=== PATIENT | female | born 1945 | race Caucasian/White ===

== ENCOUNTER → 2018-08-06 14:48 | Outpatient (CLI) | payer MEDICARE, SELFPAY | PROVIDERS: Family Provider Nurse Practitioner; PCP Nurse Practitioner; Visit Provider Nurse Practitioner | DX: Z78.0 Asymptomatic menopausal state (principal) | CPT/HCPCS: 77080 ==

== ENCOUNTER 2020-06-13 07:41 | Emergency (ER) | payer MEDICARE, SELFPAY ==
[2020-04-20 13:17] VITALS: BMI 32.0
[2020-06-13 07:42] VITALS: BP 161/88; PULSE 67; RESP 16; TEMP 36.5; O2SAT 100; BMI 29.9
--- NOTE | 2020-06-13 07:49 | RAD_ITS ---
STUDY: X-RAY CHEST REASON FOR EXAM: Female, 74 years old. Dizziness TECHNIQUE: Single AP portable view of the chest. COMPARISON: Comparison is made with prior study dated April 23, 2016. FINDINGS: EKG electrodes are seen. Mild elevation of the right hemidiaphragm. Mild increased markings at the left lung base suggestive of possible atelectasis. Normal size heart. Normal mediastinum and es. Normal visualized pulmonary arteries. There is atherosclerotic tortuosity of the aortic arch and descending thoracic aorta. There are diffuse degenerative changes of the visualized thoracic spine. Normal visualized ribs, clavicles, and shoulders. There is no demonstrated abnormality of the visualized soft tissue structures of the upper abdomen. RAD/Chest 1 View (Portable) IMPRESSION: Elevation of the right hemidiaphragm. Mild increased markings at the left lung base suggestive of left basilar atelectasis. Electronically Signed: Stew Hill, at 9:33 EDT , Service support ,
--- NOTE | 2020-06-13 07:50 | EKG12_ITS ---
Test Reason : DIZZINESS Blood Pressure : / mmHG Vent. Rate : 061 BPM Atrial Rate : 061 BPM P-R Int : 162 ms QRS Dur : 090 ms QT Int : 454 ms P-R-T Axes : 039 -09 046 degrees QTc Int : 457 ms Normal sinus rhythm Normal ECG Confirmed by SUZAN GARZA, JUAN A ([id number]), science editor DESHAWN MICHAELS ([id number]) on 06/15/2020 9:38:17 AM Referred By: CL Confirmed By:JUAN A MARES MD
--- NOTE | 2020-06-13 07:52 | CT_ITS ---
STUDY: CTA HEAD AND NECK WITH CONTRAST REASON FOR EXAM: Female, 74 years old. DIZZINESS THIS AM, NON CONTRAST BRAIN ALSO PREFORMED RADIATION DOSAGE (If Supplied By Facility): CTDIvol = ( 26.6 ) mGy, DLP = ( 1492.61 ) mGycm TECHNIQUE: CT angiography was performed with a multi-detector CT scanner. Data acquisition was obtained from the skull base through the vertex following intravenous administration of [id number] 100ML. MIP images were reconstructed from the axial data set. Post-processing of the angiographic images was performed, with multiplanar reformation and 3D reconstruction. Individualized dose optimization techniques were used for this CT. COMPARISON: No relevant priors. FINDINGS: Normal bilateral petrous carotid arteries. Normal right cavernous carotid artery with a normal supraclinoid bifurcation. Normal left cavernous carotid artery with a normal supraclinoid bifurcation. Normal right A1 segments of the anterior cerebral artery. Normal left A1 segments of the anterior cerebral artery. Normal intact anterior communicating artery (ACOM). Normal bilateral A2 segments of the anterior cerebral arteries. Normal right M1 and M2 segments of the middle cerebral arteries, with a normal M1 bifurcation. Normal left M1 and M2 segments of the middle cerebral arteries, with a normal M1 bifurcation. Normal right posterior communicating artery (PCOM). Normal left posterior communicating artery (PCOM). Normal bilateral vertebral arteries. Normal basilar artery with a normal basilar bifurcation. The visualized bilateral superior cerebellar (SCA) arteries are normal. Normal bilateral P1, P2 and visualized P3 segments of the posterior cerebral arteries. There is no demonstrated aneurysm of the [place]. There is a 1.1 cm x 1 cm hypodensity in the inferior aspect of the right frontal lobe. No surrounding mass effect is seen. AORTIC ARCH: Normal visualized aortic arch. Normal origins of the brachiocephalic, left common carotid, and left subclavian arteries. RIGHT CAROTID ARTERIES: Normal right common carotid artery (CCA). Normal right common carotid bulb. Normal origin of the right internal carotid (ICA) artery without a hemodynamically significant stenosis. Normal visualized cervical portion of the right internal carotid artery. Normal origin of the right external carotid artery (ECA). LEFT CAROTID ARTERIES: Normal left common carotid artery (CCA). Normal left common carotid bulb. Normal origin of the left internal carotid (ICA) artery without a hemodynamically significant stenosis. Normal visualized cervical portion of the left internal carotid artery. Normal origin of the left external carotid artery (ECA). VERTEBRAL ARTERIES: Normal bilateral vertebral arteries. CT/CTA Head AND Neck W/ Contrast IMPRESSION: Normal CTA Head and neck with contrast. 1.1 cm x 1 some hypodensity in the inferior aspect of the right frontal lobe. This may represent an area of old ischemic change. Electronically Signed: Stew Hill, at 9:29 EDT , Service support ,
--- NOTE | 2020-06-13 07:53 | ED.VIS.GEN ---
History of Present Illness Informant: Patient Narrative: 74-year-old female with past medical history of hyperlipidemia presents with concern for dizziness. States that upon awakening this morning and getting out of bed she became dizzy. Describes it as the room was spinning. States that when she lays down it does improve. Does admit to nausea. Patient states that she broke out in a cold sweat. Denies any chest pain, shortness of breath, vomiting, abdominal pain, headache, vision change, neck pain, fever, chills, cough. States that she does not have a history of this before in the past. Denies any drugs or alcohol. <Abdoulaye Nova - Last Filed: 06/13/20 11:13> <Ruslan Cabello - Last Filed: 06/13/20 17:14> Chief Complaint: Dizziness Past Medical History Prior records reviewed: Yes Past Medical History: - - HLD Surgical History: - - tubal ligation Lives: Spouse/ Significant Other Smoking Status: Never smoker Alcohol: None Drugs: None - Family History Maternal Family History: Family History (Last Reviewed 04/20/20 @ 13:17 by Lin Hopkins) Father Heart disease CVA (cerebral vascular accident) Family History: Reports: No pertinent history Paternal Family History: Family History (Last Reviewed 04/20/20 @ 13:17 by Lin Hopkins) Father Heart disease CVA (cerebral vascular accident) Family History: Reports: No pertinent history <Abdoulaye Nova - Last Filed: 06/13/20 11:13> - Family History Maternal Family History: Family History (Last Reviewed 04/20/20 @ 13:17 by Lin Hopkins) Father Heart disease CVA (cerebral vascular accident) Paternal Family History: Family History (Last Reviewed 04/20/20 @ 13:17 by Lin Hopkins) Father Heart disease CVA (cerebral vascular accident) <Ruslan Cabello - Last Filed: 06/13/20 17:14> - Allergies and Home Meds Allergies/Adverse Reactions: Allergies sulfamethoxazole [From Bactrim] Allergy (Mild, Verified 06/13/20 07:45) Other trimethoprim [From Bactrim] Allergy (Mild, Verified 06/13/20 07:45) Other potassium clavulanate [From Augmentin] Allergy (Verified 06/13/20 07:45) Rash amoxicillin trihydrate [From Augmentin] Adverse Reaction (Verified 06/13/20 07:45) Rash PT STATES IT WAS A MILD ITCHINESS IN THE 1970S NO BREATHING PROBLEMS Primary Care Physician: Belem Hagen NP-C [Primary Care Provider] - 2 Days Review of Systems General: Denies: Chills, Fever, Sweats Eyes: Denies: Visual changes - bilaterally, Diplopia ENT: Denies: Rhinorrhea, Sore throat Cardiovascular: Denies: Chest pain, Palpitations Respiratory: Denies: Dyspnea, Cough, Dyspnea on exertion Gastrointestinal: Denies: Abdominal pain, Nausea, Vomiting, Diarrhea, Melena, Hematochezia Genitourinary: Denies: Dysuria, Hematuria, Frequency Musculoskeletal: Denies: Back pain, Extremity Pain Skin: Denies: Rash, Wounds Neurological: Reports: - - dizziness. Denies: Headache, Weakness, Numbness <Abdoulaye Nova - Last Filed: 06/13/20 11:13> Physical Exam Vital Signs/Narrative: Vital Signs Temp Pulse Resp BP Pulse Ox 06/13/20 07:42 97.7 F L 67 16 161/88 H 100 Inital Vital Signs reviewed: Yes General: Well nourished, Well developed, No Acute Distress Head: Normocephalic, Atraumatic Eyes: Perrl, EOMI ENT: Moist mucous membranes, No rhinorrhea Neck: Supple, Nontender Cardiovascular: Regular rate, Regular rhythm, No murmurs Respiratory: No distress, CTA bilaterally, Chest nontender Abdomen: Soft, Nontender, Nondistended, Normal bowel sounds Back: Nontender, Normal Inspection Extremities: Nontender, No edema Skin: Normal color, No rash Neurological: Alert, Oriented x3, Cranial nerves II-XII grossly intact, Normal Strength, Normal Sensation Psychological: Normal affect, Normal Mood <Abdoulaye Nova - Last Filed: 06/13/20 11:13> Vital Signs/Narrative: Vital Signs Pulse Resp BP Pulse Ox 06/13/20 13:19 62 18 147/71 H 100 06/13/20 10:32 64 18 159/71 H 96 06/13/20 10:18 64 18 159/71 H 100 <Ruslan Cabello - Last Filed: 06/13/20 17:14> Diagnostic/Tx/Re-eval - Rhythm Strip Rhythm Strip: Sinus Rhythm Rate: 61 Ectopy: None - EKG Initial EKG Interpretation: Sinus Rhythm - Normal sinus rhythm at 61 bpm. IL interval of 162 ms. QTC of 457 ms. No evidence of ST elevation or depression at this time. - Medical Decision Making Patient appears well and nontoxic. Vital signs within normal limits. CT brain and CTA both negative. Patient does have almost resolution of her symptoms. Lab work within normal limits including a nonischemic EKG and negative troponin. Patient was given fluid bolus as well as Zofran. After discussion with the patient she will receive an MRI in the emergency department to rule out posterior circulation stroke. Following this she will be discharged home and follow-up with primary care physician. Impression: 1. Vertigo 2. Nausea <Abdoulaye Nova - Last Filed: 06/13/20 11:13> - Medical Decision Making Patient signed out to me to follow-up on MRI results. This did not show any evidence of acute CVA. Patient feeling much better throughout ED stay. She was able to ambulate without any issues here in the emergency department. She does feel comfortable going home at this time. Will discharge home in stable condition. She needs follow-up with her PCP. If she develops any repeat symptoms she is to return to the emerge department immediately. She understands and is agreeable with this plan. <Ruslan Cabello - Last Filed: 06/13/20 17:14> ED Disposition <Abdoulaye Nova - Last Filed: 06/13/20 11:13> <Ruslan Cabello - Last Filed: 06/13/20 17:14> - Plan for ED Patient: Disposition: Home or Assisted Living Instructions: ED Dizziness [facility] Referrals: Belem Hagen, ALCIDES-C [Primary Care Provider] - 2 Days
[2020-06-13 08:21] VITALS: BP 182/81; BP 186/76; BP 188/79; PULSE 60; PULSE 66; PULSE 74
[2020-06-13 08:26] LABS: Absolute Neutrophil Count 2.7 X10^3/uL (2.0-7.7); Basophil# 0.05 X10^3/uL; Basophil% 1.1 % (0-1); Eosinophils% 2.1 % (0-5); Hematocrit 39.1 % (37-47); Hemoglobin 12.5 g/dL (12.0-15.0); Mean Corpuscular Volume 90.7 fL (81-99); Mean Platelet Vol. 9.3 fl (6.2-12.0); Monocyte# 0.36 X10^3/uL; Monocyte% 7.7 % (0-10); NRBC Flagged by Analyzer 0 % (0-5); Neutrophil # 2.74 X10^3/uL (2.7-7.7); Neutrophil % 58.9 % (47-70); Platelet Count 337 K/mm3 (150-450); RBC Distribution Width CV 13.7 % (11.6-14.6); RBC Distribution Width SD 44.9 fl (35.1-43.9); Red Blood Count 4.31 M/mm3 (4.2-5.4); White Blood Count 4.7 K/mm3 (4.4-11.0)
[2020-06-13] MEDS: 0.9% Normal Saline 1,000 ML 1000 ML IV (08:31)
[2020-06-13] MEDS: Ondansetron 4 MG/2 ML Vial IV (08:31)
[2020-06-13 08:42] LABS: AST(SGOT) 23 U/L (15-37); Alanine Aminotransfer ALT/SGPT 28 U/L (13-56); Albumin, Serum 3.6 g/dL (3.2-5.0); Alkaline Phosphatase 31 U/L (45-117); Anion Gap 4 (5-15); BUN 18 mg/dL (7-18); BUN/Creat Ratio 13.6 RATIO (10-20); Calcium,Total 8.6 mg/dL (8.5-10.1); Chloride 109 mmol/L (98-107); Creatinine, Serum 1.32 mg/dL (0.55-1.02); EST Glomerular Filtration Rate 42 mL/min (>60); Est Glom Filt Rate - Afr Amer 51 mL/min (>60); Estimated Creatinine Clearance 34.16 ml/min; Globulin 3.7 g/dL (2.2-4.2); Glucose 105 mg/dL (74-106); Protein, Total 7.3 g/dL (6.4-8.2); Sodium Level 140 mmol/L (136-145)
[2020-06-13 09:31] LABS: Bacteria 0 SEEN /hpf (None Seen); Mucous, Urine 0 SEEN /hpf (<or=2+); Red Blood Cells-Urine 0 SEEN /hpf (0-5); Squamous Epithelial Cells - UA 0 SEEN /hpf (5-10); White Blood Cells 0 SEEN /hpf (0-5)
[2020-06-13 09:32] LABS: Color, Urine Yellow (Yellow); Glucose, Dipstick Normal (Normal); Ketone-Dipstick Negative (Negative); Leukocyte Esterase-Dipstick Negative /ul (Negative); Nitrite-Dipstick Negative (Negative); Occult Blood-Urine Negative /ul (Negative); Protein-Dipstick Negative (Negative); Specific Gravity, Urine 1.005 (1.002-1.030); Urine Bilirubin Dipstick Negative (Negative); Urine Clarity Clear (Clear); Urine Urobilinogen Normal (Normal)
[2020-06-13 10:18] VITALS: BP 159/71; PULSE 64; RESP 18; O2SAT 100
--- NOTE | 2020-06-13 10:19 | MRI_ITS ---
STUDY: MRI BRAIN WITHOUT CONTRAST REASON FOR EXAM: Female, 74 years old. dizziness SINCE THIS MORNING (RESOLVED NOW) TECHNIQUE: Standardized multiplanar fat and water weighted pulse sequences were obtained. COMPARISON: None. FINDINGS: Normal size of the ventricles and extra-axial spaces for the patient''s age. Normal white matter tracts of the supratentorial brain. There is no evidence for recent intracranial ischemia or other cause of cytotoxic edema on diffusion weighted imaging (DWI). Normal T2* images of the brain without demonstrated susceptibility artifact. There is no demonstrated hemosiderin stain. Normal bilateral basal ganglia. Normal thalami. There is no extra-axial fluid accumulation. Normal flow voids within the major intracranial circulation suggesting patency by spin echo criteria. Normal sella turcica, pituitary gland, infundibular stalk, optic chiasm and hypothalamus. Normal tectal plate and pineal gland. Normal midbrain, derek and medulla. Normal cerebellum. Normal basal cisterns. Normal bilateral temporal bones. Normal bilateral internal auditory canals. No demonstrated orbital abnormality, within the constraints of a routine brain study. Opacification of the left frontal sinus consistent with sinusitis or polyp. Normal calvarium and skull base. Normal visualized soft tissue structures. Normal visualized upper cervical spine. MRI/Brain without Contrast IMPRESSION: Normal unenhanced MRI of the brain. Electronically Signed: Faizan Hodges MD at 12:57 EDT Tel , Service support ,
[2020-06-13 10:32] VITALS: BP 159/71; PULSE 64; RESP 18; O2SAT 96
[2020-06-13 13:19] VITALS: BP 147/71; PULSE 62; RESP 18; O2SAT 100
[2020-06-13 14:08] VITALS: BP 141/76; PULSE 72; RESP 18; O2SAT 99
== END 2020-06-13 14:18 | disposition home or self-care (01) ==
PROVIDERS: Emergency Provider Emergency Medicine; PCP Nurse Practitioner
DX: R42 Dizziness and giddiness (principal); R11.0 Nausea
CPT/HCPCS: 70496; 70498; 70551; 71045; 80053; 81001; 84484; 85025; 93005; 96361; 96374; 96375; 99285; J7030; Q9967; A4216; J2405

== ENCOUNTER → 2020-08-08 | Outpatient (CLI) | payer MEDICARE, SELFPAY ==
[2020-08-08 14:14] VITALS: BMI 31.8
== END | disposition home or self-care (01) ==
LOC: LABSPEC 17:27
PROVIDERS: PCP Nurse Practitioner; Referring Provider Nurse Practitioner Women's Health; Visit Provider Nurse Practitioner Women's Health
DX: N39.0 Urinary tract infection, site not specified (principal); N89.8 Other specified noninflammatory disorders of vagina
CPT/HCPCS: 87070; 87086; 87088; 87205

== ENCOUNTER → 2020-10-16 07:17 | Outpatient (CLI) | payer MEDICARE, SELFPAY ==
[2020-08-08 14:14] VITALS: BMI 31.8
[2020-10-16 08:57] LABS: Cholesterol 129 mg/dL (200); High Density Lipoprotein 62 mg/dL; Triglycerides 101 mg/dL; Very Low Density Lipoprotein 20 mg/dL (5-40)
== END ==
PROVIDERS: PCP Nurse Practitioner; Referring Provider Nurse Practitioner; Visit Provider Nurse Practitioner
DX: E78.5 Hyperlipidemia, unspecified (principal); R42 Dizziness and giddiness
CPT/HCPCS: 36415; 80061

== ENCOUNTER → 2021-02-12 07:22 | Outpatient (CLI) | payer MEDICARE, SELFPAY ==
[2020-11-16 10:49] VITALS: BMI 32.1
[2021-02-12 08:01] LABS: Absolute Neutrophil Count 2.8 X10^3/uL (2.0-7.7); Basophil# 0.05 X10^3/uL; Eosinophil# 0.13 X10^3/uL; Eosinophils% 2.5 % (0-5); Hematocrit 39.3 % (37-47); Hemoglobin 12.3 g/dL (12.0-15.0); Lymphocyte % 35.2 % (19-41); Mean Corp Hgb Conc 31.3 g/dL (32-36); Mean Corpuscular Hgb 28.4 pg (27.0-32.0); Mean Corpuscular Volume 90.8 fL (81-99); Mean Platelet Vol. 9.5 fl (6.2-12.0); Monocyte# 0.38 X10^3/uL; Monocyte% 7.4 % (0-10); NRBC Flagged by Analyzer 0 % (0-5); Neutrophil # 2.75 X10^3/uL (2.7-7.7); Neutrophil % 53.7 % (47-70); Platelet Count 377 K/mm3 (150-450); RBC Distribution Width CV 13.8 % (11.6-14.6); RBC Distribution Width SD 45.9 fl (35.1-43.9); Red Blood Count 4.33 M/mm3 (4.2-5.4); White Blood Count 5.1 K/mm3 (4.4-11.0)
[2021-02-12 08:37] LABS: AST(SGOT) 20 U/L (15-37); Alanine Aminotransfer ALT/SGPT 26 U/L (13-56); Albumin, Serum 3.5 g/dL (3.2-5.0); Alkaline Phosphatase 31 U/L (45-117); Anion Gap 4 (5-15); BUN 20 mg/dL (7-18); BUN/Creat Ratio 17.4 RATIO (10-20); Calcium,Total 8.2 mg/dL (8.5-10.1); Chloride 111 mmol/L (98-107); Creatinine, Serum 1.15 mg/dL (0.55-1.02); EST Glomerular Filtration Rate 49 mL/min (>60); Est Glom Filt Rate - Afr Amer 59 mL/min (>60); Globulin 3.4 g/dL (2.2-4.2); Glucose 93 mg/dL (74-106); Potassium 4.1 mmol/L (3.5-5.1); Protein, Total 6.9 g/dL (6.4-8.2); Sodium Level 142 mmol/L (136-145); Thyroid Stim Hormone (TSH) 5.32 uIU/mL (0.358-3.74)
[2021-02-12 09:03] LABS: Hemoglobin A1c 5.4 % (3.8-5.6)
== END ==
PROVIDERS: PCP Nurse Practitioner; Referring Provider Nurse Practitioner; Visit Provider Nurse Practitioner
DX: R94.6 Abnormal results of thyroid function studies (principal); R73.01 Impaired fasting glucose
CPT/HCPCS: 36415; 80053; 83036; 84443; 85025

== ENCOUNTER → 2021-02-28 10:46 | Outpatient (CLI) | payer MEDICARE, SELFPAY ==
[2021-02-15 09:41] VITALS: BMI 32.3
--- NOTE | 2021-02-28 10:55 | BD_ITS ---
STUDY: DUAL ENERGY X-RAY ABSORPTIOMETRY / DXA REASON FOR EXAM: Female, 75 years old. [id number]. The patient is postmenopausal. No loss of height. TECHNIQUE: Bone Mineral Density (BMD) measurements of lumbar spine and bilateral hips were obtained. COMPARISON: Comparison is made with prior study dated 08/06/2018. FINDINGS: Lumbar Spine (L1-L4): g/cm2 (0.989) / T-score (-1.5) / Z-score (0.2) Findings are suggestive of osteopenia with a low fracture risk. Left Femur Total: g/cm2 (1.012) / T-score (0.0) / Z-score (1.7) Left Femoral Neck: g/cm2 (0.835) / T-score (-1.5) / Z-score (0.4) Right Femur Total: g/cm2 (0.977) / T-score (-0.2) / Z-score (1.4) Right Femoral Neck: g/cm2 (0.804) / T-score (-1.7) / Z-score (0.2) The T-Scores on the most recent prior examination were: Lumbar Spine (L1-L4): There has been improvement of bone density since the previous examination. Left Femur Total: which represents an improvement of 3.2%. Right Femur Total: which represents a worsening of 0.2%. BD/Dexa Bone Density Study IMPRESSION: The patient is considered osteopenic as outlined below according to World Jorje Organization (WHO) criteria with a moderate fracture risk. There has been improvement of bone density since the previous examination. Reference Information: The T-score is the number of standard deviations above or below the standard which is normal for young adults at their peak bone mineral density. The World Health Organization (WHO) interprets the T-scores as follows: Above -1 Normal bone density Between -1 and -2.5 Osteopenia Equal to / or below -2.5 Osteoporosis As a practical clinical guideline, osteopenia may be graded as follows: Mild -1 through -1.5 Moderate -1.6 through -2.0 Severe -2.1 through -2.4 The Z-score is the number of standard deviations above or below age-matched controls. A Z-score of less than -1.5 would be considered abnormal. References: 1. NIH Osteoporosis and Related Bone Diseases www osteo.org 2. International Society for Clinical Densitometry www iscd.org 3. National Osteoporosis Foundation www nof.org Electronically Signed: Stew Hill MD at 15:49 EDT , Service support ,
== END ==
PROVIDERS: PCP Nurse Practitioner; Referring Provider Nurse Practitioner; Visit Provider Nurse Practitioner
DX: Z78.0 Asymptomatic menopausal state (principal)
CPT/HCPCS: 77080

== ENCOUNTER 2021-04-14 19:03 | Emergency (ER) | payer MEDICARE, SELFPAY ==
[2021-02-15 09:41] VITALS: BMI 32.3
[2021-04-14 19:03] VITALS: BP 205/141; PULSE 77; RESP 18; TEMP 36.4; O2SAT 99; BMI 33.7
[2021-04-14] MEDS: HYDROcodone Bitartrate/Apap 5/325 Tablet PO (20:11)
[2021-04-14 20:13] VITALS: BP 183/92
--- NOTE | 2021-04-14 20:15 | RAD_ITS ---
STUDY: X-RAY - UNILATERAL RIBS ( RIGHT ) WITH CHEST REASON FOR EXAM: Female, 75 years old. fall trauma possible rib fracture chest pain TECHNIQUE - RIBS: 4 view(s) of the ribs. TECHNIQUE - CHEST: Frontal view of the chest COMPARISON: 13 June 2020 FINDINGS - RIBS: There are no displaced rib fractures. FINDINGS - CHEST: The lungs are clear and expanded. There is no demonstrated pleural abnormality. Normal size heart. Normal mediastinum and es. Normal visualized pulmonary arteries. Normal visualized aortic arch and descending thoracic aorta. Normal visualized thoracic spine. Normal visualized ribs, clavicles, and shoulders. There is no demonstrated abnormality of the visualized soft tissue structures of the upper abdomen. RAD/Ribs Uni Min 3V w/PA Chest IMPRESSION: No pneumothorax. No displaced rib fractures. Normal chest. Electronically Signed: Juni Macias MD at 20:59 EDT Tel , Service support ,
--- NOTE | 2021-04-14 21:25 | EDS_ITS ---
HPI HPI - Fall History of Present Illness Chief Complaint: Fall Informant: patient Occured/Mechanism Occurred: Days Narrative: Patient presents after falling at the local [employer] store 2 days ago and striking her right lateral ribs. Pain/Injury Pain Location: chest Quality of Pain: Sharp and Aching Current Severity: Mild Maximum Severity: Moderate Worsened by: Movement Narrative Narrative: Patient was shopping at a local store 2 days ago when she rolled her ankle and fell striking her right ribs. She continues to have significant pain especially with movement. She denies any other injury. She denies shortness of breath. PFSH PFS Medical History GERD (gastroesophageal reflux disease) Hyperlipidemia Osteoporosis Vertigo Vision loss of left eye Vision loss of right eye Home Medications estradiol 1 g VAGINAL 2XW 12/17/17 [History Last Taken Unknown] glucosamine HCl 500 mg tablet 500 mg PO DAILY tab 01/05/19 [History Last Taken Unknown] cranberry 500 mg capsule 500 mg PO BID cap 07/20/20 [History Last Taken Unknown] oxyquinoline 0.025 %-sodium lauryl sulfate 0.01 % vaginal gel ea VAGINAL 07/20/20 [History Last Taken Unknown] triamcinolone acetonide 0.5 % topical cream 1 applic TOPICAL BID 7 Days #15 g 07/20/20 [Rx Last Taken Unknown] hydrocodone-acetaminophen 1 tab PO Q6H PRN 3 Days #10 tab 04/14/21 [Rx Last Taken Unknown] Allergy/AdvReac Type Severity Reaction Status Date / Time sulfamethoxazole Allergy Mild Other Verified 04/14/21 19:05 [From Bactrim] trimethoprim [From Bactrim] Allergy Mild Other Verified 04/14/21 19:05 potassium clavulanate Allergy Rash Verified 04/14/21 19:05 [From Augmentin] amoxicillin trihydrate AdvReac Rash Verified 04/14/21 19:05 [From Augmentin] Family History Father Heart disease CVA (cerebral vascular accident) Surgical History H/O tubal ligation Social History Smoking Status: Never smoker alcohol intake: current details: social substance use type: does not use caffeine: Yes frequency: 1-2 times per week seatbelt use: always do you feel safe at home: Yes 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 ROS ROS ED Constitutional Constitutional ED: Denies chills or fever(s) Eyes Eyes: Denies change in vision ENT ENT ED: Denies sore throat Cardiovascular Cardiovascular: Reports chest pain Respiratory/Chest Respiratory/Chest: Denies cough or dyspnea Gastrointestinal Gastrointestinal: Denies abdominal pain, diarrhea, nausea or vomiting Genitourinary Genitourinary ED: Denies dysuria Musculoskeletal Musculoskeletal: Reports arthralgias; Denies back pain Integumentary Denies rash Neurologic Neurologic: Denies headache(s) or weakness Psychiatric Psychiatric: Denies anxiety or depression Endocrine Endocrinology: Denies polydipsia or polyuria Allergic/Immunologic Allergic/Immunologic ED: Denies urticaria EXAM Physical Exam Const Vital Signs: 04/14/21 19:03 04/14/21 19:48 04/14/21 20:13 Temperature 97.6 F L Temperature Source Temporal Pulse Rate 77 Respiratory Rate 18 Blood Pressure 205/141 H 183/92 H Blood Pressure Mean 162 122 Pulse Ox 99 Oxygen Delivery Method Room Air Room Air Positive well nourished and well developed General Appearance ED: well developed HEENT Reports normocephalic and head/scalp atraumatic Eyes PERRL and EOMs intact bilaterally Neck supple Neck Narrative: No C-spine tenderness. Chest Wall inspection of chest normal Chest Narrative: Tenderness along the right anterior lateral lower chest wall. No crepitus. No abrasions or ecchymoses. Resp normal respiratory effort and clear to auscultation bilaterally Cardio regular rate and regular rhythm GI normal to inspection, nondistended, normoactive bowel sounds Palpation: soft Back/Spine no CVA tenderness Extremity Extremity Narrative: Superficial healing abrasion to the right palm. Mild muscular tenderness throughout the right upper extremity. Full range of motion. Strong distal pulses. Neuro oriented x3 and no sensory deficits noted Sensorium / Orientation: alert Psych mental status grossly normal Skin no rashes or lesions noted MDM MDM MDM Narrative Medical decision making narrative: Patient was given a dose of Benton for pain. Rib series with chest x-ray is obtained. Lab Data Attestation: I reviewed the patient's lab results. Radiography Diagnostic Testing: Radiology Impression Ribs w/Chest X-Ray 04/14/21 20:15 IMPRESSION: No pneumothorax. No displaced rib fractures. Normal chest. Electronically Signed: Juni Macias MD at 20:59 EDT Tel , Service support , Treatment and Re-Evaluation Comments:: Rib series with chest x-ray is reviewed. Per my interpretation no obvious displaced rib fracture or pneumothorax. Radiologist interpretation is reviewed. Test results discussed with the patient. She will be given a prescription for Benton. Patient had significantly elevated blood pressure on arrival. On repeat evaluation this is dropped approximately 25 systolic points. Patient states she does get her blood pressure checked regularly and is not normally elevated. On review of prior ER visits blood pressures ranged anywhere from 120-180s systolic. She is advised to monitor this at home and follow-up with her PCP. Discharge Plan Triage Chief Complaint: Fall ED Provider: Monet Monaco Dx/Rx/DC Orders Clinical Impression: Contusion of rib on right side, Hypertension Instructions: ED Contusion, Rib Prescriptions: New hydrocodone-acetaminophen 5-325 mg tablet 1 tab PO Q6H PRN (Reason: pain) 3 Days Qty: 10 RF: 0 No Action estradiol [Estrace] 0.01 % (0.1 mg/gram) cream 1 g VAGINAL 2XW RF: 0 glucosamine HCl 500 mg tablet 500 mg PO DAILY RF: 0 Trimo-Colon Jelly 0.025-0.01 % gel VAGINAL RF: 0 triamcinolone acetonide 0.5 % cream 1 applic topical BID 7 Days Qty: 15 RF: 2 cranberry 500 mg capsule 500 mg PO BID RF: 0 Primary Care Provider: Belem Hagen NP Referrals: Belem Hagen INSURANCE INVESTIGATOR, INSURANCE INVESTIGATOR-C [Primary Care Provider] - 1-2 Weeks Disposition Disposition: Home, self care
[2021-04-14 21:45] VITALS: BP 174/82; PULSE 74; RESP 16; O2SAT 97
== END 2021-04-14 21:53 | disposition home or self-care (01) ==
PROVIDERS: Emergency Provider Emergency Medicine; PCP Nurse Practitioner
DX: S20.211A Contusion of right front wall of thorax, initial encounter (principal); I10 Essential (primary) hypertension; K21.9 Gastro-esophageal reflux disease without esophagitis; E78.5 Hyperlipidemia, unspecified; W18.30XA Fall on same level, unspecified, initial encounter; Y93.89 Activity, other specified; Y92.512 Supermarket, store or market as the place of occurrence of the external cause; Y99.8 Other external cause status
CPT/HCPCS: 71101; 99282

== ENCOUNTER → 2021-06-05 07:19 | Outpatient (CLI) | payer MEDICARE, SELFPAY ==
[2021-05-21 09:22] VITALS: BMI 33.7
[2021-06-05 08:21] LABS: AST(SGOT) 23 U/L (15-37); Alanine Aminotransfer ALT/SGPT 27 U/L (13-56); Albumin, Serum 3.4 g/dL (3.2-5.0); Alkaline Phosphatase 35 U/L (45-117); Anion Gap 5 (5-15); BUN 19 mg/dL (7-18); BUN/Creat Ratio 15.1 RATIO (10-20); Calcium,Total 8.2 mg/dL (8.5-10.1); Chloride 109 mmol/L (98-107); Creatinine, Serum 1.26 mg/dL (0.55-1.02); EST Glomerular Filtration Rate 44 mL/min (>60); Est Glom Filt Rate - Afr Amer 53 mL/min (>60); Free T3 2.4 pg/mL (2.18-3.98); Globulin 3.4 g/dL (2.2-4.2); Glucose 91 mg/dL (74-106); Protein, Total 6.8 g/dL (6.4-8.2); Sodium Level 141 mmol/L (136-145); T4 Free Direct 0.85 ng/dL (0.76-1.46); Thyroid Stim Hormone (TSH) 5.77 uIU/mL (0.358-3.74)
== END ==
PROVIDERS: PCP Nurse Practitioner; Referring Provider Nurse Practitioner; Visit Provider Nurse Practitioner
DX: N18.31 Chronic kidney disease, stage 3a (principal); R94.6 Abnormal results of thyroid function studies
CPT/HCPCS: 36415; 80053; 84439; 84443; 84481

== ENCOUNTER → 2021-06-12 09:14 | Outpatient (CLI) | payer MEDICARE, SELFPAY ==
[2021-05-21 09:22] VITALS: BMI 33.7
--- NOTE | 2021-06-12 09:17 | US_ITS ---
STUDY: RENAL ULTRASOUND - COMPLETE REASON FOR EXAM: Female, 75 years old. Stage III chronic kidney disease. TECHNIQUE: Ultrasound evaluation of the kidneys was performed with real-time and static brush-scale imaging. COMPARISON: Renal ultrasound, 11/14/2017. FINDINGS: RIGHT KIDNEY: Normal location of the right kidney, which is normal in size. The right kidney measures 10 cm. There is a normal cortex of the right kidney. The renal cortex measures 1.1 cm. There is a 4 mm hyperechoic focus There are no right renal calculi. There is no right hydronephrosis. DISTAL RIGHT URETER: There is non-visualization of the distal right ureter. There is no demonstrated right ureterovesical junction calculus. There is no demonstrated right ureteral jet. LEFT KIDNEY: Normal location of the left kidney, which is normal in size. The left kidney measures 10.9 cm. There is a normal cortex of the left kidney. The renal cortex measures 1.6 cm. There is a 5.3 x 5.9 x 5.3 cm simple cyst in the lower pole. There are no left renal calculi. There is no left hydronephrosis. DISTAL LEFT URETER: There is non-visualization of the distal left ureter. There is no demonstrated left ureterovesical junction calculus. There is no demonstrated left ureteral jet. BLADDER: The distended urinary bladder has a volume of 144 ml. There is a normal wall thickness of the distended urinary bladder. There is no demonstrated mass within the urinary bladder. There are no demonstrated bladder calculi. US/Kidney and Bladder IMPRESSION: 1. Large left renal cyst unchanged from prior exam. This appears simple and requires no further follow-up. 2. Small echogenic focus in the right kidney. Question angiomyolipoma. This is unchanged from the prior study. 3. Normal urinary bladder. Electronically Signed: Jem Brice DO at 23:02 EDT Tel [phone], Service support ,
== END ==
PROVIDERS: PCP Nurse Practitioner; Referring Provider Nurse Practitioner; Visit Provider Nurse Practitioner
DX: N18.31 Chronic kidney disease, stage 3a (principal)
CPT/HCPCS: 76770

== ENCOUNTER → 2021-08-31 07:20 | Outpatient (CLI) | payer MEDICARE, SELFPAY ==
[2021-08-31 08:22] LABS: ALB/GLOB Ratio 0.9 RATIO (0.9-2.4); AST(SGOT) 20 U/L (15-37); Alanine Aminotransfer ALT/SGPT 26 U/L (13-56); Albumin, Serum 3.4 g/dL (3.2-5.0); Alkaline Phosphatase 30 U/L (45-117); Anion Gap 4 (5-15); BUN 22 mg/dL (7-18); BUN/Creat Ratio 16.3 RATIO (10-20); Calcium,Total 8.6 mg/dL (8.5-10.1); Chloride 108 mmol/L (98-107); Creatinine, Serum 1.35 mg/dL (0.55-1.02); EST Glomerular Filtration Rate 41 mL/min (>60); Est Glom Filt Rate - Afr Amer 49 mL/min (>60); Globulin 3.7 g/dL (2.2-4.2); Glucose 101 mg/dL (74-106); Protein, Total 7.1 g/dL (6.4-8.2); Sodium Level 141 mmol/L (136-145)
== END ==
PROVIDERS: PCP Nurse Practitioner; Referring Provider Nurse Practitioner; Visit Provider Nurse Practitioner
DX: N18.31 Chronic kidney disease, stage 3a (principal)
CPT/HCPCS: 36415; 80053

== ENCOUNTER 2021-12-03 07:23 | Outpatient (CLI) | payer MEDICARE, SELFPAY ==
[2021-12-03 07:50] LABS: Absolute Lymphocyte Count 1.88 X10^3/uL (0.83-4.51); Absolute Neutrophil Count 3.5 X10^3/uL (2.0-7.7); Basophil# 0.07 X10^3/uL; Basophil% 1.2 % (0-1); Eosinophil# 0.16 X10^3/uL; Eosinophils% 2.6 % (0-5); Hematocrit 40.9 % (37-47); Hemoglobin 12.9 g/dL (12.0-15.0); Lymphocyte # 1.88 X10^3/ul (0.83-4.51); Mean Corp Hgb Conc 31.5 g/dL (32-36); Mean Corpuscular Hgb 26.8 pg (27.0-32.0); Mean Corpuscular Volume 84.9 fL (81-99); Mean Platelet Vol. 9.1 fl (6.2-12.0); Monocyte# 0.46 X10^3/uL; Monocyte% 7.6 % (0-10); NRBC Flagged by Analyzer 0 % (0-5); Neutrophil # 3.49 X10^3/uL (2.7-7.7); Neutrophil % 57.4 % (47-70); Platelet Count 344 K/mm3 (150-450); RBC Distribution Width CV 14.9 % (11.6-14.6); RBC Distribution Width SD 46.5 fl (35.1-43.9); Red Blood Count 4.82 M/mm3 (4.2-5.4); White Blood Count 6.1 K/mm3 (4.4-11.0)
[2021-12-03 08:34] LABS: ALB/GLOB Ratio 0.8 RATIO (0.9-2.4); AST(SGOT) 20 U/L (15-37); Alanine Aminotransfer ALT/SGPT 27 U/L (13-56); Albumin, Serum 3.3 g/dL (3.2-5.0); Alkaline Phosphatase 26 U/L (45-117); Anion Gap 5 (5-15); BUN 22 mg/dL (7-18); Calcium,Total 8.8 mg/dL (8.5-10.1); Chloride 110 mmol/L (98-107); Cholesterol 130 mg/dL (200); Creatinine, Serum 1.22 mg/dL (0.55-1.02); EST Glomerular Filtration Rate 46 mL/min (>60); Est Glom Filt Rate - Afr Amer 55 mL/min (>60); Glucose 95 mg/dL (74-106); High Density Lipoprotein 78 mg/dL; Potassium 4.2 mmol/L (3.5-5.1); Protein, Total 7.3 g/dL (6.4-8.2); Sodium Level 140 mmol/L (136-145); Thyroid Stim Hormone (TSH) 6.34 uIU/mL (0.358-3.74); Triglycerides 72 mg/dL; Very Low Density Lipoprotein 14 mg/dL (5-40)
== END 2021-12-03 23:59 | disposition short-term general hospital (02) ==
LOC: LAB 07:26
PROVIDERS: PCP Nurse Practitioner; Referring Provider Nurse Practitioner; Visit Provider Nurse Practitioner
DX: I12.9 Hypertensive chronic kidney disease with stage 1 through stage 4 chronic kidney disease, or unspecified chronic kidney disease (principal); N18.31 Chronic kidney disease, stage 3a; R79.89 Other specified abnormal findings of blood chemistry; E78.5 Hyperlipidemia, unspecified
CPT/HCPCS: 36415; 80053; 80061; 84443; 85025

== ENCOUNTER 2021-12-12 10:33 | Outpatient (CLI) | payer MEDICARE, SELFPAY ==
[2021-12-12 12:50] LABS: Vitamin D,25 Hydroxy 29.8 ng/mL
[2021-12-12 13:00] LABS: PTHIN 15.7 pg/mL (18.4-80.1)
== END 2021-12-12 23:59 | disposition short-term general hospital (02) ==
LOC: POLAB3 10:34
PROVIDERS: PCP Nurse Practitioner; Visit Provider Internal Medicine Nephrology
DX: E83.51 Hypocalcemia (principal)
CPT/HCPCS: 36415; 82306; 83970

== ENCOUNTER 2022-01-26 07:17 | Outpatient (CLI) | payer MEDICARE, SELFPAY ==
[2022-01-26 07:57] LABS: Absolute Lymphocyte Count 1.63 X10^3/uL (0.83-4.51); Absolute Neutrophil Count 2.7 X10^3/uL (2.0-7.7); Basophil# 0.05 X10^3/uL; Eosinophil# 0.15 X10^3/uL; Hematocrit 39.2 % (37-47); Hemoglobin 12.5 g/dL (12.0-15.0); Lymphocyte # 1.63 X10^3/ul (0.83-4.51); Lymphocyte % 32.9 % (19-41); Mean Corp Hgb Conc 31.9 g/dL (32-36); Mean Corpuscular Hgb 26.5 pg (27.0-32.0); Mean Corpuscular Volume 83.2 fL (81-99); Mean Platelet Vol. 9.3 fl (6.2-12.0); Monocyte# 0.44 X10^3/uL; Monocyte% 8.9 % (0-10); NRBC Flagged by Analyzer 0 % (0-5); Neutrophil # 2.67 X10^3/uL (2.7-7.7); Platelet Count 314 K/mm3 (150-450); RBC Distribution Width CV 14.5 % (11.6-14.6); RBC Distribution Width SD 43.5 fl (35.1-43.9); Red Blood Count 4.71 M/mm3 (4.2-5.4)
[2022-01-26 08:31] LABS: Cholesterol 125 mg/dL (200); High Density Lipoprotein 64 mg/dL; Thyroid Stim Hormone (TSH) 3.79 uIU/mL (0.358-3.74); Triglycerides 89 mg/dL; Very Low Density Lipoprotein 18 mg/dL (5-40)
== END 2022-01-26 23:59 | disposition home or self-care (01) ==
LOC: LAB 07:22
PROVIDERS: PCP Nurse Practitioner; Referring Provider Nurse Practitioner; Visit Provider Nurse Practitioner
DX: E78.1 Pure hyperglyceridemia (principal); R79.89 Other specified abnormal findings of blood chemistry; D72.824 Basophilia
CPT/HCPCS: 36415; 80061; 84443; 85025

== ENCOUNTER 2022-02-26 09:31 | Outpatient (CLI) | payer MEDICARE, SELFPAY | END 2022-02-26 23:59 | disposition home or self-care (01) | LOC: LABSPEC 09:32 | PROVIDERS: PCP Nurse Practitioner; Referring Provider Nurse Practitioner Women's Health; Visit Provider Nurse Practitioner Women's Health | DX: R30.9 Painful micturition, unspecified (principal) | CPT/HCPCS: 87077; 87086; 87088; 87186 ==

== ENCOUNTER 2022-02-28 13:18 | Emergency (ER) | payer MEDICARE, SELFPAY ==
[2022-02-28 13:20] VITALS: BP 150/84; PULSE 87; RESP 14; TEMP 36.3; O2SAT 100; BMI 32.1
--- NOTE | 2022-02-28 13:50 | EKG12_ITS ---
Test Reason : Blood Pressure : / mmHG Vent. Rate : 072 BPM Atrial Rate : 072 BPM P-R Int : 150 ms QRS Dur : 096 ms QT Int : 408 ms P-R-T Axes : 048 -18 083 degrees QTc Int : 446 ms Normal sinus rhythm Normal ECG Confirmed by SUZAN GARZA, JUAN A ([id number]), editor farm journal DESHAWN MICHAELS ([id number]) on 03/01/2022 2:45:17 PM Referred By: NICHOLAS Confirmed By:JUAN A MARES MD
--- NOTE | 2022-02-28 14:02 | EDS_ITS ---
HPI <Dr. Monet Monaco MD - Last Filed: 02/28/22 16:02> History of Present Illness Chief Complaint: Dizziness <CRISTINE SIMS - Last Filed: 02/28/22 15:54> History of Present Illness Informant: patient Onset/Context/Timing Onset: Today (06) Context: Sudden Onset Narrative Narrative: Patient presents secondary to dizziness and nausea that began this morning at 06 30. Patient reports history of similar episodes with vertigo. Patient states she was diagnosed with vertigo 1/2 to 2 years ago, and has prescription of meclizine at home. Patient took a dose of meclizine at 1230, and at this time, reports significant improvement in both dizziness and nausea. Patient states with her vertigo she feels as if she is spinning. Patient denies headache, shortness of breath, abdominal pain, or vomiting. Patient states that she felt flushed earlier today and also has felt chest tightness yesterday and today. Prior similar symptoms: Yes Recent Illness/Hospitalization: Yes (Current treatment for UTI.) [facility] <Dr. Monet Monaco MD - Last Filed: 02/28/22 16:02> [facility] Medical History GERD (gastroesophageal reflux disease) Hyperlipidemia Osteoporosis Vertigo Vision loss of left eye Vision loss of right eye Home Medications estradiol 1 g VAGINAL MOFR 12/17/17 [History Last Taken 02/25/22] glucosamine HCl 500 mg tablet 500 mg PO DAILY tab 01/05/19 [History Last Taken 02/27/22] cranberry 500 mg capsule 1,000 mg PO BID cap 07/20/20 [History Last Taken 02/27/22] triamcinolone acetonide 0.5 % topical cream 1 applic TOPICAL BID 7 Days #15 g 07/20/20 [Rx Last Taken 02/26/22] levothyroxine 25 mcg tablet 25 mcg PO DAILY 02/25/22 [History Last Taken 02/28/22] ciprofloxacin HCl 500 mg tablet 500 mg PO BID 7 Days #14 tab 02/27/22 [Rx Last Taken 02/28/22] fenofibric acid (choline) 135 mg PO DAILY 02/28/22 [History Last Taken 02/27/22] oxyquinoline-sod.lauryl sulfat [Trimo-Colon Jelly] VAGINAL WE 02/28/22 [History Last Taken 02/27/22] Allergy/AdvReac Type Severity Reaction Status Date / Time sulfamethoxazole Allergy Mild Other Verified 02/28/22 13:22 [From Bactrim] trimethoprim [From Bactrim] Allergy Mild Other Verified 02/28/22 13:22 potassium clavulanate Allergy Rash Verified 02/28/22 13:22 [From Augmentin] amoxicillin trihydrate AdvReac Rash Verified 02/28/22 13:22 [From Augmentin] Family History Father Heart disease CVA (cerebral vascular accident) Surgical History H/O tubal ligation Social History Smoking Status: Never smoker alcohol intake: current details: social substance use type: does not use caffeine: Yes frequency: 1-2 times per week seatbelt use: always do you feel safe at home: Yes 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 <CRISTINE SIMS - Last Filed: 02/28/22 15:54> ROS ED Constitutional Constitutional ED: Denies chills, fever(s), sweats or weight loss Eyes Eyes: Denies blurry vision, change in vision or diplopia ENT ENT ED: Denies ear pain or sore throat Cardiovascular Cardiovascular: Reports other Details: Chest tightness across upper chest. Respiratory/Chest Respiratory/Chest: Denies cough or dyspnea Gastrointestinal Gastrointestinal: Reports nausea; Denies abdominal pain, constipation, diarrhea or vomiting Genitourinary Genitourinary ED: Denies dysuria, hematuria or urinary frequency Musculoskeletal Musculoskeletal: Denies myalgias Integumentary Denies rash Neurologic Neurologic: Denies headache(s), paresthesias or weakness Psychiatric Psychiatric: Denies anxiety or depression Endocrine Endocrinology: Denies polydipsia, polyphagia or polyuria Allergic/Immunologic Allergic/Immunologic ED: Denies mouth swelling, tongue swelling or urticaria EXAM <Dr. Monet Monaco MD - Last Filed: 02/28/22 16:02> Physical Exam Const Vital Signs: 02/28/22 13:20 02/28/22 14:24 02/28/22 15:23 Temperature 97.3 F L Temperature Source Temporal Pulse Rate 87 60 Respiratory Rate 14 15 Respiratory Effort Normal Respiratory Pattern Normal Blood Pressure 150/84 H 154/91 H Blood Pressure Mean 106 112 Pulse Ox 100 96 Oxygen Delivery Method Room Air Room Air 02/28/22 15:57 Temperature Temperature Source Pulse Rate Respiratory Rate 18 Respiratory Effort Respiratory Pattern Blood Pressure 154/91 H Blood Pressure Mean Pulse Ox Oxygen Delivery Method <CRISTINE SIMS - Last Filed: 02/28/22 15:54> Physical Exam Const Vital Signs: 02/28/22 13:20 02/28/22 14:24 02/28/22 15:23 Temperature 97.3 F L Temperature Source Temporal Pulse Rate 87 60 Respiratory Rate 14 15 Respiratory Effort Normal Respiratory Pattern Normal Blood Pressure 150/84 H 154/91 H Blood Pressure Mean 106 112 Pulse Ox 100 96 Oxygen Delivery Method Room Air Room Air 02/28/22 15:57 Temperature Temperature Source Pulse Rate Respiratory Rate 18 Respiratory Effort Respiratory Pattern Blood Pressure 154/91 H Blood Pressure Mean Pulse Ox Oxygen Delivery Method Positive well nourished and well developed General Appearance ED: well developed HEENT Reports moist mucous membranes Negative for trauma or tenderness Eyes PERRL and EOMs intact bilaterally Neck no lymphadenopathy and supple Chest Wall inspection of chest normal and palpation of chest normal Chest: other Chest tightness nonreproducible with bilateral arm movement. Resp normal respiratory effort and clear to auscultation bilaterally Cardio regular rate and regular rhythm GI normal to inspection, nondistended, normoactive bowel sounds Palpation: soft Back/Spine no CVA tenderness Extremity normal to inspection General Extremety ED: Negative for edema or tenderness General Extremity: Negative for edema Neuro oriented x3 and CN's II-XII intact bilaterally Sensorium / Orientation: alert Motor Exam: strength 5/5 throughout Psych mental status grossly normal Skin no rashes or lesions noted [facility] <Dr. Monet Monaco MD - Last Filed: 02/28/22 16:02> [facility] Lab Data Labs: Laboratory Results - last 24 hr 02/28/22 02/28/22 02/28/22 14:10 14:10 14:20 WBC 5.9 RBC 4.76 Hgb 12.5 Hct 40.1 MCV 84.2 MCH 26.3 L MCHC 31.2 L RDW Std Deviation 45.5 H RDW Coeff of Kimi 14.8 H Plt Count 333 MPV 9.3 Immature Gran % (Auto) 0.300 Neut % (Auto) 64.9 Lymph % (Auto) 24.3 [place] % (Auto) 8.0 Eos % (Auto) 2.0 Baso % (Auto) 0.5 Absolute Neuts (auto) 3.8 Absolute Lymphs (auto) 1.43 Nucleated RBC % 0 Sodium 141 Potassium 3.8 Chloride 109 H Carbon Dioxide 28.0 Anion Gap 4 L BUN 26 H Creatinine 1.44 H Estim Creat Clear Calc 25.47 Est GFR (MDRD) Af Amer 46 L Est GFR (MDRD) Non-Af 38 L BUN/Creatinine Ratio 18.1 Glucose 127 H Calcium 8.7 Troponin I High Sens < 3 L Urine Color Yellow Urine Clarity Clear Urine pH 6.5 Ur Specific [place] 1.010 Urine Protein Negative Urine Glucose (UA) Normal Urine Ketones Negative Urine Occult Blood Negative Urine Nitrite Negative Urine Bilirubin Negative Urine Urobilinogen Normal Ur Leukocyte Esterase Negative Urine RBC 0 SEEN Urine WBC 0 SEEN Ur Squamous Epith Cells 0 SEEN Urine Bacteria 0 SEEN Urine Mucus 0 SEEN Treatment and Re-Evaluation Narrative: Patient seen and evaluated with AIR CONDITIONING SERVICE TECHNICIAN student. I personally interviewed and examined the patient. I was involved in all aspects of patient's orders, interpretation of results, and treatment. Patient presents after having episode of vertigo this morning. She states she has a history of similar and believes she turned and got out of bed too quickly. She did take Antivert prior to arrival and states that she is feeling improved at this time. She does complain of some mild upper chest tightness for the last day or 2. Denies near syncope. Patient sitting upright in bed no acute distress. Head neck examination normal. Heart is regular rate and rhythm. Lung sounds are clear. Abdomen is soft and nontender. Neuro exam is normal. EKG and lab work obtained. No significant abnormalities noted. Patient is currently on an antibiotic for UTI. Urine here is clean. Patient will continue full course of her antibiotics. Return instructions provided. <CRISTINEJAYY JOSHUAANTHONY - Last Filed: 02/28/22 15:54> [facility] MDM Narrative Medical decision making narrative: CBC, BMP ordered. Will also obtain troponin and EKG and patient will be placed on quality assurance monitor final. Urinalysis will also be collected. Lab Data Attestation: I reviewed the patient's lab results. Labs: Laboratory Results - last 24 hr 02/28/22 02/28/22 02/28/22 14:10 14:10 14:20 WBC 5.9 RBC 4.76 Hgb 12.5 Hct 40.1 MCV 84.2 MCH 26.3 L MCHC 31.2 L RDW Std Deviation 45.5 H RDW Coeff of Kimi 14.8 H Plt Count 333 MPV 9.3 Immature Gran % (Auto) 0.300 Neut % (Auto) 64.9 Lymph % (Auto) 24.3 [place] % (Auto) 8.0 Eos % (Auto) 2.0 Baso % (Auto) 0.5 Absolute Neuts (auto) 3.8 Absolute Lymphs (auto) 1.43 Nucleated RBC % 0 Sodium 141 Potassium 3.8 Chloride 109 H Carbon Dioxide 28.0 Anion Gap 4 L BUN 26 H Creatinine 1.44 H Estim Creat Clear Calc 25.47 Est GFR (MDRD) Af Amer 46 L Est GFR (MDRD) Non-Af 38 L BUN/Creatinine Ratio 18.1 Glucose 127 H Calcium 8.7 Troponin I High Sens < 3 L Urine Color Yellow Urine Clarity Clear Urine pH 6.5 Ur Specific [place] 1.010 Urine Protein Negative Urine Glucose (UA) Normal Urine Ketones Negative Urine Occult Blood Negative Urine Nitrite Negative Urine Bilirubin Negative Urine Urobilinogen Normal Ur Leukocyte Esterase Negative Urine RBC 0 SEEN Urine WBC 0 SEEN Ur Squamous Epith Cells 0 SEEN Urine Bacteria 0 SEEN Urine Mucus 0 SEEN EKG Initial EKG: Attestation: I personally reviewed and interpreted this EKG as follows: Interpretation: Sinus Rhythm and No Acute Injury Pattern Treatment and Re-Evaluation Narrative: Results reviewed. EKG is normal sinus without any signs of ischemia. CBC nonremarkable. BMP is significant for decreased renal function with eGFR at 38 and creatinine is 1.44. This is consistent with patient's most recent lab work, and per patient, this is being followed by her PCP. Urine is negative. On re-evaluation, patient is comfortably resting and alert. Results reviewed with the patient and at bedside. Patient states she has follow-up already planned with PCP next week. Return instructions given. Pt verbalized understanding. Discharge Plan Triage Chief Complaint: Dizziness ED Provider: Monet Monaco Dx/Rx/DC Orders Clinical Impression: Vertigo Instructions: Vertigo Staying Safe, ED Vertigo, Unspecified Prescriptions: No Action estradiol [Estrace] 0.01 % (0.1 mg/gram) cream 1 g VAGINAL MOFR RF: 0 glucosamine HCl 500 mg tablet 500 mg PO DAILY RF: 0 triamcinolone acetonide 0.5 % cream 1 applic topical BID 7 Days Qty: 15 RF: 2 levothyroxine [Synthroid] 25 mcg tablet 25 mcg PO DAILY RF: 0 cranberry 500 mg capsule 1,000 mg PO BID RF: 0 fenofibric acid (choline) 135 mg capsule,delayed release(DR/EC) 135 mg PO DAILY RF: 0 Trimo-Colon Jelly 0.025-0.01 % gel VAGINAL WE RF: 0 ciprofloxacin HCl 500 mg tablet 500 mg PO BID 7 Days Qty: 14 RF: 0 Primary Care Provider: Belem Hagen NP Referrals: Belem Hagen NP, AIR CONDITIONING SERVICE TECHNICIAN-C [Primary Care Provider] - 1-2 Weeks Disposition Disposition: Home, Self Care Discharge Date/Time: 02/28/22 16:01
[2022-02-28] MEDS: 0.9% Normal Saline 1,000 ML 150 ML IV (14:21)
[2022-02-28 14:25] LABS: Absolute Lymphocyte Count 1.43 X10^3/uL (0.83-4.51); Absolute Neutrophil Count 3.8 X10^3/uL (2.0-7.7); Basophil# 0.03 X10^3/uL; Basophil% 0.5 % (0-1); Eosinophil# 0.12 X10^3/uL; Hematocrit 40.1 % (37-47); Hemoglobin 12.5 g/dL (12.0-15.0); Lymphocyte # 1.43 X10^3/ul (0.83-4.51); Lymphocyte % 24.3 % (19-41); Mean Corp Hgb Conc 31.2 g/dL (32-36); Mean Corpuscular Hgb 26.3 pg (27.0-32.0); Mean Corpuscular Volume 84.2 fL (81-99); Mean Platelet Vol. 9.3 fl (6.2-12.0); Monocyte# 0.47 X10^3/uL; NRBC Flagged by Analyzer 0 % (0-5); Neutrophil # 3.81 X10^3/uL (2.7-7.7); Neutrophil % 64.9 % (47-70); Platelet Count 333 K/mm3 (150-450); RBC Distribution Width CV 14.8 % (11.6-14.6); RBC Distribution Width SD 45.5 fl (35.1-43.9); Red Blood Count 4.76 M/mm3 (4.2-5.4); White Blood Count 5.9 K/mm3 (4.4-11.0)
[2022-02-28 14:27] LABS: Bacteria 0 SEEN /hpf (None Seen); Mucous, Urine 0 SEEN /hpf (<or=2+); Red Blood Cells-Urine 0 SEEN /hpf (0-5); Squamous Epithelial Cells - UA 0 SEEN /hpf (5-10); White Blood Cells 0 SEEN /hpf (0-5)
[2022-02-28 14:33] LABS: Color, Urine Yellow (Yellow); Glucose, Dipstick Normal (Normal); Ketone-Dipstick Negative (Negative); Leukocyte Esterase-Dipstick Negative /ul (Negative); Nitrite-Dipstick Negative (Negative); Occult Blood-Urine Negative /ul (Negative); Protein-Dipstick Negative (Negative); Urine Bilirubin Dipstick Negative (Negative); Urine Clarity Clear (Clear); Urine Urobilinogen Normal (Normal); Urine pH 6.5 (5.0 - 8.0)
[2022-02-28 14:34] LABS: Anion Gap 4 (5-15); BUN 26 mg/dL (7-18); BUN/Creat Ratio 18.1 RATIO (10-20); Calcium,Total 8.7 mg/dL (8.5-10.1); Chloride 109 mmol/L (98-107); Creatinine, Serum 1.44 mg/dL (0.55-1.02); EST Glomerular Filtration Rate 38 mL/min (>60); Est Glom Filt Rate - Afr Amer 46 mL/min (>60); Estimated Creatinine Clearance 25.47 ml/min; Glucose 127 mg/dL (74-106); Potassium 3.8 mmol/L (3.5-5.1); Sodium Level 141 mmol/L (136-145); Troponin-I HS < 3 pg/mL (3.0-54.0)
[2022-02-28 15:23] VITALS: BP 154/91; PULSE 60; RESP 15; O2SAT 96
[2022-02-28 15:57] VITALS: BP 154/91; RESP 18
== END 2022-02-28 16:01 | disposition home or self-care (01) ==
PROVIDERS: Emergency Provider Emergency Medicine; PCP Nurse Practitioner; Visit Provider Emergency Medicine
DX: R42 Dizziness and giddiness (principal); E78.5 Hyperlipidemia, unspecified; K21.9 Gastro-esophageal reflux disease without esophagitis; M81.0 Age-related osteoporosis without current pathological fracture; Z79.899 Other long term (current) drug therapy; N39.0 Urinary tract infection, site not specified; Z79.2 Long term (current) use of antibiotics
CPT/HCPCS: 80048; 81001; 84484; 85025; 93005; 96360; 96361; 99284; J7030; A4216

== ENCOUNTER 2022-03-04 07:20 | Outpatient (CLI) | payer MEDICARE, SELFPAY ==
[2022-03-04 08:09] LABS: Thyroid Stim Hormone (TSH) 2.92 uIU/mL (0.358-3.74)
== END 2022-03-04 23:59 | disposition home or self-care (01) ==
LOC: LAB 07:21
PROVIDERS: PCP Nurse Practitioner; Referring Provider Nurse Practitioner; Visit Provider Nurse Practitioner
DX: R79.89 Other specified abnormal findings of blood chemistry (principal)
CPT/HCPCS: 36415; 84443

== ENCOUNTER 2022-05-16 01:02 | Emergency (ER) | payer MEDICARE, SELFPAY ==
[2022-05-16 01:03] VITALS: BP 176/81; PULSE 74; RESP 16; TEMP 36.3; O2SAT 98; BMI 32.5
--- NOTE | 2022-05-16 01:27 | EKG12_ITS ---
Test Reason : DYSRHYTHMIA Blood Pressure : / mmHG Vent. Rate : 064 BPM Atrial Rate : 064 BPM P-R Int : 154 ms QRS Dur : 088 ms QT Int : 426 ms P-R-T Axes : 053 019 072 degrees QTc Int : 439 ms Normal sinus rhythm Normal ECG Confirmed by LUZ MARIA GARZA, JUAN M ([id number]), index editor DESHAWN MICHAELS ([id number]) on 05/17/2022 9:14:48 AM Referred By: RNADOLPH Confirmed By:JUAN M LOERA MD
--- NOTE | 2022-05-16 01:27 | RAD_ITS ---
EXAM: XR CHEST, 1 VIEW CLINICAL INDICATION: chest pain TECHNIQUE: Frontal view of the chest. This report was created using [employer] report generation technology. COMPARISON: 04/14/2021 FINDINGS: LUNGS AND PLEURAL SPACES: Unremarkable. No consolidation or edema. No pneumothorax. No effusion. HEART: Unremarkable. Cardiac silhouette not enlarged. MEDIASTINUM: Central airways and mediastinal contour are unremarkable. BONES/JOINTS: Degenerative changes of the spine. Degenerative changes of acromioclavicular joints. SOFT TISSUES: Unremarkable. RAD/Chest 1 View (Portable) IMPRESSION: No acute disease. Electronically Signed: Dimitrios Jauregui MD at 2:45 EDT ,
--- NOTE | 2022-05-16 01:27 | CT_ITS ---
EXAM: CT HEAD WITHOUT INTRAVENOUS CONTRAST CLINICAL INDICATION: headache TECHNIQUE: Multiple axial images were obtained of the head without intravenous contrast. CTDIvol = ( 44.99 ) mGy, DLP = ( 812.98 ) mGycm This CT exam was performed using one or more of the following dose reduction techniques: automated exposure control, adjustment of the mA and/or kV according to patient size, and/or use of iterative reconstruction technique. This report was created using [employer] report generation technology. COMPARISON: 06/13/2020 exam FINDINGS: BRAIN AND EXTRA-AXIAL SPACES: Unremarkable. No intra- or extra-axial hemorrhage. No evidence of acute infarct. No intracranial mass or mass effect. There is preservation of the forde/white matter interface. Posterior fossa structures are unremarkable. Ventricles are appropriate for age. No hydrocephalus. Basal cisterns are patent. BONES/JOINTS: Unremarkable. No discrete lytic or blastic abnormalities. SINUSES: Opacified left frontal sinus. Small air-fluid level involving the left maxillary sinus. MASTOID AIR CELLS: Mastoid air cells are clear. ORBITS: Visualized globes, extraocular muscles, optic nerves and retrobulbar fat appear unremarkable. CT/Brain/Head without Contrast IMPRESSION: 1. Acute on chronic sinusitis. 2. No acute intracranial pathology. Electronically Signed: Dimitrios Jauregui MD at 2:48 EDT ,
[2022-05-16] MEDS: diazePAM 5 MG Tablet 2.5 MG PO (01:49)
[2022-05-16 01:55] LABS: Absolute Lymphocyte Count 1.93 X10^3/uL (0.83-4.51); Absolute Neutrophil Count 3.1 X10^3/uL (2.0-7.7); Basophil# 0.04 X10^3/uL; Basophil% 0.7 % (0-1); Eosinophil# 0.21 X10^3/uL; Eosinophils% 3.5 % (0-5); Hematocrit 39.8 % (37-47); Hemoglobin 12.7 g/dL (12.0-15.0); Lymphocyte # 1.93 X10^3/ul (0.83-4.51); Lymphocyte % 32.4 % (19-41); Mean Corp Hgb Conc 31.9 g/dL (32-36); Mean Corpuscular Hgb 27.9 pg (27.0-32.0); Mean Corpuscular Volume 87.3 fL (81-99); Mean Platelet Vol. 9.8 fl (6.2-12.0); Monocyte# 0.62 X10^3/uL; Monocyte% 10.4 % (0-10); NRBC Flagged by Analyzer 0 % (0-5); Neutrophil # 3.14 X10^3/uL (2.7-7.7); Neutrophil % 52.8 % (47-70); Platelet Count 346 K/mm3 (150-450); RBC Distribution Width CV 14.7 % (11.6-14.6); RBC Distribution Width SD 47.1 fl (35.1-43.9); Red Blood Count 4.56 M/mm3 (4.2-5.4)
[2022-05-16 02:11] LABS: Mucous, Urine 0 SEEN /hpf (<or=2+); Red Blood Cells-Urine 0 SEEN /hpf (0-5); White Blood Cells 0 SEEN /hpf (0-5)
[2022-05-16 02:14] LABS: Color, Urine Yellow (Yellow); Glucose, Dipstick Normal (Normal); Ketone-Dipstick Negative (Negative); Leukocyte Esterase-Dipstick Negative /ul (Negative); Nitrite-Dipstick Negative (Negative); Occult Blood-Urine Negative /ul (Negative); Protein-Dipstick Negative (Negative); Urine Bilirubin Dipstick Negative (Negative); Urine Clarity Clear (Clear); Urine Urobilinogen Normal (Normal)
[2022-05-16 02:29] LABS: Anion Gap 5 (5-15); BUN 23 mg/dL (7-18); BUN/Creat Ratio 14.2 RATIO (10-20); Calcium,Total 8.7 mg/dL (8.5-10.1); Chloride 108 mmol/L (98-107); Creatinine, Serum 1.62 mg/dL (0.55-1.02); EST Glomerular Filtration Rate 33 mL/min (>60); Est Glom Filt Rate - Afr Amer 40 mL/min (>60); Estimated Creatinine Clearance 22.64 ml/min; Glucose 106 mg/dL (74-106); Magnesium 2.2 mg/dL (1.6-2.6); Potassium 4.1 mmol/L (3.5-5.1); Sodium Level 142 mmol/L (136-145); Troponin-I HS 7 pg/mL (3.0-54.0)
[2022-05-16 02:36] LABS: Bacteria RARE /hpf (None Seen); Squamous Epithelial Cells - UA 0-5 SEEN /hpf (5-10)
[2022-05-16 04:00] VITALS: BP 167/67; PULSE 60; RESP 16; O2SAT 99
[2022-05-16 04:20] LABS: Troponin-I HS 8 pg/mL (3.0-54.0)
--- NOTE | 2022-05-16 04:32 | EDS_ITS ---
HPI History of Present Illness Chief Complaint: Dizziness Narrative Narrative: Patient is a 76-year-old female with past medical history of peripheral vertigo who takes Antivert for this. She states that today she has been having intermittent bouts of dizziness which she describes as more of a sense of motion. She states that it does seem to improve with rest and that she is taking her Antivert with minimal symptom improvement. She also states she has had vague twinges of left-sided chest discomfort and has a past medical history of recurrent UTIs and is concerned based on these persistent symptoms and therefore comes in for evaluation. [facility] Medical History GERD (gastroesophageal reflux disease) Hyperlipidemia Osteoporosis Vertigo Vision loss of left eye Vision loss of right eye Home Medications estradiol (Estrace) 1 g vaginal MOFR 12/17/17 [History Last Taken 02/25/22] glucosamine HCl 500 mg tablet 500 mg PO DAILY 01/05/19 [History Last Taken 02/27/22] cranberry 500 mg capsule 1,000 mg PO BID 07/20/20 [History Last Taken 02/27/22] triamcinolone acetonide 0.5 % topical cream 1 applic topical BID 7 days #15 grams 07/20/20 [Rx Last Taken 02/26/22] levothyroxine 25 mcg tablet (Synthroid) 25 mcg PO DAILY 02/25/22 [History Last Taken 02/28/22] fenofibric acid (choline) 135 mg capsule,delayed release 135 mg PO DAILY 02/28/22 [History Last Taken 02/27/22] oxyquinoline 0.025 %-sodium lauryl sulfate 0.01 % vaginal gel (Trimo-Colon Jelly) 1 ea vaginal WE 02/28/22 [History Last Taken 02/27/22] diazepam 2 mg tablet (Valium) 2 mg PO TID PRN dizziness or vertigo 5 days #15 tabs 05/16/22 [Rx Last Taken Unknown] Allergy/AdvReac Type Severity Reaction Status Date / Time sulfamethoxazole Allergy Mild Other Verified 05/16/22 01:07 [From Bactrim] trimethoprim [From Bactrim] Allergy Mild Other Verified 05/16/22 01:07 potassium clavulanate Allergy Rash Verified 05/16/22 01:07 [From Augmentin] amoxicillin trihydrate AdvReac Rash Verified 05/16/22 01:07 [From Augmentin] Family History Father Heart disease CVA (cerebral vascular accident) Surgical History H/O tubal ligation Social History Smoking Status: Never smoker alcohol intake: current details: social substance use type: does not use caffeine: Yes frequency: 1-2 times per week seatbelt use: always do you feel safe at home: Yes 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 ROS ROS ED Constitutional Constitutional ED: Denies chills or fever(s) ENT ENT ED: Denies ear pain or sore throat Cardiovascular Cardiovascular: Reports chest pain Respiratory/Chest Respiratory/Chest: Denies cough, dyspnea or dyspnea on exertion Gastrointestinal Gastrointestinal: Denies abdominal pain, diarrhea, nausea or vomiting Genitourinary Genitourinary ED: Denies dysuria Musculoskeletal Musculoskeletal: Denies myalgias Integumentary Denies rash Neurologic Neurologic: Reports other Details: Positive dizziness ; Denies headache(s) Hematologic/Lymphatic Hematologic/Lymphatic: Denies easy bleeding or easy bruising EXAM Physical Exam Const Vital Signs: 05/16/22 01:03 05/16/22 01:09 05/16/22 04:00 Temperature 97.3 F L Temperature Source Temporal Pulse Rate 74 60 Respiratory Rate 16 16 Respiratory Effort Normal Non-Labored Respiratory Pattern Normal Blood Pressure 176/81 H 167/67 H Blood Pressure Mean 112 100 Pulse Ox 98 99 Oxygen Delivery Method Room Air 05/16/22 05:06 Temperature Temperature Source Pulse Rate 80 Respiratory Rate 16 Respiratory Effort Respiratory Pattern Blood Pressure 121/66 H Blood Pressure Mean Pulse Ox Oxygen Delivery Method Positive well nourished and well developed General Appearance ED: well developed HEENT Reports dry mucous membranes Mouth ED: Yes dry mucous membranes Mouth: dry mucous membranes Eyes PERRL and EOMs intact bilaterally Neck supple Resp normal respiratory effort and clear to auscultation bilaterally Cardio regular rate and regular rhythm Rate: other Other Details: Radial pulses are plus 2 out of 4 bilaterally are equal and symmetric GI normal to inspection, nondistended, normoactive bowel sounds, non-tender and non-distended GI Narrative: No voluntary guarding or rigidity no pulsatile mass Auscultation: normoactive bowel sounds Palpation: soft Extremity normal to inspection Neuro oriented x3 and CN's II-XII intact bilaterally Neuro Narrative: Cranial nerves II through XII are grossly intact there are no focal neurologic deficits. No pronator drift no dysmetria or truncal ataxia. There is mild horizontal nystagmus noted and bilateral positive Hallpike Duenweg exam. Sensorium / Orientation: alert Psych mental status grossly normal Skin no rashes or lesions noted MDM MDM MDM Narrative Medical decision making narrative: Patient presented to the ER mildly hypertensive but otherwise with stable vitals. Her neuro exam is normal and with her symptoms of nystagmus as well as worsening dizziness with motion relieving at rest this does appear to be more of a peripheral vertigo component. However as she states that she is taking her normal medication for this without symptom resolution I did elect to perform a head CT with basic cardiac work-up. Head CT revealed no acute pathology. EKG was sinus rhythm and her initial and delta troponin were essentially equal at 7 and 8. There is changes consistent mild dehydration with bump to her kidney fu nction. Secondary to this she was given a 500 mL bolus fluid and 2.5 mg of Valium secondary to the vertigo. On reevaluation she reports resolution of her symptoms and is able to walk with a steady gait. Therefore as her troponins have remained flat her neuro exam normal and she has had improvement of symptoms with treatment she will be discharged home and can follow-up on an outpatient basis Lab Data Attestation: I reviewed the patient's lab results. Labs: Laboratory Results - last 24 hr 05/16/22 05/16/22 05/16/22 01:22 01:22 02:05 WBC 6.0 RBC 4.56 Hgb 12.7 Hct 39.8 MCV 87.3 MCH 27.9 MCHC 31.9 L RDW Std Deviation 47.1 H RDW Coeff of Kimi 14.7 H Plt Count 346 MPV 9.8 Immature Gran % (Auto) 0.200 Neut % (Auto) 52.8 Lymph % (Auto) 32.4 [place] % (Auto) 10.4 H Eos % (Auto) 3.5 Baso % (Auto) 0.7 Absolute Neuts (auto) 3.1 Absolute Lymphs (auto) 1.93 Nucleated RBC % 0 Sodium 142 Potassium 4.1 Chloride 108 H Carbon Dioxide 29.0 Anion Gap 5 BUN 23 H Creatinine 1.62 H Estim Creat Clear Calc 22.64 Est GFR (MDRD) Af Amer 40 L Est GFR (MDRD) Non-Af 33 L BUN/Creatinine Ratio 14.2 Glucose 106 Calcium 8.7 Magnesium 2.2 Troponin I High Sens 7 Urine Color Yellow Urine Clarity Clear Urine pH 7.0 Ur Specific [place] 1.010 Urine Protein Negative Urine Glucose (UA) Normal Urine Ketones Negative Urine Occult Blood Negative Urine Nitrite Negative Urine Bilirubin Negative Urine Urobilinogen Normal Ur Leukocyte Esterase Negative Urine RBC 0 SEEN Urine WBC 0 SEEN Ur Squamous Epith Cells 0-5 SEEN Urine Bacteria RARE Urine Mucus 0 SEEN 05/16/22 03:34 WBC RBC Hgb Hct MCV MCH MCHC RDW Std Deviation RDW Coeff of Kimi Plt Count MPV Immature Gran % (Auto) Neut % (Auto) Lymph % (Auto) [place] % (Auto) Eos % (Auto) Baso % (Auto) Absolute Neuts (auto) Absolute Lymphs (auto) Nucleated RBC % Sodium Potassium Chloride Carbon Dioxide Anion Gap BUN Creatinine Estim Creat Clear Calc Est GFR (MDRD) Af Amer Est GFR (MDRD) Non-Af BUN/Creatinine Ratio Glucose Calcium Magnesium Troponin I High Sens 8 Urine Color Urine Clarity Urine pH Ur Specific [place] Urine Protein Urine Glucose (UA) Urine Ketones Urine Occult Blood Urine Nitrite Urine Bilirubin Urine Urobilinogen Ur Leukocyte Esterase Urine RBC Urine WBC Ur Squamous Epith Cells Urine Bacteria Urine Mucus Radiography Diagnostic Testing: Clinical Impression(s) from Imaging Studies Brain CT 05/16/22 01:27 IMPRESSION: 1. Acute on chronic sinusitis. 2. No acute intracranial pathology. Electronically Signed: Dimitrios Jauregui MD at 2:48 EDT , Chest X-Ray 05/16/22 01:27 IMPRESSION: No acute disease. Electronically Signed: Dimitrios Jauregui MD at 2:45 EDT , Chest x-ray as interpreted by the emergency medicine physician reveals no acute infiltrate pneumothorax or pleural effusion Discharge Plan Triage Chief Complaint: Dizziness ED Provider: Dimitrios Islas Dx/Rx/DC Orders Clinical Impression: Peripheral vertigo, Dehydration, mild Instructions: Dehydration, ED Vertigo, Unspecified Prescriptions: New diazepam [Valium] 2 mg tablet 2 mg PO TID PRN (Reason: dizziness or vertigo) 5 Days Qty: 15 0RF No Action estradiol [Estrace] 0.01 % (0.1 mg/gram) cream 1 g VAGINAL MOFR glucosamine HCl 500 mg tablet 500 mg PO DAILY triamcinolone acetonide 0.5 % cream 1 applic topical BID 7 Days Qty: 15 2RF Rx Instructions: peasized amount as instructed levothyroxine [Synthroid] 25 mcg tablet 25 mcg PO DAILY cranberry 500 mg capsule 1,000 mg PO BID Label Comments: supplement fenofibric acid (choline) 135 mg capsule,delayed release(DR/EC) 135 mg PO DAILY Label Comments: Take 1 Capsule by mouth daily Trimo-Colon Jelly 0.025-0.01 % gel 1 ea VAGINAL WE Primary Care Provider: Belem Hagen NP Referrals: Belem Hagen NP, PUBLIC HEALTH SANITARIAN-C [Primary Care Provider] - Activity Restrictions/Additional Instructions: Please keep yourself well-hydrated and continue your meclizine for recurrent vertigo symptoms. However if this does not help then you may take the Valium as directed. Please return to the ER should you have any further concerns Disposition Disposition: Home, Self Care Discharge Date/Time: 05/16/22 05:07
[2022-05-16 05:06] VITALS: BP 121/66; PULSE 80; RESP 16
== END 2022-05-16 05:07 | disposition home or self-care (01) ==
PROVIDERS: Emergency Provider Emergency Medicine; PCP Nurse Practitioner; Visit Provider Emergency Medicine
DX: R42 Dizziness and giddiness (principal); N18.31 Chronic kidney disease, stage 3a; E86.0 Dehydration; E78.5 Hyperlipidemia, unspecified; K21.9 Gastro-esophageal reflux disease without esophagitis; Z79.899 Other long term (current) drug therapy; H54.7 Unspecified visual loss
CPT/HCPCS: 36415; 70450; 71045; 80048; 80069; 81001; 83735; 84484; 85025; 93005; 96360; 96361; 99283; J7040; A4216

== ENCOUNTER → 2022-05-16 | Outpatient (CLI) | payer MEDICARE, SELFPAY ==
[2022-05-16 10:36] LABS: Albumin, Serum 3.5 g/dL (3.2-5.0); BUN 22 mg/dL (7-18); BUN/Creat Ratio 14.9 RATIO (10-20); Calcium,Total 8.7 mg/dL (8.5-10.1); Chloride 112 mmol/L (98-107); Creatinine, Serum 1.48 mg/dL (0.55-1.02); EST Glomerular Filtration Rate 37 mL/min (>60); Est Glom Filt Rate - Afr Amer 45 mL/min (>60); Glucose 99 mg/dL (74-106); Phosphorus 3.2 mg/dL (2.5-4.9); Potassium 4.6 mmol/L (3.5-5.1); Sodium Level 144 mmol/L (136-145)
== END | disposition home or self-care (01) ==
PROVIDERS: PCP Nurse Practitioner; Visit Provider Internal Medicine Nephrology
DX: N18.31 Chronic kidney disease, stage 3a (principal)
CPT/HCPCS: 36415; 80069

== ENCOUNTER → 2022-05-21 | Outpatient (CLI) | payer MEDICARE, SELFPAY ==
--- NOTE | 2022-05-21 12:37 | US_ITS ---
STUDY: RENAL ULTRASOUND - COMPLETE REASON FOR EXAM: Female, 76 years old. UTI TECHNIQUE: Ultrasound evaluation of the kidneys was performed with real-time and static brush-scale imaging. COMPARISON: 06/12/2021 FINDINGS: RIGHT KIDNEY: Normal location of the right kidney, which is normal in size. The right kidney measures 9.6 cm. There is a normal cortex of the right kidney. The renal cortex measures 2.0 cm. There is no right renal mass or cyst. There are no right renal calculi. There is no right hydronephrosis. DISTAL RIGHT URETER: There is non-visualization of the distal right ureter. There is no demonstrated right ureterovesical junction calculus. There is a visualized right ureteral jet. LEFT KIDNEY: Normal location of the left kidney, which is normal in size. The left kidney measures 10.8 cm. There is a normal cortex of the left kidney. The renal cortex measures 2.2 cm. 5 cm cyst in lower pole of the left kidney. There are no left renal calculi. There is no left hydronephrosis. DISTAL LEFT URETER: There is non-visualization of the distal left ureter. There is no demonstrated left ureterovesical junction calculus. There is a visualized left ureteral jet. BLADDER: The distended urinary bladder has a volume of 106 ml. The empty urinary bladder has a volume of ml. There is a normal wall thickness of the distended urinary bladder. There is no demonstrated mass within the urinary bladder. There are no demonstrated bladder calculi. US/Kidney and Bladder IMPRESSION: Normal ultrasound of the kidneys and urinary bladder. No change in left renal cyst. Electronically Signed: Faizan Hodges MD at 18:14 EDT ,
== END | disposition home or self-care (01) ==
LOC: US 12:35
PROVIDERS: PCP Nurse Practitioner; Referring Provider Urology; Visit Provider Urology
DX: N39.0 Urinary tract infection, site not specified (principal)
CPT/HCPCS: 76770

== ENCOUNTER → 2022-10-08 | Outpatient (CLI) | payer MEDICARE, SELFPAY ==
[2022-10-08 11:07] LABS: Albumin, Serum 3.4 g/dL (3.2-5.0); BUN 16 mg/dL (7-18); BUN/Creat Ratio 13.6 RATIO (10-20); Calcium,Total 8.7 mg/dL (8.5-10.1); Chloride 105 mmol/L (98-107); Creatinine, Serum 1.18 mg/dL (0.55-1.02); EST Glomerular Filtration Rate 47 mL/min (>60); Est Glom Filt Rate - Afr Amer 57 mL/min (>60); Glucose 106 mg/dL (74-106); Phosphorus 2.7 mg/dL (2.5-4.9); Potassium 4.2 mmol/L (3.5-5.1); Sodium Level 138 mmol/L (136-145)
== END | disposition home or self-care (01) ==
LOC: LAB 10:22
PROVIDERS: PCP Nurse Practitioner; Visit Provider Internal Medicine Nephrology
DX: N18.31 Chronic kidney disease, stage 3a (principal)
CPT/HCPCS: 36415; 80069

== ENCOUNTER → 2022-10-31 | Outpatient (CLI) | payer MEDICARE, SELFPAY ==
[2022-10-31 09:37] LABS: Albumin, Serum 3.5 g/dL (3.2-5.0); BUN 17 mg/dL (7-18); BUN/Creat Ratio 13.8 RATIO (10-20); Chloride 105 mmol/L (98-107); Creatinine, Serum 1.23 mg/dL (0.55-1.02); EST Glomerular Filtration Rate 45 mL/min (>60); Est Glom Filt Rate - Afr Amer 55 mL/min (>60); Glucose 100 mg/dL (74-106); Potassium 4.2 mmol/L (3.5-5.1); Sodium Level 139 mmol/L (136-145)
== END | disposition home or self-care (01) ==
LOC: LAB 08:49
PROVIDERS: PCP Nurse Practitioner Family; Referring Provider Internal Medicine Nephrology; Visit Provider Internal Medicine Nephrology
DX: N18.31 Chronic kidney disease, stage 3a (principal)
CPT/HCPCS: 36415; 80069

== ENCOUNTER 2023-03-08 23:55 | Emergency (ER) | payer MEDICARE, SELFPAY ==
[2023-03-08 23:55] VITALS: BP 149/129; PULSE 77; RESP 16; TEMP 36.8; O2SAT 99; BMI 33.4
[2023-03-09 00:02] VITALS: BP 167/86
--- NOTE | 2023-03-09 00:10 | US_ITS ---
STUDY: ABDOMINAL ULTRASOUND - RIGHT UPPER QUADRANT REASON FOR VISIT: Female, 77 years old ABD PAIN TECHNIQUE: Ultrasound evaluation of the right upper quadrant was performed with real-time and static forde-scale imaging. TECHNICAL QUALITY: Adequate. COMPARISON: Renal ultrasound May 21, 2022 FINDINGS: Liver: The liver measures 14.92 cm. There is increased echogenicity consistent with fatty infiltration. The bile ducts are within normal limits. There is hepatic color flow. The direction of portal flow is hepatopetal. There is no demonstrated mass lesion. Gallbladder: Normal distended gallbladder. The gallbladder wall measures 2 mm. There is a negative sonographic Goodman''s sign. There is no pericholecystic fluid. There are no gallstones. Common Bile Duct (C.B.D.): The common bile duct measures 6 mm. Pancreas: Normal size of the head, body and tail of the pancreas. There is increased echogenicity of the pancreas. There is no demonstrated pancreatic mass or cyst. There is mild distention of the pancreatic duct measuring 4 mm. Right Kidney: Normal size of the right kidney. The right kidney measures 10.2 x 3.7 x 4.1 cm. Normal renal cortex. The right cortex measures 1.4 cm. There is a small echogenic structure within the right kidney measuring 5.6 x 5.0 mm. Also seen on prior study which may represent a small focus of fat possible angiomyolipoma. There is an additional subtle structure that is likely probable artifact or fat within the lower pole measuring 4 mm as well. There is no right hydronephrosis. US/Gallbladder IMPRESSION: Hepatic steatosis. Borderline distended common duct for patient''s age. Nonspecific fatty infiltrated appearance of the pancreas. No gallstones. No ultrasound evidence of cholecystitis. No hydronephrosis. Possible small echogenic foci of artifact versus small angiomyolipomas. Electronically Signed: Nerissa Hay MD at 2:09 EDT ,
--- NOTE | 2023-03-09 00:11 | EDS_ITS ---
HPI HPI - GI History of Present Illness Chief Complaint: Chest Pain Informant: patient Narrative Narrative: Patient had some upper abdominal pain earlier today after lunch, she ate lunch meats and cheeses, it never went away, but tonight after eating cheeseburger soup for supper, it became much worse and has been persistent like this for the last 6 or 7 hours. She points to the epigastrium but states the pain goes to both sides, denies any dyspnea, she has had nausea but no vomiting. She does not have any specific other areas were pain is radiating including the back or the chest. She had a remote history of a tubal ligation but no other abdominal surgeries. She did have cereal, grapefruit, black coffee for breakfast and did not remember having any of the symptoms. Does not feel like it is in her chest, no upper extremity symptoms or radiation to her jaw. Has some chronic issues with her left hip that she is in care for. [facility] Medical History GERD (gastroesophageal reflux disease) Hyperlipidemia Osteoporosis Vertigo Vision loss of left eye Vision loss of right eye Home Medications estradiol 0.01% (0.1 mg/gram) vaginal cream (Estrace) 1 g vaginal MOFR 12/17/17 [History Last Taken 02/25/22] glucosamine HCl 500 mg tablet 500 mg PO DAILY 01/05/19 [History Last Taken 02/27/22] triamcinolone acetonide 0.5 % topical cream 1 applic topical BID 7 days #15 grams 07/20/20 [Rx Last Taken 02/26/22] levothyroxine 25 mcg tablet (Synthroid) 25 mcg PO DAILY 02/25/22 [History Last Taken 02/28/22] fenofibric acid (choline) 135 mg capsule,delayed release 135 mg PO DAILY 02/28/22 [History Last Taken 02/27/22] oxyquinoline 0.025 %-sodium lauryl sulfate 0.01 % vaginal gel (Trimo-Colon Jelly) 1 ea vaginal WE 02/28/22 [History Last Taken 02/27/22] calcium carbonate 600 mg-vitamin D3 10 mcg (400 unit) chewable tablet (Calcium 600 with Vitamin D3) tab PO 06/05/22 [History Last Taken Unknown] d-mannose 500 mg capsule mg PO 06/05/22 [History Last Taken Unknown] meclizine 25 mg tablet 25 mg PO DAILY PRN 06/05/22 [History Last Taken Unknown] hydrocodone-acetaminophen 5-325mg 5mg-325mg 1 tab PO Q6H PRN PRN Pain 3 days #10 TABLETS 03/09/23 [Rx Last Taken Unknown] ondansetron 4 mg disintegrating tablet 8 mg PO Q8H PRN PRN Nausea #20 tabs [Rx Last Taken Unknown] pantoprazole 40 mg tablet,delayed release 40 mg PO DAILY #14 tabs 03/09/23 [Rx Last Taken Unknown] Allergy/AdvReac Type Severity Reaction Status Date / Time sulfamethoxazole Allergy Mild Other Verified 03/08/23 23:58 [From Bactrim] trimethoprim [From Bactrim] Allergy Mild Other Verified 03/08/23 23:58 potassium clavulanate Allergy Rash Verified 03/08/23 23:58 [From Augmentin] amoxicillin trihydrate AdvReac Rash Verified 03/08/23 23:58 [From Augmentin] Family History Father Heart disease CVA (cerebral vascular accident) Surgical History H/O tubal ligation Social History Smoking Status: Never smoker alcohol intake: current details: social substance use type: does not use caffeine: Yes frequency: 1-2 times per week seatbelt use: always do you feel safe at home: Yes 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 ROS ROS ED Constitutional Constitutional ED: Denies chills or fever(s) Eyes Eyes: Denies change in vision or diplopia ENT ENT ED: Denies rhinorrhea or sore throat Cardiovascular Cardiovascular: Denies chest pain or palpitations Respiratory/Chest Respiratory/Chest: Denies cough or dyspnea Gastrointestinal Gastrointestinal: Reports abdominal pain and nausea; Denies diarrhea, melena or vomiting Genitourinary Genitourinary ED: Denies dysuria or hematuria Musculoskeletal Musculoskeletal: Reports as per HPI and extremity pain; Denies back pain or neck pain Integumentary Denies abscess or rash Neurologic Neurologic: Denies headache(s), paresthesias or weakness Psychiatric Psychiatric: Denies anxiety or suicidal thoughts EXAM Physical Exam Const Vital Signs: 03/08/23 23:55 03/09/23 00:01 03/09/23 00:02 Temperature 98.2 F Temperature Source Temporal Pulse Rate 77 Respiratory Rate 16 Respiratory Effort Normal Non-Labored Blood Pressure 149/129 H 167/86 H Blood Pressure Mean 135 113 Pulse Ox 99 Oxygen Delivery Method Room Air Positive well nourished, well developed and obese General Appearance ED: well developed and NAD Nutritional Appearance: obese HEENT Reports moist mucous membranes normocephalic and atraumatic Eyes PERRL and EOMs intact bilaterally Neck full ROM and supple Resp normal respiratory effort and clear to auscultation bilaterally Cardio regular rate, regular rhythm and no murmurs GI non-distended GI Narrative: Tender in the epigastrium and right upper quadrant with a positive Goodman's. Otherwise abdomen benign, soft, no palpable pulsatile mass. No guarding or rebound tenderness otherwise, nonsurgical abdomen Auscultation: normoactive bowel sounds Palpation: soft Back/Spine no CVA tenderness General Back: other FROM Extremity normal to inspection General Extremety ED: Negative for edema, pulses abnormal or tenderness General Extremity: Negative for edema or pulses abnormal Neuro oriented x3, CN's II-XII intact bilaterally and no sensory deficits noted Sensorium / Orientation: awake and alert Motor Exam: strength 5/5 throughout Psych mental status grossly normal and thought process normal Skin no rashes or lesions noted and no wounds MDM MDM MDM Narrative Medical decision making narrative: Differential here includes upper GI etiologies, pancreas, gallbladder, cardiac etiologies although this is thought to be less likely due to reproducible symptoms after meals and with palpation in her upper abdomen. Work-up shows an elevated lipase but her liver enzymes are normal and she has no leukocytosis. She is feeling better after some morphine and Zofran. I was able to get ultrasound to do an emergent ultrasound of the gallbladder, and it is essentially normal showing no signs of acute cholecystitis or cholelithiasis. It is possible that the gallbladder is related to her pain but she would need a HIDA scan if her pain continues, she is not a heavy alcohol drinker, and I do not think her pancreas is acutely inflamed based on the slightly high level and nonspecific findings on the ultrasound. She is able to tolerate food and drink. I recommend a full liquid diet at this time, discharge home with close outpatient follow-up after the weekend, and I will prescribe her antinausea and analgesics to use as needed in addition to a PPI. She is comfortable with that overall plan. Lab Data Attestation: I reviewed the patient's lab results. Labs: Laboratory Results - last 24 hr 03/09/23 03/09/23 00:05 00:05 WBC 7.4 RBC 4.34 Hgb 12.4 Hct 38.7 MCV 89.2 MCH 28.6 MCHC 32.0 RDW Std Deviation 48.1 H RDW Coeff of Kimi 14.7 H Plt Count 384 MPV 9.5 Immature Gran % (Auto) 0.400 Neut % (Auto) 51.7 Lymph % (Auto) 36.4 Overton % (Auto) 8.1 Eos % (Auto) 2.6 Baso % (Auto) 0.8 Absolute Neuts (auto) 3.9 Absolute Lymphs (auto) 2.71 Nucleated RBC % 0 Sodium 142 Potassium 3.8 Chloride 109 H Carbon Dioxide 27.0 Anion Gap 6 BUN 22 H Creatinine 1.41 H Estim Creat Clear Calc 25.61 Est GFR (MDRD) Af Amer 47 L Est GFR (MDRD) Non-Af 39 L BUN/Creatinine Ratio 15.6 Glucose 106 Calcium 9.4 Total Bilirubin 0.30 AST 24 ALT 30 Alkaline Phosphatase 37 L Troponin I High Sens 9 Total Protein 7.2 Albumin 3.5 Globulin 3.7 Albumin/Globulin Ratio 0.9 Lipase 442 H Radiography Diagnostic Testing: Clinical Impression(s) from Imaging Studies Gallbladder Ultrasound 03/09/23 00:10 IMPRESSION: Hepatic steatosis. Borderline distended common duct for patient''s age. Nonspecific fatty infiltrated appearance of the pancreas. No gallstones. No ultrasound evidence of cholecystitis. No hydronephrosis. Possible small echogenic foci of artifact versus small angiomyolipomas. Electronically Signed: Nerissa Hay MD at 2:09 EDT , I reviewed the images and the radiologist's interpretation and I agree with rafael tolliver. Rhythm Strip Rhythm Strip: Sinus Rhythm Rate: 75 Ectopy: None EKG Initial EKG: Attestation: I personally reviewed and interpreted this EKG as follows: Interpretation: Sinus Rhythm, No Acute Injury Pattern and Non-Specific ST Changes (Laterally) Prior EKG tracings: available for review Prior: Unchanged Discharge Plan Triage Chief Complaint: Chest Pain ED Provider: Tristan Landis Dx/Rx/DC Orders Clinical Impression: Acute upper abdominal pain, Elevated lipase Instructions: ED Epigastric Pain Uncertain Cause, ED Full Liquid Diet Prescriptions: New hydrocodone-acetaminophen [hydrocodone-acetaminophen] 5-325 mg tablet 1 tab PO Q6H PRN PRN (Reason: Pain) 3 Days Qty: 10 0RF pantoprazole 40 mg tablet,delayed release (DR/EC) 40 mg PO DAILY Qty: 14 0RF ondansetron [ondansetron] 4 mg tablet,disintegrating 8 mg PO Q8H PRN PRN (Reason: Nausea) Qty: 20 0RF No Action estradiol [Estrace] 0.01 % (0.1 mg/gram) cream 1 g VAGINAL MOFR glucosamine HCl 500 mg tablet 500 mg PO DAILY triamcinolone acetonide 0.5 % cream 1 applic topical BID 7 Days Qty: 15 2RF Rx Instructions: peasized amount as instructed levothyroxine [Synthroid] 25 mcg tablet 25 mcg PO DAILY meclizine 25 mg tablet 25 mg PO DAILY PRN Calcium 600 with Vitamin D3 600 mg-10 mcg (400 unit) tablet,chewable PO d-mannose 500 mg capsule PO fenofibric acid (choline) 135 mg capsule,delayed release(DR/EC) 135 mg PO DAILY Label Comments: Take 1 Capsule by mouth daily Trimo-Colon Jelly 0.025-0.01 % gel 1 ea VAGINAL WE Primary Care Provider: Kiana Chaudhary Referrals: Kiana Chaudhary, [facility] [Primary Care Provider] - 3-5 Days if not improving Activity Restrictions/Additional Instructions: Try the full liquid diet for 2 to 3 days, then advance diet as tolerated Disposition Disposition: Home, Self Care
[2023-03-09 00:17] LABS: Absolute Lymphocyte Count 2.71 X10^3/uL (0.83-4.51); Absolute Neutrophil Count 3.9 X10^3/uL (2.0-7.7); Basophil# 0.06 X10^3/uL; Basophil% 0.8 % (0-1); Eosinophil# 0.19 X10^3/uL; Eosinophils% 2.6 % (0-5); Hematocrit 38.7 % (37-47); Hemoglobin 12.4 g/dL (12.0-15.0); Lymphocyte # 2.71 X10^3/ul (0.83-4.51); Lymphocyte % 36.4 % (19-41); Mean Corpuscular Hgb 28.6 pg (27.0-32.0); Mean Corpuscular Volume 89.2 fL (81-99); Mean Platelet Vol. 9.5 fl (6.2-12.0); Monocyte% 8.1 % (0-10); NRBC Flagged by Analyzer 0 % (0-5); Neutrophil # 3.85 X10^3/uL (2.7-7.7); Neutrophil % 51.7 % (47-70); Platelet Count 384 K/mm3 (150-450); RBC Distribution Width CV 14.7 % (11.6-14.6); RBC Distribution Width SD 48.1 fl (35.1-43.9); Red Blood Count 4.34 M/mm3 (4.2-5.4); White Blood Count 7.4 K/mm3 (4.4-11.0)
[2023-03-09] MEDS: Ondansetron 4 MG/2 ML Vial IV (00:25)
[2023-03-09] MEDS: 0.9% Normal Saline 1,000 ML 125 ML IV (00:28)
[2023-03-09] MEDS: Morphine 4 MG/ML Syringe IV (00:28)
[2023-03-09 00:38] LABS: ALB/GLOB Ratio 0.9 RATIO (0.9-2.4); AST(SGOT) 24 U/L (15-37); Alanine Aminotransfer ALT/SGPT 30 U/L (13-56); Albumin, Serum 3.5 g/dL (3.2-5.0); Alkaline Phosphatase 37 U/L (45-117); Anion Gap 6 (5-15); BUN 22 mg/dL (7-18); BUN/Creat Ratio 15.6 RATIO (10-20); Calcium,Total 9.4 mg/dL (8.5-10.1); Chloride 109 mmol/L (98-107); Creatinine, Serum 1.41 mg/dL (0.55-1.02); EST Glomerular Filtration Rate 39 mL/min (>60); Est Glom Filt Rate - Afr Amer 47 mL/min (>60); Estimated Creatinine Clearance 25.61 ml/min; Globulin 3.7 g/dL (2.2-4.2); Glucose 106 mg/dL (74-106); Lipase 442 U/L (73-393); Potassium 3.8 mmol/L (3.5-5.1); Protein, Total 7.2 g/dL (6.4-8.2); Sodium Level 142 mmol/L (136-145); Troponin-I HS 9 pg/mL (3.0-54.0)
[2023-03-09 02:19] LABS: Mucous, Urine 0 SEEN /hpf (<or=2+); White Blood Cells 0 SEEN /hpf (0-5)
[2023-03-09 03:08] VITALS: BP 144/68; PULSE 70; RESP 16; O2SAT 98
[2023-03-09 03:15] LABS: Color, Urine Yellow (Yellow); Glucose, Dipstick Normal (Normal); Ketone-Dipstick Negative (Negative); Leukocyte Esterase-Dipstick 25 /ul (Negative); Nitrite-Dipstick Negative (Negative); Occult Blood-Urine Negative /ul (Negative); Protein-Dipstick Negative (Negative); Urine Bilirubin Dipstick Negative (Negative); Urine Clarity Clear (Clear); Urine Urobilinogen Normal (Normal)
[2023-03-09 04:47] LABS: Bacteria 1+ /hpf (None Seen); Red Blood Cells-Urine 0-5 SEEN /hpf (0-5); Squamous Epithelial Cells - UA 0-5 SEEN /hpf (5-10)
== END 2023-03-09 04:24 | disposition home or self-care (01) ==
PROVIDERS: Emergency Provider Emergency Medicine; PCP Nurse Practitioner Family; Visit Provider Emergency Medicine
DX: R10.10 Upper abdominal pain, unspecified (principal); R74.8 Abnormal levels of other serum enzymes; E78.5 Hyperlipidemia, unspecified; R07.9 Chest pain, unspecified; E66.9 Obesity, unspecified
CPT/HCPCS: 76705; 80053; 81001; 83690; 84484; 85025; 93005; 96361; 96374; 96375; 99284; J7030; A4216; J2405

== ENCOUNTER 2023-03-10 17:14 | Emergency (ER) | payer MEDICARE, SELFPAY ==
[2023-03-10 17:15] VITALS: BP 154/72; PULSE 64; RESP 18; TEMP 36.2; O2SAT 100
[2023-03-10 18:59] VITALS: BMI 34.2
[2023-03-10 20:33] VITALS: BP 187/77; PULSE 64; RESP 18; O2SAT 99
[2023-03-10 21:09] VITALS: RESP 18
--- NOTE | 2023-03-10 21:10 | EX.ED.DYSGE1 ---
HPI History of Present Illness Chief Complaint: Dizziness Narrative Narrative: 77-year-old female presenting for lightheadedness. She states it started about an hour and a half after taking the Hurley. She states the Hurley was initially intended for abdominal pain which is resolved. She states she tweaked her back and decided to take this again. She then started to feel little bit lightheaded/dizzy. She was not quite sure if it was vertigo but has had this in the past. She states she felt nauseous. She states that while sitting in the waiting room all of her symptoms resolved. PFSH [facility] Medical History GERD (gastroesophageal reflux disease) Hyperlipidemia Osteoporosis Vertigo Vision loss of left eye Vision loss of right eye Home Medications estradiol 0.01% (0.1 mg/gram) vaginal cream (Estrace) 1 g vaginal MOFR 12/17/17 [History Last Taken 02/25/22] glucosamine HCl 500 mg tablet 500 mg PO DAILY 01/05/19 [History Last Taken 02/27/22] triamcinolone acetonide 0.5 % topical cream 1 applic topical BID 7 days #15 grams 07/20/20 [Rx Last Taken 02/26/22] levothyroxine 25 mcg tablet (Synthroid) 25 mcg PO DAILY 02/25/22 [History Last Taken 02/28/22] fenofibric acid (choline) 135 mg capsule,delayed release 135 mg PO DAILY 02/28/22 [History Last Taken 02/27/22] oxyquinoline 0.025 %-sodium lauryl sulfate 0.01 % vaginal gel (Trimo-Colon Jelly) 1 ea vaginal WE 02/28/22 [History Last Taken 02/27/22] calcium carbonate 600 mg-vitamin D3 10 mcg (400 unit) chewable tablet (Calcium 600 with Vitamin D3) tab PO 06/05/22 [History Last Taken Unknown] d-mannose 500 mg capsule mg PO 06/05/22 [History Last Taken Unknown] meclizine 25 mg tablet 25 mg PO DAILY PRN 06/05/22 [History Last Taken Unknown] hydrocodone-acetaminophen 5-325mg 5mg-325mg 1 tab PO Q6H PRN PRN Pain 3 days #10 TABLETS 03/09/23 [Rx Last Taken Unknown] ondansetron 4 mg disintegrating tablet 8 mg PO Q8H PRN PRN Nausea #20 tabs 03/09/23 [Rx Last Taken Unknown] pantoprazole 40 mg tablet,delayed release 40 mg PO DAILY #14 tabs 03/09/23 [Rx Last Taken Unknown] Allergy/AdvReac Type Severity Reaction Status Date / Time sulfamethoxazole Allergy Mild Other Verified 03/10/23 18:59 [From Bactrim] trimethoprim [From Bactrim] Allergy Mild Other Verified 03/10/23 18:59 potassium clavulanate Allergy Rash Verified 03/10/23 18:59 [From Augmentin] amoxicillin trihydrate AdvReac Rash Verified 03/10/23 18:59 [From Augmentin] Family History Father Heart disease CVA (cerebral vascular accident) Surgical History H/O tubal ligation Social History Smoking Status: Never smoker alcohol intake: current details: social substance use type: does not use caffeine: Yes frequency: 1-2 times per week seatbelt use: always do you feel safe at home: Yes 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 ROS ROS ED Review of Systems ROS Unobtainable: Denies due to encephalopathy Constitutional Constitutional ED: Denies chills or fever(s) Eyes Eyes: Denies change in vision or diplopia ENT ENT ED: Denies rhinorrhea or sore throat Cardiovascular Cardiovascular: Denies chest pain or palpitations Respiratory/Chest Respiratory/Chest: Denies cough or dyspnea Gastrointestinal Gastrointestinal: Reports nausea Genitourinary Genitourinary ED: Denies dysuria or hematuria Musculoskeletal Musculoskeletal: Denies arthralgias or back pain Integumentary Denies abscess Neurologic Neurologic: Reports headache(s); Denies paresthesias Psychiatric Psychiatric: Denies anxiety or depression EXAM Physical Exam Const Vital Signs: 03/10/23 17:15 03/10/23 19:00 03/10/23 20:33 Temperature 97.1 F L Temperature Source Temporal Pulse Rate 64 64 Respiratory Rate 18 18 Respiratory Effort Normal Non-Labored Respiratory Pattern Normal Blood Pressure 154/72 H 187/77 H Blood Pressure Mean 99 113 Pulse Ox 100 99 Oxygen Delivery Method Room Air Room Air 03/10/23 21:09 Temperature Temperature Source Pulse Rate Respiratory Rate 18 Respiratory Effort Respiratory Pattern Blood Pressure Blood Pressure Mean Pulse Ox Oxygen Delivery Method Positive well nourished General Appearance ED: Negative for pallor HEENT Reports moist mucous membranes Chest Wall inspection of chest normal and palpation of chest normal Resp normal respiratory effort and clear to auscultation bilaterally Auscultation: Negative for rales, rhonchi or wheezes Cardio regular rate and regular rhythm GI normal to inspection, nondistended, normoactive bowel sounds Neuro oriented x3 and CN's II-XII intact bilaterally Sensorium / Orientation: alert Motor Exam: strength 5/5 throughout Psych mental status grossly normal Skin no rashes or lesions noted General Skin Exam: Negative for jaundice or pallor MDM MDM MDM Narrative Medical decision making narrative: Patient presenting with resolved lightheaded, nausea, headache. She states this all started after she took a Hurley earlier today for her back. She suspects this is what it is from. She has normal vital signs. She had blood work done just the other day as well as an ultrasound right upper quadrant and this was all negative. I do not believe she needs repeat imaging. I suspect this is likely due to the Hurley. I counseled the patient on this. She is discharged in stable condition. Impression: 1. Medication side effect 2. Nausea 3. Headache 4. Light Discharge Plan Triage Chief Complaint: Dizziness ED Provider: Tod Warner Dx/Rx/DC Orders Instructions: ED Drug Reaction, Other Prescriptions: No Action estradiol [Estrace] 0.01 % (0.1 mg/gram) cream 1 g VAGINAL MOFR glucosamine HCl 500 mg tablet 500 mg PO DAILY triamcinolone acetonide 0.5 % cream 1 applic topical BID 7 Days Qty: 15 2RF Rx Instructions: peasized amount as instructed levothyroxine [Synthroid] 25 mcg tablet 25 mcg PO DAILY meclizine 25 mg tablet 25 mg PO DAILY PRN Calcium 600 with Vitamin D3 600 mg-10 mcg (400 unit) tablet,chewable PO d-mannose 500 mg capsule PO fenofibric acid (choline) 135 mg capsule,delayed release(DR/EC) 135 mg PO DAILY Label Comments: Take 1 Capsule by mouth daily Trimo-Colon Jelly 0.025-0.01 % gel 1 ea VAGINAL WE hydrocodone-acetaminophen [hydrocodone-acetaminophen] 5-325 mg tablet 1 tab PO Q6H PRN PRN (Reason: Pain) 3 Days Qty: 10 0RF pantoprazole 40 mg tablet,delayed release (DR/EC) 40 mg PO DAILY Qty: 14 0RF ondansetron [ondansetron] 4 mg tablet,disintegrating 8 mg PO Q8H PRN PRN (Reason: Nausea) Qty: 20 0RF Primary Care Provider: Kiana Chaudhary Referrals: Kiana Chaudhary, [facility] [Primary Care Provider] - Disposition Disposition: Home, Self Care Discharge Date/Time: 03/10/23 21:15
== END 2023-03-10 21:15 | disposition home or self-care (01) ==
LOC: ED 21:14
PROVIDERS: Emergency Provider Student in an Organized Health Care Education/Training Program; PCP Nurse Practitioner Family; Visit Provider Student in an Organized Health Care Education/Training Program
DX: R42 Dizziness and giddiness (principal); E78.5 Hyperlipidemia, unspecified; R51.9 Headache, unspecified; R11.0 Nausea; T40.2X5A Adverse effect of other opioids, initial encounter; T39.1X5A Adverse effect of 4-Aminophenol derivatives, initial encounter
CPT/HCPCS: 99285

== ENCOUNTER → 2023-03-17 | Outpatient (CLI) | payer MEDICARE, SELFPAY ==
[2023-03-17 16:07] LABS: Absolute Neutrophil Count 4.6 X10^3/uL (2.0-7.7); Basophil# 0.05 X10^3/uL; Basophil% 0.7 % (0-1); Eosinophil# 0.13 X10^3/uL; Eosinophils% 1.9 % (0-5); Hematocrit 39.1 % (37-47); Hemoglobin 12.4 g/dL (12.0-15.0); Lymphocyte % 25.8 % (19-41); Mean Corp Hgb Conc 31.7 g/dL (32-36); Mean Corpuscular Hgb 27.9 pg (27.0-32.0); Mean Corpuscular Volume 88.1 fL (81-99); Mean Platelet Vol. 10.8 fl (6.2-12.0); Monocyte# 0.44 X10^3/uL; Monocyte% 6.3 % (0-10); NRBC Flagged by Analyzer 0 % (0-5); Neutrophil # 4.56 X10^3/uL (2.7-7.7); Neutrophil % 65.2 % (47-70); Platelet Count 354 K/mm3 (150-450); RBC Distribution Width CV 14.6 % (11.6-14.6); RBC Distribution Width SD 46.6 fl (35.1-43.9); Red Blood Count 4.44 M/mm3 (4.2-5.4)
[2023-03-17 16:34] LABS: ALB/GLOB Ratio 1.1 RATIO (0.9-2.4); AST(SGOT) 20 U/L (15-37); Alanine Aminotransfer ALT/SGPT 28 U/L (13-56); Albumin, Serum 3.6 g/dL (3.2-5.0); Alkaline Phosphatase 38 U/L (45-117); Amylase 52 U/L (25-115); Anion Gap 3 (5-15); BUN 22 mg/dL (7-18); BUN/Creat Ratio 15.1 RATIO (10-20); Bilirubin, Direct 0.15 mg/dL (0.00-0.30); Calcium,Total 9.6 mg/dL (8.5-10.1); Chloride 108 mmol/L (98-107); Creatinine, Serum 1.46 mg/dL (0.55-1.02); EST Glomerular Filtration Rate 37 mL/min (>60); Est Glom Filt Rate - Afr Amer 45 mL/min (>60); Globulin 3.4 g/dL (2.2-4.2); Glucose 95 mg/dL (74-106); Lipase 97 U/L (13-75); Potassium 3.9 mmol/L (3.5-5.1); Sodium Level 142 mmol/L (136-145)
== END | disposition home or self-care (01) ==
LOC: LABSPEC 15:48
PROVIDERS: PCP Nurse Practitioner Family; Referring Provider Nurse Practitioner Family; Visit Provider Nurse Practitioner Family
DX: R10.9 Unspecified abdominal pain (principal); R74.8 Abnormal levels of other serum enzymes
CPT/HCPCS: 80053; 82150; 82248; 83690; 85025

== ENCOUNTER → 2023-05-15 | Outpatient (CLI) | payer MEDICARE, SELFPAY ==
[2023-05-15 13:23] LABS: Erythrocyte Sedimentation Rate 6 mm/hr (0-30)
[2023-05-15 13:26] LABS: Absolute Lymphocyte Count 1.82 X10^3/uL (0.83-4.51); Absolute Neutrophil Count 3.7 X10^3/uL (2.0-7.7); Basophil# 0.05 X10^3/uL; Basophil% 0.8 % (0-1); Eosinophil# 0.09 X10^3/uL; Eosinophils% 1.5 % (0-5); Hemoglobin 12.2 g/dL (12.0-15.0); Lymphocyte # 1.82 X10^3/ul (0.83-4.51); Lymphocyte % 30.5 % (19-41); Mean Corp Hgb Conc 32.1 g/dL (32-36); Mean Corpuscular Hgb 28.8 pg (27.0-32.0); Mean Corpuscular Volume 89.6 fL (81-99); Mean Platelet Vol. 9.3 fl (6.2-12.0); Monocyte# 0.29 X10^3/uL; Monocyte% 4.9 % (0-10); NRBC Flagged by Analyzer 0 % (0-5); Neutrophil % 62.1 % (47-70); Platelet Count 361 K/mm3 (150-450); RBC Distribution Width CV 14.7 % (11.6-14.6); Red Blood Count 4.24 M/mm3 (4.2-5.4)
[2023-05-15 13:40] LABS: ALB/GLOB Ratio 0.9 RATIO (0.9-2.4); AST(SGOT) 38 U/L (15-37); Alanine Aminotransfer ALT/SGPT 29 U/L (13-56); Albumin, Serum 3.5 g/dL (3.2-5.0); Alkaline Phosphatase 33 U/L (45-117); Anion Gap 4 (5-15); BUN 14 mg/dL (7-18); BUN/Creat Ratio 10.4 RATIO (10-20); CRP 4.14 mg/L (0.0-3.0); Calcium,Total 9.1 mg/dL (8.5-10.1); Chloride 107 mmol/L (98-107); Creatinine, Serum 1.35 mg/dL (0.55-1.02); EST Glomerular Filtration Rate 41 mL/min (>60); Est Glom Filt Rate - Afr Amer 49 mL/min (>60); Globulin 3.9 g/dL (2.2-4.2); Glucose 132 mg/dL (74-106); Potassium 4.2 mmol/L (3.5-5.1); Protein, Total 7.4 g/dL (6.4-8.2); Sodium Level 138 mmol/L (136-145)
--- NOTE | 2023-05-15 15:52 | CT_ITS ---
STUDY: CT ABDOMEN AND PELVIS WITH CONTRAST REASON FOR EXAM: Female, 77 years old. abdominal pain RADIATION DOSAGE (If Supplied By Facility): CTDIvol = ( 15.37 ) mGy, DLP = ( 917.98 ) mGycm TECHNIQUE: Transaxial images were obtained from the dome of the diaphragm to the symphysis pubis with oral contrast. IV 100mL Isovue-300 was administered. Sagittal and coronal images were reconstructed. Individualized dose optimization techniques were used for this CT. COMPARISON: 06/27/2013. FINDINGS: The visualized lung bases are unremarkable. The visualized portions of the heart are within normal limits. Normal liver. Normal gallbladder and extrahepatic biliary system. Normal spleen. Normal pancreas. Normal bilateral adrenal glands. Normal right kidney. Left kidney has a stable 6 cm mid renal simple cyst, otherwise normal left kidney. Normal visualized stomach. Normal small intestine. There are multiple colonic diverticula consistent with diverticulosis. The appendix is visualized and appears normal. Normal abdominal aorta. Normal inferior vena cava. Normal retroperitoneum. Nondistended urinary bladder. There is atrophy of the uterus. A pessary is seen in place. Normal abdominal wall. There are diffuse degenerative changes of the visualized lumbar spine. CT/Abdomen/Pelvis WITH Contrast IMPRESSION: No definite acute or significant abnormality seen. Electronically Signed: John Ward MD at 16:17 EDT ,
== END | disposition home or self-care (01) ==
LOC: CT 13:06
PROVIDERS: PCP Nurse Practitioner Family; Referring Provider Internal Medicine; Visit Provider Internal Medicine
DX: R10.9 Unspecified abdominal pain (principal)
CPT/HCPCS: 36415; 74177; 80053; 85025; 85652; 86140; Q9967

== ENCOUNTER 2023-05-21 10:48 | Emergency (ER) | payer MEDICARE, SELFPAY ==
[2023-05-21 10:49] VITALS: BP 183/103; PULSE 85; RESP 16; TEMP 36.3; O2SAT 99; BMI 32.5
--- NOTE | 2023-05-21 11:01 | EDS_ITS ---
HPI History of Present Illness Chief Complaint: Abd Pain PFSH
--- NOTE | 2023-05-21 11:01 | EX.ED.DYSGE1 ---
HPI History of Present Illness Chief Complaint: Abd Pain [facility] Medical History GERD (gastroesophageal reflux disease) Hyperlipidemia Osteoporosis Vertigo Vision loss of left eye Vision loss of right eye Home Medications estradiol 0.01% (0.1 mg/gram) vaginal cream (Estrace) 1 g vaginal MOFR 12/17/17 [History Last Taken 02/25/22] glucosamine HCl 500 mg tablet 500 mg PO DAILY 01/05/19 [History Last Taken 02/27/22] triamcinolone acetonide 0.5 % topical cream 1 applic topical BID 7 days #15 grams 07/20/20 [Rx Last Taken 02/26/22] levothyroxine 25 mcg tablet (Synthroid) 25 mcg PO DAILY 02/25/22 [History Last Taken 02/28/22] fenofibric acid (choline) 135 mg capsule,delayed release 135 mg PO DAILY 02/28/22 [History Last Taken 02/27/22] calcium carbonate 600 mg-vitamin D3 10 mcg (400 unit) chewable tablet (Calcium 600 with Vitamin D3) tab PO 06/05/22 [History Last Taken Unknown] d-mannose 500 mg capsule mg PO 06/05/22 [History Last Taken Unknown] meclizine 25 mg tablet 25 mg PO DAILY PRN 06/05/22 [History Last Taken Unknown] hydrocodone-acetaminophen 5-325mg 5mg-325mg 1 tab PO Q6H PRN PRN Pain 3 days #10 TABLETS 03/09/23 [Rx Last Taken Unknown] ondansetron 4 mg disintegrating tablet 8 mg PO Q8H PRN PRN Nausea #20 tabs 03/09/23 [Rx Last Taken Unknown] pantoprazole 40 mg tablet,delayed release 40 mg PO DAILY #14 tabs 03/09/23 [Rx Last Taken Unknown] boric acid 10 % topical ointment ea topical 04/24/23 [History Last Taken Unknown] oxyquinoline 0.025 %-sodium lauryl sulfate 0.01 % vaginal gel (Trimo-Colon Jelly) 1 ea vaginal WE #113.4 grams 05/20/23 [Rx Last Taken Unknown] Allergy/AdvReac Type Severity Reaction Status Date / Time sulfamethoxazole Allergy Mild Other Verified 05/21/23 10:51 [From Bactrim] trimethoprim [From Bactrim] Allergy Mild Other Verified 05/21/23 10:51 chlorhexidine Allergy Rash Verified 05/21/23 10:52 [From ChloraPrep Clear] isopropyl alcohol Allergy Rash Verified 05/21/23 10:52 [From ChloraPrep Clear] potassium clavulanate Allergy Rash Verified 05/21/23 10:51 [From Augmentin] amoxicillin trihydrate AdvReac Rash Verified 05/21/23 10:51 [From Augmentin] Family History Father Heart disease CVA (cerebral vascular accident) Surgical History H/O tubal ligation Social History Smoking Status: Never smoker alcohol intake: current details: social substance use type: does not use caffeine: Yes frequency: 1-2 times per week seatbelt use: always do you feel safe at home: Yes 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 EXAM Physical Exam Const Vital Signs: 05/21/23 10:49 05/21/23 12:50 Temperature 97.3 F L Temperature Source Temporal Pulse Rate 85 68 Respiratory Rate 16 16 Blood Pressure 183/103 H 139/67 H Blood Pressure Mean 129 91 Pulse Ox 99 100 Oxygen Delivery Method Room Air Room Air MDM MDM MDM Narrative Medical decision making narrative: HISTORY OF PRESENT ILLNESS: 77-year-old female here with diffuse abdominal pain. She notes pain is epigastric rating to her back. Not associated syncope or chest pain. Denies any cough or shortness of breath. States is worse with lying flat. Is not worse after food. Denies history abdominal surgeries. States he does have history of GERD. Denies any melena or hematochezia. Denies any constipation diarrhea. Denies any urinary complaints vaginal bleeding or discharge. Patient denies sudden onset of pain, no tearing sensation, no migratory symptoms, no new numbness, weakness or loss of sensation. Patient denies family history or personal history of Marfan syndrome or Keagan-Danlos. REVIEW OF SYSTEMS: Pertinent positives: Abdominal pain Pertinent negatives: Chest pain, shortness of breath or syncope PHYSICAL EXAM: Nursing triage notes reviewed, Vital signs reviewed Constitutional: please see mdm HENT: MMM Eyes: Pupils equal round and reactive to light, Extraocular muscles intact Neck: No stridor, no JVD, full neck ROM Lungs: Clear to auscultation, No wheezing or rales. No increased work of breathing, no conversational dyspnea, no accessory muscle use, no nasal flaring. No respiratory distress noted Heart: Regular rate and rhythm, No murmurs, No rubs and No gallops, 2+ distal pulses (radial, femoral, posterior tibial) in all extremities Abdomen: Soft, there is no tenderness, rigidity, rebound or guarding, no obvious peritoneal signs, no palpable pulsatile abdominal masses, no auscultated abdominal bruit : No CVAT Extremities: No edema Neuro: No focal neurological deficits, cranial nerves II through XII intact, 5/5 strength in all extremities. Intact sensation to light touch in all extremities, 2+ reflexes bilateral patella tendons. Normal gait. No ataxia. Skin: No rash or lesions noted MEDICAL DECISION MAKING: Chief Complaint: Abdominal pain External records reviewed: CT scan abdomen pelvis from 05/15/2023 is remarkable for no definitive abnormality seen Factors affecting care: GERD, hypothyroidism Social determinants of health: Elderly History obtained from others: The patient's Consults: none ALL IMAGES (IF OBTAINED) HAVE BEEN PERSONALLY REVIEWED AND INTERPRETED BY MYSELF. [facility] Narrative: The patient was hemodynamically stable, afebrile, nontoxic-appearing. There is no stigmata of aortic pathology. She has symmetric pulses. There is no pulsatile abdominal masses or auscultated bruits. I considered the following differential diagnosis: ACS, arrhythmia, anemia, pancreatitis, hepatobiliary obstruction, gastritis, esophagitis I was less concerned about acute surgical abdominal processes o such as obstruction or perforation given recent negative CT scan. The patient abdominal exam was also reassuring. She was treated with medicines to empirically treat gastric irritation including Carafate and Pepcid. I suspect patient suffering from reflux. However she is elderly and postmenopausal so obtained a broad lab work-up to further elucidate the etiology patient complaints including ruling out ACS, arrhythmia and other mentioned differentials. Labs were remarkable for mild inflammation in the pancreas however there is no evidence of hepatobiliary obstruction. No evidence of significant systemic inflammation UTI myocardial ischemia. EKG had no evidence of arrhythmia. Chest x-ray was unremarkable. Patient's presentation clinically is most consistent with likely gastritis there also may be component of very mild pancreatic inflammation causing additional pain. Bowel rest was instructed and GI follow-up was recommended. The patient and/or family, caregivers express understanding. The patient and/or family, caregivers agrees with the plan. Total critical care time today provided was at least 0 minutes. This excludes separately billable procedures. Critical care time (if documented) is secondary to the patient having high probability of clinically significant/life threatening deterioration in the patient's condition which required my urgent intervention. Shared decision making: I will have a discussion with the patient and or visitors regarding risk/benefits of further testing or admission. They will be made aware of of the risk/benefits inherent in this decision they will be given the opportunity to voice understanding. Lab Data Attestation: I reviewed the patient's lab results. Lab results narrative: EKG with normal sinus rhythm, normal axis, normal intervals, no ST or T wave changes to suggest ischemia. No evidence of WPW, Brugada, ARVD. CBC without leukocytosis, severe anemia, no thrombocytopenia. BMP without significant Hailey abnormalities, no anion gap to suggest endorgan hypoperfusion, baseline renal insufficiency, LFTs show no evidence of hepatobiliary pathology. Lipase only mildly elevated is not consistent with acute pancreatitis may be a cause for the patient's pain Urinalysis shows no evidence of urinary inflammation suggestive of UTI Troponin is negative, no evidence of myocardial ischemia Labs: Laboratory Results - last 24 hr 05/21/23 05/21/23 05/21/23 11:13 11:33 11:33 WBC 6.2 RBC 4.73 Hgb 13.2 Hct 42.4 MCV 89.6 MCH 27.9 MCHC 31.1 L RDW Std Deviation 48.1 H RDW Coeff of Kimi 14.6 Plt Count 338 MPV 9.0 Immature Gran % (Auto) 0.200 Neut % (Auto) 57.4 Lymph % (Auto) 31.6 Glynn % (Auto) 7.9 Eos % (Auto) 1.8 Baso % (Auto) 1.1 H Absolute Neuts (auto) 3.6 Absolute Lymphs (auto) 1.96 Nucleated RBC % 0 Sodium 141 Potassium 4.0 Chloride 109 H Carbon Dioxide 26.0 Anion Gap 6 BUN 18 Creatinine 1.30 H Estim Creat Clear Calc 27.78 Est GFR (MDRD) Af Amer 51 L Est GFR (MDRD) Non-Af 42 L BUN/Creatinine Ratio 13.8 Glucose 97 Calcium 9.4 Total Bilirubin 0.40 Direct Bilirubin 0.16 AST 20 ALT 27 Alkaline Phosphatase 32 L Troponin I High Sens 7 Total Protein 7.7 Albumin 3.8 Globulin 3.9 Lipase 83 H Urine Color Yellow Urine Clarity Sl. Cloudy Urine pH 6.0 Ur Specific Wardell 1.015 Urine Protein Negative Urine Glucose (UA) Normal Urine Ketones Negative Urine Occult Blood Negative Urine Nitrite Negative Urine Bilirubin Negative Urine Urobilinogen Normal Ur Leukocyte Esterase 25 H Urine RBC 0 SEEN Urine WBC 0-5 SEEN Ur Squamous Epith Cells 0-5 SEEN Urine Bacteria 0 SEEN Urine Mucus 0 SEEN Radiography Diagnostic Testing: Clinical Impression(s) from Imaging Studies Chest X-Ray 05/21/23 11:27 IMPRESSION: No acute pulmonary process Electronically Signed: Elmer Kilgore MD at 12:10 EDT Reading Location ID and State: [address] [place] [address] , Service support , I have personally reviewed the patient's chest x-ray. Chest x-ray is unremarkable for pulmonary edema, pneumothorax, pneumonia or focal cardiopulmonary abnormality. Discharge Plan Triage Chief Complaint: Abd Pain ED Provider: Domenic Merrill Dx/Rx/DC Orders Clinical Impression: Abdominal pain, acute, epigastric, Acute inflammation of the pancreas Instructions: ED Pancreatitis Prescriptions: No Action estradiol [Estrace] 0.01 % (0.1 mg/gram) cream 1 g VAGINAL MOFR glucosamine HCl 500 mg tablet 500 mg PO DAILY triamcinolone acetonide 0.5 % cream 1 applic topical BID 7 Days Qty: 15 2RF Rx Instructions: peasized amount as instructed levothyroxine [Synthroid] 25 mcg tablet 25 mcg PO DAILY meclizine 25 mg tablet 25 mg PO DAILY PRN Calcium 600 with Vitamin D3 600 mg-10 mcg (400 unit) tablet,chewable PO d-mannose 500 mg capsule PO boric acid 10 % ointment topical fenofibric acid (choline) 135 mg capsule,delayed release(DR/EC) 135 mg PO DAILY Label Comments: Take 1 Capsule by mouth daily hydrocodone-acetaminophen [hydrocodone-acetaminophen] 5-325 mg tablet 1 tab PO Q6H PRN PRN (Reason: Pain) 3 Days Qty: 10 0RF pantoprazole 40 mg tablet,delayed release (DR/EC) 40 mg PO DAILY Qty: 14 0RF ondansetron [ondansetron] 4 mg tablet,disintegrating 8 mg PO Q8H PRN PRN (Reason: Nausea) Qty: 20 0RF Trimo-Colon Jelly 0.025-0.01 % gel 1 ea VAGINAL WE Qty: 113.4 2RF Primary Care Provider: Kiana Chaudhary Referrals: FriendRon DO [Med Staff - Active Staff] - Kiana Chaudhary, IT SECURITY CONSULTANT-C [Primary Care Provider] - Activity Restrictions/Additional Instructions: Thank you for trusting us with your care today! Please take Tylenol (2 pills, 650 mg), ibuprofen (2 pills, 400 mg) every 6 hours as needed for pain and fever control. While not definitive your pancreas enzyme was elevated this could lead to pain in the top of your abdomen. The treatment for this is bowel rest. This is accomplished by decreasing oral intake to either fasting or clear liquids and then advancing slowly as your pain will tolerate. Please return to the emergency department if your symptoms change or worsen. Please follow with your primary care physician for further outpatient evaluation and management. Disposition Disposition: Home, Self Care
--- NOTE | 2023-05-21 11:27 | RAD_ITS ---
STUDY: X-RAY CHEST REASON FOR EXAM: Female, 77 years old. Chest pain/pressure TECHNIQUE: Single AP portable view of the chest. COMPARISON: 05/16/2022 FINDINGS: EKG leads overlie the chest The lungs are clear and expanded. There is no demonstrated pleural abnormality. Normal size heart. Normal mediastinum and es. Normal visualized pulmonary arteries. Normal visualized aortic arch and descending thoracic aorta. There are diffuse degenerative changes of the visualized thoracic spine. Normal visualized ribs, clavicles, and shoulders. There is no demonstrated abnormality of the visualized soft tissue structures of the upper abdomen. RAD/Chest 1 View (Portable) IMPRESSION: No acute pulmonary process Electronically Signed: Elmer Kilgore MD at 12:10 EDT ,
[2023-05-21 11:41] LABS: Bacteria 0 SEEN /hpf (None Seen); Mucous, Urine 0 SEEN /hpf (<or=2+); Red Blood Cells-Urine 0 SEEN /hpf (0-5)
[2023-05-21 11:42] LABS: Absolute Lymphocyte Count 1.96 X10^3/uL (0.83-4.51); Absolute Neutrophil Count 3.6 X10^3/uL (2.0-7.7); Basophil# 0.07 X10^3/uL; Basophil% 1.1 % (0-1); Eosinophil# 0.11 X10^3/uL; Eosinophils% 1.8 % (0-5); Hematocrit 42.4 % (37-47); Hemoglobin 13.2 g/dL (12.0-15.0); Lymphocyte # 1.96 X10^3/ul (0.83-4.51); Lymphocyte % 31.6 % (19-41); Mean Corp Hgb Conc 31.1 g/dL (32-36); Mean Corpuscular Hgb 27.9 pg (27.0-32.0); Mean Corpuscular Volume 89.6 fL (81-99); Monocyte# 0.49 X10^3/uL; Monocyte% 7.9 % (0-10); NRBC Flagged by Analyzer 0 % (0-5); Neutrophil # 3.56 X10^3/uL (2.7-7.7); Neutrophil % 57.4 % (47-70); Platelet Count 338 K/mm3 (150-450); RBC Distribution Width CV 14.6 % (11.6-14.6); RBC Distribution Width SD 48.1 fl (35.1-43.9); Red Blood Count 4.73 M/mm3 (4.2-5.4); White Blood Count 6.2 K/mm3 (4.4-11.0)
[2023-05-21 11:44] LABS: Color, Urine Yellow (Yellow); Glucose, Dipstick Normal (Normal); Ketone-Dipstick Negative (Negative); Leukocyte Esterase-Dipstick 25 /ul (Negative); Nitrite-Dipstick Negative (Negative); Occult Blood-Urine Negative /ul (Negative); Protein-Dipstick Negative (Negative); Specific Gravity, Urine 1.015 (1.002-1.030); Urine Bilirubin Dipstick Negative (Negative); Urine Clarity Sl. Cloudy (Clear); Urine Urobilinogen Normal (Normal)
[2023-05-21] MEDS: 0.9% Normal Saline 1,000 ML 1000 ML IV (11:46)
[2023-05-21] MEDS: Sucralfate 1 GM Tablet PO (11:47)
[2023-05-21] MEDS: Ondansetron 4 MG/2 ML Vial IV (11:47)
[2023-05-21] MEDS: Famotidine 200 MG/20 ML MDV 20 MG in 0.9% Normal Saline (Pres. free 8 ML 300 MG IV (11:47)
[2023-05-21 11:53] LABS: Squamous Epithelial Cells - UA 0-5 SEEN /hpf (5-10); White Blood Cells 0-5 SEEN /hpf (0-5)
[2023-05-21 12:02] LABS: AST(SGOT) 20 U/L (15-37); Alanine Aminotransfer ALT/SGPT 27 U/L (13-56); Albumin, Serum 3.8 g/dL (3.2-5.0); Alkaline Phosphatase 32 U/L (45-117); Anion Gap 6 (5-15); BUN 18 mg/dL (7-18); BUN/Creat Ratio 13.8 RATIO (10-20); Bilirubin, Direct 0.16 mg/dL (0.00-0.30); Calcium,Total 9.4 mg/dL (8.5-10.1); Chloride 109 mmol/L (98-107); EST Glomerular Filtration Rate 42 mL/min (>60); Est Glom Filt Rate - Afr Amer 51 mL/min (>60); Estimated Creatinine Clearance 27.78 ml/min; Globulin 3.9 g/dL (2.2-4.2); Glucose 97 mg/dL (74-106); Lipase 83 U/L (13-75); Protein, Total 7.7 g/dL (6.4-8.2); Sodium Level 141 mmol/L (136-145); Troponin-I HS 7 pg/mL (3.0-54.0)
[2023-05-21 12:50] VITALS: BP 139/67; PULSE 68; RESP 16; O2SAT 100
== END 2023-05-21 13:14 | disposition home or self-care (01) ==
PROVIDERS: Emergency Provider Emergency Medicine; PCP Nurse Practitioner Family; Visit Provider Emergency Medicine
DX: K85.90 Acute pancreatitis without necrosis or infection, unspecified (principal); K21.9 Gastro-esophageal reflux disease without esophagitis; E03.9 Hypothyroidism, unspecified; E78.5 Hyperlipidemia, unspecified
CPT/HCPCS: 71045; 80048; 80076; 81001; 83690; 84484; 85025; 93005; 96361; 96365; 96375; 99284; J7030; A4216; J2405; J3490

== ENCOUNTER → 2023-07-16 | Outpatient (CLI) | payer MEDICARE, SELFPAY ==
[2023-07-16 10:52] LABS: Albumin, Serum 3.5 g/dL (3.2-5.0); BUN 18 mg/dL (7-18); BUN/Creat Ratio 14.9 RATIO (10-20); Calcium,Total 8.8 mg/dL (8.5-10.1); Chloride 108 mmol/L (98-107); Creatinine, Serum 1.21 mg/dL (0.55-1.02); EST Glomerular Filtration Rate 46 mL/min (>60); Est Glom Filt Rate - Afr Amer 56 mL/min (>60); Glucose 100 mg/dL (74-106); Phosphorus 3.2 mg/dL (2.5-4.9); Potassium 4.2 mmol/L (3.5-5.1); Sodium Level 141 mmol/L (136-145)
== END | disposition home or self-care (01) ==
LOC: LAB 09:22
PROVIDERS: PCP Nurse Practitioner Family; Referring Provider Internal Medicine Nephrology; Visit Provider Internal Medicine Nephrology
DX: N18.31 Chronic kidney disease, stage 3a (principal)
CPT/HCPCS: 36415; 80069

== ENCOUNTER → 2023-10-10 | Outpatient (CLI) | payer MEDICARE, SELFPAY ==
[2023-10-10 07:43] LABS: Absolute Lymphocyte Count 1.59 X10^3/uL (0.83-4.51); Absolute Neutrophil Count 2.3 X10^3/uL (2.0-7.7); Basophil# 0.08 X10^3/uL; Basophil% 1.8 % (0-1); Eosinophil# 0.14 X10^3/uL; Eosinophils% 3.1 % (0-5); Hemoglobin 12.6 g/dL (12.0-15.0); Lymphocyte # 1.59 X10^3/ul (0.83-4.51); Mean Corp Hgb Conc 31.5 g/dL (32-36); Mean Corpuscular Hgb 27.5 pg (27.0-32.0); Mean Corpuscular Volume 87.3 fL (81-99); Mean Platelet Vol. 9.2 fl (6.2-12.0); Monocyte% 8.8 % (0-10); NRBC Flagged by Analyzer 0 % (0-5); Neutrophil # 2.32 X10^3/uL (2.7-7.7); Neutrophil % 51.1 % (47-70); Platelet Count 376 K/mm3 (150-450); RBC Distribution Width CV 13.5 % (11.6-14.6); RBC Distribution Width SD 43.2 fl (35.1-43.9); Red Blood Count 4.58 M/mm3 (4.2-5.4); White Blood Count 4.5 K/mm3 (4.4-11.0)
--- NOTE | 2023-10-10 07:52 | US_ITS ---
STUDY: ABDOMINAL ULTRASOUND REASON FOR EXAM: Female, 77 years old. abdominal pain TECHNIQUE: Transabdominal ultrasound was performed with real-time and static forde scale imaging. TECHNICAL QUALITY: Adequate. COMPARISON: None. FINDINGS: Liver: The liver measures 15.1 cm. There is increased echogenicity consistent with fatty infiltration. The bile ducts are within normal limits. There is hepatic color flow. The direction of portal flow is hepatopetal. There is no demonstrated mass lesion. Portal vein measurement: Gallbladder: Normal distended gallbladder. The gallbladder wall measures 2 mm. There is a negative sonographic Goodman''s sign. There is no pericholecystic fluid. There are no gallstones. Common Bile Duct (C.B.D.): The common bile duct measures 4 mm. Pancreas: Normal size of the head, body and tail of the pancreas. There is normal echogenicity of the pancreas. There is no demonstrated pancreatic mass or cyst. Spleen: Normal size of the spleen. The spleen measures 8.9 cm. Right Kidney: Normal size of the right kidney. The right kidney measures 10.6 cm. Normal renal cortex. The right cortex measures 1.2 cm. There is no demonstrated renal mass or cyst. There is no right hydronephrosis. Left Kidney: Normal size of the left kidney. The left kidney measures 10.5 cm. Normal renal cortex. The left cortex measures 1.7 cm. 6 cm cyst lower pole left kidney. There is no left hydronephrosis. Aorta: No abdominal aortic aneurysm. I.V.C.: The IVC is patent. There is no ascites. US/Abdomen Complete IMPRESSION: 1. Fatty infiltration liver. 2. 6 cm left renal cyst. Electronically Signed: Faizan Hodges MD at 22:47 EST ,
[2023-10-10 08:17] LABS: Amylase 40 U/L (25-115); Cholesterol 147 mg/dL (200); High Density Lipoprotein 57 mg/dL; Lipase 61 U/L (13-75); Thyroid Stim Hormone (TSH) 4.52 uIU/mL (0.358-3.74); Triglycerides 139 mg/dL; Very Low Density Lipoprotein 28 mg/dL (5-40)
[2023-10-10 08:18] LABS: Color, Urine Yellow (Yellow); Glucose, Dipstick Normal (Normal); Ketone-Dipstick Negative (Negative); Leukocyte Esterase-Dipstick 25 /ul (Negative); Nitrite-Dipstick Negative (Negative); Occult Blood-Urine Negative /ul (Negative); Protein-Dipstick Negative (Negative); Specific Gravity, Urine 1.015 (1.002-1.030); Urine Bilirubin Dipstick Negative (Negative); Urine Clarity Sl. Cloudy (Clear); Urine Urobilinogen Normal (Normal)
[2023-10-11 22:25] LABS: AST(SGOT) 26 U/L (15-37); Alanine Aminotransfer ALT/SGPT 24 U/L (13-56); Albumin, Serum 3.7 g/dL (3.2-5.0); Alkaline Phosphatase 33 U/L (45-117); Anion Gap 2 (5-15); BUN 23 mg/dL (7-18); Calcium,Total 8.8 mg/dL (8.5-10.1); Chloride 111 mmol/L (98-107); Creatinine, Serum 1.28 mg/dL (0.55-1.02); EST Glomerular Filtration Rate 43 mL/min (>60); Est Glom Filt Rate - Afr Amer 52 mL/min (>60); Globulin 3.6 g/dL (2.2-4.2); Glucose 97 mg/dL (74-106); Potassium 4.5 mmol/L (3.5-5.1); Protein, Total 7.3 g/dL (6.4-8.2); Sodium Level 139 mmol/L (136-145)
== END | disposition home or self-care (01) ==
PROVIDERS: PCP Nurse Practitioner Family; Referring Provider Nurse Practitioner Family; Visit Provider Nurse Practitioner Family
DX: E03.9 Hypothyroidism, unspecified (principal); N18.31 Chronic kidney disease, stage 3a; E78.5 Hyperlipidemia, unspecified; R74.8 Abnormal levels of other serum enzymes; R10.9 Unspecified abdominal pain
CPT/HCPCS: 36415; 76700; 80053; 80061; 81002; 82150; 83690; 84443; 85025

== ENCOUNTER → 2024-01-29 | Outpatient (CLI) | payer MEDICARE, SELFPAY ==
--- NOTE | 2024-01-29 09:07 | BD_ITS ---
STUDY: DUAL ENERGY X-RAY ABSORPTIOMETRY / DXA REASON FOR EXAM: Female, 78 years old. [id number] TECHNIQUE: Bone Mineral Density (BMD) measurements of lumbar spine and bilateral hips were obtained. COMPARISON: Comparison is made with prior study of February 28, 2021. FINDINGS: Lumbar Spine (L1-L4): g/cm2 (0.820) / T-score (-1.9) / Z-score (0.6) Findings are suggestive of osteopenia with a moderate fracture risk. Left Femur Total: g/cm2 (0.945) / T-score (0.0) / Z-score (1.9) Left Femoral Neck: g/cm2 (0.695) / T-score (-1.4) / Z-score (0.8) Right Femur Total: g/cm2 (0.963) / T-score (0.2) / Z-score (2.1) Right Femoral Neck: g/cm2 (0.681) / T-score (-1.5) / Z-score (0.7) The T-Scores on the most recent prior examination were: Lumbar Spine (L1-L4): There has been worsening of bone density since the previous examination. Left Femur Total: which represents a worsening of 0.1%. Right Femur Total: which represents an improvement of 5.6%. BD/Dexa Bone Density Study IMPRESSION: The patient is considered osteopenic as outlined below according to World Jorje Organization (WHO) criteria with a moderate fracture risk. There has been worsening of bone density since the previous examination. Reference Information: The T-score is the number of standard deviations above or below the standard which is normal for young adults at their peak bone mineral density. The World Health Organization (WHO) interprets the T-scores as follows: Above -1 Normal bone density Between -1 and -2.5 Osteopenia Equal to / or below -2.5 Osteoporosis As a practical clinical guideline, osteopenia may be graded as follows: Mild -1 through -1.5 Moderate -1.6 through -2.0 Severe -2.1 through -2.4 The Z-score is the number of standard deviations above or below age-matched controls. A Z-score of less than -1.5 would be considered abnormal. References: 1. NIH Osteoporosis and Related Bone Diseases www osteo.org 2. International Society for Clinical Densitometry www iscd.org 3. National Osteoporosis Foundation www nof.org Electronically Signed: Stew Hill MD at 9:03 EST ,
== END | disposition home or self-care (01) ==
LOC: OPBD 09:01
PROVIDERS: PCP Nurse Practitioner Family; Referring Provider Nurse Practitioner Family; Visit Provider Nurse Practitioner Family
DX: Z78.0 Asymptomatic menopausal state (principal)
CPT/HCPCS: 77080

== ENCOUNTER → 2024-06-29 | Outpatient (CLI) | payer MEDICARE, SELFPAY ==
[2024-06-29 09:38] LABS: ALB/GLOB Ratio 0.9 RATIO (0.9-2.4); AST(SGOT) 19 U/L (15-37); Alanine Aminotransfer ALT/SGPT 20 U/L (13-56); Albumin, Serum 3.7 g/dL (3.2-5.0); Alkaline Phosphatase 30 U/L (45-117); Anion Gap 7 (5-15); BUN 18 mg/dL (7-18); BUN/Creat Ratio 13.3 RATIO (10-20); Calcium,Total 9.1 mg/dL (8.5-10.1); Chloride 108 mmol/L (98-107); Cholesterol 162 mg/dL (200); Creatinine, Serum 1.35 mg/dL (0.55-1.02); EST Glomerular Filtration Rate 40 mL/min (>60); Est Glom Filt Rate - Afr Amer 49 mL/min (>60); Globulin 3.9 g/dL (2.2-4.2); Glucose 89 mg/dL (74-106); High Density Lipoprotein 58 mg/dL; Potassium 4.3 mmol/L (3.5-5.1); Protein, Total 7.6 g/dL (6.4-8.2); Sodium Level 141 mmol/L (136-145); T4 Free Direct 0.83 ng/dL (0.76-1.46); Thyroid Stim Hormone (TSH) 3.87 uIU/mL (0.358-3.74); Triglycerides 196 mg/dL; Very Low Density Lipoprotein 39 mg/dL (5-40)
[2024-07-01 12:11] LABS: Vitamin D 1,25-Dihydroxy 43.7 pg/mL (24.8-81.5)
== END | disposition home or self-care (01) ==
LOC: LAB 07:30
PROVIDERS: PCP Nurse Practitioner Family; Referring Provider Nurse Practitioner Family; Visit Provider Nurse Practitioner Family
DX: N18.31 Chronic kidney disease, stage 3a (principal); E03.9 Hypothyroidism, unspecified; E55.9 Vitamin D deficiency, unspecified
CPT/HCPCS: 36415; 80053; 80061; 82652; 84439; 84443

== ENCOUNTER → 2025-01-10 | Outpatient (CLI) | payer MEDICARE, SELFPAY ==
--- NOTE | 2025-01-10 10:53 | BI_ITS ---
PROCEDURE: SCRN MAMM (CAD)W/MARIO BILAT REASON FOR EXAM: F, Age 79 y/o, inversion of the left nipple. Palpable lump at that site. TECHNIQUE: Bilateral screening digital breast tomosynthesis with 2D and 3D images. Computer aided detection. COMPARISON: None. This is a baseline mammogram. FINDINGS: There are scattered areas of fibroglandular density. There is inversion of the left nipple with thickening of the periareolar region. There is a 11.5 mm by 5.8 mm nodule in the retroareolar region of the left breast. Correlation with ultrasound recommended. BI/SCRN MAMM (CAD)W/MARIO BILAT IMPRESSION: BI-RADS 0: INCOMPLETE - NEED ADDITIONAL IMAGING EVALUATION. Follow-up code: Ultrasound Recommended inversion of the left nipple with nodula r density at that site. Correlation with ultrasound recommended. The patient will be notified of the results by letter. Reading Location: [place] [address]
== END | disposition home or self-care (01) ==
LOC: OPBI 10:52
PROVIDERS: PCP Nurse Practitioner Family; Referring Provider Nurse Practitioner Women's Health; Visit Provider Nurse Practitioner Women's Health
DX: Z12.31 Encounter for screening mammogram for malignant neoplasm of breast (principal)
CPT/HCPCS: 77063; 77067

== ENCOUNTER → 2025-01-12 | Outpatient (CLI) | payer MEDICARE, SELFPAY ==
--- NOTE | 2025-01-12 12:51 | US_ITS ---
PROCEDURE: BREAST LIMITED UNILATERAL REASON FOR EXAM: Abnormal screening mammogram. COMPARISON: Comparison is made with prior mammogram dated January 10, 2024. TECHNIQUE: Targeted breast ultrasound. FINDINGS: LEFT: Ultrasound targeted to the retroareolar region of the left breast. The mammographic abnormality corresponds to a 9 mm x 9 mm x 10 mm hypoechoic irregular nodule with increased vascularity. This is a suspicious lesion. Biopsy recommended. US/Breast Limited Unilateral IMPRESSION: Biopsy recommended. BI-RADS 4: SUSPICIOUS ABNORMALITY. Reading Location: [place] [address]
== END | disposition home or self-care (01) ==
PROVIDERS: PCP Nurse Practitioner Family; Referring Provider Nurse Practitioner Women's Health; Visit Provider Nurse Practitioner Women's Health
DX: N63.20 Unspecified lump in the left breast, unspecified quadrant (principal); R92.8 Other abnormal and inconclusive findings on diagnostic imaging of breast
CPT/HCPCS: 76642

== ENCOUNTER 2025-01-28 06:28 | Day surgery (SDC) | payer MEDICARE, SELFPAY ==
--- NOTE | 2025-01-20 16:04 | PAT.ANESEVAL ---
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 When Was Last Pacemaker Check QUESTION #4 FULL TEXT: You/Your Family Experience fever (hyperthermia) with Anesthesia Last Oral Intake Last Oral intake: Last Oral Intake NPO since Meds taken in AM with sips of water? Meds patient instructed to take am of surgery PONV PONV - industrial sales manager: PONV - industrial sales manager Female Yes 01/20/25 14:36 HX of Motion Sickness Yes 01/20/25 14:36 HX of N/V After Surgery No 01/20/25 14:36 Non-Smoker Yes 01/20/25 14:36 Duration of Surgery greater No 01/20/25 14:36 than 60 minutes Number of Risk Factors 3 01/20/25 14:36 PONV Score Moderate Risk 01/20/25 14:36 Height & Weight Height & Weight: Anesthesia: Height & Weight Height 5 ft 1 in 01/18/25 08:43 Respiratory Assessment Respiratory Assessment - industrial sales manager: Respiratory Tract Infection Hx - industrial sales manager Hx Respiratory Tract Infection No 01/20/25 14:36 STOP Sleep Apnea STOP Sleep Apnea - industrial sales manager: STOP Sleep Apnea - industrial sales manager Hx Hypertension No 01/20/25 14:36 Hx Sleep Apnea No 01/20/25 14:36 CPAP BIPAP Do you snore loudly (louder Yes 01/20/25 14:36 than talking or can be heard Do you often feel tired/ No 01/20/25 14:36 fatigued/ sleepy during daytime? Has anyone observed you stop No 01/20/25 14:36 breathing during sleep? STOP Results Negative 01/20/25 14:36 QUESTION #5 FULL TEXT : Do you snore loudly (louder than talking or can be heard through closed doors)? Tobacco Use History Tobacco Use History - industrial sales manager: Tobacco Use History - industrial sales manager Tobacco Use Non-smoker 04/14/21 19:48 Smoking Status Never smoker 01/20/25 14:36 Hx Tobacco Use No 01/20/25 14:36 Years Smoking Packs Smoked per Day Smoking Cessation Date was within the last 15 years Hx Smoking Cessation Date Hx Smoking Cessation Counseling Hematologic Medial History Hematologic Hx - industrial sales manager: Hematologic Medical Hx - appeals coordinator Hx of Blood Transfusion No 01/20/25 14:36 Hx of Transfusion in last 3 No 01/20/25 14:36 Months Date of Last Transfusion (if within last 3 months) Ever experience any problems No 01/20/25 14:36 with transfusion(s)? Specify any problems Hx of Preganancy in last 3 No 01/20/25 14:36 Months Nurse Filling Out Transfusion DSCHRIBER 01/20/25 14:36 & Questions: Date: 01/20/25 01/20/25 14:36 Time: 14:38 01/20/25 14:36 Patient unable to answer at this time (ie. confused, unrespo /Reproduction History /Reproductive History - industrial sales manager: /Reproductive Hx- industrial sales manager Hx Now No 01/20/25 14:36 Gestational Age (in weeks): EDC: Hx Hx Para Hx Section SAB No 01/20/25 14:36 PFSH Medical History (Updated 01/20/25 @ 14:49 by Jeaneth Peace) Wears glasses Post-menopausal Arthritis Low iron Fatty liver History of hiatal hernia Non-smoker History of pain when walking History of echocardiogram History of stress test Osteoporosis GERD (gastroesophageal reflux disease) Vertigo Hyperlipidemia Home Medications ?Medication ?Instructions ?Recorded ?Last Taken ?Type estradiol 0.01% (0.1 mg/gram) 1 g vaginal MOFR 12/17/17 02/25/22 History vaginal cream (Estrace) fenofibric acid (choline) 135 mg 135 mg PO DAILY 02/28/22 02/27/22 History capsule,delayed release calcium 600 mg (as carbonate)-vit 1 tab PO DAILY 06/05/22 Unknown History D3 10 mcg (400 unit) chewable tablet (Calcium 600 with Vitamin D3) meclizine 25 mg tablet 25 mg PO DAILY PRN vertigo 06/05/22 Unknown History pantoprazole 40 mg tablet,delayed 40 mg PO DAILY #14 tabs 03/09/23 Unknown Rx release nystatin 100,000 unit/gram topical 1 applic topical DAILY PRN SKIN 04/20/24 Unknown History ointment Mccoy Revive 2 cap PO DAILY 10/18/24 Unknown History cartilage revive 2 cap PO DAILY 10/18/24 Unknown History ascorbic acid (vitamin C) 500 mg 500 mg PO DAILY 01/20/25 Unknown History tablet (C-500) boric acid 600 mg vaginal 600 mg vaginal WE 01/20/25 Unknown History suppository d-mannose 500 mg capsule 500 mg PO BID 01/20/25 Unknown History vitamin E 268 mg (400 unit) capsule 268 mg PO DAILY 01/20/25 Unknown History Allergy/AdvReac Type Severity Reaction Status Date / Time sulfamethoxazole (From Allergy Mild Other Verified 01/20/25 14:29 Bactrim) trimethoprim (From Bactrim) Allergy Mild Other Verified 01/20/25 14:29 chlorhexidine (From Allergy Rash Verified 01/20/25 14:29 ChloraPrep Clear) isopropyl alcohol (From Allergy Rash Verified 01/20/25 14:29 ChloraPrep Clear) potassium clavulanate (From Allergy Rash Verified 01/20/25 14:29 Augmentin) amoxicillin trihydrate (From AdvReac Rash Verified 01/20/25 14:29 Augmentin) Family History Father Heart disease CVA (cerebral vascular accident) Surgical History (Updated 01/20/25 @ 14:49 by Jeaneth Peace) History of surgery on wrist History of surgery on wrist History of esophagogastroduodenoscopy (EGD) Hx of colonoscopy H/O tubal ligation Social History Smoking Status: Never smoker alcohol intake: current details: social substance use type: does not use caffeine: Yes frequency: 1-2 times per week seatbelt use: always do you feel safe at home: Yes additional social history: (Matias) Audit: Pertinent Findings Pertinent Findings EKG Perinent findings: NSR with nonspecific ST abnormality/Occasional PVC'S Pulmonary function results/spirometer pertinent findings: n/a Recommendation Anesthesia Recommendation Anesthesia recommendation: OPTIMIZED for anesthesia
[2025-01-28] VITALS (10 sets, daily range): BP systolic 125–164; BP diastolic 72–103; PULSE 74–84; RESP 16–18; TEMP 36–36.6; O2SAT 95–100; BMI 33.8
[2025-01-28] MEDS: 0.9% Normal Saline (1000mL) 1,000 ML 15 ML IV (06:59)
--- NOTE | 2025-01-28 07:39 | PCM.PRE.AN2 ---
ASA Classification* ASA Classification ASA Classification: 2 Assessment & Plan Anesthesia* Anesthesia Assessment Anesthesia Assessment: Discussed sedation and/or anesthesia options, risks, benefits, and alternatives with patient/parents/legal guardian/POA. Questions invited. The patient/parents/legal guardian/POA seems to understand and agrees to proceed with anesthesia plan. Reviewed the physical assessment, medical history, allergy history and patient home medications list prior to surgery/procedure/anesthetic and documented any changes. Performed airway and anesthesia risk assessments. Anesthesia Type Anesthesia Type: General History Source History Obtained from:: Patient and Chart Anesthesia Focused Assessment* Temperature: 97.7 F Pulse Rate: 74 Blood Pressure: 152/85 Respiratory Rate: 16 Pulse Ox: 99 Oxygen Delivery Method: Room Air Airway Assessment Mouth opens: 2 cm Mallampati Score: I Teeth Condition: Partial (Permanent upper bridge.) Neck Range of motion (ROM): Full ROM Focused Labs Anesthesia Preop lab: CBC WBC 4.5 K/mm3 (4.4-11.0) 10/10/23 07:29 10/10/23 RBC 4.58 M/mm3 (4.2-5.4) 10/10/23 07:29 10/10/23 Hgb 12.6 g/dL (12.0-15.0) 10/10/23 07:29 10/10/23 Hct 40.0 % (37-47) 10/10/23 07:29 10/10/23 Plt Count 376 K/mm3 (150-450) 10/10/23 07:29 10/10/23 CHEMISTRY Potassium 4.3 mmol/L (3.5-5.1) 06/29/24 07:33 06/29/24 Sodium 141 mmol/L (136-145) 06/29/24 07:06/29/24 Magnesium 2.2 mg/dL (1.6-2.6) 05/16/22 01:22 05/16/22 Phosphorus 3.2 mg/dL (2.5-4.9) 07/16/23 09:24 07/16/23 BUN 18 mg/dL (7-18) 06/29/24 07:33 06/29/24 Creatinine 1.35 mg/dL (0.55-1.02) H 06/29/24 07:33 06/29/24 Glucose 89 mg/dL (74-106) 06/29/24 07:33 06/29/24 TSH 3.87 uIU/mL (0.358-3.74) H 06/29/24 07:33 06/29/24 COAG PT 13.5 SECONDS (11.7-14.9) 04/23/16 21:05 04/23/16 Pre-Assessment Diagnosis/Proposed Procedure Planned Operative Procedure(s): U/S GUIDED LEFT EXCISIONAL BREAST BIOPSY Anesthesia History Anesthesia History - federal java developer: Anesthesia History - federal java developer Hx Hospitalization No 01/20/25 14:36 Any Problems With Anesthesia No 01/20/25 14:36 Cholinesterase deficiency No 01/20/25 14:36 You/Your Family Experience No 01/20/25 14:36 fever (hyperthermia) with Relationship Recent Exposure to Contagious No 01/28/25 07:00 Disease Does patient have nerve No 01/20/25 14:36 stimulator Patient instructed to have device shut off --Does patient have Pacemaker No 01/28/25 07:00 or ICD? When Was Last Pacemaker Check QUESTION #4 FULL TEXT: You/Your Family Experience fever (hyperthermia) with Anesthesia Last Oral Intake Last Oral intake: Last Oral Intake NPO since 04:30 01/28/25 07:00 Meds taken in AM with sips of Yes 01/28/25 07:00 water? Meds patient instructed to take am of surgery Any additional information?: Yes NPO since: 04:30 (Patient had apple juice at 4:30 AM) Meds taken in AM with sips of water?: Yes PONV PONV - federal java developer: PONV - federal java developer Female Yes 01/20/25 14:36 HX of Motion Sickness Yes 01/20/25 14:36 HX of N/V After Surgery No 01/20/25 14:36 Non-Smoker Yes 01/20/25 14:36 Duration of Surgery greater No 01/20/25 14:36 than 60 minutes Number of Risk Factors 3 01/20/25 14:36 PONV Score Moderate Risk 01/20/25 14:36 Height & Weight Height & Weight: Anesthesia: Height & Weight Height 5 ft 1 in 01/28/25 07:00 Weight: 81.2 kg 01/28/25 07:00 Body Mass Index (BMI) 33.8 01/28/25 07:00 Respiratory Assessment Respiratory Assessment - federal java developer: Respiratory Tract Infection Hx - federal java developer Hx Respiratory Tract Infection No 01/20/25 14:36 STOP Sleep Apnea STOP Sleep Apnea - federal java developer: STOP Sleep Apnea - federal java developer Hx Hypertension No 01/20/25 14:36 Hx Sleep Apnea No 01/20/25 14:36 CPAP BIPAP Do you snore loudly (louder Yes 01/20/25 14:36 than talking or can be heard Do you often feel tired/ No 01/20/25 14:36 fatigued/ sleepy during daytime? Has anyone observed you stop No 01/20/25 14:36 breathing during sleep? STOP Results Negative 01/20/25 14:36 QUESTION #5 FULL TEXT : Do you snore loudly (louder than talking or can be heard through closed doors)? Tobacco Use History Tobacco Use History - federal java developer: Tobacco Use History - federal java developer Tobacco Use Non-smoker 04/14/21 19:48 Smoking Status Never smoker 01/20/25 14:36 Hx Tobacco Use No 01/20/25 14:36 Years Smoking Packs Smoked per Day Smoking Cessation Date was within the last 15 years Hx Smoking Cessation Date Hx Smoking Cessation Counseling Hematologic Medial History Hematologic Hx - federal java developer: Hematologic Medical Hx - medical management trainer Hx of Blood Transfusion No 01/20/25 14:36 Hx of Transfusion in last 3 No 01/20/25 14:36 Months Date of Last Transfusion (if within last 3 months) Ever experience any problems No 01/20/25 14:36 with transfusion(s)? Specify any problems Hx of Preganancy in last 3 No 01/20/25 14:36 Months Nurse Filling Out Transfusion DSCHRIBER 01/20/25 14:36 & Questions: Date: 01/20/25 01/20/25 14:36 Time: 14:38 01/20/25 14:36 Patient unable to answer at this time (ie. confused, unrespo /Reproduction History /Reproductive History - federal java developer: /Reproductive Hx- federal java developer Hx Now No 01/20/25 14:36 Gestational Age (in weeks): EDC: Hx Hx Para Hx Section SAB No 01/20/25 14:36 Active Medications Active Medications: Current Medications Generic Name Dose Route Start Last Admin Trade Name Rosalba PRN Reason Stop Dose Admin Clindamycin Phosphate 900 mg in 50 mls @ 75 mls/hr 01/28/25 08:35 Cleocin IV 01/28/25 09:14 PREOP ONE Sodium Chloride 1,000 mls @ 15 mls/hr 01/28/25 06:40 01/28/25 06:59 IV 02/02/25 19:59 15 mls/hr .Q48H ASHISH Administration Protocol [facility] Medical History Wears glasses Post-menopausal Arthritis Low iron Fatty liver History of hiatal hernia Non-smoker History of pain when walking History of echocardiogram History of stress test Osteoporosis GERD (gastroesophageal reflux disease) Vertigo Hyperlipidemia Home Medications ?Medication ?Instructions ?Recorded ?Last Taken ?Type estradiol 0.01% (0.1 mg/gram) 1 g vaginal MOFR 12/17/17 01/24/25 History vaginal cream (Estrace) fenofibric acid (choline) 135 mg 135 mg PO DAILY 02/28/22 01/27/25 History capsule,delayed release calcium 600 mg (as carbonate)-vit 1 tab PO DAILY 06/05/22 01/27/25 History D3 10 mcg (400 unit) chewable tablet (Calcium 600 with Vitamin D3) meclizine 25 mg tablet 25 mg PO DAILY PRN vertigo 06/05/22 Unknown History pantoprazole 40 mg tablet,delayed 40 mg PO DAILY #14 tabs 03/09/23 01/28/25 Rx release nystatin 100,000 unit/gram topical 1 applic topical DAILY PRN SKIN 04/20/24 01/27/25 History ointment Mccoy Revive 2 cap PO DAILY 10/18/24 01/27/25 History cartilage revive 2 cap PO DAILY 10/18/24 01/27/25 History ascorbic acid (vitamin C) 500 mg 500 mg PO DAILY 01/20/25 01/27/25 History tablet (C-500) boric acid 600 mg vaginal 600 mg vaginal WE 01/20/25 01/27/25 History suppository d-mannose 500 mg capsule 500 mg PO BID 01/20/25 01/27/25 History vitamin E 268 mg (400 unit) capsule 268 mg PO DAILY 01/20/25 01/27/25 History Allergy/AdvReac Type Severity Reaction Status Date / Time sulfamethoxazole (From Allergy Mild Other Verified 01/28/25 06:38 Bactrim) trimethoprim (From Bactrim) Allergy Mild Other Verified 01/28/25 06:38 chlorhexidine (From Allergy Rash Verified 01/28/25 06:38 ChloraPrep Clear) isopropyl alcohol (From Allergy Rash Verified 01/28/25 06:38 ChloraPrep Clear) potassium clavulanate (From Allergy Rash Verified 01/28/25 06:38 Augmentin) amoxicillin trihydrate (From AdvReac Rash Verified 01/28/25 06:38 Augmentin) Family History Father Heart disease CVA (cerebral vascular accident) Surgical History History of surgery on wrist History of surgery on wrist History of esophagogastroduodenoscopy (EGD) Hx of colonoscopy H/O tubal ligation Social History Smoking Status: Never smoker alcohol intake: current details: social substance use type: does not use caffeine: Yes frequency: 1-2 times per week seatbelt use: always do you feel safe at home: Yes additional social history: (Matias) Review of Systems (Anesthesia) ROS Narrative System reviewed and no additional complaints, except as documented.
--- NOTE | 2025-01-28 08:00 | PCM.HP.BLA ---
History and Physical Date of Admission: 01/28/25 Intake Vital Signs 01/03/2510:22 01/18/2508:43 Height 5 ft 1 in 5 ft 1 in Weight: 180 lb BMI 34.0 BP 172/87 H Blood Pressure Location Rt brachial Position Sitting Respiration 17 Pulse 73 Pulse Source Monitor Pulse Oximetry (%) 98 Oxygen Delivery Method room air Intake Visit Reasons: BIRADS 4 Chief Complaint: birads 4 Is patient in pain?: No Allergies sulfamethoxazole (From Bactrim) Allergy (Mild, Verified 01/18/25 08:44) Othertrimethoprim (From Bactrim) Allergy (Mild, Verified 01/18/25 08:44) Otherchlorhexidine (From ChloraPrep Clear) Allergy (Verified 01/18/25 08:44) Rashisopropyl alcohol (From ChloraPrep Clear) Allergy (Verified 01/18/25 08:44) Rashpotassium clavulanate (From Augmentin) Allergy (Verified 01/18/25 08:44) Rashamoxicillin trihydrate (From Augmentin) Adverse Reaction (Verified 01/18/25 08:44) Rash Medications ?Medication ?Instructions ?Recorded ?Confirmed ?Type estradiol 0.01% (0.1 mg/gram) 1 g vaginal MOFR 12/17/17 01/18/25 History vaginal cream (Estrace) glucosamine HCl 500 mg tablet 500 mg PO DAILY 01/05/19 01/18/25 History fenofibric acid (choline) 135 mg 135 mg PO DAILY 02/28/22 01/18/25 History capsule,delayed release calcium 600 mg (as carbonate)-vit tab PO 06/05/22 01/18/25 History D3 10 mcg (400 unit) chewable tablet (Calcium 600 with Vitamin D3) meclizine 25 mg tablet 25 mg PO DAILY PRN 06/05/22 01/18/25 History hydrocodone-acetaminophen 5-325mg 1 tab PO Q6H PRN PRN Pain 3 days 03/09/23 01/18/25 Rx 5mg-325mg #10 TABLETS ondansetron 4 mg disintegrating 8 mg (2 x 4 mg) PO Q8H PRN PRN 03/09/23 01/18/25 Rx tablet Nausea #20 tabs pantoprazole 40 mg tablet,delayed 40 mg PO DAILY #14 tabs 03/09/23 01/18/25 Rx release boric acid 10 % topical ointment ea topical 04/24/23 01/18/25 History nystatin 100,000 unit/gram topical 1 applic topical DAILY 04/20/24 01/18/25 History ointment Mccoy Revive PO 10/18/24 01/18/25 History cartilage revive PO 10/18/24 01/18/25 History Have you fallen in the past year?: No PFSH Medical History Vision loss of left eye Vision loss of right eye Osteoporosis GERD (gastroesophageal reflux disease) Vertigo Hyperlipidemia Surgical History H/O tubal ligation Family History Father Heart disease CVA (cerebral vascular accident) Social History Smoking Status: Never smoker alcohol intake: current details: social substance use type: does not use caffeine: Yes frequency: 1-2 times per week seatbelt use: always do you feel safe at home: Yes additional social history: (Matias) HPI HPI HPI: The patient is a 79-year-old female who comes in with a palpable lump in the left breast under the nipple and an inverted nipple. She says she has never had a mammogram before this 1. She has no family history of breast cancer. It is not painful. She does not note any nipple discharge. ROS General General: No weight change, appetite, fatigue, colon cancer, breast cancer or weakness HEENT HEENT: No difficulty swallowing, eye injury, eye surgery, swollen glands or hoarseness Endo Endocrine: No thyroid disease, diabetes mellitus, thyroid cancer, Hair loss, heat intolerance or cold intolerance Skin Skin: No rash or changing moles Breast Breast: Yes left breast lump, abnormal mammogram and abnormal US; No right breast lump, nipple discharge, breast pain or breast enlargement Musc Musculoskeletal: Yes back problems and arthritis; No rheumatoid arthritis, gout or joint pain Cardio Cardiovascular: No murmur, pacemaker, heart disease, atrial fibrillation, high blood pressure, heart attack, heart stent, palpitations, shortness of breat with exertion or chest pain Psych Psychiatric: No depression, anxiety or hearing voices Resp Respiratory: No shortness of breath, No sleep apnea, No cough, No COPD, No asthma, No emphysema and No wheezing Gastro Gastrointestinal: No abdominal pain, Yes nausea or vomiting, No diarrhea, No constipation, No blood in stool, Yes acid reflux, No hemorrhoids, No ulcers, No gallbladder problem and No black,tarry stools Titi Hematologic: No blood thinners, No blood disorders, No bleeding, No anemia and No blood clots Neuro Neurologic: No system reviewed and no additional complaints, except as documented, No as per HPI, No abnormal gait, No abnormal hearing, No abnormal movements, No abnormal speech, No behavioral changes, No burning sensations, No confusion, No convulsions, No disequilibrium, No dizziness, No localized weakness, No frequent falls, No headache(s), No lack of coordination, No loss of vision, No memory loss, Yes numbness, No other visual disturbances, No radicular pain, No restless legs, No sensory deficit, No syncope, Yes tingling, No tremor(s), No weakness and No other Exam Const General: cooperative Orientation: alert and oriented x3 HENMT Head: normal to inspection Neck Neck: normal visual inspection and full ROM Chest Chest palpation & inspection: normal inspection of the chest Breast Palpation: Yes breast mass lrb: Left Resp Effort & Inspection: normal respiratory effort Auscultation: clear to auscultation bilaterally Cardio Rate: regular rate Rhythm: regular rhythm GI Inspection: non-distended Palpation: soft and nontender Skin General: no rashes or lesions noted Neuro General: patient alert and patient oriented x3 Extrem General: full ROM Psych Appearance: grossly normal Mental Status: mental status grossly normal Assessment and Plan Assessment and Plan (1) Breast lesion on mammography: Status: Acute Comment: left Plan: The patient has a breast lesion behind her left nipple. Her nipple is inverted. I believe it is too close to the skin for percutaneous biopsy and I recommended excisional biopsy. I discussed this with her in detail and I also discussed that if this came back as a cancer she would need further surgery for sentinel lymph node biopsy and clean margins. I also discussed the risks of bleeding and infection. Patient understands all the risks and is willing to proceed. Branden Lance MD Pager: [facility] [address] [place] [address], [address] [place] [phone] Office: I have examined the patient and the H&P has been reviewed. There are no clinical changes since date of exam.
[2025-01-28] MEDS: Clindamycin 900 MG/50 ML BAG 75 MG IV (08:33)
--- NOTE | 2025-01-28 08:35 | BRBX_PTH ---
PATIENT: MAGALY ARECHIGA LOC: [facility] U#:[id number] AGE/SX: 79/F ROOM: RE01/28/[address]: Dr. Branden Lance MD : 1945 BED: DIS: 01/28/2025 SPEC #: [id number] RECD: 01/28/25 12:32 STATUS: ANNA PLEITEZ #: [id number] RADHA: 01/28/25 08:[address]: Branden Lance DEPT: SURGICAL PATHOLOGY RECD BY: Bravo Kenyon ENTERED: 01/31/25 08:47 SP TYPE: BREAST BX ELVIRA DR: Kiana Chaudhary, ALCIDES-C Tissues: Left breast, NOS Procedures: Surgery Specimen Level IV HEADER OPERATION: Excision, ultrasound left breast mass PRE-OP DIAGNOSIS: Breast lesion on mammography TISSUE SUBMITTED: Left breast mass MICROSCOPIC DIAGNOSIS Left breast, mass, excisional biopsy: * Invasive breast carcinoma, NST (invasive ductal carcinoma), grade 2, at least 0.9 cm * Present at the edges of the tissue fragments * Grade 2 (score 6: T2, N2, M1) * ER: positive (100%, strong intensity) * WI: positive (95%, intermediate intensity) * Her2/IHC: 2+ (equivocal) * Her2/FISH: PENDING to be reported in an addendum * Ki67: approximately 20% MICROSCOPIC DESCRIPTION Slides are reviewed. Additional IHCs utilized in the assessment (all matched controls reacted appropriately): E-cadherin: membranous staining (positive ductal cells) These tests were developed and their performance characteristics determined by [facility]. They may not have been cleared or approved by the U.S. Food and Drug Administration. The FDA has determined that such clearance or approval is not necessary. The above immunohistochemical/dualISH markers are ordered and reviewed by the Pathologist. GROSS DESCRIPTION Received in formalin labeled with the patient's name Magaly Arechiga and designated left breast mass are three unoriented fragments of yellow-ngo lobular fibroadipose tissue that measure 3.2 x 2.0 x 1.5 cm, 1.5 x 1.1 x 1.0 cm, and 1.5 x 1.0 x 0.5 cm. The margin of all 3 fragments is inked black. Sectioning through the smallest fragment shows focally firm ngo fibrous tissue with no definitive masses or nodules seen. Sectioning through the intermediate-sized fragment shows submit amount of ngo fibrous tissue and unremarkable adipose tissue with no definitive mass is seen. Sectioning through the largest fragment shows a 0.9 x 0.8 x 0.6 cm ill-defined ngo firm fibrous possible breast mass that extends to within 0.1 cm or less of the black inked margin. At 1 end of this largest fragment there is also a pink-ngo 0.6 cm diameter well-defined nodule/possible lymph node. Remainder of the cut surface of this largest fragment is unremarkable. Specimen is entirely submitted as follows: Cassette summary:1-smaller fragment serially sectioned2-intermediate sized fragment serially sectioned3-perpendicular sections of one end of the largest [id number] sections of largest fragment submitted in the order sections (5-7 includes area of possible mass)9-perpendicular sections of the opposing end of the largest fragment including possible lymph node 01/31/2025 [id number] ADDENDUM ADDENDUM ADDENDUM ADDENDUM ADDENDUM ADDENDUM ADDENDUM ADDENDUM ADDENDUM ADDENDUM ADDENDUM ADDENDUM ADDENDUM ADDENDUM ADDENDUM ADDENDUM ADDENDUM ADDENDUM ADDENDUM 02/11/2025 09:01 ADDENDUM 02/11/2025 09:01 ADDENDUM 02/11/2025 09:01 ADDENDUM 02/11/2025 09:01 ADDENDUM 02/11/2025 09:01 This addendum is added to incorporate an outside pathology consultation report. The case was examined at [facility] by Dr. Laura (#[id number]) and the following diagnosis was rendered. Left breast, mass, excisional biopsy: HER2 SCORE - NEGATIVE INTERPRETATION: Tumor shows a Haer2 / CEP 17 ratio less than 2.0 and HER2 copy number less than 4.0 by FISH. Given the negative or 2+ HER2 IHC result, the HER2 status is negative (Group 5N). Internal and external controls show expected signal pattern. HER2 / CEP17 RATIO- 1.4 HER2 COPY NUMBER / CELL - 3.8 Please see complete above mentioned consultation report in EMR
[2025-01-28] MEDS: Bupivacaine 0.25% 30 ML Vial (08:54)
--- NOTE | 2025-01-28 08:58 | OP.PCM_ITS ---
Operative Report (Standard) Operative Information Date of Procedure: 01/28/25 Pre-Operative Diagnosis: Left breast mass Post-Operative Diagnosis: Left breast mass Surgery/Procedure Performed: Left breast excisional biopsy sculpture conservator: Yes Career Development Manager: Adriano David Tasks completed by executive marketing assistant: Opening and Closing Type of Anesthesia: General/Regional RN Documented Start/Stop Times: Operation Date: 01/28/25 08:35 Case Time Into Pre-Op 01/28/25 06:38 Anesthesia Start 01/28/25 08:27 Into Room 01/28/25 08:27 Procedure Start 01/28/25 08:44 Procedure Start Time: 08:44 Procedure Stop Time: 09:05 Select all DRAINS/GRAFTS/IMPLANTS that apply: None Estimated Blood Loss: 2 Specimen collected: Yes Description of specimen(s) removed: left breast mass Description of surgery: Patient was brought back to the operating room and general anesthesia was induced. The left breast was prepped and draped in usual sterile fashion. Ultrasound was used to localize the mass in the medial portion of the retroareolar area. This was palpable. Next an incision was made around the areola and the medial and inferior aspect. Electrocautery was used to maintain hemostasis. The mass was removed with electrocautery dissection and sent for pathology. The cavity was irrigated and suctioned dry. Hemostasis was obtained using electrocautery. Local anesthetic was injected. The incision was closed with interrupted 3-0 Vicryl sutures and a running 4-0 Monocryl suture. Dermabond glue was applied at the end the case. Patient tolerated the procedure well was brought to PACU in stable condition. Surgical Findings: left breast mass Complications Complications: No Admit VTE Documentation VTE Mechan Device Prophylaxis: SCD's
--- NOTE | 2025-01-28 09:01 | DCINST_ITS ---
Discharge Instructions Diet Discharge Diet: Light diet - advance as tolerated Activity Discharge Activity: May Not Drive (for 2-3 days or while taking narcotic pain medications.) and May Shower May shower in (days): 1 Lifting Restrictions: none Dressing / Incision Call your doctor if your incision/area has: Continuous Slow Oozing, Sudden Increased Bleeding, Increased Pain/ Swelling, Increased Redness, Foul Smelling Discharge and Swelling at the incision site Call your doctor if you observe: Fever of 101 or Higher Suture Line Care: Avoid Pulling/Pushing and Avoid Pinching/Bending Cleanse incision/area with: Soap & Water Additional Dressing/Incision Instructions:: Tylenol and Ibuprofen for pain, oxycodone for breakthrough pain Follow Up Care Please Follow Up With: Branden Lance MD When: Please call to schedule 2 week follow up appointment. [phone] Test Results: Test results from this visit will be discussed in further detail at your follow- up appointment, if applicable. Discharge Plan Admission Attending Provider: Branden Lance Primary Care Provider: Kiana Chaudhary Instructions Print Language: Ukrainian Discharge Orders/Prescriptions Prescriptions: New oxycodone 5 mg Tablet 5 - 10 mg PO Q4H PRN PRN (Reason: Pain Score 4-10) 5 Days Qty: 10 0RF No Action estradiol [Estrace] 0.01 % (0.1 mg/gram) cream 1 g VAGINAL MOFR meclizine 25 mg tablet 25 mg PO DAILY PRN (Reason: vertigo) Calcium 600 with Vitamin D3 600 mg-10 mcg (400 unit) tablet,chewable 1 tab PO DAILY nystatin 100,000 unit/gram ointment 1 applic topical DAILY PRN (Reason: SKIN) Mccoy Revive 2 cap PO DAILY cartilage revive 2 cap PO DAILY fenofibric acid (choline) 135 mg capsule,delayed release(DR/EC) 135 mg PO DAILY Patient Comments: Take 1 Capsule by mouth daily pantoprazole 40 mg tablet,delayed release (DR/EC) 40 mg PO DAILY Qty: 14 0RF d-mannose 500 mg capsule 500 mg PO BID boric acid 600 mg suppository 600 mg vaginal WE vitamin E 268 mg (400 unit) capsule 268 mg PO DAILY ascorbic acid (vitamin C) [C-500] 500 mg tablet 500 mg PO DAILY Referrals / Follow Up: Jet,Kiana, [employer] [Primary Care Provider] - Disposition Disposition (needs filled in before D/C Order can be placed): Home, Self Care
--- NOTE | 2025-01-28 09:52 | PCM.POST.ANE ---
Anesthesia: Postop Eval I Current Vital Signs Temperature: 97.5 F Pulse Rate: 84 Blood Pressure: 147/85 Respiratory Rate: 16 Pulse Ox: 100 Oxygen Delivery Method: Simple Mask Oxygen Flow Rate (L/min): 6 Assessment Airway patent: Yes Spontaneous unlabored respirations: Yes Mental status: Awake and Calm nausea: No Vomiting: No Anesthesia Complication: No Fluid Hydration Crystalloid volume administer (ml): 400 Total IV fluid infused: 400 Progress Note Anesthesia document: Postop Eval 1 completed: Yes
--- NOTE | 2025-01-28 16:19 | POSTOPAN2_ITS ---
Anesthesia Postop Eval I Sum Postop Eval Completion status Anesthesia document: Postop Eval 1 completed: Yes Anesthesia Postop Eval I Summary Anesthesia Postop Eval I Summary: Anesthesia Postop Eval I: Assessment Summary Airway patent Yes 01/28/25 09:57 ASSISTANT FAMILY TEACHER.PAMOBSilvestre Spontaneous unlabored Yes 01/28/25 09:57 ASSISTANT FAMILY TEACHER.GIO respirations Mental status Awake,Calm 01/28/25 09:57 ASSISTANT FAMILY TEACHER.GIO nausea No 01/28/25 09:57 ASSISTANT FAMILY TEACHER.GIO Vomiting No 01/28/25 09:57 ASSISTANT FAMILY TEACHER.GIO Anesthesia Postop Eval I: Fluid Summary Crystalloid volume administer 400 01/28/25 09:57 ASSISTANT FAMILY TEACHER.RAPHAELY (ml) Colloids volume administered ( ml) Blood Product volume administered (ml) Total IV fluid infused 400 01/28/25 09:57 ASSISTANT FAMILY TEACHER.GIO Anesthesia Postop Eval I: Summary Notes Anesthesia Complication No 01/28/25 09:57 ASSISTANT FAMILY TEACHER.GIO Anesthesia Complication Comment: Post-operative progress note Anesthesia: Postop Eval II Evaluation Mental status: Awake and Calm Pain Level: 1 nausea: No Vomiting: No Complications Anesthesia Complication: No
--- NOTE | 2025-01-28 16:19 | PCM.POSTANE2 ---
Anesthesia Postop Eval I Sum Postop Eval Completion status Anesthesia document: Postop Eval 1 completed: Yes Anesthesia Postop Eval I Summary Anesthesia Postop Eval I Summary: Anesthesia Postop Eval I: Assessment Summary Airway patent Yes 01/28/25 09:57 IMMIGRATION PATROL INSPECTOR.PAMOBSilvestre Spontaneous unlabored Yes 01/28/25 09:57 IMMIGRATION PATROL INSPECTOR.GIO respirations Mental status Awake,Calm 01/28/25 09:57 IMMIGRATION PATROL INSPECTOR.GIO nausea No 01/28/25 09:57 IMMIGRATION PATROL INSPECTOR.GIO Vomiting No 01/28/25 09:57 IMMIGRATION PATROL INSPECTOR.GIO Anesthesia Postop Eval I: Fluid Summary Crystalloid volume administer 400 01/28/25 09:57 IMMIGRATION PATROL INSPECTOR.RAPHAELY (ml) Colloids volume administered ( ml) Blood Product volume administered (ml) Total IV fluid infused 400 01/28/25 09:57 IMMIGRATION PATROL INSPECTOR.GIO Anesthesia Postop Eval I: Summary Notes Anesthesia Complication No 01/28/25 09:57 IMMIGRATION PATROL INSPECTOR.GIO Anesthesia Complication Comment: Post-operative progress note Anesthesia: Postop Eval II Evaluation Mental status: Awake and Calm Pain Level: 1 nausea: No Vomiting: No Complications Anesthesia Complication: No
== END 2025-01-28 11:01 | disposition home or self-care (01) ==
LOC: SDC 06:29 → AC 06:30
PROVIDERS: PCP Nurse Practitioner Family; Referring Provider Surgery; Visit Provider Surgery
PROC: (CPT 19120; principal; 2025-01-28 08:20)
DX: C50.012 Malignant neoplasm of nipple and areola, left female breast (principal); K21.9 Gastro-esophageal reflux disease without esophagitis; E78.5 Hyperlipidemia, unspecified; Z17.0 Estrogen receptor positive status [ER+]; Z17.21 Progesterone receptor positive status; Z79.899 Other long term (current) drug therapy
CPT/HCPCS: 19120; 88305; J2405

== ENCOUNTER 2025-02-22 05:43 | Day surgery (SDC) | payer MEDICARE, SELFPAY ==
--- NOTE | 2025-02-18 11:47 | EKG12_ITS ---
Test Reason : PRE OP Blood Pressure : */* mmHG Vent. Rate : 67 BPM Atrial Rate : 67 BPM P-R Int : 154 ms QRS Dur : 84 ms QT Int : 398 ms P-R-T Axes : 45 7 79 degrees QTcB Int : 420 ms Normal sinus rhythm Nonspecific T wave abnormality Abnormal ECG Confirmed by SUZAN GARZA, JUAN A ([id number]), editor dictionary BRENDA CAMACHO ([id number]) on 02/19/2025 7:11:17 AM Referred By: Branden Lance Confirmed By: JUAN A MARES MD
--- NOTE | 2025-02-21 10:28 | PAT.ANE_ITS ---
Pre-Assessment Diagnosis/Proposed Procedure Planned Operative Procedure(s): LEFT PARTIAL MASTECTOMY SLN BX BLUE DYE Anesthesia History Anesthesia History - credit assessment analyst: Anesthesia History - credit assessment analyst Hx Hospitalization No 02/15/25 11:03 Any Problems With Anesthesia No 02/15/25 11:03 Cholinesterase deficiency No 02/15/25 11:03 You/Your Family Experience No 02/15/25 11:03 fever (hyperthermia) with Relationship Recent Exposure to Contagious No 01/28/25 07:00 Disease Does patient have nerve No 02/15/25 11:03 stimulator Patient instructed to have device shut off --Does patient have Pacemaker or ICD? When Was Last Pacemaker Check QUESTION #4 FULL TEXT: You/Your Family Experience fever (hyperthermia) with Anesthesia Last Oral Intake Last Oral intake: Last Oral Intake NPO since Meds taken in AM with sips of water? Meds patient instructed to take am of surgery PONV PONV - credit assessment analyst: PONV - credit assessment analyst Female Yes 02/15/25 11:03 HX of Motion Sickness Yes 02/15/25 11:03 HX of N/V After Surgery No 02/15/25 11:03 Non-Smoker Yes 02/15/25 11:03 Duration of Surgery greater Yes 02/15/25 11:03 than 60 minutes Number of Risk Factors 4 02/15/25 11:03 PONV Score Severe Risk 02/15/25 11:03 Height & Weight Height & Weight: Anesthesia: Height & Weight Height 5 ft 1 in 01/28/25 07:00 Respiratory Assessment Respiratory Assessment - credit assessment analyst: Respiratory Tract Infection Hx - credit assessment analyst Hx Respiratory Tract Infection No 02/15/25 11:03 STOP Sleep Apnea STOP Sleep Apnea - credit assessment analyst: STOP Sleep Apnea - credit assessment analyst Hx Hypertension No 02/15/25 11:03 Hx Sleep Apnea No 02/15/25 11:03 CPAP BIPAP Do you snore loudly (louder No 02/15/25 11:03 than talking or can be heard Do you often feel tired/ No 02/15/25 11:03 fatigued/ sleepy during daytime? Has anyone observed you stop No 02/15/25 11:03 breathing during sleep? STOP Results Negative 02/15/25 11:03 QUESTION #5 FULL TEXT : Do you snore loudly (louder than talking or can be heard through closed doors)? Tobacco Use History Tobacco Use History - credit assessment analyst: Tobacco Use History - credit assessment analyst Tobacco Use Non-smoker 04/14/21 19:48 Smoking Status Never smoker 02/15/25 11:03 Hx Tobacco Use No 02/15/25 11:03 Years Smoking Packs Smoked per Day Smoking Cessation Date was within the last 15 years Hx Smoking Cessation Date Hx Smoking Cessation Counseling Hematologic Medial History Hematologic Hx - credit assessment analyst: Hematologic Medical Hx - documentation consultant Hx of Blood Transfusion No 02/15/25 11:03 Hx of Transfusion in last 3 No 02/15/25 11:03 Months Date of Last Transfusion (if within last 3 months) Ever experience any problems No 02/15/25 11:03 with transfusion(s)? Specify any problems Hx of Preganancy in last 3 No 02/15/25 11:03 Months Nurse Filling Out Transfusion DSCHRIBER 02/15/25 11:03 & Questions: Date: 02/15/25 02/15/25 11:03 Time: 11:04 02/15/25 11:03 Patient unable to answer at this time (ie. confused, unrespo /Reproduction History /Reproductive History - credit assessment analyst: /Reproductive Hx- credit assessment analyst Hx Now Gestational Age (in weeks): EDC: Hx Hx Para Hx Section SAB No 02/15/25 11:03 Active Medications Active Medications: Current Medications Generic Name Dose Route Start Last Admin Trade Name Freq PRN Reason Stop Dose Admin Clindamycin Phosphate 900 mg in 50 mls @ 75 mls/hr 02/22/25 07:45 Cleocin IV 02/22/25 08:24 PREOP [facility] Medical History (Updated 02/15/25 @ 11:08 by Jeaneth Peace) Cancer Wears glasses Post-menopausal Arthritis Low iron Fatty liver History of hiatal hernia Non-smoker History of pain when walking History of echocardiogram History of stress test Osteoporosis GERD (gastroesophageal reflux disease) Vertigo Hyperlipidemia Home Medications ?Medication ?Instructions ?Recorded ?Last Taken ?Type estradiol 0.01% (0.1 mg/gram) 1 g vaginal MOFR 8 01/24/25 History vaginal cream (Estrace) fenofibric acid (choline) 135 mg 135 mg PO DAILY 02/2801/27/25 History capsule,delayed release calcium 600 mg (as carbonate)-vit 1 tab PO DAILY 06/0501/27/25 History D3 10 mcg (400 unit) chewable tablet (Calcium 600 with Vitamin D3) meclizine 25 mg tablet 25 mg PO DAILY PRN vertigo 0 06/05/22 Unknown History pantoprazole 40 mg tablet,delayed 40 mg PO DAILY #14 t abs 03/09/23 01/28/25 Rx release nystatin 100,000 unit/gram topical 1 applic topical DA EFFIE PRN SKIN 04/20/24 01/27/25 History ointment Mccoy Revive 2 cap PO DAILY 10/18/2401/02 History cartilage revive 2 cap PO DAILY 10/18/2401/02 History ascorbic acid (vitamin C) 500 mg 500 mg PO DAILY 01/2001/27/25 History tablet (C-500) boric acid 600 mg vaginal 600 mg vaginal WE 01/20/25 0 01/27/25 History suppository d-mannose 500 mg capsule 500 mg PO BID 01/20/2501/27 History vitamin E 268 mg (400 unit) capsule 268 mg PO DAILY 01/27/25 History Allergy/AdvReac Type Severity Reaction Status Date / Time sulfamethoxazole (From Allergy Mild Other Verified 02/15/25 11:01 Bactrim) trimethoprim (From Bactrim) Allergy Mild Other Verified 02/15/25 11:01 chlorhexidine (From Allergy Rash Verified 02/15/25 11:01 ChloraPrep Clear) isopropyl alcohol (From Allergy Rash Verified 02/15/25 11:01 ChloraPrep Clear) potassium clavulanate (From Allergy Rash Verified 02/15/25 11:01 Augmentin) amoxicillin trihydrate (From AdvReac Rash Verified 02/15/25 11:01 Augmentin) Family History Father Heart disease CVA (cerebral vascular accident) Surgical History (Updated 02/15/25 @ 11:08 by Jeaneth Peace) History of breast lump/mass excision History of surgery on wrist History of surgery on wrist History of esophagogastroduodenoscopy (EGD) Hx of colonoscopy H/O tubal ligation Social History Smoking Status: Never smoker alcohol intake: current details: social substance use type: does not use caffeine: Yes frequency: 1-2 times per week seatbelt use: always do you feel safe at home: Yes additional social history: (Matias) Audit: Pertinent Findings Pertinent Findings EKG Perinent findings: February 18, 2025. Normal sinus rhythm. Nonspecific T wave abnormality. Stress test pertinent findings: April 24, 2016. Ejection fraction 39%. No evidence of ischemia. Recommendation Anesthesia Recommendation Anesthesia recommendation: OPTIMIZED for anesthesia
[2025-02-22] VITALS (13 sets, daily range): BP systolic 150–185; BP diastolic 76–94; PULSE 71–81; RESP 12–16; TEMP 36.1–36.6; O2SAT 94–100; BMI 33.3
[2025-02-22] MEDS: 0.9% Normal Saline (1000mL) 1,000 ML 15 ML IV ×2 (06:33→10:16)
--- NOTE | 2025-02-22 06:44 | PCM.HP.BLA ---
History and Physical Date of Admission: 02/22/25 Intake Vital Signs 01/28/2507:00 02/12/2512:56 Height 5 ft 1 in BP 160/96 H Blood Pressure Location Rt brachial Position Sitting Respiration 17 Pulse 76 Pulse Source Monitor Pulse Oximetry (%) 97 Oxygen Delivery Method room air Intake Visit Reasons: BREAST BIOPSY DOS 01/28 Chief Complaint: breast biopsy dos 01/28 Allergies sulfamethoxazole (From Bactrim) Allergy (Mild, Verified 02/11/25 12:57) Othertrimethoprim (From Bactrim) Allergy (Mild, Verified 02/11/25 12:57) Otherchlorhexidine (From ChloraPrep Clear) Allergy (Verified 02/11/25 12:57) Rashisopropyl alcohol (From ChloraPrep Clear) Allergy (Verified 02/11/25 12:57) Rashpotassium clavulanate (From Augmentin) Allergy (Verified 02/11/25 12:57) Rashamoxicillin trihydrate (From Augmentin) Adverse Reaction (Verified 02/11/25 12:57) Rash Medications ?Medication ?Instructions ?Recorded ?Confirmed ?Type estradiol 0.01% (0.1 mg/gram) 1 g vaginal MOFR 12/17/17 02/11/25 History vaginal cream (Estrace) fenofibric acid (choline) 135 mg 135 mg PO DAILY 02/28/22 02/11/25 History capsule,delayed release calcium 600 mg (as carbonate)-vit 1 tab PO DAILY 06/05/22 02/11/25 History D3 10 mcg (400 unit) chewable tablet (Calcium 600 with Vitamin D3) meclizine 25 mg tablet 25 mg PO DAILY PRN vertigo 06/05/22 02/11/25 History pantoprazole 40 mg tablet,delayed 40 mg PO DAILY #14 tabs 03/09/23 02/11/25 Rx release nystatin 100,000 unit/gram topical 1 applic topical DAILY PRN SKIN 04/20/24 02/11/25 History ointment Mccoy Revive 2 cap PO DAILY 10/18/24 02/11/25 History cartilage revive 2 cap PO DAILY 10/18/24 02/11/25 History ascorbic acid (vitamin C) 500 mg 500 mg PO DAILY 01/20/25 02/11/25 History tablet (C-500) boric acid 600 mg vaginal 600 mg vaginal WE 01/20/25 02/11/25 History suppository d-mannose 500 mg capsule 500 mg PO BID 01/20/25 02/11/25 History vitamin E 268 mg (400 unit) capsule 268 mg PO DAILY 01/20/25 02/11/25 History Have you fallen in the past year?: No PFSH Medical History (Updated 02/11/25 @ 13:[address] Branden Lance MD) Wears glasses Post-menopausal Arthritis Low iron Fatty liver History of hiatal hernia Non-smoker History of pain when walking History of echocardiogram History of stress test Osteoporosis GERD (gastroesophageal reflux disease) Vertigo Hyperlipidemia Surgical History (Updated 02/11/25 @ 12:56 by Belem Thorpe) History of breast lump/mass excision History of surgery on wrist History of surgery on wrist History of esophagogastroduodenoscopy (EGD) Hx of colonoscopy H/O tubal ligation Family History Father Heart disease CVA (cerebral vascular accident) Social History Smoking Status: Never smoker alcohol intake: current details: social substance use type: does not use caffeine: Yes frequency: 1-2 times per week seatbelt use: always do you feel safe at home: Yes additional social history: (Matias) HPI HPI HPI: Patient is a 79-year-old female with left breast cancer the patient had a mass behind her left nipple that was excised for excisional biopsy and 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 The pathology revealed that it was invasive ductal carcinoma which was ER/NV positive and extending to the margins. She is here to discuss completion surgery ROS General General: Yes breast cancer; No weight change, appetite, fatigue, colon cancer or weakness HEENT HEENT: No difficulty swallowing, eye injury, eye surgery, swollen glands or hoarseness Endo Endocrine: No thyroid disease, diabetes mellitus, thyroid cancer, Hair loss, heat intolerance or cold intolerance Skin Skin: No rash or changing moles Breast Breast: No left breast lump, right breast lump, nipple discharge, breast pain, abnormal mammogram, abnormal US or breast enlargement Musc Musculoskeletal: Yes back problems and arthritis; No rheumatoid arthritis, gout or joint pain Cardio Cardiovascular: No murmur, pacemaker, heart disease, atrial fibrillation, high blood pressure, heart attack, heart stent, palpitations, shortness of breath with exertion or chest pain Psych Psychiatric: No depression, anxiety or hearing voices Resp Respiratory: No shortness of breath, No sleep apnea, No cough, No COPD, No asthma, No emphysema and No wheezing Gastro Gastrointestinal: No abdominal pain, Yes nausea or vomiting, No diarrhea, No constipation, No blood in stool, Yes acid reflux, No hemorrhoids, No ulcers, No gallbladder problem and No black,tarry stools [place] Hematologic: No blood thinners, No blood disorders, No bleeding, No anemia and No blood clots Neuro Neurologic: No system reviewed and no additional complaints, except as documented, No as per HPI, No abnormal gait, No abnormal hearing, No abnormal movements, No abnormal speech, No behavioral changes, No burning sensations, No confusion, No convulsions, No disequilibrium, No dizziness, No localized weakness, No frequent falls, No headache(s), No lack of coordination, No loss of vision, No memory loss, Yes numbness, No other visual disturbances, No radicular pain, No restless legs, No sensory deficit, No syncope, Yes tingling, No tremor(s), No weakness and No other Exam Const General: cooperative Orientation: alert and oriented x3 [facility] Head: normal to inspection Neck Neck: normal visual inspection and full ROM Chest Chest palpation & inspection: normal inspection of the chest Resp Effort & Inspection: normal respiratory effort Auscultation: clear to auscultation bilaterally Cardio Rate: regular rate Rhythm: regular rhythm GI Inspection: non-distended Palpation: soft and nontender Skin General: no rashes or lesions noted Neuro General: patient alert and patient oriented x3 Extrem General: full ROM Psych Appearance: grossly normal Mental Status: mental status grossly normal Assessment and Plan Assessment and Plan (1) Breast cancer, left breast: Status: Acute Qualifiers: Breast location: central portion of breast Estrogen receptor status: positive Patient sex: female Qualified Code(s): C50.112 - 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; Z17.0 - Estrogen receptor positive status [ER+] Plan: Patient has left breast cancer behind the left nipple. The mass was excised during excisional biopsy but was found to be cancer. I discussed completion surgery with her. I would like to perform a partial mastectomy of the left breast where I will remove the nipple areolar complex and margins behind the nipple. The patient would like partial mastectomy instead of full mastectomy. I discussed radiation treatment. I also discussed performing sentinel lymph node biopsy on the left. I discussed the risks and benefits of this as well. Patient understands all the risks and is willing to proceed. Branden Lance MD Pager: [facility] [address] [place] [address], [address] [place] [phone] Office: I have examined the patient and the H&P has been reviewed. There are no clinical changes since date of exam.
--- NOTE | 2025-02-22 07:02 | NM_ITS ---
EXAM: Left breast lymphoscintigraphy. CLINICAL HISTORY: Left-sided breast cancer. COMPARISON: None available. TECHNIQUE: Patient was injected subdermally in a periareolar location at 12 o'clock with 595 uCi of Lymphoseek. The area was massaged. No imaging was performed. The patient was sent directly to the operating room for portable Neoprobe gamma counter detection of a sentinel lymph node. FINDINGS: As above. NM/Lymph Node Injection Only IMPRESSION: As above. Reading Location: [place] [address]
--- NOTE | 2025-02-22 07:03 | PRE.ANES_ITS ---
ASA Classification* ASA Classification ASA Classification: 2 Assessment & Plan Anesthesia* Anesthesia Assessment Anesthesia Assessment: Discussed sedation and/or anesthesia options, risks, benefits, and alternatives with patient/parents/legal guardian/POA. Questions invited. The patient/parents/legal guardian/POA seems to understand and agrees to proceed with anesthesia plan. Reviewed the physical assessment, medical history, allergy history and patient home medications list prior to surgery/procedure/anesthetic and documented any changes. Performed airway and anesthesia risk assessments. Anesthesia Type Anesthesia Type: General History Source History Obtained from:: Patient and Chart Anesthesia Focused Assessment* Temperature: 97.9 F Pulse Rate: 74 Blood Pressure: 150/94 Respiratory Rate: 16 Pulse Ox: 100 Oxygen Delivery Method: Room Air Airway Assessment Mouth opens: >3 cm Mallampati Score: IV Teeth Condition: Caps/Crowns (Patient has a crown left lower molar. It is tight.) Neck Range of motion (ROM): Limited ROM Comment: Decreased thyromental distance Focused Labs Anesthesia Preop lab: CBC WBC 4.5 K/mm3 (4.4-11.0) 10/10/23 07:29 10/10/23 RBC 4.58 M/mm3 (4.2-5.4) 10/10/23 07:29 10/10/23 Hgb 12.6 g/dL (12.0-15.0) 10/10/23 07:29 10/10/23 Hct 40.0 % (37-47) 10/10/23 07:29 10/10/23 Plt Count 376 K/mm3 (150-450) 10/10/23 07:29 10/10/23 CHEMISTRY Potassium 4.3 mmol/L (3.5-5.1) 06/29/24 07:33 06/29/24 Sodium 141 mmol/L (136-145) 06/29/24 07:33 06/29/24 Magnesium 2.2 mg/dL (1.6-2.6) 05/16/22 01:22 05/16/22 Phosphorus 3.2 mg/dL (2.5-4.9) 07/16/23 09:24 07/16/23 BUN 18 mg/dL (7-18) 06/29/24 07:33 06/29/24 Creatinine 1.35 mg/dL (0.55-1.02) H 06/29/24 07:33 Glucose 89 mg/dL (74-106) 06/29/24 07:06/29/24 TSH 3.87 uIU/mL (0.358-3.74) H 06/29/24 07: 07/ COAG PT 13.5 SECONDS (11.7-14.9) 04/23/16 21:05 Pre-Assessment Diagnosis/Proposed Procedure Planned Operative Procedure(s): LEFT PARTIAL MASTECTOMY SLN BX BLUE DYE Anesthesia History Anesthesia History - mottler machine feeder: Anesthesia History - mottler machine feeder Hx Hospitalization No 02/15/25 11:03 Any Problems With Anesthesia No 02/15/25 11:03 Cholinesterase deficiency No 02/15/25 11:03 You/Your Family Experience No 02/15/25 11:03 fever (hyperthermia) with Relationship Recent Exposure to Contagious No 02/22/25 06:27 Disease Does patient have nerve No 02/15/25 11:03 stimulator Patient instructed to have device shut off --Does patient have Pacemaker No 02/22/25 06:27 or ICD? When Was Last Pacemaker Check QUESTION #4 FULL TEXT: You/Your Family Experience fever (hyperthermia) with Anesthesia Last Oral Intake Last Oral intake: Last Oral Intake NPO since 03:00 02/22/25 06:27 Meds taken in AM with sips of Yes 02/22/25 06:27 water? Meds patient instructed to MECLIZINE 0130 02/22/25 06:27 take am of surgery Any additional information?: Yes NPO since: 03:30 (Patient had apple juice at 3:30 AM) PONV PONV - mottler machine feeder: PONV - mottler machine feeder Female Yes 02/15/25 11:03 HX of Motion Sickness Yes 02/15/25 11:03 HX of N/V After Surgery No 02/15/25 11:03 Non-Smoker Yes 02/15/25 11:03 Duration of Surgery greater Yes 02/15/25 11:03 than 60 minutes Number of Risk Factors 4 02/15/25 11:03 PONV Score Severe Risk 02/15/25 11:03 Height & Weight Height & Weight: Anesthesia: Height & Weight Height 5 ft 1 in 02/22/25 06:27 Weight: 80 kg 02/22/25 06:27 Body Mass Index (BMI) 33.3 02/22/25 06:27 Respiratory Assessment Respiratory Assessment - mottler machine feeder: Respiratory Tract Infection Hx - mottler machine feeder Hx Respiratory Tract Infection No 02/15/25 11:03 STOP Sleep Apnea STOP Sleep Apnea - mottler machine feeder: STOP Sleep Apnea - mottler machine feeder Hx Hypertension No 02/15/25 11:03 Hx Sleep Apnea No 02/15/25 11:03 CPAP BIPAP Do you snore loudly (louder No 02/15/25 11:03 than talking or can be heard Do you often feel tired/ No 02/15/25 11:03 fatigued/ sleepy during daytime? Has anyone observed you stop No 02/15/25 11:03 breathing during sleep? STOP Results Negative 02/15/25 11:03 QUESTION #5 FULL TEXT : Do you snore loudly (louder than talking or can be heard through closed doors)? Tobacco Use History Tobacco Use History - mottler machine feeder: Tobacco Use History - mottler machine feeder Tobacco Use Non-smoker 04/14/21 19:48 Smoking Status Never smoker 02/15/25 11:03 Hx Tobacco Use No 02/15/25 11:03 Years Smoking Packs Smoked per Day Smoking Cessation Date was within the last 15 years Hx Smoking Cessation Date Hx Smoking Cessation Counseling Hematologic Medial History Hematologic Hx - mottler machine feeder: Hematologic Medical Hx - documentation consultant Hx of Blood Transfusion No 02/15/25 11:03 Hx of Transfusion in last 3 No 02/15/25 11:03 Months Date of Last Transfusion (if within last 3 months) Ever experience any problems No 02/15/25 11:03 with transfusion(s)? Specify any problems Hx of Preganancy in last 3 No 02/15/25 11:03 Months Nurse Filling Out Transfusion DSCHRIBER 02/15/25 11:03 & Questions: Date: 02/15/25 02/15/25 11:03 Time: 11:04 02/15/25 11:03 Patient unable to answer at this time (ie. confused, unrespo /Reproduction History /Reproductive History - mottler machine feeder: /Reproductive Hx- mottler machine feeder Hx Now Gestational Age (in weeks): EDC: Hx Hx Para Hx Section SAB No 02/15/25 11:03 Active Medications Active Medications: Current Medications Generic Name Dose Route Start Last Admin Trade Name Rosalba PRN Reason Stop Dose Admin Clindamycin Phosphate 900 mg in 50 mls @ 75 mls/hr 02/22/25 07:45 Cleocin IV 02/22/25 08:24 PREOP ONE Sodium Chloride 1,000 mls @ 15 mls/hr 02/22/25 06:00 02/22/25 06:33 IV 02/27/25 19:19 15 mls/hr .Q48H ASHISH Administration PFSH Medical History Cancer Wears glasses Post-menopausal Arthritis Low iron Fatty liver History of hiatal hernia Non-smoker History of pain when walking History of echocardiogram History of stress test Osteoporosis GERD (gastroesophageal reflux disease) Vertigo Hyperlipidemia Home Medications ?Medication ?Instructions ?Recorded ?Last Taken ?Type estradiol 0.01% (0.1 mg/gram) 1 g vaginal MOFR 8 02/21/25 History vaginal cream (Estrace) fenofibric acid (choline) 135 mg 135 mg PO DAILY 02/2802/21/25 History capsule,delayed release calcium 600 mg (as carbonate)-vit 1 tab PO DAILY 06/0502/21/25 History D3 10 mcg (400 unit) chewable tablet (Calcium 600 with Vitamin D3) meclizine 25 mg tablet 25 mg PO DAILY PRN vertigo 0 06/05/22 02/22/25 01:30 History pantoprazole 40 mg tablet,delayed 40 mg PO DAILY #14 t abs 03/09/23 02/21/25 Rx release nystatin 100,000 unit/gram topical 1 applic topical DA EFFIE PRN SKIN 04/20/24 01/27/25 History ointment Mccoy Revive 2 cap PO DAILY 10/18/2401/30 History cartilage revive 2 cap PO DAILY 10/18/2401/30 History ascorbic acid (vitamin C) 500 mg 500 mg PO DAILY 01/2002/21/25 History tablet (C-500) boric acid 600 mg vaginal 600 mg vaginal WE 01/20/25 0 02/16/25 History suppository d-mannose 500 mg capsule 500 mg PO BID 01/20/2502/21 History vitamin E 268 mg (400 unit) capsule 268 mg PO DAILY 02/21/25 History Allergy/AdvReac Type Severity Reaction Status Date / Time sulfamethoxazole (From Allergy Mild Other Verified 02/22/25 06:24 Bactrim) trimethoprim (From Bactrim) Allergy Mild Other Verified 02/22/25 06:24 chlorhexidine (From Allergy Rash Verified 02/22/25 06:24 ChloraPrep Clear) potassium clavulanate (From Allergy Rash Verified 02/15/25 11:01 Augmentin) amoxicillin trihydrate (From AdvReac Rash Verified 02/15/25 11:01 Augmentin) Family History Father Heart disease CVA (cerebral vascular accident) Surgical History History of breast lump/mass excision History of surgery on wrist History of surgery on wrist History of esophagogastroduodenoscopy (EGD) Hx of colonoscopy H/O tubal ligation Social History Smoking Status: Never smoker alcohol intake: current details: social substance use type: does not use caffeine: Yes frequency: 1-2 times per week seatbelt use: always do you feel safe at home: Yes additional social history: (Matias) Review of Systems (Anesthesia) ROS Narrative System reviewed and no additional complaints, except as documented.
--- NOTE | 2025-02-22 07:45 | LYMN_PTH ---
PATIENT: MAGALY ARECHIGA LOC: [facility] [place] U#:[id number] AGE/SX: 79/F ROOM: RE02/22/[address]: Dr. Branden Lance MD : 1945 BED: DIS: 02/22/2025 SPEC #: [id number] RECD: 02/22/25 10:11 STATUS: ANNA RELeighann #: [id number] RADHA: 02/22/25 07:[address]: Branden Lance DEPT: SURGICAL PATHOLOGY RECD BY: Afshin Larios ENTERED: 02/22/25 10:12 SP TYPE: LYMPH NODE OTHR DR: Kiana Chaudhary, GUITAR REPAIR TECHNICIAN-C Tissues: A - LYMPH NODE BIOPSY B - Axillary lymph node, NOS C - Left breast, NOS Procedures: Immunohistochemical Stains Surgery Specimen Level IV Surgery Specimen Level IHC Stain ADDITIONAL HEADER OPERATION: Breast, left partial mastectomy, left sentinel lymph node biopsy, blue dye PRE-OP DIAGNOSIS: Breast cancer left breast TISSUE SUBMITTED: A- Left sentinel lymph node, B-Left axilla lymph node FROZEN SECTION DIAGNOSIS A. Left sentinel node axilla, biopsy: Negative for metastasis. B. Left axilla lymph node, biopsy: Positive for metastasis. 02/22/2025 MICROSCOPIC DIAGNOSIS A. LEFT AXILLA, SENTINEL LYMPH NODE, BIOPSY: - NEGATIVE FOR METASTASIS - see note. Note: IHC for pancytokeratin supports the diagnosis. B. LEFT AXILLA, LYMPH NODE, BIOPSY: - NEGATIVE FOR MACRO-METASTASIS (0/2) - see note. Note: A small focus of atypical cells was observed on the frozen section and interpreted as positive for metastasis at the time of frozen section. This finding is NOT confirmed on the permanent section. IHC for pancytokeratin was utilized in the assessment of the permanent section. The atypical cells seen at frozen section could represent a tiny focus of metastatic tumor that does not persist deeper into the block; alternatively, those cells might actually represent reactive endothelial cells which are identified on the permanent section. I favor the latter, but the findings are not conclusive, and a micro-metastasis cannot be completely excluded. C. LEFT BREAST, LEFT PARTIAL MASTECTOMY: * INVASIVE DUCTAL ADENOCARCINOMA, NST, GRADE 1, MARGINS FREE * TUBULE 1, NUCLEAR 2, MITOSIS 1. COMMENT SYNOPTIC REPORT FOR INVASIVE BREAST CARCINOMA Specimen (P=partial, M=mastectomy): P Laterality (R=right, L=left): L Focality (U=unifocal, M=multifocal): U Tumor size (cm): biopsy cavity is 3.3 x 1.3 x 1.2 cm. Residual tumor focally extends 0.4 cm beyond the edge of the biopsy cavity (C11). Histologic type: invasive ductal carcinoma Histologic grade: 1 ??? Tubule score (1-3): 1 ??? Nuclear score (1-3): 2 ??? Mitotic score (1-3): 1 Skin, nipple epidermis (I=involved, N=negative, NA=not applicable): I (deep dermis) Lymphovascular invasion (E=extensive, F=focal, N=not identified): N Margins of main specimen (P=positive, N=negative): N Distance to closest margin of main specimen (mm): The biopsy cavity is focally 0.2 cm from the medial margin, the posterior margin, and the inferior margin, with no residual tumor seen in those sections (C1 through C5). The remaining margins are 1.0 cm or greater from the biopsy cavity. Designation of closest margin of main specimen: medial, posterior, inferior Designation of other margins of main specimen </=1 mm: NA Re-resection margin status (P=positive, N=negative, NA=not applicable): NA DCIS (P=present, N=not identified): N ?? Nuclear grade: NA ?? Comedo necrosis (P=present, N=not identified): NA ?? Extensive intraductal component (P=present, N=not identified): NA ?? Margins of main specimen (P=positive, N=negative): NA ?? Distance to closest margin of main specimen (mm): NA ?? Designation of closest margin of main specimen: NA ?? Designation of other margins of main specimen </=2 mm: NA ?? Longest span </= 2 mm to margin of main specimen (mm): NA ?? Re-resection margin status (P=positive, N=negative, NA=not applicable): NA Regional lymph nodes: ?? Total number of lymph nodes: 3 ?? Number of sentinel lymph nodes: 3 ?? Number with macrometastases: 0 ?? Number with micrometastases: uncertain see diagnosis for part B ?? Number with isolated tumor cells: 0 ?? Size of largest azael metastasis (mm): NA ?? Size of extranodal extension (mm) (N=not identified): NA Estrogen receptor: positive (90%, strong intensity) Progesterone receptor: positive (50%, intermediate intensity) HER2 IHC: equivocal (2+) HER2 FISH: PENDING (to be reported in an addendum) Specimen in which ER/WI/HER2 performed: [id number] C pTNM: pT2 pN0 (see note in diagnosis for part B) Additional findings: Extensive fat necrosis with multifocal foreign body giant cell reaction. 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 Comment: The above synoptic report complies, in slightly modified form, with the guidelines of the [employer] and the Association of Directors of Anatomic and Surgical Pathology for the reporting of cancer specimens MICROSCOPIC DESCRIPTION Slides are reviewed. These tests were developed and their performance characteristics determined by [facility]. They may not have been cleared or approved by the U.S. Food and Drug Administration. The FDA has determined that such clearance or approval is not necessary. The above immunohistochemical/dualISH markers are ordered and reviewed by the Pathologist. GROSS DESCRIPTION Specimen A-received fresh labeled, Magaly Arechiga, and designated left sentinel node axilla, are two irregularly-shaped portions of yellow-ngo, lobular, fibroadipose, tissue that measure 1.5 x 1.4 x 0.8 cm and 0.7 x 0.3 x 0.2 cm. Sectioning shows a single possible lymph node that measures 0.4 x 0.3 x 0.2 cm. The lymph node is submitted intact for frozen section and in one cassette.Specimen B-received fresh labeled, Magaly Arechiga, and designated left axilla lymph node, are two irregularly-shaped portions of yellow-ngo, lobular, fibroadipose, tissue that measure 1.0 x 0.7 x 0.7 cm and 1.0 x 0.5 x 0.3 cm. Sectioning shows two possible lymph nodes that measure 1.1 and 0.5 cm in greatest dimension. The two lymph nodes are submitted intact for frozen section and in one cassette. Specimen C-received in formalin labeled, Magaly Arechiga, and designated left breast tissue short tag superior long lateral, is an oriented ovoid portion of yellow-ngo, lobular, fibroadipose tissue that weighs 43 g and measures 6.1 cm from medial to lateral by 5.2 cm from superior to inferior by 3.3 cm from anterior to posterior. Specimen is surfaced by skin that measures 4.6 cm from medial to lateral by 4.2 cm from superior to inferior. Skin is oriented by two surgical sutures designated as one short and superior edge of skin and one long on the lateral tip of skin. Central on the skin is a 1.2 cm diameter nipple. The margins of the breast are inked as follows: anterior- green, posterior- black, superior - red, inferior- blue, lateral- orange, and medial- yellow. The breast to serially sectioned from medial to lateral into 13 levels to show an area of a previous biopsy cavity involving levels 1 through level 7. The cavity measures 3.3 x 1.3 x 1.2 cm and has a yellow to red-brown fibrous lining. The tissue surrounding the cavity shows extensive yellow chalky apparent fat necrosis however no suspicious masses are seen. The edge of the cavity is within 0.2 cm of the medial margin of level 1, the posterior margin of level 2, and the inferior margin of level 3. The anterior margin is 1.0 cm from the edge of the cavity and the remaining margins are greater than 1.0 cm. The remainder of the breast tissue consists of a minimal amount of ngo breast tissue and otherwise unremarkable adipose tissue. Feather Duster Winder sections are submitted as follows:Cassette Summary: (Sectioning map included)C1-two perpendicular medial margin sections of level 8W4-M1-avy of level 2 ogvucznhU5-Z9-ijk of level 3 uncerrheZ8-I2-alsrgcuo half of level 4 including qfdwxrM7-H2-xfnhauqd half of level 5 including lcydqdT83-B82-klp of level 6 milgzhnttQ13-cjvqgmyby section of cavity of level 7 including section of objobgN10-ggncsut of level 8 including xwaotyB94-pnjhya tissue and skin of level 8G27-kib of level 13, shave lateral end of the specimen CHRISTIANO 02/22/2025PT:[id number] ADDENDUM ADDENDUM ADDENDUM ADDENDUM ADDENDUM ADDENDUM ADDENDUM ADDENDUM ADDENDUM ADDENDUM ADDENDUM ADDENDUM ADDENDUM ADDENDUM ADDENDUM ADDENDUM ADDENDUM ADDENDUM 03/16/2025 09:12 ADDENDUM 03/16/2025 09:12 ADDENDUM 03/16/2025 09:12 ADDENDUM 03/16/2025 09:12 ADDENDUM 03/16/2025 09:12 This addendum is added to incorporate an outside pathology consultation report. The case was examined at [facility] by Dr. Franco (#[id number]) and the following diagnosis was rendered. C. Left breast, left partial mastectomy: HER2 FISH: NEGATIVE HER2 SCORE REPORT (BLOCK C11) HER2 SCORE: NEGATIVE HER2/CEP17 RATIO: 1.2 HER2 COPY NUMBER/CELL: 2.7 Please see complete above mentioned consultation report in EMR
[2025-02-22] MEDS: Clindamycin 900 MG/50 ML BAG 75 MG IV (08:06)
[2025-02-22] MEDS: 0.9% Normal Saline (Pres. free 10 ML Vial (08:11)
[2025-02-22] MEDS: Isosulfan Blue 1% 5 ML Vial (08:11)
[2025-02-22] MEDS: Bupivacaine 0.25% 30 ML Vial (08:24)
--- NOTE | 2025-02-22 09:31 | OP.PCM_ITS ---
Operative Report (Standard) Operative Information Date of Procedure: 02/22/25 Pre-Operative Diagnosis: Left breast cancer of the central region Post-Operative Diagnosis: Same Surgery/Procedure Performed: 1. Left partial mastectomy 2. Left sentinel lymph node biopsy 3. Injection of blue dye city council member: Yes Railroad Dining Car Stewardess: Sera Simental Tasks completed by preschool assistant principal: Opening, Closing and Retracting Type of Anesthesia: General/Regional RN Documented Start/Stop Times: Operation Date: 02/22/25 07:45 Case Time Into Pre-Op 02/22/25 05:58 Out of Pre-Op 02/22/25 07:57 Anesthesia Start 02/22/25 08:00 Into Room 02/22/25 08:00 Procedure Start 02/22/25 08:24 Procedure Start Time: 08:24 Procedure Stop Time: 09:40 Select all DRAINS/GRAFTS/IMPLANTS that apply: None Estimated Blood Loss: 20 Specimen collected: Yes Description of specimen(s) removed: 1. Left partial maxillectomy 2. Left sentinel lymph nodes Description of surgery: Patient was brought back to the operating room and general anesthesia was induced. The breast was prepped and isosulfan blue was injected in the retroareolar space on the left. Next 5 cc of saline were injected as a chaser and the breast was massaged. Next the breast and axilla were prepped and draped in usual sterile fashion. Maxillary incision was marked and injected with local anesthetic. Incision was made with a scalpel and deepened to the subcutaneous fascia. The fascia was incised. Using probe for radioactivity and checking for blue dye I was able to identify a few sentinel lymph nodes. They were all removed using blunt dissection and clip and ligated. The area was irrigated and suctioned dry. Pathology did reveal one of the lymph nodes was positive. Next attention was paid to the breast. An elliptical incision was made around the nipple and flaps were raised. The retroareolar region was removed along with the nipple using electrocautery dissection. It was marked and sent for pathology. The cavity was irrigated and suctioned dry and hemostasis was obtained using electrocautery. The incisions were then closed with interrupted 3-0 Vicryl sutures and running 4-0 Monocryl sutures. Dermabond was applied to both incisions. Padding and a Surgi-Bra were applied. Patient was taken to PACU in stable condition. Synoptic Portion: Element Response Options Operation performed with curative intent. Yes Tracer(s) used to identify sentinel nodes in the upfront surgery (non- neoadjuvant) setting (select all that apply). Dye and radioactive tracer Tracer(s) used to identify sentinel nodes in the neoadjuvant setting (select all that apply). N/A All nodes (colored or non-colored) present at the end of a dye-filled lymphatic channel were removed. Yes All significantly radioactive nodes were removed. Yes All palpably suspicious nodes were removed. Yes Biopsy-proven positive nodes marked with clips prior to chemotherapy were identified and removed. N/A Surgical Findings: none Complications Complications: No Admit VTE Documentation VTE Mechan Device Prophylaxis: SCD's
--- NOTE | 2025-02-22 09:37 | DCINST_ITS ---
Discharge Instructions Diet Discharge Diet: Light diet - advance as tolerated Activity Discharge Activity: May Not Drive (for 2-3 days or while taking narcotic pain medications.) and May Shower Lifting Restrictions: 10 lbs for 1 week Additional Activity Instructions:: Alternate ibuprofen and Tylenol for pain control, oxycodone for breakthrough pain Dressing / Incision Call your doctor if your incision/area has: Continuous Slow Oozing, Sudden Increased Bleeding, Increased Pain/ Swelling, Increased Redness, Foul Smelling Discharge and Swelling at the incision site Call your doctor if you observe: Fever of 101 or Higher Suture Line Care: Avoid Pulling/Pushing and Avoid Pinching/Bending Cleanse incision/area with: Soap & Water Additional Dressing/Incision Instructions:: Remove bulky dressing tomorrow Follow Up Care Please Follow Up With: Branden Lance MD When: Please call to schedule 2 week follow up appointment. [phone] Test Results: Test results from this visit will be discussed in further detail at your follow- up appointment, if applicable. Discharge Plan Admission Attending Provider: Branden Lance Primary Care Provider: Kiana Chaudhary Instructions Print Language: Armenian Discharge Orders/Prescriptions Prescriptions: New oxycodone 5 mg Tablet 5 - 10 mg PO Q4H PRN PRN (Reason: Pain Score 4-10) 5 Days Qty: 20 0RF No Action estradiol [Estrace] 0.01 % (0.1 mg/gram) cream 1 g VAGINAL MOFR meclizine 25 mg tablet 25 mg PO DAILY PRN (Reason: vertigo) Calcium 600 with Vitamin D3 600 mg-10 mcg (400 unit) tablet,chewable 1 tab PO DAILY nystatin 100,000 unit/gram ointment 1 applic topical DAILY PRN (Reason: SKIN) Mccoy Revive 2 cap PO DAILY cartilage revive 2 cap PO DAILY fenofibric acid (choline) 135 mg capsule,delayed release(DR/EC) 135 mg PO DAILY Patient Comments: Take 1 Capsule by mouth daily pantoprazole 40 mg tablet,delayed release (DR/EC) 40 mg PO DAILY Qty: 14 0RF d-mannose 500 mg capsule 500 mg PO BID boric acid 600 mg suppository 600 mg vaginal WE vitamin E 268 mg (400 unit) capsule 268 mg PO DAILY ascorbic acid (vitamin C) [C-500] 500 mg tablet 500 mg PO DAILY Referrals / Follow Up: Jet,Kiana, UTILIZATION MANAGER-C [Primary Care Provider] - Disposition Disposition (needs filled in before D/C Order can be placed): Home, Self Care
--- NOTE | 2025-02-22 09:44 | PCM.POST.ANE ---
Anesthesia: Postop Eval I Current Vital Signs Temperature: 97.2 F Pulse Rate: 74 Blood Pressure: 185/76 Respiratory Rate: 12 Pulse Ox: 100 Oxygen Delivery Method: Simple Mask Assessment Airway patent: Yes Spontaneous unlabored respirations: Yes Mental status: Awake nausea: No Vomiting: No Anesthesia Complication: No Fluid Hydration Crystalloid volume administer (ml): 1,000 Total IV fluid infused: 1,000 Progress Note Anesthesia document: Postop Eval 1 completed: Yes
[2025-02-22] MEDS: Flumazenil 0.5 MG/5 ML Vial 0.2 MG IV (13:34)
[2025-02-22] MEDS: Meclizine HCl 25 MG Tablet PO (14:03)
--- NOTE | 2025-02-22 16:10 | CHAPLAIN ---
Type of Pastoral Visit ___ Initial Visit ___ Follow-up Visit ___ On-call Visit ___ General Patient Visit ___ Spiritual Assessment ___ Family Conference ___ Bereavement ___ Rapid Response ___ Code Blue ___ Other (describe below) Pastoral Care Referral From _x__ Patient ___ Family ___ Nurse ___ Physician ___ Milk Runner ___ Crane Crew Supervisor ___ Other (describe below) Sacrament/Intervention ___ Active listening ___ Anointing ___ Restoration ___ Bereavement ___ Communion ___ Supriya exploration ___ ___ Life review ___ Prayer ___ Reconciliation ___ Sacrament of Sick ___ Supportive presence ___ Wedding _x__ Other (describe below) Pastoral Comments went to AC room where patient was assigned but she had already been taken to surgery; after surgery found the patient but she was needing patient care; told the daughter that the thermodynamics engineer was offering support as requested and that he was sorry to have missed her; pt was soon discharged
--- NOTE | 2025-02-22 19:07 | POSTOPAN2_ITS ---
Anesthesia Postop Eval I Sum Postop Eval Completion status Anesthesia document: Postop Eval 1 completed: Yes Anesthesia Postop Eval I Summary Anesthesia Postop Eval I Summary: Anesthesia Postop Eval I: Assessment Summary Airway patent Yes 02/22/25 09:50 CLINICAL TRIAL [email or web address] Spontaneous unlabored Yes 02/22/25 09:50 CLINICAL TRIAL HEAD.[email or web address] respirations Mental status Awake 02/22/25 09:50 CLINICAL TRIAL HEAD.[email or web address] nausea No 02/22/25 09:50 CLINICAL TRIAL HEAD.HBARR Vomiting No 02/22/25 09:50 CLINICAL TRIAL HEAD.[email or web address] Anesthesia Postop Eval I: Fluid Summary Crystalloid volume administer 1,000 02/22/25 09:50 CLINICAL TRIAL HEAD.[email or web address] (ml) Colloids volume administered ( ml) Blood Product volume administered (ml) Total IV fluid infused 1,000 02/22/25 09:50 CLINICAL TRIAL HEAD.[email or web address] Anesthesia Postop Eval I: Summary Notes Anesthesia Complication No 02/22/25 09:50 CLINICAL TRIAL HEAD.[email or web address] Anesthesia Complication Comment: Post-operative progress note Anesthesia: Postop Eval II Evaluation Mental status: Awake and Calm Pain Level: 0 nausea: Yes Vomiting: No Progress Note Post-operative progress note: Once the patient was back in wound care specialist for stage II PACU, the daughter noted that the patient was still very groggy, sleepy and dizzy. She felt this may be secondary to the lorazepam and requested that we reverse with flumazenil. So 0.2 mg of flumazenil was given to the patient with positive results. The patient was more awake and alert. She was also given some meclizine at her usual dose to help with the dizziness and the nausea. This also improved the patient's symptoms. (Patient symptoms would most likely have resolved on their own but the patient and her daughter were much happier with our care as outlined above.) Complications Anesthesia Complication: No
== END 2025-02-22 15:20 | disposition home or self-care (01) ==
LOC: SDC 05:44 → AC 05:44
PROVIDERS: PCP Nurse Practitioner Family; Referring Provider Surgery; Visit Provider Surgery
PROC: 0HBV0ZZ Excision of Bilateral Breast, Open Approach (ICD-10-PCS; CPT 19302; principal; 2025-02-22 07:30)
DX: C50.112 Malignant neoplasm of central portion of left female breast (principal); C77.3 Secondary and unspecified malignant neoplasm of axilla and upper limb lymph nodes; E78.5 Hyperlipidemia, unspecified; K21.9 Gastro-esophageal reflux disease without esophagitis; Z17.0 Estrogen receptor positive status [ER+]; Z79.899 Other long term (current) drug therapy
CPT/HCPCS: 19301; 38525; 00400; 38792; 88305; 88309; 88341; 88342; 93005; A4648; A9520; J2405; Q9968

== ENCOUNTER 2025-04-04 12:28 | Emergency (ER) | payer MEDICARE, SELFPAY ==
[2025-04-04] VITALS (7 sets, daily range): BP systolic 146–180; BP diastolic 78–92; PULSE 74–95; RESP 14–21; TEMP 36.2–37.1; O2SAT 97–99; BMI 33.6
--- NOTE | 2025-04-04 13:19 | ED.VIS.CHEST ---
HPI History of Present Illness Chief Complaint: Chest Pain Informant: patient Narrative Narrative: Patient 79-year-old female with history of vertigo, GERD, hyperlipidemia, hypertension and recent diagnosis of left-sided breast cancer (has not started treatment yet). She is presenting today for chest tightness and elevated blood pressure. Patient know she has a history of vertigo and around 930 this morning took meclizine. States that usually helps within 15 minutes. Did not really help as much today but she had gynecology appointment at 1020. She did drive herself there despite having the vertigo. While she was there she was noted to have elevated blood pressure. She was updated today she has been uneasy feeling, and had a tightness in her chest that started this morning (she thinks when she woke up with it), had a frontal headache and not feeling well. She denies any signs of nausea or vomiting. Does not report any photophobia. Does not describe this as the worst headache of her life. States the chest discomfort is more diffuse. Is worse with certain movements or from her bra but feeling a little tight. Denies any associated shortness of breath or leg swelling. Denies a history of DVT or PE. When she called her primary care doctor after her gynecology appointment for her symptoms and elevated blood pressure she could not get through it was told they would return or call within 48 hours that she decided to come to the ER for further evaluation. She denies any known cardiac history. Denies any significant family history. Came in for further evaluation. States she still has a mild tightness in her chest. 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 [facility] Medical History Osteopenia Cancer Wears glasses Post-menopausal Arthritis Low iron Fatty liver History of hiatal hernia Non-smoker History of pain when walking History of echocardiogram History of stress test GERD (gastroesophageal reflux disease) Vertigo Hyperlipidemia Home Medications ?Medication ?Instructions ?Recorded ?Last Taken ?Type fenofibric acid (choline) 135 mg 135 mg PO DAILY 02/28/22 04/03/25 History capsule,delayed release calcium 600 mg (as carbonate)-vit 1 tab PO DAILY 06/05/22 04/04/25 History D3 10 mcg (400 unit) chewable tablet (Calcium 600 with Vitamin D3) meclizine 25 mg tablet 25 mg PO DAILY PRN vertigo 06/05/22 04/04/25 History pantoprazole 40 mg tablet,delayed 40 mg PO DAILY #14 tabs 03/09/23 04/04/25 Rx release Mccoy Revive 2 cap PO DAILY 10/18/24 04/03/25 History ascorbic acid (vitamin C) 500 mg 500 mg PO DAILY 01/20/25 04/04/25 History tablet (C-500) boric acid 600 mg vaginal 600 mg vaginal WE 01/20/25 03/30/25 History suppository d-mannose 500 mg capsule 500 mg PO BID 01/20/25 04/04/25 History vitamin E 268 mg (400 unit) capsule 268 mg PO DAILY 01/20/25 04/04/25 History Allergy/AdvReac Type Severity Reaction Status Date / Time sulfamethoxazole (From Allergy Mild Other Verified 04/04/25 12:29 Bactrim) trimethoprim (From Bactrim) Allergy Mild Other Verified 04/04/25 12:29 chlorhexidine (From Allergy Rash Verified 04/04/25 12:29 ChloraPrep Clear) potassium clavulanate (From Allergy Rash Verified 04/04/25 12:29 Augmentin) amoxicillin trihydrate (From AdvReac Rash Verified 04/04/25 12:29 Augmentin) Family History Father Heart disease CVA (cerebral vascular accident) Surgical History Status post partial mastectomy of left breast History of breast lump/mass excision History of surgery on wrist History of surgery on wrist History of esophagogastroduodenoscopy (EGD) Hx of colonoscopy H/O tubal ligation Social History Smoking Status: Never smoker alcohol intake: current details: social substance use type: does not use caffeine: Yes frequency: 1-2 times per week seatbelt use: always do you feel safe at home: Yes additional social history: (Matias) ROS ROS ED Constitutional Constitutional ED: Denies chills or fever(s) Eyes Eyes: Denies blurry vision or change in vision Cardiovascular Cardiovascular: Reports as per HPI and chest pain; Denies palpitations Respiratory/Chest Respiratory/Chest: Denies cough Musculoskeletal Musculoskeletal: Denies arthralgias or myalgias Integumentary Denies rash Neurologic Neurologic: Reports headache(s); Denies weakness Psychiatric Psychiatric: Reports other Details: Reports increased stress ; Denies anxiety Hematologic/Lymphatic Hematologic/Lymphatic: Denies easy bleeding or easy bruising EXAM Physical Exam Const Vital Signs: 04/04/25 12:29 04/04/25 12:54 04/04/25 12:54 Temperature 97.2 F L Temperature Source Temporal Pulse Rate 95 90 Respiratory Rate 20 H 18 Respiratory Effort Normal Non-Labored Respiratory Pattern Blood Pressure 180/84 H Blood Pressure Mean 116 Pulse Ox 97 97 Oxygen Delivery Method Room Air 04/04/25 12:54 04/04/25 13:22 04/04/25 13:30 Temperature Temperature Source Pulse Rate 82 Respiratory Rate 21 H Respiratory Effort Normal Non-Labored Respiratory Pattern Normal Blood Pressure 165/82 H Blood Pressure Mean 106 Pulse Ox 99 Oxygen Delivery Method Room Air 04/04/25 14:00 04/04/25 15:00 04/04/25 16:00 Temperature Temperature Source Pulse Rate 79 77 74 Respiratory Rate 19 H 17 14 Respiratory Effort Respiratory Pattern Blood Pressure 169/92 H 161/86 H 163/83 H Blood Pressure Mean 109 108 107 Pulse Ox 99 Oxygen Delivery Method Positive well nourished and well developed General Appearance ED: well developed and NAD HEENT Reports moist mucous membranes Eyes PERRL Neck supple and no JVD Chest Wall inspection of chest normal and palpation of chest normal Resp normal respiratory effort and clear to auscultation bilaterally Cardio regular rate, regular rhythm and no murmurs GI normal to inspection, nondistended, normoactive bowel sounds and soft to palpation Extremity normal to inspection General Extremety ED: Negative for edema General Extremity: Negative for edema Neuro oriented x3 Sensorium / Orientation: awake Motor Exam: Negative for general weakness Psych mental status grossly normal Mood & Affect: Negative for depressed or tearful Skin no rashes or lesions noted Heart Score History: Slightly/Non-Suspicious ECG: Normal Age: >/= 65 years Risk Factors: 1 or 2 Risk Factors Troponin: </= Normal Limit Score: 3 MDM MDM MDM Narrative Medical decision making narrative: Patient is evaluated for chest tightness. She also been feeling foggy and had a little bit more vertigo than normal today. Blood pressure has been elevated. Upon arrival patient is hypertensive but otherwise well-appearing. She denies any sudden onset of pain of severe chest pain right and no radiation to her back or abdomen. She has equal pulses in her extremities and low suspicion for acute aortic dissection. She does have a recent diagnosis of breast cancer and with ages increased risk of PE. She is otherwise breathing comfortably with no hypoxia or tachypnea. D-dimer is normal for age adjustment I do not think she needs a CTA. CBC does show chronic anemia with hemoglobin 10.8 but this appears stable. Her BMP is largely normal with a mild elevation of creatinine of 1.22 which appears stable and chronic. Magnesium is normal. High sensitive troponin normal x 2 at 10 and 11. TSH is normal at 3.49. Chest x-ray is added on. Anticipate discharge home with outpatient follow-up with PCP and home blood pressure monitoring. I do not think this is a hypertensive emergency. Feel that patient stable for outpatient follow-up. Chest x-ray reviewed by myself does not show any acute process. Lab Data Attestation: I reviewed the patient's lab results. Labs: Laboratory Results - last 24 hr 04/04/25 04/04/25 13:15 15:25 WBC 6.3 RBC 4.30 Hgb 10.8 L Hct 34.8 L MCV 80.9 L MCH 25.1 L MCHC 31.0 L RDW Std Deviation 48.1 H RDW Coeff of Kimi 16.4 H Plt Count 371 MPV 9.5 Immature Gran % (Auto) 0.200 Neut % (Auto) 69.0 Lymph % (Auto) 23.2 [place] % (Auto) 6.0 Eos % (Auto) 0.8 Baso % (Auto) 0.8 Absolute Neuts (auto) 4.4 Absolute Lymphs (auto) 1.47 Nucleated RBC % 0 D-Dimer Quant (PE/DVT) 0.53 H* Sodium 140 Potassium 3.7 Chloride 105 Carbon Dioxide 23.2 Anion Gap 12 BUN 17 Creatinine 1.22 H Estim Creat Clear Calc 36.60 L Est GFR (MDRD) Non-Af 45 L BUN/Creatinine Ratio 13.7 Glucose 130 H Calcium 9.1 Magnesium 2.1 Troponin T High Sens 10 Troponin T Hi Sens 2 Hr 11 TSH 3.490 Rhythm Strip Rhythm Strip: Sinus Rhythm Rate: 88 Ectopy: PVC(s) EKG Initial EKG: Attestation: I personally reviewed and interpreted this EKG as follows: Interpretation: Sinus Rhythm Comments: Normal sinus rhythm at a rate of 88 bpm with PVCs LVH Left axis Normal ST segments Compared to prior EKG on 02/18/2025 patient now has PVCs Follow-up EKG: Attestation: I personally reviewed and interpreted this EKG as follows: Interpretation: Sinus Rhythm Comments: Normal sinus rhythm with PVCs present Normal ST segments no dynamic changes Discharge Plan Triage Chief Complaint: Chest Pain Other Complaint: Hypertension ED Provider: Margoth Villalpando Dx/Rx/DC Orders Clinical Impression: Chest pain of uncertain etiology, Hypertension Instructions: ED Chest Pain, Uncertain Cause, ED Hypertension, Established Prescriptions: No Action meclizine 25 mg tablet 25 mg PO DAILY PRN (Reason: vertigo) Calcium 600 with Vitamin D3 600 mg-10 mcg (400 unit) tablet,chewable 1 tab PO DAILY Mccoy Revive 2 cap PO DAILY fenofibric acid (choline) 135 mg capsule,delayed release(DR/EC) 135 mg PO DAILY Patient Comments: Take 1 Capsule by mouth daily pantoprazole 40 mg tablet,delayed release (DR/EC) 40 mg PO DAILY Qty: 14 0RF d-mannose 500 mg capsule 500 mg PO BID boric acid 600 mg suppository 600 mg vaginal WE vitamin E 268 mg (400 unit) capsule 268 mg PO DAILY ascorbic acid (vitamin C) [C-500] 500 mg tablet 500 mg PO DAILY Primary Care Provider: Kiana Chaudhary Referrals: Kiana Chaudhary, [facility] [Primary Care Provider] - Activity Restrictions/Additional Instructions: Please keep a log of your blood pressure and follow-up with your primary care doctor. You might need adjustment of blood pressure medication. Your workup today was largely reassuring with no acute or severe process. Please return if you have worsening symptoms or further concerns. Print Language: Egyptian Disposition Disposition: Home, Self Care
--- NOTE | 2025-04-04 13:26 | EKG12_ITS ---
Test Reason : CP REPEAT Blood Pressure : */* mmHG Vent. Rate : 82 BPM Atrial Rate : 82 BPM P-R Int : 152 ms QRS Dur : 88 ms QT Int : 368 ms P-R-T Axes : 45 -15 126 degrees QTcB Int : 429 ms Sinus rhythm with occasional Premature ventricular complexes Left ventricular hypertrophy with repolarization abnormality ( R in aVL ) Abnormal ECG Confirmed by Papa Covington ([id number]), editor in chief newspaper DESHAWN MICHAELS ([id number]) on 04/08/2025 1:22:08 PM Referred By: NATALIE Confirmed By: Papa Covington
--- NOTE | 2025-04-04 13:30 | EKG12_ITS ---
Test Reason : CP Blood Pressure : */* mmHG Vent. Rate : 88 BPM Atrial Rate : 88 BPM P-R Int : 114 ms QRS Dur : 86 ms QT Int : 354 ms P-R-T Axes : 43 -8 116 degrees QTcB Int : 428 ms Sinus rhythm with occasional and consecutive Premature ventricular complexes Left ventricular hypertrophy with repolarization abnormality ( R in aVL ) Abnormal ECG Confirmed by Papa Covington ([id number]), news videotape editor DESHAWN MICHAELS ([id number]) on 04/08/2025 1:20:32 PM Referred By: UG/CG Confirmed By: Papa Covington
[2025-04-04 13:35] LABS: Absolute Lymphocyte Count 1.47 X10^3/uL (0.83-4.51); Absolute Neutrophil Count 4.4 X10^3/uL (2.0-7.7); Basophil# 0.05 X10^3/uL; Basophil% 0.8 % (0-1); Eosinophil# 0.05 X10^3/uL; Eosinophils% 0.8 % (0-5); Hematocrit 34.8 % (37-47); Hemoglobin 10.8 g/dL (12.0-15.0); Lymphocyte # 1.47 X10^3/ul (0.83-4.51); Lymphocyte % 23.2 % (19-41); Mean Corpuscular Hgb 25.1 pg (27.0-32.0); Mean Corpuscular Volume 80.9 fL (81-99); Mean Platelet Vol. 9.5 fl (6.2-12.0); Monocyte# 0.38 X10^3/uL; NRBC Flagged by Analyzer 0 % (0-5); Neutrophil # 4.38 X10^3/uL (2.7-7.7); Platelet Count 371 K/mm3 (150-450); RBC Distribution Width CV 16.4 % (11.6-14.6); RBC Distribution Width SD 48.1 fl (35.1-43.9); White Blood Count 6.3 K/mm3 (4.4-11.0)
[2025-04-04] MEDS: Aspirin 81 MG TAB.CHEW 324 MG PO (13:55)
[2025-04-04 14:03] LABS: D-Dimer Quantitative (DVT/PE) 0.53 FEU/ug/m (0.27-0.49)
[2025-04-04 14:50] LABS: Anion Gap 12 (5-15); BUN 17 mg/dL (4-19); BUN/Creat Ratio 13.7 RATIO (10-20); Calcium,Total 9.1 mg/dL (7.6-11.0); Carbon Dioxide 23.2 mmol/L (21.0-32.0); Chloride 105 mmol/L (98-108); Creatinine, Serum 1.22 mg/dL (0.70-1.20); EST Glomerular Filtration Rate 45 (>60); Glucose 130 mg/dL (70-99); Magnesium 2.1 mg/dL (1.5-2.2); Potassium 3.7 mmol/L (3.3-5.1); Sodium Level 140 mmol/L (133-145); Troponin T High Sensitivity 10 ng/L (<=14)
[2025-04-04 16:03] LABS: Troponin T High Sens 2 HR 11 ng/L (<=14)
--- NOTE | 2025-04-04 16:40 | RAD_ITS ---
PROCEDURE: CHEST PA AND LATERAL 04/04/2025 REASON FOR EXAM: CHEST PAIN TECHNIQUE: Frontal and lateral views of the chest. COMPARISON: Portable chest dated 05/21/2023. FINDINGS: Lungs: Lungs clear of pneumonia and congestion. Pleura: No pleural effusions, thickening, or pneumothorax. Heart: Normal in size and configuration. Mediastinum/Ibeth: Unremarkable. Great vessels: Unremarkable. Bones/soft tissues: Multilevel spondylosis. Levoscoliosis. Cardiac monitoring leads overlie the chest wall.. RAD/Chest PA and Lateral IMPRESSION: No active cardiopulmonary disease. Reading Location: [facility]
== END 2025-04-04 17:02 | disposition home or self-care (01) ==
PROVIDERS: Emergency Provider Emergency Medicine; PCP Nurse Practitioner Family; Visit Provider Emergency Medicine
DX: R07.9 Chest pain, unspecified (principal); E78.5 Hyperlipidemia, unspecified; I10 Essential (primary) hypertension; Z85.3 Personal history of malignant neoplasm of breast; R42 Dizziness and giddiness; Z79.899 Other long term (current) drug therapy; K21.9 Gastro-esophageal reflux disease without esophagitis; Z90.12 Acquired absence of left breast and nipple; Z98.51 Tubal ligation status
CPT/HCPCS: 71046; 80048; 83735; 84443; 84484; 85025; 85379; 93005; 99285; A4216

== ENCOUNTER 2025-04-07 09:45 | Emergency (ER) | payer MEDICARE, SELFPAY ==
[2025-04-07 09:46] VITALS: BP 166/80; PULSE 84; RESP 14; TEMP 36.1; O2SAT 100; BMI 33.8
--- NOTE | 2025-04-07 10:58 | EX.ED.DYSGE1 ---
"HPI History of Present Illness Chief Complaint: Hypertension Informant: patient and friend Narrative Narrative: Presents with concerning elevated blood pressure. Patient seen 3 days ago for chest pain with elevated blood pressure. No patient lost her spouse in December. In January she was diagnosed with left-sided breast cancer. She is followed with planned radiation treatment on Friday. She states blood pressure recently 160s. She was worked up 3 days ago for chest pains blood pressure 160s over 80s. Workup negative. She follow-up with her PCP the next day was told to keep a monitor on her blood pressure with nursing visit in 2 weeks. Has been 160s, this morning after breakfast it was 190. She came here for evaluation. No headaches. No chest pains. No vomiting or diarrhea. Prior similar symptoms: Yes PFSH [facility] Medical History Osteopenia Cancer Wears glasses Post-menopausal Arthritis Low iron Fatty liver History of hiatal hernia Non-smoker History of pain when walking History of echocardiogram History of stress test GERD (gastroesophageal reflux disease) Vertigo Hyperlipidemia Home Medications ?Medication ?Instructions ?Recorded ?Last Taken ?Type fenofibric acid (choline) 135 mg 135 mg PO DAILY 02/28/22 04/03/25 History capsule,delayed release calcium 600 mg (as carbonate)-vit 1 tab PO DAILY 06/05/22 04/04/25 History D3 10 mcg (400 unit) chewable tablet (Calcium 600 with Vitamin D3) meclizine 25 mg tablet 25 mg PO DAILY PRN vertigo 06/05/22 04/04/25 History pantoprazole 40 mg tablet,delayed 40 mg PO DAILY #14 tabs 03/09/23 04/04/25 Rx release Mccoy Revive 2 cap PO DAILY 10/18/24 04/03/25 History ascorbic acid (vitamin C) 500 mg 500 mg PO DAILY 01/20/25 04/04/25 History tablet (C-500) boric acid 600 mg vaginal 600 mg vaginal WE 01/20/25 03/30/25 History suppository d-mannose 500 mg capsule 500 mg PO BID 01/20/25 04/04/25 History vitamin E 268 mg (400 unit) capsule 268 mg PO DAILY 01/20/25 04/04/25 History alprazolam 0.5 mg tablet (Xanax) 0.5 mg PO DAILY anxiety #20 tabs 04/07/25 Unknown Rx sertraline 50 mg tablet (Zoloft) 50 mg PO DAILY #30 tabs 04/07/25 Unknown Rx Allergy/AdvReac Type Severity Reaction Status Date / Time sulfamethoxazole (From Allergy Mild Other Verified 04/07/25 09:48 Bactrim) trimethoprim (From Bactrim) Allergy Mild Other Verified 04/07/25 09:48 chlorhexidine (From Allergy Rash Verified 04/07/25 09:48 ChloraPrep Clear) potassium clavulanate (From Allergy Rash Verified 04/07/25 09:48 Augmentin) amoxicillin trihydrate (From AdvReac Rash Verified 04/07/25 09:48 Augmentin) Family History Father Heart disease CVA (cerebral vascular accident) Surgical History Status post partial mastectomy of left breast History of breast lump/mass excision History of surgery on wrist History of surgery on wrist History of esophagogastroduodenoscopy (EGD) Hx of colonoscopy H/O tubal ligation Social History Smoking Status: Never smoker alcohol intake: current details: social substance use type: does not use caffeine: Yes frequency: 1-2 times per week seatbelt use: always do you feel safe at home: Yes additional social history: (Matias) ROS ROS ED Constitutional Constitutional ED: Denies chills, fever(s) or sweats ENT ENT ED: Denies sore throat Cardiovascular Cardiovascular: Denies chest pain, leg edema, palpitations or racing heartbeat Respiratory/Chest Respiratory/Chest: Denies cough, dyspnea or dyspnea on exertion Gastrointestinal Gastrointestinal: Denies abdominal pain, diarrhea, nausea or vomiting Genitourinary Genitourinary ED: Denies dysuria, hematuria or urinary frequency Musculoskeletal Musculoskeletal: Denies back pain, extremity pain or neck pain Integumentary Denies rash or wounds Neurologic Neurologic: Denies headache(s), paresthesias or weakness EXAM Physical Exam Const Vital Signs: 04/07/25 09:46 04/07/25 10:34 04/07/25 11:46 Temperature 97 F L Temperature Source Temporal Pulse Rate 84 Respiratory Rate 14 Respiratory Effort Normal Non-Labored Respiratory Pattern Normal Blood Pressure 166/80 H 163/87 H Blood Pressure Mean 108 112 Pulse Ox 100 Oxygen Delivery Method Room Air Positive well nourished and well developed General Appearance ED: well developed and NAD HEENT Reports moist mucous membranes normocephalic and atraumatic Eyes General Eye ED: Yes normal appearance of both eyes Neck full ROM Chest Wall Chest: Negative for tenderness Resp normal respiratory effort and normal air movement Effort and Inspection: symmetric chest movement; Negative for respiratory distress Cardio regular rate, regular rhythm and no murmurs Peripheral Pulses: pulses 2+ throughout GI normal to inspection, nondistended, normoactive bowel sounds and non-tender Palpation: Negative for guarding or rebound tenderness present Extremity normal to inspection General Extremety ED: Negative for edema or tenderness General Extremity: Negative for edema Neuro oriented x3 and no sensory deficits noted Sensorium / Orientation: awake and alert Skin no rashes or lesions noted and no wounds MDM MDM MDM Narrative Medical decision making narrative: Interventions / MDM: Differential diagnosis: Acute stress reaction, elevated blood pressure, recent breast cancer Diagnosis considered but do not suspect: N/A My EKG interpretation: N/A Imaging independently reviewed and interpreted by myself: N/A External documents reviewed: ED evaluation from 3 days ago negative cardiac workup including D-dimer. Blood pressure systolic 160s. Test considered but not ordered:N/A ED course: Patient triage blood pressure 166/80. After discussing with patient with her history concerned this is anxiety induced with loss of her spouse and current diagnosis of breast cancer pending treatment with radiation. Her daughter she reports is a nurse and this assists flying in from [place] for her treatment. She has not discussed with her PCP the stress with everything going through. I feel that treatment of her stress will help with her blood pressure. 1050: Spoke with her daughter Citlali on the phone with the patient in the room. Discussed treating anxiety will likely help symptoms she agrees with the plan. I will dose her with 0.5 mg of Xanax. Blood pressure during treatment 189/86. I will discuss with her PCP for initiation of treatment. Will reevaluate. 1230: Blood pressure recheck 163/87. I discussed with PCP office with Dr. Parham, agrees with plan of care. She would like to start the patient on Zoloft half of the 50 mg for the first week then go up to full tab. She requests 20 tabs of Xanax to be written for the patient to use as needed to start once a day if needed. Patient will follow-up in the office for reevaluation. Re-evaluation: stable Disposition discussed with patient/family/significant other: Patient, daughter and friend Case discussed with consulting clinician: PCP office This note was generated with [employer] | [employer] dictation software. It may contain incorrect words, spelling, and punctuation that were not noted in checking the note before signing. Discharge Plan Triage Chief Complaint: Hypertension ED Provider: Wesly Leiva Dx/Rx/DC Orders Clinical Impression: Acute stress disorder, Breast cancer, left breast, Elevated blood pressure, situational Instructions: [place] to Managing Stress, Blood Pressure Check Steps Prescriptions: New sertraline [Zoloft] 50 mg tablet 50 mg PO DAILY Qty: 30 0RF alprazolam [Xanax] 0.5 mg tablet 0.5 mg PO DAILY Qty: 20 0RF No Action meclizine 25 mg tablet 25 mg PO DAILY PRN (Reason: vertigo) Calcium 600 with Vitamin D3 600 mg-10 mcg (400 unit) tablet,chewable 1 tab PO DAILY Mccoy Revive 2 cap PO DAILY fenofibric acid (choline) 135 mg capsule,delayed release(DR/EC) 135 mg PO DAILY Patient Comments: Take 1 Capsule by mouth daily pantoprazole 40 mg tablet,delayed release (DR/EC) 40 mg PO DAILY Qty: 14 0RF d-mannose 500 mg capsule 500 mg PO BID boric acid 600 mg suppository 600 mg vaginal WE vitamin E 268 mg (400 unit) capsule 268 mg PO DAILY ascorbic acid (vitamin C) [C-500] 500 mg tablet 500 mg PO DAILY Primary Care Provider: Kiana Chaudhary Referrals: Kiana Chaudhary, [facility] [Primary Care Provider] - 1-2 Weeks Activity Restrictions/Additional Instructions: Your blood pressure likely from your current stressors. I did discuss with Dr. Parham. We all agreed to start you on medicines to help with your anxiety and stress with your situation. Take Zoloft half a tab once a day for the next 7 days can go up to a full tab for total of 50 mg. Use Xanax for breakthrough stress as needed once a day for right now. If severe enough may use twice a day. Keep your follow-up with the office . Print Language: [place] Disposition Disposition: Home, Self Care"
[2025-04-07 11:46] VITALS: BP 163/87
[2025-04-07] MEDS: ALPRAZolam 0.5 MG Tablet PO (11:54)
[2025-04-07 13:00] VITALS: BP 171/88; PULSE 78; PULSE 86; RESP 14; RESP 16; TEMP 37.1; O2SAT 98; O2SAT 99
== END 2025-04-07 13:14 | disposition home or self-care (01) ==
PROVIDERS: Emergency Provider Emergency Medicine; PCP Nurse Practitioner Family; Visit Provider Emergency Medicine
DX: F43.0 Acute stress reaction (principal); C50.912 Malignant neoplasm of unspecified site of left female breast; R03.0 Elevated blood-pressure reading, without diagnosis of hypertension; Z63.4 Disappearance and death of family member; K21.9 Gastro-esophageal reflux disease without esophagitis; E78.5 Hyperlipidemia, unspecified; M85.80 Other specified disorders of bone density and structure, unspecified site; Z90.12 Acquired absence of left breast and nipple; Z79.899 Other long term (current) drug therapy
CPT/HCPCS: 99282

== ENCOUNTER 2025-04-11 04:01 | Emergency (ER) | payer MEDICARE, SELFPAY ==
[2025-04-11 04:04] VITALS: BP 176/78; PULSE 69; RESP 13; TEMP 36.8; O2SAT 100; BMI 34.2
--- NOTE | 2025-04-11 04:30 | EX.ED.DYSGE1 ---
HPI History of Present Illness Chief Complaint: Hypertension Informant: patient Onset/Context/Timing Onset: Days Context: Gradual Onset Timing: Intermittent Current Severity: Mild Maximum Severity: Mild Narrative Narrative: 79-year-old female history of hypertension recently started on amlodipine. Also history of anxiety. passed earlier this year. She has been recently diagnosed with breast cancer had a lumpectomy and is scheduled to begin radiation therapy today. She was seen emergency department twice last week. Labs are pretty unremarkable other than a mild anemia. Tonight she noted her blood pressure was a little higher and came in the emergency department. Denies recent illness. Currently feels well. Prior similar symptoms: Yes Recent Illness/Hospitalization: No [facility] Medical History Osteopenia Cancer Wears glasses Post-menopausal Arthritis Low iron Fatty liver History of hiatal hernia Non-smoker History of pain when walking History of echocardiogram History of stress test GERD (gastroesophageal reflux disease) Vertigo Hyperlipidemia Home Medications ?Medication ?Instructions ?Recorded ?Last Taken ?Type fenofibric acid (choline) 135 mg 135 mg PO DAILY 02/28/22 04/03/25 History capsule,delayed release calcium 600 mg (as carbonate)-vit 1 tab PO DAILY 06/05/22 04/04/25 History D3 10 mcg (400 unit) chewable tablet (Calcium 600 with Vitamin D3) meclizine 25 mg tablet 25 mg PO DAILY PRN vertigo 06/05/22 04/04/25 History pantoprazole 40 mg tablet,delayed 40 mg PO DAILY #14 tabs 03/09/23 04/04/25 Rx release Mccoy Revive 2 cap PO DAILY 10/18/24 04/03/25 History ascorbic acid (vitamin C) 500 mg 500 mg PO DAILY 01/20/25 04/04/25 History tablet (C-500) boric acid 600 mg vaginal 600 mg vaginal WE 01/20/25 03/30/25 History suppository d-mannose 500 mg capsule 500 mg PO BID 01/20/25 04/04/25 History vitamin E 268 mg (400 unit) capsule 268 mg PO DAILY 01/20/25 04/04/25 History alprazolam 0.5 mg tablet (Xanax) 0.5 mg PO DAILY anxiety #20 tabs 04/07/25 Unknown Rx sertraline 50 mg tablet (Zoloft) 50 mg PO DAILY #30 tabs 04/07/25 Unknown Rx Allergy/AdvReac Type Severity Reaction Status Date / Time sulfamethoxazole (From Allergy Mild Other Verified 04/07/25 09:48 Bactrim) trimethoprim (From Bactrim) Allergy Mild Other Verified 04/07/25 09:48 chlorhexidine (From Allergy Rash Verified 04/07/25 09:48 ChloraPrep Clear) potassium clavulanate (From Allergy Rash Verified 04/07/25 09:48 Augmentin) amoxicillin trihydrate (From AdvReac Rash Verified 04/07/25 09:48 Augmentin) Family History Father Heart disease CVA (cerebral vascular accident) Surgical History Status post partial mastectomy of left breast History of breast lump/mass excision History of surgery on wrist History of surgery on wrist History of esophagogastroduodenoscopy (EGD) Hx of colonoscopy H/O tubal ligation Social History Smoking Status: Never smoker alcohol intake: current details: social substance use type: does not use caffeine: Yes frequency: 1-2 times per week seatbelt use: always do you feel safe at home: Yes additional social history: (Matias) ROS ROS ED ROS Narrative Denies recent illness. Constitutional Constitutional ED: Denies chills or fever(s) Eyes Eyes: Denies blurry vision ENT ENT ED: Denies ear pain Cardiovascular Cardiovascular: Denies chest pain Respiratory/Chest Respiratory/Chest: Denies cough Gastrointestinal Gastrointestinal: Denies abdominal pain Genitourinary Genitourinary ED: Denies dysuria Musculoskeletal Musculoskeletal: Denies arthralgias Integumentary Denies abscess Neurologic Neurologic: Denies headache(s) Psychiatric Psychiatric: Reports anxiety Endocrine Endocrinology: Denies cold intolerance Hematologic/Lymphatic Hematologic/Lymphatic: Reports none Allergic/Immunologic Allergic/Immunologic ED: Denies mouth swelling, tongue swelling or urticaria EXAM Physical Exam Narrative Exam Narrative: Well-appearing 79-year-old female. Vital signs stable afebrile. Initial blood pressure 176/78. Repeated while in the room 165/72. Patient is in no distress. H EENT exam pupils round react to light. Extra motions are intact. No facial droop. Normal speech. Neck nontender no JVD. Lungs clear to auscultation bilaterally. Heart regular rhythm rate about 70 no murmur. Chest wall ribs nontender. Abdomen soft nontender. Moving all 4 extremities. Nontender no edema. Normal strength. Normal range of motion. Back nontender. Neurologically she is awake alert. Answer questions following commands. Mildly anxious but is calming down as we talk and discuss and go through things. Very benign exam. Const Vital Signs: 04/11/25 04:04 04/11/25 04:10 Temperature 98.2 F Temperature Source Oral Pulse Rate 69 Respiratory Rate 13 Respiratory Effort Normal Respiratory Pattern Normal Blood Pressure 176/78 H Blood Pressure Mean 110 Pulse Ox 100 Oxygen Delivery Method Room Air Positive well nourished and well developed; Negative for cachectic, contractures or unkempt General Appearance ED: well developed and NAD; Negative for unkempt, cachectic, contractures, cyanotic, diaphoretic or pallor Nutritional Appearance: Negative for cachectic HEENT Reports moist mucous membranes Eyes PERRL and EOMs intact bilaterally Neck no lymphadenopathy, supple and no JVD Chest Wall inspection of chest normal and palpation of chest normal Resp normal respiratory effort and clear to auscultation bilaterally Cardio regular rate, regular rhythm, S1 normal heart sound, S2 normal heart sound and no murmurs GI normal to inspection, nondistended, normoactive bowel sounds, non-tender, non-distended and no masses Inspection: Negative for abdominal distention Palpation: soft; Negative for tender, guarding or rebound tenderness present Back/Spine no CVA tenderness Extremity normal to inspection General Extremety ED: Negative for edema or tenderness General Extremity: Negative for edema Neuro oriented x3 and CN's II-XII intact bilaterally Sensorium / Orientation: alert; Negative for orientation impaired, lethargic or stuporous Motor Exam: strength 5/5 throughout; Negative for general weakness or strength abnormal Psych mental status grossly normal Appearance: Negative for unkempt Attitude: No agitated Mood & Affect: anxious; Negative for depressed or tearful Skin no rashes or lesions noted, no wounds and skin turgor normal General Skin Exam: elasticity normal; Negative for jaundice or pallor Lesions: No lesion noted Rashes: No rashes noted Trauma: Negative for abrasion Wounds: Negative for wounds noted MDM MDM MDM Narrative Medical decision making narrative: 79-year-old female acute on chronic hypertension currently on amlodipine 5 mg a day. Also some mild anxiety which is normal for everything that she is currently dealing with. Patient's exam is benign. She has had recent labs that were basically unremarkable other than mild anemia. I would not make any changes in her medications. Outpatient follow-up patient is comfortable with the plan.. Logging her blood pressure to see if they need to make any adjustments in her antihypertensive. Use her antianxiety meds as needed. History & Record Review Discussion w/independent historian: Patient Additional record(s) reviewed:: Prior inpatient record, Prior outpatient record, Prior ED visit and Prior labs Discharge Plan Triage Chief Complaint: Hypertension ED Provider: Manoj Mehta Dx/Rx/DC Orders Clinical Impression: Hypertension, Anxiety Instructions: ED Anxiety Reaction, ED High Blood Pressure Hypertension Prescriptions: No Action meclizine 25 mg tablet 25 mg PO DAILY PRN (Reason: vertigo) Calcium 600 with Vitamin D3 600 mg-10 mcg (400 unit) tablet,chewable 1 tab PO DAILY Mccoy Revive 2 cap PO DAILY fenofibric acid (choline) 135 mg capsule,delayed release(DR/EC) 135 mg PO DAILY Patient Comments: Take 1 Capsule by mouth daily pantoprazole 40 mg tablet,delayed release (DR/EC) 40 mg PO DAILY Qty: 14 0RF sertraline [Zoloft] 50 mg tablet 50 mg PO DAILY Qty: 30 0RF alprazolam [Xanax] 0.5 mg tablet 0.5 mg PO DAILY Qty: 20 0RF d-mannose 500 mg capsule 500 mg PO BID boric acid 600 mg suppository 600 mg vaginal WE vitamin E 268 mg (400 unit) capsule 268 mg PO DAILY ascorbic acid (vitamin C) [C-500] 500 mg tablet 500 mg PO DAILY Primary Care Provider: Kiana Chaudhary Referrals: Kiana Chaudhary NP-C [Primary Care Provider] - As Needed Activity Restrictions/Additional Instructions: Follow-up your primary care physician. Log your blood pressures in the morning in the evening twice a day. Follow-up with your primary care provider to ensure that your blood pressure is being controlled appropriately with the current medication. A lot of this may be anxiety secondary to all that you have going on. That may improve with time and as you get through the radiation therapy. Use your anxiety medications as needed and prescribed. Print Language: Greenlandic Disposition Disposition: Home, Self Care
[2025-04-11 04:42] VITALS: BP 160/64; PULSE 65; RESP 16; TEMP 36.7; O2SAT 100
[2025-04-11 06:03] VITALS: PULSE 78; RESP 16; O2SAT 97
== END 2025-04-11 07:10 | disposition home or self-care (01) ==
PROVIDERS: Emergency Provider Emergency Medicine; PCP Nurse Practitioner Family; Visit Provider Emergency Medicine
DX: I10 Essential (primary) hypertension (principal); C50.912 Malignant neoplasm of unspecified site of left female breast; F41.9 Anxiety disorder, unspecified; D64.9 Anemia, unspecified; K21.9 Gastro-esophageal reflux disease without esophagitis; E78.5 Hyperlipidemia, unspecified; M85.80 Other specified disorders of bone density and structure, unspecified site; Z90.12 Acquired absence of left breast and nipple; Z79.899 Other long term (current) drug therapy
CPT/HCPCS: 99283

== ENCOUNTER 2025-04-23 04:20 | Emergency (ER) | payer MEDICARE, SELFPAY ==
[2025-04-23 04:21] VITALS: BP 185/88; PULSE 75; RESP 18; TEMP 36.8; O2SAT 100; BMI 34.2
--- NOTE | 2025-04-23 04:52 | EKG12_ITS ---
Test Reason : DYSRHYTHMIA Blood Pressure : */* mmHG Vent. Rate : 62 BPM Atrial Rate : 62 BPM P-R Int : 160 ms QRS Dur : 84 ms QT Int : 424 ms P-R-T Axes : 55 -2 83 degrees QTcB Int : 430 ms Normal sinus rhythm Nonspecific ST and T wave abnormality Abnormal ECG Confirmed by Papa Covington ([id number]), social media editor BRENDA CAMACHO ([id number]) on 05/02/2025 1:01:38 PM Referred By: Confirmed By: Papa Covington
--- NOTE | 2025-04-23 04:52 | CT_ITS ---
PROCEDURE: BRAIN/HEAD WITHOUT CONTRAST 04/23/2025 REASON FOR EXAM: HEADACHE, HISTORY OF CANCER TECHNIQUE: Head CT without intravenous contrast. Coronal and Sagittal reconstruction series were provided. One or more dose reduction techniques were used (e.g., Automated exposure control, adjustment of the mA and/or kV according to patient size, use of iterative reconstruction technique. RADIATION DOSE SUMMARY: CTDlvol: 44.99 mGy DLP: 796.11 mGycm COMPARISON: None available FINDINGS: No intracranial hemorrhage, mass effect or CT evidence of large vascular territory acute infarct. The ventricles are within limits and midline. The forde-white differentiation appears preserved. Very small air-fluid level asymmetrically smaller/hypoplastic left maxillary sinus. The other visualized paranasal sinuses, mastoids and orbits appear within limits. The left frontal sinus is non pneumatized. Suggestion of possible periapical lucencies left maxillary partially imaged molar axial 1. CT/Brain/Head without Contrast IMPRESSION: No intracranial hemorrhage, mass effect or CT evidence of large vascular territ ory acute infarct. Very small air-fluid level asymmetrically smaller/hypoplastic left maxillary si nus, possible sinusitis. Suggestion of possible periapical lucencies left maxillary partially imaged mol ar axial 1. Reading Location: [id number]
--- NOTE | 2025-04-23 05:07 | EDS_ITS ---
HPI History of Present Illness Chief Complaint: Allergic Reaction Narrative Narrative: Chief complaint and HPI: Headache, HTN, medication concern. 79-year-old female with past medical history of left breast cancer status post lumpectomy and 5 rounds of radiation, HTN, anxiety presents for evaluation of headache, HTN, medication concern. Patient states that she was recently started on anastrozole for her breast cancer. She started April 21. She takes it at bedtime. She states this evening she developed a headache and she is concerned that the cause maybe this medication as headache was listed as a side effect. She states this caused her to worry. Associated symptom is elevated blood pressure. She states that she was not able to sleep all night secondary to her anxiety. She denies any fever, chills, syncope, lightheadedness, vision changes, chest pain, shortness of breath, abdominal pain, nausea, vomiting. Review of systems: See HPI Medications: As listed on the chart Allergies: As listed on the chart PFSH: Per chart Vital signs: As listed on the chart. Reviewed. Physical exam: Gen: A&O x3, NAD but anxious Head: Normocephalic, atraumatic Eyes: No sclera icterus, conjunctiva clear, PERRL, EOMI ENT: Moist mucous membranes Neck: Trachea midline, No JVD, full range of motion CV: RRR, no murmurs, no peripheral edema Resp: Lungs CTA BL, no w/r/c GI: Abd soft, non-distended, non-tender, no r/r/g Musc: Full ROM, no deformity Skin: Warm, dry Neuro: Alert, oriented, grossly intact, sensation intact Psych: Cooperative, anxious [facility] Medical History (Updated 04/23/25 @ 06:[address] Shaun Pulido-Francisco, ) Encounter for education Osteopenia Cancer Wears glasses Post-menopausal Arthritis Low iron Fatty liver History of hiatal hernia Non-smoker History of pain when walking History of echocardiogram History of stress test GERD (gastroesophageal reflux disease) Vertigo Hyperlipidemia Home Medications ?Medication ?Instructions ?Recorded ?Last Taken ?Type fenofibric acid (choline) 135 mg 135 mg PO DAILY 02/2804/03/25 History capsule,delayed release calcium 600 mg (as carbonate)-vit 1 tab PO DAILY 06/0504/04/25 History D3 10 mcg (400 unit) chewable tablet (Calcium 600 with Vitamin D3) meclizine 25 mg tablet 25 mg PO DAILY PRN vertigo 0 06/05/22 04/04/25 History pantoprazole 40 mg tablet,delayed 40 mg PO DAILY #14 t abs 03/09/23 04/04/25 Rx release Mccoy Revive 2 cap PO DAILY 10/18/24 05/03/25 History ascorbic acid (vitamin C) 500 mg 500 mg PO DAILY 01/2004/04/25 History tablet (C-500) boric acid 600 mg vaginal 600 mg vaginal WE 01/20/25 0 03/30/25 History suppository d-mannose 500 mg capsule 500 mg PO BID 01/20/2504/04 History vitamin E 268 mg (400 unit) capsule 268 mg PO DAILY 04/04/25 History alprazolam 0.5 mg tablet (Xanax) 0.5 mg PO DAILY anxie ty #20 tabs 04/07/25 Unknown Rx sertraline 50 mg tablet (Zoloft) 50 mg PO DAILY #30 ta bs 04/07/25 Unknown Rx anastrozole 1 mg tablet 1 mg PO DAILY #90 tabs 04/21 Unknown Rx hydralazine 25 mg tablet 25 mg PO TID PRN blood press ure 04/21/25 Unknown History amlodipine 5 mg tablet 5 mg PO DAILY 04/23/25 Unkno wn History nystatin 100,000 unit/gram topical 1 applic topical SC N 04/23/25 Unknown History ointment Allergy/AdvReac Type Severity Reaction Status Date / Time sulfamethoxazole (From Allergy Mild Other Verified 04/23/25 04:21 Bactrim) trimethoprim (From Bactrim) Allergy Mild Other Verified 04/23/25 04:21 chlorhexidine (From Allergy Rash Verified 04/23/25 04:21 ChloraPrep Clear) potassium clavulanate (From Allergy Rash Verified 04/23/25 04:21 Augmentin) amoxicillin trihydrate (From AdvReac Rash Verified 04/23/25 04:21 Augmentin) Family History Father Heart disease CVA (cerebral vascular accident) Surgical History Status post partial mastectomy of left breast History of breast lump/mass excision History of surgery on wrist History of surgery on wrist History of esophagogastroduodenoscopy (EGD) Hx of colonoscopy H/O tubal ligation Social History Smoking Status: Never smoker alcohol intake: current details: social substance use type: does not use caffeine: Yes frequency: 1-2 times per week seatbelt use: always do you feel safe at home: Yes additional social history: (Matias) EXAM Physical Exam Const Vital Signs: 04/23/25 04:21 04/23/25 05:17 04/23/25 06:11 Temperature 98.3 F Temperature Source Oral Pulse Rate 75 74 Respiratory Rate 18 12 Blood Pressure 185/88 H 190/81 H 168/86 H Blood Pressure Mean 120 117 113 Pulse Ox 100 94 Oxygen Delivery Method Room Air Room Air 04/23/25 06:16 Temperature 98 F Temperature Source Pulse Rate 71 Respiratory Rate 12 Blood Pressure 175/80 H Blood Pressure Mean 111 Pulse Ox 95 Oxygen Delivery Method MDM MDM MDM Narrative Medical decision making narrative: 79-year-old female with past medical history of left breast cancer status post lumpectomy and 5 rounds of radiation, HTN, anxiety presents for evaluation of headache, HTN, medication concern. Patient developed a headache this evening and is unsure of the cause. Concerned it may be secondary to her new medication However she also endorses increased anxiety and stress as she recently lost her . She states she has been more hypertensive this evening and has not slept all night. She denies any chest pain or shortness of breath. Denies acute onset of headache reaching maximal intensity in under one hour. This is neither the worst headache that they have ever experienced, nor was the onset timed with exertional activity or trauma. Patient has not experienced any fever, unusual neck pain or stiffness, syncope, or near syncope. She denies any numbness, tingling, or weakness of the extremities. They also deny personal history of intracranial hemorrhage, aneurysm, or AV malformation. Differential diagnosis includes but is not limited to hypertension urgency, hypertensive emergency, te nsion headache, anxiety reaction. Suspect less likely intracranial abnormality however given her history of cancer will get CT of the brain to assess. Exam is not consistent with SAH. NS bolus, Tylenol, Ativan ordered for symptoms. Patient is hypertensive here with SBP in the 180s. Will see if this resolves with treatment of the headache as well as anxiety. HTN workup ordered. EKG and chest x-ray reviewed see below. CBC without leukocytosis. Patient has baseline anemia. BMP shows baseline renal insufficiency. Troponin unremarkable. Patient not having chest pain therefore I do not think delta is needed. CT of the brain shows no acute intracranial abnormality. Patient has possible sinusitis however this does not correlate clinically, will not treat. On reevaluation, patient's headache has resolved. Her blood pressures proved to 160/86. Her anxiety has improved. At this point in time patient's headache is multifactorial. May be secondary to anxiety/stress, medication side effect, hypertension. Patient confirmed understand the plan. She was told to monitor her blood pressure. Assess to see if she develops another headache with the medication. Follow-up with PCP. She confirmed understanding of plan. Patient stable to discharge home. EKG: Interpreted by me/EM physician: EKG shows normal sinus rhythm without any ST elevation. Heart rate 62. Diagnostic: Interpreted by me/EM physician: Chest x-ray without pneumonia, effusion, cardiomegaly, pneumothorax. Radiology in agreement Impression: 1. Headache 2. HTN with history of HTN 3. Concern for medication side effect 4. Anxiety Lab Data Labs: Laboratory Results - last 24 hr 04/23/25 05:09 WBC 5.9 RBC 4.50 Hgb 11.4 L Hct 36.7 L MCV 81.6 MCH 25.3 L MCHC 31.1 L RDW Std Deviation 45.6 H RDW Coeff of Kimi 15.4 H Plt Count 375 MPV 9.1 Immature Gran % (Auto) 0.300 Neut % (Auto) 63.8 Lymph % (Auto) 24.3 [place] % (Auto) 9.1 Eos % (Auto) 1.5 Baso % (Auto) 1.0 Absolute Neuts (auto) 3.8 Absolute Lymphs (auto) 1.44 Nucleated RBC % 0 Sodium 140 Potassium 3.7 Chloride 103 Carbon Dioxide 24.3 Anion Gap 12 BUN 21 H Creatinine 1.21 H Estim Creat Clear Calc 37.26 L Est GFR (MDRD) Non-Af 46 L BUN/Creatinine Ratio 17.4 Glucose 107 H Calcium 9.6 Troponin T High Sens 11 D Radiography Diagnostic Testing: Clinical Impression(s) from Imaging Studies Brain CT 04/23/25 04:52 IMPRESSION: No intracranial hemorrhage, mass effect or CT evidence of large vascular territory acute infarct. Very small air-fluid level asymmetrically smaller/hypoplastic left maxillary sinus, possible sinusitis. Suggestion of possible periapical lucencies left maxillary partially imaged molar axial 1. Reading Location: [facility] Chest X-Ray 04/23/25 05:37 IMPRESSION: No evidence of acute disease. Reading Location: [facility] Discharge Plan Triage Chief Complaint: Allergic Reaction ED Provider: Shaun Noriega Dx/Rx/DC Orders Clinical Impression: Hypertension, Headache, Anxiety Instructions: Anxiety Disorders Tx, Understanding Headache Pain, ED Hypertension, Established Prescriptions: No Action meclizine 25 mg tablet 25 mg PO DAILY PRN (Reason: vertigo) Calcium 600 with Vitamin D3 600 mg-10 mcg (400 unit) tablet,chewable 1 tab PO DAILY Mccoy Revive 2 cap PO DAILY hydralazine 25 mg tablet 25 mg PO TID PRN (Reason: blood pressure) anastrozole 1 mg tablet 1 mg PO DAILY Qty: 90 3RF fenofibric acid (choline) 135 mg capsule,delayed release(DR/EC) 135 mg PO DAILY Patient Comments: Take 1 Capsule by mouth daily pantoprazole 40 mg tablet,delayed release (DR/EC) 40 mg PO DAILY Qty: 14 0RF sertraline [Zoloft] 50 mg tablet 50 mg PO DAILY Qty: 30 0RF alprazolam [Xanax] 0.5 mg tablet 0.5 mg PO DAILY Qty: 20 0RF nystatin 100,000 unit/gram ointment 1 applic topical PRN amlodipine 5 mg tablet 5 mg PO DAILY d-mannose 500 mg capsule 500 mg PO BID boric acid 600 mg suppository 600 mg vaginal WE vitamin E 268 mg (400 unit) capsule 268 mg PO DAILY ascorbic acid (vitamin C) [C-500] 500 mg tablet 500 mg PO DAILY Primary Care Provider: Kiana Chaudhary Referrals: Kiana Chaudhary NP-C [Primary Care Provider] - 3-5 Days Activity Restrictions/Additional Instructions: Follow-up with primary care physician. Return back to the ED if symptoms change or worsen. Monitor your blood pressure at home. You received Tylenol here in t emergency department. No Tylenol for 6 hours. Print Language: Thai Disposition Disposition: Home, Self Care
[2025-04-23] MEDS: 0.9% Normal Saline (1000mL) 1,000 ML 1000 ML IV (05:13)
[2025-04-23] MEDS: Acetaminophen 500 MG Tablet 1000 MG PO (05:13)
[2025-04-23] MEDS: Lorazepam 2 MG/ML WCH Syringe 0.5 MG IV (05:14)
[2025-04-23 05:17] VITALS: BP 190/81; PULSE 74; RESP 12; O2SAT 94
[2025-04-23 05:24] LABS: Absolute Lymphocyte Count 1.44 X10^3/uL (0.83-4.51); Absolute Neutrophil Count 3.8 X10^3/uL (2.0-7.7); Basophil# 0.06 X10^3/uL; Eosinophil# 0.09 X10^3/uL; Eosinophils% 1.5 % (0-5); Hematocrit 36.7 % (37-47); Hemoglobin 11.4 g/dL (12.0-15.0); Lymphocyte # 1.44 X10^3/ul (0.83-4.51); Lymphocyte % 24.3 % (19-41); Mean Corp Hgb Conc 31.1 g/dL (32-36); Mean Corpuscular Hgb 25.3 pg (27.0-32.0); Mean Corpuscular Volume 81.6 fL (81-99); Mean Platelet Vol. 9.1 fl (6.2-12.0); Monocyte# 0.54 X10^3/uL; Monocyte% 9.1 % (0-10); NRBC Flagged by Analyzer 0 % (0-5); Neutrophil # 3.77 X10^3/uL (2.7-7.7); Neutrophil % 63.8 % (47-70); Platelet Count 375 K/mm3 (150-450); RBC Distribution Width CV 15.4 % (11.6-14.6); RBC Distribution Width SD 45.6 fl (35.1-43.9); White Blood Count 5.9 K/mm3 (4.4-11.0)
--- NOTE | 2025-04-23 05:37 | RAD_ITS ---
PROCEDURE: CHEST PA AND LATERAL 04/23/2025 REASON FOR EXAM: HTN TECHNIQUE: Frontal and lateral views of the chest. COMPARISON: 04/04/2025 FINDINGS: The lungs appear clear. Pulmonary vascularity appears within limits. No pleural effusion. The cardiac and mediastinal contours appear within limits. Left-sided surgical clips again seen. Mild leftward thoracolumbar curvature again seen. Thoracic flowing osteophyte formation, DISH, again noted. RAD/Chest PA and Lateral IMPRESSION: No evidence of acute disease. Reading Location: [id number]
[2025-04-23 05:43] LABS: Anion Gap 12 (5-15); BUN 21 mg/dL (4-19); BUN/Creat Ratio 17.4 RATIO (10-20); Calcium,Total 9.6 mg/dL (7.6-11.0); Carbon Dioxide 24.3 mmol/L (21.0-32.0); Chloride 103 mmol/L (98-108); Creatinine, Serum 1.21 mg/dL (0.70-1.20); EST Glomerular Filtration Rate 46 (>60); Estimated Creatinine Clearance 37.26 ml/min (50-250); Glucose 107 mg/dL (70-99); Potassium 3.7 mmol/L (3.3-5.1); Sodium Level 140 mmol/L (133-145); Troponin T High Sensitivity 11 ng/L (<=14)
[2025-04-23 06:11] VITALS: BP 168/86
[2025-04-23 06:16] VITALS: BP 175/80; PULSE 71; RESP 12; TEMP 36.6; O2SAT 95
== END 2025-04-23 06:21 | disposition home or self-care (01) ==
PROVIDERS: Emergency Provider Surgery; PCP Nurse Practitioner Family; Visit Provider Surgery
DX: R51.9 Headache, unspecified (principal); C50.912 Malignant neoplasm of unspecified site of left female breast; Z63.4 Disappearance and death of family member; D64.9 Anemia, unspecified; N28.9 Disorder of kidney and ureter, unspecified; I10 Essential (primary) hypertension; F41.9 Anxiety disorder, unspecified; K21.9 Gastro-esophageal reflux disease without esophagitis; E78.5 Hyperlipidemia, unspecified; M85.80 Other specified disorders of bone density and structure, unspecified site; Z79.899 Other long term (current) drug therapy
CPT/HCPCS: 70450; 71046; 80048; 84484; 85025; 93005; 96361; 96374; 99285; A4216

== ENCOUNTER → 2025-04-26 | Outpatient (CLI) | payer MEDICARE, SELFPAY ==
[2025-04-26 12:02] LABS: Ferritin 15 ng/mL (22-378); Vitamin B12 323 pg/mL (180-914)
[2025-04-26 13:53] LABS: Iron 66 ug/dL (50-170); Iron Binding Capacity,Unsat 418 ug/dL (228-428)
[2025-04-26 14:10] LABS: Iron Binding Capacity,Total 484 ug/dL (250-450); PERCENT IRON SATURATION 13.6 % (13-59)
== END | disposition home or self-care (01) ==
LOC: LAB 09:36
PROVIDERS: PCP Nurse Practitioner Family; Referring Provider Nurse Practitioner Family; Visit Provider Nurse Practitioner Family
DX: D50.9 Iron deficiency anemia, unspecified (principal)
CPT/HCPCS: 36415; 82607; 82728; 83540; 83550

== ENCOUNTER → 2025-04-29 | Outpatient (CLI) | payer MEDICARE, SELFPAY ==
[2025-04-29 18:28] LABS: Folates, Serum 8.95 ng/mL (4.60-34.80)
== END | disposition home or self-care (01) ==
LOC: LAB 16:22
PROVIDERS: PCP Nurse Practitioner Family; Referring Provider Nurse Practitioner Family; Visit Provider Nurse Practitioner Family
DX: D50.9 Iron deficiency anemia, unspecified (principal)
CPT/HCPCS: 82746

== ENCOUNTER → 2025-05-23 | Outpatient (CLI) | payer MEDICARE, SELFPAY ==
--- NOTE | 2025-05-23 12:37 | STEWCON_ITS ---
Reason For Study Reason For Study: Chest Pain Stress Results Protocol: Venkat Protocol WITH DEFINITY Maximum Predicted HR: 142 bpm Target HR: 121 bpm % Maximum Predicted HR: 85 % DurationHeart Rate Stage (mm:ss) (bpm) BP Comment Baseline 73 138/86Patient denies chest pain Stage 1 3:00 105 130/72Mild dyspnea. Denies chest pain. Stage 2 2:59 121 138/82Mild to moderate dyspnea. Denies chest pain. Recovery 83 112/80Patient denies chest pain, 2ml total Definity used per protocol. Stress Duration: 5:59 mm:ss Maximum Stress HR: 121 bpm Baseline Echocardiogram Findings Stress Echo Wall motion Data Resting WM Intermediate WM Stress WM ECHO/Stress Test Echo W/Contrast Interpretation Summary Exercise stress echo. 79-year-old lady with a history of hypertension. Resting EKG demonstrates sinus rhythm with a rate of 73 bpm premature ventricul ar complexes noted resting blood pressure is 138/86 mmHg. Patient exercised according to regular Venkat protocol for total duration of 6 minutes the maximum heart rate attained was 122 bpm which was 85% of max impacted heart rate the maximum workload was 7 metabolic equivalents. At rest there were no ST or T wave changes noted suggest ischemia and at peak exer cise nonspecific ST changes were noted. Did not meet the criteria for ischemia. Occasional premature ventricular comple x was noted. The peak blood pressure was 158/82 mmHg which was a normal blood pressure response to exercise. Stress echocardiogram. The resting echocardiogram demonstrated an ejection fraction of approximately 6 0%. With exercise there was thickening of all powell reduction of the ventricular cavity size peaking at 70% no wall motio n abnormalities were present. The images were performed with and without Definity enhancement. Conclusion: Stress echocardiogram with no EKG or echocardiographic evidence of ischemia pre sent at a moderate workload. Ordering Physician: Kinaa Chaudhary Referring Physician: Kiana Chaudhary Performed By: Karey Beaulieu RCS
== END | disposition home or self-care (01) ==
LOC: CVS 12:35
PROVIDERS: PCP Nurse Practitioner Family; Referring Provider Nurse Practitioner Family; Visit Provider Nurse Practitioner Family
DX: R07.9 Chest pain, unspecified (principal)
CPT/HCPCS: 93017; 93350; Q9957; A4216; C8928

== ENCOUNTER → 2025-08-11 | Outpatient (CLI) | payer MEDICARE, SELFPAY ==
[2025-08-11 08:29] LABS: Albumin, Serum 4.2 g/dL (3.4-4.8); BUN 19 mg/dL (4-19); BUN/Creat Ratio 15.3 RATIO (10-20); Glucose 106 mg/dL (70-99)
[2025-08-11 08:30] LABS: AST(SGOT) 21 U/L (<=31); Alanine Aminotransfer ALT/SGPT 13 U/L (<=34); Alkaline Phosphatase 44 U/L (35-104); Anion Gap 11 (5-15); Calcium,Total 9.5 mg/dL (7.6-11.0); Carbon Dioxide 26.5 mmol/L (21.0-32.0); Chloride 103 mmol/L (98-108); Cholesterol 168 mg/dL (<=200); Globulin 3.1 g/dL (2.2-4.2); Low Density Lipoprotein Calc. 81 mg/dL; Potassium 4.2 mmol/L (3.3-5.1); Triglycerides 149 mg/dL; Very Low Density Lipoprotein 30 mg/dL (5-40); cholesterol:hdl ratio screen 2.95
[2025-08-11 10:59] LABS: Color, Urine Yellow (Yellow); Glucose, Dipstick Normal (Normal); Ketone-Dipstick Negative (Negative); Leukocyte Esterase-Dipstick 500 /ul (Negative); Nitrite-Dipstick Negative (Negative); Occult Blood-Urine Negative /ul (Negative); Protein-Dipstick 15 mg/dl (Negative); Specific Gravity, Urine 1.010 (1.002-1.030); Urine Bilirubin Dipstick Negative (Negative)
[2025-08-11 11:24] LABS: Creatinine, Urine (random) 100.00 mg/dL (28.00-217.00); Microalbumin,Random Urine < 12.0 mg/L (<20 mg/L)
== END | disposition home or self-care (01) ==
PROVIDERS: PCP Nurse Practitioner Family; Referring Provider Nurse Practitioner Family; Visit Provider Nurse Practitioner Family
DX: I12.9 Hypertensive chronic kidney disease with stage 1 through stage 4 chronic kidney disease, or unspecified chronic kidney disease (principal); N18.31 Chronic kidney disease, stage 3a; R73.01 Impaired fasting glucose; E78.5 Hyperlipidemia, unspecified
CPT/HCPCS: 36415; 80053; 80061; 81002; 82043; 82570; 83036; 84443

== ENCOUNTER 2025-10-07 16:55 | Emergency (ER) | payer MEDICARE, SELFPAY ==
[2025-10-07 16:55] VITALS: BP 151/72; PULSE 84; RESP 17; TEMP 36.7; O2SAT 92; BMI 32.4
[2025-10-07 18:47] VITALS: BP 148/80; PULSE 84; RESP 18; O2SAT 98
--- NOTE | 2025-10-07 19:37 | CT_ITS ---
PROCEDURE: ABDOMEN/PELVIS W IV CONT ONLY 10/07/2025 REASON FOR EXAM: CONSTIPATION TECHNIQUE: Procedure Code: [id number] Modality: CT Procedure: ABDOMEN/PELVIS W IV CONT ONLY Coronal and Sagittal reconstruction series were provided. CONTRAST: 100 cc of Isovue 370. One or more dose reduction techniques were used (e.g., Automated exposure control, adjustment of the mA and/or kV according to patient size, use of iterative reconstruction technique. COMPARISON: CT abdomen and pelvis 05/15/2023 FINDINGS: Lung bases: Unremarkable. Liver: Normal size. No mass. Gallbladder: Unremarkable. No biliary ductal dilatation. Spleen: Normal size. Pancreas: Normal size without evidence of mass surrounding inflammation or ductal dilation. Adrenals: Unremarkable. Kidneys: Left renal cyst measures 6.4 x 6.3 x 6.0 cm. No renal calculi or hydronephrosis. Bladder: Unremarkable. Reproductive Organs: Normal uterine size and contour. Ovaries are unremarkable. A vaginal ring is present. Bowel: Colonic diverticulosis without diverticulitis. No bowel obstruction. Appendix: The appendix is not identified. There is no inflammatory process identified in the right lower quadrant to suggest appendicitis. Lymph nodes: Unremarkable. Vasculature: The abdominal aorta and IVC are normal. Peritoneum / Retroperitoneum: No free fluid or air. Bones: Mild degenerate changes of the spine. No acute fractures. CT/Abdomen/Pelvis W IV Cont ONLY IMPRESSION: 1. No acute findings in the abdomen or pelvis. 2. Left renal cyst measures 6.4 cm. Reading Location: [facility]
--- OUTSIDE RECORDS SUMMARY | 2025-10-07 19:50 | XMS RPT_ITS | CCD ---
Author Organization [facility] CliniSymd Care Team Providers Care Backside Grinder Name Role Phone JyothimaliBelem cagle E Unavailable Katherine Abdi Unavailable Fast, Idalia A Unavailable Kamla Valentino Unavailable Unavailable Agnieszka Rae Unavailable Unavailable Slarb, Citlali Unavailable Unavailable Daniel, Dorie Unavailable Unavailable Unavailable Unavailable Belem Hagen Unavailable Katherine Abdi Unavailable Fast, Idalia A Unavailable Kamla Valentino Unavailable Unavailable Slarb, Citlali Unavailable Unavailable Fito Raen L Unavailable Unavailable Daniel, Dorie Unavailable Unavailable Unavailable Unavailable Afshin Guerrero Unavailable Unavailable Agnieszka Rae Unavailable Unavailable Marry Marroquin Unavailable Unavailable Unavailable Unavailable Lila Rodriguezin Unavailable Unavailable Afshin Sanchez Unavailable Unavailable Omayra Parham Unavailable Cibessy GIBBSBelem E Unavailable Katherine Abdi MD Unavailable Fast DO, Idalia A Unavailable Afshin Sanchez LPN Unavailable Unavailable Cara PARIKH Marry Unavailable Unavailable Agnieszka Rae RN Unavailable Unavailable Slarb DEPUTY BAILIFF, Citlali Unavailable Unavailable Unavailable Unavailable Dionna Carcamo Unavailable Samantha Goodman MA Unavailable Unavailable Ciesa HARNESS INSTALLER, HARNESS INSTALLER-C [facility] Primary Care Provider Kema HARNESS INSTALLER, HARNESS INSTALLER-C [facility] Referring Provider [phone] Jluis HARNESS INSTALLER, HARNESS INSTALLER-C Rayna Attending Provider Kema Belem Unavailable Fast DO, Idalia A Unavailable Cimalia Belem Unavailable Ciesa HARNESS INSTALLER, HARNESS INSTALLER-C [facility] Primary Care Provider Ciesa HARNESS INSTALLER, HARNESS INSTALLER-C [facility] Referring Provider [phone] Jluis HARNESS INSTALLER, HARNESS INSTALLER-C Rayna Attending Provider [phone] Rayshawn Chaudhary CNP Unavailable Rayshawn Chaudhary CNP Unavailable [phone] Belem Hagen Unavailable Ciesa HARNESS INSTALLER, HARNESS INSTALLER-C [facility] Primary Care Provider Ciesa HARNESS INSTALLER, HARNESS INSTALLER-C [facility] Referring Provider [phone] Ashkum HARNESS INSTALLER, HARNESS INSTALLER-C Rayna Attending Provider [phone] Brinda BOX, Kayela Unavailable Unavailable Dione DO, Omayra Unavailable [phone] ALCIDES Chaudhary-C Rayshawn Primary Care Provider [phone] ALCIDES Chaudhary-C Rayshawn Referring Provider Jluis HARNESS INSTALLER, HARNESS INSTALLER-C Rayna Attending Provider [phone] Rayshawn Chaudhary E Unavailable Bilderback Jamarcus Unavailable Unavailabl Jamarcus Fan Attending Unavailgalindo Chaudhary, Ms. Bruno E Primary Care Unavailabl e Rayshawn Chaudhary CNP Attending Unavailable Belem Hagen Referring Unavailable Rayshawn Chaudhary CNP Consulting Unavailable Dr. Luis Carlos Zuluaga Attending Provider Maurice GIBBS Rayshawn Unavailable Maurice GIBBS, Rayshawn Unavailable [place] ROCHA MD, Katherine Carey Unavailable Dionna Carcamo Unavailable Fast DO, Idalia A Unavailable Slarb DEPUTY BAILIFF, Citlali Unavailable Unavailable Daniel DUMONTN, Afshin Unavailable Unavailable Brinda BOX, Kayela Unavailable Unavailable Cara DUMONTN, Marry Unavailable Unavailable Butch RN, Agnieszka Soria Unavailable Unavailable Unavailable Unavailable Dr. Dylan Zhou Unavailable Dione DO, Omayra Unavailable [place]ston DEPUTY BAILIFF, Dao Unavailable Unavailable Tip LIGHT BULB REPLACER, Fiorella Unavailable Unavailable Maurice, HARNESS INSTALLER-C Rayshawn Primary Care Provider Maurice, HARNESS INSTALLER-C Rayshawn Referring Provider Jluis HARNESS INSTALLER, HARNESS INSTALLER-C Rayna Attending Provider Ray DEPUTY BAILIFF, MAXIMILIAN Unavailable Unavailable Maurice, HARNESS INSTALLER-C Rayshawn Primary Care Provider Maurice, HARNESS INSTALLER-C Rayshawn Referring Provider Jluis HARNESS INSTALLER, HARNESS INSTALLER-C Rayna Attending Provider Maurice HARNESS INSTALLER-C, Rayshawn Primary Care Provider Maurice HARNESS INSTALLER-C, Rayshawn Referring Provider Jluis HARNESS INSTALLER-C, Rayna Attending Provider Jluis HARNESS INSTALLER-C, Rayna Referring Provider Casi GARZA, Dr. Otero Attending Provider [phone] Casi GARZA, Dr. Otero Referring Provider [phone] Casi GARZA, Dr. Otero Other Provider Zan GARZA, Dr. Aldridge Attending Provider Demetra Lorenzo Attending Provider Unavailable Dr. Ximena Stanley MD Attending Provider Dr. Mehul Borja DO Attending Provider Dr. Ximena Stanley MD Referring Provider Dr. Margoth Villalpando DO Emergency Provider [phone] Wesly Leiva DO Emergency Provider [phone] Dr. Margoth Villalpando DO Attending Provider Dr. Ximena Stanley MD Referring Provider Dr. Manoj Mehta MD Emergency Provider Dr. Wesly Leiva DO Attending Provider Tyson GARZA, Dr. Aranda Attending Provider Lizeth GARZA, Dr. Bueno Referring Provider Roel HARNESS INSTALLER-C, Frances Attending Provider [facility] Dr. Dunn Attending Provider [facility] , Dr. Dunn Emergency Provider Maurice HARNESS INSTALLER-C, Rayshawn Attending Provider Dr. Mehul Borja DO Referring Provider Maurice HARNESS INSTALLER-C, Rayshawn Primary Care Provider Casi GARZA, Dr. Otero Attending Provider [phone] Maurice HARNESS INSTALLER-C, Rayshawn Referring Provider Ashkum HARNESS INSTALLER-C, Rayna Attending Provider Maurice HARNESS INSTALLER-C, Rayshawn Primary Care Provider Maurice HARNESS INSTALLER-C, Rayshawn Referring Provider Dr. Branden Lance MD Attending Provider Dr. Branden Lance MD Referring Provider Zan GARZA, Dr. Aldridge Attending Provider Sparkle GARZA, Dr. Alvares Attending Provider Maurice HARNESS INSTALLER-C, Rayshawn Primary Care Provider Maurice HARNESS INSTALLER-C, Rayshawn Referring Provider Sparkle GARZA, Dr. Alvares Attending Provider Dr. Ximena Stanley MD Attending Provider Dr. Ximena Stanley MD Referring Provider Maurice HARNESS INSTALLER-C, Rayshawn Primary Care Provider Dr. Mehul Borja DO Attending Provider Maurice HARNESS INSTALLER-C, Rayshawn Referring Provider MAURICE APPLICATIONS PROGRAMMER ANALYST-CRIMINAL JUSTICE LAWYER, RAYSHAWN Primary Care Physician Maurice HARNESS INSTALLER-C, Rayshawn Primary Care Physician Maurice HARNESS INSTALLER-C, Rayshawn Attending Physician Maurice HARNESS INSTALLER-C, Rayshawn Referring Provider Zan GARZA, Dr. Aldridge Attending Physician Dr. Mehul Borja DO Attending Physician Sparkle GARZA, Dr. Alvares Attending Physician Jluis HARNESS INSTALLER-C, Rayna Attending Physician Roel HARNESS INSTALLER-C, Frances Attending Physician Lizeth GARZA, Dr. Bueno Attending Physician Luis Carlos Zuluaga Attending Unavailable Maurice, Rayshawn Primary Care Unavailable Maurice, Rayshawn Attending Unavailable Maurice, Rayshawn Referring Unavailable Maurice, Rayshawn Primary Care Unavailable Mehul Borja Attending Unavailable Maurice, Rayshawn Referring Unavailable Maurice, Rayshawn Primary Care Unavailable Mehul Borja Attending Unavailable Maurice, Rayshawn Primary Care Unavailable Huong, Mehul Referring Unavailable Maurice, Rayshawn Primary Care Unavailable Wesly Leiva Attending Unavailable Ximena Stanley Attending Unavailable Ximena Stanley Referring Unavailable Maurice, Rayshawn Primary Care Unavailable Maurice, Rayshawn Primary Care Unavailable Akiko Henry Attending Unavailable Akiko Henry Referring Unavailable Branden Lance Attending Unavailable Maurice, Rayshawn Primary Care Unavailable Branden Lance Referring Unavailable Mehul Borja Attending Unavailable Amurice, Rayshawn Primary Care Unavailable Mehul Borja Referring Unavailable Mehul Borja Attending Unavailable Maurice, Rayshawn Primary Care Unavailable Huong Mehul Referring Unavailable Luis Carlos Zuluaga Attending Unavailable Branden Lance Referring Unavailable Maurice, Rayshawn Primary Care Unavailable Demetra Lorenzo Attending Unavailable Maurice, Rayshawn Primary Care Unavailable Maurice, Rayshawn Primary Care Unavailable Huong Mehul Referring Unavailable Mehul Borja Attending Unavailable Maurice, Rayshawn Primary Care Unavailable Margoth Villalpando Attending Unavailable Maurice, Rayshawn Attending Unavailable Maurice, Rayshawn Referring Unavailable Maurice, Rayshawn Primary Care Unavailable Jluis HARNESS INSTALLER, Rayna Attending Unavailable Ashkum HARNESS INSTALLER, Rayna Referring Unavailable Maurice, Rayshawn Primary Care Unavailable Ashkum HARNESS INSTALLER, Rayna Attending Unavailable Ashkum HARNESS INSTALLER, Rayna Referring Unavailable Maurice, Rayshawn Primary Care Unavailable Ashkum HARNESS INSTALLER, Rayna Attending Unavailable Maurice, Rayshawn Referring Unavailable Maurice, Rayshawn Primary Care Unavailable Ashkum HARNESS INSTALLER, Rayna Attending Unavailable Maurice, Rayshawn Referring Unavailable Maurice, Rayshawn Primary Care Unavailable Branden Lance Attending Unavailable Maurice, Rayshawn Referring Unavailable Maurice, Rayshawn Primary Care Unavailable Ximena Stanley Attending Unavailable BaljitabrettaBranden Referring Unavailable Maurice, Rayshawn Primary Care Unavailable Maurice, Rayshawn Attending Unavailable Maurice, Rayshawn Referring Unavailable Maurice, Rayshawn Primary Care Unavailable Branden Lance Attending Unavailable Maurice, Rayshawn Primary Care Unavailable Branden Lance Referring Unavailable Maurice, Rayshawn Primary Care Unavailable Shaun Noriega Attending Unavailabl bhargav Sevilla HARNESS INSTALLER, Frances Attending Unavailable Maurice, Rayshawn Referring Unavailable Maurice, Rayshawn Primary Care Unavailable Branden Lance Attending Unavailable Maurice, Rayshawn Referring Unavailable Maurice, Rayshawn Primary Care Unavailable Ashkum HARNESS INSTALLER, Rayna Attending Unavailable Maurice, Rayshawn Referring Unavailable Maurice, Rayshawn Primary Care Unavailable Mehul Borja Attending Unavailable Maurice, Rayshawn Referring Unavailable Maurice, Rayshawn Primary Care Unavailable Ashkum HARNESS INSTALLER, Rayna Attending Unavailable Maurice, Rayshawn Referring Unavailable Maurice, Rayshawn Primary Care Unavailable Roel HARNESS INSTALLER, Frances Attending Unavailable Maurice, Rayshawn Primary Care Unavailable Maurice, Rayshawn Referring Unavailable Dia Villagran Attending Unavailable Maurice, Rayshawn Referring Unavailable Maurice, Rayshawn Primary Care Unavailable Mehul Borja Attending Unavailable Maurice, Rayshawn Referring Unavailable Maurice, Rayshawn Primary Care Unavailable Branden Lance Attending Unavailable Maurice, Rayshawn Referring Unavailable Maurice, Rayshawn Primary Care Unavailable Mehul Borja Attending Unavailable Maurice, Rayshawn Primary Care Unavailable Mehul Borja Referring Unavailable Branden Lance Attending Unavailable Branden Lance Referring Unavailable Maurice, Rayshawn Primary Care Unavailable Branden Lance Consulting Unavailable Branden Lance Attending Unavailable Branden Lance Referring Unavailable Maurice, Rayshawn Primary Care Unavailable Branden Lance Consulting Unavailable Mehul Borja Attending Unavailable Maurice, Rayshawn Primary Care Unavailable Mehul Borja Referring Unavailable Mehul Borja Attending Unavailable Maurice, Rayshawn Primary Care Unavailable Maurice, Rayshawn Primary Care Unavailable Manoj Mehta Attending Unavailable Maurice, Rayshawn Attending Unavailable Maurice, Rayshawn Primary Care Unavailable Maurice, Rayshawn Referring Unavailable ORESTES GARZA, DR VERONICA Cagle Attending Unavailab le MAURICE APPLICATIONS PROGRAMMER ANALYST-CRIMINAL JUSTICE LAWYER, RAYSHAWN Primary Care Unavail able ORESTES GARZA, DR VERONICA Cagle Attending Unavailab le MAURICE APPLICATIONS PROGRAMMER ANALYST-CRIMINAL JUSTICE LAWYER, RAYSHAWN Primary Care Unavail tyesha CARLISLE MD, DR VERONICA Cagle Admitting Unavailab sp CARLISLE MD, DR VERONICA Cagle Attending Unavailab le MAURICE APPLICATIONS PROGRAMMER ANALYST-CRIMINAL JUSTICE LAWYER, RAYSHAWN Primary Care Unavail able ELBA APPLICATIONS PROGRAMMER ANALYST-CRIMINAL JUSTICE LAWYER, BRITTANY Soria Consulting Unavai lable Allergies Allergy Classification Reported Allergen(s) Allergy Type Date of Onset Reaction(s) Facility Amoxicillin / Clavulanate (2 sources) Amoxicillin / Clavulanate; Translations: [Augmentin *PENICILLINS*] Drug Allergy Rash [facility]; [facility] Work Phone: Comment on above: Has been on pcn sinc e then and no troubles since this time. States was on a lot of pcn. Sulfamethoxazole / Trimethoprim (2 sources) Sulfamethoxazole / Trimethoprim; Translations: [Bactrim *ANTI-INFECTIVE AGENTS - MISC.*] Drug Allergy [facility]; [facility] Work Phone: Comment on above: rash and cp (20 sources) Amoxicillin / Clavulanate; Translations: [Augmentin *PENICILLINS*] Drug Allergy Rash [facility] Work Phone: Comment on above: Has been on pcn sinc e then and no troubles since this time. States was on a lot of pcn. (20 sources) Sulfamethoxazole / Trimethoprim; Translations: [Bactrim *ANTI-INFECTIVE AGENTS - MISC.*] Drug Allergy Rash [facility] Work Phone: Comment on above: rash and cp (20 sources) Amoxicillin; Translations: [amoxicillin trihydrate] Drug Allergy 02-29-20 [facility] Comment on above: PT STATES IT WAS A M ILD ITCHINESS IN THE S NO BREATHING PROBLEMS (20 sources) Sulfamethoxazole Drug Allergy 02-29-20 Other [facility] (20 sources) Trimethoprim Drug Allergy 02-29-20 Other [facility] (20 sources) potassium clavulanate; Translations: [potassium clavulanate] Allergy to substance 02-29-20 [facility] (1 source) Amoxicillin / Clavulanate Drug Allergy Unknown [facility] (1 source) Sulfamethoxazole / Trimethoprim Drug Allergy Unknown [facility] (16 sources) Chlorhexidine Drug Allergy 05-21-20 [facility] (4 sources) Isopropyl Alcohol Drug Allergy 05-21-20 [facility] (3 sources) Sulfonamide; Translations: [sulfa drugs] Drug allergy [facility] (1 source) Chlorhexidine Drug Allergy 09-26-20 [facility] (1 source) Isopropyl Alcohol Drug Allergy 02-16-20 [facility] (1 source) Sulfamethoxazole Drug Allergy 09-26-20 [facility] (1 source) Trimethoprim Drug Allergy 09-26-20 [facility] Medications Current Medications Medication Drug Class(es) Dates Sig (Normalized) Sig (Original) acetaminophen 1000 mg oral tablet (1 source) Start: 09-28-2025 take 1 tablet by mouth once daily Tylenol Dose : 1,000 mg = 2 tab(s), Oral, TID, not to exceed 3000 mg/day, 0 Refill(s) Start Date: 09/28/25 Status: Ordered Medication Dispense Status: Completed Total Allowed Fills: 1 Fills Dispensed: 0 ALPRAZolam 0.5 mg oral tablet (14 sources) Benzodiazepine Start: 08-29-2025 ALPRAZolam 0.5 mg oral tablet Dose : 0.5 mg = 1 tab(s), Oral, qDay, PRN for anxiety, 0 Refill(s) Start Date: 08/29/25 Status: Ordered Medication Dispense Status: Completed Total Allowed Fills: 1 Fills Dispensed: 0 Start: 04-07-2025 take 1 tablet by mouth once da ema amLODIPine 5 mg oral tablet (11 sources) Dihydropyridine Calcium Channel Norman Start: 08-29-2025 amLODIPine 5 mg oral tablet Dose : 5 mg = 1 tab(s), Oral, qDay, # 30 tab(s), 0 Refill(s) Start Date: 08/29/25 Status: Ordered Medication Dispense Status: Completed Quantity: 30.0 Unit: tab(s) Total Allowed Fills: 1 Fills Dispensed: 0 Start: 04-23-2025 take 1 tablet by mouth once da ema anastrozole 1 mg oral tablet (11 sources) Aromatase Inhibitor Start: 08-29-2025 anastrozol e 1 mg oral tablet Dose : 1 mg = 1 tab(s), Oral, Daily, # 30 tab(s), 0 Refill(s) Start Date: 08/29/25 Status: Ordered Medication Dispense Status: Completed Quantity: 30.0 Unit: tab(s) Total Allowed Fills: 1 Fills Dispensed: 0 Start: 04-21-2025 take 1 tablet by mouth once da ema ascorbic acid 500 mg oral tablet (20 sources) Vitamin C Start: 01-20-2025 take 1 tablet by yosi once daily Start: 12-17-2017 End: 07-13-2018 Ascorbic Acid (Vitamin C) 50 0 mg capsule Discontinued mg PO 0 December 17, 2017 1:00am July 13, 2018 9:06am Start: 12-17-2017 End: 07-13-2018 Ascorbic Acid (Vitamin C) Di scontinued MG PO December 17, 2017 12:00am July 13, 2018 8:06am Boric Acid 600 mg suppositor y (12 sources) Start: 01-20-2025 Start: 01-20-2025 Boric Acid 600 mg suppository Active 600 mg VAGINAL WE January 20, 2025 1:00am calcium carbonate 1500 mg / cholecalciferol 800 unt chewable tablet (20 sources) Vitamin D Start: 06-05-2022 Start: 06-05-2022 Calcium Carbon ate-Vitamin D3 (Calcium 600 With Vitamin D3) 600 mg-10 mcg (400 unit) tablet,chewable Active TABLET PO June 04, 2022 11:00pm Start: 02-19-2021 End: 03-21-2021 Start: 02-19-2021 End: 03-21-2021 take 1 tablet by mouth once daily Calcium 600/Vitamin D 600-400 MG-UNIT Oral Tablet 1 (one) Tablet daily for 30 days Quantity: 30 {Tablet} Refills: 0 Ordered: 15-Apr-2021 Belem Hagen Start : 19-Feb-2021 End : 21-Mar-2021 Inactive Start: 02-19-2021 End: 03-21-2021 take 1 tablet by mouth once daily Calcium 600/Vitamin D 600-400 MG-UNIT Oral Tablet 1 (one) Tablet daily for 30 days Quantity: 30 {Tablet} Refills: 0 Ordered: 15-Apr-2021 Belem Hagen Start : 19-Feb-2021 End : 21-Mar-2021 Inactive calcium citrate 1190 mg / cholecalciferol 0.005 mg oral tablet (3 sources) Vitamin D Start: 08-29-2025 take 1 tablet by mouth once daily calcium (as carbonate and lactate)-vitamin D 200 mg-6.25 mcg oral tablet Dose = 1 tab(s), Oral, qDay, # 100 tab(s), 0 Refill(s) Start Date: 08/29/25 Status: Ordered Medication Dispense Status: Completed Quantity: 100.0 Unit: tab(s) Total Allowed Fills: 1 Fills Dispensed: 0 D-Mannose (20 sources) Start: 01-20-2025 take 1 capsule by mouth twice daily Start: 01-20-2025 take 1 capsule by [facility] twice daily D-Mannose 500 mg capsule Active 500 mg PO TWICE A DAY January 20, 2025 1:00am Start: 06-05-2022 End: 04-20-2024 take 1 capsule by mouth once D-Mannose 500 mg capsule Discontinued mg PO June 05, 2022 12:00am April 20, 2024 10:28am Start: 06-05-2022 take 1 mg by mouth once D-Kimbrough ose Active MG PO June 05, 2022 12:00am Start: 06-05-2022 take 1 mg by mouth once D-Kimbrough ose Active MG PO June 04, 2022 11:00pm SENOKOT-S (1 source) Start: 09-28-2025 Senokot S Dose = 2 tab(s), Oral, BID, Take until first bowel movement, then as needed, 0 Refill(s) Start Date: 09/28/25 Status: Ordered Medication Dispense Status: Completed Total Allowed Fills: 1 Fills Dispensed: 0 fenofibric acid 135 mg delayed release oral capsule (20 sources) Peroxisome Proliferator Receptor alpha Agonist Start: 08-29-2025 fenofibric acid 1 35 mg oral delayed release capsule Dose : 135 mg = 1 cap(s), Oral, Daily, 0 Refill(s) Start Date: 08/29/25 Status: Ordered Medication Dispense Status: Completed Total Allowed Fills: 1 Fills Dispensed: 0 Start: 07-01-2018 take 1 capsule by mouth once d aily glucosamine sulfate 500 mg o ral capsule (20 sources) Start: 08-29-2025 glucosamine 50 0 mg oral capsule Dose : 500 mg = 1 cap(s), Oral, qDay, # 30 cap(s), 0 Refill(s) Start Date: 08/29/25 Status: Ordered Medication Dispense Status: Completed Quantity: 30.0 Unit: cap(s) Total Allowed Fills: 1 Fills Dispensed: 0 Start: 01-05-2019 End: 01-20-2025 take 1 tablet by mouth once daily Glucosamine Hcl 500 mg tablet Discontinued 500 mg PO DAILY January 05, 2019 1:00am January 20, 2025 3:34pm Mccoy Revive (12 sources) Start: 10-18-2024 Start: 10-18-2024 Mccoy Revive Active 2 NMA PO DAILY October 18, 2024 1:00am hydrALAZINE hydrochloride 25 mg oral tablet (11 sources) Arteriolar Vasodilator Start: 08-29-2025 hydrALAZINE 25 mg oral tablet Dose : 25 mg = 1 tab(s), Oral, qDay, PRN Other (see order comments), Take with food, # 90 tab(s), 0 Refill(s) Start Date: 08/29/25 Status: Ordered Medication Dispense Status: Completed Quantity: 90.0 Unit: tab(s) Total Allowed Fills: 1 Fills Dispensed: 0 Start: 04-21-2025 take 1 tablet by mouth three t imes daily as needed meclizine hydrochloride 25 m g oral tablet (20 sources) Antiemetic Start: 08-29-2025 meclizine 25 m g oral tablet Dose : 25 mg = 1 tab(s), Oral, TID, PRN as needed for dizziness, # 30 tab(s), 0 Refill(s) Start Date: 08/29/25 Status: Ordered Medication Dispense Status: Completed Quantity: 30.0 Unit: tab(s) Total Allowed Fills: 1 Fills Dispensed: 0 Start: 05-30-2023 Start: 01-31-2023 Start: 06-05-2022 take 1 tablet by yosi th once daily as needed Start: 05-27-2022 take 1 tablet by yosi th every eight hours as needed Meclizine HCl 25 MG Oral Tablet 1 (one) Tablet q 8 hr prn vertigo for 0 days Quantity: 30 {Tablet} Refills: 1 Ordered: 27-May-2022 Maurice BERNIERayshawn Start : 27-May-2022 Active Start: 03-11-2022 take 1 tablet by yosi th every eight hours as needed Meclizine HCl 25 MG Oral Tablet 1 (one) Tablet q 8 hr prn vertigo for 0 days Quantity: 30 {Tablet} Refills: 1 Ordered: 11-Mar-2022 Hieu Belem JyothiBelem doherty Start : 11-Mar-2022 Active Start: 09-18-2020 take 1 tablet by yosi th every eight hours as needed Meclizine HCl 25 MG Oral Tablet 1 (one) Tablet q 8 hr prn vertigo for 0 days Quantity: 30 {Tablet} Refills: 1 Ordered: 18-Sep-2020 Afshin Sanchez LPN Start : 18-Sep-2020 Active take 1 tablet by yosi th three times daily as needed meclizine 25 mg oral tablet ; 1 tab(s) orally 3 times a day, As Needed Quantity: 0 Refills: 0 Ordered: 13-Mar-2023 Deshawn Medrano Generic Substitution Allowed nitrofurantoin, macrocrystals 25 mg / nitrofurantoin, monohydrate 75 mg oral capsule (20 sources) Nitrofuran Antibacterial Start: 07-26-2025 take 1 capsule by mouth twice daily at mealtime Start: 12-24-2022 End: 12-29-2022 Start: 01-03-2021 End: 01-13-2021 take 1 capsule by mouth twice daily Macrobid 100 MG Oral Capsule 1 (one) Capsule bid for 10 days Quantity: 20 {Capsule} Refills: 0 Ordered: 03-Jan-2021 Omayra Parham DO Start : 03-Jan-2021 End : 13-Jan-2021 Inactive Start: 02-28-2020 End: 03-04-2020 Start: 02-28-2020 End: 03-04-2020 take 1 capsule by mouth every twelve hours at mealtime Nitrofurantoin Monohyd Macro 100 MG Oral Capsule 1 (one) Capsule q12 hr for 5 days Quantity: 10 {Capsule} Refills: 0 Ordered: 28-Feb-2020 Afshin Sanchez LPN Start : 28-Feb-2020 End : 04-Mar-2020 Inactive Comments: with food Start: 12-06-2018 End: 12-11-2018 take 1 capsule by mouth every twelve hours at mealtime Nitrofurantoin Monohyd Macro 100 MG Oral Capsule 1 (one) Capsule q12 hr for 5 days Quantity: 10 {Capsule} Refills: 0 Ordered: 06-Dec-2018 Belem Hagen CNP, CNP, Mary E Start : 06-Dec-2018 End : 11-Dec-2018 Inactive Comments: with food Start: 07-18-2017 End: 07-25-2017 take 1 capsule by mouth twice daily Macrobid 100 MG Oral Capsule 1 (one) Capsule bid for 7 days Quantity: 14 {Capsule} Refills: 0 Ordered: 18-Jul-2017 Belem Hagen CNP, CNP, Mary E Start : 18-Jul-2017 End : 25-Jul-2017 Inactive Comment on above: with food nystatin 100 unt/mg topical ointment (20 sources) Polyene Antifungal Start: 08-29-2025 apply 1 dose topically twice daily as needed nystatin 100,000 units/g topical ointment Apply 1 derrick, Topical, BID, PRN Excoriation, # 15 gram(s), 0 Refill(s), Ointment Start Date: 08/29/25 Status: Ordered Medication Dispense Status: Completed Quantity: 15.0 Unit: g Total Allowed Fills: 1 Fills Dispensed: 0 Start: 07-29-2025 Start: 04-23-2025 End: 07-29-2025 Nystatin 100,000 unit/gram o intment Discontinued 1 NMA TOPICAL NEEDED April 23, 2025 12:00am July 29, 2025 1:06pm Start: 04-20-2024 End: 04-04-2025 Nystatin 100,000 unit/gram o intment Discontinued 1 NMA TOPICAL DAILY as needed for SKIN April 20, 2024 12:00am April 04, 2025 1:07pm ondansetron 4 mg disintegrating oral tablet (20 sources) Serotonin-3 Receptor Antagonist Start: 03-09-2023 take 1 tablet by mouth every eight hours as needed ondansetron 4 mg oral tablet, disintegrating ; 1 tab(s) orally every 8 hours, As Needed Quantity: 0 Refills: 0 Ordered: 13-Mar-2023 Deshawn Mderano Start: 09-Mar-2023 Generic Substitution Allowed Start: 03-09-2023 End: 01-20-2025 take 2 tablets by mouth every eight hours as needed for nausea Ondansetron 4 mg tablet,disintegrating Discontinued 8 mg PO EVERY 8 HOURS NEEDED as needed for Nausea March 09, 2023 12:00am January 20, 2025 3:34pm Start: 03-09-2023 take 8 mg by mouth e very eight hours as needed Ondansetron Active 8 MG PO EVERY 8 HOURS NEEDED March 08, 2023 11:00pm oxyCODONE hydrochloride 5 mg oral tablet (20 sources) Opioid Agonist Start: 09-28-2025 End: 10-05-2025 take 1-2 tablets by mouth every four hours as needed for pain oxyCODONE 5 mg oral tablet ( IMMEDIATE release ) See Instructions, PRN as needed for pain, 1-2 tab(s) Oral q4h, # 42 tab(s), 0 Refill(s), 10/05/25 10:18:00 AM EST, Pharmacy: [id number], Status post total left knee replacement, 155, cm, 09/27/25 12:41:00 EDT, Height, 77.3, kg, 09/27/25 12:41:00 EDT, Dosing Weight Start Date: 09/28/25 Stop Date: 10/05/25 Status: Ordered Medication Dispense Status: Completed Quantity: 42.0 Unit: tab(s) Total Allowed Fills: 1 Fills Dispensed: 0 Indications: Presence of left artificial knee joint; Start: 02-22-2025 End: 03-09-2025 take 5-10 mg by mouth every four hours as needed for pain Oxycodone 5 mg Tablet Discontinued 5 - 10 mg PO EVERY 4 HOURS NEEDED as needed for Pain Score 4-10 20 5 0 February 22, 2025 March 09, 2025 2:06pm Malignant neoplasm of left breast 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 Estrogen receptor positive status [ER+] Start: 01-28-2025 End: 02-11-2025 take 5-10 mg by mouth every four hours as needed for pain Oxycodone 5 mg Tablet Discontinued 5 - 10 mg PO EVERY 4 HOURS NEEDED as needed for Pain Score 4-10 10 5 0 January 28, 2025 February 11, 2025 12:57pm Breast lesion on mammography Other abnormal and inconclusive findings on diagnostic imaging of breast pantoprazole 40 mg delayed release oral tablet (20 sources) Proton Pump Inhibitor Start: 08-29-2025 pantoprazole 40 mg oral enteric coated tablet Dose : 40 mg = 1 tab(s), Oral, qDayAC, 0 Refill(s) Start Date: 08/29/25 Status: Ordered Medication Dispense Status: Completed Total Allowed Fills: 1 Fills Dispensed: 0 Start: 03-09-2023 End: 03-23-2023 take 1 tablet by mouth once daily rivaroxaban 10 mg oral tablet (1 source) Factor Xa Inhibitor Start: 09-28-2025 End: 10-10-2025 Xarelto 10 mg oral tablet Dose : 10 mg = 1 tab(s), Oral, qDay, Take for 2 weeks postoperatively for DVT prophylaxis due to hormone therapy., # 12 tab(s), 0 Refill(s), Pharmacy: [id number], 155, cm, 09/27/25 12:41:00 EDT, Height, 77.3, kg, 09/27/25 12:41:00 EDT, Dosing Weight Start Date: 09/28/25 Stop Date: 10/10/25 Status: Ordered Medication Dispense Status: Completed Quantity: 12.0 Unit: tab(s) Total Allowed Fills: 1 Fills Dispensed: 0 Indications: Malignant neoplasm of unspecified site of unspecified female breast; Presence of left artificial knee joint; sertraline 50 mg oral tablet (14 sources) Serotonin Reuptake Inhibitor Start: 08-29-2025 Zoloft 50 mg oral ta blet Dose : 50 mg = 1 tab(s), Oral, Daily, 0 Refill(s) Start Date: 08/29/25 Status: Ordered Medication Dispense Status: Completed Total Allowed Fills: 1 Fills Dispensed: 0 Start: 04-07-2025 take 1 tablet by mouth once da ema Vitamin C 500 mg oral tablet, chewable (3 sources) Start: 08-29-2025 Vitamin C 500 mg oral tablet, chewable Dose : 500 mg = 1 tab(s), Chewed, Daily, # 30 tab(s), 0 Refill(s) Start Date: 08/29/25 Status: Ordered Medication Dispense Status: Completed Quantity: 30.0 Unit: tab(s) Total Allowed Fills: 1 Fills Dispensed: 0 Vitamin D3 (3 sources) Start: 08-29-2025 take 1 tablet by mouth once daily Vitamin D3 C100 mcg, Oral, Daily, # 90 tab(s), 0 Refill(s) Start Date: 08/29/25 Status: Ordered Medication Dispense Status: Completed Quantity: 90.0 Unit: tab(s) Total Allowed Fills: 1 Fills Dispensed: 0 vitamin e 100 unt oral capsule (15 sources) Start: 08-29-2025 vitamin E 45 m g oral capsule Dose : 45 mg = 1 cap(s), Oral, qDay, # 100 cap(s), 0 Refill(s) Start Date: 08/29/25 Status: Ordered Medication Dispense Status: Completed Quantity: 100.0 Unit: cap(s) Total Allowed Fills: 1 Fills Dispensed: 0 Start: 01-20-2025 take 1 capsule by mouth once d aily Completed/Discontinued Medications Medication Drug Class(es) Dates Sig (Normalized) Sig (Original) acetaminophen 325 mg / HYDROcodone bitartrate 5 mg oral tablet (20 sources) Opioid Agonist Start: 03-09-2023 End: 01-20-2025 Hydrocodone-Acetami nophen 5-325 mg tablet Discontinued 1 {tbl} PO EVERY 6 HOURS NEEDED as needed for Pain 10 3 March 09, 2023 January 20, 2025 3:34pm Acute upper abdominal pain Upper abdominal pain, unspecified Start: 03-09-2023 take 1 tablet by yosi th every six hours as needed Hydrocodone-Acetaminophen Active 1 TABLE T PO EVERY 6 HOURS NEEDED 10 3 March 09, 2023 Start: 04-14-2021 End: 11-19-2021 Hydrocodone-Acetaminophen 5- 325 mg tablet Discontinued 1 {tbl} PO EVERY 6 HOURS as needed for pain 10 3 0 April 14, 2021 November 19, 2021 11:33am Contusion of rib on right side Contusion of right front wall of thorax, initial encounter Start: 04-14-2021 End: 11-19-2021 take 1 tablet by mouth every six hours Hydrocodone-Acetaminophen Discontinued 1 TABLET PO EVERY 6 HOURS 10 3 April 14, 2021 November 19, 2021 10:33am boric acid (20 sources) Start: 04-24-2023 End: 04-24-2023 Boric Acid 2.5 % solution Di scontinued mL TOPICAL April 24, 2023 12:00am April 24, 2023 11:27am Start: 04-24-2023 End: 01-20-2025 Boric Acid 10 % ointment Dis continued NMA TOPICAL April 24, 2023 12:00am January 20, 2025 3:29pm Start: 04-24-2023 Boric Acid Act saira EACH TOPICAL April 23, 2023 11:00pm Start: 04-24-2023 End: 04-24-2023 Boric Acid Discontinued ML T OPICAL April 23, 2023 11:00pm April 24, 2023 10:27am Start: 04-24-2023 Boric Acid Act saira EACH TOPICAL April 24, 2023 12:00am Start: 04-24-2023 End: 04-24-2023 Boric Acid Discontinued ML T OPICAL April 24, 2023 12:00am April 24, 2023 11:27am boric acid 600 mg vaginal ki t (3 sources) Start: 08-29-2025 End: 09-07-2025 boric acid 600 mg vaginal ki t Dose = 1 supp, Vaginal, Friday, # 1 EA, 0 Refill(s) Start Date: 08/29/25 Stop Date: 09/07/25 Status: Ordered Medication Dispense Status: Completed Quantity: 1.0 Unit: EA Total Allowed Fills: 1 Fills Dispensed: 0 Start: 08-29-2025 End: 09-07-2025 boric acid 600 mg vaginal ki t Dose = 1 supp, Vaginal, qHS, # 1 EA, 0 Refill(s) Start Date: 08/29/25 Stop Date: 09/07/25 Status: Ordered Medication Dispense Status: Completed Quantity: 1.0 Unit: EA Total Allowed Fills: 1 Fills Dispensed: 0 cartilage revive (12 sources) Start: 10-18-2024 End: 04-04-2025 cartilage revive Discontinue d 2 NMA PO DAILY October 18, 2024 1:00am April 04, 2025 1:07pm Start: 10-18-2024 cartilage revi ve Active 2 NMA PO DAILY October 18, 2024 1:00am ciprofloxacin 500 mg oral ta blet (20 sources) Quinolone Antimicrobial Start: 11-11-2022 End: 12-03-2022 Start: 09-24-2022 End: 09-29-2022 Start: 02-27-2022 End: 03-06-2022 take 1 tablet by mouth twice daily Ciprofloxacin Hcl 500 mg tablet Discontinued 500 mg PO TWICE A DAY 14 7 0 February 27, 2022 12:00am March 05, 2022 12:00am March 06, 2022 12:03am Start: 11-04-2017 End: 2017 Comment on above: called to drug suzette bryant,[facility] 11/13/22. clarithromycin 500 mg oral tablet (20 sources) Macrolide Antimicrobial Start: 11-09-20 13 End: 12-08-19 14 CRANBERRY CONCENTRATE, 500MG (Oral Capsule) (20 sources) take 1 capsule by mouth at mealtime CRANBERRY CONCENTRATE, 500MG (Oral Capsule) 2 caps each meal (500 MG) Inactive take 1 capsule by mouth at mealt anibal CRANBERRY CONCENTRATE, 500MG (Oral Capsule) 2 caps each meal (500 MG) Active Cranberry (20 sources) Non-Standardized Food Allergenic Extract, Non-Standardized Plant Allergenic Extract Start: 07-20-2020 End: 06-05-2022 take 1 capsule by mouth twice daily Cranberry 500 mg capsule Discontinued 1000 mg PO TWICE A DAY July 20, 2020 9:33am June 05, 2022 10:10am Start: 07-20-2020 End: 06-05-2022 take 1000 mg by mouth twice daily Cranberry Discontinued 1000 MG PO TWICE A DAY July 20, 2020 9:33am June 05, 2022 10:10am Start: 07-20-2020 End: 06-05-2022 take 1000 mg by mouth twice daily Cranberry Discontinued 1000 MG PO TWICE A DAY July 20, 2020 8:33am June 05, 2022 9:10am Start: 07-20-2020 take 1000 mg by mout h twice daily Cranberry Active 1000 MG PO TWICE A DAY July 20, 2020 9:33am Start: 04-23-2016 End: 07-20-2020 take 1 tablet by mouth once daily Cranberry Discontinued 1 TABLET PO DAILY April 23, 2016 12:19pm July 20, 2020 9:34am Start: 04-23-2016 End: 07-20-2020 take 1 capsule by mouth once daily Cranberry 500 MG capsule Discontinued 1 {tbl} PO DAILY April 23, 2016 12:00am July 20, 2020 9:34am Start: 04-23-2016 End: 07-20-2020 take 1 tablet by mouth once daily Cranberry Discontinued 1 TABLET PO DAILY April 22, 2016 11:00pm July 20, 2020 8:34am Start: 04-23-2016 End: 07-20-2020 take 1 tablet by mouth once daily Cranberry Discontinued 1 TABLET PO DAILY April 23, 2016 12:00am July 20, 2020 9:34am take 1 capsule by mo uth at mealtime CRANBERRY CONCENTRATE, 500MG (Oral Capsule) 2 caps each meal (500 MG) Inactive diazePAM 2 mg oral tablet (20 sources) Benzodiazepine Start: 05-16-2022 End: 06-05-2022 take 1 tablet by mouth three times daily as needed for dizziness Diazepam (Valium) 2 mg tablet Discontinued 2 mg PO THREE TIMES A DAY as needed for dizziness or vertigo 15 5 0 May 16, 2022 12:00am June 05, 2022 10:12am Peripheral vertigo Other peripheral vertigo, unspecified ear oxyquinoline sulfate 0.49670 mg/mg / sodium dodecyl sulfate 0.0001 mg/mg vaginal gel (20 sources) Start: 07-20-2020 End: 10-20-2023 Oxyquinoline-Sod.L auryl Sulfat (Trimo-Colon Jelly) 0.025-0.01 % gel Discontinued 1 NMA VAGINAL WE 113.4 2 May 20, 2023 1:41pm October 20, 2023 10:17am Start: 04-06-2019 End: 01-10-2020 Oxyquinoline-Sod.Lauryl Sulf at (Trimo-Colon Jelly) 0.025-0.01 % gel Discontinued 0 VAGINAL .COMPLEX 113.4 3 April 06, 2019 12:00am January 10, 2020 10:30am 1 application VAGINAL weekly; econazole nitrate 10 mg/ml t opical cream (20 sources) Azole Antifungal Start: 11-09-2013 End: 11-09-2013 Start: 11-09-2013 End: 11-09-2013 ECONAZOLE NITRATE, 1% (Exter nal Cream) 1 Cream apply daily for 0 days Quantity: 60 {Cream} Refills: 1 Ordered: 09-Nov-2013 Idalia Ellis DO Start : 09-Nov-2013 End : 09-Nov-2013 Discontinued estradiol 0.1 mg/ml vaginal cream (20 sources) Estrogen Start: 04-04-2025 End: 04-04-2025 Estradiol 0.01 % (0.1 mg/gram) cream Discontinued 1 VAGINAL April 04, 2025 12:00am April 04, 2025 1:06pm Start: 11-07-2022 Start: 11-07-2022 Estrace 0.01% (0.1 mg/gram) vaginal cream 1 (one) Gram 1 gm PV twice a week for 30 days Quantity: 1 {Gram} Refills: 6 Ordered: 07-Nov-2022 Dione DO Omayra Start : 07-Nov-2022 Active Start: 10-09-2021 Estrace 0.1 MG /GM Vaginal Cream 1 (one) Gram 1 gm PV twice a week for 30 days Quantity: 1 {Gram} Refills: 6 Ordered: 09-Oct-2021 Belem Hagen Start : 09-Oct-2021 Active Start: 01-30-2021 Estrace 0.1 MG /GM Vaginal Cream 1 (one) Gram 1 gm PV twice a week for 30 days Quantity: 1 {Tube} Refills: 6 Ordered: 30-Jan-2021 Belem Hagen CNP, CNP, Mary E Start : 30-Jan-2021 Active Start: 08-11-2020 Estrace 0.1 MG /GM Vaginal Cream 1 (one) Gram 1 gm PV twice a week for 30 days Quantity: 1 {Tube} Refills: 6 Ordered: 11-Aug-2020 Belem Hagen CNP, CNP, Mary E Start : 11-Aug-2020 Active Start: 05-11-2019 Estrace 0.1 MG /GM Vaginal Cream 1 (one) Gram Gram 1 gm PV twice a week for 30 days Refills: 6 Ordered: 11-May-2019 Belem Hagen CNP, CNP, Mary E Start : 11-May-2019 Active Start: 01-28-2019 Estrace 0.1 MG /GM Vaginal Cream 1 (one) Gram Gram 1 gm PV twice a week for 30 days Refills: 6 Ordered: 28-Jan-2019 Belem Hagen CNP, CNP, Mary E Start : 28-Jan-2019 Active Start: 11-04-2017 End: 03-25-2025 Estradiol (Estrace) 0.01 % ( 0.1 mg/gram) cream Discontinued 1 g VAGINAL MOFR December 17, 2017 1:00am March 25, 2025 10:35am fluconazole 150 mg oral tablet (20 sources) Azole Antifungal Start: 07-20-2020 End: 11-16-2020 Fluconazole 150 mg tablet Discontinued 150 mg PO .COMPLEX 1 0 July 20, 2020 12:00am November 16, 2020 11:52am 150 mg PO take one po now Start: 11-09-2013 End: 11-09-2013 Start: 11-09-2013 End: 11-09-2013 DIFLUCAN, 150MG (Oral Tablet ) 1 Tablet once then repeat in 2 days for 0 days Quantity: 2 {Tablet} Refills: 0 Ordered: 09-Nov-2013 Idalia Ellis DO Start : 09-Nov-2013 End : 09-Nov-2013 Discontinued fluocinonide 1 mg/ml topical cream (20 sources) Corticosteroid Start: 05-31-2015 End: 04-30-2016 Trortrut-Ewpv-Emn2-C -Didier-Bosw (14 sources) Start: 04-23-2016 End: 12-11-2017 take 1 tablet by mouth once daily Zujpheun-Sakv-Ibl4- C-Didier-Bosw Discontinued 1 TABLET PO DAILY April 23, 2016 12:19pm December 11, 2017 10:31am Start: 04-23-2016 End: 12-11-2017 take 1 tablet by mouth once daily Jsacrron-Rtzl-Sxm0-C-Didier-Bosw Discontin ued 1 TABLET PO DAILY April 22, 2016 11:00pm December 11, 2017 9:31am Start: 04-23-2016 End: 12-11-2017 take 1 tablet by mouth once daily Dokghkpl-Uvtj-Eff9-C-Didier-Bosw Discontin ued 1 TABLET PO DAILY April 23, 2016 12:00am December 11, 2017 10:31am Hbteshhl-Xatr-Xoz7-C-Didier-Navjot sw 1 EACH tablet (12 sources) Start: 04-23-2016 End: 12-11-2017 take 1 tablet by mouth once daily Aspkurqu-Oefi-Wqu8-C-Didier-Bosw 1 EACH tablet Discontinued 1 {tbl} PO DAILY April 23, 2016 12:00am December 11, 2017 10:31am Glucosamine Chondr 500 Compl ex (2 sources) take 1 capsule by mouth once daily GLUCOSAMINE CHONDR 500 COMPLEX (Oral Capsule) 1 daily Active GLUCOSAMINE CHONDR 500 COMPL EX (Oral Capsule) (20 sources) GLUCOSAMINE ASTRID DR 500 COMPLEX (Oral Capsule) 1 daily Active Glucosamine-Chondroitin Comp lx (7 sources) levothyroxine sodium 0.025 m g oral tablet (20 sources) l- yr ox in e Start: 02-25-2022 End: 01-18-2025 take 1 tablet by mouth once daily Levothyroxine (Synthroid) 25 mcg tablet Discontinued 25 ug PO DAILY February 25, 2022 12:00am January 18, 2025 9:45am Start: 02-04-2022 take 1 tablet by yosi th once daily Synthroid 25 MCG Oral Tablet 1 (one) Tablet daily as directed for 60 days Quantity: 60 {Tablet} Refills: 0 Ordered: 04-Feb-2022 Belem Hagen CNP, CNP, Mary E Start : 04-Feb-2022 Active Start: 12-11-2021 take 1 tablet by yosi th once daily Synthroid 25 MCG Oral Tablet 1 (one) Tablet daily as directed for 60 days Quantity: 60 {Tablet} Refills: 0 Ordered: 11-Dec-2021 Belem Hagen CNP, CNP, Mary E Start : 11-Dec-2021 Active take 1 tablet by yosi th once daily levothyroxine 25 mcg (0.025 mg) oral tablet ; 1 tab(s) orally once a day Quantity: 0 Refills: 0 Ordered: 13-Mar-2023 Marcela Deshawn Generic Substitution Allowed methenamine hippurate 1000 m g oral tablet (20 sources) Start: 08-29-2025 End: 09-03-2025 methenamine hippurate 1 g or al tablet Dose : 1 gram(s) = 1 tab(s), Oral, BID, # 10 tab(s), 0 Refill(s) Start Date: 08/29/25 Stop Date: 09/03/25 Status: Ordered Medication Dispense Status: Completed Quantity: 10.0 Unit: tab(s) Total Allowed Fills: 1 Fills Dispensed: 0 Start: 05-26-2025 Start: 12-17-2017 End: 07-13-2018 Methenamine Hippurate 1 gram tablet Discontinued 1 g PO TWICE A DAY December 17, 2017 1:00am July 13, 2018 9:07am miconazole nitrate 20 mg/ml vaginal cream (20 sources) Azole Antifungal Start: 07-26-2020 End: 08-02-2020 Miconazole Nitrate (Miconazole-7) 2 % cream Discontinued 1 NMA VAGINAL AT BEDTIME 45 7 0 July 26, 2020 12:00am August 01, 2020 12:00am August 02, 2020 12:02am Start: 07-26-2020 End: 08-02-2020 Miconazole Nitrate (Miconazo le-7) 2 % cream Discontinued 1 APPFUL VAGINAL AT BEDTIME 45 7 July 25, 2020 11:00pm August 01, 2020 11:02pm Start: 05-02-2016 End: 05-09-2016 MONISTAT 7 COMPLETE THERAPY, 100-2MG-% (Vaginal Kit) 1 (one) Kit daily for 7 days Quantity: 1 Kit Refills: 0 Ordered: 02-May-2016 Robby Mckenzie MD Start : 02-May-2016 End : 09-May-2016 Inactive Start: 05-02-2016 End: 05-09-2016 MONISTAT 7 COMPLETE THERAPY, 100-2MG-% (Vaginal Kit) 1 (one) Kit daily for 7 days Quantity: 1 Kit Refills: 0 Ordered: 02-May-2016 Robby Mckenzie MD Start : 02-May-2016 End : 09-May-2016 Inactive mometasone furoate 0.05 mg/a ctuat metered dose nasal spray (20 sources) Corticosteroid Start: 11-09-2013 End: 03-11-2016 Start: 11-09-2013 End: 03-11-2016 NASONEX, 50MCG/ACT (Nasal Roche spension) 2 (two) Suspension sprays qd for 0 days Quantity: 1 {Suspension} Refills: 0 Ordered: 11-Mar-2016 Fiorella Whelan CMA Start : 09-Nov-2013 End : 11-Mar-2016 Inactive MONISTAT 7 COMPLETE THERAPY, 100-2MG-% (Vaginal Kit) (9 sources) Start: 05-02-2016 End: 05-09-2016 MONISTAT 7 COMPLETE THERAPY, 100-2MG-% (Vaginal Kit) 1 (one) Kit daily for 7 days Quantity: 1 Kit Refills: 0 Ordered: 02-May-2016 Robby Mckenzie MD Start : 02-May-2016 End : 09-May-2016 Inactive Monistat 7 cream, appl, wipe s (7 sources) Start: 05-02-2016 End: 05-09-2016 Multivitamin preparation (20 sources) take 1 tablet by mouth once nia y MULTIVITAMIN (PO Tab) 1 daily Inactive nitrofurantoin, macrocrystals 100 mg oral capsule (20 sources) Nitrofuran Antibacterial Start: 02-25-2022 End: 02-27-2022 take 1 capsule by mouth twice daily at mealtime Nitrofurantoin Macrocrystal 100 mg capsule Discontinued 100 mg PO TWICE A DAY 14 7 0 February 25, 2022 12:00am March 03, 2022 12:00am February 27, 2022 8:32am administer with food (meal or snack) phenazopyridine hydrochloride 100 mg oral tablet (20 sources) Start: 12-08-2013 End: 12-10-2013 predniSONE 20 mg oral tablet (20 sources) Start: 05-31-2015 End: 06-10-2015 sulfamethoxazole 800 mg / trimethoprim 160 mg oral tablet (20 sources) Dihydrofolate Reductase Inhibitor Antibacterial, Sulfonamide Antimicrobial Start: 04-23-2016 End: 04-25-2016 Sulfamethoxazole-T rimethoprim Discontinued 1 EACH PO TWICE A DAY April 22, 2016 11:00pm April 25, 2016 1:59pm Start: 04-19-2016 End: 04-26-2016 Sulfamethoxazole-Trimethopri m 1 EACH tablet Discontinued 1 NMA PO TWICE A DAY April 23, 2016 12:00am April 25, 2016 2:59pm Start: 04-19-2016 End: 04-26-2016 triamcinolone acetonide 5 mg /ml topical cream (20 sources) Corticosteroid Start: 02-26-2023 Start: 06-24-2022 Triamcinolone Acetonide 0.5 % External Cream 1 (one) Application apply pea sized amount as directed for 0 days Quantity: 30 {Gram} Refills: 3 Ordered: 24-Jun-2022 Rayshawn Chaudhary CNP Start : 24-Jun-2022 Active Start: 12-11-2021 Triamcinolone Acetonide 0.5 % External Cream 1 (one) Application apply pea sized amount as directed for 0 days Quantity: 30 {Gram} Refills: 3 Ordered: 11-Dec-2021 Belem Hagen Mary Start : 11-Dec-2021 Active Start: 01-30-2021 Triamcinolone Acetonide 0.5 % External Cream 1 (one) Application apply pea sized amount as directed for 0 days Quantity: 30 {Gram} Refills: 3 Ordered: 30-Jan-2021 Daniel PARIKH Afshin Start : 30-Jan-2021 Active Start: 07-20-2020 End: 01-27-2024 Triamcinolone Acetonide 0.5 % cream Discontinued 1 NMA TOPICAL TWICE A DAY 15 7 2 July 20, 2020 12:00am January 27, 2024 11:36am peasized amount as instructed Problems Active Problems Problem Classification Problem Date Documented Date Episodic/Chronic Abdominal pain (20 sources) Upper abdominal pain; Translations: [Upper abdominal pain, unspecified] Onset: 03-09-2023 Episodic Allergic reactions (20 sources) Contact dermatitis due to poison debi; Translations: [Allergy to sulfonamides] Onset: Resolve d: 06-21-2015 Episodic Comment on above: Serum reaction to Ba ctrim 04/19/16skin rash, fever and chills, chest pain, difficulty passing urine, weak and tired Anxiety disorders (20 sources) Acute stress disorder; Translations: [Acute stress reaction] 04-07-2025 Chronic Cancer of breast (20 sources) Malignant tumor of breast ; Translations: [Malignant neoplasm of unspecified site of left female breast] Onset: 02-11-2025 Chronic Comment on above: Invasive ductal carc inoma, Gr 2, E/Pr +. Nodes neg. Radiation. Cancer of breast (1 source) Personal history of malignant neoplasm of breast; Translations: [Personal history of malignant neoplasm of breast] Onset: Episodic Chronic kidney disease (20 sources) Chronic kidney disease stage 3; Translations: [CKD stage G3a/A1, GFR 45-59 and albumin creatinine ratio <30 mg/g] 02-19-2021 Chronic Comment on above: GFR declinin now at 41, creat 1.[address] Carcamo GFR declining now at 46, creat 1.[address] Carcamo will see Dec 12, 2021 GFR declining now at 46, creat 1.[address] Carcamo will see Dec 12, 2021, In ER GFR 38 Chronic kidney disease (20 sources) Chronic kidney disease Conditions associated with dizziness or vertigo (20 sources) Vertigo; Translations: [Benign paroxysmal positional vertigo] Onset: 06-21-2020 Episodic Comment on above: ER visit on 06-13-20 with vertigo, got Iv fluid, stable thereafter ER visit on 06-13-20 with vertigo, got Iv fluid, stable thereafter, again vertigo Deficiency and other anemia (2 sources) Iron deficiency anemia, unspecified; Translations: [Iron deficiency anemia, unspecified] Onset: Episodic Diabetes mellitus without complication (20 sources) Impaired fasting glucose; Translations: [Impaired fasting glycaemia] Resolve d: 023 12-02-2018 Episodic Comment on above: discussed level, sug gesting watch sugars and carbs improved Diseases of white blood cells (20 sources) Basophilia; 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 Disorders of lipid metabolism (20 sources) Hyperlipidemia; Translations: [Hypertriglyceridemia] Onset: 12-02-2018 Chronic Comment on above: needs refill, sent t [facility] Diverticulosis and diverticulitis (20 sources) Diverticulitis of gastrointestinal tract; Translations: [Diverticulitis] Resolve d: 015 06-21-2015 Chronic Esophageal disorders (20 sources) Gastroesophageal reflux disease; Translations: [Gastro-esophageal reflux disease without esophagitis] Onset: 06-13-2020 Chronic Comment on above: more pain under righ t scapula and will call PCP Essential hypertension (20 sources) Hypertensive disorder; Translations: [Essential (primary) hypertension] Onset: 023 04-14-2021 Chronic Fluid and electrolyte disorders (20 sources) Mild dehydration; Translations: [Dehydration] 05-24-2022 Episodic Genitourinary symptoms and ill-defined conditions (20 sources) Vaginal pessary in situ; Translations: [Vaginal pessary present] 02-19-2021 Chronic Comment on above: #3 donut:no syringe needed Genitourinary symptoms and ill-defined conditions (20 sources) Increased frequency of urination; Translations: [Dysuria] Resolve d: 023 11-04-2017 Episodic Comment on above: estrogen cream Fri nights , trimo-colon gel intravag q fri and pessary, now UTI symptoms goneSees Rayna Bazzi and Dr. Uriarte UA:Leucocyte esteras se positiveCulturesStarting monistat 75/20 treated for UTI with bactrim (severe allergic reactions with fever, chest pain, rash), severe burning in urination, frequency, Now slight burning in perineal area, no blood in urine.No vaginal discharge, mild itching in vaginal area cannot take bactrim or penicillin recheck good no bloo d inurine today. allgy to pcn and sul fa has prescribed estra ce Triamcinolone ua is normal will in crease frequency of triamcinolone and estrace (per Rayna Bazzi) send off ua for C&S Headache; including migraine (8 sources) Headache; Translations: [Headache] 04-23-2025 Episodic Headache; including migraine (1 source) Headache; including migraine; Translations: [Headache, unspecified] Onset: Hypertension with complications and secondary hypertension (1 source) Hypertensive chronic kidney disease with stage 1 through stage 4 chronic kidney disease, or unspecified chronic kidney disease; Translations: [Hypertensive chronic kidney disease with stage 1 through stage 4 chronic kidney disease, or unspecified chronic kidney disease] Onset: Chronic Menopausal disorders (20 sources) Postmenopausal atrophic vaginitis; Translations: [Vaginitis, atrophic] Resolve d: 12-02-2018 Chronic Mood disorders (1 source) Mood disorders; Translations: [Depression, unspecified] Onset: Mycoses (20 sources) Candidiasis of vagina; Translations: [Candidiasis] Resolve d: 018 07-27-2018 Episodic Comment on above: Redness in vaginal a reaMonistat cream and suppository Nausea and vomiting (20 sources) Nausea; Translations: [Nausea] Onset: Resolve d: 09-18-2020 Episodic Osteoarthritis (14 sources) Arthritis; Translations: [Unspecified osteoarthritis, unspecified site] Onset: 03-16-2025 Chronic Other aftercare (2 sources) Other prison (current) drug therapy; Translations: [Other prison (current) drug therapy] Onset: Episodic Other aftercare (1 source) 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 inhibitors; Translations: [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 inhibitors] Onset: Episodic Other aftercare (1 source) termite treater helper (current) use of antibiotics; Translations: [termite treater helper (current) use of antibiotics] Onset: Episodic Other aftercare (1 source) group home (current) use of anticoagulants; Translations: [termite treater helper (current) use of anticoagulants] Onset: Episodic Other aftercare (1 source) Encounter for therapeutic drug level monitoring; Translations: [Encounter for therapeutic drug level monitoring] Onset: Episodic Other and unspecified benign neoplasm (20 sources) Angiomyolipoma of kidney; 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 Comment on above: followup US in 6 11/15US 05/10/16: angiomyolipoma rt kidney Other bone disease and musculoskeletal deformities (15 sources) Osteopenia; Translations: [Other specified disorders of bone density and structure, unspecified site] 03-16-2025 Episodic Other bone disease and musculoskeletal deformities (1 source) Other specified disorders of bone density and structure, multiple sites; Translations: [Other specified disorders of bone density and structure, multiple sites] Onset: Episodic Other circulatory disease (20 sources) Elevated blood-pressure reading without diagnosis of hypertension; Translations: [Elevated blood-pressure reading without diagnosis of hypertension] 12-02-2018 Episodic Comment on above: chronic stable-castro nue present regimen Other circulatory disease (11 sources) Transient hypertension; Translations: [Elevated blood-pressure reading, without diagnosis of hypertension] 04-07-2025 Episodic Other connective tissue disease (1 source) Artificial knee joint present; Translations: [Presence of left artificial knee joint] Onset: Chronic Other connective tissue disease (1 source) Presence of left artificial knee joint; Translations: [Presence of left artificial knee joint] Onset: Chronic Other connective tissue disease (19 sources) Imaging of thorax abnormal; Translations: [Abnormal chest x-ray] 12-02-2018 Episodic Other connective tissue disease (1 source) Other specified soft tissue disorders; Translations: [Other specified soft tissue disorders] Onset: Episodic Other diseases of kidney and ureters (20 sources) Renal impairment; Translations: [Renal Insufficiency (Renamed from Impaired renal function)] 12-02-2018 Episodic Other diseases of kidney and ureters (1 source) Disorder of kidney and/or ureter; Translations: [Disorder of kidney and ureter, unspecified] Onset: Episodic Other diseases of kidney and ureters (2 sources) Disorder of kidney and ureter, unspecified; Translations: [Disorder of kidney and ureter, unspecified] Onset: Episodic Other gastrointestinal disorders (12 sources) Abdominal bloating; Translations: [Bloated abdomen] 05-15-2023 Episodic Other inflammatory condition of skin (20 sources) Perioral dermatitis; Translations: [Perioral dermatitis] 12-02-2018 Chronic Comment on above: wash with green tea cleanserGreen tea lotion once a dayNeosynalar ointmnet BIDDr Nabil:may 01 2016Follow up 1 week Other inflammatory condition of skin (20 sources) Pruritus of vagina; Translations: [PRURITUS, GENITALIA] 12-02-2018 Episodic Comment on above: treated with monista t for vaginal yeast infection on 05/02/16.Now some mild itching, no dischrage, no urine complaints.UA today: WNL Other liver diseases (20 sources) Fatty liver; Translations: [Steatosis of liver] Chronic Other liver diseases (20 sources) Steatosis of liver; Translations: [Fatty liver] 12-02-2018 Chronic Comment on above: -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, weight reduction >15 %Repeat Lipid panel, LFT, HBA1C in 6 monthsUS 04/15 revealed fatty liverexercise:no Other liver diseases (19 sources) High lipase level in serum; Translations: [Abnormal levels of other serum enzymes] 03-09-2023 Episodic Other liver diseases (14 sources) Elevated liver enzymes level; Translations: [Elevated liver enzymes] 03-17-2023 Episodic Other nervous system disorders (20 sources) Burning sensation of vagina; Translations: [Vaginal burning] Resolve d: 023 06-21-2020 Episodic Comment on above: not Uti, had 3000 MU G suspect vaginal atrophy issue, told to stop antibiotic and use estrogen cream 6 days a week, resume 2x weekly thereafter Other nervous system disorders (1 source) Other acute postprocedural pain; Translations: [Other acute postprocedural pain] Onset: Episodic Other non-traumatic joint disorders (1 source) Osteophyte, left knee; Translations: [Osteophyte, left knee] Onset: Episodic Other nutritional; endocrine; and metabolic disorders (20 sources) Body mass index 30+ - obesity; Translations: [BMI 31.0-31.9,adult] Resolve d: 023 12-02-2018 Chronic Other nutritional; endocrine; and metabolic disorders (20 sources) Hypocalcemia; Translations: [Hypocalcemia] 02-19-2021 Chronic Other screening for suspected conditions (not mental disorders or infectious disease) (20 sources) Imaging of thorax abnormal; Translations: [Abnormal chest x-ray] 02-19-2021 Chronic Other skin disorders (20 sources) Eruption; Translations: [Rash] Resolve d: 015 06-21-2015 Episodic Other upper respiratory disease (20 sources) Pain in throat Episodic Other upper respiratory infections (20 sources) Viral upper respiratory tract infection; Translations: [Upper respiratory infection] Resolve d: 014 12-02-2018 Episodic Pancreatic disorders (not diabetes) (16 sources) Acute pancreatitis; Translations: [Acute pancreatitis without necrosis or infection, unspecified] 05-21-2023 Episodic Poisoning by other medications and drugs (20 sources) Sulfonamide adverse reaction; Translations: [Adverse reaction to sulfa antibiotic] Resolve d: 023 12-02-2018 Episodic Comment on above: fever and rash 04/23 Prolapse of female genital organs (20 sources) Cystocele; Translations: [Uterine prolapse] Onset: 12-02-2018 Chronic Comment on above: discussed options sees Dr. Uriarte , Rayna Bazzi has pessary, Takes 1/2 grm estrogen cream intravaginally and tremasol stable Rehabilitation care; fitting of prostheses; and adjustment of devices (20 sources) Patient encounter status; Translations: [Encounter for fitting and adjustment of other specified devices] Onset: Chronic Residual codes; unclassified (20 sources) Family history of ischemic heart disease; Translations: [Family history of ischemic heart disease] 12-02-2018 Episodic Residual codes; unclassified (20 sources) Postmenopausal state; Translations: [Postmenopausal (Renamed from Postmenopausal status)] 12-02-2018 Episodic Residual codes; unclassified (20 sources) Unspecified donor, other blood; Translations: [Blood donor] 06-21-2020 Episodic Comment on above: A positive Residual codes; unclassified (20 sources) Non-smoker; Translations: [Nonsmoker] 02-19-2021 Episodic Residual codes; unclassified (12 sources) Other specified postprocedural states; Translations: [History of lumpectomy] 02-15-2025 Episodic Comment on above: LEFT BREAST LUMPECTO MY 01/2025 Residual codes; unclassified (2 sources) Estrogen receptor positive status [ER+]; Translations: [Estrogen receptor positive status [ER+]] Onset: Episodic Residual codes; unclassified (1 source) Acquired absence of left breast and nipple; Translations: [Acquired absence of left breast and nipple] Onset: Episodic Skin and subcutaneous tissue infections (20 sources) Impetigo; Translations: [Impetigo] 12-02-2018 Episodic Superficial injury; contusion (5 sources) Contusion of rib; Translations: [Contusion of right front wall of thorax, initial encounter] Episodic Thyroid disorders (20 sources) Hypothyroidism; Translations: [Hypothyroid] 03-11-2022 Chronic Comment on above: at goal will renew f or 90 days Thyroid disorders (1 source) Disorder of thyroid, unspecified; Translations: [Disorder of thyroid, unspecified] Onset: 023 Episodic Unclassified (20 sources) PRURITUS, GENITALIA (698.1) Unclassified (20 sources) UTI symptoms Unclassified (20 sources) Unclassified (20 sources) Elevated Blood Pressure without diagnosis of Hypertension (796.2) Unclassified (20 sources) screening Resolve d: 014 12-02-2018 Unclassified (20 sources) postmenopausal without estrogen 12-02-2018 Unclassified (20 sources) Non-smoker; Translations: [Nonsmoker] 12-02-2018 Unclassified (20 sources) Hypertriglycerides (272.1) Unclassified (20 sources) Renal insufficiency Unclassified (20 sources) BMI 31.0-31.9,adult Unclassified (20 sources) Prolapsed uterus Unclassified (20 sources) Blood donor Unclassified (20 sources) Elevated TSH Unclassified (20 sources) Postmenopausal (Renamed from Postmenopausal status) Unclassified (20 sources) BMI 32.0-32.9,adult Unclassified (20 sources) Encounter for screening mammogram for breast cancer (Renamed from Encounter for screening mammogram for malignant neoplasm of breast) Unclassified (20 sources) Angiomyolipoma of right kidney Unclassified (20 sources) Hyperglyceridemia Unclassified (7 sources) Elevated basophils Unclassified (2 sources) NAUSEA/ABD PAIN 03-13-2023 Comment on above: NAUSEA/ABD PAIN Unclassified (1 source) Epigastric abdominal pain of unknown etiology 03-13-2023 Unclassified (16 sources) C50.112 - 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,Z17.0 - Estrogen receptor positive status [ER+] Unclassified (8 sources) M85.80 - Other specified disorders of bone density and structure, unspecified site,C50.112 - 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,Z17.0 - Estrogen receptor positive status [ER+] Unclassified (2 sources) Malignant neoplasm of left breast Urinary tract infections (20 sources) Urinary tract infectious disease; Translations: [UTI (urinary tract infection)] Onset: 025 12-02-2018 Episodic Comment on above: frequnt had 3 in las t few months. will treat with estrogen cream has bladder prolapse will see uro increase po fliuds, talk about work up and how to proceed. wipe front to back. not sexually active. treat estrogen deficiency see about bladder tack frequnt had 3 in las t few months. will treat with estrogen cream has bladder prolapse will see uro increase po fliuds, talk about work up and how to proceed. wipe front to back. not sexually active. treat estrogen deficiency has pessary now E Coli frequnt had 3 in las t few months. will treat with estrogen cream has bladder prolapse will see uro increase po fliuds, talk about work up and how to proceed. wipe front to back. not sexually active. treat estrogen deficiency has pessary, will be seeing Sparkle tracey. Past or Other Problems Problem Classification Problem Date Documented Date Episodic/Chronic Administrative/soci al admission (16 sources) Patient encounter status; Translations: [Counseling, unspecified] Onset: 5 04-21-2025 Episodic Conditions associated with dizziness or vertigo (20 sources) Conditions associated with dizziness or vertigo Diabetes mellitus without complication (4 sources) Prediabetes; Translations: [Prediabetes] 12-02-2018 Comment on above: discussed level, sug gesting watch sugars and carbs Nonmalignant breast conditions (1 source) Unspecified lump in the left breast, unspecified quadrant; Translations: [Unspecified lump in the left breast, unspecified quadrant] Onset: 5 Episodic Nonspecific chest pain (20 sources) Chest pain; Translations: [Chest pain] Onset: 5 Resolved: 8 07-27-2018 Episodic Comment on above: Stess test and enzym es negativeStableFriday started bactrim for UTIMonday :below rib area started pain, couldnt sleepTuesday: sweating , pale, squadAdmitted 04/23 to 04/25:stess test, enzymes negative.No chest pain now Other circulatory disease (1 source) Elevated blood-pressure reading, without diagnosis of hypertension; Translations: [Elevated blood-pressure reading, without diagnosis of hypertension] Onset: 5 Episodic Other screening for suspected conditions (not mental disorders or infectious disease) (20 sources) Raised TSH level; Translations: [Imaging of thorax abnormal] Onset: 5 Resolved: 3 12-02-2018 Episodic Comment on above: postmenopausal witho ut estrogen left Residual codes; unclassified (13 sources) Finding related to blood, organ, or tissue donation; Translations: [Blood donor] 12-02-2018 Episodic Comment on above: A positive Residual codes; unclassified (1 source) Personal history of other medical treatment; Translations: [Personal history of other medical treatment] Onset: 5 Episodic Unclassified (20 sources) Patient encounter status; Translations: [Encounter for Medicare annual wellness exam] 12-02-2018 Comment on above: postmenopausal witho ut estrogen Unclassified (20 sources) Abnormal Chest X-Ray (793.99) Unclassified (20 sources) Annual Medicare Physical (V70.0) Unclassified (20 sources) Unspecified Diagnosis 12-02-2018 Unclassified (20 sources) Rash Unclassified (20 sources) Poison debi Unclassified (20 sources) Urine frequency Unclassified (20 sources) Prediabetes Unclassified (20 sources) Vaginitis, atrophic (627.3) Unclassified (20 sources) Sulfa sensitivity Unclassified (20 sources) Adverse reaction to sulfa antibiotic Unclassified (20 sources) Allergy to sulfa drugs Unclassified (20 sources) Vaginal yeast infection (112.1) Unclassified (20 sources) Viral upper respiratory tract infection with cough Unclassified (6 sources) Screening status; Translations: [Screening for osteoporosis (Renamed from Encounter for screening for osteoporosis)] 06-21-2020 Comment on above: postmenopausal witho ut estrogen Unclassified (20 sources) Vaginal pessary present Unclassified (20 sources) Vaginal burning Unclassified (10 sources) BPV (benign positional vertigo) Urinary tract infections (20 sources) Urinary tract infections Results Test Name Value Interpretation Reference Range Facility Inital Evaluation (1) - PTon 09-30-2025 Inital Evaluation (1) - PT [facility] .Auto Diffon 09-28-2025 Basophil, Absolute 0.0 10 3/mcL Normal 0.0-0.3 [facility] Comment on above: Performed By: #### MORENA CHOPRA #### [address] [address] Basophils/100 WBC (Bld) 0.2 % Normal 0.0-2.5 [facility] Comment on above: Performed By: #### A MORENA WATERS #### [address] [address] Eosinophil, Absolute 0.0 10 3/mcL Normal 0.0-0.7 [facility] Comment on above: Performed By: #### A MORENA WATERS #### [address] [address] Eosinophils/100 WBC (Bld) 0.0 % Normal 0.0-6.0 [facility] Comment on above: Performed By: #### A MORENA WATERS #### [address] [address] Lymphocyte, Absolute 1.2 10 3/mcL Normal 0.9-4.3 [facility] Comment on above: Performed By: #### A MORENA WATERS #### [address] [address] Lymphocytes/100 WBC (Bld) 11.4 % Low 20.0-40.0 [facility] Comment on above: Performed By: #### A MORENA WATERS #### [address] [address] Monocyte, Absolute 0.9 10 3/mcL Normal 0.1-1.4 [facility] Comment on above: Performed By: #### A MORENA WATERS #### [address] [address] Monocytes/100 WBC (Bld) 8.3 % Normal 2.0-13.0 [facility] Comment on above: Performed By: #### A MORENA WATERS #### [address] [address] Neutrophils/100 WBC (Bld) 80.1 % High 50.0-75.0 [facility] Comment on above: Performed By: #### A MORENA WATERS #### [address] [address] .GFRon 09-28-2025 Estimated Glomerular Filtration Rate 56 ml/min/1.73sqm Normal [facility] Comment on above: Result Comment: Stages of Chronic Kidney Disease (CKD) Stage Description eGFR(ml/min/1.73 sq.m.) CKD 1 Normal kidney function or >=90 normal kindney function with possible kidney damage (ex. Proteinuria) CKD 2 Kidney damage with mild loss 60-89 of kidney function CKD 3a Mild to moderate loss of kidney 45-59 function CKD 3b Moderate to severe loss of 30-44 of kindey function CKD 4 Severe loss of kidney function 15-29 CKD 5 Kidney failure <15 Note: (go live 2025) the eGFR calculation was updated to the 2020 CKD-EPI creatinine equation without a race factor to calculate the eGFR results. Performed By: #### A MORENA WATERS #### [address] [address] .NEUABSon 09-28-2025 Neutrophil, Absolute 8.4 10 3/mcL High 2.3-8.1 [facility] Comment on above: Performed By: #### MORENA CHOPRA #### [address] [address] BMPon 09-28-2025 BUN/Creatinine Ratio 16 ratio Normal 7-27 [facility] Comment on above: Performed By: #### MORENA CHOPRA #### [address] [address] Calcium [Mass/Vol] 8.4 mg/dL Normal 8.4-10.2 [facility] Comment on above: Performed By: #### A MORENA WATERS #### [address] [address] Chloride [Moles/Vol] 105 mmol/L Normal 98-107 [facility] Comment on above: Performed By: #### MORENA CHOPRA #### [address] [address] CO2 [Moles/Vol] 29 mmol/L Normal 23-31 [facility] Comment on above: Performed By: #### A EVELIN ABSGEL #### [address] [address] Creatinine [Mass/Vol] 1.03 mg/dL High 0.51-0.95 [facility] Comment on above: Performed By: #### A EVELIN ABSGEL #### [address] [address] Electrolyte Balance 6.0 mEq/L Normal 4.0-15.0 [facility] Comment on above: Performed By: #### A APRIL WATERSGEL #### [address] [address] Glucose [Mass/Vol] 131 mg/dL High 83-110 [facility] Comment on above: Performed By: #### APRIL CHOPRAGEL #### [address] [address] Potassium [Moles/Vol] 3.8 mmol/L Normal 3.5-5.1 [facility] Comment on above: Performed By: #### A EVELIN ABSGEL #### [address] [address] Sodium [Moles/Vol] 140 mmol/L Normal 136-145 [facility] Comment on above: Performed By: #### Gurjit WATERS ABSGEL #### [address] [address] Urea nitrogen [Mass/Vol] 16 mg/dL Normal 7-18 [facility] Comment on above: Performed By: #### Gurjit WATERS ABSGEL #### [address] [address] CBCon 09-28-2025 Erythrocyte distribution width (RBC) [Ratio] 18.6 % High 11.5-15.5 [facility] Comment on above: Performed By: #### Gurjit WATERS ABSGEL #### [address] [address] Hematocrit (Bld) [Volume fraction] 33.9 % Low 34.0-46.0 [facility] Comment on above: Performed By: #### A MORENA WATERS #### [address] [address] Hgb 11.2 G/dL Low 12.0-16.0 [facility] Comment on above: Performed By: #### A MORENA WATERS #### [address] [address] MCH (RBC) [Entitic mass] 27.9 pg Normal 27.0-33.0 [facility] Comment on above: Performed By: #### A MORENA WATERS #### [address] [address] MCHC 33.0 G/dL Normal 32.0-36.0 [facility] Comment on above: Performed By: #### A MORENA WATERS #### [address] [address] MCV (RBC) [Entitic vol] 84.6 fL Normal 80.0-99.0 [facility] Comment on above: Performed By: #### A MORENA WATERS #### [address] [address] Platelet 309 10 3/mcL Normal 150-450 [facility] Comment on above: Performed By: #### A MORENA WATERS #### [address] [address] Platelet mean volume (Bld) [Entitic vol] 7.8 fL Normal 6.6-10.5 [facility] Comment on above: Performed By: #### A MORENA WATERS #### [address] [address] RBC 4.01 10 6/mcL Low 4.10-5.30 [facility] Comment on above: Performed By: #### A MORENA WATERS #### [address] [address] WBC 10.5 10 3/mcL Normal 4.5-10.8 [facility] Comment on above: Performed By: #### A MORENA WATERS #### Geeta [address] [address] LABORATORYOrdered By: SYSTEM SYSTEM on 09-28-2025 Basophils (Bld) [#/Vol] 0.0 103/mcL Normal 0.0 - 0.3 10^3/mcL AO Workflow SS Basophils/100 WBC (Bld) 0.2 % Normal 0.0 - 2.5 % AO Workflow SS Calcium [Mass/Vol] 8.4 mg/dL Normal 8.4 - 10. 2 mg/dL AO ADM SS Chloride [Moles/Vol] 105 mmol/L Normal 98 - 10 7 mmol/L AO ADM SS CO2 [Moles/Vol] 29 mmol/L Normal 23 - 31 mmol/L AO ADM SS Creatinine [Mass/Vol] 1.03 mg/dL High 0.51 - 0.95 mg/dL AO ADM SS Electrolyte Balance 6.0 mEq/L Normal 4.0 - 15 .0 mEq/L AO ADM SS Eosinophil, Absolute 0.0 103/mcL Normal 0.0 - 0 .7 10^3/mcL AO Workflow SS Eosinophils/100 WBC (Bld) 0.0 % Normal 0.0 - 6.0 % AO Workflow SS Erythrocyte distribution width (RBC) [Ratio] 18.6 % High 11.5 - 15.5 % AO Workflow SS GLOMERULAR FILTRATION RATE/1.73 SQ M.PREDICTED:ARVRAT:PT: SER/PLAS/BLD:QN:CREATI NINE-BASED FORMULA (CKD-EPI 2020) 56 ml/min/1.73sqm Invalid Interpretation Code AO Chemistry S Comment on above: Interpretive Data: Stages of Chronic Kidney Disease (CKD) Stage Description eGFR(ml/min/1.73 sq.m.) CKD 1 Normal kidney function or >=90 normal kindney function with possible kidney damage (ex. Proteinuria) CKD 2 Kidney damage with mild loss 60-89 of kidney function CKD 3a Mild to moderate loss of kidney 45-59 function CKD 3b Moderate to severe loss of 30-44 of kindey function CKD 4 Severe loss of kidney function 15-29 CKD 5 Kidney failure <15 Note: (go live 2025) the eGFR calculation was updated to the 2020 CKD-EPI creatinine equation without a race factor to calculate the eGFR results. Glucose [Mass/Vol] 131 mg/dL High 83 - 110 mg/dL AO ADM SS Hematocrit (Bld) [Volume fraction] 33.9 % Low 34.0 - 46.0 % AO Workflow SS Hemoglobin (Bld) [Mass/Vol] 11.2 G/dL Low 12.0 - 16.0 G/dL AO Workflow SS Lymphocytes (Bld) [#/Vol] 1.2 103/mcL Normal 0.9 - 4.3 10^3/mcL AO Workflow SS Lymphocytes/100 WBC (Bld) 11.4 % Low 20.0 - 40.0 % AO Workflow SS MCH (RBC) [Entitic mass] 27.9 pg Normal 27.0 - 33.0 pg AO Workflow SS MCHC 33.0 G/dL Normal 32.0 - 36.0 G/dL AO Workflow SS MCV (RBC) [Entitic vol] 84.6 fL Normal 80.0 - 99.0 fL AO Workflow SS Monocytes (Bld) [#/Vol] 0.9 103/mcL Normal 0.1 - 1.4 10^3/mcL AO Workflow SS Monocytes/100 WBC (Bld) 8.3 % Normal 2.0 - 13.0 % AO Workflow SS Neutrophils (Bld) [#/Vol] 8.4 103/mcL High 2.3 - 8.1 10^3/mcL AO Workflow SS Neutrophils/100 WBC (Bld) 80.1 % High 50.0 - 75.0 % AO Workflow SS Platelet mean volume (Bld) [Entitic vol] 7.8 fL Normal 6.6 - 10.5 fL AO Workflow SS Platelets (Bld) [#/Vol] 309 103/mcL Normal 150 - 450 10^3/mcL AO Workflow SS Potassium [Moles/Vol] 3.8 mmol/L Normal 3.5 - 5.1 mmol/L AO ADM SS RBC (Bld) [#/Vol] 4.01 106/mcL Low 4.10 - 5.3 0 10^6/mcL AO Workflow SS Sodium [Moles/Vol] 140 mmol/L Normal 136 - 145 mmol/L AO ADM SS Urea nitrogen [Mass/Vol] 16 mg/dL Normal 7 - 18 mg/dL AO ADM SS Urea nitrogen/Creatinine [Mass ratio] 16 ratio Normal 7 - 27 ratio AO ADM SS WBC (Bld) [#/Vol] 10.5 103/mcL Normal 4.5 - 10.8 10^3/mcL AO Workflow SS ABO/Rh (Gel)on 09-27-2025 ABO/Rh Interp Positive Invalid Interpretation Code [facility] Comment on above: Performed By: #### A MORENA WATERS #### [facility] [address] [place], [place] [address] ABS (Gel)on 09-27-2025 ABSC Interp (Gel) Negative Normal [facility] Comment on above: Performed By: #### A MORENA WATERS #### [facility] [address] [place], [place] [address] LABORATORYOrdered By: Sakina Saldaña on 09-27-2025 ABO and Rh group Nom (Bld) Blood group A Rh(D) positive Invalid Interpretation Code AO BB Auto SS Blood group antibody screen Ql Negative ABSC (09/27/25 7:57 AM) Normal AO BB Auto SS XR KNEE 1 OR 2 VIEWS LEFTon 09-27-2025 XR KNEE 1 OR 2 VIEWS LEFT ORIGINAL EXAMINATION: TWO XRAY VIEWS OF THE LEFT KNEE 09/27/2025 11:54 am COMPARISON: None. HISTORY: ORDERING SYSTEM PROVIDED HISTORY: Reason for Exam: Status Post Arthroplasty FINDINGS: Surgical skin bc. Status post left knee arthroplasty, hardware is aligned and intact. Immediate expected postop changes are present including soft tissue swelling subcutaneous and intra-articular gas and joint fluid. No acute fracture. IMPRESSION: Immediate expected postop changes status post left knee arthroplasty. Interpreted by: Kiya Liu Preliminary Report By: Kiya Liu Electronically signed By Kiya Liu Dictated Date: 09/27/2025 12:09:13 PM Prelim Date: 09/27/2025 12:09:50 PM Sign Date: 09/27/2025 12:09:50 PM Ordering Provider: VERONICA CARLISLE Normal [facility] Radiation Oncology Visiton 1 Radiation Oncology Visit Normal [facility] CT KNEE W/O CONTRAST LEFTon 08-30-2025 CT KNEE W/O CONTRAST LEFT ORIGINAL EXAMINATION: CT OF THE LEFT KNEE WITHOUT CONTRAST 08/29/2025 3:02 pm TECHNIQUE: CT of the left knee was performed without the administration of intravenous contrast. Multiplanar reformatted images are provided for review. Automated exposure control, iterative reconstruction, and/or weight based adjustment of the mA/kV was utilized to reduce the radiation dose to as low as reasonably achievable. COMPARISON: None. HISTORY ORDERING SYSTEM PROVIDED HISTORY: Reason for Exam: PRE OP Chronic lt knee pain. No recent injury. CLIVE protocol. FINDINGS: And in severe medial and moderate lateral compartment joint space narrowing. Subchondral sclerosis in the medial compartment. Small tricompartmental marginal osteophytes. Trace effusion. Small amount of fluid in popliteal fossa. Pessary in place. Diverticulosis. No aggressive bone lesion. No soft tissue mass. IMPRESSION: Overall moderate osteoarthritis. Interpreted by: Malvin Zavala Preliminary Report By: Malvin Zavala Electronically signed By Malvin Zavala Dictated Date: 08/30/2025 10:20:08 AM Prelim Date: 08/30/2025 10:25:00 AM Sign Date: 08/30/2025 10:25:00 AM Ordering Provider: VERONICA CARLISLE Normal [facility] .Auto Diffon 08-29-2025 Basophil, Absolute 0.1 10 3/mcL Normal 0.0-0.3 [facility] Comment on above: Performed By: #### A BSGEL, ABOGEL, CBC, ADIFF, ANEU, BMP, ALB, GFR #### [address] [address] Basophils/100 WBC (Bld) 1.0 % Normal 0.0-2.5 [facility] Comment on above: Performed By: #### A BSGEL, ABOGEL, CBC, ADIFF, ANEU, BMP, ALB, GFR #### [address] [address] Eosinophil, Absolute 0.1 10 3/mcL Normal 0.0-0.7 [facility] Comment on above: Performed By: #### A BSGEL, ABOGEL, CBC, ADIFF, ANEU, BMP, ALB, GFR #### [address] [address] Eosinophils/100 WBC (Bld) 1.8 % Normal 0.0-6.0 [facility] Comment on above: Performed By: #### A BSGEL, ABOGEL, CBC, ADIFF, ANEU, BMP, ALB, GFR #### [address] [address] Lymphocyte, Absolute 1.8 10 3/mcL Normal 0.9-4.3 [facility] Comment on above: Performed By: #### A BSGEL, ABOGEL, CBC, ADIFF, ANEU, BMP, ALB, GFR #### [address] [address] Lymphocytes/100 WBC (Bld) 31.6 % Normal 20.0-40.0 [facility] Comment on above: Performed By: #### A BSGEL, ABOGEL, CBC, ADIFF, ANEU, BMP, ALB, GFR #### [address] [address] Monocyte, Absolute 0.4 10 3/mcL Normal 0.1-1.4 [facility] Comment on above: Performed By: #### A BSGEL, ABOGEL, CBC, ADIFF, ANEU, BMP, ALB, GFR #### [address] [address] Monocytes/100 WBC (Bld) 7.7 % Normal 2.0-13.0 [facility] Comment on above: Performed By: #### A BSGEL, ABOGEL, CBC, ADIFF, ANEU, BMP, ALB, GFR #### [address] [address] Neutrophils/100 WBC (Bld) 57.9 % Normal 50.0-75.0 [facility] Comment on above: Performed By: #### A BSGEL, ABOGEL, CBC, ADIFF, ANEU, BMP, ALB, GFR #### [address] [address] .GFRon 08-29-2025 Estimated Glomerular Filtration Rate 45 ml/min/1.73sqm Normal [facility] Comment on above: Result Comment: Stages of Chronic Kidney Disease (CKD) Stage Description eGFR(ml/min/1.73 sq.m.) CKD 1 Normal kidney function or >=90 normal kindney function with possible kidney damage (ex. Proteinuria) CKD 2 Kidney damage with mild loss 60-89 of kidney function CKD 3a Mild to moderate loss of kidney 45-59 function CKD 3b Moderate to severe loss of 30-44 of kindey function CKD 4 Severe loss of kidney function 15-29 CKD 5 Kidney failure <15 Note: (go live 2025) the eGFR calculation was updated to the 2020 CKD-EPI creatinine equation without a race factor to calculate the eGFR results. Performed By: #### A BSGEL, ABOGEL, CBC, ADIFF, ANEU, BMP, ALB, GFR #### [address] [address] .NEUABSon 08-29-2025 Neutrophil, Absolute 3.3 10 3/mcL Normal 2.3-8.1 [facility] Comment on above: Performed By: #### A BSGEL, ABOGEL, CBC, ADIFF, ANEU, BMP, ALB, GFR #### [address] [address] ABO/Rh (Gel)on 08-29-2025 ABO/Rh Interp Positive Invalid Interpretation Code [facility] Comment on above: Order Comment: SURG ASHISH 09/27 -AC Performed By: #### A BSGEL, ABOGEL, CBC, ADIFF, ANEU, BMP, ALB, GFR #### [address] [address] ABS (Gel)on 08-29-2025 ABSC Interp (Gel) Negative Normal [facility] Comment on above: Order Comment: SURG ASHISH 09/27 -AC Performed By: #### A BSGEL, ABOGEL, CBC, ADIFF, ANEU, BMP, ALB, GFR #### [address] [address] ALBon 08-29-2025 Albumin Level 3.5 G/dL Normal 3.4-4.8 [facility] Comment on above: Performed By: #### A BSGEL, ABOGEL, CBC, ADIFF, ANEU, BMP, ALB, GFR #### [address] [place], [place] [address] BMPon 08-29-2025 BUN/Creatinine Ratio 19 ratio Normal 7-27 [facility] Comment on above: Performed By: #### A BSGEL, ABOGEL, CBC, ADIFF, ANEU, BMP, ALB, GFR #### [place] [address] Calcium [Mass/Vol] 8.3 mg/dL Low 8.4-10.2 [facility] Comment on above: Performed By: #### A BSGEL, ABOGEL, CBC, ADIFF, ANEU, BMP, ALB, GFR #### [place] [address] Chloride [Moles/Vol] 105 mmol/L Normal 98-107 [facility] Comment on above: Performed By: #### A BSGEL, ABOGEL, CBC, ADIFF, ANEU, BMP, ALB, GFR #### [place] [address] CO2 [Moles/Vol] 27 mmol/L Normal 23-31 [facility] Comment on above: Performed By: #### A BSGEL, ABOGEL, CBC, ADIFF, ANEU, BMP, ALB, GFR #### [place] [address] Creatinine [Mass/Vol] 1.23 mg/dL High 0.51-0.95 [facility] Comment on above: Performed By: #### A BSGEL, ABOGEL, CBC, ADIFF, ANEU, BMP, ALB, GFR #### [place] [address] Electrolyte Balance 10.0 mEq/L Normal 4.0-15.0 [facility] Comment on above: Performed By: #### A BSGEL, ABOGEL, CBC, ADIFF, ANEU, BMP, ALB, GFR #### [place] [address] Glucose [Mass/Vol] 125 mg/dL High 83-110 [facility] Comment on above: Performed By: #### A BSGEL, ABOGEL, CBC, ADIFF, ANEU, BMP, ALB, GFR #### [place] [id number] Potassium [Moles/Vol] 3.6 mmol/L Normal 3.5-5.1 [facility] Comment on above: Performed By: #### A BSGEL, ABOGEL, CBC, ADIFF, ANEU, BMP, ALB, GFR #### [address] [address] Sodium [Moles/Vol] 142 mmol/L Normal 136-145 [facility] Comment on above: Performed By: #### A BSGEL, ABOGEL, CBC, ADIFF, ANEU, BMP, ALB, GFR #### [address] [address] Urea nitrogen [Mass/Vol] 23 mg/dL High 7-18 [facility] Comment on above: Performed By: #### A BSGEL, ABOGEL, CBC, ADIFF, ANEU, BMP, ALB, GFR #### [address] [address] CBCon 08-29-2025 Erythrocyte distribution width (RBC) [Ratio] 16.9 % High 11.5-15.5 [facility] Comment on above: Order Comment: Pre-A dmission Testing Performed By: #### A BSGEL, ABOGEL, CBC, ADIFF, ANEU, BMP, ALB, GFR #### [address] [address] Hematocrit (Bld) [Volume fraction] 36.6 % Normal 34.0-46.0 [facility] Comment on above: Order Comment: Pre-A dmission Testing Performed By: #### A BSGEL, ABOGEL, CBC, ADIFF, ANEU, BMP, ALB, GFR #### [address] [address] Hgb 12.0 G/dL Normal 12.0-16.0 [facility] Comment on above: Order Comment: Pre-A dmission Testing Performed By: #### A BSGEL, ABOGEL, CBC, ADIFF, ANEU, BMP, ALB, GFR #### [address] [address] MCH (RBC) [Entitic mass] 27.2 pg Normal 27.0-33.0 [facility] Comment on above: Order Comment: Pre-A dmission Testing Performed By: #### A BSGEL, ABOGEL, CBC, ADIFF, ANEU, BMP, ALB, GFR #### [address] [address] MCHC 32.7 G/dL Normal 32.0-36.0 [facility] Comment on above: Order Comment: Pre-A dmission Testing Performed By: #### A BSGEL, ABOGEL, CBC, ADIFF, ANEU, BMP, ALB, GFR #### [address] [address] MCV (RBC) [Entitic vol] 83.2 fL Normal 80.0-99.0 [facility] Comment on above: Order Comment: Pre-A dmission Testing Performed By: #### A BSGEL, ABOGEL, CBC, ADIFF, ANEU, BMP, ALB, GFR #### [address] [address] Platelet 383 10 3/mcL Normal 150-450 [facility] Comment on above: Order Comment: Pre-A dmission Testing Performed By: #### A BSGEL, ABOGEL, CBC, ADIFF, ANEU, BMP, ALB, GFR #### [address] [address] Platelet mean volume (Bld) [Entitic vol] 7.7 fL Normal 6.6-10.5 [facility] Comment on above: Order Comment: Pre-A dmission Testing Performed By: #### A BSGEL, ABOGEL, CBC, ADIFF, ANEU, BMP, ALB, GFR #### [address] [address] RBC 4.40 10 6/mcL Normal 4.10-5.30 [facility] Comment on above: Order Comment: Pre-A dmission Testing Performed By: #### A BSGEL, ABOGEL, CBC, ADIFF, ANEU, BMP, ALB, GFR #### [address] [address] WBC 5.7 10 3/mcL Normal 4.5-10.8 [facility] Comment on above: Order Comment: Pre-A dmission Testing Performed By: #### A BSGEL, ABOGEL, CBC, ADIFF, ANEU, BMP, ALB, GFR #### [facility] [address] [place], [place] [address] LABORATORYOrdered By: Hilaria Goff on 08-29-2025 ABO and Rh group Nom (Bld) Blood group A Rh(D) positive Invalid Interpretation Code AO BB Auto SS Blood group antibody screen Ql Negative ABSC (08/29/25 1:47 PM) Normal AO BB Auto SS LABORATORYOrdered By: SYSTEM SYSTEM on 08-29-2025 Albumin BCP dye [Mass/Vol] 3.5 G/dL Normal 3.4 - 4.8 G/dL AO ADM SS Basophils (Bld) [#/Vol] 0.1 103/mcL Normal 0.0 - 0.3 10^3/mcL AO Workflow SS Basophils/100 WBC (Bld) 1.0 % Normal 0.0 - 2.5 % AO Workflow SS Calcium [Mass/Vol] 8.3 mg/dL Low 8.4 - 10. 2 mg/dL AO ADM SS Chloride [Moles/Vol] 105 mmol/L Normal 98 - 10 7 mmol/L AO ADM SS CO2 [Moles/Vol] 27 mmol/L Normal 23 - 31 mmol/L AO ADM SS Creatinine [Mass/Vol] 1.23 mg/dL High 0.51 - 0.95 mg/dL AO ADM SS Electrolyte Balance 10.0 mEq/L Normal 4.0 - 15 .0 mEq/L AO ADM SS Eosinophil, Absolute 0.1 103/mcL Normal 0.0 - 0 .7 10^3/mcL AO Workflow SS Eosinophils/100 WBC (Bld) 1.8 % Normal 0.0 - 6.0 % AO Workflow SS Erythrocyte distribution width (RBC) [Ratio] 16.9 % High 11.5 - 15.5 % AO Workflow SS Estimated Glomerular Filtration Rate 45 ml/min/1.73sqm Invalid Interpretation Code AO Chemistry S Comment on above: Interpretive Data: Stages of Chronic Kidney Disease (CKD) Stage Description eGFR(ml/min/1.73 sq.m.) CKD 1 Normal kidney function or >=90 normal kindney function with possible kidney damage (ex. Proteinuria) CKD 2 Kidney damage with mild loss 60-89 of kidney function CKD 3a Mild to moderate loss of kidney 45-59 function CKD 3b Moderate to severe loss of 30-44 of kindey function CKD 4 Severe loss of kidney function 15-29 CKD 5 Kidney failure <15 Note: (go live 2025) the eGFR calculation was updated to the 2020 CKD-EPI creatinine equation without a race factor to calculate the eGFR results. Glucose [Mass/Vol] 125 mg/dL High 83 - 110 mg/dL AO ADM SS Hematocrit (Bld) [Volume fraction] 36.6 % Normal 34.0 - 46.0 % AO Workflow SS Hemoglobin (Bld) [Mass/Vol] 12.0 G/dL Normal 12.0 - 16.0 G/dL AO Workflow SS Lymphocytes (Bld) [#/Vol] 1.8 103/mcL Normal 0.9 - 4.3 10^3/mcL AO Workflow SS Lymphocytes/100 WBC (Bld) 31.6 % Normal 20.0 - 40.0 % AO Workflow SS MCH (RBC) [Entitic mass] 27.2 pg Normal 27.0 - 33.0 pg AO Workflow SS MCHC 32.7 G/dL Normal 32.0 - 36.0 G/dL AO Workflow SS MCV (RBC) [Entitic vol] 83.2 fL Normal 80.0 - 99.0 fL AO Workflow SS Monocytes (Bld) [#/Vol] 0.4 103/mcL Normal 0.1 - 1.4 10^3/mcL AO Workflow SS Monocytes/100 WBC (Bld) 7.7 % Normal 2.0 - 13.0 % AO Workflow SS Neutrophils (Bld) [#/Vol] 3.3 103/mcL Normal 2.3 - 8.1 10^3/mcL AO Workflow SS Neutrophils/100 WBC (Bld) 57.9 % Normal 50.0 - 75.0 % AO Workflow SS Platelet mean volume (Bld) [Entitic vol] 7.7 fL Normal 6.6 - 10.5 fL AO Workflow SS Platelets (Bld) [#/Vol] 383 103/mcL Normal 150 - 450 10^3/mcL AO Workflow SS Potassium [Moles/Vol] 3.6 mmol/L Normal 3.5 - 5.1 mmol/L AO ADM SS RBC (Bld) [#/Vol] 4.40 106/mcL Normal 4.10 - 5.3 0 10^6/mcL AO Workflow SS Sodium [Moles/Vol] 142 mmol/L Normal 136 - 145 mmol/L AO ADM SS Urea nitrogen [Mass/Vol] 23 mg/dL High 7 - 18 mg/dL AO ADM SS Urea nitrogen/Creatinine [Mass ratio] 19 ratio Normal 7 - 27 ratio AO ADM SS WBC (Bld) [#/Vol] 5.7 103/mcL Normal 4.5 - 10.8 10^3/mcL AO Workflow SS LABORATORYOrdered By: Shayy Nelson on 08-29-2025 MRSA (PCR) Not Detected 1 (08/29/25 1:47 PM) Normal Not Detected Auto Viro/Sero SS Comment on above: Result Comment: [place] [id number] MRSA PCR Int See Below 2 *NA* (08/29/25 1:47 PM) Invalid Interpretation Code Auto Viro/Sero SS Comment on above: Result Comment: Clinical Interpretation: MRSA DNA not detected by Real-Time Polymerase Chain Reaction (PCR). A negative result may be due to intermittent colonization. Colonization may vary depending on patient treatment, patient status, or exposure to high-risk environments. As with all PCR based in vitro diagnostic tests, extremely low levels of target below the limit of detection of the assay may be detected, but results may not be reproducible. MRSAPCRon 08-29-2025 MRSA (PCR) Not detected Normal Not Detected [facility] Comment on above: Result Comment: [place] [id number] Performed By: #### A MORENA WATERS #### [address] [address] MRSA PCR Int See Below Normal [facility] Comment on above: Result Comment: Clinical Interpretation: MRSA DNA not detected by Real-Time Polymerase Chain Reaction (PCR). A negative result may be due to intermittent colonization. Colonization may vary depending on patient treatment, patient status, or exposure to high-risk environments. As with all PCR based in vitro diagnostic tests, extremely low levels of target below the limit of detection of the assay may be detected, but results may not be reproducible. Performed By: #### A MORENA WATERS #### [id number] [place], [place] [address] Anion gap in Serum or Plasma Ordered By: Rayshawn Chaudhary on 08-11-2025 Anion gap [Moles/Vol] 11 mmol/L 5-15 [facility] BUN/creatinine ratioOrdered By: Rayshawn Chaudhary on 08-11-2025 Urea nitrogen/Creatinine [Mass ratio] 15.3 mg/mg 10-20 [facility] Bilirubin Test strip Ql (U)O rdered By: Rayshawn Chaudhary on 08-11-2025 Bilirubin Ql (U) Negative Negative [facility] Bilirubin, totalOrdered By: Rayshawn Chaudhary on 08-11-2025 Bilirubin [Mass/Vol] 0.44 mg/dL 0.00-1.30 [facility] Calculated very low density lipoprotein (VLDL) cholesterol measurementOrdered By: Rayshawn Chaudhary on 08-11-2025 Calculated very low density lipoprotein (VLDL) cholesterol measurement 30 mg/dL -40 [facility] Carbon dioxide, total [Moles /volume] in Central venous bloodOrdered By: Rayshawn Chaudhary on 08-11-2025 CO2 [Moles/Vol] 26.5 mmol/L 21.0-32.0 [facility] Chloride assayOrdered By: Kaylynn Chaudhary on 08-11-2025 Chloride [Moles/Vol] 103 mmol/L 98-108 [facility] Comprehensive Metabolic Prof ilon 08-11-2025 Albumin/Globulin [Mass ratio] 1.4 {ratio} Normal 0.9-2.4 [facility] Comment on above: Performed By: #### L 501.9520, L500.4100, L4, L500.4050, L502.0250, L501.9985 ####[facility] [address] [place], [address] ALK PHOS 44 U/L Normal 35-104 [facility] Comment on above: Performed By: #### L 501.9520, L500.4100, L400.2010, L500.4050, L502.0250, L501.9985 ####[facility] [address] [place], [address] ALT [Catalytic activity/Vol] 13 U/L Normal <=34 [facility] Comment on above: Performed By: #### L 501.9520, L500.4100, L400, L500.4050, L502.0250, L501.9985 ####[facility] [address] [place], [address] AST [Catalytic activity/Vol] 21 U/L Normal <=31 [facility] Comment on above: Performed By: #### L 501.9520, L500.4100, L400, L500.4050, L502.0250, L501.9985 ####[facility] [address] [place], [address] Bilirubin [Mass/Vol] 0.44 mg/dL Normal 0.00-1.30 [facility] Comment on above: Performed By: #### L 501.9520, L500.4100, L4, L500.4050, L502.0250, L501.9985 ####[facility] [address] [place], [address] Calcium [Mass/Vol] 9.5 mg/dL Normal 7.6-11.0 [facility] Comment on above: Performed By: #### L 501.9520, L500.4100, L4, L500.4050, L502.0250, L501.9985 ####[facility] [address] [place], [address] Chloride [Moles/Vol] 103 mmol/L Normal 98-108 [facility] Comment on above: Performed By: #### L 501.9520, L500.4100, L4, L500.4050, L502.0250, L501.9985 ####[facility] [address] [place], [address] CO2 [Moles/Vol] 26.5 mmol/L Normal 21.0-32.0 [facility] Comment on above: Performed By: #### L 501.9520, L500.4100, L400.2010, L500.4050, L502.0250, L501.9985 ####[facility] [address] [place], [address] GAP 11 Normal 5-15 [facility] Comment on above: Performed By: #### L 501.9520, L500.4100, L400.2010, L500.4050, L502.0250, L501.9985 ####[facility] [address] [place], [address] Globulin (S) [Mass/Vol] 3.1 g/dL Normal 2.2-4.2 [facility] Comment on above: Performed By: #### L 501.9520, L500.4100, L4, L500.4050, L502.0250, L501.9985 ####[facility] [address] [place], [address] Potassium [Moles/Vol] 4.2 mmol/L Normal 3.3-5.1 [facility] Comment on above: Performed By: #### L 501.9520, L500.4100, L400.2010, L500.4050, L502.0250, L501.9985 ####[facility] [address] [place], [address] Sodium [Moles/Vol] 141 mmol/L Normal 133-145 [facility] Comment on above: Performed By: #### L 501.9520, L500.4100, L400.2010, L500.4050, L502.0250, L501.9985 ####[facility] [address] [place], [address] Albumin [Mass/Vol] 4.2 g/dL Normal 3.4-4.8 [facility] Comment on above: Performed By: #### L 501.9520, L500.4100, L400.2010, L500.4050, L502.0250, L501.9985 ####[facility] [address] [place], [address] BUN/CRE 15.3 RATIO Normal 10-20 [facility] Comment on above: Performed By: #### L 501.9520, L500.4100, L4.2010, L500.4050, L502.0250, L501.9985 ####[facility] [address] [place], [address] Creatinine [Mass/Vol] 1.27 mg/dL High 0.70-1.20 [facility] Comment on above: Performed By: #### L 501.9520, L500.4100, L4, L500.4050, L502.0250, L501.9985 ####[facility] [address] [place], [address] GFR/1.73 sq M.predicted among non-blacks MDRD (S/P/Bld) [Vol rate/Area] 43 mL/min/{1.73_m2} Low >60 [facility] Comment on above: Result Comment: mL/m in/1.73m2 CKD-EPI Creatinine Equation (2020) Performed By: #### L 501.9520, L500.4100, L400.2010, L500.4050, L502.0250, L501.9985 ####[facility] [address] [place], [address] Glucose [Mass/Vol] 106 mg/dL High 70-99 [facility] Comment on above: Performed By: #### L 501.9520, L500.4100, L400.2010, L500.4050, L502.0250, L501.9985 ####[facility] [address] [place], [address] T PROT 7.4 g/dL Normal 5.9-8.4 [facility] Comment on above: Performed By: #### L 501.9520, L500.4100, L400.2010, L500.4050, L502.0250, L501.9985 ####[facility] [address] [place], [address] Urea nitrogen [Mass/Vol] 19 mg/dL Normal 4-19 [facility] Comment on above: Performed By: #### L 501.9520, L500.4100, L400.2010, L500.4050, L502.0250, L501.9985 ####[facility] [address] [place], [address] Glomerular filtration rate ( GFR) estimation/1.73 sq m using serum, plasma, or whole bOrdered By: Rayshawn Chaudhary on 08-11-2025 GFR/1.73 sq M.predicted among non-blacks MDRD (S/P/Bld) [Vol rate/Area] 43 mL/min/{1.73_m2} Low >60 [facility] Comment on above: mL/min/1.73m2 CKD-EP I Creatinine Equation (2020) Hemoglobin A1con 08-11-2025 HbA1c (Bld) [Mass fraction] 5.9 % High <=5.6 [facility] Comment on above: Result Comment: Norm al < 5.7 % Prediabetic 5.7 - 6.4 % Diabetic >or= 6.5 % Please note range changes. Performed By: #### L 501.9520, L500.4100, L400.2010, L500.4050, L502.0250, L501.9985 ####[facility] [address] [place], [address] Hemoglobin A1c percentageOrd ered By: Rayshawn Chaudhary on 08-11-2025 HbA1c (Bld) [Mass fraction] 5.9 % High <5.7 [facility] Comment on above: Normal < 5.7 % Predi abetic 5.7 - 6.4 % Diabetic >or= 6.5 % Please note range changes. Ketones Test strip Ql (U)Ord ered By: Rayshawn Chaudhary on 08-11-2025 Ketones Ql (U) Negative Negative [facility] LDL calc ser/plasOrdered By: Rayshawn Chaudhary on 08-11-2025 Cholesterol in LDL [Mass/Vol] 81 mg/dL [facility] Comment on above: Wyqvwigvsg=892-365 m g/dL & Higher Xzrf=898 mg/dL or greaterFriedwald Equation for LDL-C Laboratory - Chemistry and C hemistry - challengeOrdered By: Rayshawn Guzmanam on 08-11-2025 AST [Catalytic activity/Vol] 21 U/L <32 [facility] Lipid Profileon 08-11-2025 CHOL:HDL 2.95 Normal [facility] Comment on above: Performed By: #### L 501.9520, L500.4100, L400.2010, L500.4050, L502.0250, L501.9985 ####[facility] [address] [place], [address] Cholesterol [Mass/Vol] 168 mg/dL Normal <=200 [facility] Comment on above: Result Comment: Chol esterol level, Desirable <200 mg/dLBorderline high cholesterol 200-239 mg/dLHigh cholesterol >=240 mg/dLRecommendations of the NCEP Adult Treatment Panel for thefollowing risk-cutoff thresholds for the [place] Americanpopulation. Performed By: #### L 501.9520, L500.4100, L4, L500.4050, L502.0250, L501.9985 ####[facility] [address] [place], [address] Cholesterol in HDL [Mass/Vol] 57 mg/dL Normal [facility] Comment on above: Result Comment: Tiffanie onal Cholesterol Education Program (NCEP) guidelines:<40 mg/dL: Low HDL-cholesterol (major risk factor for CHD)>= 60 mg/dL: High HDL-cholesterol (negative risk factor forCHD)HDL-cholesterol is affected by a number of factors, e.g.smoking, exercise, hormones, sex and age. Performed By: #### L 501.9520, L500.4100, L400, L500.4050, L502.0250, L501.9985 ####[facility] [address] [place], [address] Cholesterol in LDL [Mass/Vol] 81 mg/dL Normal [facility] Comment on above: Result Comment: Bord ehrmvx=300-494 mg/dL Higher Eibn=039 mg/dL or greaterFriedwald Equation for LDL-C Performed By: #### L 501.9520, L500.4100, L400, L500.4050, L502.0250, L501.9985 ####[facility] [address] [place], [address] Cholesterol in VLDL [Mass/Vol] 30 mg/dL Normal 5-40 [facility] Comment on above: Performed By: #### L 501.9520, L500.4100, L4, L500.4050, L502.0250, L501.9985 ####[facility] [address] [place], [address] Triglyceride [Mass/Vol] 149 mg/dL Normal [facility] Comment on above: Result Comment: The drugs N-Acetylcysteine and Metamizole may falselydepress this assay.Normal range: <150 mg/dLBorderline High: 150-199 mg/dLHigh: 200-499 mg/dLVery High: >500 mg/dL Performed By: #### L 501.9520, L500.4100, L400, L500.4050, L502.0250, L501.9985 ####[facility] [address] [place], [address] Microalb:Creat Ratio,Random URon 08-11-2025 Creatinine [Mass/Vol] 100.00 mg/dL Normal 28.00- 217.0 0 [facility] Comment on above: Performed By: #### L 501.9520, L500.4100, L400.2011, L500.4050, L502.0250, L501.9985 ####[facility] [id number] [place], [address] MALB:CREAT UNABLE TO CALCULATE Normal <30 mg/g CRE [facility] Comment on above: Performed By: #### L 501.9520, L500.4100, L400.2010, L500.4050, L502.0250, L501.9985 ####[facility] [id number] [place], [place], [address] MICROALBUMIN,UR < 12.0 Normal <20 mg/L [facility] Comment on above: Performed By: #### L 501.9520, L500.4100, L400.2010, L500.4050, L502.0250, L501.9985 ####[facility] [address] [facility] [address] [place], [place], [address] Microalbumin/creat ratio urO rdered By: Rayshawn Chaudhary on 08-11-2025 Urine microalbumin/creatinin e ratio measurement UNABLE TO CALCULATE mg/g CRE <30 [facility] Nitrite Test strip Ql (U)Ord ered By: Rayshawn Chaudhary on 08-11-2025 Nitrite Ql (U) Negative Negative [facility] Potassium measurement (mass/ volume)Ordered By: Rayshawn Chaudhary on 08-11-2025 Potassium (Unsp spec) [Mass/Vol] 4.2 mmol/L 3.3-5.1 [facility] Protein Test strip Ql (U)Ord ered By: Rayshawn Chaudhary on 08-11-2025 Protein Ql (U) 15 mg/dl High Negative [facility] Random urine creatinine be urement (mass/volume)Ordered By: Rayshawn Chaudhary on 08-11-2025 Creatinine Unsp time (U) [Mass/Vol] 100.00 mg/dL 28.00-217.0 0 [facility] Screening total cholesterol/ high density lipoprotein (HDL) cholesterol ratioOrdered By: Rayshawn Chaudhary on 08-11-2025 Cholesterol.total/Chol esterol in HDL [Mass ratio] 2.95 {ratio} [facility] Serum creatinine measurement (mass/volume)Ordered By: Rayshawn Chaudhary on 08-11-2025 Creatinine [Mass/Vol] 1.27 mg/dL High 0.70-1.20 [facility] Serum globulin measurementOr dered By: Rayshawn Chaudhary on 08-11-2025 Globulin (S) [Mass/Vol] 3.1 g/dL 2.2-4.2 [facility] Serum glucose measurement (m ass/volume)Ordered By: Rayshawn Chaudhary on 08-11-2025 Glucose [Mass/Vol] 106 mg/dL High 70-99 [facility] Serum or plasma alanine amezcua otransferase (ALT) measurementOrdered By: Rayshawn Chaudhary on 08-11-2025 ALT [Catalytic activity/Vol] 13 U/L <35 [facility] Serum or plasma albumin be urement (mass/volume)Ordered By: Rayshawn Chaudhary on 08-11-2025 Albumin [Mass/Vol] 4.2 g/dL 3.4-4.8 [facility] Serum or plasma albumin/glob ulin mass ratioOrdered By: Rayshawn Chaudhary on 08-11-2025 Albumin/Globulin [Mass ratio] 1.4 {ratio} 0.9-2.4 [facility] Serum or plasma alkaline leonardo sphatase measurementOrdered By: Rayshawn Chaudhary on 08-11-2025 ALP [Catalytic activity/Vol] 44 U/L 35-104 [facility] Serum or plasma calcium be urement (mass/volume)Ordered By: Rayshawn Chaudhary on 08-11-2025 Calcium [Mass/Vol] 9.5 mg/dL 7.6-11.0 [facility] Serum or plasma cholesterol in HDL measurement (mass/volume)Ordered By: Rayshawn Chaudhary on 08-11-2025 Cholesterol in HDL [Mass/Vol] 57 mg/dL >40 [facility] Comment on above: National Cholesterol Education Program (NCEP) guidelines:<40 mg/dL: Low HDL-cholesterol (major risk factor for CHD)>= 60 mg/dL: High HDL-cholesterol (negative risk factor for CHD)HDL-cholesterol is affected by a number of factors, e.g. smoking, exercise, hormones, sex and age. Serum or plasma cholesterol measurement (mass/volume)Ordered By: Rayshawn Chaudhary on 08-11-2025 Cholesterol [Mass/Vol] 168 mg/dL <201 [facility] Comment on above: Cholesterol level, D esirable <200 mg/dLBorderline high cholesterol 200-239 mg/dLHigh cholesterol >=240 mg/dLRecommendations of the NCEP Adult Treatment Panel for the following risk-cutoff thresholds for the [place] population. Serum or plasma urea nitroge n measurement (mass/volume)Ordered By: Rayshawn Chaudhary on 08-11-2025 Urea nitrogen [Mass/Vol] 19 mg/dL 4-19 [facility] Sodium levelOrdered By: Alba Chaudhary on 08-11-2025 Sodium [Moles/Vol] 141 mmol/L 133-145 [facility] TSH DL <= 0.005 mIU/L QnOrde red By: Rayshawn Chaudhary on 08-11-2025 TSH Qn 4.090 uIU/mL 0.300-4.200 [facility] Thyroid Stim Hormone (TSH)on 08-11-2025 TSH 4.090 uIU/mL Normal 0.300-4.200 [facility] Comment on above: Performed By: #### L 501.9520, L500.4100, L400.2011, L500.4050, L502.0250, L501.9985 ####[facility] [address] [place], [address] Total proteinOrdered By: Jacinto Chaudhary on 08-11-2025 Protein [Mass/Vol] 7.4 g/dL 5.9-8.4 [facility] Triglycerides measurementOrd ered By: Rayshawn Chaudhary on 08-11-2025 Triglyceride [Mass/Vol] 149 mg/dL <199 [facility] Comment on above: The drugs N-Acetylcy steine and Metamizole may falsely depress this assay. Normal range: <150 mg/dLBorderline High: 150-199 mg/dLHigh: 200-499 mg/dLVery High: >500 mg/dL Urinalysis, Routine (Dipstic k)on 08-11-2025 BILIRUBIN URINE Negative Normal Negative [facility] Comment on above: Order Comment: CLEAN CATCH Performed By: #### L 501.9520, L500.4100, L400.2011, L500.4050, L502.0250, L501.9985 ####[facility] [address] [place], [address] Clarity (U) Clear Normal Clear [facility] Comment on above: Order Comment: CLEAN CATCH Performed By: #### L 501.9520, L500.4100, L400.2010, L500.4050, L502.0250, L501.9985 ####[facility] [address] [place], [address] Color (U) Yellow Normal Yellow [facility] Comment on above: Order Comment: CLEAN CATCH Performed By: #### L 501.9520, L500.4100, L400.2010, L500.4050, L502.0250, L501.9985 ####[facility] [address] [place], [address] GLUCOSE, UR Normal Normal Normal [facility] Comment on above: Order Comment: CLEAN CATCH Performed By: #### L 501.9520, L500.4100, L400.2010, L500.4050, L502.0250, L501.9985 ####[facility] [address] [place], [address] KETONE UR Negative Normal Negative [facility] Comment on above: Order Comment: CLEAN CATCH Performed By: #### L 501.9520, L500.4100, L400.2010, L500.4050, L502.0250, L501.9985 ####[facility] [address] [place], [address] LEUK ESTERASE 500 /ul Abnormal Negative [facility] Comment on above: Order Comment: CLEAN CATCH Performed By: #### L 501.9520, L500.4100, L400.2010, L500.4050, L502.0250, L501.9985 ####[facility] [address] [place], [address] Nitrite Ql (U) Negative Normal Negative [facility] Comment on above: Order Comment: CLEAN CATCH Performed By: #### L 501.9520, L500.4100, L400.2010, L500.4050, L502.0250, L501.9985 ####[facility] [address] [place], [address] OCCULT BLOOD-UR Negative Normal Negative [facility] Comment on above: Order Comment: CLEAN CATCH Performed By: #### L 501.9520, L500.4100, L400.2010, L500.4050, L502.0250, L501.9985 ####[facility] [address] [place], [address] pH UR 6.0 Normal 5.0 - 8.0 [facility] Comment on above: Order Comment: CLEAN CATCH Performed By: #### L 501.9520, L500.4100, L400.2010, L500.4050, L502.0250, L501.9985 ####[facility] [address] [place], [address] PROT DIPSTX 15 mg/dl Abnormal Negative [facility] Comment on above: Order Comment: CLEAN CATCH Performed By: #### L 501.9520, L500.4100, L400.2010, L500.4050, L502.0250, L501.9985 ####[facility] [address] [place], [address] SP.GR. DIPSTX 1.010 Normal 1.002-1.030 [facility] Comment on above: Order Comment: CLEAN CATCH Performed By: #### L 501.9520, L500.4100, L400.2010, L500.4050, L502.0250, L501.9985 ####[facility] [address] [place], [address] UROBILI Normal Normal Normal [facility] Comment on above: Order Comment: CLEAN CATCH Performed By: #### L 501.9520, L500.4100, L400.2011, L500.4050, L502.0250, L501.9985 ####[facility] [address] [place], [address] Urine albumin measurement wi detection limit of 20 mg/L or less (mass/volume)Ordered By: Rayshawn Chaudhary on 08-11-2025 Albumin DL <= 20 mg/L (U) [Mass/Vol] < 12.0 mg/L <20 mg/L [facility] Urine clarityOrdered By: Jacinto Chaudhary on 08-11-2025 Clarity (U) Clear Clear [facility] Urine color determinationOrd ered By: Rayshawn Chaudhary on 08-11-2025 Color (U) Yellow Yellow [facility] Urine glucose detectionOrder ed By: Rayshawn Chaudhary on 08-11-2025 Glucose Ql (U) Normal mg/dl Normal [facility] Urine leukocyte esterase det ection by dipstickOrdered By: Rayshawn Chaudhary on 08-11-2025 Leukocyte esterase Test strip Ql (U) 500 /ul High Negative [facility] Urine pHOrdered By: Rayshawn Chaudhary on 08-11-2025 pH (U) 6.0 [pH] 5.0 - 8.0 [facility] Urine specific gravity measu rementOrdered By: Rayshawn Chaudhary on 08-11-2025 Specific gravity (U) [Rel density] 1.010 1.002-1.030 [facility] Urine urobilinogen measureme ntOrdered By: Rayshawn Chaudhary on 08-11-2025 Urobilinogen Ql (U) Normal mg/dl Normal [facility] - Chemistry and C hemistry - challengeOrdered By: Dia Villagran on 07-26-2025 Bilirubin Ql (U) Negative [facility] Glucose Ql (U) Negative [facility] Ketones Ql (U) Negative [facility] pH (U) 6 [pH] [facility] Specific gravity (U) [Rel density] 1.025 [facility] Urobilinogen (U) [Mass/Vol] Negative [facility] Laboratory - Hematology and Cell countsOrdered By: Dia Villagran on 07-26-2025 Hemoglobin Ql (U) Negative [facility] Laboratory - UrinalysisOrder ed By: Dia Villagran on 07-26-2025 Nitrite Ql (U) Negative [facility] Protein Ql (U) Trace [facility] MR/BMS.BUSon 07-26-2025 MR/BMS.BUS Normal [facility] No Panel InformationOrdered By: Dia Villagran on 07-26-2025 Urine Leukocytes Positive [facility] Urine Non-Hemolyzed Blood Negative [facility] Anion gap in Serum or Plasma Ordered By: Ximena Stanley on 07-21-2025 Anion gap [Moles/Vol] 12 mmol/L - [facility] BUN/creatinine ratioOrdered By: Ximena Stanley on 07-21-2025 Urea nitrogen/Creatinine [Mass ratio] 15.2 mg/mg - [facility] Basic Metabolic Profile (BMP )on 07-21-2025 BUN/CRE 15.2 RATIO Normal 09-19 [facility] Comment on above: Performed By: #### L 500.2500 ####[facility] [address] [place], [address] Calcium [Mass/Vol] 9.4 mg/dL Normal 7.6-11.0 [facility] Comment on above: Performed By: #### L 500.2500 ####[facility] [address] [place], [address] Chloride [Moles/Vol] 103 mmol/L Normal 98-108 [facility] Comment on above: Performed By: #### L 500.2500 ####[facility] [address] [place], [address] CO2 [Moles/Vol] 23.6 mmol/L Normal 21.0-32.0 [facility] Comment on above: Performed By: #### L 500.2500 ####[facility] [address] [place], [address] Creatinine [Mass/Vol] 1.15 mg/dL Normal 0.70-1.20 [facility] Comment on above: Performed By: #### L 500.2500 ####[facility] [address] [place], [address] ECRCL 38.46 ml/min Low 50-250 [facility] Comment on above: Performed By: #### L 500.2500 ####[facility] [address] [place], [address] GAP 12 Normal 5-15 [facility] Comment on above: Performed By: #### L 500.2500 ####[facility] [address] [place], [address] GFR/1.73 sq M.predicted among non-blacks MDRD (S/P/Bld) [Vol rate/Area] 49 mL/min/{1.73_m2} Low >60 [facility] Comment on above: Result Comment: mL/m in/1.73m2 CKD-EPI Creatinine Equation (2020) Performed By: #### L 500.2500 ####[facility] [address] [place], [address] Glucose [Mass/Vol] 102 mg/dL High 70-99 [facility] Comment on above: Performed By: #### L 500.2500 ####[facility] [address] [place], [address] Potassium [Moles/Vol] 4.3 mmol/L Normal 3.3-5.1 [facility] Comment on above: Performed By: #### L 500.2500 ####[facility] [address] [place], [address] Sodium [Moles/Vol] 138 mmol/L Normal 133-145 [facility] Comment on above: Performed By: #### L 500.2500 ####[facility] [address] [place], [place], [address] Urea nitrogen [Mass/Vol] 18 mg/dL Normal 4-19 [facility] Comment on above: Performed By: #### L 500.2500 ####[facility] [address] [place], [place], [id number] Carbon dioxide, total [Moles /volume] in Central venous bloodOrdered By: iXmena Stanley on 07-21-2025 CO2 [Moles/Vol] 23.6 mmol/L 21.0-32.0 [facility] Chloride assayOrdered By: Pina Stanley on 07-21-2025 Chloride [Moles/Vol] 103 mmol/L 98-108 [facility] Glomerular filtration rate ( GFR) estimation/1.73 sq m using serum, plasma, or whole bOrdered By: Ximena Stanley on 07-21-2025 GFR/1.73 sq M.predicted among non-blacks MDRD (S/P/Bld) [Vol rate/Area] 49 mL/min/{1.73_m2} Low >60 [facility] Comment on above: mL/min/1.73m2 CKD-EP I Creatinine Equation (2020) Oncology Visit Reporton 07-02 Oncology Visit Report Normal [facility] Potassium measurement (mass/ volume)Ordered By: Ximena Stanley on 07-21-2025 Potassium (Unsp spec) [Mass/Vol] 4.3 mmol/L 3.3-5.1 [facility] Serum creatinine measurement (mass/volume)Ordered By: Ximena Stanley on 07-21-2025 Creatinine [Mass/Vol] 1.15 mg/dL 0.70-1.20 [facility] Serum glucose measurement (m ass/volume)Ordered By: Ximena Stanley on 07-21-2025 Glucose [Mass/Vol] 102 mg/dL High 70-99 [facility] Serum or plasma calcium be urement (mass/volume)Ordered By: Ximena Stanley on 07-21-2025 Calcium [Mass/Vol] 9.4 mg/dL 7.6-11.0 [facility] Serum or plasma urea nitroge n measurement (mass/volume)Ordered By: Ximena Lizeth on 07-21-2025 Urea nitrogen [Mass/Vol] 18 mg/dL 4-19 [facility] Sodium levelOrdered By: Marc valadez Lizeth on 07-21-2025 Sodium [Moles/Vol] 138 mmol/L 133-145 [facility] [employer] Office Visit Reporton 07-05-2025 [employer] Office Visit Report Normal [facility] Radiation Oncology Visiton 0 05-26-2025 Radiation Oncology Visit Normal [facility] Stress Test Echo W/Contrasto n 05-23-2025 Stress Test Echo W/Contrast Normal [facility] Stress echocardiogram study reportOrdered By: Luis Calros Zuluaga on 05-23-2025 Stress cardiac echo study report [facility] [address] [place] [address] Stress Test Echo W/Contrast MR#: [id number] Acct: [id number] Name: ALISTAIR ARECHIGA Rep #: [id number] : 1945 79 From: Luis Carlos Zuluaga MD Primary Care: Rayshawn Chaudhary, [facility] Status : REG I Ordering Dr: Rayshawn Chaudhary [employer]ER-C Sex: F C Reason For Study Reason For Study: Chest Pain Stress Results Protocol: Venkat Protocol WITH DEFINITY Maximum Predicted HR: 142 bpm Target HR: 121 bpm % Maximum Predicted HR: 85 % DurationHeart Rate Stage (mm:ss) (bpm) BP Comment Baseline 73 138/86Patient denies chest pain Stage 1 3:00 105 130/72Mild dyspnea. Denies chest pain. Stage 2 2:59 121 138/82Mild to moderate dyspnea. Denies chest pain. Recovery 83 112/80Patient denies chest pain, 2ml totalDefinity used per protocol. Stress Duration: 5:59 mm:ss Maximum Stress HR: 121 bpm Baseline Echocardiogram Findings Stress Echo Wall motion Data Resting WM Intermediate WM Stress WM ECHO/Stress Test Echo W/Contrast Interpretation Summary Exercise stress echo. 79-year-old lady with a history of hypertension. Resting EKG demonstrates sinus rhythm with a rate of 73 bpm premature ventricular complexes noted resting blood pressure is 138/86 mmHg. Patient exercised according to regular Venkat protocol for total duration of 6 minutes the maximum heart rate attained was 122 bpm which was 85% of max impacted heart rate the maximum workload was 7 metabolic equivalents. At rest there were no ST or T wave changes noted suggest ischemia and at peak exercise nonspecific ST changes were noted. Did not meet the criteria for ischemia. Occasional premature ventricular complexwas noted. The peak blood pressure was 158/82 mmHg which was a normal blood pressure response to exercise. Stress echocardiogram. The resting echocardiogram demonstrated an ejection fraction of approximately 60%. With exercise there was thickening of all powell reduction of the ventricular cavity size peaking at 70% no wall motionabnormalities were present. The images were performed with and without Definity enhancement. Conclusion: Stress echocardiogram with no EKG or echocardiographic evidence of ischemia present at a moderate workload. Ordering Physician: Rayshawn Chaudhary Referring Physician: Rayshawn Chaudhary Performed By: Karey Beaulieu RCS 05/23/25 1516 Date _ Luis Carlos Zuluaga MD CC: HARNESS INSTALLERCandida Chaudhary ~ Date Dictated: 05/23/25 1250 Date Transcribed: 05/23/25 1516 Insole Lip Turner: Signed [facility] Work Phone: Folates, (Folic Acid)on 04-02 FOLATES 8.95 ng/mL Normal 4.60-34.80 [facility] Comment on above: Order Comment: N Performed By: #### L 506.0250 ####[facility] [address] [place], [place], [address] Ferritinon 04-26-2025 Ferritin [Mass/Vol] 15 ng/mL Low 22-378 [facility] Comment on above: Performed By: #### L 503.0106, L503.6550, L503.6030 ####[facility] [address] [place], [place], [id number] Iron measurement (mass/mass) Ordered By: Rayshawn Chaudhary on 04-26-2025 Iron (Unsp spec) [Mass/Mass] 66 ug/dL 50-170 [facility] Iron+Iron Binding Capacityon 04-26-2025 TIBC 484 ug/dL High 250-450 [facility] Comment on above: Performed By: #### L 503.0106, L503.6550, L5036030 ####[facility] [address] [place], [place], [id number] No Panel InformationOrdered By: Rayshawn Chaudhary on 04-26-2025 Unsaturated Iron Binding Capacity 418 ug/dL 228-428 [facility] Serum or plasma ferritin mariana surement (mass/volume)Ordered By: Rayshawn Chaudhary on 04-26-2025 Ferritin [Mass/Vol] 15 ng/mL Low 22-378 [facility] Serum or plasma iron saturat ion measurement (mass fraction)Ordered By: Rayshawn Chaudhary on 04-26-2025 Iron saturation [Mass fraction] 13.6 % 13-59 [facility] Comment on above: Previous reported re sult: 14.0 %Edited by: TEMO on 04/26/25:1410 AMENDED REPORT 04/26/25 1410 IRON SATURATION previously reported as: 14.0 % Vitamin B12on 04-26-2025 Cobalamin (Vitamin B12) [Mass/Vol] 323 pg/mL Normal 180-914 [facility] Comment on above: Performed By: #### L 503.0106, L503.6550, L503.6030 ####[facility] [address] [place], [place], [id number] Vitamin B12 ser/plasOrdered By: Rayshawn Chaudhary on 04-26-2025 Cobalamin (Vitamin B12) [Mass/Vol] 323 pg/mL 180-914 [facility] 12 Lead EKGon 04-23-2025 12 Lead EKG Normal [facility] Absolute lymphocyte countOrd ered By: Shaun Noriega on 04-23-2025 Lymphocytes Auto (Unsp spec) [#/Vol] 1.44 10*3/uL 0.83-4.51 [facility] Absolute neutrophil countOrd ered By: [facility] on 04-23-2025 Neutrophils (Bld) [#/Vol] 3.8 10*3/uL 2.0-7.7 [facility] Anion gap in Serum or Plasma Ordered By: Shauntorres Noriega on 04-23-2025 Anion gap [Moles/Vol] 12 mmol/L 5-15 [facility] Automated lymphocyte count a s percentage of total leukocytesOrdered By: Shaun Noriega on 04-23-2025 Lymphocytes/100 WBC Auto (Unsp spec) 24.3 % 19-41 [facility] BUN/creatinine ratioOrdered By: [facility]Ja[facility] on 04-23-2025 Urea nitrogen/Creatinine [Mass ratio] 17.4 mg/mg 10- [facility] Basic Metabolic Profile (BMP )on 04-23-2025 BUN/CRE 17.4 RATIO Normal - [facility] Comment on above: Performed By: #### L 500.2500, L501.4021 ####[facility] [address] [place], [address] Calcium [Mass/Vol] 9.6 mg/dL Normal 7.6-11.0 [facility] Comment on above: Performed By: #### L 500.2500, L501.4021 ####[facility] [address] [place], [address] Chloride [Moles/Vol] 103 mmol/L Normal 98-108 [facility] Comment on above: Performed By: #### L 500.2500, L501.4021 ####[facility] [address] [place], [address] CO2 [Moles/Vol] 24.3 mmol/L Normal 21.0-32.0 [facility] Comment on above: Performed By: #### L 500.2500, L501.4021 ####[facility] [address] [place], [address] Creatinine [Mass/Vol] 1.21 mg/dL High 0.70-1.20 [facility] Comment on above: Performed By: #### L 500.2500, L501.4021 ####[facility] [address] [place], [address] ECRCL 37.26 ml/min Low 50-250 [facility] Comment on above: Performed By: #### L 500.2500, L501.4021 ####[facility] [address] [place], [address] GAP 12 Normal 5-15 [facility] Comment on above: Performed By: #### L 500.2500, L501.4021 ####[facility] [address] [place], [address] GFR/1.73 sq M.predicted among non-blacks MDRD (S/P/Bld) [Vol rate/Area] 46 mL/min/{1.73_m2} Low >60 [facility] Comment on above: Result Comment: mL/m in/1.73m2 CKD-EPI Creatinine Equation (2020) Performed By: #### L 500.2500, L501.4021 ####[facility] [address] [place], [address] Glucose [Mass/Vol] 107 mg/dL High 70-99 [facility] Comment on above: Performed By: #### L 500.2500, L501.4021 ####[facility] [address] [place], [address] Potassium [Moles/Vol] 3.7 mmol/L Normal 3.3-5.1 [facility] Comment on above: Performed By: #### L 500.2500, L501.4021 ####[facility] [address] [place], [address] Sodium [Moles/Vol] 140 mmol/L Normal 133-145 [facility] Comment on above: Performed By: #### L 500.2500, L501.4021 ####[facility] [address] [place], [address] Urea nitrogen [Mass/Vol] 21 mg/dL High 4-19 [facility] Comment on above: Performed By: #### L 500.2500, L501.4021 ####[facility] [address] [place], [address] BUN Normal 4-19 [facility] Comment on above: Result Comment: MOVE D TO DIFFERENT ORDER Performed By: #### L 100.0100, L500.2500 ####[facility] [address] [place], [address] BUN/CRE Normal 10-20 [facility] Comment on above: Result Comment: MOVE D TO DIFFERENT ORDER Performed By: #### L 100.0100, L500.2500 ####[facility] [address] [place], [address] Calcium Normal 7.6-11.0 [facility] Comment on above: Result Comment: MOVE D TO DIFFERENT ORDER Performed By: #### L 100.0100, L500.2500 ####[facility] [address] [place], [address] CL Normal 98-108 [facility] Comment on above: Result Comment: MOVE D TO DIFFERENT ORDER Performed By: #### L 100.0100, L500.2500 ####[facility] [address] [place], [address] CO2 Normal 21.0-32.0 [facility] Comment on above: Result Comment: MOVE D TO DIFFERENT ORDER Performed By: #### L 100.0100, L500.2500 ####[facility] [address] [place], [address] CREAT,SERUM Normal 0.70-1.20 [facility] Comment on above: Result Comment: MOVE D TO DIFFERENT ORDER Performed By: #### L 100.0100, L500.2500 ####[facility] [address] [place], [address] eGFR Normal >60 [facility] Comment on above: Result Comment: MOVE D TO DIFFERENT ORDER Performed By: #### L 100.0100, L500.2500 ####[facility] [address] [place], [address] GAP Normal 5-15 [facility] Comment on above: Result Comment: MOVE D TO DIFFERENT ORDER Performed By: #### L 100.0100, L500.2500 ####[facility] [address] [place], [address] GLU Normal 70-99 [facility] Comment on above: Result Comment: MOVE D TO DIFFERENT ORDER Performed By: #### L 100.0100, L500.2500 ####[facility] [address] [place], [address] Potassium Normal 3.3-5.1 [facility] Comment on above: Result Comment: MOVE D TO DIFFERENT ORDER Performed By: #### L 100.0100, L500.2500 ####[facility] [address] [place], [address] Basic Metabolic Profile (BMP) Normal 133-145 [facility] Comment on above: Result Comment: MOVE D TO DIFFERENT ORDER Performed By: #### L 100.0100, L500.2500 ####[facility] [address] [place], [address] Basophil percentageOrdered B y: Shaun Noriega on 04-23-2025 Basophils/100 WBC (Bld) 1.0 % 0-1 [facility] Brain/Head without Contrasto n 04-23-2025 Brain/Head without Contrast Normal [facility] CBC W/Diff, Automatedon 04-01 Absolute Lymph 1.44 X10 3/uL Normal 0.83-4.51 [facility] Comment on above: Performed By: #### L 100.0100, L500.2500 ####[facility] [address] [place], [address] Absolute Neut 3.8 X10 3/uL Normal 2.0-7.7 [facility] Comment on above: Performed By: #### L 100.0100, L500.2500 ####[facility] [address] [place], [address] Basophils/100 WBC (Bld) 1.0 % Normal 0-1 [facility] Comment on above: Performed By: #### L 100.0100, L500.2500 ####[facility] [address] [place], [address] Eosinophils/100 WBC (Bld) 1.5 % Normal 0-5 [facility] Comment on above: Performed By: #### L 100.0100, L500.2500 ####[facility] [address] [place], [address] Erythrocyte distribution width (RBC) [Ratio] 15.4 % High 11.6-14.6 [facility] Comment on above: Performed By: #### L 100.0100, L500.2500 ####[facility] [address] [place], [address] Hematocrit (Bld) [Volume fraction] 36.7 % Low 37-47 [facility] Comment on above: Performed By: #### L 100.0100, L500.2500 ####[facility] [address] [place], [address] Hemoglobin (Bld) [Mass/Vol] 11.4 g/dL Low 12.0-15.0 [facility] Comment on above: Performed By: #### L 100.0100, L500.2500 ####[facility] [address] [place], [address] IG% 0.300 Normal 0.0-0.9 [facility] Comment on above: Result Comment: IG% - Immature Granulocytes (promyelocytes, myelocytes andmetamyelocytes) > 1% indicates that a LEFT SHIFT is Present. Performed By: #### L 100.0100, L500.2500 ####[facility] [address] [place], [address] Lymphocytes/100 WBC (Bld) 24.3 % Normal 19-41 [facility] Comment on above: Performed By: #### L 100.0100, L500.2500 ####[facility] [address] [place], [address] MCH (RBC) [Entitic mass] 25.3 pg Low 27.0-32.0 [facility] Comment on above: Performed By: #### L 100.0100, L500.2500 ####[facility] [address] [place], [address] MCHC (RBC) [Mass/Vol] 31.1 g/dL Low 32-36 [facility] Comment on above: Performed By: #### L 100.0100, L500.2500 ####[facility] [address] [place], [address] MCV (RBC) [Entitic vol] 81.6 fL Normal 81-99 [facility] Comment on above: Performed By: #### L 100.0100, L500.2500 ####[facility] [address] [place], [address] Monocytes/100 WBC (Bld) 9.1 % Normal 0-10 [facility] Comment on above: Performed By: #### L 100.0100, L500.2500 ####[facility] [address] [place], [address] Neutrophils/100 WBC (Bld) 63.8 % Normal 47-70 [facility] Comment on above: Performed By: #### L 100.0100, L500.2500 ####[facility] [address] [place], [address] Nucleated RBC (Bld) [#/Vol] 0 10*3/uL Normal 0-5 [facility] Comment on above: Performed By: #### L 100.0100, L500.2500 ####[facility] [address] [place], [address] Platelet mean volume (Bld) [Entitic vol] 9.1 fL Normal 6.2-12.0 [facility] Comment on above: Performed By: #### L 100.0100, L500.2500 ####[facility] [address] [place], [address] Platelets (Bld) [#/Vol] 375 10*3/uL Normal 150-450 [facility] Comment on above: Performed By: #### L 100.0100, L500.2500 ####[facility] [address] [place], [address] RBC (Bld) [#/Vol] 4.50 10*6/uL Normal 4.2-5.4 [facility] Comment on above: Performed By: #### L 100.0100, L500.2500 ####[facility] [address] [place], [address] RDW SD 45.6 fl High 35.1-43.9 [facility] Comment on above: Performed By: #### L 100.0100, L500.2500 ####[facility] [address] [place], [address] WBC (Bld) [#/Vol] 5.9 10*3/uL Normal 4.4-11.0 [facility] Comment on above: Performed By: #### L 100.0100, L500.2500 ####[facility] [address] [place], [address] Carbon dioxide, total [Moles /volume] in Central venous bloodOrdered By: Shaun Noriega on 04-23-2025 CO2 [Moles/Vol] 24.3 mmol/L 21.0-32.0 [facility] Chest PA and Lateralon 04-23 Chest PA and Lateral Normal [facility] Chloride assayOrdered By: Clint Noriega on 04-23-2025 Chloride [Moles/Vol] 103 mmol/L 98-108 [facility] Emergency Department Summary on 04-23-2025 Emergency Department Summary Normal [facility] Eosinophil percentageOrdered By: Shaun Noriega on 04-23-2025 Eosinophils/100 WBC (Bld) 1.5 % 0-5 [facility] Erythrocyte distribution wid th ratioOrdered By: Shaun Noriega on 04-23-2025 Erythrocyte distribution width (RBC) [Ratio] 15.4 % High 11.6-14.6 [facility] Erythrocyte distribution wid th standard deviationOrdered By: Shaun Singh on 04-23-2025 Erythrocyte distribution width (RBC) [Ratio] 45.6 fl High 35.1-43.9 [facility] Glomerular filtration rate ( GFR) estimation/1.73 sq m using serum, plasma, or whole bOrdered By: Shaun Noriega on 04-23-2025 GFR/1.73 sq M.predicted among non-blacks MDRD (S/P/Bld) [Vol rate/Area] 46 mL/min/{1.73_m2} Low >60 [facility] Comment on above: mL/min/1.73m2 CKD-EP I Creatinine Equation (2020) Hematocrit Auto (Bld) [Volum e fraction]Ordered By: Shaun Noriega on 04-23-2025 Hematocrit (Bld) [Volume fraction] 36.7 % Low 37-47 [facility] Hemoglobin measurementOrdere d By: Shaun Noriega on 04-23-2025 Hemoglobin (Bld) [Mass/Vol] 11.4 g/dL Low 12.0-15.0 [facility] Immature granulocytes/100 WB C Auto (Bld)Ordered By: [facility] on 04-23-2025 Immature granulocytes/100 WBC (Bld) 0.300 % 0.0-0.9 [facility] Comment on above: IG% - Immature Granu locytes (promyelocytes, myelocytes and metamyelocytes) > 1% indicates that a LEFT SHIFT is Present. L501.4021on 04-23-2025 Trop T High Sen 11 ng/L Normal <=14 [facility] Comment on above: Performed By: #### L 500.2500, L501.4021 ####[facility] [address] [place], [address] MCV (mean corpuscular volume ) determinationOrdered By: Shaun Noriega on 04-23-2025 MCV (RBC) [Entitic vol] 81.6 fL 81-99 [facility] Mean corpuscular hemoglobin (MCH) determinationOrdered By: Shaun Noriega on 04-23-2025 MCH (RBC) [Entitic mass] 25.3 pg Low 27.0-32.0 [facility] Mean corpuscular hemoglobin concentration (MCHC) determinationOrdered By: Shaun Noriega on 04-23-2025 MCHC (RBC) [Mass/Vol] 31.1 g/dL Low 32-36 [facility] Mean platelet volume determi nationOrdered By: Shaun Noriega on 04-23-2025 Platelet mean volume (Bld) [Entitic vol] 9.1 fL 6.2-12.0 [facility] Monocyte percentageOrdered B y: Shaun Noriega on 04-23-2025 Monocytes/100 WBC (Bld) 9.1 % 0-10 [facility] Neutrophil percentageOrdered By: Shaun Noriega on 04-23-2025 Neutrophils/100 WBC (Bld) 63.8 % 47-70 [facility] Nucleated red blood cell per centageOrdered By: Shaun Noriega on 04-23-2025 Nucleated RBC/100 WBC (Bld) [Ratio] 0 % 0-5 [facility] Platelet countOrdered By: Clint Noriega on 04-23-2025 Platelets (Bld) [#/Vol] 375 10*3/uL 150-450 [facility] Potassium measurement (mass/ volume)Ordered By: Shaun Noriega on 04-23-2025 Potassium (Unsp spec) [Mass/Vol] 3.7 mmol/L 3.3-5.1 [facility] RBC Auto (Bld) [#/Vol]Ordere d By: Shaun Noriega on 04-23-2025 RBC (Bld) [#/Vol] 4.50 10*6/uL 4.2-5.4 [facility] Serum creatinine measurement (mass/volume)Ordered By: Shaun Noriega on 04-23-2025 Creatinine [Mass/Vol] 1.21 mg/dL High 0.70-1.20 [facility] Serum glucose measurement (m ass/volume)Ordered By: Shaun Noriega on 04-23-2025 Glucose [Mass/Vol] 107 mg/dL High 70-99 [facility] Serum or plasma calcium be urement (mass/volume)Ordered By: Shaun Singh on 04-23-2025 Calcium [Mass/Vol] 9.6 mg/dL 7.6-11.0 [facility] Serum or plasma urea nitroge n measurement (mass/volume)Ordered By: Shaun Noriega on 04-23-2025 Urea nitrogen [Mass/Vol] 21 mg/dL High 4-19 [facility] Sodium levelOrdered By: Guero Noriega on 04-23-2025 Sodium [Moles/Vol] 140 mmol/L 133-145 [facility] Troponin T.cardiac [Mass/vol ume] in Serum or Plasma by High sensitivity methodOrdered By: Shaun Noriega on 04-23-2025 Troponin T.cardiac High sensitivity method [Mass/Vol] 11 ng/L <14 [facility] Comment on above: Delta: 10 on 5-131 White blood cell (WBC) count Ordered By: Shaun Noriega on 04-23-2025 WBC (Bld) [#/Vol] 5.9 10*3/uL 4.4-11.0 [facility] Oncology Visit Reporton 04-01 Oncology Visit Report Normal [facility] Radiation Oncology Visiton 0 04-20-2025 Radiation Oncology Visit Normal [facility] Radiation Oncology Visit Normal [facility] Emergency Department Summary on 04-11-2025 Emergency Department Summary Normal [facility] Emergency Department Summary on 04-07-2025 Emergency Department Summary Normal [facility] 12 Lead EKGon 04-04-2025 12 Lead EKG Normal [facility] 12 Lead EKG Normal [facility] Absolute lymphocyte countOrd ered By: Margoth Villalpando on 04-04-2025 Lymphocytes Auto (Unsp spec) [#/Vol] 1.47 10*3/uL 0.83-4.51 [facility] Absolute neutrophil countOrd ered By: Margoth Villalpando on 04-04-2025 Neutrophils (Bld) [#/Vol] 4.4 10*3/uL 2.0-7.7 [facility] Anion gap in Serum or Plasma Ordered By: Margoth Villalpando on 04-04-2025 Anion gap [Moles/Vol] 12 mmol/L - [facility] Automated lymphocyte count a s percentage of total leukocytesOrdered By: Margoth Villalpando on 04-04-2025 Lymphocytes/100 WBC Auto (Unsp spec) 23.2 % -41 [facility] BUN/creatinine ratioOrdered By: Margoth Villalpando on 04-04-2025 Urea nitrogen/Creatinine [Mass ratio] 13.7 mg/mg - [facility] Basic Metabolic Profile (BMP )on 04-04-2025 BUN/CRE 13.7 RATIO Normal 09-19 [facility] Comment on above: Performed By: #### L 500.2500, L501.4021, L501.9520, L501.5200, L300.8000, L100.0100 ####[facility] [address] [place], [address] Calcium [Mass/Vol] 9.1 mg/dL Normal 7.6-11.0 [facility] Comment on above: Performed By: #### L 500.2500, L501.4021, L501.9520, L501.5200, L300.8000, L100.0100 ####[facility] [address] [place], [address] Chloride [Moles/Vol] 105 mmol/L Normal 98-108 [facility] Comment on above: Performed By: #### L 500.2500, L501.4021, L501.9520, L501.5200, L300.8000, L100.0100 ####[facility] [address] [place], [address] CO2 [Moles/Vol] 23.2 mmol/L Normal 21.0-32.0 [facility] Comment on above: Performed By: #### L 500.2500, L501.4021, L501.9520, L501.5200, L300.8000, L100.0100 ####[facility] [address] [place], [address] Creatinine [Mass/Vol] 1.22 mg/dL High 0.70-1.20 [facility] Comment on above: Performed By: #### L 500.2500, L501.4021, L501.9520, L501.5200, L300.8000, L100.0100 ####[facility] [address] [place], [address] ECRCL 36.60 ml/min Low 50-250 [facility] Comment on above: Performed By: #### L 500.2500, L501.4021, L501.9520, L501.5200, L300.8000, L100.0100 ####[facility] [address] [place], [address] GAP 12 Normal 5-15 [facility] Comment on above: Performed By: #### L 500.2500, L501.4021, L501.9520, L501.5200, L300.8000, L100.0100 ####[facility] [address] [place], [address] GFR/1.73 sq M.predicted among non-blacks MDRD (S/P/Bld) [Vol rate/Area] 45 mL/min/{1.73_m2} Low >60 [facility] Comment on above: Result Comment: mL/m in/1.73m2 CKD-EPI Creatinine Equation (2020) Performed By: #### L 500.2500, L501.4021, L501.9520, L501.5200, L300.8000, L100.0100 ####[facility] [address] [place], [address] Glucose [Mass/Vol] 130 mg/dL High 70-99 [facility] Comment on above: Performed By: #### L 500.2500, L501.4021, L501.9520, L501.5200, L300.8000, L100.0100 ####[facility] [address] [place], [address] Potassium [Moles/Vol] 3.7 mmol/L Normal 3.3-5.1 [facility] Comment on above: Performed By: #### L 500.2500, L501.4021, L501.9520, L501.5200, L300.8000, L100.0100 ####[facility] [address] [place], [address] Sodium [Moles/Vol] 140 mmol/L Normal 133-145 [facility] Comment on above: Performed By: #### L 500.2500, L501.4021, L501.9520, L501.5200, L300.8000, L100.0100 ####[facility] [address] [place], [address] Urea nitrogen [Mass/Vol] 17 mg/dL Normal 4-19 [facility] Comment on above: Performed By: #### L 500.2500, L501.4021, L501.9520, L501.5200, L300.8000, L100.0100 ####[facility] [address] [place], [address] Basophil percentageOrdered B y: Margoth Villalpando on 04-04-2025 Basophils/100 WBC (Bld) 0.8 % 0-1 [facility] CBC W/Diff, Automatedon Absolute Lymph 1.47 X10 3/uL Normal 0.83-4.51 [facility] Comment on above: Performed By: #### L 500.2500, L501.4021, L501.9520, L501.5200, L300.8000, L100.0100 ####[facility] [address] [place], [address] Absolute Neut 4.4 X10 3/uL Normal 2.0-7.7 [facility] Comment on above: Performed By: #### L 500.2500, L501.4021, L501.9520, L501.5200, L300.8000, L100.0100 ####[facility] [address] [place], [address] Basophils/100 WBC (Bld) 0.8 % Normal 0-1 [facility] Comment on above: Performed By: #### L 500.2500, L501.4021, L501.9520, L501.5200, L300.8000, L100.0100 ####[facility] [address] [place], [address] Eosinophils/100 WBC (Bld) 0.8 % Normal 0-5 [facility] Comment on above: Performed By: #### L 500.2500, L501.4021, L501.9520, L501.5200, L300.8000, L100.0100 ####[facility] [address] [place], [address] Erythrocyte distribution width (RBC) [Ratio] 16.4 % High 11.6-14.6 [facility] Comment on above: Performed By: #### L 500.2500, L501.4021, L501.9520, L501.5200, L300.8000, L100.0100 ####[facility] [address] [place], [address] Hematocrit (Bld) [Volume fraction] 34.8 % Low 37-47 [facility] Comment on above: Performed By: #### L 500.2500, L501.4021, L501.9520, L501.5200, L300.8000, L100.0100 ####[facility] [address] [place], [address] Hemoglobin (Bld) [Mass/Vol] 10.8 g/dL Low 12.0-15.0 [facility] Comment on above: Performed By: #### L 500.2500, L501.4021, L501.9520, L501.5200, L300.8000, L100.0100 ####[facility] [address] [place], [address] IG% 0.200 Normal 0.0-0.9 [facility] Comment on above: Result Comment: IG% - Immature Granulocytes (promyelocytes, myelocytes andmetamyelocytes) > 1% indicates that a LEFT SHIFT is Present. Performed By: #### L 500.2500, L501.4021, L501.9520, L501.5200, L300.8000, L100.0100 ####[facility] [address] [place], [address] Lymphocytes/100 WBC (Bld) 23.2 % Normal 19-41 [facility] Comment on above: Performed By: #### L 500.2500, L501.4021, L501.9520, L501.5200, L300.8000, L100.0100 ####[facility] [address] [place], [address] MCH (RBC) [Entitic mass] 25.1 pg Low 27.0-32.0 [facility] Comment on above: Performed By: #### L 500.2500, L501.4021, L501.9520, L501.5200, L300.8000, L100.0100 ####[facility] [address] [place], [address] MCHC (RBC) [Mass/Vol] 31.0 g/dL Low 32-36 [facility] Comment on above: Performed By: #### L 500.2500, L501.4021, L501.9520, L501.5200, L300.8000, L100.0100 ####[facility] [address] [place], [address] MCV (RBC) [Entitic vol] 80.9 fL Low 81-99 [facility] Comment on above: Performed By: #### L 500.2500, L501.4021, L501.9520, L501.5200, L300.8000, L100.0100 ####[facility] [address] [place], [address] Monocytes/100 WBC (Bld) 6.0 % Normal 0-10 [facility] Comment on above: Performed By: #### L 500.2500, L501.4021, L501.9520, L501.5200, L300.8000, L100.0100 ####[facility] [address] [place], [address] Neutrophils/100 WBC (Bld) 69.0 % Normal 47-70 [facility] Comment on above: Performed By: #### L 500.2500, L501.4021, L501.9520, L501.5200, L300.8000, L100.0100 ####[facility] [address] [place], [address] Nucleated RBC (Bld) [#/Vol] 0 10*3/uL Normal 0-5 [facility] Comment on above: Performed By: #### L 500.2500, L501.4021, L501.9520, L501.5200, L300.8000, L100.0100 ####[facility] [address] [place], [address] Platelet mean volume (Bld) [Entitic vol] 9.5 fL Normal 6.2-12.0 [facility] Comment on above: Performed By: #### L 500.2500, L501.4021, L501.9520, L501.5200, L300.8000, L100.0100 ####[facility] [address] [place], [address] Platelets (Bld) [#/Vol] 371 10*3/uL Normal 150-450 [facility] Comment on above: Performed By: #### L 500.2500, L501.4021, L501.9520, L501.5200, L300.8000, L100.0100 ####[facility] [address] [place], [address] RBC (Bld) [#/Vol] 4.30 10*6/uL Normal 4.2-5.4 [facility] Comment on above: Performed By: #### L 500.2500, L501.4021, L501.9520, L501.5200, L300.8000, L100.0100 ####[facility] [address] [place], [address] RDW SD 48.1 fl High 35.1-43.9 [facility] Comment on above: Performed By: #### L 500.2500, L501.4021, L501.9520, L501.5200, L300.8000, L100.0100 ####[facility] [address] [place], [address] WBC (Bld) [#/Vol] 6.3 10*3/uL Normal 4.4-11.0 [facility] Comment on above: Performed By: #### L 500.2500, L501.4021, L501.9520, L501.5200, L300.8000, L100.0100 ####[facility] [address] [place], [address] Carbon dioxide, total [Moles /volume] in Central venous bloodOrdered By: Margoth Villalpando on 04-04-2025 CO2 [Moles/Vol] 23.2 mmol/L 21.0-32.0 [facility] Chest PA and Lateralon 04-04 Chest PA and Lateral Normal [facility] Chloride assayOrdered By: Fransisco Villalpando on 04-04-2025 Chloride [Moles/Vol] 105 mmol/L 98-108 [facility] D-Dimer Quantitative (DVT/PE )on 04-04-2025 D-DIMER QUANT 0.53 FEU/ug/m Invalid Interpretation Code 0.27-0.49 [facility] Comment on above: Result Comment: D-Di kiran ELEVATED (>0.49): Additional studies and clinicalassessments are indicated to conclude diagnosis of:Deep Vein Thrombosis (DVT) or Pulmonary Embolism (PE)CRITICAL VALUE CALLED TO [id number]/05/25 1402 Abby Clapper.RESULTS READ BACK BY SAME. Performed By: #### L 500.2500, L501.4021, L501.9520, L501.5200, L300.8000, L100.0100 ####[facility] [address] [place], [address] Emergency Department Summary on 04-04-2025 Emergency Department Summary Normal [facility] Eosinophil percentageOrdered By: Margoth Villalpando on 04-04-2025 Eosinophils/100 WBC (Bld) 0.8 % 0-5 [facility] Erythrocyte distribution wid th ratioOrdered By: Margothbeka Villalpando on 04-04-2025 Erythrocyte distribution width (RBC) [Ratio] 16.4 % High 11.6-14.6 [facility] Erythrocyte distribution wid th standard deviationOrdered By: Margoth Villalpando on 04-04-2025 Erythrocyte distribution width (RBC) [Ratio] 48.1 fl High 35.1-43.9 [facility] Glomerular filtration rate ( GFR) estimation/1.73 sq m using serum, plasma, or whole bOrdered By: Margoth Villalpando on 04-04-2025 GFR/1.73 sq M.predicted among non-blacks MDRD (S/P/Bld) [Vol rate/Area] 45 mL/min/{1.73_m2} Low >60 [facility] Comment on above: mL/min/1.73m2 CKD-EP I Creatinine Equation (2020) Hematocrit Auto (Bld) [Volum e fraction]Ordered By: Margoth Villalpando on 04-04-2025 Hematocrit (Bld) [Volume fraction] 34.8 % Low 37-47 [facility] Hemoglobin measurementOrdere d By: Margoth Villalpando on 04-04-2025 Hemoglobin (Bld) [Mass/Vol] 10.8 g/dL Low 12.0-15.0 [facility] Immature granulocytes/100 WB C Auto (Bld)Ordered By: Margoth Villalpando on 04-04-2025 Immature granulocytes/100 WBC (Bld) 0.200 % 0.0-0.9 [facility] Comment on above: IG% - Immature Granu locytes (promyelocytes, myelocytes and metamyelocytes) > 1% indicates that a LEFT SHIFT is Present. L499.0042on 04-04-2025 Trop T High Sen 11 ng/L Normal <=14 [facility] Comment on above: Performed By: #### L 499.0042 ####[facility] [address] [place], [address] L499.0043on 04-04-2025 Trop T High Sen Normal <=14 [facility] Comment on above: Result Comment: Canc elled via OM: Order cancelled - Patient discharged Performed By: #### L 499.0043 ####[facility] [address] [place], [address] L501.4021on 04-04-2025 Trop T High Sen 10 ng/L Normal <=14 [facility] Comment on above: Performed By: #### L 500.2500, L501.4021, L501.9520, L501.5200, L300.8000, L100.0100 ####[facility] [address] [place], [address] MCV (mean corpuscular volume ) determinationOrdered By: Margoth Villalpando on 04-04-2025 MCV (RBC) [Entitic vol] 80.9 fL Low 81-99 [facility] Magnesiumon 04-04-2025 Magnesium [Mass/Vol] 2.1 mg/dL Normal 1.5-2.2 [facility] Comment on above: Performed By: #### L 500.2500, L501.4021, L501.9520, L501.5200, L300.8000, L100.0100 ####[facility] [address] [place], [address] Magnesium measurement (mass/ volume)Ordered By: Margoth Villalpando on 04-04-2025 Magnesium (Unsp spec) [Mass/Vol] 2.1 mg/dL 1.5-2.2 [facility] Mean corpuscular hemoglobin (MCH) determinationOrdered By: Margoth Villalpando on 04-04-2025 MCH (RBC) [Entitic mass] 25.1 pg Low 27.0-32.0 [facility] Mean corpuscular hemoglobin concentration (MCHC) determinationOrdered By: Margoth Villalpando on 04-04-2025 MCHC (RBC) [Mass/Vol] 31.0 g/dL Low 32-36 [facility] Mean platelet volume determi nationOrdered By: Margoth Villalpando on 04-04-2025 Platelet mean volume (Bld) [Entitic vol] 9.5 fL 6.2-12.0 [facility] Monocyte percentageOrdered B y: Margoth Villalpando on 04-04-2025 Monocytes/100 WBC (Bld) 6.0 % 0-10 [facility] Neutrophil percentageOrdered By: Margoth Villalpando on 04-04-2025 Neutrophils/100 WBC (Bld) 69.0 % 47-70 [facility] Nucleated red blood cell per centageOrdered By: Margoth Villalpando on 04-04-2025 Nucleated RBC/100 WBC (Bld) [Ratio] 0 % 0-5 [facility] [employer] Office Visit Reporton 04-04-2025 [employer] Office Visit Report Normal [facility] Platelet countOrdered By: Fransisco Villalpando on 04-04-2025 Platelets (Bld) [#/Vol] 371 10*3/uL 150-450 [facility] Potassium measurement (mass/ volume)Ordered By: Margoth Villalpando on 04-04-2025 Potassium (Unsp spec) [Mass/Vol] 3.7 mmol/L 3.3-5.1 [facility] RBC Auto (Bld) [#/Vol]Ordere d By: Margoth Villalpando on 04-04-2025 RBC (Bld) [#/Vol] 4.30 10*6/uL 4.2-5.4 [facility] Serum creatinine measurement (mass/volume)Ordered By: Margoth Villalpando on 04-04-2025 Creatinine [Mass/Vol] 1.22 mg/dL High 0.70-1.20 [facility] Serum glucose measurement (m ass/volume)Ordered By: Margoth Villalpando on 04-04-2025 Glucose [Mass/Vol] 130 mg/dL High 70-99 [facility] Serum or plasma calcium be urement (mass/volume)Ordered By: Margoth Villalpando on 04-04-2025 Calcium [Mass/Vol] 9.1 mg/dL 7.6-11.0 [facility] Serum or plasma urea nitroge n measurement (mass/volume)Ordered By: Margoth Villalpando on 04-04-2025 Urea nitrogen [Mass/Vol] 17 mg/dL 4- [facility] Sodium levelOrdered By: Juan Alberto Villalpando on 04-04-2025 Sodium [Moles/Vol] 140 mmol/L 133-145 [facility] TSH DL <= 0.005 mIU/L QnOrde red By: Margoth Villalpando on 04-04-2025 TSH Qn 3.490 uIU/mL 0.300-4.200 [facility] Thyroid Stim Hormone (TSH)on 04-04-2025 TSH 3.490 uIU/mL Normal 0.300-4.200 [facility] Comment on above: Performed By: #### L 500.2500, L501.4021, L501.9520, L501.5200, L300.8000, L100.0100 ####[facility] [address] [place], [address] Troponin T.cardiac [Mass/vol ume] in Serum or Plasma by High sensitivity methodOrdered By: Margoth Villalpando on 04-04-2025 Troponin T.cardiac High sensitivity method [Mass/Vol] 11 ng/L <14 [facility] Troponin T.cardiac High sensitivity method [Mass/Vol] 10 ng/L <14 [facility] White blood cell (WBC) count Ordered By: Margoth Villalpando on 04-04-2025 WBC (Bld) [#/Vol] 6.3 10*3/uL 4.4-11.0 [facility] Radiation Oncology Visiton 0 03-25-2025 Radiation Oncology Visit Normal [facility] Absolute lymphocyte countOrd ered By: Ximena Stanley on 03-16-2025 Lymphocytes Auto (Unsp spec) [#/Vol] 1.92 10*3/uL 0.83-4.51 [facility] Absolute neutrophil countOrd ered By: [facility] on 03-16-2025 Neutrophils (Bld) [#/Vol] 3.5 10*3/uL 2.0-7.7 [facility] Anion gap in Serum or Plasma Ordered By: Ximena Stanley on 03-16-2025 Anion gap [Moles/Vol] 9 mmol/L 5- [facility] Automated lymphocyte count a s percentage of total leukocytesOrdered By: [facility] Stanley on 03-16-2025 Lymphocytes/100 WBC Auto (Unsp spec) 31.4 % - [facility] BUN/creatinine ratioOrdered By: [facility] Lizeth on 03-16-2025 Urea nitrogen/Creatinine [Mass ratio] 11.8 mg/mg 10- [facility] Basophil percentageOrdered B y: Ximena Stanley on 03-16-2025 Basophils/100 WBC (Bld) 0.8 % 0-1 [facility] Bilirubin, totalOrdered By: Ximena Stanley on 03-16-2025 Bilirubin [Mass/Vol] 0.36 mg/dL 0.00-1.30 [facility] CBC W/Diff, Automatedon 03-01 Absolute Lymph 1.92 X10 3/uL Normal 0.83-4.51 [facility] Comment on above: Performed By: #### L 100.0100, L500.4050 ####[facility] [address] [place], [address] Absolute Neut 3.5 X10 3/uL Normal 2.0-7.7 [facility] Comment on above: Performed By: #### L 100.0100, L500.4050 ####[facility] [address] [place], [address] Basophils/100 WBC (Bld) 0.8 % Normal 0-1 [facility] Comment on above: Performed By: #### L 100.0100, L500.4050 ####[facility] [address] [place], [address] Eosinophils/100 WBC (Bld) 1.3 % Normal 0-5 [facility] Comment on above: Performed By: #### L 100.0100, L500.4050 ####[facility] [address] [place], [address] Erythrocyte distribution width (RBC) [Ratio] 18.1 % High 11.6-14.6 [facility] Comment on above: Performed By: #### L 100.0100, L500.4050 ####[facility] [address] [place], [address] Hematocrit (Bld) [Volume fraction] 35.0 % Low 37-47 [facility] Comment on above: Performed By: #### L 100.0100, L500.4050 ####[facility] [address] [place], [address] Hemoglobin (Bld) [Mass/Vol] 11.0 g/dL Low 12.0-15.0 [facility] Comment on above: Performed By: #### L 100.0100, L500.4050 ####[facility] [address] [place], [address] IG% 0.200 Normal 0.0-0.9 [facility] Comment on above: Result Comment: IG% - Immature Granulocytes (promyelocytes, myelocytes andmetamyelocytes) > 1% indicates that a LEFT SHIFT is Present. Performed By: #### L 100.0100, L500.4050 ####[facility] [address] [place], [address] Lymphocytes/100 WBC (Bld) 31.4 % Normal 19-41 [facility] Comment on above: Performed By: #### L 100.0100, L500.4050 ####[facility] [address] [place], [address] MCH (RBC) [Entitic mass] 25.5 pg Low 27.0-32.0 [facility] Comment on above: Performed By: #### L 100.0100, L500.4050 ####[facility] [address] [place], [address] MCHC (RBC) [Mass/Vol] 31.4 g/dL Low 32-36 [facility] Comment on above: Performed By: #### L 100.0100, L500.4050 ####[facility] [address] [place], [address] MCV (RBC) [Entitic vol] 81.0 fL Normal 81-99 [facility] Comment on above: Performed By: #### L 100.0100, L500.4050 ####[facility] [address] [place], [address] Monocytes/100 WBC (Bld) 9.5 % Normal 0-10 [facility] Comment on above: Performed By: #### L 100.0100, L500.4050 ####[facility] [address] [place], [address] Neutrophils/100 WBC (Bld) 56.8 % Normal 47-70 [facility] Comment on above: Performed By: #### L 100.0100, L500.4050 ####[facility] [address] [place], [address] Nucleated RBC (Bld) [#/Vol] 0 10*3/uL Normal 0-5 [facility] Comment on above: Performed By: #### L 100.0100, L500.4050 ####[facility] [address] [place], [address] Platelet mean volume (Bld) [Entitic vol] 8.5 fL Normal 6.2-12.0 [facility] Comment on above: Performed By: #### L 100.0100, L500.4050 ####[facility] [address] [place], [address] Platelets (Bld) [#/Vol] 428 10*3/uL Normal 150-450 [facility] Comment on above: Performed By: #### L 100.0100, L500.4050 ####[facility] [address] [place], [address] RBC (Bld) [#/Vol] 4.32 10*6/uL Normal 4.2-5.4 [facility] Comment on above: Performed By: #### L 100.0100, L500.4050 ####[facility] [address] [place], [address] RDW SD 54.1 fl High 35.1-43.9 [facility] Comment on above: Performed By: #### L 100.0100, L500.4050 ####[facility] [address] [place], [address] WBC (Bld) [#/Vol] 6.1 10*3/uL Normal 4.4-11.0 [facility] Comment on above: Performed By: #### L 100.0100, L500.4050 ####[facility] [address] [place], [address] Carbon dioxide, total [Moles /volume] in Central venous bloodOrdered By: Ximena Stanley on 03-16-2025 CO2 [Moles/Vol] 25.4 mmol/L 21.0-32.0 [facility] Chloride assayOrdered By: Pina Stanley on 03-16-2025 Chloride [Moles/Vol] 105 mmol/L 98-108 [facility] Comprehensive Metabolic Prof ilon 03-16-2025 Albumin [Mass/Vol] 4.1 g/dL Normal 3.4-4.8 [facility] Comment on above: Performed By: #### L 100.0100, L500.4050 ####[facility] [address] [place], [address] Albumin/Globulin [Mass ratio] 1.4 {ratio} Normal 0.9-2.4 [facility] Comment on above: Performed By: #### L 100.0100, L500.4050 ####[facility] [address] [place], [address] ALK PHOS 31 U/L Low 35-104 [facility] Comment on above: Performed By: #### L 100.0100, L500.4050 ####[facility] [address] [place], [address] ALT [Catalytic activity/Vol] 15 U/L Normal <=34 [facility] Comment on above: Performed By: #### L 100.0100, L500.4050 ####[facility] [address] [place], [address] AST [Catalytic activity/Vol] 20 U/L Normal <=31 [facility] Comment on above: Performed By: #### L 100.0100, L500.4050 ####[facility] [address] [place], [address] Bilirubin [Mass/Vol] 0.36 mg/dL Normal 0.00-1.30 [facility] Comment on above: Performed By: #### L 100.0100, L500.4050 ####[facility] [address] [place], [address] BUN/CRE 11.8 RATIO Normal 10-20 [facility] Comment on above: Performed By: #### L 100.0100, L500.4050 ####[facility] [address] [place], [address] Calcium [Mass/Vol] 9.3 mg/dL Normal 7.6-11.0 [facility] Comment on above: Performed By: #### L 100.0100, L500.4050 ####[facility] [address] [place], [address] Chloride [Moles/Vol] 105 mmol/L Normal 98-108 [facility] Comment on above: Performed By: #### L 100.0100, L500.4050 ####[facility] [address] [place], [address] CO2 [Moles/Vol] 25.4 mmol/L Normal 21.0-32.0 [facility] Comment on above: Performed By: #### L 100.0100, L500.4050 ####[facility] [address] [place], [address] Creatinine [Mass/Vol] 1.30 mg/dL High 0.70-1.20 [facility] Comment on above: Performed By: #### L 100.0100, L500.4050 ####[facility] [address] [place], [address] GAP 9 Normal 5-15 [facility] Comment on above: Performed By: #### L 100.0100, L500.4050 ####[facility] [address] [place], [address] GFR/1.73 sq M.predicted among non-blacks MDRD (S/P/Bld) [Vol rate/Area] 42 mL/min/{1.73_m2} Low >60 [facility] Comment on above: Result Comment: mL/m in/1.73m2 CKD-EPI Creatinine Equation (2020) Performed By: #### L 100.0100, L500.4050 ####[facility] [address] [place], [address] Globulin (S) [Mass/Vol] 2.9 g/dL Normal 2.2-4.2 [facility] Comment on above: Performed By: #### L 100.0100, L500.4050 ####[facility] [address] [place], [address] Glucose [Mass/Vol] 117 mg/dL High 70-99 [facility] Comment on above: Performed By: #### L 100.0100, L500.4050 ####[facility] [address] [place], [address] Potassium [Moles/Vol] 4.4 mmol/L Normal 3.3-5.1 [facility] Comment on above: Performed By: #### L 100.0100, L500.4050 ####[facility] [address] [place], [address] Sodium [Moles/Vol] 140 mmol/L Normal 133-145 [facility] Comment on above: Performed By: #### L 100.0100, L500.4050 ####[facility] [address] [place], [address] T PROT 7.0 g/dL Normal 5.9-8.4 [facility] Comment on above: Performed By: #### L 100.0100, L500.4050 ####[facility] [address] [place], [address] Urea nitrogen [Mass/Vol] 15 mg/dL Normal 4-19 [facility] Comment on above: Performed By: #### L 100.0100, L500.4050 ####[facility] [address] [place], [address] Eosinophil percentageOrdered By: Ximena Stanley on 03-16-2025 Eosinophils/100 WBC (Bld) 1.3 % 0-5 [facility] Erythrocyte distribution wid th ratioOrdered By: Ximena Stanley on 03-16-2025 Erythrocyte distribution width (RBC) [Ratio] 18.1 % High 11.6-14.6 [facility] Erythrocyte distribution wid th standard deviationOrdered By: Ximena Stanley on 03-16-2025 Erythrocyte distribution width (RBC) [Ratio] 54.1 fl High 35.1-43.9 [facility] Glomerular filtration rate ( GFR) estimation/1.73 sq m using serum, plasma, or whole bOrdered By: Ximena Stanley on 03-16-2025 GFR/1.73 sq M.predicted among non-blacks MDRD (S/P/Bld) [Vol rate/Area] 42 mL/min/{1.73_m2} Low >60 [facility] Comment on above: mL/min/1.73m2 CKD-EP I Creatinine Equation (2020) Hematocrit Auto (Bld) [Volum e fraction]Ordered By: Ximena Stanley on 03-16-2025 Hematocrit (Bld) [Volume fraction] 35.0 % Low 37-47 [facility] Hemoglobin measurementOrdere d By: Ximena Stanley on 03-16-2025 Hemoglobin (Bld) [Mass/Vol] 11.0 g/dL Low 12.0-15.0 [facility] Immature granulocytes/100 WB C Auto (Bld)Ordered By: Ximena Stanley on 03-16-2025 Immature granulocytes/100 WBC (Bld) 0.200 % 0.0-0.9 [facility] Comment on above: IG% - Immature Granu locytes (promyelocytes, myelocytes and metamyelocytes) > 1% indicates that a LEFT SHIFT is Present. Laboratory - Chemistry and C hemistry - challengeOrdered By: Ximena Stanley on 03-16-2025 AST [Catalytic activity/Vol] 20 U/L <32 [facility] MCV (mean corpuscular volume ) determinationOrdered By: Ximena Stanley on 03-16-2025 MCV (RBC) [Entitic vol] 81.0 fL 81-99 [facility] Mean corpuscular hemoglobin (MCH) determinationOrdered By: Ximena Stanley on 03-16-2025 MCH (RBC) [Entitic mass] 25.5 pg Low 27.0-32.0 [facility] Mean corpuscular hemoglobin concentration (MCHC) determinationOrdered By: Ximena Stanley on 03-16-2025 MCHC (RBC) [Mass/Vol] 31.4 g/dL Low 32-36 [facility] Mean platelet volume determi nationOrdered By: Ximena Stanley on 03-16-2025 Platelet mean volume (Bld) [Entitic vol] 8.5 fL 6.2-12.0 [facility] Monocyte percentageOrdered B y: Ximena Stanley on 03-16-2025 Monocytes/100 WBC (Bld) 9.5 % 0-10 [facility] Neutrophil percentageOrdered By: Ximena Stanley on 03-16-2025 Neutrophils/100 WBC (Bld) 56.8 % 47-70 [facility] Nucleated red blood cell per centageOrdered By: Ximena Stanley on 03-16-2025 Nucleated RBC/100 WBC (Bld) [Ratio] 0 % 0-5 [facility] Oncology Visit Reporton 03-01 Oncology Visit Report Normal [facility] Platelet countOrdered By: Pina Stanley on 03-16-2025 Platelets (Bld) [#/Vol] 428 10*3/uL 150-450 [facility] Potassium measurement (mass/ volume)Ordered By: Ximena Stanley on 03-16-2025 Potassium (Unsp spec) [Mass/Vol] 4.4 mmol/L 3.3-5.1 [facility] RBC Auto (Bld) [#/Vol]Ordere d By: Ximena Stanley on 03-16-2025 RBC (Bld) [#/Vol] 4.32 10*6/uL 4.2-5.4 [facility] Serum creatinine measurement (mass/volume)Ordered By: Ximena Stanley on 03-16-2025 Creatinine [Mass/Vol] 1.30 mg/dL High 0.70-1.20 [facility] Serum globulin measurementOr dered By: Ximena Stanley on 03-16-2025 Globulin (S) [Mass/Vol] 2.9 g/dL 2.2-4.2 [facility] Serum glucose measurement (m ass/volume)Ordered By: Ximena Stanley on 03-16-2025 Glucose [Mass/Vol] 117 mg/dL High 70-99 [facility] Serum or plasma alanine amezcua otransferase (ALT) measurementOrdered By: Ximena Stanley on 03-16-2025 ALT [Catalytic activity/Vol] 15 U/L <35 [facility] Serum or plasma albumin be urement (mass/volume)Ordered By: Ximena Johnsonkristina on 03-16-2025 Albumin [Mass/Vol] 4.1 g/dL 3.4-4.8 [facility] Serum or plasma albumin/glob ulin mass ratioOrdered By: Ximena Lizeth on 03-16-2025 Albumin/Globulin [Mass ratio] 1.4 {ratio} 0.9-2.4 [facility] Serum or plasma alkaline leonardo sphatase measurementOrdered By: Ximena Lizeth on 03-16-2025 ALP [Catalytic activity/Vol] 31 U/L Low 35-104 [facility] Serum or plasma calcium be urement (mass/volume)Ordered By: Ximena Lizeth on 03-16-2025 Calcium [Mass/Vol] 9.3 mg/dL 7.6-11.0 [facility] Serum or plasma urea nitroge n measurement (mass/volume)Ordered By: Ximena Lizeth on 03-16-2025 Urea nitrogen [Mass/Vol] 15 mg/dL 4-19 [facility] Sodium levelOrdered By: Marc valadez Lizeth on 03-16-2025 Sodium [Moles/Vol] 140 mmol/L 133-145 [facility] Total proteinOrdered By: Saúl mcmahon Lizeth on 03-16-2025 Protein [Mass/Vol] 7.0 g/dL 5.9-8.4 [facility] White blood cell (WBC) count Ordered By: Ximena Lizeth on 03-16-2025 WBC (Bld) [#/Vol] 6.1 10*3/uL 4.4-11.0 [facility] SURG PATH REQUESTon 03-09-20 Case Report Normal [facility] Comment on above: Result Comment: Surg ical Pathology Report Case: [id number] Authorizing Provider: Breanna Thomson MD Collected: 03/09/2025 08:34 AM Ordering Location[facility] Received: 03/09/2025 08:18 AM [place] Pathologist: Kartik Franco MD, PhD Specimen: SURG PATH, Outside USS on C11, HER2 FISH; Left Breast Performed By: #### S URGP #### [facility] (DEFAULT) [address] [address] Clinical History Normal [facility] Comment on above: Result Comment: Rece ived is a request from Breanna Thomson MD at [facility] for molecular testing received from [facility], [address] [place] [address]. Pre-Op Diagnosis: Breast cancer left breast. Performed By: #### S URGP #### [facility] (DEFAULT) [address] [address] Gross Description Normal [facility] Comment on above: Result Comment: The following material(s) are received from [facility], [address] [place] [address], [place] [address] with an identifying Surgical Pathology Report: 1 H&E slide(s), 1 non-H&E slide(s) which is the HER2 IHC slide, and 2 unstained slides(s) (C11, C11), labeled [id number] which is submitted to the [facility] for FISH testing: HER2, FISH. Materials will be returned upon completion. Grosser for this case was: Rita Farias Performed By: #### S URGP #### [facility] (DEFAULT) [address] [address] Intraoperative Diagnosis Normal [facility] Comment on above: Result Comment: For Immediate Release [facility] Performed By: #### S URGP #### [facility] (DEFAULT) [address] [address] Microscopic Description Tissue was assessed by a molecular pathologist to select areas for analysis and to correlate immunostaining with histology. No morphologic assessment was requested. Normal [facility] Comment on above: Performed By: #### S URGP #### [facility] (DEFAULT) [address] [address] Pathologic Diagnosis Normal [facility] Comment on above: Result Comment: Outs rhonda Slides: [id number] (02/22/25) C. Left breast, left partial mastectomy: HER2 FISH: Negative (see FISH report) at 1313 EDT Performed By: #### S URGP #### [facility] (DEFAULT) [address] [place] [address] Professional Interpretation Performed at: [facility] Comment on above: Result Comment: [facility] [address] [facility] [place] [address] [place], [place] [address] Performed By: #### S URGP #### [facility] (DEFAULT) [address] [place] [address] Surgery Visit Reporton 03-09 Surgery Visit Report Normal [facility] Discharge Instructionon 01-30 Discharge Instruction Normal [facility] Immunohistochemical Stainson 02-22-2025 Immunohistochemical Stains [facility] Comment on above: Performed By: #### P IMHI ####[facility] [address] [place], [address] Lymph Node Injection Onlyon 02-22-2025 Lymph Node Injection Only Normal [facility] MR/POSTOP.ANEon 02-22-2025 MR/POSTOP.ANE Normal [facility] MR/[id number] 02-22-2025 MR/POSTOPAN2 [facility] Operative Reporton Operative Report Normal [facility] MR/PAT.ANEon 02-21-2025 MR/PAT.ANE Normal [facility] Electrocardiogram reportOrde red By: Luis Carlos Zuluaga on 02-19-2025 EKG study [facility] [address] [place] [address] 12 Lead EKG 02/18/25 1156 MR#: [id number] Acct: [id number] Name: ALISTAIR ARECHIGA Rep #:[id number] : 1945 79 From: Luis Carlos Zuluaga MD Attending Dr: Dr. Branden Lance MD Status: PRE [facility] Ordering Dr: Cal Cassidy MD Date: Location: [facility] Sex: F C Admitted: Test Reason : PRE OP Blood Pressure : */* mmHG Vent. Rate : 67 BPM Atrial Rate : 67 BPM P-R Int : 154 ms QRS Dur : 84 ms QT Int : 398 ms P-R-T Axes : 45 7 79 degrees QTcB Int : 420 ms Normal sinus rhythm Nonspecific T wave abnormality Abnormal ECG Confirmed by ZAN GARZA, LUIS CARLOS ([id number]), movie editor BRENDA CAMACHO ([id number]) on 02/19/2025 7:11:17 AM Referred By: Branden Lance Confirmed By: LUIS CARLOS ZULUAGA MD 02/19/25 0711 Date _ Luis Carlos Zuluaga MD CC: [employer] INST[employer]ER-C Rayshawn Chaudhary; Dr. Branden Lance MD; Dr. Cal Cassidy MD ~ Signed [facility] Work Phone: 12 Lead EKGon 02-18-2025 12 Lead EKG Normal [facility] Surgery Visit Reporton 02-11 Surgery Visit Report Normal [facility] SURG PATH REQUESTon 02-08-20 Case Report Normal [facility] Comment on above: Result Comment: Surg ical Pathology Report Case: [id number] Authorizing Provider: Breanna Thomson MD Collected: 02/07/2025 10:05 AM Ordering Location: [facility] Received: 02/07/2025 09:54 AM [place] Pathologist: Kartik Franco MD, PhD Specimen: SURG PATH, Outside block [id number] (5); Left breast; HER2 FISH Performed By: #### S URGP #### [facility] (DEFAULT) [address] [place] [address] Clinical History Normal [facility] Comment on above: Result Comment: Rece ived is a request from Breanna Thomson MD at [facility],[address] [place] [address] for molecular testing on a paraffin block received from the same facility. Performed By: #### S URGP #### [facility] (DEFAULT) [address] [address] Gross Description [facility] Comment on above: Result Comment: The following material(s) are received from [facility], [address], [place] [address] with an identifying Surgical Pathology Report:1 paraffin block marked [id number] (5), which is submitted to the [facility] histology/IHC laboratory for recutting and additional staining for molecular testing: HER2, FISH. Materials will be returned upon completion. Grosser for this case was: Rita Farias Performed By: #### S URGP #### [facility] (DEFAULT) [address] [address] Intraoperative Diagnosis [facility] Comment on above: Result Comment: For Immediate Release to Patient's [facility]? Yes Performed By: #### S URGP #### [facility] (DEFAULT) [address] [address] Microscopic Description [facility] Comment on above: Result Comment: Tiss ue was assessed by a molecular pathologist to select areas for analysis and to correlate immunostaining with histology. No morphologic assessment was requested. Performed By: #### S URGP #### [facility] (DEFAULT) [address] [address] Pathologic Diagnosis [facility] Comment on above: Result Comment: Outs rhonda Block: [id number] (01/28/25) A. Left breast, mass, excisional biopsy: HER2 FISH: Negative for amplification (see FISH report) at 0943 EDT Performed By: #### S URGP #### [facility] (DEFAULT) [address] [address] Professional Interpretation Performed at: [facility] Comment on above: Result Comment: Prof essional interpretation performed remotely at a secondary location, address on file. Performed By: #### S URGP #### [facility] (DEFAULT) [address] [address] Discharge Instructionon 01-02 Discharge Instruction Normal [facility] MR/POSTOP.ANEon 01-28-2025 MR/POSTOP.ANE Normal [facility] MR/GUDVUTAU2em 01-28-2025 MR/POSTOPAN2 [facility] Operative Reporton Operative Report Normal [facility] Surgery Specimen Level Ivone 01-28-2025 Surgery Specimen Level IV [facility] Comment on above: Performed By: #### P SUIV ####[facility] [id number] [place], [address] MR/PAT.ANEon 01-20-2025 MR/PAT.ANE Normal [facility] Surgery Visit Reporton 01-18 Surgery Visit Report Normal [facility] Breast Limited Unilateralon 01-12-2025 Breast Limited Unilateral Normal [facility] SCRN MAMM (CAD)W/MARIO BILATo n 01-10-2025 SCRN MAMM (CAD)W/MARIO BILAT Normal [facility] [employer] Visit Reporton 01-03-2025 [facility] Visit Report Normal [facility] Visit Reporton 10-18-2024 [facility] Office Visit Report Normal [facility] Absolute lymphocyte countOrd ered By: Rayshawn Chaudhary on 10-10-2023 Lymphocytes Auto (Unsp spec) [#/Vol] 1.59 10*3/uL 0.83-4.51 [facility] Basophil percentageOrdered B y: Rayshawn Maurice on 10-10-2023 Amylase [Catalytic activity/Vol] 40 U/L 25-115 [facility] Basophils/100 WBC (Bld) 1.8 % 0-1 [facility] Bilirubin [Mass/Vol] 0.40 mg/dL 0.20-1.00 [facility] Comment on above: For patients on eltr ombopag therapy, use of Dimension Shirley TBIL is not recommended. Chloride [Moles/Vol] 111 mmol/L 98-107 [facility] Cholesterol [Mass/Vol] 147 mg/dL <200 [facility] Comment on above: <200 mg/dL Desirable 200-240 mg/dL Borderline >240 mg/dL High Risk Eosinophils/100 WBC (Bld) 3.1 % 0-5 [facility] Glucose [Mass/Vol] 97 mg/dL 74-106 [facility] Neutrophils (Bld) [#/Vol] 2.3 10*3/uL 2.0-7.7 [facility] Neutrophils/100 WBC (Bld) 51.1 % 47-70 [facility] Potassium [Moles/Vol] 4.5 mmol/L 3.5-5.1 [facility] Protein [Mass/Vol] 7.3 g/dL 6.4-8.2 [facility] Sodium [Moles/Vol] 139 mmol/L 136-145 [facility] Triglyceride [Mass/Vol] 139 mg/dL <199 [facility] Comment on above: The drugs N-Acetylcy steine and Metamizole may falsely depress this assay.Serum Triglycerides Reference Interval Normal <150 mg/dL Borderline high 150 - 199 mg/dL High 200 - 499 mg/dL Very High > or = 500 mg/dL WBC (Bld) [#/Vol] 4.5 10*3/uL 4.4-11.0 [facility] Bilirubin Test strip Ql (U)O rdered By: Rayshawn Chaudhary on 10-10-2023 Bilirubin Ql (U) Negative Negative [facility] Blood erythrocytes count (nu mber/volume)Ordered By: Rayshawn Chaudhary on 10-10-2023 RBC (Bld) [#/Vol] 4.58 10*6/uL 4.2-5.4 [facility] Blood hemoglobin measurement (mass/volume)Ordered By: Rayshawn Chaudhary on 10-10-2023 Hemoglobin (Bld) [Mass/Vol] 12.6 g/dL 12.0-15.0 [facility] Blood lymphocytes/100 leukoc ytesOrdered By: Rayshawn Chaudhary on 10-10-2023 Lymphocytes/100 WBC (Bld) 35.0 % 19-41 [facility] Blood monocytes/100 leukocyt esOrdered By: Rayshawn Chaudhary on 10-10-2023 Monocytes/100 WBC (Bld) 8.8 % 0-10 [facility] Blood platelet mean volumeOr dered By: Rayshawn Chaudhary on 10-10-2023 Platelet mean volume (Bld) [Entitic vol] 9.2 fL 6.2-12.0 [facility] Determination of erythrocyte mean corpuscular volume (MCV)Ordered By: Rayshawn Chaudhary on 10-10-2023 MCV (RBC) [Entitic vol] 87.3 fL 81-99 [facility] Hematocrit Auto (Bld) [Volum e fraction]Ordered By: Rayshawn Chaudhary on 10-10-2023 Hematocrit (Bld) [Volume fraction] 40.0 % 37-47 [facility] Ketones Test strip Ql (U)Ord ered By: Rayshawn Chaudhary on 10-10-2023 Ketones Ql (U) Negative Negative [facility] Laboratory - Chemistry and C hemistry - challengeOrdered By: Rayshawn Chaudhary on 10-10-2023 ALP [Catalytic activity/Vol] 33 U/L 45-117 [facility] ALT [Catalytic activity/Vol] 24 U/L 13-56 [facility] CO2 [Moles/Vol] 26.0 mmol/L 21.0-32.0 [facility] Globulin (S) [Mass/Vol] 3.6 g/dL 2.2-4.2 [facility] Lipase [Catalytic activity/Vol] 61 U/L 13-75 [facility] Comment on above: Please note:LIPASE r evised reference range effective 23. New Lipase methodology. Expected to produce lower values than the previous assay method. NEW Reference Range: 13 - 75 U/L Urea nitrogen/Creatinine [Mass ratio] 18.0 mg/mg 10-20 [facility] Laboratory - Hematology and Cell countsOrdered By: Rayshawn Chaudhary on 10-10-2023 Erythrocyte distribution width (RBC) [Entitic vol] 43.2 fL 35.1-43.9 [facility] Erythrocyte distribution width (RBC) [Ratio] 13.5 % 11.6-14.6 [facility] Immature granulocytes/100 WBC (Bld) 0.200 % 0.0-0.9 [facility] Comment on above: IG% - Immature Granu locytes (promyelocytes, myelocytes and metamyelocytes) > 1% indicates that a LEFT SHIFT is Present. MCH (RBC) [Entitic mass] 27.5 pg 27.0-32.0 [facility] Nucleated RBC/100 WBC (Bld) [Ratio] 0 % 0-5 [facility] MCHC Auto (RBC) [Mass/Vol]Or dered By: Rayshawn Chaudhary on 10-10-2023 MCHC (RBC) [Mass/Vol] 31.5 g/dL 32-36 [facility] Nitrite Test strip Ql (U)Ord ered By: Rayshawn Chaudhary on 10-10-2023 Nitrite Ql (U) Negative Negative [facility] No Panel InformationOrdered By: Rayshawn Chaudhary on 10-10-2023 Estimated GFR (MDRD) Amer 52 mL/min >60 [facility] Comment on above: GFR Calc Estimated GFR (MDRD) Non-Af Amer 43 mL/min >60 [facility] Comment on above: Non- GFR Calc Thyroid Stimulating Hormone (TSH) 4.52 uIU/mL 0.358-3.74 [facility] Platelets bldOrdered By: Jacinto Chaudhary on 10-10-2023 Platelets (Bld) [#/Vol] 376 10*3/uL 150-450 [facility] Protein Test strip Ql (U)Ord ered By: Rayshawn Chaudhary on 10-10-2023 Protein Ql (U) Negative Negative [facility] Serum or plasma albumin be urement (mass/volume)Ordered By: Rayshawn Chaudhary on 10-10-2023 Albumin [Mass/Vol] 3.7 g/dL 3.2-5.0 [facility] Serum or plasma albumin/glob ulin mass ratioOrdered By: Rayshawn Chaudhary on 10-10-2023 Albumin/Globulin [Mass ratio] 1.0 {ratio} 0.9-2.4 [facility] Serum or plasma calcium be urement (mass/volume)Ordered By: Rayshawn Chaudhary on 10-10-2023 Calcium [Mass/Vol] 8.8 mg/dL 8.5-10.1 [facility] Serum or plasma cholesterol in HDL measurement (mass/volume)Ordered By: Rayshawn Chaudhary on 10-10-2023 Cholesterol in HDL [Mass/Vol] 57 mg/dL >40 [facility] Comment on above: The drugs N-Acetylcy steine and Metamizole may falsely depress this assay. Reference Range HDL <40 mg/dL Low HDL Cholesterol HDL >or= 60 mg/dL High HDL Cholesterol Serum or plasma cholesterol in VLDL measurement (mass/volume)Ordered By: Rayshawn Chaudhary on 10-10-2023 Cholesterol in VLDL [Mass/Vol] 28 mg/dL 5-40 [facility] Serum or plasma creatinine m easurement (mass/volume)Ordered By: Rayshawn Chaudhary on 10-10-2023 Creatinine [Mass/Vol] 1.28 mg/dL 0.55-1.02 [facility] Comment on above: The validity of the calculated GFR & GFRAA in patients over 70 years has not been determined. Clinical correlation is essential. Serum or plasma low density lipoprotein (LDL) cholesterol measurement (mass/volume)Ordered By: Rayshawn Chaudhary on 10-10-2023 Cholesterol in LDL [Mass/Vol] 62 mg/dL 0-130 [facility] Serum or plasma urea nitroge n measurement (mass/volume)Ordered By: Rayshawn Chaudhary on 10-10-2023 Urea nitrogen [Mass/Vol] 23 mg/dL 7-18 [facility] Thin prep Papanicolaou smear with manual screeningOrdered By: Rayshawn Chaudhary on 10-10-2023 Thin prep Papanicolaou smear with manual screening 26 U/L 15-37 [facility] Thin prep Papanicolaou smear with manual screening 2 5-15 [facility] Urine blood detectionOrdered By: Rayshawn Chaudhary on 10-10-2023 RBC Ql (U) Negative Negative [facility] Urine clarityOrdered By: Jacinto Chaudhary on 10-10-2023 Clarity (U) Sl. Cloudy Clear [facility] Urine color determinationOrd ered By: Rayshawn Chaudhary on 10-10-2023 Color (U) Yellow Yellow [facility] Urine glucose detectionOrder ed By: Rayshawn Chaudhary on 10-10-2023 Glucose Ql (U) Normal mg/dl Normal [facility] Urine leukocyte esterase det ection by dipstickOrdered By: Rayshawn Chaudhary on 10-10-2023 Leukocyte esterase Test strip Ql (U) 25 /ul Negative [facility] Urine pHOrdered By: Rayshawn Chaudhary on 10-10-2023 pH (U) 6.0 [pH] 5.0 - 8.0 [facility] Urine specific gravity measu rementOrdered By: Rayshawn Chaudhary on 10-10-2023 Specific gravity (U) [Rel density] 1.015 1.002-1.030 [facility] Urobilinogen Auto test strip Ql (U)Ordered By: Rayshawn Chaudhary on 10-10-2023 Urobilinogen Ql (U) Normal mg/dl Normal [facility] Basophil percentageOrdered B y: Dionna Carcamo on 07-16-2023 Basophil percentage 3.2 mg/dL 2.5-4.9 [facility] Chloride [Moles/Vol] 108 mmol/L 98-107 [facility] Glucose [Mass/Vol] 100 mg/dL 74-106 [facility] Comment on above: Fasting Glucose resu lt from 100 to 125 mg/dL suggests IMPAIRED HOMEOSTASIS per A.D.A. criteria. Potassium [Moles/Vol] 4.2 mmol/L 3.5-5.1 [facility] Sodium [Moles/Vol] 141 mmol/L 136-145 [facility] Laboratory - Chemistry and C hemistry - challengeOrdered By: Dionna Carcamo on 07-16-2023 CO2 [Moles/Vol] 29.0 mmol/L 21.0-32.0 [facility] Urea nitrogen/Creatinine [Mass ratio] 14.9 mg/mg 10-20 [facility] No Panel InformationOrdered By: Dionna Carcamo on 07-16-2023 Estimated GFR (MDRD) Amer 56 mL/min >60 [facility] Comment on above: GFR Calc Estimated GFR (MDRD) Non-Af Amer 46 mL/min >60 [facility] Comment on above: Non- GFR Calc Serum or plasma albumin be urement (mass/volume)Ordered By: Dionna Carcamo on 07-16-2023 Albumin [Mass/Vol] 3.5 g/dL 3.2-5.0 [facility] Serum or plasma calcium be urement (mass/volume)Ordered By: Dionna Carcamo on 07-16-2023 Calcium [Mass/Vol] 8.8 mg/dL 8.5-10.1 [facility] Serum or plasma creatinine m easurement (mass/volume)Ordered By: Dionna Carcamo on 07-16-2023 Creatinine [Mass/Vol] 1.21 mg/dL 0.55-1.02 [facility] Comment on above: The validity of the calculated GFR & GFRAA in patients over 70 years has not been determined. Clinical correlation is essential. Serum or plasma urea nitroge n measurement (mass/volume)Ordered By: Dionna Carcamo on 07-16-2023 Urea nitrogen [Mass/Vol] 18 mg/dL 7-18 [facility] Absolute lymphocyte countOrd ered By: Dr. Merrill on 05-21-2023 Lymphocytes Auto (Unsp spec) [#/Vol] 1.96 10*3/uL 0.83-4.51 [facility] Basophil percentageOrdered B y: Dr. Merrill on 05-21-2023 Basophils/100 WBC (Bld) 1.1 % 0-1 [facility] Bilirubin [Mass/Vol] 0.40 mg/dL 0.20-1.00 [facility] Comment on above: For patients on eltr ombopag therapy, use of Dimension Shirley TBIL is not recommended. Chloride [Moles/Vol] 109 mmol/L 98-107 [facility] Eosinophils/100 WBC (Bld) 1.8 % 0-5 [facility] Glucose [Mass/Vol] 97 mg/dL 74-106 [facility] Neutrophils (Bld) [#/Vol] 3.6 10*3/uL 2.0-7.7 [facility] Neutrophils/100 WBC (Bld) 57.4 % 47-70 [facility] Potassium [Moles/Vol] 4.0 mmol/L 3.5-5.1 [facility] Protein [Mass/Vol] 7.7 g/dL 6.4-8.2 [facility] Sodium [Moles/Vol] 141 mmol/L 136-145 [facility] WBC (Bld) [#/Vol] 6.2 10*3/uL 4.4-11.0 [facility] Basophil percentage 0-5 SEEN /hpf 0-5 [facility] Bilirubin Test strip Ql (U)O rdered By: Dr. Merrill on 05-21-2023 Bilirubin Ql (U) Negative Negative [facility] Blood erythrocytes count (nu mber/volume)Ordered By: Dr. Merrill on 05-21-2023 RBC (Bld) [#/Vol] 4.73 10*6/uL 4.2-5.4 [facility] Blood hemoglobin measurement (mass/volume)Ordered By: Dr. Merrill on 05-21-2023 Hemoglobin (Bld) [Mass/Vol] 13.2 g/dL 12.0-15.0 [facility] Blood lymphocytes/100 leukoc ytesOrdered By: Dr. Merrill on 05-21-2023 Lymphocytes/100 WBC (Bld) 31.6 % 19-41 [facility] Blood monocytes/100 leukocyt esOrdered By: Dr. Merrill on 05-21-2023 Monocytes/100 WBC (Bld) 7.9 % 0-10 [facility] Blood platelet mean volumeOr dered By: Dr. Merrill on 05-21-2023 Platelet mean volume (Bld) [Entitic vol] 9.0 fL 6.2-12.0 [facility] Determination of erythrocyte mean corpuscular volume (MCV)Ordered By: Dr. Merrill on 05-21-2023 MCV (RBC) [Entitic vol] 89.6 fL 81-99 [facility] Direct bilirubinOrdered By: Dr. Merrill on 05-21-2023 Bilirubin.direct [Mass/Vol] 0.16 mg/dL 0.00-0.30 [facility] Hematocrit Auto (Bld) [Volum e fraction]Ordered By: Dr. Merrill on 05-21-2023 Hematocrit (Bld) [Volume fraction] 42.4 % 37-47 [facility] Ketones Test strip Ql (U)Ord ered By: Dr. Merrill on 05-21-2023 Ketones Ql (U) Negative Negative [facility] Laboratory - Chemistry and C hemistry - challengeOrdered By: Dr. Merrill on 05-21-2023 ALP [Catalytic activity/Vol] 32 U/L 45-117 [facility] ALT [Catalytic activity/Vol] 27 U/L 13-56 [facility] CO2 [Moles/Vol] 26.0 mmol/L 21.0-32.0 [facility] Globulin (S) [Mass/Vol] 3.9 g/dL 2.2-4.2 [facility] Lipase [Catalytic activity/Vol] 83 U/L 13-75 [facility] Comment on above: Please note:LIPASE r evised reference range effective 23. New Lipase methodology. Expected to produce lower values than the previous assay method. NEW Reference Range: 13 - 75 U/L Urea nitrogen/Creatinine [Mass ratio] 13.8 mg/mg 10-20 [facility] Laboratory - Hematology and Cell countsOrdered By: Dr. Merrill on 05-21-2023 Erythrocyte distribution width (RBC) [Entitic vol] 48.1 fL 35.1-43.9 [facility] Erythrocyte distribution width (RBC) [Ratio] 14.6 % 11.6-14.6 [facility] Immature granulocytes/100 WBC (Bld) 0.200 % 0.0-0.9 [facility] Comment on above: IG% - Immature Granu locytes (promyelocytes, myelocytes and metamyelocytes) > 1% indicates that a LEFT SHIFT is Present. MCH (RBC) [Entitic mass] 27.9 pg 27.0-32.0 [facility] Nucleated RBC/100 WBC (Bld) [Ratio] 0 % 0-5 [facility] MCHC Auto (RBC) [Mass/Vol]Or dered By: Dr. Merrill on 05-21-2023 MCHC (RBC) [Mass/Vol] 31.1 g/dL 32-36 [facility] Mucus LM Ql (Urine sed)Order ed By: Dr. Merrill on 05-21-2023 Mucus Ql (Urine sed) 0 SEEN /hpf [facility] Nitrite Test strip Ql (U)Ord ered By: Dr. Merrill on 05-21-2023 Nitrite Ql (U) Negative Negative [facility] No Panel InformationOrdered By: Dr. Merrill on 05-21-2023 Estimated Creatinine Clearance Calc 27.78 ml/min [facility] Estimated GFR (MDRD) Amer 51 mL/min >60 [facility] Comment on above: GFR Calc Estimated GFR (MDRD) Non-Af Amer 42 mL/min >60 [facility] Comment on above: Non- GFR Calc Troponin I High Sensitivity 7 pg/mL 3.0-54.0 [facility] Comment on above: Please Note: New Lilian t Units and Gender Specific Reference Ranges. For more information see Policy Stat Procedure Shirley High Sensitivity Troponin (TNIH) and attachments. Platelets bldOrdered By: Dr. Merrill on 05-21-2023 Platelets (Bld) [#/Vol] 338 10*3/uL 150-450 [facility] Protein Test strip Ql (U)Ord ered By: Dr. Merrill on 05-21-2023 Protein Ql (U) Negative Negative [facility] Serum or plasma albumin be urement (mass/volume)Ordered By: Dr. Merrill on 05-21-2023 Albumin [Mass/Vol] 3.8 g/dL 3.2-5.0 [facility] Serum or plasma calcium be urement (mass/volume)Ordered By: Dr. Merrill on 05-21-2023 Calcium [Mass/Vol] 9.4 mg/dL 8.5-10.1 [facility] Serum or plasma creatinine m easurement (mass/volume)Ordered By: Dr. Merrill on 05-21-2023 Creatinine [Mass/Vol] 1.30 mg/dL 0.55-1.02 [facility] Comment on above: The validity of the calculated GFR & GFRAA in patients over 70 years has not been determined. Clinical correlation is essential. Serum or plasma urea nitroge n measurement (mass/volume)Ordered By: Dr. Merrill on 05-21-2023 Urea nitrogen [Mass/Vol] 18 mg/dL 7-18 [facility] Squamous epithelial cells de tection in urine sediment by light microscopyOrdered By: Dr. Merrill on 05-21-2023 Epithelial cells.squamous LM Ql (Urine sed) 0-5 SEEN /hpf 5-10 [facility] Thin prep Papanicolaou smear with manual screeningOrdered By: Dr. Merrill on 05-21-2023 Thin prep Papanicolaou smear with manual screening 20 U/L 15-37 [facility] Thin prep Papanicolaou smear with manual screening 6 5-15 [facility] Urine blood detectionOrdered By: Dr. Merrill on 05-21-2023 RBC Ql (U) Negative Negative [facility] RBC Ql (U) 0 SEEN /hpf 0-5 [facility] Urine clarityOrdered By: Dr. Merrill on 05-21-2023 Clarity (U) Sl. Cloudy Clear [facility] Urine color determinationOrd ered By: Dr. Merrill on 05-21-2023 Color (U) Yellow Yellow [facility] Urine glucose detectionOrder ed By: Dr. Merrill on 05-21-2023 Glucose Ql (U) Normal mg/dl Normal [facility] Urine leukocyte esterase det ection by dipstickOrdered By: Dr. Merrill on 05-21-2023 Leukocyte esterase Test strip Ql (U) 25 /ul Negative [facility] Urine pHOrdered By: Dr. Jose Alberto sanchez on 05-21-2023 pH (U) 6.0 [pH] 5.0 - 8.0 [facility] Urine sediment bacteria coun t by microscopy (number/high power field)Ordered By: Dr. Merrill on 05-21-2023 Bacteria LM.HPF (Urine sed) [#/Area] 0 /[HPF] None Seen [facility] Urine specific gravity measu rementOrdered By: Dr. Merrill on 05-21-2023 Specific gravity (U) [Rel density] 1.015 1.002-1.030 [facility] Urobilinogen Auto test strip Ql (U)Ordered By: Dr. Merrill on 05-21-2023 Urobilinogen Ql (U) Normal mg/dl Normal [facility] Absolute lymphocyte countOrd ered By: Dr. Parham on 05-15-2023 Lymphocytes Auto (Unsp spec) [#/Vol] 1.82 10*3/uL 0.83-4.51 [facility] Basophil percentageOrdered B y: Dr. Parham on 05-15-2023 Basophils/100 WBC (Bld) 0.8 % 0-1 [facility] Bilirubin [Mass/Vol] 0.40 mg/dL 0.20-1.00 [facility] Comment on above: For patients on eltr ombopag therapy, use of Dimension [place] TBIL is not recommended. Chloride [Moles/Vol] 107 mmol/L 98-107 [facility] Eosinophils/100 WBC (Bld) 1.5 % 0-5 [facility] Glucose [Mass/Vol] 132 mg/dL 74-106 [facility] Comment on above: Fasting Glucose resu lt greater than or equal to 126 mg/dL suggests DIABETES MELLITUS per A.D.A. criteria. Neutrophils (Bld) [#/Vol] 3.7 10*3/uL 2.0-7.7 [facility] Neutrophils/100 WBC (Bld) 62.1 % 47-70 [facility] Potassium [Moles/Vol] 4.2 mmol/L 3.5-5.1 [facility] Comment on above: Moderate Hemolysis, Result may be falsely increased. Protein [Mass/Vol] 7.4 g/dL 6.4-8.2 [facility] Sodium [Moles/Vol] 138 mmol/L 136-145 [facility] WBC (Bld) [#/Vol] 6.0 10*3/uL 4.4-11.0 [facility] Blood erythrocytes count (nu mber/volume)Ordered By: Dr. Parham on 05-15-2023 RBC (Bld) [#/Vol] 4.24 10*6/uL 4.2-5.4 [facility] Blood hemoglobin measurement (mass/volume)Ordered By: Dr. Parham on 05-15-2023 Hemoglobin (Bld) [Mass/Vol] 12.2 g/dL 12.0-15.0 [facility] Blood lymphocytes/100 leukoc ytesOrdered By: Dr. Parham on 05-15-2023 Lymphocytes/100 WBC (Bld) 30.5 % 19-41 [facility] Blood monocytes/100 leukocyt esOrdered By: Dr. Parham on 05-15-2023 Monocytes/100 WBC (Bld) 4.9 % 0-10 [facility] Blood platelet mean volumeOr dered By: Dr. Parham on 05-15-2023 Platelet mean volume (Bld) [Entitic vol] 9.3 fL 6.2-12.0 [facility] Determination of erythrocyte mean corpuscular volume (MCV)Ordered By: Dr. Parham on 05-15-2023 MCV (RBC) [Entitic vol] 89.6 fL 81-99 [facility] Erythrocyte sedimentation ra teOrdered By: Dr. Parham on 05-15-2023 ESR (Bld) [Velocity] 6 mm/h 0-30 [facility] Hematocrit Auto (Bld) [Volum e fraction]Ordered By: Dr. Parham on 05-15-2023 Hematocrit (Bld) [Volume fraction] 38.0 % 37-47 [facility] Laboratory - Chemistry and C hemistry - challengeOrdered By: Dr. Parham on 05-15-2023 ALP [Catalytic activity/Vol] 33 U/L 45-117 [facility] [facility] ALT [Catalytic activity/Vol] 29 U/L 13-56 [facility] CO2 [Moles/Vol] 27.0 mmol/L 21.0-32.0 [facility] Globulin (S) [Mass/Vol] 3.9 g/dL 2.2-4.2 [facility] Urea nitrogen/Creatinine [Mass ratio] 10.4 mg/mg 10-20 [facility] Laboratory - Hematology and Cell countsOrdered By: Dr. Parham on 05-15-2023 Erythrocyte distribution width (RBC) [Entitic vol] 48.0 fL 35.1-43.9 [facility] Erythrocyte distribution width (RBC) [Ratio] 14.7 % 11.6-14.6 [facility] Immature granulocytes/100 WBC (Bld) 0.200 % 0.0-0.9 [facility] Comment on above: IG% - Immature Granu locytes (promyelocytes, myelocytes and metamyelocytes) > 1% indicates that a LEFT SHIFT is Present. MCH (RBC) [Entitic mass] 28.8 pg 27.0-32.0 [facility] Nucleated RBC/100 WBC (Bld) [Ratio] 0 % 0-5 [facility] MCHC Auto (RBC) [Mass/Vol]Or dered By: Dr. Parham on 05-15-2023 MCHC (RBC) [Mass/Vol] 32.1 g/dL 32-36 [facility] No Panel InformationOrdered By: Dr. Parham on 05-15-2023 Estimated GFR (MDRD) Amer 49 mL/min >60 [facility] Comment on above: GFR Calc Estimated GFR (MDRD) Non-Af Amer 41 mL/min >60 [facility] Comment on above: Non- GFR Calc Platelets bldOrdered By: Dr. Parham on 05-15-2023 Platelets (Bld) [#/Vol] 361 10*3/uL 150-450 [facility] Serum or plasma C reactive p rotein measurement (mass/volume)Ordered By: Dr. Parham on 05-15-2023 CRP [Mass/Vol] 4.14 mg/L 0.0-3.0 [facility] Comment on above: C-Reactive Protein ( CRP) provides useful information for thediagnosis, therapy and monitoring of inflammatory processesand associated diseases. For the evaluation of Relative Riskfor Cardiovascular Disease, a High Sensitivity CRP (HSCRP)should be ordered. Serum or plasma albumin be urement (mass/volume)Ordered By: Dr. Parham on 05-15-2023 Albumin [Mass/Vol] 3.5 g/dL 3.2-5.0 [facility] Serum or plasma albumin/glob ulin mass ratioOrdered By: Dr. Parham on 05-15-2023 Albumin/Globulin [Mass ratio] 0.9 {ratio} 0.9-2.4 [facility] Serum or plasma calcium be urement (mass/volume)Ordered By: Dr. Parham on 05-15-2023 Calcium [Mass/Vol] 9.1 mg/dL 8.5-10.1 [facility] Serum or plasma creatinine m easurement (mass/volume)Ordered By: Dr. Parham on 05-15-2023 Creatinine [Mass/Vol] 1.35 mg/dL 0.55-1.02 [facility] Comment on above: The validity of the calculated GFR & GFRAA in patients over 70 years has not been determined. Clinical correlation is essential. Serum or plasma urea nitroge n measurement (mass/volume)Ordered By: Dr. Parham on 05-15-2023 Urea nitrogen [Mass/Vol] 14 mg/dL 7-18 [facility] Thin prep Papanicolaou smear with manual screeningOrdered By: Dr. Parham on 05-15-2023 Thin prep Papanicolaou smear with manual screening 38 U/L 15-37 [facility] Comment on above: Moderate Hemolysis, Result may be falsely increased. Thin prep Papanicolaou smear with manual screening 4 5-15 [facility] Absolute lymphocyte countOrd ered By: Rayshawn Maurice on 03-17-2023 Lymphocytes Auto (Unsp spec) [#/Vol] 1.80 10*3/uL 0.83-4.51 [facility] Basophil percentageOrdered B y: Rayshawn Maurice on 03-17-2023 Amylase [Catalytic activity/Vol] 52 U/L 25-115 [facility] Basophils/100 WBC (Bld) 0.7 % 0-1 [facility] Bilirubin [Mass/Vol] 0.30 mg/dL 0.20-1.00 [facility] Comment on above: For patients on eltr ombopag therapy, use of Dimension [place] TBIL is not recommended. Chloride [Moles/Vol] 108 mmol/L 98-107 [facility] Eosinophils/100 WBC (Bld) 1.9 % 0-5 [facility] Glucose [Mass/Vol] 95 mg/dL 74-106 [facility] Neutrophils (Bld) [#/Vol] 4.6 10*3/uL 2.0-7.7 [facility] Neutrophils/100 WBC (Bld) 65.2 % 47-70 [facility] Potassium [Moles/Vol] 3.9 mmol/L 3.5-5.1 [facility] Protein [Mass/Vol] 7.0 g/dL 6.4-8.2 [facility] Sodium [Moles/Vol] 142 mmol/L 136-145 [facility] WBC (Bld) [#/Vol] 7.0 10*3/uL 4.4-11.0 [facility] Blood erythrocytes count (nu mber/volume)Ordered By: Rayshawn Chaudhary on 03-17-2023 RBC (Bld) [#/Vol] 4.44 10*6/uL 4.2-5.4 [facility] Blood hemoglobin measurement (mass/volume)Ordered By: Rayshawn Chaudhary on 03-17-2023 Hemoglobin (Bld) [Mass/Vol] 12.4 g/dL 12.0-15.0 [facility] Blood lymphocytes/100 leukoc ytesOrdered By: Rayshawn Chaudhary on 03-17-2023 Lymphocytes/100 WBC (Bld) 25.8 % 19-41 [facility] Blood monocytes/100 leukocyt esOrdered By: Rayshawn Chaudhary on 03-17-2023 Monocytes/100 WBC (Bld) 6.3 % 0-10 [facility] Blood platelet mean volumeOr dered By: Rayshawn Chaudhary on 03-17-2023 Platelet mean volume (Bld) [Entitic vol] 10.8 fL 6.2-12.0 [facility] Determination of erythrocyte mean corpuscular volume (MCV)Ordered By: Rayshawn Chaudhary on 03-17-2023 MCV (RBC) [Entitic vol] 88.1 fL 81-99 [facility] Direct bilirubinOrdered By: Rayshawn Chaudhary on 03-17-2023 Bilirubin.direct [Mass/Vol] 0.15 mg/dL 0.00-0.30 [facility] Hematocrit Auto (Bld) [Volum e fraction]Ordered By: Rayshawn Chaudhary on 03-17-2023 Hematocrit (Bld) [Volume fraction] 39.1 % 37-47 [facility] Laboratory - Chemistry and C hemistry - challengeOrdered By: Rayshawn Chaudhary on 03-17-2023 ALP [Catalytic activity/Vol] 38 U/L 45-117 [facility] ALT [Catalytic activity/Vol] 28 U/L 13-56 [facility] CO2 [Moles/Vol] 31.0 mmol/L 21.0-32.0 [facility] Globulin (S) [Mass/Vol] 3.4 g/dL 2.2-4.2 [facility] Lipase [Catalytic activity/Vol] 97 U/L 13-75 [facility] Comment on above: Please note:LIPASE r evised reference range effective 23. New Lipase methodology. Expected to produce lower values than the previous assay method. NEW Reference Range: 13 - 75 U/L Urea nitrogen/Creatinine [Mass ratio] 15.1 mg/mg 10-20 [facility] Laboratory - Hematology and Cell countsOrdered By: Rayshawn Chaudhary on 03-17-2023 Erythrocyte distribution width (RBC) [Entitic vol] 46.6 fL 35.1-43.9 [facility] Erythrocyte distribution width (RBC) [Ratio] 14.6 % 11.6-14.6 [facility] Immature granulocytes/100 WBC (Bld) 0.100 % 0.0-0.9 [facility] Comment on above: IG% - Immature Granu locytes (promyelocytes, myelocytes and metamyelocytes) > 1% indicates that a LEFT SHIFT is Present. MCH (RBC) [Entitic mass] 27.9 pg 27.0-32.0 [facility] Nucleated RBC/100 WBC (Bld) [Ratio] 0 % 0-5 [facility] MCHC Auto (RBC) [Mass/Vol]Or dered By: Rayshawn Chaudhary on 03-17-2023 MCHC (RBC) [Mass/Vol] 31.7 g/dL 32-36 [facility] No Panel InformationOrdered By: Rayshawn Chaudhary on 03-17-2023 Estimated GFR (MDRD) Amer 45 mL/min >60 [facility] Comment on above: GFR Calc Estimated GFR (MDRD) Non-Af Amer 37 mL/min >60 [facility] Comment on above: Non- GFR Calc Platelets bldOrdered By: Jacinto Chaudhary on 03-17-2023 Platelets (Bld) [#/Vol] 354 10*3/uL 150-450 [facility] Serum or plasma albumin be urement (mass/volume)Ordered By: Rayshawn Chaudhary on 03-17-2023 Albumin [Mass/Vol] 3.6 g/dL 3.2-5.0 [facility] Serum or plasma albumin/glob ulin mass ratioOrdered By: Rayshawn Chaudhary on 03-17-2023 Albumin/Globulin [Mass ratio] 1.1 {ratio} 0.9-2.4 [facility] Serum or plasma calcium be urement (mass/volume)Ordered By: Rayshawn Chaudhary on 03-17-2023 Calcium [Mass/Vol] 9.6 mg/dL 8.5-10.1 [facility] Serum or plasma creatinine m easurement (mass/volume)Ordered By: Rayshawn Chaudhary on 03-17-2023 Creatinine [Mass/Vol] 1.46 mg/dL 0.55-1.02 [facility] Comment on above: The validity of the calculated GFR & GFRAA in patients over 70 years has not been determined. Clinical correlation is essential. Serum or plasma urea nitroge n measurement (mass/volume)Ordered By: Rayshawn Maurice on 03-17-2023 Urea nitrogen [Mass/Vol] 22 mg/dL 7-18 [facility] Thin prep Papanicolaou smear with manual screeningOrdered By: Rayshawn Guzmanam on 03-17-2023 Thin prep Papanicolaou smear with manual screening 20 U/L 15-37 [facility] Thin prep Papanicolaou smear with manual screening 3 5-15 [facility] BASIC METABOLIC PANELon 03-01 Anion gap [Moles/Vol] 10 mmol/L Normal 10 - 20 [facility] Comment on above: Performed By: #### B MP #### [address] [address] Calcium [Mass/Vol] 9.5 mg/dL Normal 8.6 - 10.3 [facility] Comment on above: Performed By: #### B MP #### [address] [address] Chloride [Moles/Vol] 105 mmol/L Normal 98 - 107 [facility] Comment on above: Performed By: #### B MP #### [address] [address] Creatinine [Mass/Vol] 1.20 mg/dL High 0.50 - 1.05 [facility] Comment on above: Performed By: #### B MP #### [address] [address] GFR/1.73 sq M.predicted among non-blacks MDRD (S/P/Bld) [Vol rate/Area] 47 mL/min/{1.73_m2} Abnormal >90 [facility] Comment on above: Result Comment: CALC ULATIONS OF ESTIMATED GFR ARE PERFORMED USING THE 2020 CKD-EPI STUDY REFIT EQUATION WITHOUT THE RACE VARIABLE FOR THE IDMS-TRACEABLE CREATININE METHODS. https://jasn.asnjournals.org/content/early/ASN.90752 10871 Performed By: #### B MP #### [address] [address] Glucose [Mass/Vol] 120 mg/dL High 74 - 99 [facility] Comment on above: Performed By: #### B MP #### [place] [id number] HCO3 (Bld) [Moles/Vol] 29 mmol/L Normal 21 - 32 [facility] Comment on above: Performed By: #### B MP #### [place] [id number] Potassium [Moles/Vol] 3.7 mmol/L Normal 3.5 - 5.3 [facility] Comment on above: Performed By: #### B MP #### [place] [address] Sodium [Moles/Vol] 140 mmol/L Normal 136 - 145 [facility] Comment on above: Performed By: #### B MP #### [place] [address] Urea nitrogen [Mass/Vol] 18 mg/dL Normal 6 - 23 [facility] Comment on above: Performed By: #### B MP #### [place] [id number] CBC AND DIFFERENTIALon 03-13 % AUTOMATED IMMATURE GRAN 0.3 % Normal 0.0 - 0.9 [facility] Comment on above: Result Comment: Meron ture Granulocyte Count (IG) includes promyelocytes, myelocytes and metamyelocytes but does not include bands. Percent differential counts (%) should be interpreted in the context of the absolute cell counts (cells/L). Performed By: #### C BCDF #### [place] [id number] Basophils (Bld) [#/Vol] 0.05 10*3/uL Normal 0.00 - 0.10 [facility] Comment on above: Performed By: #### C BCDF #### [place] [id number] Basophils/100 WBC (Bld) 0.7 % Normal 0.0 - 2.0 [facility] Comment on above: Performed By: #### C BCDF #### [place] [address] Eosinophils (Bld) [#/Vol] 0.08 10*3/uL Normal 0.00 - 0.40 [facility] Comment on above: Performed By: #### C BCDF #### [address] [address] Eosinophils/100 WBC (Bld) 1.2 % Normal 0.0 - 6.0 [facility] Comment on above: Performed By: #### C BCDF #### [address] [address] Erythrocyte distribution width (RBC) [Ratio] 14.4 % Normal 11.5 - 14.5 [facility] Comment on above: Performed By: #### C BCDF #### [address] [address] Hematocrit (Bld) [Volume fraction] 36.8 % Normal 36.0 - 46.0 [facility] Comment on above: Performed By: #### C BCDF #### [address] [address] Hemoglobin (Bld) [Mass/Vol] 11.6 g/dL Low 12.0 - 16.0 [facility] Comment on above: Performed By: #### C BCDF #### [address] [address] Lymphocytes (Bld) [#/Vol] 1.44 10*3/uL Normal 0.80 - 3.00 [facility] Comment on above: Performed By: #### C BCDF #### [address] [address] Lymphocytes/100 WBC (Bld) 21.1 % Normal 13.0 - 44.0 [facility] Comment on above: Performed By: #### C BCDF #### [address] [address] MCHC (RBC) [Mass/Vol] 31.5 g/dL Low 32.0 - 36.0 [facility] Comment on above: Performed By: #### C BCDF #### [address] [address] MCV (RBC) [Entitic vol] 88 fL Normal 80 - 100 [facility] Comment on above: Performed By: #### C BCDF #### [address] [address] Monocytes (Bld) [#/Vol] 0.44 10*3/uL Normal 0.05 - 0.80 [facility] Comment on above: Performed By: #### C BCDF #### [address] [address] Monocytes/100 WBC (Bld) 6.5 % Normal 2.0 - 10.0 [facility] Comment on above: Performed By: #### C BCDF #### [address] [address] Neutrophils (Bld) [#/Vol] 4.79 10*3/uL Normal 1.60 - 5.50 [facility] Comment on above: Result Comment: Perc ent differential counts (%) should be interpreted in the context of the absolute cell counts (cells/L). Performed By: #### C BCDF #### [address] [address] Neutrophils/100 WBC (Bld) 70.2 % Normal 40.0 - 80.0 [facility] Comment on above: Performed By: #### C BCDF #### [address] [address] Platelets (Bld) [#/Vol] 374 10*3/uL Normal 150 - 450 [facility] Comment on above: Performed By: #### C BCDF #### [address] [address] RBC 4.20 x10E12/L Normal 4.00 - 5.20 [facility] Comment on above: Performed By: #### C BCDF #### [address] [address] WBC (Bld) [#/Vol] 6.8 10*3/uL Normal 4.4 - 11.3 [facility] Comment on above: Performed By: #### C BCDF #### [place] [id number] CHEST 2 VIEW PA AND LATon CHEST 2 VIEW PA AND LAT Patient Name: ALISTAIR ARECHIGA STUDY: CHEST 2 VIEW PA AND LAT; 03/13/2023 3:00 pm INDICATION: dizzy, nausea . COMPARISON: None. ACCESSION NUMBER(S): [id number] ORDERING CLINICIAN: JAMARCUS BENOIT FINDINGS: Faint linear density in the left lung base. No airspace consolidation or pleural effusion. Mild biapical pleural thickening likely related to remote inflammatory disease. The cardiac silhouette is within normal limits for size. Multilevel thoracic vertebral degenerative endplate spurring. Rounded soft tissue shadow in the anterior upper abdomen on lateral view, possible bowel content. IMPRESSION: Minimal linear possible plate atelectasis or scarring in the left lung base. Electronically signed by: RAYNA SOLITARIO MD [facility] CT HEAD WO CONTRASTon 2022 CT HEAD WO CONTRAST Patient Name: ALISTAIR ARECHIGA STUDY: CT HEAD WO CONTRAST; 03/13/2023 2:35 pm INDICATION: dizzy, nausea . COMPARISON: None. ACCESSION NUMBER(S): [id number] ORDERING CLINICIAN: JAMARCUS BENOIT TECHNIQUE: Unenhanced CT images of the head were obtained. FINDINGS: The ventricles, cisterns and sulci are slightly prominent, consistent with diffuse volume loss. There are areas of nonspecific white matter hypodensity, which are probably age related or microvascular in nature. There is no acute intracranial hemorrhage, mass effect or midline shift. No extraaxial fluid collection. No focal calvarial lesion. 1.3 cm partially calcified scalp nodule in the vertex posteriorly. Mild bilateral ethmoid sinus mucosal thickening. Fluid/thickening in the posterior left maxillary sinus containing dots of air. Possible dental caries/periapical lucencies in the left maxilla. IMPRESSION: No acute intracranial hemorrhage or mass-effect. Mild bilateral ethmoid sinus mucosal thickening. Left maxillary sinus fluid level/thickening and possible dental/carious disease in the left maxilla. Electronically signed by: RAYNA SOLITARIO MD [facility] Provider Note - ED v3on 03-01 Provider Note - ED v3 Provider Note: Chart Review: HISTORY OF PRESENTING ILLNESS ALISTAIR is a 77 year old Female and was seen by me at 13-Mar-2023 13:05 for a chief complaint of dizziness (states she started with epigastric pain 4 days ago and was seen at [facility]. then went back the next day with nausea and dizziness. states she felt better until today. this morning c/o increased dizziness not relieved with meclizine)(1). Triage Information: Most recent Vital Sign Value Date Temp (F): 97.6 03-13-2023 13:20 Temp (C): 36.4 03-13-2023 13:20 Heart Rate (beats/min): 76 03-13-2023 13:20 Respirations (breaths/min): 16 03-13-2023 13:20 SpO2 (%): 96 03-13-2023 13:20 BP Systolic (mm Hg): 155 03-13-2023 13:20 BP Diastolic (mm Hg): 76 03-13-2023 13:20 PAST MEDICAL HISTORY ALLERGIES/INTOLERANCES : Allergy Allergen: Bactrim Type: Drug Reaction: Unknown Allergen: Augmentin Type: Drug Reaction: Unknown HEALTH HISTORY: No documented data. OUTPATIENT MEDICATIONS: Home Medications Review Status for Reconciliation: Complete Med Status: Patient Currently Takes Medications Drug Name: meclizine 25 mg oral tablet Instructions: 1 tab(s) orally 3 times a day, As Needed Drug Name: pantoprazole 40 mg oral delayed release tablet Instructions: 1 tab(s) orally once a day Drug Name: [place] 5 mg-325 mg oral tablet Instructions: 1 tab(s) orally every 6 hours, As Needed Drug Name: ondansetron 4 mg oral tablet, disintegrating Instructions: 1 tab(s) orally every 8 hours, As Needed Drug Name: fenofibric acid 135 mg oral delayed release capsule Instructions: 1 cap(s) orally once a day Drug Name: levothyroxine 25 mcg (0.025 mg) oral tablet Instructions: 1 tab(s) orally once a day SIGNIFICANT EVENTS: Past Medical History Description:Gastroesop hageal Reflux Disorder (GERD) Description:Hypertensi on (HTN) CRITICAL CARE RESULTS: Recent Lab Results: I have reviewed these laboratory results: Troponin I, High Sensitivity Trending View [id number] 15:11:00 13-Mar-2023 14:03:00 Troponin I, High Sensitivity7 6 Urinalysis with Culture if Indicated 13-Mar-2023 14:14:00 ResultValue Color, Urine Yellow Reference Range: STRAW,YELLOW Appearance, Urine HAZY Specific [place], Urine 1.010 pH, Urine 8.0 Protein, Urine NEGATIVE Glucose, Urine NEGATIVE Blood, Urine NEGATIVE Ketones, Urine NEGATIVE Bilirubin, Urine NEGATIVE Urobilinogen, Urine <2.0 Nitrite, Urine Negative Leukocyte Esterase, Urine NEGATIVE Complete Blood Count + Differential 13-Mar-2023 14:03:00 ResultValue White Blood Cell Count 6.8 Red Blood Cell Count 4.20 HGB 11.6 L HCT 36.8 MCV 88 MCHC 31.5 L PLT 374 RDW-CV 14.4 Neutrophil % 70.2 Immature Granulocytes % 0.3 Lymphocyte % 21.1 Monocyte % 6.5 Eosinophil % 1.2 Basophil % 0.7 Neutrophil Count 4.79 Lymphocyte Count 1.44 Monocyte Count 0.44 Eosinophil Count 0.08 Basophil Count 0.05 Basic Metabolic Panel 13-Mar-2023 14:03:00 ResultValue Glucose, Serum 120 H NA 140 K 3.7 CL 105 Bicarbonate, Serum 29 Anion Gap, Serum 10 BUN 18 CREAT 1.20 H GFR Female 47 A Calcium, Serum 9.5 Radiology Results: Impression: Minimal linear possible plate atelectasis or scarring in the left lung base. Xray Chest 2 View PA + Lateral [Mar 13 2023 3:15PM] Impression: No acute intracranial hemorrhage or mass-effect. Mild bilateral ethmoid sinus mucosal thickening. Left maxillary sinus fluid level/thickening and possible dental/carious disease in the left maxilla. CT Head without Contrast [Mar 13 2023 3:13PM] VITAL SIGNS: T PRBP SpO2O2(LPM) %FiO2 Method 13-Mar-2023 16:30:[id number] 98 room air, no respiratory support 13-Mar-2023 15:30:[id number] 97 room air, no respiratory support 13-Mar-2023 14:10:00-72665/78 13-Mar-2023 13:20:[id number]/7 6 96 room air, no respiratory support 13-Mar-2023 13:05:[id number]/7 6 96 room air, no respiratory support [facility] MDM/ED COURSE: PMH: Reviewed PSH: Reviewed Social History: Reviewed. Allergies reviewed. HPI: This is a 77 year old female with history of vertigo, GERD, hypertension, thyroid disorder who presents to the ED today accompanied by her with complaints of dizziness, nausea. Patient states her symptoms started early in the morning on Friday. States she has been at [facility] twice for the symptoms. She initially had epigastric pain with the above symptoms, had imaging of her abdomen which was negative for gallbladder disease. States that she had taken meclizine with improvement of her dizziness initially but today has not been helping. No vomiting, no fevers, no diarrhea. REVIEW OF SYSTEMS: All other systems reviewed and negative except as listed in HPI. PHYSICAL EXAM: GENERAL: Vitals noted, no distress. Alert and oriented x 3. Non-toxic. EENT: TMs clear. (more content not included)... Normal [facility] Risk Screen - Adult Emergenc yon 03-13-2023 Risk Screen - Adult Emergency Preferred Language: Preferred Language: Preferred Language for Discussing Health Care (patient/designee)[facility] Patient Preferred Pharmacy: Patient Preferred Pharmacy Statement: I have reviewed and updated the patient's preferred pharmacy selection for today's visit. Advanced Directives: Advance Directive/DNRyes Advance Directive typeLiving Will Family Violence Adult: Abuse Screen: Are you or have you been threatened or abused physically, emotionally, or sexually by anyoneno Learning Assessment (Patient): Learning Assessment (Patient): Patient is Able to be Assessed for Learningyes Factors Influencing Readiness to Learnn/a Factors that Impact Ability to Learnnone Devices/Methods Used to Communicatenone Learning Preferencesverbal instruction Cultural Considerationsnone Developmental Considerationsnone Anglican Considerationsnone Other Learnersspouse Learning Assessment (Other Learner): Learning Assessment (Other Learner): Other learner availableyes... Learnerspouse Factors Influencing Readiness to Learnn/a Factors that Impact Ability to Learnnone Devices/Methods Used to Communicatenone Learning Preferencesverbal instruction Cultural Considerationsnone Developmental Considerationsnone Anglican Considerationsnone Pressure Injury/TB/Substance: Pressure Injury: Do you have a coughno Smoking Statusnever smoker Alcohol Useoccasionally Drug Usedenies Admission Risk Screen: Significant IndicatorsComplete CAGE: CAGE: Is this an injured patient at a Trauma Center ([facility]/[place]): no Electronic Signatures: Willow Cleary (RN) (Signed 13-Mar-2023 13:25) Authored: Preferred Language, Patient Preferred Pharmacy, Advanced Directives, Family Violence Adult, Learning Assessment (Patient), Learning Assessment (Other Learner), Pressure Injury/TB/Substance, Pressure Injury, CAGE Last Updated: 13-Mar-2023 13:25 by Willow Cleary (RN) Normal [facility] TROPONIN I, HIGH SENSITIVITY on 03-13-2023 TROPONIN I, HIGH SENSITIVITY 7 ng/L Normal 0 - [facility] Comment on above: Result Comment: . Less than 99th percentile of normal range cutoff- Female and children under 18 years old <14 ng/L; Male <21 ng/L: Negative Repeat testing should be performed if clinically indicated. . Female and children under 18 years old 14-50 ng/L; Male 21-50 ng/L: Consistent with possible cardiac damage and possible increased clinical risk. Serial measurements may help to assess extent of myocardial damage. . >50 ng/L: Consistent with cardiac damage, increased clinical risk and myocardial infarction. Serial measurements may help assess extent of myocardial damage. . NOTE: Children less than 1 year old may have higher baseline troponin levels and results should be interpreted in conjunction with the overall clinical context. . NOTE: Troponin I testing is performed using a different testing methodology at [facility] than at other [facility]. Direct result comparisons should only be made within the same method. Performed By: #### T [facility] #### [place] [id number] [place] [address] TROPONIN I, HIGH SENSITIVITY 6 ng/L Normal 0 - [facility] Comment on above: Result Comment: . Less than 99th percentile of normal range cutoff- Female and children under 18 years old <14 ng/L; Male <21 ng/L: Negative Repeat testing should be performed if clinically indicated. . Female and children under 18 years old 14-50 ng/L; Male 21-50 ng/L: Consistent with possible cardiac damage and possible increased clinical risk. Serial measurements may help to assess extent of myocardial damage. . >50 ng/L: Consistent with cardiac damage, increased clinical risk and myocardial infarction. Serial measurements may help assess extent of myocardial damage. . NOTE: Children less than 1 year old may have higher baseline troponin levels and results should be interpreted in conjunction with the overall clinical context. . NOTE: Troponin I testing is performed using a different testing methodology at [facility] than at other [facility]. Direct result comparisons should only be made within the same method. Performed By: #### [facility] #### [facility] [address] [place] [address] Triage - EDon 03-13-2023 Triage - ED Chart Review: PRIMARY ASSESSMENT ABCD Normal Findings: airway open and patent, circulation normal and alert and oriented ARRIVAL INFORMATION Means of Arrival: wheelchair Mode of Arrival: private vehicle Arrival From: home Accompanied By: spouse/significant other Language: Spoken Language Preferred: Macedonian Reading Language Preferred: Macedonian Present on Arrival: Device Present on Arrival to ED: no CHIEF COMPLAINT ALISTAIR ARECHIGA is a Female patient with a chief complaint of dizziness (states she started with epigastric pain 4 days ago and was seen at [place]. then went back the next day with nausea and dizziness. states she felt better until today. this morning c/o increased dizziness not relieved with meclizine). Triage Date/Time: 13-Mar-2023 13:05 CASIE: 3 Pain Rating (0-10): 4 = Moderate Pain location: epigatric Vital Signs: Temperature: 97.6F ( 36.4C) taken temporal Blood Pressure: 155/76 Mean: Heart Rate: 76 Respiratory Rate: 16 Pulse Oximetry: 96% on room air, no respiratory support. Height: 5 feet 1.00 inches. 154.9 CM Weight: 172.4 pounds. Calculated 78.2 kg. (stated) Calculated BMI (kg/m2): 32.591 Calculated BSA (m2) 1.83 Abisai Coma Scale: Best Eye Response: (E4) spontaneous Best Motor Response: (M6) obeys commands Best Verbal Response: (V5) oriented Abisai Score: 15 Allergies: yes Patient has homicidal thoughts: no Symptoms Are POSITIVE For: nausea. Symptoms Are Negative For: vomiting. Last Known Well: unknown Risk Screens Suicide Risk Screen In the Past Month: Have you wished you were or wished you could go to sleep and not wake up no In the Past Month: Have you had any actual thoughts of killing yourself no In Your Lifetime: Have you ever done anything, started to do anything, or prepared to do anything to end your life no Carl Fall Scale Screening Has the patient fallen before (or is the patient in the ED as a result of a fall) has not had a fall Does the patient have an impaired gait does not have impaired gait Is the patient cognitively impaired not cognitively impaired Interventions: Carl Fall Interventions: LOW INTERVENTIONS: *patient oriented to surroundings and call system, * patient/family falls education completed and documented, *patients fall status communicated during bedside handoff, *whiteboard updated, *mode of toileting discussed with patient, *bed in low position with brakes locked, *call light in reach, * non-skid footwear TRAVEL HISTORY Travel History Coronavirus Screening: no exposure or symptoms Travel Exposure History: NO travel to International locations in the past 30 days PAIN Pain Scale Used: ANU Pain Rating (0-10): 4 = Moderate Past Medical History: Past Medical History Reviewedyes Hypertension (HTN): Past Medical History, Active Gastroesophageal Reflux Disorder (GERD): Past Medical History, Active Electronic Signatures: Willow Cleary (CARLYN) (Signed 13-Mar-2023 13:24) Entered: Risk Screens, Pain, Arrival, ABCD, Travel History, Chart Review, Scores, Past Medical History Authored: Quick Triage, Risk Screens, Pain, Arrival, ABCD, Travel History, Chart Review, Scores, Past Medical History Last Updated: 13-Mar-2023 13:24 by Willow Cleary (RN) Normal [facility] URINALYSIS WITH CULTURE IF I NDICATEDon 03-13-2023 Appearance (U) HAZY Normal CLEAR [facility] Comment on above: Performed By: #### U ARFX #### [address] [address] Bilirubin Ql (U) Negative Normal NEGATIVE [facility] Comment on above: Performed By: #### U ARFX #### [address] [address] Color (U) Yellow Normal STRAW,YELLO W [facility] Comment on above: Performed By: #### U ARFX #### [address] [address] Glucose Ql (U) Negative Normal NEGATIVE [facility] Comment on above: Performed By: #### U ARFX #### [address] [address] Hemoglobin Ql (U) Negative Normal NEGATIVE [facility] Comment on above: Performed By: #### U ARFX #### [place] [address] Ketones Ql (U) Negative Normal NEGATIVE [facility] Comment on above: Performed By: #### U ARFX #### [place] [id number] Leukocyte esterase Test strip Ql (U) Negative Normal NEGATIVE [facility] Comment on above: Performed By: #### U ARFX #### [place] [address] Nitrite Ql (U) Negative Normal NEGATIVE [facility] Comment on above: Performed By: #### U ARFX #### [place] [address] pH (U) 8.0 [pH] Normal 5.0 - 8.0 [facility] Comment on above: Performed By: #### U ARFX #### [place] [address] Protein Ql (U) Negative Normal NEGATIVE [facility] Comment on above: Performed By: #### U ARFX #### [place] [address] Specific gravity (U) [Rel density] 1.010 Normal 1.005 - 1.035 [facility] Comment on above: Performed By: #### U ARFX #### [place] [address] Urobilinogen (U) [Mass/Vol] mg/dL Normal 0.0 - 1.9 [facility] Comment on above: Performed By: #### U ARFX #### [place] [address] Absolute lymphocyte countOrd ered By: Dr. Landis on 03-09-2023 Lymphocytes Auto (Unsp spec) [#/Vol] 2.71 10*3/uL 0.83-4.51 [facility] Basophil percentageOrdered B y: Dr. Landis on 03-09-2023 Basophil percentage 0 SEEN /hpf 0-5 [facility] Basophils/100 WBC (Bld) 0.8 % 0-1 [facility] Bilirubin [Mass/Vol] 0.30 mg/dL 0.20-1.00 [facility] Comment on above: For patients on eltr ombopag therapy, use of Dimension Shirley TBIL is not recommended. Chloride [Moles/Vol] 109 mmol/L 98-107 [facility] Eosinophils/100 WBC (Bld) 2.6 % 0-5 [facility] Glucose [Mass/Vol] 106 mg/dL 74-106 [facility] Comment on above: Fasting Glucose resu lt from 100 to 125 mg/dL suggests IMPAIRED HOMEOSTASIS per A.D.A. criteria. Neutrophils (Bld) [#/Vol] 3.9 10*3/uL 2.0-7.7 [facility] Neutrophils/100 WBC (Bld) 51.7 % 47-70 [facility] Potassium [Moles/Vol] 3.8 mmol/L 3.5-5.1 [facility] Protein [Mass/Vol] 7.2 g/dL 6.4-8.2 [facility] Sodium [Moles/Vol] 142 mmol/L 136-145 [facility] WBC (Bld) [#/Vol] 7.4 10*3/uL 4.4-11.0 [facility] Bilirubin Test strip Ql (U)O rdered By: Dr. Landis on 03-09-2023 Bilirubin Ql (U) Negative Negative [facility] Blood erythrocytes count (nu mber/volume)Ordered By: Dr. Landis on 03-09-2023 RBC (Bld) [#/Vol] 4.34 10*6/uL 4.2-5.4 [facility] Blood hemoglobin measurement (mass/volume)Ordered By: Dr. Landis on 03-09-2023 Hemoglobin (Bld) [Mass/Vol] 12.4 g/dL 12.0-15.0 [facility] Blood lymphocytes/100 leukoc ytesOrdered By: Dr. Landis on 03-09-2023 Lymphocytes/100 WBC (Bld) 36.4 % 19-41 [facility] Blood monocytes/100 leukocyt esOrdered By: Dr. Landis on 03-09-2023 Monocytes/100 WBC (Bld) 8.1 % 0-10 [facility] Blood platelet mean volumeOr dered By: Dr. Landis on 03-09-2023 Platelet mean volume (Bld) [Entitic vol] 9.5 fL 6.2-12.0 [facility] Determination of erythrocyte mean corpuscular volume (MCV)Ordered By: Dr. Landis on 03-09-2023 MCV (RBC) [Entitic vol] 89.2 fL 81-99 [facility] Hematocrit Auto (Bld) [Volum e fraction]Ordered By: Dr. Landis on 03-09-2023 Hematocrit (Bld) [Volume fraction] 38.7 % 37-47 [facility] Ketones Test strip Ql (U)Ord ered By: Dr. Landis on 03-09-2023 Ketones Ql (U) Negative Negative [facility] Laboratory - Chemistry and C hemistry - challengeOrdered By: Dr. Landis on 03-09-2023 ALP [Catalytic activity/Vol] 37 U/L 45-117 [facility] ALT [Catalytic activity/Vol] 30 U/L 13-56 [facility] CO2 [Moles/Vol] 27.0 mmol/L 21.0-32.0 [facility] Globulin (S) [Mass/Vol] 3.7 g/dL 2.2-4.2 [facility] Lipase [Catalytic activity/Vol] 442 U/L 73-393 [facility] Urea nitrogen/Creatinine [Mass ratio] 15.6 mg/mg 10-20 [facility] Laboratory - Hematology and Cell countsOrdered By: Dr. Landis on 03-09-2023 Erythrocyte distribution width (RBC) [Entitic vol] 48.1 fL 35.1-43.9 [facility] Erythrocyte distribution width (RBC) [Ratio] 14.7 % 11.6-14.6 [facility] Immature granulocytes/100 WBC (Bld) 0.400 % 0.0-0.9 [facility] Comment on above: IG% - Immature Granu locytes (promyelocytes, myelocytes and metamyelocytes) > 1% indicates that a LEFT SHIFT is Present. MCH (RBC) [Entitic mass] 28.6 pg 27.0-32.0 [facility] Nucleated RBC/100 WBC (Bld) [Ratio] 0 % 0-5 [facility] MCHC Auto (RBC) [Mass/Vol]Or dered By: Dr. Landis on 03-09-2023 MCHC (RBC) [Mass/Vol] 32.0 g/dL 32-36 [facility] Mucus LM Ql (Urine sed)Order ed By: Dr. Landis on 03-09-2023 Mucus Ql (Urine sed) 0 SEEN /hpf [facility] Nitrite Test strip Ql (U)Ord ered By: Dr. Landis on 03-09-2023 Nitrite Ql (U) Negative Negative [facility] No Panel InformationOrdered By: Dr. Landis on 03-09-2023 Estimated Creatinine Clearance Calc 25.61 ml/min [facility] Estimated GFR (MDRD) Amer 47 mL/min >60 [facility] Comment on above: GFR Calc Estimated GFR (MDRD) Non-Af Amer 39 mL/min >60 [facility] Comment on above: Non- GFR Calc Troponin I High Sensitivity 9 pg/mL 3.0-54.0 [facility] Comment on above: Please Note: New Lilian t Units and Gender Specific Reference Ranges. For more information see Policy Stat Procedure Shirley High Sensitivity Troponin (TNIH) and attachments. Platelets bldOrdered By: Dr. Landis on 03-09-2023 Platelets (Bld) [#/Vol] 384 10*3/uL 150-450 [facility] Protein Test strip Ql (U)Ord ered By: Dr. Landis on 03-09-2023 Protein Ql (U) Negative Negative [facility] Serum or plasma albumin be urement (mass/volume)Ordered By: Dr. Landis on 03-09-2023 Albumin [Mass/Vol] 3.5 g/dL 3.2-5.0 [facility] Serum or plasma albumin/glob ulin mass ratioOrdered By: Dr. Landis on 03-09-2023 Albumin/Globulin [Mass ratio] 0.9 {ratio} 0.9-2.4 [facility] Serum or plasma calcium be urement (mass/volume)Ordered By: Dr. Landis on 03-09-2023 Calcium [Mass/Vol] 9.4 mg/dL 8.5-10.1 [facility] Serum or plasma creatinine m easurement (mass/volume)Ordered By: Dr. Landis on 03-09-2023 Creatinine [Mass/Vol] 1.41 mg/dL 0.55-1.02 [facility] Comment on above: The validity of the calculated GFR & GFRAA in patients over 70 years has not been determined. Clinical correlation is essential. Serum or plasma urea nitroge n measurement (mass/volume)Ordered By: Dr. Landis on 03-09-2023 Urea nitrogen [Mass/Vol] 22 mg/dL 7-18 [facility] Squamous epithelial cells de tection in urine sediment by light microscopyOrdered By: Dr. Landis on 03-09-2023 Epithelial cells.squamous LM Ql (Urine sed) 0-5 SEEN /hpf 5-10 [facility] Thin prep Papanicolaou smear with manual screeningOrdered By: Dr. Landis on 03-09-2023 Thin prep Papanicolaou smear with manual screening 24 U/L 15-37 [facility] Thin prep Papanicolaou smear with manual screening 6 5-15 [facility] Urine blood detectionOrdered By: Dr. Landis on 03-09-2023 RBC Ql (U) Negative Negative [facility] RBC Ql (U) 0-5 SEEN /hpf 0-5 [facility] Urine clarityOrdered By: Dr. Landis on 03-09-2023 Clarity (U) Clear Clear [facility] Urine color determinationOrd ered By: Dr. Landis on 03-09-2023 Color (U) Yellow Yellow [facility] Urine glucose detectionOrder ed By: Dr. Landis on 03-09-2023 Glucose Ql (U) Normal mg/dl Normal [facility] Urine leukocyte esterase det ection by dipstickOrdered By: Dr. Landis on 03-09-2023 Leukocyte esterase Test strip Ql (U) 25 /ul Negative [facility] Urine pHOrdered By: Dr. Katie rubalcava on 03-09-2023 pH (U) 6.0 [pH] 5.0 - 8.0 [facility] Urine sediment bacteria coun t by microscopy (number/high power field)Ordered By: Dr. Landis on 03-09-2023 Bacteria LM.HPF (Urine sed) [#/Area] 1 /[HPF] None Seen [facility] Urine specific gravity measu rementOrdered By: Dr. Landis on 03-09-2023 Specific gravity (U) [Rel density] 1.020 1.002-1.030 [facility] Urobilinogen Auto test strip Ql (U)Ordered By: Dr. Landis on 03-09-2023 Urobilinogen Ql (U) Normal mg/dl Normal [facility] URINE JESÚS CULTURE-IDENTIFICA [place] ([id number])Ordered By: Police Pilot on 12-24-2022 Bacteria identified Cx Nom (U) Final report Abnormal [facility]; [facility] Work Phone: Comment on above: PERFORMED BY: [employer] [place] [id number] Information: SRC:UC Bacteria identified Cx Nom (U) Escherichia coli Abnormal [facility]; [facility] Work Phone: Comment on above: Cefazolin <=4 ug/mLC efazolin with an HILARY <=16 predicts susceptibility to the oral agentscefaclor, cefdinir, cefpodoxime, cefprozil, cefuroxime, cephalexin,and loracarbef when used for therapy of uncomplicated urinary tractinfections due to E. coli, Klebsiella pneumoniae, and Proteusmirabilis.4,000 Colonies/mL PERFORMED BY: [employer] [place] [id number] Information: SRC:UC Bacteria identified Cx Nom (U) BETAGB Abnormal [facility]; [facility] Work Phone: Comment on above: Beta hemolytic Strep tococcus, group BGreater than 100,000 colony forming units per mLPenicillin and ampicillin are drugs of choice for treatment ofbeta-hemolytic streptococcal infections. Susceptibility testing ofpenicillins and other beta-lactam agents approved by the FDA fortreatment of beta-hemolytic streptococcal infections need not beperformed routinely because nonsusceptible isolates are extremelyrare in any beta-hemolytic streptococcus and have not been reportedfor Streptococcus pyogenes (group A). (CLSI) S = Susceptible; I = Intermediate; R = Resistant P = Positive; N = Negative MICS are expressed in micrograms per mL Antibiotic RSLT#1 RSLT#2 RSLT#3 RSLT#4Amoxicillin/Clavulanic Acid SAmpicillin SCefepime SCeftriaxone SCefuroxime SCiprofloxacin RErtapenem SGentamicin SImipenem SLevofloxacin RMeropenem SNitrofurantoin SPiperacillin/Tazobactam STetracycline RTobramycin STrimethoprim/Sulfa S PERFORMED BY: [employer] [id number] [facility] [id number] Information: SRC: Urinalysis, Office ([id number])Or dered By: Citlali Gonzalez on 12-24-2022 Bilirubin Ql (U) Negative Normal Com[facility]; [facility] Work Phone: Glucose Test strip (U) [Mass/Vol] Negative Normal [facility]; [facility] Work Phone: Hemoglobin Ql (U) Negative Normal Compre[facility]; [facility] Work Phone: Ketones Ql (U) Negative Normal [facility]prehens [facility]; [facility] Work Phone: Leukocyte esterase Test strip Ql (U) Small Normal [facility]; [facility] Work Phone: Nitrite Ql (U) Negative Normal Comprehens [facility]; [facility] Work Phone: pH (U) 6.0 [pH] Normal [facility]; [facility] Work Phone: Protein Ql (U) Negative Normal Comprehens [facility]; [facility] Work Phone: Specific gravity (U) [Rel density] 1.015 1 Normal [facility]; [facility] Work Phone: Urobilinogen (24H U) [Mass/Time] Normal Normal [facility]; [facility] Work Phone: URINE JES[place] ([id number])Ordered By: Police Pilot on 11-07-2022 Bacteria identified Cx Nom (U) Final report Abnormal [facility]; [facility] Work Phone: Comment on above: PATIENT NOT FASTINGP ERFORMED BY: WINDY [employer] [facility] [id number] Information: SRC: Bacteria identified Cx Nom (U) Klebsiella pneumoniae Abnormal Com[facility]; [facility] Work Phone: Comment on above: Cefazolin <=4 ug/mLC efazolin with an HILARY <=16 predicts susceptibility to the oral agentscefaclor, cefdinir, cefpodoxime, cefprozil, cefuroxime, cephalexin,and loracarbef when used for therapy of uncomplicated urinary tractinfections due to E. coli, Klebsiella pneumoniae, and Proteusmirabilis.50,000-100,000 colony forming units per mL PATIENT NOT FASTINGP ERFORMED BY: WINDY [employer] [place] [id number] Information: SRC:CALE Bacteria identified Cx Nom (U) MUG Normal [facility]; [facility] Work Phone: Comment on above: Mixed urogenital jese ra1,000 Colonies/mL S = Susceptible; I = Intermediate; R = Resistant P = Positive; N = Negative MICS are expressed in micrograms per mL Antibiotic RSLT#1 RSLT#2 RSLT#3 RSLT#4Amoxicillin/Clavulanic Acid SAmpicillin RCefepime SCeftriaxone SCefuroxime SCiprofloxacin SErtapenem SGentamicin SImipenem SLevofloxacin SMeropenem SNitrofurantoin IPiperacillin/Tazobactam STetracycline STobramycin STrimethoprim/Sulfa S PATIENT NOT FASTINGP ERFORMED BY: WINDY [employer] [facility] SystemsD[facility] [id number] Information: SRC:CALE Urinalysis, Office ([id number])Or dered By: Sea Parry on 11-07-2022 Bilirubin Ql (U) Negative Normal Comprehe [facility]; [facility] Work Phone: Glucose Test strip (U) [Mass/Vol] Negative Normal [facility]; [facility] Work Phone: Hemoglobin Ql (U) Negative Normal Compreh [facility]; [facility] Work Phone: Ketones Ql (U) Negative Normal Comprehens [facility]; [facility] Work Phone: Leukocyte esterase Test strip Ql (U) Negative Normal [facility]; [facility] Work Phone: Nitrite Ql (U) Negative Normal Comprehens [facility]; [facility] Work Phone: pH (U) 6.0 [pH] Normal [facility]; [facility] Work Phone: Protein Ql (U) Negative Normal Comprehens [facility]; [facility] Work Phone: Specific gravity (U) [Rel density] 1.030 1 Abnormal [facility]; [facility] Work Phone: Urobilinogen (24H U) [Mass/Time] 2 mg/dL Normal [facility]; [facility] Work Phone: Basophil percentageon 2021 Basophil percentage 3.0 mg/dL 2.5-4.9 [facility] Work Phone: Chloride [Moles/Vol] 105 mmol/L 98-107 [facility] Work Phone: Glucose [Mass/Vol] 100 mg/dL 74-106 [facility] Work Phone: Comment on above: Fasting Glucose resu lt from 100 to 125 mg/dL suggests IMPAIRED HOMEOSTASIS per A.D.A. criteria. Potassium [Moles/Vol] 4.2 mmol/L 3.5-5.1 [facility] Work Phone: Sodium [Moles/Vol] 139 mmol/L 136-145 [facility] Work Phone: Laboratory - Chemistry and C hemistry - challengeon 10-31-2022 CO2 [Moles/Vol] 29.0 mmol/L 21.0-32.0 [facility] Work Phone: Urea nitrogen/Creatinine [Mass ratio] 13.8 mg/mg 10-20 [facility] Work Phone: No Panel Informationon 10-31 Estimated GFR (MDRD) Amer 55 mL/min >60 [facility] Work Phone: Comment on above: GFR Calc Estimated GFR (MDRD) Non-Af Amer 45 mL/min >60 [facility] Work Phone: Comment on above: Non- GFR Calc Serum or plasma albumin be urement (mass/volume)on 10-31-2022 Albumin [Mass/Vol] 3.5 g/dL 3.2-5.0 [facility] Work Phone: Serum or plasma calcium be urement (mass/volume)on 10-31-2022 Calcium [Mass/Vol] 9.0 mg/dL 8.5-10.1 [facility] Work Phone: Serum or plasma creatinine m easurement (mass/volume)on 10-31-2022 Creatinine [Mass/Vol] 1.23 mg/dL 0.55-1.02 [facility] Work Phone: Comment on above: The validity of the calculated GFR & GFRAA in patients over 70 years has not been determined. Clinical correlation is essential. Serum or plasma urea nitroge n measurement (mass/volume)on 10-31-2022 Urea nitrogen [Mass/Vol] 17 mg/dL 7-18 [facility] Work Phone: Basophil percentageon 2021 Basophil percentage 2.7 mg/dL 2.5-4.9 [facility] Work Phone: Chloride [Moles/Vol] 105 mmol/L 98-107 [facility] Work Phone: Glucose [Mass/Vol] 106 mg/dL 74-106 [facility] Work Phone: Comment on above: Fasting Glucose resu lt from 100 to 125 mg/dL suggests IMPAIRED HOMEOSTASIS per A.D.A. criteria. Potassium [Moles/Vol] 4.2 mmol/L 3.5-5.1 [facility] Work Phone: Sodium [Moles/Vol] 138 mmol/L 136-145 [facility] Work Phone: Laboratory - Chemistry and C hemistry - challengeon 10-08-2022 CO2 [Moles/Vol] 28.0 mmol/L 21.0-32.0 [facility] Work Phone: Urea nitrogen/Creatinine [Mass ratio] 13.6 mg/mg 10-20 [facility] Work Phone: No Panel Informationon 10-08 Estimated GFR (MDRD) Amer 57 mL/min >60 [facility] Work Phone: Comment on above: GFR Calc Estimated GFR (MDRD) Non-Af Amer 47 mL/min >60 [facility] Work Phone: Comment on above: Non- GFR Calc Serum or plasma albumin be urement (mass/volume)on 10-08-2022 Albumin [Mass/Vol] 3.4 g/dL 3.2-5.0 [facility] Work Phone: Serum or plasma calcium be urement (mass/volume)on 10-08-2022 Calcium [Mass/Vol] 8.7 mg/dL 8.5-10.1 [facility] Work Phone: Serum or plasma creatinine m easurement (mass/volume)on 10-08-2022 Creatinine [Mass/Vol] 1.18 mg/dL 0.55-1.02 [facility] Work Phone: Comment on above: The validity of the calculated GFR & GFRAA in patients over 70 years has not been determined. Clinical correlation is essential. Serum or plasma urea nitroge n measurement (mass/volume)on 10-08-2022 Urea nitrogen [Mass/Vol] 16 mg/dL 7-18 [facility] Work Phone: URINE JES[place]S CULTURE[place]IDENTIF[place] ([id number])Ordered By: Police Pilot on 09-24-2022 Bacteria identified Cx Nom (U) Final report Abnormal [facility]; [facility] Work Phone: Comment on above: PATIENT NOT FASTINGP ERFORMED BY: [employer] [id number] [facility] [id number] Information: SRC: Bacteria identified Cx Nom (U) BETAGB Abnormal [facility]; [facility] Work Phone: Comment on above: Beta hemolytic Strep tococcus, group BGreater than 100,000 colony forming units per mLPenicillin and ampicillin are drugs of choice for treatment ofbeta-hemolytic streptococcal infections. Susceptibility testing ofpenicillins and other beta-lactam agents approved by the FDA fortreatment of beta-hemolytic streptococcal infections need not beperformed routinely because nonsusceptible isolates are extremelyrare in any beta-hemolytic streptococcus and have not been reportedfor Streptococcus pyogenes (group A). (CLSI) PATIENT NOT FASTINGP ERFORMED BY: [employer] [id number] [facility] [id number] Information: SRC: Urinalysis, Office ([id number])Or dered By: Citlali Gonzalez on 09-24-2022 Bilirubin Ql (U) Negative Normal Comprehe nsive [facility]; [facility] Work Phone: Glucose Test strip (U) [Mass/Vol] Negative Normal [facility]; [facility] Work Phone: Hemoglobin Ql (U) + Abnormal Compreh ensive Internal Medicine; [facility] Work Phone: Ketones Ql (U) Negative Normal Comprehens [facility]; [facility] Work Phone: Leukocyte esterase Test strip Ql (U) Moderate Abnormal [facility]; [facility] Work Phone: Nitrite Ql (U) Negative Normal Comprehens [facility]; [facility] Work Phone: pH (U) 6.0 [pH] Normal [facility]; [facility] Work Phone: Protein Ql (U) Negative Normal Comprehens [facility]; [facility] Work Phone: Specific gravity (U) [Rel density] 1.020 1 Normal [facility]; [facility] Work Phone: Urobilinogen (24H U) [Mass/Time] Normal Normal [facility]; [facility] Work Phone: Absolute lymphocyte counton 05-16-2022 Lymphocytes Auto (Unsp spec) [#/Vol] 1.93 10*3/uL 0.83-4.51 [facility] Work Phone: Basophil percentageon 2021 Basophil percentage 3.2 mg/dL 2.5-4.9 [facility] Work Phone: Chloride [Moles/Vol] 112 mmol/L 98-107 [facility] Work Phone: Glucose [Mass/Vol] 99 mg/dL 74-106 [facility] Work Phone: Potassium [Moles/Vol] 4.6 mmol/L 3.5-5.1 [facility] Work Phone: Sodium [Moles/Vol] 144 mmol/L 136-145 [facility] Work Phone: Basophil percentage 0 SEEN /hpf 0-5 [facility] Work Phone: Basophils/100 WBC (Bld) 0.7 % 0-1 [facility] Work Phone: Chloride [Moles/Vol] 108 mmol/L 98-107 [facility] Work Phone: Eosinophils/100 WBC (Bld) 3.5 % 0-5 [facility] Work Phone: Glucose [Mass/Vol] 106 mg/dL 74-106 [facility] Work Phone: Comment on above: Fasting Glucose resu lt from 100 to 125 mg/dL suggests IMPAIRED HOMEOSTASIS per A.D.A. criteria. Neutrophils (Bld) [#/Vol] 3.1 10*3/uL 2.0-7.7 [facility] Work Phone: Neutrophils/100 WBC (Bld) 52.8 % 47-70 [facility] Work Phone: Potassium [Moles/Vol] 4.1 mmol/L 3.5-5.1 [facility] Work Phone: Comment on above: Moderate Hemolysis, Result may be falsely increased. Sodium [Moles/Vol] 142 mmol/L 136-145 [facility] Work Phone: WBC (Bld) [#/Vol] 6.0 10*3/uL 4.4-11.0 [facility] Work Phone: Bilirubin Test strip Ql (U)o n 05-16-2022 Bilirubin Ql (U) Negative Negative [facility] Work Phone: Blood erythrocytes count (nu mber/volume)on 05-16-2022 RBC (Bld) [#/Vol] 4.56 10*6/uL 4.2-5.4 [facility]: Blood hemoglobin measurement (mass/volume)on 05-16-2022 Hemoglobin (Bld) [Mass/Vol] 12.7 g/dL 12.0-15.0 [facility] Work Phone: Blood lymphocytes/100 leukoc yteson 05-16-2022 Lymphocytes/100 WBC (Bld) 32.4 % 19-41 [facility] Work Phone: Blood monocytes/100 leukocyt eson 05-16-2022 Monocytes/100 WBC (Bld) 10.4 % 0-10 [facility] Work Phone: Blood platelet mean volumeon 05-16-2022 Platelet mean volume (Bld) [Entitic vol] 9.8 fL 6.2-12.0 [facility] Work Phone: Determination of erythrocyte mean corpuscular volume (MCV)on 05-16-2022 MCV (RBC) [Entitic vol] 87.3 fL 81-99 [facility] Work Phone: Hematocrit Auto (Bld) [Volum e fraction]on 05-16-2022 Hematocrit (Bld) [Volume fraction] 39.8 % 37-47 [facility] Work Phone: Ketones Test strip Ql (U)on 05-16-2022 Ketones Ql (U) Negative Negative [facility] Work Phone: Laboratory - Chemistry and C hemistry - challengeon 05-16-2022 CO2 [Moles/Vol] 30.0 mmol/L 21.0-32.0 [facility] Work Phone: Urea nitrogen/Creatinine [Mass ratio] 14.9 mg/mg 10-20 [facility] Work Phone: CO2 [Moles/Vol] 29.0 mmol/L 21.0-32.0 [facility] Work Phone: Magnesium [Mass/Vol] 2.2 mg/dL 1.6-2.6 [facility] Work Phone: Comment on above: Moderate Hemolysis, Result may be falsely increased. Urea nitrogen/Creatinine [Mass ratio] 14.2 mg/mg 10-20 [facility] Work Phone: Laboratory - Hematology and Cell countson 05-16-2022 Erythrocyte distribution width (RBC) [Entitic vol] 47.1 fL 35.1-43.9 [facility] Work Phone: Erythrocyte distribution width (RBC) [Ratio] 14.7 % 11.6-14.6 [facility] Work Phone: Immature granulocytes/100 WBC (Bld) 0.200 % 0.0-0.9 [facility] Work Phone: Comment on above: IG% - Immature Granu locytes (promyelocytes, myelocytes and metamyelocytes) > 1% indicates that a LEFT SHIFT is Present. MCH (RBC) [Entitic mass] 27.9 pg 27.0-32.0 [facility] Work Phone: Nucleated RBC/100 WBC (Bld) [Ratio] 0 % 0-5 [facility] Work Phone: MCHC Auto (RBC) [Mass/Vol]on 05-16-2022 MCHC (RBC) [Mass/Vol] 31.9 g/dL 32-36 [facility] Work Phone: Mucus LM Ql (Urine sed)on Mucus Ql (Urine sed) 0 SEEN /hpf [facility] Work Phone: Nitrite Test strip Ql (U)on 05-16-2022 Nitrite Ql (U) Negative Negative [facility] Work Phone: No Panel Informationon 05-16 Estimated GFR (MDRD) Amer 45 mL/min >60 [facility] Work Phone: Estimated GFR (MDRD) Non-Af Amer 37 mL/min >60 [facility] Work Phone: Estimated Creatinine Clearance Calc 24.78 ml/min [facility] Work Phone: Troponin I High Sensitivity 8 pg/mL 3.0-54.0 [facility] Work Phone: Comment on above: Please Note: New Lilian t Units and Gender Specific Reference Ranges. For more information see Policy Stat Procedure Shirley High Sensitivity Troponin (TNIH) and attachments. Estimated GFR (MDRD) Amer 40 mL/min >60 [facility] Work Phone: Comment on above: GFR Calc Estimated GFR (MDRD) Non-Af Amer 33 mL/min >60 [facility] Work Phone: Comment on above: Non- GFR Calc Platelets bldon 05-16-2022 Platelets (Bld) [#/Vol] 346 10*3/uL 150-450 [facility] Work Phone: Protein Test strip Ql (U)on 05-16-2022 Protein Ql (U) Negative Negative [facility] Work Phone: Serum or plasma albumin be urement (mass/volume)on 05-16-2022 Albumin [Mass/Vol] 3.5 g/dL 3.2-5.0 [facility] Work Phone: Serum or plasma calcium be urement (mass/volume)on 05-16-2022 Calcium [Mass/Vol] 8.7 mg/dL 8.5-10.1 [facility] Work Phone: Calcium [Mass/Vol] 8.7 mg/dL 8.5-10.1 [facility] Work Phone: Serum or plasma creatinine m easurement (mass/volume)on 05-16-2022 Creatinine [Mass/Vol] 1.48 mg/dL 0.55-1.02 [facility] Work Phone: Comment on above: The validity of the calculated GFR & GFRAA in patients over 70 years has not been determined. Clinical correlation is essential. Creatinine [Mass/Vol] 1.62 mg/dL 0.55-1.02 [facility] Work Phone: Comment on above: The validity of the calculated GFR & GFRAA in patients over 70 years has not been determined. Clinical correlation is essential. Serum or plasma urea nitroge n measurement (mass/volume)on 05-16-2022 Urea nitrogen [Mass/Vol] 22 mg/dL - [facility] Work Phone: Urea nitrogen [Mass/Vol] 23 mg/dL 06-17 [facility] Work Phone: Squamous epithelial cells de tection in urine sediment by light microscopyon 05-16-2022 Epithelial cells.squamous LM Ql (Urine sed) 0-5 SEEN /hpf 5-10 [facility] Work Phone: Thin prep Papanicolaou smear with manual screeningon 05-16-2022 Thin prep Papanicolaou smear with manual screening 5 5-15 [facility] Work Phone: Urine blood detectionon 05-01 RBC Ql (U) Negative Negative [facility] Work Phone: RBC Ql (U) 0 SEEN /hpf 0-5 [facility] Work Phone: Urine clarityon 05-16-2022 Clarity (U) Clear Clear [facility] Work Phone: Urine color determinationon 05-16-2022 Color (U) Yellow Yellow [facility] Work Phone: Urine glucose detectionon Glucose Ql (U) Normal mg/dl Normal [facility] Work Phone: Urine leukocyte esterase det ection by dipstickon 05-16-2022 Leukocyte esterase Test strip Ql (U) Negative Negative [facility] Work Phone: Urine pHon 05-16-2022 pH (U) 7.0 [pH] 5.0 - 8.0 [facility] Work Phone: Urine sediment bacteria coun t by microscopy (number/high power field)on 05-16-2022 Bacteria LM.HPF (Urine sed) [#/Area] RARE /hpf None Seen [facility] Work Phone: Urine specific gravity measu rementon 05-16-2022 Specific gravity (U) [Rel density] 1.010 1.002-1.030 [facility] Work Phone: Urobilinogen Auto test strip Ql (U)on 05-16-2022 Urobilinogen Ql (U) Normal mg/dl Normal [facility] Work Phone: Blood Glucose , Office [phone])Ordered By: Marry Marroquin on 03-11-2022 Glucose Glucometer (BldC) [Moles/Vol] 109 1 Normal [facility]; [facility] Work Phone: HgA1C , Office ([phone])Ordere d By: Marry Marroquin on 03-11-2022 HbA1c (Bld) [Mass fraction] 5.7 % Normal 4.6 - 7.1 [facility]; [facility] Work Phone: Metabolic Panel, Comprehensi ve ([phone])Ordered By: Police Pilot on 03-11-2022 Albumin [Mass/Vol] 3.9 g/dL Normal 3.7-4.7 [facility]; [facility] Work Phone: Comment on above: PATIENT NOT FASTINGP ERFORMED BY: [facility] [id number] [facility] [id number] Albumin/Globulin [Mass ratio] 1.4 {ratio} Normal 1.2-2.2 [facility]; [facility] Work Phone: Comment on above: PATIENT NOT FASTINGP ERFORMED BY: WINDY [facility] [id number]Dublin [place] [id number] ALP [Catalytic activity/Vol] 29 U/L Abnormal 44-121 [facility]; [facility] Work Phone: Comment on above: PATIENT NOT FASTINGP ERFORMED BY: CB [facility] [id number]Dublin [place] [id number] ALT [Catalytic activity/Vol] 20 U/L Normal 0-32 [facility]; [facility] Work Phone: Comment on above: PATIENT NOT FASTINGP ERFORMED BY: CB [facility] [id number]Dublin [place] [id number] AST [Catalytic activity/Vol] 23 U/L Normal 0-40 [facility]; [facility] Work Phone: Comment on above: PATIENT NOT FASTINGP ERFORMED BY: CB [facility] [id number]Dublin [place] [id number] Bilirubin [Mass/Vol] 0.4 mg/dL Normal 0.0-1.2 [facility] Work Phone: Comment on above: PATIENT NOT FASTINGP ERFORMED BY: CB [facility] [id number]Dublin [place] [id number] Calcium [Mass/Vol] 9.7 mg/dL Normal 8.7-10.3 [facility]; [facility] Work Phone: Comment on above: PATIENT NOT FASTINGP ERFORMED BY: CB [facility] [id number]Dublin [place] [id number] Chloride [Moles/Vol] 106 mmol/L Normal 96-106 [facility] Work Phone: Comment on above: PATIENT NOT FASTINGP ERFORMED BY: CB [facility] [id number]Dublin [place] [id number] CO2 [Moles/Vol] 25 mmol/L Normal 20-29 [facility]; [facility] Work Phone: Comment on above: PATIENT NOT FASTINGP ERFORMED BY: WINDY [id number] [facility] [id number] Creatinine [Mass/Vol] 1.20 mg/dL Abnormal 0.57-1.00 Com prehensive Internal Medicine; [facility] Work Phone: Comment on above: PATIENT NOT FASTINGP ERFORMED BY: WINDY Dias [id number] [facility] [id number] GFR/1.73 sq M.predicted among non-blacks MDRD (S/P/Bld) [Vol rate/Area] 47 mL/min/{1.73_m2} Abnormal Comprehensiv e Internal Medicine; [facility] Work Phone: Comment on above: PATIENT NOT FASTINGP ERFORMED BY: WINDY [id number] [facility] [id number] Globulin (S) [Mass/Vol] 2.7 g/dL Normal 1.5-4.5 [facility]; [facility] Work Phone: Comment on above: PATIENT NOT FASTINGP ERFORMED BY: WINDY [id number] [facility] [id number] Glucose [Mass/Vol] 88 mg/dL Normal 65-99 [facility]; [facility] Work Phone: Comment on above: PATIENT NOT FASTINGP ERFORMED BY: WINDY Labángel [id number] [facility] [id number] Potassium [Moles/Vol] 4.5 mmol/L Normal 3.5-5.2 [facility] prehensive Internal Medicine; [facility] Work Phone: Comment on above: PATIENT NOT FASTINGP ERFORMED BY: WINDY Labángel [id number] [facility] [id number] Protein [Mass/Vol] 6.6 g/dL Normal 6.0-8.5 [facility]; [facility] Work Phone: Comment on above: PATIENT NOT FASTINGP ERFORMED BY: CB [facility] [id number]Dublin [place] [id number] Sodium [Moles/Vol] 144 mmol/L Normal 134-144 Compre hensive Internal Medicine; [facility] Work Phone: Comment on above: PATIENT NOT FASTINGP ERFORMED BY: CB [facility] [id number] [facility] [id number] Urea nitrogen [Mass/Vol] 18 mg/dL Normal 8-27 [facility]; [facility] Work Phone: Comment on above: PATIENT NOT FASTINGP ERFORMED BY: CB [facility] [id number] [address] RoadDuDosher Memorial Hospital [id number] Urea nitrogen/Creatinine [Mass ratio] 15 mg/mg Normal 12-28 [facility]; [facility] Work Phone: Comment on above: PATIENT NOT FASTINGP ERFORMED BY: CB [facility] [id number] [facility] [id number] Metabolic Panel, Comprehensive ([id number]) 47 mL/min/1.73 Abnormal Comprehens saira Internal [facility]; [facility] Work Phone: No Panel Informationon 03-04 Thyroid Stimulating Hormone (TSH) 2.92 uIU/mL 0.358-3.74 [facility] Work Phone: Absolute lymphocyte counton 02-28-2022 Lymphocytes Auto (Unsp spec) [#/Vol] 1.43 10*3/uL 0.83-4.51 [facility] Work Phone: Basophil percentageon 2021 Basophil percentage 0 SEEN /hpf 0-5 [facility] Work Phone: Basophils/100 WBC (Bld) 0.5 % 0-1 [facility] Work Phone: Chloride [Moles/Vol] 109 mmol/L 98-107 [facility] Work Phone: Eosinophils/100 WBC (Bld) 2.0 % 0-5 [facility] Work Phone: Glucose [Mass/Vol] 127 mg/dL 74-106 [facility] Work Phone: Comment on above: Fasting Glucose resu lt greater than or equal to 126 mg/dL suggests DIABETES MELLITUS per A.D.A. criteria. Neutrophils (Bld) [#/Vol] 3.8 10*3/uL 2.0-7.7 [facility] Work Phone: Neutrophils/100 WBC (Bld) 64.9 % 47-70 [facility] Work Phone: Potassium [Moles/Vol] 3.8 mmol/L 3.5-5.1 [facility] Work [facility]: Sodium [Moles/Vol] 141 mmol/L 136-145 [facility] Work Phone: WBC (Bld) [#/Vol] 5.9 10*3/uL 4.4-11.0 [facility] Work Phone: Bilirubin Test strip Ql (U)o n 02-28-2022 Bilirubin Ql (U) Negative Negative [facility] Work Phone: Blood erythrocytes count (nu mber/volume)on 02-28-2022 RBC (Bld) [#/Vol] 4.76 10*6/uL 4.2-5.4 [facility] Work Phone: Blood hemoglobin measurement (mass/volume)on 02-28-2022 Hemoglobin (Bld) [Mass/Vol] 12.5 g/dL 12.0-15.0 [facility] Work Phone: Blood lymphocytes/100 leukoc yteson 02-28-2022 Lymphocytes/100 WBC (Bld) 24.3 % 19-41 [facility] Work Phone: Blood monocytes/100 leukocyt eson 02-28-2022 Monocytes/100 WBC (Bld) 8.0 % 0-10 [facility] Work Phone: Blood platelet mean volumeon 02-28-2022 Platelet mean volume (Bld) [Entitic vol] 9.3 fL 6.2-12.0 [facility] Work Phone: Determination of erythrocyte mean corpuscular volume (MCV)on 02-28-2022 MCV (RBC) [Entitic vol] 84.2 fL 81-99 [facility] Work Phone: Hematocrit Auto (Bld) [Volum e fraction]on 02-28-2022 Hematocrit (Bld) [Volume fraction] 40.1 % 37-47 [facility] Work Phone: Ketones Test strip Ql (U)on 02-28-2022 Ketones Ql (U) Negative Negative [facility] Work Phone: Laboratory - Chemistry and C hemistry - challengeon 02-28-2022 CO2 [Moles/Vol] 28.0 mmol/L 21.0-32.0 [facility] Work Phone: Urea nitrogen/Creatinine [Mass ratio] 18.1 mg/mg 10-20 [facility] Work Phone: Laboratory - Hematology and Cell countson 02-28-2022 Erythrocyte distribution width (RBC) [Entitic vol] 45.5 fL 35.1-43.9 [facility] Work Phone: Erythrocyte distribution width (RBC) [Ratio] 14.8 % 11.6-14.6 [facility] Work Phone: Immature granulocytes/100 WBC (Bld) 0.300 % 0.0-0.9 [facility] Work Phone: Comment on above: IG% - Immature Granu locytes (promyelocytes, myelocytes and metamyelocytes) > 1% indicates that a LEFT SHIFT is Present. MCH (RBC) [Entitic mass] 26.3 pg 27.0-32.0 [facility] Work Phone: Nucleated RBC/100 WBC (Bld) [Ratio] 0 % 0-5 [facility] Work Phone: MCHC Auto (RBC) [Mass/Vol]on 02-28-2022 MCHC (RBC) [Mass/Vol] 31.2 g/dL 32-36 [facility] Work Phone: Mucus LM Ql (Urine sed)on Mucus Ql (Urine sed) 0 SEEN /hpf [facility] Work Phone: Nitrite Test strip Ql (U)on 02-28-2022 Nitrite Ql (U) Negative Negative [facility] Work Phone: No Panel Informationon 02-28 Estimated Creatinine Clearance Calc 25.47 ml/min [facility] Work Phone: Estimated GFR (MDRD) Amer 46 mL/min >60 [facility] Work Phone: Comment on above: GFR Calc Estimated GFR (MDRD) Non-Af Amer 38 mL/min >60 [facility] Work Phone: Comment on above: Non- GFR Calc Troponin I High Sensitivity < 3 pg/mL 3.0-54.0 [facility] Work Phone: Comment on above: Please Note: New Lilian t Units and Gender Specific Reference Ranges. For more information see Policy Stat Procedure Shirley High Sensitivity Troponin (TNIH) and attachments. Platelets bldon 02-28-2022 Platelets (Bld) [#/Vol] 333 10*3/uL 150-450 [facility] Work Phone: Protein Test strip Ql (U)on 02-28-2022 Protein Ql (U) Negative Negative [facility] Work Phone: Serum or plasma calcium be urement (mass/volume)on 02-28-2022 Calcium [Mass/Vol] 8.7 mg/dL 8.5-10.1 [facility] Work Phone: Serum or plasma creatinine m easurement (mass/volume)on 02-28-2022 Creatinine [Mass/Vol] 1.44 mg/dL 0.55-1.02 [facility] Work Phone: Comment on above: The validity of the calculated GFR & GFRAA in patients over 70 years has not been determined. Clinical correlation is essential. Serum or plasma urea nitroge n measurement (mass/volume)on 02-28-2022 Urea nitrogen [Mass/Vol] 26 mg/dL 7-18 [facility] Work Phone: Squamous epithelial cells de tection in urine sediment by light microscopyon 02-28-2022 Epithelial cells.squamous LM Ql (Urine sed) 0 SEEN /hpf 5-10 [facility] Work Phone: Thin prep Papanicolaou smear with manual screeningon 02-28-2022 Thin prep Papanicolaou smear with manual screening 4 5-15 [facility] Work Phone: Urine blood detectionon - RBC Ql (U) Negative Negative [facility] Work Phone: RBC Ql (U) 0 SEEN /hpf 0-5 [facility] Work Phone: Urine clarityon 02-28-2022 Clarity (U) Clear Clear [facility] Work Phone: Urine color determinationon 02-28-2022 Color (U) Yellow Yellow [facility] Work Phone: Urine glucose detectionon Glucose Ql (U) Normal mg/dl Normal [facility] Work Phone: Urine leukocyte esterase det ection by dipstickon 02-28-2022 Leukocyte esterase Test strip Ql (U) Negative Negative [facility] Work Phone: Urine pHon 02-28-2022 pH (U) 6.5 [pH] 5.0 - 8.0 [facility] Work Phone: Urine sediment bacteria coun t by microscopy (number/high power field)on 02-28-2022 Bacteria LM.HPF (Urine sed) [#/Area] 0 /[HPF] None Seen [facility] Work Phone: Urine specific gravity measu rementon 02-28-2022 Specific gravity (U) [Rel density] 1.010 1.002-1.030 [facility] Work Phone: Urobilinogen Auto test strip Ql (U)on 02-28-2022 Urobilinogen Ql (U) Normal mg/dl Normal [facility] Work Phone: Culture, urineon 02-25-2022 Bacteria identified Cx Nom (U) Klebsiella pneumoniae sp pneum [facility] Work Phone: Laboratory - Chemistry and C hemistry - challengeon 02-25-2022 Bilirubin Ql (U) Negative [facility] Work Phone: Glucose Ql (U) Negative [facility] Work Phone: Ketones Ql (U) Trace (5) [facility] Work Phone: pH (U) 5.0 [pH] [facility] Work Phone: Specific gravity (U) [Rel density] 1.005 [facility] Work Phone: Urobilinogen (U) [Mass/Vol] Negative [facility] Work Phone: Laboratory - Hematology and Cell countson 02-25-2022 Hemoglobin Ql (U) Trace [facility] Work Phone: Laboratory - Specimen inform ationon 02-25-2022 Clarity (U) Clear [facility] Work Phone: Color (U) YELLOW [facility] Work Phone: Laboratory - Urinalysison Nitrite Ql (U) Negative [facility] Work Phone: Protein Ql (U) Negative [facility] Work Phone: No Panel Informationon 02-25 Urine Leukocytes Positive [facility] Work Phone: Urine Non-Hemolyzed Blood Trace [facility] Work Phone: Absolute lymphocyte counton 01-26-2022 Lymphocytes Auto (Unsp spec) [#/Vol] 1.63 10*3/uL 0.83-4.51 [facility] Work Phone: Basophil percentageon 2021 Basophils/100 WBC (Bld) 1.0 % 0-1 [facility] Work Phone: Cholesterol [Mass/Vol] 125 mg/dL <200 [facility] Work Phone: Comment on above: <200 mg/dL Desirable 200-240 mg/dL Borderline >240 mg/dL High Risk Eosinophils/100 WBC (Bld) 3.0 % 0-5 [facility] Work Phone: Neutrophils (Bld) [#/Vol] 2.7 10*3/uL 2.0-7.7 [facility] Work Phone: Neutrophils/100 WBC (Bld) 54.0 % 47-70 [facility] Work Phone: Triglyceride [Mass/Vol] 89 mg/dL <199 [facility] Work Phone: Comment on above: The drugs N-Acetylcy steine and Metamizole may falsely depress this assay.Serum Triglycerides Reference Interval Normal <150 mg/dL Borderline high 150 - 199 mg/dL High 200 - 499 mg/dL Very High > or = 500 mg/dL WBC (Bld) [#/Vol] 5.0 10*3/uL 4.4-11.0 [facility] Work Phone: Blood erythrocytes count (nu mber/volume)on 01-26-2022 RBC (Bld) [#/Vol] 4.71 10*6/uL 4.2-5.4 [facility] Work Phone: Blood hemoglobin measurement (mass/volume)on 01-26-2022 Hemoglobin (Bld) [Mass/Vol] 12.5 g/dL 12.0-15.0 [facility] Work Phone: Blood lymphocytes/100 leukoc yteson 01-26-2022 Lymphocytes/100 WBC (Bld) 32.9 % 19-41 [facility] Work Phone: Blood monocytes/100 leukocyt eson 01-26-2022 Monocytes/100 WBC (Bld) 8.9 % 0-10 [facility] Work Phone: Blood platelet mean volumeon 01-26-2022 Platelet mean volume (Bld) [Entitic vol] 9.3 fL 6.2-12.0 [facility] Work Phone: Determination of erythrocyte mean corpuscular volume (MCV)on 01-26-2022 MCV (RBC) [Entitic vol] 83.2 fL 81-99 [facility] Work Phone: Hematocrit Auto (Bld) [Volum e fraction]on 01-26-2022 Hematocrit (Bld) [Volume fraction] 39.2 % 37-47 [facility] Work Phone: Laboratory - Hematology and Cell countson 01-26-2022 Erythrocyte distribution width (RBC) [Entitic vol] 43.5 fL 35.1-43.9 [facility] Work Phone: Erythrocyte distribution width (RBC) [Ratio] 14.5 % 11.6-14.6 [facility] Work Phone: Immature granulocytes/100 WBC (Bld) 0.200 % 0.0-0.9 [facility] Work Phone: Comment on above: IG% - Immature Granu locytes (promyelocytes, myelocytes and metamyelocytes) > 1% indicates that a LEFT SHIFT is Present. MCH (RBC) [Entitic mass] 26.5 pg 27.0-32.0 [facility] Work Phone: Nucleated RBC/100 WBC (Bld) [Ratio] 0 % 0-5 [facility] Work Phone: MCHC Auto (RBC) [Mass/Vol]on 01-26-2022 MCHC (RBC) [Mass/Vol] 31.9 g/dL 32-36 [facility] Work Phone: No Panel Informationon 01-26 Thyroid Stimulating Hormone (TSH) 3.79 uIU/mL 0.358-3.74 [facility] Work Phone: Platelets bldon 01-26-2022 Platelets (Bld) [#/Vol] 314 10*3/uL 150-450 [facility] Work Phone: Serum or plasma cholesterol in HDL measurement (mass/volume)on 01-26-2022 Cholesterol in HDL [Mass/Vol] 64 mg/dL >40 [facility] Work Phone: Comment on above: The drugs N-Acetylcy steine and Metamizole may falsely depress this assay. Reference Range HDL <40 mg/dL Low HDL Cholesterol HDL >or= 60 mg/dL High HDL Cholesterol Serum or plasma cholesterol in VLDL measurement (mass/volume)on 01-26-2022 Cholesterol in VLDL [Mass/Vol] 18 mg/dL 5-40 [facility] Work Phone: Serum or plasma low density lipoprotein (LDL) cholesterol measurement (mass/volume)on 01-26-2022 Cholesterol in LDL [Mass/Vol] 43 mg/dL 0-130 [facility] Work Phone: No Panel Informationon 12-12 Parathyroid Hormone (Intact) 15.7 pg/mL 18.4-80.1 [facility] Work Phone: Vitamin D 25-Hydroxy 29.8 ng/mL [facility] Work Phone: Comment on above: Vitamin D 25(OH) Sta tus Range Deficiency <20 ng/mL (50nmol/L) Insufficiency 20 - 30 ng/mL (50 - 75 nmol/L) Sufficiency 30 - 100 ng/mL (75 - 250 nmol/L) Toxicity >100 ng/mL (>250 nmol/L) Absolute lymphocyte counton 12-03-2021 Lymphocytes Auto (Unsp spec) [#/Vol] 1.88 10*3/uL 0.83-4.51 [facility] Work Phone: Basophil percentageon 2021 Basophils/100 WBC (Bld) 1.2 % 0-1 [facility] Work Phone: Bilirubin [Mass/Vol] 0.40 mg/dL 0.20-1.00 [facility] Work Phone: Comment on above: For patients on eltr ombopag therapy, use of Dimension Shirley TBIL is not recommended. Chloride [Moles/Vol] 110 mmol/L 98-107 [facility] Work Phone: Cholesterol [Mass/Vol] 130 mg/dL <200 Wo will [facility] Work Phone: Comment on above: <200 mg/dL Desirable 200-240 mg/dL Borderline >240 mg/dL High Risk Eosinophils/100 WBC (Bld) 2.6 % 0-5 [facility] Work Phone: Glucose [Mass/Vol] 95 mg/dL 74-106 [facility] Work Phone: Comment on above: Please note revised GLUCOSE reference range effective 2018. Neutrophils (Bld) [#/Vol] 3.5 10*3/uL 2.0-7.7 [facility] Work Phone: Neutrophils/100 WBC (Bld) 57.4 % 47-70 [facility] Work Phone: Potassium [Moles/Vol] 4.2 mmol/L 3.5-5.1 [facility] Work [facility]: Protein [Mass/Vol] 7.3 g/dL 6.4-8.2 [facility] Work Phone: Sodium [Moles/Vol] 140 mmol/L 136-145 [facility] Work Phone: Triglyceride [Mass/Vol] 72 mg/dL [facility] Work Phone: Comment on above: The drugs N-Acetylcy steine and Metamizole may falsely depress this assay.Serum Triglycerides Reference Interval Normal <150 mg/dL Borderline high 150 - 199 mg/dL High 200 - 499 mg/dL Very High > or = 500 mg/dL WBC (Bld) [#/Vol] 6.1 10*3/uL 4.4-11.0 [facility] Work Phone: Blood erythrocytes count (nu mber/volume)on 12-03-2021 RBC (Bld) [#/Vol] 4.82 10*6/uL 4.2-5.4 [facility] Work Phone: Blood hemoglobin measurement (mass/volume)on 12-03-2021 Hemoglobin (Bld) [Mass/Vol] 12.9 g/dL 12.0-15.0 [facility] Work Phone: Blood lymphocytes/100 leukoc yteson 12-03-2021 Lymphocytes/100 WBC (Bld) 31.0 % 19-41 [facility] Work Phone: Blood monocytes/100 leukocyt eson 12-03-2021 Monocytes/100 WBC (Bld) 7.6 % 0-10 [facility] Work Phone: Blood platelet mean volumeon 12-03-2021 Platelet mean volume (Bld) [Entitic vol] 9.1 fL 6.2-12.0 [facility] Work Phone: Determination of erythrocyte mean corpuscular volume (MCV)on 12-03-2021 MCV (RBC) [Entitic vol] 84.9 fL 81-99 [facility] Work Phone: Hematocrit Auto (Bld) [Volum e fraction]on 12-03-2021 Hematocrit (Bld) [Volume fraction] 40.9 % 37-47 [facility] Work Phone: Laboratory - Chemistry and C hemistry - challengeon 12-03-2021 ALP [Catalytic activity/Vol] 26 U/L 45-117 [facility] Work Phone: ALT [Catalytic activity/Vol] 27 U/L 13-56 [facility] Work Phone: CO2 [Moles/Vol] 25.0 mmol/L 21.0-32.0 [facility] Work Phone: Globulin (S) [Mass/Vol] 4.0 g/dL 2.2-4.2 [facility] Work Phone: Urea nitrogen/Creatinine [Mass ratio] 18.0 mg/mg 10-20 [facility] Work Phone: Laboratory - Hematology and Cell countson 12-03-2021 Erythrocyte distribution width (RBC) [Entitic vol] 46.5 fL 35.1-43.9 [facility] Work Phone: Erythrocyte distribution width (RBC) [Ratio] 14.9 % 11.6-14.6 [facility] Work Phone: Immature granulocytes/100 WBC (Bld) 0.200 % 0.0-0.9 [facility] Work Phone: Comment on above: IG% - Immature Granu locytes (promyelocytes, myelocytes and metamyelocytes) > 1% indicates that a LEFT SHIFT is Present. MCH (RBC) [Entitic mass] 26.8 pg 27.0-32.0 [facility] Work Phone: Nucleated RBC/100 WBC (Bld) [Ratio] 0 % 0-5 [facility] Work Phone: MCHC Auto (RBC) [Mass/Vol]on 12-03-2021 MCHC (RBC) [Mass/Vol] 31.5 g/dL 32-36 [facility] Work Phone: No Panel Informationon 12-03 Estimated GFR (MDRD) Amer 55 mL/min >60 [facility] Work Phone: Comment on above: GFR Calc Estimated GFR (MDRD) Non-Af Amer 46 mL/min >60 [facility] Work Phone: Comment on above: Non- GFR Calc Thyroid Stimulating Hormone (TSH) 6.34 uIU/mL 0.358-3.74 [facility] Work Phone: Platelets bldon 12-03-2021 Platelets (Bld) [#/Vol] 344 10*3/uL 150-450 [facility] Work Phone: Serum or plasma albumin be urement (mass/volume)on 12-03-2021 Albumin [Mass/Vol] 3.3 g/dL 3.2-5.0 [facility] Work Phone: Serum or plasma albumin/glob ulin mass ratioon 12-03-2021 Albumin/Globulin [Mass ratio] 0.8 {ratio} 0.9-2.4 [facility] Work Phone: Serum or plasma calcium be urement (mass/volume)on 12-03-2021 Calcium [Mass/Vol] 8.8 mg/dL 8.5-10.1 [facility] Work Phone: Serum or plasma cholesterol in HDL measurement (mass/volume)on 12-03-2021 Cholesterol in HDL [Mass/Vol] 78 mg/dL [facility] Work Phone: Comment on above: The drugs N-Acetylcy steine and Metamizole may falsely depress this assay. Reference Range HDL <40 mg/dL Low HDL Cholesterol HDL >or= 60 mg/dL High HDL Cholesterol Serum or plasma cholesterol in VLDL measurement (mass/volume)on 12-03-2021 Cholesterol in VLDL [Mass/Vol] 14 mg/dL 5-40 [facility] Work Phone: Serum or plasma creatinine m easurement (mass/volume)on 12-03-2021 Creatinine [Mass/Vol] 1.22 mg/dL 0.55-1.02 [facility] Work Phone: Comment on above: The validity of the calculated GFR & GFRAA in patients over 70 years has not been determined. Clinical correlation is essential. Serum or plasma low density lipoprotein (LDL) cholesterol measurement (mass/volume)on 12-03-2021 Cholesterol in LDL [Mass/Vol] 38 mg/dL 0-130 [facility] Work Phone: Serum or plasma urea nitroge n measurement (mass/volume)on 12-03-2021 Urea nitrogen [Mass/Vol] 22 mg/dL 7-18 [facility] Work Phone: Thin prep Papanicolaou smear with manual screeningon 12-03-2021 Thin prep Papanicolaou smear with manual screening 20 U/L 15-37 [facility] Work Phone: Thin prep Papanicolaou smear with manual screening 5 5-15 [facility] Work Phone: Blood Glucose , Office ([phone])Ordered By: Samantha Goodman on 09-26-2021 Glucose Glucometer (BldC) [Moles/Vol] 84 1 Normal [facility]; [facility] Work Phone: Blood Glucose , Office [phone])Ordered By: Afshin Sanchez on 06-08-2021 Glucose Glucometer (BldC) [Moles/Vol] 115 1 Normal [facility]; [facility] Work Phone: HgA1C , Office ([phone])Ordere d By: Afshin Sanchez on 06-08-2021 HbA1c (Bld) [Mass fraction] 5.6 % Normal 4.6 - 7.1 [facility]; [facility] Work Phone: MICROALBUMINOrdered By: Syst em Bookkeeping Service Sales Agent on 06-08-2021 Albumin DL <= 20 mg/L (U) [Mass/Vol] 3.1 ug/mL Normal [facility]; [facility] Work Phone: Comment on above: PATIENT NOT FASTINGP ERFORMED BY: [id number] [place] [id number] Albumin/Creatinine (U) [Mass ratio] 3 {mg/g_creat} Normal 0-29 [facility]; [facility] Work Phone: Comment on above: Normal: 0 - 29 Moder ately increased: 30 - 300 Severely increased: >300 PATIENT NOT FASTINGP ERFORMED BY: WINDY [employer] [id number] [place] [id number] Creatinine (U) [Mass/Vol] 121.1 mg/dL Normal [facility]; [facility] Work Phone: Comment on above: PATIENT NOT FASTINGP ERFORMED BY: [email or web address] LabWokuprp [id number] [place] [id number] TSH (THYROID STIMULATING HOR HAYLIE) ([id number])Ordered By: Police Pilot on 06-08-2021 TSH Qn 4.040 {uIU/mL} Normal 0.450-4.500 [facility]; [facility] Work Phone: Comment on above: PATIENT NOT FASTINGP ERFORMED BY: [employer] [id number] [address] [facility]Good [facility] [id number] URINE [place] ([id number])Ordered By: Police Pilot on 01-30-2021 Bacteria identified Cx Nom (U) Final report Abnormal [facility]; [facility] Work Phone: Comment on above: PATIENT NOT FASTINGP ERFORMED BY: [id number] [facility]SoftD[facility] [id number] Information: SRC: Bacteria identified Cx Nom (U) BETAGB Abnormal [facility]; [facility] Work Phone: Comment on above: Beta hemolytic Strep tococcus, group B4,000 Colonies/mLPenicillin and ampicillin are drugs of choice for treatment ofbeta-hemolytic streptococcal infections. Susceptibility testing ofpenicillins and other beta-lactam agents approved by the FDA fortreatment of beta-hemolytic streptococcal infections need not beperformed routinely because nonsusceptible isolates are extremelyrare in any beta-hemolytic streptococcus and have not been reportedfor Streptococcus pyogenes (group A). (CLSI) PATIENT NOT FASTINGP ERFORMED BY: [employer] Rug[address] [facility]ivalSoftD[facility] [id number] Information: SRC: Urinalysis, Office ([phone])Or dered By: Afshin Sanchez on 01-30-2021 Bilirubin Ql (U) Negative Normal [facility]; [facility] Work Phone: Bilirubin Ql (U) Negative Normal [facility]; [facility] Work Phone: Glucose Test strip (U) [Mass/Vol] Negative Normal [facility]; [facility] Work Phone: Glucose Test strip (U) [Mass/Vol] Negative Normal [facility]; [facility] Work Phone: Hemoglobin Ql (U) Negative Normal Compre[facility]; [facility] Work Phone: Hemoglobin Ql (U) Negative Normal [facility]; [facility] Work Phone: Ketones Ql (U) Negative Normal [facility]prehens [facility]; [facility] Work Phone: Ketones Ql (U) Negative Normal [facility]; [facility] Work Phone: Leukocyte esterase Test strip Ql (U) Negative Normal [facility]; [facility] Work Phone: Leukocyte esterase Test strip Ql (U) Negative Normal [facility]; [facility] Work Phone: Nitrite Ql (U) Negative Normal [facility]; [facility] Work Phone: Nitrite Ql (U) Negative Normal [facility]; [facility] Work Phone: pH (U) 6 [pH] Abnormal [facility]; [facility] Work Phone: Protein Ql (U) Negative Normal [facility]; [facility] Work Phone: Protein Ql (U) Negative Normal [facility]; [facility] Work Phone: Specific gravity (U) [Rel density] 1.015 1 Normal [facility]; [facility] Work Phone: Urobilinogen (24H U) [Mass/Time] Normal Normal [facility]; [facility] Work Phone: URINE [place] ([id number])Ordered By: Police Pilot on 01-03-2021 Bacteria identified Cx Nom (U) Final report Abnormal [facility]; [facility] Work Phone: Comment on above: PERFORMED BY: [employer] [address] [id number] Information: SRC:UR Bacteria identified Cx Nom (U) Enterococcus faecalis Abnormal [facility]; [facility] Work Phone: Comment on above: 25,000-50,000 colony forming units per mLNote: this isolate is vancomycin-susceptible.This information is provided for epidemiologic purposes only:vancomycin is not among the antibiotics recommended for therapyof urinary tract infections caused by Enterococcus.For Enterococcus species, aminoglycosides (except for high-levelresistance screening), cephalosporins, clindamycin, andtrimethoprim-sulfamethoxazole are not effective clinically.(CLSI, [id number], 2016) PERFORMED BY: [employer]6370 [facility] [id number] Information: SRC:UR Other Antibiotic [Susc] MIHEAD Normal [facility]; [facility] Work Phone: Comment on above: S = Susceptible; I = Intermediate; R = Resistant P = Positive; N = Negative MICS are expressed in micrograms per mL Antibiotic RSLT#1 RSLT#2 RSLT#3 RSLT#4Ciprofloxacin RLevofloxacin RNitrofurantoin SPenicillin RTetracycline RVancomycin S PERFORMED BY: [employer] RivalSoftDosher [facility] [id number] Information: SRC:UR Urinalysis, Office ([id number])Or dered By: Marry Marroquin on 01-03-2021 Bilirubin Ql (U) Negative Normal [facility]; [facility] Work Phone: Bilirubin Ql (U) Negative Normal [facility]; [facility] Work Phone: Glucose Test strip (U) [Mass/Vol] Negative Normal [facility]; [facility] Work Phone: Glucose Test strip (U) [Mass/Vol] Negative Normal [facility]; [facility] Work Phone: Hemoglobin Ql (U) Negative Normal [facility]; [facility] Work Phone: Hemoglobin Ql (U) Negative Normal [facility]; [facility] Work Phone: Ketones Ql (U) Negative Normal [facility]; [facility] Work Phone: Ketones Ql (U) Negative Normal [facility]; [facility] Work Phone: Leukocyte esterase Test strip Ql (U) Small Normal [facility]; [facility] Work Phone: Nitrite Ql (U) Negative Normal Comprehens [facility]; [facility] Work Phone: Nitrite Ql (U) Negative Normal [facility]; [facility] Work Phone: pH (U) 7.0 [pH] Normal [facility]; [facility] Work Phone: Protein Ql (U) Negative Normal [facility]prehens [facility]; [facility] Work Phone: Protein Ql (U) Negative Normal [facility]; [facility] Work Phone: Specific gravity (U) [Rel density] 1.015 1 Normal [facility]; [facility] Work Phone: Urobilinogen (24H U) [Mass/Time] Normal Normal [facility]; [facility] Work Phone: URINE [place] ([id number])Ordered By: Police Pilot on 02-28-2020 Bacteria identified Cx Nom (U) Final report Normal [facility] Work Phone: Comment on above: PATIENT NOT FASTINGP ERFORMED BY: WINDY [facility]ok[facility]rp [id number] FlixwagonDosher [facility] Hospital [id number] Information: SRC:UC Bacteria identified Cx Nom (U) MUG Normal [facility] Work Phone: Comment on above: Mixed urogenital jese ra3,000 Colonies/mL PATIENT NOT FASTINGP ERFORMED BY: WINDY [facility] [id number] FlixwagonDosher [facility] Hospital [id number] Information: SRC:UC Urinalysis, Office ([phone])Or dered By: Marry Marroquin on 02-28-2020 Bilirubin Ql (U) Negative Normal [facility] Work Phone: Bilirubin Ql (U) Negative Normal [facility]; [facility] Work Phone: Glucose Test strip (U) [Mass/Vol] Negative Normal [facility] Work Phone: Glucose Test strip (U) [Mass/Vol] Negative Normal [facility]; [facility] Work Phone: Hemoglobin Ql (U) Negative Normal [facility] Work Phone: Hemoglobin Ql (U) Negative Normal [facility]; [facility] Work Phone: Ketones Ql (U) Negative Normal [facility] Work Phone: Ketones Ql (U) Negative Normal [facility]prehens [facility]; [facility] Work Phone: Leukocyte esterase Test strip Ql (U) Negative Normal [facility] Work Phone: Leukocyte esterase Test strip Ql (U) Negative Normal [facility]; [facility] Work Phone: Nitrite Ql (U) Negative Normal Comprehens [facility] Work Phone: Nitrite Ql (U) Negative Normal [facility]prehens [facility]; [facility] Work Phone: pH (U) 6 [pH] Abnormal [facility] Work Phone: Protein Ql (U) + Abnormal [facility]prehens [facility] Work Phone: Specific gravity (U) [Rel density] 1.030 1 Abnormal [facility] Work Phone: Urobilinogen (24H U) [Mass/Time] Normal Normal [facility] Work Phone: Blood Glucose , Office ([phone])Ordered By: Halley Bates on 10-14-2019 Glucose Glucometer (BldC) [Moles/Vol] 121 1 Normal [facility] Work Phone: HgA1C , Office ([phone])Ordere d By: Halley Bates on 10-14-2019 HbA1c (Bld) [Mass fraction] 5.6 % Normal 4.6 - 7.1 [facility] Work Phone: URINE [place] ([id number])Ordered By: Police Pilot on 10-14-2019 Bacteria identified Cx Nom (U) Final report Normal [facility] Work Phone: Comment on above: PATIENT NOT FASTINGP ERFORMED BY: WINDY [facility] [id number] [facility] [id number] Information: SRC:UC Bacteria identified Cx Nom (U) MUG Normal [facility] Work Phone: Comment on above: Mixed urogenital jese ra10,000-25,000 colony forming units per mL PATIENT NOT FASTINGP ERFORMED BY: WINDY LabCoJersey Shore University Medical CenterBijqgs3983 [facility] [id number] Information: SRC:CALE Urinalysis, Office ([phone])Or dered By: Citlali Gonzalez on 10-14-2019 Bilirubin Ql (U) Negative Normal [facility] Work Phone: Bilirubin Ql (U) Negative Normal [facility]; [facility] Work Phone: Glucose Test strip (U) [Mass/Vol] Negative Normal [facility] Work Phone: Glucose Test strip (U) [Mass/Vol] Negative Normal [facility]; [facility] Work Phone: Hemoglobin Ql (U) Negative Normal [facility] Work Phone: Hemoglobin Ql (U) Negative Normal [facility]; [facility] Work Phone: Ketones Ql (U) Negative Normal Comprehens [facility] Work Phone: Ketones Ql (U) Negative Normal Comprehens [facility]; [facility] Work Phone: Leukocyte esterase Test strip Ql (U) Negative Normal [facility] Work Phone: Leukocyte esterase Test strip Ql (U) Negative Normal [facility]; [facility] Work Phone: Nitrite Ql (U) Negative Normal Comprehens [facility] Work Phone: Nitrite Ql (U) Negative Normal Comprehens [facility]; [facility] Work Phone: pH (U) 6 [pH] Abnormal [facility] Work Phone: Protein Ql (U) Negative Normal Comprehens [facility] Work Phone: Protein Ql (U) Negative Normal Comprehens [facility]; [facility] Work Phone: Specific gravity (U) [Rel density] 1.020 1 Normal [facility] Work Phone: Urobilinogen (24H U) [Mass/Time] Normal Normal [facility] Work Phone: URINE [place] ([id number])Ordered By: Police Pilot on 12-02-2018 Bacteria identified Cx Nom (U) Escherichia coli Abnormal [facility] Work Phone: Comment on above: Greater than 100,000 colony forming units per mLCefazolin <=4 ug/mLCefazolin with an HILARY <=16 predicts susceptibility to the oral agentscefaclor, cefdinir, cefpodoxime, cefprozil, cefuroxime, cephalexin,and loracarbef when used for therapy of uncomplicated urinary tractinfections due to E. coli, Klebsiella pneumoniae, and Proteusmirabilis. PATIENT NOT FASTINGP ERFORMED BY: WINDY [employer] [place] [id number] Information: SRC:CALE Bacteria identified Cx Nom (U) Final report Abnormal [facility] Work Phone: Comment on above: PATIENT NOT FASTINGP ERFORMED BY: WINDY [employer] [place] [id number] Information: SRC:CALE Other Antibiotic [facility] Work Phone: Comment on above: S = Susceptible; I = Intermediate; R = Resistant P = Positive; N = Negative MICS are expressed in micrograms per mL Antibiotic RSLT#1 RSLT#2 RSLT#3 RSLT#4Amoxicillin/Clavulanic Acid SAmpicillin RCefepime SCeftriaxone SCefuroxime SCiprofloxacin SErtapenem SGentamicin SImipenem SLevofloxacin SMeropenem SNitrofurantoin SPiperacillin/Tazobactam STetracycline STobramycin STrimethoprim/Sulfa S PATIENT NOT FASTINGP ERFORMED BY: [employer] [place] [id number] Information: SRC:CALE Urinalysis, Office ([id number])Or dered By: Kamla Valentino on 12-02-2018 Bilirubin Ql (U) Negative Normal [facility] Work Phone: Bilirubin Ql (U) Negative Normal Compre[facility]; [facility] Work Phone: Glucose Test strip (U) [Mass/Vol] Negative Normal [facility]; [facility] Work Phone: Glucose Test strip mass conc (U) Negative Normal [facility] Work Phone: Hemoglobin Ql (U) Negative Normal Compreh ens[facility] Work Phone: Hemoglobin Ql (U) Negative Normal Compreh ensive [facility]; [facility] Work Phone: Hemoglobin Test strip Ql (U) Negative Normal [facility] Work Phone: Ketones Ql (U) Negative Normal Comprehens [facility] Work Phone: Ketones Ql (U) Negative Normal Comprehens [facility]; [facility] Work Phone: Leukocyte esterase Test strip Ql (U) Negative Normal [facility] Work Phone: Leukocyte esterase Test strip Ql (U) Negative Normal [facility]; [facility] Work Phone: Nitrite Ql (U) Negative Normal Comprehens [facility] Work Phone: Nitrite Ql (U) Negative Normal Comprehens [facility]; [facility] Work Phone: Nitrite Test strip Ql (U) Negative Normal [facility] Work Phone: pH (U) 6.0 [pH] Normal [facility] Work Phone: pH Test strip (U) 6.0 [pH] Normal Compreh ensive [facility] Medicine Work Phone: Protein Ql (U) Negative Normal Comprehens [facility] Work Phone: Protein Ql (U) Negative Normal Comprehens [facility]; [facility] Work Phone: Protein Test strip Ql (U) Negative Normal [facility] Work Phone: Specific gravity Relative Density (U) 1.030 1 Abnormal Comprehensi ve Internal Medicine Work Phone: Urobilinogen mass/time (24H U) Normal Normal [facility] Work Phone: [id number] ([phone])Ordered By: Police Pilot on 07-27-2018 AFP.tumor marker mass conc 2.8 ng/mL Normal 0.0-8.3 [facility] Work Phone: Comment on above: Cristofer ECLIA methodol ogy PATIENT WAS FASTINGP ERFORMED BY: LabCoJersey Shore University Medical CenterNgemmp9085 [facility] [id number] CBC, Platelets & Auto Diff ( [id number])Ordered By: Police Pilot on 07-27-2018 Basophils #/vol (Bld) 0.0 {x10E3/uL} Normal 0.0-0.2 [facility] Work Phone: Comment on above: PATIENT WAS FASTINGP ERFORMED BY: LabWokupUNM Children's HospitalVvdugq3131 [facility] [id number] Basophils (Bld) [#/Vol] 0.0 10*3/uL Normal 0.0-0.2 [facility]; [facility] Work Phone: Comment on above: PATIENT WAS FASTINGP ERFORMED BY: LabWokupUNM Children's HospitalSnoego0696 [facility] [id number] Basophils Auto #/vol (Bld) 0.0 {x10E3/uL} Normal 0.0-0.2 [facility] Work Phone: Basophils/100 WBC (Bld) 1 % Normal [facility] Work Phone: Comment on above: PATIENT WAS FASTINGP ERFORMED BY: LabExcels[facility] Center Klfhik0153 [facility] [id number] Basophils/100 WBC Auto (Bld) 1 % Normal [facility] Work Phone: Eosinophils #/vol (Bld) 0.2 {x10E3/uL} Normal 0.0-0.4 [facility] Work Phone: Comment on above: PATIENT WAS FASTINGP ERFORMED BY: LabWokup Pjdxpb9179 [address] [facility] [id number] Eosinophils (Bld) [#/Vol] 0.2 10*3/uL Normal 0.0-0.4 [facility]; [facility] Work Phone: Comment on above: PATIENT WAS FASTINGP ERFORMED BY: WINDY Menjivarlin6370 [facility] [id number] Eosinophils Auto #/vol (Bld) 0.2 {x10E3/uL} Normal 0.0-0.4 [facility] Work Phone: Eosinophils/100 WBC (Bld) 2 % Normal [facility] Work Phone: Comment on above: PATIENT WAS FASTINGP ERFORMED BY: WINDY Menjivarlin6370 [facility] [id number] Eosinophils/100 WBC Auto (Bld) 2 % Normal [facility] Work Phone: Erythrocyte distribution width Auto Ratio (RBC) 14.1 % Normal 12.3-15.4 [facility] Work Phone: Erythrocyte distribution width Ratio (RBC) 14.1 % Normal 12.3-15.4 [facility] Work Phone: Comment on above: PATIENT WAS FASTINGP ERFORMED BY: WINDY Menjivarlin6370 [facility] [id number] Hematocrit Auto Volume Fraction (Bld) 42.7 % Normal 34.0-46.6 [facility] Work Phone: Hematocrit Volume Fraction (Bld) 42.7 % Normal 34.0-46.6 [facility] Work Phone: Comment on above: PATIENT WAS FASTINGP ERFORMED BY: WINDY Kasidie.comHenry Ford Macomb Hospital6370 [facility] [id number] Hemoglobin mass conc (Bld) 13.7 g/dL Normal 11.1-15.9 [facility] Work Phone: Comment on above: PATIENT WAS FASTINGP ERFORMED BY: WINDY [facility]ÁngelJersey Shore University Medical CenterEhcipv5555 [facility] [id number] Immature granulocytes #/vol (Bld) 0.0 {x10E3/uL} Normal 0.0-0.1 [facility] Work Phone: Comment on above: PATIENT WAS FASTINGP ERFORMED BY: LabHenry Ford Macomb Hospital6370 [facility] [id number] Immature granulocytes (Bld) [#/Vol] 0.0 10*3/uL Normal 0.0-0.1 [facility]; [facility] Work Phone: Comment on above: PATIENT WAS FASTINGP ERFORMED BY: [place] [id number] [facility] [id number] Immature granulocytes/100 WBC (Bld) 0 % Normal [facility] Work Phone: Comment on above: PATIENT WAS FASTINGP ERFORMED BY: [place] [id number] [facility] [id number] Lymphocytes #/vol (Bld) 2.3 {x10E3/uL} Normal 0.7-3.1 [facility] Work Phone: Comment on above: PATIENT WAS FASTINGP ERFORMED BY: [place] [id number] [facility] [id number] Lymphocytes (Bld) [#/Vol] 2.3 10*3/uL Normal 0.7-3.1 [facility]; [facility] Work Phone: Comment on above: PATIENT WAS FASTINGP ERFORMED BY: [place] [id number] [facility] [id number] Lymphocytes Auto #/vol (Bld) 2.3 {x10E3/uL} Normal 0.7-3.1 [facility] Work Phone: Lymphocytes/100 WBC (Bld) 33 % Normal [facility] Work Phone: Comment on above: PATIENT WAS FASTINGP ERFORMED BY: LabJessica Ville [id number] [facility] [id number] Lymphocytes/100 WBC Auto (Bld) 33 % Normal [facility] Work Phone: MCH Auto Entitic mass (RBC) 27.9 pg Normal 26.6-33.0 [facility] Work Phone: MCH Entitic mass (RBC) 27.9 pg Normal 26.6-33.0 Co mprensive Internal Medicine Work Phone: Comment on above: PATIENT WAS FASTINGP ERFORMED BY: WINDY [facility]6370 [facility] [id number] MCHC Auto mass conc (RBC) 32.1 g/dL Normal 31.5-35.7 [facility] Work Phone: MCHC mass conc (RBC) 32.1 g/dL Normal 31.5-35.7 Comp [facility] Internal Medicine Work Phone: Comment on above: PATIENT WAS FASTINGP ERFORMED BY: WINDY Menjivarlin6370 [facility] [id number] MCV Auto Entitic volume (RBC) 87 fL Normal 79-97 [facility] Work Phone: MCV Entitic volume (RBC) 87 fL Normal 79-97 [facility] Work Phone: Comment on above: PATIENT WAS FASTINGP ERFORMED BY: WINDY [facility] Harlqt5126 [facility] [id number] Monocytes #/vol (Bld) 0.5 {x10E3/uL} Normal 0.1-0.9 [facility] Work Phone: Comment on above: PATIENT WAS FASTINGP ERFORMED BY: [address] [id number] Monocytes (Bld) [#/Vol] 0.5 10*3/uL Normal 0.1-0.9 [facility]; [facility] Work Phone: Comment on above: PATIENT WAS FASTINGP ERFORMED BY: [place] [id number] [facility] [id number] Monocytes Auto #/vol (Bld) 0.5 {x10E3/uL} Normal 0.1-0.9 [facility] Work Phone: Monocytes/100 WBC (Bld) 7 % Normal [facility] Work Phone: Comment on above: PATIENT WAS FASTINGP ERFORMED BY: WINDY [facility] Fcgdxw2810 [address] [facility] [id number] Monocytes/100 WBC Auto (Bld) 7 % Normal [facility] Work Phone: Neutrophils #/vol (Bld) 3.9 {x10E3/uL} Normal 1.4-7.0 [facility] Work Phone: Comment on above: PATIENT WAS FASTINGP ERFORMED BY: LabExcelsior [facility] Center Jjqwco6152 [address] [facility] [id number] Neutrophils (Bld) [#/Vol] 3.9 10*3/uL Normal 1.4-7.0 [facility]; [facility] Work Phone: Comment on above: PATIENT WAS FASTINGP ERFORMED BY: WINDY [facility] Zzqfki7305 [facility] [id number] Neutrophils Auto #/vol (Bld) 3.9 {x10E3/uL} Normal 1.4-7.0 [facility] Work Phone: Neutrophils/100 WBC (Bld) 57 % Normal [facility] Work Phone: Comment on above: PATIENT WAS FASTINGP ERFORMED BY: WINDY [facility] Vjexjv5818 [facility] [id number] Neutrophils/100 WBC Auto (Bld) 57 % Normal [facility] Work Phone: Platelets #/vol (Bld) 359 {x10E3/uL} Normal 150-379 [facility] Work Phone: Comment on above: PATIENT WAS FASTINGP ERFORMED BY: LabHenry Ford Macomb Hospital6370 [facility] [id number] Platelets (Bld) [#/Vol] 359 10*3/uL Normal 150-379 [facility]; [facility] Work Phone: Comment on above: PATIENT WAS FASTINGP ERFORMED BY: WINDY LabHenry Ford Macomb Hospital6370 [address] [facility] [id number] Platelets Auto #/vol (Bld) 359 {x10E3/uL} Normal 150-379 [facility] Work Phone: RBC #/vol (Bld) 4.91 {x10E6/uL} Normal 3.77-5.28 Comp [facility] Internal Medicine Work Phone: Comment on above: PATIENT WAS FASTINGP ERFORMED BY: LabCoJersey Shore University Medical CenterOlrsst6485 [facility] [id number] RBC (Bld) [#/Vol] 4.91 10*6/uL Normal 3.77-5.28 Compr [facility] Internal Medicine; [facility] Work Phone: Comment on above: PATIENT WAS FASTINGP ERFORMED BY: LabCo Hfaslq7935 [facility] [id number] RBC Auto #/vol (Bld) 4.91 {x10E6/uL} Normal 3.77-5.28 [facility] Work Phone: WBC #/vol (Bld) 6.9 {x10E3/uL} Normal 3.4-10.[address] [facility] Internal Medicine Work Phone: Comment on above: PATIENT WAS FASTINGP ERFORMED BY: LabCoJersey Shore University Medical CenterRcorqy7311 [facility] [id number] WBC (Bld) [#/Vol] 6.9 10*3/uL Normal 3.4-10.8 [facility]prselect [facility]; [facility] Work Phone: Comment on above: PATIENT WAS FASTINGP ERFORMED BY: LabCoJersey Shore University Medical CenterAbuxzg7621 [facility] [id number] WBC Auto #/vol (Bld) 6.9 {x10E3/uL} Normal 3.4-10.8 [facility] Internal Medicine Work Phone: HGB A1C ([id number])Ordered By: Timbo yste Bookkeeping Service Sales Agent on 07-27-2018 Hemoglobin A1c/Hemoglobin.total mass fraction (Bld) 5.7 % Abnormal 4.8-5.6 Comprehenswestern state hospital Internal Medicine Work Phone: Comment on above: . Prediabetes: 5.7 - 6.4 Diabetes: >6.4 Glycemic control for adults with diabetes: <7.0 PATIENT WAS FASTINGP ERFORMED BY: WINDY Menjivarlin6370 [address] RoadDublin [place] [id number] LIPID PANEL ([id number])Ordered B y: Police Pilot on 07-27-2018 Cholesterol in HDL mass conc 63 mg/dL Normal [facility] Work Phone: Comment on above: PATIENT WAS FASTINGP ERFORMED BY: WINDY Menjivarlin6370 [address] [facility] Centerblin [place] [id number] Cholesterol in LDL mass conc 52 mg/dL Normal 0-99 [facility] Work Phone: Comment on above: PATIENT WAS FASTINGP ERFORMED BY: WINDY Menjivarlin6370 [address] [facility] [id number] Cholesterol in LDL/Cholesterol in HDL mass ratio 0.8 {ratio} Normal 0.0-3.2 [facility] Work Phone: Comment on above: LDL/HDL Ratio Men Wo men 1/2 Avg.Risk 1.0 1.5 Avg.Risk 3.6 3.2 2X Avg.Risk 6.2 5.0 3X Avg.Risk 8.0 6.1 PATIENT WAS FASTINGP ERFORMED BY: WINDY Menjivarlin6370 [address] [facility] [id number] Cholesterol in VLDL mass conc 20 mg/dL Normal 5-40 [facility] Work Phone: Comment on above: PATIENT WAS FASTINGP ERFORMED BY: WINDY Menjivarlin6370 [address] [facility] [id number] Cholesterol mass conc 135 mg/dL Normal 100-199 Com prehensive Internal Medicine Work Phone: Comment on above: PATIENT WAS FASTINGP ERFORMED BY: WINDY LabJeremías MenjivarDzggzb8736 [address] RoadDublin [place] [id number] Triglyceride mass conc 98 mg/dL Normal 0-149 Co mprehensive Internal Medicine Work Phone: Comment on above: PATIENT WAS FASTINGP ERFORMED BY: WINDY Menjivarlin6370 [address] RoadDublin [place] [id number] Metabolic Panel, Comprehensi ve ([id number])Ordered By: Police Pilot on 07-27-2018 Albumin mass conc 4.4 g/dL Normal 3.5-4.8 Compreh [facility] Internal Medicine Work Phone: Comment on above: PATIENT WAS FASTINGP ERFORMED BY: CB [facility] Ynhbmx5776 [address] RoadDublin [place] [id number] Albumin/Globulin mass ratio 1.6 {ratio} Normal 1.2-2.2 [facility] Work Phone: Comment on above: PATIENT WAS FASTINGP ERFORMED BY: CB [facility] Jvjmgs0395 [address] RoadDublin [place] [id number] ALP [Catalytic activity/Vol] 33 U/L Abnormal 39-117 [facility]; [facility] Work Phone: Comment on above: PATIENT WAS FASTINGP ERFORMED BY: CB [facility] Cftvml8955 [address] RoadDublin [place] [id number] ALP enzyme act/vol 33 [iU]/L Abnormal 39-117 [facility] Internal Medicine Work Phone: Comment on above: PATIENT WAS FASTINGP ERFORMED BY: CB [facility] Esmznp5132 [address] RoadDublin [place] [id number] ALT [Catalytic activity/Vol] 20 U/L Normal 0-32 [facility]; [facility] Work Phone: Comment on above: PATIENT WAS FASTINGP ERFORMED BY: CB [facility] Dhcpww2184 [address] RoadDublin [place] [id number] ALT enzyme act/vol 20 [iU]/L Normal 0-32 [facility] Internal Medicine Work Phone: Comment on above: PATIENT WAS FASTINGP ERFORMED BY: CB [facility] Bijpff7572 [address] RoadDublin [place] [id number] AST [Catalytic activity/Vol] 20 U/L Normal 0-40 [facility]; [facility] Work Phone: Comment on above: PATIENT WAS FASTINGP ERFORMED BY: CB [facility] Pikeer9905 [address] RoadDublin [place] [id number] AST enzyme act/vol 20 [iU]/L Normal 0-40 Compre [facility] m[facility]owellive Internal [facility] Work Phone: Comment on above: PATIENT WAS FASTINGP ERFORMED BY: WINDY LabCocorwin FaganVafbzi8841 [address] [facility] Hospitalin [place] [id number] Bilirubin mass conc 0.5 mg/dL Normal 0.0-1.2 Compr ensive Internal Medicine Work Phone: Comment on above: PATIENT WAS FASTINGP ERFORMED BY: WINDY LabCocorwin MenjivarPuddky6957 [address] [facility] [id number] Calcium mass conc 9.5 mg/dL Normal 8.7-10.3 Compreh [facility] arizonaive Internal Medicine Work Phone: Comment on above: PATIENT WAS FASTINGP ERFORMED BY: WINDY LabCocorwin FaganYrxnlv7316 [facility] [id number] Chloride molar conc 104 mmol/L Normal 96-106 Compr [facility] Internal Medicine Work Phone: Comment on above: PATIENT WAS FASTINGP ERFORMED BY: WINDY LabCocorwin MenjivarTshyxw4579 [facility] [id number] CO2 molar conc 22 mmol/L Normal 20-29 Comprehens [facility] Internal Medicine Work Phone: Comment on above: PATIENT WAS FASTINGP ERFORMED BY: WINDY LabJeremías MenjivarBvtdvr5575 [facility] [id number] Creatinine mass conc 1.13 mg/dL Abnormal 0.57-1.00 Comp [facility] hospitalensive Internal Medicine Work Phone: Comment on above: PATIENT WAS FASTINGP ERFORMED BY: WINDY [facility] Ajhcra6141 [facility] [id number] GFR/1.73 sq M predicted among blacks CKD-EPI vol rate/area (S/P/Bld) 57 mL/min/1.73 Abnormal [facility] Work Phone: Comment on above: PATIENT WAS FASTINGP ERFORMED BY: WINDY [facility] Kbkkbz2500 [address] [facility] [id number] GFR/1.73 sq M predicted among non-blacks CKD-EPI vol rate/area (S/P/Bld) 49 mL/min/1.73 Abnormal Comprehensiv e Internal Medicine Work Phone: Comment on above: PATIENT WAS FASTINGP ERFORMED BY: WINDY [facility] Xnjuij7337 [address] RoadDublin [place] [id number] Globulin Calculated mass conc (S) 2.8 g/dL Normal 1.5-4.5 [facility] Work Phone: Globulin mass conc (S) 2.8 g/dL Normal 1.5-4.5 Co mprehensive Internal Medicine Work Phone: Comment on above: PATIENT WAS FASTINGP ERFORMED BY: WINDY [facility] Kiotjg6285 [address] RoadDublin [place] [id number] Glucose mass conc 84 mg/dL Normal 65-99 Compreh ensive Internal Medicine Work Phone: Comment on above: PATIENT WAS FASTINGP ERFORMED BY: WINDY [facility] Qbvjmh2539 [address] RoadDublin [place] [id number] Potassium molar conc 4.8 mmol/L Normal 3.5-5.2 Comp rehensive Internal Medicine Work Phone: Comment on above: PATIENT WAS FASTINGP ERFORMED BY: WINDY [facility] Cdvkkr0208 [address] RoadDublin [place] [id number] Protein mass conc 7.2 g/dL Normal 6.0-8.5 Compreh ensive Internal Medicine Work Phone: Comment on above: PATIENT WAS FASTINGP ERFORMED BY: WINDY [facility] Pnbwcp6972 [address] RoadDublin [place] [id number] Sodium molar conc 142 mmol/L Normal 134-144 Compreh ensive Internal Medicine Work Phone: Comment on above: PATIENT WAS FASTINGP ERFORMED BY: WINDY [facility] Flgyuz7834 [address] RoadDublin [place] [id number] Urea nitrogen mass conc 18 mg/dL Normal 8-27 [facility] Work Phone: Comment on above: PATIENT WAS FASTINGP ERFORMED BY: WINDY [facility] Wczxso2475 [address] RoadDublin [place] [id number] Urea nitrogen/Creatinine mass ratio 16 mg/mg Normal 12-28 [facility] Work Phone: Comment on above: PATIENT WAS FASTINGP ERFORMED BY: LabCo Jubjoi1277 [facility] [id number] TSH (THYROID STIMULATING HOR HAYLIE) ([id number])Ordered By: Police Pilot on 07-27-2018 Thyrotropin Qn 3.890 {uIU/mL} Normal 0.450-4.500 [facility] ehensive Internal Medicine Work Phone: Comment on above: PATIENT WAS FASTINGP ERFORMED BY: [facility] Dqpqhq6281 [facility] [id number] URINE JESÚS CULTURE-IDENTIFICA [place] ([id number])Ordered By: Police Pilot on 11-04-2017 Bacteria identified Cx Nom (U) Final report Abnormal [facility] Work Phone: Comment on above: copy to Dr. coleman; A courtesy copy of this report has been sent [phone].PATIENT NOT FASTINGPERFORMED BY: [facility] Wwigqi0159 [facility] [id number] Information: COPY TO [place] SRC:UC Bacteria identified Cx Nom (U) Klebsiella pneumoniae Abnormal [facility] Internal Medicine Work Phone: Comment on above: Greater than 100,000 colony forming units per mL copy to Dr. coleman; A courtesy copy of this report has been sent [phone].PATIENT NOT FASTINGPERFORMED BY: LabCo Epiiom3111 [facility] [id number] Information: COPY TO [place] SRC:UC Other Antibiotic [facility] [employer] [facility] prehensive Internal Medicine Work Phone: Comment on above: S = Susceptible; I = Intermediate; R = Resistant P = Positive; N = Negative MICS are expressed in micrograms per mL Antibiotic RSLT#1 RSLT#2 RSLT#3 RSLT#4Amoxicillin/Clavulanic Acid SAmpicillin RCefepime SCeftriaxone SCefuroxime SCephalothin SCiprofloxacin SErtapenem SGentamicin SImipenem SLevofloxacin SNitrofurantoin RPiperacillin STetracycline STobramycin STrimethoprim/Sulfa S copy to Dr. coleman; A courtesy copy of this report has been sent [phone].PATIENT NOT FASTINGPERFORMED BY: LabCo Cwfojv8752 [facility] [id number] Information: COPY TO [place] SRC: URINE JESÚS CULTURE-JOHNY COL C OUNT ([id number])Ordered By: Police Pilot on 10-16-2017 Bacteria identified Cx Nom (U) Final report Abnormal [facility] Work Phone: Comment on above: PATIENT NOT FASTINGP ERFORMED BY: LabExcelsior [facility] Zdcvyn9034 [facility] [id number] Information: SRC: Bacteria identified Cx Nom (U) Escherichia coli Abnormal [facility] Work Phone: Comment on above: 10,000-25,000 colony forming units per mL PATIENT NOT FASTINGP ERFORMED BY: LabExcelsior [facility] Pizrox1774 [facility] [id number] Information: SRC: Other Antibiotic [facility] [employer] [facility] prehensive Internal Medicine Work Phone: Comment on above: S = Susceptible; I = Intermediate; R = Resistant P = Positive; N = Negative MICS are expressed in micrograms per mL Antibiotic RSLT#1 RSLT#2 RSLT#3 RSLT#4Amoxicillin/Clavulanic Acid SAmpicillin SCefepime SCeftriaxone SCefuroxime SCephalothin ICiprofloxacin SErtapenem SGentamicin SImipenem SLevofloxacin SNitrofurantoin SPiperacillin STetracycline STobramycin STrimethoprim/Sulfa S PATIENT NOT FASTINGP ERFORMED BY: LabExcelsior [facility] Center Woukdm9795 [facility] [id number] Information: SRC: Urinalysis, Office ([id number])Or dered By: Agnieszka Rae on 10-16-2017 Bilirubin Ql (U) Negative Normal Comprehe nsive Internal Medicine Work Phone: Bilirubin Ql (U) Negative Normal Comprehe nsive Internal Medicine; [facility] Work Phone: Glucose Test strip (U) [Mass/Vol] Negative Normal [facility]; [facility] Work Phone: Glucose Test strip mass conc (U) Negative Normal [facility] Work Phone: Hemoglobin Ql (U) Non Hemolyzed Moderate Normal [facility] Work Phone: Hemoglobin Test strip Ql (U) Non Hemolyzed Moderate Normal Comprehen sive Internal Medicine Work Phone: Ketones Ql (U) Negative Normal Comprehens [facility] Internal Medicine Work Phone: Ketones Ql (U) Negative Normal Comprehens [facility]; [facility] Work Phone: Leukocyte esterase Test strip Ql (U) Moderate Normal [facility] Work Phone: Nitrite Ql (U) Negative Normal Comprehens [facility] Internal Medicine Work Phone: Nitrite Ql (U) Negative Normal Comprehens [facility]; [facility] Work Phone: Nitrite Test strip Ql (U) Negative Normal [facility] Work Phone: pH (U) 6 [pH] Abnormal [facility] Work Phone: pH Test strip (U) 6 [pH] Abnormal Compreh ensive Internal Medicine Work Phone: Protein Ql (U) Negative Normal Comprehens saira Internal Medicine Work Phone: Protein Ql (U) Negative Normal Comprehens [facility]; [facility] Work Phone: Protein Test strip Ql (U) Negative Normal [facility] Work Phone: Specific gravity Relative Density (U) 1.020 1 Normal Comprehensi ve Internal Medicine Work Phone: Urobilinogen mass/time (24H U) Normal Normal [facility] Work Phone: URINE JESÚS CULTURE-IDENTIFICA [place] ([id number])Ordered By: Police Pilot on 07-18-2017 Bacteria identified Cx Nom (U) Final report Abnormal [facility] Work Phone: Comment on above: PATIENT NOT FASTINGP ERFORMED BY: LabCo Byrixo1487 [address] [facility] [id number] Information: SRC: Bacteria identified Cx Nom (U) PROTMP Abnormal [facility] Work Phone: Comment on above: Proteus mirabilis/pe nneriGreater than 100,000 colony forming units per mL S = Susceptible; I = Intermediate; R = Resistant P = Positive; N = Negative MICS are expressed in micrograms per mL Antibiotic RSLT#1 RSLT#2 RSLT#3 RSLT#4Amoxicillin/Clavulanic Acid SAmpicillin SCefepime SCeftriaxone SCefuroxime SCephalothin SCiprofloxacin SErtapenem SGentamicin SLevofloxacin SNitrofurantoin RPiperacillin STetracycline RTobramycin STrimethoprim/Sulfa S PATIENT NOT FASTINGP ERFORMED BY: [employer] [id number] [address] [facility] [id number] Information: SRC: Urinalysis, Office ([id number])Or dered By: Agnieszka Rae on 07-18-2017 Bilirubin Ql (U) Negative Normal Comprehe nsive Internal Medicine Work Phone: Bilirubin Ql (U) Negative Normal Comprehe nsive Internal Medicine; [facility] Work Phone: Glucose Test strip (U) [Mass/Vol] Negative Normal [facility]; [facility] Work Phone: Glucose Test strip mass conc (U) Negative Normal [facility] Work Phone: Ketones Ql (U) Negative Normal Comprehens [facility] Work Phone: Ketones Ql (U) Negative Normal Comprehens [facility]; [facility] Work Phone: Leukocyte esterase Test strip Ql (U) Large Normal [facility] Work Phone: Comment on above: Sample given to lab to send for cs Nitrite Ql (U) Negative Normal Comprehens [facility] Work Phone: Nitrite Ql (U) Negative Normal Comprehens [facility]; [facility] Work Phone: Nitrite Test strip Ql (U) Negative Normal [facility] Work Phone: pH (U) 6 [pH] Abnormal [facility] Work Phone: pH Test strip (U) 6 [pH] Abnormal Compreh ensive Internal Medicine Work Phone: Protein Ql (U) 30 mg/dL Normal Comprehens [facility] Work Phone: Protein Test strip Ql (U) 30 mg/dL Normal [facility] Work Phone: Specific gravity Relative Density (U) 1.025 1 Normal Comprehensi ve Internal Medicine Work Phone: Urobilinogen mass/time (24H U) Normal Normal [facility] Work Phone: Blood Glucose , Office ([phone])Ordered By: Citlali Gonzalez on 12-16-2016 Glucose Glucometer molar conc (BldC) 108 1 Normal [facility] Work Phone: HgA1C , Office ([id number])Ordere d By: Citlali Gonzalez on 12-16-2016 Hemoglobin A1c/Hemoglobin.total mass fraction (Bld) 5.7 % Normal 4.6 - 7.1 Comprehensiv e Internal Medicine Work Phone: Comment on above: 5.7 Urinalysis, Office ([id number])Or dered By: Agnieszka Rae on 12-16-2016 Bilirubin Ql (U) Negative Normal Comprehe nsive Internal Medicine Work Phone: Bilirubin Ql (U) Negative Normal Comprehe nsive [facility] Medicine; [facility] Work Phone: Glucose Test strip (U) [Mass/Vol] Negative Normal [facility]; [facility] Work Phone: Glucose Test strip mass conc (U) Negative Normal [facility] Work Phone: Hemoglobin Ql (U) ++ Abnormal Compreh ensive Internal Medicine Work Phone: Hemoglobin Test strip Ql (U) ++ Abnormal [facility] Work Phone: Ketones Ql (U) Negative Normal Comprehens [facility] Work Phone: Ketones Ql (U) Negative Normal Comprehens [facility]; [facility] Work Phone: Leukocyte esterase Test strip Ql (U) Moderate Normal [facility] Work Phone: Nitrite Ql (U) Negative Normal Comprehens [facility] Work Phone: Nitrite Ql (U) Negative Normal Comprehens [facility]; [facility] Work Phone: Nitrite Test strip Ql (U) Negative Normal [facility] Work Phone: pH (U) 8 [pH] Abnormal [facility] Work Phone: pH Test strip (U) 8 [pH] Abnormal Compreh ensive Internal Medicine Work Phone: Protein Ql (U) 30 mg/dL Normal Comprehens [facility] Work Phone: Protein Test strip Ql (U) 30 mg/dL Normal [facility] Work Phone: Specific gravity Relative Density (U) 1.020 1 Normal Comprehensi ve [facility] Work Phone: Urobilinogen mass/time (24H U) Normal Normal [facility] Work Phone: Urine Culture,ComprehensiveO rdered By: Police Pilot on 12-16-2016 Bacteria identified Cx Nom (U) Final report Abnormal [facility] Work Phone: Comment on above: PATIENT NOT FASTINGP ERFORMED BY: WINDY nlyte SoftwareLourdes Hospital [id number] Information: SRC:UC Bacteria identified Cx Nom (U) Citrobacter freundii Abnormal Comprehensi ve Internal Medicine Work Phone: Comment on above: 25,000-50,000 colony forming units per mL PATIENT NOT FASTINGP ERFORMED BY: WINDY [employer] [id number] [facility]ongheeduLourdes Hospital [id number] Information: SRC:UC Other Antibiotic susc [facility] prehensive Internal Medicine Work Phone: Comment on above: S = Susceptible; I = Intermediate; R = Resistant P = Positive; N = Negative MICS are expressed in micrograms per mL Antibiotic RSLT#1 RSLT#2 RSLT#3 RSLT#4Amoxicillin/Clavulanic Acid RCefazolin RCefepime SCeftriaxone SCefuroxime RCephalothin RCiprofloxacin SErtapenem SGentamicin SImipenem SLevofloxacin SNitrofurantoin SPiperacillin STetracycline STobramycin STrimethoprim/Sulfa S PATIENT NOT FASTINGP ERFORMED BY: WINDY LabJeremías Iuslxp2012 [address] La Rosa RoadDublin [place] [id number] Information: SRC:CALE URINE JESÚS CULTURE-JOHNY COL C OUNT ([id number])Ordered By: Police Pilot on 09-23-2016 Bacteria identified Cx Nom (U) Final report Abnormal [facility] Work Phone: Comment on above: PATIENT NOT FASTINGP ERFORMED BY: WINDY LabJeremías MenjivarBvhrxf1283 De La Rosa RoadDuin [place] [id number] Information: SRC:CALE Bacteria identified Cx Nom (U) Escherichia coli Abnormal [facility] Work Phone: Comment on above: Greater than 100,000 colony forming units per mL PATIENT NOT FASTINGP ERFORMED BY: WINDY LabJeremías Ijhwlj5297 [address] Rosa RoadAtrium Health Pineville Rehabilitation Hospitalin [place] [id number] Information: SRC:CALE Other Antibiotic [facility] prehensive Internal Medicine Work Phone: Comment on above: S = Susceptible; I = Intermediate; R = Resistant P = Positive; N = Negative MICS are expressed in micrograms per mL Antibiotic RSLT#1 RSLT#2 RSLT#3 RSLT#4Amoxicillin/Clavulanic Acid SAmpicillin SCefepime SCeftriaxone SCefuroxime SCephalothin SCiprofloxacin SErtapenem SGentamicin SImipenem SLevofloxacin SNitrofurantoin SPiperacillin STetracycline STobramycin STrimethoprim/Sulfa S PATIENT NOT FASTINGP ERFORMED BY: WINDY LabJeremías Snisiy7726 [address] La Rosa RoadDuin [place] [id number] Information: SRC:CALE Urinalysis, Office ([id number])Or dered By: Lena Sandra on 09-23-2016 Bilirubin Ql (U) Negative Normal Comprehe nsive Internal Medicine Work Phone: Bilirubin Ql (U) Negative Normal Comprehe nsive Internal Medicine; [facility] Work Phone: Glucose Test strip (U) [Mass/Vol] Negative Normal [facility]; [facility] Work Phone: Glucose Test strip mass conc (U) Negative Normal [facility] Work Phone: Hemoglobin Ql (U) Non Hemolyzed Moderate Normal [facility] Work Phone: Hemoglobin Test strip Ql (U) Non Hemolyzed Moderate Normal Comprehen sive Internal Medicine Work Phone: Ketones Ql (U) Negative Normal Comprehens [facility] Work Phone: Ketones Ql (U) Negative Normal Comprehens [facility]; [facility] Work Phone: Leukocyte esterase Test strip Ql (U) Large Normal [facility] Work Phone: Nitrite Ql (U) Negative Normal Comprehens [facility] Work Phone: Nitrite Ql (U) Negative Normal Comprehens [facility]; [facility] Work Phone: Nitrite Test strip Ql (U) Negative Normal [facility] Work Phone: pH (U) 6 [pH] Abnormal [facility] Work Phone: pH Test strip (U) 6 [pH] Abnormal Compreh ensive Internal Medicine Work Phone: Protein Ql (U) Negative Normal Comprehens [facility] Work Phone: Protein Ql (U) Negative Normal Comprehens [facility]; [facility] Work Phone: Protein Test strip Ql (U) Negative Normal [facility] Work Phone: Specific gravity Relative Density (U) 1.020 1 Normal Comprehensi ve Internal Medicine Work Phone: Urobilinogen mass/time (24H U) Normal Normal [facility] Work Phone: CBC W/Diff, AutomatedOrdered By: Police Pilot on 08-07-2016 Absolute Neut 3.1 {X10_3/uL} Normal 2.0-7.7 Compreh ensive Internal Medicine Work Phone: Comment on above: [facility] [address] [place], [address] Basophils/100 WBC (Bld) 1.1 % Abnormal 0-1 [facility] Work Phone: Comment on above: [facility] [address] [place], [address] Basophils/100 WBC Auto (Bld) 1.1 % Abnormal 0-1 [facility] Work Phone: Eosinophils/100 WBC (Bld) 2.6 % Normal 0-5 [facility] Work Phone: Comment on above: [facility] [address] [place], [address] Eosinophils/100 WBC Auto (Bld) 2.6 % Normal 0-5 [facility] Work Phone: Erythrocyte distribution width Auto Ratio (RBC) 13.7 % Normal 11.6-14.6 [facility] Work Phone: Erythrocyte distribution width Ratio (RBC) 13.7 % Normal 11.6-14.6 [facility] Work Phone: Comment on above: [facility] [address] [place], [address] Hematocrit Auto Volume Fraction (Bld) 44.2 % Normal 37-47 [facility] Work Phone: Hematocrit Volume Fraction (Bld) 44.2 % Normal 37-47 [facility] Work Phone: Comment on above: [facility] [address] [place], [address] Hemoglobin mass conc (Bld) 14.3 g/dL Normal 12.0-15.0 [facility] Work Phone: Comment on above: [facility] [address] [place], [address] IM GRAN % 0.200 % Normal 0.0-0.9 [facility] Work Phone: Comment on above: IG% - Immature Granu locytes (promyelocytes, myelocytes andmetamyelocytes) > 1% indicates that a LEFT SHIFT is Present. [facility] [address] [place], [address] Lymphocytes #/vol (Bld) 2.31 {X10_3/ul} Normal 0.83-4.51 [facility] Work Phone: Comment on above: [place] [address] [place], [address] Lymphocytes/100 WBC (Bld) 37.9 % Normal 19-41 [facility] Work Phone: Comment on above: [facility] [address] [place], [address] Lymphocytes/100 WBC Auto (Bld) 37.9 % Normal 19-41 [facility] Work Phone: MCH Auto Entitic mass (RBC) 28.4 pg Normal 27.0-32.0 [facility] Work Phone: MCH Entitic mass (RBC) 28.4 pg Normal 27.0-32.0 [facility] Internal Medicine Work Phone: Comment on above: [facility] [address] [place], [address] MCHC Auto mass conc (RBC) 32.4 {g/gl} Normal 32-36 [facility] Work Phone: MCHC mass conc (RBC) 32.4 {g/gl} Normal 32-36 [facility] prehensive Internal Medicine Work Phone: Comment on above: [facility] [address] [place], [address] MCV Auto Entitic volume (RBC) 87.7 fL Normal 81-99 [facility] Work Phone: MCV Entitic volume (RBC) 87.7 fL Normal 81-99 [facility] Work Phone: Comment on above: [facility] [address] [place], [address] Monocytes/100 WBC (Bld) 7.0 % Normal 0-10 [facility] Work Phone: Comment on above: [facility] [address] [place], [address] Monocytes/100 WBC Auto (Bld) 7.0 % Normal 0-10 [facility] Work Phone: Neutrophils/100 WBC (Bld) 51.2 % Normal 47-70 [facility] Work Phone: Comment on above: [facility] [address] [place], [address] Neutrophils/100 WBC Auto (Bld) 51.2 % Normal 47-70 [facility] Work Phone: Platelet mean volume Auto Entitic volume (Bld) 9.5 fL Normal 6.2-12.0 [facility] Work Phone: Platelet mean volume Entitic volume (Bld) 9.5 fL Normal 6.2-12.0 Comprehensi Internal Medicine Work Phone: Comment on above: [facility] [address] [place], [address] Platelets #/vol (Bld) 348 10*3/uL Normal 150-450 [facility] Internal Medicine Work Phone: Comment on above: [facility] [address] [place], [address] Platelets Auto #/vol (Bld) 348 10*3/uL Normal 150-450 [facility] Work Phone: RBC #/vol (Bld) 5.04 {M/mm3} Normal 4.2-5.4 Compreh ensive Internal Medicine Work Phone: Comment on above: [facility] [address] [place], [address] RBC Auto #/vol (Bld) 5.04 {M/mm3} Normal 4.2-5.4 Co mprehensive Internal Medicine Work Phone: RDW SD 43.7 fL Normal 35.1-43.9 [facility] Work Phone: Comment on above: [facility] [address] [place], [address] WBC #/vol (Bld) 6.1 10*3/uL Normal 4.4-11.0 Comprehe nsive Internal Medicine Work Phone: Comment on above: [facility] [address] [place], [address] WBC Auto #/vol (Bld) 6.1 10*3/uL Normal 4.4-11.0 [facility] prehensive Internal Medicine Work Phone: CBC W/Diff, Automated 0.200 % Normal 0.0-0.9 [facility] prehensive Internal Medicine Work Phone: Comment on above: IG% - Immature Granu locytes (promyelocytes, myelocytes andmetamyelocytes) > 1% indicates that a LEFT SHIFT is Present. CBC W/Diff, Automated 43.7 fL Normal 35.1-43.9 [facility] prehensive Internal Medicine Work Phone: CBC W/Diff, Automated 2.31 {X10_3/ul} Normal 0.83-4.51 [facility] Work Phone: CBC W/Diff, Automated 3.1 {X10_3/uL} Normal 2.0-7.7 [facility] Work Phone: Comprehensive Metabolic Prof ilOrdered By: Police Pilot on 08-07-2016 Comprehensive metabolic 2000 panel 7.6 g/dL Normal 6.4-8.2 Comprehensi ve Internal Medicine Work Phone: Comment on above: Has Patient had X-ra ys with Contrast this admission? [facility] [address] [place], [address] Comprehensive metabolic 2000 panel 14.1 {RATIO} Normal 10-20 Comprehensi ve Internal Medicine Work Phone: Comment on above: Has Patient had X-ra ys with Contrast this admission? [facility] [address] [place], [place], [id number] Comprehensive metabolic 2000 panel 0.60 mg/dL Normal 0.20-1.00 Comprehensi ve Internal Medicine Work Phone: Comment on above: Has Patient had X-ra ys with Contrast this admission? [facility] [address] [place], [address] Comprehensive metabolic 2000 panel 138 mmol/L Normal 136-145 Comprehensi ve Internal Medicine Work Phone: Comment on above: Has Patient had X-ra ys with Contrast this admission? [facility] [address] [place], [address] Comprehensive metabolic 2000 panel 50 mL/min Abnormal Comprehensi ve Internal Medicine Work Phone: Comment on above: GFR Calc Has Patient had X-ra ys with Contrast this admission? [facility] [address] [place], [address] Comprehensive metabolic 2000 panel 8.7 mg/dL Normal 8.5-10.1 Comprehensi ve Internal Medicine Work Phone: Comment on above: Has Patient had X-ra ys with Contrast this admission? [facility] [address] [place], [place], [address] Comprehensive metabolic 2000 panel 4.0 mmol/L Normal 3.5-5.1 Comprehensi ve Internal Medicine Work Phone: Comment on above: Has Patient had X-ra ys with Contrast this admission? [facility] [address] [place], [place], [address] Comprehensive metabolic 2000 panel 32 U/L Normal 12-78 Comprehensi ve Internal Medicine Work Phone: Comment on above: Has Patient had X-ra ys with Contrast this admission? [facility] [address] [place], [place], [id number] Comprehensive metabolic 2000 panel 27.0 mmol/L Normal 21.0-32.0 Comprehensi ve Internal Medicine Work Phone: Comment on above: Has Patient had X-ra ys with Contrast this admission? [facility] [address] [place], [place], [phone] Comprehensive metabolic 2000 panel 7 1 Normal 5-15 Comprehensi ve Internal Medicine Work Phone: Comment on above: Has Patient had X-ra ys with Contrast this admission? [facility] [address] [place], [place], [address] Comprehensive metabolic 2000 panel 41 mL/min Abnormal Comprehensi ve Internal Medicine Work Phone: Comment on above: Non- GFR Calc Has Patient had X-ra ys with Contrast this admission? [facility] [address] [place], [place], [id number] Comprehensive metabolic 2000 panel 3.7 g/dL Abnormal 2.3-3.5 Comprehensi ve Internal Medicine Work Phone: Comment on above: Has Patient had X-ra ys with Contrast this admission? [facility] [address] [place], [place], [address] Comprehensive metabolic 2000 panel 1.1 {RATIO} Normal 0.9-2.4 Comprehensi ve Internal Medicine Work Phone: Comment on above: Has Patient had X-ra ys with Contrast this admission? [facility] [address] [place], [place], [address] Comprehensive metabolic 2000 panel 22 U/L Normal 15-37 Comprehensi ve Internal Medicine Work Phone: Comment on above: Has Patient had X-ra ys with Contrast this admission? [facility] [address] [place], [place], [address] Comprehensive metabolic 2000 panel 1.35 mg/dL Abnormal 0.55-1.20 Comprehensi ve Internal Medicine Work Phone: Comment on above: The validity of the calculated GFR AND GFRAA in patients over70 years has not been determined. Clinical correlation isessential. Has Patient had X-ra ys with Contrast this admission? [facility] [address] [place], [place], [address] Comprehensive metabolic 2000 panel 19 mg/dL Abnormal 7-18 Comprehensi ve Internal Medicine Work Phone: Comment on above: Has Patient had X-ra ys with Contrast this admission? [facility] [address] [place], [place], [address] Comprehensive metabolic 2000 panel 36 U/L Abnormal 50-136 Comprehensi ve Internal Medicine Work Phone: Comment on above: Has Patient had X-ra ys with Contrast this admission? [facility] [address] [place], [place], [address] Comprehensive metabolic 2000 panel 3.9 g/dL Normal 3.4-5.0 Comprehensi ve Internal Medicine Work Phone: Comment on above: Has Patient had X-ra ys with Contrast this admission? [facility] [address] [place], [address] Comprehensive metabolic 2000 panel 91 mg/dL Normal 70-110 Comprehensi ve Internal Medicine Work Phone: Comment on above: Has Patient had X-ra ys with Contrast this admission? [facility] [address] [place], [place], [address] Comprehensive metabolic 2000 panel 104 mmol/L Normal 98-107 Comprehensi ve Internal Medicine Work Phone: Comment on above: Has Patient had X-ra ys with Contrast this admission? [facility] [address] [place], [place], [id number] Free E3Dgfquri By: Marcelino willis on 08-07-2016 T3 free mass conc 2.4 pg/mL Normal 2.18-3.98 Compreh ensive Internal Medicine Work Phone: Comment on above: Has Patient had X-ra ys with Contrast this admission? [facility] [address] [place], [place], [address] Lipid ProfileOrdered By: Johan tem Bookkeeping Service Sales Agent on 08-07-2016 Cholesterol in HDL mass conc 70 mg/dL Normal [facility] Work Phone: Comment on above: The drugs N-Acetylcy steine and Metamizole may falsely deressthis assay. Reference Range HDL <40 mg/dL Low HDL Cholesterol HDL >or= 60 mg/dL High HDL Cholesterol Has Patient had X-ra ys with Contrast this admission? [facility] [address] [place], [place], [phone] Cholesterol in LDL mass conc 55 mg/dL Normal 0-130 [facility] Work Phone: Comment on above: Has Patient had X-ra ys with Contrast this admission? [facility] [address] [place], [place], [phone] Cholesterol in VLDL mass conc 21 mg/dL Normal 5-40 [facility] Work Phone: Comment on above: Has Patient had X-ra ys with Contrast this admission? [facility] [address] [place], [place], [phone] Cholesterol mass conc 146 mg/dL Normal Com prehensive Internal Medicine Work Phone: Comment on above: <200 mg/dL Desirable 200-240 mg/dL Borderline >240 mg/dL High Risk Has Patient had X-ra ys with Contrast this admission? [facility] [address] [place], [place], [id number] Triglyceride mass conc 105 mg/dL Normal Co mprehensive Internal Medicine Work Phone: Comment on above: The drugs N-Acetylcy steine and Metamizole may falsely deressthis assay.Serum Triglycerides Reference Interval Normal <150 mg/dL Borderline high 150 - 199 mg/dL High 200 - 499 mg/dL Very High > or = 500 mg/dL Has Patient had X-ra ys with Contrast this admission? [facility] [address] [place], [place], [address] Lipid Profile 21 mg/dL Normal 5-40 Comprehensi ve Internal Medicine Work Phone: MicroalbOrdered By: Marcelino fox on 08-07-2016 Creatinine mass conc 7.4 {mg/g_CRE} Normal [facility] Work Phone: Comment on above: [facility] [address] [place], [place], [address] Creatinine mass conc 122.00 mg/dL Normal Co mprehensive Internal Medicine Work Phone: Comment on above: [facility] [address] [place], [place], [address] Microalb 122.00 mg/dL Normal Comprehensiv e Internal Medicine Work Phone: Microalb 9.0 mg/L Normal [facility] Work Phone: Comment on above: [facility] [address] [place], [place], [phone] T4 Free DirectOrdered By: Sy stem Bookkeeping Service Sales Agent on 08-07-2016 T4 free mass conc 0.90 ng/dL Normal 0.76-1.46 Compreh ensive Internal Medicine Work Phone: Comment on above: Has Patient had X-ra ys with Contrast this admission? [facility] [address] [place], [place], [phone] Thyroid Stim Hormone (TSH)Or dered By: Police Pilot on 08-07-2016 Thyrotropin Qn 5.63 {uIU/mL} Abnormal 0.358-3.74 Compreh ensive Internal Medicine Work Phone: Comment on above: Has Patient had X-ra ys with Contrast this admission? [facility] [address] [place], [address] Vitamin D,25 HydroxyOrdered By: Police Pilot on 08-07-2016 Vitamin D,25 Hydroxy 31.8 ng/mL Normal Comp rehensive Internal Medicine Work Phone: Comment on above: Vitamin D 25(OH) Sta tus Range Deficiency <20 ng/mL (50nmol/L) Insuffciency 20 - 30 ng/mL (50 - 75 nmol/L) Sufficiency 30 - 100 ng/mL (75 - 250 nmol/L) Toxicity >100 ng/mL (>250 nmol/L) [facility] [address] [place], [place], [phone] HgA1C , Office ([id number])Ordere d By: Agnieszka Rae on 08-06-2016 Hemoglobin A1c/Hemoglobin.total mass fraction (Bld) 5.9 % Normal 4.6 - 7.1 Comprehensiv e Internal Medicine Work Phone: Urinalysis, Office ([id number])Or dered By: Mikhail Gutierrez on 08-06-2016 Bilirubin Ql (U) Negative Normal Comprehe nsive Internal Medicine Work Phone: Glucose Test strip mass conc (U) Negative Normal [facility] Work Phone: Hemoglobin Ql (U) Negative Normal Compreh ensive Internal Medicine Work Phone: Hemoglobin Test strip Ql (U) Negative Normal [facility] Work Phone: Ketones Ql (U) Negative Normal Comprehens saira Internal Medicine Work Phone: Leukocyte esterase Test strip Ql (U) Negative Normal [facility] Work Phone: Nitrite Ql (U) Negative Normal Comprehens [facility] Work Phone: Nitrite Test strip Ql (U) Negative Normal [facility] Work Phone: pH (U) 7 [pH] Normal [facility] Work Phone: pH Test strip (U) 7 [pH] Normal Compreh ensive [facility] Work Phone: Protein Ql (U) Negative Normal Comprehens [facility] Work Phone: Protein Test strip Ql (U) Negative Normal [facility] Work Phone: Specific gravity Relative Density (U) 1.015 1 Normal Comprehensi ve Internal Medicine Work Phone: Urobilinogen mass/time (24H U) Normal Normal [facility] Work Phone: Urinalysis, Office ([id number])on 08-06-2016 Bilirubin Ql (U) Negative Normal Comprehe nsive Internal Medicine; [facility] Work Phone: Glucose Test strip (U) [Mass/Vol] Negative Normal [facility]; [facility] Work Phone: Hemoglobin Ql (U) Negative Normal Compreh ensive [facility]; [facility] Work Phone: Ketones Ql (U) Negative Normal Comprehens [facility]; [facility] Work Phone: Leukocyte esterase Test strip Ql (U) Negative Normal [facility]; [facility] Work Phone: Nitrite Ql (U) Negative Normal Comprehens [facility]; [facility] Work Phone: Protein Ql (U) Negative Normal Comprehens [facility]; [facility] Work Phone: URINE JESÚS CULTURE-JOHNY COL C OUNT ([id number])Ordered By: Police Pilot on 05-02-2016 Bacteria identified Cx Nom (U) MUG Normal [facility] Work Phone: Comment on above: Mixed urogenital jese ra50,000-100,000 colony forming units per mL PATIENT NOT FASTINGP ERFORMED BY: WINDY [facility] [id number] [facility] [id number] Information: SRC:[facility] [id number] Bacteria identified Cx Nom (U) Final report Normal [facility] Work Phone: Comment on above: PATIENT NOT FASTINGP ERFORMED BY: [facility] [id number] [facility] [id number] Information: SRC:[facility] [id number] Urinalysis, Office ([id number])Or dered By: Citlali Gonzalez on 05-02-2016 Bilirubin Ql (U) Negative Normal Comprehe nsive Internal Medicine Work Phone: Bilirubin Ql (U) Negative Normal Comprehe nsive [facility]; [facility] Work Phone: Glucose Test strip (U) [Mass/Vol] Negative Normal [facility]; [facility] Work Phone: Glucose Test strip mass conc (U) Negative Normal [facility] Work Phone: Hemoglobin Ql (U) Negative Normal Compreh ensive [facility] Work Phone: Hemoglobin Ql (U) Negative Normal Compreh ensive [facility]; [facility] Work Phone: Hemoglobin Test strip Ql (U) Negative Normal [facility] Work Phone: Ketones Ql (U) Negative Normal Comprehens [facility] Work Phone: Ketones Ql (U) Negative Normal Comprehens [facility]; [facility] Work Phone: Leukocyte esterase Test strip Ql (U) Moderate Normal [facility] Work Phone: Nitrite Ql (U) Negative Normal Comprehens [facility] Work Phone: Nitrite Ql (U) Negative Normal Comprehens [facility]; [facility] Work Phone: Nitrite Test strip Ql (U) Negative Normal [facility] Work Phone: pH (U) 7.0 [pH] Normal [facility] Work Phone: pH Test strip (U) 7.0 [pH] Normal Compreh ensive [facility] Work Phone: Protein Ql (U) Negative Normal Comprehens [facility] Work Phone: Protein Ql (U) Negative Normal Comprehens [facility]; [facility] Work Phone: Protein Test strip Ql (U) Negative Normal [facility] Work Phone: Specific gravity Relative Density (U) 1.020 1 Normal Comprehensi [facility] Work Phone: Urobilinogen mass/time (24H U) Normal Normal [facility] Work Phone: Basic Metabolic Profile (BMP )Ordered By: Police Pilot on 04-23-2016 Basic metabolic 2000 panel 1.53 mg/dL Abnormal 0.55-1.20 [facility] Work Phone: Comment on above: The validity of the calculated GFR AND GFRAA in patients over70 years has not been determined. Clinical correlation isessential. Serial Specimen #1, #2 or #3? 1'TROP' Serial specimen #1, #2, #3, or #4: [address] [place] [address] [place], [address] Basic metabolic 2000 panel 43 mL/min Abnormal [facility] Work Phone: Comment on above: GFR Calc Serial Specimen #1, #2 or #3? 1'TROP' Serial specimen #1, #2, #3, or #4: [address] [place] [address] [place], [address] Basic metabolic 2000 panel 137 mmol/L Normal 136-145 [facility] Work Phone: Comment on above: Serial Specimen #1, #2 or #3? 1'TROP' Serial specimen #1, #2, #3, or #4: [address] [place] [address] [place], [address] Basic metabolic 2000 panel 10.5 {RATIO} Normal 10-20 [facility] Work Phone: Comment on above: Serial Specimen #1, #2 or #3? 1'TROP' Serial specimen #1, #2, #3, or #4: [address] [place] [address] [place], [place], [id number] Basic metabolic 2000 panel 8.6 mg/dL Normal 8.5-10.1 [facility] Work Phone: Comment on above: Serial Specimen #1, #2 or #3? 1'TROP' Serial specimen #1, #2, #3, or #4: [address] [place] [address] [place], [place], [id number] Basic metabolic 2000 panel 3.9 mmol/L Normal 3.5-5.1 [facility] Work Phone: Comment on above: Serial Specimen #1, #2 or #3? 1'TROP' Serial specimen #1, #2, #3, or #4: [address] [place] [address] [place], [place], [address] Basic metabolic 2000 panel 16 mg/dL Normal 7-18 [facility] Work Phone: Comment on above: Serial Specimen #1, #2 or #3? 1'TROP' Serial specimen #1, #2, #3, or #4: [address] [place] [address] [place], [address] Basic metabolic 2000 panel 103 mmol/L Normal 98-107 [facility] Work Phone: Comment on above: Serial Specimen #1, #2 or #3? 1'TROP' Serial specimen #1, #2, #3, or #4: [address] [place] [address] [place], [place], [id number] Basic metabolic 2000 panel 9 1 Normal 5-15 [facility] Work Phone: Comment on above: Serial Specimen #1, #2 or #3? 1'TROP' Serial specimen #1, #2, #3, or #4: [address] [place] [address] [place], [address] Basic metabolic 2000 panel 115 mg/dL Abnormal 70-110 [facility] Work Phone: Comment on above: Fasting Glucose resu lt from 110 to <126 mg/dLsuggests IMPAIRED HOMEOSTASIS per A.D.A. criteria. Serial Specimen #1, #2 or #3? 1'TROP' Serial specimen #1, #2, #3, or #4: [address] [place] [address] [place], [place], [id number] Basic metabolic 2000 panel 36 mL/min Abnormal [facility] Work Phone: Comment on above: Non- GFR Calc Serial Specimen #1, #2 or #3? 1'TROP' Serial specimen #1, #2, #3, or #4: [address] [place] [address] [place], [place], [address] Basic metabolic 2000 panel 25.0 mmol/L Normal 21.0-32.0 [facility] Work Phone: Comment on above: Serial Specimen #1, #2 or #3? 1'TROP' Serial specimen #1, #2, #3, or #4: [address] [place] [address] [place], [address] Basic metabolic 2000 panel 27.45 ml/min Normal [facility] Work Phone: Comment on above: Serial Specimen #1, #2 or #3? 1'TROP' Serial specimen #1, #2, #3, or #4: [address] [place] [address] [place], [place], [id number] CBC W/Diff, AutomatedOrdered By: Police Pilot on 04-23-2016 Absolute Neut 3.8 {X10_3/uL} Normal 2.0-7.7 Compreh ensive [facility] Medicine Work Phone: Comment on above: [facility] [address] [place], [place], [id number] Basophils/100 WBC (Bld) 0.2 % Normal 0-1 [facility] Work Phone: Comment on above: [facility] [address] [place], [address] Basophils/100 WBC Auto (Bld) 0.2 % Normal 0-1 [facility] Work Phone: Eosinophils/100 WBC (Bld) 1.9 % Normal 0-5 [facility] Work Phone: Comment on above: [facility] [address] [place], [address] Eosinophils/100 WBC Auto (Bld) 1.9 % Normal 0-5 [facility] Work Phone: Erythrocyte distribution width Auto Ratio (RBC) 13.7 % Normal 11.6-14.6 [facility] Work Phone: Erythrocyte distribution width Ratio (RBC) 13.7 % Normal 11.6-14.6 [facility] Work Phone: Comment on above: [facility] [address] [place], [address] Hematocrit Auto Volume Fraction (Bld) 39.5 % Normal 37-47 [facility] Work Phone: Hematocrit Volume Fraction (Bld) 39.5 % Normal 37-47 [facility] Work Phone: Comment on above: [facility] [address] [place], [address] Hemoglobin mass conc (Bld) 12.9 g/dL Normal 12.0-15.0 [facility] Work Phone: Comment on above: [facility] [address] [place], [address] IM GRAN % 0.200 % Normal 0.0-0.9 [facility] Work Phone: Comment on above: IG% - Immature Granu locytes (promyelocytes, myelocytes andmetamyelocytes) > 1% indicates that a LEFT SHIFT is Present. [facility] [address] [place], [address] Lymphocytes #/vol (Bld) 0.82 {X10_3/ul} Abnormal 0.83-4.51 [facility] Work Phone: Comment on above: [facility] [address] [place], [address] Lymphocytes/100 WBC (Bld) 15.9 % Abnormal 19-41 [facility] Work Phone: Comment on above: [facility] [address] [place], [address] Lymphocytes/100 WBC Auto (Bld) 15.9 % Abnormal 19-41 [facility] Work Phone: MCH Auto Entitic mass (RBC) 28.4 pg Normal 27.0-32.0 [facility] Work Phone: MCH Entitic mass (RBC) 28.4 pg Normal 27.0-32.0 [facility] Medicine Work Phone: Comment on above: [facility] [address] [place], [address] MCHC Auto mass conc (RBC) 32.7 {g/gl} Normal 32-36 [facility] Work Phone: MCHC mass conc (RBC) 32.7 {g/gl} Normal 32-36 [facility] Internal Medicine Work Phone: Comment on above: [facility] [address] [place], [address] MCV Auto Entitic volume (RBC) 86.8 fL Normal 81-99 [facility] Work Phone: MCV Entitic volume (RBC) 86.8 fL Normal 81-99 [facility] Work Phone: Comment on above: [facility] [address] [place], [address] Monocytes/100 WBC (Bld) 7.7 % Normal 0-10 [facility] Work Phone: Comment on above: [facility] [address] [place], [address] Monocytes/100 WBC Auto (Bld) 7.7 % Normal 0-10 [facility] Work Phone: Neutrophils/100 WBC (Bld) 74.1 % Abnormal 47-70 [facility] Work Phone: Comment on above: [facility] [address] [place], [address] Neutrophils/100 WBC Auto (Bld) 74.1 % Abnormal 47-70 [facility] Work Phone: Platelet mean volume Auto Entitic volume (Bld) 9.4 fL Normal 6.2-12.0 [facility] Work Phone: Platelet mean volume Entitic volume (Bld) 9.4 fL Normal 6.2-12.0 Comprehensi ve [facility] Medicine Work Phone: Comment on above: [facility] [address] [place], [address] Platelets #/vol (Bld) 242 10*3/uL Normal 150-450 Co mprehensive [facility] Work Phone: Comment on above: [facility] [address] [place], [address] Platelets Auto #/vol (Bld) 242 10*3/uL Normal 150-450 [facility] Work Phone: RBC #/vol (Bld) 4.55 {M/mm3} Normal 4.2-5.4 Compreh ensive [facility] Work Phone: Comment on above: [facility] [address] [place], [address] RBC Auto #/vol (Bld) 4.55 {M/mm3} Normal 4.2-5.4 Co m[facility] Work Phone: RDW SD 43.4 fL Normal 35.1-43.9 [facility] Work Phone: Comment on above: [facility] [address] [place], [address] WBC #/vol (Bld) 5.2 10*3/uL Normal 4.4-11.0 [facility] Work Phone: Comment on above: [facility] [address] [place], [address] WBC Auto #/vol (Bld) 5.2 10*3/uL Normal 4.4-11.0 [facility] prehensive Internal Medicine Work Phone: CBC W/Diff, Automated 0.200 % Normal 0.0-0.9 [facility] prehensive Internal Medicine Work Phone: Comment on above: IG% - Immature Granu locytes (promyelocytes, myelocytes andmetamyelocytes) > 1% indicates that a LEFT SHIFT is Present. CBC W/Diff, Automated 3.8 {X10_3/uL} Normal 2.0-7.7 [facility] Work Phone: CBC W/Diff, Automated 0.82 {X10_3/ul} Abnormal 0.83-4.51 [facility] Work Phone: CBC W/Diff, Automated 43.4 fL Normal 35.1-43.9 [facility] prehensive Internal Medicine Work Phone: CK-MB Quantitative and Index Ordered By: Police Pilot on 04-23-2016 CK.MB mass conc 1.8 ng/mL Normal 0.0-5.0 [facility] Work Phone: Comment on above: CK-MB and RI Interpr etation MB Relative Index Non-AMI 5 5 > 4 Serial Specimen #1, #2 or #3? 1'TROP' Serial specimen #1, #2, #3, or #4: [facility] [address] [place], [address] CK-MB Quantitative and Index 1.8 ng/mL Normal 0.0-5.0 [facility] Work Phone: Comment on above: CK-MB and RI Interpr etation MB Relative Index Non-AMI 5 5 > 4 CK-MB Quantitative and Index 135 U/L Normal 26-192 [facility] Work Phone: Comment on above: Serial Specimen #1, #2 or #3? 1'TROP' Serial specimen #1, #2, #3, or #4: [address] [place] [address] [place], [place], [address] CK-MB Quantitative and Index 1.3 % Normal 0.0-1.4 [facility] Work Phone: Comment on above: RELATIVE INDEX >1.5% IS PRESUMPTIVELY POSITIVE Serial Specimen #1, #2 or #3? 1'TROP' Serial specimen #1, #2, #3, or #4: [address] [place] [address] [place], [address] LipaseOrdered By: System Man ager on 04-23-2016 Lipase enzyme act/vol 192 U/L Normal 73-393 Com prehensive [facility] Medicine Work Phone: Comment on above: [facility] [address] [place], [address] Liver ProfileOrdered By: Docphin tem Bookkeeping Service Sales Agent on 04-23-2016 Albumin mass conc 3.4 g/dL Normal 3.4-5.0 Compreh ensive [facility] Work Phone: Comment on above: [facility] [address] [place], [address] ALP enzyme act/vol 41 U/L Abnormal 50-136 [facility] Work Phone: Comment on above: [facility] [address] [place], [address] ALT enzyme act/vol 37 U/L Normal 12-78 [facility]pre [facility] Work Phone: Comment on above: [facility] [address] [place], [place], [address] AST enzyme act/vol 43 U/L Abnormal 15-37 Compre [facility] Internal Medicine Work Phone: Comment on above: [facility] [address] [place], [place], [address] Bilirubin mass conc 0.40 mg/dL Normal 0.20-1.00 Compr ensive Internal Medicine Work Phone: Comment on above: [facility] [address] [place], [place], [address] Bilirubin.direct mass conc 0.21 mg/dL Normal 0.00-0.30 [facility] Work Phone: Comment on above: [facility] [address] [place], [place], [address] Globulin Calculated mass conc (S) 3.8 g/dL Abnormal 2.3-3.5 [facility] Work Phone: Globulin mass conc (S) 3.8 g/dL Abnormal 2.3-3.5 Co [facility] Internal Medicine Work Phone: Comment on above: [facility] [address] [place], [place], [address] Protein mass conc 7.2 g/dL Normal 6.4-8.2 Compreh [facility] Work Phone: Comment on above: [facility] [address] [place], [place], [address] Troponin-IOrdered By: Police Pilot on 04-23-2016 Troponin I.cardiac mass conc ng/mL Normal [facility] Work Phone: Comment on above: TROPONIN-I EXPECTED VALUES <0.05 NEGATIVE 0.06 - 0.59 AT RISK OF PA > OR = 0.60 SUGGEST PA Serial Specimen #1, #2 or #3? 1'TROP' Serial specimen #1, #2, #3, or #4: [facility] [address] [place], [address] URINE JESÚS CULTURE-JOHNY COL C OUNT ([id number])Ordered By: Police Pilot on 04-19-2016 Bacteria identified Cx Nom (U) Final report Normal [facility] Work Phone: Comment on above: PATIENT NOT FASTINGP ERFORMED BY: WINDY [facility] [id number] [facility] [id number] Information: SRC:[facility] [id number] Bacteria identified Cx Nom (U) MUG Normal [facility] Work Phone: Comment on above: Mixed urogenital jese ra25,000-50,000 colony forming units per mL PATIENT NOT FASTINGP ERFORMED BY: WINDY [facility] [id number] [facility] [id number] Information: SRC:[facility] [id number] Urinalysis, Office ([id number])Or dered By: Fiorella Whelan on 04-19-2016 Bilirubin Ql (U) Negative Normal Comprehe nsive Internal Medicine Work Phone: Bilirubin Ql (U) Negative Normal Comprehe nsive Internal Medicine; [facility] Work Phone: Glucose Test strip (U) [Mass/Vol] Negative Normal [facility]; [facility] Work Phone: Glucose Test strip mass conc (U) Negative Normal [facility] Work Phone: Hemoglobin Ql (U) Hemolyzed Large Normal Co mprehensive [facility] Work Phone: Hemoglobin Test strip Ql (U) Hemolyzed Large Normal [facility] Work Phone: Ketones Ql (U) Small Normal Comprehens [facility] Work Phone: Leukocyte esterase Test strip Ql (U) Large Normal [facility] Work Phone: Nitrite Ql (U) Negative Normal Comprehens [facility] Work Phone: Nitrite Ql (U) Negative Normal Comprehens [facility]; [facility] Work Phone: Nitrite Test strip Ql (U) Negative Normal [facility] Work Phone: pH (U) 5 [pH] Abnormal [facility] Work Phone: pH Test strip (U) 5 [pH] Abnormal Compreh ensive Internal Medicine Work Phone: Protein Ql (U) 100 mg/dL Normal Comprehens [facility]ira [facility] Work Phone: Protein Test strip Ql (U) 100 mg/dL Normal [facility] Work Phone: Specific gravity Relative Density (U) 1.030 1 Abnormal Comprehensi ve Internal Medicine Work Phone: Urobilinogen mass/time (24H U) Normal Normal [facility] Work Phone: Rapid Strep Test, Office ([phone])Ordered By: Lena Sandra on 03-14-2016 S. pyogenes Ag EIA Ql (Throat) Negative Normal [facility]; [facility] Work Phone: S. pyogenes Ag IA Ql (Unsp spec) Negative Normal [facility] Work Phone: Throat Culture ([id number])Ordere d By: Police Pilot on 03-14-2016 Bacteria identified Respiratory culture Nom (Unsp spec) Final report Normal [facility] Work Phone: Comment on above: PATIENT NOT FASTINGP ERFORMED BY: [email or web address] [id number] [facility] [id number] Information: SRC:THRRafael [id number] Bacteria identified Respiratory culture Nom (Unsp spec) RRF Normal [facility] Work Phone: Comment on above: Routine respiratory brendon PATIENT NOT FASTINGP ERFORMED BY: [email or web address] [id number] [facility] [id number] Information: SRC:THRT [id number] HgA1C , Office (07400)Ordere d By: Fiorella Whelan on 03-11-2016 Hemoglobin A1c/Hemoglobin.total mass fraction (Bld) 5.8 % Normal 4.6 - 7.1 Comprehensiv e Internal Medicine Work Phone: AFP, Tumor MarkerOrdered By: Police Pilot on 03-04-2016 AFP.tumor marker mass conc 3.0 ng/mL Normal 0.0-8.3 [facility] Work Phone: Comment on above: Cristofer ECLIA methodol ogyPerformed at: CB - [facility] [address] [id number] Director: Dylan Alamo PhD, Phone: [phone]; ADDENDA: non-emergent and has apt friday Is Patient ? [facility] (refer to report for specific site)refer to report for address and phone number CBC W/Diff, AutomatedOrdered By: Police Pilot on 03-04-2016 Absolute Neut 3.0 {X10_3/uL} Normal 2.0-7.7 Compreh ensive Internal Medicine Work Phone: Comment on above: [facility] [address] [place], [phone] Basophils/100 WBC (Bld) 0.5 % Normal 0-1 [facility] Work Phone: Comment on above: [facility] [address] [place], [address] Basophils/100 WBC Auto (Bld) 0.5 % Normal 0-1 [facility] Work Phone: Eosinophils/100 WBC (Bld) 2.9 % Normal 0-5 [facility] Work Phone: Comment on above: [facility] [address] [place], [address] Eosinophils/100 WBC Auto (Bld) 2.9 % Normal 0-5 [facility] Work Phone: Erythrocyte distribution width Auto Ratio (RBC) 14.0 % Normal 11.6-14.6 [facility] Work Phone: Erythrocyte distribution width Ratio (RBC) 14.0 % Normal 11.6-14.6 [facility] Work Phone: Comment on above: [facility] [address] [place], [phone] Hematocrit Auto Volume Fraction (Bld) 42.2 % Normal 37-47 [facility] Work Phone: Hematocrit Volume Fraction (Bld) 42.2 % Normal 37-47 [facility] Work Phone: Comment on above: [facility] [address] [place], [address] Hemoglobin mass conc (Bld) 13.6 g/dL Normal 12.0-15.0 [facility] Work Phone: Comment on above: [place] [id number] [place], [address] IM GRAN % 0.000 % Normal 0.0-0.9 [facility] Work Phone: Comment on above: IG% - Immature Granu locytes (promyelocytes, myelocytes andmetamyelocytes) > 1% indicates that a LEFT SHIFT is Present. [facility] [address] [place], [address] Lymphocytes #/vol (Bld) 1.97 {X10_3/ul} Normal 0.83-4.51 [facility] Work Phone: Comment on above: [place] [id number] [place], [address] Lymphocytes/100 WBC (Bld) 35.2 % Normal 19-41 [facility] Work Phone: Comment on above: [place] [address] [place], [address] Lymphocytes/100 WBC Auto (Bld) 35.2 % Normal 19-41 [facility] Work Phone: MCH Auto Entitic mass (RBC) 28.6 pg Normal 27.0-32.0 [facility] Work Phone: MCH Entitic mass (RBC) 28.6 pg Normal 27.0-32.0 [facility] Internal Medicine Work Phone: Comment on above: [facility] [address] [place], [address] MCHC Auto mass conc (RBC) 32.2 {g/gl} Normal 32-36 [facility] Work Phone: MCHC mass conc (RBC) 32.2 {g/gl} Normal 32-36 [facility] prehensive Internal Medicine Work Phone: Comment on above: [facility] [address] [place], [address] MCV Auto Entitic volume (RBC) 88.7 fL Normal 81-99 [facility] Work Phone: MCV Entitic volume (RBC) 88.7 fL Normal 81-99 [facility] Medicine Work Phone: Comment on above: [facility] [address] [place], [address] Monocytes/100 WBC (Bld) 7.9 % Normal 0-10 [facility] Medicine Work Phone: Comment on above: [facility] [address] [place], [address] Monocytes/100 WBC Auto (Bld) 7.9 % Normal 0-10 [facility] Work Phone: Neutrophils/100 WBC (Bld) 53.5 % Normal 47-70 [facility] Work Phone: Comment on above: [facility] [address] [place], [address] Neutrophils/100 WBC Auto (Bld) 53.5 % Normal 47-70 [facility] Work Phone: Platelet mean volume Auto Entitic volume (Bld) 9.4 fL Normal 6.2-12.0 [facility] Work Phone: Platelet mean volume Entitic volume (Bld) 9.4 fL Normal 6.2-12.0 Comprehensi ve Internal Medicine Work Phone: Comment on above: [facility] [address] [place], [address] Platelets #/vol (Bld) 366 10*3/uL Normal 150-450 Co mprehensive Internal Medicine Work Phone: Comment on above: [facility] [address] [place], [address] Platelets Auto #/vol (Bld) 366 10*3/uL Normal 150-450 [facility] Work Phone: RBC #/vol (Bld) 4.76 {M/mm3} Normal 4.2-5.4 Compreh ensive Internal Medicine Work Phone: Comment on above: [facility] [address] [place], [address] RBC Auto #/vol (Bld) 4.76 {M/mm3} Normal 4.2-5.4 Co mprehensive Internal Medicine Work Phone: RDW SD 45.3 fL Abnormal 35.1-43.9 [facility] Work Phone: Comment on above: [facility] [address] [place], [address] WBC #/vol (Bld) 5.6 10*3/uL Normal 4.4-11.0 Comprehe nsive Internal Medicine Work Phone: Comment on above: [facility] [address] [place], [address] WBC Auto #/vol (Bld) 5.6 10*3/uL Normal 4.4-11.0 Com prehensive Internal Medicine Work Phone: CBC W/Diff, Automated 3.0 {X10_3/uL} Normal 2.0-7.7 [facility] Work Phone: CBC W/Diff, Automated 1.97 {X10_3/ul} Normal 0.83-4.51 [facility] Work Phone: CBC W/Diff, Automated 45.3 fL Abnormal 35.1-43.9 [facility] prehensive Internal Medicine Work Phone: CBC W/Diff, Automated 0.000 % Normal 0.0-0.9 [facility] prehensive Internal Medicine Work Phone: Comment on above: IG% - Immature Granu locytes (promyelocytes, myelocytes andmetamyelocytes) > 1% indicates that a LEFT SHIFT is Present. [facility] Metabolic Prof ilOrdered By: Police Pilot on 03-04-2016 Comprehensive metabolic 2000 panel 22 mg/dL Abnormal 7-18 Comprehensi ve Internal Medicine Work Phone: Comment on above: [facility] spital [address] [place], [place], [id number] ; non-emergent till apt Comprehensive metabolic 2000 panel 95 mg/dL Normal 70-110 Comprehensi ve Internal Medicine Work Phone: Comment on above: [facility] [address] [place], [place], [phone] ; non-emergent till apt Comprehensive metabolic 2000 panel 53 mL/min Abnormal Comprehensi ve Internal Medicine Work Phone: Comment on above: G[facility] Calc [facility] [address] [place], [place], [address] ; non-emergent till apt Comprehensive metabolic 2000 panel 0.50 mg/dL Normal 0.20-1.00 Comprehensi ve Internal Medicine Work Phone: Comment on above: [facility] [address] [place], [place], [address] ; non-emergent till apt Comprehensive metabolic 2000 panel 44 mL/min Abnormal Comprehensi ve Internal Medicine Work Phone: Comment on above: Non- [facility] Calc [facility] [address] [place], [place], [phone] ; non-emergent till apt Comprehensive metabolic 2000 panel 1.0 {RATIO} Normal 0.9-2.4 Comprehensi ve Internal Medicine Work Phone: Comment on above: [facility] [address] [place], [place], [address] ; non-emergent till apt Comprehensive metabolic 2000 panel 17.1 {RATIO} Normal 10-20 Comprehensi ve Internal Medicine Work Phone: Comment on above: [facility] [address] [place], [place], [phone] ; non-emergent till apt Comprehensive metabolic 2000 panel 1.29 mg/dL Abnormal 0.55-1.20 Comprehensi ve Internal Medicine Work Phone: Comment on above: The validity of the calculated GFR AND GFRAA in patients over70 years has not been determined. Clinical correlation isessential. [facility] [address] [place], [place], [id number] ; non-emergent till apt Comprehensive metabolic 2000 panel 4.4 mmol/L Normal 3.5-5.1 Comprehensi ve Internal Medicine Work Phone: Comment on above: [facility] [address] [place], [place], [address] ; non-emergent till apt Comprehensive metabolic 2000 panel 8.9 mg/dL Normal 8.5-10.1 Comprehensi ve Internal Medicine Work Phone: Comment on above: [facility] [address] [place], [place], [address] ; non-emergent till apt Comprehensive metabolic 2000 panel 24 U/L Normal 15-37 Comprehensi ve Internal Medicine Work Phone: Comment on above: [facility] [address] [place], [place], [address] ; non-emergent till apt Comprehensive metabolic 2000 panel 109 mmol/L Abnormal 98-107 Comprehensi ve Internal Medicine Work Phone: Comment on above: [facility] [address] [place], [place], [address] ; non-emergent till apt Comprehensive metabolic 2000 panel 7.4 g/dL Normal 6.4-8.2 Comprehensi ve Internal Medicine Work Phone: Comment on above: [facility] [address] [place], [place], [address] ; non-emergent till apt Comprehensive metabolic 2000 panel 26.0 mmol/L Normal 21.0-32.0 Comprehensi ve Internal Medicine Work Phone: Comment on above: [facility] [address] [place], [place], [address] ; non-emergent till apt Comprehensive metabolic 2000 panel 3.7 g/dL Abnormal 2.3-3.5 Comprehensi ve Internal Medicine Work Phone: Comment on above: [facility] [address] [place], [place], [address] ; non-emergent till apt Comprehensive metabolic 2000 panel 8 1 Normal 5-15 Comprehensi ve Internal Medicine Work Phone: Comment on above: [facility] [address] [place], [place], [address] ; non-emergent till apt Comprehensive metabolic 2000 panel 143 mmol/L Normal 136-145 Comprehensi ve Internal Medicine Work Phone: Comment on above: [facility] [address] [place], [place], [address] ; non-emergent till apt Comprehensive metabolic 2000 panel 30 U/L Normal 12-78 Comprehensi ve Internal Medicine Work Phone: Comment on above: [facility] [address] [place], [place], [address] ; non-emergent till apt Comprehensive metabolic 2000 panel 32 U/L Abnormal 50-136 Comprehensi ve Internal Medicine Work Phone: Comment on above: [facility] [address] [place], [place], [address] ; non-emergent till apt Lipid ProfileOrdered By: Johan tem Bookkeeping Service Sales Agent on 03-04-2016 Cholesterol in HDL mass conc 71 mg/dL Normal [facility] Medicine Work Phone: Comment on above: Reference Range HDL <40 mg/dL Low HDL Cholesterol HDL >or= 60 mg/dL High HDL Cholesterol [facility] [address] [place], [place], [id number] Cholesterol in LDL mass conc 42 mg/dL Normal 0-130 [facility] Internal Medicine Work Phone: Comment on above: [facility] [address] [place], [place], [address] Cholesterol in VLDL mass conc 18 mg/dL Normal 5-40 [facility] Internal Medicine Work Phone: Comment on above: [facility] [address] [place], [place], [address] Cholesterol mass conc 131 mg/dL Normal Com prehensive Internal Medicine Work Phone: Comment on above: <200 mg/dL Desirable 200-240 mg/dL Borderline >240 mg/dL High Risk [facility] [address] [place], [place], [phone] Triglyceride mass conc 89 mg/dL Normal Co mprehensive Internal Medicine Work Phone: Comment on above: Serum Triglycerides Reference Interval Normal <150 mg/dL Borderline high 150 - 199 mg/dL High 200 - 499 mg/dL Very High > or = 500 mg/dL [facility] [address] [place], [place], [address] Lipid Profile 18 mg/dL Normal 5-40 Comprehensi ve Internal Medicine Work Phone: URINE JESÚS CULTURE-JOHNY COL C OUNT ([id number])Ordered By: Police Pilot on 11-03-2015 Bacteria identified Cx Nom (U) Final report Normal [facility] Work Phone: Comment on above: PATIENT NOT FASTINGP ERFORMED BY: WINDY [facility] [id number] [facility] [id number] Information: SRC:UR [id number] Bacteria identified Cx Nom (U) MUG Normal [facility] Work Phone: Comment on above: Mixed urogenital jese ra50,000-100,000 colony forming units per mL PATIENT NOT FASTINGP ERFORMED BY: WINDY [facility] [id number] [facility] [id number] Information: SRC:[facility] [id number] Urinalysis, Office ([phone])Or dered By: Mikhail Gutierrez on 11-03-2015 Bilirubin Ql (U) Negative Normal Comprehe nsive Internal Medicine Work Phone: Glucose Test strip mass conc (U) Negative Normal [facility] Work Phone: Hemoglobin Ql (U) Hemolyzed Large Normal Co mprehensive Internal Medicine Work Phone: Hemoglobin Test strip Ql (U) Hemolyzed Large Normal [facility] Work Phone: Ketones Ql (U) Negative Normal Comprehens [facility] Internal Medicine Work Phone: Leukocyte esterase Test strip Ql (U) Moderate Normal [facility] Work Phone: Nitrite Ql (U) Negative Normal [facility] Internal Medicine Work Phone: Nitrite Test strip Ql (U) Negative Normal [facility] Work Phone: pH (U) 6.5 [pH] Normal [facility] Work Phone: pH Test strip (U) 6.5 [pH] Normal Compreh ensive Internal Medicine Work Phone: Protein Ql (U) Negative Normal Comprehens [facility] Internal Medicine Work Phone: Protein Test strip Ql (U) Negative Normal [facility] Work Phone: Specific gravity Relative Density (U) 1.015 1 Normal Comprehensi ve Internal Medicine Work Phone: Urobilinogen mass/time (24H U) Normal Normal [facility] Work Phone: Urinalysis, Office ([phone])on 11-03-2015 Bilirubin Ql (U) Negative Normal Comprehe nsive Internal Medicine; [facility] Work Phone: Glucose Test strip (U) [Mass/Vol] Negative Normal [facility]; [facility] Work Phone: Ketones Ql (U) Negative Normal Comprehens [facility] Internal [facility]; [facility] Work Phone: Nitrite Ql (U) Negative Normal Com[facility] Internal Medicine; [facility] Work Phone: Protein Ql (U) Negative Normal Com[facility] Internal Medicine; [facility] Work Phone: HgA1C , Office ([phone])Ordere d By: Monet Holman on 10-09-2015 Hemoglobin A1c/Hemoglobin.total mass fraction (Bld) 5.9 % Normal 4.6 - 7.1 Comprehensiv e Internal Medicine Work Phone: CBC W/Diff, AutomatedOrdered By: Police Pilot on 09-30-2015 Absolute Neut 3.0 {X10_3/uL} Normal 2.0-7.7 Compreh ensive Internal Medicine Work Phone: Comment on above: [facility] [address] [place], [address] Basophils/100 WBC (Bld) 0.7 % Normal 0-1 [facility] Work Phone: Comment on above: [facility] [address] [place], [address] Basophils/100 WBC Auto (Bld) 0.7 % Normal 0-1 [facility] Work Phone: Eosinophils/100 WBC (Bld) 3.1 % Normal 0-5 [facility] Work Phone: Comment on above: [facility] [address] [place], [address] Eosinophils/100 WBC Auto (Bld) 3.1 % Normal 0-5 [facility] Work Phone: Erythrocyte distribution width Auto Ratio (RBC) 13.8 % Normal 11.6-14.6 [facility] Work Phone: Erythrocyte distribution width Ratio (RBC) 13.8 % Normal 11.6-14.6 [facility] Work Phone: Comment on above: [facility] [address] [place], [place], [id number] Hematocrit Auto Volume Fraction (Bld) 38.2 % Normal 37-47 [facility] Work Phone: Hematocrit Volume Fraction (Bld) 38.2 % Normal 37-47 [facility] Work Phone: Comment on above: [place] [id number] [place], [place], [phone] Hemoglobin mass conc (Bld) 12.4 g/dL Normal 12.0-15.0 [facility] Work Phone: Comment on above: [place] [address] [place], [place], [phone] IM GRAN % 0.000 % Normal 0.0-0.9 [facility] Work Phone: Comment on above: IG% - Immature Granu locytes (promyelocytes, myelocytes andmetamyelocytes) > 1% indicates that a LEFT SHIFT is Present. [place] [address] [place], [place], [phone] Lymphocytes #/vol (Bld) 1.90 {X10_3/ul} Normal 0.83-4.51 [facility] Work Phone: Comment on above: [place] [address] [place], [address] Lymphocytes/100 WBC (Bld) 34.6 % Normal 19-41 [facility] Medicine Work Phone: Comment on above: [place] [address] [place], [address] Lymphocytes/100 WBC Auto (Bld) 34.6 % Normal 19-41 [facility] Work Phone: MCH Auto Entitic mass (RBC) 28.8 pg Normal 27.0-32.0 [facility] Work Phone: MCH Entitic mass (RBC) 28.8 pg Normal 27.0-32.0 [facility] Work Phone: Comment on above: [facility] [address] [place], [address] MCHC Auto mass conc (RBC) 32.5 {g/gl} Normal 32-36 [facility] Work Phone: MCHC mass conc (RBC) 32.5 {g/gl} Normal 32-36 [facility] prehensive Internal Medicine Work Phone: Comment on above: [facility] [address] [place], [address] MCV Auto Entitic volume (RBC) 88.8 fL Normal 81-99 [facility] Work Phone: MCV Entitic volume (RBC) 88.8 fL Normal 81-99 [facility] Work Phone: Comment on above: [facility] [address] [place], [address] Monocytes/100 WBC (Bld) 7.7 % Normal 0-10 [facility] Work Phone: Comment on above: [facility] [address] [place], [address] Monocytes/100 WBC Auto (Bld) 7.7 % Normal 0-10 [facility] Work Phone: Neutrophils/100 WBC (Bld) 53.9 % Normal 47-70 [facility] Work Phone: Comment on above: [facility] [address] [place], [address] Neutrophils/100 WBC Auto (Bld) 53.9 % Normal 47-70 [facility] Work Phone: Platelet mean volume Auto Entitic volume (Bld) 9.1 fL Normal 6.2-12.0 [facility] Work Phone: Platelet mean volume Entitic volume (Bld) 9.1 fL Normal 6.2-12.0 Comprehensi ve Internal Medicine Work Phone: Comment on above: [facility] [address] [place], [address] Platelets #/vol (Bld) 325 10*3/uL Normal 150-450 Co mprehensive Internal Medicine Work Phone: Comment on above: [facility] [address] [place], [address] Platelets Auto #/vol (Bld) 325 10*3/uL Normal 150-450 [facility] Work Phone: RBC #/vol (Bld) 4.30 {M/mm3} Normal 4.2-5.4 Compreh ensive Internal Medicine Work Phone: Comment on above: [facility] [address] [place], [address] RBC Auto #/vol (Bld) 4.30 {M/mm3} Normal 4.2-5.4 [facility] Work Phone: RDW SD 44.0 fL Abnormal 35.1-43.9 [facility] Work Phone: Comment on above: [facility] [address] [place], [address] WBC #/vol (Bld) 5.5 10*3/uL Normal 4.4-11.0 Comprehe nsive Internal Medicine Work Phone: Comment on above: [facility] [address] [place], [address] WBC Auto #/vol (Bld) 5.5 10*3/uL Normal 4.4-11.0 Com prehensive Internal Medicine Work Phone: CBC W/Diff, Automated 44.0 fL Abnormal 35.1-43.9 Com prehensive Internal Medicine Work Phone: CBC W/Diff, Automated 0.000 % Normal 0.0-0.9 [facility] prehensive Internal Medicine Work Phone: Comment on above: IG% - Immature Granu locytes (promyelocytes, myelocytes andmetamyelocytes) > 1% indicates that a LEFT SHIFT is Present. CBC W/Diff, Automated 3.0 {X10_3/uL} Normal 2.0-7.7 [facility] Work Phone: CBC W/Diff, Automated 1.90 {X10_3/ul} Normal 0.83-4.51 [facility] Work Phone: Comprehensive Metabolic Prof ilOrdered By: Police Pilot on 09-30-2015 Comprehensive metabolic 2000 panel 27 U/L Normal 15-37 Comprehensi ve Internal Medicine Work Phone: Comment on above: [facility] spital [address] [place], [place], [phone] ; non-emergent till apt Comprehensive metabolic 2000 panel 32 U/L Abnormal 50-136 Comprehensi ve Internal Medicine Work Phone: Comment on above: [facility] [address] [place], [place], [address] ; non-emergent till apt Comprehensive metabolic 2000 panel 34 U/L Normal 12-78 Comprehensi ve Internal Medicine Work Phone: Comment on above: [facility] [address] [place], [place], [address] ; non-emergent till apt Comprehensive metabolic 2000 panel 0.40 mg/dL Normal 0.20-1.00 Comprehensi ve Internal Medicine Work Phone: Comment on above: [facility] [address] [place], [place], [address] ; non-emergent till apt Comprehensive metabolic 2000 panel 141 mmol/L Normal 136-145 Comprehensi ve Internal Medicine Work Phone: Comment on above: [facility] [address] [place], [place], [address] ; non-emergent till apt Comprehensive metabolic 2000 panel 4.1 mmol/L Normal 3.5-5.1 Comprehensi ve Internal Medicine Work Phone: Comment on above: [facility] [address] [place], [place], [address] ; non-emergent till apt Comprehensive metabolic 2000 panel 108 mmol/L Abnormal 98-107 Comprehensi ve Internal Medicine Work Phone: Comment on above: [facility] [address] [place], [place], [address] ; non-emergent till apt Comprehensive metabolic 2000 panel 28.0 mmol/L Normal 21.0-32.0 Comprehensi ve Internal Medicine Work Phone: Comment on above: [facility] [address] [place], [place], [phone] ; non-emergent till apt Comprehensive metabolic 2000 panel 5 1 Normal 5-15 Comprehensi ve Internal Medicine Work Phone: Comment on above: [facility] [address] [place], [place], [address] ; non-emergent till apt Comprehensive metabolic 2000 panel 8.6 mg/dL Normal 8.5-10.1 Comprehensi ve Internal Medicine Work Phone: Comment on above: [facility] [address] [place], [place], [address] ; non-emergent till apt Comprehensive metabolic 2000 panel 17 mg/dL Normal 7-18 Comprehensi ve Internal Medicine Work Phone: Comment on above: [facility] [address] [place], [place], [address] ; non-emergent till apt Comprehensive metabolic 2000 panel 1.20 mg/dL Normal 0.55-1.20 Comprehensi ve Internal Medicine Work Phone: Comment on above: The validity of the calculated GFR AND GFRAA in patients over70 years has not been determined. Clinical correlation isessential. [facility] [address] [place], [address] ; non-emergent till apt Comprehensive metabolic 2000 panel 91 mg/dL Normal 70-110 Comprehensi ve Internal Medicine Work Phone: Comment on above: [facility] [address] [place], [address] ; non-emergent till apt Comprehensive metabolic 2000 panel 47 mL/min Abnormal Comprehensi ve Internal Medicine Work Phone: Comment on above: Non- GFR Calc [facility] [address] [place], [address] ; non-emergent till apt Comprehensive metabolic 2000 panel 57 mL/min Abnormal Comprehensi ve Internal Medicine Work Phone: Comment on above: GFR Calc [facility] [address] [place], [place], [phone] ; non-emergent till apt Comprehensive metabolic 2000 panel 14.2 {RATIO} Normal 10-20 Comprehensi ve Internal Medicine Work Phone: Comment on above: [facility] [address] [place], [place], [address] ; non-emergent till apt Comprehensive metabolic 2000 panel 7.1 g/dL Normal 6.4-8.2 Comprehensi ve Internal Medicine Work Phone: Comment on above: [facility] [address] [place], [place], [address] ; non-emergent till apt Comprehensive metabolic 2000 panel 3.6 g/dL Normal 3.4-5.0 Comprehensi ve Internal Medicine Work Phone: Comment on above: [facility] [address] [place], [place], [address] ; non-emergent till apt Comprehensive metabolic 2000 panel 3.5 g/dL Normal 2.3-3.5 Comprehensi ve Internal Medicine Work Phone: Comment on above: [facility] [address] [place], [place], [address] ; non-emergent till apt Comprehensive metabolic 2000 panel 1.0 {RATIO} Normal 0.9-2.4 Comprehensi ve Internal Medicine Work Phone: Comment on above: [facility] [address] [place], [place], [address] ; non-emergent till apt Lipid ProfileOrdered By: Johan tem Bookkeeping Service Sales Agent on 09-30-2015 Cholesterol in HDL mass conc 65 mg/dL Normal [facility] Work Phone: Comment on above: Reference Range HDL <40 mg/dL Low HDL Cholesterol HDL >or= 60 mg/dL High HDL Cholesterol [facility] [address] [place], [place], [address] Cholesterol in LDL mass conc 54 mg/dL Normal 0-130 [facility] Work Phone: Comment on above: [facility] [address] [place], [place], [address] Cholesterol in VLDL mass conc 20 mg/dL Normal 5-40 [facility] Work Phone: Comment on above: [facility] [address] [place], [place], [phone] Cholesterol mass conc 139 mg/dL Normal Com prehensive Internal Medicine Work Phone: Comment on above: <200 mg/dL Desirable 200-240 mg/dL Borderline >240 mg/dL High Risk [facility] [address] [place], [place], [id number] Triglyceride mass conc 99 mg/dL Normal Co mprehensive Internal Medicine Work Phone: Comment on above: Serum Triglycerides Reference Interval Normal <150 mg/dL Borderline high 150 - 199 mg/dL High 200 - 499 mg/dL Very High > or = 500 mg/dL [facility] [address] [place], [place], [address] Lipid Profile 20 mg/dL Normal 5-40 Comprehensi ve Internal Medicine Work Phone: HgA1C , Office ([phone])Ordere d By: Monet Holman on 06-21-2015 Hemoglobin A1c/Hemoglobin.total mass fraction (Bld) 6.1 % Normal 4.6 - 7.1 Comprehensiv e Internal Medicine Work Phone: AFP, Tumor MarkerOrdered By: Police Pilot on 06-17-2015 AFP.tumor marker mass conc 2.6 ng/mL Normal 0.0-8.3 [facility] Internal Medicine Work Phone: Comment on above: Cristofer ECLIA methodol ogyPerformed at: [facility] [id number] Director: Russ Elias PhD, Phone: [phone]; ADDENDA: normal and had apt this week Is Patient ? NTest performed at:[facility] [address] [place] [address] Comprehensive Metabolic Prof ilOrdered By: Police Pilot on 06-17-2015 Comprehensive metabolic 2000 panel 7.0 g/dL Normal 6.4-8.2 Comprehensi ve Internal Medicine Work Phone: Comment on above: Test performed at:[facility] [address] [place] [address] ; non-emergent till apt Comprehensive metabolic 2000 panel 37 U/L Normal 12-78 Comprehensi ve Internal Medicine Work Phone: Comment on above: Test performed at:[facility] [address] [place], [place] [id number] ; non-emergent till apt Comprehensive metabolic 2000 panel 0.50 mg/dL Normal 0.20-1.00 Comprehensi ve Internal Medicine Work Phone: Comment on above: Test performed at:[facility] [address] [place], [place] [id number] ; non-emergent till apt Comprehensive metabolic 2000 panel 94 mg/dL Normal 70-110 Comprehensi ve Internal Medicine Work Phone: Comment on above: Test performed at:[facility] [address] [place] [address] ; non-emergent till apt Comprehensive metabolic 2000 panel 18 mg/dL Normal 7-18 Comprehensi ve Internal Medicine Work Phone: Comment on above: Test performed at:[facility] [address] [place] [address] ; non-emergent till apt Comprehensive metabolic 2000 panel 143 mmol/L Normal 136-145 Comprehensi ve Internal Medicine Work Phone: Comment on above: Test performed at:[facility] [address] [place] [address] ; non-emergent till apt Comprehensive metabolic 2000 panel 1.4 mg/dL Abnormal 0.6-1.0 Comprehensi ve Internal Medicine Work Phone: Comment on above: Test performed at:[facility] [address] [place] [address] ; non-emergent till apt Comprehensive metabolic 2000 panel 4.1 mmol/L Normal 3.5-5.1 Comprehensi ve Internal Medicine Work Phone: Comment on above: Test performed at:[facility] [address] [place] [address] ; non-emergent till apt Comprehensive metabolic 2000 panel 40 mL/min Abnormal Comprehensi ve Internal Medicine Work Phone: Comment on above: Test performed at:[facility] [address] [place] [address] ; non-emergent till apt Comprehensive metabolic 2000 panel 107 mmol/L Normal 98-107 Comprehensi ve Internal Medicine Work Phone: Comment on above: Test performed at:[facility] [address] [place] [address] ; non-emergent till apt Comprehensive metabolic 2000 panel 8.9 mg/dL Normal 8.5-10.1 Comprehensi ve Internal Medicine Work Phone: Comment on above: Test performed at:[facility] [address] [place] [address] ; non-emergent till apt Comprehensive metabolic 2000 panel 25.0 mmol/L Normal 21.0-32.0 Comprehensi ve Internal Medicine Work Phone: Comment on above: Test performed at:[facility] [address] [place] [address] ; non-emergent till apt Comprehensive metabolic 2000 panel 11 1 Normal 5-15 Comprehensi ve Internal Medicine Work Phone: Comment on above: Test performed at:[facility] [address] [place] [address] ; non-emergent till apt Comprehensive metabolic 2000 panel 22 U/L Normal 15-37 Comprehensi ve Internal Medicine Work Phone: Comment on above: Test performed at:[facility] [address] [place] [address] ; non-emergent till apt Comprehensive metabolic 2000 panel 1.1 {RATIO} Normal 0.9-2.4 Comprehensi ve Internal Medicine Work Phone: Comment on above: Test performed at:[facility] [address] [place] [address] ; non-emergent till apt Comprehensive metabolic 2000 panel 27 U/L Abnormal 50-136 Comprehensi ve Internal Medicine Work Phone: Comment on above: Test performed at:[facility] [address] [place] [address] ; non-emergent till apt Comprehensive metabolic 2000 panel 3.4 g/dL Normal 2.7-4.2 Comprehensi ve Internal Medicine Work Phone: Comment on above: Test performed at:[facility] [address] [place] [address] ; non-emergent till apt Comprehensive metabolic 2000 panel 3.6 g/dL Normal 3.4-5.0 Comprehensi ve Internal Medicine Work Phone: Comment on above: Test performed at:[facility] [address] [place], [place] [id number] ; non-emergent till apt Comprehensive metabolic 2000 panel 48 mL/min Abnormal Comprehensi ve Internal Medicine Work Phone: Comment on above: Test performed at:[facility] [address] [place], [place] [id number] ; non-emergent till apt Comprehensive metabolic 2000 panel 12.9 {RATIO} Normal 10-20 Comprehensi ve Internal Medicine Work Phone: Comment on above: Test performed at:[facility] [address] [place], [place] [id number] ; non-emergent till apt Lipid ProfileOrdered By: Johan tem Bookkeeping Service Sales Agent on 06-17-2015 Cholesterol in HDL mass conc 58 mg/dL Normal Comprehensive Internal Medicine Work Phone: Comment on above: Reference Range HDL <40 mg/dL Low HDL Cholesterol HDL >or= 60 mg/dL High HDL Cholesterol Test performed at:[facility] [address] [place] [address] Cholesterol in LDL mass conc 74 mg/dL Normal 0-130 Comprehensive Internal Medicine Work Phone: Comment on above: Test performed at:[facility] [address] [place] [address] Cholesterol in VLDL mass conc 22 mg/dL Normal 5-40 Comprehensive Internal Medicine Work Phone: Comment on above: Test performed at:[facility] [address] [place] [address] Cholesterol mass conc 154 mg/dL Normal Com prehensive Internal Medicine Work Phone: Comment on above: <200 mg/dL Desirable 200-240 mg/dL Borderline >240 mg/dL High Risk Test performed at:[facility] [address] [place] [address] Triglyceride mass conc 111 mg/dL Normal 0-199 Co mprehensive Internal Medicine Work Phone: Comment on above: Serum Triglycerides Reference Interval Normal <150 mg/dL Borderline high 150 - 199 mg/dL High 200 - 499 mg/dL Very High > or = 500 mg/dL Test performed at:[facility] [address] [place] [address] Lipid Profile 22 mg/dL Normal 5-40 Comprehensi ve Internal Medicine Work Phone: MicroalbOrdered By: Marcelino fox on 06-17-2015 Creatinine mass conc 5.3 {mg/g_CRE} Normal Comprehensive Internal Medicine Work Phone: Comment on above: Test performed at:[facility] [address] [place] [address] Creatinine mass conc 139.0 mg/dL Normal Com prehensive Internal Medicine Work Phone: Comment on above: Test performed at:[facility] [address] [place] [address] Microalb 7.4 mg/L Normal Comprehensive Internal Medicine Work Phone: Comment on above: Test performed at:[facility] [address] [place] [address] Microalb 139.0 mg/dL Normal Comprehensive Internal Medicine Work Phone: HgA1C , Office ([phone])Ordere d By: Idalia Ellis on 02-15-2015 Hemoglobin A1c/Hemoglobin.total mass fraction (Bld) 5.9 % Normal 4.6 - 7.1 Comprehensiv e Internal Medicine Work Phone: Comprehensive Metabolic Prof ilOrdered By: Police Pilot on 02-11-2015 Albumin mass conc 3.9 g/dL Normal 3.4-5.0 Compreh ensive Internal Medicine Work Phone: Comment on above: Test performed at:[facility] [address] [place] [address] Albumin/Globulin mass ratio 1.1 {RATIO} Normal 0.9-2.4 Comprehensive Internal Medicine Work Phone: Comment on above: Test performed at:[facility] [address] [place] [address] ALT enzyme act/vol 36 U/L Normal 12-78 [facility] Internal Medicine Work Phone: Comment on above: Test performed at:[facility] [address] [place] [address] AST enzyme act/vol 27 U/L Normal 15-37 [facility] Work Phone: Comment on above: Test performed at:[facility] [address] [place] [address] Bilirubin mass conc 0.50 mg/dL Normal 0.00-4.[address] [facility] Internal Medicine Work Phone: Comment on above: Test performed at:[facility] [address] [place] [address] Calcium mass conc 8.7 mg/dL Normal 8.5-10.1 Compreh [facility] Internal Medicine Work Phone: Comment on above: Test performed at:[facility] [address] [place] [address] Chloride molar conc 107 mmol/L Normal 98-[address] [facility] Internal Medicine Work Phone: Comment on above: Test performed at:[facility] [address] [place] [address] CO2 molar conc 30.0 mmol/L Normal 21.0-32.0 [facility] Work Phone: Comment on above: Test performed at:[facility] [address] [place] [address] Creatinine mass conc 1.3 mg/dL Abnormal 0.6-1.0 [facility] Work Phone: Comment on above: Test performed at:[facility] [address] [place] [address] GFR/1.73 sq M predicted among non-blacks MDRD vol rate/area (S/P/Bld) 43 mL/min/{1.73_m2} Abnormal Comprehe nsive Internal Medicine Work Phone: Comment on above: Test performed at:[facility] [address] [place] [address] Globulin Calculated mass conc (S) 3.6 g/dL Normal 2.7-4.2 Comprehensive Internal Medicine Work Phone: Globulin mass conc (S) 3.6 g/dL Normal 2.7-4.2 Co mprehensive Internal Medicine Work Phone: Comment on above: Test performed at:[facility] [address] [place] [address] Glucose mass conc 94 mg/dL Normal 70-110 Compreh ensive Internal Medicine Work Phone: Comment on above: Test performed at:[facility] [address] [place] [address] Potassium molar conc 4.2 mmol/L Normal 3.5-5.1 Comp rehensive Internal Medicine Work Phone: Comment on above: Test performed at:[facility] [address] [place] [address] Protein mass conc 7.5 g/dL Normal 6.4-8.2 Compreh ensive Internal Medicine Work Phone: Comment on above: Test performed at:[facility] [address] [place] [address] Sodium molar conc 141 mmol/L Normal 136-145 Compreh ensive Internal Medicine Work Phone: Comment on above: Test performed at:[facility] [address] [place] [address] Urea nitrogen mass conc 19 mg/dL Abnormal 7-18 Comprehensive Internal Medicine Work Phone: Comment on above: Test performed at:[facility] [address] [place], [place] [address] Comprehensive Metabolic Profil 33 U/L Abnormal 50-136 Comprehensive Internal Medicine Work Phone: Comment on above: Test performed at:[facility] [address] [place], [place] [id number] Comprehensive Metabolic Profil 14.6 {RATIO} Normal 10-20 Comprehensive Internal Medicine Work Phone: Comment on above: Test performed at:[facility] [address] [place] [address] Comprehensive Metabolic Profil 52 mL/min Abnormal Comprehensive Internal Medicine Work Phone: Comment on above: Test performed at:[facility] [address] [place] [address] Comprehensive Metabolic Profil 4 1 Abnormal 5-15 Comprehensive Internal Medicine Work Phone: Comment on above: Test performed at:[facility] [address] [place] [address] Lipid ProfileOrdered By: Johan tem Bookkeeping Service Sales Agent on 02-11-2015 Cholesterol in HDL mass conc 66 mg/dL Normal Comprehensive Internal Medicine Work Phone: Comment on above: Reference Range HDL <40 mg/dL Low HDL Cholesterol HDL >or= 60 mg/dL High HDL Cholesterol Test performed at:[facility] [address] [place] [address] Cholesterol in LDL mass conc 44 mg/dL Normal 0-130 Comprehensive Internal Medicine Work Phone: Comment on above: Test performed at:[facility] [address] [place] [address] Cholesterol in VLDL mass conc 22 mg/dL Normal 5-40 Comprehensive Internal Medicine Work Phone: Comment on above: Test performed at:[facility] [address] [place] [address] Cholesterol mass conc 132 mg/dL Normal Com prehensive Internal Medicine Work Phone: Comment on above: <200 mg/dL Desirable 200-240 mg/dL Borderline >240 mg/dL High Risk Test performed at:[facility] [address] [place] [address] Triglyceride mass conc 111 mg/dL Normal 0-199 Co mprehensive Internal Medicine Work Phone: Comment on above: Serum Triglycerides Reference Interval Normal <150 mg/dL Borderline high 150 - 199 mg/dL High 200 - 499 mg/dL Very High > or = 500 mg/dL Test performed at:[facility] [address] [place] [address] Lipid Profile 22 mg/dL Normal 5-40 Comprehensi ve Internal Medicine Work Phone: HgA1C , Office ([phone])Ordere d By: Idalia Ellis on 10-19-2014 Hemoglobin A1c/Hemoglobin.total mass fraction (Bld) 5.8 % Normal 4.6 - 7.1 Comprehensiv e Internal Medicine Work Phone: AFPTOrdered By: System Manag er on 10-17-2014 AFPT 2.6 ng/mL Normal 0.0-8.3 Comprehensive Internal Medicine Work Phone: Comment on above: Cristofer ECLIA methodol ogyPerformed at: - [facility] [id number] Director: Russ Elias PhD, Phone: [phone] Is Patient ? N CMPOrdered By: System Manage r on 10-17-2014 Albumin mass conc 4.0 g/dL Normal 3.4-5.0 Compreh ensive Internal Medicine Work Phone: Albumin/Globulin mass ratio 1.1 {RATIO} Normal 0.9-2.4 Comprehensive Internal Medicine Work Phone: ALP enzyme act/vol 36 U/L Abnormal 50-136 Compre hensive Internal Medicine Work Phone: ALT enzyme act/vol 39 U/L Normal 12-78 Compre hensive Internal Medicine Work Phone: AST enzyme act/vol 23 U/L Normal 15-37 Compre hensive Internal Medicine Work Phone: Bilirubin mass conc 0.50 mg/dL Normal 0.00-4.00 Compr ehensive Internal Medicine Work Phone: Calcium mass conc 9.0 mg/dL Normal 8.5-10.1 Compreh ensive Internal Medicine Work Phone: Chloride molar conc 107 mmol/L Normal 98-107 Compr ehensive Internal Medicine Work Phone: CO2 molar conc 27.0 mmol/L Normal 21.0-32.0 Comprehen sive Internal Medicine Work Phone: Creatinine mass conc 1.4 mg/dL Abnormal 0.6-1.0 Comp rehensive Internal Medicine Work Phone: GFR/1.73 sq M predicted among non-blacks MDRD vol rate/area (S/P/Bld) 40 mL/min/{1.73_m2} Abnormal Comprehe nsive Internal Medicine Work Phone: Globulin Calculated mass conc (S) 3.5 g/dL Normal 2.7-4.2 Comprehensive Internal Medicine Work Phone: Globulin mass conc (S) 3.5 g/dL Normal 2.7-4.2 Co mprehensive Internal Medicine Work Phone: Glucose mass conc 98 mg/dL Normal 70-110 Compreh ensive Internal Medicine Work Phone: Potassium molar conc 4.0 mmol/L Normal 3.5-5.1 Comp rehensive Internal Medicine Work Phone: Protein mass conc 7.5 g/dL Normal 6.4-8.2 Compreh ensive Internal Medicine Work Phone: Sodium molar conc 140 mmol/L Normal 136-145 Compreh ensive Internal Medicine Work Phone: Urea nitrogen mass conc 19 mg/dL Abnormal 7-18 Comprehensive Internal Medicine Work Phone: Urea nitrogen/Creatinine mass ratio 13.6 {RATIO} Normal 10-20 Comprehensive Internal Medicine Work Phone: CMP 48 mL/min Abnormal Comprehensive Internal Medicine Work Phone: CMP 6 1 Normal 5-15 Comprehensive Internal Medicine Work Phone: LIPIDOrdered By: System Emerald barber on 10-17-2014 Cholesterol in HDL mass conc 63 mg/dL Normal Comprehensive Internal Medicine Work Phone: Comment on above: Reference RangeHDL < 40 mg/dL Low HDL CholesterolHDL >or= 60 mg/dL High HDL Cholesterol Cholesterol in LDL mass conc 65 mg/dL Normal 0-130 Comprehensive Internal Medicine Work Phone: Cholesterol mass conc 156 mg/dL Normal Com prehensive Internal Medicine Work Phone: Comment on above: <200 mg/dL Desirable 200-240 mg/dL Borderline>240 mg/dL High Risk Triglyceride mass conc 142 mg/dL Normal 0-199 Co mprehensive Internal Medicine Work Phone: Comment on above: Serum Triglycerides Reference IntervalNormal <150 mg/dLBorderline high 150 - 199 mg/dLHigh 200 - 499 mg/dLVery High > or = 500 mg/dL LIPID 28 mg/dL Normal 5-40 Comprehensive Internal Medicine Work Phone: PTOrdered By: Police Pilot on 10-17-2014 INR Coag RelTime (PPP) 1.0 {INR} Normal Co mprehensive Internal Medicine Work Phone: Prothrombin time (PT) Coag time (PPP) 1.0 s Normal Comprehensive Internal Medicine Work Phone: Prothrombin time (PT) Coag time (PPP) 13.0 s Normal 11.7-14.9 Comprehensive Internal Medicine Work Phone: PT 13.0 s Normal 11.7-14.9 Comprehensive Internal Medicine Work Phone: PTTOrdered By: System Manage r on 10-17-2014 aPTT Coag time (Bld) 27.6 s Normal 24.1-36.2 Comp rehensive Internal Medicine Work Phone: AFPTOrdered By: System Manag er on 08-10-2014 AFPT 2.4 ng/mL Normal 0.0-8.3 Comprehensive Internal Medicine Work Phone: Comment on above: Cristofer ECLIA methodol ogyPerformed at: CB - [facility] [id number] Director: Russ Elias PhD, Phone: [phone] Is Patient ? N CMPOrdered By: System Manage r on 08-10-2014 Albumin mass conc 3.6 g/dL Normal 3.4-5.0 Compreh ensive Internal Medicine Work Phone: Albumin/Globulin mass ratio 1.1 {RATIO} Normal 0.9-2.4 Comprehensive Internal Medicine Work Phone: ALP enzyme act/vol 33 U/L Abnormal 45-117 Compre [facility] Internal Medicine Work Phone: ALT enzyme act/vol 40 U/L Normal 12-78 Compre [facility] Internal Medicine Work Phone: AST enzyme act/vol 23 U/L Normal 15-37 Compre [facility] Internal Medicine Work Phone: Bilirubin mass conc 0.30 mg/dL Normal 0.00-1.00 Compr ensive Internal Medicine Work Phone: Calcium mass conc 8.6 mg/dL Normal 8.5-10.1 Compreh ensive Internal Medicine Work Phone: Chloride molar conc 107 mmol/L Normal 98-107 Compr ensive Internal Medicine Work Phone: CO2 molar conc 25.0 mmol/L Normal 21.0-32.0 [facility] Internal [facility] Work Phone: Creatinine mass conc 1.3 mg/dL Abnormal 0.6-1.0 [facility] Work Phone: GFR/1.73 sq M predicted among non-blacks MDRD vol rate/area (S/P/Bld) 43 mL/min/{1.73_m2} Abnormal Comprehe nsive Internal Medicine Work Phone: Globulin Calculated mass conc (S) 3.4 g/dL Normal 2.7-4.2 Comprehensive Internal Medicine Work Phone: Globulin mass conc (S) 3.4 g/dL Normal 2.7-4.2 Co mprehensive Internal Medicine Work Phone: Glucose mass conc 113 mg/dL Abnormal 70-110 Compreh ensive Internal Medicine Work Phone: Comment on above: Fasting Glucose resu lt from 110 to <126 mg/dLsuggests IMPAIRED HOMEOSTASIS per A.D.A. criteria. Potassium molar conc 4.1 mmol/L Normal 3.5-5.1 Comp rehensive Internal Medicine Work Phone: Protein mass conc 7.0 g/dL Normal 6.4-8.2 Compreh ensive Internal Medicine Work Phone: Sodium molar conc 139 mmol/L Normal 136-145 Compreh ensive Internal Medicine Work Phone: Urea nitrogen mass conc 18 mg/dL Normal 7-18 Comprehensive Internal Medicine Work Phone: Urea nitrogen/Creatinine mass ratio 13.8 {RATIO} Normal 10-20 Comprehensive Internal Medicine Work Phone: CMP 52 mL/min Abnormal Comprehensive Internal Medicine Work Phone: CMP 7 1 Normal 5-15 Comprehensive Internal Medicine Work Phone: LIPIDOrdered By: System Clipyoo on 08-10-2014 Cholesterol in HDL mass conc 63 mg/dL Normal Comprehensive Internal Medicine Work Phone: Comment on above: Reference RangeHDL < 40 mg/dL Low HDL CholesterolHDL >or= 60 mg/dL High HDL Cholesterol Cholesterol in LDL mass conc 50 mg/dL Normal 0-130 Comprehensive Internal Medicine Work Phone: Cholesterol mass conc 139 mg/dL Normal Com prehensive Internal Medicine Work Phone: Comment on above: <200 mg/dL Desirable 200-240 mg/dL Borderline>240 mg/dL High Risk Triglyceride mass conc 128 mg/dL Normal 0-199 [facility] Work Phone: Comment on above: Serum Triglycerides Reference IntervalNormal <150 mg/dLBorderline high 150 - 199 mg/dLHigh 200 - 499 mg/dLVery High > or = 500 mg/dL LIPID 26 mg/dL Normal 5-40 Comprehensive Internal Medicine Work Phone: PTOrdered By: Police Pilot on 08-10-2014 INR Coag RelTime (PPP) 1.0 {INR} Normal Co mprehensive Internal Medicine Work Phone: Prothrombin time (PT) Coag time (PPP) 1.0 s Normal Comprehensive Internal Medicine Work Phone: Prothrombin time (PT) Coag time (PPP) 12.9 s Normal 11.7-14.9 Comprehensive Internal Medicine Work Phone: PT 12.9 s Normal 11.7-14.9 Comprehensive Internal Medicine Work Phone: PTTOrdered By: System Manage r on 08-10-2014 aPTT Coag time (Bld) 29.0 s Normal 24.1-36.2 Comp [facility] Internal Medicine Work Phone: HgA1C , Office ([phone])Ordere d By: Fiorella Whelan on 07-20-2014 Hemoglobin A1c/Hemoglobin.total mass fraction (Bld) 6.0 % Normal 4.6 - 7.1 Comprehensiv e Internal Medicine Work Phone: CMPOrdered By: System Manage r on 07-13-2014 Albumin mass conc 3.8 g/dL Normal 3.4-5.0 Compreh ensive Internal Medicine Work Phone: Comment on above: will review at 8-20 appt Albumin/Globulin mass ratio 1.0 {RATIO} Normal 0.9-2.4 [facility] Internal Medicine Work Phone: Comment on above: will review at 8-20 appt ALP enzyme act/vol 34 U/L Abnormal 45-117 [facility] Work Phone: Comment on above: will review at 8-20 appt ALT enzyme act/vol 44 U/L Normal 12-78 [facility] Internal Medicine Work Phone: Comment on above: will review at 8-20 appt AST enzyme act/vol 28 U/L Normal 15-37 [facility] Internal Medicine Work Phone: Comment on above: will review at 8-20 appt Bilirubin mass conc 0.50 mg/dL Normal 0.00-1.00 Compr ehensive Internal Medicine Work Phone: Comment on above: will review at 8-20 appt Calcium mass conc 9.1 mg/dL Normal 8.5-10.1 Compreh ensive Internal Medicine Work Phone: Comment on above: will review at 8-20 appt Chloride molar conc 107 mmol/L Normal 98-107 Compr ehensive Internal Medicine Work Phone: Comment on above: will review at 8-20 appt CO2 molar conc 26.0 mmol/L Normal 21.0-32.0 Comprehen sive Internal Medicine Work Phone: Comment on above: will review at 8-20 appt Creatinine mass conc 1.4 mg/dL Abnormal 0.6-1.0 [facility] Work Phone: Comment on above: will review at 8-20 appt GFR/1.73 sq M predicted among non-blacks MDRD vol rate/area (S/P/Bld) 40 mL/min/{1.73_m2} Abnormal Comprehe nsive Internal Medicine Work Phone: Comment on above: will review at 8-20 appt Globulin Calculated mass conc (S) 3.7 g/dL Normal 2.7-4.2 [facility] Internal Medicine Work Phone: Globulin mass conc (S) 3.7 g/dL Normal 2.7-4.2 Co mprehensive Internal Medicine Work Phone: Comment on above: will review at 8-20 appt Glucose mass conc 89 mg/dL Normal 70-110 Compreh ensive Internal Medicine Work Phone: Comment on above: will review at 8-20 appt Potassium molar conc 4.0 mmol/L Normal 3.5-5.1 Comp rehensive Internal Medicine Work Phone: Comment on above: will review at 8-20 appt Protein mass conc 7.5 g/dL Normal 6.4-8.2 Compreh ensive Internal Medicine Work Phone: Comment on above: will review at 8-20 appt Sodium molar conc 138 mmol/L Normal 136-145 Compreh ensive Internal Medicine Work Phone: Comment on above: will review at 8-20 appt Urea nitrogen mass conc 20 mg/dL Abnormal 7-18 [facility] Medicine Work Phone: Comment on above: will review at 8-20 appt Urea nitrogen/Creatinine mass ratio 14.3 {RATIO} Normal 10-20 Comprehensive Internal Medicine Work Phone: Comment on above: will review at 8-20 appt CMP 5 1 Normal 5-15 [facility] Work Phone: Comment on above: will review at 8-20 appt CMP 48 mL/min Abnormal [facility] Work Phone: Comment on above: will review at 8-20 appt CUUROrdered By: System Manag er on 07-13-2014 CUUR See Note Normal [facility] Work Phone: Comment on above: ORGANISM 1: Mixed Gr am Positive OrganismsColony Count 11,000-25,000MIX CONTAM Mixed Contaminants. Submit new specimen if indicated. LIPIDOrdered By: System Emerald barber on 07-13-2014 Cholesterol in HDL mass conc 66 mg/dL Normal [facility] Work Phone: Comment on above: Reference RangeHDL < 40 mg/dL Low HDL CholesterolHDL >or= 60 mg/dL High HDL Cholesterol Cholesterol in LDL mass conc 64 mg/dL Normal 0-130 [facility] Work Phone: Cholesterol mass conc 155 mg/dL Normal Com prehensive [facility] Work Phone: Comment on above: <200 mg/dL Desirable 200-240 mg/dL Borderline>240 mg/dL High Risk Triglyceride mass conc 126 mg/dL Normal 0-199 [facility] Work Phone: Comment on above: Serum Triglycerides Reference IntervalNormal <150 mg/dLBorderline high 150 - 199 mg/dLHigh 200 - 499 mg/dLVery High > or = 500 mg/dL LIPID 25 mg/dL Normal 5-40 [facility] Work Phone: HgA1C , Office ([id number])Ordere d By: Idalia Fast on 03-16-2014 Hemoglobin A1c/Hemoglobin.total mass fraction (Bld) 5.6 % Normal 4.6 - 7.1 [facility] Work Phone: URINE JSEÚS CULTURE-JOHNY COL C OUNT ([id number])Ordered By: Police Pilot on 03-16-2014 Bacteria identified Cx Nom (U) Final report Abnormal [facility] Work Phone: Comment on above: PATIENT NOT FASTINGP ERFORMED BY: [employer] [place] [id number] Information: SRC:UR [id number] Bacteria identified Cx Nom (U) Hafnia alvei Abnormal [facility] Work Phone: Comment on above: Greater than 100,000 colony forming units per mL PATIENT NOT FASTINGP ERFORMED BY: [employer] [place] [id number] Information: SRC:UR R00687 Other Antibiotic [facility] prehensive [facility] Work Phone: Comment on above: S = Susceptibl e; I = Intermediate; R = Resistant P = Positive; N = Negative MICS are expressed in micrograms per mL Antibiotic RSLT#1 RSLT#2 RSLT#3 RSLT#4Amoxicillin/Clavulanic Acid RAmpicillin RCefazolin RCefepime SCeftriaxone SCefuroxime ICephalothin RCiprofloxacin SGentamicin SImipenem SNitrofurantoin STetracycline ITobramycin S PATIENT NOT FASTINGP ERFORMED BY: [email or web address] [place] [id number] Information: SRC:UR C00293 Urinalysis, Office ([id number])Or dered By: Monet Holman on 03-16-2014 Bilirubin Ql (U) Negative Normal Comprehe nsive [facility] Work Phone: Bilirubin Ql (U) Negative Normal Comprehe ns[facility]; [facility] Work Phone: Glucose Test strip (U) [Mass/Vol] Negative Normal [facility]; [facility] Work Phone: Glucose Test strip mass conc (U) Negative Normal [facility] Work Phone: Hemoglobin Ql (U) Negative Normal Compreh ensive [facility] Work Phone: Hemoglobin Ql (U) Negative Normal Compreh ens[facility]; [facility] Work Phone: Hemoglobin Test strip Ql (U) Negative Normal [facility] Work Phone: Ketones Ql (U) Negative Normal Com[facility] Work Phone: Ketones Ql (U) Negative Normal [facility]; [facility] Work Phone: Leukocyte esterase Test strip Ql (U) Negative Normal [facility] Work Phone: Leukocyte esterase Test strip Ql (U) Negative Normal [facility]; [facility] Work Phone: Nitrite Ql (U) Negative Normal [facility] Work Phone: Nitrite Ql (U) Negative Normal [facility]; [facility] Work Phone: Nitrite Test strip Ql (U) Negative Normal [facility] Work Phone: pH (U) 5.0 [pH] Normal [facility] Work Phone: pH Test strip (U) 5.0 [pH] Normal Compre[facility] ens[facility] Work Phone: Protein Ql (U) Negative Normal [facility] Work Phone: Protein Ql (U) Negative Normal [facility]; [facility] Work Phone: Protein Test strip Ql (U) Negative Normal [facility] Work Phone: Specific gravity Relative Density (U) 1.015 1 Normal Comprehensi ve [facility] Work Phone: Urobilinogen mass/time (24H U) Normal Normal [facility] Work Phone: AFPTOrdered By: System Manag er on 03-11-2014 AFPT 2.1 ng/mL Normal 0.0-8.3 [facility] Work Phone: Comment on above: Cristofer ECLIA methodol ogyPerformed at: CB - [facility] [id number] [place], [place] [id number] Director: Zay Gomez MD, Phone: [phone] Is Patient ? N CBCDOrdered By: System Pcsso on 03-11-2014 Erythrocyte distribution width Auto Ratio (RBC) 14.2 % Normal 11.6-14.6 [facility] Work Phone: Erythrocyte distribution width Ratio (RBC) 14.2 % Normal 11.6-14.6 [facility] Work Phone: Hematocrit Auto Volume Fraction (Bld) 40.2 % Normal 37-47 [facility] Work Phone: Hematocrit Volume Fraction (Bld) 40.2 % Normal 37-47 [facility] Work Phone: Hemoglobin mass conc (Bld) 13.2 g/dL Normal 12.0-15.0 [facility] Work Phone: MCH Auto Entitic mass (RBC) 28.0 pg Normal 27.0-32.0 [facility] Work Phone: MCH Entitic mass (RBC) 28.0 pg Normal 27.0-32.0 [facility] Work Phone: MCHC Auto mass conc (RBC) 32.8 {g/gl} Normal 32-36 [facility] Work Phone: MCHC mass conc (RBC) 32.8 {g/gl} Normal 32-36 [facility] prehensive [facility] Work Phone: MCV Auto Entitic volume (RBC) 85.4 fL Normal 81-99 [facility] Work Phone: MCV Entitic volume (RBC) 85.4 fL Normal 81-99 [facility] Work Phone: Platelet mean volume Auto Entitic volume (Bld) 9.9 fL Normal 6.2-12.0 [facility] Work Phone: Platelet mean volume Entitic volume (Bld) 9.9 fL Normal 6.2-12.0 Comprehensi ve [facility] Work Phone: Platelets #/vol (Bld) 329 10*3/uL Normal 150-450 [facility] Work Phone: Platelets Auto #/vol (Bld) 329 10*3/uL Normal 150-450 [facility] Work Phone: RBC #/vol (Bld) 4.71 {M/mm3} Normal 4.2-5.4 Compreh ensive [facility] Work Phone: RBC Auto #/vol (Bld) 4.71 {M/mm3} Normal 4.2-5.4 [facility] Work Phone: WBC #/vol (Bld) 5.9 10*3/uL Normal 4.4-11.0 Comprehe nsive [facility] Work Phone: WBC Auto #/vol (Bld) 5.9 10*3/uL Normal 4.4-11.0 Com prehens[facility] Work Phone: CBCD 6.8 % Normal 0-10 [facility] Work Phone: CBCD 0.200 % Normal 0.0-0.9 [facility] Work Phone: Comment on above: IG% - Immature Granu locytes (promyelocytes, myelocytes andmetamyelocytes) > 1% indicates that a LEFT SHIFT is Present. CBCD 3.4 {X10_3/uL} Normal 2.0-7.7 Com[facility] Work Phone: CBCD 32.4 % Normal 19-41 [facility] Work Phone: CBCD 43.3 fL Normal 35.1-43.9 [facility] Work Phone: CBCD 2.0 % Normal 0-5 [facility] Work Phone: CBCD 0.7 % Normal 0-1 [facility] Work Phone: CBCD 57.9 % Normal 47-70 [facility] Work Phone: MIACREOrdered By: System Man ager on 03-11-2014 Creatinine mass conc 14.0 {mg/g_CRE} Normal [facility] Work Phone: MIACRE 157.2 mg/dL Normal [facility] Work Phone: MIACRE 22.1 mg/L Normal [facility] Work Phone: PTOrdered By: Police Pilot on 03-11-2014 INR Coag RelTime (PPP) 1.0 {INR} Normal [facility] Work Phone: Prothrombin time (PT) Coag time (PPP) 1.0 s Normal [facility] Work Phone: Prothrombin time (PT) Coag time (PPP) 12.7 s Normal 11.9-14.4 [facility] Work Phone: PT 12.7 s Normal 11.9-14.4 [facility] Work Phone: PTTOrdered By: System Manage r on 03-11-2014 aPTT Coag time (Bld) 28.5 s Normal 24.1-36.2 Comp [facility] Work Phone: CMPOrdered By: System Manage r on 03-10-2014 Albumin mass conc 3.7 g/dL Normal 3.4-5.0 Compreh [facility] Work Phone: Albumin/Globulin mass ratio 0.9 {RATIO} Normal 0.9-2.4 [facility] Work Phone: ALP enzyme act/vol 65 U/L Normal 50-136 Compre [facility] Work Phone: ALT enzyme act/vol 32 U/L Normal 12-78 [facility] Work Phone: AST enzyme act/vol 16 U/L Normal 15-37 [facility] Work Phone: Bilirubin mass conc 0.50 mg/dL Normal 0.00-1.00 Compr ensive [facility] Work Phone: Calcium mass conc 8.9 mg/dL Normal 8.5-10.1 Compreh ensive [facility] Work Phone: Chloride molar conc 104 mmol/L Normal 98-107 Compr ehensive [facility] Work Phone: CO2 molar conc 29.0 mmol/L Normal 21.0-32.0 Comprehen sive [facility] Work Phone: Creatinine mass conc 1.0 mg/dL Normal 0.6-1.0 Comp rehensive [facility] Work Phone: GFR/1.73 sq M predicted among non-blacks MDRD vol rate/area (S/P/Bld) 59 mL/min/{1.73_m2} Abnormal Comprehe nsive [facility] Work Phone: Globulin Calculated mass conc (S) 3.9 g/dL Normal 2.7-4.2 [facility] Work Phone: Globulin mass conc (S) 3.9 g/dL Normal 2.7-4.2 Co [facility] Work Phone: Glucose mass conc 97 mg/dL Normal 70-110 Compreh ensive [facility] Work Phone: Potassium molar conc 4.3 mmol/L Normal 3.5-5.1 Comp rehensive [facility] Work Phone: Protein mass conc 7.6 g/dL Normal 6.4-8.2 Compreh ensive [facility] Work Phone: Sodium molar conc 139 mmol/L Normal 136-145 Compre[facility] ens[facility] Work Phone: Urea nitrogen mass conc 16 mg/dL Normal 7-18 [facility] Work Phone: Urea nitrogen/Creatinine mass ratio 16.0 {RATIO} Normal 10-20 [facility] Work Phone: CMP 6 1 Normal 5-15 [facility] Work Phone: CMP 72 mL/min Normal [facility] Work Phone: LIPIDOrdered By: Marcelino barber on 03-10-2014 Cholesterol in HDL mass conc 52 mg/dL Normal [facility] Work Phone: Comment on above: Reference RangeHDL < 40 mg/dL Low HDL CholesterolHDL >or= 60 mg/dL High HDL Cholesterol Cholesterol in LDL mass conc 113 mg/dL Normal 0-130 [facility] Work Phone: Cholesterol mass conc 212 mg/dL Abnormal Com prehens[facility] Work Phone: Comment on above: <200 mg/dL Desirable 200-240 mg/dL Borderline>240 mg/dL High Risk Triglyceride mass conc 236 mg/dL Abnormal 0-199 [facility] Work Phone: Comment on above: Serum Triglycerides Reference IntervalNormal <150 mg/dLBorderline high 150 - 199 mg/dLHigh 200 - 499 mg/dLVery High > or = 500 mg/dL LIPID 47 mg/dL Abnormal 5-40 [facility] Work Phone: URINE JESÚS CULTURE-JOHNY COL C OUNT ([id number])Ordered By: Police Pilot on 12-08-2013 Bacteria identified Cx Nom (U) ECV Normal [facility] Work Phone: Comment on above: Escherichia coli, id entified by an automated biochemical system.Greater than 100,000 colony forming units per mL S = Susceptible; I = Intermediate; R = Resistant P = Positive; N = Negative MICS are expressed in micrograms per mL Antibiotic RSLT#1 RSLT#2 RSLT#3 RSLT#4Amoxicillin/Clavulanic Acid SAmpicillin SCefepime SCeftriaxone SCefuroxime SCephalothin SCiprofloxacin SErtapenem SGentamicin SImipenem SLevofloxacin SNitrofurantoin SPiperacillin STetracycline STobramycin STrimethoprim/Sulfa S PATIENT NOT FASTINGP ERFORMED BY: [facility] [id number] D [facility] [id number] Information: SRC: URINE Bacteria identified Cx Nom (U) Final report Normal [facility] Work Phone: Comment on above: PATIENT NOT FASTINGP ERFORMED BY: [facility] [id number] [facility] [id number] Information: SRC: URINE Urinalysis, Office ([id number])Or dered By: Mariely Delgado on 12-08-2013 Bilirubin Ql (U) Negative Normal Comprehe nsive [facility] Work Phone: Bilirubin Ql (U) Negative Normal Comprehe nsive [facility]; [facility] Work Phone: Glucose Test strip (U) [Mass/Vol] Negative Normal [facility]; [facility] Work Phone: Glucose Test strip mass conc (U) Negative Normal [facility] Work Phone: Hemoglobin Ql (U) Hemolyzed Moderate Normal [facility] Work Phone: Hemoglobin Test strip Ql (U) Hemolyzed Moderate Normal [facility] Work Phone: Ketones Ql (U) Negative Normal [facility] Work Phone: Ketones Ql (U) Negative Normal [facility]; [facility] Work Phone: Leukocyte esterase Test strip Ql (U) Large Normal [facility] Work Phone: Nitrite Ql (U) Negative Normal [facility] Work Phone: Nitrite Ql (U) Negative Normal [facility]; [facility] Work Phone: Nitrite Test strip Ql (U) Negative Normal [facility] Work Phone: pH (U) 7.5 [pH] Normal [facility] Work Phone: pH Test strip (U) 7.5 [pH] Normal Compreh ensive [facility] Work Phone: Protein Ql (U) 30 mg/dL Normal [facility] Work Phone: Protein Test strip Ql (U) 30 mg/dL Normal [facility] Work Phone: Specific gravity Relative Density (U) 1.020 1 Normal Comprehensi ve [facility] Work Phone: Urobilinogen mass/time (24H U) 2 mg/dL Normal [facility] Work Phone: HgA1C , Office ([id number])Ordere d By: Idalia Ellis on 11-09-2013 Hemoglobin A1c/Hemoglobin.total mass fraction (Bld) 5.5 % Normal 4.6 - 7.1 Comprehensiv e [facility] Work Phone: CMPOrdered By: System Manage r on 11-01-2013 Albumin mass conc 3.6 g/dL Normal 3.4-5.0 Compreh ensive [facility] Work Phone: Albumin/Globulin mass ratio 1.0 {RATIO} Normal 0.9-2.4 [facility] Work Phone: ALP enzyme act/vol 69 U/L Normal 50-136 Compre [facility] Work Phone: ALT enzyme act/vol 37 U/L Normal 12-78 Compre [facility] Work Phone: AST enzyme act/vol 27 U/L Normal 15-37 Compre [facility] Work Phone: Bilirubin mass conc 0.40 mg/dL Normal 0.00-1.00 Compr ehensive [facility] Medicine Work Phone: Calcium mass conc 8.5 mg/dL Normal 8.5-10.1 Compreh ensive [facility] Work Phone: Chloride molar conc 104 mmol/L Normal 98-107 Compr ehensive [facility] Medicine Work Phone: CO2 molar conc 29.0 mmol/L Normal 21.0-32.0 Comprehen sive [facility] Medicine Work Phone: Creatinine mass conc 1.1 mg/dL Abnormal 0.6-1.0 Comp rehensive [facility] Medicine Work Phone: GFR/1.73 sq M predicted among non-blacks MDRD vol rate/area (S/P/Bld) 53 mL/min/{1.73_m2} Abnormal Comprehe nsive Internal Medicine Work Phone: Globulin Calculated mass conc (S) 3.7 g/dL Normal 2.7-4.2 [facility] Work Phone: Globulin mass conc (S) 3.7 g/dL Normal 2.7-4.2 Co m[facility] Work Phone: Glucose mass conc 88 mg/dL Normal 70-110 Compreh ensive [facility] Work Phone: Potassium molar conc 3.9 mmol/L Normal 3.5-5.1 Comp rehensive [facility] Medicine Work Phone: Protein mass conc 7.3 g/dL Normal 6.4-8.2 Compreh ensive [facility] Work Phone: Sodium molar conc 142 mmol/L Normal 136-145 Compreh ensive [facility] Work Phone: Urea nitrogen mass conc 14 mg/dL Normal 7-18 [facility] Work Phone: Urea nitrogen/Creatinine mass ratio 12.7 {RATIO} Normal 10-20 [facility] Work Phone: CMP 64 mL/min Normal [facility] Work Phone: CMP 9 1 Normal 5-15 [facility] Work Phone: LIPIDOrdered By: Marcelino barber on 11-01-2013 Cholesterol in HDL mass conc 55 mg/dL Normal [facility] Work Phone: Comment on above: Reference RangeHDL < 40 mg/dL Low HDL CholesterolHDL >or= 60 mg/dL High HDL Cholesterol Cholesterol in LDL mass conc 123 mg/dL Normal 0-130 [facility] Work Phone: Cholesterol mass conc 215 mg/dL Abnormal Com prehensive [facility] Work Phone: Comment on above: <200 mg/dL Desirable 200-240 mg/dL Borderline>240 mg/dL High Risk Triglyceride mass conc 186 mg/dL Normal 0-199 Co m[facility] Work Phone: Comment on above: Serum Triglycerides Reference IntervalNormal <150 mg/dLBorderline high 150 - 199 mg/dLHigh 200 - 499 mg/dLVery High > or = 500 mg/dL LIPID 37 mg/dL Normal 5-40 [facility] Work Phone: URINE JESÚS CULTURE-IDENTIFICA [place] ([id number])Ordered By: Police Pilot on 08-17-2013 Bacteria identified Cx Nom (U) Klebsiella pneumoniae Normal Comprehens [facility] Work Phone: Comment on above: Greater than 100,000 colony forming units per mL PATIENT NOT FASTINGP ERFORMED BY: [facility] [id number] [facility] [id number] Information: ADD [id number] Bacteria identified Cx Nom (U) Final report Normal [facility] Work Phone: Comment on above: PATIENT NOT FASTINGP ERFORMED BY: [facility] [id number] [facility] [id number] Information: ADD [id number] Other Antibiotic [facility] prehensive Internal Medicine Work Phone: Comment on above: S = Susceptibl e; I = Intermediate; R = Resistant P = Positive; N = Negative MICS are expressed in micrograms per mL Antibiotic RSLT#1 RSLT#2 RSLT#3 RSLT#4Amoxicillin/Clavulanic Acid SAmpicillin RCefazolin SCefepime SCeftriaxone SCefuroxime SCephalothin SCiprofloxacin SESBL NErtapenem SGentamicin SImipenem SLevofloxacin SNitrofurantoin IPiperacillin RTetracycline STobramycin STrimethoprim/Sulfa S PATIENT NOT FASTINGP ERFORMED BY: [employer] [id number] [facility] [id number] Information: ADD [id number] Urinalysis, Office ([id number])Or dered By: Fiorella Whelan on 08-17-2013 Bilirubin Ql (U) Negative Normal Comprehe nsive Internal Medicine Work Phone: Bilirubin Ql (U) Negative Normal Comprehe nsive Internal Medicine; [facility] Work Phone: Glucose Test strip (U) [Mass/Vol] Negative Normal [facility]; [facility] Work Phone: Glucose Test strip mass conc (U) Negative Normal [facility] Work Phone: Hemoglobin Ql (U) Non Hemolyzed Trace Normal [facility] Work Phone: Hemoglobin Test strip Ql (U) Non Hemolyzed Trace Normal Comprehensiv e Internal Medicine Work Phone: Ketones Ql (U) Negative Normal Comprehens [facility] Work Phone: Ketones Ql (U) Negative Normal Comprehens [facility]; [facility] Work Phone: Leukocyte esterase Test strip Ql (U) Large Normal [facility] Work Phone: Nitrite Ql (U) Negative Normal Comprehens [facility] Work Phone: Nitrite Ql (U) Negative Normal Comprehens [facility]; [facility] Work Phone: Nitrite Test strip Ql (U) Negative Normal [facility] Work Phone: pH (U) 6.0 [pH] Normal [facility] Work Phone: pH Test strip (U) 6.0 [pH] Normal Compreh ensive [facility] Medicine Work Phone: Protein Ql (U) Negative Normal Comprehens [facility] Work Phone: Protein Ql (U) Negative Normal Comprehens [facility]; [facility] Work Phone: Protein Test strip Ql (U) Negative Normal [facility] Work Phone: Specific gravity Relative Density (U) 1.015 1 Normal Comprehensi ve Internal Medicine Work Phone: Urobilinogen mass/time (24H U) Normal Normal [facility] Work Phone: HgA1C , Office ([id number])Ordere d By: Idalia Ellis on 08-06-2013 Hemoglobin A1c/Hemoglobin.total mass fraction (Bld) 5.7 % Normal 4.6 - 7.1 Comprehensiv e Internal Medicine Work Phone: AFPTOrdered By: System Manag er on 07-06-2013 AFPT 3.8 ng/mL Normal 0.0-8.3 [facility] Work Phone: Comment on above: Cristofer ECLIA methodol ogyPerformed at: [address], [place] [id number] Director: Russ Elias PhD, Phone: [phone] CBCMDOrdered By: Marcelino barber on 07-06-2013 Erythrocyte distribution width Auto Ratio (RBC) 13.9 % Normal 11.6-14.6 [facility] Work Phone: Erythrocyte distribution width Ratio (RBC) 13.9 % Normal 11.6-14.6 [facility] Work Phone: Hematocrit Auto Volume Fraction (Bld) 44.3 % Normal 37-47 [facility] Work Phone: Hematocrit Volume Fraction (Bld) 44.3 % Normal 37-47 [facility] Work Phone: Hemoglobin mass conc (Bld) 14.8 g/dL Normal 12.0-15.0 [facility] Work Phone: MCH Auto Entitic mass (RBC) 28.1 pg Normal 27.0-32.0 [facility] Work Phone: MCH Entitic mass (RBC) 28.1 pg Normal 27.0-32.0 Co mprehensive [facility] Work Phone: MCHC Auto mass conc (RBC) 33.4 g/dL Normal 32-36 [facility] Work Phone: MCHC mass conc (RBC) 33.4 g/dL Normal 32-36 Comp rehensive Internal Medicine Work Phone: MCV Auto Entitic volume (RBC) 84.2 fL Normal 81-99 [facility] Work Phone: MCV Entitic volume (RBC) 84.2 fL Normal 81-99 [facility] Work Phone: Platelet mean volume Auto Entitic volume (Bld) 9.4 fL Normal 6.2-12.0 [facility] Work Phone: Platelet mean volume Entitic volume (Bld) 9.4 fL Normal 6.2-12.0 Comprehensi Internal Medicine Work Phone: Platelets #/vol (Bld) 366 10*3/uL Normal 150-450 Co m[facility] Work Phone: Platelets Auto #/vol (Bld) 366 10*3/uL Normal 150-450 [facility] Work Phone: RBC #/vol (Bld) 5.26 {M/mm3} Normal 4.2-5.4 Compreh ensive [facility] Medicine Work Phone: RBC Auto #/vol (Bld) 5.26 {M/mm3} Normal 4.2-5.4 Co m[facility] Work Phone: WBC #/vol (Bld) 7.1 {k/mm3} Normal 4.4-11.0 Comprehe nsive Internal Medicine Work Phone: WBC Auto #/vol (Bld) 7.1 {k/mm3} Normal 4.4-11.0 Com prehensive Internal Medicine Work Phone: CBCMD 42.5 fL Normal 35.1-43.9 [facility] Work Phone: CBCMD 56.5 % Normal 47-70 [facility] Work Phone: CBCMD 6.9 % Normal 0-10 [facility] Work Phone: CBCMD 1.7 % Normal 0-5 [facility] Work Phone: CBCMD 0.8 % Normal 0-1 [facility] Work Phone: CBCMD 0.10 % Normal 0.0-0.9 [facility] Work Phone: Comment on above: IG% - Immature Granu locytes (promyelocytes, myelocytes,metamyelocytes) >1.0% indicates that a LEFT SHIFT ispresent. CBCMD 4.0 3/uL Normal 2.0-7.7 [facility] Work Phone: CBCMD 34.0 % Normal 19-41 [facility] Work Phone: CHEST PA AND LATERALOrdered By: Police Pilot on 07-06-2013 CHEST PA AND LATERAL See Note Normal Comp rehensive Internal Medicine Work Phone: Comment on above: PROCEDURE: X-RAY [facility] ST REASON FOR EXAM: Female, 67 years old. Abdominal pain. TECHNIQUE: PA and lateral views of the chest. COMPARISON: None. FINDINGS: The lungs are clear and expanded. 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 There is no demonstrated pleural abnormality. Normal size heart. Normal mediastinum and es. Normal visualizedpulmonary arteries. There is atherosclerotic tortuosity of the aorticarchand descending thoracic aorta. There are diffuse degenerative changes of the visualized thoracic spine.There is prominence of the left first costochondral junction. There is no demonstrated abnormality of the visualized soft tissuestructures of the upper abdomen. IMPRESSION:No acute abnormality is seen. Signed:Stew Hill M.D.July 06, 2013 at 8:54:05 AM [id number] Signed GP/GP If you are the referring physician and would like to consult with theradiologist who provided this interpretation, please contact Rodrigo Givens at [phone]. If this radiologist is unavailable, youwill be directed to another radiologist to assist. If you are a patient with a question regarding this report, pleasecontactyour referring physician directly. Professional Interpretation Provided By: [employer], Phone , These documents contain legally protected and confidential healthinformation intended only for the use of the individual or entity namedabove. If you are not the intended recipient, you are hereby notifiedthatany disclosure, copying, distribution, or other use of these documents isstrictly prohibited. If you have received this information in error,pleasenotify the sender immediately and arrange for the return or destructionofthese documents. Dictated on 07/06/13 0854 by Lucrecia Hill MDscribed on 07/06/13 1204 by ITS IMPORTSign by Stew Hill MD on 07/06/13 1205 Sign by: Liz GARZA,Stew CMPOrdered By: System Manage r on 07-06-2013 Albumin mass conc 3.8 g/dL Normal 3.4-5.0 [facility] Work Phone: ALT enzyme act/vol 27 U/L Normal 12-78 [facility]pre hens[facility] Work Phone: AST enzyme act/vol 20 U/L Normal 15-37 [facility]pre [facility] Work Phone: Calcium mass conc 8.6 mg/dL Normal 8.5-10.1 [facility] Work Phone: Chloride molar conc 105 mmol/L Normal 98-107 Compr ehens[facility] Work Phone: CO2 molar conc 26.0 mmol/L Normal 21.0-32.0 [facility]prehen s[facility] Work Phone: Creatinine mass conc 1.1 mg/dL Abnormal 0.6-1.0 Comp rehens[facility] Work Phone: GFR/1.73 sq M predicted among non-blacks MDRD vol rate/area (S/P/Bld) 53 mL/min/{1.73_m2} Abnormal [facility]prehe [facility] Work Phone: Globulin Calculated mass conc (S) 3.8 g/dL Normal 2.7-4.2 [facility] Work Phone: Globulin mass conc (S) 3.8 g/dL Normal 2.7-4.2 [facility] Work Phone: Glucose mass conc 111 mg/dL Abnormal 70-110 [facility] Work Phone: Comment on above: Fasting Glucose resu lt from 110 to <126 mg/dLsuggests IMPAIRED HOMEOSTASIS per A.D.A. criteria. Potassium molar conc 4.0 mmol/L Normal 3.5-5.1 [facility] rehens[facility] Work Phone: Protein mass conc 7.6 g/dL Normal 6.4-8.2 [facility] Work Phone: Sodium molar conc 140 mmol/L Normal 136-145 [facility] Work Phone: Urea nitrogen mass conc 14 mg/dL Normal 7-18 [facility] Work Phone: CMP 12.7 {RATIO} Normal 10-20 [facility] e [facility] Work Phone: CMP 64 mL/min Normal [facility] Work Phone: CMP 0.40 mg/dL Normal 0.00-1.00 [facility] Work Phone: CMP 52 U/L Normal 50-136 [facility] Work Phone: CMP 9 1 Normal 5-15 [facility] Work Phone: CMP 1.0 {RATIO} Normal 0.9-2.4 [facility] Work Phone: LIPIDOrdered By: Marcelino barber on 07-06-2013 Cholesterol in HDL mass conc 58 mg/dL Normal [facility] Work Phone: Comment on above: Reference RangeHDL < 40 mg/dL Low HDL CholesterolHDL >or= 60 mg/dL High HDL Cholesterol Cholesterol in LDL mass conc 60 mg/dL Normal 0-130 [facility] Work Phone: Cholesterol mass conc 158 mg/dL Normal Com prehensive [facility] Work Phone: Comment on above: <200 mg/dL Desirable 200-240 mg/dL Borderline>240 mg/dL High Risk Triglyceride mass conc 199 mg/dL Normal [facility] Work Phone: Comment on above: Serum Triglycerides Reference IntervalNormal <150 mg/dLBorderline high 150 - 199 mg/dLHigh 200 - 499 mg/dLVery High > or = 500 mg/dL LIPID 40 mg/dL Normal 5-40 [facility] Work Phone: PTOrdered By: Police Pilot on 07-06-2013 INR Coag RelTime (PPP) 1.0 {INR} Normal [facility] Work Phone: Prothrombin time (PT) Coag time (PPP) 1.0 s Normal [facility] Work Phone: Prothrombin time (PT) Coag time (PPP) 12.9 s Normal 11.9-14.4 [facility] Work Phone: PT 12.9 s Normal 11.9-14.4 [facility] Work Phone: PTTOrdered By: System Manage r on 07-06-2013 aPTT Coag time (Bld) 32.9 s Normal 24.1-36.2 Comp rehensive [facility] Work Phone: LQDPAP [id number] By: S ystem Bookkeeping Service Sales Agent on 01-27-2012 LQDPAP [id number] Comment Normal Comprehen [facility] Work Phone: Comment on above: The Pap smear is a s creening test designed to aid in thedetection of premalignant and malignant conditions of theuterine cervix. It is not a diagnostic procedure andshould not be used as the sole means of detecting cervicalcancer. Both false-positive and false-negative reports dooccur. .The HPV DNA reflex criteria were not met with this specimenresult therefore, no HPV testing was performed. .Performed at: [address] [id number] Director: Tracey Weeks MD, Phone: [phone] NEGATIVE FOR INTRAEP ITHELIAL LESION AND MALIGNANCY.THIS SPECIMEN WAS RESCREENED PART OF OUR WOOD FENCE INSTALLER PROGRAM.Satisfactory for evaluation. No endocervical component is identified.Maya Cordova, New Vehicle Sales Consultant (ASCP)Christine Greenfield, Supervisory New Vehicle Sales Consultant (ASCP)This liquid based ThinPrep(R) pap test was screened withthe use of an image guided system. NO INFORMATION GIVEN ON REQ LQDPAP [id number] . Normal Comprehen [facility] Work Phone: Comment on above: NO INFORMATION GIVEN ON REQ Urinalysis, Office ([id number])Or dered By: Yajaira Mandel on 01-27-2012 Bilirubin Ql (U) Negative Normal Compre[facility] Work Phone: Bilirubin Ql (U) Negative Normal Com[facility]; [facility] Work Phone: Glucose Test strip (U) [Mass/Vol] Negative Normal [facility]; [facility] Work Phone: Glucose Test strip mass conc (U) Negative Normal [facility] Work Phone: Hemoglobin Ql (U) Non Hemolyzed Trace Normal [facility] Work Phone: Hemoglobin Test strip Ql (U) Non Hemolyzed Trace Normal Comprehens[facility] e [facility] Work Phone: Ketones Ql (U) Negative Normal Com[facility] Work Phone: Ketones Ql (U) Negative Normal [facility]; [facility] Work Phone: Leukocyte esterase Test strip Ql (U) Moderate Normal [facility] Work Phone: Nitrite Ql (U) Negative Normal [facility] Work Phone: Nitrite Ql (U) Negative Normal [facility]; [facility] Work Phone: Nitrite Test strip Ql (U) Negative Normal [facility] Work Phone: pH (U) 6.0 [pH] Normal [facility] Work Phone: pH Test strip (U) 6.0 [pH] Normal Compreh ens[facility] Work Phone: Protein Ql (U) Negative Normal [facility] Work Phone: Protein Ql (U) Negative Normal [facility]; [facility] Work Phone: Protein Test strip Ql (U) Negative Normal [facility] Work Phone: Specific gravity Relative Density (U) 1.010 1 Normal Comprehensi ve [facility] Work Phone: Urobilinogen mass/time (24H U) Normal Normal [facility] Work Phone: Culture, urine Bacteria identified Cx Nom (U) Klebsiella pneumoniae sp pneum [facility] Work Phone: Vital Signs Date Time Vital Sign Value Performing Clinician Facility 09-29-2025 08:15-0400 Body temperature 98.6 [degF] DR VERONICA CARLISLE MD [facility] 09-29-2025 08:15-0400 Diastolic Blood Pressure Non-Invasive 59 mm[Hg] DR VERONICA CARLISLE MD [facility] 09-29-2025 08:15-0400 Heart rate 82 /min DR VERONICA CARLISLE MD [facility] 09-29-2025 08:15-0400 Reason For Taking VItal Signs DR VERONICA CARLISLE MD [facility] 09-29-2025 08:15-0400 Respiratory rate 14 /min DR VERONICA CARLISLE MD [facility] 09-29-2025 08:15-0400 Systolic Blood Pressure Non-Invasive 148 mm[Hg] DR VERONICA CARLISLE MD [facility] 09-29-2025 03:00-0400 Body temperature 98.06 [degF] DR VERONICA CARLISLE MD [facility] 09-29-2025 03:00-0400 Diastolic Blood Pressure Non-Invasive 70 mm[Hg] DR VERONICA CARLISLE MD [facility] 09-29-2025 03:00-0400 Heart rate 77 /min DR VERONICA CARLISLE MD [facility] 09-29-2025 03:00-0400 Respiratory rate 18 /min DR VERONICA CARLISLE MD [facility] 09-29-2025 03:00-0400 Systolic Blood Pressure Non-Invasive 170 mm[Hg] DR VERONICA CARLISLE MD [facility] 09-28-2025 19:10-0400 Body temperature 97.88 [degF] DR VERONICA CARLISLE MD [facility] 09-28-2025 19:10-0400 Diastolic Blood Pressure Non-Invasive 69 mm[Hg] DR VERONICA CARLISLE MD [facility] 09-28-2025 19:10-0400 Heart rate 85 /min DR VERONICA CARLISEL MD [facility] 09-28-2025 19:10-0400 Reason For Taking VItal Signs DR VERONICA CARLISLE MD [facility] 09-28-2025 19:10-0400 Respiratory rate 18 /min DR VERONICA CARLISLE MD [facility] 09-28-2025 19:10-0400 Systolic Blood Pressure Non-Invasive 143 mm[Hg] DR VERONICA CARLISLE MD [facility] 09-28-2025 15:37-0400 Heart rate 76 /min DR VERONICA CARLISLE MD [facility] 09-28-2025 07:20-0400 Heart rate 62 /min DR VERONICA CARLISLE MD [facility] 09-28-2025 04:35-0400 Heart rate 71 /min DR VERONICA CARLISLE MD [facility] 09-28-2025 00:12-0400 Heart rate 77 /min DR VERONICA CARLISLE MD [facility] 09-27-2025 12:41-0400 Body height [address] VERONICA CARLISLE MD [facility] 09-27-2025 12:41-0400 Body weight 32.17 kg/m2 DR VERONICA CARLISLE MD [facility] 09-27-2025 12:41-0400 Body weight 77.[address] VERONICA CARLISLE MD [facility] 09-27-2025 12:15-0400 Body temperature 96.8 [degF] DR VERONICA CARLISLE MD [facility] 09-27-2025 11:32-0400 Body temperature 97.16 [degF] DR VERONICA CARLISLE MD [facility] 09-27-2025 11:20-0400 Respiratory Rate - Anes 10 br/min DR VERONICA CARLISLE MD [facility] 09-27-2025 11:15-0400 Body temperature 96.8 [degF] DR VERONICA CARLISLE MD [facility] 09-27-2025 11:15-0400 Respiratory Rate - Anes 10 br/min DR VERONICA CARLISLE MD [facility] 09-27-2025 11:10-0400 Respiratory Rate - Anes 11 br/min DR VERONICA CARLISLE MD [facility] 09-27-2025 10:45-0400 Body temperature 96.8 [degF] DR VERONICA CARLISLE MD [facility] 09-27-2025 07:43-0400 Body height [address] VERONICA CARLISLE MD [facility] 09-27-2025 07:43-0400 Body temperature 97.88 [degF] DR VERONICA CARLISLE MD [facility] 09-27-2025 07:43-0400 Body weight 77.[address] VERONICA CARLISLE MD [facility] 07-26-2025 10:30-0400 Body height 154.94 cm Rayshawn Maurice HARNESS INSTALLER-C Work Phone: [facility] 07-26-2025 10:30-0400 Body mass index (BMI) [Ratio] 33 kg/m2 Rayshawn Maurice HARNESS INSTALLER-C Work Phone: [facility] 07-26-2025 10:30-0400 Body weight 79.37 kg Rayshawn Maurice HARNESS INSTALLER-C Work Phone: [facility] 07-26-2025 10:30-0400 Diastolic blood pressure 74 mm[Hg] Rayshawn Maurice HARNESS INSTALLER-C Work Phone: [facility] 07-26-2025 10:30-0400 Heart rate 70 /min Rayshawn Maurice HARNESS INSTALLER-C Work Phone: [facility] 07-26-2025 10:30-0400 Systolic blood pressure 150 mm[Hg] Rayshawn Maurice HARNESS INSTALLER-C Work Phone: [facility] 07-21-2025 13:10-0400 Diastolic blood pressure 70 mm[Hg] Rayshawn Maurice HARNESS INSTALLER-C Work Phone: [facility] 07-21-2025 13:10-0400 Heart rate 70 /min Rayshawn Maurice HARNESS INSTALLER-C Work Phone: [facility] 07-21-2025 13:10-0400 Systolic blood pressure 149 mm[Hg] Rayshawn Maurice HARNESS INSTALLER-C Work Phone: [facility] 07-21-2025 11:15-0400 Body height 154.94 cm Rayshawn Maurice HARNESS INSTALLER-C Work Phone: [facility] 07-21-2025 11:15-0400 Body mass index (BMI) [Ratio] 33 kg/m2 Rayshawn Maurice HARNESS INSTALLER-C Work Phone: [facility] 07-21-2025 11:15-0400 Body temperature 98.4 [degF] Rayshawn Maurice HARNESS INSTALLER-C Work Phone: [facility] 07-21-2025 11:15-0400 Body weight 79.37 kg Rayshawn Maurice HARNESS INSTALLER-C Work Phone: [facility] 07-21-2025 11:15-0400 Diastolic blood pressure 78 mm[Hg] Rayshawn Maurice HARNESS INSTALLER-C Work Phone: [facility] 07-21-2025 11:15-0400 Heart rate 73 /min Rayshawn Maurice HARNESS INSTALLER-C Work Phone: [facility] 07-21-2025 11:15-0400 Respiratory rate 18 /min Rayshawn Maurice HARNESS INSTALLER-C Work Phone: [facility] 07-21-2025 11:15-0400 SaO2% (BldA) [Mass fraction] 96 % Rayshawn Maurice HARNESS INSTALLER-C Work Phone: [facility] 07-21-2025 11:15-0400 Systolic blood pressure 136 mm[Hg] Rayshawn Guzmanam HARNESS INSTALLER-C Work Phone: [facility] 07-21-2025 10:44-0400 Body mass index (BMI) [Ratio] 32.5 kg/m2 Rayshawn Maurice HARNESS INSTALLER-C Work Phone: [facility] 07-05-2025 10:17-0400 Body height 154.94 cm Rayshawn Maurice HARNESS INSTALLER-C Work Phone: [facility] 07-05-2025 10:11-0400 Body mass index (BMI) [Ratio] 32.9 kg/m2 Rayshawn Maurice HARNESS INSTALLER-C Work Phone: [facility] 07-05-2025 10:11-0400 Body weight 79.03 kg Rayshawn Maurice HARNESS INSTALLER-C Work Phone: [facility] 07-05-2025 10:11-0400 Diastolic blood pressure 82 mm[Hg] Rayshawn Guzmanam HARNESS INSTALLER-C Work Phone: [facility] 07-05-2025 10:11-0400 Systolic blood pressure 140 mm[Hg] Rayshawn Guzmanam HARNESS INSTALLER-C Work Phone: [facility] 05-26-2025 10:04-0400 Body height 154.94 cm Rayshawn Guzmanam HARNESS INSTALLER-C Work Phone: [facility] 05-26-2025 10:04-0400 Body mass index (BMI) [Ratio] 32.8 kg/m2 Rayshawn Maurice HARNESS INSTALLER-C Work Phone: [facility] 05-26-2025 10:04-0400 Body temperature 97.7 [degF] Rayshawn Maurice HARNESS INSTALLER-C Work Phone: [facility] 05-26-2025 10:04-0400 Body weight 78.69 kg Rayshawn Maurice HARNESS INSTALLER-C Work Phone: [facility] 05-26-2025 10:04-0400 Diastolic blood pressure 74 mm[Hg] Rayshawn Maurice HARNESS INSTALLER-C Work Phone: [facility] 05-26-2025 10:04-0400 Heart rate 66 /min Rayshawn Maurice HARNESS INSTALLER-C Work Phone: [facility] 05-26-2025 10:04-0400 Respiratory rate 18 /min Rayshawn Guzmanam HARNESS INSTALLER-C Work Phone: [facility] 05-26-2025 10:04-0400 SaO2% (BldA) [Mass fraction] 97 % Rayshawn Maurice HARNESS INSTALLER-C Work Phone: [facility] 05-26-2025 10:04-0400 Systolic blood pressure 141 mm[Hg] Rayshawn Maurice HARNESS INSTALLER-C Work Phone: [facility] 04-23-2025 06:16-0400 Body temperature 98 [degF] Rayshawn Maurice HARNESS INSTALLER-C Work Phone: [facility] 04-23-2025 06:16-0400 Diastolic blood pressure 80 mm[Hg] Rayshawn Guzmanam HARNESS INSTALLER-C Work Phone: [facility] 04-23-2025 06:16-0400 Heart rate 71 /min Rayshawn Maurice HARNESS INSTALLER-C Work Phone: [facility] 04-23-2025 06:16-0400 Respiratory rate 12 /min Rayshawn Guzmanam HARNESS INSTALLER-C Work Phone: [facility] 04-23-2025 06:16-0400 SaO2% (BldA) [Mass fraction] 95 % Rayshawn Maurice HARNESS INSTALLER-C Work Phone: [facility] 04-23-2025 06:16-0400 Systolic blood pressure 175 mm[Hg] Rayshawn Maurice HARNESS INSTALLER-C Work Phone: [facility] 04-23-2025 04:21-0400 Body height 154.94 cm Rayshawn Guzmanam HARNESS INSTALLER-C Work Phone: [facility] 04-23-2025 04:21-0400 Body mass index (BMI) [Ratio] 34.2 kg/m2 Rayshawn Maurice HARNESS INSTALLER-C Work Phone: [facility] 04-23-2025 04:21-0400 Body weight 82.3 kg Rayshawn Maurice HARNESS INSTALLER-C Work Phone: [facility] 04-21-2025 10:06-0400 Body mass index (BMI) [Ratio] 33.3 kg/m2 Rayshawn Maurice HARNESS INSTALLER-C Work Phone: [facility] 04-21-2025 10:06-0400 Body temperature 98.3 [degF] Rayshawn Maurice HARNESS INSTALLER-C Work Phone: [facility] 04-21-2025 10:06-0400 Body weight 79.91 kg Rayshawn Maurice HARNESS INSTALLER-C Work Phone: [facility] 04-21-2025 10:06-0400 Diastolic blood pressure 73 mm[Hg] Rayshawn Maurice HARNESS INSTALLER-C Work Phone: [facility] 04-21-2025 10:06-0400 Heart rate 69 /min Rayshawn Maurice HARNESS INSTALLER-C Work Phone: [facility] 04-21-2025 10:06-0400 Respiratory rate 16 /min Rayshawn Maurice HARNESS INSTALLER-C Work Phone: [facility] 04-21-2025 10:06-0400 SaO2% (BldA) [Mass fraction] 99 % Rayshawn Maurice HARNESS INSTALLER-C Work Phone: [facility] 04-21-2025 10:06-0400 Systolic blood pressure 137 mm[Hg] Rayshawn Guzmanam HARNESS INSTALLER-C Work Phone: [facility] 04-20-2025 10:06-0400 Body height 154.94 cm Rayshawn Maurice HARNESS INSTALLER-C Work Phone: [facility] 04-20-2025 10:06-0400 Body mass index (BMI) [Ratio] 33.3 kg/m2 Rayshawn Maurice HARNESS INSTALLER-C Work Phone: [facility] 04-20-2025 10:06-0400 Body temperature 97.3 [degF] Rayshawn Guzmanam HARNESS INSTALLER-C Work Phone: [facility] 04-20-2025 10:06-0400 Body weight 79.91 kg Rayshawn Maurice HARNESS INSTALLER-C Work Phone: [facility] 04-20-2025 10:06-0400 Diastolic blood pressure 82 mm[Hg] Rayshawn Guzmanam HARNESS INSTALLER-C Work Phone: [facility] 04-20-2025 10:06-0400 Heart rate 69 /min Rayshawn Guzmanam HARNESS INSTALLER-C Work Phone: [facility] 04-20-2025 10:06-0400 Respiratory rate 18 /min Rayshawn Guzmanam HARNESS INSTALLER-C Work Phone: [facility] 04-20-2025 10:06-0400 SaO2% (BldA) [Mass fraction] 99 % Rayshawn Guzmanam HARNESS INSTALLER-C Work Phone: [facility] 04-20-2025 10:06-0400 Systolic blood pressure 134 mm[Hg] Rayshawn Chaudhary HARNESS INSTALLER-C Work Phone: [facility] 04-11-2025 06:03-0400 Heart rate 78 /min Rayshawn Chaudhary HARNESS INSTALLER-C Work Phone: [facility] 04-11-2025 06:03-0400 Respiratory rate 16 /min Rayshawn Chaudhary HARNESS INSTALLER-C Work Phone: [facility] 04-11-2025 06:03-0400 SaO2% (BldA) [Mass fraction] 97 % Rayshawn Chaudhary HARNESS INSTALLER-C Work Phone: [facility] 04-11-2025 04:42-0400 Body temperature 98.1 [degF] Rayshawn Guzmanam HARNESS INSTALLER-C Work Phone: [facility] 04-11-2025 04:42-0400 Diastolic blood pressure 64 mm[Hg] Rayshawn Guzmanam HARNESS INSTALLER-C Work Phone: [facility] 04-11-2025 04:42-0400 Systolic blood pressure 160 mm[Hg] Rayshawn Guzmanam HARNESS INSTALLER-C Work Phone: [facility] 04-11-2025 04:04-0400 Body height 154.94 cm Rayshawn Chaudhary HARNESS INSTALLER-C Work Phone: [facility] 04-11-2025 04:04-0400 Body mass index (BMI) [Ratio] 34.2 kg/m2 Rayshawn Chaudhary HARNESS INSTALLER-C Work Phone: [facility] 04-11-2025 04:04-0400 Body weight 82.2 kg Rayshawn Chaudhary HARNESS INSTALLER-C Work Phone: [facility] 04-07-2025 13:00-0400 Body temperature 98.7 [degF] Rayshawn Guzmanam HARNESS INSTALLER-C Work Phone: [facility] 04-07-2025 13:00-0400 Diastolic blood pressure 88 mm[Hg] Rayshawn Maurice HARNESS INSTALLER-C Work Phone: [facility] 04-07-2025 13:00-0400 Heart rate 78 /min Rayshawn Maurice HARNESS INSTALLER-C Work Phone: [facility] 04-07-2025 13:00-0400 Respiratory rate 16 /min Rayshawn Maurice HARNESS INSTALLER-C Work Phone: [facility] 04-07-2025 13:00-0400 SaO2% (BldA) [Mass fraction] 99 % Rayshawn Maurice HARNESS INSTALLER-C Work Phone: [facility] 04-07-2025 13:00-0400 Systolic blood pressure 171 mm[Hg] Rayshawn Maurice HARNESS INSTALLER-C Work Phone: [facility] 04-07-2025 09:46-0400 Body height 154.94 cm Rayshawn Maurice HARNESS INSTALLER-C Work Phone: [facility] 04-07-2025 09:46-0400 Body mass index (BMI) [Ratio] 33.8 kg/m2 Rayshawn Maurice HARNESS INSTALLER-C Work Phone: [facility] 04-07-2025 09:46-0400 Body weight 81.2 kg Rayshawn Maurice HARNESS INSTALLER-C Work Phone: [facility] 04-04-2025 17:00-0400 Body temperature 98.7 [degF] Rayshawn Maurice HARNESS INSTALLER-C Work Phone: [facility] 04-04-2025 17:00-0400 Diastolic blood pressure 78 mm[Hg] Rayshawn Maurice HARNESS INSTALLER-C Work Phone: [facility] 04-04-2025 17:00-0400 Heart rate 78 /min Rayshawn Maurice HARNESS INSTALLER-C Work Phone: [facility] 04-04-2025 17:00-0400 Respiratory rate 14 /min Rayshawn Maurice HARNESS INSTALLER-C Work Phone: [facility] 04-04-2025 17:00-0400 SaO2% (BldA) [Mass fraction] 99 % Rayshawn Maurice HARNESS INSTALLER-C Work Phone: [facility] 04-04-2025 17:00-0400 Systolic blood pressure 146 mm[Hg] Rayshawn Maurice HARNESS INSTALLER-C Work Phone: [facility] 04-04-2025 12:29-0400 Body mass index (BMI) [Ratio] 33.6 kg/m2 Rayshawn Maurice HARNESS INSTALLER-C Work Phone: [facility] 04-04-2025 12:29-0400 Body weight 80.8 kg Rayshawn Maurice HARNESS INSTALLER-C Work Phone: [facility] 04-04-2025 10:06-0400 Body mass index (BMI) [Ratio] 33.5 kg/m2 Rayshawn Maurice HARNESS INSTALLER-C Work Phone: [facility] 04-04-2025 10:06-0400 Body weight 80.51 kg Rayshawn Maurice HARNESS INSTALLER-C Work Phone: [facility] 04-04-2025 10:06-0400 Diastolic blood pressure 92 mm[Hg] Rayshawn Maurice HARNESS INSTALLER-C Work Phone: [facility] 04-04-2025 10:06-0400 Systolic blood pressure 144 mm[Hg] Rayshawn Maurice HARNESS INSTALLER-C Work Phone: [facility] 03-25-2025 10:37-0400 Body mass index (BMI) [Ratio] 33.6 kg/m2 Rayshawn Maurice HARNESS INSTALLER-C Work Phone: [facility] 03-25-2025 10:37-0400 Body temperature 96.7 [degF] Rayshawn Maurice HARNESS INSTALLER-C Work Phone: [facility] 03-25-2025 10:37-0400 Body weight 80.79 kg Rayshawn Maurice HARNESS INSTALLER-C Work Phone: [facility] 03-25-2025 10:37-0400 Diastolic blood pressure 87 mm[Hg] Rayshawn Maurice HARNESS INSTALLER-C Work Phone: [facility] 03-25-2025 10:37-0400 Heart rate 69 /min Rayshawn Maurice HARNESS INSTALLER-C Work Phone: [facility] 03-25-2025 10:37-0400 Respiratory rate 16 /min Aryshawn Maurice HARNESS INSTALLER-C Work Phone: [facility] 03-25-2025 10:37-0400 SaO2% (BldA) [Mass fraction] 96 % Rayshawn Maurice HARNESS INSTALLER-C Work Phone: [facility] 03-25-2025 10:37-0400 Systolic blood pressure 166 mm[Hg] Rayshawn Maurice HARNESS INSTALLER-C Work Phone: [facility] 03-16-2025 09:33-0400 Body mass index (BMI) [Ratio] 33.5 kg/m2 Rayshawn Maurice [employer]ARNESS INSTALLER-C Work Phone: [facility] 03-16-2025 09:33-0400 Body temperature 98.4 [degF] Rayshawn Maurice HARNESS INSTALLER-C Work Phone: [facility] 03-16-2025 09:33-0400 Body weight 80.39 kg Rayshawn Maurice HARNESS INSTALLER-C Work Phone: [facility] 03-16-2025 09:33-0400 Diastolic blood pressure 84 mm[Hg] Rayshawn Maurice HARNESS INSTALLER-C Work Phone: [facility] 03-16-2025 09:33-0400 Heart rate 74 /min Rayshawn Maurice HARNESS INSTALLER-C Work Phone: [facility] 03-16-2025 09:33-0400 Respiratory rate 16 /min Rayshawn Maurice HARNESS INSTALLER-C Work Phone: [facility] 03-16-2025 09:33-0400 SaO2% (BldA) [Mass fraction] 97 % Rayshawn Maurice HARNESS INSTALLER-C Work Phone: [facility] 03-16-2025 09:33-0400 Systolic blood pressure 142 mm[Hg] Rayshawn Maurice HARNESS INSTALLER-C Work Phone: [facility] 02-22-2025 14:45-0400 Body temperature 97.2 [degF] Rayshawn Maruice HARNESS INSTALLER-C Work Phone: [facility] 02-22-2025 14:45-0400 Diastolic blood pressure 79 mm[Hg] Rayshawn Maurice HARNESS INSTALLER-C Work Phone: [facility] 02-22-2025 14:45-0400 Heart rate 80 /min Rayshawn Guzmanam HARNESS INSTALLER-C Work Phone: [facility] 02-22-2025 14:45-0400 Respiratory rate 16 /min Rayshawn Guzmanam HARNESS INSTALLER-C Work Phone: [facility] 02-22-2025 14:45-0400 SaO2% (BldA) [Mass fraction] 96 % Rayshawn Maurice HARNESS INSTALLER-C Work Phone: [facility] 02-22-2025 14:45-0400 Systolic blood pressure 152 mm[Hg] Rayshawn Maurice HARNESS INSTALLER-C Work Phone: [facility] 02-22-2025 10:45-0400 Inhaled oxygen flow rate 2 L/min Rayshawn Guzmanam HARNESS INSTALLER-C Work Phone: [facility] 02-22-2025 06:27-0400 Body height 154.94 cm Rayshawn Guzmanam HARNESS INSTALLER-C Work Phone: [facility] 02-22-2025 06:27-0400 Body mass index (BMI) [Ratio] 33.3 kg/m2 Rayshawn Maurice HARNESS INSTALLER-C Work Phone: [facility] 02-22-2025 06:27-0400 Body weight 80 kg Rayshawn Maurice HARNESS INSTALLER-C Work Phone: [facility] 02-11-2025 12:56-0400 Diastolic blood pressure 96 mm[Hg] Rayshawn Guzmanam HARNESS INSTALLER-C Work Phone: [facility] 02-11-2025 12:56-0400 Heart rate 76 /min Rayshawn Maurice HARNESS INSTALLER-C Work Phone: [facility] 02-11-2025 12:56-0400 Respiratory rate 17 /min Rayshawn Chaudhary HARNESS INSTALLER-C Work Phone: [facility] 02-11-2025 12:56-0400 SaO2% (BldA) [Mass fraction] 97 % Rayshawn Guzmanam HARNESS INSTALLER-C Work Phone: [facility] 02-11-2025 12:56-0400 Systolic blood pressure 160 mm[Hg] Rayshawn Guzmanam HARNESS INSTALLER-C Work Phone: [facility] 01-28-2025 10:36-0500 Body temperature 96.8 [degF] Rayshawn Guzmanam HARNESS INSTALLER-C Work Phone: [facility] 01-28-2025 10:36-0500 Diastolic blood pressure 101 mm[Hg] Rayshawn Guzmanam HARNESS INSTALLER-C Work Phone: [facility] 01-28-2025 10:36-0500 Heart rate 82 /min Rayshawn Guzmanam HARNESS INSTALLER-C Work Phone: [facility] 01-28-2025 10:36-0500 Respiratory rate 16 /min Rayshawn Guzmanam HARNESS INSTALLER-C Work Phone: [facility] 01-28-2025 10:36-0500 SaO2% (BldA) [Mass fraction] 99 % Rayshawn Guzmanam HARNESS INSTALLER-C Work Phone: [facility] 01-28-2025 10:36-0500 Systolic blood pressure 164 mm[Hg] Rayshawn Guzmanam HARNESS INSTALLER-C Work Phone: [facility] 01-28-2025 09:57-0500 Inhaled oxygen flow rate 6 L/min Rayshawn Guzmanam HARNESS INSTALLER-C Work Phone: [facility] 01-28-2025 07:00-0500 Body mass index (BMI) [Ratio] 33.8 kg/m2 Rayshawn Guzmanam HARNESS INSTALLER-C Work Phone: [facility] 01-28-2025 07:00-0500 Body weight 81.2 kg Rayshawn Guzmanam HARNESS INSTALLER-C Work Phone: [facility] 01-18-2025 08:43-0500 Body mass index (BMI) [Ratio] 34 kg/m2 Rayshawn Maurice HARNESS INSTALLER-C Work Phone: [facility] 01-18-2025 08:43-0500 Body weight 81.64 kg Rayshawn Guzmanam HARNESS INSTALLER-C Work Phone: [facility] 01-18-2025 08:43-0500 Diastolic blood pressure 87 mm[Hg] Rayshawn Guzmanam HARNESS INSTALLER-C Work Phone: [facility] 01-18-2025 08:43-0500 Heart rate 73 /min Rayshawn Guzmanam HARNESS INSTALLER-C Work Phone: [facility] 01-18-2025 08:43-0500 Respiratory rate 17 /min Rayshawn Guzmanam HARNESS INSTALLER-C Work Phone: [facility] 01-18-2025 08:43-0500 SaO2% (BldA) [Mass fraction] 98 % Rayshawn Guzmanam HARNESS INSTALLER-C Work Phone: [facility] 01-18-2025 08:43-0500 Systolic blood pressure 172 mm[Hg] Rayshawn Guzmanam HARNESS INSTALLER-C Work Phone: [facility] 01-03-2025 10:17-0500 Body mass index (BMI) [Ratio] 34.2 kg/m2 Rayshawn Guzmanam HARNESS INSTALLER-C Work Phone: [facility] 01-03-2025 10:17-0500 Body weight 82.1 kg Rayshawn Guzmanam HARNESS INSTALLER-C Work Phone: [facility] 01-03-2025 10:17-0500 Diastolic blood pressure 84 mm[Hg] Rayshawn Guzmanam HARNESS INSTALLER-C Work Phone: [facility] 01-03-2025 10:17-0500 Systolic blood pressure 128 mm[Hg] Rayshawn Guzmanam HARNESS INSTALLER-C Work Phone: [facility] 01-29-2024 09:04-0500 Body height 154.94 cm HARNESS INSTALLER-C Rayshawn Maurice Work Phone: [facility] 01-27-2024 10:20-0500 Body mass index (BMI) [Ratio] 33.8 kg/m2 HARNESS INSTALLER-C Rayshawn Maurice Work Phone: [facility] 01-27-2024 10:20-0500 Body weight 81.24 kg HARNESS INSTALLER-C Rayshawn Maurice Work Phone: [facility] 01-27-2024 10:20-0500 Diastolic blood pressure 82 mm[Hg] HARNESS INSTALLER-C Rayshawn Maurice Work Phone: [facility] 01-27-2024 10:20-0500 Systolic blood pressure 130 mm[Hg] HARNESS INSTALLER-C Rayshawn Maurice Work Phone: [facility] 10-20-2023 08:56-0500 Body mass index (BMI) [Ratio] 34 kg/m2 HARNESS INSTALLER-C Rayshawn Maurice Work Phone: [facility] 10-20-2023 08:56-0500 Body weight 81.64 kg HARNESS INSTALLER-C Rayshawn Maurice Work Phone: [facility] 10-20-2023 08:56-0500 Diastolic blood pressure 82 mm[Hg] HARNESS INSTALLER-C Rayshawn Maurice Work Phone: [facility] 10-20-2023 08:56-0500 Systolic blood pressure 126 mm[Hg] HARNESS INSTALLER-C Rayshawn Maurice Work Phone: [facility] 10-03-2023 09:38-0400 Body height 156.21 cm [email or web address] Work Phone: 10-03-2023 09:38-0400 Body mass index (BMI) [Ratio] 32.17 kg/m2 [facility] Work Phone: 10-03-2023 09:38-0400 Body surface area Derived from formula 1.79 m2 Fiorella Whelan [facility] Work Phone: 10-03-2023 09:38-0400 Body temperature 97.5 [degF] Fiorella Whelan [facility] Work Phone: 10-03-2023 09:38-0400 Body weight 78.5 kg Fiorella Whelan [facility] Work Phone: 10-03-2023 09:38-0400 Diastolic blood pressure 72 mm[Hg] Fiorella Whelan [facility] Work Phone: 10-03-2023 09:38-0400 Heart rate 73 /min Fiorella Whelan [facility] Work Phone: 10-03-2023 09:38-0400 Respiratory rate 16 /min Fiorella Whelan [facility] Work Phone: 10-03-2023 09:38-0400 SaO2% (BldA) [Mass fraction] 97 % [facility] Work Phone: 10-03-2023 09:38-0400 Systolic blood pressure 120 mm[Hg] Fiorella Whelan [facility] Work Phone: 07-21-2023 12:58-0400 Body height 154.94 cm HARNESS INSTALLER-Melissa Chaudhary Work Phone: [facility] 07-21-2023 12:53-0400 Body mass index (BMI) [Ratio] 33 kg/m2 HARNESS INSTALLERCandida Chaudhary Work Phone: [facility] 07-21-2023 12:53-0400 Body weight 79.43 kg NONA Chaudhary Work Phone: [facility] 07-21-2023 12:53-0400 Diastolic blood pressure 84 mm[Hg] NONA Chaudhary Work Phone: [facility] 07-21-2023 12:53-0400 Systolic blood pressure 134 mm[Hg] HARNESS INSTALLER-C Rayshawn Maurice Work Phone: [facility] 05-21-2023 12:50-0400 Diastolic blood pressure 67 mm[Hg] HARNESS INSTALLER-C Rayshawn Maurice Work Phone: [facility] 05-21-2023 12:50-0400 Heart rate 68 /min HARNESS INSTALLER-C Rayshawn Maurice Work Phone: [facility] 05-21-2023 12:50-0400 Respiratory rate 16 /min HARNESS INSTALLER-C Rayshawn Maurice Work Phone: [facility] 05-21-2023 12:50-0400 SaO2% (BldA) [Mass fraction] 100 % HARNESS INSTALLER-C Rayshawn Maurice Work Phone: [facility] 05-21-2023 12:50-0400 Systolic blood pressure 139 mm[Hg] HARNESS INSTALLER-C Rayshawn Maurice Work Phone: [facility] 05-21-2023 10:49-0400 Body height 154.94 cm HARNESS INSTALLER-C Rayshawn Maurice Work Phone: [facility] 05-21-2023 10:49-0400 Body mass index (BMI) [Ratio] 32.5 kg/m2 HARNESS INSTALLER-C Rayshawn Maurice Work Phone: [facility] 05-21-2023 10:49-0400 Body temperature 97.3 [degF] HARNESS INSTALLER-C Rayshawn Maurice Work Phone: [facility] 05-21-2023 10:49-0400 Body weight 78.01 kg HARNESS INSTALLER-C Rayshawn Maurice Work Phone: [facility] 05-15-2023 09:46-0400 Body height 156.21 cm [facility] Work Phone: 05-15-2023 09:46-0400 Body mass index (BMI) [Ratio] 32.17 kg/m2 [facility] Work Phone: 05-15-2023 09:46-0400 Body surface area Derived from formula 1.79 m2 [facility] Work Phone: 05-15-2023 09:46-0400 Body temperature 96.2 [degF] [facility] Work Phone: 05-15-2023 09:46-0400 Body weight 78.5 kg [facility] Work Phone: 05-15-2023 09:46-0400 Diastolic blood pressure 78 mm[Hg] [facility] Work Phone: 05-15-2023 09:46-0400 Heart rate 68 /min [facility] Work Phone: 05-15-2023 09:46-0400 Respiratory rate 18 /min [facility] Work Phone: 05-15-2023 09:46-0400 SaO2% (BldA) [Mass fraction] 97 % [facility] Work Phone: 05-15-2023 09:46-0400 Systolic blood pressure 134 mm[Hg] [facility] Work Phone: 04-24-2023 11:24-0400 Body mass index (BMI) [Ratio] 33.2 kg/m2 ALCIDES-Melissa Chaudhary Work Phone: [facility] 04-24-2023 11:24-0400 Body weight 79.83 kg NONA Chaudhary Work Phone: [facility] 04-24-2023 11:24-0400 Diastolic blood pressure 85 mm[Hg] NONA Chaudhary Work Phone: [facility] 04-24-2023 11:24-0400 Systolic blood pressure 142 mm[Hg] NONA Chaudhary Work Phone: [facility] 03-17-2023 13:27-0400 Body height 156.21 cm Citlali Slarb DEPUTY BAILIFF [facility] Work Phone: 03-17-2023 13:27-0400 Body mass index (BMI) [Ratio] 32.17 kg/m2 Citlali Slarb DEPUTY BAILIFF [facility] Work Phone: 03-17-2023 13:27-0400 Body surface area Derived from formula 1.79 m2 Citlali Slarb DEPUTY BAILIFF [facility] Work Phone: 03-17-2023 13:27-0400 Body temperature 97.5 [degF] Citlali Slarb DEPUTY BAILIFF [facility] Work Phone: 03-17-2023 13:27-0400 Body weight 78.5 kg Citlali Slarb DEPUTY BAILIFF [facility] Work Phone: 03-17-2023 13:27-0400 Diastolic blood pressure 82 mm[Hg] Citlali Slarb DEPUTY BAILIFF [facility] Work Phone: 03-17-2023 13:27-0400 Heart rate 82 /min Citlali Slarb DEPUTY BAILIFF [facility] Work Phone: 03-17-2023 13:27-0400 Respiratory rate 16 /min Citlali Slarb DEPUTY BAILIFF [facility] Work Phone: 03-17-2023 13:27-0400 SaO2% (BldA) [Mass fraction] 97 % Citlali Slarb DEPUTY BAILIFF [facility] Work Phone: 03-17-2023 13:27-0400 Systolic blood pressure 126 mm[Hg] Citlali Slarb DEPUTY BAILIFF [facility] Work Phone: 03-10-2023 21:09-0400 Respiratory rate 18 /min HARNESS INSTALLER-C Rayshawn Maurice Work Phone: [facility] 03-10-2023 20:33-0400 Diastolic blood pressure 77 mm[Hg] HARNESS INSTALLER-C Rayshawn Maurice Work Phone: [facility] 03-10-2023 20:33-0400 Heart rate 64 /min HARNESS INSTALLER-C Rayshawn Maurice Work Phone: [facility] 03-10-2023 20:33-0400 SaO2% (BldA) [Mass fraction] 99 % HARNESS INSTALLER-C Rayshawn Maurice Work Phone: [facility] 03-10-2023 20:33-0400 Systolic blood pressure 187 mm[Hg] HARNESS INSTALLER-C Rayshawn Maurice Work Phone: [facility] 03-10-2023 18:59-0400 Body mass index (BMI) [Ratio] 34.2 kg/m2 HARNESS INSTALLER-C Rayshawn Maurice Work Phone: [facility] 03-10-2023 18:59-0400 Body weight 82.3 kg HARNESS INSTALLER-C Rayshawn Maurice Work Phone: [facility] 03-10-2023 17:15-0400 Body height 154.94 cm HARNESS INSTALLER-C Rayshawn Maurice Work Phone: [facility] 03-10-2023 17:15-0400 Body temperature 97.1 [degF] HARNESS INSTALLER-C Rayshawn Maurice Work Phone: [facility] 03-09-2023 03:08-0400 Diastolic blood pressure 68 mm[Hg] HARNESS INSTALLER-C Rayshawn Maurice Work Phone: [facility] 03-09-2023 03:08-0400 Heart rate 70 /min HARNESS INSTALLER-C Rayshawn Maurice Work Phone: [facility] 03-09-2023 03:08-0400 Respiratory rate 16 /min HARNESS INSTALLER-C Rayshawn Maurice Work Phone: [facility] 03-09-2023 03:08-0400 SaO2% (BldA) [Mass fraction] 98 % HARNESS INSTALLER-C Rayshawn Chaudhary Work Phone: [facility] 03-09-2023 03:08-0400 Systolic blood pressure 144 mm[Hg] HARNESS INSTALLER-C Rayshawn Maurice Work Phone: [facility] 03-08-2023 23:55-0400 Body height 154.94 cm HARNESS INSTALLER-C Rayshawn Maurice Work Phone: [facility] 03-08-2023 23:55-0400 Body mass index (BMI) [Ratio] 33.4 kg/m2 HARNESS INSTALLER-C Rayshawn Maurice Work Phone: [facility] 03-08-2023 23:55-0400 Body temperature 98.2 [degF] HARNESS INSTALLER-C Rayshawn Maurice Work Phone: [facility] 03-08-2023 23:55-0400 Body weight 80.2 kg HARNESS INSTALLER-C Rayshawn Maurice Work Phone: [facility] 01-23-2023 10:27-0500 Body mass index (BMI) [Ratio] 33.5 kg/m2 HARNESS INSTALLER-C Rayshawn Maurice Work Phone: [facility] 01-23-2023 10:27-0500 Body weight 80.45 kg HARNESS INSTALLER-C Rayshawn Maurice Work Phone: [facility] 01-23-2023 10:27-0500 Diastolic blood pressure 78 mm[Hg] HARNESS INSTALLER-C Rayshawn Maurice Work Phone: [facility] 01-23-2023 10:27-0500 Systolic blood pressure 134 mm[Hg] HARNESS INSTALLER-C Rayshawn Maurice Work Phone: [facility] 12-24-2022 09:42-0500 Body height 156.21 cm Citlali Gonzalez LPN [facility] Work Phone: 12-24-2022 09:42-0500 Body mass index (BMI) [Ratio] 32.17 kg/m2 Citlali Villarrealrb DEPUTY BAILIFF [facility] Work Phone: 12-24-2022 09:42-0500 Body surface area Derived from formula 1.79 m2 Citlali Slarb DEPUTY BAILIFF [facility] Work Phone: 12-24-2022 09:42-0500 Body temperature 97.6 [degF] Citlali Slarb DEPUTY BAILIFF [facility] Work Phone: Comment on above: Method: Temporal 12-24-2022 09:42-0500 Body weight 78.5 kg Citlali Philrb DEPUTY BAILIFF [facility] Work Phone: 12-24-2022 09:42-0500 Diastolic blood pressure 82 mm[Hg] Citlali Philrb DEPUTY BAILIFF [facility] Work Phone: Comment on above: Patient Position: Sitting; Cuff Location : Left Arm; Cuff Size: Standard 12-24-2022 09:42-0500 Heart rate 52 /min Citlali Philrb DEPUTY BAILIFF [facility] Work Phone: Comment on above: Pattern: Regular 12-24-2022 09:42-0500 Respiratory rate 16 /min Citlali Slarb DEPUTY BAILIFF [facility] Work Phone: Comment on above: Pattern: Unlabored 12-24-2022 09:42-0500 SaO2% (BldA) [Mass fraction] 98 % Citlali Slarb DEPUTY BAILIFF [facility] Work Phone: Comment on above: Room air 12-24-2022 09:42-0500 Systolic blood pressure 132 mm[Hg] Citlali Slarb DEPUTY BAILIFF [facility] Work Phone: Comment on above: Patient Position: Sitting; Cuff Location : Left Arm; Cuff Size: Standard 09-24-2022 09:28-0400 Body height 156.21 cm Citlali Slarb DEPUTY BAILIFF [facility] Work Phone: 09-24-2022 09:28-0400 Body mass index (BMI) [Ratio] 32.17 kg/m2 Citlali Philrb DEPUTY BAILIFF [facility] Work Phone: 09-24-2022 [id number] Body surface area Derived from formula 1.79 m2 Citlali Slarb DEPUTY BAILIFF [facility] Work Phone: 09-24-2022 [id number] Body temperature 97.4 [degF] Citlali Slarb DEPUTY BAILIFF [facility] Work Phone: 09-24-2022 [id number] Body weight 78.5 kg Citlali Slarb DEPUTY BAILIFF [facility] Work Phone: 09-24-2022 09:28-040 Diastolic blood pressure 84 mm[Hg] Citlali Philrb DEPUTY BAILIFF [facility] Work Phone: Comment on above: Patient Position: Sitting; Cuff Location : Left Arm; Cuff Size: Standard 09-24-2022 09:28-0400 Heart rate 72 /min Citlali Villarrealrb DEPUTY BAILIFF [facility] Work Phone: Comment on above: Pattern: Regular 09-24-2022 09:28-0400 Respiratory rate 17 /min Citlali Slarb DEPUTY BAILIFF [facility] Work Phone: Comment on above: Pattern: Unlabored 09-24-2022 09:28-0400 SaO2% (BldA) [Mass fraction] 97 % Ciltali Slarb DEPUTY BAILIFF [facility] Work Phone: Comment on above: Room air 09-24-2022 09:28-0400 Systolic blood pressure 128 mm[Hg] Citlali Slarb DEPUTY BAILIFF [facility] Work Phone: Comment on above: Patient Position: Sitting; Cuff Location : Left Arm; Cuff Size: Standard 09-04-2022 09:23-0400 Body height 154.94 cm NONA Hagen NP Work Phone: [facility] Work Phone: 09-04-2022 09:22-0400 Body mass index (BMI) [Ratio] 33.6 kg/m2 HARNESS INSTALLER-C Belem Brownleea HARNESS INSTALLER Work Phone: [facility] Work Phone: 09-04-2022 09:22-0400 Body weight 80.73 kg HARNESS INSTALLER-C Belem Ciesa HARNESS INSTALLER Work Phone: [facility] Work Phone: 09-04-2022 09:22-0400 Diastolic blood pressure 80 mm[Hg] HARNESS INSTALLER-C Belem Ciesa HARNESS INSTALLER Work Phone: [facility] Work Phone: 09-04-2022 09:22-0400 Systolic blood pressure 161 mm[Hg] HARNESS INSTALLER-C Belem Ciesa HARNESS INSTALLER Work Phone: [facility] Work Phone: 05-16-2022 05:06-0400 Diastolic blood pressure 66 mm[Hg] HARNESS INSTALLER-C Belem Ciesa HARNESS INSTALLER Work Phone: [facility] Work Phone: 05-16-2022 05:06-0400 Heart rate 80 /min HARNESS INSTALLER-C Belem Roeesa HARNESS INSTALLER Work Phone: [facility] Work Phone: 05-16-2022 05:06-0400 Respiratory rate 16 /min HARNESS INSTALLER-C Belem Ciesa HARNESS INSTALLER Work Phone: [facility] Work Phone: 05-16-2022 05:06-0400 Systolic blood pressure 121 mm[Hg] HARNESS INSTALLER-C Belem Ciesa HARNESS INSTALLER Work Phone: [facility] Work Phone: 05-16-2022 04:00-0400 SaO2% (BldA) [Mass fraction] 99 % HARNESS INSTALLER-C Belem Ciesa HARNESS INSTALLER Work Phone: [facility] Work Phone: 05-16-2022 01:03-0400 Body height 154.94 cm HARNESS INSTALLER-C Belem Hagen HARNESS INSTALLER Work Phone: [facility] Work Phone: 05-16-2022 01:03-0400 Body mass index (BMI) [Ratio] 32.5 kg/m2 HARNESS INSTALLER-C Belem Hagen HARNESS INSTALLER Work Phone: [facility] Work Phone: 05-16-2022 01:03-0400 Body temperature 97.3 [degF] HARNESS INSTALLER-C Belem Hagen HARNESS INSTALLER Work Phone: [facility] Work Phone: 05-16-2022 01:03-0400 Body weight 78.01 kg HARNESS INSTALLER-C Belem Hagen HARNESS INSTALLER Work Phone: [facility] Work Phone: 03-11-2022 09:19-0400 Body height 156.21 cm Marry Marroquin LPN [facility] Work Phone: 03-11-2022 09:19-0400 Body mass index (BMI) [Ratio] 32.17 kg/m2 Marry Marroquin LPN [facility] Work Phone: 03-11-2022 09:19-0400 Body surface area Derived from formula 1.79 m2 Marry Marroquin LPN [facility] Work Phone: 03-11-2022 09:19-0400 Body temperature 97.1 [degF] Marry Marroquin LPN [facility] Work Phone: 03-11-2022 09:19-0400 Body weight 78.5 kg Marry Marroquin LPN [facility] Work Phone: 03-11-2022 09:19-0400 Diastolic blood pressure 90 mm[Hg] Marry Marroquin LPN [facility] Work Phone: Comment on above: Patient Position: Sitting; Cuff Location : Left Arm; Cuff Size: Standard 03-11-2022 09:19-0400 Heart rate 69 /min Marry Marroquin JL [facility] Work Phone: Comment on above: Pattern: Regular 03-11-2022 09:19-0400 Respiratory rate 16 /min Marry Marroquin JL [facility]; [facility] Work Phone: Comment on above: Pattern: Unlabored 03-11-2022 09:19-0400 SaO2% (BldA) [Mass fraction] 98 % Marry Marroquin JL [facility]; [facility] Work Phone: Comment on above: Room air 03-11-2022 09:19-0400 Systolic blood pressure 138 mm[Hg] Marry Marroquin JL [facility]; [facility] Work Phone: Comment on above: Patient Position: Sitting; Cuff Location : Left Arm; Cuff Size: Standard 02-28-2022 15:57-0400 Diastolic blood pressure 91 mm[Hg] HARNESS INSTALLER-C Belem Brownleea HARNESS INSTALLER Work Phone: [facility] Work Phone: 02-28-2022 15:57-0400 Respiratory rate 18 /min HARNESS INSTALLER-C Belem Brownleea HARNESS INSTALLER Work Phone: [facility] Work Phone: 02-28-2022 15:57-0400 Systolic blood pressure 154 mm[Hg] HARNESS INSTALLER-C Belem Brownleea HARNESS INSTALLER Work Phone: [facility] Work Phone: 02-28-2022 15:23-0400 Heart rate 60 /min HARNESS INSTALLER-C Belem Brownleea HARNESS INSTALLER Work Phone: [facility] Work Phone: 02-28-2022 15:23-0400 SaO2% (BldA) [Mass fraction] 96 % HARNESS INSTALLER-C Belem Brownleea HARNESS INSTALLER Work Phone: [facility] Work Phone: 02-28-2022 13:20-0400 Body height 154.94 cm HARNESS INSTALLER-C Belem Brownleea HARNESS INSTALLER Work Phone: [facility] Work Phone: 02-28-2022 13:20-0400 Body mass index (BMI) [Ratio] 32.1 kg/m2 HARNESS INSTALLER-C Belem Brownleea HARNESS INSTALLER Work Phone: [facility] Work Phone: 02-28-2022 13:20-0400 Body temperature 97.3 [degF] HARNESS INSTALLER-C Belem Brownleea HARNESS INSTALLER Work Phone: [facility] Work Phone: 02-28-2022 13:20-0400 Body weight 77 kg HARNESS INSTALLER-C Belem Brownleea HARNESS INSTALLER Work Phone: [facility] Work Phone: 02-25-2022 09:52-0400 Body mass index (BMI) [Ratio] 33.2 kg/m2 HARNESS INSTALLER-C Belem Brownleea HARNESS INSTALLER Work Phone: [facility] Work Phone: 02-25-2022 09:52-0400 Body weight 79.83 kg HARNESS INSTALLER-C Belem Brownleea HARNESS INSTALLER Work Phone: [facility] Work Phone: 02-25-2022 09:52-0400 Diastolic blood pressure 86 mm[Hg] HARNESS INSTALLER-C Belem Brownleea HARNESS INSTALLER Work Phone: [facility] Work Phone: 02-25-2022 09:52-0400 Systolic blood pressure 128 mm[Hg] HARNESS INSTALLER-C Belem Brownleea HARNESS INSTALLER Work Phone: [facility] Work Phone: 02-25-2022 09:52-0400 Body mass index (BMI) [Ratio] 33.2 kg/m2 HARNESS INSTALLER-C Belem Brownleea HARNESS INSTALLER Work Phone: [facility] Work Phone: 02-25-2022 09:52-0400 Body weight 79.83 kg HARNESS INSTALLER-C Belem Hagen HARNESS INSTALLER Work Phone: [facility] Work Phone: 02-25-2022 09:52-0400 Diastolic blood pressure 86 mm[Hg] HARNESS INSTALLER-C Belem Hagen HARNESS INSTALLER Work Phone: [facility] Work Phone: 02-25-2022 09:52-0400 Systolic blood pressure 128 mm[Hg] HARNESS INSTALLER-C Belem Hagen HARNESS INSTALLER Work Phone: [facility] Work Phone: 12-11-2021 09:48-0500 Body height 156.21 cm Marry Marroquin DEPUTY BAILIFF [facility] Work Phone: Comment on above: virtual, none reported 12-11-2021 09:48-0500 Body mass index (BMI) [Ratio] 32.17 kg/m2 Marry Marroquin DEPUTY BAILIFF [facility]; [facility] Work Phone: Comment on above: virtual, none reported 12-11-2021 09:48-0500 Body surface area Derived from formula 1.79 m2 Marry Marroquin DEPUTY BAILIFF [facility]; [facility] Work Phone: Comment on above: virtual, none reported 12-11-2021 09:48-0500 Body weight 78.5 kg Marry Marroquin DEPUTY BAILIFF [facility]; [facility] Work Phone: Comment on above: virtual, none reported 11-19-2021 09:34-0500 Body mass index (BMI) [Ratio] 32.7 kg/m2 HARNESS INSTALLER-C Belem Hagen HARNESS INSTALLER Work Phone: [facility] Work Phone: 11-19-2021 09:34-0500 Body weight 78.64 kg HARNESS INSTALLER-C Belem Hagen HARNESS INSTALLER Work Phone: [facility] Work Phone: 11-19-2021 09:34-0500 Diastolic blood pressure 80 mm[Hg] HARNESS INSTALLER-C Belem Hagen HARNESS INSTALLER Work Phone: [facility] Work Phone: 11-19-2021 09:34-0500 Systolic blood pressure 146 mm[Hg] HARNESS INSTALLER-C Belem Hagen HARNESS INSTALLER Work Phone: [facility] Work Phone: 09-26-2021 08:50-0400 Body height 156.21 cm Samantha Goodman MA [facility]; [facility] Work Phone: 09-26-2021 08:50-0400 Body mass index (BMI) [Ratio] 32.17 kg/m2 Samantha Goodman MA [facility]; [facility] Work Phone: 09-26-2021 08:50-0400 Body surface area Derived from formula 1.79 m2 Samantha Goodman MA [facility]; [facility] Work Phone: 09-26-2021 08:50-0400 Body temperature 97.1 [degF] Samantha Goodman MA [facility]; [facility] Work Phone: Comment on above: Method: Temporal 09-26-2021 08:50-0400 Body weight 78.5 kg Samantha Goodman MA [facility]; [facility] Work Phone: 09-26-2021 08:50-0400 Diastolic blood pressure 76 mm[Hg] Samantha Goodman MA [facility]; [facility] Work Phone: Comment on above: Patient Position: Sitting; Cuff Location : Left Arm; Cuff Size: Standard 09-26-2021 08:50-0400 Heart rate 74 /min Samantha Goodman MA [facility]; [facility] Work Phone: Comment on above: Pattern: Regular 09-26-2021 08:50-0400 Respiratory rate 17 /min Samantha Goodman MA [facility]; [facility] Work Phone: Comment on above: Pattern: Unlabored 09-26-2021 08:50-0400 SaO2% (BldA) [Mass fraction] 98 % Samantha Goodman MA [facility]; [facility] Work Phone: Comment on above: Room air 09-26-2021 08:50-0400 Systolic blood pressure 130 mm[Hg] Samantha Goodman MA [facility]; [facility] Work Phone: Comment on above: Patient Position: Sitting; Cuff Location : Left Arm; Cuff Size: Standard 06-08-2021 08:50-0400 Body height 156.21 cm Afshin Sanchez LPN [facility]; [facility] Work Phone: 06-08-2021 08:50-0400 Body mass index (BMI) [Ratio] 31.98 kg/m2 Afshin Sanchez LPN [facility]; [facility] Work Phone: 06-08-2021 08:50-0400 Body surface area Derived from formula 1.78 m2 Afshin Sanchez LPN [facility]; [facility] Work Phone: 06-08-2021 08:50-0400 Body temperature 98.1 [degF] Afshin Sanchez LPN [facility]; [facility] Work Phone: Comment on above: Method: Infrared 06-08-2021 08:50-0400 Body weight 78.04 kg Afshin Sanchez LPN [facility]; [facility] Work Phone: 06-08-2021 08:50-0400 Diastolic blood pressure 78 mm[Hg] Afshin Sanchez LPN [facility]; [facility] Work Phone: Comment on above: Patient Position: Sitting; Cuff Location : Left Arm; Cuff Size: Standard 06-08-2021 08:50-0400 Heart rate 77 /min Afshin Sanchez LPN [facility]; [facility] Work Phone: Comment on above: Pattern: Regular 06-08-2021 08:50-0400 Respiratory rate 16 /min Afshin Sanchez LPN [facility]; [facility] Work Phone: Comment on above: Pattern: Unlabored 06-08-2021 08:50-0400 SaO2% (BldA) [Mass fraction] 98 % Afshin Sanchez LPN [facility]; [facility] Work Phone: Comment on above: Room air 06-08-2021 08:50-0400 Systolic blood pressure 130 mm[Hg] Afshin Sanchez LPN [facility]; [facility] Work Phone: Comment on above: Patient Position: Sitting; Cuff Location : Left Arm; Cuff Size: Standard 02-19-2021 08:36-0400 BMI (Body Mass Index) 32.54 kg/m2 Afshin Sanchez LPN [facility]; [facility] Work Phone: 02-19-2021 08:36-0400 Body Temperature 97.3 [degF] Afshin Sanchez LPN [facility]; [facility] Work Phone: Comment on above: Method: Infrared 02-19-2021 08:36-0400 Body weight 79.4 kg Afshin Sanchez LPN [facility]; [facility] Work Phone: 02-19-2021 08:36-0400 BP Diastolic 78 mm[Hg] Afshin Sanchez LPN [facility]; [facility] Work Phone: Comment on above: Patient Position: Sitting; Cuff Location : Left Arm; Cuff Size: Standard 02-19-2021 08:36-0400 BP Systolic 126 mm[Hg] Afshin Sanchez LPN [facility]; [facility] Work Phone: Comment on above: Patient Position: Sitting; Cuff Location : Left Arm; Cuff Size: Standard 02-19-2021 08:36-0400 BSA (Body Surface Area) 1.8 m2 Afshin Sanchez LPN [facility]; [facility] Work Phone: 02-19-2021 08:36-0400 Height 156.21 cm Afshin Sanchez LPN [facility]; [facility] Work Phone: 02-19-2021 08:36-0400 Pulse (Heart Rate) 84 /min Afshin Sanchez LPN [facility]; [facility] Work Phone: Comment on above: Pattern: Regular 02-19-2021 08:36-0400 Pulse Oximetry 97 % Belem Hagen [facility]; [facility] Work Phone: Comment on above: Room air 02-19-2021 08:36-0400 Respiratory Rate 17 /min Afshin Sanchez LPN [facility]; [facility] Work Phone: Comment on above: Pattern: Unlabored 02-19-2021 08:36-0400 SaO2% (BldA) [Mass fraction] 97 % Afshin Sanchez LPN [facility]; [facility] Work Phone: Comment on above: Room air 01-30-2021 08:52-0500 BMI (Body Mass Index) 32.9 kg/m2 Afshin Sanchez LPN [facility]; [facility] Work Phone: 01-30-2021 08:52-0500 Body Temperature 96.9 [degF] Afshin Sanchez LPN [facility]; [facility] Work Phone: Comment on above: Method: Infrared 01-30-2021 08:52-0500 Body weight 80.29 kg Afshin Sanchez LPN [facility]; [facility] Work Phone: 01-30-2021 08:52-0500 BP Diastolic 86 mm[Hg] Afshin Sanchez LPN [facility]; [facility] Work Phone: Comment on above: Patient Position: Sitting; Cuff Location : Left Arm; Cuff Size: Standard 01-30-2021 08:52-0500 BP Systolic 150 mm[Hg] Afshin Sanchez LPN [facility]; [facility] Work Phone: Comment on above: Patient Position: Sitting; Cuff Location : Left Arm; Cuff Size: Standard 01-30-2021 08:52-0500 BSA (Body Surface Area) 1.8 m2 Afshin Sanchez LPN [facility]; [facility] Work Phone: 01-30-2021 08:52-0500 Height 156.21 cm Afshin Sanchez LPN [facility]; [facility] Work Phone: 01-30-2021 08:52-0500 Pulse (Heart Rate) 74 /min Afshin Sanchez LPN [facility]; [facility] Work Phone: Comment on above: Pattern: Regular 01-30-2021 08:52-0500 Pulse Oximetry 99 % Belem Brownleegurjit [facility]; [facility] Work Phone: Comment on above: Room air 01-30-2021 08:52-0500 Respiratory Rate 16 /min Afshin Sanchez LPN [facility]; [facility] Work Phone: Comment on above: Pattern: Unlabored 01-30-2021 08:52-0500 SaO2% (BldA) [Mass fraction] 99 % Afshin Sanchez LPN [facility]; [facility] Work Phone: Comment on above: Room air 01-03-2021 08:39-0500 BMI (Body Mass Index) 32.9 kg/m2 Marry Marroquin LPN [facility]; [facility] Work Phone: 01-03-2021 08:39-0500 Body Temperature 98.3 [degF] Marry Marroquin LPN [facility]; [facility] Work Phone: Comment on above: Method: Temporal 01-03-2021 08:39-0500 Body weight 80.29 kg Marry Marroquin LPN [facility]; [facility] Work Phone: 01-03-2021 08:39-0500 BP Diastolic 84 mm[Hg] Marry Marroquin LPN [facility]; [facility] Work Phone: Comment on above: Patient Position: Sitting; Cuff Location : Left Arm; Cuff Size: Standard 01-03-2021 08:39-0500 BP Systolic 128 mm[Hg] Marry Marroquin LPN [facility]; [facility] Work Phone: Comment on above: Patient Position: Sitting; Cuff Location : Left Arm; Cuff Size: Standard 01-03-2021 08:39-0500 BSA (Body Surface Area) 1.8 m2 Marry Marroquin LPN [facility]; [facility] Work Phone: 01-03-2021 08:39-0500 Height 156.21 cm Marry Marroquin LPN [facility]; [facility] Work Phone: 01-03-2021 08:39-0500 Pulse (Heart Rate) 83 /min Marry Cara PARIKH [facility]; [facility] Work Phone: Comment on above: Pattern: Regular 01-03-2021 08:39-0500 Pulse Oximetry 98 % Belem Hieu [facility]; [facility] Work Phone: Comment on above: Room air 01-03-2021 08:39-0500 Respiratory Rate 16 /min Marry Marroquin LPN [facility]; [facility] Work Phone: Comment on above: Pattern: Unlabored 01-03-2021 08:39-0500 SaO2% (BldA) [Mass fraction] 98 % Marry Cara PARIKH [facility]; [facility] Work Phone: Comment on above: Room air 10-23-2020 07:57-0500 BMI (Body Mass Index) 32.16 kg/m2 Belem Hagen [employer] LAWYER Work Phone: [facility] Work Phone: 10-23-2020 07:57-0500 Body Temperature 96.4 [degF] Belem Hagen [employer] LAWYER Work Phone: [facility] Work Phone: 10-23-2020 07:57-0500 Body weight 78.48 kg Belem Hagen [employer]ER Work Phone: [facility] Work Phone: 10-23-2020 07:57-0500 BSA (Body Surface Area) 1.79 m2 Belem Hagen [employer] LAWYER Work Phone: [facility] Work Phone: 10-23-2020 07:57-0500 Height 156.21 cm Belem Hagen [employer] LAWYER Work Phone: [facility] Work Phone: 09-18-2020 13:23-0400 BMI (Body Mass Index) 32.16 kg/m2 Micki Gravius [facility] Work Phone: 09-18-2020 13:23-0400 Body Temperature 96.3 [degF] Micki Gravius LIGHT BULB REPLACER [facility] Work Phone: Comment on above: Method: Infrared 09-18-2020 13:23-0400 Body weight 78.48 kg Micki Rodriguez CMA [facility] Work Phone: 09-18-2020 13:23-0400 BP Diastolic 80 mm[Hg] Micki Rodriguez CMA [facility] Work Phone: Comment on above: Patient Position: Sitting; Cuff Location : Left Arm; Cuff Size: Standard 09-18-2020 13:23-0400 BP Systolic 138 mm[Hg] Micki Rodriguez CMA [facility] Work Phone: Comment on above: Patient Position: Sitting; Cuff Location : Left Arm; Cuff Size: Standard 09-18-2020 13:23-0400 BSA (Body Surface Area) 1.79 m2 Micki Rodriguez [facility] Work Phone: 09-18-2020 13:23-0400 Height 156.21 cm Micki Rodriguez [facility] Work Phone: 09-18-2020 13:23-0400 Pulse (Heart Rate) 85 /min Micki Rodriguez CMA [facility] Work Phone: Comment on above: Pattern: Regular 09-18-2020 13:23-0400 Pulse Oximetry 98 % Belem Hagen [facility] Work Phone: Comment on above: Room air 09-18-2020 13:23-0400 Respiratory Rate 16 /min Micki Rodriguez CMA [facility] Work Phone: Comment on above: Pattern: Unlabored 09-18-2020 13:23-0400 SaO2% (BldA) [Mass fraction] 98 % Micki Rodriguez [facility]; [facility] Work Phone: Comment on above: Room air 06-21-2020 08:20-0400 BMI (Body Mass Index) 31.97 kg/m2 Afshin Sanchez LPN [facility] Work Phone: 06-21-2020 08:20-0400 Body Temperature 97.1 [degF] Afshin Sanchez LPN [facility] Work Phone: Comment on above: Method: Infrared 06-21-2020 08:20-0400 Body weight 78.02 kg Afshin Sanchez LPN [facility] Work Phone: 06-21-2020 08:20-0400 BP Diastolic 80 mm[Hg] Afshin Sanchez LPN [facility] Work Phone: Comment on above: Patient Position: Sitting; Cuff Location : Left Arm; Cuff Size: Standard 06-21-2020 08:20-0400 BP Systolic 130 mm[Hg] Afshin Sanchez LPN [facility] Work Phone: Comment on above: Patient Position: Sitting; Cuff Location : Left Arm; Cuff Size: Standard 06-21-2020 08:20-0400 BSA (Body Surface Area) 1.78 m2 Afshin Sanchez LPN [facility] Work Phone: 06-21-2020 08:20-0400 Height 156.21 cm Afshin Sanchez LPN [facility] Work Phone: 06-21-2020 08:20-0400 Pulse (Heart Rate) 84 /min Afshin Sanchez LPN [facility] Work Phone: Comment on above: Pattern: Regular 06-21-2020 08:20-0400 Pulse Oximetry 97 % Belem Hagen [facility] Work Phone: Comment on above: Room air 06-21-2020 08:20-0400 Respiratory Rate 16 /min Afshin Sanchez LPN [facility] Work Phone: Comment on above: Pattern: Unlabored 06-21-2020 08:20-0400 SaO2% (BldA) [Mass fraction] 97 % Afshin Sanchez LPN [facility]; [facility] Work Phone: Comment on above: Room air 03-01-2020 08:40-0400 BMI (Body Mass Index) 32.53 kg/m2 Afshin Sanchez LPN [facility] Work Phone: Comment on above: pt will check temp and report when russ d 03-01-2020 08:40-0400 Body weight 79.38 kg Afshin Sanchez LPN [facility] Work Phone: Comment on above: pt will check temp and report when russ d 03-01-2020 08:40-0400 BSA (Body Surface Area) 1.8 m2 Afshin Sanchez DEPUTY BAILIFF [facility] Work Phone: Comment on above: pt will check temp and report when russ d 03-01-2020 08:40-0400 Height 156.21 cm Afshin Sanchez [facility] Work Phone: Comment on above: pt will check temp and report when russ d 02-28-2020 09:55-0400 BMI (Body Mass Index) 32.53 kg/m2 Marry Marroquin LPN [facility] Work Phone: 02-28-2020 09:55-0400 Body Temperature 97.3 [degF] Marry Marroquin LPN [facility] Work Phone: Comment on above: Method: Temporal 02-28-2020 09:55-0400 Body weight 79.38 kg Marry Marroquin LPN [facility] Work Phone: 02-28-2020 09:55-0400 BP Diastolic 80 mm[Hg] Marry Marroquin LPN [facility] Work Phone: Comment on above: Patient Position: Sitting; Cuff Location : Left Arm; Cuff Size: Standard 02-28-2020 09:55-0400 BP Systolic 128 mm[Hg] Marry Marroquin LPN [facility] Work Phone: Comment on above: Patient Position: Sitting; Cuff Location : Left Arm; Cuff Size: Standard 02-28-2020 09:55-0400 BSA (Body Surface Area) 1.8 m2 Marry Marroquin LPN [facility] Work Phone: 02-28-2020 09:55-0400 Height 156.21 cm Marry Marroquin LPN [facility] Work Phone: 02-28-2020 09:55-0400 Pulse (Heart Rate) 67 /min Marry Marroquin LPN [facility] Work Phone: Comment on above: Pattern: Regular 02-28-2020 09:55-0400 Pulse Oximetry 98 % Belem Hagen [facility] Work Phone: Comment on above: Room air 02-28-2020 09:55-0400 Respiratory Rate 16 /min Marry Marroquin DEPUTY BAILIFF [facility] Work Phone: Comment on above: Pattern: Unlabored 02-28-2020 09:55-0400 SaO2% (BldA) [Mass fraction] 98 % Marry Salguerosaúl DUMONTN [facility]; [facility] Work Phone: Comment on above: Room air 10-14-2019 08:55-0500 BMI (Body Mass Index) 31.88 kg/m2 Citlali Philrb DEPUTY BAILIFF [facility] Work Phone: 10-14-2019 08:55-0500 Body weight 77.79 kg Citlali Philrb DEPUTY BAILIFF [facility] Work Phone: 10-14-2019 08:55-0500 BP Diastolic 80 mm[Hg] Citlali Philrb DEPUTY BAILIFF [facility] Work Phone: Comment on above: Patient Position: Sitting; Cuff Location : Left Arm; Cuff Size: Standard 10-14-2019 08:55-0500 BP Systolic 116 mm[Hg] Citlali Slarb DEPUTY BAILIFF [facility] Work Phone: Comment on above: Patient Position: Sitting; Cuff Location : Left Arm; Cuff Size: Standard 10-14-2019 08:55-0500 BSA (Body Surface Area) 1.78 m2 Citlali Slarb DEPUTY BAILIFF [facility] Work Phone: 10-14-2019 08:55-0500 Height 156.21 cm Citlali Slarb DEPUTY BAILIFF [facility] Work Phone: 10-14-2019 08:55-0500 Pulse (Heart Rate) 94 /min Citlali Philrb DEPUTY BAILIFF [facility] Work Phone: Comment on above: Pattern: Regular 10-14-2019 08:55-0500 Pulse Oximetry 99 % Belem Hagen [facility] Work Phone: Comment on above: Room air 10-14-2019 08:55-0500 Respiratory Rate 16 /min Citlali Gonzalez DEPUTY BAILIFF [facility] Work Phone: Comment on above: Pattern: Unlabored 10-14-2019 08:55-0500 SaO2% (BldA) [Mass fraction] 99 % Citlali Gonzalez LPN [facility]; [facility] Work Phone: Comment on above: Room air 12-02-2018 09:07-0500 BMI (Body Mass Index) 31.88 kg/m2 Micki Rodriguez [facility] Work Phone: 12-02-2018 09:07-0500 Body Temperature 96.8 [degF] Micki Rodriguez LIGHT BULB REPLACER [facility] Work Phone: Comment on above: Method: Temporal 12-02-2018 09:07-0500 Body weight 77.79 kg Micki Rodriguez [facility] Work Phone: 12-02-2018 09:07-0500 BP Diastolic 82 mm[Hg] Micki Rodriguez [facility] Work Phone: Comment on above: Patient Position: Sitting; Cuff Location : Left Arm; Cuff Size: Standard 12-02-2018 09:07-0500 BP Systolic 126 mm[Hg] Micki Rodriguez [facility] Work Phone: Comment on above: Patient Position: Sitting; Cuff Location : Left Arm; Cuff Size: Standard 12-02-2018 09:07-0500 BSA (Body Surface Area) 1.78 m2 Micki Rodriguez [facility] Work Phone: 12-02-2018 09:07-0500 Height 156.21 cm Micki Rodriguez [facility] Work Phone: 12-02-2018 09:07-0500 Pulse (Heart Rate) 87 /min Micki Rodriguez LIGHT BULB REPLACER [facility] Internal Medicine Work Phone: Comment on above: Pattern: Regular 12-02-2018 09:07-0500 Pulse Oximetry 97 % Belem Hagen [facility] Internal Medicine Work Phone: Comment on above: Room air 12-02-2018 09:07-0500 Respiratory Rate 16 /min Micki Rodriguez CMA Comprehensiv e Internal Medicine Work Phone: Comment on above: Pattern: Unlabored 12-02-2018 09:07-0500 SaO2% (BldA) [Mass fraction] 97 % Micki Rodriguez CMA [facility]; [facility] Work Phone: Comment on above: Room air 12-02-2018 09:07-0500 Weight 77.79 kg Belem Hagen [facility] Internal Medicine Work Phone: 07-27-2018 10:17-0400 BMI (Body Mass Index) 31.88 kg/m2 Kamla Valentino [facility] Internal Medicine Work Phone: 07-27-2018 10:17-0400 Body Temperature 97 [degF] Kamla Valentino [facility] Internal Medicine Work Phone: Comment on above: Method: Temporal 07-27-2018 10:17-0400 Body weight 77.79 kg Kamla Valentino [facility] Internal Medicine Work Phone: 07-27-2018 10:17-0400 BP Diastolic 90 mm[Hg] Kamla Valentino [facility] Internal Medicine Work Phone: Comment on above: Patient Position: Sitting; Cuff Location : Left Arm; Cuff Size: Standard 07-27-2018 10:17-0400 BP Systolic 162 mm[Hg] Kamla Valentino [facility] Internal Medicine Work Phone: Comment on above: Patient Position: Sitting; Cuff Location : Left Arm; Cuff Size: Standard 07-27-2018 10:17-0400 BSA (Body Surface Area) 1.78 m2 Kamla Valentino [facility] Internal Medicine Work Phone: 07-27-2018 10:17-0400 Height 156.21 cm Kamla Valentino [facility] Internal Medicine Work Phone: 07-27-2018 10:17-0400 Pulse (Heart Rate) 82 /min Kamla Valentino [facility] Internal Medicine Work Phone: Comment on above: Pattern: Regular 07-27-2018 10:17-0400 Pulse Oximetry 97 % Belem Hagen [facility] Internal Medicine Work Phone: Comment on above: Room air 07-27-2018 10:17-0400 Respiratory Rate 18 /min Kamla Valentino [facility] Work Phone: Comment on above: Pattern: Unlabored 07-27-2018 10:17-0400 SaO2% (BldA) [Mass fraction] 97 % Kamla Valentino [facility]; [facility] Work Phone: Comment on above: Room air 07-27-2018 10:170400 Weight 77.79 kg Belem Hagen [facility] Work Phone: 10-16-2017 10:12-0500 BMI (Body Mass Index) 32.53 kg/m2 Agnieszka Rae RN [facility] Work Phone: 10-16-2017 10:12-0500 Body Temperature 97.2 [degF] Agnieszka Rae RN [facility] Work Phone: Comment on above: Method: Temporal 10-16-2017 10:120500 Body weight 79.38 kg Agnieszka Rae RN [facility] Work Phone: 10-16-2017 10:12-0500 BP Diastolic 80 mm[Hg] Agnieszka Rae RN [facility] Work Phone: Comment on above: Patient Position: Sitting; Cuff Location : Left Arm; Cuff Size: Standard 10-16-2017 10:12-0500 BP Systolic 124 mm[Hg] Agnieszka Rae RN [facility] Work Phone: Comment on above: Patient Position: Sitting; Cuff Location : Left Arm; Cuff Size: Standard 10-16-2017 10:12-0500 BSA (Body Surface Area) 1.8 m2 Agnieszka Rae RN [facility] Work Phone: 10-16-2017 10:12-0500 Height 156.21 cm Agnieszka Rae RN [facility] Work Phone: 10-16-2017 10:12-0500 Pulse (Heart Rate) 72 /min Agnieszka Rae RN [facility] Work Phone: Comment on above: Pattern: Regular 10-16-2017 10:12-0500 Pulse Oximetry 97 % Belem Hagen [facility] Work Phone: Comment on above: Room air 10-16-2017 10:12-0500 Respiratory Rate 16 /min Agnieszka Rae RN [facility] Work Phone: Comment on above: Pattern: Unlabored 10-16-2017 10:12-0500 SaO2% (BldA) [Mass fraction] 97 % Agnieszka Rae RN [facility]; [facility] Work Phone: Comment on above: Room air 10-16-2017 10:12-0500 Weight 79.38 kg Belem Hagen [facility] Work Phone: 07-18-2017 08:49-0400 BMI (Body Mass Index) 32.53 kg/m2 Citlali Gonzalez LPN [facility] Work Phone: 07-18-2017 08:49-0400 Body Temperature 97.9 [degF] Citlail Villarrealrb DEPUTY BAILIFF [facility] Work Phone: 07-18-2017 08:49-0400 Body weight 79.38 kg Citlali Philrb [employer]PUT[employer] BAILIFF [facility] Work Phone: 07-18-2017 08:49-0400 BP Diastolic 80 mm[Hg] Citlali Philrb DEPUTY BAILIFF [facility] Work Phone: Comment on above: Patient Position: Sitting; Cuff Location : Left Arm; Cuff Size: Standard 07-18-2017 08:49-0400 BP Systolic 124 mm[Hg] Citlali Philrb DEPUTY BAILIFF [facility] Work Phone: Comment on above: Patient Position: Sitting; Cuff Location : Left Arm; Cuff Size: Standard 07-18-2017 08:49-0400 BSA (Body Surface Area) 1.8 m2 Citlali Philrb [employer]PUT[employer] BAILIFF [facility] Work Phone: 07-18-2017 08:49-0400 Height 156.21 cm Citlali Philrb [employer]PUT[employer] BAILIFF [facility] Work Phone: 07-18-2017 08:49-0400 Pulse (Heart Rate) 72 /min Citlali Villarrealrb DEPUTY BAILIFF Comprehensiv e Internal Medicine Work Phone: Comment on above: Pattern: Regular 07-18-2017 08:49-0400 Pulse Oximetry 98 % Belem Hagen [facility] Internal Medicine Work Phone: Comment on above: Room air 07-18-2017 08:49-0400 Respiratory Rate 17 /min iCtlali Gonzalez LPN [facility] Work Phone: Comment on above: Pattern: Unlabored 07-18-2017 08:49-0400 SaO2% (BldA) [Mass fraction] 98 % Citlali Villarrealrb [employer]PUT[employer] BAILIFF [facility]; [facility] Work Phone: Comment on above: Room air 07-18-2017 08:49-0400 Weight 79.38 kg Belem Hagen [facility] Internal Medicine Work Phone: 12-16-2016 13:21-0500 BMI (Body Mass Index) 32.53 kg/m2 Citlali Villarrealrb [employer] B[employer]IFF [facility] Work Phone: 12-16-2016 13:21-0500 Body Temperature 97.2 [degF] Citlali Villarrealrb [employer]PUT[employer] BAILIFF [facility] Work Phone: 12-16-2016 13:21-0500 Body weight 79.38 kg Ctilali Villarrealrb [employer]PUTY BAILIFF [facility] Work Phone: 12-16-2016 13:21-0500 BP Diastolic 82 mm[Hg] Citlali Slarb [employer]PUT[employer] BAILIFF [facility] Work Phone: Comment on above: Patient Position: Sitting; Cuff Location : Left Arm; Cuff Size: Standard 12-16-2016 13:21-0500 BP Systolic 126 mm[Hg] Citlali Philrb [employer]PUT[employer] BAILIFF [facility] Work Phone: Comment on above: Patient Position: Sitting; Cuff Location : Left Arm; Cuff Size: Standard 12-16-2016 13:21-0500 BSA (Body Surface Area) 1.8 m2 Citlali Philrb [employer] BAILIFF [facility] Work Phone: 12-16-2016 13:21-0500 Height 156.21 cm Citlali Slarb [employer]PUT[employer] BAILIFF [facility] Work Phone: 12-16-2016 13:21-0500 Pulse (Heart Rate) 81 /min Citlali Gonzalez DEPUT[employer] BAILIFF Comprehensiv e Internal Medicine Work Phone: Comment on above: Pattern: Regular 12-16-2016 13:21-0500 Pulse Oximetry 99 % Belem Hagen [facility] Internal Medicine Work Phone: Comment on above: Room air 12-16-2016 13:21-0500 Respiratory Rate 16 /min Citlali Villarreallizet DUMONTN [facility] Work Phone: Comment on above: Pattern: Unlabored 12-16-2016 13:21-0500 SaO2% (BldA) [Mass fraction] 99 % Citlali Philrb [employer]PUT[employer] BAILIFF [facility]; [facility] Work Phone: Comment on above: Room air 12-16-2016 13:21-0500 Weight 79.38 kg Belem Hagen [facility] Internal Medicine Work Phone: 09-23-2016 09:51-0400 BMI (Body Mass Index) 31.79 kg/m2 Citlali Philrb [employer]PUT[employer] BAILIFF [facility] Work Phone: 09-23-2016 09:51-0400 Body Temperature 97.4 [degF] Citlali Slarb [employer] BAILIFF [facility] Work Phone: 09-23-2016 09:51-0400 Body weight 77.57 kg Citlali Philrb [employer]IFF [facility] Work Phone: 09-23-2016 09:51-0400 BP Diastolic 82 mm[Hg] Citlali Slarb [employer]PUT[employer] BAILIFF [facility] Work Phone: Comment on above: Patient Position: Sitting; Cuff Location : Left Arm; Cuff Size: Standard 09-23-2016 09:51-0400 BP Systolic 124 mm[Hg] Citlali Slarb [employer]PUT[employer] BAILIFF [facility] Work Phone: Comment on above: Patient Position: Sitting; Cuff Location : Left Arm; Cuff Size: Standard 09-23-2016 09:51-0400 BSA (Body Surface Area) 1.78 m2 Citlali Slarb [employer]PUT[employer] BAILIFF [facility] Work Phone: 09-23-2016 09:51-0400 Height 156.21 cm Citlali Gonzalez LPN [facility] Work Phone: 09-23-2016 09:51-0400 Pulse (Heart Rate) 58 /min Citlali Gonzalez LPN Comprehensiv e Internal Medicine Work Phone: Comment on above: Pattern: Regular 09-23-2016 09:51-0400 Pulse Oximetry 98 % Belem Hagen [facility] Internal Medicine Work Phone: Comment on above: Room air 09-23-2016 09:51-0400 Respiratory Rate 18 /min Citlali Gonzalez LPN [facility] Work Phone: Comment on above: Pattern: Unlabored 09-23-2016 09:51-0400 SaO2% (BldA) [Mass fraction] 98 % Citlali Gonzalez LPN [facility]; [facility] Work Phone: Comment on above: Room air 09-23-2016 09:51-0400 Weight 77.57 kg Belem Hagen [facility] Internal Medicine Work Phone: 08-06-2016 09:23-0400 BMI (Body Mass Index) 31.79 kg/m2 Agnieszka Rae RN [facility] Work Phone: 08-06-2016 09:23-0400 Body Temperature 97.2 [degF] Agnieszka Rae RN [facility] Work Phone: Comment on above: Method: Temporal 08-06-2016 09:23-0400 Body weight 77.57 kg Agnieszka Rae RN [facility] Work Phone: 08-06-2016 09:23-0400 BP Diastolic 80 mm[Hg] Agnieszka Rae RN [facility] Work Phone: Comment on above: Patient Position: Sitting; Cuff Location : Left Arm; Cuff Size: Standard 08-06-2016 09:23-0400 BP Systolic 130 mm[Hg] Agnieszka Rae RN [facility] Work Phone: Comment on above: Patient Position: Sitting; Cuff Location : Left Arm; Cuff Size: Standard 08-06-2016 09:23-0400 BSA (Body Surface Area) 1.78 m2 Agnieszka Rae RN [facility] Work Phone: 08-06-2016 09:23-0400 Height 156.21 cm Agnieszka Rae RN [facility] Work Phone: 08-06-2016 09:23-0400 Pulse (Heart Rate) 71 /min Agnieszka Rae RN [facility] Work Phone: Comment on above: Pattern: Regular 08-06-2016 09:23-0400 Pulse Oximetry 97 % Belem Roebessy [facility] Work Phone: Comment on above: Room air 08-06-2016 09:23-0400 Respiratory Rate 15 /min Agnieszka Rae RN [facility] Work Phone: Comment on above: Pattern: Unlabored 08-06-2016 09:23-0400 SaO2% (BldA) [Mass fraction] 97 % Agnieszka Rae RN [facility]; [facility] Work Phone: Comment on above: Room air 08-06-2016 09:23-0400 Weight 77.57 kg Belem Hagen [facility] Work Phone: 05-02-2016 10:04-0400 BMI (Body Mass Index) 31.83 kg/m2 Citlali Gonzalez LPN [facility] Work Phone: 05-02-2016 10:04-0400 Body Temperature 97 [degF] Citlali Gonzalez LPN [facility] Work Phone: 05-02-2016 10:04-0400 Body weight 77.68 kg Citlali Gonzalez LPN [facility] Work Phone: 05-02-2016 10:04-0400 BP Diastolic 82 mm[Hg] Citlali Carlos PARIKH [facility] Work Phone: Comment on above: Patient Position: Sitting; Cuff Location : Left Arm; Cuff Size: Standard 05-02-2016 10:04-0400 BP Systolic 122 mm[Hg] Citlali Gonzalez LPN [facility] Work Phone: Comment on above: Patient Position: Sitting; Cuff Location : Left Arm; Cuff Size: Standard 05-02-2016 10:040400 BSA (Body Surface Area) 1.78 m2 Citlali Gonzalez LPN [facility] Work Phone: 05-02-2016 10:04-0400 Height 156.21 cm Citlali Gonzalez LPN [facility] Work Phone: 05-02-2016 10:04-0400 Pulse (Heart Rate) 70 /min Citlali Gonzalez LPN Comprehensiv e Internal Medicine Work Phone: Comment on above: Pattern: Regular 05-02-2016 10:04-0400 Pulse Oximetry 97 % Belem Hagen [facility] Internal Medicine Work Phone: Comment on above: Room air 05-02-2016 10:040400 Respiratory Rate 17 /min Citlali Gonzalez LPN [facility] Work Phone: Comment on above: Pattern: Unlabored 05-02-2016 10:04-0400 SaO2% (BldA) [Mass fraction] 97 % Citlali Gonzalez DEPUTY BAILIFF [facility]; [facility] Work Phone: Comment on above: Room air 05-02-2016 10:04-0400 Weight 77.68 kg Belem Hagen [facility] Internal Medicine Work Phone: 04-19-2016 14:13-0400 BMI (Body Mass Index) 32.37 kg/m2 Citlali Gonzalez DEPUT[employer] BAILIFF [facility] Work Phone: 04-19-2016 14:13-0400 Body Temperature 97 [degF] Citlali Gonzalez DEPUTY BAILIFF [facility] Work Phone: 04-19-2016 14:13-0400 Body weight 78.98 kg Citlali Gonzalez DEPUT[employer] BAILIFF [facility] Work Phone: 04-19-2016 14:13-0400 BP Diastolic 82 mm[Hg] Citlali Villarrealrb DEPUTY BAILIFF [facility] Work Phone: Comment on above: Patient Position: Sitting; Cuff Location : Left Arm; Cuff Size: Standard 04-19-2016 14:13-0400 BP Systolic 130 mm[Hg] Citlali Gonzalez LPN [facility] Work Phone: Comment on above: Patient Position: Sitting; Cuff Location : Left Arm; Cuff Size: Standard 04-19-2016 14:13-0400 BSA (Body Surface Area) 1.79 m2 Citlali Gonzalez LPN [facility] Work Phone: 04-19-2016 14:13-0400 Height 156.21 cm Citlali Gonzalez LPN [facility] Work Phone: 04-19-2016 14:13-0400 Pulse (Heart Rate) 86 /min Citlali Gonzalez LPN Comprehensiv e Internal Medicine Work Phone: Comment on above: Pattern: Regular 04-19-2016 14:13-0400 Pulse Oximetry 98 % Belem Hagen [facility] Work Phone: Comment on above: Room air 04-19-2016 14:13-0400 Respiratory Rate 16 /min Citlali Gonzalez LPN [facility] Work Phone: Comment on above: Pattern: Unlabored 04-19-2016 14:13-0400 SaO2% (BldA) [Mass fraction] 98 % Citlali Gonzalez LPN [facility]; [facility] Work Phone: Comment on above: Room air 04-19-2016 14:13-0400 Weight 78.98 kg Belem Hagen [facility] Work Phone: 03-14-2016 07:51-0400 BMI (Body Mass Index) 32.53 kg/m2 Halley Bates RN [facility] Work Phone: 03-14-2016 07:51-0400 Body Temperature 100.6 [degF] Halley Bates RN Comprehensiv e Internal Medicine Work Phone: Comment on above: Method: Oral 03-14-2016 07:51-0400 Body weight 79.38 kg Halley Bates RN [facility] Work Phone: 03-14-2016 07:51-0400 BP Diastolic 88 mm[Hg] Halley Bates RN [facility] Work Phone: Comment on above: Patient Position: Sitting; Cuff Location : Left Arm; Cuff Size: Large 03-14-2016 07:51-0400 BP Systolic 138 mm[Hg] Halley Bates RN [facility] Work Phone: Comment on above: Patient Position: Sitting; Cuff Location : Left Arm; Cuff Size: Large 03-14-2016 07:51-0400 BSA (Body Surface Area) 1.8 m2 Halley Bates RN [facility] Work Phone: 03-14-2016 07:51-0400 Height 156.21 cm Halley Bates RN [facility] Work Phone: 03-14-2016 07:51-0400 Pulse (Heart Rate) 106 /min Halley Batse RN Comprehens saira Internal Medicine Work Phone: Comment on above: Pattern: Regular 03-14-2016 07:51-0400 Pulse Oximetry 97 % Belem Hieu [facility] Internal Medicine Work Phone: Comment on above: Room air 03-14-2016 07:51-0400 Respiratory Rate 20 /min Halley Bates RN Comprehensiv e Internal Medicine Work Phone: Comment on above: Pattern: Unlabored 03-14-2016 07:51-0400 SaO2% (BldA) [Mass fraction] 97 % Halley Bates RN [facility]; [facility] Work Phone: Comment on above: Room air 03-14-2016 07:51-0400 Weight 79.38 kg Belem Brownleegurjit [facility] Internal Medicine Work Phone: 03-11-2016 09:36-0400 BMI (Body Mass Index) 32.53 kg/m2 Fiorella Whelan CMA [facility] Work Phone: 03-11-2016 09:36-0400 Body Temperature 96.8 [degF] Fiorella Whelan CMA [facility] Work Phone: Comment on above: Method: Oral 03-11-2016 09:36-0400 Body weight 79.38 kg Fiorella Whelan CMA [facility] Work Phone: 03-11-2016 09:36-0400 BP Diastolic 80 mm[Hg] Fiorella Whelan [facility] Work Phone: Comment on above: Patient Position: Sitting; Cuff Location : Left Arm; Cuff Size: Standard 03-11-2016 09:36-0400 BP Systolic 130 mm[Hg] Fiorella Whelan [facility] Work Phone: Comment on above: Patient Position: Sitting; Cuff Location : Left Arm; Cuff Size: Standard 03-11-2016 09:36-0400 BSA (Body Surface Area) 1.8 m2 Fiorella Whelan [facility] Work Phone: 03-11-2016 09:36-0400 Height 156.21 cm Fiorella Whelan [facility] Work Phone: 03-11-2016 09:36-0400 Pulse (Heart Rate) 81 /min Fiorella Whelan [facility] Work Phone: Comment on above: Pattern: Regular 03-11-2016 09:36-0400 Respiratory Rate 16 /min Fiorella Whelan [facility] Work Phone: Comment on above: Pattern: Unlabored 03-11-2016 09:36-0400 Weight 79.38 kg Belem Hagen [facility] Internal Medicine Work Phone: 11-03-2015 10:01-0500 BMI (Body Mass Index) 32.16 kg/m2 Citlali Gonzalez [facility] Internal Medicine Work Phone: 11-03-2015 10:01-0500 Body Temperature 97.1 [degF] Citlali Philrb [facility] Internal Medicine Work Phone: 11-03-2015 10:01-0500 Body weight 78.47 kg Citlali Villarrealrb [facility] Internal Medicine Work Phone: 11-03-2015 10:01-0500 BP Diastolic 82 mm[Hg] Citlali Slarb [facility] Internal Medicine Work Phone: Comment on above: Patient Position: Sitting; Cuff Location : Left Arm; Cuff Size: Standard 11-03-2015 10:01-0500 BP Systolic 134 mm[Hg] Citlali Gonzalez LPN [facility] Work Phone: Comment on above: Patient Position: Sitting; Cuff Location : Left Arm; Cuff Size: Standard 11-03-2015 10:01-0500 BSA (Body Surface Area) 1.79 m2 Citlali Gonzalez LPN [facility] Work Phone: 11-03-2015 10:01-0500 Height 156.21 cm Citlali Gonzalez LPN [facility] Work Phone: 11-03-2015 10:01-0500 Pulse (Heart Rate) 80 /min Citlali Gonzalez LPN Comprehensiv e Internal Medicine Work Phone: Comment on above: Pattern: Regular 11-03-2015 10:01-0500 Pulse Oximetry 98 % Belem Hagen [facility] Internal Medicine Work Phone: Comment on above: Room air 11-03-2015 10:01-0500 Respiratory Rate 18 /min Citlali Gonzalez LPN [facility] Work Phone: Comment on above: Pattern: Unlabored 11-03-2015 10:01-0500 SaO2% (BldA) [Mass fraction] 98 % Citlali Villarreallizet PARIKH [facility]; [facility] Work Phone: Comment on above: Room air 11-03-2015 10:01-0500 Weight 78.47 kg Belem Hagen [facility] Internal Medicine Work Phone: 10-09-2015 09:57-0500 BMI (Body Mass Index) 32.16 kg/m2 Monet Holman [facility] Internal Medicine Work Phone: 10-09-2015 09:57-0500 Body Temperature 97.6 [degF] Monet Holman [facility] Internal Medicine Work Phone: Comment on above: Method: Temporal 10-09-2015 09:57-0500 Body weight 78.47 kg Monet Holman [facility] Internal Medicine Work Phone: 10-09-2015 09:57-0500 BP Diastolic 82 mm[Hg] Monet Holman [facility] Internal Medicine Work Phone: Comment on above: Patient Position: Sitting; Cuff Location : Left Arm; Cuff Size: Large 10-09-2015 09:57-0500 BP Systolic 114 mm[Hg] Monet Santizochristophalbertina [facility] Internal Medicine Work Phone: Comment on above: Patient Position: Sitting; Cuff Location : Left Arm; Cuff Size: Large 10-09-2015 09:57-0500 BSA (Body Surface Area) 1.79 m2 Monet River [facility] Internal Medicine Work Phone: 10-09-2015 09:57-0500 Height 156.21 cm Monet River [facility] Internal Medicine Work Phone: 10-09-2015 09:57-0500 Pulse (Heart Rate) 76 /min Monet Santizoshon [facility] Internal Medicine Work Phone: Comment on above: Pattern: Regular 10-09-2015 09:57-0500 Pulse Oximetry 99 % Belem Hagen [facility] Internal Medicine Work Phone: Comment on above: Room air 10-09-2015 09:57-0500 Respiratory Rate 16 /min Monet River [facility] Internal Medicine Work Phone: Comment on above: Pattern: Unlabored 10-09-2015 09:57-0500 SaO2% (BldA) [Mass fraction] 99 % Monet Flshon [facility] Internal Medicine; [facility] Internal Medicine Work Phone: Comment on above: Room air 10-09-2015 09:57-0500 Weight 78.47 kg Belem Hagen [facility] Internal Medicine Work Phone: 06-21-2015 09:46-0400 BMI (Body Mass Index) 32.16 kg/m2 Monet River [facility] Internal Medicine Work Phone: 06-21-2015 09:46-0400 Body Temperature 97.8 [degF] Monet River [facility] Internal Medicine Work Phone: Comment on above: Method: Temporal 06-21-2015 09:46-0400 Body weight 78.47 kg Monet River [facility] Internal Medicine Work Phone: 06-21-2015 09:46-0400 BP Diastolic 88 mm[Hg] Monet Holman [facility] Internal Medicine Work Phone: Comment on above: Patient Position: Sitting; Cuff Location : Left Arm; Cuff Size: Large 06-21-2015 09:46-0400 BP Systolic 136 mm[Hg] Monet Holman [facility] Internal Medicine Work Phone: Comment on above: Patient Position: Sitting; Cuff Location : Left Arm; Cuff Size: Large 06-21-2015 09:46-0400 BSA (Body Surface Area) 1.79 m2 Monet Holman [facility] Internal Medicine Work Phone: 06-21-2015 09:46-0400 Height 156.21 cm Monet Holman [facility] Internal Medicine Work Phone: 06-21-2015 09:46-0400 Pulse (Heart Rate) 72 /min Monet Holman [facility] Internal Medicine Work Phone: Comment on above: Pattern: Regular 06-21-2015 09:46-0400 Respiratory Rate 16 /min Monet Holman [facility] Internal Medicine Work Phone: Comment on above: Pattern: Unlabored 06-21-2015 09:46-0400 Weight 78.47 kg Belem Hagen [facility] Internal Medicine Work Phone: 05-31-2015 09:23-0400 BMI (Body Mass Index) 32.53 kg/m2 [facility] Internal Medicine Work Phone: 05-31-2015 09:23-0400 Body weight 79.38 kg [facility] Internal Medicine Work Phone: 05-31-2015 09:23-0400 BP Diastolic 76 mm[Hg] [facility] Internal Medicine Work Phone: Comment on above: Patient Position: Sitting; Cuff Location : Left Arm; Cuff Size: Standard 05-31-2015 09:23-0400 BP Systolic 132 mm[Hg] [facility] Internal Medicine Work Phone: Comment on above: Patient Position: Sitting; Cuff Location : Left Arm; Cuff Size: Standard 05-31-2015 09:23-0400 BSA (Body Surface Area) 1.8 m2 [facility] Work Phone: 05-31-2015 09:23-0400 [facility] 05-31-2015 09:23-0400 Pulse (Heart Rate) 74 /min [facility] Internal Medicine Work Phone: Comment on above: Pattern: Regular 05-31-2015 09:23-0400 Pulse Oximetry 98 % [facility] Comment on above: Room air 05-31-2015 09:23-0400 Respiratory Rate 18 /min [facility] Medicine Work Phone: Comment on above: Pattern: Unlabored 05-31-2015 09:23-0400 SaO2% (BldA) [Mass fraction] 98 % [facility] Internal Medicine; [facility] Medicine Work Phone: Comment on above: Room air 05-31-2015 09:23-0400 Weight 79.38 kg Belem Hagen [facility] Work Phone: 02-15-2015 14:05-0400 BMI (Body Mass Index) 33.83 kg/m2 Fiorella Whelan [facility] Work Phone: Comment on above: recheck BP 136/82 02-15-2015 14:05-0400 Body Temperature 97.7 [degF] Fiorella Whelan [facility] Work Phone: Comment on above: recheck BP 136/82 02-15-2015 14:05-0400 Body weight 82.56 kg Fiorella Whelan [facility] Work Phone: Comment on above: recheck BP 136/82 02-15-2015 14:05-0400 BP Diastolic 80 mm[Hg] Fiorella Whelan [facility] Work Phone: Comment on above: Patient Position: Sitting; Cuff Location : Left Arm; Cuff Size: Large recheck BP 136/82 02-15-2015 14:05-0400 BP Systolic 142 mm[Hg] Fiorella Whelan [facility] Work Phone: Comment on above: Patient Position: Sitting; Cuff Location : Left Arm; Cuff Size: Large recheck BP 136/82 02-15-2015 14:05-0400 BSA (Body Surface Area) 1.83 m2 Fiorella Whelan [facility] Work Phone: Comment on above: recheck BP 136/82 02-15-2015 14:05-0400 Height 156.21 cm Fiorella Whelan [facility] Work Phone: Comment on above: recheck BP 136/82 02-15-2015 14:05-0400 Pulse (Heart Rate) 72 /min Fiorella Whelan [facility] Work Phone: Comment on above: Pattern: Regular recheck BP 136/82 02-15-2015 14:05-0400 Respiratory Rate 16 /min Fiorella Whelan [facility] Work Phone: Comment on above: Pattern: Unlabored recheck BP 136/82 02-15-2015 14:05-0400 Weight 82.56 kg Belem Hagen [facility] Internal Medicine Work Phone: Comment on above: recheck BP 136/82 10-19-2014 08:49-0500 BMI (Body Mass Index) 34.97 kg/m2 Agnieszka Rae RN [facility] Internal Medicine Work Phone: 10-19-2014 08:49-0500 Body Temperature 98.4 [degF] Agnieszka Rae RN [facility] Internal Medicine Work Phone: Comment on above: Method: Temporal 10-19-2014 08:49-0500 Body weight 85.33 kg Agnieszka Rae RN [facility] Internal Medicine Work Phone: 10-19-2014 08:49-0500 BP Diastolic 74 mm[Hg] Agnieszka Rae RN [facility] Medicine Work Phone: Comment on above: Patient Position: Sitting; Cuff Location : Left Arm; Cuff Size: Standard 10-19-2014 08:49-0500 BP Systolic 130 mm[Hg] Agnieszka Rae RN [facility] Work Phone: Comment on above: Patient Position: Sitting; Cuff Location : Left Arm; Cuff Size: Standard 10-19-2014 08:49-0500 BSA (Body Surface Area) 1.85 m2 Agnieszka Rae RN [facility] Work Phone: 10-19-2014 08:49-0500 Height 156.21 cm Agnieszka Rae RN [facility] Work Phone: 10-19-2014 08:49-0500 Pulse (Heart Rate) 83 /min Agnieszka Rae RN [facility] Work Phone: Comment on above: Pattern: Regular 10-19-2014 08:49-0500 Pulse Oximetry 98 % Belem Hieu [facility] Medicine Work Phone: Comment on above: Room air 10-19-2014 08:49-0500 Respiratory Rate 16 /min Agnieszka Rae RN [facility] Work Phone: Comment on above: Pattern: Unlabored 10-19-2014 08:49-0500 SaO2% (BldA) [Mass fraction] 98 % Agnieszka Rae RN [facility]; [facility] Work Phone: Comment on above: Room air 10-19-2014 08:49-0500 Weight 85.33 kg Belem Hagen [facility] Work Phone: 07-20-2014 08:29-0400 BMI (Body Mass Index) 34.97 kg/m2 Fiorella Whelan CMA [facility] Work Phone: 07-20-2014 08:29-0400 Body Temperature 98.7 [degF] Fiorella Whelan CMA [facility] Medicine Work Phone: Comment on above: Method: Oral 07-20-2014 08:29-0400 Body weight 85.33 kg Fiorella Whelan CMA [facility] Work Phone: 07-20-2014 08:29-0400 BP Diastolic 70 mm[Hg] Fiorella Whelan [facility] Work Phone: Comment on above: Patient Position: Sitting; Cuff Location : Left Arm; Cuff Size: Standard 07-20-2014 08:29-0400 BP Systolic 140 mm[Hg] Fiorella Whelan [facility] Work Phone: Comment on above: Patient Position: Sitting; Cuff Location : Left Arm; Cuff Size: Standard 07-20-2014 08:29-0400 BSA (Body Surface Area) 1.85 m2 Fiorella Whelan [facility] Work Phone: 07-20-2014 08:29-0400 Height 156.21 cm Fiorella Whelan [facility] Work Phone: 07-20-2014 08:29-0400 Pulse (Heart Rate) 77 /min [facility]: Comment on above: Pattern: Regular 07-20-2014 08:29-0400 Respiratory Rate 16 /min Fiorella Whelan [facility] Work Phone: Comment on above: Pattern: Unlabored 07-20-2014 08:29-0400 Weight 85.33 kg Belem Hagen [facility] Medicine Work Phone: 05-04-2014 08:19-0400 BMI (Body Mass Index) 35.5 kg/m2 Agnieszka Rae RN [facility] Medicine Work Phone: 05-04-2014 08:19-0400 Body weight 86.64 kg Agnieszka Rae RN [facility] Work Phone: 05-04-2014 08:19-0400 BSA (Body Surface Area) 1.86 m2 Agnieszka Rae RN [facility] Work Phone: 05-04-2014 08:19-0400 Height 156.21 cm Agnieszka Rae RN [facility] Work Phone: 05-04-2014 08:19-0400 Weight 86.64 kg Belem Hagen [facility] Medicine Work Phone: 03-16-2014 08:19-0400 BMI (Body Mass Index) 35.5 kg/m2 Monet Holman [facility] Medicine Work Phone: 03-16-2014 08:19-0400 Body Temperature 97.7 [degF] Monet Holman [facility] Work Phone: 03-16-2014 08:19-0400 Body weight 86.64 kg Monet Holman [facility] Medicine Work Phone: 03-16-2014 08:19-0400 BP Diastolic 80 mm[Hg] Monet Holman [facility] Medicine Work Phone: Comment on above: Patient Position: Sitting; Cuff Location : Left Arm; Cuff Size: Large 03-16-2014 08:19-0400 BP Systolic 156 mm[Hg] Monet Holman [facility] Medicine Work Phone: Comment on above: Patient Position: Sitting; Cuff Location : Left Arm; Cuff Size: Large 03-16-2014 08:19-0400 BSA (Body Surface Area) 1.86 m2 Monet Holman [facility] Medicine Work Phone: 03-16-2014 08:19-0400 Height 156.21 cm Monet Holman [facility] Work Phone: 03-16-2014 08:19-0400 Pulse (Heart Rate) 76 /min Monet Holman [facility] Work Phone: Comment on above: Pattern: Regular 03-16-2014 08:19-0400 Respiratory Rate 16 /min Monet Holman [facility] Medicine Work Phone: Comment on above: Pattern: Unlabored 03-16-2014 08:19-0400 Weight 86.64 kg Belem Hagen [facility] Work Phone: 12-08-2013 08:44-0500 BMI (Body Mass Index) 35.13 kg/m2 Mariely Delgado LPN [facility] Work Phone: 12-08-2013 08:44-0500 Body Temperature 97.4 [degF] Mariely Delgado LPN [facility] Work Phone: Comment on above: Method: Oral 12-08-2013 08:44-0500 Body weight 85.73 kg Mariely Delgado LPN [facility] Work Phone: 12-08-2013 08:44-0500 BP Diastolic 80 mm[Hg] Mariely Delgado LPN [facility] Work Phone: Comment on above: Patient Position: Sitting; Cuff Location : Left Arm; Cuff Size: Standard 12-08-2013 08:44-0500 BP Systolic 124 mm[Hg] Mariely Delgado LPN [facility] Work Phone: Comment on above: Patient Position: Sitting; Cuff Location : Left Arm; Cuff Size: Standard 12-08-2013 08:44-0500 BSA (Body Surface Area) 1.86 m2 Mariely Delgado JL [facility] Work Phone: 12-08-2013 08:44-0500 Height 156.21 cm Mariely Delgado JL [facility] Work Phone: 12-08-2013 08:44-0500 Pulse (Heart Rate) 86 /min Mariely Delgado LPN [facility] Work Phone: Comment on above: Pattern: Regular 12-08-2013 08:44-0500 Pulse Oximetry 98 % Belem Hagen [facility] Medicine Work Phone: Comment on above: Room air 12-08-2013 08:44-0500 Respiratory Rate 16 /min Mariely Delgado LPN [facility] Work Phone: 12-08-2013 08:44-0500 SaO2% (BldA) [Mass fraction] 98 % Mariely Delgado JL [facility]; [facility] Work Phone: Comment on above: Room air 12-08-2013 08:44-0500 Weight 85.73 kg Belem Hagen [facility] Work Phone: 11-09-2013 08:14-0500 BMI (Body Mass Index) 35.13 kg/m2 Monet Holman [facility] Work Phone: 11-09-2013 08:14-0500 Body Temperature 98.3 [degF] Monet Holman [facility] Work Phone: 11-09-2013 08:14-0500 Body weight 85.73 kg Monet Holman [facility] Work Phone: 11-09-2013 08:14-0500 BP Diastolic 90 mm[Hg] Monet Holman [facility] Work Phone: Comment on above: Patient Position: Sitting; Cuff Location : Left Arm; Cuff Size: Large 11-09-2013 08:14-0500 BP Systolic 128 mm[Hg] Monet Holman [facility] Work Phone: Comment on above: Patient Position: Sitting; Cuff Location : Left Arm; Cuff Size: Large 11-09-2013 08:14-0500 BSA (Body Surface Area) 1.86 m2 Monet Holman [facility] Work Phone: 11-09-2013 08:14-0500 Height 156.21 cm Monet Holman [facility] Work Phone: 11-09-2013 08:14-0500 Pulse (Heart Rate) 82 /min Monet Holman [facility] Medicine Work Phone: Comment on above: Pattern: Regular 11-09-2013 08:14-0500 Respiratory Rate 16 /min Monet Holman [facility] Work Phone: Comment on above: Pattern: Unlabored 11-09-2013 08:14-0500 Weight 85.73 kg Belem Hagen [facility] Work Phone: 08-17-2013 09:20-0400 BMI (Body Mass Index) 35.32 kg/m2 Fiorella Whelan [facility] Work Phone: 08-17-2013 09:20-0400 Body weight 86.18 kg Fiorella Whelan [facility] Work Phone: 08-17-2013 09:20-0400 BP Diastolic 78 mm[Hg] Fiorella Whelan [employer] [facility] Work Phone: Comment on above: Patient Position: Sitting; Cuff Location : Left Arm; Cuff Size: Standard 08-17-2013 09:20-0400 BP Systolic 124 mm[Hg] Fiorella Whelan [facility] Work Phone: Comment on above: Patient Position: Sitting; Cuff Location : Left Arm; Cuff Size: Standard 08-17-2013 09:20-0400 BSA (Body Surface Area) 1.86 m2 iForella Whelan [facility] Work Phone: 08-17-2013 09:20-0400 Height 156.21 cm Fiorella Whelan [facility] Work Phone: 08-17-2013 09:20-0400 Pulse (Heart Rate) 78 /min Fiorella Whelan [facility] Work Phone: Comment on above: Pattern: Regular 08-17-2013 09:20-0400 Respiratory Rate 18 /min Fiorella Whelan [facility] Work Phone: Comment on above: Pattern: Unlabored 08-17-2013 09:20-0400 Weight 86.18 kg Belem Hagen [facility] Work Phone: 08-06-2013 12:57-0400 BP Diastolic 88 mm[Hg] Idalia A Fast DO Work Phone: [facility] Work Phone: Comment on above: Patient Position: Sitting 08-06-2013 12:57-0400 BP Systolic 140 mm[Hg] Idalia A Fast DO Work Phone: [facility] Work Phone: Comment on above: Patient Position: Sitting 08-06-2013 12:13-0400 BMI (Body Mass Index) 35.32 kg/m2 Monet Holman [facility] Work Phone: 08-06-2013 12:13-0400 Body Temperature 96.7 [degF] Monet Holman [facility] Work Phone: 08-06-2013 12:13-0400 Body weight 86.18 kg Monet Holman [facility] Work Phone: 08-06-2013 12:13-0400 BP Diastolic 94 mm[Hg] Monet Holman [facility] Work Phone: Comment on above: Patient Position: Sitting; Cuff Location : Left Arm; Cuff Size: Large 08-06-2013 12:13-0400 BP Systolic 162 mm[Hg] Monet Holman [facility] Work Phone: Comment on above: Patient Position: Sitting; Cuff Location : Left Arm; Cuff Size: Large 08-06-2013 12:13-0400 BSA (Body Surface Area) 1.86 m2 Monet Holman [facility] Work Phone: 08-06-2013 12:13-0400 Height 156.21 cm Monet Holman [facility] Work Phone: 08-06-2013 12:13-0400 Pulse (Heart Rate) 78 /min Monet Holman [facility] Work Phone: Comment on above: Pattern: Regular 08-06-2013 12:13-0400 Respiratory Rate 18 /min Monet Holman [facility] Work Phone: Comment on above: Pattern: Unlabored 08-06-2013 12:13-0400 Weight 86.18 kg Belem Hagen [facility] Work Phone: 06-30-2013 12:03-0400 BMI (Body Mass Index) 35.12 kg/m2 Monet Holman [facility] Work Phone: 06-30-2013 12:03-0400 Body Temperature 98.1 [degF] Monet Holman [facility] Work Phone: 06-30-2013 12:03-0400 Body weight 87.09 kg Monet Holman [facility] Work Phone: 06-30-2013 12:03-0400 BP Diastolic 84 mm[Hg] Monet Holman [facility] Work Phone: Comment on above: Patient Position: Sitting; Cuff Location : Left Arm; Cuff Size: Large 06-30-2013 12:03-0400 BP Systolic 146 mm[Hg] Monet Holman [facility] Work Phone: Comment on above: Patient Position: Sitting; Cuff Location : Left Arm; Cuff Size: Large 06-30-2013 12:03-0400 BSA (Body Surface Area) 1.88 m2 Monet Holman [facility] Work Phone: 06-30-2013 12:03-0400 Height 157.48 cm Monet Holman [facility] Work Phone: 06-30-2013 12:03-0400 Pulse (Heart Rate) 78 /min Monet Holman [facility] Work Phone: Comment on above: Pattern: Regular 06-30-2013 12:03-0400 Respiratory Rate 16 /min Monet Holman [facility] Work Phone: Comment on above: Pattern: Unlabored 06-30-2013 12:03-0400 Weight 87.09 kg Belem Hagen [facility] Work Phone: 02-18-2012 11:05-0400 BMI (Body Mass Index) 34.67 kg/m2 Mariely Delgado LPN [facility] Work Phone: 02-18-2012 11:05-0400 Body Temperature 97.7 [degF] Mariely Danny PARIKH [facility] Work Phone: Comment on above: Method: Oral 02-18-2012 11:05-0400 Body weight 85.99 kg Mariely Danny PARIKH [facility] Work Phone: 02-18-2012 11:05-0400 BP Diastolic 72 mm[Hg] Mariely Danny PARIKH [facility] Work Phone: Comment on above: Patient Position: Sitting; Cuff Location : Left Arm; Cuff Size: Standard 02-18-2012 11:05-0400 BP Systolic 122 mm[Hg] Mariely Danny JL [facility] Work Phone: Comment on above: Patient Position: Sitting; Cuff Location : Left Arm; Cuff Size: Standard 02-18-2012 11:05-0400 BSA (Body Surface Area) 1.87 m2 Mariely Danny PARIKH [facility] Work Phone: 02-18-2012 11:05-0400 Height 157.48 cm Mariely Delgado JL [facility] Work Phone: 02-18-2012 11:05-0400 Pulse (Heart Rate) 64 /min Mariely Delgado JL [facility] Work Phone: Comment on above: Pattern: Regular 02-18-2012 11:05-0400 Respiratory Rate 18 /min Mariely Danny PARIKH [facility] Work Phone: Comment on above: Pattern: Unlabored 02-18-2012 11:05-0400 Weight 85.99 kg Belem Hagen [facility] Work Phone: 01-27-2012 09:14-0500 BMI (Body Mass Index) 34.75 kg/m2 Agnieszka Rae RN [facility] Work Phone: 01-27-2012 09:14-0500 Body Temperature 98.4 [degF] Agnieszka Rae RN [facility] Work Phone: Comment on above: Method: Oral 01-27-2012 09:14-0500 Body weight 86.18 kg Agnieszka Rae RN [facility] Work Phone: 01-27-2012 09:14-0500 BP Diastolic 78 mm[Hg] Agnieszka Rae RN [facility] Work Phone: Comment on above: Patient Position: Sitting; Cuff Location : Left Arm; Cuff Size: Standard 01-27-2012 09:14-0500 BP Systolic 124 mm[Hg] Agnieszka Rae RN [facility] Work Phone: Comment on above: Patient Position: Sitting; Cuff Location : Left Arm; Cuff Size: Standard 01-27-2012 09:14-0500 BSA (Body Surface Area) 1.87 m2 Agnieszka Rae RN [facility] Work Phone: 01-27-2012 09:14-0500 Height 157.48 cm Agnieszka Rae RN [facility] Work Phone: 01-27-2012 09:14-0500 Pulse (Heart Rate) 64 /min Agnieszka Rae RN [facility] Work Phone: Comment on above: Pattern: Regular 01-27-2012 09:14-0500 Respiratory Rate 16 /min Agnieszka Rae RN [facility] Work Phone: Comment on above: Pattern: Unlabored 01-27-2012 09:14-0500 Weight 86.18 kg Belem Hagen [facility] Work Phone: Encounters Encounter Date Encounter Type Care Provider Facility Start: 10-03-2025 ambulatory Formerly [facility] Facility :[facility] Start: 09-27-2025 End: 09-29-[address] VERONICA CARLISLE MD Facility:[facility] Start: 09-27-2025 End: 09-29-[address] VERONICA CARLISLE MD [facility] Start: 09-26-2025 End: 09-26-2025 ambulatory Mehul Borja Facility:[facility] Start: 08-29-2025 End: 08-29-[address] VERONICA CARLISLE MD Facility:[facility] Start: 08-29-2025 End: 08-29-[address] VERONICA CARLISLE MD [facility] Start: 08-29-2025 End: 08-29-[address] VERONICA CARLISLE MD [facility] Start: 08-29-2025 End: 08-29-[address] VERONICA CARLISLE MD Facility:[facility] Start: 08-11-2025 End: 08-11-2025 ambulatory Rayshawn Maurice [employer] Work Phone: -Laboratory Start: 08-11-2025 End: 08-11-2025 Patient encounter procedure Rayshawn Maurice [employer] -Laboratory Work Phone: Start: 08-11-2025 End: 08-11-2025 ambulatory Rayshawn Maurice Facility:[facility] Start: 07-26-2025 End: 07-26-[address] Dia Villagran MD -[facility] Work Phone: Start: 07-26-2025 End: 07-26-2025 ambulatory Rayshawn Chaudhary [employer] Work Phone: -[facility] Start: 07-21-[address] Ebre Stanley MD -[facility] Start: 07-21-2025 End: 07-21-2025 Patient encounter procedure Frances Sevilla [employer] -[facility] Work Phone: Start: 07-21-2025 End: 07-21-2025 ambulatory Rayshawn Maurice [employer] Work Phone: [facility]ly [facility] Start: 07-05-2025 End: 07-05-2025 Patient encounter procedure Rayna Bazzi [employer] -[facility] Work Phone: Start: 07-05-2025 End: 07-05-2025 ambulatory Rayshawn Maurice [employer] Work Phone: -[facility] Start: 05-31-2025 Non-patient / Non-visit Dr. Dia biggs MD -[facility] Work Phone: Start: 05-26-2025 End: 05-26-[address] Mehul Borja DO -[facility] Work Phone: Start: 05-26-2025 End: 05-26-2025 ambulatory Rayshawn Chaudhary [employer] Work Phone: [facility] Work Phone: Start: 05-23-2025 Non-patient / Non-visit [facility] Taveras [facility] Start: 05-23-2025 End: 05-23-2025 ambulatory Rayshawn Maurice [employer] Work Phone: [facility] Work Phone: Start: 05-23-2025 End: 05-23-2025 Patient encounter procedure Rayshawn Maurice [employer] -Cardiovascular Services Work Phone: Start: 05-23-2025 End: 05-23-2025 ambulatory Rayshawn Guzmanam Facility:[facility] Start: 04-29-2025 End: 04-29-2025 ambulatory Rayshawn Maurice [employer] Work Phone: [facility] Work Phone: Start: 04-29-2025 End: 04-29-2025 Patient encounter procedure Rayshawn Maurice [employer] -Laboratory Work Phone: Start: 04-29-2025 End: 04-29-2025 ambulatory Rayshawn Guzmanam Facility:[facility] Start: 04-26-2025 End: 04-26-2025 ambulatory Rayshawn Guzmanam [employer] Work Phone: [facility] Work Phone: Start: 04-26-2025 End: 04-26-2025 Patient encounter procedure Rayshawn Maurice [employer] -Laboratory Work Phone: Start: 04-26-2025 End: 04-26-2025 ambulatory Rayshawn Guzmanam Facility:[facility] Start: 04-23-2025 End: 04-23-2025 Emergency department patient visit Dr. Shaun Noriega DO -Emergency Department Work Phone: Start: 04-21-2025 End: 04-21-2025 Patient encounter procedure Frances Sevilla [employer] -[facility] Work Phone: Start: 04-21-2025 End: 04-21-2025 ambulatory Frances Sevilla [employer]ER Facility:[facility] Start: 04-20-[address] Eber Stanley MD -Radiation Oncology Start: 04-20-2025 End: 04-20-[address] Mehul Borja DO [facility] Work Phone: Start: 04-20-2025 Non-patient / Non-visit Dr. Mehul davis DO [facility] Work Phone: Start: 04-20-2025 End: 04-20-2025 ambulatory Rayshawn Chaudhary [employer] Work Phone: [facility] Work Phone: Start: 04-11-2025 ambulatory Mehul Huong Facility: [facility] Start: 04-11-2025 Non-patient / Non-visit Dr. Mehul davis DO [facility] Start: 04-11-2025 End: 04-11-2025 Emergency department patient visit Rayshawn Chaudhary [employer] Work Phone: -Emergency Department Work Phone: Start: 04-08-2025 ambulatory Mehul Borja Facility: [facility] Start: 04-08-2025 Non-patient / Non-visit Dr. Mehul davis DO [facility] Start: 04-08-[address] Eber Stanley MD -Radiation Oncology Start: 04-07-2025 ambulatory Mehul Borja Facility: [facility] Start: 04-07-2025 Non-patient / Non-visit Dr. Mehul davis DO [facility] Start: 04-07-2025 End: 04-07-2025 Emergency department patient visit Rayshawn Chaudhary [employer] Work Phone: -Emergency Department Work Phone: Start: 04-05-2025 ambulatory Rayshawn Chaudhary Facility :[facility] Start: 04-05-2025 Non-patient / Non-visit Dr. Mehul davis DO [facility] Start: 04-04-2025 End: 04-04-2025 Emergency department patient visit Rayshawn Chaudhary [employer] Work Phone: -Emergency Department Work Phone: Start: 04-04-2025 End: 04-04-2025 Patient encounter procedure Rayna Bazzi [employer]C -[facility] Work Phone: Start: 04-04-2025 End: 04-04-2025 ambulatory Rayna Bazzi [employer] IN[employer]ER Facility:[facility] Start: 03-30-2025 ambulatory Mehul Borja Facility: [facility] Start: 03-30-2025 Non-patient / Non-visit Dr. Mehul davis DO -[facility] Start: 03-30-[address] Eber Stanley MD -Radiation Oncology Start: 03-25-2025 End: 03-25-2025 Patient encounter procedure Dr. Mehul Borja DO Formerly [facility] Work Phone: Start: 03-25-2025 End: 03-25-2025 ambulatory Mehul Borja [facility] Start: 03-16-2025 End: 03-16-[address] Ximena Stanley MD Formerly [facility] Work Phone: Start: 03-16-2025 End: 03-16-2025 ambulatory Ximena Stanley Facility[facility] Start: 03-15-2025 Non-patient / Non-visit Sukhwinderreina Velázquezjennifer [facility] Work Phone: Start: 03-15-2025 ambulatory Demetra Lorenzo Facility [facility] Start: 03-09-2025 End: 03-09-[address] Branden Lance MD -[facility] Work Phone: Start: 03-09-2025 End: 03-09-2025 ambulatory Branden Lance Facility[facility] Start: 02-22-2025 ambulatory Branden Sherman lity:[facility] Start: 02-22-2025 Non-patient / Non-visit Dr. Rosa Lance MD -[facility] Start: 02-22-2025 End: 02-22-2025 Admission to same day surgery center Dr. Branden Lance MD -[facility] Start: 02-22-2025 End: 02-22-2025 ambulatory Rayshawn Chaudhary HARNESS INSTALLER-C Work Phone: [facility] Work Phone: Start: 02-18-2025 End: 02-18-2025 ambulatory Luis Carlos Zuluaga Facility[facility] Start: 02-18-2025 End: 02-18-2025 Non-patient / Non-visit Dr. Luis Carlos Zuluaga MD -[facility] Work Phone: Start: 02-11-2025 End: 02-11-[address] Branden Lance MD -[facility] Work Phone: Start: 02-11-2025 End: 02-11-2025 ambulatory Branden Lance Facility[facility] Start: 01-28-2025 Non-patient / Non-visit Dr. Rosa Lance MD -[facility] Start: 01-28-2025 End: 01-28-2025 Admission to same day surgery center Dr. Branden Lance MD -[facility] Start: 01-28-2025 End: 01-28-2025 ambulatory Branden Lance Facility:[facility] Start: 01-18-2025 End: 01-18-[address] Branden Lance MD -[facility] Work Phone: Start: 01-18-2025 End: 01-18-2025 ambulatory Branden Lance [facility] Start: 01-12-2025 End: 01-12-2025 Patient encounter procedure Rayna Bazzi HARNESS INSTALLER-C -[facility] Work Phone: Start: 01-12-2025 End: 01-12-2025 ambulatory Rayna Bazzi HARNESS INSTALLER Facility:[facility] Start: 01-10-2025 End: 01-10-2025 Patient encounter procedure Rayna Bazzi HARNESS INSTALLER-C -Outpatient Breast Imaging Work Phone: Start: 01-10-2025 End: 01-10-2025 ambulatory Rayna Bazzi HARNESS INSTALLER Facility:[facility] Start: 01-03-2025 End: 01-03-2025 Patient encounter procedure Rayna Bazzi HARNESS INSTALLER-C -[facility] Work Phone: Start: 01-03-2025 End: 01-03-2025 ambulatory Rayna Bazzi HARNESS INSTALLER Facility:[facility] Start: 10-18-2024 End: 10-18-2024 ambulatory Rayna Bazzi HARNESS INSTALLER Facility:[facility] Start: 01-29-2024 End: 01-29-2024 ambulatory HARNESS INSTALLER-C Rayshawn Chaudhary Work Phone: [facility] Work Phone: Start: 01-29-2024 End: 01-29-2024 Patient encounter procedure HARNESS INSTALLER-C Rayshawn Chaudhary Work Phone: [facility]-Outpatient Bone Densitometry Work Phone: Start: 01-27-2024 End: 01-27-2024 Patient encounter procedure HARNESS INSTALLER-C Rayshawn Chaudhary Work Phone: [facility] Work Phone: Start: 10-20-2023 End: 10-20-2023 Patient encounter procedure HARNESS INSTALLER-C Rayshawn Chaudhary Work Phone: [facility] Work Phone: Start: 10-10-2023 End: 10-10-2023 Patient encounter procedure HARNESS INSTALLER-C Rayshawn Chaudhary Work Phone: [facility] Work Phone: Start: 10-03-2023 End: 10-03-2023 Office outpatient visit 15 minutes Rayshawn Chaudhary CNP Work Phone: [facility] Start: 07-21-2023 End: 07-21-2023 Patient encounter procedure HARNESS INSTALLER-C Rayshawn Chaudhary Work Phone: [facility] Work Phone: Start: 07-16-2023 End: 07-16-2023 ambulatory HARNESS INSTALLER-C Rayshawn Chaudhary Work Phone: [facility] Work Phone: Start: 07-16-2023 End: 07-16-2023 Patient encounter procedure HARNESS INSTALLER-C Rayshawn Chaudhary Work Phone: [facility]-Laboratory Work Phone: Start: 05-26-2023 End: 05-26-2023 Rayshawn Chaudhary CRIMINAL JUSTICE LAWYER Work Phone: [facility] Start: 05-23-2023 End: 05-23-2023 Rayshawn Chaudhary CRIMINAL JUSTICE LAWYER Work Phone: [facility] Start: 05-21-2023 End: 05-21-2023 Emergency department patient visit HARNESS INSTALLER-C Rayshawn Chaudhary Work Phone: [facility]-Emergency Department Start: 05-15-2023 End: 05-15-2023 ambulatory HARNESS INSTALLER-C Rayshawn Chaudhary Work Phone: [facility] Work Phone: Start: 05-15-2023 End: 05-15-2023 Patient encounter procedure HARNESS INSTALLER-C Rayshawn Chaudhary Work Phone: [facility] Start: 05-15-2023 End: 05-15-2023 Office outpatient visit 15 minutes Rayshawn Chaudhary CRIMINAL JUSTICE LAWYER Work Phone: [facility] Start: 04-24-2023 End: 04-24-2023 Patient encounter procedure HARNESS INSTALLER-C Rayshawn Chaudhary Work Phone: [facility] Start: 03-17-2023 End: 03-17-2023 ambulatory HARNESS INSTALLER-C Rayshawn Chaudhary Work Phone: [facility] Work Phone: Start: 03-17-2023 End: 03-17-2023 Patient encounter procedure HARNESS INSTALLER-C Rayshawn Chaudhary Work Phone: [facility]-Laboratory, Specimen Start: 03-17-2023 End: 03-17-2023 Patient encounter procedure HARNESS INSTALLER-C Rayshawn Chaudhary Work Phone: [facility] Radiology Start: 03-17-2023 End: 03-17-2023 Office outpatient visit 15 minutes Rayshawn Chaudhary CNP Work Phone: [facility] Start: 03-17-2023 ambulatory Rayshawn Chaudhary CNP [facility] Start: 03-13-2023 End: 03-13-2023 Emergency department patient visit Jamarcus Benoit [facility] Emergency 12 Start: 03-10-2023 End: 03-10-2023 Emergency department patient visit HARNESS INSTALLER-C [facility]ayshawn [facility]ary [facility] Start: 03-08-2023 End: 03-09-2023 Emergency department patient visit HARNESS INSTALLER-Melissa [facility]audhary [facility] Start: 01-23-2023 End: 01-23-2023 Patient encounter procedure HARNESS INSTALLER-C Rayshawn Chaudhary Work Phone: [facility] Start: 12-24-2022 End: 12-24-2022 Office outpatient visit 15 minutes Rayshawn Chaudhary CNP Work Phone: [facility] Start: 11-11-2022 End: 11-11-2022 Phone Encounter Rayshawn Chaudhary CNP Work Phone: [facility] Start: 11-11-2022 End: 11-11-2022 Rayshawn Chaudhary CNP Work Phone: [facility] Start: 11-07-2022 Review Rayshawn Chaudhary CNP Work Phone: [facility] Start: 11-07-2022 End: 11-07-2022 Office outpatient visit 10 minutes Rayshawn Chaudhary CNP Work Phone: [facility] Start: 10-31-2022 End: 10-31-2022 ambulatory HARNESS INSTALLER-C Belem Hagen HARNESS INSTALLER Work Phone: [facility] Work Phone: Start: 10-31-2022 End: 10-31-2022 Patient encounter procedure HARNESS INSTALLER-C Belem Hagen HARNESS INSTALLER [facility] Start: 10-08-2022 End: 10-08-2022 ambulatory HARNESS INSTALLER-C Belem Hagen HARNESS INSTALLER Work Phone: [facility] Work Phone: Start: 10-08-2022 End: 10-08-2022 Patient encounter procedure HARNESS INSTALLER-C Belem Hagen HARNESS INSTALLER [facility] Start: 09-24-2022 End: 09-24-2022 Office outpatient visit 15 minutes Rayshawn Chaudhary CRIMINAL JUSTICE LAWYER Work Phone: [facility] Start: 09-04-2022 End: 09-04-2022 Patient encounter procedure HARNESS INSTALLER-C Belem Brownleea HARNESS INSTALLER Work Phone: [facility] Start: 05-21-2022 End: 05-21-2022 Patient encounter procedure HARNESS INSTALLER-C Belem Brownleea HARNESS INSTALLER Work Phone: [facility] Start: 05-16-2022 End: 05-16-2022 Patient encounter procedure HARNESS INSTALLER-C Belem Brownleea HARNESS INSTALLER [facility] Start: 05-16-2022 End: 05-16-2022 Emergency department patient visit HARNESS INSTALLER-C Belem Brownleea HARNESS INSTALLER Work Phone: [facility]-Emergency Department Start: 03-11-2022 End: 03-11-2022 Office outpatient visit 25 minutes Belem Brownleea Work Phone: [facility] Start: 03-04-2022 End: 03-04-2022 Patient encounter procedure HARNESS INSTALLER-C Belem Brownleea HARNESS INSTALLER [facility] Start: 02-28-2022 End: 02-28-2022 Emergency department patient visit HARNESS INSTALLER-C Belem Brownleea HARNESS INSTALLER Work Phone: [facility]-Emergency Department Start: 02-26-2022 End: 02-26-2022 Patient encounter procedure HARNESS INSTALLER-C Belem Brownleea HARNESS INSTALLER [facility] Start: 02-25-2022 End: 02-25-2022 Patient encounter procedure HARNESS INSTALLER-C Belem Hagen HARNESS INSTALLER Work Phone: [facility] Start: 01-27-2022 End: 01-27-2022 Patient encounter procedure Belem Hagen CRIMINAL JUSTICE LAWYER Work Phone: [facility] Start: 01-27-2022 End: 01-27-2022 Rayshawn Maurice CRIMINAL JUSTICE LAWYER Work Phone: [facility] Start: 01-26-2022 End: 01-26-2022 Patient encounter procedure HARNESS INSTALLER-C Belem Hagen HARNESS INSTALLER [facility] Start: 12-12-2021 End: 12-12-2021 Patient encounter procedure HARNESS INSTALLER-C Belem Hagen HARNESS INSTALLER [facility] Flr Start: 12-11-2021 End: 12-11-2021 Office outpatient visit 15 minutes Belem Hagen CRIMINAL JUSTICE LAWYER Work Phone: [facility] Start: 12-03-2021 End: 12-03-2021 Patient encounter procedure HARNESS INSTALLER-C Belem Hagen HARNESS INSTALLER [facility] Start: 11-19-2021 End: 11-19-2021 Patient encounter procedure HARNESS INSTALLER-C Belem Hagen HARNESS INSTALLER Work Phone: [facility] Start: 09-26-2021 End: 09-26-2021 Office outpatient visit 25 minutes Belem Hagen CRIMINAL JUSTICE LAWYER Work Phone: [facility] Start: 06-08-2021 End: 06-08-2021 Office outpatient visit 25 minutes Belem Jyothiesa CRIMINAL JUSTICE LAWYER Work Phone: [facility] Start: 02-19-2021 End: 02-19-2021 Office outpatient visit 25 minutes Belem Roeesa [facility] Start: 01-30-2021 End: 01-30-2021 Office outpatient visit 10 minutes Belem Roeesa [facility] Start: 01-03-2021 End: 01-03-2021 Office outpatient visit 10 minutes Belem Hagen [facility] Start: 10-23-2020 Review Belem Holloway [facility] Start: 10-23-2020 End: 10-23-2020 Office outpatient visit 25 minutes Belem Hagne [facility] Start: 10-23-2020 Review Belem Holloway [facility] Start: 09-18-2020 End: 09-18-2020 Office outpatient visit 15 minutes Belem Brownleegurjit [facility] Start: 06-21-2020 End: 06-21-2020 Office outpatient visit 25 minutes Belem Hagen [facility] Start: 03-01-2020 End: 03-01-2020 Office outpatient visit 5 minutes Belem Brownleegurjit [facility] Start: 02-28-2020 End: 02-28-2020 Office outpatient visit 10 minutes Belem Brownleegurjit [facility] Start: 10-14-2019 End: 10-14-2019 Office outpatient visit 15 minutes Belem Brownleegurjit [facility] Start: 10-14-2019 Review Belem Holloway [facility] Start: 12-06-2018 End: 12-06-2018 Annotation/Addendum Belem Hagen [facility] Start: 12-06-2018 End: 12-06-2018 Rayshawn Chaudhary CNP Work Phone: [facility] Start: 12-02-2018 End: 12-02-2018 Office outpatient visit 15 minutes Belem Hagen [facility] Start: 07-28-2018 End: 07-28-2018 Annotation/Addendum Belem Hagen [facility] Start: 07-28-2018 End: 07-28-2018 Rayshawn Chaudhary CNP Work Phone: [facility] Start: 07-27-2018 End: 07-27-2018 Office outpatient visit 25 minutes Belem Brownleegurjit [facility] Start: 11-04-2017 End: 11-04-2017 Office outpatient visit 10 minutes Belem Kemgurjit [facility] Start: 10-16-2017 End: 10-16-2017 Office outpatient visit 15 minutes Belem Brownleegurjit [facility] Start: 07-21-2017 End: 07-21-2017 Annotation/Addendum Belem Brownleea [facility] Start: 07-21-2017 End: 07-21-2017 Rayshawn Chaudhary CNP Work Phone: [facility] Start: 07-18-2017 End: 07-18-2017 Office outpatient visit 15 minutes Belem Hagen [facility] Start: 12-17-2016 End: 12-17-2016 Annotation/Addendum Belem Hagen [facility] Start: 12-17-2016 End: 12-17-2016 Rayshawn Chaudhary CNP Work Phone: [facility] Start: 12-16-2016 End: 12-16-2016 Office outpatient visit 15 minutes Belem Hagen [facility] Start: 09-23-2016 End: 09-23-2016 Office outpatient visit 15 minutes Belem Hagen [facility] Start: 08-07-2016 End: 08-07-2016 Phone Encounter Belem Hagen [facility] Start: 08-07-2016 End: 08-07-2016 Rayshawn Chaudhary CNP Work Phone: [facility] Start: 08-06-2016 End: 08-06-2016 Patient encounter procedure Belem Brownleea [facility] Start: 08-06-2016 End: 08-06-2016 Rayshawn Chaudhary CNP Work Phone: [facility] Start: 05-02-2016 End: 05-02-2016 Patient encounter procedure Belem Brownleea [facility] Start: 05-02-2016 End: 05-02-2016 Rayshawn Chaudhary CNP Work Phone: [facility] Start: 04-30-2016 End: 04-30-2016 Phone Encounter Belem Hagen [facility] Start: 04-30-2016 End: 04-30-2016 Rayshawn Chaudhary CNP Work Phone: [facility] Start: 04-19-2016 End: 04-19-2016 Office outpatient visit 15 minutes Belem Hagen [facility] Start: 03-14-2016 End: 03-14-2016 Office outpatient visit 15 minutes Belem Brownleea [facility] Start: 03-11-2016 End: 03-11-2016 Office outpatient visit 25 minutes Belem Brownleea [facility] Start: 11-03-2015 End: 11-03-2015 Office outpatient visit 10 minutes Belem Roeesa [facility] Start: 10-09-2015 End: 10-09-2015 Office outpatient visit 25 minutes Belem Ciesa [facility] Start: 06-21-2015 End: 06-21-2015 Office outpatient visit 15 minutes Belem Hagen [facility] Start: 05-31-2015 End: 05-31-2015 Office outpatient visit 15 minutes Belem Hagen [facility] Start: 02-15-2015 End: 02-16-2015 Office outpatient visit 25 minutes Belem Hagen [facility] Start: 10-19-2014 End: 10-20-2014 Office outpatient visit 25 minutes Belem Hagen [facility] Start: 09-12-2014 End: 09-12-2014 Phone Encounter Belem Hagen [facility] Start: 09-12-2014 End: 09-12-2014 Rayshawn Chaudhary CNP Work Phone: [facility] Start: 07-20-2014 End: 07-20-2014 Office outpatient visit 25 minutes Belem Hagen [facility] Start: 05-04-2014 End: 05-04-2014 Patient encounter procedure Rayshawn Chaudhary CNP Work Phone: [facility] Start: 05-04-2014 End: 05-04-2014 Phone Encounter Belem Hagen [facility] Start: 05-04-2014 End: 05-04-2014 Rayshawn Chaudhary CNP Work Phone: [facility] Start: 03-21-2014 End: 03-21-2014 Phone Encounter Belem Hagen [facility] Start: 03-21-2014 End: 03-21-2014 Rayshawn Chaudhary CNP Work Phone: [facility] Start: 03-16-2014 End: 03-16-2014 Patient encounter procedure Belem Hagen [facility] Start: 03-16-2014 End: 03-16-2014 Rayshawn Chaudhary CNP Work Phone: [facility] Start: 12-08-2013 End: 12-08-2013 Office outpatient visit 15 minutes Belem Hagen [facility] Start: 11-09-2013 End: 11-09-2013 Patient encounter procedure Belem Hagen [facility] Start: 11-09-2013 End: 11-09-2013 Rayshawn Chaudhary CNP Work Phone: [facility] Start: 08-17-2013 End: 08-17-2013 Office outpatient visit 15 minutes Belem Hagen [facility] Start: 08-16-2013 End: 08-16-2013 Annotation/Addendum Belem Hagen [facility] Start: 08-16-2013 End: 08-16-2013 Rayshawn Chaudhary CRIMINAL JUSTICE LAWYER Work Phone: [facility] Start: 08-06-2013 End: 08-08-2013 Patient encounter procedure Belem Hagen [facility] Start: 08-06-2013 End: 08-08-2013 Rayshawn Chaudhary CRIMINAL JUSTICE LAWYER Work Phone: [facility] Start: 06-30-2013 End: 07-01-2013 Patient encounter procedure Belem Hagen [facility] Start: 06-30-2013 End: 07-01-2013 Rayshawn Chaudhary CRIMINAL JUSTICE LAWYER Work Phone: [facility] Start: 02-18-2012 End: 02-18-2012 Patient encounter procedure Belem Hagen [facility] Start: 02-18-2012 End: 02-18-2012 Rayshawn Chaudhary CRIMINAL JUSTICE LAWYER Work Phone: [facility] Start: 01-27-2012 End: 01-27-2012 Office outpatient new 45 minutes Belem Hagen [facility] Patient encounter procedure Afshin Sanchez LPN [facility] Work Phone: Patient encounter procedure Afshin Sanchez DEPUTY BAILIFF [facility] Work Phone: Patient encounter procedure Samantha Goodman MA [facility] Work Phone: Patient encounter procedure Marry Marroquin LPN [facility] Work Phone: Patient encounter procedure Marry Marroquin LPN [facility] Work Phone: Patient encounter procedure Citlali Gonzalez LPN [facility] Work Phone: Patient encounter procedure Sea Parry CMA [facility] Work Phone: Patient encounter procedure Citlali Slarb DEPUTY BAILIFF [facility] Work Phone: Patient encounter procedure Dao Bedoya DEPUTY BAILIFF [facility] Work Phone: Patient encounter procedure Fiorella Whelan [facility] Work Phone: Procedures Date Procedure Procedure Detail Performing Clinician Start: 09-27-[address] VERONICA CARLISLE MD Comment on above: ROBOTIC ASSISTED LEFT TOTAL KNEE REPLACE MENT Start: 08-11-2025 Urnls dip stick/tablet reagent auto microscopy aRyshawn Chaudhary HARNESS INSTALLER-C Work Phone: Start: 07-21-2025 Estimated creatinine clearance Rayshawn Chaudhary HARNESS INSTALLER-C Work Phone: Start: 04-29-2025 Folic acid measurement Rayshawn Chaudhary HARNESS INSTALLER-C Work Phone: Start: 04-26-2025 Total iron binding capacity measurement Rayshawn Chaudhary HARNESS INSTALLER-C Work Phone: Start: 04-23-2025 X-ray of chest, PA and lateral views Rayshawn Chaudhary HARNESS INSTALLER-C Work Phone: Start: 04-23-2025 Estimated creatinine clearance Rayshawn Chaudhary HARNESS INSTALLER-C Work Phone: Start: 04-23-2025 CT of head without contrast Rayshawn Guzman am HARNESS INSTALLER-C Work Phone: Start: 04-04-2025 X-ray of chest, PA and lateral views Rayshawn Chaudhary HARNESS INSTALLER-C Work Phone: Start: 04-04-2025 D-dimer assay, quantitative Rayshawn Guzman am HARNESS INSTALLER-C Work Phone: Comment on above: D-Dimer ELEVATED (>0.49): Additional keegan dies and clinicalassessments are indicated to conclude diagnosis of:Deep Vein Thrombosis (DVT) or Pulmonary Embolism (PE)CRITICAL VALUE CALLED TO [id number]/05/25 Sheila Littlejohn.RESULTS READ BACK BY SAME. Start: 04-04-2025 Estimated creatinine clearance Rayshawn Chaudhary HARNESS INSTALLER-C Work Phone: Start: 02-22-2025 Lumpectomy of breast Rayshawn Chaudhary HARNESS INSTALLER-C Work Phone: Start: 02-22-2025 Radionuclide sentinel lymph node study Rayshawn Chaudhary ALCIDES-C Work Phone: Start: 01-12-2025 Ultrasonography of breast Rayshawn Chaudhary HARNESS INSTALLER-C Work Phone: Start: 01-10-2025 Screening mammography Rayshawn Chaudhary HARNESS INSTALLER-C Work Phone: Start: 01-29-2024 Dual energy X-ray absorptiometry HARNESS INSTALLER-C Rayshawn Chaudhary Work Phone: Start: 10-10-2023 CT of abdomen HARNESS INSTALLER-C Rayshawn Chaudhary Work Phone: Start: 07-21-2023 End: 07-21-2023 Procedure Note: See Note; NOTES: [facility] 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 Body Assembly Required: No Is patient in pain?: No Allergies sulfamethoxazole [From Bactrim] Allergy (Mild, Verified 07/21/23 12:53) Other trimethoprim [From Bactrim] Allergy (Mild, Verified 07/21/23 12:53) Other chlorhexidine [From ChloraPrep Clear] Allergy (Verified 07/21/23 12:53) Rash isopropyl alcohol [From ChloraPrep Clear] Allergy (Verified 07/21/23 12:53) Rash potassium clavulanate [From Augmentin] Allergy (Verified 07/21/23 12:53) Rash amoxicillin trihydrate [From Augmentin] Adverse Reaction (Verified 07/21/23 12:53) Rash Medications estradiol 0.01% (0.1 mg/gram) vaginal cream (Estrace) 1 g vaginal MOFR 12/17/17 [History Confirmed 07/21/23] glucosamine HCl 500 mg tablet 500 mg PO DAILY 01/05/19 [History Confirmed 07/21/23] triamcinolone acetonide 0.5 % topical cream 1 applic topical BID 7 days #15 grams 07/20/20 [Rx Confirmed 07/21/23] levothyroxine 25 mcg tablet (Synthroid) 25 mcg PO DAILY 02/25/22 [History Confirmed 07/21/23] fenofibric acid (choline) 135 mg capsule,delayed release 135 mg PO DAILY 02/28/22 [History Confirmed 07/21/23] calcium carbonate 600 mg-vitamin D3 10 mcg (400 unit) chewable tablet (Calcium 600 with Vitamin D3) tab PO 06/05/22 [History Confirmed 07/21/23] d-mannose 500 mg capsule mg PO 06/05/22 [History Confirmed 07/21/23] meclizine 25 mg tablet 25 mg PO DAILY PRN 06/05/22 [History Confirmed 07/21/23] hydrocodone-acetaminophen 5-325mg 5mg-325mg 1 tab PO Q6H PRN PRN Pain 3 days #10 TABLETS 03/09/23 [Rx Confirmed 07/21/23] ondansetron 4 mg disintegrating tablet 8 mg (2 x 4 mg) PO Q8H PRN PRN Nausea #20 tabs 03/09/23 [Rx Confirmed 07/21/23] pantoprazole 40 mg tablet,delayed release 40 mg PO DAILY #14 tabs 03/09/23 [Rx Confirmed 07/21/23] boric acid 10 % topical ointment ea topical 04/24/23 [History Confirmed 07/21/23] oxyquinoline 0.025 %-sodium lauryl sulfate 0.01 % vaginal gel (Trimo-Colon Jelly) 1 ea vaginal WE #113.4 grams 05/20/23 [Rx Confirmed 07/21/23] Is last menstrual period known: No Post menopausal: Yes Patient : No : No PFSH Medical History GERD (gastroesophageal reflux disease) Hyperlipidemia Osteoporosis Vertigo Vision loss of left eye Vision loss of right eye Surgical History H/O tubal ligation Family History Father Heart disease CVA (cerebral vascular accident) Social History Smoking Status: Never smoker alcohol intake: current details: social substance use type: does not use caffeine: Yes frequency: 1-2 times per week seatbelt use: always do you feel safe at home: Yes 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 HPI 3 mo fu Details: ALISTAIR ARECHIGA is a 77 year old who presents for pessary maintenance; denies concerns History 3 Elective abortions Hx Para 3 Spontaneous abortions Hx # Term Pregnancies Ectopic pregnancies Hx # Pregnancies Multiple births # of living children Past Pregnancies Del. Date Name GA/Weeks Outcome Route Bth Weight Gen Labor Lgth Anesthesia Del [facility] Provider FOB Unknown 1967 [place] Unknown 1969 [facility] Unknown 1970 [facility] ROS Const Constitutional: Reports system reviewed and no additional complaints, except as documented Eyes Eyes: Reports system reviewed and no additional complaints, except as documented GI GI: Denies abdominal pain or change in bowel habits : Reports as per HPI Exam Const General: cooperative and no acute distress Orientation: oriented x3 External Female Exam: normal external appearance Speculum Exam - Vagina: vagina atrophic Other: donut pessary removed. No excoriations, bleeding or unusual discharge. Partial suppository noted in vagina. Stable prolapse. Pessary cleaned and easily replaced with trimosan gel. Patient tolerated well. Coding Level of Care Code Off vis,est,level 3 Diagnoses Encounter for pessary maintenance Z46.89 Cystocele and rectocele with incomplete uterovaginal prolapse N81.2 Vaginal pessary in situ Z92.89 Assessment and Plan Assessment and Plan (1) Encounter for pessary maintenance: Status: Acute (2) Cystocele and rectocele with incomplete uterovaginal prolapse: Status: Chronic Comment: stable (3) Vaginal pessary in situ: Status: Acute Comment: #3 donut:no syringe needed Plan Reviewed S S infection RTO 3 mo 07/21/23 1309 <Electronically signed by Rayna Ashkum HARNESS INSTALLER HARNESS INSTALLER-C> Date Rayna Ashkum HARNESS INSTALLER HARNESS INSTALLER-C Cosigner Signature: Date (if applicable) CC: Rayshawn Chaudhary [employer] Work Phone: Start: 05-21-2023 Plain chest X-ray [employer] INST[employer]ER-[employer] Rayshawn Maurice Work Phone: Start: 05-21-2023 End: 05-21-2023 Procedure Note: See Note; NOTES: [facility] [address] [place] [address] Chest 1 View (Portable) MR#: [id number] Acct: [id number] Name: ALISTAIR ARECHIGA Rep #: [id number] : 1945 F 77 From: Patrick Kilgore MD PCP: NONA Dickerson Status: REG ER Study: Chest 1 View (Portable) Date of Exam: 05/21/23 Exam# [id number] Ordering Dr: Domenic Merrill DO STUDY: X-RAY CHEST REASON FOR EXAM: Female, 77 years old. Chest pain/pressure TECHNIQUE: Single AP portable view of the chest. COMPARISON: 05/16/2022 FINDINGS: EKG leads overlie the chest The lungs are clear and expanded. There is no demonstrated pleural abnormality. Normal size heart. Normal mediastinum and es. Normal visualized pulmonary arteries. Normal visualized aortic arch and descending thoracic aorta. There are diffuse degenerative changes of the visualized thoracic spine. Normal visualized ribs, clavicles, and shoulders. There is no demonstrated abnormality of the visualized soft tissue structures of the upper abdomen. RAD/Chest 1 View (Portable) IMPRESSION: No acute pulmonary process Electronically Signed: Elmer Kilgore MD at 12:10 EDT , CC: NONA Chaudhary; Dr. Domenic Merrill DO Insole Lip Turner: Signed Rayshawn Chaudhary CNP Work Phone: Start: 05-21-2023 End: 05-21-2023 Procedure Note: See Note; NOTES: [facility] Medical Records Department [address] [place] [address] Emergency Department Summary 05/21/23 MR#: [id number] Acct: [id number] Name: ALISTAIR ARECHIGA Rep #: [id number] : 1945 77 From: Domenic Merrill DO PCP: NONA Dickerson Status:REG ER Location: ED HPI History of Present Illness Chief Complaint: Abd Pain [facility] Medical History GERD (gastroesophageal reflux disease) Hyperlipidemia Osteoporosis Vertigo Vision loss of left eye Vision loss of right eye Home Medications estradiol 0.01% (0.1 mg/gram) vaginal cream (Estrace) 1 g vaginal MOFR 12/17/17 [History Last Taken 02/25/22] glucosamine HCl 500 mg tablet 500 mg PO DAILY 01/05/19 [History Last Taken 02/27/22] triamcinolone acetonide 0.5 % topical cream 1 applic topical BID 7 days #15 grams 07/20/20 [Rx Last Taken 02/26/22] levothyroxine 25 mcg tablet (Synthroid) 25 mcg PO DAILY 02/25/22 [History Last Taken 02/28/22] fenofibric acid (choline) 135 mg capsule,delayed release 135 mg PO DAILY 02/28/22 [History Last Taken 02/27/22] calcium carbonate 600 mg-vitamin D3 10 mcg (400 unit) chewable tablet (Calcium 600 with Vitamin D3) tab PO 06/05/22 [History Last Taken Unknown] d-mannose 500 mg capsule mg PO 06/05/22 [History Last Taken Unknown] meclizine 25 mg tablet 25 mg PO DAILY PRN 06/05/22 [History Last Taken Unknown] hydrocodone-acetaminophen 5-325mg 5mg-325mg 1 tab PO Q6H PRN PRN Pain 3 days #10 TABLETS 03/09/23 [Rx Last Taken Unknown] ondansetron 4 mg disintegrating tablet 8 mg PO Q8H PRN PRN Nausea #20 tabs 03/09/23 [Rx Last Taken Unknown] pantoprazole 40 mg tablet,delayed release 40 mg PO DAILY #14 tabs 03/09/23 [Rx Last Taken Unknown] boric acid 10 % topical ointment ea topical 04/24/23 [History Last Taken Unknown] oxyquinoline 0.025 %-sodium lauryl sulfate 0.01 % vaginal gel (Trimo-Colon Jelly) 1 ea vaginal WE #113.4 grams 05/20/23 [Rx Last Taken Unknown] Allergy/AdvReac Type Severity Reaction Status Date / Time sulfamethoxazole Allergy Mild Other Verified 05/21/23 10:51 [From Bactrim] trimethoprim [From Bactrim] Allergy Mild Other Verified 05/21/23 10:51 chlorhexidine Allergy Rash Verified 05/21/23 10:52 [From ChloraPrep Clear] isopropyl alcohol Allergy Rash Verified 05/21/23 10:52 [From ChloraPrep Clear] potassium clavulanate Allergy Rash Verified 05/21/23 10:51 [From Augmentin] amoxicillin trihydrate AdvReac Rash Verified 05/21/23 10:51 [From Augmentin] Family History Father Heart disease CVA (cerebral vascular accident) Surgical History H/O tubal ligation Social History Smoking Status: Never smoker alcohol intake: current details: social substance use type: does not use caffeine: Yes frequency: 1-2 times per week seatbelt use: always do you feel safe at home: Yes 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 EXAM Physical Exam Const Vital Signs: 05/21/23 10:49 05/21/23 12:50 Temperature 97.3 F L Temperature Source Temporal Pulse Rate 85 68 Respiratory Rate 16 16 Blood Pressure 183/103 H 139/67 H Blood Pressure Mean 129 91 Pulse Ox 99 100 Oxygen Delivery Method Room Air Room Air [facility] Narrative Medical decision making narrative: HISTORY OF PRESENT ILLNESS: 77-year-old female here with diffuse abdominal pain. She notes pain is epigastric rating to her back. Not associated syncope or chest pain. Denies any cough or shortness of breath. States is worse with lying flat. Is not worse after food. Denies history abdominal surgeries. States he does have history of GERD. Denies any melena or hematochezia. Denies any constipation diarrhea. Denies any urinary complaints vaginal bleeding or discharge. Patient denies sudden onset of pain, no tearing sensation, no migratory symptoms, no new numbness, weakness or loss of sensation. Patient denies family history or personal history of Marfan syndrome or Keagan-Danlos. REVIEW OF SYSTEMS: Pertinent positives: Abdominal pain Pertinent negatives: Chest pain, shortness of breath or syncope PHYSICAL EXAM: Nursing triage notes reviewed, Vital signs reviewed Constitutional: please see mdm HENT: MMM Eyes: Pupils equal round and reactive to light, Extraocular muscles intact Neck: No stridor, no JVD, full neck ROM Lungs: Clear to auscultation, No wheezing or rales. No increased work of breathing, no conversational dyspnea, no accessory muscle use, no nasal flaring. No respiratory distress noted Heart: Regular rate and rhythm, No murmurs, No rubs and No gallops, 2+ distal pulses (radial, femoral, posterior tibial) in all extremities Abdomen: Soft, there is no tenderness, rigidity, rebound or guarding, no obvious peritoneal signs, no palpable pulsatile abdominal masses, no auscultated abdominal bruit : No CVAT Extremities: No edema Neuro: No focal neurological deficits, cranial nerves II through XII intact, 5/5 strength in all extremities. Intact sensation to light touch in all extremities, 2+ reflexes bilateral patella tendons. Normal gait. No ataxia. Skin: No rash or lesions noted MEDICAL DECISION MAKING: Chief Complaint: Abdominal pain External records reviewed: CT scan abdomen pelvis from 05/15/2023 is remarkable for no definitive abnormality seen Factors affecting care: GERD, hypothyroidism Social determinants of health: Elderly History obtained from others: The patient's Consults: none ALL IMAGES (IF OBTAINED) HAVE BEEN PERSONALLY REVIEWED AND INTERPRETED BY MYSELF. MDM Narrative: The patient was hemodynamically stable, afebrile, nontoxic-appearing. There is no stigmata of aortic pathology. She has symmetric pulses. There is no pulsatile abdominal masses or auscultated bruits. I considered the following differential diagnosis: ACS, arrhythmia, anemia, pancreatitis, hepatobiliary obstruction, gastritis, esophagitis I was less concerned about acute surgical abdominal processes o such as obstruction or perforation given recent negative CT scan. The patient abdominal exam was also reassuring. She was treated with medicines to empirically treat gastric irritation including Carafate and Pepcid. I suspect patient suffering from reflux. However she is elderly and postmenopausal so obtained a broad lab work-up to further elucidate the etiology patient complaints including ruling out ACS, arrhythmia and other mentioned differentials. Labs were remarkable for mild inflammation in the pancreas however there is no evidence of hepatobiliary obstruction. No evidence of significant systemic inflammation UTI myocardial ischemia. EKG had no evidence of arrhythmia. Chest x-ray was unremarkable. Patient's presentation clinically is most consistent with likely gastritis there also may be component of very mild pancreatic inflammation causing additional pain. Bowel rest was instructed and GI follow-up was recommended. The patient and/or family, caregivers express understanding. The patient and/or family, caregivers agrees with the plan. Total critical care time today provided was at least 0 minutes. This excludes separately billable procedures. Critical care time (if documented) is secondary to the patient having high probability of clinically significant/life threatening deterioration in the patient's condition which required my urgent intervention. Shared decision making: I will have a discussion with the patient and or visitors regarding risk/benefits of further testing or admission. They will be made aware of of the risk/benefits inherent in this decision they will be given the opportunity to voice understanding. Lab Data Attestation: I reviewed the patient's lab results. Lab results narrative: EKG with normal sinus rhythm, normal axis, normal intervals, no ST or T wave changes to suggest ischemia. No evidence of WPW, [place]rug[place], ARVD. CBC without leukocytosis, severe anemia, no thrombocytopenia. BMP without significant [place] abnormalities, no anion gap to suggest endorgan hypoperfusion, baseline renal insufficiency, LFTs show no evidence of hepatobiliary pathology. Lipase only mildly elevated is not consistent with acute pancreatitis may be a cause for the patient's pain Urinalysis shows no evidence of urinary inflammation suggestive of UTI Troponin is negative, no evidence of myocardial ischemia Labs: Laboratory Results - last 24 hr 05/21/23 05/21/23 05/21/23 11:13 11:33 11:33 WBC 6.2 RBC 4.73 Hgb 13.2 Hct 42.4 MCV 89.6 MCH 27.9 MCHC 31.1 L RDW Std Deviation 48.1 H RDW Coeff of Kimi 14.6 Plt Count 338 MPV 9.0 Immature Gran % (Auto) 0.200 Neut % (Auto) 57.4 Lymph % (Auto) 31.6 [place] % (Auto) 7.9 Eos % (Auto) 1.8 Baso % (Auto) 1.1 H Absolute Neuts (auto) 3.6 Absolute Lymphs (auto) 1.96 Nucleated RBC % 0 Sodium 141 Potassium 4.0 Chloride 109 H Carbon Dioxide 26.0 Anion Gap 6 BUN 18 Creatinine 1.30 H Estim Creat Clear Calc 27.78 Est GFR (MDRD) Af Amer 51 L Est GFR (MDRD) Non-Af 42 L BUN/Creatinine Ratio 13.8 Glucose 97 Calcium 9.4 Total Bilirubin 0.40 Direct Bilirubin 0.16 AST 20 ALT 27 Alkaline Phosphatase 32 L Troponin I High Sens 7 Total Protein 7.7 Albumin 3.8 Globulin 3.9 Lipase 83 H Urine Color Yellow Urine Clarity Sl. Cloudy Urine pH 6.0 Ur Specific [place] 1.015 Urine Protein Negative Urine Glucose (UA) Normal Urine Ketones Negative Urine Occult Blood Negative Urine Nitrite Negative Urine Bilirubin Negative Urine Urobilinogen Normal Ur Leukocyte Esterase 25 H Urine RBC 0 SEEN Urine WBC 0-5 SEEN Ur Squamous Epith Cells 0-5 SEEN Urine Bacteria 0 SEEN Urine Mucus 0 SEEN Radiography Diagnostic Testing: Clinical Impression(s) from Imaging Studies Chest X-Ray 05/21/23 11:27 IMPRESSION: No acute pulmonary process Electronically Signed: Elmer Kilgore MD at 12:10 EDT , I have personally reviewed the patient's chest x-ray. Chest x-ray is unremarkable for pulmonary edema, pneumothorax, pneumonia or focal cardiopulmonary abnormality. Discharge Plan Triage Chief Complaint: Abd Pain ED Provider: Domenic Merrill Dx/Rx/DC Orders Clinical Impression: Abdominal pain, acute, epigastric, Acute inflammation of the pancreas Instructions: ED Pancreatitis Prescriptions: No Action estradiol [Estrace] 0.01 % (0.1 mg/gram) cream 1 g VAGINAL MOFR glucosamine HCl 500 mg tablet 500 mg PO DAILY triamcinolone acetonide 0.5 % cream 1 applic topical BID 7 Days Qty: 15 2RF Rx Instructions: peasized amount as instructed levothyroxine [Synthroid] 25 mcg tablet 25 mcg PO DAILY meclizine 25 mg tablet 25 mg PO DAILY PRN Calcium 600 with Vitamin D3 600 mg-10 mcg (400 unit) tablet,chewable PO d-mannose 500 mg capsule PO boric acid 10 % ointment topical fenofibric acid (choline) 135 mg capsule,delayed release(DR/EC) 135 mg PO DAILY Label Comments: Take 1 Capsule by mouth daily hydrocodone-acetaminophen [hydrocodone-acetaminophe n] 5-325 mg tablet 1 tab PO Q6H PRN PRN (Reason: Pain) 3 Days Qty: 10 0RF pantoprazole 40 mg tablet,delayed release (DR/EC) 40 mg PO DAILY Qty: 14 0RF ondansetron [ondansetron] 4 mg tablet,disintegrating 8 mg PO Q8H PRN PRN (Reason: Nausea) Qty: 20 0RF Trimo-Colon Jelly 0.025-0.01 % gel 1 ea VAGINAL WE Qty: 113.4 2RF Primary Care Provider: Rayshawn Chaudhary Referrals: Ron Cabral DO [Med Staff - Active Staff] - Rayshawn Chaudhary HARNESS INSTALLER-C [Primary Care Provider] - Activity Restrictions/Additional Instructions: Thank you for trusting us with your care today! Please take Tylenol (2 pills, 650 mg), ibuprofen (2 pills, 400 mg) every 6 hours as needed for pain and fever control. While not definitive your pancreas enzyme was elevated this could lead to pain in the top of your abdomen. The treatment for this is bowel rest. This is accomplished by decreasing oral intake to either fasting or clear liquids and then advancing slowly as your pain will tolerate. Please return to the emergency department if your symptoms change or worsen. Please follow with your primary care physician for further outpatient evaluation and management. Disposition Disposition: Home, Self Care What to do if you have Problems For any increased pain, shortness of breath, bleeding, nausea or vomiting, chest pain, or any unexpected problems, contact your Primary Care Provider. Call [facility] ([phone]) or report to the closest Emergency Room. Call 911 if necessary. 05/21/23 0547 <Electronically signed by Domenic Merrill DO> Cosigner Signature (if applicable): CC: NONA Chaudhary Signed Rayshawn Chaudhary CNP Work Phone: Start: 05-15-2023 Computed tomography of abdomen and pelvis with contrast NONA Chaudhary Work Phone: Start: 05-15-2023 End: 05-15-2023 Procedure Note: See Note; NOTES: [facility] [address] [place] [address] Abdomen/Pelvis WITH Contrast MR#: [id number] Acct: [id number] Name: ALISTAIR ARECHIGA Rep #: [id number] : 1945 F 77 From: John alarcon MD PCP: NONA Dickerson Status: REG CLI Study: Abdomen/Pelvis WITH Contrast Date of Exam: Exam# [id number] Ordering Dr: Omayra Parham DO STUDY: CT ABDOMEN AND PELVIS WITH CONTRAST REASON FOR EXAM: Female, 77 years old. abdominal pain RADIATION DOSAGE (If Supplied By Facility): CTDIvol = ( 15.37 ) mGy, DLP = ( 917.98 ) mGycm TECHNIQUE: Transaxial images were obtained from the dome of the diaphragm to the symphysis pubis with oral contrast. IV 100mL Isovue-300 was administered. Sagittal and coronal images were reconstructed. Individualized dose optimization techniques were used for this CT. COMPARISON: 06/27/2013. FINDINGS: The visualized lung bases are unremarkable. The visualized portions of the heart are within normal limits. Normal liver. Normal gallbladder and extrahepatic biliary system. Normal spleen. Normal pancreas. Normal bilateral adrenal glands. Normal right kidney. Left kidney has a stable 6 cm mid renal simple cyst, otherwise normal left kidney. Normal visualized stomach. Normal small intestine. There are multiple colonic diverticula consistent with diverticulosis. The appendix is visualized and appears normal. Normal abdominal aorta. Normal inferior vena cava. Normal retroperitoneum. Nondistended urinary bladder. There is atrophy of the uterus. A pessary is seen in place. Normal abdominal wall. There are diffuse degenerative changes of the visualized lumbar spine. CT/Abdomen/Pelvis WITH Contrast IMPRESSION: No definite acute or significant abnormality seen. Electronically Signed: John Ward MD at 16:17 EDT , CC: NONA Chaudhary; Dr. Omayra Parham DO Insole Lip Turner: Signed Omayra Parham DO Work Phone: Start: 04-24-2023 End: 04-24-2023 Procedure Note: See Note; NOTES: [facility] 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: No Is patient in pain?: No Allergies sulfamethoxazole [From Bactrim] Allergy (Mild, Verified 04/24/23 11:24) Other trimethoprim [From Bactrim] Allergy (Mild, Verified 04/24/23 11:24) Other potassium clavulanate [From Augmentin] Allergy (Verified 04/24/23 11:24) Rash amoxicillin trihydrate [From Augmentin] Adverse Reaction (Verified 04/24/23 11:24) Rash Medications estradiol 0.01% (0.1 mg/gram) vaginal cream (Estrace) 1 g vaginal MOFR 12/17/17 [History Confirmed 04/24/23] glucosamine HCl 500 mg tablet 500 mg PO DAILY 01/05/19 [History Confirmed 04/24/23] triamcinolone acetonide 0.5 % topical cream 1 applic topical BID 7 days #15 grams 07/20/20 [Rx Confirmed 04/24/23] levothyroxine 25 mcg tablet (Synthroid) 25 mcg PO DAILY 02/25/22 [History Confirmed 04/24/23] fenofibric acid (choline) 135 mg capsule,delayed release 135 mg PO DAILY 02/28/22 [History Confirmed 04/24/23] oxyquinoline 0.025 %-sodium lauryl sulfate 0.01 % vaginal gel (Trimo-Colon Jelly) 1 ea vaginal WE 02/28/22 [History Confirmed 04/24/23] calcium carbonate 600 mg-vitamin D3 10 mcg (400 unit) chewable tablet (Calcium 600 with Vitamin D3) tab PO 06/05/22 [History Confirmed 04/24/23] d-mannose 500 mg capsule mg PO 06/05/22 [History Confirmed 04/24/23] meclizine 25 mg tablet 25 mg PO DAILY PRN 06/05/22 [History Confirmed 04/24/23] hydrocodone-acetaminophen 5-325mg 5mg-325mg 1 tab PO Q6H PRN PRN Pain 3 days #10 TABLETS 03/09/23 [Rx Confirmed 04/24/23] ondansetron 4 mg disintegrating tablet 8 mg PO Q8H PRN PRN Nausea #20 tabs 03/09/23 [Rx Confirmed 04/24/23] pantoprazole 40 mg tablet,delayed release 40 mg PO DAILY #14 tabs 03/09/23 [Rx Confirmed 04/24/23] boric acid 10 % topical ointment ea topical 04/24/23 [History Confirmed 04/24/23] [facility] Medical History GERD (gastroesophageal reflux disease) Hyperlipidemia Osteoporosis Vertigo Vision loss of left eye Vision loss of right eye Surgical History H/O tubal ligation Family History Father Heart disease CVA (cerebral vascular accident) Social History Smoking Status: Never smoker alcohol intake: current details: social substance use type: does not use caffeine: Yes frequency: 1-2 times per week seatbelt use: always do you feel safe at home: Yes 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 [employer] 3 MO F/U Details: ALISTAIR ARECHIGA is a 77 year old who presents for pessary maintenance. Denies concerns. Did see Dr Villagran for BV and now using boric acid supp nightly for 2 weeks. History 3 Elective abortions Hx Para 3 Spontaneous abortions Hx # Term Pregnancies Ectopic pregnancies Hx # Pregnancies Multiple births # of living children Past Pregnancies Del. Date Name GA/Weeks Outcome Route Bth Weight Gen Labor Lgth Anesthesia Del [facility] Provider FOB Unknown 1967 [place] Unknown 1969 [facility] Unknown 1970 [facility] ROS Const Constitutional: Reports system reviewed and no additional complaints, except as documented Eyes Eyes: Reports system reviewed and no additional complaints, except as documented GI GI: Denies abdominal pain or change in bowel habits : Reports as per HPI Exam Const General: cooperative and no acute distress Orientation: oriented x3 External Female Exam: normal external appearance Speculum Exam - Vagina: vagina atrophic Other: donut pessary removed. No excoriations, bleeding or unusual discharge. Partial suppository noted in vagina. Stable prolapse. Pessary cleaned and easily replaced with trimosan gel. Patient tolerated well. Coding Level of Care Code Off vis,est,level 3 Diagnoses Encounter for pessary maintenance Z46.89 Vaginal pessary in situ Z92.89 Cystocele and rectocele with incomplete uterovaginal prolapse N81.2 Assessment and Plan Assessment and Plan (1) Encounter for pessary maintenance: Status: Acute (2) Vaginal pessary in situ: Status: Acute Comment: #3 donut (3) Cystocele and rectocele with incomplete uterovaginal prolapse: Status: Chronic Plan Reviewed S S infection RTO 3 months unless has pessary cleaning prior with Dr Villagran 04/24/23 1154 <Electronically signed by Rayna Bazzi NP [employer]ARNESS INSTALLER-C> Date Rayna Bazzi NP [employer]ARNESS INSTALLER-C Cosigner Signature: Date (if applicable) CC: Rayshawn Chaudhary [facility] Work Phone: Start: 03-17-2023 Diagnostic radiography of abdomen [employer]ARNESS INSTALLER-C Rayshawn Chaudhary Work Phone: Start: 03-17-2023 End: 03-17-2023 Procedure Note: See Note; NOTES: [facility] [address] [place] [address] Acute Abdomen Inc Chest MR#: [id number] Acct: [id number] Name: ALISTAIR ARECHIGA Rep #: [id number] : 1945 F 77 From: Jem Brice DO PCP: NONA Dickerson Status: DEP AMB Study: Acute Abdomen Inc Chest Date of Exam: 03/17/23 Exam# [id number] Ordering Dr: Rayshawn Chaudhary STUDY: X-RAY - ACUTE ABDOMINAL SERIES REASON FOR EXAM: Female, 77 years old. Ongoing abdominal pain. TECHNIQUE: Single view of the chest. Supine, and erect view(s) of the abdomen were obtained. COMPARISON: Chest, May 16, 2022. CT of the abdomen and pelvis, June 27, 2013. FINDINGS: The lungs are clear and expanded. Normal size heart. Normal mediastinum and es. Normal visualized pulmonary arteries. Normal visualized aortic arch and descending thoracic aorta. There is a non-specific bowel gas pattern. There is no small bowel dilatation. Air and feces is seen throughout the colon. No free air. There is a doughnut shaped lucency overlying the mid pelvis. Question pessary. The soft tissue structures of the abdomen and pelvis are otherwise unremarkable. Degenerative changes of the thoracolumbar spine. RAD/Acute Abdomen Inc Chest IMPRESSION: 1. No evidence of acute intra-abdominal process. 2. No acute cardiopulmonary disease or major interval change. 3. Degenerative changes of the thoracolumbar spine. Electronically Signed: Jem Brice DO at 16:19 EDT Reading Location ID and State: [facility] / [place] Tel [phone], Service support , CC: ALCIDES-Melissa Chaudhary Insole Lip Turner: Signed Rayshawn Chaudhary CNP Work Phone: Start: 03-13-2023 End: 03-13-2023 EKG impression Abdoulaye Nova Start: 03-10-2023 End: 03-10-2023 Emergency Department Summary Procedure Note: See Note; NOTES: [facility] Medical Records Department [address] [place] [id number] Emergency Department Summary 03/10/23 MR#: [id number] Acct: [id number] Name: ALISTAIR ARECHIGA Rep #: [id number] : 1945 77 From: Tod Warner DO PCP: NONA Dickerson Status:DEP ER Location: ED HPI History of Present Illness Chief Complaint: Dizziness Narrative Narrative: 77-year-old female presenting for lightheadedness. She states it started about an hour and a half after taking the [place]. She states the [place] was initially intended for abdominal pain which is resolved. She states she tweaked her back and decided to take this again. She then started to feel little bit lightheaded/dizzy. She was not quite sure if it was vertigo but has had this in the past. She states she felt nauseous. She states that while sitting in the waiting room all of her symptoms resolved. [facility] Medical History GERD (gastroesophageal reflux disease) Hyperlipidemia Osteoporosis Vertigo Vision loss of left eye Vision loss of right eye Home Medications estradiol 0.01% (0.1 mg/gram) vaginal cream (Estrace) 1 g vaginal MOFR 12/17/17 [History Last Taken 02/25/22] glucosamine HCl 500 mg tablet 500 mg PO DAILY 01/05/19 [History Last Taken 02/27/22] triamcinolone acetonide 0.5 % topical cream 1 applic topical BID 7 days #15 grams 07/20/20 [Rx Last Taken 02/26/22] levothyroxine 25 mcg tablet (Synthroid) 25 mcg PO DAILY 02/25/22 [History Last Taken 02/28/22] fenofibric acid (choline) 135 mg capsule,delayed release 135 mg PO DAILY 02/28/22 [History Last Taken 02/27/22] oxyquinoline 0.025 %-sodium lauryl sulfate 0.01 % vaginal gel (Trimo-Colon Jelly) 1 ea vaginal WE 02/28/22 [History Last Taken 02/27/22] calcium carbonate 600 mg-vitamin D3 10 mcg (400 unit) chewable tablet (Calcium 600 with Vitamin D3) tab PO 06/05/22 [History Last Taken Unknown] d-mannose 500 mg capsule mg PO 06/05/22 [History Last Taken Unknown] meclizine 25 mg tablet 25 mg PO DAILY PRN 06/05/22 [History Last Taken Unknown] hydrocodone-acetaminophen 5-325mg 5mg-325mg 1 tab PO Q6H PRN PRN Pain 3 days #10 TABLETS 03/09/23 [Rx Last Taken Unknown] ondansetron 4 mg disintegrating tablet 8 mg PO Q8H PRN PRN Nausea #20 tabs 03/09/23 [Rx Last Taken Unknown] pantoprazole 40 mg tablet,delayed release 40 mg PO DAILY #14 tabs 03/09/23 [Rx Last Taken Unknown] Allergy/AdvReac Type Severity Reaction Status Date / Time sulfamethoxazole Allergy Mild Other Verified 03/10/23 18:59 [From Bactrim] trimethoprim [From Bactrim] Allergy Mild Other Verified 03/10/23 18:59 potassium clavulanate Allergy Rash Verified 03/10/23 18:59 [From Augmentin] amoxicillin trihydrate AdvReac Rash Verified 03/10/23 18:59 [From Augmentin] Family History Father Heart disease CVA (cerebral vascular accident) Surgical History H/O tubal ligation Social History Smoking Status: Never smoker alcohol intake: current details: social substance use type: does not use caffeine: Yes frequency: 1-2 times per week seatbelt use: always do you feel safe at home: Yes 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 ROS ROS ED Review of Systems ROS Unobtainable: Denies due to encephalopathy Constitutional Constitutional ED: Denies chills or fever(s) Eyes Eyes: Denies change in vision or diplopia ENT ENT ED: Denies rhinorrhea or sore throat Cardiovascular Cardiovascular: Denies chest pain or palpitations Respiratory/Chest Respiratory/Chest: Denies cough or dyspnea Gastrointestinal Gastrointestinal: Reports nausea Genitourinary Genitourinary ED: Denies dysuria or hematuria Musculoskeletal Musculoskeletal: Denies arthralgias or back pain Integumentary Denies abscess Neurologic Neurologic: Reports headache(s); Denies paresthesias Psychiatric Psychiatric: Denies anxiety or depression EXAM Physical Exam Const Vital Signs: 03/10/23 17:15 03/10/23 19:00 03/10/23 20:33 Temperature 97.1 F L Temperature Source Temporal Pulse Rate 64 64 Respiratory Rate 18 18 Respiratory Effort Normal Non-Labored Respiratory Pattern Normal Blood Pressure 154/72 H 187/77 H Blood Pressure Mean 99 113 Pulse Ox 100 99 Oxygen Delivery Method Room Air Room Air 03/10/23 21:09 Temperature Temperature Source Pulse Rate Respiratory Rate 18 Respiratory Effort Respiratory Pattern Blood Pressure Blood Pressure Mean Pulse Ox Oxygen Delivery Method Positive well nourished General Appearance ED: Negative for pallor HEENT Reports moist mucous membranes Chest Wall inspection of chest normal and palpation of chest normal Resp normal respiratory effort and clear to auscultation bilaterally Auscultation: Negative for rales, rhonchi or wheezes Cardio regular rate and regular rhythm GI normal to inspection, nondistended, normoactive bowel sounds Neuro oriented x3 and CN's II-XII intact bilaterally Sensorium / Orientation: alert Motor Exam: strength 5/5 throughout Psych mental status grossly normal Skin no rashes or lesions noted General Skin Exam: Negative for jaundice or pallor MDM MDM MDM Narrative Medical decision making narrative: Patient presenting with resolved lightheaded, nausea, headache. She states this all started after she took a [place] earlier today for her back. She suspects this is what it is from. She has normal vital signs. She had blood work done just the other day as well as an ultrasound right upper quadrant and this was all negative. I do not believe she needs repeat imaging. I suspect this is likely due to the [place]. I counseled the patient on this. She is discharged in stable condition. Impression: 1. Medication side effect 2. Nausea 3. Headache 4. Light Discharge Plan Triage Chief Complaint: Dizziness ED Provider: Tod Warner Dx/Rx/DC Orders Instructions: ED Drug Reaction, Other Prescriptions: No Action estradiol [Estrace] 0.01 % (0.1 mg/gram) cream 1 g VAGINAL MOFR glucosamine HCl 500 mg tablet 500 mg PO DAILY triamcinolone acetonide 0.5 % cream 1 applic topical BID 7 Days Qty: 15 2RF Rx Instructions: peasized amount as instructed levothyroxine [Synthroid] 25 mcg tablet 25 mcg PO DAILY meclizine 25 mg tablet 25 mg PO DAILY PRN Calcium 600 with Vitamin D3 600 mg-10 mcg (400 unit) tablet,chewable PO d-mannose 500 mg capsule PO fenofibric acid (choline) 135 mg capsule,delayed release(DR/EC) 135 mg PO DAILY Label Comments: Take 1 Capsule by mouth daily Trimo-Colon Jelly 0.025-0.01 % gel 1 ea VAGINAL WE hydrocodone-acetaminophen [hydrocodone-acetaminophe n] 5-325 mg tablet 1 tab PO Q6H PRN PRN (Reason: Pain) 3 Days Qty: 10 0RF pantoprazole 40 mg tablet,delayed release (DR/EC) 40 mg PO DAILY Qty: 14 0RF ondansetron [ondansetron] 4 mg tablet,disintegrating 8 mg PO Q8H PRN PRN (Reason: Nausea) Qty: 20 0RF Primary Care Provider: Rayshawn Chaudhary Referrals: Rayshawn Chaudhary NP-C [Primary Care Provider] - Disposition Disposition: Home, Self Care Discharge Date/Time: 03/10/23 21:15 What to do if you have Problems For any increased pain, shortness of breath, bleeding, nausea or vomiting, chest pain, or any unexpected problems, contact your Primary Care Provider. Call [facility] ([phone]) or report to the closest Emergency Room. Call 911 if necessary. 03/10/23 2312 <Electronically signed by Tod Warner DO> Cosigner Signature (if applicable): CC: NONA Chaudhary Signed Rayshawn Chaudhary CNP Work Phone: Start: 03-09-2023 End: 03-09-2023 Emergency Department Summary Procedure Note: See Note; NOTES: [facility] Medical Records Department [address] [place] [id number] Emergency Department Summary 03/09/23 MR#: [id number] Acct: [id number] Name: ALISTAIR ARECHIGA Rep #: [id number] : 1945 77 From: Tristan Landis MD PCP: NONA Dickerson Status:DEP ER Location: ED HPI HPI - GI History of Present Illness Chief Complaint: Chest Pain Informant: patient Narrative Narrative: Patient had some upper abdominal pain earlier today after lunch, she ate lunch meats and cheeses, it never went away, but tonight after eating cheeseburger soup for supper, it became much worse and has been persistent like this for the last 6 or 7 hours. She points to the epigastrium but states the pain goes to both sides, denies any dyspnea, she has had nausea but no vomiting. She does not have any specific other areas were pain is radiating including the back or the chest. She had a remote history of a tubal ligation but no other abdominal surgeries. She did have cereal, grapefruit, black coffee for breakfast and did not remember having any of the symptoms. Does not feel like it is in her chest, no upper extremity symptoms or radiation to her jaw. Has some chronic issues with her left hip that she is in care for. [facility] Medical History GERD (gastroesophageal reflux disease) Hyperlipidemia Osteoporosis Vertigo Vision loss of left eye Vision loss of right eye Home Medications estradiol 0.01% (0.1 mg/gram) vaginal cream (Estrace) 1 g vaginal MOFR 12/17/17 [History Last Taken 02/25/22] glucosamine HCl 500 mg tablet 500 mg PO DAILY 01/05/19 [History Last Taken 02/27/22] triamcinolone acetonide 0.5 % topical cream 1 applic topical BID 7 days #15 grams 07/20/20 [Rx Last Taken 02/26/22] levothyroxine 25 mcg tablet (Synthroid) 25 mcg PO DAILY 02/25/22 [History Last Taken 02/28/22] fenofibric acid (choline) 135 mg capsule,delayed release 135 mg PO DAILY 02/28/22 [History Last Taken 02/27/22] oxyquinoline 0.025 %-sodium lauryl sulfate 0.01 % vaginal gel (Trimo-Colon Jelly) 1 ea vaginal WE 02/28/22 [History Last Taken 02/27/22] calcium carbonate 600 mg-vitamin D3 10 mcg (400 unit) chewable tablet (Calcium 600 with Vitamin D3) tab PO 06/05/22 [History Last Taken Unknown] d-mannose 500 mg capsule mg PO 06/05/22 [History Last Taken Unknown] meclizine 25 mg tablet 25 mg PO DAILY PRN 06/05/22 [History Last Taken Unknown] hydrocodone-acetaminophen 5-325mg 5mg-325mg 1 tab PO Q6H PRN PRN Pain 3 days #10 TABLETS 03/09/23 [Rx Last Taken Unknown] ondansetron 4 mg disintegrating tablet 8 mg PO Q8H PRN PRN Nausea #20 tabs 03/09/23 [Rx Last Taken Unknown] pantoprazole 40 mg tablet,delayed release 40 mg PO DAILY #14 tabs 03/09/23 [Rx Last Taken Unknown] Allergy/AdvReac Type Severity Reaction Status Date / Time sulfamethoxazole Allergy Mild Other Verified 03/08/23 23:58 [From Bactrim] trimethoprim [From Bactrim] Allergy Mild Other Verified 03/08/23 23:58 potassium clavulanate Allergy Rash Verified 03/08/23 23:58 [From Augmentin] amoxicillin trihydrate AdvReac Rash Verified 03/08/23 23:58 [From Augmentin] Family History Father Heart disease CVA (cerebral vascular accident) Surgical History H/O tubal ligation Social History Smoking Status: Never smoker alcohol intake: current details: social substance use type: does not use caffeine: Yes frequency: 1-2 times per week seatbelt use: always do you feel safe at home: Yes 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 ROS ROS ED Constitutional Constitutional ED: Denies chills or fever(s) Eyes Eyes: Denies change in vision or diplopia ENT ENT ED: Denies rhinorrhea or sore throat Cardiovascular Cardiovascular: Denies chest pain or palpitations Respiratory/Chest Respiratory/Chest: Denies cough or dyspnea Gastrointestinal Gastrointestinal: Reports abdominal pain and nausea; Denies diarrhea, melena or vomiting Genitourinary Genitourinary ED: Denies dysuria or hematuria Musculoskeletal Musculoskeletal: Reports as per HPI and extremity pain; Denies back pain or neck pain Integumentary Denies abscess or rash Neurologic Neurologic: Denies headache(s), paresthesias or weakness Psychiatric Psychiatric: Denies anxiety or suicidal thoughts EXAM Physical Exam Const Vital Signs: 03/08/23 23:55 03/09/23 00:01 03/09/23 00:02 Temperature 98.2 F Temperature Source Temporal Pulse Rate 77 Respiratory Rate 16 Respiratory Effort Normal Non-Labored Blood Pressure 149/129 H 167/86 H Blood Pressure Mean 135 113 Pulse Ox 99 Oxygen Delivery Method Room Air Positive well nourished, well developed and obese General Appearance ED: well developed and NAD Nutritional Appearance: obese HEENT Reports moist mucous membranes normocephalic and atraumatic Eyes PERRL and EOMs intact bilaterally Neck full ROM and supple Resp normal respiratory effort and clear to auscultation bilaterally Cardio regular rate, regular rhythm and no murmurs GI non-distended GI Narrative: Tender in the epigastrium and right upper quadrant with a positive Goodman's. Otherwise abdomen benign, soft, no palpable pulsatile mass. No guarding or rebound tenderness otherwise, nonsurgical abdomen Auscultation: normoactive bowel sounds Palpation: soft Back/Spine no CVA tenderness General Back: other FROM Extremity normal to inspection General Extremety ED: Negative for edema, pulses abnormal or tenderness General Extremity: Negative for edema or pulses abnormal Neuro oriented x3, CN's II-XII intact bilaterally and no sensory deficits noted Sensorium / Orientation: awake and alert Motor Exam: strength 5/5 throughout Psych mental status grossly normal and thought process normal Skin no rashes or lesions noted and no wounds MDM MDM MDM Narrative Medical decision making narrative: Differential here includes upper GI etiologies, pancreas, gallbladder, cardiac etiologies although this is thought to be less likely due to reproducible symptoms after meals and with palpation in her upper abdomen. Work-up shows an elevated lipase but her liver enzymes are normal and she has no leukocytosis. She is feeling better after some morphine and Zofran. I was able to get ultrasound to do an emergent ultrasound of the gallbladder, and it is essentially normal showing no signs of acute cholecystitis or cholelithiasis. It is possible that the gallbladder is related to her pain but she would need a HIDA scan if her pain continues, she is not a heavy alcohol drinker, and I do not think her pancreas is acutely inflamed based on the slightly high level and nonspecific findings on the ultrasound. She is able to tolerate food and drink. I recommend a full liquid diet at this time, discharge home with close outpatient follow-up after the weekend, and I will prescribe her antinausea and analgesics to use as needed in addition to a PPI. She is comfortable with that overall plan. Lab Data Attestation: I reviewed the patient's lab results. Labs: Laboratory Results - last 24 hr 03/09/23 03/09/23 00:05 00:05 WBC 7.4 RBC 4.34 Hgb 12.4 Hct 38.7 MCV 89.2 MCH 28.6 MCHC 32.0 RDW Std Deviation 48.1 H RDW Coeff of Kimi 14.7 H Plt Count 384 MPV 9.5 Immature Gran % (Auto) 0.400 Neut % (Auto) 51.7 Lymph % (Auto) 36.4 [place] % (Auto) 8.1 Eos % (Auto) 2.6 Baso % (Auto) 0.8 Absolute Neuts (auto) 3.9 Absolute Lymphs (auto) 2.71 Nucleated RBC % 0 Sodium 142 Potassium 3.8 Chloride 109 H Carbon Dioxide 27.0 Anion Gap 6 BUN 22 H Creatinine 1.41 H Estim Creat Clear Calc 25.61 Est GFR (MDRD) Af Amer 47 L Est GFR (MDRD) Non-Af 39 L BUN/Creatinine Ratio 15.6 Glucose 106 Calcium 9.4 Total Bilirubin 0.30 AST 24 ALT 30 Alkaline Phosphatase 37 L Troponin I High Sens 9 Total Protein 7.2 Albumin 3.5 Globulin 3.7 Albumin/Globulin Ratio 0.9 Lipase 442 H Radiography Diagnostic Testing: Clinical Impression(s) from Imaging Studies Gallbladder Ultrasound 03/09/23 00:10 IMPRESSION: Hepatic steatosis. Borderline distended common duct for patient''s age. Nonspecific fatty infiltrated appearance of the pancreas. No gallstones. No ultrasound evidence of cholecystitis. No hydronephrosis. Possible small echogenic foci of artifact versus small angiomyolipomas. Electronically Signed: Nerissa Hay MD at 2:09 EDT Reading Location ID and State: [facility] / [place] Tel , Service support , I reviewed the images and the radiologist's interpretation and I agree with that. Rhythm Strip Rhythm Strip: Sinus Rhythm Rate: 75 Ectopy: None EKG Initial EKG: Attestation: I personally reviewed and interpreted this EKG as follows: Interpretation: Sinus Rhythm, No Acute Injury Pattern and Non-Specific ST Changes (Laterally) Prior EKG tracings: available for review Prior: Unchanged Discharge Plan Triage Chief Complaint: Chest Pain ED Provider: Tristan Landis Dx/Rx/DC Orders Clinical Impression: Acute upper abdominal pain, Elevated lipase Instructions: ED Epigastric Pain Uncertain Cause, ED Full Liquid Diet Prescriptions: New hydrocodone-acetaminophen [hydrocodone-acetaminophe n] 5-325 mg tablet 1 tab PO Q6H PRN PRN (Reason: Pain) 3 Days Qty: 10 0RF pantoprazole 40 mg tablet,delayed release (DR/EC) 40 mg PO DAILY Qty: 14 0RF ondansetron [ondansetron] 4 mg tablet,disintegrating 8 mg PO Q8H PRN PRN (Reason: Nausea) Qty: 20 0RF No Action estradiol [Estrace] 0.01 % (0.1 mg/gram) cream 1 g VAGINAL MOFR glucosamine HCl 500 mg tablet 500 mg PO DAILY triamcinolone acetonide 0.5 % cream 1 applic topical BID 7 Days Qty: 15 2RF Rx Instructions: peasized amount as instructed levothyroxine [Synthroid] 25 mcg tablet 25 mcg PO DAILY meclizine 25 mg tablet 25 mg PO DAILY PRN Calcium 600 with Vitamin D3 600 mg-10 mcg (400 unit) tablet,chewable PO d-mannose 500 mg capsule PO fenofibric acid (choline) 135 mg capsule,delayed release(DR/EC) 135 mg PO DAILY Label Comments: Take 1 Capsule by mouth daily Trimo-Colon Jelly 0.025-0.01 % gel 1 ea VAGINAL WE Primary Care Provider: Rayshawn Chaudhary Referrals: Rayshawn Chaudhary NP-C [Primary Care Provider] - 3-5 Days if not improving Activity Restrictions/Additional Instructions: Try the full liquid diet for 2 to 3 days, then advance diet as tolerated Disposition Disposition: Home, Self Care What to do if you have Problems For any increased pain, shortness of breath, bleeding, nausea or vomiting, chest pain, or any unexpected problems, contact your Primary Care Provider. Call [facility] ([phone]) or report to the closest Emergency Room. Call 911 if necessary. 03/09/23 0559 <Electronically signed by Tristan Landis MD> Cosigner Signature (if applicable): CC: NONA Chaudhary Signed Rayshawn Chaudhary [facility] Work Phone: Start: 03-09-2023 End: 03-09-2023 Gallbladder Procedure Note: See Note; NOTES: [facility] [address] [place] [address] Gallbladder MR#: [id number] Acct: [id number] Name: ALISTAIR ARECHIGA Rep #: [id number] : 1945 F 77 From: Nerissa Hay MD PCP: NONA Dickerson Status: REG ER Study: Gallbladder Date of Exam: 03/09/23 Exam# [id number] Ordering Dr: Tristan Landis MD STUDY: ABDOMINAL ULTRASOUND - RIGHT UPPER QUADRANT REASON FOR VISIT: Female, 77 years old ABD PAIN TECHNIQUE: Ultrasound evaluation of the right upper quadrant was performed with real-time and static forde-scale imaging. TECHNICAL QUALITY: Adequate. COMPARISON: Renal ultrasound May 21, 2022 FINDINGS: Liver: The liver measures 14.92 cm. There is increased echogenicity consistent with fatty infiltration. The bile ducts are within normal limits. There is hepatic color flow. The direction of portal flow is hepatopetal. There is no demonstrated mass lesion. Gallbladder: Normal distended gallbladder. The gallbladder wall measures 2 mm. There is a negative sonographic Goodman''s sign. There is no pericholecystic fluid. There are no gallstones. Common Bile Duct (C.B.D.): The common bile duct measures 6 mm. Pancreas: Normal size of the head, body and tail of the pancreas. There is increased echogenicity of the pancreas. There is no demonstrated pancreatic mass or cyst. There is mild distention of the pancreatic duct measuring 4 mm. Right Kidney: Normal size of the right kidney. The right kidney measures 10.2 x 3.7 x 4.1 cm. Normal renal cortex. The right cortex measures 1.4 cm. There is a small echogenic structure within the right kidney measuring 5.6 x 5.0 mm. Also seen on prior study which may represent a small focus of fat possible angiomyolipoma. There is an additional subtle structure that is likely probable artifact or fat within the lower pole measuring 4 mm as well. There is no right hydronephrosis. US/Gallbladder IMPRESSION: Hepatic steatosis. Borderline distended common duct for patient''s age. Nonspecific fatty infiltrated appearance of the pancreas. No gallstones. No ultrasound evidence of cholecystitis. No hydronephrosis. Possible small echogenic foci of artifact versus small angiomyolipomas. Electronically Signed: Nerissa Hay MD at 2:09 EDT , CC: NONA Chaudhary; Dr. 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 Body Assembly Required: No Is patient in pain?: No Allergies sulfamethoxazole [From Bactrim] Allergy (Mild, Verified 01/23/23 10:27) Other trimethoprim [From Bactrim] Allergy (Mild, Verified 01/23/23 10:27) Other potassium clavulanate [From Augmentin] Allergy (Verified 01/23/23 10:27) Rash amoxicillin trihydrate [From Augmentin] Adverse Reaction (Verified 01/23/23 10:27) Rash Medications estradiol 0.01% (0.1 mg/gram) vaginal cream (Estrace) 1 g vaginal MOFR 12/17/17 [History Confirmed 01/23/23] glucosamine HCl 500 mg tablet 500 mg PO DAILY 01/05/19 [History Confirmed 01/23/23] triamcinolone acetonide 0.5 % topical cream 1 applic topical BID 7 days #15 grams 08/20/20 [Rx Confirmed 01/23/23] levothyroxine 25 mcg tablet (Synthroid) 25 mcg PO DAILY 02/25/22 [History Confirmed 01/23/23] fenofibric acid (choline) 135 mg capsule,delayed release 135 mg PO DAILY 02/28/22 [History Confirmed 01/23/23] oxyquinoline 0.025 %-sodium lauryl sulfate 0.01 % vaginal gel (Trimo-Colon Jelly) 1 ea vaginal WE 02/28/22 [History Confirmed 01/23/23] calcium carbonate 600 mg-vitamin D3 10 mcg (400 unit) chewable tablet (Calcium 600 with Vitamin D3) tab PO 06/05/22 [History Confirmed 01/23/23] d-mannose 500 mg capsule mg PO 06/05/22 [History Confirmed 01/23/23] meclizine 25 mg tablet 25 mg PO DAILY PRN 06/05/22 [History Confirmed 01/23/23] Is last menstrual period known: No Post menopausal: Yes Patient : No : No PFSH Medical History GERD (gastroesophageal reflux disease) Hyperlipidemia Osteoporosis Vertigo Vision loss of left eye Vision loss of right eye Surgical History H/O tubal ligation Family History Father Heart disease CVA (cerebral vascular accident) Social History Smoking Status: Never smoker alcohol intake: current details: social substance use type: does not use caffeine: Yes frequency: 1-2 times per week seatbelt use: always do you feel safe at home: Yes 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 [employer] pessary check Details: ALISTAIR ARECHIGA is a 77 year old who presents for pessary check. Denies concerns. History 3 Elective abortions Hx Para 3 Spontaneous abortions Hx # Term Pregnancies Ectopic pregnancies Hx # Pregnancies Multiple births # of living children Past Pregnancies Del. Date Name GA/Weeks Outcome Route Bth Weight Gen Labor Lgth Anesthesia Del Locatn Provider FOB Unknown 1967 Mikal Unknown 1969 [facility] Unknown 1970 [place] [facility] ROS Const Constitutional: Reports system reviewed and no additional complaints, except as documented Eyes Eyes: Reports system reviewed and no additional complaints, except as documented GI GI: Denies abdominal pain or change in bowel habits : Reports as per HPI Exam Const General: cooperative and no acute distress Orientation: oriented x3 External Female Exam: normal external appearance Speculum Exam - Vagina: vagina atrophic Other: donut pessary removed. No excoriations, bleeding or unusual discharge. Stable prolapse. Pessary cleaned and easily replaced with trimosan gel. Patient tolerated well. Coding Level of Care Code Off vis,est,level 3 Diagnoses Encounter for pessary maintenance Z46.89 Vaginal pessary in situ Z92.89 Cystocele and rectocele with incomplete uterovaginal prolapse N81.2 Assessment and Plan Assessment and Plan (1) Encounter for pessary maintenance: Status: Acute (2) Vaginal pessary in situ: Status: Acute Comment: #3 donut (3) Cystocele and rectocele with incomplete uterovaginal prolapse: Status: Chronic Plan Reviewed S S infection Will see in 3 months due to history of recurrent UTIs 01/23/23 1044 <Electronically signed by Rayna CASTELLANO> Date Rayna CASTELLANO Cosigner Signature: Date (if applicable) CC: Rayshawn Chaudhary [facility] Work Phone: Start: 09-04-2022 End: 09-04-2022 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 [address] [place] [address] OFFICE VISIT Date of Service: 09/04/22 MR#: [id number] Acct: [id number] Name: ALISTAIR ARECHIGA Rep #: [id number] : 1945 Provider: HARNESS INSTALLER-C Rayna Hast ings Age/Sex: 76/F Location: 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 Required: No Is patient in pain?: No Allergies sulfamethoxazole [From Bactrim] Allergy (Mild, Verified 06/05/22 10:02) Other trimethoprim [From Bactrim] Allergy (Mild, Verified 06/05/22 10:02) Other potassium clavulanate [From Augmentin] Allergy (Verified 06/05/22 10:02) Rash amoxicillin trihydrate [From Augmentin] Adverse Reaction (Verified 06/05/22 10:02) Rash Medications estradiol 0.01% (0.1 mg/gram) vaginal cream (Estrace) 1 g vaginal MOFR 12/17/17 [History Confirmed 09/04/22] glucosamine HCl 500 mg tablet 500 mg PO DAILY 01/05/19 [History Confirmed 09/04/22] triamcinolone acetonide 0.5 % topical cream 1 applic topical BID 7 days #15 grams 07/20/20 [Rx Confirmed 09/04/22] levothyroxine 25 mcg tablet (Synthroid) 25 mcg PO DAILY 02/25/22 [History Confirmed 09/04/22] fenofibric acid (choline) 135 mg capsule,delayed release 135 mg PO DAILY 02/28/22 [History Confirmed 09/04/22] oxyquinoline 0.025 %-sodium lauryl sulfate 0.01 % vaginal gel (Trimo-Colon Jelly) 1 ea vaginal WE 02/28/22 [History Confirmed 09/04/22] calcium carbonate 600 mg-vitamin D3 10 mcg (400 unit) chewable tablet (Calcium 600 with Vitamin D3) tab PO 06/05/22 [History Confirmed 09/04/22] d-mannose 500 mg capsule mg PO 06/05/22 [History Confirmed 09/04/22] meclizine 25 mg tablet 25 mg PO DAILY PRN 06/05/22 [History Confirmed 09/04/22] Post menopausal: Yes Patient : No : No PFSH Medical History GERD (gastroesophageal reflux disease) Hyperlipidemia Osteoporosis Vertigo Vision loss of left eye Vision loss of right eye Surgical History H/O tubal ligation Family History Father Heart disease CVA (cerebral vascular accident) Social History Smoking Status: Never smoker alcohol intake: current details: social substance use type: does not use caffeine: Yes frequency: 1-2 times per week seatbelt use: always do you feel safe at home: Yes 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 [employer] 3 MO FU Details: ALISTAIR ARECHIGA is a 76 year old who presents for 3 mo pessary check. Denies concerns History 3 Elective abortions Hx Para 3 Spontaneous abortions Hx # Term Pregnancies Ectopic pregnancies Hx # Pregnancies Multiple births # of living children Past Pregnancies Del. Date Name GA/Weeks Outcome Route Bth Weight Infant Gen Labor Lgth Anesthesia Del [facility] Provider FO Unknown 1967 Mikal Unknown 1969 [facility] Unknown 1970 [facility] ROS Const Constitutional: Reports system reviewed and no additional complaints, except as documented Eyes Eyes: Reports system reviewed and no additional complaints, except as documented GI GI: Denies abdominal pain or change in bowel habits : Reports as per HPI Exam Const General: cooperative and no acute distress Orientation: oriented x3 External Female Exam: normal external appearance Speculum Exam - Vagina: vagina atrophic Other: donut pessary removed. No excoriations, bleeding or unusual discharge. Stable prolapse. Pessary cleaned and easily replaced with trimosan gel. Patient tolerated well. Coding Level of Care Code Off vis,est,level 3 Diagnoses Encounter for pessary maintenance Z46.89 Cystocele and rectocele with incomplete uterovaginal prolapse N81.2 Assessment and Plan Assessment and Plan (1) Encounter for pessary maintenance: Status: Acute (2) Cystocele and rectocele with incomplete uterovaginal prolapse: Status: Chronic Orders: Orders Pessary Check Today Plan Reviewed S S infection RTO 4 months 09/04/22 0952 <Electronically signed by Rayna Bazzi NP HARNESS INSTALLER-C> Date Rayna James Signature: Date (if applicable) CC: Rayshawn Chaudhary CNP Work Phone: Start: 06-05-2022 End: 06-05-2022 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 [place], [place] [address] OFFICE VISIT Date of Service: 06/05/22 MR#: [id number] Acct: [id number] Name: ALISTAIR ARECHIGA Rep #: [id number] : 1945 Provider: NONA ramirez Age/Sex: 76/F Location: [facility] Status: Signed Intake Vital Signs 02/25/22 09:52 05/16/22 01:03 06/05/22 10:02 06/05/22 10:13 Height 5 ft 1 in 5 ft 1 in 5 ft 1 in 5 ft 1 in Weight: 172 lb 174 lb 6 oz BMI 32.5 32.9 BP 176/81 H 140/88 H Respiration 16 Pulse 74 Temp 97.3 F L Pulse Oximetry (%) 98 Intake Visit Reasons: 3 MO pessary check Allergies sulfamethoxazole [From Bactrim] Allergy (Mild, Verified 06/05/22 10:02) Other trimethoprim [From Bactrim] Allergy (Mild, Verified 06/05/22 10:02) Other potassium clavulanate [From Augmentin] Allergy (Verified 06/05/22 10:02) Rash amoxicillin trihydrate [From Augmentin] Adverse Reaction (Verified 06/05/22 10:02) Rash Medications estradiol (Estrace) 1 g vaginal MOFR 12/17/17 [History Confirmed 06/05/22] glucosamine HCl 500 mg tablet 500 mg PO DAILY 01/05/19 [History Confirmed 06/05/22] triamcinolone acetonide 0.5 % topical cream 1 applic topical BID 7 days #15 grams 07/20/20 [Rx Confirmed 06/05/22] levothyroxine 25 mcg tablet (Synthroid) 25 mcg PO DAILY 02/25/22 [History Confirmed 06/05/22] fenofibric acid (choline) 135 mg capsule,delayed release 135 mg PO DAILY 02/28/22 [History Confirmed 06/05/22] oxyquinoline 0.025 %-sodium lauryl sulfate 0.01 % vaginal gel (Trimo-Colon Jelly) 1 ea vaginal WE 02/28/22 [History Confirmed 05/16/22] calcium carbonate 600 mg-vitamin D3 10 mcg (400 unit) chewable tablet (Calcium 600 with Vitamin D3) tab PO 06/05/22 [History Confirmed 06/05/22] d-mannose 500 mg capsule mg PO 06/05/22 [History Confirmed 06/05/22] meclizine 25 mg tablet 25 mg PO DAILY PRN 06/05/22 [History Confirmed 06/05/22] Post menopausal: Yes PFSH Medical History GERD (gastroesophageal reflux disease) Hyperlipidemia Osteoporosis Vertigo Vision loss of left eye Vision loss of right eye Surgical History H/O tubal ligation Family History Father Heart disease CVA (cerebral vascular accident) Social History Smoking Status: Never smoker alcohol intake: current details: social substance use type: does not use caffeine: Yes frequency: 1-2 times per week seatbelt use: always do you feel safe at home: Yes 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 [employer] 3 MO pessary check Details: ALISTAIR ARECHIGA is a 76 year old who presents for pessary check. Denies concerns. Saw Dr Villagran and stopped cranberry and started D-nory and no longer having bladder irritation. Had negative cystoscopy. Recently trimosan gel out of stock so waiting on that. Pregancy History 3 Elective abortions Hx Para 3 Spontaneous abortions Hx # Term Pregnancies Ectopic pregnancies Hx # Pregnancies Multiple births # of living children Past Pregnancies Del. Date Name GA/Weeks Outcome Route Bth Weight Gen Labor Lgth Anesthesia Del Locatn Provider FOB Unknown 1967 Mikal Unknown 1969 [facility] Unknown 1970 [facility] ROS Const Constitutional: Reports system reviewed and no additional complaints, except as documented Eyes Eyes: Reports system reviewed and no additional complaints, except as documented GI GI: Denies abdominal pain or change in bowel habits : Reports as per HPI Exam Const General: cooperative and no acute distress Orientation: oriented x3 External Female Exam: normal external appearance Speculum Exam - Cervix: normal appearance of the cervix Bimanual Exam- Vagina Uterus: normal bimanual exam and uterine size normal Bimanual Exam- Adnexa, other: normal adnexae, no masses and non-tender Other: Donut pessary removed. No excoriations, bleeding or unusual discharge. Pessary cleaned and easily replaced with trimosan gel. Prolapse stablePatient tolerated well. Coding Level of Care Code Off vis,est,level 3 Diagnoses Encounter for pessary maintenance Z46.89 Vaginal pessary in situ Z92.89 Cystocele and rectocele with incomplete uterovaginal prolapse N81.2 Assessment and Plan Assessment and Plan (1) Encounter for pessary maintenance: Status: Acute (2) Vaginal pessary in situ: Status: Acute Comment: #3 donut (3) Cystocele and rectocele with incomplete uterovaginal prolapse: Status: Chronic Plan Reviewed S S infection RTO 3 months 06/05/22 1027 <Electronically signed by Rayna MCCORMACKC> Date Rayna CASTELLANO Cosigner Signature: Date (if applicable) CC: Rayshawn Chaudhary [facility] Work Phone: Start: 05-21-2022 End: 05-21-2022 Kidney and Bladder Comments: See Note; NOTES: [facility] [address] [place] [address] Kidney and Bladder MR#: [id number] Acct: [id number] Name: ALISTAIR ARECHIGA Rep #: [id number] : 1945 F 76 From: Faizan Hodges MD PCP: NONA Perea Status: REG CLI Study: Kidney and Bladder Date of Exam: 05/21/22 Exam# [id number] Ordering Dr: Dia Villagran MD STUDY: RENAL ULTRASOUND - COMPLETE REASON FOR EXAM: Female, 76 years old. UTI TECHNIQUE: Ultrasound evaluation of the kidneys was performed with real-time and static brush-scale imaging. COMPARISON: 06/12/2021 FINDINGS: RIGHT KIDNEY: Normal location of the right kidney, which is normal in size. The right kidney measures 9.6 cm. There is a normal cortex of the right kidney. The renal cortex measures 2.0 cm. There is no right renal mass or cyst. There are no right renal calculi. There is no right hydronephrosis. DISTAL RIGHT URETER: There is non-visualization of the distal right ureter. There is no demonstrated right ureterovesical junction calculus. There is a visualized right ureteral jet. LEFT KIDNEY: Normal location of the left kidney, which is normal in size. The left kidney measures 10.8 cm. There is a normal cortex of the left kidney. The renal cortex measures 2.2 cm. 5 cm cyst in lower pole of the left kidney. There are no left renal calculi. There is no left hydronephrosis. DISTAL LEFT URETER: There is non-visualization of the distal left ureter. There is no demonstrated left ureterovesical junction calculus. There is a visualized left ureteral jet. BLADDER: The distended urinary bladder has a volume of 106 ml. The empty urinary bladder has a volume of ml. There is a normal wall thickness of the distended urinary bladder. There is no demonstrated mass within the urinary bladder. There are no demonstrated bladder calculi. US/Kidney and Bladder IMPRESSION: Normal ultrasound of the kidneys and urinary bladder. No change in left renal cyst. Electronically Signed: Faizan Hodges MD at 18:14 EDT , CC: HARNESS INSTALLERCandida Hagen; Dr. Dia Villagran MD Insole Lip Turner: Signed Belem Hagen Work Phone: Start: 05-21-2022 US urinary tract HARNESS INSTALLER-C Belem Hagen HARNESS INSTALLER Work Phone: Start: 05-16-2022 End: 05-16-2022 Emergency Department Summary Comments: See Note; NOTES: [facility] Medical Records Department [address] [place] [address] Emergency Department Summary 05/16/22 MR#: [id number] Acct: [id number] Name: ALISTAIR ARECHIGA Rep #: [id number] : 1945 76 From: Dimitrios Islas DO PCP: NONA Perea Status:DEP ER Location: ED HPI History of Present Illness Chief Complaint: Dizziness Narrative Narrative: Patient is a 76-year-old female with past medical history of peripheral vertigo who takes Antivert for this. She states that today she has been having intermittent bouts of dizziness which she describes as more of a sense of motion. She states that it does seem to improve with rest and that she is taking her Antivert with minimal symptom improvement. She also states she has had vague twinges of left-sided chest discomfort and has a past medical history of recurrent UTIs and is concerned based on these persistent symptoms and therefore comes in for evaluation. [facility] Medical History GERD (gastroesophageal reflux disease) Hyperlipidemia Osteoporosis Vertigo Vision loss of left eye Vision loss of right eye Home Medications estradiol (Estrace) 1 g vaginal MOFR 12/17/17 [History Last Taken 02/25/22] glucosamine HCl 500 mg tablet 500 mg PO DAILY 01/05/19 [History Last Taken 02/27/22] cranberry 500 mg capsule 1,000 mg PO BID 07/20/20 [History Last Taken 02/27/22] triamcinolone acetonide 0.5 % topical cream 1 applic topical BID 7 days #15 grams 07/20/20 [Rx Last Taken 02/26/22] levothyroxine 25 mcg tablet (Synthroid) 25 mcg PO DAILY 02/25/22 [History Last Taken 02/28/22] fenofibric acid (choline) 135 mg capsule,delayed release 135 mg PO DAILY 02/28/22 [History Last Taken 02/27/22] oxyquinoline 0.025 %-sodium lauryl sulfate 0.01 % vaginal gel (Trimo-Colon Jelly) 1 ea vaginal WE 02/28/22 [History Last Taken 02/27/22] diazepam 2 mg tablet (Valium) 2 mg PO TID PRN dizziness or vertigo 5 days #15 tabs 05/16/22 [Rx Last Taken Unknown] Allergy/AdvReac Type Severity Reaction Status Date / Time sulfamethoxazole Allergy Mild Other Verified 05/16/22 01:07 [From Bactrim] trimethoprim [From Bactrim] Allergy Mild Other Verified 05/16/22 01:07 potassium clavulanate Allergy Rash Verified 05/16/22 01:07 [From Augmentin] amoxicillin trihydrate AdvReac Rash Verified 05/16/22 01:07 [From Augmentin] Family History Father Heart disease CVA (cerebral vascular accident) Surgical History H/O tubal ligation Social History Smoking Status: Never smoker alcohol intake: current details: social substance use type: does not use caffeine: Yes frequency: 1-2 times per week seatbelt use: always do you feel safe at home: Yes 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 ROS ROS ED Constitutional Constitutional ED: Denies chills or fever(s) ENT ENT ED: Denies ear pain or sore throat Cardiovascular Cardiovascular: Reports chest pain Respiratory/Chest Respiratory/Chest: Denies cough, dyspnea or dyspnea on exertion Gastrointestinal Gastrointestinal: Denies abdominal pain, diarrhea, nausea or vomiting Genitourinary Genitourinary ED: Denies dysuria Musculoskeletal Musculoskeletal: Denies myalgias Integumentary Denies rash Neurologic Neurologic: Reports other Details: Positive dizziness ; Denies headache(s) Hematologic/Lymphatic Hematologic/Lymphatic: Denies easy bleeding or easy bruising EXAM Physical Exam Const Vital Signs: 05/16/22 01:03 05/16/22 01:09 05/16/22 04:00 Temperature 97.3 F L Temperature Source Temporal Pulse Rate 74 60 Respiratory Rate 16 16 Respiratory Effort Normal Non-Labored Respiratory Pattern Normal Blood Pressure 176/81 H 167/67 H Blood Pressure Mean 112 100 Pulse Ox 98 99 Oxygen Delivery Method Room Air 05/16/22 05:06 Temperature Temperature Source Pulse Rate 80 Respiratory Rate 16 Respiratory Effort Respiratory Pattern Blood Pressure 121/66 H Blood Pressure Mean Pulse Ox Oxygen Delivery Method Positive well nourished and well developed General Appearance ED: well developed HEENT Reports dry mucous membranes Mouth ED: Yes dry mucous membranes Mouth: dry mucous membranes Eyes PERRL and EOMs intact bilaterally Neck supple Resp normal respiratory effort and clear to auscultation bilaterally Cardio regular rate and regular rhythm Rate: other Other Details: Radial pulses are plus 2 out of 4 bilaterally are equal and symmetric GI normal to inspection, nondistended, normoactive bowel sounds, non-tender and non-distended GI Narrative: No voluntary guarding or rigidity no pulsatile mass Auscultation: normoactive bowel sounds Palpation: soft Extremity normal to inspection Neuro oriented x3 and CN's II-XII intact bilaterally Neuro Narrative: Cranial nerves II through XII are grossly intact there are no focal neurologic deficits. No pronator drift no dysmetria or truncal ataxia. There is mild horizontal nystagmus noted and bilateral positive Hallpike Melody exam. Sensorium / Orientation: alert Psych mental status grossly normal Skin no rashes or lesions noted MDM MDM MDM Narrative Medical decision making narrative: Patient presented to the ER mildly hypertensive but otherwise with stable vitals. Her neuro exam is normal and with her symptoms of nystagmus as well as worsening dizziness with motion relieving at rest this does appear to be more of a peripheral vertigo component. However as she states that she is taking her normal medication for this without symptom resolution I did elect to perform a head CT with basic cardiac work-up. Head CT revealed no acute pathology. EKG was sinus rhythm and her initial and delta troponin were essentially equal at 7 and 8. There is changes consistent mild dehydration with bump to her kidney function. Secondary to this she was given a 500 mL bolus fluid and 2.5 mg of Valium secondary to the vertigo. On reevaluation she reports resolution of her symptoms and is able to walk with a steady gait. Therefore as her troponins have remained flat her neuro exam normal and she has had improvement of symptoms with treatment she will be discharged home and can follow-up on an outpatient basis Lab Data Attestation: I reviewed the patient's lab results. Labs: Laboratory Results - last 24 hr 05/16/22 05/16/22 05/16/22 01:22 01:22 02:05 WBC 6.0 RBC 4.56 Hgb 12.7 Hct 39.8 MCV 87.3 MCH 27.9 MCHC 31.9 L RDW Std Deviation 47.1 H RDW Coeff of Kimi 14.7 H Plt Count 346 MPV 9.8 Immature Gran % (Auto) 0.200 Neut % (Auto) 52.8 Lymph % (Auto) 32.4 [place] % (Auto) 10.4 H Eos % (Auto) 3.5 Baso % (Auto) 0.7 Absolute Neuts (auto) 3.1 Absolute Lymphs (auto) 1.93 Nucleated RBC % 0 Sodium 142 Potassium 4.1 Chloride 108 H Carbon Dioxide 29.0 Anion Gap 5 BUN 23 H Creatinine 1.62 H Estim Creat Clear Calc 22.64 Est GFR (MDRD) Af Amer 40 L Est GFR (MDRD) Non-Af 33 L BUN/Creatinine Ratio 14.2 Glucose 106 Calcium 8.7 Magnesium 2.2 Troponin I High Sens 7 Urine Color Yellow Urine Clarity Clear Urine pH 7.0 Ur Specific Louisa 1.010 Urine Protein Negative Urine Glucose (UA) Normal Urine Ketones Negative Urine Occult Blood Negative Urine Nitrite Negative Urine Bilirubin Negative Urine Urobilinogen Normal Ur Leukocyte Esterase Negative Urine RBC 0 SEEN Urine WBC 0 SEEN Ur Squamous Epith Cells 0-5 SEEN Urine Bacteria RARE Urine Mucus 0 SEEN 05/16/22 03:34 WBC RBC Hgb Hct MCV MCH MCHC RDW Std Deviation RDW Coeff of Kimi Plt Count MPV Immature Gran % (Auto) Neut % (Auto) Lymph % (Auto) [place] % (Auto) Eos % (Auto) Baso % (Auto) Absolute Neuts (auto) Absolute Lymphs (auto) Nucleated RBC % Sodium Potassium Chloride Carbon Dioxide Anion Gap BUN Creatinine Estim Creat Clear Calc Est GFR (MDRD) Af Amer Est GFR (MDRD) Non-Af BUN/Creatinine Ratio Glucose Calcium Magnesium Troponin I High Sens 8 Urine Color Urine Clarity Urine pH Ur Specific Louisa Urine Protein Urine Glucose (UA) Urine Ketones Urine Occult Blood Urine Nitrite Urine Bilirubin Urine Urobilinogen Ur Leukocyte Esterase Urine RBC Urine WBC Ur Squamous Epith Cells Urine Bacteria Urine Mucus Radiography Diagnostic Testing: Clinical Impression(s) from Imaging Studies Brain CT 05/16/22 01:27 IMPRESSION: 1. Acute on chronic sinusitis. 2. No acute intracranial pathology. Electronically Signed: Dimitrios Jauregui MD at 2:48 EDT , Chest X-Ray 05/16/22 01:27 IMPRESSION: No acute disease. Electronically Signed: Dimitrios Jauregui MD at 2:45 EDT , Chest x-ray as interpreted by the emergency medicine physician reveals no acute infiltrate pneumothorax or pleural effusion Discharge Plan Triage Chief Complaint: Dizziness ED Provider: Dimitrios Islas Dx/Rx/DC Orders Clinical Impression: Peripheral vertigo, Dehydration, mild Instructions: Dehydration, ED Vertigo, Unspecified Prescriptions: New diazepam [Valium] 2 mg tablet 2 mg PO TID PRN (Reason: dizziness or vertigo) 5 Days Qty: 15 0RF No Action estradiol [Estrace] 0.01 % (0.1 mg/gram) cream 1 g VAGINAL MOFR glucosamine HCl 500 mg tablet 500 mg PO DAILY triamcinolone acetonide 0.5 % cream 1 applic topical BID 7 Days Qty: 15 2RF Rx Instructions: peasized amount as instructed levothyroxine [Synthroid] 25 mcg tablet 25 mcg PO DAILY cranberry 500 mg capsule 1,000 mg PO BID Label Comments: supplement fenofibric acid (choline) 135 mg capsule,delayed release(DR/EC) 135 mg PO DAILY Label Comments: Take 1 Capsule by mouth daily Trimo-Colon Jelly 0.025-0.01 % gel 1 ea VAGINAL WE Primary Care Provider: Belem Hagen NP Referrals: Belem Hagen HARNESS INSTALLER, HARNESS INSTALLER-C [Primary Care Provider] - Activity Restrictions/Additional Instructions: Please keep yourself well-hydrated and continue your meclizine for recurrent vertigo symptoms. However if this does not help then you may take the Valium as directed. Please return to the ER should you have any further concerns Disposition Disposition: Home, Self Care Discharge Date/Time: 05/16/22 05:07 What to do if you have Problems For any increased pain, shortness of breath, bleeding, nausea or vomiting, chest pain, or any unexpected problems, contact your Primary Care Provider. Call [facility] ([phone]) or report to the closest Emergency Room. Call 911 if necessary. 05/16/22 0650 <Electronically signed by Dimitrios Islas DO> Cosigner Signature (if applicable): CC: HARNESS INSTALLER-C Belem Hagen Signed Belem Hagen Work Phone: Start: 05-16-2022 End: 05-17-2022 12 Lead EKG Comments: See Note; NOTES: [facility] [address] [place] [address] 12 Lead EKG 05/16/22 0159 MR#: [id number] Acct: [id number] Name: ALISTAIR ARECHIGA Rep #: [id number] : 1945 76 From: Juan M Reyna MD Attending Dr: Status: DEP ER Ordering Dr: Dimitrios Islas DO Date: 05/16/22 Location: ED Sex: F C Admitted: Test Reason : DYSRHYTHMIA Blood Pressure : / mmHG Vent. Rate : 064 BPM Atrial Rate : 064 BPM P-R Int : 154 ms QRS Dur : 088 ms QT Int : 426 ms P-R-T Axes : 053 019 072 degrees QTc Int : 439 ms Normal sinus rhythm Normal ECG Confirmed by LUZ MARIA GARZA, JUAN M ([id number]), movie editor DESHAWN MICHAELS ([id number]) on 05/17/2022 9:14:48 AM Referred By: RANDOLPH Confirmed By:JUAN M REYNA MD 05/17/2214 Date Juan M Reyna MD CC: HARNESS INSTALLER-C Belem Hagen; Dimitrios Islas DO Signed Belem Hieu Work Phone: Start: 05-16-2022 End: 05-16-2022 Brain/Head without Contrast Comments: See Note; NOTES: [facility] [address] [place] [id number] Brain/Head without Contrast MR#: [id number] Acct: [id number] Name: ALISTAIR ARECHIGA Rep #: [id number] : 1945 F 76 From: Dimitrios Jauregui MD PCP: NONA Perea Status: REG ER Study: Brain/Head without Contrast Date of Exam: 05/01 05/22 Exam# [id number] Ordering Dr: Dimitrios Islas DO EXAM: CT HEAD WITHOUT INTRAVENOUS CONTRAST CLINICAL INDICATION: headache TECHNIQUE: Multiple axial images were obtained of the head without intravenous contrast. CTDIvol = ( 44.99 ) mGy, DLP = ( 812.98 ) mGycm This CT exam was performed using one or more of the following dose reduction techniques: automated exposure control, adjustment of the mA and/or kV according to patient size, and/or use of iterative reconstruction technique. This report was created using [employer] report generation technology. COMPARISON: 06/13/2020 exam FINDINGS: BRAIN AND EXTRA-AXIAL SPACES: Unremarkable. No intra- or extra-axial hemorrhage. No evidence of acute infarct. No intracranial mass or mass effect. There is preservation of the forde/white matter interface. Posterior fossa structures are unremarkable. Ventricles are appropriate for age. No hydrocephalus. Basal cisterns are patent. BONES/JOINTS: Unremarkable. No discrete lytic or blastic abnormalities. SINUSES: Opacified left frontal sinus. Small air-fluid level involving the left maxillary sinus. MASTOID AIR CELLS: Mastoid air cells are clear. ORBITS: Visualized globes, extraocular muscles, optic nerves and retrobulbar fat appear unremarkable. CT/Brain/Head without Contrast IMPRESSION: 1. Acute on chronic sinusitis. 2. No acute intracranial pathology. Electronically Signed: Dimitrios Jauregui MD at 2:48 EDT , CC: HARNESS INSTALLER-C Belem Hagen; Dimitrios Islsa DO Insole Lip Turner: Signed Belem Hagen Work Phone: Start: 05-16-2022 End: 05-16-2022 Chest 1 View (Portable) Comments: See Note; NOTES: [facility] [address] [place] [address] Chest 1 View (Portable) MR#: [id number] Acct: [id number] Name: ALISTAIR ARECHIGA Rep #: [id number] : 1945 F 76 From: Dimitrios Jauregui MD PCP: NONA Perea Status: REG ER Study: Chest 1 View (Portable) Date of Exam: 05/16/22 Exam# [id number] Ordering Dr: Dimitrios Islas DO EXAM: XR CHEST, 1 VIEW CLINICAL INDICATION: chest pain TECHNIQUE: Frontal view of the chest. This report was created using [employer] report generation technology. COMPARISON: 04/14/2021 FINDINGS: LUNGS AND PLEURAL SPACES: Unremarkable. No consolidation or edema. No pneumothorax. No effusion. HEART: Unremarkable. Cardiac silhouette not enlarged. MEDIASTINUM: Central airways and mediastinal contour are unremarkable. BONES/JOINTS: Degenerative changes of the spine. Degenerative changes of acromioclavicular joints. SOFT TISSUES: Unremarkable. RAD/Chest 1 View (Portable) IMPRESSION: No acute disease. Electronically Signed: Dimitrios Jauregui MD at 2:45 EDT , CC: HARNESS INSTALLER-C Belem Hagen; Dimitrios Islas DO Insole Lip Turner: Signed Belem Hagen Work Phone: Start: 05-16-2022 CT of head without contrast HARNESS INSTALLER-C Belem Ci bessy HARNESS INSTALLER Work Phone: Start: 05-16-2022 Plain chest X-ray HARNESS INSTALLER-C Belem Hagen HARNESS INSTALLER Work Phone: Start: 02-28-2022 End: 02-28-2022 Emergency Department Summary Comments: See Note; NOTES: [facility] Medical Records Department [address] [place] [address] Emergency Department Summary 02/28/22 MR#: [id number] Acct: [id number] Name: ALISTAIR ARECHIGA Rep #: [id number] : 1945 76 From: Monet Monaco MD PCP: NONA Perea Status:DEP ER Location: ED HPI <Dr. Monet Monaco MD - Last Filed: 02/28/22 16:02> History of Present Illness Chief Complaint: Dizziness <CRISTINE SIMS - Last Filed: 02/28/22 15:54> History of Present Illness Informant: patient Onset/Context/Timing Onset: Today (30) Context: Sudden Onset Narrative Narrative: Patient presents secondary to dizziness and nausea that began this morning at 06 30. Patient reports history of similar episodes with vertigo. Patient states she was diagnosed with vertigo 1/2 to 2 years ago, and has prescription of meclizine at home. Patient took a dose of meclizine at 1230, and at this time, reports significant improvement in both dizziness and nausea. Patient states with her vertigo she feels as if she is spinning. Patient denies headache, shortness of breath, abdominal pain, or vomiting. Patient states that she felt flushed earlier today and also has felt chest tightness yesterday and today. Prior similar symptoms: Yes Recent Illness/Hospitalization: Yes (Current treatment for UTI.) PFSH <Dr. Monet Monaco MD - Last Filed: 02/28/22 16:02> [facility] Medical History GERD (gastroesophageal reflux disease) Hyperlipidemia Osteoporosis Vertigo Vision loss of left eye Vision loss of right eye Home Medications estradiol 1 g VAGINAL MOFR 12/17/17 [History Last Taken 02/25/22] glucosamine HCl 500 mg tablet 500 mg PO DAILY tab 01/05/19 [History Last Taken 02/27/22] cranberry 500 mg capsule 1,000 mg PO BID cap 07/20/20 [History Last Taken 02/27/22] triamcinolone acetonide 0.5 % topical cream 1 applic TOPICAL BID 7 Days #15 g 07/20/20 [Rx Last Taken 02/26/22] levothyroxine 25 mcg tablet 25 mcg PO DAILY 02/25/22 [History Last Taken 02/28/22] ciprofloxacin HCl 500 mg tablet 500 mg PO BID 7 Days #14 tab 02/27/22 [Rx Last Taken 02/28/22] fenofibric acid (choline) 135 mg PO DAILY 02/28/22 [History Last Taken 02/27/22] oxyquinoline-sod.lauryl sulfat [Trimo-Colon Jelly] VAGINAL WE 02/28/22 [History Last Taken 02/27/22] Allergy/AdvReac Type Severity Reaction Status Date / Time sulfamethoxazole Allergy Mild Other Verified 02/28/22 13:22 [From Bactrim] trimethoprim [From Bactrim] Allergy Mild Other Verified 02/28/22 13:22 potassium clavulanate Allergy Rash Verified 02/28/22 13:22 [From Augmentin] amoxicillin trihydrate AdvReac Rash Verified 02/28/22 13:22 [From Augmentin] Family History Father Heart disease CVA (cerebral vascular accident) Surgical History H/O tubal ligation Social History Smoking Status: Never smoker alcohol intake: current details: social substance use type: does not use caffeine: Yes frequency: 1-2 times per week seatbelt use: always do you feel safe at home: Yes 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 <CRISTINE SIMS - Last Filed: 02/28/22 15:54> ROS ED Constitutional Constitutional ED: Denies chills, fever(s), sweats or weight loss Eyes Eyes: Denies blurry vision, change in vision or diplopia ENT ENT ED: Denies ear pain or sore throat Cardiovascular Cardiovascular: Reports other Details: Chest tightness across upper chest. Respiratory/Chest Respiratory/Chest: Denies cough or dyspnea Gastrointestinal Gastrointestinal: Reports nausea; Denies abdominal pain, constipation, diarrhea or vomiting Genitourinary Genitourinary ED: Denies dysuria, hematuria or urinary frequency Musculoskeletal Musculoskeletal: Denies myalgias Integumentary Denies rash Neurologic Neurologic: Denies headache(s), paresthesias or weakness Psychiatric Psychiatric: Denies anxiety or depression Endocrine Endocrinology: Denies polydipsia, polyphagia or polyuria Allergic/Immunologic Allergic/Immunologic ED: Denies mouth swelling, tongue swelling or urticaria EXAM <Dr. Monet Monaco MD - Last Filed: 02/28/22 16:02> Physical Exam Const Vital Signs: 02/28/22 13:20 02/28/22 14:24 02/28/22 15:23 Temperature 97.3 F L Temperature Source Temporal Pulse Rate 87 60 Respiratory Rate 14 15 Respiratory Effort Normal Respiratory Pattern Normal Blood Pressure 150/84 H 154/91 H Blood Pressure Mean 106 112 Pulse Ox 100 96 Oxygen Delivery Method Room Air Room Air 02/28/22 15:57 Temperature Temperature Source Pulse Rate Respiratory Rate 18 Respiratory Effort Respiratory Pattern Blood Pressure 154/91 H Blood Pressure Mean Pulse Ox Oxygen Delivery Method <CRISTINE SIMS - Last Filed: 02/28/22 15:54> Physical Exam Const Vital Signs: 02/28/22 13:20 02/28/22 14:24 02/28/22 15:23 Temperature 97.3 F L Temperature Source Temporal Pulse Rate 87 60 Respiratory Rate 14 15 Respiratory Effort Normal Respiratory Pattern Normal Blood Pressure 150/84 H 154/91 H Blood Pressure Mean 106 112 Pulse Ox 100 96 Oxygen Delivery Method Room Air Room Air 02/28/22 15:57 Temperature Temperature Source Pulse Rate Respiratory Rate 18 Respiratory Effort Respiratory Pattern Blood Pressure 154/91 H Blood Pressure Mean Pulse Ox Oxygen Delivery Method Positive well nourished and well developed General Appearance ED: well developed HEENT Reports moist mucous membranes Negative for trauma or tenderness Eyes PERRL and EOMs intact bilaterally Neck no lymphadenopathy and supple Chest Wall inspection of chest normal and palpation of chest normal Chest: other Chest tightness nonreproducible with bilateral arm movement. Resp normal respiratory effort and clear to auscultation bilaterally Cardio regular rate and regular rhythm GI normal to inspection, nondistended, normoactive bowel sounds Palpation: soft Back/Spine no CVA tenderness Extremity normal to inspection General Extremety ED: Negative for edema or tenderness General Extremity: Negative for edema Neuro oriented x3 and CN's II-XII intact bilaterally Sensorium / Orientation: alert Motor Exam: strength 5/5 throughout Psych mental status grossly normal Skin no rashes or lesions noted [facility] <Dr. Monet Monaco MD - Last Filed: 02/28/22 16:02> [facility] Lab Data Labs: Laboratory Results - last 24 hr 02/28/22 02/28/22 02/28/22 14:10 14:10 14:20 WBC 5.9 RBC 4.76 Hgb 12.5 Hct 40.1 MCV 84.2 MCH 26.3 L MCHC 31.2 L RDW Std Deviation 45.5 H RDW Coeff of Kimi 14.8 H Plt Count 333 MPV 9.3 Immature Gran % (Auto) 0.300 Neut % (Auto) 64.9 Lymph % (Auto) 24.3 [place] % (Auto) 8.0 Eos % (Auto) 2.0 Baso % (Auto) 0.5 Absolute Neuts (auto) 3.8 Absolute Lymphs (auto) 1.43 Nucleated RBC % 0 Sodium 141 Potassium 3.8 Chloride 109 H Carbon Dioxide 28.0 Anion Gap 4 L BUN 26 H Creatinine 1.44 H Estim Creat Clear Calc 25.47 Est GFR (MDRD) Af Amer 46 L Est GFR (MDRD) Non-Af 38 L BUN/Creatinine Ratio 18.1 Glucose 127 H Calcium 8.7 Troponin I High Sens < 3 L Urine Color Yellow Urine Clarity Clear Urine pH 6.5 Ur Specific Louisa 1.010 Urine Protein Negative Urine Glucose (UA) Normal Urine Ketones Negative Urine Occult Blood Negative Urine Nitrite Negative Urine Bilirubin Negative Urine Urobilinogen Normal Ur Leukocyte Esterase Negative Urine RBC 0 SEEN Urine WBC 0 SEEN Ur Squamous Epith Cells 0 SEEN Urine Bacteria 0 SEEN Urine Mucus 0 SEEN Treatment and Re-Evaluation Narrative: Patient seen and evaluated with HARNESS INSTALLER student. I personally interviewed and examined the patient. I was involved in all aspects of patient's orders, interpretation of results, and treatment. Patient presents after having episode of vertigo this morning. She states she has a history of similar and believes she turned and got out of bed too quickly. She did take Antivert prior to arrival and states that she is feeling improved at this time. She does complain of some mild upper chest tightness for the last day or 2. Denies near syncope. Patient sitting upright in bed no acute distress. Head neck examination normal. Heart is regular rate and rhythm. Lung sounds are clear. Abdomen is soft and nontender. Neuro exam is normal. EKG and lab work obtained. No significant abnormalities noted. Patient is currently on an antibiotic for UTI. Urine here is clean. Patient will continue full course of her antibiotics. Return instructions provided. <CRISTINE SIMS - Last Filed: 02/28/22 15:54> [facility] MDM Narrative Medical decision making narrative: CBC, BMP ordered. Will also obtain troponin and EKG and patient will be placed on telemetry monitor. Urinalysis will also be collected. Lab Data Attestation: I reviewed the patient's lab results. Labs: Laboratory Results - last 24 hr 02/28/22 02/28/22 02/28/22 14:10 14:10 14:20 WBC 5.9 RBC 4.76 Hgb 12.5 Hct 40.1 MCV 84.2 MCH 26.3 L MCHC 31.2 L RDW Std Deviation 45.5 H RDW Coeff of Kimi 14.8 H Plt Count 333 MPV 9.3 Immature Gran % (Auto) 0.300 Neut % (Auto) 64.9 Lymph % (Auto) 24.3 [place] % (Auto) 8.0 Eos % (Auto) 2.0 Baso % (Auto) 0.5 Absolute Neuts (auto) 3.8 Absolute Lymphs (auto) 1.43 Nucleated RBC % 0 Sodium 141 Potassium 3.8 Chloride 109 H Carbon Dioxide 28.0 Anion Gap 4 L BUN 26 H Creatinine 1.44 H Estim Creat Clear Calc 25.47 Est GFR (MDRD) Af Amer 46 L Est GFR (MDRD) Non-Af 38 L BUN/Creatinine Ratio 18.1 Glucose 127 H Calcium 8.7 Troponin I High Sens < 3 L Urine Color Yellow Urine Clarity Clear Urine pH 6.5 Ur Specific Louisa 1.010 Urine Protein Negative Urine Glucose (UA) Normal Urine Ketones Negative Urine Occult Blood Negative Urine Nitrite Negative Urine Bilirubin Negative Urine Urobilinogen Normal Ur Leukocyte Esterase Negative Urine RBC 0 SEEN Urine WBC 0 SEEN Ur Squamous Epith Cells 0 SEEN Urine Bacteria 0 SEEN Urine Mucus 0 SEEN EKG Initial EKG: Attestation: I personally reviewed and interpreted this EKG as follows: Interpretation: Sinus Rhythm and No Acute Injury Pattern Treatment and Re-Evaluation Narrative: Results reviewed. EKG is normal sinus without any signs of ischemia. CBC nonremarkable. BMP is significant for decreased renal function with eGFR at 38 and creatinine is 1.44. This is consistent with patient's most recent lab work, and per patient, this is being followed by her PCP. Urine is negative. On re-evaluation, patient is comfortably resting and alert. Results reviewed with the patient and at bedside. Patient states she has follow-up already planned with PCP next week. Return instructions given. Pt verbalized understanding. Discharge Plan Triage Chief Complaint: Dizziness ED Provider: Monet Monaco Dx/Rx/DC Orders Clinical Impression: Vertigo Instructions: Vertigo Staying Safe, ED Vertigo, Unspecified Prescriptions: No Action estradiol [Estrace] 0.01 % (0.1 mg/gram) cream 1 g VAGINAL MOFR RF: 0 glucosamine HCl 500 mg tablet 500 mg PO DAILY RF: 0 triamcinolone acetonide 0.5 % cream 1 applic topical BID 7 Days Qty: 15 RF: 2 levothyroxine [Synthroid] 25 mcg tablet 25 mcg PO DAILY RF: 0 cranberry 500 mg capsule 1,000 mg PO BID RF: 0 fenofibric acid (choline) 135 mg capsule,delayed release(DR/EC) 135 mg PO DAILY RF: 0 Trimo-Colon Jelly 0.025-0.01 % gel VAGINAL WE RF: 0 ciprofloxacin HCl 500 mg tablet 500 mg PO BID 7 Days Qty: 14 RF: 0 Primary Care Provider: Belem Hagen NP Referrals: Belem Hagen HARNESS INSTALLER, HARNESS INSTALLER-C [Primary Care Provider] - 1-2 Weeks Disposition Disposition: Home, Self Care Discharge Date/Time: 02/28/22 16:01 What to do if you have Problems For any increased pain, shortness of breath, bleeding, nausea or vomiting, chest pain, or any unexpected problems, contact your Primary Care Provider. Call [facility] ([phone]) or report to the closest Emergency Room. Call 911 if necessary. 02/28/228 <Electronically signed by Monet Monaco MD> Cosigner Signature (if applicable): CC: HARNESS INSTALLERCandida Hagen Signed Belem Hagen Work Phone: Start: 02-28-2022 End: 03-01-2022 12 Lead EKG Comments: See Note; NOTES: [facility] [address] [place] [address] 12 Lead EKG 02/28/22 1403 MR#: [id number] Acct: [id number] Name: ALISTAIR ARECHIGA Rep #: [id number] : 1945 76 From: Luis Carlos Zuluaga MD Attending Dr: Status: DEP ER Ordering Dr: Monet Monaco MD Date: 02/28/22 Location: ED Sex: F C Admitted: Test Reason : Blood Pressure : / mmHG Vent. Rate : 072 BPM Atrial Rate : 072 BPM P-R Int : 150 ms QRS Dur : 096 ms QT Int : 408 ms P-R-T Axes : 048 -18 083 degrees QTc Int : 446 ms Normal sinus rhythm Normal ECG Confirmed by ZAN GARZA, LUIS CARLOS ([id number]), movie editor DESHAWN MICHAELS ([id number]) on 03/01/2022 2:45:17 PM Referred By: NICHOLAS Confirmed By:LUIS CARLOS ZULUAGA MD 03/01/22 1445 Date Luis Carlos Zluuaga MD CC: NONA Hagen; Dr. Monet Monaco MD Signed Belem Hagen Work Phone: Start: 02-25-2022 Urine culture HARNESS INSTALLER-C Belem Hagen HARNESS INSTALLER Work Phone: Start: 02-25-2022 End: 02-25-2022 Quilting Machine Helper Office Visit Report Comments: See Note; NOTES: [facility] [address] [place] [address] OFFICE VISIT Date of Service: 02/25/22 MR#: [id number] Acct: [id number] Name: ALISTAIR ARECHIGA Rep #: [id number] : 1945 Provider: NONA Mackenzie/Sex: 76/F Location: [facility] Status: Signed Intake Vital Signs 02/25/22 09:52 Height 5 ft 1 in Weight: 176 lb BMI 33.2 BP 128/86 H Intake Visit Reasons: 3 MO pessary check Allergies sulfamethoxazole [From Bactrim] Allergy (Mild, Verified 02/25/22 09:52) Other trimethoprim [From Bactrim] Allergy (Mild, Verified 02/25/22 09:52) Other potassium clavulanate [From Augmentin] Allergy (Verified 02/25/22 09:52) Rash amoxicillin trihydrate [From Augmentin] Adverse Reaction (Verified 02/25/22 09:52) Rash Medications estradiol 1 g VAGINAL 2XW 12/17/17 [History Confirmed 02/25/22] glucosamine HCl 500 mg tablet 500 mg PO DAILY tab 01/05/19 [History Confirmed 02/25/22] cranberry 500 mg capsule 500 mg PO BID cap 07/20/20 [History Confirmed 02/25/22] triamcinolone acetonide 0.5 % topical cream 1 applic TOPICAL BID 7 Days #15 g 07/20/20 [Rx Confirmed 02/25/22] oxyquinoline 0.025 %-sodium lauryl sulfate 0.01 % vaginal gel See Rx Instructions VAGINAL .COMPLEX #113.4 g 10/09/21 [Rx Confirmed 02/25/22] levothyroxine 25 mcg tablet 25 mcg PO DAILY 02/25/22 [History Confirmed 02/25/22] nitrofurantoin macrocrystal 100 mg capsule 100 mg PO BID 7 Days #14 cap 02/25/22 [Rx Confirmed 02/25/22] Post menopausal: Yes PFSH PFSH Medical History GERD (gastroesophageal reflux disease) Hyperlipidemia Osteoporosis Vertigo Vision loss of left eye Vision loss of right eye Surgical History H/O tubal ligation Family History Father Heart disease CVA (cerebral vascular accident) Social History Smoking Status: Never smoker alcohol intake: current details: social substance use type: does not use caffeine: Yes frequency: 1-2 times per week seatbelt use: always do you feel safe at home: Yes 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 Pregancy History 3 Elective abortions Hx Para 3 Spontaneous abortions Hx # Term Pregnancies Ectopic pregnancies Hx # Pregnancies Multiple births # of living children Past Pregnancies Del. Date Name GA/Weeks Outcome Route Bth Weight Gen Labor Lgth Anesthesia Del Locatn Provider FOB Unknown 1967 Mikal Unknown 1969 [facility] Unknown 1970 [facility] HPI 3 MO pessary check Details: ALISTAIR ARECHIGA is a 76 year old who presents for pessary maintenance. She is having dysuria and frequency of urination ROS Const Constitutional: Reports system reviewed and no additional complaints, except as documented Eyes Eyes: Reports system reviewed and no additional complaints, except as documented GI GI: Denies abdominal pain or change in bowel habits : Reports as per HPI Exam Const General: cooperative and no acute distress Nutritional Appearance: well nourished Orientation: oriented x3 Speculum Exam - Vagina: normal vaginal discharge and vagina atrophic Speculum Exam - Cervix: normal appearance of the cervix Bimanual Exam- Vagina Uterus: uterine size normal Bimanual Exam- Adnexa, other: normal adnexae, no masses, non-tender, rectocele and cystocele Pelvic Support: cystocele and rectocele Other: #3 donut pessary removed. No excoriations, bleeding or unusual discharge. Pessary cleaned and easily replaced with trimosan gel. Patient tolerated well. Stable prolapse Results POC Urinalysis Dip (Clinic) Office Urine Color YELLOW Last Edit by Leia Hopkins on 02/25/22 10:04 Office Urine Clarity Clear Last Edit by Leia Hopkins on 02/25/22 10:04 Office Urine Glucose Negative Last Edit by Leia Hopkins on 02/25/22 10:04 Office Urine Ketones Trace (5) Last Edit by Leia Hopkins on 02/25/22 10:04 Off Ur Spec Louisa 1.005 Last Edit by Leia Hopkins on 02/25/22 10:04 Office Urine pH 5.0 Last Edit by Leia Hopkins on 02/25/22 10:04 Office Urine Bilirubin Negative Last Edit by Leia Hopkins on 02/25/22 10:04 Office Urine Urobilinogen Negative Last Edit by Leia Hopkins on 02/25/22 10:04 Office Urine Blood Trace Last Edit by Leia Hopkins on 02/25/22 10:04 Office Urine Blood Hemolyzed Trace Last Edit by Leia Hopkins on 02/25/22 10:04 Office Urine Protein Negative Last Edit by Leia Hopkins on 02/25/22 10:04 Office Urine Nitrate Negative Last Edit by Leia Hopkins on 02/25/22 10:04 Off Ur Leukocytes Positive Last Edit by Leia Hopkins on 02/25/22 10:04 Coding Level of Care Code Off vis,est,level 3 Diagnoses Encounter for pessary maintenance Z46.89 Vaginal pessary in situ Z92.89 UTI (urinary tract infection) N30.01 Urinary tract infection type: acute cystitis Hematuria presence: with hematuria Assessment and Plan Assessment and Plan (1) Encounter for pessary maintenance: Status: Acute (2) Vaginal pessary in situ: Status: Acute Comment: #3 donut (3) UTI (urinary tract infection): Qualifiers: Urinary tract infection type: acute cystitis Hematuria presence: with hematuria Qualified Code(s): N30.01 - Acute cystitis with hematuria Plan - Rayna Bazzi HARNESS INSTALLER, HARNESS INSTALLER-C: Reviewed S S infection UA positive, Rx macrobid and culture pending Mammogram offered and declines RTO 3 months Plan Details Other Medications: New: nitrofurantoin macrocrystal administer with food (meal or snack) 100 mg PO BID 7 days 14 caps 0RF Other Orders: Orders: Pessary Check Today POC Urinalysis Dip (Clinic) Today R30.9 Culture, Urine Today R30.9 02/25/22 1017 <Electronically signed by Rayna Bazzi NP HARNESS INSTALLER-C> Date Rayna Bazzi NP HARNESS INSTALLER-C Cosigner Signature: Date (if applicable) CC: Belem Brownleegurjit Work Phone: Start: 11-19-2021 End: 11-19-2021 Quilting Machine Helper Office Visit Report Comments: See Note; NOTES: [facility] [address] [place], [place] [address] OFFICE VISIT Date of Service: 11/19/21 MR#: [id number] Acct: [id number] Name: ALISTAIR ARECHIGA Rep #: [id number] : 1945 Provider: NONA ramirez Age/Sex: 76/F Location: [facility] Status: Signed Intake Vital Signs 11/19/21 10:34 Height 5 ft 1 in Weight: 173 lb 6 oz BMI 32.7 BP 146/80 H Intake Visit Reasons: 3 MO PESSARY CHECK Allergies sulfamethoxazole [From Bactrim] Allergy (Mild, Verified 11/19/21 10:32) Other trimethoprim [From Bactrim] Allergy (Mild, Verified 11/19/21 10:32) Other potassium clavulanate [From Augmentin] Allergy (Verified 11/19/21 10:32) Rash amoxicillin trihydrate [From Augmentin] Adverse Reaction (Verified 11/19/21 10:32) Rash Medications estradiol 1 g VAGINAL 2XW 12/17/17 [History Confirmed 11/19/21] glucosamine HCl 500 mg tablet 500 mg PO DAILY tab 01/05/19 [History Confirmed 11/19/21] cranberry 500 mg capsule 500 mg PO BID cap 07/20/20 [History Confirmed 11/19/21] triamcinolone acetonide 0.5 % topical cream 1 applic TOPICAL BID 7 Days #15 g 07/20/20 [Rx Confirmed 11/19/21] oxyquinoline 0.025 %-sodium lauryl sulfate 0.01 % vaginal gel See Rx Instructions VAGINAL .COMPLEX #113.4 g 10/09/21 [Rx Confirmed 11/19/21] Post menopausal: Yes PFSH Medical History GERD (gastroesophageal reflux disease) Hyperlipidemia Osteoporosis Vertigo Vision loss of left eye Vision loss of right eye Surgical History H/O tubal ligation Family History Father Heart disease CVA (cerebral vascular accident) Social History Smoking Status: Never smoker alcohol intake: current details: social substance use type: does not use caffeine: Yes frequency: 1-2 times per week seatbelt use: always do you feel safe at home: Yes 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 [employer] 3 MO PESSARY CHECK Details: ALISTAIR ARECHIGA is a 76 year old who presents for pessary check. Denies concerns Pregancy History 3 Elective abortions Hx Para 3 Spontaneous abortions Hx # Term Pregnancies Ectopic pregnancies Hx # Pregnancies Multiple births # of living children Past Pregnancies Del. Date Name GA/Weeks Outcome Route Bth Weight Gen Labor Lgth Anesthesia Del Locatn Provider FOB Unknown 1967 Mikal Unknown 1969 [facility] Unknown 1970 [facility] ROS Const Constitutional: Reports system reviewed and no additional complaints, except as documented Eyes Eyes: Reports system reviewed and no additional complaints, except as documented GI GI: Denies abdominal pain or change in bowel habits : Reports as per HPI Exam Const General: cooperative and no acute distress Orientation: oriented x3 External Female Exam: normal external appearance Speculum Exam - Vagina: vagina atrophic Other: Donut pessary removed. No excoriations, bleeding or unusual discharge. Prolapse persists/stable. Pessary cleaned and easily replaced with trimosan gel. Patient tolerated well. Coding Level of Care Code Off vis,est,level 3 Diagnoses Encounter for pessary maintenance Z46.89 Cystocele and rectocele with incomplete uterovaginal prolapse N81.2 Vaginal pessary in situ Z92.89 Assessment and Plan Assessment and Plan (1) Encounter for pessary maintenance: Status: Acute (2) Cystocele and rectocele with incomplete uterovaginal prolapse: Status: Chronic (3) Vaginal pessary in situ: Status: Acute Comment: #3 donut Plan - Rayna Bazzi HARNESS INSTALLER, HARNESS INSTALLER-C: Reviewed S S infection and use of trimason and estradiol cream RTO 3 months 11/19/21 1047 <Electronically signed by Rayna Bazzi NP HARNESS INSTALLER-C> Date Rayna James Signature: Date (if applicable) CC: Belem Hagen [employer]IN[employer]ICE LAWYER Work Phone: Start: 08-20-2021 End: 08-20-2021 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 [place] [address] OFFICE VISIT Date of Service: 08/20/21 MR#: [id number] Acct: [id number] Name: ALISTAIR ARECHIGA Rep #: [id number] : 1945 Provider: NONA ramirez Age/Sex: 75/F Location: [facility] Status: Signed Intake Vital Signs 08/20/21 09:49 08/20/21 09:50 08/20/21 09:53 Height 5 ft 1 in 5 ft 1 in Weight: 171 lb BMI 33.7 32.3 BP 132/78 H Intake Visit Reasons: 3 MO PESSARY CHECK Supervisor Body Assembly Required: No Is patient in pain?: No Allergies sulfamethoxazole [From Bactrim] Allergy (Mild, Verified 08/20/21 09:49) Other trimethoprim [From Bactrim] Allergy (Mild, Verified 08/20/21 09:49) Other potassium clavulanate [From Augmentin] Allergy (Verified 08/20/21 09:49) Rash amoxicillin trihydrate [From Augmentin] Adverse Reaction (Verified 08/20/21 09:49) Rash Medications estradiol 1 g VAGINAL 2XW 12/17/17 [History Confirmed 08/20/21] glucosamine HCl 500 mg tablet 500 mg PO DAILY tab 01/05/19 [History Confirmed 08/20/21] cranberry 500 mg capsule 500 mg PO BID cap 07/20/20 [History Confirmed 08/20/21] oxyquinoline 0.025 %-sodium lauryl sulfate 0.01 % vaginal gel ea VAGINAL 07/20/20 [History Confirmed 08/20/21] triamcinolone acetonide 0.5 % topical cream 1 applic TOPICAL BID 7 Days #15 g 07/20/20 [Rx Confirmed 08/20/21] hydrocodone-acetaminophen 1 tab PO Q6H PRN 3 Days #10 tab 04/14/21 [Rx Confirmed 08/20/21] Post menopausal: No Patient : No : No PFSH Medical History GERD (gastroesophageal reflux disease) Hyperlipidemia Osteoporosis Vertigo Vision loss of left eye Vision loss of right eye Surgical History H/O tubal ligation Family History Father Heart disease CVA (cerebral vascular accident) Social History Smoking Status: Never smoker alcohol intake: current details: social substance use type: does not use caffeine: Yes frequency: 1-2 times per week seatbelt use: always do you feel safe at home: Yes 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 [employer] 3 MO PESSARY CHECK Details: ALISTAIR ARECHIGA is a 75 year old who presents for pessary check. Denies concerns. Using estrogen cream and trimosan gel as directed Pregancy History 3 Elective abortions Hx Para 3 Spontaneous abortions Hx # Term Pregnancies Ectopic pregnancies Hx # Pregnancies Multiple births # of living children Past Pregnancies Del. Date Name GA/Weeks Outcome Route Bth Weight Infant Gen Labor Lgth Anesthesia Del [facility] Provider FO Unknown 1967 [place] Unknown 1969 [facility] Unknown 1970 [facility] ROS Const Constitutional: Reports system reviewed and no additional complaints, except as documented Eyes Eyes: Reports system reviewed and no additional complaints, except as documented GI GI: Denies abdominal pain or change in bowel habits : Reports as per HPI Exam Const General: cooperative and no acute distress Orientation: oriented x3 External Female Exam: normal external appearance Speculum Exam - Vagina: vagina atrophic Speculum Exam - Cervix: closed Bimanual Exam- Vagina Uterus: uterine size normal Bimanual Exam- Adnexa, other: no masses and non-tender Other: #3 Donut pessary removed. No excoriations, bleeding or unusual discharge. Pessary cleaned and easily replaced with trimosan gel. Patient tolerated well. Coding Level of Care Code Off vis,est,level 3 Diagnoses Encounter for pessary maintenance Z46.89 Cystocele and rectocele with incomplete uterovaginal prolapse N81.2 Assessment and Plan Assessment and Plan (1) Encounter for pessary maintenance: Status: Acute (2) Cystocele and rectocele with incomplete uterovaginal prolapse: Status: Chronic Orders: Orders: Pessary Check Today N81.2 Plan - Rayna Bazzi NP, HARNESS INSTALLER-C: Reviewed S S infection RTO 3 months 08/20/21 1007 <Electronically signed by Rayna Bazzi NP HARNESS INSTALLER-C> Date Rayna CASTELLANO Cosigner Signature: Date (if applicable) CC: Belem Hagen [employer] LAWYER Work Phone: Start: 06-12-2021 End: 06-12-2021 Kidney and Bladder Comments: See Note; NOTES: [facility] [address] [place] [address] Kidney and Bladder MR#: [id number] Acct: [id number] Name: ALISTAIR ARECHIGA Rep #: [id number] : 1945 F 75 From: Jem Brice DO PCP: NONA Perea Status: REG CLI Study: Kidney and Bladder Date of Exam: 06/12/21 Exam# [id number] Ordering Dr: Belem Hagen NP STUDY: RENAL ULTRASOUND - COMPLETE REASON FOR EXAM: Female, 75 years old. Stage III chronic kidney disease. TECHNIQUE: Ultrasound evaluation of the kidneys was performed with real-time and static brush-scale imaging. COMPARISON: Renal ultrasound, 11/14/2017. FINDINGS: RIGHT KIDNEY: Normal location of the right kidney, which is normal in size. The right kidney measures 10 cm. There is a normal cortex of the right kidney. The renal cortex measures 1.1 cm. There is a 4 mm hyperechoic focus There are no right renal calculi. There is no right hydronephrosis. DISTAL RIGHT URETER: There is non-visualization of the distal right ureter. There is no demonstrated right ureterovesical junction calculus. There is no demonstrated right ureteral jet. LEFT KIDNEY: Normal location of the left kidney, which is normal in size. The left kidney measures 10.9 cm. There is a normal cortex of the left kidney. The renal cortex measures 1.6 cm. There is a 5.3 x 5.9 x 5.3 cm simple cyst in the lower pole. There are no left renal calculi. There is no left hydronephrosis. DISTAL LEFT URETER: There is non-visualization of the distal left ureter. There is no demonstrated left ureterovesical junction calculus. There is no demonstrated left ureteral jet. BLADDER: The distended urinary bladder has a volume of 144 ml. There is a normal wall thickness of the distended urinary bladder. There is no demonstrated mass within the urinary bladder. There are no demonstrated bladder calculi. US/Kidney and Bladder IMPRESSION: 1. Large left renal cyst unchanged from prior exam. This appears simple and requires no further follow-up. 2. Small echogenic focus in the right kidney. Question angiomyolipoma. This is unchanged from the prior study. 3. Normal urinary bladder. Electronically Signed: Jem Brice DO at 23:02 EDT Tel [phone], Service support , CC: NONA Hagen Insole Lip Turner: Signed Belem Hagen CNP Work Phone: Start: 05-21-2021 End: 05-21-2021 Quilting Machine Helper Office Visit Report Comments: See Note; NOTES: [facility] [address] [place] [address] OFFICE VISIT Date of Service: 05/21/21 MR#: [id number] Acct: [id number] Name: ALISTAIR ARECHIGA Rep #: [id number] : 1945 Provider: NONA ramirez Age/Sex: 75/F Location: [facility] Status: Signed Intake Vital Signs 05/21/21 09:20 05/21/21 09:22 Height 5 ft 1 in Weight: 173 lb 6 oz BMI 32.7 33.7 BP 142/86 H Intake Visit Reasons: 3 MO PESSARY CHECK Allergies sulfamethoxazole [From Bactrim] Allergy (Mild, Verified 05/21/21 09:20) Other trimethoprim [From Bactrim] Allergy (Mild, Verified 05/21/21 09:20) Other potassium clavulanate [From Augmentin] Allergy (Verified 05/21/21 09:20) Rash amoxicillin trihydrate [From Augmentin] Adverse Reaction (Verified 05/21/21 09:20) Rash Medications estradiol 1 g VAGINAL 2XW 12/17/17 [History Confirmed 05/21/21] glucosamine HCl 500 mg tablet 500 mg PO DAILY tab 01/05/19 [History Confirmed 05/21/21] cranberry 500 mg capsule 500 mg PO BID cap 07/20/20 [History Confirmed 05/21/21] oxyquinoline 0.025 %-sodium lauryl sulfate 0.01 % vaginal gel ea VAGINAL 07/20/20 [History Confirmed 05/21/21] triamcinolone acetonide 0.5 % topical cream 1 applic TOPICAL BID 7 Days #15 g 07/20/20 [Rx Confirmed 05/21/21] hydrocodone-acetaminophen 1 tab PO Q6H PRN 3 Days #10 tab 04/14/21 [Rx Confirmed 05/21/21] Post menopausal: Yes PFSH Medical History GERD (gastroesophageal reflux disease) Hyperlipidemia Osteoporosis Vertigo Vision loss of left eye Vision loss of right eye Surgical History H/O tubal ligation Family History Father Heart disease CVA (cerebral vascular accident) Social History Smoking Status: Never smoker alcohol intake: current details: social substance use type: does not use caffeine: Yes frequency: 1-2 times per week seatbelt use: always do you feel safe at home: Yes 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 HPI 3 MO PESSARY CHECK Details: ALISTAIR ARECHIGA is a 75 year old who presents for pessary check. Declines concerns. Pregancy History 3 Elective abortions Hx Para 3 Spontaneous abortions Hx # Term Pregnancies Ectopic pregnancies Hx # Pregnancies Multiple births # of living children Past Pregnancies Del. Date Name GA/Weeks Outcome Route Bth Weight Infant Gen Labor Lgth Anesthesia Del Locat Provider FOB Unknown 1967 [place] Unknown 1969 [facility] Unknown 1970 Sil [place] Const Constitutional: Reports system reviewed and no additional complaints, except as documented Eyes Eyes: Reports system reviewed and no additional complaints, except as documented GI GI: Denies abdominal pain or change in bowel habits : Reports as per HPI Exam Const General: cooperative and no acute distress External Female Exam: normal external appearance Speculum Exam - Vagina: vagina atrophic Other: Donut pessary removed. No excoriations, bleeding or unusual discharge. Pessary cleaned and easily replaced with trimosan gel. Patient tolerated well. Coding Level of Care Code Off vis,est,level 3 Diagnoses Encounter for pessary maintenance Z46.89 Cystocele and rectocele with incomplete uterovaginal prolapse N81.2 Assessment and Plan Assessment and Plan (1) Encounter for pessary maintenance: Status: Acute (2) Cystocele and rectocele with incomplete uterovaginal prolapse: Status: Chronic Plan - Rayna Bazzi NP, HARNESS INSTALLER-C: Reviewed S S infection Patient declines mammograms RTO 3 months 05/21/21 0942 <Electronically signed by Rayna Bazzi NP HARNESS INSTALLER-C> Date Rayna Bazzi NP HARNESS INSTALLER-C Cosigner Signature: Date (if applicable) CC: Belem Hagen CNP Work Phone: Start: 04-14-2021 End: 04-14-2021 Emergency Department Summary Comments: See Note; NOTES: [facility] Medical Records Department [address] [place] [address] Emergency Department Summary 04/14/21 MR#: [id number] Acct: [id number] Name: ALISTAIR ARECHIGA Rep #: [id number] : 1945 75 From: Monet Monaco MD PCP: Belem Hagen, HARNESS INSTALLER-C Status:DEP ER Location: ED HPI HPI - Fall History of Present Illness Chief Complaint: Fall Informant: patient Occured/Mechanism Occurred: Days Narrative: Patient presents after falling at the local [employer] store 2 days ago and striking her right lateral ribs. Pain/Injury Pain Location: chest Quality of Pain: Sharp and Aching Current Severity: Mild Maximum Severity: Moderate Worsened by: Movement Narrative Narrative: Patient was shopping at a local store 2 days ago when she rolled her ankle and fell striking her right ribs. She continues to have significant pain especially with movement. She denies any other injury. She denies shortness of breath. [facility] Medical History GERD (gastroesophageal reflux disease) Hyperlipidemia Osteoporosis Vertigo Vision loss of left eye Vision loss of right eye Home Medications estradiol 1 g VAGINAL 2XW 12/17/17 [History Last Taken Unknown] glucosamine HCl 500 mg tablet 500 mg PO DAILY tab 01/05/19 [History Last Taken Unknown] cranberry 500 mg capsule 500 mg PO BID cap 07/20/20 [History Last Taken Unknown] oxyquinoline 0.025 %-sodium lauryl sulfate 0.01 % vaginal gel ea VAGINAL 07/20/20 [History Last Taken Unknown] triamcinolone acetonide 0.5 % topical cream 1 applic TOPICAL BID 7 Days #15 g 07/20/20 [Rx Last Taken Unknown] hydrocodone-acetaminophen 1 tab PO Q6H PRN 3 Days #10 tab 04/14/21 [Rx Last Taken Unknown] Allergy/AdvReac Type Severity Reaction Status Date / Time sulfamethoxazole Allergy Mild Other Verified 04/14/21 19:05 [From Bactrim] trimethoprim [From Bactrim] Allergy Mild Other Verified 04/14/21 19:05 potassium clavulanate Allergy Rash Verified 04/14/21 19:05 [From Augmentin] amoxicillin trihydrate AdvReac Rash Verified 04/14/21 19:05 [From Augmentin] Family History Father Heart disease CVA (cerebral vascular accident) Surgical History H/O tubal ligation Social History Smoking Status: Never smoker alcohol intake: current details: social substance use type: does not use caffeine: Yes frequency: 1-2 times per week seatbelt use: always do you feel safe at home: Yes 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 ROS ROS ED Constitutional Constitutional ED: Denies chills or fever(s) Eyes Eyes: Denies change in vision ENT ENT ED: Denies sore throat Cardiovascular Cardiovascular: Reports chest pain Respiratory/Chest Respiratory/Chest: Denies cough or dyspnea Gastrointestinal Gastrointestinal: Denies abdominal pain, diarrhea, nausea or vomiting Genitourinary Genitourinary ED: Denies dysuria Musculoskeletal Musculoskeletal: Reports arthralgias; Denies back pain Integumentary Denies rash Neurologic Neurologic: Denies headache(s) or weakness Psychiatric Psychiatric: Denies anxiety or depression Endocrine Endocrinology: Denies polydipsia or polyuria Allergic/Immunologic Allergic/Immunologic ED: Denies urticaria EXAM Physical Exam Const Vital Signs: 04/14/21 19:03 04/14/21 19:48 04/14/21 20:13 Temperature 97.6 F L Temperature Source Temporal Pulse Rate 77 Respiratory Rate 18 Blood Pressure 205/141 H 183/92 H Blood Pressure Mean 162 122 Pulse Ox 99 Oxygen Delivery Method Room Air Room Air Positive well nourished and well developed General Appearance ED: well developed HEENT Reports normocephalic and head/scalp atraumatic Eyes PERRL and EOMs intact bilaterally Neck supple Neck Narrative: No C-spine tenderness. Chest Wall inspection of chest normal Chest Narrative: Tenderness along the right anterior lateral lower chest wall. No crepitus. No abrasions or ecchymoses. Resp normal respiratory effort and clear to auscultation bilaterally Cardio regular rate and regular rhythm GI normal to inspection, nondistended, normoactive bowel sounds Palpation: soft Back/Spine no CVA tenderness Extremity Extremity Narrative: Superficial healing abrasion to the right palm. Mild muscular tenderness throughout the right upper extremity. Full range of motion. Strong distal pulses. Neuro oriented x3 and no sensory deficits noted Sensorium / Orientation: alert Psych mental status grossly normal Skin no rashes or lesions noted MDM MDM MDM Narrative Medical decision making narrative: Patient was given a dose of [place] for pain. Rib series with chest x-ray is obtained. Lab Data Attestation: I reviewed the patient's lab results. Radiography Diagnostic Testing: Radiology Impression Ribs w/Chest X-Ray 04/14/21 20:15 IMPRESSION: No pneumothorax. No displaced rib fractures. Normal chest. Electronically Signed: Juni Macias MD at 20:59 EDT Tel , Service support , Treatment and Re-Evaluation Comments:: Rib series with chest x-ray is reviewed. Per my interpretation no obvious displaced rib fracture or pneumothorax. Radiologist interpretation is reviewed. Test results discussed with the patient. She will be given a prescription for [place]. Patient had significantly elevated blood pressure on arrival. On repeat evaluation this is dropped approximately 25 systolic points. Patient states she does get her blood pressure checked regularly and is not normally elevated. On review of prior ER visits blood pressures ranged anywhere from 120-180s systolic. She is advised to monitor this at home and follow-up with her PCP. Discharge Plan Triage Chief Complaint: Fall ED Provider: Monet Monaco Dx/Rx/DC Orders Clinical Impression: Contusion of rib on right side, Hypertension Instructions: ED Contusion, Rib Prescriptions: New hydrocodone-acetaminophen 5-325 mg tablet 1 tab PO Q6H PRN (Reason: pain) 3 Days Qty: 10 RF: 0 No Action estradiol [Estrace] 0.01 % (0.1 mg/gram) cream 1 g VAGINAL 2XW RF: 0 glucosamine HCl 500 mg tablet 500 mg PO DAILY RF: 0 Trimo-Colon Jelly 0.025-0.01 % gel VAGINAL RF: 0 triamcinolone acetonide 0.5 % cream 1 applic topical BID 7 Days Qty: 15 RF: 2 cranberry 500 mg capsule 500 mg PO BID RF: 0 Primary Care Provider: Belem Hagen NP Referrals: Belem Hagen NP, HARNESS INSTALLER-C [Primary Care Provider] - 1-2 Weeks Disposition Disposition: Home, self care What to do if you have Problems For any increased pain, shortness of breath, bleeding, nausea or vomiting, chest pain, or any unexpected problems, contact your Primary Care Provider. Call [facility] ([phone]) or report to the closest Emergency Room. Call 911 if necessary. 04/14/212321 <Electronically signed by Monet Monaco MD> Cosigner Signature (if applicable): CC: HARNESS INSTALLER-C Belem Hagen Signed Belem Hagen CRIM[employer]AL JUSTICE LAWYER Work Phone: Start: 04-14-2021 End: 04-14-2021 Ribs Uni Min 3V w/PA Chest Comments: See Note; NOTES: [facility] [address] [place] [address] Ribs Uni Min 3V w/PA Chest MR#: [id number] Acct: [id number] Name: ALISTAIR ARECHIGA Rep #: [id number] : 1945 F 75 From: Juni Arauz PCP: NONA Perea Status: REG ER Study: Ribs Uni Min 3V w/PA Chest Date of Exam: 04/14 Exam# [id number] Ordering Dr: Monet Monaco MD STUDY: X-RAY - UNILATERAL RIBS ( RIGHT ) WITH CHEST REASON FOR EXAM: Female, 75 years old. fall trauma possible rib fracture chest pain TECHNIQUE - RIBS: 4 view(s) of the ribs. TECHNIQUE - CHEST: Frontal view of the chest COMPARISON: 13 June 2020 FINDINGS - RIBS: There are no displaced rib fractures. FINDINGS - CHEST: The lungs are clear and expanded. There is no demonstrated pleural abnormality. Normal size heart. Normal mediastinum and es. Normal visualized pulmonary arteries. Normal visualized aortic arch and descending thoracic aorta. Normal visualized thoracic spine. Normal visualized ribs, clavicles, and shoulders. There is no demonstrated abnormality of the visualized soft tissue structures of the upper abdomen. RAD/Ribs Uni Min 3V w/PA Chest IMPRESSION: No pneumothorax. No displaced rib fractures. Normal chest. Electronically Signed: Juni Macias MD at 20:59 EDT Tel , Service support , CC: NONA Hagen; Dr. Monet Monaco MD Insole Lip Turner: Signed Belem Hagen CNP Work Phone: Start: 02-28-2021 End: 02-28-2021 Dexa Bone Density Study Comments: See Note; NOTES: [facility] [address] [place] [id number] Dexa Bone Density Study MR#: [id number] Acct: [id number] Name: ALISTAIR ARECHIGA Rep #: [id number] : 1945 F 75 From: Stew lamb MD PCP: NONA Perea Status: [facility] Study: Dexa Bone Density Study Date of Exam: 02/28/21 Exam# [id number] Ordering Dr: Belem Hagen NP STUDY: DUAL ENERGY X-RAY ABSORPTIOMETRY / DXA REASON FOR EXAM: Female, 75 years old. [id number]. The patient is postmenopausal. No loss of height. TECHNIQUE: Bone Mineral Density (BMD) measurements of lumbar spine and bilateral hips were obtained. COMPARISON: Comparison is made with prior study dated 08/06/2018. FINDINGS: Lumbar Spine (L1-L4): g/cm2 (0.989) / T-score (-1.5) / Z-score (0.2) Findings are suggestive of osteopenia with a low fracture risk. Left Femur Total: g/cm2 (1.012) / T-score (0.0) / Z-score (1.7) Left Femoral Neck: g/cm2 (0.835) / T-score (-1.5) / Z-score (0.4) Right Femur Total: g/cm2 (0.977) / T-score (-0.2) / Z-score (1.4) Right Femoral Neck: g/cm2 (0.804) / T-score (-1.7) / Z-score (0.2) The T-Scores on the most recent prior examination were: Lumbar Spine (L1-L4): There has been improvement of bone density since the previous examination. Left Femur Total: which represents an improvement of 3.2%. Right Femur Total: which represents a worsening of 0.2%. BD/Dexa Bone Density Study IMPRESSION: The patient is considered osteopenic as outlined below according to World Jorje Organization (WHO) criteria with a moderate fracture risk. There has been improvement of bone density since the previous examination. Reference Information: The T-score is the number of standard deviations above or below the standard which is normal for young adults at their peak bone mineral density. The World Health Organization (WHO) interprets the T-scores as follows: Above -1 Normal bone density Between -1 and -2.5 Osteopenia Equal to / or below -2.5 Osteoporosis As a practical clinical guideline, osteopenia may be graded as follows: Mild -1 through -1.5 Moderate -1.6 through -2.0 Severe -2.1 through -2.4 The Z-score is the number of standard deviations above or below age-matched controls. A Z-score of less than -1.5 would be considered abnormal. References: 1. NIH Osteoporosis and Related Bone Diseases www osteo.org 2. International Society for Clinical Densitometry www iscd.org 3. National Osteoporosis Foundation www nof.org Electronically Signed: Stew Hill MD at 15:49 EDT , Service support , CC: NONA Hagen Insole Lip Turner: Signed Belem Hagen [facility] Work Phone: Start: 02-15-2021 End: 02-15-2021 Quilting Machine Helper Office Visit Report Comments: See Note; NOTES: [facility] 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: No Accompanied by: self Allergies sulfamethoxazole [From Bactrim] Allergy (Mild, Verified 02/15/21 09:41) Other trimethoprim [From Bactrim] Allergy (Mild, Verified 02/15/21 09:41) Other potassium clavulanate [From Augmentin] Allergy (Verified 02/15/21 09:41) Rash amoxicillin trihydrate [From Augmentin] Adverse Reaction (Verified 02/15/21 09:41) Rash Medications estradiol 1 g VAGINAL 2XW 12/17/17 [History Confirmed 02/15/21] glucosamine HCl 500 mg tablet 500 mg PO DAILY tab 01/05/19 [History Confirmed 02/15/21] cranberry 500 mg capsule 500 mg PO BID cap 07/20/20 [History Confirmed 02/15/21] oxyquinoline 0.025 %-sodium lauryl sulfate 0.01 % vaginal gel ea VAGINAL 07/20/20 [History Confirmed 02/15/21] triamcinolone acetonide 0.5 % topical cream 1 applic TOPICAL BID 7 Days #15 g 07/20/20 [Rx Confirmed 02/15/21] Is last menstrual period known: No Post menopausal: Yes Patient : No : No PFSH Medical History (Updated 02/15/21 @ 09:48 by Leia Hopkins) Hyperlipidemia (Acute) Vertigo (Acute) Surgical History H/O tubal ligation (Acute) Family History Father Heart disease CVA (cerebral vascular accident) Social History (Updated 02/15/21 @ 10:03 by Rayna Bazzi NP, HARNESS INSTALLER-C) Smoking Status: Never smoker alcohol intake: current details: social substance use type: does not use caffeine: Yes frequency: 1-2 times per week seatbelt use: always do you feel safe at home: Yes 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 HPI 3 MO PESSARY CHECK: Details: ALISTAIR ARECHIGA is a 75 year old who presents for pessary maintenance. Denies concerns Declines mammograms Female Reproductive History Questions: Metorrhagia: No, Sexually active: No Pregancy History 3 Elective abortions Hx Para 3 Spontaneous abortions Hx # Term Pregnancies Ectopic pregnancies Hx # Pregnancies Multiple births # of living children Past Pregnancies Del. Date Name GA/Weeks Outcome Route Bth Weight Infant Gen Labor Lgth Anesthesia Del [facility] Provider FOB Unknown 1967 [place] Unknown 1969 [facility] Unknown 1970 [facility] ROS Const Constitutional: Reports system reviewed and no additional complaints, except as docu Eyes Eyes: Reports system reviewed and no additional complaints, except as docu GI GI: Denies abdominal pain or change in bowel habits : Reports as per HPI Exam Const General: cooperative, no acute distress Nutritional Appearance: well nourished Orientation: oriented x3 External Female Exam: normal external appearance Other: Donut pessary removed. No excoriations, bleeding or unusual discharge. Pessary cleaned and easily replaced with trimosan gel. Patient tolerated well. Assessment Plan Problems 1. Encounter for pessary maintenance Z46.89 2. Cystocele and rectocele with incomplete uterovaginal prolapse N81.2 Plan Reviewed S S infection RTO 3 months Coding Level of Care Code Off vis,est,level 3 Diagnoses Encounter for pessary maintenance Z46.89 Cystocele and rectocele with incomplete uterovaginal prolapse N81.2 02/15/21 1003 <Electronically signed by Rayna CASTELLANO> Date Rayna CASTELLANO Cosigner Signature: Date (if applicable) CC: Belem Hagen Start: 11-16-2020 End: 11-16-2020 Quilting Machine Helper Office Visit Report Comments: See Note; NOTES: [facility] [address] [place] [address] OFFICE VISIT Date of Service: 11/16/20 MR#: [id number] Acct: [id number] Name: ALISTAIR ARECHIGA Rep #: [id number] : 1945 Provider: NONA ramirez Age/Sex: 74/F Location: 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 Required: No Accompanied by: self Is patient in pain?: No Allergies sulfamethoxazole [From Bactrim] Allergy (Mild, Verified 11/16/20 10:52) Other trimethoprim [From Bactrim] Allergy (Mild, Verified 11/16/20 10:52) Other potassium clavulanate [From Augmentin] Allergy (Verified 11/16/20 10:52) Rash amoxicillin trihydrate [From Augmentin] Adverse Reaction (Verified 11/16/20 10:52) Rash Medications estradiol 1 g VAGINAL 2XW 12/17/17 [History Confirmed 11/16/20] glucosamine HCl 500 mg tablet 500 mg PO DAILY tab 01/05/19 [History Confirmed 11/16/20] cranberry 500 mg capsule 500 mg PO BID cap 07/20/20 [History Confirmed 11/16/20] oxyquinoline 0.025 %-sodium lauryl sulfate 0.01 % vaginal gel ea VAGINAL 07/20/20 [History Confirmed 11/16/20] triamcinolone acetonide 0.5 % topical cream 1 applic TOPICAL BID 7 Days #15 g 07/20/20 [Rx Confirmed 11/16/20] Is last menstrual period known: No Post menopausal: Yes Patient : No : No PFSH Medical History Hyperlipidemia (Acute) Surgical History H/O tubal ligation (Acute) Family History Father Heart disease CVA (cerebral vascular accident) Social History (Updated 11/16/20 @ 11:17 by Rayna Bazzi HARNESS INSTALLER, [employer] INST[employer]ER-C) Smoking Status: Never smoker alcohol intake: current details: social substance use type: does not use caffeine: Yes frequency: 1-2 times per week seatbelt use: always do you feel safe at home: Yes 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 HPI 3 MO PESSARY CHECK: Details: ALISTAIR ARECHIGA is a 74 year old who presents for pessary maintenance. Denies concerns Pregancy History 3 Elective abortions Hx Para 3 Spontaneous abortions Hx # Term Pregnancies Ectopic pregnancies Hx # Pregnancies Multiple births # of living children Past Pregnancies Del. Date Name GA/Weeks Outcome Route Bth Weight Gen Labor Lgth Anesthesia Del [facility] Provider FOB Unknown 1967 [place] Unknown 1969 [facility] Unknown 1970 [facility] ROS Const Constitutional: Reports system reviewed and no additional complaints, except as docu : Reports system reviewed and no additional complaints, except as docu Exam Const General: cooperative, no acute distress Orientation: oriented x3 Resp Effort Inspection: normal respiratory effort External Female Exam: normal external appearance Other: Donut pessary removed. No excoriations, bleeding or unusual discharge.Persistent prolapses, stable. Pessary cleaned and easily replaced with trimosan gel. Patient tolerated well. Assessment Plan Problems 1. Encounter for pessary maintenance Z46.89 2. Cystocele and rectocele with incomplete uterovaginal prolapse N81.2 Plan Reviewed S S infection RTO 3 months. Coding Level of Care Code Off vis,est,level 3 Diagnoses Encounter for pessary maintenance Z46.89 Cystocele and rectocele with incomplete uterovaginal prolapse N81.2 11/16/20 1117 <Electronically signed by Rayna CASTELLANO> Date Rayna CASTELLANO Cosigner Signature: Date (if applicable) CC: Belem Hagen Start: 08-08-2020 End: 08-08-2020 Quilting Machine Helper Office Visit Report Comments: See Note; NOTES: [facility] 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: No Accompanied by: self Allergies sulfamethoxazole [From Bactrim] Allergy (Mild, Verified 08/08/20 13:53) Other trimethoprim [From Bactrim] Allergy (Mild, Verified 08/08/20 13:53) Other potassium clavulanate [From Augmentin] Allergy (Verified 08/08/20 13:53) Rash amoxicillin trihydrate [From Augmentin] Adverse Reaction (Verified 08/08/20 13:53) Rash Medications estradiol 1 g VAGINAL 2XW 12/17/17 [History Confirmed 08/08/20] glucosamine HCl 500 mg tablet 500 mg PO DAILY tab 01/05/19 [History Confirmed 08/08/20] cranberry 500 mg capsule 500 mg PO BID cap 07/20/20 [History Confirmed 08/08/20] fluconazole 150 mg tablet 150 mg PO .COMPLEX #1 tab 07/20/20 [Rx Confirmed 08/08/20] oxyquinoline 0.025 %-sodium lauryl sulfate 0.01 % vaginal gel ea VAGINAL 07/20/20 [History Confirmed 08/08/20] triamcinolone acetonide 0.5 % topical cream 1 applic TOPICAL BID 7 Days #15 g 07/20/20 [Rx Confirmed 08/08/20] Is last menstrual period known: No Post menopausal: Yes Patient : No : No PFSH Medical History Hyperlipidemia (Acute) Surgical History H/O tubal ligation (Acute) Family History Father Heart disease CVA (cerebral vascular accident) Social History (Updated 08/08/20 @ 14:20 by Rayna Bazzi NP, [employer]ESS INSTALLER-C) Smoking Status: Never smoker alcohol intake: current details: social substance use type: does not use caffeine: Yes frequency: 1-2 times per week seatbelt use: always do you feel safe at home: Yes 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 HPI culture and UA: Details: ALISTAIR ARECHIGA is a 74 year old who presents for persistent vaginal irritation. No discharge Was seen on 07/20 and was at that time having symptoms but was also taking antibiotic for UTI. That visit was given diflucan and triamcinolone cream. Symptoms persisted and called when I was out of office and Dr Bautista sent Rx for terazol 7. States that helped some but symptoms immediately returned. Has pessary/cleaned and replaced 07/20/20. Has not used estrogen cream X 1 week due to other RX Pregancy History 3 Elective abortions Hx Para 3 Spontaneous abortions Hx # Term Pregnancies Ectopic pregnancies Hx # Pregnancies Multiple births # of living children Past Pregnancies Del. Date Name GA/Weeks Outcome Route Bth Weight [facility] [place] Unknown [facility] Unknown 1970 [facility] ROS Const Constitutional: Reports system reviewed and no additional complaints, except as docu Eyes Eyes: Reports system reviewed and no additional complaints, except as docu GI GI: Denies abdominal pain or change in bowel habits : Reports as per HPI Exam Const General: no acute distress Nutritional Appearance: well nourished Orientation: oriented x3 External Female Exam: erythema (kofi posterior introitus; atrophic urethra) Speculum Exam - Vagina: atrophic vaginal mucosa, other (minimal discharge. Pessary in place) Results POC Urinalysis Dip (Clinic) Office Urine Color YELLOW Last Edit by Leia Hopkins on 08/08/20 13:57 Office Urine Clarity Clear Last Edit by Leia Hopkins on 08/08/20 13:57 Office Urine Glucose Negative Last Edit by Leia Hopkins on 08/08/20 13:57 Office Urine Ketones Negative Last Edit by Leia Hopkins on 08/08/20 13:57 Off Ur Spec Louisa 1.020 Last Edit by Leia Hopkins on 08/08/20 13:57 Office Urine pH 5.0 Last Edit by Leia Hopkins on 08/08/20 13:57 Office Urine Bilirubin Negative Last Edit by Leia Hopkins on 08/08/20 13:57 Office Urine Urobilinogen Negative Last Edit by Leia Hopkins on 08/08/20 13:57 Office Urine Blood Negative Last Edit by Leia Hopkins on 08/08/20 13:57 Office Urine Blood Hemolyzed Negative Last Edit by Leia Hopkins on 08/08/20 13:57 Office Urine Protein Negative Last Edit by Leia Hopkins on 08/08/20 13:57 Office Urine Nitrate Negative Last Edit by Leia Hopkins on 08/08/20 13:57 Off Ur Leukocytes Negatve Last Edit by Leia Hopkins on 08/08/20 13:57 Assessment Plan Problems 1. Acute vaginitis N76.0 2. Dysuria R30.0 3. Vaginal pessary in situ Z96.0 #3 donut Plan UA negative, culture pending due to recurrent UTI hx Comp vaginal culture-call results Triamcinolone bid, prn Estradiol cream small amount at introitus QHS until culture resulted Orders Orders: POC Urinalysis Dip (Clinic) Today N39.0 Culture, Urine Today N39.0 Culture, Genital Comprehensive Today N89.8 Coding Level of Care Code Off vis,est,level 3 Diagnoses Acute vaginitis N76.0 ?Chronicity: acute Dysuria R30.0 Vaginal pessary in situ Z96.0 08/08/20 1420 <Electronically signed by Rayna CASTELLANO> Date Rayna CASTELLANO Cosigner Signature: Date (if applicable) CC: Belem Hagen Start: 07-20-2020 End: 07-20-2020 Quilting Machine Helper Office Visit Report Comments: See Note; NOTES: [facility] 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 Assembly Required: No Accompanied by: Self Allergies sulfamethoxazole [From Bactrim] Allergy (Mild, Verified 07/20/20 09:32) Other trimethoprim [From Bactrim] Allergy (Mild, Verified 07/20/20 09:32) Other potassium clavulanate [From Augmentin] Allergy (Verified 07/20/20 09:32) Rash amoxicillin trihydrate [From Augmentin] Adverse Reaction (Verified 07/20/20 09:32) Rash Medications estradiol 1 g VAGINAL 2XW 12/17/17 [History Confirmed 07/20/20] glucosamine HCl 500 mg tablet 500 mg PO DAILY tab 01/05/19 [History Confirmed 07/20/20] cranberry 500 mg capsule 500 mg PO BID cap 07/20/20 [History Confirmed 07/20/20] fluconazole 150 mg tablet 150 mg PO .COMPLEX #1 tab 07/20/20 [Rx Confirmed 07/20/20] oxyquinoline 0.025 %-sodium lauryl sulfate 0.01 % vaginal gel ea VAGINAL 07/20/20 [History Confirmed 07/20/20] triamcinolone acetonide 0.5 % topical cream 1 applic TOPICAL BID 7 Days #15 g 07/20/20 [Rx Confirmed 07/20/20] Is last menstrual period known: No Post menopausal: Yes Patient : No : No PFSH PFSH Medical History Hyperlipidemia (Acute) Surgical History H/O tubal ligation (Acute) Family History Father Heart disease CVA (cerebral vascular accident) Social History (Updated 07/20/20 @ 09:56 by NONA May) Smoking Status: Never smoker alcohol intake: current details: social substance use type: does not use caffeine: Yes frequency: 1-2 times per week seatbelt use: always do you feel safe at home: Yes 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 Pregancy History 3 Elective abortions Hx Para 3 Spontaneous abortions Hx # Term Pregnancies Ectopic pregnancies Hx # Pregnancies Multiple births # of living children Past Pregnancies Del. Date Name GA/Weeks Outcome Route Bth Weight Infant Gen Labor Lgth Anesthesia Del Locatn Provider FOB Unknown 1967 [place] Unknown 1969 [facility] Unknown 1970 [facility] HPI 3 mo Pessary check: Details: ALISTAIR ARECHIGA is a 74 year old who presents for pessary maintenance. Having external burning and itching X 1 week. ROS Const Constitutional: Reports as per HPI : Reports as per HPI Exam Const General: cooperative, no acute distress Orientation: oriented x3 External Female Exam: erythema Speculum Exam - Vagina: abnormal vaginal discharge (has not used estrace cream X 4 days. ) white, vaginal erythema Other: Pessary removed. Persistant prolapes. No excoriation. Pessary cleaned and replaced with trimosan gel Results POC Urinalysis Dip (Clinic) Office Urine Color Yellow Last Edit by Leia Hopkins on 07/20/20 09:43 Office Urine Clarity Clear Last Edit by Leia Hopkins on 07/20/20 09:43 Office Urine Glucose Negative Last Edit by Leia Hopkins on 07/20/20 09:43 Office Urine Ketones Negative Last Edit by Leia Hopkins on 07/20/20 09:43 Off Ur Spec [place] 1.020 Last Edit by Leia Hopkins on 07/20/20 09:43 Office Urine pH 5.0 Last Edit by Leia Hopkins on 07/20/20 09:43 Office Urine Bilirubin Negative Last Edit by Leia Hopkins on 07/20/20 09:43 Office Urine Urobilinogen Negative Last Edit by Leia Hopkins on 07/20/20 09:43 Office Urine Blood Negative Last Edit by Leia Hopkins on 07/20/20 09:43 Office Urine Blood Hemolyzed Negative Last Edit by Leia Hopkins on 07/20/20 09:43 Office Urine Protein Negative Last Edit by Leia Hopkins on 07/20/20 09:43 Office Urine Nitrate Negative Last Edit by Leia Hopkins on 07/20/20 09:43 Off Ur Leukocytes Negatve Last Edit by Leia Hopkins on 07/20/20 09:43 Assessment Plan Problems 1. Pessary maintenance Z46.89 2. Cystocele and rectocele with incomplete uterovaginal prolapse N81.2 3. Monilial vaginitis B37.3 Plan REviewed S S infection Rx triamcinolone and fluconazole RTO 3 mo, prn Orders Orders: Pessary Check Today POC Urinalysis Dip (Clinic) Today R30.0 Culture, Urine Today R30.0 Urinalysis, Routine (Dipstick) Today R30.0 Medications New: triamcinolone acetonide 0.5% peasized amount as instructed 1 applic topical BID 7 days 15 grams 2RF fluconazole 150 mg PO take one po now 1 tab 0RF Coding Level of Care Code Off vis,est,level 3 Diagnoses Pessary maintenance Z46.89 Cystocele and rectocele with incomplete uterovaginal prolapse N81.2 Monilial vaginitis B37.3 07/20/20 0956 <Electronically signed by Rayna CASTELLANO> Date Rayna CASTELLANO Cosigner Signature: Date (if applicable) CC: Belem Hagen Start: 06-13-2020 End: 06-13-2020 Brain without Contrast Comments: See Note; NOTES: [facility] [address] [place] [id number] Brain without Contrast MR#: [id number] Acct: [id number] Name: ALISTAIR ARECHIGA Rep #: [id number] : 1945 F 74 From: Faizan Hodges MD PCP: NONA Perea Status: REG ER Study: Brain without Contrast Date of Exam: 06/13/20 Exam# [id number] Ordering Dr: Abdoulaye Nova DO STUDY: MRI BRAIN WITHOUT CONTRAST REASON FOR EXAM: Female, 74 years old. dizziness SINCE THIS MORNING (RESOLVED NOW) TECHNIQUE: Standardized multiplanar fat and water weighted pulse sequences were obtained. COMPARISON: None. FINDINGS: Normal size of the ventricles and extra-axial spaces for the patient''s age. Normal white matter tracts of the supratentorial brain. There is no evidence for recent intracranial ischemia or other cause of cytotoxic edema on diffusion weighted imaging (DWI). Normal T2* images of the brain without demonstrated susceptibility artifact. There is no demonstrated hemosiderin stain. Normal bilateral basal ganglia. Normal thalami. There is no extra-axial fluid accumulation. Normal flow voids within the major intracranial circulation suggesting patency by spin echo criteria. Normal sella turcica, pituitary gland, infundibular stalk, optic chiasm and hypothalamus. Normal tectal plate and pineal gland. Normal midbrain, derek and medulla. Normal cerebellum. Normal basal cisterns. Normal bilateral temporal bones. Normal bilateral internal auditory canals. No demonstrated orbital abnormality, within the constraints of a routine brain study. Opacification of the left frontal sinus consistent with sinusitis or polyp. Normal calvarium and skull base. Normal visualized soft tissue structures. Normal visualized upper cervical spine. MRI/Brain without Contrast IMPRESSION: Normal unenhanced MRI of the brain. Electronically Signed: Faizan Hodges MD at 12:57 EDT Tel , Service support , CC: NONA Hagen; Dr. Abdoulaye Nova DO Insole Lip Turner: Signed Belem Hagen Start: 06-13-2020 End: 06-23-2020 Emergency Department Summary Comments: See Note; NOTES: [facility] [address] [place] [address] Emergency Department Summary 06/13/20 MR#: [id number] Acct: [id number] Name: ALISTAIR ARECHIGA Rep #: [id number] : 1945 74 From: Abdoulaye Nova DO PCP: NONA Perea Status:DEP ER History of Present Illness Informant: Patient Narrative: 74-year-old female with past medical history of hyperlipidemia presents with concern for dizziness. States that upon awakening this morning and getting out of bed she became dizzy. Describes it as the room was spinning. States that when she lays down it does improve. Does admit to nausea. Patient states that she broke out in a cold sweat. Denies any chest pain, shortness of breath, vomiting, abdominal pain, headache, vision change, neck pain, fever, chills, cough. States that she does not have a history of this before in the past. Denies any drugs or alcohol. <Abdoulaye Nova - Last Filed: 06/13/20 11:13> <Ruslan Cabello - Last Filed: 06/13/20 17:14> Chief Complaint: Dizziness Past Medical History Prior records reviewed: Yes Past Medical History: - - HLD Surgical History: - - tubal ligation Lives: Spouse/ Significant Other Smoking Status: Never smoker Alcohol: None Drugs: None - Family History Maternal Family History: Family History (Last Reviewed 04/20/20 @ 13:17 by Lin Hopkins) Father Heart disease CVA (cerebral vascular accident) Family History: Reports: No pertinent history Paternal Family History: Family History (Last Reviewed 04/20/20 @ 13:17 by Lin Hopkins) Father Heart disease CVA (cerebral vascular accident) Family History: Reports: No pertinent history <Abdoulaye Nova - Last Filed: 06/13/20 11:13> - Family History Maternal Family History: Family History (Last Reviewed 04/20/20 @ 13:17 by Lin Hopkins) Father Heart disease CVA (cerebral vascular accident) Paternal Family History: Family History (Last Reviewed 04/20/20 @ 13:17 by Lin Hopkins) Father Heart disease CVA (cerebral vascular accident) <Ruslan Cabello - Last Filed: 06/13/20 17:14> - Allergies and Home Meds Allergies/Adverse Reactions: Allergies sulfamethoxazole [From Bactrim] Allergy (Mild, Verified 06/13/20 07:45) Other trimethoprim [From Bactrim] Allergy (Mild, Verified 06/13/20 07:45) Other potassium clavulanate [From Augmentin] Allergy (Verified 06/13/20 07:45) Rash amoxicillin trihydrate [From Augmentin] Adverse Reaction (Verified 06/13/20 07:45) Rash PT STATES IT WAS A MILD ITCHINESS IN THE 1970'S NO BREATHING PROBLEMS Primary Care Physician: Belem Hagen NP-C [Primary Care Provider] - 2 Days Review of Systems General: Denies: Chills, Fever, Sweats Eyes: Denies: Visual changes - bilaterally, Diplopia ENT: Denies: Rhinorrhea, Sore throat Cardiovascular: Denies: Chest pain, Palpitations Respiratory: Denies: Dyspnea, Cough, Dyspnea on exertion Gastrointestinal: Denies: Abdominal pain, Nausea, Vomiting, Diarrhea, Melena, Hematochezia Genitourinary: Denies: Dysuria, Hematuria, Frequency Musculoskeletal: Denies: Back pain, Extremity Pain Skin: Denies: Rash, Wounds Neurological: Reports: - - dizziness. Denies: Headache, Weakness, Numbness <Abdoulaye Nova - Last Filed: 06/13/20 11:13> Physical Exam Vital Signs/Narrative: Vital Signs Temp Pulse Resp BP Pulse Ox 06/13/20 07:42 97.7 F L 67 16 161/88 H 100 Inital Vital Signs reviewed: Yes General: Well nourished, Well developed, No Acute Distress Head: Normocephalic, Atraumatic Eyes: Perrl, EOMI ENT: Moist mucous membranes, No rhinorrhea Neck: Supple, Nontender Cardiovascular: Regular rate, Regular rhythm, No murmurs Respiratory: No distress, CTA bilaterally, Chest nontender Abdomen: Soft, Nontender, Nondistended, Normal bowel sounds Back: Nontender, Normal Inspection Extremities: Nontender, No edema Skin: Normal color, No rash Neurological: Alert, Oriented x3, Cranial nerves II-XII grossly intact, Normal Strength, Normal Sensation Psychological: Normal affect, Normal Mood <Abdoulaye Nova - Last Filed: 06/13/20 11:13> Vital Signs/Narrative: Vital Signs Pulse Resp BP Pulse Ox 06/13/20 13:19 62 18 147/71 H 100 06/13/20 10:32 64 18 159/71 H 96 06/13/20 10:18 64 18 159/71 H 100 <Ruslan Cabello - Last Filed: 06/13/20 17:14> Diagnostic/Tx/Re-eval - Rhythm Strip Rhythm Strip: Sinus Rhythm Rate: 61 Ectopy: None - EKG Initial EKG Interpretation: Sinus Rhythm - Normal sinus rhythm at 61 bpm. ND interval of 162 ms. QTC of 457 ms. No evidence of ST elevation or depression at this time. - Medical Decision Making Patient appears well and nontoxic. Vital signs within normal limits. CT brain and CTA both negative. Patient does have almost resolution of her symptoms. Lab work within normal limits including a nonischemic EKG and negative troponin. Patient was given fluid bolus as well as Zofran. After discussion with the patient she will receive an MRI in the emergency department to rule out posterior circulation stroke. Following this she will be discharged home and follow-up with primary care physician. Impression: 1. Vertigo 2. Nausea <Abdoulaye Nova - Last Filed: 06/13/20 11:13> - Medical Decision Making Patient signed out to me to follow-up on MRI results. This did not show any evidence of acute CVA. Patient feeling much better throughout ED stay. She was able to ambulate without any issues here in the emergency department. She does feel comfortable going home at this time. Will discharge home in stable condition. She needs follow-up with her PCP. If she develops any repeat symptoms she is to return to the emerge department immediately. She understands and is agreeable with this plan. <Ruslan Cabello - Last Filed: 06/13/20 17:14> ED Disposition <Abdoulaye Nova - Last Filed: 06/13/20 11:13> <Ruslan Cabello - Last Filed: 06/13/20 17:14> - Plan for ED Patient: Disposition: Home or Assisted Living Instructions: ED Dizziness UKO Referrals: Belem Hagen NP-C [Primary Care Provider] - 2 Days What to do if you have Problems For any increased pain, shortness of breath, bleeding, nausea or vomiting, chest pain, or any unexpected problems, contact your Primary Care Provider. Call [facility] ([phone]) or report to the closest Emergency Room. Call 911 if necessary. 06/23/20 1438 <Electronically signed by Abdoulaye Nova DO> Date Abdoulaye Nova DO 06/13/20 1714<Electronically signed by Ruslan Cabello DO> Cosigner Signature (If Indicated): Date Ruslan Cabello DO CC: NONA Hagen Start: 06-13-2020 End: 06-13-2020 CTA Head AND Neck W/ Contrast Comments: See Note; NOTES: [facility] [address] [place] [address] CTA Head AND Neck W/ Contrast MR#: [id number] Acct: [id number] Name: ALISTAIR ARECHIGA Rep #: [id number] : 1945 F 74 From: Stew lamb MD PCP: NONA Perea Status: REG ER Study: CTA Head AND Neck W/ Contrast Date of Exam: Exam# [id number] Ordering Dr: Abdoulaye Nova DO STUDY: CTA HEAD AND NECK WITH CONTRAST REASON FOR EXAM: Female, 74 years old. DIZZINESS THIS AM, NON CONTRAST BRAIN ALSO PREFORMED RADIATION DOSAGE (If Supplied By Facility): CTDIvol = ( 26.6 ) mGy, DLP = ( 1492.61 ) mGycm TECHNIQUE: CT angiography was performed with a multi-detector CT scanner. Data acquisition was obtained from the skull base through the vertex following intravenous administration of [id number] 100ML. MIP images were reconstructed from the axial data set. Post-processing of the angiographic images was performed, with multiplanar reformation and 3D reconstruction. Individualized dose optimization techniques were used for this CT. COMPARISON: No relevant priors. FINDINGS: Normal bilateral petrous carotid arteries. Normal right cavernous carotid artery with a normal supraclinoid bifurcation. Normal left cavernous carotid artery with a normal supraclinoid bifurcation. Normal right A1 segments of the anterior cerebral artery. Normal left A1 segments of the anterior cerebral artery. Normal intact anterior communicating artery (ACOM). Normal bilateral A2 segments of the anterior cerebral arteries. Normal right M1 and M2 segments of the middle cerebral arteries, with a normal M1 bifurcation. Normal left M1 and M2 segments of the middle cerebral arteries, with a normal M1 bifurcation. Normal right posterior communicating artery (PCOM). Normal left posterior communicating artery (PCOM). Normal bilateral vertebral arteries. Normal basilar artery with a normal basilar bifurcation. The visualized bilateral superior cerebellar (SCA) arteries are normal. Normal bilateral P1, P2 and visualized P3 segments of the posterior cerebral arteries. There is no demonstrated aneurysm of the [place] of [place]. There is a 1.1 cm x 1 cm hypodensity in the inferior aspect of the right frontal lobe. No surrounding mass effect is seen. AORTIC ARCH: Normal visualized aortic arch. Normal origins of the brachiocephalic, left common carotid, and left subclavian arteries. RIGHT CAROTID ARTERIES: Normal right common carotid artery (CCA). Normal right common carotid bulb. Normal origin of the right internal carotid (ICA) artery without a hemodynamically significant stenosis. Normal visualized cervical portion of the right internal carotid artery. Normal origin of the right external carotid artery (ECA). LEFT CAROTID ARTERIES: Normal left common carotid artery (CCA). Normal left common carotid bulb. Normal origin of the left internal carotid (ICA) artery without a hemodynamically significant stenosis. Normal visualized cervical portion of the left internal carotid artery. Normal origin of the left external carotid artery (ECA). VERTEBRAL ARTERIES: Normal bilateral vertebral arteries. CT/CTA Head AND Neck W/ Contrast IMPRESSION: Normal CTA Head and neck with contrast. 1.1 cm x 1 some hypodensity in the inferior aspect of the right frontal lobe. This may represent an area of old ischemic change. Electronically Signed: Stew Hill, at 9:29 EDT , Service support , CC: NONA Hagen; Dr. Abdoulaye Nova DO Insole Lip Turner: Signed Belem Hagen Start: 06-13-2020 End: 06-15-2020 12 Lead EKG Comments: See Note; NOTES: [facility] [address] [place] [id number] 12 Lead EKG 06/13/20 0802 MR#: [id number] Acct: [id number] Name: ALISTAIR ARECHIGA Rep #: [id number] : 1945 74 From: Luis Carlos Zuluaga MD Attending Dr: Status: DEP ER Ordering Dr: Abdoulaye Nova DO Date: 06/13/20 Location: ED Sex: F C Admitted: Test Reason : DIZZINESS Blood Pressure : / mmHG Vent. Rate : 061 BPM Atrial Rate : 061 BPM P-R Int : 162 ms QRS Dur : 090 ms QT Int : 454 ms P-R-T Axes : 039 -09 046 degrees QTc Int : 457 ms Normal sinus rhythm Normal ECG Confirmed by ZAN GARZA, LUIS CARLOS ([id number]), movie editor DESHAWN MICHAELS ([id number]) on 06/15/2020 9:38:17 AM Referred By: CL Confirmed By:LUIS CARLOS ZULUAGA MD 06/15/20 0938 Date Luis Carlos Zuluaga MD CC: HARNESS INSTALLER-C Belem Hagen; Dr. Abdoulaye Nova DO Signed Belem Hagen Start: 06-13-2020 End: 06-13-2020 Chest 1 View (Portable) Comments: See Note; NOTES: [facility] [address] [place] [address] Chest 1 View (Portable) MR#: [id number] Acct: [id number] Name: ALISTAIR ARECHIGA Rep #: [id number] : 1945 F 74 From: Stew lamb MD PCP: NONA Perea Status: REG ER Study: Chest 1 View (Portable) Date of Exam: 06/13/20 Exam# [id number] Ordering Dr: Abdoulaye Nova DO STUDY: X-RAY CHEST REASON FOR EXAM: Female, 74 years old. Dizziness TECHNIQUE: Single AP portable view of the chest. COMPARISON: Comparison is made with prior study dated April 23, 2016. FINDINGS: EKG electrodes are seen. Mild elevation of the right hemidiaphragm. Mild increased markings at the left lung base suggestive of possible atelectasis. Normal size heart. Normal mediastinum and es. Normal visualized pulmonary arteries. There is atherosclerotic tortuosity of the aortic arch and descending thoracic aorta. There are diffuse degenerative changes of the visualized thoracic spine. Normal visualized ribs, clavicles, and shoulders. There is no demonstrated abnormality of the visualized soft tissue structures of the upper abdomen. RAD/Chest 1 View (Portable) IMPRESSION: Elevation of the right hemidiaphragm. Mild increased markings at the left lung base suggestive of left basilar atelectasis. Electronically Signed: Stew Liz, at 9:33 EDT , Service support , CC: NONA Hagen; Dr. Abdoulaye Nova DO Insole Lip Turner: Signed Belem Hagen Start: 04-20-2020 End: 04-20-2020 Quilting Machine Helper Office Visit Report Comments: See Note; NOTES: [facility] [address] [place] [address] OFFICE VISIT Date of Service: 04/20/20 MR#: [id number] Acct: [id number] Name: ALISTAIR ARECHIGA Rep #: [id number] : 1945 Provider: ALCIDES reyes Age/Sex: 74/F Location: 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 Is patient in pain?: No Allergies sulfamethoxazole [From Bactrim] Allergy (Mild, Verified 04/20/20 13:17) Other trimethoprim [From Bactrim] Allergy (Mild, Verified 04/20/20 13:17) Other potassium clavulanate [From Augmentin] Allergy (Verified 04/20/20 13:17) Rash amoxicillin trihydrate [From Augmentin] Adverse Reaction (Verified 04/20/20 13:17) Rash Medications Cranberry 1 tab PO DAILY 04/23/16 [History Confirmed 04/20/20] estradiol 1 g VAGINAL 2XW 12/17/17 [History Confirmed 04/20/20] oxyquinoline 0.025 %-sodium lauryl sulfate 0.01 % vaginal gel ea VAGINAL 01/19/18 [History Confirmed 01/10/20] glucosamine HCl 500 mg tablet 500 mg PO DAILY tab 01/05/19 [History Confirmed 04/20/20] oxyquinoline 0.025 %-sodium lauryl sulfate 0.01 % vaginal gel See Rx Instructions VAGINAL .COMPLEX #113.4 g 04/20/20 [Rx Confirmed 04/20/20] Is last menstrual period known: No Post menopausal: Yes Patient : No : No PFSH PFSH Medical History Hyperlipidemia (Acute) Surgical History H/O tubal ligation (Acute) Family History Father Heart disease CVA (cerebral vascular accident) Social History (Updated 04/20/20 @ 13:42 by Rayna Bazzi NP-C) Smoking Status: Never smoker alcohol intake: current details: social substance use type: does not use caffeine: Yes frequency: 1-2 times per week seatbelt use: always do you feel safe at home: Yes 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 Pregancy History 3 Elective abortions Hx Para 3 Spontaneous abortions Hx # Term Pregnancies Ectopic pregnancies Hx # Pregnancies Multiple births # of living children Past Pregnancies Del. Date Name GA/Weeks Outcome Route Bth Weight Gen Labor Lgth Anesthesia Del [facility] Provider FO Unknown 1967 [place] Unknown 1969 [facility] Unknown 1970 [facility] HPI 3 MO FU: Details: ALISTAIR ARECHIGA is a 74 year old who presents for 3 month pessary check. Denies concerns ROS Const Constitutional: Reports as per HPI : Reports as per HPI Exam Const General: cooperative, no acute distress Orientation: oriented x3 External Female Exam: normal external appearance Other: Donut pessary removed. No excoriations or bleeding noted. Persistent but stable prolapse. Pessary cleaned and reinserted with trimosan gel. Patient tolerated well Assessment Plan Problems 1. Encounter for pessary maintenance Z46.89 2. Cystocele and rectocele with incomplete uterovaginal prolapse N81.2 Plan Refill trimosan gel Reviewed S S infection RTO 3 months Medications New: oxyquinoline-sod.lauryl sulfat 0.025-0.01 % (Trimo-Colon Jelly) 1 application VAGINAL once a week; 113.4 grams 3RF Coding Level of Care Code Off vis,est,level 3 Diagnoses Encounter for pessary maintenance Z46.89 Cystocele and rectocele with incomplete uterovaginal prolapse N81.2 04/20/20 1342 <Electronically signed by Rayna CASTELLANO> Date Rayna CASTELLANO Cosigner Signature: Date (if applicable) CC: Belem Roemaligurjit Start: 01-10-2020 End: 01-10-2020 Quilting Machine Helper Office Visit Report Comments: See Note; NOTES: [facility] [address] [place] [address]. 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 Is patient in pain?: No Allergies sulfamethoxazole [From Bactrim] Allergy (Mild, Verified 01/10/20 09:30) Other trimethoprim [From Bactrim] Allergy (Mild, Verified 01/10/20 09:30) Other potassium clavulanate [From Augmentin] Allergy (Verified 01/10/20 09:30) Rash amoxicillin trihydrate [From Augmentin] Adverse Reaction (Verified 01/10/20 09:30) Rash Medications Cranberry 1 tab PO DAILY 04/23/16 [History Confirmed 01/10/20] estradiol 1 g VAGINAL 2XW 12/17/17 [History Confirmed 01/10/20] oxyquinoline 0.025 %-sodium lauryl sulfate 0.01 % vaginal gel ea VAGINAL 01/19/18 [History Confirmed 01/10/20] glucosamine HCl 500 mg tablet 500 mg PO DAILY tab 01/05/19 [History Confirmed 01/10/20] Is last menstrual period known: No Post menopausal: Yes Patient : No : [facility] Medical History Hyperlipidemia (Acute) Surgical History H/O tubal ligation (Acute) Family History Father Heart disease CVA (cerebral vascular accident) Social History (Updated 01/10/20 @ 09:51 by NONA May) Smoking Status: Never smoker alcohol intake: current details: social substance use type: does not use caffeine: Yes frequency: 1-2 times per week seatbelt use: always do you feel safe at home: Yes 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 [employer] 3 MO FU: Details: ALISTAIR ARECHIGA is a 74 year old who presents for pessary check. Denies concerns Pregancy History 3 Elective abortions Hx Para 3 Spontaneous abortions Past Pregnancies Del. DatName GA/WeeksOutcome [facility] LgAnesthesDel LocaProviderFOB e ht en th ia tn ROS Const Constitutional: Reports system reviewed and no additional complaints, except as docu Eyes Eyes: Reports system reviewed and no additional complaints, except as docu GI GI: Denies abdominal pain or change in bowel habits : Reports as per HPI Exam Const General: cooperative, no acute distress Nutritional Appearance: well nourished Orientation: oriented x3 Other: Donut pessary removed. Normal discharge, no excoriations. Persistent but stable prolapse. Pessary cleaned and replace with trimosan gel. Patient tolerated well Assessment AND Plan Problems 1. Pessary maintenance Z46.89 2. Cystocele and rectocele with incomplete uterovaginal prolapse N81.2 Plan Reviewed S AND S infection Continue estrogen cream as directed RTO 3 months Orders Orders: Coding Level of Care Code Off vis,est,level 3 Diagnoses Pessary maintenance Z46.89 Cystocele and rectocele with incomplete uterovaginal prolapse N81.2 01/10/20 0951 <Electronically signed by Rayna CASTELLANO> Date Rayna CASTELLANO Cosigner Signature: Date (if applicable) CC: Belem Hagen Start: 07-06-2019 End: 07-06-2019 Quilting Machine Helper Office Visit Report Comments: See Note; NOTES: [facility] 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 Assembly Required: No Is patient in pain?: No Allergies sulfamethoxazole [From Bactrim] Allergy (Mild, Verified 07/06/19 09:16) Other trimethoprim [From Bactrim] Allergy (Mild, Verified 07/06/19 09:16) Other potassium clavulanate [From Augmentin] Allergy (Verified 07/06/19 09:16) Rash amoxicillin trihydrate [From Augmentin] Adverse Reaction (Verified 07/06/19 09:16) Rash Medications Cranberry 1 tab PO DAILY 04/23/16 [History Confirmed 07/06/19] estradiol 0.01% (0.1 mg/gram) vaginal cream 1 g VAGINAL 2XW 12/17/17 [History Confirmed 07/06/19] oxyquinoline 0.025 %-sodium lauryl sulfate 0.01 % vaginal gel ea VAGINAL 01/19/18 [History Confirmed 07/06/19] glucosamine HCl 500 mg tablet 500 mg PO DAILY tab 01/05/19 [History Confirmed 07/06/19] oxyquinoline 0.025 %-sodium lauryl sulfate 0.01 % vaginal gel See Rx Instructions VAGINAL .COMPLEX #113.4 g 04/06/19 [Rx Confirmed 07/06/19] Is last menstrual period known: No Post menopausal: Yes Patient : No : No PFS Medical History Hyperlipidemia (Acute) Surgical History H/O tubal ligation (Acute) Family History Father Heart disease CVA (cerebral vascular accident) Social History (Updated 07/06/19 @ 09:49 by NONA May) Smoking Status: Never smoker alcohol intake: current details: social substance use type: does not use caffeine: Yes frequency: 1-2 times per week seatbelt use: always do you feel safe at home: Yes 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 [employer] 3 mo fu: Details: ALISTAIR ARECHIGA is a 73 year old who presents for pessary check. Denies concerns. Pregancy History 3 Elective abortions Hx Para 3 Spontaneous abortions Past Pregnancies Del. DatName GA/WeeksOutcome Route [facility] Prosper Hurtado LgAnestheDiegoel LocaProviderFOB e ht en ia tn ROS Const Constitutional: Reports system reviewed and no additional complaints, except as docu Eyes Eyes: Reports system reviewed and no additional complaints, except as docu GI GI: Denies abdominal pain or change in bowel habits : Reports as per HPI Exam Const General: cooperative, no acute distress Nutritional Appearance: well nourished External Female Exam: normal external appearance, normal appearance of the urethra Urethra: normal appearance of the urethra Other: Donut pessary removed. NO excoriations or bleeding. Stable prolapse. Normal discharge. Pessary cleaned and easily replaced with trimosan gel. Patient tolerated well. Assessment AND Plan Problems 1. Pessary maintenance Z46.89 2. 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 [place] [address] OFFICE VISIT Date of Service: 04/06/19 MR#: [id number] Acct: [id number] Name: ALISTAIR ARECHIGA Rep #: [id number] : 1945 Provider: ALCIDES Bazzi Age/Sex: 73/F Location: 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 Assembly Required: No Is patient in pain?: No Allergies sulfamethoxazole [From Bactrim] Allergy (Mild, Verified 04/06/19 08:51) Other trimethoprim [From Bactrim] Allergy (Mild, Verified 04/06/19 08:51) Other potassium clavulanate [From Augmentin] Allergy (Verified 04/06/19 08:51) Rash amoxicillin trihydrate [From Augmentin] Adverse Reaction (Verified 04/06/19 08:51) Rash Medications Cranberry 1 tab PO DAILY 04/23/16 [History Confirmed 04/06/19] estradiol 0.01% (0.1 mg/gram) vaginal cream 1 g VAGINAL 2XW 12/17/17 [History Confirmed 04/06/19] oxyquinoline 0.025 %-sodium lauryl sulfate 0.01 % vaginal gel ea VAGINAL 01/19/18 [History Confirmed 04/06/19] glucosamine HCl 500 mg tablet 500 mg PO DAILY tab 01/05/19 [History Confirmed 04/06/19] oxyquinoline 0.025 %-sodium lauryl sulfate 0.01 % vaginal gel See Rx Instructions VAGINAL .COMPLEX #113.4 g 04/06/19 [Rx Confirmed 04/06/19] Is last menstrual period known: No Post menopausal: Yes Patient : No : No PFSH Medical History Hyperlipidemia (Acute) Surgical History H/O tubal ligation (Acute) Family History Father Heart disease CVA (cerebral vascular accident) Social History Smoking Status: Never smoker alcohol intake: current details: social substance use type: does not use caffeine: Yes frequency: 1-2 times per week seatbelt use: always do you feel safe at home: Yes 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 [employer] 3 month follow up : Details: ALISTAIR ARECHIGA is a 73 year old who presents for pessary check. Denies concerns. 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 Pregancy History 3 Elective abortions Hx Para 3 Spontaneous abortions Past Pregnancies Del. DateName GA/Weeks Outcome Route Bth WeighInfant GeLabor LgtAnesthesiDel LocatProvider FOB t n h a n ROS Const Constitutional: Reports system reviewed and no additional complaints, except as docu Eyes Eyes: Reports system reviewed and no additional complaints, except as docu GI GI: Denies abdominal pain or change in bowel habits : Reports as per HPI Exam Const General: cooperative, no acute distress Nutritional Appearance: well nourished Orientation: oriented x3 External Female Exam: normal external appearance Other: Donut pessary removed. NO excoriations, lesions noted. Normal discharge. Prolapse persists. Pessary cleaned and replaced with trimosan gel. Patient tolerated well Assessment AND Plan Problems 1. Pessary maintenance Z46.89 2. 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 [place] [address] OFFICE VISIT Date of Service: 01/05/19 MR#: [id number] Acct: [id number] Name: SOFIAALISTAIR E Rep #: [id number] : 1945 Provider: ALCIDES Bazzi Age/Sex: 73/F Location: [facility] Status: Signed Intake Vital Signs01/05/19 Height 5 ft 2 in 01/05/19 Weight: 178 lb 2 oz 01/05/19 Body Mass Index (BMI) 32.5 01/05/19 Blood Pressure 144/90 H Intake Visit Reasons: 3 MONTH FOLLOW UP Supervisor Body Assembly Required: No Is patient in pain?: No Allergies sulfamethoxazole [From Bactrim] Allergy (Mild, Verified 01/05/19 08:49) Other trimethoprim [From Bactrim] Allergy (Mild, Verified 01/05/19 08:49) Other potassium clavulanate [From Augmentin] Allergy (Verified 01/05/19 08:49) Rash amoxicillin trihydrate [From Augmentin] Adverse Reaction (Verified 01/05/19 08:49) Rash Medications Cranberry 1 tab PO DAILY 04/23/16 [History Confirmed 01/05/19] estradiol 0.01% (0.1 mg/gram) vaginal cream 1 g VAGINAL 2XW 12/17/17 [History Confirmed 01/05/19] oxyquinoline 0.025 %-sodium lauryl sulfate 0.01 % vaginal gel ea VAGINAL 01/19/18 [History Confirmed 01/05/19] glucosamine HCl 500 mg tablet 500 mg PO DAILY tab 01/05/19 [History Confirmed 01/05/19] Is last menstrual period known: No Post menopausal: Yes Patient : No : No PFSH Medical History Hyperlipidemia (Acute) Surgical History H/O tubal ligation (Acute) Family History Father Heart disease CVA (cerebral vascular accident) Social History Smoking Status: Never smoker alcohol intake: current details: social substance use type: does not use caffeine: Yes frequency: 1-2 times per week seatbelt use: always do you feel safe at home: Yes 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 [employer] 3 MONTH FOLLOW UP : Details: ALISTAIR ARECHIGA is a 73 year old who presents for pessary check. Denies concerns. Declines mammograms Pregancy History 3 Elective abortions Hx Para 3 Spontaneous abortions Past Pregnancies Del. DateName GA/Weeks Outcome Route Bth WeighInfant GeLabor LgtAnesthesiDel LocatProvider FOB t n h a n ROS Const Constitutional: Reports system reviewed and no additional complaints, except as docu GI GI: Denies abdominal pain or change in bowel habits : Reports as per HPI Exam Const General: cooperative, no acute distress Nutritional Appearance: well nourished Orientation: oriented x3 External Female Exam: normal external appearance, normal appearance of the urethra Urethra: normal appearance of the urethra Speculum Exam - Vagina: atrophic vaginal mucosa Bimanual Exam- Vagina AND Uterus: normal bimanual exam, uterine size normal, uterus non-tender Bimanual Exam- Adnexa, other: normal adnexae, rectocele, cystocele Pelvic Support: cystocele, rectocele Other: Donut pessary removied. No vaginal bleeding, excoriations noted. Pessary cleaned and easily replace with trimosan gel. Patient tolerated well. Assessment AND Plan Problems 1. Pessary maintenance Z46.89 2. Cystocele and rectocele with incomplete uterovaginal prolapse N81.2 Plan Reviewed S AND S infections RTO 3 months, prn with problems. 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 Assembly Required: No Is patient in pain?: No Allergies sulfamethoxazole [From Bactrim] Allergy (Mild, Verified 10/05/18 08:52) Other trimethoprim [From Bactrim] Allergy (Mild, Verified 10/05/18 08:52) Other potassium clavulanate [From Augmentin] Allergy (Verified 10/05/18 08:52) Rash amoxicillin trihydrate [From Augmentin] Adverse Reaction (Verified 10/05/18 08:52) Rash Medications Cranberry 1 tab PO DAILY 04/23/16 [History Confirmed 10/05/18] estradiol 0.01% (0.1 mg/gram) vaginal cream 1 g VAGINAL 2XW 12/17/17 [History Confirmed 10/05/18] oxyquinoline 0.025 %-sodium lauryl sulfate 0.01 % vaginal gel ea VAGINAL 01/19/18 [History Confirmed 10/05/18] Post menopausal: No Patient : No : No PFSH Medical History Hyperlipidemia (Acute) Surgical History H/O tubal ligation (Acute) Family History Father Heart disease CVA (cerebral vascular accident) Social History Smoking Status: Never smoker alcohol intake: current details: social substance use type: does not use caffeine: Yes frequency: 1-2 times per week seatbelt use: always do you feel safe at home: Yes 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 [employer] 3 month FU: Details: ALISTAIR ARECHIGA is a 72 year old who presents for pessary check. Headed to [place] next week. Pregancy History 3 Elective abortions Hx Para 3 Spontaneous abortions Past Pregnancies Del. DateName GA/Weeks Outcome Route Bth WeighInfant GeLabor LgtAnesthesiDel LocatProvider FOB t n h a n Exam Other: Donut pessary removed. No excoriations or lesions noted. Some urine loss with removal of pessary. Pessary cleaned and replaced with trimosan gel. Patient tolerated well Assessment AND Plan Problems 1. Pessary maintenance Z46.89 2. Cystocele and rectocele with incomplete uterovaginal prolapse N81.2 Plan Reviewed S AND S infection Continue estrogen cream twice a week and trimosan once a week Patient declines mammograms. RTO 3 months Coding Level of Care Code Off vis,est,level 3 Diagnoses Pessary maintenance Z46.89 Cystocele and rectocele with incomplete uterovaginal prolapse N81.2 10/05/18 0920 <Electronically signed by Rayna CASTELLANO> Date Rayna CASTELLANO Cosigner Signature: Date (if applicable) CC: Belem Hagen Start: 08-06-2018 End: 08-10-2018 Dexa Bone Density Study Comments: See Note; NOTES: [facility] [address] [place] [id number] Dexa Bone Density Study MR#: [id number] Acct: [id number] Name: ALISTAIR ARECHIGA Rep #: [id number] : 1945 F 72 From: Stew Hill MD PCP: Belem Hagen NP Status: REG CLI Study: Dexa Bone Density Study Date of Exam: 08/06/18 Exam# [id number] Ordering Dr: Belem Hagen STUDY: DUAL ENERGY X-RAY ABSORPTIOMETRY / DXA REASON FOR EXAM: Female, 72 years old. The patient is postmenopausal. TECHNIQUE: Bone Mineral Density (BMD) measurements of lumbar spine and bilateral hips were obtained. COMPARISON: None. FINDINGS: Lumbar Spine (L1-L4): g/cm2 (0.933) / T-score (-2.0) / Z-score (-0.3) Findings are suggestive of osteopenia with a moderate fracture risk. Left Femur Total: g/cm2 (0.981) / T-score (-0.2) / Z-score (1.3) Left Femoral Neck: g/cm2 (0.835) / T-score (-1.5) / Z-score (0.3) Right Femur Total: g/cm2 (0.979) / T-score (-0.2) / Z-score (1.3) Right Femoral Neck: g/cm2 (0.815) / T-score (-1.6) / Z-score (0.2) BD/Dexa Bone Density Study IMPRESSION: The patient is considered osteopenic as outlined below according to World Jorje Organization (WHO) criteria with a moderate fracture risk. Reference Information: The T-score is the number of standard deviations above or below the standard which is normal for young adults at their peak bone mineral density. The World Health Organization (WHO) interprets the T-scores as follows: Above -1 Normal bone density Between -1 and -2.5 Osteopenia Equal to / or below -2.5 Osteoporosis As a practical clinical guideline, osteopenia may be graded as follows: Mild -1 through -1.5 Moderate -1.6 through -2.0 Severe -2.1 through -2.4 The Z-score is the number of standard deviations above or below age-matched controls. A Z-score of less than -1.5 would be considered abnormal. References: 1. NIH Osteoporosis and Related Bone Diseases http://www.osteo.org 2. International Society for Clinical Densitometry http://www.iscd.org 3. 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 [address] [place], [place] [address] OFFICE VISIT Date of Service: 04/13/18 MR#: [id number] Acct: [id number] Name: ALISTAIR ARECHIGA Rep #: [id number] : 1945 Provider: ALCIDES Bazzi Age/Sex: 72/F Location: [facility] Status: Signed Intake Vital Signs04/13/18 Height 5 ft 1 in 04/13/18 Weight: 173 lb 2 oz 04/13/18 Body Mass Index (BMI) 32.7 04/13/18 Blood Pressure 130/80 Intake Visit Reasons: pessary check Chief Complaint: Pessary Check Supervisor Body Assembly Required: No Is patient in pain?: No Allergies sulfamethoxazole [From Bactrim] Allergy (Mild, Verified 04/13/18 10:04) Other trimethoprim [From Bactrim] Allergy (Mild, Verified 04/13/18 10:04) Other potassium clavulanate [From Augmentin] Allergy (Verified 04/13/18 10:04) Rash amoxicillin trihydrate [From Augmentin] Adverse Reaction (Verified 04/13/18 10:04) Rash Medications Cranberry 1 tab PO DAILY 04/23/16 [History Confirmed 04/13/18] ascorbic acid (vitamin C) 500 mg capsule mg PO 12/17/17 [History Confirmed 04/13/18] estradiol 0.01% (0.1 mg/gram) vaginal cream 1 g VAGINAL 2XW 12/17/17 [History Confirmed 04/13/18] methenamine hippurate 1 gram tablet 1 g PO BID 12/17/17 [History Confirmed 04/13/18] oxyquinoline 0.025 %-sodium lauryl sulfate 0.01 % vaginal gel ea VAGINAL 01/19/18 [History Confirmed 04/13/18] Is last menstrual period known: No Post menopausal: Yes Patient : No : No PFSH Medical History Hyperlipidemia (Acute) Surgical History H/O tubal ligation (Acute) Family History Father Heart disease CVA (cerebral vascular accident) Social History Smoking Status: Never smoker alcohol intake: current details: social substance use type: does not use caffeine: Yes frequency: 1-2 times per week seatbelt use: always do you feel safe at home: Yes 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 [employer] pessary check: Details: ALISTAIR ARECHIGA is a 72 year old who presents for pessary check. She denies any concerns. Pregancy History 3 Elective abortions Hx Para 3 Spontaneous abortions Past Pregnancies Del. DateName GA/Weeks Outcome Route Bth WeighInfant GeLabor LgtAnesthesiDel LocatProvider FOB t n h a n Exam Other: #3 donut pessary removed. No excoriations or bleeding noted. Prolapse stable. Pessary cleaned and easily replaced with trimosan gel. Patient tolerated well. Assessment AND Plan Problems 1. Encounter for pessary maintenance Z46. 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 [place] [address] OFFICE VISIT Date of Service: 01/19/18 MR#: [id number] Acct: [id number] Name: ALISTAIR ARECHIGA Rep #: [id number] : 1945 Provider: ALCIDES Bazzi Age/Sex: 72/F Location: [facility] Status: Signed Intake Vital Signs01/19/18 Height 5 ft 1 in 01/19/18 Weight: 169 lb 4 oz 01/19/18 Body Mass Index (BMI) 31.9 01/19/18 Blood Pressure 138/73 Intake Visit Reasons: follow up Chief Complaint: Pessary Check Supervisor Body Assembly Required: No Is patient in pain?: No Allergies sulfamethoxazole [From Bactrim] Allergy (Mild, Verified 01/19/18 09:56) Other trimethoprim [From Bactrim] Allergy (Mild, Verified 01/19/18 09:56) Other potassium clavulanate [From Augmentin] Allergy (Verified 01/19/18 09:56) Rash amoxicillin trihydrate [From Augmentin] Adverse Reaction (Verified 01/19/18 09:56) Rash Medications Cranberry 1 tab PO DAILY 04/23/16 [History Confirmed 01/19/18] ascorbic acid (vitamin C) 500 mg capsule mg PO 12/17/17 [History Confirmed 01/19/18] estradiol 0.01% (0.1 mg/gram) vaginal cream 1 g VAGINAL 2XW 12/17/17 [History Confirmed 01/19/18] methenamine hippurate 1 gram tablet 1 g PO BID 12/17/17 [History Confirmed 01/19/18] oxyquinoline 0.025 %-sodium lauryl sulfate 0.01 % vaginal gel ea VAGINAL 01/19/18 [History Confirmed 01/19/18] Is last menstrual period known: No Post menopausal: Yes Patient : No : No PFSH Medical History Hyperlipidemia (Acute) Surgical History H/O tubal ligation (Acute) Family History Father Heart disease CVA (cerebral vascular accident) Social History Smoking Status: Never smoker alcohol intake: current details: social substance use type: does not use caffeine: Yes frequency: 1-2 times per week seatbelt use: always do you feel safe at home: Yes 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 HPI follow up: Details: ALISTAIR ARECHIGA is a 72 year old who presents for pessary check. Denies concerns. Very happy with use of pessary. Pregancy History 3 Elective abortions Hx Para 3 Spontaneous abortions Past Pregnancies Del. DateName GA/Weeks Outcome Route Bth WeighInfant GeLabor LgtAnesthesiDel LocatProvider FOB t n h a n Exam Const Other: Normal external genitalia #3donut pessary removed, no excoriations or bleeding noted. Pessary cleaned and replaced with trimosan gel. Patient tolerated well Assessment AND Plan Problems 1. 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 [place] [address] OFFICE VISIT Date of Service: 12/17/17 MR#: [id number] Acct: [id number] Name: ALISTAIR ARECHIGA Rep #: [id number] : 1945 Provider: ALCIDES Bazzi Age/Sex: 72/F Location: [facility] Status: Signed Intake Vital Signs12/17/17 Height 5 ft 1 in 12/17/17 Weight: 167 lb 4 oz 12/17/17 Body Mass Index (BMI) 31.6 12/17/17 Blood Pressure 140/80 Intake Visit Reasons: pessary check Allergies sulfamethoxazole [From Bactrim] Allergy (Mild, Verified 12/11/17 09:29) Other trimethoprim [From Bactrim] Allergy (Mild, Verified 12/11/17 09:29) Other potassium clavulanate [From Augmentin] Allergy (Verified 12/11/17 09:29) Rash amoxicillin trihydrate [From Augmentin] Adverse Reaction (Verified 12/11/17 09:29) Rash Medications Cranberry 1 tab PO DAILY 04/23/16 [History Confirmed 12/17/17] ascorbic acid (vitamin C) 500 mg capsule mg PO 12/17/17 [History Confirmed 12/17/17] estradiol 0.01% (0.1 mg/gram) vaginal cream 1 g VAGINAL 2XW 12/17/17 [History Confirmed 12/17/17] methenamine hippurate 1 gram tablet 1 g PO BID 12/17/17 [History Confirmed 12/17/17] Is last menstrual period known: No Post menopausal: Yes Patient : No : No PFSH Medical History Hyperlipidemia (Acute) Surgical History H/O tubal ligation (Acute) Family History Father Heart disease CVA (cerebral vascular accident) Social History Smoking Status: Never smoker alcohol intake: current details: social substance use type: does not use caffeine: Yes frequency: 1-2 times per week seatbelt use: always do you feel safe at home: Yes 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 Pregancy History 3 Elective abortions Hx Para 3 Spontaneous abortions Past Pregnancies Del. DateName GA/Weeks Outcome Route Bth WeighInfant GeLabor LgtAnesthesiDel LocatProvider FOB t n h a n HPI pessary check: Details: ALISTAIR ARECHIGA is a 72 year old who presents for pessary check. Was fitted with #3 donut pessary one week ago. States very happy with it. Denies pain, discharge or bleeding. No issues with bowel or bladder habits. Wishes to continue Exam Speculum Exam - Vagina: other (pessary removed, no excoriations/bleeding. Pessary cleaned and replaced) Bimanual Exam- Vagina AND Uterus: normal bimanual exam Bimanual Exam- Adnexa, other: normal adnexae Assessment AND Plan Problems 1. Pessary maintenance Z46.89 2. Cystocele and rectocele with incomplete uterovaginal prolapse N81.2 Plan Pessary was placed with trimosan gel and encouraged patient to use weekly/1 derrick per vagina. 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 Required: No Is patient in pain?: No Allergies sulfamethoxazole [From Bactrim] Allergy (Mild, Verified 12/11/17 09:29) Other trimethoprim [From Bactrim] Allergy (Mild, Verified 12/11/17 09:29) Other potassium clavulanate [From Augmentin] Allergy (Verified 12/11/17 09:29) Rash amoxicillin trihydrate [From Augmentin] Adverse Reaction (Verified 12/11/17 09:29) Rash Medications Cranberry 1 tab PO DAILY 04/23/16 [History Confirmed 12/11/17] Is last menstrual period known: No Post menopausal: Yes Patient : No : No PFSH Medical History Hyperlipidemia (Acute) Surgical History H/O tubal ligation (Acute) Family History Father Heart disease CVA (cerebral vascular accident) Social History Smoking Status: Never smoker alcohol intake: current details: social substance use type: does not use caffeine: Yes frequency: 1-2 times per week seatbelt use: always do you feel safe at home: Yes 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 Pregancy History 3 Elective abortions Hx Para 3 Spontaneous abortions Past Pregnancies Del. DateName GA/Weeks Outcome Route Bth WeighInfant GeLabor LgtAnesthesiDel LocatProvider FOB t n h a n HPI PROLAPSED BLADDER: Details: ALISTAIR ARECHIGA is a 72 year old who presents for bladder prolapse. History of recurrent UTI and is seeing Cheri Cadet NP. States prolapse has worsened over last 6 months. Not sexually active, with multiple medical issues(feeding tube, colostomy) and requires 24 hour care by her. Exam External Female Exam: gaping introitus, normal appearance of the urethra Urethra: normal appearance of the urethra Speculum Exam - Vagina: normal vaginal discharge Speculum Exam - Cervix: normal appearance of the cervix Bimanual Exam- Vagina AND Uterus: uterine size normal, uterine mobility normal, uterus non-tender Bimanual Exam- Adnexa, other: normal adnexae, adnexae non-tender, no adnexal masses, cystocele, rectocele Pelvic Support: cystocele moderate, rectocele mild, other (cervix 3cm above introitus; patient fitted with #3 donut pessary) Office Procedures Pessary Insert Pessary Insertion Indication for Pessary: Yes cystocele, Yes rectocele, Yes uterine prolapse Style: Yes doughnut Size:: 3 triamcinolone used:: No vaginal estrogen prescribed: Yes Assessment AND Plan Problems 1. Fitting and adjustment of pessary Z46.89 2. Cystocele and rectocele with incomplete uterovaginal prolapse N81.2 Plan Discussed pessary vs surgical intervention. Patient agreed to pessary and and was easily fitted with #3 pessary. Tolerated well and was unable to dislodge with activity She is already using estrace cream and will continue Reviewed S AND S infection RTO 1 week. Orders Orders: Coding Level of Care Code No Charge Diagnoses Fitting and adjustment of pessary Z46.89 Cystocele and rectocele with incomplete uterovaginal prolapse N81.2 Additional Codes Pessary Insertion ([id number]) 12/17/17 0815 <Electronically signed by Rayna CASTELLANO> Date Rayna CASTELLANO Cosigner Signature: Date (if applicable) CC: Belem Hagen Start: 11-14-2017 End: 11-14-2017 Kidney and Bladder Comments: See Note; NOTES: [facility] [address] [place] [address] Kidney and Bladder MR#: [id number] Acct: [id number] Name: ALISTAIR ARECHIGA Rep #: [id number] : 1945 F 71 From: Veronica Isaac MD PCP: Belem Hagen NP Status: REG CLI Study: Kidney and Bladder Date of Exam: 11/14/17 Exam# [id number] Ordering Dr: Larry Coleman MD STUDY: RENAL ULTRASOUND - COMPLETE REASON FOR EXAM: Female, 71 years old. UTI TECHNIQUE: Ultrasound evaluation of the kidneys was performed with real-time and static brush-scale imaging. COMPARISON: 11/06/2016 FINDINGS: RIGHT KIDNEY: Normal location of the right kidney, which is normal in size. The right kidney measures 9.3 cm. There is a normal cortex of the right kidney. There is a subcentimeter hyperechoic lesion in the renal cortex which measures 0.6 x 0.6 cm. There are no right renal calculi. There is no right hydronephrosis. DISTAL RIGHT URETER: There is non-visualization of the distal right ureter. There is no demonstrated right ureterovesical junction calculus. There is a visualized right ureteral jet. LEFT KIDNEY: Normal location of the left kidney, which is normal in size. The left kidney measures 10.5 cm. There is a normal cortex of the left kidney. There is a 4.5 x 4.2 cm simple cyst in the lower pole of the left kidney. There are no left renal calculi. There is no left hydronephrosis. DISTAL LEFT URETER: There is non-visualization of the distal left ureter. There is no demonstrated left ureterovesical junction calculus. There is a visualized left ureteral jet. AORTA: No evidence of abdominal aortic aneurysm. I.V.C.: The IVC is patent. BLADDER: The urinary bladder is partially distended and appears unremarkable. There is a prevoid bladder volume of 183 cc. There is a post void bladder volume of 22 cc. US/Kidney and Bladder IMPRESSION: Subcentimeter hyperechoic lesion in the right kidney which likely represents an angiomyolipoma this was seen on the previous ultrasound dated 11/06/2016. Stable simple cyst in the left kidney. No renal stones. No hydronephrosis. Postvoid residual of 22 cc in the urinary bladder. Electronically Signed: Veronica Isaac, at 14:23 EST Tel , Service support , CC: Belem Hagen HARNESS INSTALLER; Larry Coleman MD Insole Lip Turner: Signed Belem Hagen Start: 11-06-2016 End: 11-06-2016 Kidney and Bladder Comments: See Note; NOTES: [facility] [address] [place] [address] Praveend[address] 4d Kidney and Bladder MR#: [id number] Acct: [id number] Name: ALISTAIR ARECHIGA Rep #: [id number] : 1945 F 70 From: Stew Hill MD PCP: Robby Mckenzie Status: REG CLI Study: Kidney and Bladder Date of Exam: 11/06/16 Exam# [id number] Ordering Dr: Robby Mckenzie STUDY: RENAL ULTRASOUND - COMPLETE REASON FOR EXAM: Female, 70 years old. History of a right renal mass most likely representing an angiomyolipoma. TECHNIQUE: Ultrasound evaluation of the kidneys was performed with real-time and static brush-scale imaging. COMPARISON: Comparison is made with prior study dated April 23, 2016. FINDINGS: RIGHT KIDNEY: Normal location of the right kidney, which is normal in size. The right kidney measures 9.9 cm x 5.3 signs by 3.6 cm. There is a normal cortex of the right kidney. The renal cortex measures 1.4 cm. There are 3 subcentimeter echogenic nodules seen within the renal cortex. The largest measures 5 mm x 5 mm x 5 mm. These most likely represent small angiomyolipomas. There are no right renal calculi. There is no right hydronephrosis. DISTAL RIGHT URETER: There is non-visualization of the distal right ureter. There is no demonstrated right ureterovesical junction calculus. There is no demonstrated right ureteral jet. LEFT KIDNEY: Normal location of the left kidney, which is normal in size. The left kidney measures 9.8 cm x 4.9 size by 5.4 cm. There is a normal cortex of the left kidney. The renal cortex measures 1.4 cm. There is a 4.3 cm x 4.9 cm x 4.3 cm cyst in the mid lower aspect of the left kidney. There are no left renal calculi. There is no left hydronephrosis. DISTAL LEFT URETER: There is non-visualization of the distal left ureter. There is no demonstrated left ureterovesical junction calculus. There is no demonstrated left ureteral jet. BLADDER: The urinary bladder is not adequately distended for assessment. 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 Left renal cyst. Electronically Signed: Stew Hill MD at 15:26 EST Tel [phone], Service support [phone], CC: Robby Mckenzie Insole Lip Turner: Signed Robby Mckenzie Work Phone: Start: 04-23-2016 End: 04-23-2016 Chest 1 View (Portable) Comments: See Note; NOTES: [facility] [address] [place] [address] [address] Chest 1 View (Portable) MR#: [id number] Acct: [id number] Name: ALISTAIR ARECHIGA Rep #: [id number] : 1945 F 70 From: Stew Hill MD PCP: Idalia Ellis DO Status: REG ER Study: Chest 1 View (Portable) Date of Exam: 04/23/16 Exam# [id number] Ordering Dr: Martinez Mehta MD STUDY: X-RAY CHEST REASON FOR EXAM: Female, 70 years old. Chest pain. TECHNIQUE: Single AP portable view of the chest. COMPARISON: Comparison is made with prior study dated July 06, 2013. FINDINGS: EKG electrodes are seen. The lungs are clear and expanded. Scattered calcified granulomas. There is no demonstrated pleural abnormality. Normal size heart. Normal mediastinum and es. Normal visualized pulmonary arteries. There is atherosclerotic tortuosity of the aortic arch and descending thoracic aorta. There are diffuse degenerative changes of the visualized thoracic spine. Normal visualized ribs, clavicles, and shoulders. There is no demonstrated abnormality of the visualized soft tissue structures of the upper abdomen. IMPRESSION: No acute abnormality is seen. Electronically Signed: Stew Hill MD at 12:40 EDT Tel [phone], Service support [phone], RAD/Chest 1 View (Portable) IMPRESSION: No acute abnormality is seen. Electronically Signed: Stew Hill MD at 12:40 EDT Tel [phone], Service support [phone], CC: Idalia Ellis DO; Martinez Mehta MD Insole Lip Turner: Signed Belem Hagen Start: 03-11-2016 End: 03-11-2016 Ecg routine ecg w/least 12 lds w/i&r [MEASUREMENTS ANALYSIS] Date of Test: 03/11/2016 10:15:53; Heart Rate: 70; ND Interval: 142; QRS: 98; QT Interval: 394; Corrected QT Interval (QTc): 411; P Wave Alderson: 32; QRS Wave Alderson: -11; T Wave Alderson: 29; Blood Pressure: 130/80 [ECG DIAGNOSTIC STATEMENTS] Date of Test: 03/11/2016 10:15:53; Summary: Sinus Rhythm WITHIN NORMAL LIMITS Idalia Ellis Work Phone: Comment on above: ekg showed normal sinus rhythym, normal axis, no acute st/t wave changes Carpal tunnel syndro me (disorder) DR VERONICA CARLISLE MD Comment on above: bilateral wrists Excision of mass DR VERONICA GREEN MD Comment on above: left breast Ligation of fallopian tube T aylor Chicho Ligation of fallopian tube A ngela Slarb Ligation of fallopian tube M organ Guerrero Ligation of fallopian tube J asmin Gravius Ligation of fallopian tube M organ Daniel Ligation of fallopian tube T racy Cara Ligation of fallopian tube M organ Daniel Ligation of fallopian tube M organ Daniel Ligation of fallopian tube M organ Daniel DEPUTY BAILIFF Ligation of fallopian tube P deepthi Goodman [place] Ligation of fallopian tube T racy Cara DEPUTY BAILIFF Ligation of fallopian tube T racy Cara DEPUTY BAILIFF Ligation of fallopian tube A ngela Slarb DEPUTY BAILIFF Ligation of fallopian tube K ayela Brinda LIGHT BULB REPLACER Ligation of fallopian tube A ngela Slarb DEPUTY BAILIFF Ligation of fallopian tube A ngela Slarb DEPUTY BAILIFF Ligation of fallopian tube D akota Allston DEPUTY BAILIFF Ligation of fallopian tube C helsea Manchak LIGHT BULB REPLACER Ligation of fallopian tube D R VERONICA CARLISLE MD Screening for osteoporosis [place] for osteoporosis (Renamed from Encounter for screening for osteoporosis) [place] Hagen Screening for osteoporosis Screbhargav mead for osteoporosis (Renamed from Encounter for screening for osteoporosis) [place] Hagen [employer] Work Phone: Urine culture HARNESS INSTALLER-C [place] cagle HARNESS INSTALLER Work Phone: Plan of Treatment Date Care Activity Detail Author Start: 07-21-2025 [facility] Start: 04-23-2025 [facility] Start: 04-23-2025 [facility] Start: 04-11-2025 [facility] Start: 04-07-2025 [facility] Start: 04-04-2025 [facility] Start: 04-04-2025 [facility] Start: 03-16-2025 Patient referral [facility] Work Phone: Start: 03-09-2025 Patient referral [facility] Work Phone: Start: 02-22-2025 Bx/exc lymph node open deep axillary node BIOPSY/REMOVAL LYMPH NODES [facility] Start: 02-22-2025 Mastectomy partial PARTIAL MASTECTOMY [facility] Start: 02-22-2025 Patient discharge [facility] Start: 01-28-2025 Anes integ extremities ant trunk & perineum nos ANESTH SKIN EXT/PER/ATRUNK [facility] Start: 01-28-2025 Exc cyst/aberrant breast tissue open 1/> lesion REMOVAL OF BREAST LESION [facility] Start: 01-28-2025 Patient discharge [facility] Start: 10-03-2023 [facility] Work Phone: Start: 10-03-2023 Provider Instructions for Treatment [facility]; [facility] Work Phone: Start: 05-23-2023 Assay of amylase [facility]; [facility] Work Phone: Start: 05-23-2023 Assay of lipase [facility]; [facility] Work Phone: Start: 05-23-2023 Blood count complete automated [facility]; [facility] Work Phone: Start: 05-23-2023 C-reactive protein [facility]; [facility] Work Phone: Start: 05-23-2023 Comprehensive [facility]; [facility] Work Phone: Start: 05-15-2023 Blood count manual cell count each [facility]; [facility] Work Phone: Start: 05-15-2023 C-reactive protein [facility]; [facility] Work Phone: Start: 05-15-2023 [facility]; [facility] Work Phone: Start: 05-15-2023 Procedure Education [facility]; [facility] Work Phone: Start: 05-15-2023 Provider Instructions for Treatment [facility]; [facility] Work Phone: Start: 05-15-2023 Sedimentation rate rbc non-automated [facility]; [facility] Work Phone: Start: 03-17-2023 Assay of amylase [facility]; [facility] Work Phone: Start: 03-17-2023 Assay of lipase [facility]; [facility] Work Phone: Start: 03-17-2023 Bilirubin direct [facility]; [facility] Work Phone: Start: 03-17-2023 Blood count complete auto&auto difrntl wbc [facility]; [facility] Work Phone: Start: 03-17-2023 [facility]; [facility] Work Phone: Start: 03-17-2023 Procedure Education [facility]; [facility] Work Phone: Start: 12-24-2022 Culture bct isol&prsmptv id isolate ea urine URINE JESÚS CULTURE-IDENTIFICATN ([id number]) [facility]; [facility] Work Phone: Start: 12-24-2022 Procedure Education [facility]; [facility] Work Phone: Start: 11-07-2022 Culture bct isol&prsmptv id isolate ea urine URINE JESÚS CULTURE-IDENTIFICATN ([id number]) [facility]; [facility] Work Phone: Start: 11-07-2022 Procedure Education [facility]; [facility] Work Phone: Start: 09-24-2022 Procedure Education [facility]; [facility] Work Phone: Start: 09-24-2022 Culture bct isol&prsmptv id isolate ea urine URINE JESÚS CULTURE-IDENTIFICATN ([id number]) [facility]; [facility] Work Phone: Start: 03-11-2022 Procedure Education [facility]; [facility] Work Phone: Start: 03-11-2022 Provider Instructions for Treatment [facility]; [facility] Work Phone: Start: 01-27-2022 Assay of thyroid stimulating hormone tsh [facility]; [facility] Work Phone: Comment on above: March 03 2022 Start: 12-11-2021 Procedure Education [facility]; [facility] Work Phone: Start: 12-11-2021 Provider Instructions for Treatment [facility]; [facility] Work Phone: Start: 12-11-2021 Lipid panel [facility]; [facility] Work Phone: Comment on above: Fax to [facility] for Jan 25 Start: 12-11-2021 Blood count complete auto&auto difrntl wbc [facility]; [facility] Work Phone: Comment on above: Jan 25, 2022 Start: 12-11-2021 Assay of thyroid stimulating hormone tsh [facility]; [facility] Work Phone: Comment on above: Jan 25, 2022, Fax to [facility] Start: 12-05-2021 Blood count complete auto&auto difrntl wbc [facility]; [facility] Work Phone: Start: 12-05-2021 Comprehensive [facility]; [facility] Work Phone: Start: 12-05-2021 Lipid panel [facility]; [facility] Work Phone: Start: 12-05-2021 Assay of thyroid stimulating hormone tsh [facility]; [facility] Work Phone: Start: 09-26-2021 Procedure Education [facility]; [facility] Work Phone: Start: 09-26-2021 Provider Instructions for Treatment [facility]; [facility] Work Phone: Start: 09-26-2021 Hemoglobin glycosylated a1c [facility]; [facility] Work Phone: Start: 08-31-2021 Comprehensive [facility]; [facility] Work Phone: Start: 06-08-2021 Procedure Education [facility]; [facility] Work Phone: Start: 06-08-2021 Provider Instructions for Treatment [facility]; [facility] Work Phone: Start: 05-21-2021 [facility]; [facility] Work Phone: Start: 05-21-2021 Assay of free thyroxine [facility]; [facility] Work Phone: Start: 05-21-2021 Free T4 [Mass/Vol] T4, FREE (THYROXINE) ([id number]) [facility]; [facility] Work Phone: Start: 05-21-2021 Assay of triiodothyronine t3 free [facility]; [facility] Work Phone: Start: 05-21-2021 Free T3 [Mass/Vol] T3, FREE (TRIDOTHYRONINE) ([id number]) [facility]; [facility] Work Phone: Start: 05-21-2021 Assay of thyroid stimulating hormone tsh [facility]; [facility] Work Phone: Start: 05-21-2021 TSH Qn TSH (THYROID STIMULATING HORMONE) ([id number]) [facility]; [facility] Work Phone: Start: 02-19-2021 Procedure Education [facility]; [facility] Work Phone: Start: 02-19-2021 Provider Instructions for Treatment [facility]; [facility] Work Phone: Start: 01-30-2021 Procedure Education [facility]; [facility] Work Phone: Start: 01-30-2021 Provider Instructions for Treatment [facility]; [facility] Work Phone: Start: 01-30-2021 Culture bct isol&prsmptv id isolate ea urine URINE JESÚS CULTURE-IDENTIFICATN ([id number]) [facility]; [facility] Work Phone: Start: 01-03-2021 Procedure Education [facility]; [facility] Work Phone: Start: 10-23-2020 Procedure Education [facility] Work Phone: Start: 10-23-2020 Provider Instructions for Treatment [facility] Work Phone: Start: 10-23-2020 Blood count complete auto&auto difrntl wbc [facility] Work Phone: Comment on above: January 2021 Start: 10-23-2020 Comprehensive [facility] Work Phone: Comment on above: January 2021 Start: 10-23-2020 Assay of thyroid stimulating hormone tsh [facility]; [facility] Work Phone: Comment on above: January 2021 Start: 10-23-2020 TSH Qn TSH (THYROID STIMULATING HORMONE) ([id number]) [facility] Work Phone: Comment on above: January 2021 Start: 10-23-2020 HbA1c (Bld) [Mass fraction] HGB A1C ([id number]) [facility] Work Phone: Comment on above: january 2021 Start: 10-23-2020 Hemoglobin glycosylated a1c [facility]; [facility] Work Phone: Comment on above: january 2021 Start: 09-18-2020 Procedure Education [facility] Work Phone: Start: 06-21-2020 Procedure Education [facility] Work Phone: Start: 06-21-2020 Provider Instructions for Treatment [facility] Work Phone: Start: 06-21-2020 Lipid panel [facility] Work Phone: Comment on above: Oct 2020 Start: 03-01-2020 Procedure Education [facility] Work Phone: Start: 03-01-2020 Provider Instructions for Treatment [facility] Work Phone: Start: 02-28-2020 Procedure Education [facility] Work Phone: Start: 10-14-2019 Procedure Education [facility] Work Phone: Start: 10-14-2019 Culture bct isol&prsmptv id isolate ea urine URINE JESÚS CULTURE-IDENTIFICATN ([id number]) [facility] Work Phone: Start: 12-02-2018 Procedure Education [facility] Work Phone: Start: 12-02-2018 Provider Instructions for Treatment [facility] Work Phone: Start: 12-02-2018 Culture bct isol&prsmptv id isolate ea urine [facility] Work Phone: Start: 07-27-2018 Procedure Education [facility] Work Phone: Start: 07-27-2018 Provider Instructions for Treatment [facility] Work Phone: Start: 10-16-2017 Patient Education [facility] Work Phone: Start: 10-16-2017 Procedure Education [facility] Work Phone: Start: 10-16-2017 Provider Instructions for Treatment [facility] Work Phone: Start: 07-18-2017 Procedure Education [facility] Work Phone: Start: 07-18-2017 Provider Instructions for Treatment [facility] Work Phone: Start: 12-16-2016 Procedure Education [facility] Work Phone: Start: 12-16-2016 Culture bct isol&prsmptv id isolate ea urine [facility] Work Phone: Start: 09-23-2016 Procedure Education [facility] Work Phone: Start: 09-23-2016 Provider Instructions for Treatment [facility] Work Phone: Start: 08-07-2016 Assay of free thyroxine [facility]; [facility] Work Phone: Start: 08-07-2016 T4 free mass conc T4, FREE (THYROXINE) ([id number]) [facility] Work Phone: Start: 08-07-2016 Assay of triiodothyronine t3 free [facility]; [facility] Work Phone: Start: 08-07-2016 T3 free mass conc T3, FREE (TRIDOTHYRONINE) ([id number]) [facility] Work Phone: Start: 08-06-2016 Procedure Education [facility] Work Phone: Start: 08-06-2016 Provider Instructions for Treatment [facility] Work Phone: Start: 08-06-2016 Urine albumin quantitative [facility] Work Phone: Start: 08-06-2016 25 hydroxy includes fractions if performed [facility] Work Phone: Start: 08-06-2016 Assay of thyroid stimulating hormone tsh [facility]; [facility] Work Phone: Start: 08-06-2016 Thyrotropin Qn TSH (THYROID STIMULATING HORMONE) ([id number]) [facility] Work Phone: Start: 08-06-2016 Lipid panel [facility] Work Phone: Start: 08-06-2016 Comprehensive [facility] Work Phone: Start: 08-06-2016 Blood count complete auto&auto difrntl wbc [facility] Work Phone: Start: 08-06-2016 Gluc bld gluc mntr dev cleared fda spec home use [facility]; [facility] Work Phone: Start: 08-06-2016 Glucose mass conc Blood Glucose , Office ([id number]) [facility] Work Phone: Start: 05-02-2016 Procedure Education [facility] Work Phone: Start: 05-02-2016 Provider Instructions for Treatment [facility] Work Phone: Start: 04-19-2016 Procedure Education [facility] Work Phone: Start: 04-19-2016 Provider Instructions for Treatment [facility] Work Phone: Start: 03-14-2016 Patient Education [facility] Work Phone: Start: 03-14-2016 Procedure Education [facility] Work Phone: Start: 03-11-2016 Procedure Education [facility] Work Phone: Start: 03-11-2016 Blood count complete auto&auto difrntl wbc [facility] Work Phone: Start: 03-11-2016 Comprehensive [facility] panel [facility] Work Phone: Start: 03-11-2016 Hemoglobin A1c/Hemoglobin.total mass fraction (Bld) HGB A1C (77322) [facility] Work Phone: Start: 03-11-2016 Hemoglobin glycosylated a1c [facility]; [facility] Work Phone: Start: 03-11-2016 Lipid panel [facility] Work Phone: Start: 10-09-2015 Blood count complete auto&auto difrntl wbc [facility] Work Phone: Start: 10-09-2015 Comprehensive [facility] panel [facility] Work Phone: Start: 10-09-2015 Lipid panel [facility] Work Phone: Start: 10-09-2015 Alpha-fetoprotein serum [facility] Work Phone: Start: 06-21-2015 Blood count manual cell count each [facility] Work Phone: Start: 06-21-2015 Lipid panel [facility] Work Phone: Start: 06-21-2015 Comprehensive [facility] panel [facility] Work Phone: Start: 05-31-2015 Procedure Education [facility] Work Phone: Start: 05-31-2015 Provider Instructions for Treatment [facility] Work Phone: Start: 02-15-2015 Lipid panel [facility] Work Phone: Start: 02-15-2015 Alpha-fetoprotein serum [facility] Work Phone: Start: 02-15-2015 Urine albumin quantitative [facility] Work Phone: Start: 02-15-2015 Comprehensive [facility] panel [facility] Work Phone: Start: 02-15-2015 Procedure Education [facility] Work Phone: Start: 10-20-2014 Provider Instructions for Treatment [facility] Work Phone: Start: 10-19-2014 Comprehensive metabolic panel [facility] Work Phone: Start: 10-19-2014 Lipid panel [facility] Work Phone: Start: 09-12-2014 Comprehensive [facility] panel [facility] Work Phone: Start: 07-20-2014 Patient Education [facility] Work Phone: Start: 07-20-2014 Procedure Education [facility] Work Phone: Start: 07-20-2014 Provider Instructions for Treatment [facility] Work Phone: Start: 07-20-2014 Comprehensive metabolic panel [facility] Work Phone: Start: 03-16-2014 Provider Instructions for Treatment [facility] Work Phone: Start: 03-16-2014 Comprehensive metabolic panel [facility] Work Phone: Start: 03-16-2014 Lipid panel [facility] Work Phone: Start: 12-08-2013 Patient Education [facility] Work Phone: Start: 12-08-2013 Provider Instructions for Treatment [facility] Work Phone: Start: 11-09-2013 Provider Instructions for Treatment [facility] Work Phone: Start: 11-09-2013 aPTT Coag time (Bld) PTT (Activated Partial Thromboplastin Time) (57095) [facility] Work Phone: Start: 11-09-2013 Thromboplastin time partial plasma/whole blood [facility]; [facility] Work Phone: Start: 11-09-2013 Prothrombin time [facility]; [facility] Work Phone: Start: 11-09-2013 Prothrombin time (PT) Coag time (PPP) PT (Prothrobim Time) (16777) [facility] Work Phone: Start: 11-09-2013 Alpha-fetoprotein serum [facility] Work Phone: Start: 11-09-2013 Urine albumin quantitative [facility] Work Phone: Start: 11-09-2013 Lipid panel [facility] Work Phone: Start: 11-09-2013 Blood count manual cell count each [facility] Work Phone: Start: 11-09-2013 Comprehensive [facility] panel [facility] Work Phone: Start: 08-06-2013 Patient Education [facility] Work Phone: Start: 08-06-2013 Provider Instructions for Treatment [facility] Work Phone: Start: 08-06-2013 Comprehensive [facility] panel [facility] Work Phone: Start: 08-06-2013 Lipid panel [facility] Work Phone: Start: 06-30-2013 Patient Education [facility] Work Phone: Start: 06-30-2013 Alpha-fetoprotein serum [facility] Work Phone: Start: 06-30-2013 aPTT Coag time (Bld) PTT (Activated Partial Thromboplastin Time) (43352) [facility] Work Phone: Start: 06-30-2013 Thromboplastin time partial plasma/whole blood [facility]; [facility] Work Phone: Start: 06-30-2013 Prothrombin time [facility]; [facility] Work Phone: Start: 06-30-2013 Prothrombin time (PT) Coag time (PPP) PT (Prothrobim Time) (48106) [facility] Work Phone: Start: 06-30-2013 Lipid panel [facility] Work Phone: Start: 06-30-2013 Blood count manual cell count each [facility] Work Phone: Start: 06-30-2013 Comprehensive [facility] panel [facility] Work Phone: Start: 02-18-2012 Lipid panel [facility] Work Phone: Start: 01-27-2012 Cytp cerv/vag auto thin layer prep mnl screen [facility] Work Phone: Microscopic urinalysis [facility] Organism count, microscopic method [facility] Patient referral [facility] Work Phone: Urinalysis, blood, qualitative [facility] Urine microscopy: epithelial cells [facility] White blood cell count [facility] Work Phone: [facility] Work Phone: [facility] Work Phone: [facility] Work Phone: [facility] Work Phone: [facility] Work Phone: [facility] Work Phone: [facility] Work Phone: [facility] Work Phone: [facility] Work Phone: [facility] Work Phone: [facility] Work Phone: [facility] Work Phone: [facility] Work Phone[facility] Work Phone: [facility] Work Phone[facility] Work Phone[facility] Work Phone[facility] Work Phone: [facility]; [facility] Work Phone: [facility]; [facility] Work Phone: [facility]; [facility] Work Phone: [facility]; [facility] Work Phone: [facility]; [facility] Work Phone: Immunizations Immunization Date Immunization Notes Care Provider [facility] 12-10-2024 SARS-CoV-2 (COVID-19 ) [id number] DR VERONICA CARLISLE MD [facility] 10-24-2023 SARS-CoV-2 (COVID-19 ) mRNA-[id number] DR VERONICA CARLISLE MD [facility] 10-20-2021 SARS-CoV-2 (COVID-19 ) mRNA-[address] VERONICA CARLISLE MD [facility] 04-06-2021 SARS-CoV-2 (COVID-19 ) mRNA-[address] VERONICA CARLISLE MD [facility] 03-10-2021 SARS-CoV-2 (COVID-19 ) mRNA-[address] VERONICA CARLISLE MD [facility] Payers Date Payer Category Payer Self-pay [id number] 2023 Private Health Insurance [id number] 2014 Private Health Insurance [id number] 2011 Unknown [id number] 1946 Unknown [id number] 2.16.8 [id number] 1946 Unknown [id number] 2.16.84 0.1.257662.3.579.2.716 1946 Unknown [id number] 2.16. 840.1.794662.3.579.2.627 1946 Unknown [id number] 2.16. 840.1.994924.3.579.2.627 1946 Unknown [id number] 2.16. 840.1.502190.3.579.2.627 Unknown Unknown [id number] 2.16.8 40.1.409183.3.579.2.462 Unknown [id number] 2.16.8 40.1.890027.3.579.2.462 Unknown [id number] 2.16.8 40.1.689763.3.579.2.462 Unknown [id number] 2.16.8 40.1.569262.3.579.2.462 Unknown [id number] 2.16.8 40.1.844871.3.579.2.462 Unknown [id number] 2.16.8 40.1.626467.3.579.2.462 Unknown [id number] 2.16.8 40.1.686113.3.579.2.462 Unknown [id number] 2.16.8 40.1.587893.3.579.2.462 Unknown [id number] 2.16.8 40.1.478629.3.579.2.462 Unknown [id number] 2.16.8 40.1.555413.3.579.2.462 Unknown [id number] 2.16.8 40.1.335380.3.579.2.462 Unknown [id number] 2.16.8 40.1.864015.3.579.2.462 Unknown [id number] 2.16.8 40.1.607627.3.579.2.462 Unknown [id number] 2.16.8 40.1.351541.3.579.2.462 Unknown [id number] 2.16.8 40.1.261859.3.579.2.462 Unknown [id number] 2.16.8 40.1.590713.3.579.2.462 Unknown [id number] 2.16.8 40.1.434479.3.579.2.462 Unknown [id number] 2.16.8 40.1.956886.3.579.2.462 Unknown [id number] 2.16.8 40.1.152343.3.579.2.462 Unknown [id number] 2.16.8 40.1.104708.3.579.2.462 Unknown [id number] 2.16.8 40.1.665347.3.579.2.462 Unknown [id number] 2.16.8 [id number] Unknown [id number] 2.16.8 40.1.746683.3.579.2.462 Unknown [id number] 2.16.8 40.1.522350.3.579.2.462 Unknown [id number] 2.16.8 40.1.685102.3.579.2.462 Unknown [id number] 2.16.8 40.1.841501.3.579.2.462 Unknown [id number] 2.16.8 40.1.667449.3.579.2.462 Unknown [id number] 2.16.8 40.1.260969.3.579.2.462 Unknown [id number] 2.16.8 40.1.782860.3.579.2.462 Unknown [id number] 2.16.8 40.1.059195.3.579.2.462 Unknown [id number] 2.16.8 40.1.225984.3.579.2.462 Unknown [id number] 2.16.8 40.1.222016.3.579.2.462 Unknown [id number] 2.16.8 40.1.230463.3.579.2.462 Unknown [id number] 2.16.8 40.1.390595.3.579.2.462 Unknown [id number] 2.16.8 40.1.676015.3.579.2.462 Unknown [id number] 2.16.8 40.1.088127.3.579.2.462 Unknown [id number] 2.16.8 40.1.434966.3.579.2.462 Unknown [id number] 2.16.8 40.1.678598.3.579.2.462 Unknown [id number] 2.16.8 40.1.624548.3.579.2.462 Unknown [id number] 2.16.8 40.1.483718.3.579.2.462 Social History Date Type Detail Facility Start: 09-27-2025 Alcohol Use Never smoker [facility] Work Phone: Comment on above: occasional worked at [employer]- retired- now works with [employer] Tobacco use: Never smoker. [facility] Work Phone: Tobacco use: Tobacco use: [facility]; [facility] Work Phone: Start: 02-28-2022 End: 01-27-2024 Tobacco smoking status NHIS Unknown if ever smoked [facility] Start: 06-13-2020 None [facility] Start: 06-13-2020 Spouse/ Signif icant Other [facility] Start: 04-14-2021 Non-smoker [facility] Start: 1945 Sex Assigned At Female W [facility] Start: 02-15-2025 End: 08-29-2025 Tobacco smoking status NHIS Never smoked tobacco (finding) [facility] Start: 02-22-2025 End: 08-16-2025 Sex Female (finding) [facility] Sexual Orientation [facility] Sex Female [facility] Social / personal history observable (observable entity) [facility] Start: 09-27-2025 End: 09-27-2025 Not applicable (qualifier value) [facility] NEGATED: Highlighted row Not [facility] Medical Equipment Procedure Code Equipment Code Equipment Origin al Text Equipment Identifier Dates Lumpectomy, breast, bilateral, after needle localization, with bilateral sentinel and Ligation clip, metallic ()[id number] FDA Start: 02-22-2025 Lumpectomy, breast, bilateral, after needle localization, with bilateral sentinel and Ligation clip, metallic ()[id number] FDA Start: 02-22-2025 Goals Date Patient Goal Desired Activity /State Functional Status Date Assessment Result Facility 09-29-2025 Functional Status Room check performed [facility] 09-29-2025 Functional Status Independent [facility] 09-29-2025 [facility] 09-29-2025 Functional Status [facility] 09-28-2025 Functional Status [facility] 09-28-2025 Functional Status [facility] 09-28-2025 [facility] 09-28-2025 Functional Status [facility] 09-28-2025 Functional Status left thigh high [facility] 09-28-2025 Functional Status [facility] 09-28-2025 [facility] 09-27-2025 Functional Status Ge[facility] 09-27-2025 Functional Status [facility] 09-27-2025 Functional Status Split level [facility] 09-27-2025 Functional Status None [facility] 09-27-2025 Functional Status ice on, tension pillow in place [facility] 09-27-2025 Functional Status Maintained [facility] Mental Status Date Assessment Result Facility 09-29-2025 Mental Status Oriented x 4 [facility] 09-29-2025 Mental Status [facility] 09-28-2025 Mental Status [facility] 09-28-2025 Mental Status [facility] 07-21-2025 Cognitive function Voice/Name [facility] Work Phone: 04-23-2025 Cognitive function Level Of Cons ciousness Awake;Alert;Appropriate;Follo ws Commands [facility] Work Phone: 04-11-2025 Cognitive function Level Of Cons ciousness Awake;Alert;Appropriate;Follo ws Commands [facility] Work Phone: 04-07-2025 Cognitive function Level Of Cons ciousness Awake;Alert;Appropriate [facility] Work Phone: 04-04-2025 Cognitive function Voice/Name [facility] Work Phone: 02-22-2025 Cognitive function Voice/Name;Touch/Shaki ng [facility] Work Phone: 01-28-2025 Cognitive function Voice/Name [facility] Work Phone: 03-10-2023 Cognitive function Voice/Name [facility] Work Phone: 03-09-2023 Cognitive function Voice/Name [facility] Work Phone: 05-16-2022 Cognitive function Level Of Cons ciousness Awake;Alert;Appropriate;Follo ws Commands [facility] Work Phone: 02-28-2022 Cognitive function Level Of Cons ciousness Awake;Alert [facility] Work Phone: Clinical Notes 03-09-2023 to 09-29-2025 Note Date & Type Note Facility 09-29-2025 Discharge summary Date of Service September 29, 2025 Hospital Course Patient is a 79-year-old female who has had ongoing left knee pain. After failing conservative measures, the patient opted to proceed with a robotic assisted left total knee arthroplasty. The patient underwent the above stated procedure on September 27, 2025. Patient did receive perioperative antibiotics. Intraoperatively was uneventful. For details, please see dictated operative note. The patient was placed in thigh-high teds, bilateral SCDs, remained stable in recovery. Patient was admitted to the second floor at [facility]. The patient's pain was managed with the use of IV and p.o. pain medications. Patient participated in physical therapy. Patient was discharged on postoperative day # 2 to home. Patient was having increased pain on postoperative day #1 which did require her to stay an additional night. Today she is doing much better and she has tolerated therapy. Patient has not had a bowel movement yet but has been passing gas. Patient was given prescriptions for: Xarelto, oxycodone. For pain control patient will be on extra strength Tylenol 500 mg 2 tablets 3 times daily. She will use the oxycodone 5 mg 1-2 tablets every 4 hours as needed for breakthrough pain. We are avoiding nonsteroidal anti-inflammatory while she is on the anticoagulation for DVT prophylaxis. Patient is currently on Xarelto for 2 weeks postoperatively for DVT prophylaxis due to hormone therapy with previous breast cancer. The plan will be when she has finished with the Xarelto she will then switch over to aspirin 81 mg twice daily for an additional 2 weeks. She will continue with the stool softener until her first bowel movement. If she has no bowel movement by tomorrow afternoon she will contact our office for additional instructions. She will remove the dressing on postoperative day #5. Patient has outpatient physical therapy established. Patient will follow-up with [facility] per postop instructions. Allergies Augmentin Rash Bactrim Rash sulfa drugs Rash Procedures Robotic assisted left total knee arthroplasty Consults Consult to Anesthesia - Ordered -- 09/27/25 7:30:00 EDT, surgery pending, ADDUCTOR CANAL NERVE BLOCK TO BE PLACED IN PRE OP BY ANESTHESIA FOR POST OP PAIN CONTROL Consult to Physician - Ordered -- 09/27/25 12:31:00 EDT, BRITTANY ARREOLA APRN-CRIMIN[employer]ICE LAWYER, Routine, ok to see tomorrow, Constant order, Medical physician. Objective Vitals and Measurements T: 37.0 C (Oral) TMIN: 36.6 C (Oral) TMAX: 37.0 C (Oral) HR: 82 (Monitored) RR: 14 BP: 148/59 SpO2: 94% Weight Dosing Weight: 77.3 kg (09/27/25) Dosing Weight: 77.3 kg (09/27/25) Vital signs stable, afebrile SCD's and KELLY Hose in place bilaterally Patient is able to plantarflex and dorsiflex actively Sensation is intact to saphenous, sural, superficial and deep peroneal, and tibial distribution Dressings are clean dry and intact Negative signs and symptoms of DVT, negative Homans bilaterally Code Status Code Status - Ordered -- 09/27/25 11:38:00 EDT, Full Code, Constant Order Admission Date September 27, 2025 Discharge Date September 29, 2025 Medications New Prescription acetaminophen (Tylenol)1,000 Milligram by mouth three (3) times a day. not to exceed 3000 mg/day. docusate-senna (Senokot S)2 tab(s) by mouth two (2) times a day. Take until first bowel movement, then as needed. oxyCODONE (oxyCODONE 5 mg oral tablet ( IMMEDIATE release ))1-2 tab(s) Oral q4h; as needed as needed for pain. Refills: 0. rivaroxaban (Xarelto 10 mg oral tablet)1 tab(s) by mouth once a day for 12 Days. Take for 2 weeks postoperatively for DVT prophylaxis due to hormone therapy.. Refills: 0. Changed ALPRAZolam (ALPRAZolam 0.5 mg oral tablet)1 tab(s) by mouth once a day as needed for anxiety. Unchanged amLODIPine (amLODIPine 5 mg oral tablet)1 tab(s) by mouth once a day. anastrozole (anastrozole 1 mg oral tablet)1 tab(s) by mouth every day. ascorbic acid (Vitamin C 500 mg oral tablet, chewable)1 tab(s) Chewed every day. boric acid topical (boric acid 600 mg vaginal kit)1 suppository(ies) Vaginal every Friday for 10 Days. calcium-vitamin D (calcium (as carbonate and lactate)-vitamin D 200 mg-6.25 mcg oral tablet)1 tab(s) by mouth once a day. cholecalciferol (Vitamin D3)C100 mcg by mouth every day. fenofibric acid (fenofibric acid 135 mg oral delayed release capsule)1 cap by mouth every day. glucosamine (glucosamine 500 mg oral capsule)1 cap by mouth once a day. hydrALAZINE (hydrALAZINE 25 mg oral tablet)1 tab(s) by mouth once a day as needed Other (see order comments). Take with food. meclizine (meclizine 25 mg oral tablet)1 tab(s) by mouth three (3) times a day as needed as needed for dizziness. methenamine (methenamine hippurate 1 g oral tablet)1 tab(s) by mouth two (2) times a day for 5 Days. nystatin topical (nystatin 100,000 units/g topical ointment)1 application Topical two (2) times a day as needed Excoriation. pantoprazole (pantoprazole 40 mg oral enteric coated tablet)1 tab(s) by mouth once a day before a meal. sertraline (Zoloft 50 mg oral tablet)1 tab(s) by mouth every day. vitamin E (vitamin E 45 mg oral capsule)1 cap by mouth once a day. Follow Up Follow Up with [facility] When:09/30/2025 10:00 AM EDT Where:[address] [place] [address] [phone] Additional Information: This is your first physical therapy appointment. Follow-up as scheduled. Follow Up with AKIKO HENRY PA-C, Orthopedic When:10/11/2025 10:30 AM EST Where:[address], [facility] [address] [place] [address] [phone] Additional Information: This is your post-op appointment. Follow-up as scheduled. Follow Up Appointments No qualifying data available. Follow Up Labs/Studies Discharge Labs No Follow-up Labs Discharge Studies No Follow-up Studies Discharge Diet No qualifying data available. Discharge Activity No qualifying data available. Condition on Discharge Stable Readmission Risk/Palliative Score LACE Score: 1 (09/27/25 12:51:00) Palliative Total Score: 0 (09/27/25 12:41:00) Discharge Disposition Stable Digitally Signed by KUNAL CONTRERAS PA-C on 09/29/2025 02:[address] [facility] 09-29-2025 Note Discharge Instructions Thank you for allowing [facility] to assist you with your healthcare needs. The following is important discharge information regarding your hospital visit. Your Care Team Dr Russel Carlisle Your Diagnosis Breast CA Hypertension Mild renal insufficiency Osteoarthritis Status post total left knee replacement What to do next Follow Up Appointments Follow Up with [facility] When:09/30/2025 10:00 AM EDT Where:[address] [facility] [place] [phone] Additional Information: This is your first physical therapy appointment. Follow-up as scheduled. Follow Up with AKIKO HENRY PA-C, Orthopedic When:10/11/2025 10:30 AM EST Where:[address] [facility] [address] [facility] [place] [address] [phone] Additional Information: This is your post-op appointment. Follow-up as scheduled. Allergies Augmentin Rash Bactrim Rash sulfa drugs Rash Medications Please ask your primary doctor or pharmacist before taking any other medication not listed, including over the counter drugs, herbal medications, vitamins and or supplements as they may interact with your home medications. What How Much When Why Instructions Last Dose New acetaminophen (Tylenol) 1,000 Milligram by mouth Three (3) times a day not to exceed 3000 mg/ day 09/29/25 1206PM New docusate-senna (Senokot S) 2 tab(s) by mouth Two (2) times a day Take until first bowel movement, then as needed 09/29/25 0929AM New oxyCODONE (oxyCODONE 5 mg oral tablet ( IMMEDIATE release )) See instructions Status post total left knee replacement 1-2 tab(s) Oral q4h, As needed for as needed for pain Pickup at [facility] 09/29/25 New rivaroxaban (Xarelto 10 mg oral tablet) 1 tab(s) by mouth Once a day Status post total left knee replacement Breast CA Duration: 12 Days Take for 2 weeks postoperatively for DVT prophylaxis due to hormone therapy. Pickup at [facility] 09/29/29 0929AM Changed ALPRAZolam (ALPRAZolam 0.5 mg oral tablet) 1 tab(s) by mouth Once a day as needed for for anxiety NA Unchanged amLODIPine (amLODIPine 5 mg oral tablet) 1 tab(s) by mouth Once a day 09/29/25 0929AM Unchanged anastrozole (anastrozole 1 mg oral tablet) 1 tab(s) by mouth Every day 09/29/25 0929AM Unchanged ascorbic acid (Vitamin C 500 mg oral tablet, chewable) 1 tab(s) Chewed Every day NA Unchanged boric acid topical (boric acid 600 mg vaginal kit) 1 suppository(ies) Vaginal Every Friday Duration: 10 Days NA Unchanged calcium-vitamin D (calcium (as carbonate and lactate)-vitamin D 200 mg-6.25 mcg oral tablet) 1 tab(s) by mouth Once a day NA Unchanged cholecalciferol (Vitamin D3) C100 mcg by mouth Every day NA Unchanged fenofibric acid (fenofibric acid 135 mg oral delayed release capsule) 1 cap by mouth Every day NA Unchanged glucosamine (glucosamine 500 mg oral capsule) 1 cap by mouth Once a day NA Unchanged hydrALAZINE (hydrALAZINE 25 mg oral tablet) 1 tab(s) by mouth Once a day as needed for Other (see order comments) Take with food NA Unchanged meclizine (meclizine 25 mg oral tablet) 1 tab(s) by mouth Three (3) times a day as needed for as needed for dizziness NA Unchanged methenamine (methenamine hippurate 1 g oral tablet) 1 tab(s) by mouth Two (2) times a day Duration: 5 Days NA Unchanged nystatin topical (nystatin 100,000 units/ g topical ointment) 1 application Topical Two (2) times a day as needed for Excoriation NA Unchanged pantoprazole (pantoprazole 40 mg oral enteric coated tablet) 1 tab(s) by mouth Once a day before a meal 09/29/25 0929AM Unchanged sertraline (Zoloft 50 mg oral tablet) 1 tab(s) by mouth Every day 09/29/25 0929AM Unchanged vitamin E (vitamin E 45 mg oral capsule) 1 cap by mouth Once a day NA Pharmacy Information [facility]: [address] [place], [place] [phone] Please take this list to your next doctor s visit. Bring all medications you take, including over the counter medications, herbals and other supplements with you to your doctor s visit. Patients and families are reminded to discard old lists and to update any records with all medication providers or retail pharmacies. Education Materials [facility] Post-operative Instructions PLEASE FOLLOW [facility] POST-OP INSTRUCTIONS GIVEN WATCH FOR SIGNS OF INFECTION: call the office ([phone]) if experencing any of the following: (Usually appears 36-48 hours after surgery) Increased temperature (101 degrees Fahrenheit or higher) Redness or swelling Increased uncontrolled pain Foul odor or drainage Calf discomfort Significant swelling Or if having any chest pain, shortness of breath, or difficulty breathing or swallowing call the office or go the nearest Emergency Room. If you have any questions, please call your doctor at the number listed on your follow up instructions. Form: 338A ([id number]) R: 04/06 Additional Information VACCINATE! IT SAVES LIVES! Members of the community who have not yet received the COVID-19 vaccine and would like to receive it can visit one of [facility] vaccine clinics. There are many vaccine clinic locations within the [facility]. For locations and available times, please visit https://gettheshot.coronavirus.o wio.gov/. It is important to note that some COVID mobile vaccine clinics are held outdoors and may be canceled in rainy or stormy conditions. To learn more about pediatric vaccinations (ages 5-11), we invite you to visit the [facility] webpage. [email or web address] To learn more about the COVID-19 vaccine, we invite you to visit the CDC website for a list of frequently asked questions.https://www.cdc.gov/co ronavirus/2019-ncov/vaccines/faq .html [facility] Patient Portal Access Instructions: Stay connected with your healthcare team and access your personal medical information anytime with the [facility] Patient Portal. Please follow the directions below to create your [facility] account: 1.Access the email account you provided upon registration to the hospital/physician office.2.Look for an invitation email from [facility].3.Open the email and access the invitation link: Accept Invitation to [facility].4.Fill in the required pepper to create your account. To access your account, visit [facility] or scan the QR code above. Click the blue button labeled Access Patient Portal and then log in with the username and password that you created in the steps above. You will be able to view your test results, lab results, a summary of your visits, upcoming appointments and more. There is also a convenient messaging option where you can send secure messages to your provider. In addition, you will have the ability to download any documents or summaries to your computer and/or send the information securely to a physician. Remember that your healthcare information is confidential, so carefully consider who you will allow to register on the [facility] Patient Portal for access to your information. You can also access the [facility] Patient Portal on the [employer] derrick. Simply click on Patient Portal and then log into your account. If you would like to receive a full copy of your medical records, please contact the [facility] Medical Records Department by calling [phone], Friday through Friday between 8 a.m. and 4:30 p.m. HOW TO SAFELY DISPOSE OF PRESCRIPTION MEDICATIONS Please use one of the following methods to safely dispose of your unused medications. 1.Use a drug disposal kit: the drug disposal pouch allows you to safely discard your old and unused drugs. Ask your nurse to give you one when you are discharged.2.Visit a local take-back location: Many local pharmacies and police departments have programs that collect old and unwanted prescription drugs. Call your local pharmacy or go to http://Noemalife.Cirrascale/9Q6Ff8q to find one close to you.3.Make use of household items: Use cat litter or old coffee grounds to dispose medications if other options are not available. Mix your drugs with these household products, seal them in an airtight container and throw it into the garbage. Call [facility]: [phone] to be sure your drugs can be disposed of in this way. Some medicines may require a different approach.4.Never flush your medications down the toilet. IF YOU HAVE BEEN PRESCRIBED AN OPIOID FOR PAIN If you have been prescribed an opioid (such as hydrocodone, oxycodone or morphine), it is critical to understand the possible side effects and risks of opioid pain medications. Even when taken as directed, opioids can have several side effects including: Tolerance, meaning you might need to take more of a medication for the same pain relief. Nausea, vomiting and/or constipation. Sleepiness, dizziness, dry mouth, confusion, depression or itching. Physical dependence, meaning you have withdrawal symptoms when a medication is stopped, can develop within a few days. KNOW YOUR RESPONSIBILITIES It is important to know exactly how much and how often to take the opioid pain medications you are prescribed. Never take opioids in higher amounts or more often than prescribed. Do not combine opioids with alcohol or other drugs that cause drowsiness, such as benzodiazepines, also known as benzos, including diazepam and alprazolam, muscle relaxants or sleep aids. Never sell or share prescription opioids. This is illegal. Store opioids in a secure place and out of reach of others (including children, family, friends and visitors). The last page of this document has been signed and retained as a CHART COPY. Signatures Patient Education Materials 5 - [facility] Post-op Instruction 07/2017 (09445) Medication Leaflets My discharge plan and instructions have been reviewed and explained to me and I,ALISTAIR ARECHIGA understand my current condition and have read and understand these discharge instructions. I have received a written copy of the plan/instructions. If I have questions, I am aware that I should contact my doctor. 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 09-29-2025 Note Date of Service September 29, 2025 Subjective The patient was sitting in bed with daughter present upon examination. Patient denies any chest pain, shortness of breath, dizziness, lightheadedness, nausea or vomiting, or calf pain. No adverse overnight events. Pain has been controlled on medications. Patient did stay an additional night due to some pain with the knee. The pain is much better today. Patient has been doing well with therapy today. Objective Vitals and Measurements T: 37.0 C (Oral) TMIN: 36.6 C (Oral) TMAX: 37.0 C (Oral) HR: 82 (Monitored) RR: 14 BP: 148/59 SpO2: 94% Intake and Output Last 24 hours Intake Medication 30.00 Oral Intake 300.00 Supplement Intake 474.00 Output Stool Count 0.00 Urine Count 9.00 Total Summary Total Intake 804.00 Total Output 0.00 Fluid Balance 804.00 Physical Exam Vital signs stable, afebrile SCD's and KELLY Hose in place bilaterally Patient is able to plantarflex and dorsiflex actively Sensation is intact to saphenous, sural, superficial and deep peroneal, and tibial distribution Dressings are clean dry and intact Negative signs and symptoms of DVT, negative Homans bilaterally Weight Dosing Weight: 77.3 kg (09/27/25) Dosing Weight: 77.3 kg (09/27/25) Medications Medications (25) Active Scheduled: (11) acetaminophen 500 mg Tablet 1,000 mg 2 tab(s), Oral, q8hr amLODIPine 5 mg tablet 5 mg 1 tab(s), Oral, qDay anastrozole 1 mg tablet 1 mg 1 tab(s), Oral, Daily docusate sodium 100 mg Capsule 100 mg 1 cap(s), Oral, BID docusate-senna (Senokot S) 50 mg-8.6 mg Tablet 2 tab(s), Oral, BID famotidine 20 mg tablet 20 mg 1 tab(s), Oral, qDay magnesium hydroxide 8% Suspension 30 mL UD 30 mL, Oral, Daily multivitamin (Myadec) with minerals Therapeutic Multiple Vitamins with Minerals Tablet 1 tab(s), Oral, qDayM pantoprazole 20 mg EC tablet 40 mg 2 tab(s), Oral, qDayAC rivaroxaban 10 mg tablet 10 mg 1 tab(s), Oral, qDay sertraline 50 mg tablet 50 mg 1 tab(s), Oral, Daily Continuous: (1) Lactated Ringers 1,000 mL 1,000 mL, Intravenous, 100 mL/hr PRN: (13) acetaminophen 325 mg Tablet 650 mg 2 tab(s), Oral, q4h albuterol 0.083% Soln UD (2.5mg/3 mL) 2.5 mg 3 mL, Inhalation, Once ALPRAZOLam 0.5 mg tablet 0.5 mg 1 tab(s), Oral, qDay benzocaine-menthol (Cepacol Sore Throat) 15 mg-3.6mg lozenge 1 lozenge(s), Oral, q4h diphenhydramine 25 mg tablet 25 mg 1 tab(s), Oral, q6h diphenhyDRAMINE 50 mg/mL (1 mL) INJ 25 mg 0.5 mL, IV Push, q6h hydralazine 25 mg Tablet 25 mg 1 tab(s), Oral, qDay morphine 2 mg/mL 1 mL syringe 2 mg 1 mL, IV Push, q1h ondansetron 2 mg/ 1 mL 2 mL INJ 4 mg 2 mL, IV Push, q8h oxycodone 5 mg tablet (immediate release) 5 mg 1 tab(s), Oral, q4h oxycodone 5 mg tablet (immediate release) 10 mg 2 tab(s), Oral, q4h prochlorperazine 10 mg/2 mL vial 5 mg 1 mL, IV Push, q6h sodium biphosphate-sodium phosphate 19 gm-7 gm Enema 133 mL, Rectal, qDay Lab Results 09/28 05:19 WBC: 10.5 Hgb: 11.2 L Hct: 33.9 L Platelet: 309 Neutrophil %: 80.1 H Glucose Level: 131 H Sodium Level: 140 Potassium Level: 3.8 BUN: 16 Creatinine Lvl (s): 1.03 H EKG No qualifying data available. Assessment/Plan Breast CA Hypertension Mild renal insufficiency Osteoarthritis 1. Status post robotic assisted left total knee arthroplasty postop day #2 2. Continue pain medications: Tylenol and oxycodone. We are holding off of nonsteroidal anti-inflammatory due to the anticoagulation. Once finished with the Xarelto will consider placing patient on a nonsteroidal anti-inflammatory at the 2-week follow-up. 3. DVT prophylaxis: Due to patient currently on hormone from breast cancer patient will be placed on Xarelto 10 mg 1 tablet daily for 12 days. After 12 days she will then use aspirin 81 mg twice daily for an additional 2 weeks for DVT prophylaxis. She will continue with the KELLY hose. She denies past history of DVT or pulmonary embolism 4. Physical therapy: Weightbearing as tolerated with walker. Patient is having increased pain and I do appreciate recommendations from therapy for safe and appropriate discharge planning. 5. Encouraged incentive spirometry 6. Continue postoperative medical management per medicine: Kidney function improved from preoperative lab work. 7. Postoperative constipation: Discussed with the patient to continue stool softener until first bowel movement. After first bowel movement patient can then take as needed. They were also instructed that if they are not able to have a bowel movement within 3 days they are to contact our office for change of medication. Patient voiced understanding. 8. Disposition: Patient is doing well today. Medicine is signed off of the patient. Her pain has been better controlled today. Plan will be for discharge home. Prescriptions have been E scribed yesterday. She will follow-up per postoperative instructions. She has outpatient physical therapy established for tomorrow. Patient has not had a bowel movement but has been passing gas and feels like she will have a bowel movement very soon. She was instructed to contact our office tomorrow if no bowel movement. She voiced understanding. Upon discharge she will call our office with any concerns or questions. I have reviewed the [place] Automated Rx Reporting System (OARRS) report for this patient for refill pattern and other prescriber involvement as part of the appropriate surveillance for the provision of acute and chronic controlled medications. The report was requested and reviewed on the date of this entry, and was considered in the prescribing process This dictation was created using voice recognition software. Phonetic and/or grammatical errors may exist. Status post total left knee replacement Digitally Signed by KUNAL CONTRERAS PA-C on 09/29/2025 02:[address] [facility] 09-28-2025 Note Date of Service 09/28/2025 Reason for Consultation Medical management Referring Physician Dr. Carlisle History of Present Illness 79-year-old female with past medical history significant for breast cancer s/p left partial mastectomy, GERD, HLD, vertigo, MILDRED, hypertension, depression. Pt is being seen in consultation for medical management of the above. Patient presented to [facility] for elective left total knee arthroplasty by Dr. Carlisle. Preoperative labs reviewed. Creatinine 1.23. Overnight patient remained afebrile and hemodynamically stable with adequate oxygen saturations on room air. Labs reviewed, H&H stable. Preoperative creatinine was 1.23 on 08/29. Today this is improved at 1.03 with an eGFR of 56. On exam today, pt denies any fever or chills. No headache or dizziness. Denies chest pain, palpitations. No cough, dyspnea, sputum production. Denies N/V/D/C. No melena/hematochezia. No dysuria or hematuria. No new paresthesias. Pain not well-controlled. Review of Systems See HPI for specific ROS. All other systems reviewed and negative. Physical Exam Vitals and Measurements T: 36.5 C (Oral) TMIN: 36.3 C (Oral) TMAX: 36.8 C (Oral) HR: 62 RR: 18 BP: 145/66 SpO2: 95% Weight Dosing Weight: 77.3 kg (09/27/25) Dosing Weight: 77.3 kg (09/27/25) GEN: Appears chronically ill EYES: No conjunctival erythema, drainage. EOMI EARS: Hearing grossly intact. NOSE: No nasal discharge. THROAT: Oral cavity and pharynx pink and moist. CHEST: Normal S1 and S2. Rhythm is regular. Clear to auscultation, without rales, rhonchi, wheezing. ABD: Positive bowel sounds x 4 quads. Soft, nondistended, nontender. EXT: No significant deformity or joint abnormality. Peripheral pulses intact. NEURO: Sensation grossly intact SKIN: Surgical dressing in place PSYCH: The mental examination revealed the patient was alert and oriented x 4 Lab Results 09/28 05:19 WBC: 10.5 Hgb: 11.2 L Hct: 33.9 L Platelet: 309 Neutrophil %: 80.1 H Glucose Level: 131 H Sodium Level: 140 Potassium Level: 3.8 BUN: 16 Creatinine Lvl (s): 1.03 H Assessment/Plan 1. Osteoarthritis 2. Hypertension 3. Mild renal insufficiency Osteoarthritis s/p left total knee arthroplasty. Management per primary team. Pain not well controlled. Patient will be staying an additional day to better optimize her pain control. HTN- SBP goal 140 or less. Continue home antihypertensives. Will sign off. Mild renal insufficiency- Improved from pre-op labs. DVT prophylaxis: SCDs Labs, diagnostics, and progress notes reviewed as noted in HPI Code Status: Full code Plan of care discussed with patient. All questions answered. Patient verbalizes understanding is agreeable to plan of care. Thank you for requesting our participation in the care of your patient. We will continue to follow during their hospitalization. This dictation was performed using voice recognition software and may include grammatical and/or spelling errors. Procedure/Surgical History Knee arthroplasty: 09/27/25 Carpal tunnel Lumpectomy Tubal ligation Medications Inpatient albuterol 2.5 mg/3 mL (0.083%) inhalation solution, 2.5 mg= 3 mL, Inhalation, Once, PRN ALPRAZolam, 0.5 mg= 1 tab(s), Oral, qDay, PRN amLODIPine, 5 mg= 1 tab(s), Oral, qDay anastrozole, 1 mg= 1 tab(s), Oral, Daily Benadryl, 25 mg= 1 tab(s), Oral, q6h, PRN Benadryl, 25 mg= 0.5 mL, IV Push, q6h, PRN Cerovite Advanced Formula, 1 tab(s), Oral, qDayM Colace, 100 mg= 1 cap(s), Oral, BID Fleet Enema, 133 mL, Rectal, qDay, PRN hydrALAZINE, 25 mg= 1 tab(s), Oral, qDay, PRN LR 1,000 mL, 1000 mL, Intravenous Milk of Magnesia, 30 mL, Oral, Daily morphine, 2 mg= 1 mL, IV Push, q1h, PRN oxyCODONE 5 mg oral tablet ( IMMEDIATE release ), 5 mg= 1 tab(s), Oral, q4h, PRN oxyCODONE 5 mg oral tablet ( IMMEDIATE release ), 10 mg= 2 tab(s), Oral, q4h, PRN pantoprazole, 40 mg= 2 tab(s), Oral, qDayAC Pepcid, 20 mg= 1 tab(s), Oral, qDay prochlorperazine, 5 mg= 1 mL, IV Push, q6h, PRN Senokot S, 2 tab(s), Oral, BID Tylenol, 1000 mg= 2 tab(s), Oral, q8hr Tylenol, 650 mg= 2 tab(s), Oral, q4h, PRN Xarelto, 10 mg= 1 tab(s), Oral, qDay Zofran, 4 mg= 2 mL, IV Push, q8h Zofran, 4 mg= 2 mL, IV Push, q8h, PRN Zoloft, 50 mg= 1 tab(s), Oral, Daily Home ALPRAZolam 0.5 mg oral tablet, 0.5 mg= 1 tab(s), Oral, qDay, PRN amLODIPine 5 mg oral tablet, 5 mg= 1 tab(s), Oral, qDay anastrozole 1 mg oral tablet, 1 mg= 1 tab(s), Oral, Daily boric acid 600 mg vaginal kit, 1 supp, Vaginal, Friday calcium (as carbonate and lactate)-vitamin D 200 mg-6.25 mcg oral tablet, 1 tab(s), Oral, qDay fenofibric acid 135 mg oral delayed release capsule, 135 mg= 1 cap(s), Oral, Daily glucosamine 500 mg oral capsule, 500 mg= 1 cap(s), Oral, qDay hydrALAZINE 25 mg oral tablet, 25 mg= 1 tab(s), Oral, qDay, PRN meclizine 25 mg oral tablet, 25 mg= 1 tab(s), Oral, TID, PRN methenamine hippurate 1 g oral tablet, 1 gram(s)= 1 tab(s), Oral, BID nystatin 100,000 units/g topical ointment, 1 derrick, Topical, BID, PRN oxyCODONE 5 mg oral tablet ( IMMEDIATE release ), See Instructions, PRN pantoprazole 40 mg oral enteric coated tablet, 40 mg= 1 tab(s), Oral, qDayAC Senokot S, 2 tab(s), Oral, BID Tylenol, 1000 mg= 2 tab(s), Oral, TID Vitamin C 500 mg oral tablet, chewable, 500 mg= 1 tab(s), Chewed, Daily Vitamin D3, C100 mcg, Oral, Daily vitamin E 45 mg oral capsule, 45 mg= 1 cap(s), Oral, qDay Xarelto 10 mg oral tablet, 10 mg= 1 tab(s), Oral, qDay Zoloft 50 mg oral tablet, 50 mg= 1 tab(s), Oral, Daily Allergies Augmentin Rash Bactrim Rash sulfa drugs Rash Social History Alcohol Use: Never., 08/29/2025 Home/Environment Living situation: Home/Independent. Domestic Concerns: None. Lives In: Split level home, 2nd floor bedroom, 1st floor bathroom. Current Home Treatments Blood Pressure monitoring, walker, toilet riser, shower chair, cane. Marital Status: Unmarried., 09/27/2025 Nutrition/Health Type of diet: Regular. Appetite Good. Eating Difficulties None. Enteral Feedings No. TPN Feedings No. Skin Breakdown Yes., 09/27/2025 Substance Abuse Use: Never., 08/29/2025 Tobacco Nicotine Use: Never (less than 100 in lifetime)., 08/29/2025 Family History Cardiovascular disease: Father. Hypertension: Mother. Health Status Family Member(s) Immunizations SARS-CoV-2 (COVID-19) mRNA-1273 vaccine: 0.5 unknown unit (10/20/21) SARS-CoV-2 (COVID-19) mRNA-1273 vaccine: 0.5 unknown unit (04/06/21) SARS-CoV-2 (COVID-19) mRNA-1273 vaccine: 0.5 unknown unit (03/10/21) Digitally Signed by BRITTANY ARREOLA on 09/28/2025 01:[address] [facility] 09-28-2025 Hospital Discharg e instructions Patient Education 09/28/2025 10:15:55 5 - [facility] Post-op Instruction 07/2017 (59083) [facility] Post-operative Instructions PLEASE FOLLOW [facility] POST-OP INSTRUCTIONS GIVEN WATCH FOR SIGNS OF INFECTION: call the office ([phone]) if experencing any of the following: (Usually appears 36-48 hours after surgery) Increased temperature (101 degrees Fahrenheit or higher) Redness or swelling Increased uncontrolled pain Foul odor or drainage Calf discomfort Significant swelling Or if having any chest pain, shortness of breath, or difficulty breathing or swallowing call the office or go the nearest Emergency Room. If you have any questions, please call your doctor at the number listed on your follow up instructions. Form: 338A (95773) R: 04/06 Follow Up Care 08/16/2025 10:05:01 With:Tesaris Address: [address] [place] [phone] When:09/30/2025 10:00:00 Comments:This is your first physical therapy appointment. Follow-up as scheduled. With:AKIKO HENRY PA-C, Orthopedic Address: [address] [place] [address], [address] [facility], [facility] [place] [address]- [phone] When:10/11/2025 10:30:00 Comments:This is your post-op appointment. Follow-up as scheduled. [facility] 09-28-2025 Note Date of Service September 28, 2025 Subjective The patient was sitting in bed upon examination. Patient denies any chest pain, shortness of breath, dizziness, lightheadedness, nausea or vomiting, or calf pain. No adverse overnight events. Patient has been complaining of increased pain which can reach 10/10. She is on oral and IV pain medications. Patient states the oxycodone is helpful but she has increased pain with walking. Patient lives home alone and will have someone tomorrow available with her. Objective Vitals and Measurements T: 36.5 C (Oral) TMIN: 36 C (Temporal Artery) TMAX: 36.8 C (Oral) HR: 62 RR: 18 BP: 145/66 SpO2: 95% HT: 155 cm WT: 77.3 kg BMI: 32.17 Intake and Output Last 24 hours Intake Medication 1613.20 Administration Information 1097.60 Oral Intake 250.00 Supplement Intake 237.00 Output Intra-Op EBL 25.00 Urine Count 2.00 Diaper Count 1.00 Total Summary Total Intake 3197.80 Total Output 25.00 Fluid Balance 3172.80 Physical Exam Vital signs stable, afebrile SCD's and KELLY Hose in place bilaterally Patient is able to plantarflex and dorsiflex actively Sensation is intact to saphenous, sural, superficial and deep peroneal, and tibial distribution Dressings are clean dry and intact Negative signs and symptoms of DVT, negative Homans bilaterally Weight Dosing Weight: 77.3 kg (09/27/25) Dosing Weight: 77.3 kg (09/27/25) Medications Medications (29) Active Scheduled: (16) acetaminophen 500 mg Tablet 1,000 mg 2 tab(s), Oral, q8hr amLODIPine 5 mg tablet 5 mg 1 tab(s), Oral, qDay anastrozole 1 mg tablet 1 mg 1 tab(s), Oral, Daily dexamethasone 10 mg/mL (1mL) SDV 10 mg 1 mL, IV Push, AsDirected docusate sodium 100 mg Capsule 100 mg 1 cap(s), Oral, BID docusate-senna (Senokot S) 50 mg-8.6 mg Tablet 2 tab(s), Oral, BID famotidine 20 mg tablet 20 mg 1 tab(s), Oral, qDay Lactated Ringers Injection 1000 mL * Bolus * 1,000 mL, IV Bolus, PREOP pharm magnesium hydroxide 8% Suspension 30 mL UD 30 mL, Oral, Daily multivitamin (Myadec) with minerals Therapeutic Multiple Vitamins with Minerals Tablet 1 tab(s), Oral, qDayM ondansetron 2 mg/ 1 mL 2 mL INJ 4 mg 2 mL, IV Push, q8h pantoprazole 20 mg EC tablet 40 mg 2 tab(s), Oral, qDayAC rivaroxaban 10 mg tablet 10 mg 1 tab(s), Oral, qDay sertraline 50 mg tablet 50 mg 1 tab(s), Oral, Daily tranexamic acid PMX 1 gram(s) 100 mL, IV Piggyback, AsDirected tranexamic acid PMX 1 gram(s) 100 mL, IV Piggyback, AsDirected Continuous: (1) Lactated Ringers 1,000 mL 1,000 mL, Intravenous, 100 mL/hr PRN: (12) acetaminophen 325 mg Tablet 650 mg 2 tab(s), Oral, q4h albuterol 0.083% Soln UD (2.5mg/3 mL) 2.5 mg 3 mL, Inhalation, Once ALPRAZOLam 0.5 mg tablet 0.5 mg 1 tab(s), Oral, qDay diphenhydramine 25 mg tablet 25 mg 1 tab(s), Oral, q6h diphenhyDRAMINE 50 mg/mL (1 mL) INJ 25 mg 0.5 mL, IV Push, q6h hydralazine 25 mg Tablet 25 mg 1 tab(s), Oral, qDay morphine 2 mg/mL 1 mL syringe 2 mg 1 mL, IV Push, q1h ondansetron 2 mg/ 1 mL 2 mL INJ 4 mg 2 mL, IV Push, q8h oxycodone 5 mg tablet (immediate release) 5 mg 1 tab(s), Oral, q4h oxycodone 5 mg tablet (immediate release) 10 mg 2 tab(s), Oral, q4h prochlorperazine 10 mg/2 mL vial 5 mg 1 mL, IV Push, q6h sodium biphosphate-sodium phosphate 19 gm-7 gm Enema 133 mL, Rectal, qDay Lab Results 09/28 05:19 WBC: 10.5 Hgb: 11.2 L Hct: 33.9 L Platelet: 309 Neutrophil %: 80.1 H Glucose Level: 131 H Sodium Level: 140 Potassium Level: 3.8 BUN: 16 Creatinine Lvl (s): 1.03 H EKG No qualifying data available. Assessment/Plan Hypertension Osteoarthritis 1. Status post robotic assisted left total knee arthroplasty postop day #1 2. Continue pain medications: Tylenol and oxycodone. We are holding off of nonsteroidal anti-inflammatory due to the anticoagulation. Once finished with the Xarelto will consider placing patient on a nonsteroidal anti-inflammatory at the 2-week follow-up. 3. DVT prophylaxis: Due to patient currently on hormone from breast cancer patient will be placed on Xarelto 10 mg 1 tablet daily for 12 days. After 12 days she will then use aspirin 81 mg twice daily for an additional 2 weeks for DVT prophylaxis. She will continue with the KELLY hose. She denies past history of DVT or pulmonary embolism 4. Physical therapy: Weightbearing as tolerated with walker. Patient is having increased pain and I do appreciate recommendations from therapy for safe and appropriate discharge planning. 5. H & H: 11.2/33.9, asymptomatic. Postoperative drop in hemoglobin from surgery without intraoperative complications. At this time there is no need for treatment. 6. Encouraged incentive spirometry 7. Continue postoperative medical management per medicine: Kidney function improved from preoperative lab work. 8. Postoperative constipation: Discussed with the patient to continue stool softener until first bowel movement. After first bowel movement patient can then take as needed. They were also instructed that if they are not able to have a bowel movement within 3 days they are to contact our office for change of medication. Patient voiced understanding. 9. Disposition: I would like recommendations from physical therapy today for safe and appropriate discharge planning. Patient is having increased pain in which she is requiring IV and oral medications. Pain regimen may need to be adjusted based on her recovery. We will see how patient does today with regards to therapy. I will send patient's medications to her primary pharmacy at [facility] in [facility]. Patient has the extra strength Tylenol and senna at home. She has outpatient physical therapy established in which she will be using [employer] transportation. She will follow-up per postoperative instructions. Discharge will be based on how her pain and how she does with physical therapy. Patient may require additional night stay. I have reviewed the [place] Automated Rx Reporting System (OARRS) report for this patient for refill pattern and other prescriber involvement as part of the appropriate surveillance for the provision of acute and chronic controlled medications. The report was requested and reviewed on the date of this entry, and was considered in the prescribing process This dictation was created using voice recognition software. Phonetic and/or grammatical errors may exist. Digitally Signed by KUNAL CONTRERAS PA-C on 09/28/2025 10:[address] [facility] 09-28-2025 Pastoral care Progress note Pastoral Care Note Entered On: 09/28/2025 9:30 EDT Performed On: 09/28/2025 9:25 EDT by Kunal Calzada Pastoral Care Spiritual Care Visit Initiated by : Hospital Superintendent Type of Pastoral Visit : Initial visit Spiritual Care Reason for Visit : General Spiritual Assessment : Faithful, Positive Image of God, Good Supriya Group Support Spiritual Care Emotional Assessment : Thoughtful/Reflective, Pessimistic, Anxious/Worried, Tearful Spiritual Care Intervention : Active listening, Supportive presence, Explore Spiritual Needs, Explore Emotional Needs, Prayer with Patient/Family, Grief Work Spiritual Outcomes : Expresses Supriya Spiritual Plan of Care : Visit as Requested Pastoral Care Comments : patient has met this head mechanic before through her ; pt is open about her pain level and concern for her recovery; pt was this year and dealt with other health concerns; pt is tearful as this is discussed; listening and calming words given; pt is spiritual and this is tapped into for her support; presence and prayer given Pastoral Care Visit Length : 15 minute(s) Kunal Calzada - 09/28/2025 9:25 EDT Digitally Signed by Kunal Calzada on 09/28/2025 09:[address] [facility] 09-27-2025 Note Exam Date Time Procedure Performing Provider Status 09/27/25 11:54 AM XR Knee 1 or 2 Views RADHA Campos MD; Auth (Verified) [id number] ORIGINAL EXAMINATION: TWO XRAY VIEWS OF THE LEFT KNEE 09/27/2025 11:54 am COMPARISON: None. HISTORY: ORDERING SYSTEM PROVIDED HISTORY: Reason for Exam: Status Post Arthroplasty FINDINGS: Surgical skin bc. Status post left knee arthroplasty, hardware is aligned and intact. Immediate expected postop changes are present including soft tissue swelling subcutaneous and intra-articular gas and joint fluid. No acute fracture. IMPRESSION: Immediate expected postop changes status post left knee arthroplasty. Interpreted by: Kiya Liu Preliminary Report By: Kiya Liu Electronically signed By Kiya Liu Dictated Date: 09/27/2025 12:09:13 PM Prelim Date: 09/27/2025 12:09:50 PM Sign Date: 09/27/2025 12:09:50 PM Ordering Provider: VERONICA CARLISLE RP 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 Assessment Postanesthesia assessment Vitals: Vital signs from flowsheet : Vital Signs 09/27/2025 11:20 EDT Heart Rate Monitored 69 bpm bpm Respiratory Rate - Anes 10 br/min br/min Systolic Blood Pressure Non-Invasive 92 mmHg mmHg Diastolic Blood Pressure Non-Invasive 49 mmHg mmHg 09/27/2025 11:15 EDT Temperature (Route Not Specified) 36 DegC DegC Heart Rate Monitored 67 bpm bpm Respiratory Rate - Anes 10 br/min br/min Systolic Blood Pressure Non-Invasive 90 mmHg mmHg Diastolic Blood Pressure Non-Invasive 48 mmHg mmHg 09/27/2025 11:10 EDT Heart Rate Monitored 66 bpm bpm Respiratory Rate - Anes 11 br/min br/min Systolic Blood Pressure Non-Invasive 88 mmHg mmHg Diastolic Blood Pressure Non-Invasive 49 mmHg mmHg 09/27/2025 11:05 EDT Heart Rate Monitored 63 bpm bpm Respiratory Rate - Anes 11 br/min br/min Systolic Blood Pressure Non-Invasive 86 mmHg mmHg Diastolic Blood Pressure Non-Invasive 51 mmHg mmHg 09/27/2025 11:00 EDT Temperature (Route Not Specified) 36 DegC DegC Heart Rate Monitored 62 bpm bpm Respiratory Rate - Anes 11 br/min br/min Systolic Blood Pressure Non-Invasive 95 mmHg mmHg Diastolic Blood Pressure Non-Invasive 56 mmHg mmHg 09/27/2025 10:55 EDT Heart Rate Monitored 61 bpm bpm Respiratory Rate - Anes 21 br/min br/min Systolic Blood Pressure Non-Invasive 88 mmHg mmHg Diastolic Blood Pressure Non-Invasive 39 mmHg mmHg 09/27/2025 10:52 EDT Systolic Blood Pressure Non-Invasive 91 mmHg mmHg Diastolic Blood Pressure Non-Invasive 52 mmHg mmHg 09/27/2025 10:50 EDT Heart Rate Monitored 62 bpm bpm Respiratory Rate - Anes 10 br/min br/min Systolic Blood Pressure Non-Invasive 103 mmHg mmHg Diastolic Blood Pressure Non-Invasive 56 mmHg mmHg 09/27/2025 10:45 EDT Temperature (Route Not Specified) 36 DegC DegC Heart Rate Monitored 65 bpm bpm Respiratory Rate - Anes 11 br/min br/min Systolic Blood Pressure Non-Invasive 103 mmHg mmHg Diastolic Blood Pressure Non-Invasive 57 mmHg mmHg 09/27/2025 10:40 EDT Heart Rate Monitored 77 bpm bpm Respiratory Rate - Anes 10 br/min br/min Systolic Blood Pressure Non-Invasive 108 mmHg mmHg Diastolic Blood Pressure Non-Invasive 60 mmHg mmHg 09/27/2025 10:35 EDT Heart Rate Monitored 73 bpm bpm Respiratory Rate - Anes 4 br/min br/min Systolic Blood Pressure Non-Invasive 122 mmHg mmHg Diastolic Blood Pressure Non-Invasive 66 mmHg mmHg 09/27/2025 10:30 EDT Temperature (Route Not Specified) 36 DegC DegC Heart Rate Monitored 75 bpm bpm Respiratory Rate - Anes 13 br/min br/min Systolic Blood Pressure Non-Invasive 122 mmHg mmHg Diastolic Blood Pressure Non-Invasive 68 mmHg mmHg 09/27/2025 10:25 EDT Heart Rate Monitored 74 bpm bpm Respiratory Rate - Anes 11 br/min br/min Systolic Blood Pressure Non-Invasive 112 mmHg mmHg Diastolic Blood Pressure Non-Invasive 65 mmHg mmHg 09/27/2025 10:20 EDT Heart Rate Monitored 74 bpm bpm Respiratory Rate - Anes 4 br/min br/min Systolic Blood Pressure Non-Invasive 102 mmHg mmHg Diastolic Blood Pressure Non-Invasive 68 mmHg mmHg 09/27/2025 10:15 EDT Heart Rate Monitored 74 bpm bpm Respiratory Rate - Anes 12 br/min br/min Systolic Blood Pressure Non-Invasive 96 mmHg mmHg Diastolic Blood Pressure Non-Invasive 59 mmHg mmHg 09/27/2025 10:10 EDT Heart Rate Monitored 71 bpm bpm Respiratory Rate - Anes 13 br/min br/min Systolic Blood Pressure Non-Invasive 95 mmHg mmHg Diastolic Blood Pressure Non-Invasive 55 mmHg mmHg 09/27/2025 10:08 EDT Systolic Blood Pressure Non-Invasive 121 mmHg mmHg Diastolic Blood Pressure Non-Invasive 83 mmHg mmHg 09/27/2025 10:05 EDT Respiratory Rate - Anes 0 br/min br/min 09/27/2025 10:00 EDT Respiratory Rate - Anes 0 br/min br/min 09/27/2025 7:43 EDT Temperature Temporal Artery 36.6 DegC Peripheral Pulse Rate 75 bpm Respiratory Rate 18 br/min Systolic Blood Pressure Non-Invasive 160 mmHg HI Diastolic Blood Pressure Non-Invasive 85 mmHg , Measurements from flowsheet . Mental status: alert & oriented x 4. Respiratory function: respirations are non-labored. Respiratory support: none. CV function: Normal rate. Cardiovascular support: none. Pain: Reviewed Results: Pain assessment from flowsheet : Results(Date Range: 09/27/2024 0:00 EDT - 09/27/2025 11:26 EDT) . Nausea status: see nursing documentation of medications. Postoperative hydration status: within normal limits. Digitally Signed by RUSLAN PRIDE on 09/27/2025 11:[address] [facility]10-28-2025 Anesthesiology Consult note Patient: ALISTAIR ARECHIGA Age: 79 years Sex: Female : 1945 Associated Diagnoses: None Author: RUSLAN PRIDE Preoperative Information Time of last food or liquid consumption: 09/27/2025 00:00:00 Anesthesia history Patient's history: negative. Family's history: negative. Health Status Allergies: Allergic Reactions (Selected) Severity Not Documented Augmentin- Rash. Bactrim- Rash. Sulfa drugs- Rash., Allergies (3) ActiveSeverityReaction AugmentinRash BactrimRash sulfa drugsRash Current medications: (Selected) Inpatient Medications Ordered Bolus LR 1000 mL: 1,000 mL, IV Bolus, PREOP pharm Decadron: 10 mg, 1 mL, IV Push, AsDirected LR 1,000 mL: 20 mL/hr, Intravenous, Stop: 09/27/25 23:59:00 EDT Naropin 25 mg + morphine 2.5 mg + EPINEPHrine 0.3 m mg, 5 mL, 0 mL/hr, Other, PREOP pharm Naropin 25 mg + morphine 2.5 mg + EPINEPHrine 0.3 m mg, 5 mL, 0 mL/hr, Other, PREOP pharm tranexamic acid 1 g / 100 mL 0.7% NaCl PMX: 1 gram(s), 100 mL, 300 mL/hr, IV Piggyback, AsDirected tranexamic acid 1 g / 100 mL 0.7% NaCl PMX: 1 gram(s), 100 mL, 300 mL/hr, IV Piggyback, AsDirected Documented Medications Documented ALPRAZolam 0.5 mg oral tablet: 0.5 mg, 1 tab(s), Oral, TID, PRN: for anxiety, 0 Refill(s) Vitamin C 500 mg oral tablet, chewable: 500 mg, 1 tab(s), Chewed, Daily, 30 tab(s), 0 Refill(s) Vitamin D3: C100 mcg, Oral, Daily, 90 tab(s), 0 Refill(s) Zoloft 50 mg oral tablet: 50 mg, 1 tab(s), Oral, Daily, 0 Refill(s) amLODIPine 5 mg oral tablet: 5 mg, 1 tab(s), Oral, qDay, 30 tab(s), 0 Refill(s) anastrozole 1 mg oral tablet: 1 mg, 1 tab(s), Oral, Daily, 30 tab(s), 0 Refill(s) boric acid 600 mg vaginal kit: 1 supp, Vaginal, qHS, for 10 day(s), 1 EA, 0 Refill(s) calcium (as carbonate and lactate)-vitamin D 200 mg-6.25 mcg oral tablet: 1 tab(s), Oral, qDay, 100tab(s), 0 Refill(s) fenofibric acid 135 mg oral delayed release capsule: 135 mg, 1 cap(s), Oral, Daily, 0 Refill(s) glucosamine 500 mg oral capsule: 500 mg, 1 cap(s), Oral, qDay, 30 cap(s), 0 Refill(s) hydrALAZINE 25 mg oral tablet: 25 mg, 1 tab(s), Oral, qDay, Take with food, 90 tab(s), 0 Refill(s) meclizine 25 mg oral tablet: 25 mg, 1 tab(s), Oral, TID, PRN: as needed for dizziness, 30 tab(s), 0Refill(s) methenamine hippurate 1 g oral tablet: 1 gram(s), 1 tab(s), Oral, BID, for 5 day(s), 10 tab(s), 0 Refill(s) nystatin 100,000 units/g topical ointment: 1 derrick, Topical, BID, 15 gram(s), 0 Refill(s) pantoprazole 40 mg oral enteric coated tablet: 40 mg, 1 tab(s), Oral, qDayAC, 0 Refill(s) vitamin E 45 mg oral capsule: 45 mg, 1 cap(s), Oral, qDay, 100 cap(s), 0 Refill(s), Medications (7) Active Scheduled: (6) dexamethasone 10 mg/mL (1mL) SDV 10 mg 1 mL, IV Push, AsDirected Lactated Ringers Injection 1000 mL * Bolus * 1,000 mL, IV Bolus, PREOP pharm ropivacaine 25 mg + morphine 2.5 mg + epinephrine 0.3 mg 25 mg 5 mL, Other, PREOP pharm ropivacaine 25 mg + morphine 2.5 mg + epinephrine 0.3 mg 25 mg 5 mL, Other, PREOP pharm tranexamic acid PMX 1 gram(s) 100 mL, IV Piggyback, AsDirected tranexamic acid PMX 1 gram(s) 100 mL, IV Piggyback, AsDirected Continuous: (1) Lactated Ringers 1,000 mL 1,000 mL, Intravenous, 20 mL/hr PRN: (0) Problem list: No qualifying data available Histories Past Medical History: No active or resolved past medical history items have been selected or recorded. Family History: Hypertension Mother Cardiovascular disease Father Procedure history: No active procedure history items have been selected or recorded. Social History: Social & Psychosocial Habits Alcohol 09/27/2025 Use: Never Substance Abuse 09/27/2025 Use: Never Tobacco 09/27/2025 Tobacco Use: Never (less than 100 in l Home/Environment 09/27/2025 Domestic Concerns None Lives In Split level home Marital Status of Patient if Patient Independent Adult: Unmarried Nutrition/Health 09/27/2025 Type of diet: Regular Eating Difficulties None Physical Examination Vital Signs 09/27/2025 10:25 EDT Heart Rate Monitored 74 bpm bpm Respiratory Rate - Anes 11 br/min br/min Systolic Blood Pressure Non-Invasive 112 mmHg mmHg Diastolic Blood Pressure Non-Invasive 65 mmHg mmHg 09/27/2025 10:20 EDT Heart Rate Monitored 74 bpm bpm Respiratory Rate - Anes 4 br/min br/min Systolic Blood Pressure Non-Invasive 102 mmHg mmHg Diastolic Blood Pressure Non-Invasive 68 mmHg mmHg 09/27/2025 10:15 EDT Heart Rate Monitored 74 bpm bpm Respiratory Rate - Anes 12 br/min br/min Systolic Blood Pressure Non-Invasive 96 mmHg mmHg Diastolic Blood Pressure Non-Invasive 59 mmHg mmHg 09/27/2025 10:10 EDT Heart Rate Monitored 71 bpm bpm Respiratory Rate - Anes 13 br/min br/min Systolic Blood Pressure Non-Invasive 95 mmHg mmHg Diastolic Blood Pressure Non-Invasive 55 mmHg mmHg 09/27/2025 10:08 EDT Systolic Blood Pressure Non-Invasive 121 mmHg mmHg Diastolic Blood Pressure Non-Invasive 83 mmHg mmHg 09/27/2025 10:05 EDT Respiratory Rate - Anes 0 br/min br/min 09/27/2025 10:00 EDT Respiratory Rate - Anes 0 br/min br/min 09/27/2025 7:43 EDT Temperature Temporal Artery 36.6 DegC Peripheral Pulse Rate 75 bpm Respiratory Rate 18 br/min Systolic Blood Pressure Non-Invasive 160 mmHg HI Diastolic Blood Pressure Non-Invasive 85 mmHg Vital Signs (last 24 hrs) Last Charted Temp Knqwlsbu18.6 DegC (SEP 27 07:43) Heart Rate [id number] bpm (SEP 27 10:25) [id number] mmHg (SEP 27 10:25) DBP65 mmHg (SEP 27 10:25) Measurements from flowsheet : Measurements 09/27/2025 7:43 EDT Height 155 cm Height in inches 61 inch(es) Admission Weight 77.3 kg Weight Lbs 170.1 lb [place] Body Weight 47.85 kg Admission Body Mass Index 32.17 m2 Pain assessment: Pain Assessment 09/27/2025 7:43 EDT Primary Pain Location Knee Primary Pain Laterality Left Primary Pain Intensity 2 Pain Scale Type 0-10 Pain scale . General: Alert and oriented. Airway: Normal temporomandibular joint mobility, Normal neck range of motion. Mallampati classification: III (soft palate, base of uvula visible). Dentition Evaluation: Denies loose/chipped teeth. Respiratory: Respirations are non-labored. Cardiovascular: Normal rate. Neurologic: Alert, Oriented. Review / Management Results review: No qualifying data available , Lab results 09/27/2025 10:35 EDT SN - Proc - Anesthesia Type Spinal SN - Proc - Anesthesia Type Spinal, Regional, Local SN - Proc - Actual Procedure ROBOTIC ASSISTED LEFT TOTAL KNEE ARTHROPLASTY SN - Proc - Actual Procedure ROBOTIC ASSISTED LEFT TOTAL KNEE ARTHROPLASTY 09/27/2025 10:35 EDT SN - Irl - Irrigant Normal Saline SN - Irl - Additive IRRIGATION CHG 0.05% IRRISEPT [id number] SN - Irl - Additive BETADINE 09/27/2025 10:34 EDT SN - SP - Prep Agents Chloraprep SN - SP - HR - Method N/A 09/27/2025 10:33 EDT SN - PP - Body Position Supine Standard Intra-op 09/27/2025 10:32 EDT SN - PTCare - Anti-thromboembolism Radhika Elastic Compression Stockings SN - PTCare - Anti-thromboembolism Radhika Sequential Compression Device (SCD) 09/27/2025 10:31 EDT SN - Assess - LOC Alert, Awake SN - Assess - Orientation Oriented X 3 SN - Assess - Post-op Skin Integrity Intact/Dry 09/27/2025 10:31 EDT SN - PA - Route of Administration Local 09/27/2025 10:31 EDT SN - GCD - ASA Class 3 SN - GCD - Post-operative Diagnosis UNILATERAL PRIMARY OSTEOARTHRITIS LEFT KNEE SN - GCD - Case Level Level 6 09/27/2025 10:29 EDT SN - Cul - Culture Type No Specimen per Surgeon 09/27/2025 10:29 EDT SN - TDC - Device Type 16 FR VOGEL CATHETER SN - TDC - Location BLADDER SN - TDC - DC'd at End of Case Yes 09/27/2025 10:28 EDT SN - CTm - Surgery Start 09/27/2025 10:26 09/27/2025 10:28 EDT SN - CAt - Case Attendee SN - CAt - Case Attendee SN - CAt - Case Attendee SN - CAt - Case Attendee SN - CAt - Case Attendee SN - CAt - Case Attendee SN - CAt - Case Attendee SN - CAt - Case Attendee SN - CAt - Case Attendee SN - CAt - Case Attendee SN - CAt - Case Attendee SN - CAt - Case Attendee SN - CAt - Case Attendee SN - CAt - Case Attendee SN - CAt - Role Performed Physician Firm Administrator SN - CAt - Role Performed VOCATIONAL DIRECTOR SN - CAt - Role Performed Casino Cage Manager 1 SN - CAt - Role Performed Scrub 1 SN - CAt - Role Performed Formula Maker 1 SN - CAt - Role Performed Pet Care Technician SN - CAt - Role Performed Pet Care Technician 09/27/2025 10:27 EDT SN - CAt - Case Attendee SN - CAt - Case Attendee SN - CAt - Role Performed Primary Surgeon 09/27/2025 10:26 EDT SN - CTm - Surgery Start Surgery Start 09/27/2025 10:25 EDT Heart Rate Monitored 74 bpm bpm Respiratory Rate - Anes 11 br/min br/min Systolic Blood Pressure Non-Invasive 112 mmHg mmHg Diastolic Blood Pressure Non-Invasive 65 mmHg mmHg Oxygen Saturation 98 % % 09/27/2025 10:21 EDT cefazolin 2 gram(s) gram(s) Sodium Chloride 0.9% 100 mL mL 09/27/2025 10:20 EDT Heart Rate Monitored 74 bpm bpm Respiratory Rate - Anes 4 br/min br/min Systolic Blood Pressure Non-Invasive 102 mmHg mmHg Diastolic Blood Pressure Non-Invasive 68 mmHg mmHg Oxygen Saturation 97 % % 09/27/2025 10:15 EDT Heart Rate Monitored 74 bpm bpm Respiratory Rate - Anes 12 br/min br/min Systolic Blood Pressure Non-Invasive 96 mmHg mmHg Diastolic Blood Pressure Non-Invasive 59 mmHg mmHg Oxygen Saturation 95 % % 09/27/2025 10:10 EDT Heart Rate Monitored 71 bpm bpm Respiratory Rate - Anes 13 br/min br/min Systolic Blood Pressure Non-Invasive 95 mmHg mmHg Diastolic Blood Pressure Non-Invasive 55 mmHg mmHg Oxygen Saturation 99 % % 09/27/2025 10:08 EDT Systolic Blood Pressure Non-Invasive 121 mmHg mmHg Diastolic Blood Pressure Non-Invasive 83 mmHg mmHg 09/27/2025 10:05 EDT Respiratory Rate - Anes 0 br/min br/min 09/27/2025 10:00 EDT Respiratory Rate - Anes 0 br/min br/min 09/27/2025 9:03 EDT Response to Advance Directive Request Unable to obtain 09/27/2025 8:18 EDT SN - Preop - CTm Pt in SDS Room 09/27/2025 7:31 SN - Preop - CTm Pt Ready for OR/Proced 09/27/2025 8:16 09/27/2025 8:12 EDT famotidine 20 mg mg meloxicam 15 mg mg 09/27/2025 8:08 EDT IV Present Present Anesthesia Extension Set Applied Yes CHG Preoperative Wash/Wipe Site specific wipe Preop Nasal Swab Povidone-Iodine citric acid-sodium citrate Not Done: Not Appropriate at this Time (Not Done) 09/27/2025 8:07 EDT Continuous IV Infusions LR Antecubital Right 09/27/2025 20 gauge Peripheral IV Activity: Insert new site Peripheral IV Dressing Condition: Clean, Dry, Intact Peripheral IV Dressing Activity: Applied, Transparent dressing Peripheral IV Line Status/Patency: Continuous infusion Peripheral IV Site Condition: No complications Peripheral IV Equipment: Extension set, PRN Adaptor Peripheral IV Number of Attempts: 1 09/27/2025 7:57 EDT ABO/Rh Interp A POS ABSC Interp (Gel) Negative ABSC 09/27/2025 7:43 EDT Height 155 cm Height in inches 61 inch(es) Admission Weight 77.3 kg Weight Lbs 170.1 lb [place] Body Weight 47.85 kg Admission Body Mass Index 32.17 m2 Temperature Temporal Artery 36.6 DegC Peripheral Pulse Rate 75 bpm Respiratory Rate 18 br/min Systolic Blood Pressure Non-Invasive 160 mmHg HI Diastolic Blood Pressure Non-Invasive 85 mmHg Primary Pain Location Knee Primary Pain Laterality Left Primary Pain Intensity 2 Pain Scale Type 0-10 Pain scale Heart Rhythm Regular Dorsalis Pedis Pulse, Left 1+ Thready Dorsalis Pedis Pulse, Right 1+ Thready Respirations Unlabored Respiratory Pattern Regular Breath Sounds Auscultated Anterior and posterior All Lobes Breath Sounds Clear Oxygen Therapy Room air Oxygen Saturation 97 % Skin Description Normal for ethnicity Skin Temperature Warm Skin Integrity Intact Neurological Symptoms Patient denies Extremity Movement Equal Characteristics of Speech Clear Level of Consciousness Alert Strength All Extremities Strong Tone All Extremities Normal Affect/Behavior Appropriate, Calm, Cooperative Orientation Oriented x 4 Positioning Repositions self Activity Status ADL Awake Standard Safety ID band on, Allergy Band on, Call device within reach, Bed in low position, Wheels locked, Safety level maintained 09/27/2025 7:38 EDT Allergies Yes Head Operator On Yes Consent Form Signed Yes Patient Dressed In Hospital gown CHG Preoperative Wash/Wipe Night before procedure, Day of procedure CHG Skin Prep Completed for Eligible Surgery History & Physical On Chart Yes Belongings At Bedside Glasses, Pants, Shirt, Shoes, Socks, Undergarments, Walker NPO Status Maintained Allergy Band on and Verified Yes Patient ID Band on and Verified Yes Implants Verified Yes Pacemaker/AICD Verified Yes Site Verified by Patient/Family Yes Last Fluid Intake 09/26/2025 22:00 Last Food Intake 09/26/2025 17:00 09/27/2025 7:34 EDT Designated Person #1 We May Share WAN HAAS [phone] Designated Person #1 Relationship Daughter Privacy Restrictions Requested None Status N/A Sensory Deficits None Sleep Apnea Snore Yes Sleep Apnea Tired Yes Sleep Apnea Obstruction No Sleep Apnea Pressure Yes Sleep Apnea BMI No Sleep Apnea Age Yes Sleep Apnea Neck No Sleep Apnea Gender No Sleep Apnea Score 4 Diagnosed With Sleep Apnea No Advanced Directives Yes Advance Directive Type [place] Durable Power of Picture Engraver for [place], [place] Declaration (Living Will) Advance Directive Location Indicates that Geeta has been given copy Infectious Disease Symptoms Patient states no symptoms Infectious Disease Recent Exposure No Alcohol and Drug Use No Employee of Institutional Living No Health Care Employee No History of Exposure to TB No History of Positive Chest X-Ray for TB No History of Positive TB Skin Test No Homeless No Known Immunosuppression No Recent Immigrant No Resident of Institutional Living No Bloody Sputum No Fatigue No Fever No Loss of Appetite No Night Sweats No Persistent Cough > 3 Weeks No Weight Loss No Pre-Op Patient Education NPO after midnight, No smoking after midnight, No makeup, No jewelry, Aware of surgery location, Pre-op education done, 1 bottle CHG wash with instructions given, Instructed to take ordered medications, Anesthesia block education provided SN - Preprocedure Comments Spoke with patient, Verbalizes/Nonverbally indicates understanding, Other: PANTOPRAZOLE, AMLODIPINE Barriers to Learning None evident Teaching Method Explanation, Printed materials Preferred Spoken Language Macedonian Preferred Written Language Macedonian Teaching Evaluation Verbalizes/Nonverbally indicates understanding Total Joint Book Given Yes Safety Brochure Information Reviewed Yes Geeta Welcome Video Viewed No Patient's Current Physicians Patient's Current Physicians History of Malignant Hyperthermia No Discharge To, Anticipated Home with family care Prev Test Positive/Diagnosis w/COVID-19 No Current Quarantine/Isolated any Illness No Any Contact with Sick Animals/Birds No Traveled Anywhere in Last 30 Days No Lost Weight Unintentionally Recently No Eat Poorly Due to Decreased Appetite No Total MST Score 0 N/A Personal Devices, Patient Valuables Glasses Anesthesia/Transfusions Prior anesthesia Admission Note-Nursing Same Day Patient History . Assessment and Plan [place] [employer] Anesthesiologists (ASA) physical status classification: Class III. Anesthetic Preoperative Plan Anesthetic technique: Spinal. Postoperative pain management: adductor. Informed consent: signed by patient. Digitally Signed by RUSLAN PRIDE on 09/27/2025 10:[address] [facility]08-21-2025 [facility] [address] [place] [address] OFFICE VISIT Date of Service: 07/21/25 1112 MR#: [id number] Acct: [id number] Name: ALISTAIR ARECHIGA Rep #: [id number] : 1945 From: Frances Medley ch, NP HARNESS INSTALLER-C Age/Sex: 79/F [place] [facility] [place]: Signed HPI Subjective Date of Service 07/21/25 Chief Complaint Breast cancer on treatment History of Present Illness 79-year-old female who never had screening mammography and presented after a self palpated painlesslump in the left breast that prompted a diagnostic mammogram and ultrasound and biopsy: January 28, 2025 Left breast, ?mass?, excisional biopsy: - Invasive breast carcinoma, NST (invasive ductal carcinoma), grade 2, at least 0.9 cm - Present at the edges of the tissue fragments - Grade 2 (score 6: T2, N2, M1) - ER: positive (100%, strong intensity) - ND: positive (95%, intermediate intensity) - Her2/IHC: 2+ (equivocal) - Her2/FISH: PENDING to be reported in an addendum - Ki67: approximately 20% February 22, 2025 left partial mastectomy and sentinel lymph node biopsy: FROZEN SECTION DIAGNOSIS A. Left sentinel node axilla, biopsy: Negative for metastasis. B. Left axilla lymph node, biopsy: Positive for metastasis. MS.ms 02/22/2025 MICROSCOPIC DIAGNOSIS A. LEFT AXILLA, SENTINEL LYMPH NODE, BIOPSY: - NEGATIVE FOR METASTASIS ? see note. Note: IHC for pancytokeratin supports the diagnosis. B. LEFT AXILLA, LYMPH NODE, BIOPSY: - NEGATIVE FOR MACRO-METASTASIS (0/2) - see note. Note: A small focus of atypical cells was observed on the frozen section and interpreted as ?positive for metastasis? at the time of frozen section. Thisfinding is NOT confirmed on the permanent section. IHC for pancytokeratin was utilized in the assessment of the permanent section. The atypical cells seen at frozen section could represent a tiny focus of metastatic tumor that does not persist deeper into the block; alternatively, those cells might actually represent reactive endothelial cells which are identified on the permanent section. I favor the latter, but the findings are not conclusive, and a micro-metastasis cannot be completely excluded. C. LEFT BREAST, LEFT PARTIAL MASTECTOMY: - INVASIVE DUCTAL ADENOCARCINOMA, NST, GRADE 1, MARGINS FREE - TUBULE 1, NUCLEAR 2, MITOSIS 1. COMMENT SYNOPTIC REPORT FOR INVASIVE BREAST CARCINOMA Specimen (P=partial, M=mastectomy): P Laterality (R=right, L=left): L Focality (U=unifocal, M=multifocal): U Tumor size (cm): biopsy cavity is 3.3 x 1.3 x 1.2 cm. Residual tumor focally extends 0.4 cm beyond the edge of the biopsy cavity (C11). Histologic type: invasive ductal carcinoma Histologic grade: 1 Tubule score (1-3): 1 Nuclear score (1-3): 2 Mitotic score (1-3): 1 Skin, nipple epidermis (I=involved, N=negative, NA=not applicable): I (deep dermis) Lymphovascular invasion (E=extensive, F=focal, N=not identified): N Margins of main specimen (P=positive, N=negative): N Distance to closest margin of main specimen (mm): The biopsy cavity is focally 0.2 cm from the medial margin, the posterior margin, and the inferior margin, with no residual tumor seen in those sections (C1 through C5). The remaining margins are 1.0 cm or greater from the biopsy cavity. Designation of closest margin of main specimen: medial, posterior, inferior Designation of other margins of main specimen Re-resection margin status (P=positive, N=negative, NA=not applicable): NA DCIS (P=present, N=not identified): N Nuclear grade: NA Comedo necrosis (P=present, N=not identified): NA Extensive intraductal component (P=present, N=not identified): NA Margins of main specimen (P=positive, N=negative): NA Distance to closest margin of main specimen (mm): NA Designation of closest margin of main specimen: NA Designation of other margins of main specimen Longest span Re-resection margin status (P=positive, N=negative, NA=not applicable): NA Regional lymph nodes: Total number of lymph nodes: 3 Number of sentinel lymph nodes: 3 Number with macrometastases: 0 Number with micrometastases: uncertain see diagnosis for part B Number with isolated tumor cells: 0 Size of largest azael metastasis (mm): NA Size of extranodal extension (mm) (N=not identified): NA Estrogen receptor: positive (90%, strong intensity) Progesterone receptor: positive (50%, intermediate intensity) HER2 IHC: equivocal (2+) HER2 FISH: PENDING (to be reported in an addendum) Specimen in which ER/ND/HER2 performed: [id number] C pTNM: pT2 pN0 (see note in diagnosis for part B) Additional findings: Extensive fat necrosis with multifocal foreign body giant cell reaction. 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 HER2 by FISH not amplified. Treatment summary and response: Left partial mastectomy with sentinel lymph node biopsy January 2025 Adjuvant radiation Left breast APBI consisting of 2850 cGy in 5 fractions delivered to the partial left breast, prone position with 3D conformal technique April 11-2024. Interval History The patient is presenting to clinic for a planned 3-month follow-up anticipatingshe will begin Zometa. Confirms good adherence and tolerance to anastrozole at this time. Has noticed some bilat pedal edema, unsure c/o taste disturbance on anastrozole, describes as mild. Denies hot flashes, headache, dizziness, CP, palpitations, cough, SOB, abd pain,joint pain (aside from chronic left knee pain, gets cortisone injections per ortho every 3 months). Exercises performing LUE stretches at night. [facility] Medical History Encounter for education Osteopenia Cancer Wears glasses Post-menopausal Arthritis Low iron Fatty liver History of hiatal hernia Non-smoker History of pain when walking History of echocardiogram History of stress test GERD (gastroesophageal reflux disease) Vertigo Hyperlipidemia Surgical History Status post partial mastectomy of left breast History of breast lump/mass excision History of surgery on wrist History of surgery on wrist History of esophagogastroduodenoscopy (EGD) Hx of colonoscopy H/O tubal ligation Family History Father Heart disease CVA (cerebral vascular accident) Social History Smoking Status: Never smoker alcohol intake: current details: social substance use type: does not use caffeine: Yes frequency: 1-2 times per week seatbelt use: always do you feel safe at home: Yes additional social history: (Prasanna) ROS ROS Narrative Negative except as documented in the interval HPI Intake Vital Signs 04/11/25 04:04 07/21/25 10:44 07/21/25 11:15 Height 5 ft 1 in 5 ft 1 in Weight: 172 lb 175 lb BMI 33.0 BP 136/78 H Blood Pressure Location Lt brachial Position Sitting Respiration 18 Pulse 73 Pulse Source Monitor Temp 98.4 F Temperature Source Temporal Artery Pulse Oximetry (%) 96 Oxygen Delivery Method room air Intake Accompanied by: Self Is patient in pain?: Yes (right shoulder and left knee ) Pain scale (1-10): 5 Allergies sulfamethoxazole (From Bactrim) Allergy (Mild, Verified 07/21/25 11:19) Other trimethoprim (From Bactrim) Allergy (Mild, Verified 07/21/25 11:19) Other chlorhexidine (From ChloraPrep Clear) Allergy (Verified 07/21/25 11:19) Rash potassium clavulanate (From Augmentin) Allergy (Verified 07/21/25 11:19) Rash amoxicillin trihydrate (From Augmentin) Adverse Reaction (Verified 07/21/25 11:19) Rash Medications ?Medication ?Instructions ?Recorded ?Confirmed ?Type fenofibric acid (choline) 135 mg 135 mg PO DAILY 02/2807/21/25 History capsule,delayed release calcium 600 mg (as carbonate)-vit 1 tab PO DAILY 06/0507/21/25 History D3 10 mcg (400 unit) chewable tablet (Calcium 600 with Vitamin D3) meclizine 25 mg tablet 25 mg PO DAILY PRN vertigo 0 06/05/22 07/21/25 History pantoprazole 40 mg tablet,delayed 40 mg PO DAILY #14 t abs 03/09/23 07/21/25 Rx release Mccoy Revive 2 cap PO DAILY 10/18/2407/02 History ascorbic acid (vitamin C) 500 mg 500 mg PO DAILY 01/2007/21/25 History tablet (C-500) boric acid 600 mg vaginal 600 mg vaginal WE 01/20/25 0 07/21/25 History suppository d-mannose 500 mg capsule 500 mg PO BID 01/20/2507/21 History vitamin E 268 mg (400 unit) capsule 268 mg PO DAILY 07/21/25 History alprazolam 0.5 mg tablet (Xanax) 0.5 mg PO DAILY anxie ty #20 tabs 04/07/25 07/21/25 Rx sertraline 50 mg tablet (Zoloft) 50 mg PO DAILY #30 ta bs 04/07/25 07/21/25 Rx anastrozole 1 mg tablet 1 mg PO DAILY #90 tabs 04/2107/21/25 Rx hydralazine 25 mg tablet 25 mg PO TID PRN blood press ure 04/21/25 07/21/25 History amlodipine 5 mg tablet 5 mg PO DAILY 04/23/2507/21 History nystatin 100,000 unit/gram topical 1 applic topical ND N 04/23/25 07/21/25 History ointment methenamine hippurate 1 gram tablet 1 g PO BID 5 07/21/25 History Have you fallen in the past year?: No Central Venous Access Central Venous Access: No Laboratory Tests 07/21/25 10:47 BUN 18 Creatinine 1.15 Calcium 9.4 Exam Physical Exam Narrative ECOG 0-1 Const alert and oriented x3 Nutritional Appearance: overweight HEENT Face and Sinus: normal facial exam Eyes General Eye: normal appearance of both eyes Neck no lymphadenopathy and no JVD Lymph Lymphatic: no lymphadenopathy noted Resp clear to auscultation bilaterally Cardio regular rate and regular rhythm GI soft to palpation, non-tender and non-distended; Negative for hepatosplenomegaly Back/Spine no thoracic nor lumbar tenderness Extremity no clubbing, cyanosis or edema Skin no rashes or lesions noted Neuro oriented x3, CN's II-XII intact bilaterally, moves all extremities and no focal motor deficits Speech: speech normal Gait (Neuro): normal gait Psych mental status grossly normal Coding Level of Care Code Off vis,est,level 4 Exam Problem Focused Diagnoses Malignant neoplasm of central portion of left breast in female, estrogen receptor positive C50.112;Z17.0 Breast location: central portion of breast Estrogen receptor status: positive Patient sex: female Osteopenia of multiple sites M85.89 Osteopenia location: multiple sites Assessment and Plan Assessment and Plan (1) Breast cancer, left breast: Status: Acute Qualifiers: Breast location: central portion of breast Estrogen receptor status: positive Patient sex: female Qualified Code(s): C50.112 - 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; Z17.0 - Estrogen receptor positive status [ER+] Comment: Invasive ductal carcinoma, Gr 2, E/Pr +. Nodes neg. Radiation. 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 Patient is status post left partial mastectomy and sentinel lymph node biopsy January 2025. Completed adjuvant radiation April 20, 2025. Family history no first-degree relatives with breast cancer. Chronic comorbid conditions: Hypertension, dyslipidemia, GERD, osteopenia, degenerative joint disease. Recommendations: Based on NCCN guidelines: 1. Systemic adjuvant hormonal therapy with an aromatase inhibitor for at least 5 years. Continue anastrozole. 2. Osteopenia- risks and benefits associated with Zometa reviewed, including ONJ and hypocalcemia. Dental clearance received. Serum creatinine and calcium within normal limits. Patient will begin Zometa today. Continue vitamin D and calcium supplement Clinical Quality Measures Falls Risk Screening/Assistive Devices Have you fallen in the past year?: No 07/21/25 1151 h HARNESS INSTALLER HARNESS INSTALLER-C> Date _ Frances Sevilla HARNESS INSTALLER HARNESS INSTALLER-C Cosigner Signature: Date (if applicable) CC: ~ [facility]08-21-2025 Progress note Author Frances Sevilla [facility] Note Date/Time July 21, 2025 11 :51am [facility] [address] [place] [address] OFFICE VISIT Date of Service: 07/21/25 1112 MR#: [id number] Acct: [id number] Name: ALISTAIR ARECHIGA Rep #: [id number] : 1945 From: Frances Medley ch, NP [employer] IN[employer]ER-C Age/Sex: 79/F Location: [facility] Status: Signed HPI Subjective Date of Service 07/21/25 Chief Complaint Breast cancer on treatment History of Present Illness 79-year-old female who never had screening mammography and presented after a self palpated painless lump in the left breast that prompted a diagnostic mammogram and ultrasound and biopsy: January 28, 2025 Left breast, ?mass?, excisional biopsy: - Invasive breast carcinoma, NST (invasive ductal carcinoma), grade 2, at least 0.9 cm - Present at the edges of the tissue fragments - Grade 2 (score 6: T2, N2, M1) - ER: positive (100%, strong intensity) - ND: positive (95%, intermediate intensity) - Her2/IHC: 2+ (equivocal) - Her2/FISH: PENDING to be reported in an addendum - Ki67: approximately 20% February 22, 2025 left partial mastectomy and sentinel lymph node biopsy: FROZEN SECTION DIAGNOSIS A. Left sentinel node axilla, biopsy: Negative for metastasis. B. Left axilla lymph node, biopsy: Positive for metastasis. MS.ms 02/22/2025 MICROSCOPIC DIAGNOSIS A. LEFT AXILLA, SENTINEL LYMPH NODE, BIOPSY: - NEGATIVE FOR METASTASIS ? see note. Note: IHC for pancytokeratin supports the diagnosis. B. LEFT AXILLA, LYMPH NODE, BIOPSY: - NEGATIVE FOR MACRO-METASTASIS (0/2) - see note. Note: A small focus of atypical cells was observed on the frozen section and interpreted as ?positive for metastasis? at the time of frozen section. Thisfinding is NOT confirmed on the permanent section. IHC for pancytokeratin was utilized in the assessment of the permanent section. The atypical cells seen at frozen section could represent a tiny focus of metastatic tumor that does not persist deeper into the block; alternatively, those cells might actually represent reactive endothelial cells which are identified on the permanent section. I favor the latter, but the findings are not conclusive, and a micro-metastasis cannot be completely excluded. C. LEFT BREAST, LEFT PARTIAL MASTECTOMY: - INVASIVE DUCTAL ADENOCARCINOMA, NST, GRADE 1, MARGINS FREE - TUBULE 1, NUCLEAR 2, MITOSIS 1. COMMENT SYNOPTIC REPORT FOR INVASIVE BREAST CARCINOMA Specimen (P=partial, M=mastectomy): P Laterality (R=right, L=left): L Focality (U=unifocal, M=multifocal): U Tumor size (cm): biopsy cavity is 3.3 x 1.3 x 1.2 cm. Residual tumor focally extends 0.4 cm beyond the edge of the biopsy cavity (C11). Histologic type: invasive ductal carcinoma Histologic grade: 1 Tubule score (1-3): 1 Nuclear score (1-3): 2 Mitotic score (1-3): 1 Skin, nipple epidermis (I=involved, N=negative, NA=not applicable): I (deep dermis) Lymphovascular invasion (E=extensive, F=focal, N=not identified): N Margins of main specimen (P=positive, N=negative): N Distance to closest margin of main specimen (mm): The biopsy cavity is focally 0.2 cm from the medial margin, the posterior margin, and the inferior margin, with no residual tumor seen in those sections (C1 through C5). The remaining margins are 1.0 cm or greater from the biopsy cavity. Designation of closest margin of main specimen: medial, posterior, inferior Designation of other margins of main specimen </=1 mm: NA Re-resection margin status (P=positive, N=negative, NA=not applicable): NA DCIS (P=present, N=not identified): N Nuclear grade: NA Comedo necrosis (P=present, N=not identified): NA Extensive intraductal component (P=present, N=not identified): NA Margins of main specimen (P=positive, N=negative): NA Distance to closest margin of main specimen (mm): NA Designation of closest margin of main specimen: NA Designation of other margins of main specimen </=2 mm: NA Longest span </= 2 mm to margin of main specimen (mm): NA Re-resection margin status (P=positive, N=negative, NA=not applicable): NA Regional lymph nodes: Total number of lymph nodes: 3 Number of sentinel lymph nodes: 3 Number with macrometastases: 0 Number with micrometastases: uncertain see diagnosis for part B Number with isolated tumor cells: 0 Size of largest azael metastasis (mm): NA Size of extranodal extension (mm) (N=not identified): NA Estrogen receptor: positive (90%, strong intensity) Progesterone receptor: positive (50%, intermediate intensity) HER2 IHC: equivocal (2+) HER2 FISH: PENDING (to be reported in an addendum) Specimen in which ER/ND/HER2 performed: [id number] C pTNM: pT2 pN0 (see note in diagnosis for part B) Additional findings: Extensive fat necrosis with multifocal foreign body giant cell reaction. 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 HER2 by FISH not amplified. Treatment summary and response: Left partial mastectomy with sentinel lymph node biopsy January 2025 Adjuvant radiation Left breast APBI consisting of 2850 cGy in 5 fractions delivered to the partial left breast, prone position with 3D conformal technique April 11- 2024. Interval History The patient is presenting to clinic for a planned 3-month follow-up anticipatingshe will begin Zometa. Confirms good adherence and tolerance to anastrozole at this time. Has noticed some bilat pedal edema, unsure c/o taste disturbance on anastrozole, describes as mild. Denies hot flashes, headache, dizziness, CP, palpitations, cough, SOB, abd pain,joint pain (aside from chronic left knee pain, gets cortisone injections per ortho every 3 months). Exercises performing LUE stretches at night. [facility] Medical History Encounter for education Osteopenia Cancer Wears glasses Post-menopausal Arthritis Low iron Fatty liver History of hiatal hernia Non-smoker History of pain when walking History of echocardiogram History of stress test GERD (gastroesophageal reflux disease) Vertigo Hyperlipidemia Surgical History Status post partial mastectomy of left breast History of breast lump/mass excision History of surgery on wrist History of surgery on wrist History of esophagogastroduodenoscopy (EGD) Hx of colonoscopy H/O tubal ligation Family History Father Heart disease CVA (cerebral vascular accident) Social History Smoking Status: Never smoker alcohol intake: current details: social substance use type: does not use caffeine: Yes frequency: 1-2 times per week seatbelt use: always do you feel safe at home: Yes additional social history: (Prasanna) ROS ROS Narrative Negative except as documented in the interval HPI Intake Vital Signs 04/11/25 04:04 07/21/25 10:44 07/21/25 11:15 Height 5 ft 1 in 5 ft 1 in Weight: 172 lb 175 lb BMI 33.0 BP 136/78 H Blood Pressure Location Lt brachial Position Sitting Respiration 18 Pulse 73 Pulse Source Monitor Temp 98.4 F Temperature Source Temporal Artery Pulse Oximetry (%) 96 Oxygen Delivery Method room air Intake Accompanied by: Self Is patient in pain?: Yes (right shoulder and left knee ) Pain scale (1-10): 5 Allergies sulfamethoxazole (From Bactrim) Allergy (Mild, Verified 07/21/25 11:19) Other trimethoprim (From Bactrim) Allergy (Mild, Verified 07/21/25 11:19) Other chlorhexidine (From ChloraPrep Clear) Allergy (Verified 07/21/25 11:19) Rash potassium clavulanate (From Augmentin) Allergy (Verified 07/21/25 11:19) Rash amoxicillin trihydrate (From Augmentin) Adverse Reaction (Verified 07/21/25 11:19) Rash Medications ?Medication ?Instructions ?Recorded ?Confirmed ?Type fenofibric acid (choline) 135 mg 135 mg PO DAILY 02/2807/21/25 History capsule,delayed release calcium 600 mg (as carbonate)-vit 1 tab PO DAILY 06/0507/21/25 History D3 10 mcg (400 unit) chewable tablet (Calcium 600 with Vitamin D3) meclizine 25 mg tablet 25 mg PO DAILY PRN vertigo 0 06/05/22 07/21/25 History pantoprazole 40 mg tablet,delayed 40 mg PO DAILY #14 t abs 03/09/23 07/21/25 Rx release Mccoy Revive 2 cap PO DAILY 10/18/2407/02 History ascorbic acid (vitamin C) 500 mg 500 mg PO DAILY 01/2007/21/25 History tablet (C-500) boric acid 600 mg vaginal 600 mg vaginal WE 01/20/25 0 07/21/25 History suppository d-mannose 500 mg capsule 500 mg PO BID 01/20/2507/21 History vitamin E 268 mg (400 unit) capsule 268 mg PO DAILY 07/21/25 History alprazolam 0.5 mg tablet (Xanax) 0.5 mg PO DAILY anxie ty #20 tabs 04/07/25 07/21/25 Rx sertraline 50 mg tablet (Zoloft) 50 mg PO DAILY #30 ta bs 04/07/25 07/21/25 Rx anastrozole 1 mg tablet 1 mg PO DAILY #90 tabs 04/2107/21/25 Rx hydralazine 25 mg tablet 25 mg PO TID PRN blood press ure 04/21/25 07/21/25 History amlodipine 5 mg tablet 5 mg PO DAILY 04/23/2507/21 History nystatin 100,000 unit/gram topical 1 applic topical ND N 04/23/25 07/21/25 History ointment methenamine hippurate 1 gram tablet 1 g PO BID 5 07/21/25 History Have you fallen in the past year?: No Central Venous Access Central Venous Access: No Laboratory Tests 07/21/25 10:47 BUN 18 Creatinine 1.15 Calcium 9.4 Exam Physical Exam Narrative ECOG 0-1 Const alert and oriented x3 Nutritional Appearance: overweight HEENT Face and Sinus: normal facial exam Eyes General Eye: normal appearance of both eyes Neck no lymphadenopathy and no JVD Lymph Lymphatic: no lymphadenopathy noted Resp clear to auscultation bilaterally Cardio regular rate and regular rhythm GI soft to palpation, non-tender and non-distended; Negative for hepatosplenomegaly Back/Spine no thoracic nor lumbar tenderness Extremity no clubbing, cyanosis or edema Skin no rashes or lesions noted Neuro oriented x3, CN's II-XII intact bilaterally, moves all extremities and no focal motor deficits Speech: speech normal Gait (Neuro): normal gait Psych mental status grossly normal Coding Level of Care Code Off vis,est,level 4 Exam Problem Focused Diagnoses Malignant neoplasm of central portion of left breast in female, estrogen receptor positive C50.112; Z17.0 Breast location: central portion of breast Estrogen receptor status: positive Patient sex: female Osteopenia of multiple sites M85.89 Osteopenia location: multiple sites Assessment and Plan Assessment and Plan (1) Breast cancer, left breast: Status: Acute Qualifiers: Breast location: central portion of breast Estrogen receptor status: positive Patient sex: female Qualified Code(s): C50.112 - 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; Z17.0 - Estrogen receptor positive status [ER+] Comment: Invasive ductal carcinoma, Gr 2, E/Pr +. Nodes neg. Radiation. 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 Patient is status post left partial mastectomy and sentinel lymph node biopsy January 2025. Completed adjuvant radiation April 20, 2025. Family history no first-degree relatives with breast cancer. Chronic comorbid conditions: Hypertension, dyslipidemia, GERD, osteopenia, degenerative joint disease. Recommendations: Based on NCCN guidelines: 1. Systemic adjuvant hormonal therapy with an aromatase inhibitor for at least 5 years. Continue anastrozole. 2. Osteopenia- risks and benefits associated with Zometa reviewed, including ONJ and hypocalcemia. Dental clearance received. Serum creatinine and calcium within normal limits. Patient will begin Zometa today. Continue vitamin D and calcium supplement Clinical Quality Measures Falls Risk Screening/Assistive Devices Have you fallen in the past year?: No 07/21/25 1151 <Electronically signed by Frances MCCORMACKC> Date _ Frances Sevilla NP [employer]ESS INSTALLER-C Cosigner Signature: Date (if applicable) CC: ~ [facility] Work Phone: [phone]) 861-144706-26-2025 Evaluation note* Diagnosis Onset Date Resolution Status Admit Date Breast cancer, left breast acute May 26, 2025 9:44am Encounter for pessary maintenance acute July 05, 2025 10:07am Vaginal pessary in situ acute A ug2024 10:07am 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 July 05, 2025 10:07am Breast cancer, left breast acute July 21, 2025 10:32am Osteopenia chronic July 21, 2 025 10:32am Stress incontinence acute Augus t 2024 10:06am UTI (urinary tract infection) acute July 26, 2025 10:06am Vaginal atrophy acute July 262024 10:06am 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 July 26 10:06am [facility] Work Phone: [phone] Discharge summary Author Manoj Mehta [facility] Note Date/Time April 11, 2025 4:35a m [facility] Medical Records Department [address] [place] [address] Emergency Department Summary 04/11/25 MR#: [id number] Acct: [id number] Name: ALISTAIR ARECHIGA Rep #:[id number] : 1945 79 From: Manoj Mehta MD PCP: NONA [facility] Status:PRE E R Location: ED HPI History of Present Illness Chief Complaint: Hypertension Informant: patient Onset/Context/Timing Onset: Days Context: Gradual Onset Timing: Intermittent Current Severity: Mild Maximum Severity: Mild Narrative Narrative: 79-year-old female history of hypertension recently started on amlodipine. Alsohistory of anxiety. passed earlier this year. She has been recently diagnosed with breast cancer had a lumpectomy and is scheduled to begin radiation therapy today. She was seen emergency department twice last week. Labs are pretty unremarkable other than a mild anemia. Tonight she noted her blood pressure was a little higher and came in the emergency department. Deniesrecent illness. Currently feels well. Prior similar symptoms: Yes Recent Illness/Hospitalization: No PFSH [facility] Medical History Osteopenia Cancer Wears glasses Post-menopausal Arthritis Low iron Fatty liver History of hiatal hernia Non-smoker History of pain when walking History of echocardiogram History of stress test GERD (gastroesophageal reflux disease) Vertigo Hyperlipidemia Home Medications ?Medication ?Instructions ?Recorded ?Last Taken ?Type fenofibric acid (choline) 135 mg 135 mg PO DAILY 02/2804/03/25 History capsule,delayed release calcium 600 mg (as carbonate)-vit 1 tab PO DAILY 06/0504/04/25 History D3 10 mcg (400 unit) chewable tablet (Calcium 600 with Vitamin D3) meclizine 25 mg tablet 25 mg PO DAILY PRN vertigo 0 06/05/22 04/04/25 History pantoprazole 40 mg tablet,delayed 40 mg PO DAILY #14 t abs 03/09/23 04/04/25 Rx release Mccoy Revive 2 cap PO DAILY 10/18/24 0503/25 History ascorbic acid (vitamin C) 500 mg 500 mg PO DAILY 01/2004/04/25 History tablet (C-500) boric acid 600 mg vaginal 600 mg vaginal WE 01/20/25 0 03/30/25 History suppository d-mannose 500 mg capsule 500 mg PO BID 01/20/2504/04 History vitamin E 268 mg (400 unit) capsule 268 mg PO DAILY 04/04/25 History alprazolam 0.5 mg tablet (Xanax) 0.5 mg PO DAILY anxie ty #20 tabs 04/07/25 Unknown Rx sertraline 50 mg tablet (Zoloft) 50 mg PO DAILY #30 ta bs 04/07/25 Unknown Rx Allergy/AdvReac Type Severity Reaction Status Date / Time sulfamethoxazole (From Allergy Mild Other Verified 04/07/25 09:48 Bactrim) trimethoprim (From Bactrim) Allergy Mild Other Verified 04/07/25 09:48 chlorhexidine (From Allergy Rash Verified 04/07/25 09:48 ChloraPrep Clear) potassium clavulanate (From Allergy Rash Verified 04/07/25 09:48 Augmentin) amoxicillin trihydrate (From AdvReac Rash Verified 04/07/25 09:48 Augmentin) Family History Father Heart disease CVA (cerebral vascular accident) Surgical History Status post partial mastectomy of left breast History of breast lump/mass excision History of surgery on wrist History of surgery on wrist History of esophagogastroduodenoscopy (EGD) Hx of colonoscopy H/O tubal ligation Social History Smoking Status: Never smoker alcohol intake: current details: social substance use type: does not use caffeine: Yes frequency: 1-2 times per week seatbelt use: always do you feel safe at home: Yes additional social history: (Prasanna) ROS ROS ED ROS Narrative Denies recent illness. Constitutional Constitutional ED: Denies chills or fever(s) Eyes Eyes: Denies blurry vision ENT ENT ED: Denies ear pain Cardiovascular Cardiovascular: Denies chest pain Respiratory/Chest Respiratory/Chest: Denies cough Gastrointestinal Gastrointestinal: Denies abdominal pain Genitourinary Genitourinary ED: Denies dysuria Musculoskeletal Musculoskeletal: Denies arthralgias Integumentary Denies abscess Neurologic Neurologic: Denies headache(s) Psychiatric Psychiatric: Reports anxiety Endocrine Endocrinology: Denies cold intolerance Hematologic/Lymphatic Hematologic/Lymphatic: Reports none Allergic/Immunologic Allergic/Immunologic ED: Denies mouth swelling, tongue swelling or urticaria EXAM Physical Exam Narrative Exam Narrative: Well-appearing 79-year-old female. Vital signs stable afebrile. Initial blood pressure 176/78. Repeated while in the room 165/72. Patient is in no distress. H EENT exam pupils round react to light. Extra motions are intact. No facial droop. Normal speech. Neck nontender no JVD. Lungs clear to auscultation bilaterally. Heart regular rhythm rate about 70 no murmur. Chest wall ribs nontender. Abdomen soft nontender. Moving all 4 extremities. Nontender no edema. Normal strength. Normal range of motion. Back nontender. Neurologically she is awake alert. Answer questions following commands. Mildlyanxious but is calming down as we talk and discuss and go through things. Very benign exam. Const Vital Signs: 04/11/25 04:04 04/11/25 04:10 Temperature 98.2 F Temperature Source Oral Pulse Rate 69 Respiratory Rate 13 Respiratory Effort Normal Respiratory Pattern Normal Blood Pressure 176/78 H Blood Pressure Mean 110 Pulse Ox 100 Oxygen Delivery Method Room Air Positive well nourished and well developed; Negative for cachectic, contracturesor unkempt General Appearance ED: well developed and NAD; Negative for unkempt, cachectic, contractures, cyanotic, diaphoretic or pallor Nutritional Appearance: Negative for cachectic HEENT Reports moist mucous membranes Eyes PERRL and EOMs intact bilaterally Neck no lymphadenopathy, supple and no JVD Chest Wall inspection of chest normal and palpation of chest normal Resp normal respiratory effort and clear to auscultation bilaterally Cardio regular rate, regular rhythm, S1 normal heart sound, S2 normal heart sound and no murmurs GI normal to inspection, nondistended, normoactive bowel sounds, non-tender, non-distended and no masses Inspection: Negative for abdominal distention Palpation: soft; Negative for tender, guarding or rebound tenderness present Back/Spine no CVA tenderness Extremity normal to inspection General Extremety ED: Negative for edema or tenderness General Extremity: Negative for edema Neuro oriented x3 and CN's II-XII intact bilaterally Sensorium / Orientation: alert; Negative for orientation impaired, lethargic or stuporous Motor Exam: strength 5/5 throughout; Negative for general weakness or strength abnormal Psych mental status grossly normal Appearance: Negative for unkempt Attitude: No agitated Mood & Affect: anxious; Negative for depressed or tearful Skin no rashes or lesions noted, no wounds and skin turgor normal General Skin Exam: elasticity normal; Negative for jaundice or pallor Lesions: No lesion noted Rashes: No rashes noted Trauma: Negative for abrasion Wounds: Negative for wounds noted MDM MDM MDM Narrative Medical decision making narrative: 79-year-old female acute on chronic hypertension currently on amlodipine 5 mg a day. Also some mild anxiety which is normal for everything that she is currently dealing with. Patient's exam is benign. She has had recent labs thatwere basically unremarkable other than mild anemia. I would not make any changes in her medications. Outpatient follow-up patient is comfortable with the plan.. Logging her blood pressure to see if they need to make any adjustments in her antihypertensive. Use her antianxiety meds as needed. History & Record Review Discussion w/independent historian: Patient Additional record(s) reviewed:: Prior inpatient record, Prior outpatient record,Prior ED visit and Prior labs Discharge Plan Triage Chief Complaint: Hypertension ED Provider: Manoj Mehta Dx/Rx/DC Orders Clinical Impression: Hypertension, Anxiety Instructions: ED Anxiety Reaction, ED High Blood Pressure Hypertension Prescriptions: No Action meclizine 25 mg tablet 25 mg PO DAILY PRN (Reason: vertigo) Calcium 600 with Vitamin D3 600 mg-10 mcg (400 unit) tablet,chewable 1 tab PO DAILY Mccoy Revive 2 cap PO DAILY fenofibric acid (choline) 135 mg capsule,delayed release(DR/EC) 135 mg PO DAILY Patient Comments: Take 1 Capsule by mouth daily pantoprazole 40 mg tablet,delayed release (DR/EC) 40 mg PO DAILY Qty: 14 0RF sertraline [Zoloft] 50 mg tablet 50 mg PO DAILY Qty: 30 0RF alprazolam [Xanax] 0.5 mg tablet 0.5 mg PO DAILY Qty: 20 0RF d-mannose 500 mg capsule 500 mg PO BID boric acid 600 mg suppository 600 mg vaginal WE vitamin E 268 mg (400 unit) capsule 268 mg PO DAILY ascorbic acid (vitamin C) [C-500] 500 mg tablet 500 mg PO DAILY Primary Care Provider: Rayshawn Chaudhary Referrals: Rayshawn Chaudhary, ALCIDES-C [Primary Care Provider] - As Needed Activity Restrictions/Additional Instructions: Follow-up your primary care physician. Log your blood pressures in the morning in the evening twice a day. Follow-up with your primary care provider to ensure that your blood pressure is being controlled appropriately with the current medication. A lot of this may be anxiety secondary to all that you have going on. That may improve with time andas you get through the radiation therapy. Use your anxiety medications as needed and prescribed. Print Language: Macedonian Disposition Disposition: Home, Self Care What to do if you have Problems For any increased pain, shortness of breath, bleeding, nausea or vomiting, chestpain, or any unexpected problems, contact your Primary Care Provider. Call [facility] ([phone]) or report to the closest Emergency Room. Call 911 if necessary. 04/11/25 0435 <Electronically signed by Manoj Mehta MD> Cosigner Signature (if applicable): CC: NONA Chaudhary ~ Signed [facility] Work Phone: [phone] 575-156605-12-2025 Discharge summary [facility] Medical Records Department [address] [place] [address] Emergency Department Summary 04/11/25 MR#: [id number] Acct: [id number] Name: ALISTAIR ARECHIGA Rep #:[id number] : 1945 79 From: Manoj Mehta MD PCP: NONA Dickerson Status:PRE E R Location: ED HPI History of Present Illness Chief Complaint: Hypertension Informant: patient Onset/Context/Timing Onset: Days Context: Gradual Onset Timing: Intermittent Current Severity: Mild Maximum Severity: Mild Narrative Narrative: 79-year-old female history of hypertension recently started on amlodipine. Alsohistory of anxiety. passed earlier this year. She has been recently diagnosed with breast cancer had a lumpectomy and is scheduled to begin radiation therapy today. She was seen emergency department twice last week. Labs are pretty unremarkable other than a mild anemia. Tonight she noted her blood pressure was a little higher and came in the emergency department. Deniesrecent illness. Currently feels well. Prior similar symptoms: Yes Recent Illness/Hospitalization: No PFSH PFSH Medical History Osteopenia Cancer Wears glasses Post-menopausal Arthritis Low iron Fatty liver History of hiatal hernia Non-smoker History of pain when walking History of echocardiogram History of stress test GERD (gastroesophageal reflux disease) Vertigo Hyperlipidemia Home Medications ?Medication ?Instructions ?Recorded ?Last Taken ?Type fenofibric acid (choline) 135 mg 135 mg PO DAILY 02/2804/03/25 History capsule,delayed release calcium 600 mg (as carbonate)-vit 1 tab PO DAILY 06/0504/04/25 History D3 10 mcg (400 unit) chewable tablet (Calcium 600 with Vitamin D3) meclizine 25 mg tablet 25 mg PO DAILY PRN vertigo 0 06/05/22 04/04/25 History pantoprazole 40 mg tablet,delayed 40 mg PO DAILY #14 t abs 03/09/23 04/04/25 Rx release Mccoy Revive 2 cap PO DAILY 10/18/24 05/03/25 History ascorbic acid (vitamin C) 500 mg 500 mg PO DAILY 01/2004/04/25 History tablet (C-500) boric acid 600 mg vaginal 600 mg vaginal WE 01/20/25 0 03/30/25 History suppository d-mannose 500 mg capsule 500 mg PO BID 01/20/2504/04 History vitamin E 268 mg (400 unit) capsule 268 mg PO DAILY 04/04/25 History alprazolam 0.5 mg tablet (Xanax) 0.5 mg PO DAILY anxie ty #20 tabs 04/07/25 Unknown Rx sertraline 50 mg tablet (Zoloft) 50 mg PO DAILY #30 ta bs 04/07/25 Unknown Rx Allergy/AdvReac Type Severity Reaction Status Date / Time sulfamethoxazole (From Allergy Mild Other Verified 04/07/25 09:48 Bactrim) trimethoprim (From Bactrim) Allergy Mild Other Verified 04/07/25 09:48 chlorhexidine (From Allergy Rash Verified 04/07/25 09:48 ChloraPrep Clear) potassium clavulanate (From Allergy Rash Verified 04/07/25 09:48 Augmentin) amoxicillin trihydrate (From AdvReac Rash Verified 04/07/25 09:48 Augmentin) Family History Father Heart disease CVA (cerebral vascular accident) Surgical History Status post partial mastectomy of left breast History of breast lump/mass excision History of surgery on wrist History of surgery on wrist History of esophagogastroduodenoscopy (EGD) Hx of colonoscopy H/O tubal ligation Social History Smoking Status: Never smoker alcohol intake: current details: social substance use type: does not use caffeine: Yes frequency: 1-2 times per week seatbelt use: always do you feel safe at home: Yes additional social history: (Prasanna) ROS ROS ED ROS Narrative Denies recent illness. Constitutional Constitutional ED: Denies chills or fever(s) Eyes Eyes: Denies blurry vision ENT ENT ED: Denies ear pain Cardiovascular Cardiovascular: Denies chest pain Respiratory/Chest Respiratory/Chest: Denies cough Gastrointestinal Gastrointestinal: Denies abdominal pain Genitourinary Genitourinary ED: Denies dysuria Musculoskeletal Musculoskeletal: Denies arthralgias Integumentary Denies abscess Neurologic Neurologic: Denies headache(s) Psychiatric Psychiatric: Reports anxiety Endocrine Endocrinology: Denies cold intolerance Hematologic/Lymphatic Hematologic/Lymphatic: Reports none Allergic/Immunologic Allergic/Immunologic ED: Denies mouth swelling, tongue swelling or urticaria EXAM Physical Exam Narrative Exam Narrative: Well-appearing 79-year-old female. Vital signs stable afebrile. Initial blood pressure 176/78. Repeated while in the room 165/72. Patient is in no distress. H EENT exam pupils round react to light. Extra motions are intact. No facial droop. Normal speech. Neck nontender no JVD. Lungs clear to auscultation bilaterally. Heart regular rhythm rate about 70 no murmur. Chest wall ribs nontender. Abdomen soft nontender. Moving all 4 extremities. Nontender no edema. Normal strength. Normal range of motion. Back nontender. Neurologically she is awake alert. Answer questions following commands. Mildlyanxious but is calming down as we talk and discuss and go through things. Very benign exam. Const Vital Signs: 04/11/25 04:04 04/11/25 04:10 Temperature 98.2 F Temperature Source Oral Pulse Rate 69 Respiratory Rate 13 Respiratory Effort Normal Respiratory Pattern Normal Blood Pressure 176/78 H Blood Pressure Mean 110 Pulse Ox 100 Oxygen Delivery Method Room Air Positive well nourished and well developed; Negative for cachectic, contracturesor unkempt General Appearance ED: well developed and NAD; Negative for unkempt, cachectic, contractures, cyanotic, diaphoretic or pallor Nutritional Appearance: Negative for cachectic HEENT Reports moist mucous membranes Eyes PERRL and EOMs intact bilaterally Neck no lymphadenopathy, supple and no JVD Chest Wall inspection of chest normal and palpation of chest normal Resp normal respiratory effort and clear to auscultation bilaterally Cardio regular rate, regular rhythm, S1 normal heart sound, S2 normal heart sound and no murmurs GI normal to inspection, nondistended, normoactive bowel sounds, non-tender, non- distended and no masses Inspection: Negative for abdominal distention Palpation: soft; Negative for tender, guarding or rebound tenderness present Back/Spine no CVA tenderness Extremity normal to inspection General Extremety ED: Negative for edema or tenderness General Extremity: Negative for edema Neuro oriented x3 and CN's II-XII intact bilaterally Sensorium / Orientation: alert; Negative for orientation impaired, lethargic or stuporous Motor Exam: strength 5/5 throughout; Negative for general weakness or strength abnormal Psych mental status grossly normal Appearance: Negative for unkempt Attitude: No agitated Mood & Affect: anxious; Negative for depressed or tearful Skin no rashes or lesions noted, no wounds and skin turgor normal General Skin Exam: elasticity normal; Negative for jaundice or pallor Lesions: No lesion noted Rashes: No rashes noted Trauma: Negative for abrasion Wounds: Negative for wounds noted MDM MDM MDM Narrative Medical decision making narrative: 79-year-old female acute on chronic hypertension currently on amlodipine 5 mg a day. Also some mildanxiety which is normal for everything that she is currently dealing with. Patient's exam is benign. She has had recent labs thatwere basically unremarkable other than mild anemia. I would not make any changes in her medications. Outpatient follow-up patient is comfortable with the plan.. Logging her blood pressure to see if they need to make any adjustments in her antihypertensive. Use her antianxiety meds as needed. History & Record Review Discussion w/independent historian: Patient Additional record(s) reviewed:: Prior inpatient record, Prior outpatient record,Prior ED visit and Prior labs Discharge Plan Triage Chief Complaint: Hypertension ED Provider: Manoj Mehta Dx/Rx/DC Orders Clinical Impression: Hypertension, Anxiety Instructions: ED Anxiety Reaction, ED High Blood Pressure Hypertension Prescriptions: No Action meclizine 25 mg tablet 25 mg PO DAILY PRN (Reason: vertigo) Calcium 600 with Vitamin D3 600 mg-10 mcg (400 unit) tablet,chewable 1 tab PO DAILY Mccoy Revive 2 cap PO DAILY fenofibric acid (choline) 135 mg capsule,delayed release(DR/EC) 135 mg PO DAILY Patient Comments: Take 1 Capsule by mouth daily pantoprazole 40 mg tablet,delayed release (DR/EC) 40 mg PO DAILY Qty: 14 0RF sertraline [Zoloft] 50 mg tablet 50 mg PO DAILY Qty: 30 0RF alprazolam [Xanax] 0.5 mg tablet 0.5 mg PO DAILY Qty: 20 0RF d-mannose 500 mg capsule 500 mg PO BID boric acid 600 mg suppository 600 mg vaginal WE vitamin E 268 mg (400 unit) capsule 268 mg PO DAILY ascorbic acid (vitamin C) [C-500] 500 mg tablet 500 mg PO DAILY Primary Care Provider: Rayshawn Chaudhary Referrals: Rayshawn Chaudhary NP-C [Primary Care Provider] - As Needed Activity Restrictions/Additional Instructions: Follow-up your primary care physician. Log your blood pressures in the morning in the evening twice a day. Follow-up with your primary care provider to ensure that your blood pressure is being controlled appropriately with the current medication. A lot of this may be anxiety secondary to all that you have going on. That may improve withtime andas you get through the radiation therapy. Use your anxiety medications as needed and prescribed. Print Language: Macedonian Disposition Disposition: Home, Self Care What to do if you have Problems For any increased pain, shortness of breath, bleeding, nausea or vomiting, chestpain, or any unexpected problems, contact your Primary Care Provider. Call [facility] ([phone]) or report tothe closest Emergency Room. Call 911 if necessary. 04/11/25 7948 Cosigner Signature (if applicable): CC: NONA Chaudhary ~ Signed [facility]05-08-2025 Discharge summary [facility] Medical Records Department [address] [place] [address] Emergency Department Summary 04/07/25 MR#: [id number] Acct: [id number] Name: ALISTAIR ARECHIGA Rep #:[id number] : 1945 79 From: Wesly Campbell PCP: NONA Dickerson Status:REG E R Location: ED HPI History of Present Illness Chief Complaint: Hypertension Informant: patient and friend Narrative Narrative: Presents with concerning elevated blood pressure. Patient seen 3 days ago for chest pain with elevated blood pressure. No patient lost her spouse in December. In January she was diagnosed with left-sided breast cancer. She is followed with planned radiation treatment on Friday. She states blood pressure recently 160s. She was worked up 3 days ago for chest pains blood pressure 160s over 80s. Workup negative. She follow-up with her PCP the next day was told to keepa monitor on her blood pressurewith nursing visit in 2 weeks. Has been 160s, this morning after breakfast it was 190. She came here for evaluation. No headaches. No chest pains. No vomiting or diarrhea. Prior similar symptoms: Yes [facility] Medical History Osteopenia Cancer Wears glasses Post-menopausal Arthritis Low iron Fatty liver History of hiatal hernia Non-smoker History of pain when walking History of echocardiogram History of stress test GERD (gastroesophageal reflux disease) Vertigo Hyperlipidemia Home Medications ?Medication ?Instructions ?Recorded ?Last Taken ?Type fenofibric acid (choline) 135 mg 135 mg PO DAILY 02/2804/03/25 History capsule,delayed release calcium 600 mg (as carbonate)-vit 1 tab PO DAILY 06/0504/04/25 History D3 10 mcg (400 unit) chewable tablet (Calcium 600 with Vitamin D3) meclizine 25 mg tablet 25 mg PO DAILY PRN vertigo 0 06/05/22 04/04/25 History pantoprazole 40 mg tablet,delayed 40 mg PO DAILY #14 t abs 03/09/23 04/04/25 Rx release Mccoy Revive 2 cap PO DAILY 10/18/24 0503/25 History ascorbic acid (vitamin C) 500 mg 500 mg PO DAILY 01/2004/04/25 History tablet (C-500) boric acid 600 mg vaginal 600 mg vaginal WE 01/20/25 0 03/30/25 History suppository d-mannose 500 mg capsule 500 mg PO BID 01/20/2504/04 History vitamin E 268 mg (400 unit) capsule 268 mg PO DAILY 04/04/25 History alprazolam 0.5 mg tablet (Xanax) 0.5 mg PO DAILY anxie ty #20 tabs 04/07/25 Unknown Rx sertraline 50 mg tablet (Zoloft) 50 mg PO DAILY #30 ta bs 04/07/25 Unknown Rx Allergy/AdvReac Type Severity Reaction Status Date / Time sulfamethoxazole (From Allergy Mild Other Verified 04/07/25 09:48 Bactrim) trimethoprim (From Bactrim) Allergy Mild Other Verified 04/07/25 09:48 chlorhexidine (From Allergy Rash Verified 04/07/25 09:48 ChloraPrep Clear) potassium clavulanate (From Allergy Rash Verified 04/07/25 09:48 Augmentin) amoxicillin trihydrate (From AdvReac Rash Verified 04/07/25 09:48 Augmentin) Family History Father Heart disease CVA (cerebral vascular accident) Surgical History Status post partial mastectomy of left breast History of breast lump/mass excision History of surgery on wrist History of surgery on wrist History of esophagogastroduodenoscopy (EGD) Hx of colonoscopy H/O tubal ligation Social History Smoking Status: Never smoker alcohol intake: current details: social substance use type: does not use caffeine: Yes frequency: 1-2 times per week seatbelt use: always do you feel safe at home: Yes additional social history: (Prasanna) ROS ROS ED Constitutional Constitutional ED: Denies chills, fever(s) or sweats ENT ENT ED: Denies sore throat Cardiovascular Cardiovascular: Denies chest pain, leg edema, palpitations or racing heartbeat Respiratory/Chest Respiratory/Chest: Denies cough, dyspnea or dyspnea on exertion Gastrointestinal Gastrointestinal: Denies abdominal pain, diarrhea, nausea or vomiting Genitourinary Genitourinary ED: Denies dysuria, hematuria or urinary frequency Musculoskeletal Musculoskeletal: Denies back pain, extremity pain or neck pain Integumentary Denies rash or wounds Neurologic Neurologic: Denies headache(s), paresthesias or weakness EXAM Physical Exam Const Vital Signs: 04/07/25 09:46 04/07/25 10:34 04/07/25 11:46 Temperature 97 F L Temperature Source Temporal Pulse Rate 84 Respiratory Rate 14 Respiratory Effort Normal Non-Labored Respiratory Pattern Normal Blood Pressure 166/80 H 163/87 H Blood Pressure Mean 108 112 Pulse Ox 100 Oxygen Delivery Method Room Air Positive well nourished and well developed General Appearance ED: well developed and NAD HEENT Reports moist mucous membranes normocephalic and atraumatic Eyes General Eye ED: Yes normal appearance of both eyes Neck full ROM Chest Wall Chest: Negative for tenderness Resp normal respiratory effort and normal air movement Effort and Inspection: symmetric chest movement; Negative for respiratory distress Cardio regular rate, regular rhythm and no murmurs Peripheral Pulses: pulses 2+ throughout GI normal to inspection, nondistended, normoactive bowel sounds and non-tender Palpation: Negative for guarding or rebound tenderness present Extremity normal to inspection General Extremety ED: Negative for edema or tenderness General Extremity: Negative for edema Neuro oriented x3 and no sensory deficits noted Sensorium / Orientation: awake and alert Skin no rashes or lesions noted and no wounds MDM MDM MDM Narrative Medical decision making narrative: Interventions / MDM: Differential diagnosis: Acute stress reaction, elevated blood pressure, recent breast cancer Diagnosis considered but do not suspect: N/A My EKG interpretation: N/A Imaging independently reviewed and interpreted by myself: N/A External documents reviewed: ED evaluation from 3 days ago negative cardiac workup including D-dimer. Blood pressure systolic 160s. Test considered but not ordered:N/A ED course: Patient triage blood pressure 166/80. After discussing with patient with her history concerned this is anxiety induced with loss of her spouse and current diagnosis of breast cancer pending treatment with radiation. Her daughter she reports is a nurse and this [place]. She has not discussed with her PCP the stress with everything going through. I feel that treatment of her stress will help with her blood pressure. 1050: Spoke with her daughter Citlali on the phone with the patient in the room. Discussed treating anxiety will likely help symptoms she agrees with the plan. I will dose her with 0.5 mg of Xanax. Blood pressure during treatment 189/86. Lita discuss with her PCP for initiation of treatment. Will reevaluate. 1230: Blood pressure recheck 163/87. I discussed with PCP office with Dr. Parham, agrees with plan of care. She would like to start the patient on Zolofthalf of the 50 mg for the first week then go up to full tab. She requests 20 tabs of Xanax to be written for the patient to use as needed to startonce a dayif needed. Patient will follow-up in the office for reevaluation. Re-evaluation: stable Disposition discussed with patient/family/significant other: Patient, daughter and friend Case discussed with consulting clinician: PCP office This note was generated with Cubresa dictation software. It may contain incorrectwords, spelling, and punctuation that were not noted in checking the note beforesigning. Discharge Plan Triage Chief Complaint: Hypertension ED Provider: Wesly Leiva Dx/Rx/DC Orders Clinical Impression: Acute stress disorder, Breast cancer, left breast, Elevated blood pressure, situational Instructions: Hubbard to Managing Stress, Blood Pressure Check Steps Prescriptions: New sertraline [Zoloft] 50 mg tablet 50 mg PO DAILY Qty: 30 0RF alprazolam [Xanax] 0.5 mg tablet 0.5 mg PO DAILY Qty: 20 0RF No Action meclizine 25 mg tablet 25 mg PO DAILY PRN (Reason: vertigo) Calcium 600 with Vitamin D3 600 mg-10 mcg (400 unit) tablet,chewable 1 tab PO DAILY Mccoy Revive 2 cap PO DAILY fenofibric acid (choline) 135 mg capsule,delayed release(DR/EC) 135 mg PO DAILY Patient Comments: Take 1 Capsule by mouth daily pantoprazole 40 mg tablet,delayed release (DR/EC) 40 mg PO DAILY Qty: 14 0RF d-mannose 500 mg capsule 500 mg PO BID boric acid 600 mg suppository 600 mg vaginal WE vitamin E 268 mg (400 unit) capsule 268 mg PO DAILY ascorbic acid (vitamin C) [C-500] 500 mg tablet 500 mg PO DAILY Primary Care Provider: Rayshawn Chaudhary Referrals: Rayshawn Chaudhary, ALCIDES-C [Primary Care Provider] - 1-2 Weeks Activity Restrictions/Additional Instructions: Your blood pressure likely from your current stressors. I did discuss with Dr. Parham. We all agreed to start you on medicines to help with your anxiety and stress with your situation. Take Zoloft half a tab once a day for the next 7 days can go up to a full tab for total of 50 mg. Use Xanax for breakthrough stress as needed once a day for right now. If severe enough may use twice a day. Keep your follow-up with the office . Print Language: Macedonian Disposition Disposition: Home, Self Care What to do if you have Problems For any increased pain, shortness of breath, bleeding, nausea or vomiting, chestpain, or any unexpected problems, contact your Primary Care Provider. Call [facility] ([phone]) or report tothe closest Emergency Room. Call 911 if necessary. 04/07/25 1252 Cosigner Signature (if applicable): CC: HARNESS INSTALLERCandida Chaudhary ~ Signed [facility]05-05-2025 Evaluation note* Diagnosis Onset Date Resolution Status Admit Date Encounter for pessary maintenance acute April 04, 2025 10 :12am Vaginal pessary in situ acute M ay 2024 10:12am 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 April 04, 2025 10 :12am Hypertension chronic April 04 10:12am Breast cancer, left breast acute April 20, 2025 9:41am Breast cancer, left breast acute April 21, 2025 9:43am Encounter for education acute M ay 2024 9:43am Breast cancer, left breast acute May 26, 2025 9:44am Encounter for pessary maintenance acute July 05, 2025 10:07am Vaginal pessary in situ acute A 2024 10:07am 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 July 05, 2025 10:07am Breast cancer, left breast acute July 21, 2025 10:32am Osteopenia chronic July 21, 2 025 10:32am Urinary tract infection noneactive A ugust 2024 10:06am [facility] Work Phone: 1(405) 549-381604-25-2025 Evaluation note* Diagnosis Onset Date Resolution Status Admit Date Breast cancer, left breast acute March 25, 2025 10:13am Encounter for pessary maintenance acute April 04, 2025 10 :12am Vaginal pessary in situ acute M ay 2024 10:12am 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 April 04, 2025 10 :12am Hypertension chronic April 04 10:12am Breast cancer, left breast acute April 20, 2025 9:41am Breast cancer, left breast acute April 21, 2025 9:43am Encounter for education acute M ay 2024 9:43am Breast cancer, left breast acute May 26, 2025 9:44am Encounter for pessary maintenance acute July 05, 2025 10:07am Vaginal pessary in situ acute A ugust 2024 10:07am 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 July 05, 2025 10:07am Breast cancer, left breast acute July 21, 2025 10:32am Osteopenia chronic July 21, 2 025 10:32am [facility] Work Phone: 1([phone]) 547-709004-09-2025 Evaluation note* Diagnosis Onset Date Resolution Status Admit Date Breast cancer, left breast acute March 09, 2025 1:53pm Breast cancer, left breast acute March 16, 2025 9:10am Breast cancer, left breast acute March 25, 2025 10:13am Encounter for pessary maintenance acute April 04, 2025 10 :12am Vaginal pessary in situ acute M ay 2024 10:12am 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 April 04, 2025 10 :12am Hypertension chronic April 04 10:12am Breast cancer, left breast acute April 20, 2025 9:41am Breast cancer, left breast acute April 21, 2025 9:43am Encounter for education acute M ay 2024 9:43am Breast cancer, left breast acute May 26, 2025 9:44am [facility] Work Phone: [phone] Nuclear medicine Diagnostic study note [facility] [address] [place] [address] Lymph Node Injection Only MR#: [id number] Acct: [id number] Name: ALISTAIR ARECHIGA Rep #: [id number] : 1945 F 79 From: Bernard Conner MD PCP: EASTON DickersonC Status: REG S DC Study:Lymph Node Injection Only Date of Exam: 02/22/25 Exam# [id number] Ordering Dr: Deshawn Craven PA-C EXAM: Left breast lymphoscintigraphy. CLINICAL HISTORY: Left-sided breast cancer. COMPARISON: None available. TECHNIQUE: Patient was injected subdermally in a periareolar location at 12 o'clock with 595 uCi of Lymphoseek. The area was massaged. No imaging was performed. The patient was sent directly to the operating room for portable Neoprobe gamma counter detection of a sentinel lymph node. FINDINGS: As above. NM/Lymph Node Injection Only IMPRESSION: As above. Reading Location: [place] [address] CC: HARNESS INSTALLERSudeepC Rayshawn Chaudhary; TATA Craven; Dr. Branden Lance MD ~ Insole Lip Turner: Signed [facility]03-25-2025 Consult note Author Dia Campbell [facility] Note Date/Time February 22, 2025 9:5 0am [facility] [address] [place] [address] Anesthesia Postop Eval I 02/22/2544 MR#: [id number] Acct: [id number] Name: ALISTAIR ARECHIGA Rep #:[id number] : 1945 79 From: Dia Campbell CRNA PCP: NONA Dickerson Status:REG S DC Y Race: C Location: [place] [address] Anesthesia: Postop Eval I Current Vital Signs Temperature: 97.2 F Pulse Rate: 74 Blood Pressure: 185/76 Respiratory Rate: 12 Pulse Ox: 100 Oxygen Delivery Method: Simple Mask Assessment Airway patent: Yes Spontaneous unlabored respirations: Yes Mental status: Awake nausea: No Vomiting: No Anesthesia Complication: No Fluid Hydration Crystalloid volume administer (ml): 1,000 Total IV fluid infused: 1,000 Progress Note Anesthesia document: Postop Eval 1 completed: Yes 02/22/25 0950 <Electronically signed by Dia POWERS NA> Date _ Dia Campbell CRNA Cosigner Signature: Date CC: ~ Signed [facility] Work Phone: 1(577) 442-828503-25-2025 Discharge summary Author Branden Lance [facility] Note Date/Time February 22, 2025 9:3 9am [facility] Medical Records Department [address] [place] [address] Instructions for Home/Discharge Instructions 02/22/25 0937 MR#: [id number] Acct: [id number] Name: ALISTAIR ARECHIGA Rep #:[id number] : 1945 79 From: Branden joseph MD PCP: Rayshawn hCaudhary, HARNESS INSTALLER-C Status:REG S DC Discharge Instructions Diet Discharge Diet: Light diet - advance as tolerated Activity Discharge Activity: May Not Drive (for 2-3 days or while taking narcotic pain medications.) and May Shower Lifting Restrictions: 10 lbs for 1 week Additional Activity Instructions:: Alternate ibuprofen and Tylenol for pain control, oxycodone for breakthrough pain Dressing / Incision Call your doctor if your incision/area has: Continuous Slow Oozing, Sudden Increased Bleeding, Increased Pain/ Swelling, Increased Redness, Foul Smelling Discharge and Swelling at the incision site Call your doctor if you observe: Fever of 101 or Higher Suture Line Care: Avoid Pulling/Pushing and Avoid Pinching/Bending Cleanse incision/area with: Soap & Water Additional Dressing/Incision Instructions:: Remove bulky dressing tomorrow Follow Up Care Please Follow Up With: Branden Lance MD When: Please call to schedule 2 week follow up appointment. [phone] Test Results: Test results from this visit will be discussed in further detail at your follow- up appointment, if applicable. Discharge Plan Admission Attending Provider: Branden Lance Primary Care Provider: Rayshawn Chaudhary Instructions Print Language: Macedonian Discharge Orders/Prescriptions Prescriptions: New oxycodone 5 mg Tablet 5 - 10 mg PO Q4H PRN PRN (Reason: Pain Score 4-10) 5 Days Qty: 20 0RF No Action estradiol [Estrace] 0.01 % (0.1 mg/gram) cream 1 g VAGINAL MOFR meclizine 25 mg tablet 25 mg PO DAILY PRN (Reason: vertigo) Calcium 600 with Vitamin D3 600 mg-10 mcg (400 unit) tablet,chewable 1 tab PO DAILY nystatin 100,000 unit/gram ointment 1 applic topical DAILY PRN (Reason: SKIN) Mccoy Revive 2 cap PO DAILY cartilage revive 2 cap PO DAILY fenofibric acid (choline) 135 mg capsule,delayed release(DR/EC) 135 mg PO DAILY Patient Comments: Take 1 Capsule by mouth daily pantoprazole 40 mg tablet,delayed release (DR/EC) 40 mg PO DAILY Qty: 14 0RF d-mannose 500 mg capsule 500 mg PO BID boric acid 600 mg suppository 600 mg vaginal WE vitamin E 268 mg (400 unit) capsule 268 mg PO DAILY ascorbic acid (vitamin C) [C-500] 500 mg tablet 500 mg PO DAILY Referrals / Follow Up: Rayshawn Chaudhary NP-C [Primary Care Provider] - Disposition Disposition (needs filled in before D/C Order can be placed): Home, Self Care 02/22/25 0939<Electronically signed by Branden Lance MD>Branden Lance MD CC: HARNESS INSTALLER-C Rayshawn Chaudhary ~ Signed [facility] Work Phone: 1(411) 321-538203-25-2025 Consult note [place] Medical Records Department [address] [place] [address] Anesthesia Postop Eval I 02/22/25 0944 MR#: [id number] Acct: [id number] Name: ALISTAIR ARECHIGA Rep #:[id number] : 1945 79 From: Dia Campbell CRNA PCP: NONA Dickerson Status:REG S DC Y Race: C Location: [place] [address] Anesthesia: Postop Eval I Current Vital Signs Temperature: 97.2 F Pulse Rate: 74 Blood Pressure: 185/76 Respiratory Rate: 12 Pulse Ox: 100 Oxygen Delivery Method: Simple Mask Assessment Airway patent: Yes Spontaneous unlabored respirations: Yes Mental status: Awake nausea: No Vomiting: No Anesthesia Complication: No Fluid Hydration Crystalloid volume administer (ml): 1,000 Total IV fluid infused: 1,000 Progress Note Anesthesia document: Postop Eval 1 completed: Yes 02/22/25 0950 NA> Date _ Dia Campbell CRNA Cosigner Signature: Date CC: ~ Signed [facility]03-25-2025 Discharge summary [facility] Medical Records Department [address] [place] [address] Instructions for Home/Discharge Instructions 02/22/25 0937 MR#: [id number] Acct: [id number] Name: ALISTAIR ARECHIGA Rep #:[id number] : 1945 79 From: Branden joseph MD PCP: EASTON DickersonC Status:REG S DC Discharge Instructions Diet Discharge Diet: Light diet - advance as tolerated Activity Discharge Activity: May Not Drive (for 2-3 days or while taking narcotic pain medications.) and MayShower Lifting Restrictions: 10 lbs for 1 week Additional Activity Instructions:: Alternate ibuprofen and Tylenol for pain control, oxycodone for breakthrough pain Dressing / Incision Call your doctor if your incision/area has: Continuous Slow Oozing, Sudden Increased Bleeding, Increased Pain/ Swelling, Increased Redness, Foul Smelling Discharge and Swelling at the incision site Call your doctor if you observe: Fever of 101 or Higher Suture Line Care: Avoid Pulling/Pushing and Avoid Pinching/Bending Cleanse incision/area with: Soap & Water Additional Dressing/Incision Instructions:: Remove bulky dressing tomorrow Follow Up Care Please Follow Up With: Branden Lance MD When: Please call to schedule 2 week follow up appointment. [phone] Test Results: Test results from this visit will be discussed in further detail at your follow- up appointment, if applicable. Discharge Plan Admission Attending Provider: Branden Lance Primary Care Provider: Rayshawn Chaudhary Instructions Print Language: Macedonian Discharge Orders/Prescriptions Prescriptions: New oxycodone 5 mg Tablet 5 - 10 mg PO Q4H PRN PRN (Reason: Pain Score 4-10) 5 Days Qty: 20 0RF No Action estradiol [Estrace] 0.01 % (0.1 mg/gram) cream 1 g VAGINAL MOFR meclizine 25 mg tablet 25 mg PO DAILY PRN (Reason: vertigo) Calcium 600 with Vitamin D3 600 mg-10 mcg (400 unit) tablet,chewable 1 tab PO DAILY nystatin 100,000 unit/gram ointment 1 applic topical DAILY PRN (Reason: SKIN) Mccoy Revive 2 cap PO DAILY cartilage revive 2 cap PO DAILY fenofibric acid (choline) 135 mg capsule,delayed release(DR/EC) 135 mg PO DAILY Patient Comments: Take 1 Capsule by mouth daily pantoprazole 40 mg tablet,delayed release (DR/EC) 40 mg PO DAILY Qty: 14 0RF d-mannose 500 mg capsule 500 mg PO BID boric acid 600 mg suppository 600 mg vaginal WE vitamin E 268 mg (400 unit) capsule 268 mg PO DAILY ascorbic acid (vitamin C) [C-500] 500 mg tablet 500 mg PO DAILY Referrals / Follow Up: Rayshawn Chaudhary NP-C [Primary Care Provider] - Disposition Disposition (needs filled in before D/C Order can be placed): Home, Self Care 02/22/25 0939Branden Lance MD CC: NONA Chaudhary ~ Signed [facility]03-25-2025 Procedure note [facility] Medical Records Department [address] [place] [address] Operative Report 02/22/25930 MR#: [id number] Acct: [id number] Name: ALISTAIR ARECHIGA Rep #:[id number] : 1945 79 From: Branden joseph MD PCP: NONA Dickerson Status:REG S DC Location: [place] [address] Operative Report (Standard) Operative Information Date of Procedure: 02/22/25 Pre-Operative Diagnosis: Left breast cancer of the central region Post-Operative Diagnosis: Same Surgery/Procedure Performed: 1. Left partial mastectomy 2. Left sentinel lymph node biopsy 3. Injection of blue dye oriental rug repairer: Yes Crystal Grinder: Sera Simental Tasks completed by certified physician's assistant: Opening, Closing and Retracting Type of Anesthesia: General/Regional RN Documented Start/Stop Times: Operation Date: 02/22/25 07:45 Case Time Into Pre-Op 02/22/25 05:58 Out of Pre-Op 02/22/25 07:57 Anesthesia Start 02/22/25 08:00 Into Room 02/22/25 08:00 Procedure Start 02/22/25 08:24 Procedure Start Time: 08:24 Procedure Stop Time: 09:40 Select all DRAINS/GRAFTS/IMPLANTS that apply: None Estimated Blood Loss: 20 Specimen collected: Yes Description of specimen(s) removed: 1. Left partial maxillectomy 2. Left sentinel lymph nodes Description of surgery: Patient was brought back to the operating room and general anesthesia was induced. The breast was prepped and isosulfan blue was injected in the retroareolar space on the left. Next 5 cc of saline were injected as a chaser and the breast was massaged. Next the breast and axilla were prepped and drap mera usual sterile fashion. Maxillary incision was marked and injected with localanesthetic. Incision was made with a scalpel and deepened to the subcutaneous fascia. The fascia was incised. Using probe for radioactivity and checking forblue dye I was able to identify a few sentinel lymph nodes. They were all removed using blunt dissection and clip and ligated. The area was irrigated andsuctioneddry. Pathology did reveal one of the lymph nodes was positive. Next attention was paid to the breast. An elliptical incision was made around the nipple and flaps were raised. The retroareolar region was removed along with the nipple using electrocautery dissection. It was marked and sent for pathology. The cavity was irrigated and suctioned dry and hemostasis was obtained using electrocautery. The incisions were then closed with interrupted 3-0 Vicryl sutures and running 4-0 Monocryl sutures. Dermabond was applied to both incisions. Padding and a Surgi-Bra were applied. Patient was taken to PACU in stable condition. Synoptic Portion: Element Response Options Operation performed with curative intent. Yes Tracer(s) used to identify sentinel nodes in the upfront surgery (non- neoadjuvant) setting (select all that apply). Dye and radioactive tracer Tracer(s) used to identify sentinel nodes in the neoadjuvant setting (select allthat apply). N/A All nodes (colored or non-colored) present at the end of a dye-filled lymphatic channel were removed. Yes All significantly radioactive nodes were removed. Yes All palpably suspicious nodes were removed. Yes Biopsy-proven positive nodes marked with clips prior to chemotherapy were identified and removed. N/A Surgical Findings: none Complications Complications: No Admit VTE Documentation VTE Mechan Device Prophylaxis: SCD's 02/22/25 0936 Cosigner Signature (if applicable): CC: NONA Chaudhary; Dr. Branden Lance MD~ Signed [facility]03-25-2025 Consult note Author Shaquille Mathis [facility] Note Date/Time February 22, 2025 7:1 0[facility] Medical Records Department [address] [place] [address] Pre-Anesthesia Evaluation 02/22/25 0703 MR#: [id number] Acct: [id number] Name: ALISTAIR ARECHIGA Rep #:[id number] : 1945 79 From: Shaquille Mathis MD PCP: NONA Dickerson Status:REG S DC Y Race: C Location: [place] [address] ASA Classification* ASA Classification ASA Classification: 2 Assessment & Plan Anesthesia* Anesthesia Assessment Anesthesia Assessment: Discussed sedation and/or anesthesia options, risks, benefits, and alternatives with patient/parents/legal guardian/POA. Questions invited. The patient/parents/legal guardian/POA seems to understand and agrees to proceedwith anesthesia plan. Reviewed the physical assessment, medical history, allergy history and patient home medications list prior to surgery/procedure/anesthetic and documented any changes. Performed airway and anesthesia risk assessments. Anesthesia Type Anesthesia Type: General History Source History Obtained from:: Patient and Chart Anesthesia Focused Assessment* Temperature: 97.9 F Pulse Rate: 74 Blood Pressure: 150/94 Respiratory Rate: 16 Pulse Ox: 100 Oxygen Delivery Method: Room Air Airway Assessment Mouth opens: >3 cm Mallampati Score: IV Teeth Condition: Caps/Crowns (Patient has a crown left lower molar. It is tight.) Neck Range of motion (ROM): Limited ROM Comment: Decreased thyromental distance Focused Labs Anesthesia Preop lab: CBC WBC 4.5 K/mm3 (4.4-11.0) 10/10/23 07:29 10/10/23 RBC 4.58 M/mm3 (4.2-5.4) 10/10/23 07:29 10/10/23 Hgb 12.6 g/dL (12.0-15.0) 10/10/23 07:29 10/10/23 Hct 40.0 % (37-47) 10/10/23 07:29 10/10/23 Plt Count 376 K/mm3 (150-450) 10/10/23 07:29 10/10/23 CHEMISTRY Potassium 4.3 mmol/L (3.5-5.1) 06/29/24 07:06/29/24 Sodium 141 mmol/L (136-145) 06/29/24 07:06/29/24 Magnesium 2.2 mg/dL (1.6-2.6) 05/16/22 01:22 05/16/22 Phosphorus 3.2 mg/dL (2.5-4.9) 07/16/23 09:07/16/23 BUN 18 mg/dL (7-18) 06/29/24 07:06/29/24 Creatinine 1.35 mg/dL (0.55-1.02) H 06/29/24 07: Glucose 89 mg/dL (74-106) 06/29/24 07:06/29/24 TSH 3.87 uIU/mL (0.358-3.74) H 06/29/24 07:06/02 COAG PT 13.5 SECONDS (11.7-14.9) 04/23/16 21:05 Pre-Assessment Diagnosis/Proposed Procedure Planned Operative Procedure(s): LEFT PARTIAL MASTECTOMY SLN BX BLUE DYE Anesthesia History Anesthesia History - tile ditcher: Anesthesia History - tile ditcher Hx Hospitalization No 02/15/25 11:03 Any Problems With Anesthesia No 02/15/25 11:03 Cholinesterase deficiency No 02/15/25 11:03 You/Your Family Experience No 02/15/25 11:03 fever (hyperthermia) with Relationship Recent Exposure to Contagious No 02/22/25 06:27 Disease Does patient have nerve No 02/15/25 11:03 stimulator Patient instructed to have device shut off --Does patient have Pacemaker No 02/22/25 06:27 or ICD? When Was Last Pacemaker Check QUESTION #4 FULL TEXT: You/Your Family Experience fever (hyperthermia) with Anesthesia Last Oral Intake Last Oral intake: Last Oral Intake NPO since 03:00 02/22/25 06:27 Meds taken in AM with sips of Yes 02/22/25 06:27 water? Meds patient instructed to MECLIZINE 0130 02/22/25 06:27 take am of surgery Any additional information?: Yes NPO since: 03:30 (Patient had apple juice at 3:30 AM) PONV PONV - tile ditcher: PONV - tile ditcher Female Yes 02/15/25 11:03 HX of Motion Sickness Yes 02/15/25 11:03 HX of N/V After Surgery No 02/15/25 11:03 Non-Smoker Yes 02/15/25 11:03 Duration of Surgery greater Yes 02/15/25 11:03 than 60 minutes Number of Risk Factors 4 02/15/25 11:03 PONV Score Severe Risk 02/15/25 11:03 Height & Weight Height & Weight: Anesthesia: Height & Weight Height 5 ft 1 in 02/22/25 06:27 Weight: 80 kg 02/22/25 06:27 Body Mass Index (BMI) 33.3 02/22/25 06:27 Respiratory Assessment Respiratory Assessment - tile ditcher: Respiratory Tract Infection Hx - tile ditcher Hx Respiratory Tract Infection No 02/15/25 11:03 STOP Sleep Apnea STOP Sleep Apnea - tile ditcher: STOP Sleep Apnea - tile ditcher Hx Hypertension No 02/15/25 11:03 Hx Sleep Apnea No 02/15/25 11:03 CPAP BIPAP Do you snore loudly (louder No 02/15/25 11:03 than talking or can be heard Do you often feel tired/ No 02/15/25 11:03 fatigued/ sleepy during daytime? Has anyone observed you stop No 02/15/25 11:03 breathing during sleep? STOP Results Negative 02/15/25 11:03 QUESTION #5 FULL TEXT : Do you snore loudly (louder than talking or can be heard through closed doors)? Tobacco Use History Tobacco Use History - tile ditcher: Tobacco Use History - tile ditcher Tobacco Use Non-smoker 04/14/21 19:48 Smoking Status Never smoker 02/15/25 11:03 Hx Tobacco Use No 02/15/25 11:03 Years Smoking Packs Smoked per Day Smoking Cessation Date was within the last 15 years Hx Smoking Cessation Date Hx Smoking Cessation Counseling Hematologic Medial History Hematologic Hx - tile ditcher: Hematologic Medical Hx - excellence leader Hx of Blood Transfusion No 02/15/25 11:03 Hx of Transfusion in last 3 No 02/15/25 11:03 Months Date of Last Transfusion (if within last 3 months) Ever experience any problems No 02/15/25 11:03 with transfusion(s)? Specify any problems Hx of Preganancy in last 3 No 02/15/25 11:03 Months Nurse Filling Out Transfusion DSCHRIBER 02/15/25 11:03 & Questions: Date: 02/15/25 02/15/25 11:03 Time: 11:04 02/15/25 11:03 Patient unable to answer at this time (ie. confused, unrespo /Reproduction History /Reproductive History - tile ditcher: /Reproductive Hx- tile ditcher Hx Now Gestational Age (in weeks): EDC: Hx Hx Para Hx Section SAB No 02/15/25 11:03 Active Medications Active Medications: Current Medications Generic Name Dose Route Start Last Admin Trade Name Freq PRN Reason Stop Dose Admin Clindamycin Phosphate 900 mg in 50 mls @ 75 mls/hr 02/22/25 07:45 Cleocin IV 02/22/25 08:24 PREOP ONE Sodium Chloride 1,000 mls @ 15 mls/hr 02/22/25 06:00 02/22/25 06:33 IV 02/27/25 19:19 15 mls/hr .Q48H ASHISH Administration PFSH Medical History Cancer Wears glasses Post-menopausal Arthritis Low iron Fatty liver History of hiatal hernia Non-smoker History of pain when walking History of echocardiogram History of stress test Osteoporosis GERD (gastroesophageal reflux disease) Vertigo Hyperlipidemia Home Medications ?Medication ?Instructions ?Recorded ?Last Taken ?Type estradiol 0.01% (0.1 mg/gram) 1 g vaginal MOFR 8 02/21/25 History vaginal cream (Estrace) fenofibric acid (choline) 135 mg 135 mg PO DAILY 02/2802/21/25 History capsule,delayed release calcium 600 mg (as carbonate)-vit 1 tab PO DAILY 06/0502/21/25 History D3 10 mcg (400 unit) chewable tablet (Calcium 600 with Vitamin D3) meclizine 25 mg tablet 25 mg PO DAILY PRN vertigo 0 06/05/22 02/22/25 01:30 History pantoprazole 40 mg tablet,delayed 40 mg PO DAILY #14 t abs 03/09/23 02/21/25 Rx release nystatin 100,000 unit/gram topical 1 applic topical DA EMA PRN SKIN 04/20/24 01/27/25 History ointment Mccoy Revive 2 cap PO DAILY 10/18/2401/30 History cartilage revive 2 cap PO DAILY 10/18/2401/30 History ascorbic acid (vitamin C) 500 mg 500 mg PO DAILY 01/2002/21/25 History tablet (C-500) boric acid 600 mg vaginal 600 mg vaginal WE 01/20/25 0 02/16/25 History suppository d-mannose 500 mg capsule 500 mg PO BID 01/20/2502/21 History vitamin E 268 mg (400 unit) capsule 268 mg PO DAILY 02/21/25 History Allergy/AdvReac Type Severity Reaction Status Date / Time sulfamethoxazole (From Allergy Mild Other Verified 02/22/25 06:24 Bactrim) trimethoprim (From Bactrim) Allergy Mild Other Verified 02/22/25 06:24 chlorhexidine (From Allergy Rash Verified 02/22/25 06:24 ChloraPrep Clear) potassium clavulanate (From Allergy Rash Verified 02/15/25 11:01 Augmentin) amoxicillin trihydrate (From AdvReac Rash Verified 02/15/25 11:01 Augmentin) Family History Father Heart disease CVA (cerebral vascular accident) Surgical History History of breast lump/mass excision History of surgery on wrist History of surgery on wrist History of esophagogastroduodenoscopy (EGD) Hx of colonoscopy H/O tubal ligation Social History Smoking Status: Never smoker alcohol intake: current details: social substance use type: does not use caffeine: Yes frequency: 1-2 times per week seatbelt use: always do you feel safe at home: Yes additional social history: (Prasanna) Review of Systems (Anesthesia) ROS Narrative System reviewed and no additional complaints, except as documented. 02/22/25 0710 <Electronically signed by Shaquille henriquez MD> Date _ Shaquille Mathis MD Cosigner Signature: Date CC: ~ Signed [facility] Work Phone: 1(522) 681-615703-25-2025 History and physical note Author Branden Lance [facility] Note Date/Time February 22, 2025 6:4 4am [facility] Medical Records Department [address] [place] [address] History & Physical Exam 02/22/25 0644 MR#: [id number] Acct: [id number] Name: ALISTAIR ARECHIGA Rep #:[id number] : 1945 79 From: Branden joseph MD PCP: Rayshawn Chaudhary NP-Melissa Status:REG S DC Location: [place] [address] History and Physical Date of Admission: 02/22/25 Intake Vital Signs 01/28/2507:00 02/12/2512:56 Height 5 ft 1 in BP 160/96 H Blood Pressure Location Rt brachial Position Sitting Respiration 17 Pulse 76 Pulse Source Monitor Pulse Oximetry (%) 97 Oxygen Delivery Method room air Intake Visit Reasons: BREAST BIOPSY DOS 01/28 Chief Complaint: breast biopsy dos 01/28 Allergies sulfamethoxazole (From Bactrim) Allergy (Mild, Verified 02/11/25 12:57) Othertrimethoprim (From Bactrim) Allergy (Mild, Verified 02/11/25 12:57) Otherchlorhexidine (From ChloraPrep Clear) Allergy (Verified 02/11/25 12:57) Rashisopropyl alcohol (From ChloraPrep Clear) Allergy (Verified 02/11/25 12:57) Rashpotassium clavulanate (From Augmentin) Allergy (Verified 02/11/25 12:57) Rashamoxicillin trihydrate (From Augmentin) Adverse Reaction (Verified 02/11/25 12:57) Rash Medications ?Medication ?Instructions ?Recorded ?Confirmed ?Type estradiol 0.01% (0.1 mg/gram) 1 g vaginal MOFR 12/17/17 02/11/25 Histo ry vaginal cream (Estrace) fenofibric acid (choline) 135 mg 135 mg PO DAILY 02/28/22 02/11/25 Histor y capsule,delayed release calcium 600 mg (as carbonate)-vit 1 tab PO DAILY 06/05/22 02/11/25 History D3 10 mcg (400 unit) chewable tablet (Calcium 600 with Vitamin D3) meclizine 25 mg tablet 25 mg PO DAILY PRN vertigo 06/05/2201/29 History pantoprazole 40 mg tablet,delayed 40 mg PO DAILY #14 tabs 03/09/23 5 Rx release nystatin 100,000 unit/gram topical 1 applic topical DAILY PRN SKIN 04/20/24 02/11/25 History ointment Mccoy Revive 2 cap PO DAILY 10/18/24 02/11/25 History cartilage revive 2 cap PO DAILY 10/18/24 02/11/25 History ascorbic acid (vitamin C) 500 mg 500 mg PO DAILY 01/20/25 02/11/25 Histor y tablet (C-500) boric acid 600 mg vaginal 600 mg vaginal WE 01/20/25 02/11/25 Hist ory suppository d-mannose 500 mg capsule 500 mg PO BID 01/20/25 02/11/25 History vitamin E 268 mg (400 unit) capsule 268 mg PO DAILY 01/20/25 02/11/25 Histor y Have you fallen in the past year?: No PFSH Medical History (Updated 02/11/25 @ 13:[address] Branden Lance MD) Wears glasses Post-menopausal Arthritis Low iron Fatty liver History of hiatal hernia Non-smoker History of pain when walking History of echocardiogram History of stress test Osteoporosis GERD (gastroesophageal reflux disease) Vertigo Hyperlipidemia Surgical History (Updated 02/11/25 @ 12:56 by Belem Thorpe) History of breast lump/mass excision History of surgery on wrist History of surgery on wrist History of esophagogastroduodenoscopy (EGD) Hx of colonoscopy H/O tubal ligation Family History Father Heart disease CVA (cerebral vascular accident) Social History Smoking Status: Never smoker alcohol intake: current details: social substance use type: does not use caffeine: Yes frequency: 1-2 times per week seatbelt use: always do you feel safe at home: Yes additional social history: (Prasanna) HPI HPI HPI: Patient is a 79-year-old female with left breast cancer the patient had a mass behind her left nipple that was excised for excisional biopsy and this came backas invasive ductal carcinoma involving the skin. The pathology revealed that itwas invasive ductal carcinoma which was ER/ND positive and extending to the margins. She is here to discuss completion surgery ROS General General: Yes breast cancer; No weight change, appetite, fatigue, colon cancer or weakness HEENT HEENT: No difficulty swallowing, eye injury, eye surgery, swollen glands or hoarseness Endo Endocrine: No thyroid disease, diabetes mellitus, thyroid cancer, Hair loss, heat intolerance or cold intolerance Skin Skin: No rash or changing moles Breast Breast: No left breast lump, right breast lump, nipple discharge, breast pain, abnormal mammogram, abnormal US or breast enlargement Musc Musculoskeletal: Yes back problems and arthritis; No rheumatoid arthritis, gout or joint pain Cardio Cardiovascular: No murmur, pacemaker, heart disease, atrial fibrillation, high blood pressure, heart attack, heart stent, palpitations, shortness of breath with exertion or chest pain Psych Psychiatric: No depression, anxiety or hearing voices Resp Respiratory: No shortness of breath, No sleep apnea, No cough, No COPD, No asthma, No emphysema and No wheezing Gastro Gastrointestinal: No abdominal pain, Yes nausea or vomiting, No diarrhea, No constipation, No blood in stool, Yes acid reflux, No hemorrhoids, No ulcers, No gallbladder problem and No black,tarry stools Titi Hematologic: No blood thinners, No blood disorders, No bleeding, No anemia and No blood clots Neuro Neurologic: No system reviewed and no additional complaints, except as documented, No as per HPI, No abnormal gait, No abnormal hearing, No abnormal movements, No abnormal speech, No behavioral changes, No burning sensations, No confusion, No convulsions, No disequilibrium, No dizziness, No localized weakness, No frequent falls, No headache(s), No lack of coordination, No loss ofvision, No memory loss, Yes numbness, No other visual disturbances, No radicularpain, No restless legs, No sensory deficit, No syncope, Yes tingling, No tremor(s), No weakness and No other Exam Const General: cooperative Orientation: alert and oriented x3 HENMT Head: normal to inspection Neck Neck: normal visual inspection and full ROM Chest Chest palpation & inspection: normal inspection of the chest Resp Effort & Inspection: normal respiratory effort Auscultation: clear to auscultation bilaterally Cardio Rate: regular rate Rhythm: regular rhythm GI Inspection: non-distended Palpation: soft and nontender Skin General: no rashes or lesions noted Neuro General: patient alert and patient oriented x3 Extrem General: full ROM Psych Appearance: grossly normal Mental Status: mental status grossly normal Assessment and Plan Assessment and Plan (1) Breast cancer, left breast: Status: Acute Qualifiers: Breast location: central portion of breast Estrogen receptor status: positive Patient sex: female Qualified Code(s): C50.112 - 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; Z17.0 - Estrogen receptor positive status [ER+] Plan: Patient has left breast cancer behind the left nipple. The mass was excised during excisional biopsy but was found to be cancer. I discussed completion surgery with her. I would like to perform a partial mastectomy of the left breast where I will remove the nipple areolar complex and margins behind the nipple. The patient would like partial mastectomy instead of full mastectomy. I discussed radiation treatment. I also discussed performing sentinel lymph node biopsy on the left. I discussed the risks and benefits of this as well. Patient understands all the risks and is willing to proceed. Branden Lance MD Pager: [facility] [address] [place] [address], [address] [place] [address] Office: I have examined the patient and the H&P has been reviewed. There are no clinical changes since date of exam. 02/22/25 0644 <Electronically signed by Branden Lance MD> Cosigner Signature (if applicable): CC: HARNESS INSTALLERCandida Chuadhary; Dr. Branden Lance MD~ Signed [facility] Work Phone: 1(579) 434-737103-25-2025 Consult note [place] Medical Records Department [address] [place] [address] Pre-Anesthesia Evaluation 02/22/25 0703 MR#: [id number] Acct: [id number] Name: ALISTAIR ARECHIGA Rep #:[id number] : 1945 79 From: Shaquille Mathis MD PCP: NONA Dickerson Status:REG S DC Y Race: C Location: [place] [address] ASA Classification* ASA Classification ASA Classification: 2 Assessment & Plan Anesthesia* Anesthesia Assessment Anesthesia Assessment: Discussed sedation and/or anesthesia options, risks, benefits, and alternatives with patient/parents/legal guardian/POA. Questions invited. The patient/parents/legal guardian/POA seems to understand and agrees to proceedwith anesthesia plan. Reviewed the physical assessment, medical history, allergy history and patient home medications list prior to surgery/procedure/anesthetic and documented any changes. Performed airway and anesthesia risk assessments. Anesthesia Type Anesthesia Type: General History Source History Obtained from:: Patient and Chart Anesthesia Focused Assessment* Temperature: 97.9 F Pulse Rate: 74 Blood Pressure: 150/94 Respiratory Rate: 16 Pulse Ox: 100 Oxygen Delivery Method: Room Air Airway Assessment Mouth opens: >3 cm Mallampati Score: IV Teeth Condition: Caps/Crowns (Patient has a crown left lower molar. It is tight.) Neck Range of motion (ROM): Limited ROM Comment: Decreased thyromental distance Focused Labs Anesthesia Preop lab: CBC WBC 4.5 K/mm3 (4.4-11.0) 10/10/23 07:29 10/10/23 RBC 4.58 M/mm3 (4.2-5.4) 10/10/23 07:29 10/10/23 Hgb 12.6 g/dL (12.0-15.0) 10/10/23 07:29 10/10/23 Hct 40.0 % (37-47) 10/10/23 07:29 10/10/23 Plt Count 376 K/mm3 (150-450) 10/10/23 07:29 10/10/23 CHEMISTRY Potassium 4.3 mmol/L (3.5-5.1) 06/29/24 07:33 06/29/24 Sodium 141 mmol/L (136-145) 06/29/24 07:06/29/24 Magnesium 2.2 mg/dL (1.6-2.6) 05/16/22 01:22 05/16/22 Phosphorus 3.2 mg/dL (2.5-4.9) 07/16/23 09:24 07/16/23 BUN 18 mg/dL (7-18) 06/29/24 07:06/29/24 Creatinine 1.35 mg/dL (0.55-1.02) H 06/29/24 07: Glucose 89 mg/dL (74-106) 06/29/24 07:06/29/24 TSH 3.87 uIU/mL (0.358-3.74) H 06/29/24 07:06/02 COAG PT 13.5 SECONDS (11.7-14.9) 04/23/16 21:05 Pre-Assessment Diagnosis/Proposed Procedure Planned Operative Procedure(s): LEFT PARTIAL MASTECTOMY SLN BX BLUE DYE Anesthesia History Anesthesia History - tile ditcher: Anesthesia History - tile ditcher Hx Hospitalization No 02/15/25 11:03 Any Problems With Anesthesia No 02/15/25 11:03 Cholinesterase deficiency No 02/15/25 11:03 You/Your Family Experience No 02/15/25 11:03 fever (hyperthermia) with Relationship Recent Exposure to Contagious No 02/22/25 06:27 Disease Does patient have nerve No 02/15/25 11:03 stimulator Patient instructed to have device shut off --Does patient have Pacemaker No 02/22/25 06:27 or ICD? When Was Last Pacemaker Check QUESTION #4 FULL TEXT: You/Your Family Experience fever (hyperthermia) with Anesthesia Last Oral Intake Last Oral intake: Last Oral Intake NPO since 03:00 02/22/25 06:27 Meds taken in AM with sips of Yes 02/22/25 06:27 water? Meds patient instructed to MECLIZINE 0130 02/22/25 06:27 take am of surgery Any additional information?: Yes NPO since: 03:30 (Patient had apple juice at 3:30 AM) PONV PONV - tile ditcher: PONV - tile ditcher Female Yes 02/15/25 11:03 HX of Motion Sickness Yes 02/15/25 11:03 HX of N/V After Surgery No 02/15/25 11:03 Non-Smoker Yes 02/15/25 11:03 Duration of Surgery greater Yes 02/15/25 11:03 than 60 minutes Number of Risk Factors 4 02/15/25 11:03 PONV Score Severe Risk 02/15/25 11:03 Height & Weight Height & Weight: Anesthesia: Height & Weight Height 5 ft 1 in 02/22/25 06:27 Weight: 80 kg 02/22/25 06:27 Body Mass Index (BMI) 33.3 02/22/25 06:27 Respiratory Assessment Respiratory Assessment - tile ditcher: Respiratory Tract Infection Hx - tile ditcher Hx Respiratory Tract Infection No 02/15/25 11:03 STOP Sleep Apnea STOP Sleep Apnea - tile ditcher: STOP Sleep Apnea - tile ditcher Hx Hypertension No 02/15/25 11:03 Hx Sleep Apnea No 02/15/25 11:03 CPAP BIPAP Do you snore loudly (louder No 02/15/25 11:03 than talking or can be heard Do you often feel tired/ No 02/15/25 11:03 fatigued/ sleepy during daytime? Has anyone observed you stop No 02/15/25 11:03 breathing during sleep? STOP Results Negative 02/15/25 11:03 QUESTION #5 FULL TEXT : Do you snore loudly (louder than talking or can be heard through closeddoors)? Tobacco Use History Tobacco Use History - tile ditcher: Tobacco Use History - tile ditcher Tobacco Use Non-smoker 04/14/21 19:48 Smoking Status Never smoker 02/15/25 11:03 Hx Tobacco Use No 02/15/25 11:03 Years Smoking Packs Smoked per Day Smoking Cessation Date was within the last 15 years Hx Smoking Cessation Date Hx Smoking Cessation Counseling Hematologic Medial History Hematologic Hx - tile ditcher: Hematologic Medical Hx - excellence leader Hx of Blood Transfusion No 02/15/25 11:03 Hx of Transfusion in last 3 No 02/15/25 11:03 Months Date of Last Transfusion (if within last 3 months) Ever experience any problems No 02/15/25 11:03 with transfusion(s)? Specify any problems Hx of Preganancy in last 3 No 02/15/25 11:03 Months Nurse Filling Out Transfusion DSCHRIBER 02/15/25 11:03 & Questions: Date: 02/15/25 02/15/25 11:03 Time: 11:04 02/15/25 11:03 Patient unable to answer at this time (ie. confused, unrespo /Reproduction History /Reproductive History - tile ditcher: /Reproductive Hx- tile ditcher Hx Now Gestational Age (in weeks): EDC: Hx Hx Para Hx Section SAB No 02/15/25 11:03 Active Medications Active Medications: Current Medications Generic Name Dose Route Start Last Admin Trade Name Freq PRN Reason Stop Dose Admin Clindamycin Phosphate 900 mg in 50 mls @ 75 mls/hr 02/22/25 07:45 Cleocin IV 02/22/25 08:24 PREOP ONE Sodium Chloride 1,000 mls @ 15 mls/hr 02/22/25 06:00 02/22/25 06:33 IV 02/27/25 19:19 15 mls/hr .Q48H ASHISH Administration PFSH Medical History Cancer Wears glasses Post-menopausal Arthritis Low iron Fatty liver History of hiatal hernia Non-smoker History of pain when walking History of echocardiogram History of stress test Osteoporosis GERD (gastroesophageal reflux disease) Vertigo Hyperlipidemia Home Medications ?Medication ?Instructions ?Recorded ?Last Taken ?Type estradiol 0.01% (0.1 mg/gram) 1 g vaginal MOFR 8 02/21/25 History vaginal cream (Estrace) fenofibric acid (choline) 135 mg 135 mg PO DAILY 02/2802/21/25 History capsule,delayed release calcium 600 mg (as carbonate)-vit 1 tab PO DAILY 06/0502/21/25 History D3 10 mcg (400 unit) chewable tablet (Calcium 600 with Vitamin D3) meclizine 25 mg tablet 25 mg PO DAILY PRN vertigo 0 06/05/22 02/22/25 01:30 History pantoprazole 40 mg tablet,delayed 40 mg PO DAILY #14 t abs 03/09/23 02/21/25 Rx release nystatin 100,000 unit/gram topical 1 applic topical DA EMA PRN SKIN 04/20/24 01/27/25 History ointment Mccoy Revive 2 cap PO DAILY 10/18/2401/30 History cartilage revive 2 cap PO DAILY 10/18/2401/30 History ascorbic acid (vitamin C) 500 mg 500 mg PO DAILY 01/2002/21/25 History tablet (C-500) boric acid 600 mg vaginal 600 mg vaginal WE 01/20/25 0 02/16/25 History suppository d-mannose 500 mg capsule 500 mg PO BID 01/20/2502/21 History vitamin E 268 mg (400 unit) capsule 268 mg PO DAILY 02/21/25 History Allergy/AdvReac Type Severity Reaction Status Date / Time sulfamethoxazole (From Allergy Mild Other Verified 02/22/25 06:24 Bactrim) trimethoprim (From Bactrim) Allergy Mild Other Verified 02/22/25 06:24 chlorhexidine (From Allergy Rash Verified 02/22/25 06:24 ChloraPrep Clear) potassium clavulanate (From Allergy Rash Verified 02/15/25 11:01 Augmentin) amoxicillin trihydrate (From AdvReac Rash Verified 02/15/25 11:01 Augmentin) Family History Father Heart disease CVA (cerebral vascular accident) Surgical History History of breast lump/mass excision History of surgery on wrist History of surgery on wrist History of esophagogastroduodenoscopy (EGD) Hx of colonoscopy H/O tubal ligation Social History Smoking Status: Never smoker alcohol intake: current details: social substance use type: does not use caffeine: Yes frequency: 1-2 times per week seatbelt use: always do you feel safe at home: Yes additional social history: (Prasanna) Review of Systems (Anesthesia) ROS Narrative System reviewed and no additional complaints, except as documented. 02/22/25 0710 florence GARZA> Date _ Shaquille Mathis MD Cosigner Signature: Date CC: ~ Signed [facility]03-25-2025 History and physical note [facility] Medical Records Department [address] [place] [address] History & Physical Exam 02/22/25 0644 MR#: [id number] Acct: [id number] Name: ALISTAIR ARECHIGA Rep #:[id number] : 1945 79 From: Branden joseph MD PCP: Rayshawn Chaudhary HARNESS INSTALLER-C Status:REG S DC Location: [place] [address] History and Physical Date of Admission: 02/22/25 Intake Vital Signs 01/28/2507:00 02/12/2512:56 Height 5 ft 1 in BP 160/96 H Blood Pressure Location Rt brachial Position Sitting Respiration 17 Pulse 76 Pulse Source Monitor Pulse Oximetry (%) 97 Oxygen Delivery Method room air Intake Visit Reasons: BREAST BIOPSY DOS 01/28 Chief Complaint: breast biopsy dos 01/28 Allergies sulfamethoxazole (From Bactrim) Allergy (Mild, Verified 02/11/25 12:57) Othertrimethoprim (From Bactrim) Allergy (Mild, Verified 02/11/25 12:57) Otherchlorhexidine (From ChloraPrep Clear) Allergy (Verified 02/11/25 12:57) Rashisopropyl alcohol (From ChloraPrep Clear) Allergy (Verified 02/11/25 12:57) Rashpotassium clavulanate (From Augmentin) Allergy (Verified 02/11/25 12:57) Rashamoxicillin trihydrate (From Augmentin) Adverse Reaction (Verified 02/11/25 12:57) Rash Medications ?Medication ?Instructions ?Recorded ?Confirmed ?Type estradiol 0.01% (0.1 mg/gram) 1 g vaginal MOFR 12/17/17 02/11/25 Histo ry vaginal cream (Estrace) fenofibric acid (choline) 135 mg 135 mg PO DAILY 02/28/22 02/11/25 Histor y capsule,delayed release calcium 600 mg (as carbonate)-vit 1 tab PO DAILY 06/05/22 02/11/25 History D3 10 mcg (400 unit) chewable tablet (Calcium 600 with Vitamin D3) meclizine 25 mg tablet 25 mg PO DAILY PRN vertigo 06/05/2201/29 History pantoprazole 40 mg tablet,delayed 40 mg PO DAILY #14 tabs 03/09/23 5 Rx release nystatin 100,000 unit/gram topical 1 applic topical DAILY PRN SKIN 04/20/24 02/11/25 History ointment Mccoy Revive 2 cap PO DAILY 10/18/24 02/11/25 History cartilage revive 2 cap PO DAILY 10/18/24 02/11/25 History ascorbic acid (vitamin C) 500 mg 500 mg PO DAILY 01/20/25 02/11/25 Histor y tablet (C-500) boric acid 600 mg vaginal 600 mg vaginal WE 01/20/25 02/11/25 Hist ory suppository d-mannose 500 mg capsule 500 mg PO BID 01/20/25 02/11/25 History vitamin E 268 mg (400 unit) capsule 268 mg PO DAILY 01/20/25 02/11/25 Histor y Have you fallen in the past year?: No PFSH Medical History (Updated 02/11/25 @ 13:[address] Branden Lance MD) Wears glasses Post-menopausal Arthritis Low iron Fatty liver History of hiatal hernia Non-smoker History of pain when walking History of echocardiogram History of stress test Osteoporosis GERD (gastroesophageal reflux disease) Vertigo Hyperlipidemia Surgical History (Updated 02/11/25 @ 12:56 by Belem Thorpe) History of breast lump/mass excision History of surgery on wrist History of surgery on wrist History of esophagogastroduodenoscopy (EGD) Hx of colonoscopy H/O tubal ligation Family History Father Heart disease CVA (cerebral vascular accident) Social History Smoking Status: Never smoker alcohol intake: current details: social substance use type: does not use caffeine: Yes frequency: 1-2 times per week seatbelt use: always do you feel safe at home: Yes additional social history: (Prasanna) HPI HPI HPI: Patient is a 79-year-old female with left breast cancer the patient had a mass behind her left nipple that was excised for excisional biopsy and this came backas invasive ductal carcinoma involving the skin. The pathology revealed that itwas invasive ductal carcinoma which was ER/ND positive and extending to the margins. She is here to discuss completion surgery ROS General General: Yes breast cancer; No weight change, appetite, fatigue, colon cancer or weakness HEENT HEENT: No difficulty swallowing, eye injury, eye surgery, swollen glands or hoarseness Endo Endocrine: No thyroid disease, diabetes mellitus, thyroid cancer, Hair loss, heat intolerance or cold intolerance Skin Skin: No rash or changing moles Breast Breast: No left breast lump, right breast lump, nipple discharge, breast pain, abnormal mammogram, abnormal US or breast enlargement Musc Musculoskeletal: Yes back problems and arthritis; No rheumatoid arthritis, gout or joint pain Cardio Cardiovascular: No murmur, pacemaker, heart disease, atrial fibrillation, high blood pressure, heart attack, heart stent, palpitations, shortness of breath with exertion or chest pain Psych Psychiatric: No depression, anxiety or hearing voices Resp Respiratory: No shortness of breath, No sleep apnea, No cough, No COPD, No asthma, No emphysema andNo wheezing Gastro Gastrointestinal: No abdominal pain, Yes nausea or vomiting, No diarrhea, No constipation, No bloodin stool, Yes acid reflux, No hemorrhoids, No ulcers, No gallbladder problem and No black,tarry stools Titi Hematologic: No blood thinners, No blood disorders, No bleeding, No anemia and No blood clots Neuro Neurologic: No system reviewed and no additional complaints, except as documented, No as per HPI, No abnormal gait, No abnormal hearing, No abnormal movements, No abnormal speech, No behavioral changes, No burning sensations, No confusion, No convulsions, No disequilibrium, No dizziness, No localized weakness, No frequent falls, No headache(s), No lack of coordination, No loss ofvision, No memoryloss, Yes numbness, No other visual disturbances, No radicularpain, No restless legs, No sensory deficit, No syncope, Yes tingling, No tremor(s), No weakness and No other Exam Const General: cooperative Orientation: alert and oriented x3 HENMT Head: normal to inspection Neck Neck: normal visual inspection and full ROM Chest Chest palpation & inspection: normal inspection of the chest Resp Effort & Inspection: normal respiratory effort Auscultation: clear to auscultation bilaterally Cardio Rate: regular rate Rhythm: regular rhythm GI Inspection: non-distended Palpation: soft and nontender Skin General: no rashes or lesions noted Neuro General: patient alert and patient oriented x3 Extrem General: full ROM Psych Appearance: grossly normal Mental Status: mental status grossly normal Assessment and Plan Assessment and Plan (1) Breast cancer, left breast: Status: Acute Qualifiers: Breast location: central portion of breast Estrogen receptor status: positive Patient sex: female Qualified Code(s): C50.112 - 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; Z17.0 - Estrogen receptor positive status [ER+] Plan: Patient has left breast cancer behind the left nipple. The mass was excised during excisional biopsy but was found to be cancer. I discussed completion surgery with her. I would like to perform a partial mastectomy of the left breast where I will remove the nipple areolar complex and margins behindthe nipple. The patient would like partial mastectomy instead of full mastectomy. I discussed radiation treatment. I also discussed performing sentinel lymph node biopsy on the left. I discussed the risks and benefits of this as well. Patient understands all the risks and is willing to proceed. Branden Lance MD Pager: [facility] [address] [place] [address], [address] [place] [address] Office: I have examined the patient and the H&P has been reviewed. There are no clinical changes since date of exam. 02/22/25 0644 Cosigner Signature (if applicable): CC: NONA Chaudhary; Dr. 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 April 04, 2025 10 :12am Hypertension chronic April 04 10:12am Breast cancer, left breast acute April 20, 2025 9:41am Breast cancer, left breast acute April 21, 2025 9:43am Encounter for education acute M ay 2024 9:43am [facility] Work Phone: 1(524) 882-911103-14-2025 Evaluation note* Diagnosis Onset Date Resolution Status Admit Date Breast cancer, left breast acute February 11, 2025 12:44pm Breast cancer, left breast acute March 09, 2025 1:53pm Breast cancer, left breast acute March 16, 2025 9:10am Breast cancer, left breast acute March 25, 2025 10:13am Encounter for pessary maintenance acute April 04, 2025 10 :12am Vaginal pessary in situ acute M ay 2024 10:12am 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 April 04, 2025 10 :12am Hypertension chronic April 04 10:12am Breast cancer, left breast acute April 20, 2025 9:41am Breast cancer, left breast acute April 21, 2025 9:43am Encounter for education acute M ay 2024 9:43am Breast cancer, left breast acute May 26, 2025 9:44am [facility] Work Phone: 1(574) 350-765002-28-2025 [facility]02-03-2025 Evaluation note* Diagnosis Onset Date Resolution Status Admit Date Encounter for pessary maintenance acute January 03 10:11am Vaginal pessary in situ acute F ebruary 2024 10:11am 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 January 03 10:11am Breast lesion on mammography acute January 18, 2025 8:20am Breast cancer, left breast acute February 11, 2025 12:44pm [facility] Work Phone: 1(163) 767-359002-03-2025 Evaluation note* Diagnosis Onset Date Resolution Status Admit Date Encounter for pessary maintenance acute January 03 10:11am Vaginal pessary in situ acute F ebruary 2024 10:11am 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 January 03 10:11am Breast lesion on mammography deleted January 18, 2025 8:20am Breast cancer, left breast acute February 11, 2025 12:44pm Breast cancer, left breast acute March 09, 2025 1:53pm Breast cancer, left breast acute March 16, 2025 9:10am Breast cancer, left breast acute March 25, 2025 10:13am Encounter for pessary maintenance acute April 04, 2025 10 :12am Vaginal pessary in situ acute M ay 2024 10:12am 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 April 04, 2025 10 :12am Hypertension chronic April 04 10:12am [facility] Work Phone: 1(482) 431-988302-03-2025 Evaluation note* Diagnosis Onset Date Resolution Status Admit Date Encounter for pessary maintenance acute January 03 10:11am Vaginal pessary in situ acute F ebruary 2024 10:11am 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 January 03 10:11am Breast lesion on mammography deleted January 18, 2025 8:20am Breast cancer, left breast acute February 11, 2025 12:44pm Breast cancer, left breast acute March 09, 2025 1:53pm Breast cancer, left breast acute March 16, 2025 9:10am Breast cancer, left breast acute March 25, 2025 10:13am Encounter for pessary maintenance acute April 04, 2025 10 :12am Vaginal pessary in situ acute M ay 2024 10:12am 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 Merrill [facility] May 21, 2023 12:58pm Note Date/Time May 21, 2023 11:0 2am [facility] Medical Records Department [address] [place] [address] Emergency Department Summary 05/21/23 MR#: [id number] Acct: [id number] Name: ALISTAIR ARECHIGA Rep #:[id number] : 1945 77 From: Domenic Alarcon PCP: NONA Dickerson Status:REG E R Location: ED HPI History of Present Illness Chief Complaint: Abd Pain PFSH [facility] Medical History GERD (gastroesophageal reflux disease) Hyperlipidemia Osteoporosis Vertigo Vision loss of left eye Vision loss of right eye Home Medications estradiol 0.01% (0.1 mg/gram) vaginal cream (Estrace) 1 g vaginal MOFR 12/17/17 [History Last Taken 02/25/22] glucosamine HCl 500 mg tablet 500 mg PO DAILY 01/05/19 [History Last Taken 02/27/22] triamcinolone acetonide 0.5 % topical cream 1 applic topical BID 7 days #15 grams 07/20/20 [Rx Last Taken 02/26/22] levothyroxine 25 mcg tablet (Synthroid) 25 mcg PO DAILY 02/25/22 [History Last Taken 02/28/22] fenofibric acid (choline) 135 mg capsule,delayed release 135 mg PO DAILY 02/28/22 [History Last Taken 02/27/22] calcium carbonate 600 mg-vitamin D3 10 mcg (400 unit) chewable tablet (Calcium 600 with Vitamin D3) tab PO 06/05/22 [History Last Taken Unknown] d-mannose 500 mg capsule mg PO 06/05/22 [History Last Taken Unknown] meclizine 25 mg tablet 25 mg PO DAILY PRN 06/05/22 [History Last Taken Unknown] hydrocodone-acetaminophen 5-325mg 5mg-325mg 1 tab PO Q6H PRN PRN Pain 3 days #10TABLETS 03/09/23 [Rx Last Taken Unknown] ondansetron 4 mg disintegrating tablet 8 mg PO Q8H PRN PRN Nausea #20 tabs 03/09/23 [Rx Last Taken Unknown] pantoprazole 40 mg tablet,delayed release 40 mg PO DAILY #14 tabs 03/09/23 [Rx Last Taken Unknown] boric acid 10 % topical ointment ea topical 04/24/23 [History Last Taken Unknown] oxyquinoline 0.025 %-sodium lauryl sulfate 0.01 % vaginal gel (Trimo-Colon Jelly) 1 ea vaginal WE #113.4 grams 05/20/23 [Rx Last Taken Unknown] Allergy/AdvReac Type Severity Reaction Status Date / Time sulfamethoxazole Allergy Mild Other Verified 05/21/23 10:51 [From Bactrim] trimethoprim [From Bactrim] Allergy Mild Other Verified 05/21/23 10:51 chlorhexidine Allergy Rash Verified 05/21/23 10:52 [From ChloraPrep Clear] isopropyl alcohol Allergy Rash Verified 05/21/23 10:52 [From ChloraPrep Clear] potassium clavulanate Allergy Rash Verified 05/21/23 10:51 [From Augmentin] amoxicillin trihydrate AdvReac Rash Verified 05/21/23 10:51 [From Augmentin] Family History Father Heart disease CVA (cerebral vascular accident) Surgical History H/O tubal ligation Social History Smoking Status: Never smoker alcohol intake: current details: social substance use type: does not use caffeine: Yes frequency: 1-2 times per week seatbelt use: always do you feel safe at home: Yes 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 EXAM Physical Exam Const Vital Signs: 05/21/23 10:49 05/21/23 12:50 Temperature 97.3 F L Temperature Source Temporal Pulse Rate 85 68 Respiratory Rate 16 16 Blood Pressure 183/103 H 139/67 H Blood Pressure Mean 129 91 Pulse Ox 99 100 Oxygen Delivery Method Room Air Room Air MDM MDM MDM Narrative Medical decision making narrative: HISTORY OF PRESENT ILLNESS: 77-year-old female here with diffuse abdominal pain. She notes pain is epigastric rating to her back. Not associated syncope or chest pain. Denies any cough or shortness of breath. States is worse with lying flat. Is not worse after food. Denies history abdominal surgeries. States he does have history of GERD. Denies any melena or hematochezia. Denies any constipation diarrhea. Denies any urinary complaints vaginal bleeding or discharge. Patientdenies sudden onset of pain, no tearing sensation, no migratory symptoms, no newnumbness, weakness or loss of sensation. Patient denies family history or personal history of Marfan syndrome or Keagan-Danlos. REVIEW OF SYSTEMS: Pertinent positives: Abdominal pain Pertinent negatives: Chest pain, shortness of breath or syncope PHYSICAL EXAM: Nursing triage notes reviewed, Vital signs reviewed Constitutional: please see mdm HENT: MMM Eyes: Pupils equal round and reactive to light, Extraocular muscles intact Neck: No stridor, no JVD, full neck ROM Lungs: Clear to auscultation, No wheezing or rales. No increased work of breathing, no conversational dyspnea, no accessory muscle use, no nasal flaring. No respiratory distress noted Heart: Regular rate and rhythm, No murmurs, No rubs and No gallops, 2+ distal pulses (radial, femoral, posterior tibial) in all extremities Abdomen: Soft, there is no tenderness, rigidity, rebound or guarding, no obviousperitoneal signs, no palpable pulsatile abdominal masses, no auscultated abdominal bruit : No CVAT Extremities: No edema Neuro: No focal neurological deficits, cranial nerves II through XII intact, 5/5strength in all extremities. Intact sensation to light touch in all extremities,2+ reflexes bilateral patella tendons. Normal gait. No ataxia. Skin: No rash or lesions noted MEDICAL DECISION MAKING: Chief Complaint: Abdominal pain External records reviewed: CT scan abdomen pelvis from 05/15/2023 is remarkable for no definitive abnormality seen Factors affecting care: GERD, hypothyroidism Social determinants of health: Elderly History obtained from others: The patient's Consults: none ALL IMAGES (IF OBTAINED) HAVE BEEN PERSONALLY REVIEWED AND INTERPRETED BY MYSELF. [facility] Narrative: The patient was hemodynamically stable, afebrile, nontoxic-appearing. There is no stigmata of aortic pathology. She has symmetric pulses. There is no pulsatile abdominal masses or auscultated bruits. I considered the following differential diagnosis: ACS, arrhythmia, anemia, pancreatitis, hepatobiliary obstruction, gastritis, esophagitis I was less concerned about acute surgical abdominal processes o such as obstruction or perforation given recent negative CT scan. The patient abdominalexam was also reassuring. She was treated with medicines to empirically treat gastric irritation including Carafate and Pepcid. I suspect patient suffering from reflux. However she is elderly and postmenopausal so obtained a broad lab work-up to further elucidate the etiology patient complaints including ruling out ACS, arrhythmia and other mentioned differentials. Labs were remarkable formild inflammation in the pancreas however there is no evidence of hepatobiliary obstruction. No evidence of significant systemic inflammation UTI myocardial ischemia. EKG had no evidence of arrhythmia. Chest x-ray was unremarkable. Patient's presentation clinically is most consistent with likely gastritis therealso may be component of very mild pancreatic inflammation causing additional pain. Bowel rest was instructed and GI follow-up was recommended. The patient and/or family, caregivers express understanding. The patient and/orfamily, caregivers agrees with the plan. Total critical care time today provided was at least 0 minutes. This excludes separately billable procedures. Critical care time (if documented) is secondary to the patient having high probability of clinically significant/life threatening deterioration in the patient's condition which required my urgent intervention. Shared decision making: I will have a discussion with the patient and or visitors regarding risk/benefits of further testing or admission. They will be made aware of of the risk/benefits inherent in this decision they will be given the opportunity to voice understanding. Lab Data Attestation: I reviewed the patient's lab results. Lab results narrative: EKG with normal sinus rhythm, normal axis, normal intervals, no ST or T wave changes to suggest ischemia. No evidence of WPW, Brugada, ARVD. CBC without leukocytosis, severe anemia, no thrombocytopenia. BMP without significant Hailey abnormalities, no anion gap to suggest endorgan hypoperfusion, baseline renal insufficiency, LFTs show no evidence of hepatobiliary pathology. Lipase only mildly elevated is not consistent with acute pancreatitis may be a cause for the patient's pain Urinalysis shows no evidence of urinary inflammation suggestive of UTI Troponin is negative, no evidence of myocardial ischemia Labs: Laboratory Results - last 24 hr 05/21/23 05/21/23 05/21/23 11:13 11:33 11:33 WBC 6.2 RBC 4.73 Hgb 13.2 Hct 42.4 MCV 89.6 MCH 27.9 MCHC 31.1 L RDW Std Deviation 48.1 H RDW Coeff of Kimi 14.6 Plt Count 338 MPV 9.0 Immature Gran % (Auto) 0.200 Neut % (Auto) 57.4 Lymph % (Auto) 31.6 [place] % (Auto) 7.9 Eos % (Auto) 1.8 Baso % (Auto) 1.1 H Absolute Neuts (auto) 3.6 Absolute Lymphs (auto) 1.96 Nucleated RBC % 0 Sodium 141 Potassium 4.0 Chloride 109 H Carbon Dioxide 26.0 Anion Gap 6 BUN 18 Creatinine 1.30 H Estim Creat Clear Calc 27.78 Est GFR (MDRD) Af Amer 51 L Est GFR (MDRD) Non-Af 42 L BUN/Creatinine Ratio 13.8 Glucose 97 Calcium 9.4 Total Bilirubin 0.40 Direct Bilirubin 0.16 AST 20 ALT 27 Alkaline Phosphatase 32 L Troponin I High Sens 7 Total Protein 7.7 Albumin 3.8 Globulin 3.9 Lipase 83 H Urine Color Yellow Urine Clarity Sl. Cloudy Urine pH 6.0 Ur Specific [place] 1.015 Urine Protein Negative Urine Glucose (UA) Normal Urine Ketones Negative Urine Occult Blood Negative Urine Nitrite Negative Urine Bilirubin Negative Urine Urobilinogen Normal Ur Leukocyte Esterase 25 H Urine RBC 0 SEEN Urine WBC 0-5 SEEN Ur Squamous Epith Cells 0-5 SEEN Urine Bacteria 0 SEEN Urine Mucus 0 SEEN Radiography Diagnostic Testing: Clinical Impression(s) from Imaging Studies Chest X-Ray 05/21/23 11:27 IMPRESSION: No acute pulmonary process Electronically Signed: Elmer Kilgore MD at 12:10 EDT Reading Location ID and State: [facility] / [place] , Service support , I have personally reviewed the patient's chest x-ray. Chest x-ray is unremarkable for pulmonary edema, pneumothorax, pneumonia or focal cardiopulmonary abnormality. Discharge Plan Triage Chief Complaint: Abd Pain ED Provider: Domenic Merrill Dx/Rx/DC Orders Clinical Impression: Abdominal pain, acute, epigastric, Acute inflammation of the pancreas Instructions: ED Pancreatitis Prescriptions: No Action estradiol [Estrace] 0.01 % (0.1 mg/gram) cream 1 g VAGINAL MOFR glucosamine HCl 500 mg tablet 500 mg PO DAILY triamcinolone acetonide 0.5 % cream 1 applic topical BID 7 Days Qty: 15 2RF Rx Instructions: peasized amount as instructed levothyroxine [Synthroid] 25 mcg tablet 25 mcg PO DAILY meclizine 25 mg tablet 25 mg PO DAILY PRN Calcium 600 with Vitamin D3 600 mg-10 mcg (400 unit) tablet,chewable PO d-mannose 500 mg capsule PO boric acid 10 % ointment topical fenofibric acid (choline) 135 mg capsule,delayed release(DR/EC) 135 mg PO DAILY Label Comments: Take 1 Capsule by mouth daily hydrocodone-acetaminophen [hydrocodone-acetaminophen] 5-325 mg tablet 1 tab PO Q6H PRN PRN (Reason: Pain) 3 Days Qty: 10 0RF pantoprazole 40 mg tablet,delayed release (DR/EC) 40 mg PO DAILY Qty: 14 0RF ondansetron [ondansetron] 4 mg tablet,disintegrating 8 mg PO Q8H PRN PRN (Reason: Nausea) Qty: 20 0RF Trimo-Colon Jelly 0.025-0.01 % gel 1 ea VAGINAL WE Qty: 113.4 2RF Primary Care Provider: Rayshawn Chaudhary Referrals: Ron Cabral DO [Med Staff - Active Staff] - Rayshawn Chaudhary, [employer] INST[employer]ER-C [Primary Care Provider] - Activity Restrictions/Additional Instructions: Thank you for trusting us with your care today! Please take Tylenol (2 pills, 650 mg), ibuprofen (2 pills, 400 mg) every 6 hoursas needed for pain and fever control. While not definitive your pancreas enzyme was elevated this could lead to pain in the top of your abdomen. The treatment for this is bowel rest. This is accomplished by decreasing oral intake to either fasting or clear liquids and then advancing slowly as your pain will tolerate. Please return to the emergency department if your symptoms change or worsen. Please follow with your primary care physician for further outpatient evaluationand management. Disposition Disposition: Home, Self Care What to do if you have Problems For any increased pain, shortness of breath, bleeding, nausea or vomiting, chestpain, or any unexpected problems, contact your Primary Care Provider. Call [facility] ([phone]) or report to the closest Emergency Room. Call 911 if necessary. 05/21/23 1258 <Electronically signed by Domenic Merrill DO> Cosigner Signature (if applicable): CC: NONA Chaudhary ~ Signed [facility] Work Phone: [phone] Hospital Discharge instructions Additional Instructions Try the full liquid diet for 2 to 3 days, then advance diet as toleratedWCleveland Clinic [facility] Work Phone: Discharge summary Author Wesly Leiva [facility] Note Date/Time April 07, 2025 12:52p m [facility] Medical Records Department [address] [place] [address] Emergency Department Summary 04/07/25 MR#: [id number] Acct: [id number] Name: ALISTAIR ARECHIGA Rep #:[id number] : 1945 79 From: Wesly Campbell PCP: NONA Dickerson Status:REG E R Location: ED HPI History of Present Illness Chief Complaint: Hypertension Informant: patient and friend Narrative Narrative: Presents with concerning elevated blood pressure. Patient seen 3 days ago for chest pain with elevated blood pressure. No patient lost her spouse in December. In January she was diagnosed with left-sided breast cancer. She is followed with planned radiation treatment on Friday. She states blood pressure recently 160s. She was worked up 3 days ago for chest pains blood pressure 160s over 80s. Workup negative. She follow-up with her PCP the next day was told to keepa monitor on her blood pressure with nursing visit in 2 weeks. Has been 160s, this morning after breakfast it was 190. She came here for evaluation. No headaches. No chest pains. No vomiting or diarrhea. Prior similar symptoms: Yes PFSH PFSH Medical History Osteopenia Cancer Wears glasses Post-menopausal Arthritis Low iron Fatty liver History of hiatal hernia Non-smoker History of pain when walking History of echocardiogram History of stress test GERD (gastroesophageal reflux disease) Vertigo Hyperlipidemia Home Medications ?Medication ?Instructions ?Recorded ?Last Taken ?Type fenofibric acid (choline) 135 mg 135 mg PO DAILY 02/2804/03/25 History capsule,delayed release calcium 600 mg (as carbonate)-vit 1 tab PO DAILY 06/0504/04/25 History D3 10 mcg (400 unit) chewable tablet (Calcium 600 with Vitamin D3) meclizine 25 mg tablet 25 mg PO DAILY PRN vertigo 0 06/05/22 04/04/25 History pantoprazole 40 mg tablet,delayed 40 mg PO DAILY #14 t abs 03/09/23 04/04/25 Rx release Mccoy Revive 2 cap PO DAILY 10/18/24 05/03/25 History ascorbic acid (vitamin C) 500 mg 500 mg PO DAILY 01/2004/04/25 History tablet (C-500) boric acid 600 mg vaginal 600 mg vaginal WE 01/20/25 0 03/30/25 History suppository d-mannose 500 mg capsule 500 mg PO BID 01/20/2504/04 History vitamin E 268 mg (400 unit) capsule 268 mg PO DAILY 04/04/25 History alprazolam 0.5 mg tablet (Xanax) 0.5 mg PO DAILY anxie ty #20 tabs 04/07/25 Unknown Rx sertraline 50 mg tablet (Zoloft) 50 mg PO DAILY #30 ta bs 04/07/25 Unknown Rx Allergy/AdvReac Type Severity Reaction Status Date / Time sulfamethoxazole (From Allergy Mild Other Verified 04/07/25 09:48 Bactrim) trimethoprim (From Bactrim) Allergy Mild Other Verified 04/07/25 09:48 chlorhexidine (From Allergy Rash Verified 04/07/25 09:48 ChloraPrep Clear) potassium clavulanate (From Allergy Rash Verified 04/07/25 09:48 Augmentin) amoxicillin trihydrate (From AdvReac Rash Verified 04/07/25 09:48 Augmentin) Family History Father Heart disease CVA (cerebral vascular accident) Surgical History Status post partial mastectomy of left breast History of breast lump/mass excision History of surgery on wrist History of surgery on wrist History of esophagogastroduodenoscopy (EGD) Hx of colonoscopy H/O tubal ligation Social History Smoking Status: Never smoker alcohol intake: current details: social substance use type: does not use caffeine: Yes frequency: 1-2 times per week seatbelt use: always do you feel safe at home: Yes additional social history: (Prasanna) ROS ROS ED Constitutional Constitutional ED: Denies chills, fever(s) or sweats ENT ENT ED: Denies sore throat Cardiovascular Cardiovascular: Denies chest pain, leg edema, palpitations or racing heartbeat Respiratory/Chest Respiratory/Chest: Denies cough, dyspnea or dyspnea on exertion Gastrointestinal Gastrointestinal: Denies abdominal pain, diarrhea, nausea or vomiting Genitourinary Genitourinary ED: Denies dysuria, hematuria or urinary frequency Musculoskeletal Musculoskeletal: Denies back pain, extremity pain or neck pain Integumentary Denies rash or wounds Neurologic Neurologic: Denies headache(s), paresthesias or weakness EXAM Physical Exam Const Vital Signs: 04/07/25 09:46 04/07/25 10:34 04/07/25 11:46 Temperature 97 F L Temperature Source Temporal Pulse Rate 84 Respiratory Rate 14 Respiratory Effort Normal Non-Labored Respiratory Pattern Normal Blood Pressure 166/80 H 163/87 H Blood Pressure Mean 108 112 Pulse Ox 100 Oxygen Delivery Method Room Air Positive well nourished and well developed General Appearance ED: well developed and NAD HEENT Reports moist mucous membranes normocephalic and atraumatic Eyes General Eye ED: Yes normal appearance of both eyes Neck full ROM Chest Wall Chest: Negative for tenderness Resp normal respiratory effort and normal air movement Effort and Inspection: symmetric chest movement; Negative for respiratory distress Cardio regular rate, regular rhythm and no murmurs Peripheral Pulses: pulses 2+ throughout GI normal to inspection, nondistended, normoactive bowel sounds and non-tender Palpation: Negative for guarding or rebound tenderness present Extremity normal to inspection General Extremety ED: Negative for edema or tenderness General Extremity: Negative for edema Neuro oriented x3 and no sensory deficits noted Sensorium / Orientation: awake and alert Skin no rashes or lesions noted and no wounds MDM MDM MDM Narrative Medical decision making narrative: Interventions / MDM: Differential diagnosis: Acute stress reaction, elevated blood pressure, recent breast cancer Diagnosis considered but do not suspect: N/A My EKG interpretation: N/A Imaging independently reviewed and interpreted by myself: N/A External documents reviewed: ED evaluation from 3 days ago negative cardiac workup including D-dimer. Blood pressure systolic 160s. Test considered but not ordered:N/A ED course: Patient triage blood pressure 166/80. After discussing with patient with her history concerned this is anxiety induced with loss of her spouse and current diagnosis of breast cancer pending treatment with radiation. Her daughter she reports is a nurse and this [place]. She has not discussed with her PCP the stress with everything going through. I feel that treatment of her stress will help with her blood pressure. 1050: Spoke with her daughter Ctilali on the phone with the patient in the room. Discussed treating anxiety will likely help symptoms she agrees with the plan. I will dose her with 0.5 mg of Xanax. Blood pressure during treatment 189/86. Iwill discuss with her PCP for initiation of treatment. Will reevaluate. 1230: Blood pressure recheck 163/87. I discussed with PCP office with Dr. Parham, agrees with plan of care. She would like to start the patient on Zolofthalf of the 50 mg for the first week then go up to full tab. She requests 20 tabs of Xanax to be written for the patient to use as needed to start once a dayif needed. Patient will follow-up in the office for reevaluation. Re-evaluation: stable Disposition discussed with patient/family/significant other: Patient, daughter and friend Case discussed with consulting clinician: PCP office This note was generated with [employer] dictation software. It may contain incorrectwords, spelling, and punctuation that were not noted in checking the note beforesigning. Discharge Plan Triage Chief Complaint: Hypertension ED Provider: Wesly Leiva Dx/Rx/DC Orders Clinical Impression: Acute stress disorder, Breast cancer, left breast, Elevated blood pressure, situational Instructions: Hubbard to Managing Stress, Blood Pressure Check Steps Prescriptions: New sertraline [Zoloft] 50 mg tablet 50 mg PO DAILY Qty: 30 0RF alprazolam [Xanax] 0.5 mg tablet 0.5 mg PO DAILY Qty: 20 0RF No Action meclizine 25 mg tablet 25 mg PO DAILY PRN (Reason: vertigo) Calcium 600 with Vitamin D3 600 mg-10 mcg (400 unit) tablet,chewable 1 tab PO DAILY Mccoy Revive 2 cap PO DAILY fenofibric acid (choline) 135 mg capsule,delayed release(DR/EC) 135 mg PO DAILY Patient Comments: Take 1 Capsule by mouth daily pantoprazole 40 mg tablet,delayed release (DR/EC) 40 mg PO DAILY Qty: 14 0RF d-mannose 500 mg capsule 500 mg PO BID boric acid 600 mg suppository 600 mg vaginal WE vitamin E 268 mg (400 unit) capsule 268 mg PO DAILY ascorbic acid (vitamin C) [C-500] 500 mg tablet 500 mg PO DAILY Primary Care Provider: Rayshawn Chaudhary Referrals: Rayshawn Chaudhary NP-C [Primary Care Provider] - 1-2 Weeks Activity Restrictions/Additional Instructions: Your blood pressure likely from your current stressors. I did discuss with Dr. Parham. We all agreed to start you on medicines to help with your anxiety and stress with your situation. Take Zoloft half a tab once a day for the next 7 days can go up to a full tab for total of 50 mg. Use Xanax for breakthrough stress as needed once a day for right now. If severe enough may use twice a day. Keep your follow-up with the office . Print Language: Macedonian Disposition Disposition: Home, Self Care What to do if you have Problems For any increased pain, shortness of breath, bleeding, nausea or vomiting, chestpain, or any unexpected problems, contact your Primary Care Provider. Call [facility] ([phone]) or report to the closest Emergency Room. Call 911 if necessary. 04/07/25 1252 <Electronically signed by Wesly Campbell> Cosigner Signature (if applicable): CC: NONA Chaudhary ~ Signed [facility] Work Phone: Evaluation + Plan note Future Appointments 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 Encounter for pessary maintenance acute Vaginal pessary in situ acut e [facility] Work Phone: Evaluation note* Diagnosis Onset Date Resolution Status Encounter for pessary maintenance acute Vaginal pessary in situ acut e UTI (urinary tract infection) noneactive [facility] Work Phone: Evaluation note* Diagnosis Onset Date Resolution Status Encounter for pessary maintenance acute 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 [facility] Work Phone: Evaluation note* Diagnosis Onset Date Resolution Status Encounter for pessary maintenance acute Vaginal pessary in situ acut e 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 [facility] Work Phone: Evaluation note* Diagnosis Onset Date Resolution Status Encounter for pessary maintenance acute Vaginal pessary in situ acut e 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 Encounter for pessary maintenance acute Vaginal pessary in situ acut e 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 [facility] Work Phone: Evaluation note* Diagnosis Onset Date Resolution Status Encounter for pessary maintenance acute Vaginal pessary in situ acut e 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 Encounter for pessary maintenance acute Vaginal pessary in situ acut e 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 GERD (gastroesophageal reflux disease) chronic [facility] Work Phone: Hospital course Narrative No data available for this section [facility] Hospital Discharge instructions Additional Instructions Thank you for trusting us with your care today! Please take Tylenol (2 pills, 650 mg), ibuprofen (2 pills, 400 mg) every 6 hours as needed for pain and fever control. While not definitive your pancreas enzyme was elevated this could lead to pain in the top of your abdomen. The treatment for this is bowel rest. This is accomplished by decreasing oral intake to either fasting or clear liquids and then advancing slowly as your pain will tolerate. Please return to the emergency department if your symptoms change or worsen. Please follow with your primary care physician for further outpatient evaluation and management.[facility] Work Phone: Hospital Discharge instructions Additional Instructions Your blood pressure likely from your current stressors. I did discuss with Dr. Parham. We all agreed to start you on medicines to help with your anxiety and stress with your situation. Take Zoloft half a tab once a day for the next 7 days can go up to a full tab for total of 50 mg. Use Xanax for breakthrough stress as needed once a day for right now. If severe enough may use twice a day. Keep your follow-up with the office .[facility] Work Phone: Hospital Discharge instructions Additional Instructions Follow-up your primary care physician. Log your blood pressures in the morning in the evening twice a day. Follow-up with your primary care provider to ensure that your blood pressure is being controlled appropriately with the current medication. A lot of this may be anxiety secondary to all that you have going on. That may improve with time and as you get through the radiation therapy. Use your anxiety medications as needed and prescribed.[facility] Work Phone: Hospital Discharge instructions No data available for this section [facility] Instructions* Name Dates Details Patient Instructions Indication:Nonsmoker Start:19-Feb-2021 Instruction Type:Provider Instructions for Treatment How to Access Health Informa tion Online using Patient Portal and [employer] Apps Indication:Nonsmoker Start:19-Feb-2021 Instruction Type:Patient Education Patient Instructions Indication:BMI 32.0-32.9,adult Start:30-Jan-2021 Instruction Type:Provider Instructions for Treatment How to Access Health Informa tion Online using Patient Portal and [employer] Apps Indication:BMI 32.0-32.9,adult Start:30-Jan-2021 Instruction Type:Patient Education Patient Instructions Indication:BMI 32.0-32.9,adult Start:03-Jan-2021 Instruction Type:Provider Instructions for Treatment How to Access Health Informa tion Online using Patient Portal and [employer] Apps Indication:BMI 32.0-32.9,adult Start:03-Jan-2021 Instruction Type:Patient Education How to access health informa tion online Indication:Nonsmoker Start:23-Oct-2020 Instruction Type:Patient Education How to access health informa tion online - Detail Indication:Nonsmoker Start:23-Oct-2020 Instruction Type:Patient Education Patient Instructions Indication:Nonsmoker Start:23-Oct-2020 Instruction Type:Provider Instructions for Treatment How to access health informa tion online Indication:Nonsmoker Start:18-Sep-2020 Instruction Type:Patient Education How to access health informa tion online - Detail Indication:Nonsmoker Start:18-Sep-2020 Instruction Type:Patient Education Patient Instructions Indication:Nonsmoker Start:18-Sep-2020 Instruction Type:Provider Instructions for Treatment How to access health informa tion online Indication:Nonsmoker Start:21-Jun-2020 Instruction Type:Patient Education How to access health informa tion online - Detail Indication:Nonsmoker Start:21-Jun-2020 Instruction Type:Patient Education Patient Instructions Indication:BMI 31.0-31.9,adult Start:21-Jun-2020 Instruction Type:Provider Instructions for Treatment How to access health informa tion online Indication:Nonsmoker Start:01-Mar-2020 Instruction Type:Patient Education How to access health informa tion online - Detail Indication:Nonsmoker Start:01-Mar-2020 Instruction Type:Patient Education Patient Instructions Indication:Nonsmoker Start:01-Mar-2020 Instruction Type:Provider Instructions for Treatment How to access health informa tion online Indication:BMI 32.0-32.9,adult Start:28-Feb-2020 Instruction Type:Patient Education How to access health informa tion online - Detail Indication:BMI 32.0-32.9,adult Start:28-Feb-2020 Instruction Type:Patient Education Patient Instructions Indication:BMI 32.0-32.9,adult Start:28-Feb-2020 Instruction Type:Provider Instructions for Treatment How to access health informa tion online Indication:Urinary frequency Start:14-Oct-2019 Instruction Type:Patient Education How to access health informa tion online - Detail Indication:Urinary frequency Start:14-Oct-2019 Instruction Type:Patient Education Patient Instructions Indication:Urinary frequency Start:14-Oct-2019 Instruction Type:Provider Instructions for Treatment How to access health informa tion online Indication:Urinary frequency Start:02-Dec-2018 Instruction Type:Patient Education How to access health informa tion online - Detail Indication:Urinary frequency Start:02-Dec-2018 Instruction Type:Patient Education Patient Instructions Indication:Urinary frequency Start:02-Dec-2018 Instruction Type:Provider Instructions for Treatment How to access health informa tion online Indication:Nonsmoker Start:27-Jul-2018 Instruction Type:Patient Education How to access health informa tion online - Detail Indication:Nonsmoker Start:27-Jul-2018 Instruction Type:Patient Education Patient Instructions Indication:Nonsmoker Start:27-Jul-2018 Instruction Type:Provider Instructions for Treatment How to access health informa tion online Indication:BMI 32.0-32.9,adult Start:16-Oct-2017 Instruction Type:Patient Education How to access health informa tion online - Detail Indication:BMI 32.0-32.9,adult Start:16-Oct-2017 Instruction Type:Patient Education Patient Instructions Indication:UTI (urinary tract infection) Start:16-Oct-2017 Instruction Type:Provider Instructions for Treatment DISCONTINUED - METABOLIC ESPITIA EL, COMPREHENSIVE (81987) Indication:Renal Insufficiency (Renamed from Impaired renal function) Start:18-Jul-2017 Instruction Type:Patient Education DISCONTINUED - [id number] ([id number]) Indication:Fatty liver Start:18-Jul-2017 Instruction Type:Patient Education DISCONTINUED - PTT (Activate d Partial Thromboplastin Time) ([id number]) Indication:Fatty liver Start:18-Jul-2017 Instruction Type:Patient Education DISCONTINUED - PT (PROTHROMB IN TIME) (53020) Indication:Fatty liver Start:18-Jul-2017 Instruction Type:Patient Education DISCONTINUED - LIPID PANEL ( 00043) Indication:Hyperlipidemia Start:18-Jul-2017 Instruction Type:Patient Education How to access health informa tion online Indication:Dysuria Start:18-Jul-2017 Instruction Type:Patient Education How to access health informa tion online - Detail Indication:Dysuria Start:18-Jul-2017 Instruction Type:Patient Education Patient Instructions Indication:Dysuria Start:18-Jul-2017 Instruction Type:Provider Instructions for Treatment How to access health informa tion online Indication:UTI symptoms Start:16-Dec-2016 Instruction Type:Patient Education How to access health informa tion online - Detail Indication:UTI symptoms Start:16-Dec-2016 Instruction Type:Patient Education Patient Instructions Indication:UTI symptoms Start:16-Dec-2016 Instruction Type:Provider Instructions for Treatment How to access health informa tion online Indication:UTI symptoms Start:23-Sep-2016 Instruction Type:Patient Education How to access health informa tion online - Detail Indication:UTI symptoms Start:23-Sep-2016 Instruction Type:Patient Education Patient Instructions Indication:UTI symptoms Start:23-Sep-2016 Instruction Type:Provider Instructions for Treatment How to access health informa tion online Indication:Impaired Fasting Glucose Start:06-Aug-2016 Instruction Type:Patient Education How to access health informa tion online - Detail Indication:Impaired Fasting Glucose Start:06-Aug-2016 Instruction Type:Patient Education Patient Instructions Indication:Impaired Fasting Glucose Start:06-Aug-2016 Instruction Type:Provider Instructions for Treatment How to access health informa tion online Indication:UTI symptoms Start:02-May-2016 Instruction Type:Patient Education How to access health informa tion online - Detail Indication:UTI symptoms Start:02-May-2016 Instruction Type:Patient Education Patient Instructions Indication:UTI symptoms Start:02-May-2016 Instruction Type:Provider Instructions for Treatment How to access health informa tion online Indication:UTI symptoms Start:19-Apr-2016 Instruction Type:Patient Education How to access health informa tion online - Detail Indication:UTI symptoms Start:19-Apr-2016 Instruction Type:Patient Education Patient Instructions Indication:UTI symptoms Start:19-Apr-2016 Instruction Type:Provider Instructions for Treatment How to access health informa tion online Indication:Sorethroat Start:14-Mar-2016 Instruction Type:Patient Education How to access health informa tion online - Detail Indication:Sorethroat Start:14-Mar-2016 Instruction Type:Patient Education Patient Instructions Indication:Sorethroat Start:14-Mar-2016 Instruction Type:Provider Instructions for Treatment How to access health informa tion online Indication:Impaired Fasting Glucose Start:11-Mar-2016 Instruction Type:Patient Education How to access health informa tion online - Detail Indication:Impaired Fasting Glucose Start:11-Mar-2016 Instruction Type:Patient Education Patient Instructions Indication:Impaired Fasting Glucose Start:11-Mar-2016 Instruction Type:Provider Instructions for Treatment How to access health informa tion online Indication:Impaired Fasting Glucose Start:09-Oct-2015 Instruction Type:Patient Education How to access health informa tion online - Detail Indication:Impaired Fasting Glucose Start:09-Oct-2015 Instruction Type:Patient Education Patient Instructions Indication:Impaired Fasting Glucose Start:09-Oct-2015 Instruction Type:Provider Instructions for Treatment Patient Instructions Indication:Impaired Fasting Glucose Start:21-Jun-2015 Instruction Type:Provider Instructions for Treatment How to access health informa tion online Indication:Poison debi Start:31-May-2015 Instruction Type:Patient Education How to access health informa tion online - Detail Indication:Poison debi Start:31-May-2015 Instruction Type:Patient Education Patient Instructions Indication:Poison debi Start:31-May-2015 Instruction Type:Provider Instructions for Treatment Patient Instructions Indication:Impaired Fasting Glucose Start:15-Feb-2015 Instruction Type:Provider Instructions for Treatment How to access health informa tion online Indication:Impaired Fasting Glucose Start:19-Oct-2014 Instruction Type:Patient Education How to access health informa tion online - Detail Indication:Impaired Fasting Glucose Start:19-Oct-2014 Instruction Type:Patient Education Patient Instructions Indication:Impaired Fasting Glucose Start:19-Oct-2014 Instruction Type:Provider Instructions for Treatment How to access health informa tion online Indication:Impaired Fasting Glucose Start:20-Jul-2014 Instruction Type:Patient Education How to access health informa tion online - Detail Indication:Impaired Fasting Glucose Start:20-Jul-2014 Instruction Type:Patient Education Patient Instructions Indication:Impaired Fasting Glucose Start:20-Jul-2014 Instruction Type:Provider Instructions for Treatment Patient Instructions Indication:Encounter for Medicare annual wellness exam Start:04-May-2014 Instruction Type:Provider Instructions for Treatment Patient Instructions Indication:Impaired Fasting Glucose Start:16-Mar-2014 Instruction Type:Provider Instructions for Treatment Patient Instructions Indication:Impaired Fasting Glucose Start:09-Nov-2013 Instruction Type:Provider Instructions for Treatment Patient Instructions Indication:Vaginal yeast infection Start:17-Aug-2013 Instruction Type:Provider Instructions for Treatment Patient Instructions Indication:Impaired Fasting Glucose Start:06-Aug-2013 Instruction Type:Provider Instructions for Treatment Patient Instructions Indication:Diverticulitis Start:30-Jun-2013 Instruction Type:Provider Instructions for Treatment [facility]; [facility] Work Phone: Instructions* Name Dates Details Patient Instructions Indication:BMI 31.0-31.9,adult Start:08-Jun-2021 Instruction Type:Provider Instructions for Treatment How to Access Health Informa tion Online using Patient Portal and [employer] Apps Indication:Impaired Fasting Glucose Start:08-Jun-2021 Instruction Type:Patient Education Patient Instructions Indication:Nonsmoker Start:19-Feb-2021 Instruction Type:Provider Instructions for Treatment How to Access Health Informa tion Online using Patient Portal and [employer] Apps Indication:Nonsmoker Start:19-Feb-2021 Instruction Type:Patient Education Patient Instructions Indication:BMI 32.0-32.9,adult Start:30-Jan-2021 Instruction Type:Provider Instructions for Treatment How to Access Health Informa tion Online using Patient Portal and [employer] Apps Indication:BMI 32.0-32.9,adult Start:30-Jan-2021 Instruction Type:Patient Education Patient Instructions Indication:BMI 32.0-32.9,adult Start:03-Jan-2021 Instruction Type:Provider Instructions for Treatment How to Access Health Informa tion Online using Patient Portal and [employer] Apps Indication:BMI 32.0-32.9,adult Start:03-Jan-2021 Instruction Type:Patient Education How to access health informa tion online Indication:Nonsmoker Start:23-Oct-2020 Instruction Type:Patient Education How to access health informa tion online - Detail Indication:Nonsmoker Start:23-Oct-2020 Instruction Type:Patient Education Patient Instructions Indication:Nonsmoker Start:23-Oct-2020 Instruction Type:Provider Instructions for Treatment How to access health informa tion online Indication:Nonsmoker Start:18-Sep-2020 Instruction Type:Patient Education How to access health informa tion online - Detail Indication:Nonsmoker Start:18-Sep-2020 Instruction Type:Patient Education Patient Instructions Indication:Nonsmoker Start:18-Sep-2020 Instruction Type:Provider Instructions for Treatment How to access health informa tion online Indication:Nonsmoker Start:21-Jun-2020 Instruction Type:Patient Education How to access health informa tion online - Detail Indication:Nonsmoker Start:21-Jun-2020 Instruction Type:Patient Education Patient Instructions Indication:BMI 31.0-31.9,adult Start:21-Jun-2020 Instruction Type:Provider Instructions for Treatment How to access health informa tion online Indication:Nonsmoker Start:01-Mar-2020 Instruction Type:Patient Education How to access health informa tion online - Detail Indication:Nonsmoker Start:01-Mar-2020 Instruction Type:Patient Education Patient Instructions Indication:Nonsmoker Start:01-Mar-2020 Instruction Type:Provider Instructions for Treatment How to access health informa tion online Indication:BMI 32.0-32.9,adult Start:28-Feb-2020 Instruction Type:Patient Education How to access health informa tion online - Detail Indication:BMI 32.0-32.9,adult Start:28-Feb-2020 Instruction Type:Patient Education Patient Instructions Indication:BMI 32.0-32.9,adult Start:28-Feb-2020 Instruction Type:Provider Instructions for Treatment How to access health informa tion online Indication:Urinary frequency Start:14-Oct-2019 Instruction Type:Patient Education How to access health informa tion online - Detail Indication:Urinary frequency Start:14-Oct-2019 Instruction Type:Patient Education Patient Instructions Indication:Urinary frequency Start:14-Oct-2019 Instruction Type:Provider Instructions for Treatment How to access health informa tion online Indication:Urinary frequency Start:02-Dec-2018 Instruction Type:Patient Education How to access health informa tion online - Detail Indication:Urinary frequency Start:02-Dec-2018 Instruction Type:Patient Education Patient Instructions Indication:Urinary frequency Start:02-Dec-2018 Instruction Type:Provider Instructions for Treatment How to access health informa tion online Indication:Nonsmoker Start:27-Jul-2018 Instruction Type:Patient Education How to access health informa tion online - Detail Indication:Nonsmoker Start:27-Jul-2018 Instruction Type:Patient Education Patient Instructions Indication:Nonsmoker Start:27-Jul-2018 Instruction Type:Provider Instructions for Treatment How to access health informa tion online Indication:BMI 32.0-32.9,adult Start:16-Oct-2017 Instruction Type:Patient Education How to access health informa tion online - Detail Indication:BMI 32.0-32.9,adult Start:16-Oct-2017 Instruction Type:Patient Education Patient Instructions Indication:UTI (urinary tract infection) Start:16-Oct-2017 Instruction Type:Provider Instructions for Treatment DISCONTINUED - METABOLIC ESPITIA EL, COMPREHENSIVE (46396) Indication:Renal Insufficiency (Renamed from Impaired renal function) Start:18-Jul-2017 Instruction Type:Patient Education DISCONTINUED - [id number] ([id number]) Indication:Fatty liver Start:18-Jul-2017 Instruction Type:Patient Education DISCONTINUED - PTT (Activate d Partial Thromboplastin Time) ([id number]) Indication:Fatty liver Start:18-Jul-2017 Instruction Type:Patient Education DISCONTINUED - PT (PROTHROMB IN TIME) (52714) Indication:Fatty liver Start:18-Jul-2017 Instruction Type:Patient Education DISCONTINUED - LIPID PANEL ( [id number]) Indication:Hyperlipidemia Start:18-Jul-2017 Instruction Type:Patient Education How to access health informa tion online Indication:Dysuria Start:18-Jul-2017 Instruction Type:Patient Education How to access health informa tion online - Detail Indication:Dysuria Start:18-Jul-2017 Instruction Type:Patient Education Patient Instructions Indication:Dysuria Start:18-Jul-2017 Instruction Type:Provider Instructions for Treatment How to access health informa tion online Indication:UTI symptoms Start:16-Dec-2016 Instruction Type:Patient Education How to access health informa tion online - Detail Indication:UTI symptoms Start:16-Dec-2016 Instruction Type:Patient Education Patient Instructions Indication:UTI symptoms Start:16-Dec-2016 Instruction Type:Provider Instructions for Treatment How to access health informa tion online Indication:UTI symptoms Start:23-Sep-2016 Instruction Type:Patient Education How to access health informa tion online - Detail Indication:UTI symptoms Start:23-Sep-2016 Instruction Type:Patient Education Patient Instructions Indication:UTI symptoms Start:23-Sep-2016 Instruction Type:Provider Instructions for Treatment How to access health informa tion online Indication:Impaired Fasting Glucose Start:06-Aug-2016 Instruction Type:Patient Education How to access health informa tion online - Detail Indication:Impaired Fasting Glucose Start:06-Aug-2016 Instruction Type:Patient Education Patient Instructions Indication:Impaired Fasting Glucose Start:06-Aug-2016 Instruction Type:Provider Instructions for Treatment How to access health informa tion online Indication:UTI symptoms Start:02-May-2016 Instruction Type:Patient Education How to access health informa tion online - Detail Indication:UTI symptoms Start:02-May-2016 Instruction Type:Patient Education Patient Instructions Indication:UTI symptoms Start:02-May-2016 Instruction Type:Provider Instructions for Treatment How to access health informa tion online Indication:UTI symptoms Start:19-Apr-2016 Instruction Type:Patient Education How to access health informa tion online - Detail Indication:UTI symptoms Start:19-Apr-2016 Instruction Type:Patient Education Patient Instructions Indication:UTI symptoms Start:19-Apr-2016 Instruction Type:Provider Instructions for Treatment How to access health informa tion online Indication:Sorethroat Start:14-Mar-2016 Instruction Type:Patient Education How to access health informa tion online - Detail Indication:Sorethroat Start:14-Mar-2016 Instruction Type:Patient Education Patient Instructions Indication:Sorethroat Start:14-Mar-2016 Instruction Type:Provider Instructions for Treatment How to access health informa tion online Indication:Impaired Fasting Glucose Start:11-Mar-2016 Instruction Type:Patient Education How to access health informa tion online - Detail Indication:Impaired Fasting Glucose Start:11-Mar-2016 Instruction Type:Patient Education Patient Instructions Indication:Impaired Fasting Glucose Start:11-Mar-2016 Instruction Type:Provider Instructions for Treatment How to access health informa tion online Indication:Impaired Fasting Glucose Start:09-Oct-2015 Instruction Type:Patient Education How to access health informa tion online - Detail Indication:Impaired Fasting Glucose Start:09-Oct-2015 Instruction Type:Patient Education Patient Instructions Indication:Impaired Fasting Glucose Start:09-Oct-2015 Instruction Type:Provider Instructions for Treatment Patient Instructions Indication:Impaired Fasting Glucose Start:21-Jun-2015 Instruction Type:Provider Instructions for Treatment How to access health informa tion online Indication:Poison debi Start:31-May-2015 Instruction Type:Patient Education How to access health informa tion online - Detail Indication:Poison debi Start:31-May-2015 Instruction Type:Patient Education Patient Instructions Indication:Poison debi Start:31-May-2015 Instruction Type:Provider Instructions for Treatment Patient Instructions Indication:Impaired Fasting Glucose Start:15-Feb-2015 Instruction Type:Provider Instructions for Treatment How to access health informa tion online Indication:Impaired Fasting Glucose Start:19-Oct-2014 Instruction Type:Patient Education How to access health informa tion online - Detail Indication:Impaired Fasting Glucose Start:19-Oct-2014 Instruction Type:Patient Education Patient Instructions Indication:Impaired Fasting Glucose Start:19-Oct-2014 Instruction Type:Provider Instructions for Treatment How to access health informa tion online Indication:Impaired Fasting Glucose Start:20-Jul-2014 Instruction Type:Patient Education How to access health informa tion online - Detail Indication:Impaired Fasting Glucose Start:20-Jul-2014 Instruction Type:Patient Education Patient Instructions Indication:Impaired Fasting Glucose Start:20-Jul-2014 Instruction Type:Provider Instructions for Treatment Patient Instructions Indication:Encounter for Medicare annual wellness exam Start:04-May-2014 Instruction Type:Provider Instructions for Treatment Patient Instructions Indication:Impaired Fasting Glucose Start:16-Mar-2014 Instruction Type:Provider Instructions for Treatment Patient Instructions Indication:Impaired Fasting Glucose Start:09-Nov-2013 Instruction Type:Provider Instructions for Treatment Patient Instructions Indication:Vaginal yeast infection Start:17-Aug-2013 Instruction Type:Provider Instructions for Treatment Patient Instructions Indication:Impaired Fasting Glucose Start:06-Aug-2013 Instruction Type:Provider Instructions for Treatment Patient Instructions Indication:Diverticulitis Start:30-Jun-2013 Instruction Type:Provider Instructions for Treatment [facility]; [facility] Work Phone: Instructions* Name Dates Details Patient Instructions Indication:Hyperlipidemia Start:26-Sep-2021 Instruction Type:Provider Instructions for Treatment How to Access Health Informa tion Online using Patient Portal and [employer] Apps Indication:Impaired Fasting Glucose Start:26-Sep-2021 Instruction Type:Patient Education Patient Instructions Indication:BMI 31.0-31.9,adult Start:08-Jun-2021 Instruction Type:Provider Instructions for Treatment How to Access Health Informa tion Online using Patient Portal and [employer] Apps Indication:Impaired Fasting Glucose Start:08-Jun-2021 Instruction Type:Patient Education Patient Instructions Indication:Nonsmoker Start:19-Feb-2021 Instruction Type:Provider Instructions for Treatment How to Access Health Informa tion Online using Patient Portal and [employer] Apps Indication:Nonsmoker Start:19-Feb-2021 Instruction Type:Patient Education Patient Instructions Indication:BMI 32.0-32.9,adult Start:30-Jan-2021 Instruction Type:Provider Instructions for Treatment How to Access Health Informa tion Online using Patient Portal and [employer] Indication:BMI 32.0-32.9,adult Start:30-Jan-2021 Instruction Type:Patient Education Patient Instructions Indication:BMI 32.0-32.9,adult Start:03-Jan-2021 Instruction Type:Provider Instructions for Treatment How to Access Health Informa tion Online using Patient Portal and [employer] Indication:BMI 32.0-32.9,adult Start:03-Jan-2021 Instruction Type:Patient Education How to access health informa tion online Indication:Nonsmoker Start:23-Oct-2020 Instruction Type:Patient Education How to access health informa tion online - Detail Indication:Nonsmoker Start:23-Oct-2020 Instruction Type:Patient Education Patient Instructions Indication:Nonsmoker Start:23-Oct-2020 Instruction Type:Provider Instructions for Treatment How to access health informa tion online Indication:Nonsmoker Start:18-Sep-2020 Instruction Type:Patient Education How to access health informa tion online - Detail Indication:Nonsmoker Start:18-Sep-2020 Instruction Type:Patient Education Patient Instructions Indication:Nonsmoker Start:18-Sep-2020 Instruction Type:Provider Instructions for Treatment How to access health informa tion online Indication:Nonsmoker Start:21-Jun-2020 Instruction Type:Patient Education How to access health informa tion online - Detail Indication:Nonsmoker Start:21-Jun-2020 Instruction Type:Patient Education Patient Instructions Indication:BMI 31.0-31.9,adult Start:21-Jun-2020 Instruction Type:Provider Instructions for Treatment How to access health informa tion online Indication:Nonsmoker Start:01-Mar-2020 Instruction Type:Patient Education How to access health informa tion online - Detail Indication:Nonsmoker Start:01-Mar-2020 Instruction Type:Patient Education Patient Instructions Indication:Nonsmoker Start:01-Mar-2020 Instruction Type:Provider Instructions for Treatment How to access health informa tion online Indication:BMI 32.0-32.9,adult Start:28-Feb-2020 Instruction Type:Patient Education How to access health informa tion online - Detail Indication:BMI 32.0-32.9,adult Start:28-Feb-2020 Instruction Type:Patient Education Patient Instructions Indication:BMI 32.0-32.9,adult Start:28-Feb-2020 Instruction Type:Provider Instructions for Treatment How to access health informa tion online Indication:Urinary frequency Start:14-Oct-2019 Instruction Type:Patient Education How to access health informa tion online - Detail Indication:Urinary frequency Start:14-Oct-2019 Instruction Type:Patient Education Patient Instructions Indication:Urinary frequency Start:14-Oct-2019 Instruction Type:Provider Instructions for Treatment How to access health informa tion online Indication:Urinary frequency Start:02-Dec-2018 Instruction Type:Patient Education How to access health informa tion online - Detail Indication:Urinary frequency Start:02-Dec-2018 Instruction Type:Patient Education Patient Instructions Indication:Urinary frequency Start:02-Dec-2018 Instruction Type:Provider Instructions for Treatment How to access health informa tion online Indication:Nonsmoker Start:27-Jul-2018 Instruction Type:Patient Education How to access health informa tion online - Detail Indication:Nonsmoker Start:27-Jul-2018 Instruction Type:Patient Education Patient Instructions Indication:Nonsmoker Start:27-Jul-2018 Instruction Type:Provider Instructions for Treatment How to access health informa tion online Indication:BMI 32.0-32.9,adult Start:16-Oct-2017 Instruction Type:Patient Education How to access health informa tion online - Detail Indication:BMI 32.0-32.9,adult Start:16-Oct-2017 Instruction Type:Patient Education Patient Instructions Indication:UTI (urinary tract infection) Start:16-Oct-2017 Instruction Type:Provider Instructions for Treatment DISCONTINUED - METABOLIC ESPITIA EL, COMPREHENSIVE (35569) Indication:Renal Insufficiency (Renamed from Impaired renal function) Start:18-Jul-2017 Instruction Type:Patient Education DISCONTINUED - [id number] ([id number]) Indication:Fatty liver Start:18-Jul-2017 Instruction Type:Patient Education DISCONTINUED - PTT (Activate d Partial Thromboplastin Time) ([id number]) Indication:Fatty liver Start:18-Jul-2017 Instruction Type:Patient Education DISCONTINUED - PT (PROTHROMB IN TIME) ([id number]) Indication:Fatty liver Start:18-Jul-2017 Instruction Type:Patient Education DISCONTINUED - LIPID PANEL ( [id number]) Indication:Hyperlipidemia Start:18-Jul-2017 Instruction Type:Patient Education How to access health informa tion online Indication:Dysuria Start:18-Jul-2017 Instruction Type:Patient Education How to access health informa tion online - Detail Indication:Dysuria Start:18-Jul-2017 Instruction Type:Patient Education Patient Instructions Indication:Dysuria Start:18-Jul-2017 Instruction Type:Provider Instructions for Treatment How to access health informa tion online Indication:UTI symptoms Start:16-Dec-2016 Instruction Type:Patient Education How to access health informa tion online - Detail Indication:UTI symptoms Start:16-Dec-2016 Instruction Type:Patient Education Patient Instructions Indication:UTI symptoms Start:16-Dec-2016 Instruction Type:Provider Instructions for Treatment How to access health informa tion online Indication:UTI symptoms Start:23-Sep-2016 Instruction Type:Patient Education How to access health informa tion online - Detail Indication:UTI symptoms Start:23-Sep-2016 Instruction Type:Patient Education Patient Instructions Indication:UTI symptoms Start:23-Sep-2016 Instruction Type:Provider Instructions for Treatment How to access health informa tion online Indication:Impaired Fasting Glucose Start:06-Aug-2016 Instruction Type:Patient Education How to access health informa tion online - Detail Indication:Impaired Fasting Glucose Start:06-Aug-2016 Instruction Type:Patient Education Patient Instructions Indication:Impaired Fasting Glucose Start:06-Aug-2016 Instruction Type:Provider Instructions for Treatment How to access health informa tion online Indication:UTI symptoms Start:02-May-2016 Instruction Type:Patient Education How to access health informa tion online - Detail Indication:UTI symptoms Start:02-May-2016 Instruction Type:Patient Education Patient Instructions Indication:UTI symptoms Start:02-May-2016 Instruction Type:Provider Instructions for Treatment How to access health informa tion online Indication:UTI symptoms Start:19-Apr-2016 Instruction Type:Patient Education How to access health informa tion online - Detail Indication:UTI symptoms Start:19-Apr-2016 Instruction Type:Patient Education Patient Instructions Indication:UTI symptoms Start:19-Apr-2016 Instruction Type:Provider Instructions for Treatment How to access health informa tion online Indication:Sorethroat Start:14-Mar-2016 Instruction Type:Patient Education How to access health informa tion online - Detail Indication:Sorethroat Start:14-Mar-2016 Instruction Type:Patient Education Patient Instructions Indication:Sorethroat Start:14-Mar-2016 Instruction Type:Provider Instructions for Treatment How to access health informa tion online Indication:Impaired Fasting Glucose Start:11-Mar-2016 Instruction Type:Patient Education How to access health informa tion online - Detail Indication:Impaired Fasting Glucose Start:11-Mar-2016 Instruction Type:Patient Education Patient Instructions Indication:Impaired Fasting Glucose Start:11-Mar-2016 Instruction Type:Provider Instructions for Treatment How to access health informa tion online Indication:Impaired Fasting Glucose Start:09-Oct-2015 Instruction Type:Patient Education How to access health informa tion online - Detail Indication:Impaired Fasting Glucose Start:09-Oct-2015 Instruction Type:Patient Education Patient Instructions Indication:Impaired Fasting Glucose Start:09-Oct-2015 Instruction Type:Provider Instructions for Treatment Patient Instructions Indication:Impaired Fasting Glucose Start:21-Jun-2015 Instruction Type:Provider Instructions for Treatment How to access health informa tion online Indication:Poison debi Start:31-May-2015 Instruction Type:Patient Education How to access health informa tion online - Detail Indication:Poison debi Start:31-May-2015 Instruction Type:Patient Education Patient Instructions Indication:Poison debi Start:31-May-2015 Instruction Type:Provider Instructions for Treatment Patient Instructions Indication:Impaired Fasting Glucose Start:15-Feb-2015 Instruction Type:Provider Instructions for Treatment How to access health informa tion online Indication:Impaired Fasting Glucose Start:19-Oct-2014 Instruction Type:Patient Education How to access health informa tion online - Detail Indication:Impaired Fasting Glucose Start:19-Oct-2014 Instruction Type:Patient Education Patient Instructions Indication:Impaired Fasting Glucose Start:19-Oct-2014 Instruction Type:Provider Instructions for Treatment How to access health informa tion online Indication:Impaired Fasting Glucose Start:20-Jul-2014 Instruction Type:Patient Education How to access health informa tion online - Detail Indication:Impaired Fasting Glucose Start:20-Jul-2014 Instruction Type:Patient Education Patient Instructions Indication:Impaired Fasting Glucose Start:20-Jul-2014 Instruction Type:Provider Instructions for Treatment Patient Instructions Indication:Encounter for Medicare annual wellness exam Start:04-May-2014 Instruction Type:Provider Instructions for Treatment Patient Instructions Indication:Impaired Fasting Glucose Start:16-Mar-2014 Instruction Type:Provider Instructions for Treatment Patient Instructions Indication:Impaired Fasting Glucose Start:09-Nov-2013 Instruction Type:Provider Instructions for Treatment Patient Instructions Indication:Vaginal yeast infection Start:17-Aug-2013 Instruction Type:Provider Instructions for Treatment Patient Instructions Indication:Impaired Fasting Glucose Start:06-Aug-2013 Instruction Type:Provider Instructions for Treatment Patient Instructions Indication:Diverticulitis Start:30-Jun-2013 Instruction Type:Provider Instructions for Treatment [facility]; [facility] Work Phone: Instructions* Name Dates Details Patient Instructions Indication:BMI 31.0-31.9,adult Start:11-Dec-2021 Instruction Type:Provider Instructions for Treatment How to Access Health Informa tion Online using Patient Portal and [employer] Apps Indication:BMI 31.0-31.9,adult Start:11-Dec-2021 Instruction Type:Patient Education Patient Instructions Indication:Hyperlipidemia Start:26-Sep-2021 Instruction Type:Provider Instructions for Treatment How to Access Health Informa tion Online using Patient Portal and [employer] Apps Indication:Impaired Fasting Glucose Start:26-Sep-2021 Instruction Type:Patient Education Patient Instructions Indication:BMI 31.0-31.9,adult Start:08-Jun-2021 Instruction Type:Provider Instructions for Treatment How to Access Health Informa tion Online using Patient Portal and [employer] Apps Indication:Impaired Fasting Glucose Start:08-Jun-2021 Instruction Type:Patient Education Patient Instructions Indication:Nonsmoker Start:19-Feb-2021 Instruction Type:Provider Instructions for Treatment How to Access Health Informa tion Online using Patient Portal and [employer] Apps Indication:Nonsmoker Start:19-Feb-2021 Instruction Type:Patient Education Patient Instructions Indication:BMI 32.0-32.9,adult Start:30-Jan-2021 Instruction Type:Provider Instructions for Treatment How to Access Health Informa tion Online using Patient Portal and [employer] Apps Indication:BMI 32.0-32.9,adult Start:30-Jan-2021 Instruction Type:Patient Education Patient Instructions Indication:BMI 32.0-32.9,adult Start:03-Jan-2021 Instruction Type:Provider Instructions for Treatment How to Access Health Informa tion Online using Patient Portal and [employer] Apps Indication:BMI 32.0-32.9,adult Start:03-Jan-2021 Instruction Type:Patient Education How to access health informa tion online Indication:Nonsmoker Start:23-Oct-2020 Instruction Type:Patient Education How to access health informa tion online - Detail Indication:Nonsmoker Start:23-Oct-2020 Instruction Type:Patient Education Patient Instructions Indication:Nonsmoker Start:23-Oct-2020 Instruction Type:Provider Instructions for Treatment How to access health informa tion online Indication:Nonsmoker Start:18-Sep-2020 Instruction Type:Patient Education How to access health informa tion online - Detail Indication:Nonsmoker Start:18-Sep-2020 Instruction Type:Patient Education Patient Instructions Indication:Nonsmoker Start:18-Sep-2020 Instruction Type:Provider Instructions for Treatment How to access health informa tion online Indication:Nonsmoker Start:21-Jun-2020 Instruction Type:Patient Education How to access health informa tion online - Detail Indication:Nonsmoker Start:21-Jun-2020 Instruction Type:Patient Education Patient Instructions Indication:BMI 31.0-31.9,adult Start:21-Jun-2020 Instruction Type:Provider Instructions for Treatment How to access health informa tion online Indication:Nonsmoker Start:01-Mar-2020 Instruction Type:Patient Education How to access health informa tion online - Detail Indication:Nonsmoker Start:01-Mar-2020 Instruction Type:Patient Education Patient Instructions Indication:Nonsmoker Start:01-Mar-2020 Instruction Type:Provider Instructions for Treatment How to access health informa tion online Indication:BMI 32.0-32.9,adult Start:28-Feb-2020 Instruction Type:Patient Education How to access health informa tion online - Detail Indication:BMI 32.0-32.9,adult Start:28-Feb-2020 Instruction Type:Patient Education Patient Instructions Indication:BMI 32.0-32.9,adult Start:28-Feb-2020 Instruction Type:Provider Instructions for Treatment How to access health informa tion online Indication:Urinary frequency Start:14-Oct-2019 Instruction Type:Patient Education How to access health informa tion online - Detail Indication:Urinary frequency Start:14-Oct-2019 Instruction Type:Patient Education Patient Instructions Indication:Urinary frequency Start:14-Oct-2019 Instruction Type:Provider Instructions for Treatment How to access health informa tion online Indication:Urinary frequency Start:02-Dec-2018 Instruction Type:Patient Education How to access health informa tion online - Detail Indication:Urinary frequency Start:02-Dec-2018 Instruction Type:Patient Education Patient Instructions Indication:Urinary frequency Start:02-Dec-2018 Instruction Type:Provider Instructions for Treatment How to access health informa tion online Indication:Nonsmoker Start:27-Jul-2018 Instruction Type:Patient Education How to access health informa tion online - Detail Indication:Nonsmoker Start:27-Jul-2018 Instruction Type:Patient Education Patient Instructions Indication:Nonsmoker Start:27-Jul-2018 Instruction Type:Provider Instructions for Treatment How to access health informa tion online Indication:BMI 32.0-32.9,adult Start:16-Oct-2017 Instruction Type:Patient Education How to access health informa tion online - Detail Indication:BMI 32.0-32.9,adult Start:16-Oct-2017 Instruction Type:Patient Education Patient Instructions Indication:UTI (urinary tract infection) Start:16-Oct-2017 Instruction Type:Provider Instructions for Treatment DISCONTINUED - METABOLIC ESPITIA EL, COMPREHENSIVE (75976) Indication:Renal Insufficiency (Renamed from Impaired renal function) Start:18-Jul-2017 Instruction Type:Patient Education DISCONTINUED - [id number] ([id number]) Indication:Fatty liver Start:18-Jul-2017 Instruction Type:Patient Education DISCONTINUED - PTT (Activate d Partial Thromboplastin Time) ([id number]) Indication:Fatty liver Start:18-Jul-2017 Instruction Type:Patient Education DISCONTINUED - PT (PROTHROMB IN TIME) ([id number]) Indication:Fatty liver Start:18-Jul-2017 Instruction Type:Patient Education DISCONTINUED - LIPID PANEL ( [id number]) Indication:Hyperlipidemia Start:18-Jul-2017 Instruction Type:Patient Education How to access health informa tion online Indication:Dysuria Start:18-Jul-2017 Instruction Type:Patient Education How to access health informa tion online - Detail Indication:Dysuria Start:18-Jul-2017 Instruction Type:Patient Education Patient Instructions Indication:Dysuria Start:18-Jul-2017 Instruction Type:Provider Instructions for Treatment How to access health informa tion online Indication:UTI symptoms Start:16-Dec-2016 Instruction Type:Patient Education How to access health informa tion online - Detail Indication:UTI symptoms Start:16-Dec-2016 Instruction Type:Patient Education Patient Instructions Indication:UTI symptoms Start:16-Dec-2016 Instruction Type:Provider Instructions for Treatment How to access health informa tion online Indication:UTI symptoms Start:23-Sep-2016 Instruction Type:Patient Education How to access health informa tion online - Detail Indication:UTI symptoms Start:23-Sep-2016 Instruction Type:Patient Education Patient Instructions Indication:UTI symptoms Start:23-Sep-2016 Instruction Type:Provider Instructions for Treatment How to access health informa tion online Indication:Impaired Fasting Glucose Start:06-Aug-2016 Instruction Type:Patient Education How to access health informa tion online - Detail Indication:Impaired Fasting Glucose Start:06-Aug-2016 Instruction Type:Patient Education Patient Instructions Indication:Impaired Fasting Glucose Start:06-Aug-2016 Instruction Type:Provider Instructions for Treatment How to access health informa tion online Indication:UTI symptoms Start:02-May-2016 Instruction Type:Patient Education How to access health informa tion online - Detail Indication:UTI symptoms Start:02-May-2016 Instruction Type:Patient Education Patient Instructions Indication:UTI symptoms Start:02-May-2016 Instruction Type:Provider Instructions for Treatment How to access health informa tion online Indication:UTI symptoms Start:19-Apr-2016 Instruction Type:Patient Education How to access health informa tion online - Detail Indication:UTI symptoms Start:19-Apr-2016 Instruction Type:Patient Education Patient Instructions Indication:UTI symptoms Start:19-Apr-2016 Instruction Type:Provider Instructions for Treatment How to access health informa tion online Indication:Sorethroat Start:14-Mar-2016 Instruction Type:Patient Education How to access health informa tion online - Detail Indication:Sorethroat Start:14-Mar-2016 Instruction Type:Patient Education Patient Instructions Indication:Sorethroat Start:14-Mar-2016 Instruction Type:Provider Instructions for Treatment How to access health informa tion online Indication:Impaired Fasting Glucose Start:11-Mar-2016 Instruction Type:Patient Education How to access health informa tion online - Detail Indication:Impaired Fasting Glucose Start:11-Mar-2016 Instruction Type:Patient Education Patient Instructions Indication:Impaired Fasting Glucose Start:11-Mar-2016 Instruction Type:Provider Instructions for Treatment How to access health informa tion online Indication:Impaired Fasting Glucose Start:09-Oct-2015 Instruction Type:Patient Education How to access health informa tion online - Detail Indication:Impaired Fasting Glucose Start:09-Oct-2015 Instruction Type:Patient Education Patient Instructions Indication:Impaired Fasting Glucose Start:09-Oct-2015 Instruction Type:Provider Instructions for Treatment Patient Instructions Indication:Impaired Fasting Glucose Start:21-Jun-2015 Instruction Type:Provider Instructions for Treatment How to access health informa tion online Indication:Poison debi Start:31-May-2015 Instruction Type:Patient Education How to access health informa tion online - Detail Indication:Poison debi Start:31-May-2015 Instruction Type:Patient Education Patient Instructions Indication:Poison debi Start:31-May-2015 Instruction Type:Provider Instructions for Treatment Patient Instructions Indication:Impaired Fasting Glucose Start:15-Feb-2015 Instruction Type:Provider Instructions for Treatment How to access health informa tion online Indication:Impaired Fasting Glucose Start:19-Oct-2014 Instruction Type:Patient Education How to access health informa tion online - Detail Indication:Impaired Fasting Glucose Start:19-Oct-2014 Instruction Type:Patient Education Patient Instructions Indication:Impaired Fasting Glucose Start:19-Oct-2014 Instruction Type:Provider Instructions for Treatment How to access health informa tion online Indication:Impaired Fasting Glucose Start:20-Jul-2014 Instruction Type:Patient Education How to access health informa tion online - Detail Indication:Impaired Fasting Glucose Start:20-Jul-2014 Instruction Type:Patient Education Patient Instructions Indication:Impaired Fasting Glucose Start:20-Jul-2014 Instruction Type:Provider Instructions for Treatment Patient Instructions Indication:Encounter for Medicare annual wellness exam Start:04-May-2014 Instruction Type:Provider Instructions for Treatment Patient Instructions Indication:Impaired Fasting Glucose Start:16-Mar-2014 Instruction Type:Provider Instructions for Treatment Patient Instructions Indication:Impaired Fasting Glucose Start:09-Nov-2013 Instruction Type:Provider Instructions for Treatment Patient Instructions Indication:Vaginal yeast infection Start:17-Aug-2013 Instruction Type:Provider Instructions for Treatment Patient Instructions Indication:Impaired Fasting Glucose Start:06-Aug-2013 Instruction Type:Provider Instructions for Treatment Patient Instructions Indication:Diverticulitis Start:30-Jun-2013 Instruction Type:Provider Instructions for Treatment [facility]; [facility] Work Phone: Instructions* Name Dates Details Patient Instructions Indication:BMI 31.0-31.9,adult Start:11-Dec-2021 Instruction Type:Provider Instructions for Treatment How to Access Health Informa tion Online using Patient Portal and [employer] Apps Indication:BMI 31.0-31.9,adult Start:11-Dec-2021 Instruction Type:Patient Education Patient Instructions Indication:Hyperlipidemia Start:26-Sep-2021 Instruction Type:Provider Instructions for Treatment How to Access Health Informa tion Online using Patient Portal and [employer] Apps Indication:Impaired Fasting Glucose Start:26-Sep-2021 Instruction Type:Patient Education Patient Instructions Indication:BMI 31.0-31.9,adult Start:08-Jun-2021 Instruction Type:Provider Instructions for Treatment How to Access Health Informa tion Online using Patient Portal and [employer] Apps Indication:Impaired Fasting Glucose Start:08-Jun-2021 Instruction Type:Patient Education Patient Instructions Indication:Nonsmoker Start:19-Feb-2021 Instruction Type:Provider Instructions for Treatment How to Access Health Informa tion Online using Patient Portal and [employer] Apps Indication:Nonsmoker Start:19-Feb-2021 Instruction Type:Patient Education Patient Instructions Indication:BMI 32.0-32.9,adult Start:30-Jan-2021 Instruction Type:Provider Instructions for Treatment How to Access Health Informa tion Online using Patient Portal and [employer] Apps Indication:BMI 32.0-32.9,adult Start:30-Jan-2021 Instruction Type:Patient Education Patient Instructions Indication:BMI 32.0-32.9,adult Start:03-Jan-2021 Instruction Type:Provider Instructions for Treatment How to Access Health Informa tion Online using Patient Portal and [employer] Apps Indication:BMI 32.0-32.9,adult Start:03-Jan-2021 Instruction Type:Patient Education How to access health informa tion online Indication:Nonsmoker Start:23-Oct-2020 Instruction Type:Patient Education How to access health informa tion online - Detail Indication:Nonsmoker Start:23-Oct-2020 Instruction Type:Patient Education Patient Instructions Indication:Nonsmoker Start:23-Oct-2020 Instruction Type:Provider Instructions for Treatment How to access health informa tion online Indication:Nonsmoker Start:18-Sep-2020 Instruction Type:Patient Education How to access health informa tion online - Detail Indication:Nonsmoker Start:18-Sep-2020 Instruction Type:Patient Education Patient Instructions Indication:Nonsmoker Start:18-Sep-2020 Instruction Type:Provider Instructions for Treatment How to access health informa tion online Indication:Nonsmoker Start:21-Jun-2020 Instruction Type:Patient Education How to access health informa tion online - Detail Indication:Nonsmoker Start:21-Jun-2020 Instruction Type:Patient Education Patient Instructions Indication:BMI 31.0-31.9,adult Start:21-Jun-2020 Instruction Type:Provider Instructions for Treatment How to access health informa tion online Indication:Nonsmoker Start:01-Mar-2020 Instruction Type:Patient Education How to access health informa tion online - Detail Indication:Nonsmoker Start:01-Mar-2020 Instruction Type:Patient Education Patient Instructions Indication:Nonsmoker Start:01-Mar-2020 Instruction Type:Provider Instructions for Treatment How to access health informa tion online Indication:BMI 32.0-32.9,adult Start:28-Feb-2020 Instruction Type:Patient Education How to access health informa tion online - Detail Indication:BMI 32.0-32.9,adult Start:28-Feb-2020 Instruction Type:Patient Education Patient Instructions Indication:BMI 32.0-32.9,adult Start:28-Feb-2020 Instruction Type:Provider Instructions for Treatment How to access health informa tion online Indication:Urinary frequency Start:14-Oct-2019 Instruction Type:Patient Education How to access health informa tion online - Detail Indication:Urinary frequency Start:14-Oct-2019 Instruction Type:Patient Education Patient Instructions Indication:Urinary frequency Start:14-Oct-2019 Instruction Type:Provider Instructions for Treatment How to access health informa tion online Indication:Urinary frequency Start:02-Dec-2018 Instruction Type:Patient Education How to access health informa tion online - Detail Indication:Urinary frequency Start:02-Dec-2018 Instruction Type:Patient Education Patient Instructions Indication:Urinary frequency Start:02-Dec-2018 Instruction Type:Provider Instructions for Treatment How to access health informa tion online Indication:Nonsmoker Start:27-Jul-2018 Instruction Type:Patient Education How to access health informa tion online - Detail Indication:Nonsmoker Start:27-Jul-2018 Instruction Type:Patient Education Patient Instructions Indication:Nonsmoker Start:27-Jul-2018 Instruction Type:Provider Instructions for Treatment How to access health informa tion online Indication:BMI 32.0-32.9,adult Start:16-Oct-2017 Instruction Type:Patient Education How to access health informa tion online - Detail Indication:BMI 32.0-32.9,adult Start:16-Oct-2017 Instruction Type:Patient Education Patient Instructions Indication:UTI (urinary tract infection) Start:16-Oct-2017 Instruction Type:Provider Instructions for Treatment DISCONTINUED - METABOLIC ESPITIA EL, COMPREHENSIVE (42930) Indication:Renal Insufficiency (Renamed from Impaired renal function) Start:18-Jul-2017 Instruction Type:Patient Education DISCONTINUED - [id number] ([id number]) Indication:Fatty liver Start:18-Jul-2017 Instruction Type:Patient Education DISCONTINUED - PTT (Activate d Partial Thromboplastin Time) (41313) Indication:Fatty liver Start:18-Jul-2017 Instruction Type:Patient Education DISCONTINUED - PT (PROTHROMB IN TIME) ([id number]) Indication:Fatty liver Start:18-Jul-2017 Instruction Type:Patient Education DISCONTINUED - LIPID PANEL ( [id number]) Indication:Hyperlipidemia Start:18-Jul-2017 Instruction Type:Patient Education How to access health informa tion online Indication:Dysuria Start:18-Jul-2017 Instruction Type:Patient Education How to access health informa tion online - Detail Indication:Dysuria Start:18-Jul-2017 Instruction Type:Patient Education Patient Instructions Indication:Dysuria Start:18-Jul-2017 Instruction Type:Provider Instructions for Treatment How to access health informa tion online Indication:UTI symptoms Start:16-Dec-2016 Instruction Type:Patient Education How to access health informa tion online - Detail Indication:UTI symptoms Start:16-Dec-2016 Instruction Type:Patient Education Patient Instructions Indication:UTI symptoms Start:16-Dec-2016 Instruction Type:Provider Instructions for Treatment How to access health informa tion online Indication:UTI symptoms Start:23-Sep-2016 Instruction Type:Patient Education How to access health informa tion online - Detail Indication:UTI symptoms Start:23-Sep-2016 Instruction Type:Patient Education Patient Instructions Indication:UTI symptoms Start:23-Sep-2016 Instruction Type:Provider Instructions for Treatment How to access health informa tion online Indication:Impaired Fasting Glucose Start:06-Aug-2016 Instruction Type:Patient Education How to access health informa tion online - Detail Indication:Impaired Fasting Glucose Start:06-Aug-2016 Instruction Type:Patient Education Patient Instructions Indication:Impaired Fasting Glucose Start:06-Aug-2016 Instruction Type:Provider Instructions for Treatment How to access health informa tion online Indication:UTI symptoms Start:02-May-2016 Instruction Type:Patient Education How to access health informa tion online - Detail Indication:UTI symptoms Start:02-May-2016 Instruction Type:Patient Education Patient Instructions Indication:UTI symptoms Start:02-May-2016 Instruction Type:Provider Instructions for Treatment How to access health informa tion online Indication:UTI symptoms Start:19-Apr-2016 Instruction Type:Patient Education How to access health informa tion online - Detail Indication:UTI symptoms Start:19-Apr-2016 Instruction Type:Patient Education Patient Instructions Indication:UTI symptoms Start:19-Apr-2016 Instruction Type:Provider Instructions for Treatment How to access health informa tion online Indication:Sorethroat Start:14-Mar-2016 Instruction Type:Patient Education How to access health informa tion online - Detail Indication:Sorethroat Start:14-Mar-2016 Instruction Type:Patient Education Patient Instructions Indication:Sorethroat Start:14-Mar-2016 Instruction Type:Provider Instructions for Treatment How to access health informa tion online Indication:Impaired Fasting Glucose Start:11-Mar-2016 Instruction Type:Patient Education How to access health informa tion online - Detail Indication:Impaired Fasting Glucose Start:11-Mar-2016 Instruction Type:Patient Education Patient Instructions Indication:Impaired Fasting Glucose Start:11-Mar-2016 Instruction Type:Provider Instructions for Treatment How to access health informa tion online Indication:Impaired Fasting Glucose Start:09-Oct-2015 Instruction Type:Patient Education How to access health informa tion online - Detail Indication:Impaired Fasting Glucose Start:09-Oct-2015 Instruction Type:Patient Education Patient Instructions Indication:Impaired Fasting Glucose Start:09-Oct-2015 Instruction Type:Provider Instructions for Treatment Patient Instructions Indication:Impaired Fasting Glucose Start:21-Jun-2015 Instruction Type:Provider Instructions for Treatment How to access health informa tion online Indication:Poison debi Start:31-May-2015 Instruction Type:Patient Education How to access health informa tion online - Detail Indication:Poison debi Start:31-May-2015 Instruction Type:Patient Education Patient Instructions Indication:Poison debi Start:31-May-2015 Instruction Type:Provider Instructions for Treatment Patient Instructions Indication:Impaired Fasting Glucose Start:15-Feb-2015 Instruction Type:Provider Instructions for Treatment How to access health informa tion online Indication:Impaired Fasting Glucose Start:19-Oct-2014 Instruction Type:Patient Education How to access health informa tion online - Detail Indication:Impaired Fasting Glucose Start:19-Oct-2014 Instruction Type:Patient Education Patient Instructions Indication:Impaired Fasting Glucose Start:19-Oct-2014 Instruction Type:Provider Instructions for Treatment How to access health informa tion online Indication:Impaired Fasting Glucose Start:20-Jul-2014 Instruction Type:Patient Education How to access health informa tion online - Detail Indication:Impaired Fasting Glucose Start:20-Jul-2014 Instruction Type:Patient Education Patient Instructions Indication:Impaired Fasting Glucose Start:20-Jul-2014 Instruction Type:Provider Instructions for Treatment Patient Instructions Indication:Encounter for Medicare annual wellness exam Start:04-May-2014 Instruction Type:Provider Instructions for Treatment Patient Instructions Indication:Impaired Fasting Glucose Start:16-Mar-2014 Instruction Type:Provider Instructions for Treatment Patient Instructions Indication:Impaired Fasting Glucose Start:09-Nov-2013 Instruction Type:Provider Instructions for Treatment Patient Instructions Indication:Vaginal yeast infection Start:17-Aug-2013 Instruction Type:Provider Instructions for Treatment Patient Instructions Indication:Impaired Fasting Glucose Start:06-Aug-2013 Instruction Type:Provider Instructions for Treatment Patient Instructions Indication:Diverticulitis Start:30-Jun-2013 Instruction Type:Provider Instructions for Treatment [facility]; [facility] Work Phone: Instructions* Name Dates Details Patient Instructions Indication:BMI 31.0-31.9,adult Start:11-Dec-2021 Instruction Type:Provider Instructions for Treatment How to Access Health Informa tion Online using Patient Portal and [employer] Apps Indication:BMI 31.0-31.9,adult Start:11-Dec-2021 Instruction Type:Patient Education Patient Instructions Indication:Hyperlipidemia Start:26-Sep-2021 Instruction Type:Provider Instructions for Treatment How to Access Health Informa tion Online using Patient Portal and [employer] Apps Indication:Impaired Fasting Glucose Start:26-Sep-2021 Instruction Type:Patient Education Patient Instructions Indication:BMI 31.0-31.9,adult Start:08-Jun-2021 Instruction Type:Provider Instructions for Treatment How to Access Health Informa tion Online using Patient Portal and [employer] Apps Indication:Impaired Fasting Glucose Start:08-Jun-2021 Instruction Type:Patient Education Patient Instructions Indication:Nonsmoker Start:19-Feb-2021 Instruction Type:Provider Instructions for Treatment How to Access Health Informa tion Online using Patient Portal and [employer] Apps Indication:Nonsmoker Start:19-Feb-2021 Instruction Type:Patient Education Patient Instructions Indication:BMI 32.0-32.9,adult Start:30-Jan-2021 Instruction Type:Provider Instructions for Treatment How to Access Health Informa tion Online using Patient Portal and [employer] Apps Indication:BMI 32.0-32.9,adult Start:30-Jan-2021 Instruction Type:Patient Education Patient Instructions Indication:BMI 32.0-32.9,adult Start:03-Jan-2021 Instruction Type:Provider Instructions for Treatment How to Access Health Informa tion Online using Patient Portal and [employer] Apps Indication:BMI 32.0-32.9,adult Start:03-Jan-2021 Instruction Type:Patient Education How to access health informa tion online Indication:Nonsmoker Start:23-Oct-2020 Instruction Type:Patient Education How to access health informa tion online - Detail Indication:Nonsmoker Start:23-Oct-2020 Instruction Type:Patient Education Patient Instructions Indication:Nonsmoker Start:23-Oct-2020 Instruction Type:Provider Instructions for Treatment How to access health informa tion online Indication:Nonsmoker Start:18-Sep-2020 Instruction Type:Patient Education How to access health informa tion online - Detail Indication:Nonsmoker Start:18-Sep-2020 Instruction Type:Patient Education Patient Instructions Indication:Nonsmoker Start:18-Sep-2020 Instruction Type:Provider Instructions for Treatment How to access health informa tion online Indication:Nonsmoker Start:21-Jun-2020 Instruction Type:Patient Education How to access health informa tion online - Detail Indication:Nonsmoker Start:21-Jun-2020 Instruction Type:Patient Education Patient Instructions Indication:BMI 31.0-31.9,adult Start:21-Jun-2020 Instruction Type:Provider Instructions for Treatment How to access health informa tion online Indication:Nonsmoker Start:01-Mar-2020 Instruction Type:Patient Education How to access health informa tion online - Detail Indication:Nonsmoker Start:01-Mar-2020 Instruction Type:Patient Education Patient Instructions Indication:Nonsmoker Start:01-Mar-2020 Instruction Type:Provider Instructions for Treatment How to access health informa tion online Indication:BMI 32.0-32.9,adult Start:28-Feb-2020 Instruction Type:Patient Education How to access health informa tion online - Detail Indication:BMI 32.0-32.9,adult Start:28-Feb-2020 Instruction Type:Patient Education Patient Instructions Indication:BMI 32.0-32.9,adult Start:28-Feb-2020 Instruction Type:Provider Instructions for Treatment How to access health informa tion online Indication:Urinary frequency Start:14-Oct-2019 Instruction Type:Patient Education How to access health informa tion online - Detail Indication:Urinary frequency Start:14-Oct-2019 Instruction Type:Patient Education Patient Instructions Indication:Urinary frequency Start:14-Oct-2019 Instruction Type:Provider Instructions for Treatment How to access health informa tion online Indication:Urinary frequency Start:02-Dec-2018 Instruction Type:Patient Education How to access health informa tion online - Detail Indication:Urinary frequency Start:02-Dec-2018 Instruction Type:Patient Education Patient Instructions Indication:Urinary frequency Start:02-Dec-2018 Instruction Type:Provider Instructions for Treatment How to access health informa tion online Indication:Nonsmoker Start:27-Jul-2018 Instruction Type:Patient Education How to access health informa tion online - Detail Indication:Nonsmoker Start:27-Jul-2018 Instruction Type:Patient Education Patient Instructions Indication:Nonsmoker Start:27-Jul-2018 Instruction Type:Provider Instructions for Treatment How to access health informa tion online Indication:BMI 32.0-32.9,adult Start:16-Oct-2017 Instruction Type:Patient Education How to access health informa tion online - Detail Indication:BMI 32.0-32.9,adult Start:16-Oct-2017 Instruction Type:Patient Education Patient Instructions Indication:UTI (urinary tract infection) Start:16-Oct-2017 Instruction Type:Provider Instructions for Treatment DISCONTINUED - METABOLIC ESPITIA EL, COMPREHENSIVE (84221) Indication:Renal Insufficiency (Renamed from Impaired renal function) Start:18-Jul-2017 Instruction Type:Patient Education DISCONTINUED - [id number] ([id number]) Indication:Fatty liver Start:18-Jul-2017 Instruction Type:Patient Education DISCONTINUED - PTT (Activate d Partial Thromboplastin Time) ([id number]) Indication:Fatty liver Start:18-Jul-2017 Instruction Type:Patient Education DISCONTINUED - PT (PROTHROMB IN TIME) ([id number]) Indication:Fatty liver Start:18-Jul-2017 Instruction Type:Patient Education DISCONTINUED - LIPID PANEL ( [id number]) Indication:Hyperlipidemia Start:18-Jul-2017 Instruction Type:Patient Education How to access health informa tion online Indication:Dysuria Start:18-Jul-2017 Instruction Type:Patient Education How to access health informa tion online - Detail Indication:Dysuria Start:18-Jul-2017 Instruction Type:Patient Education Patient Instructions Indication:Dysuria Start:18-Jul-2017 Instruction Type:Provider Instructions for Treatment How to access health informa tion online Indication:UTI symptoms Start:16-Dec-2016 Instruction Type:Patient Education How to access health informa tion online - Detail Indication:UTI symptoms Start:16-Dec-2016 Instruction Type:Patient Education Patient Instructions Indication:UTI symptoms Start:16-Dec-2016 Instruction Type:Provider Instructions for Treatment How to access health informa tion online Indication:UTI symptoms Start:23-Sep-2016 Instruction Type:Patient Education How to access health informa tion online - Detail Indication:UTI symptoms Start:23-Sep-2016 Instruction Type:Patient Education Patient Instructions Indication:UTI symptoms Start:23-Sep-2016 Instruction Type:Provider Instructions for Treatment How to access health informa tion online Indication:Impaired Fasting Glucose Start:06-Aug-2016 Instruction Type:Patient Education How to access health informa tion online - Detail Indication:Impaired Fasting Glucose Start:06-Aug-2016 Instruction Type:Patient Education Patient Instructions Indication:Impaired Fasting Glucose Start:06-Aug-2016 Instruction Type:Provider Instructions for Treatment How to access health informa tion online Indication:UTI symptoms Start:02-May-2016 Instruction Type:Patient Education How to access health informa tion online - Detail Indication:UTI symptoms Start:02-May-2016 Instruction Type:Patient Education Patient Instructions Indication:UTI symptoms Start:02-May-2016 Instruction Type:Provider Instructions for Treatment How to access health informa tion online Indication:UTI symptoms Start:19-Apr-2016 Instruction Type:Patient Education How to access health informa tion online - Detail Indication:UTI symptoms Start:19-Apr-2016 Instruction Type:Patient Education Patient Instructions Indication:UTI symptoms Start:19-Apr-2016 Instruction Type:Provider Instructions for Treatment How to access health informa tion online Indication:Sorethroat Start:14-Mar-2016 Instruction Type:Patient Education How to access health informa tion online - Detail Indication:Sorethroat Start:14-Mar-2016 Instruction Type:Patient Education Patient Instructions Indication:Sorethroat Start:14-Mar-2016 Instruction Type:Provider Instructions for Treatment How to access health informa tion online Indication:Impaired Fasting Glucose Start:11-Mar-2016 Instruction Type:Patient Education How to access health informa tion online - Detail Indication:Impaired Fasting Glucose Start:11-Mar-2016 Instruction Type:Patient Education Patient Instructions Indication:Impaired Fasting Glucose Start:11-Mar-2016 Instruction Type:Provider Instructions for Treatment How to access health informa tion online Indication:Impaired Fasting Glucose Start:09-Oct-2015 Instruction Type:Patient Education How to access health informa tion online - Detail Indication:Impaired Fasting Glucose Start:09-Oct-2015 Instruction Type:Patient Education Patient Instructions Indication:Impaired Fasting Glucose Start:09-Oct-2015 Instruction Type:Provider Instructions for Treatment Patient Instructions Indication:Impaired Fasting Glucose Start:21-Jun-2015 Instruction Type:Provider Instructions for Treatment How to access health informa tion online Indication:Poison debi Start:31-May-2015 Instruction Type:Patient Education How to access health informa tion online - Detail Indication:Poison debi Start:31-May-2015 Instruction Type:Patient Education Patient Instructions Indication:Poison debi Start:31-May-2015 Instruction Type:Provider Instructions for Treatment Patient Instructions Indication:Impaired Fasting Glucose Start:15-Feb-2015 Instruction Type:Provider Instructions for Treatment How to access health informa tion online Indication:Impaired Fasting Glucose Start:19-Oct-2014 Instruction Type:Patient Education How to access health informa tion online - Detail Indication:Impaired Fasting Glucose Start:19-Oct-2014 Instruction Type:Patient Education Patient Instructions Indication:Impaired Fasting Glucose Start:19-Oct-2014 Instruction Type:Provider Instructions for Treatment How to access health informa tion online Indication:Impaired Fasting Glucose Start:20-Jul-2014 Instruction Type:Patient Education How to access health informa tion online - Detail Indication:Impaired Fasting Glucose Start:20-Jul-2014 Instruction Type:Patient Education Patient Instructions Indication:Impaired Fasting Glucose Start:20-Jul-2014 Instruction Type:Provider Instructions for Treatment Patient Instructions Indication:Encounter for Medicare annual wellness exam Start:04-May-2014 Instruction Type:Provider Instructions for Treatment Patient Instructions Indication:Impaired Fasting Glucose Start:16-Mar-2014 Instruction Type:Provider Instructions for Treatment Patient Instructions Indication:Impaired Fasting Glucose Start:09-Nov-2013 Instruction Type:Provider Instructions for Treatment Patient Instructions Indication:Vaginal yeast infection Start:17-Aug-2013 Instruction Type:Provider Instructions for Treatment Patient Instructions Indication:Impaired Fasting Glucose Start:06-Aug-2013 Instruction Type:Provider Instructions for Treatment Patient Instructions Indication:Diverticulitis Start:30-Jun-2013 Instruction Type:Provider Instructions for Treatment [facility]; [facility] Work Phone: Instructions* Name Dates Details Patient Instructions Indication:BMI 31.0-31.9,adult Start:11-Mar-2022 Instruction Type:Provider Instructions for Treatment How to Access Health Informa tion Online using Patient Portal and [employer] Apps Indication:BMI 31.0-31.9,adult Start:11-Mar-2022 Instruction Type:Patient Education Patient Instructions Indication:BMI 31.0-31.9,adult Start:11-Dec-2021 Instruction Type:Provider Instructions for Treatment How to Access Health Informa tion Online using Patient Portal and [employer] Apps Indication:BMI 31.0-31.9,adult Start:11-Dec-2021 Instruction Type:Patient Education Patient Instructions Indication:Hyperlipidemia Start:26-Sep-2021 Instruction Type:Provider Instructions for Treatment How to Access Health Informa tion Online using Patient Portal and [employer] Apps Indication:Impaired Fasting Glucose Start:26-Sep-2021 Instruction Type:Patient Education Patient Instructions Indication:BMI 31.0-31.9,adult Start:08-Jun-2021 Instruction Type:Provider Instructions for Treatment How to Access Health Informa tion Online using Patient Portal and [employer] Apps Indication:Impaired Fasting Glucose Start:08-Jun-2021 Instruction Type:Patient Education Patient Instructions Indication:Nonsmoker Start:19-Feb-2021 Instruction Type:Provider Instructions for Treatment How to Access Health Informa tion Online using Patient Portal and [employer] Apps Indication:Nonsmoker Start:19-Feb-2021 Instruction Type:Patient Education Patient Instructions Indication:BMI 32.0-32.9,adult Start:30-Jan-2021 Instruction Type:Provider Instructions for Treatment How to Access Health Informa tion Online using Patient Portal and [employer] Apps Indication:BMI 32.0-32.9,adult Start:30-Jan-2021 Instruction Type:Patient Education Patient Instructions Indication:BMI 32.0-32.9,adult Start:03-Jan-2021 Instruction Type:Provider Instructions for Treatment How to Access Health Informa tion Online using Patient Portal and [employer] Apps Indication:BMI 32.0-32.9,adult Start:03-Jan-2021 Instruction Type:Patient Education How to access health informa tion online Indication:Nonsmoker Start:23-Oct-2020 Instruction Type:Patient Education How to access health informa tion online - Detail Indication:Nonsmoker Start:23-Oct-2020 Instruction Type:Patient Education Patient Instructions Indication:Nonsmoker Start:23-Oct-2020 Instruction Type:Provider Instructions for Treatment How to access health informa tion online Indication:Nonsmoker Start:18-Sep-2020 Instruction Type:Patient Education How to access health informa tion online - Detail Indication:Nonsmoker Start:18-Sep-2020 Instruction Type:Patient Education Patient Instructions Indication:Nonsmoker Start:18-Sep-2020 Instruction Type:Provider Instructions for Treatment How to access health informa tion online Indication:Nonsmoker Start:21-Jun-2020 Instruction Type:Patient Education How to access health informa tion online - Detail Indication:Nonsmoker Start:21-Jun-2020 Instruction Type:Patient Education Patient Instructions Indication:BMI 31.0-31.9,adult Start:21-Jun-2020 Instruction Type:Provider Instructions for Treatment How to access health informa tion online Indication:Nonsmoker Start:01-Mar-2020 Instruction Type:Patient Education How to access health informa tion online - Detail Indication:Nonsmoker Start:01-Mar-2020 Instruction Type:Patient Education Patient Instructions Indication:Nonsmoker Start:01-Mar-2020 Instruction Type:Provider Instructions for Treatment How to access health informa tion online Indication:BMI 32.0-32.9,adult Start:28-Feb-2020 Instruction Type:Patient Education How to access health informa tion online - Detail Indication:BMI 32.0-32.9,adult Start:28-Feb-2020 Instruction Type:Patient Education Patient Instructions Indication:BMI 32.0-32.9,adult Start:28-Feb-2020 Instruction Type:Provider Instructions for Treatment How to access health informa tion online Indication:Urinary frequency Start:14-Oct-2019 Instruction Type:Patient Education How to access health informa tion online - Detail Indication:Urinary frequency Start:14-Oct-2019 Instruction Type:Patient Education Patient Instructions Indication:Urinary frequency Start:14-Oct-2019 Instruction Type:Provider Instructions for Treatment How to access health informa tion online Indication:Urinary frequency Start:02-Dec-2018 Instruction Type:Patient Education How to access health informa tion online - Detail Indication:Urinary frequency Start:02-Dec-2018 Instruction Type:Patient Education Patient Instructions Indication:Urinary frequency Start:02-Dec-2018 Instruction Type:Provider Instructions for Treatment How to access health informa tion online Indication:Nonsmoker Start:27-Jul-2018 Instruction Type:Patient Education How to access health informa tion online - Detail Indication:Nonsmoker Start:27-Jul-2018 Instruction Type:Patient Education Patient Instructions Indication:Nonsmoker Start:27-Jul-2018 Instruction Type:Provider Instructions for Treatment How to access health informa tion online Indication:BMI 32.0-32.9,adult Start:16-Oct-2017 Instruction Type:Patient Education How to access health informa tion online - Detail Indication:BMI 32.0-32.9,adult Start:16-Oct-2017 Instruction Type:Patient Education Patient Instructions Indication:UTI (urinary tract infection) Start:16-Oct-2017 Instruction Type:Provider Instructions for Treatment DISCONTINUED - METABOLIC ESPITIA EL, COMPREHENSIVE (02657) Indication:Renal Insufficiency (Renamed from Impaired renal function) Start:18-Jul-2017 Instruction Type:Patient Education DISCONTINUED - [id number] ([id number]) Indication:Fatty liver Start:18-Jul-2017 Instruction Type:Patient Education DISCONTINUED - PTT (Activate d Partial Thromboplastin Time) ([id number]) Indication:Fatty liver Start:18-Jul-2017 Instruction Type:Patient Education DISCONTINUED - PT (PROTHROMB IN TIME) ([id number]) Indication:Fatty liver Start:18-Jul-2017 Instruction Type:Patient Education DISCONTINUED - LIPID PANEL ( [id number]) Indication:Hyperlipidemia Start:18-Jul-2017 Instruction Type:Patient Education How to access health informa tion online Indication:Dysuria Start:18-Jul-2017 Instruction Type:Patient Education How to access health informa tion online - Detail Indication:Dysuria Start:18-Jul-2017 Instruction Type:Patient Education Patient Instructions Indication:Dysuria Start:18-Jul-2017 Instruction Type:Provider Instructions for Treatment How to access health informa tion online Indication:UTI symptoms Start:16-Dec-2016 Instruction Type:Patient Education How to access health informa tion online - Detail Indication:UTI symptoms Start:16-Dec-2016 Instruction Type:Patient Education Patient Instructions Indication:UTI symptoms Start:16-Dec-2016 Instruction Type:Provider Instructions for Treatment How to access health informa tion online Indication:UTI symptoms Start:23-Sep-2016 Instruction Type:Patient Education How to access health informa tion online - Detail Indication:UTI symptoms Start:23-Sep-2016 Instruction Type:Patient Education Patient Instructions Indication:UTI symptoms Start:23-Sep-2016 Instruction Type:Provider Instructions for Treatment How to access health informa tion online Indication:Impaired Fasting Glucose Start:06-Aug-2016 Instruction Type:Patient Education How to access health informa tion online - Detail Indication:Impaired Fasting Glucose Start:06-Aug-2016 Instruction Type:Patient Education Patient Instructions Indication:Impaired Fasting Glucose Start:06-Aug-2016 Instruction Type:Provider Instructions for Treatment How to access health informa tion online Indication:UTI symptoms Start:02-May-2016 Instruction Type:Patient Education How to access health informa tion online - Detail Indication:UTI symptoms Start:02-May-2016 Instruction Type:Patient Education Patient Instructions Indication:UTI symptoms Start:02-May-2016 Instruction Type:Provider Instructions for Treatment How to access health informa tion online Indication:UTI symptoms Start:19-Apr-2016 Instruction Type:Patient Education How to access health informa tion online - Detail Indication:UTI symptoms Start:19-Apr-2016 Instruction Type:Patient Education Patient Instructions Indication:UTI symptoms Start:19-Apr-2016 Instruction Type:Provider Instructions for Treatment How to access health informa tion online Indication:Sorethroat Start:14-Mar-2016 Instruction Type:Patient Education How to access health informa tion online - Detail Indication:Sorethroat Start:14-Mar-2016 Instruction Type:Patient Education Patient Instructions Indication:Sorethroat Start:14-Mar-2016 Instruction Type:Provider Instructions for Treatment How to access health informa tion online Indication:Impaired Fasting Glucose Start:11-Mar-2016 Instruction Type:Patient Education How to access health informa tion online - Detail Indication:Impaired Fasting Glucose Start:11-Mar-2016 Instruction Type:Patient Education Patient Instructions Indication:Impaired Fasting Glucose Start:11-Mar-2016 Instruction Type:Provider Instructions for Treatment How to access health informa tion online Indication:Impaired Fasting Glucose Start:09-Oct-2015 Instruction Type:Patient Education How to access health informa tion online - Detail Indication:Impaired Fasting Glucose Start:09-Oct-2015 Instruction Type:Patient Education Patient Instructions Indication:Impaired Fasting Glucose Start:09-Oct-2015 Instruction Type:Provider Instructions for Treatment Patient Instructions Indication:Impaired Fasting Glucose Start:21-Jun-2015 Instruction Type:Provider Instructions for Treatment How to access health informa tion online Indication:Poison debi Start:31-May-2015 Instruction Type:Patient Education How to access health informa tion online - Detail Indication:Poison debi Start:31-May-2015 Instruction Type:Patient Education Patient Instructions Indication:Poison debi Start:31-May-2015 Instruction Type:Provider Instructions for Treatment Patient Instructions Indication:Impaired Fasting Glucose Start:15-Feb-2015 Instruction Type:Provider Instructions for Treatment How to access health informa tion online Indication:Impaired Fasting Glucose Start:19-Oct-2014 Instruction Type:Patient Education How to access health informa tion online - Detail Indication:Impaired Fasting Glucose Start:19-Oct-2014 Instruction Type:Patient Education Patient Instructions Indication:Impaired Fasting Glucose Start:19-Oct-2014 Instruction Type:Provider Instructions for Treatment How to access health informa tion online Indication:Impaired Fasting Glucose Start:20-Jul-2014 Instruction Type:Patient Education How to access health informa tion online - Detail Indication:Impaired Fasting Glucose Start:20-Jul-2014 Instruction Type:Patient Education Patient Instructions Indication:Impaired Fasting Glucose Start:20-Jul-2014 Instruction Type:Provider Instructions for Treatment Patient Instructions Indication:Encounter for Medicare annual wellness exam Start:04-May-2014 Instruction Type:Provider Instructions for Treatment Patient Instructions Indication:Impaired Fasting Glucose Start:16-Mar-2014 Instruction Type:Provider Instructions for Treatment Patient Instructions Indication:Impaired Fasting Glucose Start:09-Nov-2013 Instruction Type:Provider Instructions for Treatment Patient Instructions Indication:Vaginal yeast infection Start:17-Aug-2013 Instruction Type:Provider Instructions for Treatment Patient Instructions Indication:Impaired Fasting Glucose Start:06-Aug-2013 Instruction Type:Provider Instructions for Treatment Patient Instructions Indication:Diverticulitis Start:30-Jun-2013 Instruction Type:Provider Instructions for Treatment [facility]; [facility] Work Phone: Instructions* Name Dates Details Patient Instructions Indication:BMI 31.0-31.9,adult Start:11-Mar-2022 Instruction Type:Provider Instructions for Treatment How to Access Health Informa tion Online using Patient Portal and 3rd [employer] Apps Indication:BMI 31.0-31.9,adult Start:11-Mar-2022 Instruction Type:Patient Education Patient Instructions Indication:BMI 31.0-31.9,adult Start:11-Dec-2021 Instruction Type:Provider Instructions for Treatment How to Access Health Informa tion Online using Patient Portal and 3rd [employer] Apps Indication:BMI 31.0-31.9,adult Start:11-Dec-2021 Instruction Type:Patient Education Patient Instructions Indication:Hyperlipidemia Start:26-Sep-2021 Instruction Type:Provider Instructions for Treatment How to Access Health Informa tion Online using Patient Portal and 3rd [employer] Apps Indication:Impaired Fasting Glucose Start:26-Sep-2021 Instruction Type:Patient Education Patient Instructions Indication:BMI 31.0-31.9,adult Start:08-Jun-2021 Instruction Type:Provider Instructions for Treatment How to Access Health Informa tion Online using Patient Portal and 3rd [employer] Apps Indication:Impaired Fasting Glucose Start:08-Jun-2021 Instruction Type:Patient Education Patient Instructions Indication:Nonsmoker Start:19-Feb-2021 Instruction Type:Provider Instructions for Treatment How to Access Health Informa tion Online using Patient Portal and 3rd [employer] Apps Indication:Nonsmoker Start:19-Feb-2021 Instruction Type:Patient Education Patient Instructions Indication:BMI 32.0-32.9,adult Start:30-Jan-2021 Instruction Type:Provider Instructions for Treatment How to Access Health Informa tion Online using Patient Portal and 3rd [employer] Apps Indication:BMI 32.0-32.9,adult Start:30-Jan-2021 Instruction Type:Patient Education Patient Instructions Indication:BMI 32.0-32.9,adult Start:03-Jan-2021 Instruction Type:Provider Instructions for Treatment How to Access Health Informa tion Online using Patient Portal and 3rd [employer] Apps Indication:BMI 32.0-32.9,adult Start:03-Jan-2021 Instruction Type:Patient Education How to access health informa tion online Indication:Nonsmoker Start:23-Oct-2020 Instruction Type:Patient Education How to access health informa tion online - Detail Indication:Nonsmoker Start:23-Oct-2020 Instruction Type:Patient Education Patient Instructions Indication:Nonsmoker Start:23-Oct-2020 Instruction Type:Provider Instructions for Treatment How to access health informa tion online Indication:Nonsmoker Start:18-Sep-2020 Instruction Type:Patient Education How to access health informa tion online - Detail Indication:Nonsmoker Start:18-Sep-2020 Instruction Type:Patient Education Patient Instructions Indication:Nonsmoker Start:18-Sep-2020 Instruction Type:Provider Instructions for Treatment How to access health informa tion online Indication:Nonsmoker Start:21-Jun-2020 Instruction Type:Patient Education How to access health informa tion online - Detail Indication:Nonsmoker Start:21-Jun-2020 Instruction Type:Patient Education Patient Instructions Indication:BMI 31.0-31.9,adult Start:21-Jun-2020 Instruction Type:Provider Instructions for Treatment How to access health informa tion online Indication:Nonsmoker Start:01-Mar-2020 Instruction Type:Patient Education How to access health informa tion online - Detail Indication:Nonsmoker Start:01-Mar-2020 Instruction Type:Patient Education Patient Instructions Indication:Nonsmoker Start:01-Mar-2020 Instruction Type:Provider Instructions for Treatment How to access health informa tion online Indication:BMI 32.0-32.9,adult Start:28-Feb-2020 Instruction Type:Patient Education How to access health informa tion online - Detail Indication:BMI 32.0-32.9,adult Start:28-Feb-2020 Instruction Type:Patient Education Patient Instructions Indication:BMI 32.0-32.9,adult Start:28-Feb-2020 Instruction Type:Provider Instructions for Treatment How to access health informa tion online Indication:Urinary frequency Start:14-Oct-2019 Instruction Type:Patient Education How to access health informa tion online - Detail Indication:Urinary frequency Start:14-Oct-2019 Instruction Type:Patient Education Patient Instructions Indication:Urinary frequency Start:14-Oct-2019 Instruction Type:Provider Instructions for Treatment How to access health informa tion online Indication:Urinary frequency Start:02-Dec-2018 Instruction Type:Patient Education How to access health informa tion online - Detail Indication:Urinary frequency Start:02-Dec-2018 Instruction Type:Patient Education Patient Instructions Indication:Urinary frequency Start:02-Dec-2018 Instruction Type:Provider Instructions for Treatment How to access health informa tion online Indication:Nonsmoker Start:27-Jul-2018 Instruction Type:Patient Education How to access health informa tion online - Detail Indication:Nonsmoker Start:27-Jul-2018 Instruction Type:Patient Education Patient Instructions Indication:Nonsmoker Start:27-Jul-2018 Instruction Type:Provider Instructions for Treatment How to access health informa tion online Indication:BMI 32.0-32.9,adult Start:16-Oct-2017 Instruction Type:Patient Education How to access health informa tion online - Detail Indication:BMI 32.0-32.9,adult Start:16-Oct-2017 Instruction Type:Patient Education Patient Instructions Indication:UTI (urinary tract infection) Start:16-Oct-2017 Instruction Type:Provider Instructions for Treatment DISCONTINUED - METABOLIC ESPITIA EL, COMPREHENSIVE ([id number]) Indication:Renal Insufficiency (Renamed from Impaired renal function) Start:18-Jul-2017 Instruction Type:Patient Education DISCONTINUED - [id number] ([id number]) Indication:Fatty liver Start:18-Jul-2017 Instruction Type:Patient Education DISCONTINUED - PTT (Activate d Partial Thromboplastin Time) ([id number]) Indication:Fatty liver Start:18-Jul-2017 Instruction Type:Patient Education DISCONTINUED - PT (PROTHROMB IN TIME) ([id number]) Indication:Fatty liver Start:18-Jul-2017 Instruction Type:Patient Education DISCONTINUED - LIPID PANEL ( [id number]) Indication:Hyperlipidemia Start:18-Jul-2017 Instruction Type:Patient Education How to access health informa tion online Indication:Dysuria Start:18-Jul-2017 Instruction Type:Patient Education How to access health informa tion online - Detail Indication:Dysuria Start:18-Jul-2017 Instruction Type:Patient Education Patient Instructions Indication:Dysuria Start:18-Jul-2017 Instruction Type:Provider Instructions for Treatment How to access health informa tion online Indication:UTI symptoms Start:16-Dec-2016 Instruction Type:Patient Education How to access health informa tion online - Detail Indication:UTI symptoms Start:16-Dec-2016 Instruction Type:Patient Education Patient Instructions Indication:UTI symptoms Start:16-Dec-2016 Instruction Type:Provider Instructions for Treatment How to access health informa tion online Indication:UTI symptoms Start:23-Sep-2016 Instruction Type:Patient Education How to access health informa tion online - Detail Indication:UTI symptoms Start:23-Sep-2016 Instruction Type:Patient Education Patient Instructions Indication:UTI symptoms Start:23-Sep-2016 Instruction Type:Provider Instructions for Treatment How to access health informa tion online Indication:Impaired Fasting Glucose Start:06-Aug-2016 Instruction Type:Patient Education How to access health informa tion online - Detail Indication:Impaired Fasting Glucose Start:06-Aug-2016 Instruction Type:Patient Education Patient Instructions Indication:Impaired Fasting Glucose Start:06-Aug-2016 Instruction Type:Provider Instructions for Treatment How to access health informa tion online Indication:UTI symptoms Start:02-May-2016 Instruction Type:Patient Education How to access health informa tion online - Detail Indication:UTI symptoms Start:02-May-2016 Instruction Type:Patient Education Patient Instructions Indication:UTI symptoms Start:02-May-2016 Instruction Type:Provider Instructions for Treatment How to access health informa tion online Indication:UTI symptoms Start:19-Apr-2016 Instruction Type:Patient Education How to access health informa tion online - Detail Indication:UTI symptoms Start:19-Apr-2016 Instruction Type:Patient Education Patient Instructions Indication:UTI symptoms Start:19-Apr-2016 Instruction Type:Provider Instructions for Treatment How to access health informa tion online Indication:Sorethroat Start:14-Mar-2016 Instruction Type:Patient Education How to access health informa tion online - Detail Indication:Sorethroat Start:14-Mar-2016 Instruction Type:Patient Education Patient Instructions Indication:Sorethroat Start:14-Mar-2016 Instruction Type:Provider Instructions for Treatment How to access health informa tion online Indication:Impaired Fasting Glucose Start:11-Mar-2016 Instruction Type:Patient Education How to access health informa tion online - Detail Indication:Impaired Fasting Glucose Start:11-Mar-2016 Instruction Type:Patient Education Patient Instructions Indication:Impaired Fasting Glucose Start:11-Mar-2016 Instruction Type:Provider Instructions for Treatment How to access health informa tion online Indication:Impaired Fasting Glucose Start:09-Oct-2015 Instruction Type:Patient Education How to access health informa tion online - Detail Indication:Impaired Fasting Glucose Start:09-Oct-2015 Instruction Type:Patient Education Patient Instructions Indication:Impaired Fasting Glucose Start:09-Oct-2015 Instruction Type:Provider Instructions for Treatment Patient Instructions Indication:Impaired Fasting Glucose Start:21-Jun-2015 Instruction Type:Provider Instructions for Treatment How to access health informa tion online Indication:Poison debi Start:31-May-2015 Instruction Type:Patient Education How to access health informa tion online - Detail Indication:Poison debi Start:31-May-2015 Instruction Type:Patient Education Patient Instructions Indication:Poison debi Start:31-May-2015 Instruction Type:Provider Instructions for Treatment Patient Instructions Indication:Impaired Fasting Glucose Start:15-Feb-2015 Instruction Type:Provider Instructions for Treatment How to access health informa tion online Indication:Impaired Fasting Glucose Start:19-Oct-2014 Instruction Type:Patient Education How to access health informa tion online - Detail Indication:Impaired Fasting Glucose Start:19-Oct-2014 Instruction Type:Patient Education Patient Instructions Indication:Impaired Fasting Glucose Start:19-Oct-2014 Instruction Type:Provider Instructions for Treatment How to access health informa tion online Indication:Impaired Fasting Glucose Start:20-Jul-2014 Instruction Type:Patient Education How to access health informa tion online - Detail Indication:Impaired Fasting Glucose Start:20-Jul-2014 Instruction Type:Patient Education Patient Instructions Indication:Impaired Fasting Glucose Start:20-Jul-2014 Instruction Type:Provider Instructions for Treatment Patient Instructions Indication:Encounter for Medicare annual wellness exam Start:04-May-2014 Instruction Type:Provider Instructions for Treatment Patient Instructions Indication:Impaired Fasting Glucose Start:16-Mar-2014 Instruction Type:Provider Instructions for Treatment Patient Instructions Indication:Impaired Fasting Glucose Start:09-Nov-2013 Instruction Type:Provider Instructions for Treatment Patient Instructions Indication:Vaginal yeast infection Start:17-Aug-2013 Instruction Type:Provider Instructions for Treatment Patient Instructions Indication:Impaired Fasting Glucose Start:06-Aug-2013 Instruction Type:Provider Instructions for Treatment Patient Instructions Indication:Diverticulitis Start:30-Jun-2013 Instruction Type:Provider Instructions for Treatment [facility]; [facility] Work Phone: Instructions* Name Dates Details Patient Instructions Indication:BMI 31.0-31.9,adult Start:11-Mar-2022 Instruction Type:Provider Instructions for Treatment How to Access Health Informa tion Online using Patient Portal and 3rd [employer] Apps Indication:BMI 31.0-31.9,adult Start:11-Mar-2022 Instruction Type:Patient Education Patient Instructions Indication:BMI 31.0-31.9,adult Start:11-Dec-2021 Instruction Type:Provider Instructions for Treatment How to Access Health Informa tion Online using Patient Portal and 3rd [employer] Apps Indication:BMI 31.0-31.9,adult Start:11-Dec-2021 Instruction Type:Patient Education Patient Instructions Indication:Hyperlipidemia Start:26-Sep-2021 Instruction Type:Provider Instructions for Treatment How to Access Health Informa tion Online using Patient Portal and 3rd [employer] Apps Indication:Impaired Fasting Glucose Start:26-Sep-2021 Instruction Type:Patient Education Patient Instructions Indication:BMI 31.0-31.9,adult Start:08-Jun-2021 Instruction Type:Provider Instructions for Treatment How to Access Health Informa tion Online using Patient Portal and 3rd [employer] Apps Indication:Impaired Fasting Glucose Start:08-Jun-2021 Instruction Type:Patient Education Patient Instructions Indication:Nonsmoker Start:19-Feb-2021 Instruction Type:Provider Instructions for Treatment How to Access Health Informa tion Online using Patient Portal and 3rd [employer] Apps Indication:Nonsmoker Start:19-Feb-2021 Instruction Type:Patient Education Patient Instructions Indication:BMI 32.0-32.9,adult Start:30-Jan-2021 Instruction Type:Provider Instructions for Treatment How to Access Health Informa tion Online using Patient Portal and 3rd [employer] Apps Indication:BMI 32.0-32.9,adult Start:30-Jan-2021 Instruction Type:Patient Education Patient Instructions Indication:BMI 32.0-32.9,adult Start:03-Jan-2021 Instruction Type:Provider Instructions for Treatment How to Access Health Informa tion Online using Patient Portal and 3rd [employer] Apps Indication:BMI 32.0-32.9,adult Start:03-Jan-2021 Instruction Type:Patient Education How to access health informa tion online Indication:Nonsmoker Start:23-Oct-2020 Instruction Type:Patient Education How to access health informa tion online - Detail Indication:Nonsmoker Start:23-Oct-2020 Instruction Type:Patient Education Patient Instructions Indication:Nonsmoker Start:23-Oct-2020 Instruction Type:Provider Instructions for Treatment How to access health informa tion online Indication:Nonsmoker Start:18-Sep-2020 Instruction Type:Patient Education How to access health informa tion online - Detail Indication:Nonsmoker Start:18-Sep-2020 Instruction Type:Patient Education Patient Instructions Indication:Nonsmoker Start:18-Sep-2020 Instruction Type:Provider Instructions for Treatment How to access health informa tion online Indication:Nonsmoker Start:21-Jun-2020 Instruction Type:Patient Education How to access health informa tion online - Detail Indication:Nonsmoker Start:21-Jun-2020 Instruction Type:Patient Education Patient Instructions Indication:BMI 31.0-31.9,adult Start:21-Jun-2020 Instruction Type:Provider Instructions for Treatment How to access health informa tion online Indication:Nonsmoker Start:01-Mar-2020 Instruction Type:Patient Education How to access health informa tion online - Detail Indication:Nonsmoker Start:01-Mar-2020 Instruction Type:Patient Education Patient Instructions Indication:Nonsmoker Start:01-Mar-2020 Instruction Type:Provider Instructions for Treatment How to access health informa tion online Indication:BMI 32.0-32.9,adult Start:28-Feb-2020 Instruction Type:Patient Education How to access health informa tion online - Detail Indication:BMI 32.0-32.9,adult Start:28-Feb-2020 Instruction Type:Patient Education Patient Instructions Indication:BMI 32.0-32.9,adult Start:28-Feb-2020 Instruction Type:Provider Instructions for Treatment How to access health informa tion online Indication:Urinary frequency Start:14-Oct-2019 Instruction Type:Patient Education How to access health informa tion online - Detail Indication:Urinary frequency Start:14-Oct-2019 Instruction Type:Patient Education Patient Instructions Indication:Urinary frequency Start:14-Oct-2019 Instruction Type:Provider Instructions for Treatment How to access health informa tion online Indication:Urinary frequency Start:02-Dec-2018 Instruction Type:Patient Education How to access health informa tion online - Detail Indication:Urinary frequency Start:02-Dec-2018 Instruction Type:Patient Education Patient Instructions Indication:Urinary frequency Start:02-Dec-2018 Instruction Type:Provider Instructions for Treatment How to access health informa tion online Indication:Nonsmoker Start:27-Jul-2018 Instruction Type:Patient Education How to access health informa tion online - Detail Indication:Nonsmoker Start:27-Jul-2018 Instruction Type:Patient Education Patient Instructions Indication:Nonsmoker Start:27-Jul-2018 Instruction Type:Provider Instructions for Treatment How to access health informa tion online Indication:BMI 32.0-32.9,adult Start:16-Oct-2017 Instruction Type:Patient Education How to access health informa tion online - Detail Indication:BMI 32.0-32.9,adult Start:16-Oct-2017 Instruction Type:Patient Education Patient Instructions Indication:UTI (urinary tract infection) Start:16-Oct-2017 Instruction Type:Provider Instructions for Treatment DISCONTINUED - METABOLIC ESPITIA EL, COMPREHENSIVE ([id number]) Indication:Renal Insufficiency (Renamed from Impaired renal function) Start:18-Jul-2017 Instruction Type:Patient Education DISCONTINUED - [id number] ([id number]) Indication:Fatty liver Start:18-Jul-2017 Instruction Type:Patient Education DISCONTINUED - PTT (Activate d Partial Thromboplastin Time) ([id number]) Indication:Fatty liver Start:18-Jul-2017 Instruction Type:Patient Education DISCONTINUED - PT (PROTHROMB IN TIME) ([id number]) Indication:Fatty liver Start:18-Jul-2017 Instruction Type:Patient Education DISCONTINUED - LIPID PANEL ( [id number]) Indication:Hyperlipidemia Start:18-Jul-2017 Instruction Type:Patient Education How to access health informa tion online Indication:Dysuria Start:18-Jul-2017 Instruction Type:Patient Education How to access health informa tion online - Detail Indication:Dysuria Start:18-Jul-2017 Instruction Type:Patient Education Patient Instructions Indication:Dysuria Start:18-Jul-2017 Instruction Type:Provider Instructions for Treatment How to access health informa tion online Indication:UTI symptoms Start:16-Dec-2016 Instruction Type:Patient Education How to access health informa tion online - Detail Indication:UTI symptoms Start:16-Dec-2016 Instruction Type:Patient Education Patient Instructions Indication:UTI symptoms Start:16-Dec-2016 Instruction Type:Provider Instructions for Treatment How to access health informa tion online Indication:UTI symptoms Start:23-Sep-2016 Instruction Type:Patient Education How to access health informa tion online - Detail Indication:UTI symptoms Start:23-Sep-2016 Instruction Type:Patient Education Patient Instructions Indication:UTI symptoms Start:23-Sep-2016 Instruction Type:Provider Instructions for Treatment How to access health informa tion online Indication:Impaired Fasting Glucose Start:06-Aug-2016 Instruction Type:Patient Education How to access health informa tion online - Detail Indication:Impaired Fasting Glucose Start:06-Aug-2016 Instruction Type:Patient Education Patient Instructions Indication:Impaired Fasting Glucose Start:06-Aug-2016 Instruction Type:Provider Instructions for Treatment How to access health informa tion online Indication:UTI symptoms Start:02-May-2016 Instruction Type:Patient Education How to access health informa tion online - Detail Indication:UTI symptoms Start:02-May-2016 Instruction Type:Patient Education Patient Instructions Indication:UTI symptoms Start:02-May-2016 Instruction Type:Provider Instructions for Treatment How to access health informa tion online Indication:UTI symptoms Start:19-Apr-2016 Instruction Type:Patient Education How to access health informa tion online - Detail Indication:UTI symptoms Start:19-Apr-2016 Instruction Type:Patient Education Patient Instructions Indication:UTI symptoms Start:19-Apr-2016 Instruction Type:Provider Instructions for Treatment How to access health informa tion online Indication:Sorethroat Start:14-Mar-2016 Instruction Type:Patient Education How to access health informa tion online - Detail Indication:Sorethroat Start:14-Mar-2016 Instruction Type:Patient Education Patient Instructions Indication:Sorethroat Start:14-Mar-2016 Instruction Type:Provider Instructions for Treatment How to access health informa tion online Indication:Impaired Fasting Glucose Start:11-Mar-2016 Instruction Type:Patient Education How to access health informa tion online - Detail Indication:Impaired Fasting Glucose Start:11-Mar-2016 Instruction Type:Patient Education Patient Instructions Indication:Impaired Fasting Glucose Start:11-Mar-2016 Instruction Type:Provider Instructions for Treatment How to access health informa tion online Indication:Impaired Fasting Glucose Start:09-Oct-2015 Instruction Type:Patient Education How to access health informa tion online - Detail Indication:Impaired Fasting Glucose Start:09-Oct-2015 Instruction Type:Patient Education Patient Instructions Indication:Impaired Fasting Glucose Start:09-Oct-2015 Instruction Type:Provider Instructions for Treatment Patient Instructions Indication:Impaired Fasting Glucose Start:21-Jun-2015 Instruction Type:Provider Instructions for Treatment How to access health informa tion online Indication:Poison debi Start:31-May-2015 Instruction Type:Patient Education How to access health informa tion online - Detail Indication:Poison debi Start:31-May-2015 Instruction Type:Patient Education Patient Instructions Indication:Poison debi Start:31-May-2015 Instruction Type:Provider Instructions for Treatment Patient Instructions Indication:Impaired Fasting Glucose Start:15-Feb-2015 Instruction Type:Provider Instructions for Treatment How to access health informa tion online Indication:Impaired Fasting Glucose Start:19-Oct-2014 Instruction Type:Patient Education How to access health informa tion online - Detail Indication:Impaired Fasting Glucose Start:19-Oct-2014 Instruction Type:Patient Education Patient Instructions Indication:Impaired Fasting Glucose Start:19-Oct-2014 Instruction Type:Provider Instructions for Treatment How to access health informa tion online Indication:Impaired Fasting Glucose Start:20-Jul-2014 Instruction Type:Patient Education How to access health informa tion online - Detail Indication:Impaired Fasting Glucose Start:20-Jul-2014 Instruction Type:Patient Education Patient Instructions Indication:Impaired Fasting Glucose Start:20-Jul-2014 Instruction Type:Provider Instructions for Treatment Patient Instructions Indication:Encounter for Medicare annual wellness exam Start:04-May-2014 Instruction Type:Provider Instructions for Treatment Patient Instructions Indication:Impaired Fasting Glucose Start:16-Mar-2014 Instruction Type:Provider Instructions for Treatment Patient Instructions Indication:Impaired Fasting Glucose Start:09-Nov-2013 Instruction Type:Provider Instructions for Treatment Patient Instructions Indication:Vaginal yeast infection Start:17-Aug-2013 Instruction Type:Provider Instructions for Treatment Patient Instructions Indication:Impaired Fasting Glucose Start:06-Aug-2013 Instruction Type:Provider Instructions for Treatment Patient Instructions Indication:Diverticulitis Start:30-Jun-2013 Instruction Type:Provider Instructions for Treatment [facility]; [facility] Work Phone: Instructions* Name Dates Details Patient Instructions Indication:BMI 31.0-31.9,adult Start:11-Mar-2022 Instruction Type:Provider Instructions for Treatment How to Access Health Informa tion Online using Patient Portal and [employer]rd [employer] Apps Indication:BMI 31.0-31.9,adult Start:11-Mar-2022 Instruction Type:Patient Education Patient Instructions Indication:BMI 31.0-31.9,adult Start:11-Dec-2021 Instruction Type:Provider Instructions for Treatment How to Access Health Informa tion Online using Patient Portal and [employer]rd [employer] Apps Indication:BMI 31.0-31.9,adult Start:11-Dec-2021 Instruction Type:Patient Education Patient Instructions Indication:Hyperlipidemia Start:26-Sep-2021 Instruction Type:Provider Instructions for Treatment How to Access Health Informa tion Online using Patient Portal and [employer] Apps Indication:Impaired Fasting Glucose Start:26-Sep-2021 Instruction Type:Patient Education Patient Instructions Indication:BMI 31.0-31.9,adult Start:08-Jun-2021 Instruction Type:Provider Instructions for Treatment How to Access Health Informa tion Online using Patient Portal and [employer] Apps Indication:Impaired Fasting Glucose Start:08-Jun-2021 Instruction Type:Patient Education Patient Instructions Indication:Nonsmoker Start:19-Feb-2021 Instruction Type:Provider Instructions for Treatment How to Access Health Informa tion Online using Patient Portal and [employer] Apps Indication:Nonsmoker Start:19-Feb-2021 Instruction Type:Patient Education Patient Instructions Indication:BMI 32.0-32.9,adult Start:30-Jan-2021 Instruction Type:Provider Instructions for Treatment How to Access Health Informa tion Online using Patient Portal and [employer] Apps Indication:BMI 32.0-32.9,adult Start:30-Jan-2021 Instruction Type:Patient Education Patient Instructions Indication:BMI 32.0-32.9,adult Start:03-Jan-2021 Instruction Type:Provider Instructions for Treatment How to Access Health Informa tion Online using Patient Portal and [employer] Apps Indication:BMI 32.0-32.9,adult Start:03-Jan-2021 Instruction Type:Patient Education How to access health informa tion online Indication:Nonsmoker Start:23-Oct-2020 Instruction Type:Patient Education How to access health informa tion online - Detail Indication:Nonsmoker Start:23-Oct-2020 Instruction Type:Patient Education Patient Instructions Indication:Nonsmoker Start:23-Oct-2020 Instruction Type:Provider Instructions for Treatment How to access health informa tion online Indication:Nonsmoker Start:18-Sep-2020 Instruction Type:Patient Education How to access health informa tion online - Detail Indication:Nonsmoker Start:18-Sep-2020 Instruction Type:Patient Education Patient Instructions Indication:Nonsmoker Start:18-Sep-2020 Instruction Type:Provider Instructions for Treatment How to access health informa tion online Indication:Nonsmoker Start:21-Jun-2020 Instruction Type:Patient Education How to access health informa tion online - Detail Indication:Nonsmoker Start:21-Jun-2020 Instruction Type:Patient Education Patient Instructions Indication:BMI 31.0-31.9,adult Start:21-Jun-2020 Instruction Type:Provider Instructions for Treatment How to access health informa tion online Indication:Nonsmoker Start:01-Mar-2020 Instruction Type:Patient Education How to access health informa tion online - Detail Indication:Nonsmoker Start:01-Mar-2020 Instruction Type:Patient Education Patient Instructions Indication:Nonsmoker Start:01-Mar-2020 Instruction Type:Provider Instructions for Treatment How to access health informa tion online Indication:BMI 32.0-32.9,adult Start:28-Feb-2020 Instruction Type:Patient Education How to access health informa tion online - Detail Indication:BMI 32.0-32.9,adult Start:28-Feb-2020 Instruction Type:Patient Education Patient Instructions Indication:BMI 32.0-32.9,adult Start:28-Feb-2020 Instruction Type:Provider Instructions for Treatment How to access health informa tion online Indication:Urinary frequency Start:14-Oct-2019 Instruction Type:Patient Education How to access health informa tion online - Detail Indication:Urinary frequency Start:14-Oct-2019 Instruction Type:Patient Education Patient Instructions Indication:Urinary frequency Start:14-Oct-2019 Instruction Type:Provider Instructions for Treatment How to access health informa tion online Indication:Urinary frequency Start:02-Dec-2018 Instruction Type:Patient Education How to access health informa tion online - Detail Indication:Urinary frequency Start:02-Dec-2018 Instruction Type:Patient Education Patient Instructions Indication:Urinary frequency Start:02-Dec-2018 Instruction Type:Provider Instructions for Treatment How to access health informa tion online Indication:Nonsmoker Start:27-Jul-2018 Instruction Type:Patient Education How to access health informa tion online - Detail Indication:Nonsmoker Start:27-Jul-2018 Instruction Type:Patient Education Patient Instructions Indication:Nonsmoker Start:27-Jul-2018 Instruction Type:Provider Instructions for Treatment How to access health informa tion online Indication:BMI 32.0-32.9,adult Start:16-Oct-2017 Instruction Type:Patient Education How to access health informa tion online - Detail Indication:BMI 32.0-32.9,adult Start:16-Oct-2017 Instruction Type:Patient Education Patient Instructions Indication:UTI (urinary tract infection) Start:16-Oct-2017 Instruction Type:Provider Instructions for Treatment DISCONTINUED - METABOLIC ESPITIA EL, COMPREHENSIVE ([id number]) Indication:Renal Insufficiency (Renamed from Impaired renal function) Start:18-Jul-2017 Instruction Type:Patient Education DISCONTINUED - [id number] ([id number]) Indication:Fatty liver Start:18-Jul-2017 Instruction Type:Patient Education DISCONTINUED - PTT (Activate d Partial Thromboplastin Time) ([id number]) Indication:Fatty liver Start:18-Jul-2017 Instruction Type:Patient Education DISCONTINUED - PT (PROTHROMB IN TIME) ([id number]) Indication:Fatty liver Start:18-Jul-2017 Instruction Type:Patient Education DISCONTINUED - LIPID PANEL ( [id number]) Indication:Hyperlipidemia Start:18-Jul-2017 Instruction Type:Patient Education How to access health informa tion online Indication:Dysuria Start:18-Jul-2017 Instruction Type:Patient Education How to access health informa tion online - Detail Indication:Dysuria Start:18-Jul-2017 Instruction Type:Patient Education Patient Instructions Indication:Dysuria Start:18-Jul-2017 Instruction Type:Provider Instructions for Treatment How to access health informa tion online Indication:UTI symptoms Start:16-Dec-2016 Instruction Type:Patient Education How to access health informa tion online - Detail Indication:UTI symptoms Start:16-Dec-2016 Instruction Type:Patient Education Patient Instructions Indication:UTI symptoms Start:16-Dec-2016 Instruction Type:Provider Instructions for Treatment How to access health informa tion online Indication:UTI symptoms Start:23-Sep-2016 Instruction Type:Patient Education How to access health informa tion online - Detail Indication:UTI symptoms Start:23-Sep-2016 Instruction Type:Patient Education Patient Instructions Indication:UTI symptoms Start:23-Sep-2016 Instruction Type:Provider Instructions for Treatment How to access health informa tion online Indication:Impaired Fasting Glucose Start:06-Aug-2016 Instruction Type:Patient Education How to access health informa tion online - Detail Indication:Impaired Fasting Glucose Start:06-Aug-2016 Instruction Type:Patient Education Patient Instructions Indication:Impaired Fasting Glucose Start:06-Aug-2016 Instruction Type:Provider Instructions for Treatment How to access health informa tion online Indication:UTI symptoms Start:02-May-2016 Instruction Type:Patient Education How to access health informa tion online - Detail Indication:UTI symptoms Start:02-May-2016 Instruction Type:Patient Education Patient Instructions Indication:UTI symptoms Start:02-May-2016 Instruction Type:Provider Instructions for Treatment How to access health informa tion online Indication:UTI symptoms Start:19-Apr-2016 Instruction Type:Patient Education How to access health informa tion online - Detail Indication:UTI symptoms Start:19-Apr-2016 Instruction Type:Patient Education Patient Instructions Indication:UTI symptoms Start:19-Apr-2016 Instruction Type:Provider Instructions for Treatment How to access health informa tion online Indication:Sorethroat Start:14-Mar-2016 Instruction Type:Patient Education How to access health informa tion online - Detail Indication:Sorethroat Start:14-Mar-2016 Instruction Type:Patient Education Patient Instructions Indication:Sorethroat Start:14-Mar-2016 Instruction Type:Provider Instructions for Treatment How to access health informa tion online Indication:Impaired Fasting Glucose Start:11-Mar-2016 Instruction Type:Patient Education How to access health informa tion online - Detail Indication:Impaired Fasting Glucose Start:11-Mar-2016 Instruction Type:Patient Education Patient Instructions Indication:Impaired Fasting Glucose Start:11-Mar-2016 Instruction Type:Provider Instructions for Treatment How to access health informa tion online Indication:Impaired Fasting Glucose Start:09-Oct-2015 Instruction Type:Patient Education How to access health informa tion online - Detail Indication:Impaired Fasting Glucose Start:09-Oct-2015 Instruction Type:Patient Education Patient Instructions Indication:Impaired Fasting Glucose Start:09-Oct-2015 Instruction Type:Provider Instructions for Treatment Patient Instructions Indication:Impaired Fasting Glucose Start:21-Jun-2015 Instruction Type:Provider Instructions for Treatment How to access health informa tion online Indication:Poison debi Start:31-May-2015 Instruction Type:Patient Education How to access health informa tion online - Detail Indication:Poison debi Start:31-May-2015 Instruction Type:Patient Education Patient Instructions Indication:Poison debi Start:31-May-2015 Instruction Type:Provider Instructions for Treatment Patient Instructions Indication:Impaired Fasting Glucose Start:15-Feb-2015 Instruction Type:Provider Instructions for Treatment How to access health informa tion online Indication:Impaired Fasting Glucose Start:19-Oct-2014 Instruction Type:Patient Education How to access health informa tion online - Detail Indication:Impaired Fasting Glucose Start:19-Oct-2014 Instruction Type:Patient Education Patient Instructions Indication:Impaired Fasting Glucose Start:19-Oct-2014 Instruction Type:Provider Instructions for Treatment How to access health informa tion online Indication:Impaired Fasting Glucose Start:20-Jul-2014 Instruction Type:Patient Education How to access health informa tion online - Detail Indication:Impaired Fasting Glucose Start:20-Jul-2014 Instruction Type:Patient Education Patient Instructions Indication:Impaired Fasting Glucose Start:20-Jul-2014 Instruction Type:Provider Instructions for Treatment Patient Instructions Indication:Encounter for Medicare annual wellness exam Start:04-May-2014 Instruction Type:Provider Instructions for Treatment Patient Instructions Indication:Impaired Fasting Glucose Start:16-Mar-2014 Instruction Type:Provider Instructions for Treatment Patient Instructions Indication:Impaired Fasting Glucose Start:09-Nov-2013 Instruction Type:Provider Instructions for Treatment Patient Instructions Indication:Vaginal yeast infection Start:17-Aug-2013 Instruction Type:Provider Instructions for Treatment Patient Instructions Indication:Impaired Fasting Glucose Start:06-Aug-2013 Instruction Type:Provider Instructions for Treatment Patient Instructions Indication:Diverticulitis Start:30-Jun-2013 Instruction Type:Provider Instructions for Treatment [facility]; [facility] Work Phone: Instructions* Name Dates Details Patient Instructions Indication:UTI symptoms Start:24-Sep-2022 Instruction Type:Provider Instructions for Treatment How to Access Health Informa tion Online using Patient Portal and [employer] Apps Indication:UTI symptoms Start:24-Sep-2022 Instruction Type:Patient Education Patient Instructions Indication:BMI 31.0-31.9,adult Start:11-Mar-2022 Instruction Type:Provider Instructions for Treatment How to Access Health Informa tion Online using Patient Portal and [employer] Apps Indication:BMI 31.0-31.9,adult Start:11-Mar-2022 Instruction Type:Patient Education Patient Instructions Indication:BMI 31.0-31.9,adult Start:11-Dec-2021 Instruction Type:Provider Instructions for Treatment How to Access Health Informa tion Online using Patient Portal and [employer] Apps Indication:BMI 31.0-31.9,adult Start:11-Dec-2021 Instruction Type:Patient Education Patient Instructions Indication:Hyperlipidemia Start:26-Sep-2021 Instruction Type:Provider Instructions for Treatment How to Access Health Informa tion Online using Patient Portal and [employer] Apps Indication:Impaired Fasting Glucose Start:26-Sep-2021 Instruction Type:Patient Education Patient Instructions Indication:BMI 31.0-31.9,adult Start:08-Jun-2021 Instruction Type:Provider Instructions for Treatment How to Access Health Informa tion Online using Patient Portal and [employer] Apps Indication:Impaired Fasting Glucose Start:08-Jun-2021 Instruction Type:Patient Education Patient Instructions Indication:Nonsmoker Start:19-Feb-2021 Instruction Type:Provider Instructions for Treatment How to Access Health Informa tion Online using Patient Portal and [employer] Apps Indication:Nonsmoker Start:19-Feb-2021 Instruction Type:Patient Education Patient Instructions Indication:BMI 32.0-32.9,adult Start:30-Jan-2021 Instruction Type:Provider Instructions for Treatment How to Access Health Informa tion Online using Patient Portal and [employer] Apps Indication:BMI 32.0-32.9,adult Start:30-Jan-2021 Instruction Type:Patient Education Patient Instructions Indication:BMI 32.0-32.9,adult Start:03-Jan-2021 Instruction Type:Provider Instructions for Treatment How to Access Health Informa tion Online using Patient Portal and [employer] Apps Indication:BMI 32.0-32.9,adult Start:03-Jan-2021 Instruction Type:Patient Education How to access health informa tion online Indication:Nonsmoker Start:23-Oct-2020 Instruction Type:Patient Education How to access health informa tion online - Detail Indication:Nonsmoker Start:23-Oct-2020 Instruction Type:Patient Education Patient Instructions Indication:Nonsmoker Start:23-Oct-2020 Instruction Type:Provider Instructions for Treatment How to access health informa tion online Indication:Nonsmoker Start:18-Sep-2020 Instruction Type:Patient Education How to access health informa tion online - Detail Indication:Nonsmoker Start:18-Sep-2020 Instruction Type:Patient Education Patient Instructions Indication:Nonsmoker Start:18-Sep-2020 Instruction Type:Provider Instructions for Treatment How to access health informa tion online Indication:Nonsmoker Start:21-Jun-2020 Instruction Type:Patient Education How to access health informa tion online - Detail Indication:Nonsmoker Start:21-Jun-2020 Instruction Type:Patient Education Patient Instructions Indication:BMI 31.0-31.9,adult Start:21-Jun-2020 Instruction Type:Provider Instructions for Treatment How to access health informa tion online Indication:Nonsmoker Start:01-Mar-2020 Instruction Type:Patient Education How to access health informa tion online - Detail Indication:Nonsmoker Start:01-Mar-2020 Instruction Type:Patient Education Patient Instructions Indication:Nonsmoker Start:01-Mar-2020 Instruction Type:Provider Instructions for Treatment How to access health informa tion online Indication:BMI 32.0-32.9,adult Start:28-Feb-2020 Instruction Type:Patient Education How to access health informa tion online - Detail Indication:BMI 32.0-32.9,adult Start:28-Feb-2020 Instruction Type:Patient Education Patient Instructions Indication:BMI 32.0-32.9,adult Start:28-Feb-2020 Instruction Type:Provider Instructions for Treatment How to access health informa tion online Indication:Urinary frequency Start:14-Oct-2019 Instruction Type:Patient Education How to access health informa tion online - Detail Indication:Urinary frequency Start:14-Oct-2019 Instruction Type:Patient Education Patient Instructions Indication:Urinary frequency Start:14-Oct-2019 Instruction Type:Provider Instructions for Treatment How to access health informa tion online Indication:Urinary frequency Start:02-Dec-2018 Instruction Type:Patient Education How to access health informa tion online - Detail Indication:Urinary frequency Start:02-Dec-2018 Instruction Type:Patient Education Patient Instructions Indication:Urinary frequency Start:02-Dec-2018 Instruction Type:Provider Instructions for Treatment How to access health informa tion online Indication:Nonsmoker Start:27-Jul-2018 Instruction Type:Patient Education How to access health informa tion online - Detail Indication:Nonsmoker Start:27-Jul-2018 Instruction Type:Patient Education Patient Instructions Indication:Nonsmoker Start:27-Jul-2018 Instruction Type:Provider Instructions for Treatment How to access health informa tion online Indication:BMI 32.0-32.9,adult Start:16-Oct-2017 Instruction Type:Patient Education How to access health informa tion online - Detail Indication:BMI 32.0-32.9,adult Start:16-Oct-2017 Instruction Type:Patient Education Patient Instructions Indication:UTI (urinary tract infection) Start:16-Oct-2017 Instruction Type:Provider Instructions for Treatment DISCONTINUED - METABOLIC ESPITIA EL, COMPREHENSIVE ([id number]) Indication:Renal Insufficiency (Renamed from Impaired renal function) Start:18-Jul-2017 Instruction Type:Patient Education DISCONTINUED - [id number] ([id number]) Indication:Fatty liver Start:18-Jul-2017 Instruction Type:Patient Education DISCONTINUED - PTT (Activate d Partial Thromboplastin Time) ([id number]) Indication:Fatty liver Start:18-Jul-2017 Instruction Type:Patient Education DISCONTINUED - PT (PROTHROMB IN TIME) ([id number]) Indication:Fatty liver Start:18-Jul-2017 Instruction Type:Patient Education DISCONTINUED - LIPID PANEL ( [id number]) Indication:Hyperlipidemia Start:18-Jul-2017 Instruction Type:Patient Education How to access health informa tion online Indication:Dysuria Start:18-Jul-2017 Instruction Type:Patient Education How to access health informa tion online - Detail Indication:Dysuria Start:18-Jul-2017 Instruction Type:Patient Education Patient Instructions Indication:Dysuria Start:18-Jul-2017 Instruction Type:Provider Instructions for Treatment How to access health informa tion online Indication:UTI symptoms Start:16-Dec-2016 Instruction Type:Patient Education How to access health informa tion online - Detail Indication:UTI symptoms Start:16-Dec-2016 Instruction Type:Patient Education Patient Instructions Indication:UTI symptoms Start:16-Dec-2016 Instruction Type:Provider Instructions for Treatment How to access health informa tion online Indication:UTI symptoms Start:23-Sep-2016 Instruction Type:Patient Education How to access health informa tion online - Detail Indication:UTI symptoms Start:23-Sep-2016 Instruction Type:Patient Education Patient Instructions Indication:UTI symptoms Start:23-Sep-2016 Instruction Type:Provider Instructions for Treatment How to access health informa tion online Indication:Impaired Fasting Glucose Start:06-Aug-2016 Instruction Type:Patient Education How to access health informa tion online - Detail Indication:Impaired Fasting Glucose Start:06-Aug-2016 Instruction Type:Patient Education Patient Instructions Indication:Impaired Fasting Glucose Start:06-Aug-2016 Instruction Type:Provider Instructions for Treatment How to access health informa tion online Indication:UTI symptoms Start:02-May-2016 Instruction Type:Patient Education How to access health informa tion online - Detail Indication:UTI symptoms Start:02-May-2016 Instruction Type:Patient Education Patient Instructions Indication:UTI symptoms Start:02-May-2016 Instruction Type:Provider Instructions for Treatment How to access health informa tion online Indication:UTI symptoms Start:19-Apr-2016 Instruction Type:Patient Education How to access health informa tion online - Detail Indication:UTI symptoms Start:19-Apr-2016 Instruction Type:Patient Education Patient Instructions Indication:UTI symptoms Start:19-Apr-2016 Instruction Type:Provider Instructions for Treatment How to access health informa tion online Indication:Sorethroat Start:14-Mar-2016 Instruction Type:Patient Education How to access health informa tion online - Detail Indication:Sorethroat Start:14-Mar-2016 Instruction Type:Patient Education Patient Instructions Indication:Sorethroat Start:14-Mar-2016 Instruction Type:Provider Instructions for Treatment How to access health informa tion online Indication:Impaired Fasting Glucose Start:11-Mar-2016 Instruction Type:Patient Education How to access health informa tion online - Detail Indication:Impaired Fasting Glucose Start:11-Mar-2016 Instruction Type:Patient Education Patient Instructions Indication:Impaired Fasting Glucose Start:11-Mar-2016 Instruction Type:Provider Instructions for Treatment How to access health informa tion online Indication:Impaired Fasting Glucose Start:09-Oct-2015 Instruction Type:Patient Education How to access health informa tion online - Detail Indication:Impaired Fasting Glucose Start:09-Oct-2015 Instruction Type:Patient Education Patient Instructions Indication:Impaired Fasting Glucose Start:09-Oct-2015 Instruction Type:Provider Instructions for Treatment Patient Instructions Indication:Impaired Fasting Glucose Start:21-Jun-2015 Instruction Type:Provider Instructions for Treatment How to access health informa tion online Indication:Poison debi Start:31-May-2015 Instruction Type:Patient Education How to access health informa tion online - Detail Indication:Poison debi Start:31-May-2015 Instruction Type:Patient Education Patient Instructions Indication:Poison debi Start:31-May-2015 Instruction Type:Provider Instructions for Treatment Patient Instructions Indication:Impaired Fasting Glucose Start:15-Feb-2015 Instruction Type:Provider Instructions for Treatment How to access health informa tion online Indication:Impaired Fasting Glucose Start:19-Oct-2014 Instruction Type:Patient Education How to access health informa tion online - Detail Indication:Impaired Fasting Glucose Start:19-Oct-2014 Instruction Type:Patient Education Patient Instructions Indication:Impaired Fasting Glucose Start:19-Oct-2014 Instruction Type:Provider Instructions for Treatment How to access health informa tion online Indication:Impaired Fasting Glucose Start:20-Jul-2014 Instruction Type:Patient Education How to access health informa tion online - Detail Indication:Impaired Fasting Glucose Start:20-Jul-2014 Instruction Type:Patient Education Patient Instructions Indication:Impaired Fasting Glucose Start:20-Jul-2014 Instruction Type:Provider Instructions for Treatment Patient Instructions Indication:Encounter for Medicare annual wellness exam Start:04-May-2014 Instruction Type:Provider Instructions for Treatment Patient Instructions Indication:Impaired Fasting Glucose Start:16-Mar-2014 Instruction Type:Provider Instructions for Treatment Patient Instructions Indication:Impaired Fasting Glucose Start:09-Nov-2013 Instruction Type:Provider Instructions for Treatment Patient Instructions Indication:Vaginal yeast infection Start:17-Aug-2013 Instruction Type:Provider Instructions for Treatment Patient Instructions Indication:Impaired Fasting Glucose Start:06-Aug-2013 Instruction Type:Provider Instructions for Treatment Patient Instructions Indication:Diverticulitis Start:30-Jun-2013 Instruction Type:Provider Instructions for Treatment [facility]; [facility] Work Phone: Instructions* Name Dates Details Patient Instructions Indication:Nonsmoker Start:07-Nov-2022 Instruction Type:Provider Instructions for Treatment How to Access Health Informa tion Online using Patient Portal and [employer] Apps Indication:Nonsmoker Start:07-Nov-2022 Instruction Type:Patient Education Patient Instructions Indication:UTI symptoms Start:24-Sep-2022 Instruction Type:Provider Instructions for Treatment How to Access Health Informa tion Online using Patient Portal and [employer] Apps Indication:UTI symptoms Start:24-Sep-2022 Instruction Type:Patient Education Patient Instructions Indication:BMI 31.0-31.9,adult Start:11-Mar-2022 Instruction Type:Provider Instructions for Treatment How to Access Health Informa tion Online using Patient Portal and [employer] Apps Indication:BMI 31.0-31.9,adult Start:11-Mar-2022 Instruction Type:Patient Education Patient Instructions Indication:BMI 31.0-31.9,adult Start:11-Dec-2021 Instruction Type:Provider Instructions for Treatment How to Access Health Informa tion Online using Patient Portal and [employer] Apps Indication:BMI 31.0-31.9,adult Start:11-Dec-2021 Instruction Type:Patient Education Patient Instructions Indication:Hyperlipidemia Start:26-Sep-2021 Instruction Type:Provider Instructions for Treatment How to Access Health Informa tion Online using Patient Portal and [employer] Apps Indication:Impaired Fasting Glucose Start:26-Sep-2021 Instruction Type:Patient Education Patient Instructions Indication:BMI 31.0-31.9,adult Start:08-Jun-2021 Instruction Type:Provider Instructions for Treatment How to Access Health Informa tion Online using Patient Portal and [employer] Apps Indication:Impaired Fasting Glucose Start:08-Jun-2021 Instruction Type:Patient Education Patient Instructions Indication:Nonsmoker Start:19-Feb-2021 Instruction Type:Provider Instructions for Treatment How to Access Health Informa tion Online using Patient Portal and [employer] Apps Indication:Nonsmoker Start:19-Feb-2021 Instruction Type:Patient Education Patient Instructions Indication:BMI 32.0-32.9,adult Start:30-Jan-2021 Instruction Type:Provider Instructions for Treatment How to Access Health Informa tion Online using Patient Portal and [employer] Apps Indication:BMI 32.0-32.9,adult Start:30-Jan-2021 Instruction Type:Patient Education Patient Instructions Indication:BMI 32.0-32.9,adult Start:03-Jan-2021 Instruction Type:Provider Instructions for Treatment How to Access Health Informa tion Online using Patient Portal and [employer] Apps Indication:BMI 32.0-32.9,adult Start:03-Jan-2021 Instruction Type:Patient Education How to access health informa tion online Indication:Nonsmoker Start:23-Oct-2020 Instruction Type:Patient Education How to access health informa tion online - Detail Indication:Nonsmoker Start:23-Oct-2020 Instruction Type:Patient Education Patient Instructions Indication:Nonsmoker Start:23-Oct-2020 Instruction Type:Provider Instructions for Treatment How to access health informa tion online Indication:Nonsmoker Start:18-Sep-2020 Instruction Type:Patient Education How to access health informa tion online - Detail Indication:Nonsmoker Start:18-Sep-2020 Instruction Type:Patient Education Patient Instructions Indication:Nonsmoker Start:18-Sep-2020 Instruction Type:Provider Instructions for Treatment How to access health informa tion online Indication:Nonsmoker Start:21-Jun-2020 Instruction Type:Patient Education How to access health informa tion online - Detail Indication:Nonsmoker Start:21-Jun-2020 Instruction Type:Patient Education Patient Instructions Indication:BMI 31.0-31.9,adult Start:21-Jun-2020 Instruction Type:Provider Instructions for Treatment How to access health informa tion online Indication:Nonsmoker Start:01-Mar-2020 Instruction Type:Patient Education How to access health informa tion online - Detail Indication:Nonsmoker Start:01-Mar-2020 Instruction Type:Patient Education Patient Instructions Indication:Nonsmoker Start:01-Mar-2020 Instruction Type:Provider Instructions for Treatment How to access health informa tion online Indication:BMI 32.0-32.9,adult Start:28-Feb-2020 Instruction Type:Patient Education How to access health informa tion online - Detail Indication:BMI 32.0-32.9,adult Start:28-Feb-2020 Instruction Type:Patient Education Patient Instructions Indication:BMI 32.0-32.9,adult Start:28-Feb-2020 Instruction Type:Provider Instructions for Treatment How to access health informa tion online Indication:Urinary frequency Start:14-Oct-2019 Instruction Type:Patient Education How to access health informa tion online - Detail Indication:Urinary frequency Start:14-Oct-2019 Instruction Type:Patient Education Patient Instructions Indication:Urinary frequency Start:14-Oct-2019 Instruction Type:Provider Instructions for Treatment How to access health informa tion online Indication:Urinary frequency Start:02-Dec-2018 Instruction Type:Patient Education How to access health informa tion online - Detail Indication:Urinary frequency Start:02-Dec-2018 Instruction Type:Patient Education Patient Instructions Indication:Urinary frequency Start:02-Dec-2018 Instruction Type:Provider Instructions for Treatment How to access health informa tion online Indication:Nonsmoker Start:27-Jul-2018 Instruction Type:Patient Education How to access health informa tion online - Detail Indication:Nonsmoker Start:27-Jul-2018 Instruction Type:Patient Education Patient Instructions Indication:Nonsmoker Start:27-Jul-2018 Instruction Type:Provider Instructions for Treatment How to access health informa tion online Indication:BMI 32.0-32.9,adult Start:16-Oct-2017 Instruction Type:Patient Education How to access health informa tion online - Detail Indication:BMI 32.0-32.9,adult Start:16-Oct-2017 Instruction Type:Patient Education Patient Instructions Indication:UTI (urinary tract infection) Start:16-Oct-2017 Instruction Type:Provider Instructions for Treatment DISCONTINUED - METABOLIC ESPITIA EL, COMPREHENSIVE (71887) Indication:Renal Insufficiency (Renamed from Impaired renal function) Start:18-Jul-2017 Instruction Type:Patient Education DISCONTINUED - [id number] ([id number]) Indication:Fatty liver Start:18-Jul-2017 Instruction Type:Patient Education DISCONTINUED - PTT (Activate d Partial Thromboplastin Time) ([id number]) Indication:Fatty liver Start:18-Jul-2017 Instruction Type:Patient Education DISCONTINUED - PT (PROTHROMB IN TIME) ([id number]) Indication:Fatty liver Start:18-Jul-2017 Instruction Type:Patient Education DISCONTINUED - LIPID PANEL ( [id number]) Indication:Hyperlipidemia Start:18-Jul-2017 Instruction Type:Patient Education How to access health informa tion online Indication:Dysuria Start:18-Jul-2017 Instruction Type:Patient Education How to access health informa tion online - Detail Indication:Dysuria Start:18-Jul-2017 Instruction Type:Patient Education Patient Instructions Indication:Dysuria Start:18-Jul-2017 Instruction Type:Provider Instructions for Treatment How to access health informa tion online Indication:UTI symptoms Start:16-Dec-2016 Instruction Type:Patient Education How to access health informa tion online - Detail Indication:UTI symptoms Start:16-Dec-2016 Instruction Type:Patient Education Patient Instructions Indication:UTI symptoms Start:16-Dec-2016 Instruction Type:Provider Instructions for Treatment How to access health informa tion online Indication:UTI symptoms Start:23-Sep-2016 Instruction Type:Patient Education How to access health informa tion online - Detail Indication:UTI symptoms Start:23-Sep-2016 Instruction Type:Patient Education Patient Instructions Indication:UTI symptoms Start:23-Sep-2016 Instruction Type:Provider Instructions for Treatment How to access health informa tion online Indication:Impaired Fasting Glucose Start:06-Aug-2016 Instruction Type:Patient Education How to access health informa tion online - Detail Indication:Impaired Fasting Glucose Start:06-Aug-2016 Instruction Type:Patient Education Patient Instructions Indication:Impaired Fasting Glucose Start:06-Aug-2016 Instruction Type:Provider Instructions for Treatment How to access health informa tion online Indication:UTI symptoms Start:02-May-2016 Instruction Type:Patient Education How to access health informa tion online - Detail Indication:UTI symptoms Start:02-May-2016 Instruction Type:Patient Education Patient Instructions Indication:UTI symptoms Start:02-May-2016 Instruction Type:Provider Instructions for Treatment How to access health informa tion online Indication:UTI symptoms Start:19-Apr-2016 Instruction Type:Patient Education How to access health informa tion online - Detail Indication:UTI symptoms Start:19-Apr-2016 Instruction Type:Patient Education Patient Instructions Indication:UTI symptoms Start:19-Apr-2016 Instruction Type:Provider Instructions for Treatment How to access health informa tion online Indication:Sorethroat Start:14-Mar-2016 Instruction Type:Patient Education How to access health informa tion online - Detail Indication:Sorethroat Start:14-Mar-2016 Instruction Type:Patient Education Patient Instructions Indication:Sorethroat Start:14-Mar-2016 Instruction Type:Provider Instructions for Treatment How to access health informa tion online Indication:Impaired Fasting Glucose Start:11-Mar-2016 Instruction Type:Patient Education How to access health informa tion online - Detail Indication:Impaired Fasting Glucose Start:11-Mar-2016 Instruction Type:Patient Education Patient Instructions Indication:Impaired Fasting Glucose Start:11-Mar-2016 Instruction Type:Provider Instructions for Treatment How to access health informa tion online Indication:Impaired Fasting Glucose Start:09-Oct-2015 Instruction Type:Patient Education How to access health informa tion online - Detail Indication:Impaired Fasting Glucose Start:09-Oct-2015 Instruction Type:Patient Education Patient Instructions Indication:Impaired Fasting Glucose Start:09-Oct-2015 Instruction Type:Provider Instructions for Treatment Patient Instructions Indication:Impaired Fasting Glucose Start:21-Jun-2015 Instruction Type:Provider Instructions for Treatment How to access health informa tion online Indication:Poison debi Start:31-May-2015 Instruction Type:Patient Education How to access health informa tion online - Detail Indication:Poison debi Start:31-May-2015 Instruction Type:Patient Education Patient Instructions Indication:Poison debi Start:31-May-2015 Instruction Type:Provider Instructions for Treatment Patient Instructions Indication:Impaired Fasting Glucose Start:15-Feb-2015 Instruction Type:Provider Instructions for Treatment How to access health informa tion online Indication:Impaired Fasting Glucose Start:19-Oct-2014 Instruction Type:Patient Education How to access health informa tion online - Detail Indication:Impaired Fasting Glucose Start:19-Oct-2014 Instruction Type:Patient Education Patient Instructions Indication:Impaired Fasting Glucose Start:19-Oct-2014 Instruction Type:Provider Instructions for Treatment How to access health informa tion online Indication:Impaired Fasting Glucose Start:20-Jul-2014 Instruction Type:Patient Education How to access health informa tion online - Detail Indication:Impaired Fasting Glucose Start:20-Jul-2014 Instruction Type:Patient Education Patient Instructions Indication:Impaired Fasting Glucose Start:20-Jul-2014 Instruction Type:Provider Instructions for Treatment Patient Instructions Indication:Encounter for Medicare annual wellness exam Start:04-May-2014 Instruction Type:Provider Instructions for Treatment Patient Instructions Indication:Impaired Fasting Glucose Start:16-Mar-2014 Instruction Type:Provider Instructions for Treatment Patient Instructions Indication:Impaired Fasting Glucose Start:09-Nov-2013 Instruction Type:Provider Instructions for Treatment Patient Instructions Indication:Vaginal yeast infection Start:17-Aug-2013 Instruction Type:Provider Instructions for Treatment Patient Instructions Indication:Impaired Fasting Glucose Start:06-Aug-2013 Instruction Type:Provider Instructions for Treatment Patient Instructions Indication:Diverticulitis Start:30-Jun-2013 Instruction Type:Provider Instructions for Treatment [facility]; [facility] Work Phone: Instructions* Name Dates Details Patient Instructions Indication:Nonsmoker Start:07-Nov-2022 Instruction Type:Provider Instructions for Treatment How to Access Health Informa tion Online using Patient Portal and [employer] Apps Indication:Nonsmoker Start:07-Nov-2022 Instruction Type:Patient Education Patient Instructions Indication:UTI symptoms Start:24-Sep-2022 Instruction Type:Provider Instructions for Treatment How to Access Health Informa tion Online using Patient Portal and [employer] Apps Indication:UTI symptoms Start:24-Sep-2022 Instruction Type:Patient Education Patient Instructions Indication:BMI 31.0-31.9,adult Start:11-Mar-2022 Instruction Type:Provider Instructions for Treatment How to Access Health Informa tion Online using Patient Portal and [employer] Apps Indication:BMI 31.0-31.9,adult Start:11-Mar-2022 Instruction Type:Patient Education Patient Instructions Indication:BMI 31.0-31.9,adult Start:11-Dec-2021 Instruction Type:Provider Instructions for Treatment How to Access Health Informa tion Online using Patient Portal and [employer] Apps Indication:BMI 31.0-31.9,adult Start:11-Dec-2021 Instruction Type:Patient Education Patient Instructions Indication:Hyperlipidemia Start:26-Sep-2021 Instruction Type:Provider Instructions for Treatment How to Access Health Informa tion Online using Patient Portal and [employer] Apps Indication:Impaired Fasting Glucose Start:26-Sep-2021 Instruction Type:Patient Education Patient Instructions Indication:BMI 31.0-31.9,adult Start:08-Jun-2021 Instruction Type:Provider Instructions for Treatment How to Access Health Informa tion Online using Patient Portal and [employer] Apps Indication:Impaired Fasting Glucose Start:08-Jun-2021 Instruction Type:Patient Education Patient Instructions Indication:Nonsmoker Start:19-Feb-2021 Instruction Type:Provider Instructions for Treatment How to Access Health Informa tion Online using Patient Portal and [employer] Apps Indication:Nonsmoker Start:19-Feb-2021 Instruction Type:Patient Education Patient Instructions Indication:BMI 32.0-32.9,adult Start:30-Jan-2021 Instruction Type:Provider Instructions for Treatment How to Access Health Informa tion Online using Patient Portal and [employer] Apps Indication:BMI 32.0-32.9,adult Start:30-Jan-2021 Instruction Type:Patient Education Patient Instructions Indication:BMI 32.0-32.9,adult Start:03-Jan-2021 Instruction Type:Provider Instructions for Treatment How to Access Health Informa tion Online using Patient Portal and [employer] Apps Indication:BMI 32.0-32.9,adult Start:03-Jan-2021 Instruction Type:Patient Education How to access health informa tion online Indication:Nonsmoker Start:23-Oct-2020 Instruction Type:Patient Education How to access health informa tion online - Detail Indication:Nonsmoker Start:23-Oct-2020 Instruction Type:Patient Education Patient Instructions Indication:Nonsmoker Start:23-Oct-2020 Instruction Type:Provider Instructions for Treatment How to access health informa tion online Indication:Nonsmoker Start:18-Sep-2020 Instruction Type:Patient Education How to access health informa tion online - Detail Indication:Nonsmoker Start:18-Sep-2020 Instruction Type:Patient Education Patient Instructions Indication:Nonsmoker Start:18-Sep-2020 Instruction Type:Provider Instructions for Treatment How to access health informa tion online Indication:Nonsmoker Start:21-Jun-2020 Instruction Type:Patient Education How to access health informa tion online - Detail Indication:Nonsmoker Start:21-Jun-2020 Instruction Type:Patient Education Patient Instructions Indication:BMI 31.0-31.9,adult Start:21-Jun-2020 Instruction Type:Provider Instructions for Treatment How to access health informa tion online Indication:Nonsmoker Start:01-Mar-2020 Instruction Type:Patient Education How to access health informa tion online - Detail Indication:Nonsmoker Start:01-Mar-2020 Instruction Type:Patient Education Patient Instructions Indication:Nonsmoker Start:01-Mar-2020 Instruction Type:Provider Instructions for Treatment How to access health informa tion online Indication:BMI 32.0-32.9,adult Start:28-Feb-2020 Instruction Type:Patient Education How to access health informa tion online - Detail Indication:BMI 32.0-32.9,adult Start:28-Feb-2020 Instruction Type:Patient Education Patient Instructions Indication:BMI 32.0-32.9,adult Start:28-Feb-2020 Instruction Type:Provider Instructions for Treatment How to access health informa tion online Indication:Urinary frequency Start:14-Oct-2019 Instruction Type:Patient Education How to access health informa tion online - Detail Indication:Urinary frequency Start:14-Oct-2019 Instruction Type:Patient Education Patient Instructions Indication:Urinary frequency Start:14-Oct-2019 Instruction Type:Provider Instructions for Treatment How to access health informa tion online Indication:Urinary frequency Start:02-Dec-2018 Instruction Type:Patient Education How to access health informa tion online - Detail Indication:Urinary frequency Start:02-Dec-2018 Instruction Type:Patient Education Patient Instructions Indication:Urinary frequency Start:02-Dec-2018 Instruction Type:Provider Instructions for Treatment How to access health informa tion online Indication:Nonsmoker Start:27-Jul-2018 Instruction Type:Patient Education How to access health informa tion online - Detail Indication:Nonsmoker Start:27-Jul-2018 Instruction Type:Patient Education Patient Instructions Indication:Nonsmoker Start:27-Jul-2018 Instruction Type:Provider Instructions for Treatment How to access health informa tion online Indication:BMI 32.0-32.9,adult Start:16-Oct-2017 Instruction Type:Patient Education How to access health informa tion online - Detail Indication:BMI 32.0-32.9,adult Start:16-Oct-2017 Instruction Type:Patient Education Patient Instructions Indication:UTI (urinary tract infection) Start:16-Oct-2017 Instruction Type:Provider Instructions for Treatment DISCONTINUED - METABOLIC ESPITIA EL, COMPREHENSIVE ([id number]) Indication:Renal Insufficiency (Renamed from Impaired renal function) Start:18-Jul-2017 Instruction Type:Patient Education DISCONTINUED - [id number] ([id number]) Indication:Fatty liver Start:18-Jul-2017 Instruction Type:Patient Education DISCONTINUED - PTT (Activate d Partial Thromboplastin Time) ([id number]) Indication:Fatty liver Start:18-Jul-2017 Instruction Type:Patient Education DISCONTINUED - PT (PROTHROMB IN TIME) ([id number]) Indication:Fatty liver Start:18-Jul-2017 Instruction Type:Patient Education DISCONTINUED - LIPID PANEL ( [id number]) Indication:Hyperlipidemia Start:18-Jul-2017 Instruction Type:Patient Education How to access health informa tion online Indication:Dysuria Start:18-Jul-2017 Instruction Type:Patient Education How to access health informa tion online - Detail Indication:Dysuria Start:18-Jul-2017 Instruction Type:Patient Education Patient Instructions Indication:Dysuria Start:18-Jul-2017 Instruction Type:Provider Instructions for Treatment How to access health informa tion online Indication:UTI symptoms Start:16-Dec-2016 Instruction Type:Patient Education How to access health informa tion online - Detail Indication:UTI symptoms Start:16-Dec-2016 Instruction Type:Patient Education Patient Instructions Indication:UTI symptoms Start:16-Dec-2016 Instruction Type:Provider Instructions for Treatment How to access health informa tion online Indication:UTI symptoms Start:23-Sep-2016 Instruction Type:Patient Education How to access health informa tion online - Detail Indication:UTI symptoms Start:23-Sep-2016 Instruction Type:Patient Education Patient Instructions Indication:UTI symptoms Start:23-Sep-2016 Instruction Type:Provider Instructions for Treatment How to access health informa tion online Indication:Impaired Fasting Glucose Start:06-Aug-2016 Instruction Type:Patient Education How to access health informa tion online - Detail Indication:Impaired Fasting Glucose Start:06-Aug-2016 Instruction Type:Patient Education Patient Instructions Indication:Impaired Fasting Glucose Start:06-Aug-2016 Instruction Type:Provider Instructions for Treatment How to access health informa tion online Indication:UTI symptoms Start:02-May-2016 Instruction Type:Patient Education How to access health informa tion online - Detail Indication:UTI symptoms Start:02-May-2016 Instruction Type:Patient Education Patient Instructions Indication:UTI symptoms Start:02-May-2016 Instruction Type:Provider Instructions for Treatment How to access health informa tion online Indication:UTI symptoms Start:19-Apr-2016 Instruction Type:Patient Education How to access health informa tion online - Detail Indication:UTI symptoms Start:19-Apr-2016 Instruction Type:Patient Education Patient Instructions Indication:UTI symptoms Start:19-Apr-2016 Instruction Type:Provider Instructions for Treatment How to access health informa tion online Indication:Sorethroat Start:14-Mar-2016 Instruction Type:Patient Education How to access health informa tion online - Detail Indication:Sorethroat Start:14-Mar-2016 Instruction Type:Patient Education Patient Instructions Indication:Sorethroat Start:14-Mar-2016 Instruction Type:Provider Instructions for Treatment How to access health informa tion online Indication:Impaired Fasting Glucose Start:11-Mar-2016 Instruction Type:Patient Education How to access health informa tion online - Detail Indication:Impaired Fasting Glucose Start:11-Mar-2016 Instruction Type:Patient Education Patient Instructions Indication:Impaired Fasting Glucose Start:11-Mar-2016 Instruction Type:Provider Instructions for Treatment How to access health informa tion online Indication:Impaired Fasting Glucose Start:09-Oct-2015 Instruction Type:Patient Education How to access health informa tion online - Detail Indication:Impaired Fasting Glucose Start:09-Oct-2015 Instruction Type:Patient Education Patient Instructions Indication:Impaired Fasting Glucose Start:09-Oct-2015 Instruction Type:Provider Instructions for Treatment Patient Instructions Indication:Impaired Fasting Glucose Start:21-Jun-2015 Instruction Type:Provider Instructions for Treatment How to access health informa tion online Indication:Poison debi Start:31-May-2015 Instruction Type:Patient Education How to access health informa tion online - Detail Indication:Poison debi Start:31-May-2015 Instruction Type:Patient Education Patient Instructions Indication:Poison debi Start:31-May-2015 Instruction Type:Provider Instructions for Treatment Patient Instructions Indication:Impaired Fasting Glucose Start:15-Feb-2015 Instruction Type:Provider Instructions for Treatment How to access health informa tion online Indication:Impaired Fasting Glucose Start:19-Oct-2014 Instruction Type:Patient Education How to access health informa tion online - Detail Indication:Impaired Fasting Glucose Start:19-Oct-2014 Instruction Type:Patient Education Patient Instructions Indication:Impaired Fasting Glucose Start:19-Oct-2014 Instruction Type:Provider Instructions for Treatment How to access health informa tion online Indication:Impaired Fasting Glucose Start:20-Jul-2014 Instruction Type:Patient Education How to access health informa tion online - Detail Indication:Impaired Fasting Glucose Start:20-Jul-2014 Instruction Type:Patient Education Patient Instructions Indication:Impaired Fasting Glucose Start:20-Jul-2014 Instruction Type:Provider Instructions for Treatment Patient Instructions Indication:Encounter for Medicare annual wellness exam Start:04-May-2014 Instruction Type:Provider Instructions for Treatment Patient Instructions Indication:Impaired Fasting Glucose Start:16-Mar-2014 Instruction Type:Provider Instructions for Treatment Patient Instructions Indication:Impaired Fasting Glucose Start:09-Nov-2013 Instruction Type:Provider Instructions for Treatment Patient Instructions Indication:Vaginal yeast infection Start:17-Aug-2013 Instruction Type:Provider Instructions for Treatment Patient Instructions Indication:Impaired Fasting Glucose Start:06-Aug-2013 Instruction Type:Provider Instructions for Treatment Patient Instructions Indication:Diverticulitis Start:30-Jun-2013 Instruction Type:Provider Instructions for Treatment [facility]; [facility] Work Phone: Instructions* Name Dates Details Patient Instructions Indication:Nonsmoker Start:07-Nov-2022 Instruction Type:Provider Instructions for Treatment How to Access Health Informa tion Online using Patient Portal and 3rd [employer] Apps Indication:Nonsmoker Start:07-Nov-2022 Instruction Type:Patient Education Patient Instructions Indication:UTI symptoms Start:24-Sep-2022 Instruction Type:Provider Instructions for Treatment How to Access Health Informa tion Online using Patient Portal and 3rd Republican Apps Indication:UTI symptoms Start:24-Sep-2022 Instruction Type:Patient Education Patient Instructions Indication:BMI 31.0-31.9,adult Start:11-Mar-2022 Instruction Type:Provider Instructions for Treatment How to Access Health Informa tion Online using Patient Portal and 3rd Republican Apps Indication:BMI 31.0-31.9,adult Start:11-Mar-2022 Instruction Type:Patient Education Patient Instructions Indication:BMI 31.0-31.9,adult Start:11-Dec-2021 Instruction Type:Provider Instructions for Treatment How to Access Health Informa tion Online using Patient Portal and 3rd [employer] Apps Indication:BMI 31.0-31.9,adult Start:11-Dec-2021 Instruction Type:Patient Education Patient Instructions Indication:Hyperlipidemia Start:26-Sep-2021 Instruction Type:Provider Instructions for Treatment How to Access Health Informa tion Online using Patient Portal and 3rd Republican Apps Indication:Impaired Fasting Glucose Start:26-Sep-2021 Instruction Type:Patient Education Patient Instructions Indication:BMI 31.0-31.9,adult Start:08-Jun-2021 Instruction Type:Provider Instructions for Treatment How to Access Health Informa tion Online using Patient Portal and 3rd Republican Apps Indication:Impaired Fasting Glucose Start:08-Jun-2021 Instruction Type:Patient Education Patient Instructions Indication:Nonsmoker Start:19-Feb-2021 Instruction Type:Provider Instructions for Treatment How to Access Health Informa tion Online using Patient Portal and 3rd Republican Apps Indication:Nonsmoker Start:19-Feb-2021 Instruction Type:Patient Education Patient Instructions Indication:BMI 32.0-32.9,adult Start:30-Jan-2021 Instruction Type:Provider Instructions for Treatment How to Access Health Informa tion Online using Patient Portal and 3rd [employer] Apps Indication:BMI 32.0-32.9,adult Start:30-Jan-2021 Instruction Type:Patient Education Patient Instructions Indication:BMI 32.0-32.9,adult Start:03-Jan-2021 Instruction Type:Provider Instructions for Treatment How to Access Health Informa tion Online using Patient Portal and 3rd [employer] Apps Indication:BMI 32.0-32.9,adult Start:03-Jan-2021 Instruction Type:Patient Education How to access health informa tion online Indication:Nonsmoker Start:23-Oct-2020 Instruction Type:Patient Education How to access health informa tion online - Detail Indication:Nonsmoker Start:23-Oct-2020 Instruction Type:Patient Education Patient Instructions Indication:Nonsmoker Start:23-Oct-2020 Instruction Type:Provider Instructions for Treatment How to access health informa tion online Indication:Nonsmoker Start:18-Sep-2020 Instruction Type:Patient Education How to access health informa tion online - Detail Indication:Nonsmoker Start:18-Sep-2020 Instruction Type:Patient Education Patient Instructions Indication:Nonsmoker Start:18-Sep-2020 Instruction Type:Provider Instructions for Treatment How to access health informa tion online Indication:Nonsmoker Start:21-Jun-2020 Instruction Type:Patient Education How to access health informa tion online - Detail Indication:Nonsmoker Start:21-Jun-2020 Instruction Type:Patient Education Patient Instructions Indication:BMI 31.0-31.9,adult Start:21-Jun-2020 Instruction Type:Provider Instructions for Treatment How to access health informa tion online Indication:Nonsmoker Start:01-Mar-2020 Instruction Type:Patient Education How to access health informa tion online - Detail Indication:Nonsmoker Start:01-Mar-2020 Instruction Type:Patient Education Patient Instructions Indication:Nonsmoker Start:01-Mar-2020 Instruction Type:Provider Instructions for Treatment How to access health informa tion online Indication:BMI 32.0-32.9,adult Start:28-Feb-2020 Instruction Type:Patient Education How to access health informa tion online - Detail Indication:BMI 32.0-32.9,adult Start:28-Feb-2020 Instruction Type:Patient Education Patient Instructions Indication:BMI 32.0-32.9,adult Start:28-Feb-2020 Instruction Type:Provider Instructions for Treatment How to access health informa tion online Indication:Urinary frequency Start:14-Oct-2019 Instruction Type:Patient Education How to access health informa tion online - Detail Indication:Urinary frequency Start:14-Oct-2019 Instruction Type:Patient Education Patient Instructions Indication:Urinary frequency Start:14-Oct-2019 Instruction Type:Provider Instructions for Treatment How to access health informa tion online Indication:Urinary frequency Start:02-Dec-2018 Instruction Type:Patient Education How to access health informa tion online - Detail Indication:Urinary frequency Start:02-Dec-2018 Instruction Type:Patient Education Patient Instructions Indication:Urinary frequency Start:02-Dec-2018 Instruction Type:Provider Instructions for Treatment How to access health informa tion online Indication:Nonsmoker Start:27-Jul-2018 Instruction Type:Patient Education How to access health informa tion online - Detail Indication:Nonsmoker Start:27-Jul-2018 Instruction Type:Patient Education Patient Instructions Indication:Nonsmoker Start:27-Jul-2018 Instruction Type:Provider Instructions for Treatment How to access health informa tion online Indication:BMI 32.0-32.9,adult Start:16-Oct-2017 Instruction Type:Patient Education How to access health informa tion online - Detail Indication:BMI 32.0-32.9,adult Start:16-Oct-2017 Instruction Type:Patient Education Patient Instructions Indication:UTI (urinary tract infection) Start:16-Oct-2017 Instruction Type:Provider Instructions for Treatment DISCONTINUED - METABOLIC ESPITIA EL, COMPREHENSIVE (81005) Indication:Renal Insufficiency (Renamed from Impaired renal function) Start:18-Jul-2017 Instruction Type:Patient Education DISCONTINUED - [id number] ([id number]) Indication:Fatty liver Start:18-Jul-2017 Instruction Type:Patient Education DISCONTINUED - PTT (Activate d Partial Thromboplastin Time) ([id number]) Indication:Fatty liver Start:18-Jul-2017 Instruction Type:Patient Education DISCONTINUED - PT (PROTHROMB IN TIME) ([id number]) Indication:Fatty liver Start:18-Jul-2017 Instruction Type:Patient Education DISCONTINUED - LIPID PANEL ( [id number]) Indication:Hyperlipidemia Start:18-Jul-2017 Instruction Type:Patient Education How to access health informa tion online Indication:Dysuria Start:18-Jul-2017 Instruction Type:Patient Education How to access health informa tion online - Detail Indication:Dysuria Start:18-Jul-2017 Instruction Type:Patient Education Patient Instructions Indication:Dysuria Start:18-Jul-2017 Instruction Type:Provider Instructions for Treatment How to access health informa tion online Indication:UTI symptoms Start:16-Dec-2016 Instruction Type:Patient Education How to access health informa tion online - Detail Indication:UTI symptoms Start:16-Dec-2016 Instruction Type:Patient Education Patient Instructions Indication:UTI symptoms Start:16-Dec-2016 Instruction Type:Provider Instructions for Treatment How to access health informa tion online Indication:UTI symptoms Start:23-Sep-2016 Instruction Type:Patient Education How to access health informa tion online - Detail Indication:UTI symptoms Start:23-Sep-2016 Instruction Type:Patient Education Patient Instructions Indication:UTI symptoms Start:23-Sep-2016 Instruction Type:Provider Instructions for Treatment How to access health informa tion online Indication:Impaired Fasting Glucose Start:06-Aug-2016 Instruction Type:Patient Education How to access health informa tion online - Detail Indication:Impaired Fasting Glucose Start:06-Aug-2016 Instruction Type:Patient Education Patient Instructions Indication:Impaired Fasting Glucose Start:06-Aug-2016 Instruction Type:Provider Instructions for Treatment How to access health informa tion online Indication:UTI symptoms Start:02-May-2016 Instruction Type:Patient Education How to access health informa tion online - Detail Indication:UTI symptoms Start:02-May-2016 Instruction Type:Patient Education Patient Instructions Indication:UTI symptoms Start:02-May-2016 Instruction Type:Provider Instructions for Treatment How to access health informa tion online Indication:UTI symptoms Start:19-Apr-2016 Instruction Type:Patient Education How to access health informa tion online - Detail Indication:UTI symptoms Start:19-Apr-2016 Instruction Type:Patient Education Patient Instructions Indication:UTI symptoms Start:19-Apr-2016 Instruction Type:Provider Instructions for Treatment How to access health informa tion online Indication:Sorethroat Start:14-Mar-2016 Instruction Type:Patient Education How to access health informa tion online - Detail Indication:Sorethroat Start:14-Mar-2016 Instruction Type:Patient Education Patient Instructions Indication:Sorethroat Start:14-Mar-2016 Instruction Type:Provider Instructions for Treatment How to access health informa tion online Indication:Impaired Fasting Glucose Start:11-Mar-2016 Instruction Type:Patient Education How to access health informa tion online - Detail Indication:Impaired Fasting Glucose Start:11-Mar-2016 Instruction Type:Patient Education Patient Instructions Indication:Impaired Fasting Glucose Start:11-Mar-2016 Instruction Type:Provider Instructions for Treatment How to access health informa tion online Indication:Impaired Fasting Glucose Start:09-Oct-2015 Instruction Type:Patient Education How to access health informa tion online - Detail Indication:Impaired Fasting Glucose Start:09-Oct-2015 Instruction Type:Patient Education Patient Instructions Indication:Impaired Fasting Glucose Start:09-Oct-2015 Instruction Type:Provider Instructions for Treatment Patient Instructions Indication:Impaired Fasting Glucose Start:21-Jun-2015 Instruction Type:Provider Instructions for Treatment How to access health informa tion online Indication:Poison debi Start:31-May-2015 Instruction Type:Patient Education How to access health informa tion online - Detail Indication:Poison debi Start:31-May-2015 Instruction Type:Patient Education Patient Instructions Indication:Poison debi Start:31-May-2015 Instruction Type:Provider Instructions for Treatment Patient Instructions Indication:Impaired Fasting Glucose Start:15-Feb-2015 Instruction Type:Provider Instructions for Treatment How to access health informa tion online Indication:Impaired Fasting Glucose Start:19-Oct-2014 Instruction Type:Patient Education How to access health informa tion online - Detail Indication:Impaired Fasting Glucose Start:19-Oct-2014 Instruction Type:Patient Education Patient Instructions Indication:Impaired Fasting Glucose Start:19-Oct-2014 Instruction Type:Provider Instructions for Treatment How to access health informa tion online Indication:Impaired Fasting Glucose Start:20-Jul-2014 Instruction Type:Patient Education How to access health informa tion online - Detail Indication:Impaired Fasting Glucose Start:20-Jul-2014 Instruction Type:Patient Education Patient Instructions Indication:Impaired Fasting Glucose Start:20-Jul-2014 Instruction Type:Provider Instructions for Treatment Patient Instructions Indication:Encounter for Medicare annual wellness exam Start:04-May-2014 Instruction Type:Provider Instructions for Treatment Patient Instructions Indication:Impaired Fasting Glucose Start:16-Mar-2014 Instruction Type:Provider Instructions for Treatment Patient Instructions Indication:Impaired Fasting Glucose Start:09-Nov-2013 Instruction Type:Provider Instructions for Treatment Patient Instructions Indication:Vaginal yeast infection Start:17-Aug-2013 Instruction Type:Provider Instructions for Treatment Patient Instructions Indication:Impaired Fasting Glucose Start:06-Aug-2013 Instruction Type:Provider Instructions for Treatment Patient Instructions Indication:Diverticulitis Start:30-Jun-2013 Instruction Type:Provider Instructions for Treatment [facility]; [facility] Work Phone: Instructions* Name Dates Details Patient Instructions Indication:Nonsmoker Start:07-Nov-2022 Instruction Type:Provider Instructions for Treatment How to Access Health Informa tion Online using Patient Portal and 3rd [employer] Apps Indication:Nonsmoker Start:07-Nov-2022 Instruction Type:Patient Education Patient Instructions Indication:UTI symptoms Start:24-Sep-2022 Instruction Type:Provider Instructions for Treatment How to Access Health Informa tion Online using Patient Portal and 3rd [employer] Apps Indication:UTI symptoms Start:24-Sep-2022 Instruction Type:Patient Education Patient Instructions Indication:BMI 31.0-31.9,adult Start:11-Mar-2022 Instruction Type:Provider Instructions for Treatment How to Access Health Informa tion Online using Patient Portal and 3rd [employer] Apps Indication:BMI 31.0-31.9,adult Start:11-Mar-2022 Instruction Type:Patient Education Patient Instructions Indication:BMI 31.0-31.9,adult Start:11-Dec-2021 Instruction Type:Provider Instructions for Treatment How to Access Health Informa tion Online using Patient Portal and 3rd [employer] Apps Indication:BMI 31.0-31.9,adult Start:11-Dec-2021 Instruction Type:Patient Education Patient Instructions Indication:Hyperlipidemia Start:26-Sep-2021 Instruction Type:Provider Instructions for Treatment How to Access Health Informa tion Online using Patient Portal and 3rd [employer] Apps Indication:Impaired Fasting Glucose Start:26-Sep-2021 Instruction Type:Patient Education Patient Instructions Indication:BMI 31.0-31.9,adult Start:08-Jun-2021 Instruction Type:Provider Instructions for Treatment How to Access Health Informa tion Online using Patient Portal and 3rd [employer] Apps Indication:Impaired Fasting Glucose Start:08-Jun-2021 Instruction Type:Patient Education Patient Instructions Indication:Nonsmoker Start:19-Feb-2021 Instruction Type:Provider Instructions for Treatment How to Access Health Informa tion Online using Patient Portal and 3rd Republican Apps Indication:Nonsmoker Start:19-Feb-2021 Instruction Type:Patient Education Patient Instructions Indication:BMI 32.0-32.9,adult Start:30-Jan-2021 Instruction Type:Provider Instructions for Treatment How to Access Health Informa tion Online using Patient Portal and 3rd [employer] Apps Indication:BMI 32.0-32.9,adult Start:30-Jan-2021 Instruction Type:Patient Education Patient Instructions Indication:BMI 32.0-32.9,adult Start:03-Jan-2021 Instruction Type:Provider Instructions for Treatment How to Access Health Informa tion Online using Patient Portal and 3rd [employer] Apps Indication:BMI 32.0-32.9,adult Start:03-Jan-2021 Instruction Type:Patient Education How to access health informa tion online Indication:Nonsmoker Start:23-Oct-2020 Instruction Type:Patient Education How to access health informa tion online - Detail Indication:Nonsmoker Start:23-Oct-2020 Instruction Type:Patient Education Patient Instructions Indication:Nonsmoker Start:23-Oct-2020 Instruction Type:Provider Instructions for Treatment How to access health informa tion online Indication:Nonsmoker Start:18-Sep-2020 Instruction Type:Patient Education How to access health informa tion online - Detail Indication:Nonsmoker Start:18-Sep-2020 Instruction Type:Patient Education Patient Instructions Indication:Nonsmoker Start:18-Sep-2020 Instruction Type:Provider Instructions for Treatment How to access health informa tion online Indication:Nonsmoker Start:21-Jun-2020 Instruction Type:Patient Education How to access health informa tion online - Detail Indication:Nonsmoker Start:21-Jun-2020 Instruction Type:Patient Education Patient Instructions Indication:BMI 31.0-31.9,adult Start:21-Jun-2020 Instruction Type:Provider Instructions for Treatment How to access health informa tion online Indication:Nonsmoker Start:01-Mar-2020 Instruction Type:Patient Education How to access health informa tion online - Detail Indication:Nonsmoker Start:01-Mar-2020 Instruction Type:Patient Education Patient Instructions Indication:Nonsmoker Start:01-Mar-2020 Instruction Type:Provider Instructions for Treatment How to access health informa tion online Indication:BMI 32.0-32.9,adult Start:28-Feb-2020 Instruction Type:Patient Education How to access health informa tion online - Detail Indication:BMI 32.0-32.9,adult Start:28-Feb-2020 Instruction Type:Patient Education Patient Instructions Indication:BMI 32.0-32.9,adult Start:28-Feb-2020 Instruction Type:Provider Instructions for Treatment How to access health informa tion online Indication:Urinary frequency Start:14-Oct-2019 Instruction Type:Patient Education How to access health informa tion online - Detail Indication:Urinary frequency Start:14-Oct-2019 Instruction Type:Patient Education Patient Instructions Indication:Urinary frequency Start:14-Oct-2019 Instruction Type:Provider Instructions for Treatment How to access health informa tion online Indication:Urinary frequency Start:02-Dec-2018 Instruction Type:Patient Education How to access health informa tion online - Detail Indication:Urinary frequency Start:02-Dec-2018 Instruction Type:Patient Education Patient Instructions Indication:Urinary frequency Start:02-Dec-2018 Instruction Type:Provider Instructions for Treatment How to access health informa tion online Indication:Nonsmoker Start:27-Jul-2018 Instruction Type:Patient Education How to access health informa tion online - Detail Indication:Nonsmoker Start:27-Jul-2018 Instruction Type:Patient Education Patient Instructions Indication:Nonsmoker Start:27-Jul-2018 Instruction Type:Provider Instructions for Treatment How to access health informa tion online Indication:BMI 32.0-32.9,adult Start:16-Oct-2017 Instruction Type:Patient Education How to access health informa tion online - Detail Indication:BMI 32.0-32.9,adult Start:16-Oct-2017 Instruction Type:Patient Education Patient Instructions Indication:UTI (urinary tract infection) Start:16-Oct-2017 Instruction Type:Provider Instructions for Treatment DISCONTINUED - METABOLIC ESPITIA EL, COMPREHENSIVE ([id number]) Indication:Renal Insufficiency (Renamed from Impaired renal function) Start:18-Jul-2017 Instruction Type:Patient Education DISCONTINUED - [id number] ([id number]) Indication:Fatty liver Start:18-Jul-2017 Instruction Type:Patient Education DISCONTINUED - PTT (Activate d Partial Thromboplastin Time) ([id number]) Indication:Fatty liver Start:18-Jul-2017 Instruction Type:Patient Education DISCONTINUED - PT (PROTHROMB IN TIME) ([id number]) Indication:Fatty liver Start:18-Jul-2017 Instruction Type:Patient Education DISCONTINUED - LIPID PANEL ( [id number]) Indication:Hyperlipidemia Start:18-Jul-2017 Instruction Type:Patient Education How to access health informa tion online Indication:Dysuria Start:18-Jul-2017 Instruction Type:Patient Education How to access health informa tion online - Detail Indication:Dysuria Start:18-Jul-2017 Instruction Type:Patient Education Patient Instructions Indication:Dysuria Start:18-Jul-2017 Instruction Type:Provider Instructions for Treatment How to access health informa tion online Indication:UTI symptoms Start:16-Dec-2016 Instruction Type:Patient Education How to access health informa tion online - Detail Indication:UTI symptoms Start:16-Dec-2016 Instruction Type:Patient Education Patient Instructions Indication:UTI symptoms Start:16-Dec-2016 Instruction Type:Provider Instructions for Treatment How to access health informa tion online Indication:UTI symptoms Start:23-Sep-2016 Instruction Type:Patient Education How to access health informa tion online - Detail Indication:UTI symptoms Start:23-Sep-2016 Instruction Type:Patient Education Patient Instructions Indication:UTI symptoms Start:23-Sep-2016 Instruction Type:Provider Instructions for Treatment How to access health informa tion online Indication:Impaired Fasting Glucose Start:06-Aug-2016 Instruction Type:Patient Education How to access health informa tion online - Detail Indication:Impaired Fasting Glucose Start:06-Aug-2016 Instruction Type:Patient Education Patient Instructions Indication:Impaired Fasting Glucose Start:06-Aug-2016 Instruction Type:Provider Instructions for Treatment How to access health informa tion online Indication:UTI symptoms Start:02-May-2016 Instruction Type:Patient Education How to access health informa tion online - Detail Indication:UTI symptoms Start:02-May-2016 Instruction Type:Patient Education Patient Instructions Indication:UTI symptoms Start:02-May-2016 Instruction Type:Provider Instructions for Treatment How to access health informa tion online Indication:UTI symptoms Start:19-Apr-2016 Instruction Type:Patient Education How to access health informa tion online - Detail Indication:UTI symptoms Start:19-Apr-2016 Instruction Type:Patient Education Patient Instructions Indication:UTI symptoms Start:19-Apr-2016 Instruction Type:Provider Instructions for Treatment How to access health informa tion online Indication:Sorethroat Start:14-Mar-2016 Instruction Type:Patient Education How to access health informa tion online - Detail Indication:Sorethroat Start:14-Mar-2016 Instruction Type:Patient Education Patient Instructions Indication:Sorethroat Start:14-Mar-2016 Instruction Type:Provider Instructions for Treatment How to access health informa tion online Indication:Impaired Fasting Glucose Start:11-Mar-2016 Instruction Type:Patient Education How to access health informa tion online - Detail Indication:Impaired Fasting Glucose Start:11-Mar-2016 Instruction Type:Patient Education Patient Instructions Indication:Impaired Fasting Glucose Start:11-Mar-2016 Instruction Type:Provider Instructions for Treatment How to access health informa tion online Indication:Impaired Fasting Glucose Start:09-Oct-2015 Instruction Type:Patient Education How to access health informa tion online - Detail Indication:Impaired Fasting Glucose Start:09-Oct-2015 Instruction Type:Patient Education Patient Instructions Indication:Impaired Fasting Glucose Start:09-Oct-2015 Instruction Type:Provider Instructions for Treatment Patient Instructions Indication:Impaired Fasting Glucose Start:21-Jun-2015 Instruction Type:Provider Instructions for Treatment How to access health informa tion online Indication:Poison debi Start:31-May-2015 Instruction Type:Patient Education How to access health informa tion online - Detail Indication:Poison debi Start:31-May-2015 Instruction Type:Patient Education Patient Instructions Indication:Poison debi Start:31-May-2015 Instruction Type:Provider Instructions for Treatment Patient Instructions Indication:Impaired Fasting Glucose Start:15-Feb-2015 Instruction Type:Provider Instructions for Treatment How to access health informa tion online Indication:Impaired Fasting Glucose Start:19-Oct-2014 Instruction Type:Patient Education How to access health informa tion online - Detail Indication:Impaired Fasting Glucose Start:19-Oct-2014 Instruction Type:Patient Education Patient Instructions Indication:Impaired Fasting Glucose Start:19-Oct-2014 Instruction Type:Provider Instructions for Treatment How to access health informa tion online Indication:Impaired Fasting Glucose Start:20-Jul-2014 Instruction Type:Patient Education How to access health informa tion online - Detail Indication:Impaired Fasting Glucose Start:20-Jul-2014 Instruction Type:Patient Education Patient Instructions Indication:Impaired Fasting Glucose Start:20-Jul-2014 Instruction Type:Provider Instructions for Treatment Patient Instructions Indication:Encounter for Medicare annual wellness exam Start:04-May-2014 Instruction Type:Provider Instructions for Treatment Patient Instructions Indication:Impaired Fasting Glucose Start:16-Mar-2014 Instruction Type:Provider Instructions for Treatment Patient Instructions Indication:Impaired Fasting Glucose Start:09-Nov-2013 Instruction Type:Provider Instructions for Treatment Patient Instructions Indication:Vaginal yeast infection Start:17-Aug-2013 Instruction Type:Provider Instructions for Treatment Patient Instructions Indication:Impaired Fasting Glucose Start:06-Aug-2013 Instruction Type:Provider Instructions for Treatment Patient Instructions Indication:Diverticulitis Start:30-Jun-2013 Instruction Type:Provider Instructions for Treatment [facility]; [facility] Work Phone: Instructions* Name Dates Details Patient Instructions Indication:UTI symptoms Start:24-Dec-2022 Instruction Type:Provider Instructions for Treatment How to Access Health Informa tion Online using Patient Portal and [employer] Apps Indication:UTI symptoms Start:24-Dec-2022 Instruction Type:Patient Education Patient Instructions Indication:Nonsmoker Start:07-Nov-2022 Instruction Type:Provider Instructions for Treatment How to Access Health Informa tion Online using Patient Portal and [employer] Apps Indication:Nonsmoker Start:07-Nov-2022 Instruction Type:Patient Education Patient Instructions Indication:UTI symptoms Start:24-Sep-2022 Instruction Type:Provider Instructions for Treatment How to Access Health Informa tion Online using Patient Portal and [employer] Apps Indication:UTI symptoms Start:24-Sep-2022 Instruction Type:Patient Education Patient Instructions Indication:BMI 31.0-31.9,adult Start:11-Mar-2022 Instruction Type:Provider Instructions for Treatment How to Access Health Informa tion Online using Patient Portal and [employer] Apps Indication:BMI 31.0-31.9,adult Start:11-Mar-2022 Instruction Type:Patient Education Patient Instructions Indication:BMI 31.0-31.9,adult Start:11-Dec-2021 Instruction Type:Provider Instructions for Treatment How to Access Health Informa tion Online using Patient Portal and [employer] Apps Indication:BMI 31.0-31.9,adult Start:11-Dec-2021 Instruction Type:Patient Education Patient Instructions Indication:Hyperlipidemia Start:26-Sep-2021 Instruction Type:Provider Instructions for Treatment How to Access Health Informa tion Online using Patient Portal and [employer] Apps Indication:Impaired Fasting Glucose Start:26-Sep-2021 Instruction Type:Patient Education Patient Instructions Indication:BMI 31.0-31.9,adult Start:08-Jun-2021 Instruction Type:Provider Instructions for Treatment How to Access Health Informa tion Online using Patient Portal and [employer] Apps Indication:Impaired Fasting Glucose Start:08-Jun-2021 Instruction Type:Patient Education Patient Instructions Indication:Nonsmoker Start:19-Feb-2021 Instruction Type:Provider Instructions for Treatment How to Access Health Informa tion Online using Patient Portal and [employer] Apps Indication:Nonsmoker Start:19-Feb-2021 Instruction Type:Patient Education Patient Instructions Indication:BMI 32.0-32.9,adult Start:30-Jan-2021 Instruction Type:Provider Instructions for Treatment How to Access Health Informa tion Online using Patient Portal and [employer] Apps Indication:BMI 32.0-32.9,adult Start:30-Jan-2021 Instruction Type:Patient Education Patient Instructions Indication:BMI 32.0-32.9,adult Start:03-Jan-2021 Instruction Type:Provider Instructions for Treatment How to Access Health Informa tion Online using Patient Portal and [employer] Apps Indication:BMI 32.0-32.9,adult Start:03-Jan-2021 Instruction Type:Patient Education How to access health informa tion online Indication:Nonsmoker Start:23-Oct-2020 Instruction Type:Patient Education How to access health informa tion online - Detail Indication:Nonsmoker Start:23-Oct-2020 Instruction Type:Patient Education Patient Instructions Indication:Nonsmoker Start:23-Oct-2020 Instruction Type:Provider Instructions for Treatment How to access health informa tion online Indication:Nonsmoker Start:18-Sep-2020 Instruction Type:Patient Education How to access health informa tion online - Detail Indication:Nonsmoker Start:18-Sep-2020 Instruction Type:Patient Education Patient Instructions Indication:Nonsmoker Start:18-Sep-2020 Instruction Type:Provider Instructions for Treatment How to access health informa tion online Indication:Nonsmoker Start:21-Jun-2020 Instruction Type:Patient Education How to access health informa tion online - Detail Indication:Nonsmoker Start:21-Jun-2020 Instruction Type:Patient Education Patient Instructions Indication:BMI 31.0-31.9,adult Start:21-Jun-2020 Instruction Type:Provider Instructions for Treatment How to access health informa tion online Indication:Nonsmoker Start:01-Mar-2020 Instruction Type:Patient Education How to access health informa tion online - Detail Indication:Nonsmoker Start:01-Mar-2020 Instruction Type:Patient Education Patient Instructions Indication:Nonsmoker Start:01-Mar-2020 Instruction Type:Provider Instructions for Treatment How to access health informa tion online Indication:BMI 32.0-32.9,adult Start:28-Feb-2020 Instruction Type:Patient Education How to access health informa tion online - Detail Indication:BMI 32.0-32.9,adult Start:28-Feb-2020 Instruction Type:Patient Education Patient Instructions Indication:BMI 32.0-32.9,adult Start:28-Feb-2020 Instruction Type:Provider Instructions for Treatment How to access health informa tion online Indication:Urinary frequency Start:14-Oct-2019 Instruction Type:Patient Education How to access health informa tion online - Detail Indication:Urinary frequency Start:14-Oct-2019 Instruction Type:Patient Education Patient Instructions Indication:Urinary frequency Start:14-Oct-2019 Instruction Type:Provider Instructions for Treatment How to access health informa tion online Indication:Urinary frequency Start:02-Dec-2018 Instruction Type:Patient Education How to access health informa tion online - Detail Indication:Urinary frequency Start:02-Dec-2018 Instruction Type:Patient Education Patient Instructions Indication:Urinary frequency Start:02-Dec-2018 Instruction Type:Provider Instructions for Treatment How to access health informa tion online Indication:Nonsmoker Start:27-Jul-2018 Instruction Type:Patient Education How to access health informa tion online - Detail Indication:Nonsmoker Start:27-Jul-2018 Instruction Type:Patient Education Patient Instructions Indication:Nonsmoker Start:27-Jul-2018 Instruction Type:Provider Instructions for Treatment How to access health informa tion online Indication:BMI 32.0-32.9,adult Start:16-Oct-2017 Instruction Type:Patient Education How to access health informa tion online - Detail Indication:BMI 32.0-32.9,adult Start:16-Oct-2017 Instruction Type:Patient Education Patient Instructions Indication:UTI (urinary tract infection) Start:16-Oct-2017 Instruction Type:Provider Instructions for Treatment DISCONTINUED - METABOLIC ESPITIA EL, COMPREHENSIVE ([id number]) Indication:Renal Insufficiency (Renamed from Impaired renal function) Start:18-Jul-2017 Instruction Type:Patient Education DISCONTINUED - [id number] ([id number]) Indication:Fatty liver Start:18-Jul-2017 Instruction Type:Patient Education DISCONTINUED - PTT (Activate d Partial Thromboplastin Time) ([id number]) Indication:Fatty liver Start:18-Jul-2017 Instruction Type:Patient Education DISCONTINUED - PT (PROTHROMB IN TIME) ([id number]) Indication:Fatty liver Start:18-Jul-2017 Instruction Type:Patient Education DISCONTINUED - LIPID PANEL ( [id number]) Indication:Hyperlipidemia Start:18-Jul-2017 Instruction Type:Patient Education How to access health informa tion online Indication:Dysuria Start:18-Jul-2017 Instruction Type:Patient Education How to access health informa tion online - Detail Indication:Dysuria Start:18-Jul-2017 Instruction Type:Patient Education Patient Instructions Indication:Dysuria Start:18-Jul-2017 Instruction Type:Provider Instructions for Treatment How to access health informa tion online Indication:UTI symptoms Start:16-Dec-2016 Instruction Type:Patient Education How to access health informa tion online - Detail Indication:UTI symptoms Start:16-Dec-2016 Instruction Type:Patient Education Patient Instructions Indication:UTI symptoms Start:16-Dec-2016 Instruction Type:Provider Instructions for Treatment How to access health informa tion online Indication:UTI symptoms Start:23-Sep-2016 Instruction Type:Patient Education How to access health informa tion online - Detail Indication:UTI symptoms Start:23-Sep-2016 Instruction Type:Patient Education Patient Instructions Indication:UTI symptoms Start:23-Sep-2016 Instruction Type:Provider Instructions for Treatment How to access health informa tion online Indication:Impaired Fasting Glucose Start:06-Aug-2016 Instruction Type:Patient Education How to access health informa tion online - Detail Indication:Impaired Fasting Glucose Start:06-Aug-2016 Instruction Type:Patient Education Patient Instructions Indication:Impaired Fasting Glucose Start:06-Aug-2016 Instruction Type:Provider Instructions for Treatment How to access health informa tion online Indication:UTI symptoms Start:02-May-2016 Instruction Type:Patient Education How to access health informa tion online - Detail Indication:UTI symptoms Start:02-May-2016 Instruction Type:Patient Education Patient Instructions Indication:UTI symptoms Start:02-May-2016 Instruction Type:Provider Instructions for Treatment How to access health informa tion online Indication:UTI symptoms Start:19-Apr-2016 Instruction Type:Patient Education How to access health informa tion online - Detail Indication:UTI symptoms Start:19-Apr-2016 Instruction Type:Patient Education Patient Instructions Indication:UTI symptoms Start:19-Apr-2016 Instruction Type:Provider Instructions for Treatment How to access health informa tion online Indication:Sorethroat Start:14-Mar-2016 Instruction Type:Patient Education How to access health informa tion online - Detail Indication:Sorethroat Start:14-Mar-2016 Instruction Type:Patient Education Patient Instructions Indication:Sorethroat Start:14-Mar-2016 Instruction Type:Provider Instructions for Treatment How to access health informa tion online Indication:Impaired Fasting Glucose Start:11-Mar-2016 Instruction Type:Patient Education How to access health informa tion online - Detail Indication:Impaired Fasting Glucose Start:11-Mar-2016 Instruction Type:Patient Education Patient Instructions Indication:Impaired Fasting Glucose Start:11-Mar-2016 Instruction Type:Provider Instructions for Treatment How to access health informa tion online Indication:Impaired Fasting Glucose Start:09-Oct-2015 Instruction Type:Patient Education How to access health informa tion online - Detail Indication:Impaired Fasting Glucose Start:09-Oct-2015 Instruction Type:Patient Education Patient Instructions Indication:Impaired Fasting Glucose Start:09-Oct-2015 Instruction Type:Provider Instructions for Treatment Patient Instructions Indication:Impaired Fasting Glucose Start:21-Jun-2015 Instruction Type:Provider Instructions for Treatment How to access health informa tion online Indication:Poison debi Start:31-May-2015 Instruction Type:Patient Education How to access health informa tion online - Detail Indication:Poison debi Start:31-May-2015 Instruction Type:Patient Education Patient Instructions Indication:Poison debi Start:31-May-2015 Instruction Type:Provider Instructions for Treatment Patient Instructions Indication:Impaired Fasting Glucose Start:15-Feb-2015 Instruction Type:Provider Instructions for Treatment How to access health informa tion online Indication:Impaired Fasting Glucose Start:19-Oct-2014 Instruction Type:Patient Education How to access health informa tion online - Detail Indication:Impaired Fasting Glucose Start:19-Oct-2014 Instruction Type:Patient Education Patient Instructions Indication:Impaired Fasting Glucose Start:19-Oct-2014 Instruction Type:Provider Instructions for Treatment How to access health informa tion online Indication:Impaired Fasting Glucose Start:20-Jul-2014 Instruction Type:Patient Education How to access health informa tion online - Detail Indication:Impaired Fasting Glucose Start:20-Jul-2014 Instruction Type:Patient Education Patient Instructions Indication:Impaired Fasting Glucose Start:20-Jul-2014 Instruction Type:Provider Instructions for Treatment Patient Instructions Indication:Encounter for Medicare annual wellness exam Start:04-May-2014 Instruction Type:Provider Instructions for Treatment Patient Instructions Indication:Impaired Fasting Glucose Start:16-Mar-2014 Instruction Type:Provider Instructions for Treatment Patient Instructions Indication:Impaired Fasting Glucose Start:09-Nov-2013 Instruction Type:Provider Instructions for Treatment Patient Instructions Indication:Vaginal yeast infection Start:17-Aug-2013 Instruction Type:Provider Instructions for Treatment Patient Instructions Indication:Impaired Fasting Glucose Start:06-Aug-2013 Instruction Type:Provider Instructions for Treatment Patient Instructions Indication:Diverticulitis Start:30-Jun-2013 Instruction Type:Provider Instructions for Treatment [facility]; [facility] Work Phone: Instructions* Name Dates Details Patient Instructions Indication:UTI symptoms Start:24-Dec-2022 Instruction Type:Provider Instructions for Treatment How to Access Health Informa tion Online using Patient Portal and [employer] Apps Indication:UTI symptoms Start:24-Dec-2022 Instruction Type:Patient Education Patient Instructions Indication:Nonsmoker Start:07-Nov-2022 Instruction Type:Provider Instructions for Treatment How to Access Health Informa tion Online using Patient Portal and [employer] Apps Indication:Nonsmoker Start:07-Nov-2022 Instruction Type:Patient Education Patient Instructions Indication:UTI symptoms Start:24-Sep-2022 Instruction Type:Provider Instructions for Treatment How to Access Health Informa tion Online using Patient Portal and [employer] Apps Indication:UTI symptoms Start:24-Sep-2022 Instruction Type:Patient Education Patient Instructions Indication:BMI 31.0-31.9,adult Start:11-Mar-2022 Instruction Type:Provider Instructions for Treatment How to Access Health Informa tion Online using Patient Portal and [employer] Apps Indication:BMI 31.0-31.9,adult Start:11-Mar-2022 Instruction Type:Patient Education Patient Instructions Indication:BMI 31.0-31.9,adult Start:11-Dec-2021 Instruction Type:Provider Instructions for Treatment How to Access Health Informa tion Online using Patient Portal and [employer] Apps Indication:BMI 31.0-31.9,adult Start:11-Dec-2021 Instruction Type:Patient Education Patient Instructions Indication:Hyperlipidemia Start:26-Sep-2021 Instruction Type:Provider Instructions for Treatment How to Access Health Informa tion Online using Patient Portal and [employer] Apps Indication:Impaired Fasting Glucose Start:26-Sep-2021 Instruction Type:Patient Education Patient Instructions Indication:BMI 31.0-31.9,adult Start:08-Jun-2021 Instruction Type:Provider Instructions for Treatment How to Access Health Informa tion Online using Patient Portal and [employer] Apps Indication:Impaired Fasting Glucose Start:08-Jun-2021 Instruction Type:Patient Education Patient Instructions Indication:Nonsmoker Start:19-Feb-2021 Instruction Type:Provider Instructions for Treatment How to Access Health Informa tion Online using Patient Portal and [employer] Apps Indication:Nonsmoker Start:19-Feb-2021 Instruction Type:Patient Education Patient Instructions Indication:BMI 32.0-32.9,adult Start:30-Jan-2021 Instruction Type:Provider Instructions for Treatment How to Access Health Informa tion Online using Patient Portal and [employer] Apps Indication:BMI 32.0-32.9,adult Start:30-Jan-2021 Instruction Type:Patient Education Patient Instructions Indication:BMI 32.0-32.9,adult Start:03-Jan-2021 Instruction Type:Provider Instructions for Treatment How to Access Health Informa tion Online using Patient Portal and [employer] Apps Indication:BMI 32.0-32.9,adult Start:03-Jan-2021 Instruction Type:Patient Education How to access health informa tion online Indication:Nonsmoker Start:23-Oct-2020 Instruction Type:Patient Education How to access health informa tion online - Detail Indication:Nonsmoker Start:23-Oct-2020 Instruction Type:Patient Education Patient Instructions Indication:Nonsmoker Start:23-Oct-2020 Instruction Type:Provider Instructions for Treatment How to access health informa tion online Indication:Nonsmoker Start:18-Sep-2020 Instruction Type:Patient Education How to access health informa tion online - Detail Indication:Nonsmoker Start:18-Sep-2020 Instruction Type:Patient Education Patient Instructions Indication:Nonsmoker Start:18-Sep-2020 Instruction Type:Provider Instructions for Treatment How to access health informa tion online Indication:Nonsmoker Start:21-Jun-2020 Instruction Type:Patient Education How to access health informa tion online - Detail Indication:Nonsmoker Start:21-Jun-2020 Instruction Type:Patient Education Patient Instructions Indication:BMI 31.0-31.9,adult Start:21-Jun-2020 Instruction Type:Provider Instructions for Treatment How to access health informa tion online Indication:Nonsmoker Start:01-Mar-2020 Instruction Type:Patient Education How to access health informa tion online - Detail Indication:Nonsmoker Start:01-Mar-2020 Instruction Type:Patient Education Patient Instructions Indication:Nonsmoker Start:01-Mar-2020 Instruction Type:Provider Instructions for Treatment How to access health informa tion online Indication:BMI 32.0-32.9,adult Start:28-Feb-2020 Instruction Type:Patient Education How to access health informa tion online - Detail Indication:BMI 32.0-32.9,adult Start:28-Feb-2020 Instruction Type:Patient Education Patient Instructions Indication:BMI 32.0-32.9,adult Start:28-Feb-2020 Instruction Type:Provider Instructions for Treatment How to access health informa tion online Indication:Urinary frequency Start:14-Oct-2019 Instruction Type:Patient Education How to access health informa tion online - Detail Indication:Urinary frequency Start:14-Oct-2019 Instruction Type:Patient Education Patient Instructions Indication:Urinary frequency Start:14-Oct-2019 Instruction Type:Provider Instructions for Treatment How to access health informa tion online Indication:Urinary frequency Start:02-Dec-2018 Instruction Type:Patient Education How to access health informa tion online - Detail Indication:Urinary frequency Start:02-Dec-2018 Instruction Type:Patient Education Patient Instructions Indication:Urinary frequency Start:02-Dec-2018 Instruction Type:Provider Instructions for Treatment How to access health informa tion online Indication:Nonsmoker Start:27-Jul-2018 Instruction Type:Patient Education How to access health informa tion online - Detail Indication:Nonsmoker Start:27-Jul-2018 Instruction Type:Patient Education Patient Instructions Indication:Nonsmoker Start:27-Jul-2018 Instruction Type:Provider Instructions for Treatment How to access health informa tion online Indication:BMI 32.0-32.9,adult Start:16-Oct-2017 Instruction Type:Patient Education How to access health informa tion online - Detail Indication:BMI 32.0-32.9,adult Start:16-Oct-2017 Instruction Type:Patient Education Patient Instructions Indication:UTI (urinary tract infection) Start:16-Oct-2017 Instruction Type:Provider Instructions for Treatment DISCONTINUED - METABOLIC ESPITIA EL, COMPREHENSIVE (09497) Indication:Renal Insufficiency (Renamed from Impaired renal function) Start:18-Jul-2017 Instruction Type:Patient Education DISCONTINUED - [id number] ([id number]) Indication:Fatty liver Start:18-Jul-2017 Instruction Type:Patient Education DISCONTINUED - PTT (Activate d Partial Thromboplastin Time) ([id number]) Indication:Fatty liver Start:18-Jul-2017 Instruction Type:Patient Education DISCONTINUED - PT (PROTHROMB IN TIME) ([id number]) Indication:Fatty liver Start:18-Jul-2017 Instruction Type:Patient Education DISCONTINUED - LIPID PANEL ( [id number]) Indication:Hyperlipidemia Start:18-Jul-2017 Instruction Type:Patient Education How to access health informa tion online Indication:Dysuria Start:18-Jul-2017 Instruction Type:Patient Education How to access health informa tion online - Detail Indication:Dysuria Start:18-Jul-2017 Instruction Type:Patient Education Patient Instructions Indication:Dysuria Start:18-Jul-2017 Instruction Type:Provider Instructions for Treatment How to access health informa tion online Indication:UTI symptoms Start:16-Dec-2016 Instruction Type:Patient Education How to access health informa tion online - Detail Indication:UTI symptoms Start:16-Dec-2016 Instruction Type:Patient Education Patient Instructions Indication:UTI symptoms Start:16-Dec-2016 Instruction Type:Provider Instructions for Treatment How to access health informa tion online Indication:UTI symptoms Start:23-Sep-2016 Instruction Type:Patient Education How to access health informa tion online - Detail Indication:UTI symptoms Start:23-Sep-2016 Instruction Type:Patient Education Patient Instructions Indication:UTI symptoms Start:23-Sep-2016 Instruction Type:Provider Instructions for Treatment How to access health informa tion online Indication:Impaired Fasting Glucose Start:06-Aug-2016 Instruction Type:Patient Education How to access health informa tion online - Detail Indication:Impaired Fasting Glucose Start:06-Aug-2016 Instruction Type:Patient Education Patient Instructions Indication:Impaired Fasting Glucose Start:06-Aug-2016 Instruction Type:Provider Instructions for Treatment How to access health informa tion online Indication:UTI symptoms Start:02-May-2016 Instruction Type:Patient Education How to access health informa tion online - Detail Indication:UTI symptoms Start:02-May-2016 Instruction Type:Patient Education Patient Instructions Indication:UTI symptoms Start:02-May-2016 Instruction Type:Provider Instructions for Treatment How to access health informa tion online Indication:UTI symptoms Start:19-Apr-2016 Instruction Type:Patient Education How to access health informa tion online - Detail Indication:UTI symptoms Start:19-Apr-2016 Instruction Type:Patient Education Patient Instructions Indication:UTI symptoms Start:19-Apr-2016 Instruction Type:Provider Instructions for Treatment How to access health informa tion online Indication:Sorethroat Start:14-Mar-2016 Instruction Type:Patient Education How to access health informa tion online - Detail Indication:Sorethroat Start:14-Mar-2016 Instruction Type:Patient Education Patient Instructions Indication:Sorethroat Start:14-Mar-2016 Instruction Type:Provider Instructions for Treatment How to access health informa tion online Indication:Impaired Fasting Glucose Start:11-Mar-2016 Instruction Type:Patient Education How to access health informa tion online - Detail Indication:Impaired Fasting Glucose Start:11-Mar-2016 Instruction Type:Patient Education Patient Instructions Indication:Impaired Fasting Glucose Start:11-Mar-2016 Instruction Type:Provider Instructions for Treatment How to access health informa tion online Indication:Impaired Fasting Glucose Start:09-Oct-2015 Instruction Type:Patient Education How to access health informa tion online - Detail Indication:Impaired Fasting Glucose Start:09-Oct-2015 Instruction Type:Patient Education Patient Instructions Indication:Impaired Fasting Glucose Start:09-Oct-2015 Instruction Type:Provider Instructions for Treatment Patient Instructions Indication:Impaired Fasting Glucose Start:21-Jun-2015 Instruction Type:Provider Instructions for Treatment How to access health informa tion online Indication:Poison debi Start:31-May-2015 Instruction Type:Patient Education How to access health informa tion online - Detail Indication:Poison debi Start:31-May-2015 Instruction Type:Patient Education Patient Instructions Indication:Poison debi Start:31-May-2015 Instruction Type:Provider Instructions for Treatment Patient Instructions Indication:Impaired Fasting Glucose Start:15-Feb-2015 Instruction Type:Provider Instructions for Treatment How to access health informa tion online Indication:Impaired Fasting Glucose Start:19-Oct-2014 Instruction Type:Patient Education How to access health informa tion online - Detail Indication:Impaired Fasting Glucose Start:19-Oct-2014 Instruction Type:Patient Education Patient Instructions Indication:Impaired Fasting Glucose Start:19-Oct-2014 Instruction Type:Provider Instructions for Treatment How to access health informa tion online Indication:Impaired Fasting Glucose Start:20-Jul-2014 Instruction Type:Patient Education How to access health informa tion online - Detail Indication:Impaired Fasting Glucose Start:20-Jul-2014 Instruction Type:Patient Education Patient Instructions Indication:Impaired Fasting Glucose Start:20-Jul-2014 Instruction Type:Provider Instructions for Treatment Patient Instructions Indication:Encounter for Medicare annual wellness exam Start:04-May-2014 Instruction Type:Provider Instructions for Treatment Patient Instructions Indication:Impaired Fasting Glucose Start:16-Mar-2014 Instruction Type:Provider Instructions for Treatment Patient Instructions Indication:Impaired Fasting Glucose Start:09-Nov-2013 Instruction Type:Provider Instructions for Treatment Patient Instructions Indication:Vaginal yeast infection Start:17-Aug-2013 Instruction Type:Provider Instructions for Treatment Patient Instructions Indication:Impaired Fasting Glucose Start:06-Aug-2013 Instruction Type:Provider Instructions for Treatment Patient Instructions Indication:Diverticulitis Start:30-Jun-2013 Instruction Type:Provider Instructions for Treatment [facility]; [facility] Work Phone: Instructions* Name Dates Details Patient Instructions Indication:UTI symptoms Start:24-Dec-2022 Instruction Type:Provider Instructions for Treatment How to Access Health Informa tion Online using Patient Portal and [employer] Apps Indication:UTI symptoms Start:24-Dec-2022 Instruction Type:Patient Education Patient Instructions Indication:Nonsmoker Start:07-Nov-2022 Instruction Type:Provider Instructions for Treatment How to Access Health Informa tion Online using Patient Portal and [employer] Apps Indication:Nonsmoker Start:07-Nov-2022 Instruction Type:Patient Education Patient Instructions Indication:UTI symptoms Start:24-Sep-2022 Instruction Type:Provider Instructions for Treatment How to Access Health Informa tion Online using Patient Portal and [employer] Apps Indication:UTI symptoms Start:24-Sep-2022 Instruction Type:Patient Education Patient Instructions Indication:BMI 31.0-31.9,adult Start:11-Mar-2022 Instruction Type:Provider Instructions for Treatment How to Access Health Informa tion Online using Patient Portal and [employer] Apps Indication:BMI 31.0-31.9,adult Start:11-Mar-2022 Instruction Type:Patient Education Patient Instructions Indication:BMI 31.0-31.9,adult Start:11-Dec-2021 Instruction Type:Provider Instructions for Treatment How to Access Health Informa tion Online using Patient Portal and [employer]rd [employer] Apps Indication:BMI 31.0-31.9,adult Start:11-Dec-2021 Instruction Type:Patient Education Patient Instructions Indication:Hyperlipidemia Start:26-Sep-2021 Instruction Type:Provider Instructions for Treatment How to Access Health Informa tion Online using Patient Portal and [employer] Apps Indication:Impaired Fasting Glucose Start:26-Sep-2021 Instruction Type:Patient Education Patient Instructions Indication:BMI 31.0-31.9,adult Start:08-Jun-2021 Instruction Type:Provider Instructions for Treatment How to Access Health Informa tion Online using Patient Portal and [employer] Apps Indication:Impaired Fasting Glucose Start:08-Jun-2021 Instruction Type:Patient Education Patient Instructions Indication:Nonsmoker Start:19-Feb-2021 Instruction Type:Provider Instructions for Treatment How to Access Health Informa tion Online using Patient Portal and [employer] Apps Indication:Nonsmoker Start:19-Feb-2021 Instruction Type:Patient Education Patient Instructions Indication:BMI 32.0-32.9,adult Start:30-Jan-2021 Instruction Type:Provider Instructions for Treatment How to Access Health Informa tion Online using Patient Portal and [employer] Apps Indication:BMI 32.0-32.9,adult Start:30-Jan-2021 Instruction Type:Patient Education Patient Instructions Indication:BMI 32.0-32.9,adult Start:03-Jan-2021 Instruction Type:Provider Instructions for Treatment How to Access Health Informa tion Online using Patient Portal and [employer] Apps Indication:BMI 32.0-32.9,adult Start:03-Jan-2021 Instruction Type:Patient Education How to access health informa tion online Indication:Nonsmoker Start:23-Oct-2020 Instruction Type:Patient Education How to access health informa tion online - Detail Indication:Nonsmoker Start:23-Oct-2020 Instruction Type:Patient Education Patient Instructions Indication:Nonsmoker Start:23-Oct-2020 Instruction Type:Provider Instructions for Treatment How to access health informa tion online Indication:Nonsmoker Start:18-Sep-2020 Instruction Type:Patient Education How to access health informa tion online - Detail Indication:Nonsmoker Start:18-Sep-2020 Instruction Type:Patient Education Patient Instructions Indication:Nonsmoker Start:18-Sep-2020 Instruction Type:Provider Instructions for Treatment How to access health informa tion online Indication:Nonsmoker Start:21-Jun-2020 Instruction Type:Patient Education How to access health informa tion online - Detail Indication:Nonsmoker Start:21-Jun-2020 Instruction Type:Patient Education Patient Instructions Indication:BMI 31.0-31.9,adult Start:21-Jun-2020 Instruction Type:Provider Instructions for Treatment How to access health informa tion online Indication:Nonsmoker Start:01-Mar-2020 Instruction Type:Patient Education How to access health informa tion online - Detail Indication:Nonsmoker Start:01-Mar-2020 Instruction Type:Patient Education Patient Instructions Indication:Nonsmoker Start:01-Mar-2020 Instruction Type:Provider Instructions for Treatment How to access health informa tion online Indication:BMI 32.0-32.9,adult Start:28-Feb-2020 Instruction Type:Patient Education How to access health informa tion online - Detail Indication:BMI 32.0-32.9,adult Start:28-Feb-2020 Instruction Type:Patient Education Patient Instructions Indication:BMI 32.0-32.9,adult Start:28-Feb-2020 Instruction Type:Provider Instructions for Treatment How to access health informa tion online Indication:Urinary frequency Start:14-Oct-2019 Instruction Type:Patient Education How to access health informa tion online - Detail Indication:Urinary frequency Start:14-Oct-2019 Instruction Type:Patient Education Patient Instructions Indication:Urinary frequency Start:14-Oct-2019 Instruction Type:Provider Instructions for Treatment How to access health informa tion online Indication:Urinary frequency Start:02-Dec-2018 Instruction Type:Patient Education How to access health informa tion online - Detail Indication:Urinary frequency Start:02-Dec-2018 Instruction Type:Patient Education Patient Instructions Indication:Urinary frequency Start:02-Dec-2018 Instruction Type:Provider Instructions for Treatment How to access health informa tion online Indication:Nonsmoker Start:27-Jul-2018 Instruction Type:Patient Education How to access health informa tion online - Detail Indication:Nonsmoker Start:27-Jul-2018 Instruction Type:Patient Education Patient Instructions Indication:Nonsmoker Start:27-Jul-2018 Instruction Type:Provider Instructions for Treatment How to access health informa tion online Indication:BMI 32.0-32.9,adult Start:16-Oct-2017 Instruction Type:Patient Education How to access health informa tion online - Detail Indication:BMI 32.0-32.9,adult Start:16-Oct-2017 Instruction Type:Patient Education Patient Instructions Indication:UTI (urinary tract infection) Start:16-Oct-2017 Instruction Type:Provider Instructions for Treatment DISCONTINUED - METABOLIC ESPITIA EL, COMPREHENSIVE ([id number]) Indication:Renal Insufficiency (Renamed from Impaired renal function) Start:18-Jul-2017 Instruction Type:Patient Education DISCONTINUED - [id number] ([id number]) Indication:Fatty liver Start:18-Jul-2017 Instruction Type:Patient Education DISCONTINUED - PTT (Activate d Partial Thromboplastin Time) ([id number]) Indication:Fatty liver Start:18-Jul-2017 Instruction Type:Patient Education DISCONTINUED - PT (PROTHROMB IN TIME) ([id number]) Indication:Fatty liver Start:18-Jul-2017 Instruction Type:Patient Education DISCONTINUED - LIPID PANEL ( [id number]) Indication:Hyperlipidemia Start:18-Jul-2017 Instruction Type:Patient Education How to access health informa tion online Indication:Dysuria Start:18-Jul-2017 Instruction Type:Patient Education How to access health informa tion online - Detail Indication:Dysuria Start:18-Jul-2017 Instruction Type:Patient Education Patient Instructions Indication:Dysuria Start:18-Jul-2017 Instruction Type:Provider Instructions for Treatment How to access health informa tion online Indication:UTI symptoms Start:16-Dec-2016 Instruction Type:Patient Education How to access health informa tion online - Detail Indication:UTI symptoms Start:16-Dec-2016 Instruction Type:Patient Education Patient Instructions Indication:UTI symptoms Start:16-Dec-2016 Instruction Type:Provider Instructions for Treatment How to access health informa tion online Indication:UTI symptoms Start:23-Sep-2016 Instruction Type:Patient Education How to access health informa tion online - Detail Indication:UTI symptoms Start:23-Sep-2016 Instruction Type:Patient Education Patient Instructions Indication:UTI symptoms Start:23-Sep-2016 Instruction Type:Provider Instructions for Treatment How to access health informa tion online Indication:Impaired Fasting Glucose Start:06-Aug-2016 Instruction Type:Patient Education How to access health informa tion online - Detail Indication:Impaired Fasting Glucose Start:06-Aug-2016 Instruction Type:Patient Education Patient Instructions Indication:Impaired Fasting Glucose Start:06-Aug-2016 Instruction Type:Provider Instructions for Treatment How to access health informa tion online Indication:UTI symptoms Start:02-May-2016 Instruction Type:Patient Education How to access health informa tion online - Detail Indication:UTI symptoms Start:02-May-2016 Instruction Type:Patient Education Patient Instructions Indication:UTI symptoms Start:02-May-2016 Instruction Type:Provider Instructions for Treatment How to access health informa tion online Indication:UTI symptoms Start:19-Apr-2016 Instruction Type:Patient Education How to access health informa tion online - Detail Indication:UTI symptoms Start:19-Apr-2016 Instruction Type:Patient Education Patient Instructions Indication:UTI symptoms Start:19-Apr-2016 Instruction Type:Provider Instructions for Treatment How to access health informa tion online Indication:Sorethroat Start:14-Mar-2016 Instruction Type:Patient Education How to access health informa tion online - Detail Indication:Sorethroat Start:14-Mar-2016 Instruction Type:Patient Education Patient Instructions Indication:Sorethroat Start:14-Mar-2016 Instruction Type:Provider Instructions for Treatment How to access health informa tion online Indication:Impaired Fasting Glucose Start:11-Mar-2016 Instruction Type:Patient Education How to access health informa tion online - Detail Indication:Impaired Fasting Glucose Start:11-Mar-2016 Instruction Type:Patient Education Patient Instructions Indication:Impaired Fasting Glucose Start:11-Mar-2016 Instruction Type:Provider Instructions for Treatment How to access health informa tion online Indication:Impaired Fasting Glucose Start:09-Oct-2015 Instruction Type:Patient Education How to access health informa tion online - Detail Indication:Impaired Fasting Glucose Start:09-Oct-2015 Instruction Type:Patient Education Patient Instructions Indication:Impaired Fasting Glucose Start:09-Oct-2015 Instruction Type:Provider Instructions for Treatment Patient Instructions Indication:Impaired Fasting Glucose Start:21-Jun-2015 Instruction Type:Provider Instructions for Treatment How to access health informa tion online Indication:Poison debi Start:31-May-2015 Instruction Type:Patient Education How to access health informa tion online - Detail Indication:Poison debi Start:31-May-2015 Instruction Type:Patient Education Patient Instructions Indication:Poison debi Start:31-May-2015 Instruction Type:Provider Instructions for Treatment Patient Instructions Indication:Impaired Fasting Glucose Start:15-Feb-2015 Instruction Type:Provider Instructions for Treatment How to access health informa tion online Indication:Impaired Fasting Glucose Start:19-Oct-2014 Instruction Type:Patient Education How to access health informa tion online - Detail Indication:Impaired Fasting Glucose Start:19-Oct-2014 Instruction Type:Patient Education Patient Instructions Indication:Impaired Fasting Glucose Start:19-Oct-2014 Instruction Type:Provider Instructions for Treatment How to access health informa tion online Indication:Impaired Fasting Glucose Start:20-Jul-2014 Instruction Type:Patient Education How to access health informa tion online - Detail Indication:Impaired Fasting Glucose Start:20-Jul-2014 Instruction Type:Patient Education Patient Instructions Indication:Impaired Fasting Glucose Start:20-Jul-2014 Instruction Type:Provider Instructions for Treatment Patient Instructions Indication:Encounter for Medicare annual wellness exam Start:04-May-2014 Instruction Type:Provider Instructions for Treatment Patient Instructions Indication:Impaired Fasting Glucose Start:16-Mar-2014 Instruction Type:Provider Instructions for Treatment Patient Instructions Indication:Impaired Fasting Glucose Start:09-Nov-2013 Instruction Type:Provider Instructions for Treatment Patient Instructions Indication:Vaginal yeast infection Start:17-Aug-2013 Instruction Type:Provider Instructions for Treatment Patient Instructions Indication:Impaired Fasting Glucose Start:06-Aug-2013 Instruction Type:Provider Instructions for Treatment Patient Instructions Indication:Diverticulitis Start:30-Jun-2013 Instruction Type:Provider Instructions for Treatment [facility]; [facility] Work Phone: Instructions* Name Dates Details Patient Instructions Indication:UTI symptoms Start:24-Dec-2022 Instruction Type:Provider Instructions for Treatment How to Access Health Informa tion Online using Patient Portal and [employer] Apps Indication:UTI symptoms Start:24-Dec-2022 Instruction Type:Patient Education Patient Instructions Indication:Nonsmoker Start:07-Nov-2022 Instruction Type:Provider Instructions for Treatment How to Access Health Informa tion Online using Patient Portal and [employer] Apps Indication:Nonsmoker Start:07-Nov-2022 Instruction Type:Patient Education Patient Instructions Indication:UTI symptoms Start:24-Sep-2022 Instruction Type:Provider Instructions for Treatment How to Access Health Informa tion Online using Patient Portal and [employer] Apps Indication:UTI symptoms Start:24-Sep-2022 Instruction Type:Patient Education Patient Instructions Indication:BMI 31.0-31.9,adult Start:11-Mar-2022 Instruction Type:Provider Instructions for Treatment How to Access Health Informa tion Online using Patient Portal and [employer] Apps Indication:BMI 31.0-31.9,adult Start:11-Mar-2022 Instruction Type:Patient Education Patient Instructions Indication:BMI 31.0-31.9,adult Start:11-Dec-2021 Instruction Type:Provider Instructions for Treatment How to Access Health Informa tion Online using Patient Portal and [employer] Apps Indication:BMI 31.0-31.9,adult Start:11-Dec-2021 Instruction Type:Patient Education Patient Instructions Indication:Hyperlipidemia Start:26-Sep-2021 Instruction Type:Provider Instructions for Treatment How to Access Health Informa tion Online using Patient Portal and [employer] Apps Indication:Impaired Fasting Glucose Start:26-Sep-2021 Instruction Type:Patient Education Patient Instructions Indication:BMI 31.0-31.9,adult Start:08-Jun-2021 Instruction Type:Provider Instructions for Treatment How to Access Health Informa tion Online using Patient Portal and [employer] Apps Indication:Impaired Fasting Glucose Start:08-Jun-2021 Instruction Type:Patient Education Patient Instructions Indication:Nonsmoker Start:19-Feb-2021 Instruction Type:Provider Instructions for Treatment How to Access Health Informa tion Online using Patient Portal and [employer] Apps Indication:Nonsmoker Start:19-Feb-2021 Instruction Type:Patient Education Patient Instructions Indication:BMI 32.0-32.9,adult Start:30-Jan-2021 Instruction Type:Provider Instructions for Treatment How to Access Health Informa tion Online using Patient Portal and [employer] Apps Indication:BMI 32.0-32.9,adult Start:30-Jan-2021 Instruction Type:Patient Education Patient Instructions Indication:BMI 32.0-32.9,adult Start:03-Jan-2021 Instruction Type:Provider Instructions for Treatment How to Access Health Informa tion Online using Patient Portal and [employer] Apps Indication:BMI 32.0-32.9,adult Start:03-Jan-2021 Instruction Type:Patient Education How to access health informa tion online Indication:Nonsmoker Start:23-Oct-2020 Instruction Type:Patient Education How to access health informa tion online - Detail Indication:Nonsmoker Start:23-Oct-2020 Instruction Type:Patient Education Patient Instructions Indication:Nonsmoker Start:23-Oct-2020 Instruction Type:Provider Instructions for Treatment How to access health informa tion online Indication:Nonsmoker Start:18-Sep-2020 Instruction Type:Patient Education How to access health informa tion online - Detail Indication:Nonsmoker Start:18-Sep-2020 Instruction Type:Patient Education Patient Instructions Indication:Nonsmoker Start:18-Sep-2020 Instruction Type:Provider Instructions for Treatment How to access health informa tion online Indication:Nonsmoker Start:21-Jun-2020 Instruction Type:Patient Education How to access health informa tion online - Detail Indication:Nonsmoker Start:21-Jun-2020 Instruction Type:Patient Education Patient Instructions Indication:BMI 31.0-31.9,adult Start:21-Jun-2020 Instruction Type:Provider Instructions for Treatment How to access health informa tion online Indication:Nonsmoker Start:01-Mar-2020 Instruction Type:Patient Education How to access health informa tion online - Detail Indication:Nonsmoker Start:01-Mar-2020 Instruction Type:Patient Education Patient Instructions Indication:Nonsmoker Start:01-Mar-2020 Instruction Type:Provider Instructions for Treatment How to access health informa tion online Indication:BMI 32.0-32.9,adult Start:28-Feb-2020 Instruction Type:Patient Education How to access health informa tion online - Detail Indication:BMI 32.0-32.9,adult Start:28-Feb-2020 Instruction Type:Patient Education Patient Instructions Indication:BMI 32.0-32.9,adult Start:28-Feb-2020 Instruction Type:Provider Instructions for Treatment How to access health informa tion online Indication:Urinary frequency Start:14-Oct-2019 Instruction Type:Patient Education How to access health informa tion online - Detail Indication:Urinary frequency Start:14-Oct-2019 Instruction Type:Patient Education Patient Instructions Indication:Urinary frequency Start:14-Oct-2019 Instruction Type:Provider Instructions for Treatment How to access health informa tion online Indication:Urinary frequency Start:02-Dec-2018 Instruction Type:Patient Education How to access health informa tion online - Detail Indication:Urinary frequency Start:02-Dec-2018 Instruction Type:Patient Education Patient Instructions Indication:Urinary frequency Start:02-Dec-2018 Instruction Type:Provider Instructions for Treatment How to access health informa tion online Indication:Nonsmoker Start:27-Jul-2018 Instruction Type:Patient Education How to access health informa tion online - Detail Indication:Nonsmoker Start:27-Jul-2018 Instruction Type:Patient Education Patient Instructions Indication:Nonsmoker Start:27-Jul-2018 Instruction Type:Provider Instructions for Treatment How to access health informa tion online Indication:BMI 32.0-32.9,adult Start:16-Oct-2017 Instruction Type:Patient Education How to access health informa tion online - Detail Indication:BMI 32.0-32.9,adult Start:16-Oct-2017 Instruction Type:Patient Education Patient Instructions Indication:UTI (urinary tract infection) Start:16-Oct-2017 Instruction Type:Provider Instructions for Treatment DISCONTINUED - METABOLIC ESPITIA EL, COMPREHENSIVE (64124) Indication:Renal Insufficiency (Renamed from Impaired renal function) Start:18-Jul-2017 Instruction Type:Patient Education DISCONTINUED - [id number] ([id number]) Indication:Fatty liver Start:18-Jul-2017 Instruction Type:Patient Education DISCONTINUED - PTT (Activate d Partial Thromboplastin Time) ([id number]) Indication:Fatty liver Start:18-Jul-2017 Instruction Type:Patient Education DISCONTINUED - PT (PROTHROMB IN TIME) ([id number]) Indication:Fatty liver Start:18-Jul-2017 Instruction Type:Patient Education DISCONTINUED - LIPID PANEL ( [id number]) Indication:Hyperlipidemia Start:18-Jul-2017 Instruction Type:Patient Education How to access health informa tion online Indication:Dysuria Start:18-Jul-2017 Instruction Type:Patient Education How to access health informa tion online - Detail Indication:Dysuria Start:18-Jul-2017 Instruction Type:Patient Education Patient Instructions Indication:Dysuria Start:18-Jul-2017 Instruction Type:Provider Instructions for Treatment How to access health informa tion online Indication:UTI symptoms Start:16-Dec-2016 Instruction Type:Patient Education How to access health informa tion online - Detail Indication:UTI symptoms Start:16-Dec-2016 Instruction Type:Patient Education Patient Instructions Indication:UTI symptoms Start:16-Dec-2016 Instruction Type:Provider Instructions for Treatment How to access health informa tion online Indication:UTI symptoms Start:23-Sep-2016 Instruction Type:Patient Education How to access health informa tion online - Detail Indication:UTI symptoms Start:23-Sep-2016 Instruction Type:Patient Education Patient Instructions Indication:UTI symptoms Start:23-Sep-2016 Instruction Type:Provider Instructions for Treatment How to access health informa tion online Indication:Impaired Fasting Glucose Start:06-Aug-2016 Instruction Type:Patient Education How to access health informa tion online - Detail Indication:Impaired Fasting Glucose Start:06-Aug-2016 Instruction Type:Patient Education Patient Instructions Indication:Impaired Fasting Glucose Start:06-Aug-2016 Instruction Type:Provider Instructions for Treatment How to access health informa tion online Indication:UTI symptoms Start:02-May-2016 Instruction Type:Patient Education How to access health informa tion online - Detail Indication:UTI symptoms Start:02-May-2016 Instruction Type:Patient Education Patient Instructions Indication:UTI symptoms Start:02-May-2016 Instruction Type:Provider Instructions for Treatment How to access health informa tion online Indication:UTI symptoms Start:19-Apr-2016 Instruction Type:Patient Education How to access health informa tion online - Detail Indication:UTI symptoms Start:19-Apr-2016 Instruction Type:Patient Education Patient Instructions Indication:UTI symptoms Start:19-Apr-2016 Instruction Type:Provider Instructions for Treatment How to access health informa tion online Indication:Sorethroat Start:14-Mar-2016 Instruction Type:Patient Education How to access health informa tion online - Detail Indication:Sorethroat Start:14-Mar-2016 Instruction Type:Patient Education Patient Instructions Indication:Sorethroat Start:14-Mar-2016 Instruction Type:Provider Instructions for Treatment How to access health informa tion online Indication:Impaired Fasting Glucose Start:11-Mar-2016 Instruction Type:Patient Education How to access health informa tion online - Detail Indication:Impaired Fasting Glucose Start:11-Mar-2016 Instruction Type:Patient Education Patient Instructions Indication:Impaired Fasting Glucose Start:11-Mar-2016 Instruction Type:Provider Instructions for Treatment How to access health informa tion online Indication:Impaired Fasting Glucose Start:09-Oct-2015 Instruction Type:Patient Education How to access health informa tion online - Detail Indication:Impaired Fasting Glucose Start:09-Oct-2015 Instruction Type:Patient Education Patient Instructions Indication:Impaired Fasting Glucose Start:09-Oct-2015 Instruction Type:Provider Instructions for Treatment Patient Instructions Indication:Impaired Fasting Glucose Start:21-Jun-2015 Instruction Type:Provider Instructions for Treatment How to access health informa tion online Indication:Poison debi Start:31-May-2015 Instruction Type:Patient Education How to access health informa tion online - Detail Indication:Poison debi Start:31-May-2015 Instruction Type:Patient Education Patient Instructions Indication:Poison debi Start:31-May-2015 Instruction Type:Provider Instructions for Treatment Patient Instructions Indication:Impaired Fasting Glucose Start:15-Feb-2015 Instruction Type:Provider Instructions for Treatment How to access health informa tion online Indication:Impaired Fasting Glucose Start:19-Oct-2014 Instruction Type:Patient Education How to access health informa tion online - Detail Indication:Impaired Fasting Glucose Start:19-Oct-2014 Instruction Type:Patient Education Patient Instructions Indication:Impaired Fasting Glucose Start:19-Oct-2014 Instruction Type:Provider Instructions for Treatment How to access health informa tion online Indication:Impaired Fasting Glucose Start:20-Jul-2014 Instruction Type:Patient Education How to access health informa tion online - Detail Indication:Impaired Fasting Glucose Start:20-Jul-2014 Instruction Type:Patient Education Patient Instructions Indication:Impaired Fasting Glucose Start:20-Jul-2014 Instruction Type:Provider Instructions for Treatment Patient Instructions Indication:Encounter for Medicare annual wellness exam Start:04-May-2014 Instruction Type:Provider Instructions for Treatment Patient Instructions Indication:Impaired Fasting Glucose Start:16-Mar-2014 Instruction Type:Provider Instructions for Treatment Patient Instructions Indication:Impaired Fasting Glucose Start:09-Nov-2013 Instruction Type:Provider Instructions for Treatment Patient Instructions Indication:Vaginal yeast infection Start:17-Aug-2013 Instruction Type:Provider Instructions for Treatment Patient Instructions Indication:Impaired Fasting Glucose Start:06-Aug-2013 Instruction Type:Provider Instructions for Treatment Patient Instructions Indication:Diverticulitis Start:30-Jun-2013 Instruction Type:Provider Instructions for Treatment [facility]; [facility] Work Phone: Instructions* Name Dates Details Patient Instructions Indication:Nonsmoker Start:17-Mar-2023 Instruction Type:Provider Instructions for Treatment How to Access Health Informa tion Online using Patient Portal and [employer] Apps Indication:Nonsmoker Start:17-Mar-2023 Instruction Type:Patient Education Patient Instructions Indication:UTI symptoms Start:24-Dec-2022 Instruction Type:Provider Instructions for Treatment How to Access Health Informa tion Online using Patient Portal and [employer] Apps Indication:UTI symptoms Start:24-Dec-2022 Instruction Type:Patient Education Patient Instructions Indication:Nonsmoker Start:07-Nov-2022 Instruction Type:Provider Instructions for Treatment How to Access Health Informa tion Online using Patient Portal and [employer] Apps Indication:Nonsmoker Start:07-Nov-2022 Instruction Type:Patient Education Patient Instructions Indication:UTI symptoms Start:24-Sep-2022 Instruction Type:Provider Instructions for Treatment How to Access Health Informa tion Online using Patient Portal and [employer] Apps Indication:UTI symptoms Start:24-Sep-2022 Instruction Type:Patient Education Patient Instructions Indication:BMI 31.0-31.9,adult Start:11-Mar-2022 Instruction Type:Provider Instructions for Treatment How to Access Health Informa tion Online using Patient Portal and [employer] Apps Indication:BMI 31.0-31.9,adult Start:11-Mar-2022 Instruction Type:Patient Education Patient Instructions Indication:BMI 31.0-31.9,adult Start:11-Dec-2021 Instruction Type:Provider Instructions for Treatment How to Access Health Informa tion Online using Patient Portal and [employer] Apps Indication:BMI 31.0-31.9,adult Start:11-Dec-2021 Instruction Type:Patient Education Patient Instructions Indication:Hyperlipidemia Start:26-Sep-2021 Instruction Type:Provider Instructions for Treatment How to Access Health Informa tion Online using Patient Portal and [employer] Apps Indication:Impaired Fasting Glucose Start:26-Sep-2021 Instruction Type:Patient Education Patient Instructions Indication:BMI 31.0-31.9,adult Start:08-Jun-2021 Instruction Type:Provider Instructions for Treatment How to Access Health Informa tion Online using Patient Portal and [employer] Apps Indication:Impaired Fasting Glucose Start:08-Jun-2021 Instruction Type:Patient Education Patient Instructions Indication:Nonsmoker Start:19-Feb-2021 Instruction Type:Provider Instructions for Treatment How to Access Health Informa tion Online using Patient Portal and [employer] Apps Indication:Nonsmoker Start:19-Feb-2021 Instruction Type:Patient Education Patient Instructions Indication:BMI 32.0-32.9,adult Start:30-Jan-2021 Instruction Type:Provider Instructions for Treatment How to Access Health Informa tion Online using Patient Portal and [employer] Apps Indication:BMI 32.0-32.9,adult Start:30-Jan-2021 Instruction Type:Patient Education Patient Instructions Indication:BMI 32.0-32.9,adult Start:03-Jan-2021 Instruction Type:Provider Instructions for Treatment How to Access Health Informa tion Online using Patient Portal and [employer] Apps Indication:BMI 32.0-32.9,adult Start:03-Jan-2021 Instruction Type:Patient Education How to access health informa tion online Indication:Nonsmoker Start:23-Oct-2020 Instruction Type:Patient Education How to access health informa tion online - Detail Indication:Nonsmoker Start:23-Oct-2020 Instruction Type:Patient Education Patient Instructions Indication:Nonsmoker Start:23-Oct-2020 Instruction Type:Provider Instructions for Treatment How to access health informa tion online Indication:Nonsmoker Start:18-Sep-2020 Instruction Type:Patient Education How to access health informa tion online - Detail Indication:Nonsmoker Start:18-Sep-2020 Instruction Type:Patient Education Patient Instructions Indication:Nonsmoker Start:18-Sep-2020 Instruction Type:Provider Instructions for Treatment How to access health informa tion online Indication:Nonsmoker Start:21-Jun-2020 Instruction Type:Patient Education How to access health informa tion online - Detail Indication:Nonsmoker Start:21-Jun-2020 Instruction Type:Patient Education Patient Instructions Indication:BMI 31.0-31.9,adult Start:21-Jun-2020 Instruction Type:Provider Instructions for Treatment How to access health informa tion online Indication:Nonsmoker Start:01-Mar-2020 Instruction Type:Patient Education How to access health informa tion online - Detail Indication:Nonsmoker Start:01-Mar-2020 Instruction Type:Patient Education Patient Instructions Indication:Nonsmoker Start:01-Mar-2020 Instruction Type:Provider Instructions for Treatment How to access health informa tion online Indication:BMI 32.0-32.9,adult Start:28-Feb-2020 Instruction Type:Patient Education How to access health informa tion online - Detail Indication:BMI 32.0-32.9,adult Start:28-Feb-2020 Instruction Type:Patient Education Patient Instructions Indication:BMI 32.0-32.9,adult Start:28-Feb-2020 Instruction Type:Provider Instructions for Treatment How to access health informa tion online Indication:Urinary frequency Start:14-Oct-2019 Instruction Type:Patient Education How to access health informa tion online - Detail Indication:Urinary frequency Start:14-Oct-2019 Instruction Type:Patient Education Patient Instructions Indication:Urinary frequency Start:14-Oct-2019 Instruction Type:Provider Instructions for Treatment How to access health informa tion online Indication:Urinary frequency Start:02-Dec-2018 Instruction Type:Patient Education How to access health informa tion online - Detail Indication:Urinary frequency Start:02-Dec-2018 Instruction Type:Patient Education Patient Instructions Indication:Urinary frequency Start:02-Dec-2018 Instruction Type:Provider Instructions for Treatment How to access health informa tion online Indication:Nonsmoker Start:27-Jul-2018 Instruction Type:Patient Education How to access health informa tion online - Detail Indication:Nonsmoker Start:27-Jul-2018 Instruction Type:Patient Education Patient Instructions Indication:Nonsmoker Start:27-Jul-2018 Instruction Type:Provider Instructions for Treatment How to access health informa tion online Indication:BMI 32.0-32.9,adult Start:16-Oct-2017 Instruction Type:Patient Education How to access health informa tion online - Detail Indication:BMI 32.0-32.9,adult Start:16-Oct-2017 Instruction Type:Patient Education Patient Instructions Indication:UTI (urinary tract infection) Start:16-Oct-2017 Instruction Type:Provider Instructions for Treatment DISCONTINUED - METABOLIC ESPITIA EL, COMPREHENSIVE (52257) Indication:Renal Insufficiency (Renamed from Impaired renal function) Start:18-Jul-2017 Instruction Type:Patient Education DISCONTINUED - [id number] ([id number]) Indication:Fatty liver Start:18-Jul-2017 Instruction Type:Patient Education DISCONTINUED - PTT (Activate d Partial Thromboplastin Time) ([id number]) Indication:Fatty liver Start:18-Jul-2017 Instruction Type:Patient Education DISCONTINUED - PT (PROTHROMB IN TIME) ([id number]) Indication:Fatty liver Start:18-Jul-2017 Instruction Type:Patient Education DISCONTINUED - LIPID PANEL ( [id number]) Indication:Hyperlipidemia Start:18-Jul-2017 Instruction Type:Patient Education How to access health informa tion online Indication:Dysuria Start:18-Jul-2017 Instruction Type:Patient Education How to access health informa tion online - Detail Indication:Dysuria Start:18-Jul-2017 Instruction Type:Patient Education Patient Instructions Indication:Dysuria Start:18-Jul-2017 Instruction Type:Provider Instructions for Treatment How to access health informa tion online Indication:UTI symptoms Start:16-Dec-2016 Instruction Type:Patient Education How to access health informa tion online - Detail Indication:UTI symptoms Start:16-Dec-2016 Instruction Type:Patient Education Patient Instructions Indication:UTI symptoms Start:16-Dec-2016 Instruction Type:Provider Instructions for Treatment How to access health informa tion online Indication:UTI symptoms Start:23-Sep-2016 Instruction Type:Patient Education How to access health informa tion online - Detail Indication:UTI symptoms Start:23-Sep-2016 Instruction Type:Patient Education Patient Instructions Indication:UTI symptoms Start:23-Sep-2016 Instruction Type:Provider Instructions for Treatment How to access health informa tion online Indication:Impaired Fasting Glucose Start:06-Aug-2016 Instruction Type:Patient Education How to access health informa tion online - Detail Indication:Impaired Fasting Glucose Start:06-Aug-2016 Instruction Type:Patient Education Patient Instructions Indication:Impaired Fasting Glucose Start:06-Aug-2016 Instruction Type:Provider Instructions for Treatment How to access health informa tion online Indication:UTI symptoms Start:02-May-2016 Instruction Type:Patient Education How to access health informa tion online - Detail Indication:UTI symptoms Start:02-May-2016 Instruction Type:Patient Education Patient Instructions Indication:UTI symptoms Start:02-May-2016 Instruction Type:Provider Instructions for Treatment How to access health informa tion online Indication:UTI symptoms Start:19-Apr-2016 Instruction Type:Patient Education How to access health informa tion online - Detail Indication:UTI symptoms Start:19-Apr-2016 Instruction Type:Patient Education Patient Instructions Indication:UTI symptoms Start:19-Apr-2016 Instruction Type:Provider Instructions for Treatment How to access health informa tion online Indication:Sorethroat Start:14-Mar-2016 Instruction Type:Patient Education How to access health informa tion online - Detail Indication:Sorethroat Start:14-Mar-2016 Instruction Type:Patient Education Patient Instructions Indication:Sorethroat Start:14-Mar-2016 Instruction Type:Provider Instructions for Treatment How to access health informa tion online Indication:Impaired Fasting Glucose Start:11-Mar-2016 Instruction Type:Patient Education How to access health informa tion online - Detail Indication:Impaired Fasting Glucose Start:11-Mar-2016 Instruction Type:Patient Education Patient Instructions Indication:Impaired Fasting Glucose Start:11-Mar-2016 Instruction Type:Provider Instructions for Treatment How to access health informa tion online Indication:Impaired Fasting Glucose Start:09-Oct-2015 Instruction Type:Patient Education How to access health informa tion online - Detail Indication:Impaired Fasting Glucose Start:09-Oct-2015 Instruction Type:Patient Education Patient Instructions Indication:Impaired Fasting Glucose Start:09-Oct-2015 Instruction Type:Provider Instructions for Treatment Patient Instructions Indication:Impaired Fasting Glucose Start:21-Jun-2015 Instruction Type:Provider Instructions for Treatment How to access health informa tion online Indication:Poison debi Start:31-May-2015 Instruction Type:Patient Education How to access health informa tion online - Detail Indication:Poison debi Start:31-May-2015 Instruction Type:Patient Education Patient Instructions Indication:Poison debi Start:31-May-2015 Instruction Type:Provider Instructions for Treatment Patient Instructions Indication:Impaired Fasting Glucose Start:15-Feb-2015 Instruction Type:Provider Instructions for Treatment How to access health informa tion online Indication:Impaired Fasting Glucose Start:19-Oct-2014 Instruction Type:Patient Education How to access health informa tion online - Detail Indication:Impaired Fasting Glucose Start:19-Oct-2014 Instruction Type:Patient Education Patient Instructions Indication:Impaired Fasting Glucose Start:19-Oct-2014 Instruction Type:Provider Instructions for Treatment How to access health informa tion online Indication:Impaired Fasting Glucose Start:20-Jul-2014 Instruction Type:Patient Education How to access health informa tion online - Detail Indication:Impaired Fasting Glucose Start:20-Jul-2014 Instruction Type:Patient Education Patient Instructions Indication:Impaired Fasting Glucose Start:20-Jul-2014 Instruction Type:Provider Instructions for Treatment Patient Instructions Indication:Encounter for Medicare annual wellness exam Start:04-May-2014 Instruction Type:Provider Instructions for Treatment Patient Instructions Indication:Impaired Fasting Glucose Start:16-Mar-2014 Instruction Type:Provider Instructions for Treatment Patient Instructions Indication:Impaired Fasting Glucose Start:09-Nov-2013 Instruction Type:Provider Instructions for Treatment Patient Instructions Indication:Vaginal yeast infection Start:17-Aug-2013 Instruction Type:Provider Instructions for Treatment Patient Instructions Indication:Impaired Fasting Glucose Start:06-Aug-2013 Instruction Type:Provider Instructions for Treatment Patient Instructions Indication:Diverticulitis Start:30-Jun-2013 Instruction Type:Provider Instructions for Treatment [facility]; [facility] Work Phone: Instructions* Name Dates Details Patient Instructions Indication:Nonsmoker Start:15-May-2023 Instruction Type:Provider Instructions for Treatment How to Access Health Informa tion Online using Patient Portal and [employer] Indication:Nonsmoker Start:15-May-2023 Instruction Type:Patient Education Patient Instructions Indication:Nonsmoker Start:17-Mar-2023 Instruction Type:Provider Instructions for Treatment How to Access Health Informa tion Online using Patient Portal and [employer] Indication:Nonsmoker Start:17-Mar-2023 Instruction Type:Patient Education Patient Instructions Indication:UTI symptoms Start:24-Dec-2022 Instruction Type:Provider Instructions for Treatment How to Access Health Informa tion Online using Patient Portal and [employer] Indication:UTI symptoms Start:24-Dec-2022 Instruction Type:Patient Education Patient Instructions Indication:Nonsmoker Start:07-Nov-2022 Instruction Type:Provider Instructions for Treatment How to Access Health Informa tion Online using Patient Portal and [employer] Indication:Nonsmoker Start:07-Nov-2022 Instruction Type:Patient Education Patient Instructions Indication:UTI symptoms Start:24-Sep-2022 Instruction Type:Provider Instructions for Treatment How to Access Health Informa tion Online using Patient Portal and [employer] Indication:UTI symptoms Start:24-Sep-2022 Instruction Type:Patient Education Patient Instructions Indication:BMI 31.0-31.9,adult Start:11-Mar-2022 Instruction Type:Provider Instructions for Treatment How to Access Health Informa tion Online using Patient Portal and [employer] Indication:BMI 31.0-31.9,adult Start:11-Mar-2022 Instruction Type:Patient Education Patient Instructions Indication:BMI 31.0-31.9,adult Start:11-Dec-2021 Instruction Type:Provider Instructions for Treatment How to Access Health Informa tion Online using Patient Portal and [employer] Indication:BMI 31.0-31.9,adult Start:11-Dec-2021 Instruction Type:Patient Education Patient Instructions Indication:Hyperlipidemia Start:26-Sep-2021 Instruction Type:Provider Instructions for Treatment How to Access Health Informa tion Online using Patient Portal and [employer] Indication:Impaired Fasting Glucose Start:26-Sep-2021 Instruction Type:Patient Education Patient Instructions Indication:BMI 31.0-31.9,adult Start:08-Jun-2021 Instruction Type:Provider Instructions for Treatment How to Access Health Informa tion Online using Patient Portal and [employer] Indication:Impaired Fasting Glucose Start:08-Jun-2021 Instruction Type:Patient Education Patient Instructions Indication:Nonsmoker Start:19-Feb-2021 Instruction Type:Provider Instructions for Treatment How to Access Health Informa tion Online using Patient Portal and [employer] Indication:Nonsmoker Start:19-Feb-2021 Instruction Type:Patient Education Patient Instructions Indication:BMI 32.0-32.9,adult Start:30-Jan-2021 Instruction Type:Provider Instructions for Treatment How to Access Health Informa tion Online using Patient Portal and [employer] Indication:BMI 32.0-32.9,adult Start:30-Jan-2021 Instruction Type:Patient Education Patient Instructions Indication:BMI 32.0-32.9,adult Start:03-Jan-2021 Instruction Type:Provider Instructions for Treatment How to Access Health Informa tion Online using Patient Portal and [employer] Apps Indication:BMI 32.0-32.9,adult Start:03-Jan-2021 Instruction Type:Patient Education How to access health informa tion online Indication:Nonsmoker Start:23-Oct-2020 Instruction Type:Patient Education How to access health informa tion online - Detail Indication:Nonsmoker Start:23-Oct-2020 Instruction Type:Patient Education Patient Instructions Indication:Nonsmoker Start:23-Oct-2020 Instruction Type:Provider Instructions for Treatment How to access health informa tion online Indication:Nonsmoker Start:18-Sep-2020 Instruction Type:Patient Education How to access health informa tion online - Detail Indication:Nonsmoker Start:18-Sep-2020 Instruction Type:Patient Education Patient Instructions Indication:Nonsmoker Start:18-Sep-2020 Instruction Type:Provider Instructions for Treatment How to access health informa tion online Indication:Nonsmoker Start:21-Jun-2020 Instruction Type:Patient Education How to access health informa tion online - Detail Indication:Nonsmoker Start:21-Jun-2020 Instruction Type:Patient Education Patient Instructions Indication:BMI 31.0-31.9,adult Start:21-Jun-2020 Instruction Type:Provider Instructions for Treatment How to access health informa tion online Indication:Nonsmoker Start:01-Mar-2020 Instruction Type:Patient Education How to access health informa tion online - Detail Indication:Nonsmoker Start:01-Mar-2020 Instruction Type:Patient Education Patient Instructions Indication:Nonsmoker Start:01-Mar-2020 Instruction Type:Provider Instructions for Treatment How to access health informa tion online Indication:BMI 32.0-32.9,adult Start:28-Feb-2020 Instruction Type:Patient Education How to access health informa tion online - Detail Indication:BMI 32.0-32.9,adult Start:28-Feb-2020 Instruction Type:Patient Education Patient Instructions Indication:BMI 32.0-32.9,adult Start:28-Feb-2020 Instruction Type:Provider Instructions for Treatment How to access health informa tion online Indication:Urinary frequency Start:14-Oct-2019 Instruction Type:Patient Education How to access health informa tion online - Detail Indication:Urinary frequency Start:14-Oct-2019 Instruction Type:Patient Education Patient Instructions Indication:Urinary frequency Start:14-Oct-2019 Instruction Type:Provider Instructions for Treatment How to access health informa tion online Indication:Urinary frequency Start:02-Dec-2018 Instruction Type:Patient Education How to access health informa tion online - Detail Indication:Urinary frequency Start:02-Dec-2018 Instruction Type:Patient Education Patient Instructions Indication:Urinary frequency Start:02-Dec-2018 Instruction Type:Provider Instructions for Treatment How to access health informa tion online Indication:Nonsmoker Start:27-Jul-2018 Instruction Type:Patient Education How to access health informa tion online - Detail Indication:Nonsmoker Start:27-Jul-2018 Instruction Type:Patient Education Patient Instructions Indication:Nonsmoker Start:27-Jul-2018 Instruction Type:Provider Instructions for Treatment How to access health informa tion online Indication:BMI 32.0-32.9,adult Start:16-Oct-2017 Instruction Type:Patient Education How to access health informa tion online - Detail Indication:BMI 32.0-32.9,adult Start:16-Oct-2017 Instruction Type:Patient Education Patient Instructions Indication:UTI (urinary tract infection) Start:16-Oct-2017 Instruction Type:Provider Instructions for Treatment DISCONTINUED - METABOLIC ESPITIA EL, COMPREHENSIVE (93555) Indication:Renal Insufficiency (Renamed from Impaired renal function) Start:18-Jul-2017 Instruction Type:Patient Education DISCONTINUED - [id number] ([id number]) Indication:Fatty liver Start:18-Jul-2017 Instruction Type:Patient Education DISCONTINUED - PTT (Activate d Partial Thromboplastin Time) ([id number]) Indication:Fatty liver Start:18-Jul-2017 Instruction Type:Patient Education DISCONTINUED - PT (PROTHROMB IN TIME) ([id number]) Indication:Fatty liver Start:18-Jul-2017 Instruction Type:Patient Education DISCONTINUED - LIPID PANEL ( [id number]) Indication:Hyperlipidemia Start:18-Jul-2017 Instruction Type:Patient Education How to access health informa tion online Indication:Dysuria Start:18-Jul-2017 Instruction Type:Patient Education How to access health informa tion online - Detail Indication:Dysuria Start:18-Jul-2017 Instruction Type:Patient Education Patient Instructions Indication:Dysuria Start:18-Jul-2017 Instruction Type:Provider Instructions for Treatment How to access health informa tion online Indication:UTI symptoms Start:16-Dec-2016 Instruction Type:Patient Education How to access health informa tion online - Detail Indication:UTI symptoms Start:16-Dec-2016 Instruction Type:Patient Education Patient Instructions Indication:UTI symptoms Start:16-Dec-2016 Instruction Type:Provider Instructions for Treatment How to access health informa tion online Indication:UTI symptoms Start:23-Sep-2016 Instruction Type:Patient Education How to access health informa tion online - Detail Indication:UTI symptoms Start:23-Sep-2016 Instruction Type:Patient Education Patient Instructions Indication:UTI symptoms Start:23-Sep-2016 Instruction Type:Provider Instructions for Treatment How to access health informa tion online Indication:Impaired Fasting Glucose Start:06-Aug-2016 Instruction Type:Patient Education How to access health informa tion online - Detail Indication:Impaired Fasting Glucose Start:06-Aug-2016 Instruction Type:Patient Education Patient Instructions Indication:Impaired Fasting Glucose Start:06-Aug-2016 Instruction Type:Provider Instructions for Treatment How to access health informa tion online Indication:UTI symptoms Start:02-May-2016 Instruction Type:Patient Education How to access health informa tion online - Detail Indication:UTI symptoms Start:02-May-2016 Instruction Type:Patient Education Patient Instructions Indication:UTI symptoms Start:02-May-2016 Instruction Type:Provider Instructions for Treatment How to access health informa tion online Indication:UTI symptoms Start:19-Apr-2016 Instruction Type:Patient Education How to access health informa tion online - Detail Indication:UTI symptoms Start:19-Apr-2016 Instruction Type:Patient Education Patient Instructions Indication:UTI symptoms Start:19-Apr-2016 Instruction Type:Provider Instructions for Treatment How to access health informa tion online Indication:Sorethroat Start:14-Mar-2016 Instruction Type:Patient Education How to access health informa tion online - Detail Indication:Sorethroat Start:14-Mar-2016 Instruction Type:Patient Education Patient Instructions Indication:Sorethroat Start:14-Mar-2016 Instruction Type:Provider Instructions for Treatment How to access health informa tion online Indication:Impaired Fasting Glucose Start:11-Mar-2016 Instruction Type:Patient Education How to access health informa tion online - Detail Indication:Impaired Fasting Glucose Start:11-Mar-2016 Instruction Type:Patient Education Patient Instructions Indication:Impaired Fasting Glucose Start:11-Mar-2016 Instruction Type:Provider Instructions for Treatment How to access health informa tion online Indication:Impaired Fasting Glucose Start:09-Oct-2015 Instruction Type:Patient Education How to access health informa tion online - Detail Indication:Impaired Fasting Glucose Start:09-Oct-2015 Instruction Type:Patient Education Patient Instructions Indication:Impaired Fasting Glucose Start:09-Oct-2015 Instruction Type:Provider Instructions for Treatment Patient Instructions Indication:Impaired Fasting Glucose Start:21-Jun-2015 Instruction Type:Provider Instructions for Treatment How to access health informa tion online Indication:Poison debi Start:31-May-2015 Instruction Type:Patient Education How to access health informa tion online - Detail Indication:Poison debi Start:31-May-2015 Instruction Type:Patient Education Patient Instructions Indication:Poison debi Start:31-May-2015 Instruction Type:Provider Instructions for Treatment Patient Instructions Indication:Impaired Fasting Glucose Start:15-Feb-2015 Instruction Type:Provider Instructions for Treatment How to access health informa tion online Indication:Impaired Fasting Glucose Start:19-Oct-2014 Instruction Type:Patient Education How to access health informa tion online - Detail Indication:Impaired Fasting Glucose Start:19-Oct-2014 Instruction Type:Patient Education Patient Instructions Indication:Impaired Fasting Glucose Start:19-Oct-2014 Instruction Type:Provider Instructions for Treatment How to access health informa tion online Indication:Impaired Fasting Glucose Start:20-Jul-2014 Instruction Type:Patient Education How to access health informa tion online - Detail Indication:Impaired Fasting Glucose Start:20-Jul-2014 Instruction Type:Patient Education Patient Instructions Indication:Impaired Fasting Glucose Start:20-Jul-2014 Instruction Type:Provider Instructions for Treatment Patient Instructions Indication:Encounter for Medicare annual wellness exam Start:04-May-2014 Instruction Type:Provider Instructions for Treatment Patient Instructions Indication:Impaired Fasting Glucose Start:16-Mar-2014 Instruction Type:Provider Instructions for Treatment Patient Instructions Indication:Impaired Fasting Glucose Start:09-Nov-2013 Instruction Type:Provider Instructions for Treatment Patient Instructions Indication:Vaginal yeast infection Start:17-Aug-2013 Instruction Type:Provider Instructions for Treatment Patient Instructions Indication:Impaired Fasting Glucose Start:06-Aug-2013 Instruction Type:Provider Instructions for Treatment Patient Instructions Indication:Diverticulitis Start:30-Jun-2013 Instruction Type:Provider Instructions for Treatment [facility]; [facility] Work Phone: Instructions* Name Dates Details Patient Instructions Indication:Nonsmoker Start:15-May-2023 Instruction Type:Provider Instructions for Treatment How to Access Health Informa tion Online using Patient Portal and [employer] Apps Indication:Nonsmoker Start:15-May-2023 Instruction Type:Patient Education Patient Instructions Indication:Nonsmoker Start:17-Mar-2023 Instruction Type:Provider Instructions for Treatment How to Access Health Informa tion Online using Patient Portal and [employer] Apps Indication:Nonsmoker Start:17-Mar-2023 Instruction Type:Patient Education Patient Instructions Indication:UTI symptoms Start:24-Dec-2022 Instruction Type:Provider Instructions for Treatment How to Access Health Informa tion Online using Patient Portal and [employer] Apps Indication:UTI symptoms Start:24-Dec-2022 Instruction Type:Patient Education Patient Instructions Indication:Nonsmoker Start:07-Nov-2022 Instruction Type:Provider Instructions for Treatment How to Access Health Informa tion Online using Patient Portal and [employer] Apps Indication:Nonsmoker Start:07-Nov-2022 Instruction Type:Patient Education Patient Instructions Indication:UTI symptoms Start:24-Sep-2022 Instruction Type:Provider Instructions for Treatment How to Access Health Informa tion Online using Patient Portal and [employer] Apps Indication:UTI symptoms Start:24-Sep-2022 Instruction Type:Patient Education Patient Instructions Indication:BMI 31.0-31.9,adult Start:11-Mar-2022 Instruction Type:Provider Instructions for Treatment How to Access Health Informa tion Online using Patient Portal and [employer] Apps Indication:BMI 31.0-31.9,adult Start:11-Mar-2022 Instruction Type:Patient Education Patient Instructions Indication:BMI 31.0-31.9,adult Start:11-Dec-2021 Instruction Type:Provider Instructions for Treatment How to Access Health Informa tion Online using Patient Portal and [employer] Apps Indication:BMI 31.0-31.9,adult Start:11-Dec-2021 Instruction Type:Patient Education Patient Instructions Indication:Hyperlipidemia Start:26-Sep-2021 Instruction Type:Provider Instructions for Treatment How to Access Health Informa tion Online using Patient Portal and [employer] Apps Indication:Impaired Fasting Glucose Start:26-Sep-2021 Instruction Type:Patient Education Patient Instructions Indication:BMI 31.0-31.9,adult Start:08-Jun-2021 Instruction Type:Provider Instructions for Treatment How to Access Health Informa tion Online using Patient Portal and [employer] Apps Indication:Impaired Fasting Glucose Start:08-Jun-2021 Instruction Type:Patient Education Patient Instructions Indication:Nonsmoker Start:19-Feb-2021 Instruction Type:Provider Instructions for Treatment How to Access Health Informa tion Online using Patient Portal and [employer] Apps Indication:Nonsmoker Start:19-Feb-2021 Instruction Type:Patient Education Patient Instructions Indication:BMI 32.0-32.9,adult Start:30-Jan-2021 Instruction Type:Provider Instructions for Treatment How to Access Health Informa tion Online using Patient Portal and [employer] Apps Indication:BMI 32.0-32.9,adult Start:30-Jan-2021 Instruction Type:Patient Education Patient Instructions Indication:BMI 32.0-32.9,adult Start:03-Jan-2021 Instruction Type:Provider Instructions for Treatment How to Access Health Informa tion Online using Patient Portal and [employer] Apps Indication:BMI 32.0-32.9,adult Start:03-Jan-2021 Instruction Type:Patient Education How to access health informa tion online Indication:Nonsmoker Start:23-Oct-2020 Instruction Type:Patient Education How to access health informa tion online - Detail Indication:Nonsmoker Start:23-Oct-2020 Instruction Type:Patient Education Patient Instructions Indication:Nonsmoker Start:23-Oct-2020 Instruction Type:Provider Instructions for Treatment How to access health informa tion online Indication:Nonsmoker Start:18-Sep-2020 Instruction Type:Patient Education How to access health informa tion online - Detail Indication:Nonsmoker Start:18-Sep-2020 Instruction Type:Patient Education Patient Instructions Indication:Nonsmoker Start:18-Sep-2020 Instruction Type:Provider Instructions for Treatment How to access health informa tion online Indication:Nonsmoker Start:21-Jun-2020 Instruction Type:Patient Education How to access health informa tion online - Detail Indication:Nonsmoker Start:21-Jun-2020 Instruction Type:Patient Education Patient Instructions Indication:BMI 31.0-31.9,adult Start:21-Jun-2020 Instruction Type:Provider Instructions for Treatment How to access health informa tion online Indication:Nonsmoker Start:01-Mar-2020 Instruction Type:Patient Education How to access health informa tion online - Detail Indication:Nonsmoker Start:01-Mar-2020 Instruction Type:Patient Education Patient Instructions Indication:Nonsmoker Start:01-Mar-2020 Instruction Type:Provider Instructions for Treatment How to access health informa tion online Indication:BMI 32.0-32.9,adult Start:28-Feb-2020 Instruction Type:Patient Education How to access health informa tion online - Detail Indication:BMI 32.0-32.9,adult Start:28-Feb-2020 Instruction Type:Patient Education Patient Instructions Indication:BMI 32.0-32.9,adult Start:28-Feb-2020 Instruction Type:Provider Instructions for Treatment How to access health informa tion online Indication:Urinary frequency Start:14-Oct-2019 Instruction Type:Patient Education How to access health informa tion online - Detail Indication:Urinary frequency Start:14-Oct-2019 Instruction Type:Patient Education Patient Instructions Indication:Urinary frequency Start:14-Oct-2019 Instruction Type:Provider Instructions for Treatment How to access health informa tion online Indication:Urinary frequency Start:02-Dec-2018 Instruction Type:Patient Education How to access health informa tion online - Detail Indication:Urinary frequency Start:02-Dec-2018 Instruction Type:Patient Education Patient Instructions Indication:Urinary frequency Start:02-Dec-2018 Instruction Type:Provider Instructions for Treatment How to access health informa tion online Indication:Nonsmoker Start:27-Jul-2018 Instruction Type:Patient Education How to access health informa tion online - Detail Indication:Nonsmoker Start:27-Jul-2018 Instruction Type:Patient Education Patient Instructions Indication:Nonsmoker Start:27-Jul-2018 Instruction Type:Provider Instructions for Treatment How to access health informa tion online Indication:BMI 32.0-32.9,adult Start:16-Oct-2017 Instruction Type:Patient Education How to access health informa tion online - Detail Indication:BMI 32.0-32.9,adult Start:16-Oct-2017 Instruction Type:Patient Education Patient Instructions Indication:UTI (urinary tract infection) Start:16-Oct-2017 Instruction Type:Provider Instructions for Treatment DISCONTINUED - METABOLIC ESPITIA EL, COMPREHENSIVE ([id number]) Indication:Renal Insufficiency (Renamed from Impaired renal function) Start:18-Jul-2017 Instruction Type:Patient Education DISCONTINUED - [id number] ([id number]) Indication:Fatty liver Start:18-Jul-2017 Instruction Type:Patient Education DISCONTINUED - PTT (Activate d Partial Thromboplastin Time) ([id number]) Indication:Fatty liver Start:18-Jul-2017 Instruction Type:Patient Education DISCONTINUED - PT (PROTHROMB IN TIME) ([id number]) Indication:Fatty liver Start:18-Jul-2017 Instruction Type:Patient Education DISCONTINUED - LIPID PANEL ( [id number]) Indication:Hyperlipidemia Start:18-Jul-2017 Instruction Type:Patient Education How to access health informa tion online Indication:Dysuria Start:18-Jul-2017 Instruction Type:Patient Education How to access health informa tion online - Detail Indication:Dysuria Start:18-Jul-2017 Instruction Type:Patient Education Patient Instructions Indication:Dysuria Start:18-Jul-2017 Instruction Type:Provider Instructions for Treatment How to access health informa tion online Indication:UTI symptoms Start:16-Dec-2016 Instruction Type:Patient Education How to access health informa tion online - Detail Indication:UTI symptoms Start:16-Dec-2016 Instruction Type:Patient Education Patient Instructions Indication:UTI symptoms Start:16-Dec-2016 Instruction Type:Provider Instructions for Treatment How to access health informa tion online Indication:UTI symptoms Start:23-Sep-2016 Instruction Type:Patient Education How to access health informa tion online - Detail Indication:UTI symptoms Start:23-Sep-2016 Instruction Type:Patient Education Patient Instructions Indication:UTI symptoms Start:23-Sep-2016 Instruction Type:Provider Instructions for Treatment How to access health informa tion online Indication:Impaired Fasting Glucose Start:06-Aug-2016 Instruction Type:Patient Education How to access health informa tion online - Detail Indication:Impaired Fasting Glucose Start:06-Aug-2016 Instruction Type:Patient Education Patient Instructions Indication:Impaired Fasting Glucose Start:06-Aug-2016 Instruction Type:Provider Instructions for Treatment How to access health informa tion online Indication:UTI symptoms Start:02-May-2016 Instruction Type:Patient Education How to access health informa tion online - Detail Indication:UTI symptoms Start:02-May-2016 Instruction Type:Patient Education Patient Instructions Indication:UTI symptoms Start:02-May-2016 Instruction Type:Provider Instructions for Treatment How to access health informa tion online Indication:UTI symptoms Start:19-Apr-2016 Instruction Type:Patient Education How to access health informa tion online - Detail Indication:UTI symptoms Start:19-Apr-2016 Instruction Type:Patient Education Patient Instructions Indication:UTI symptoms Start:19-Apr-2016 Instruction Type:Provider Instructions for Treatment How to access health informa tion online Indication:Sorethroat Start:14-Mar-2016 Instruction Type:Patient Education How to access health informa tion online - Detail Indication:Sorethroat Start:14-Mar-2016 Instruction Type:Patient Education Patient Instructions Indication:Sorethroat Start:14-Mar-2016 Instruction Type:Provider Instructions for Treatment How to access health informa tion online Indication:Impaired Fasting Glucose Start:11-Mar-2016 Instruction Type:Patient Education How to access health informa tion online - Detail Indication:Impaired Fasting Glucose Start:11-Mar-2016 Instruction Type:Patient Education Patient Instructions Indication:Impaired Fasting Glucose Start:11-Mar-2016 Instruction Type:Provider Instructions for Treatment How to access health informa tion online Indication:Impaired Fasting Glucose Start:09-Oct-2015 Instruction Type:Patient Education How to access health informa tion online - Detail Indication:Impaired Fasting Glucose Start:09-Oct-2015 Instruction Type:Patient Education Patient Instructions Indication:Impaired Fasting Glucose Start:09-Oct-2015 Instruction Type:Provider Instructions for Treatment Patient Instructions Indication:Impaired Fasting Glucose Start:21-Jun-2015 Instruction Type:Provider Instructions for Treatment How to access health informa tion online Indication:Poison debi Start:31-May-2015 Instruction Type:Patient Education How to access health informa tion online - Detail Indication:Poison debi Start:31-May-2015 Instruction Type:Patient Education Patient Instructions Indication:Poison debi Start:31-May-2015 Instruction Type:Provider Instructions for Treatment Patient Instructions Indication:Impaired Fasting Glucose Start:15-Feb-2015 Instruction Type:Provider Instructions for Treatment How to access health informa tion online Indication:Impaired Fasting Glucose Start:19-Oct-2014 Instruction Type:Patient Education How to access health informa tion online - Detail Indication:Impaired Fasting Glucose Start:19-Oct-2014 Instruction Type:Patient Education Patient Instructions Indication:Impaired Fasting Glucose Start:19-Oct-2014 Instruction Type:Provider Instructions for Treatment How to access health informa tion online Indication:Impaired Fasting Glucose Start:20-Jul-2014 Instruction Type:Patient Education How to access health informa tion online - Detail Indication:Impaired Fasting Glucose Start:20-Jul-2014 Instruction Type:Patient Education Patient Instructions Indication:Impaired Fasting Glucose Start:20-Jul-2014 Instruction Type:Provider Instructions for Treatment Patient Instructions Indication:Encounter for Medicare annual wellness exam Start:04-May-2014 Instruction Type:Provider Instructions for Treatment Patient Instructions Indication:Impaired Fasting Glucose Start:16-Mar-2014 Instruction Type:Provider Instructions for Treatment Patient Instructions Indication:Impaired Fasting Glucose Start:09-Nov-2013 Instruction Type:Provider Instructions for Treatment Patient Instructions Indication:Vaginal yeast infection Start:17-Aug-2013 Instruction Type:Provider Instructions for Treatment Patient Instructions Indication:Impaired Fasting Glucose Start:06-Aug-2013 Instruction Type:Provider Instructions for Treatment Patient Instructions Indication:Diverticulitis Start:30-Jun-2013 Instruction Type:Provider Instructions for Treatment [facility]; [facility] Work Phone: Instructions* Name Dates Details Patient Instructions Indication:Nonsmoker Start:15-May-2023 Instruction Type:Provider Instructions for Treatment How to Access Health Informa tion Online using Patient Portal and [employer] Apps Indication:Nonsmoker Start:15-May-2023 Instruction Type:Patient Education Patient Instructions Indication:Nonsmoker Start:17-Mar-2023 Instruction Type:Provider Instructions for Treatment How to Access Health Informa tion Online using Patient Portal and [employer] Apps Indication:Nonsmoker Start:17-Mar-2023 Instruction Type:Patient Education Patient Instructions Indication:UTI symptoms Start:24-Dec-2022 Instruction Type:Provider Instructions for Treatment How to Access Health Informa tion Online using Patient Portal and [employer] Apps Indication:UTI symptoms Start:24-Dec-2022 Instruction Type:Patient Education Patient Instructions Indication:Nonsmoker Start:07-Nov-2022 Instruction Type:Provider Instructions for Treatment How to Access Health Informa tion Online using Patient Portal and [employer] Indication:Nonsmoker Start:07-Nov-2022 Instruction Type:Patient Education Patient Instructions Indication:UTI symptoms Start:24-Sep-2022 Instruction Type:Provider Instructions for Treatment How to Access Health Informa tion Online using Patient Portal and [employer] Indication:UTI symptoms Start:24-Sep-2022 Instruction Type:Patient Education Patient Instructions Indication:BMI 31.0-31.9,adult Start:11-Mar-2022 Instruction Type:Provider Instructions for Treatment How to Access Health Informa tion Online using Patient Portal and [employer] Indication:BMI 31.0-31.9,adult Start:11-Mar-2022 Instruction Type:Patient Education Patient Instructions Indication:BMI 31.0-31.9,adult Start:11-Dec-2021 Instruction Type:Provider Instructions for Treatment How to Access Health Informa tion Online using Patient Portal and [employer] Indication:BMI 31.0-31.9,adult Start:11-Dec-2021 Instruction Type:Patient Education Patient Instructions Indication:Hyperlipidemia Start:26-Sep-2021 Instruction Type:Provider Instructions for Treatment How to Access Health Informa tion Online using Patient Portal and [employer] Apps Indication:Impaired Fasting Glucose Start:26-Sep-2021 Instruction Type:Patient Education Patient Instructions Indication:BMI 31.0-31.9,adult Start:08-Jun-2021 Instruction Type:Provider Instructions for Treatment How to Access Health Informa tion Online using Patient Portal and [employer] Indication:Impaired Fasting Glucose Start:08-Jun-2021 Instruction Type:Patient Education Patient Instructions Indication:Nonsmoker Start:19-Feb-2021 Instruction Type:Provider Instructions for Treatment How to Access Health Informa tion Online using Patient Portal and [employer] Indication:Nonsmoker Start:19-Feb-2021 Instruction Type:Patient Education Patient Instructions Indication:BMI 32.0-32.9,adult Start:30-Jan-2021 Instruction Type:Provider Instructions for Treatment How to Access Health Informa tion Online using Patient Portal and [employer] Indication:BMI 32.0-32.9,adult Start:30-Jan-2021 Instruction Type:Patient Education Patient Instructions Indication:BMI 32.0-32.9,adult Start:03-Jan-2021 Instruction Type:Provider Instructions for Treatment How to Access Health Informa tion Online using Patient Portal and [employer] Indication:BMI 32.0-32.9,adult Start:03-Jan-2021 Instruction Type:Patient Education How to access health informa tion online Indication:Nonsmoker Start:23-Oct-2020 Instruction Type:Patient Education How to access health informa tion online - Detail Indication:Nonsmoker Start:23-Oct-2020 Instruction Type:Patient Education Patient Instructions Indication:Nonsmoker Start:23-Oct-2020 Instruction Type:Provider Instructions for Treatment How to access health informa tion online Indication:Nonsmoker Start:18-Sep-2020 Instruction Type:Patient Education How to access health informa tion online - Detail Indication:Nonsmoker Start:18-Sep-2020 Instruction Type:Patient Education Patient Instructions Indication:Nonsmoker Start:18-Sep-2020 Instruction Type:Provider Instructions for Treatment How to access health informa tion online Indication:Nonsmoker Start:21-Jun-2020 Instruction Type:Patient Education How to access health informa tion online - Detail Indication:Nonsmoker Start:21-Jun-2020 Instruction Type:Patient Education Patient Instructions Indication:BMI 31.0-31.9,adult Start:21-Jun-2020 Instruction Type:Provider Instructions for Treatment How to access health informa tion online Indication:Nonsmoker Start:01-Mar-2020 Instruction Type:Patient Education How to access health informa tion online - Detail Indication:Nonsmoker Start:01-Mar-2020 Instruction Type:Patient Education Patient Instructions Indication:Nonsmoker Start:01-Mar-2020 Instruction Type:Provider Instructions for Treatment How to access health informa tion online Indication:BMI 32.0-32.9,adult Start:28-Feb-2020 Instruction Type:Patient Education How to access health informa tion online - Detail Indication:BMI 32.0-32.9,adult Start:28-Feb-2020 Instruction Type:Patient Education Patient Instructions Indication:BMI 32.0-32.9,adult Start:28-Feb-2020 Instruction Type:Provider Instructions for Treatment How to access health informa tion online Indication:Urinary frequency Start:14-Oct-2019 Instruction Type:Patient Education How to access health informa tion online - Detail Indication:Urinary frequency Start:14-Oct-2019 Instruction Type:Patient Education Patient Instructions Indication:Urinary frequency Start:14-Oct-2019 Instruction Type:Provider Instructions for Treatment How to access health informa tion online Indication:Urinary frequency Start:02-Dec-2018 Instruction Type:Patient Education How to access health informa tion online - Detail Indication:Urinary frequency Start:02-Dec-2018 Instruction Type:Patient Education Patient Instructions Indication:Urinary frequency Start:02-Dec-2018 Instruction Type:Provider Instructions for Treatment How to access health informa tion online Indication:Nonsmoker Start:27-Jul-2018 Instruction Type:Patient Education How to access health informa tion online - Detail Indication:Nonsmoker Start:27-Jul-2018 Instruction Type:Patient Education Patient Instructions Indication:Nonsmoker Start:27-Jul-2018 Instruction Type:Provider Instructions for Treatment How to access health informa tion online Indication:BMI 32.0-32.9,adult Start:16-Oct-2017 Instruction Type:Patient Education How to access health informa tion online - Detail Indication:BMI 32.0-32.9,adult Start:16-Oct-2017 Instruction Type:Patient Education Patient Instructions Indication:UTI (urinary tract infection) Start:16-Oct-2017 Instruction Type:Provider Instructions for Treatment DISCONTINUED - METABOLIC ESPITIA EL, COMPREHENSIVE (62581) Indication:Renal Insufficiency (Renamed from Impaired renal function) Start:18-Jul-2017 Instruction Type:Patient Education DISCONTINUED - [id number] ([id number]) Indication:Fatty liver Start:18-Jul-2017 Instruction Type:Patient Education DISCONTINUED - PTT (Activate d Partial Thromboplastin Time) ([id number]) Indication:Fatty liver Start:18-Jul-2017 Instruction Type:Patient Education DISCONTINUED - PT (PROTHROMB IN TIME) (51142) Indication:Fatty liver Start:18-Jul-2017 Instruction Type:Patient Education DISCONTINUED - LIPID PANEL ( [id number]) Indication:Hyperlipidemia Start:18-Jul-2017 Instruction Type:Patient Education How to access health informa tion online Indication:Dysuria Start:18-Jul-2017 Instruction Type:Patient Education How to access health informa tion online - Detail Indication:Dysuria Start:18-Jul-2017 Instruction Type:Patient Education Patient Instructions Indication:Dysuria Start:18-Jul-2017 Instruction Type:Provider Instructions for Treatment How to access health informa tion online Indication:UTI symptoms Start:16-Dec-2016 Instruction Type:Patient Education How to access health informa tion online - Detail Indication:UTI symptoms Start:16-Dec-2016 Instruction Type:Patient Education Patient Instructions Indication:UTI symptoms Start:16-Dec-2016 Instruction Type:Provider Instructions for Treatment How to access health informa tion online Indication:UTI symptoms Start:23-Sep-2016 Instruction Type:Patient Education How to access health informa tion online - Detail Indication:UTI symptoms Start:23-Sep-2016 Instruction Type:Patient Education Patient Instructions Indication:UTI symptoms Start:23-Sep-2016 Instruction Type:Provider Instructions for Treatment How to access health informa tion online Indication:Impaired Fasting Glucose Start:06-Aug-2016 Instruction Type:Patient Education How to access health informa tion online - Detail Indication:Impaired Fasting Glucose Start:06-Aug-2016 Instruction Type:Patient Education Patient Instructions Indication:Impaired Fasting Glucose Start:06-Aug-2016 Instruction Type:Provider Instructions for Treatment How to access health informa tion online Indication:UTI symptoms Start:02-May-2016 Instruction Type:Patient Education How to access health informa tion online - Detail Indication:UTI symptoms Start:02-May-2016 Instruction Type:Patient Education Patient Instructions Indication:UTI symptoms Start:02-May-2016 Instruction Type:Provider Instructions for Treatment How to access health informa tion online Indication:UTI symptoms Start:19-Apr-2016 Instruction Type:Patient Education How to access health informa tion online - Detail Indication:UTI symptoms Start:19-Apr-2016 Instruction Type:Patient Education Patient Instructions Indication:UTI symptoms Start:19-Apr-2016 Instruction Type:Provider Instructions for Treatment How to access health informa tion online Indication:Sorethroat Start:14-Mar-2016 Instruction Type:Patient Education How to access health informa tion online - Detail Indication:Sorethroat Start:14-Mar-2016 Instruction Type:Patient Education Patient Instructions Indication:Sorethroat Start:14-Mar-2016 Instruction Type:Provider Instructions for Treatment How to access health informa tion online Indication:Impaired Fasting Glucose Start:11-Mar-2016 Instruction Type:Patient Education How to access health informa tion online - Detail Indication:Impaired Fasting Glucose Start:11-Mar-2016 Instruction Type:Patient Education Patient Instructions Indication:Impaired Fasting Glucose Start:11-Mar-2016 Instruction Type:Provider Instructions for Treatment How to access health informa tion online Indication:Impaired Fasting Glucose Start:09-Oct-2015 Instruction Type:Patient Education How to access health informa tion online - Detail Indication:Impaired Fasting Glucose Start:09-Oct-2015 Instruction Type:Patient Education Patient Instructions Indication:Impaired Fasting Glucose Start:09-Oct-2015 Instruction Type:Provider Instructions for Treatment Patient Instructions Indication:Impaired Fasting Glucose Start:21-Jun-2015 Instruction Type:Provider Instructions for Treatment How to access health informa tion online Indication:Poison debi Start:31-May-2015 Instruction Type:Patient Education How to access health informa tion online - Detail Indication:Poison debi Start:31-May-2015 Instruction Type:Patient Education Patient Instructions Indication:Poison debi Start:31-May-2015 Instruction Type:Provider Instructions for Treatment Patient Instructions Indication:Impaired Fasting Glucose Start:15-Feb-2015 Instruction Type:Provider Instructions for Treatment How to access health informa tion online Indication:Impaired Fasting Glucose Start:19-Oct-2014 Instruction Type:Patient Education How to access health informa tion online - Detail Indication:Impaired Fasting Glucose Start:19-Oct-2014 Instruction Type:Patient Education Patient Instructions Indication:Impaired Fasting Glucose Start:19-Oct-2014 Instruction Type:Provider Instructions for Treatment How to access health informa tion online Indication:Impaired Fasting Glucose Start:20-Jul-2014 Instruction Type:Patient Education How to access health informa tion online - Detail Indication:Impaired Fasting Glucose Start:20-Jul-2014 Instruction Type:Patient Education Patient Instructions Indication:Impaired Fasting Glucose Start:20-Jul-2014 Instruction Type:Provider Instructions for Treatment Patient Instructions Indication:Encounter for Medicare annual wellness exam Start:04-May-2014 Instruction Type:Provider Instructions for Treatment Patient Instructions Indication:Impaired Fasting Glucose Start:16-Mar-2014 Instruction Type:Provider Instructions for Treatment Patient Instructions Indication:Impaired Fasting Glucose Start:09-Nov-2013 Instruction Type:Provider Instructions for Treatment Patient Instructions Indication:Vaginal yeast infection Start:17-Aug-2013 Instruction Type:Provider Instructions for Treatment Patient Instructions Indication:Impaired Fasting Glucose Start:06-Aug-2013 Instruction Type:Provider Instructions for Treatment Patient Instructions Indication:Diverticulitis Start:30-Jun-2013 Instruction Type:Provider Instructions for Treatment [facility]; [facility] Work Phone: Instructions* Name Dates Details Patient Instructions Indication:BMI 32.0-32.9,adult Start:03-Oct-2023 Instruction Type:Provider Instructions for Treatment How to Access Health Informa tion Online using Patient Portal and [employer] Indication:BMI 32.0-32.9,adult Start:03-Oct-2023 Instruction Type:Patient Education Patient Instructions Indication:Nonsmoker Start:15-May-2023 Instruction Type:Provider Instructions for Treatment How to Access Health Informa tion Online using Patient Portal and [employer] Indication:Nonsmoker Start:15-May-2023 Instruction Type:Patient Education Patient Instructions Indication:Nonsmoker Start:17-Mar-2023 Instruction Type:Provider Instructions for Treatment How to Access Health Informa tion Online using Patient Portal and [employer] Indication:Nonsmoker Start:17-Mar-2023 Instruction Type:Patient Education Patient Instructions Indication:UTI symptoms Start:24-Dec-2022 Instruction Type:Provider Instructions for Treatment How to Access Health Informa tion Online using Patient Portal and [employer] Indication:UTI symptoms Start:24-Dec-2022 Instruction Type:Patient Education Patient Instructions Indication:Nonsmoker Start:07-Nov-2022 Instruction Type:Provider Instructions for Treatment How to Access Health Informa tion Online using Patient Portal and [employer] Indication:Nonsmoker Start:07-Nov-2022 Instruction Type:Patient Education Patient Instructions Indication:UTI symptoms Start:24-Sep-2022 Instruction Type:Provider Instructions for Treatment How to Access Health Informa tion Online using Patient Portal and [employer] Indication:UTI symptoms Start:24-Sep-2022 Instruction Type:Patient Education Patient Instructions Indication:BMI 31.0-31.9,adult Start:11-Mar-2022 Instruction Type:Provider Instructions for Treatment How to Access Health Informa tion Online using Patient Portal and [employer] Indication:BMI 31.0-31.9,adult Start:11-Mar-2022 Instruction Type:Patient Education Patient Instructions Indication:BMI 31.0-31.9,adult Start:11-Dec-2021 Instruction Type:Provider Instructions for Treatment How to Access Health Informa tion Online using Patient Portal and [employer] Indication:BMI 31.0-31.9,adult Start:11-Dec-2021 Instruction Type:Patient Education Patient Instructions Indication:Hyperlipidemia Start:26-Sep-2021 Instruction Type:Provider Instructions for Treatment How to Access Health Informa tion Online using Patient Portal and [employer] Indication:Impaired Fasting Glucose Start:26-Sep-2021 Instruction Type:Patient Education Patient Instructions Indication:BMI 31.0-31.9,adult Start:08-Jun-2021 Instruction Type:Provider Instructions for Treatment How to Access Health Informa tion Online using Patient Portal and [employer] Indication:Impaired Fasting Glucose Start:08-Jun-2021 Instruction Type:Patient Education Patient Instructions Indication:Nonsmoker Start:19-Feb-2021 Instruction Type:Provider Instructions for Treatment How to Access Health Informa tion Online using Patient Portal and [employer] Indication:Nonsmoker Start:19-Feb-2021 Instruction Type:Patient Education Patient Instructions Indication:BMI 32.0-32.9,adult Start:30-Jan-2021 Instruction Type:Provider Instructions for Treatment How to Access Health Informa tion Online using Patient Portal and [employer] Indication:BMI 32.0-32.9,adult Start:30-Jan-2021 Instruction Type:Patient Education Patient Instructions Indication:BMI 32.0-32.9,adult Start:03-Jan-2021 Instruction Type:Provider Instructions for Treatment How to Access Health Informa tion Online using Patient Portal and [employer] Indication:BMI 32.0-32.9,adult Start:03-Jan-2021 Instruction Type:Patient Education How to access health informa tion online Indication:Nonsmoker Start:23-Oct-2020 Instruction Type:Patient Education How to access health informa tion online - Detail Indication:Nonsmoker Start:23-Oct-2020 Instruction Type:Patient Education Patient Instructions Indication:Nonsmoker Start:23-Oct-2020 Instruction Type:Provider Instructions for Treatment How to access health informa tion online Indication:Nonsmoker Start:18-Sep-2020 Instruction Type:Patient Education How to access health informa tion online - Detail Indication:Nonsmoker Start:18-Sep-2020 Instruction Type:Patient Education Patient Instructions Indication:Nonsmoker Start:18-Sep-2020 Instruction Type:Provider Instructions for Treatment How to access health informa tion online Indication:Nonsmoker Start:21-Jun-2020 Instruction Type:Patient Education How to access health informa tion online - Detail Indication:Nonsmoker Start:21-Jun-2020 Instruction Type:Patient Education Patient Instructions Indication:BMI 31.0-31.9,adult Start:21-Jun-2020 Instruction Type:Provider Instructions for Treatment How to access health informa tion online Indication:Nonsmoker Start:01-Mar-2020 Instruction Type:Patient Education How to access health informa tion online - Detail Indication:Nonsmoker Start:01-Mar-2020 Instruction Type:Patient Education Patient Instructions Indication:Nonsmoker Start:01-Mar-2020 Instruction Type:Provider Instructions for Treatment How to access health informa tion online Indication:BMI 32.0-32.9,adult Start:28-Feb-2020 Instruction Type:Patient Education How to access health informa tion online - Detail Indication:BMI 32.0-32.9,adult Start:28-Feb-2020 Instruction Type:Patient Education Patient Instructions Indication:BMI 32.0-32.9,adult Start:28-Feb-2020 Instruction Type:Provider Instructions for Treatment How to access health informa tion online Indication:Urinary frequency Start:14-Oct-2019 Instruction Type:Patient Education How to access health informa tion online - Detail Indication:Urinary frequency Start:14-Oct-2019 Instruction Type:Patient Education Patient Instructions Indication:Urinary frequency Start:14-Oct-2019 Instruction Type:Provider Instructions for Treatment How to access health informa tion online Indication:Urinary frequency Start:02-Dec-2018 Instruction Type:Patient Education How to access health informa tion online - Detail Indication:Urinary frequency Start:02-Dec-2018 Instruction Type:Patient Education Patient Instructions Indication:Urinary frequency Start:02-Dec-2018 Instruction Type:Provider Instructions for Treatment How to access health informa tion online Indication:Nonsmoker Start:27-Jul-2018 Instruction Type:Patient Education How to access health informa tion online - Detail Indication:Nonsmoker Start:27-Jul-2018 Instruction Type:Patient Education Patient Instructions Indication:Nonsmoker Start:27-Jul-2018 Instruction Type:Provider Instructions for Treatment How to access health informa tion online Indication:BMI 32.0-32.9,adult Start:16-Oct-2017 Instruction Type:Patient Education How to access health informa tion online - Detail Indication:BMI 32.0-32.9,adult Start:16-Oct-2017 Instruction Type:Patient Education Patient Instructions Indication:UTI (urinary tract infection) Start:16-Oct-2017 Instruction Type:Provider Instructions for Treatment DISCONTINUED - METABOLIC ESPITIA EL, COMPREHENSIVE (52393) Indication:Renal Insufficiency (Renamed from Impaired renal function) Start:18-Jul-2017 Instruction Type:Patient Education DISCONTINUED - [id number] ([id number]) Indication:Fatty liver Start:18-Jul-2017 Instruction Type:Patient Education DISCONTINUED - PTT (Activate d Partial Thromboplastin Time) ([id number]) Indication:Fatty liver Start:18-Jul-2017 Instruction Type:Patient Education DISCONTINUED - PT (PROTHROMB IN TIME) ([id number]) Indication:Fatty liver Start:18-Jul-2017 Instruction Type:Patient Education DISCONTINUED - LIPID PANEL ( [id number]) Indication:Hyperlipidemia Start:18-Jul-2017 Instruction Type:Patient Education How to access health informa tion online Indication:Dysuria Start:18-Jul-2017 Instruction Type:Patient Education How to access health informa tion online - Detail Indication:Dysuria Start:18-Jul-2017 Instruction Type:Patient Education Patient Instructions Indication:Dysuria Start:18-Jul-2017 Instruction Type:Provider Instructions for Treatment How to access health informa tion online Indication:UTI symptoms Start:16-Dec-2016 Instruction Type:Patient Education How to access health informa tion online - Detail Indication:UTI symptoms Start:16-Dec-2016 Instruction Type:Patient Education Patient Instructions Indication:UTI symptoms Start:16-Dec-2016 Instruction Type:Provider Instructions for Treatment How to access health informa tion online Indication:UTI symptoms Start:23-Sep-2016 Instruction Type:Patient Education How to access health informa tion online - Detail Indication:UTI symptoms Start:23-Sep-2016 Instruction Type:Patient Education Patient Instructions Indication:UTI symptoms Start:23-Sep-2016 Instruction Type:Provider Instructions for Treatment How to access health informa tion online Indication:Impaired Fasting Glucose Start:06-Aug-2016 Instruction Type:Patient Education How to access health informa tion online - Detail Indication:Impaired Fasting Glucose Start:06-Aug-2016 Instruction Type:Patient Education Patient Instructions Indication:Impaired Fasting Glucose Start:06-Aug-2016 Instruction Type:Provider Instructions for Treatment How to access health informa tion online Indication:UTI symptoms Start:02-May-2016 Instruction Type:Patient Education How to access health informa tion online - Detail Indication:UTI symptoms Start:02-May-2016 Instruction Type:Patient Education Patient Instructions Indication:UTI symptoms Start:02-May-2016 Instruction Type:Provider Instructions for Treatment How to access health informa tion online Indication:UTI symptoms Start:19-Apr-2016 Instruction Type:Patient Education How to access health informa tion online - Detail Indication:UTI symptoms Start:19-Apr-2016 Instruction Type:Patient Education Patient Instructions Indication:UTI symptoms Start:19-Apr-2016 Instruction Type:Provider Instructions for Treatment How to access health informa tion online Indication:Sorethroat Start:14-Mar-2016 Instruction Type:Patient Education How to access health informa tion online - Detail Indication:Sorethroat Start:14-Mar-2016 Instruction Type:Patient Education Patient Instructions Indication:Sorethroat Start:14-Mar-2016 Instruction Type:Provider Instructions for Treatment How to access health informa tion online Indication:Impaired Fasting Glucose Start:11-Mar-2016 Instruction Type:Patient Education How to access health informa tion online - Detail Indication:Impaired Fasting Glucose Start:11-Mar-2016 Instruction Type:Patient Education Patient Instructions Indication:Impaired Fasting Glucose Start:11-Mar-2016 Instruction Type:Provider Instructions for Treatment How to access health informa tion online Indication:Impaired Fasting Glucose Start:09-Oct-2015 Instruction Type:Patient Education How to access health informa tion online - Detail Indication:Impaired Fasting Glucose Start:09-Oct-2015 Instruction Type:Patient Education Patient Instructions Indication:Impaired Fasting Glucose Start:09-Oct-2015 Instruction Type:Provider Instructions for Treatment Patient Instructions Indication:Impaired Fasting Glucose Start:21-Jun-2015 Instruction Type:Provider Instructions for Treatment How to access health informa tion online Indication:Poison debi Start:31-May-2015 Instruction Type:Patient Education How to access health informa tion online - Detail Indication:Poison debi Start:31-May-2015 Instruction Type:Patient Education Patient Instructions Indication:Poison debi Start:31-May-2015 Instruction Type:Provider Instructions for Treatment Patient Instructions Indication:Impaired Fasting Glucose Start:15-Feb-2015 Instruction Type:Provider Instructions for Treatment How to access health informa tion online Indication:Impaired Fasting Glucose Start:19-Oct-2014 Instruction Type:Patient Education How to access health informa tion online - Detail Indication:Impaired Fasting Glucose Start:19-Oct-2014 Instruction Type:Patient Education Patient Instructions Indication:Impaired Fasting Glucose Start:19-Oct-2014 Instruction Type:Provider Instructions for Treatment How to access health informa tion online Indication:Impaired Fasting Glucose Start:20-Jul-2014 Instruction Type:Patient Education How to access health informa tion online - Detail Indication:Impaired Fasting Glucose Start:20-Jul-2014 Instruction Type:Patient Education Patient Instructions Indication:Impaired Fasting Glucose Start:20-Jul-2014 Instruction Type:Provider Instructions for Treatment Patient Instructions Indication:Encounter for Medicare annual wellness exam Start:04-May-2014 Instruction Type:Provider Instructions for Treatment Patient Instructions Indication:Impaired Fasting Glucose Start:16-Mar-2014 Instruction Type:Provider Instructions for Treatment Patient Instructions Indication:Impaired Fasting Glucose Start:09-Nov-2013 Instruction Type:Provider Instructions for Treatment Patient Instructions Indication:Vaginal yeast infection Start:17-Aug-2013 Instruction Type:Provider Instructions for Treatment Patient Instructions Indication:Impaired Fasting Glucose Start:06-Aug-2013 Instruction Type:Provider Instructions for Treatment Patient Instructions Indication:Diverticulitis Start:30-Jun-2013 Instruction Type:Provider Instructions for Treatment [facility] Work Phone: progress note No data available for this section [facility] Reason for referral (narrative)No reason for referral [facility]: Family History No Family History Records FoundUnknown Family Member Name Dates Details Brother 1 Comments:lviing and diagnose d with parkinsons age mid 50s Status:Active Family Members In General Comments:has 3 children and Status:Active Father Comments:CABG, CVA- - in his early 70s Status:Active Mother Comments:HTN- living age 91- dementia Status:Active Sister 1 Comments:living and healthy Status:Active Sister 2 Comments:living and healthy Status:Active Unknown Family Member Name Dates Details Brother 1 Comments:lviing and diagnose d with parkinsons age mid 50s Status:Active Family Members In General Comments:has 3 children and Status:Active Father Comments:CABG, CVA- - in his early 70s Status:Active Mother Comments:HTN- living age 91- dementia Status:Active Sister 1 Comments:living and healthy Status:Active Sister 2 Comments:living and healthy Status:Active Unknown Family Member Name Dates Details Brother 1 Comments:lviing and diagnose d with parkinsons age mid 50s Status:Active Family Members In General Comments:has 3 children and Status:Active Father Comments:CABG, CVA- - in his early 70s Status:Active Mother Comments:HTN- living age 91- dementia Status:Active Sister 1 Comments:living and healthy Status:Active Sister 2 Comments:living and healthy Status:Active Unknown Family Member Name Dates Details Brother 1 Comments:lviing and diagnose d with parkinsons age mid 50s Status:Active Family Members In General Comments:has 3 children and Status:Active Father Comments:CABG, CVA- - in his early 70s Status:Active Mother Comments:HTN- living age 91- dementia Status:Active Sister 1 Comments:living and healthy Status:Active Sister 2 Comments:living and healthy Status:Active Unknown Family Member Name Dates Details Brother 1 Comments:lviing and diagnose d with parkinsons age mid 50s Status:Active Family Members In General Comments:has 3 children and Status:Active Father Comments:CABG, CVA- - in his early 70s Status:Active Mother Comments:HTN- living age 91- dementia Status:Active Sister 1 Comments:living and healthy Status:Active Sister 2 Comments:living and healthy Status:Active Unknown Family Member Name Dates Details Brother 1 Comments:lviing and diagnose d with parkinsons age mid 50s Status:Active Family Members In General Comments:has 3 children and Status:Active Father Comments:CABG, CVA- - in his early 70s Status:Active Mother Comments:HTN- living age 91- dementia Status:Active Sister 1 Comments:living and healthy Status:Active Sister 2 Comments:living and healthy Status:Active Unknown Family Member Name Dates Details Brother 1 Comments:lviing and diagnose d with parkinsons age mid 50s Status:Active Family Members In General Comments:has 3 children and Status:Active Father Comments:CABG, CVA- - in his early 70s Status:Active Mother Comments:HTN- living age 91- dementia Status:Active Sister 1 Comments:living and healthy Status:Active Sister 2 Comments:living and healthy Status:Active Unknown Family Member Name Dates Details Brother 1 Comments:lviing and diagnose d with parkinsons age mid 50s Status:Active Family Members In General Comments:has 3 children and Status:Active Father Comments:CABG, CVA- - in his early 70s Status:Active Mother Comments:HTN- living age 91- dementia Status:Active Sister 1 Comments:living and healthy Status:Active Sister 2 Comments:living and healthy Status:Active Unknown Family Member Name Dates Details Brother 1 Comments:lviing and diagnose d with parkinsons age mid 50s Status:Active Family Members In General Comments:has 3 children and Status:Active Father Comments:CABG, CVA- - in his early 70s Status:Active Mother Comments:HTN- living age 91- dementia Status:Active Sister 1 Comments:living and healthy Status:Active Sister 2 Comments:living and healthy Status:Active Unknown Family Member Name Dates Details Brother 1 Comments:lviing and diagnose d with parkinsons age mid 50s Status:Active Family Members In General Comments:has 3 children and Status:Active Father Comments:CABG, CVA- - in his early 70s Status:Active Mother Comments:HTN- living age 91- dementia Status:Active Sister 1 Comments:living and healthy Status:Active Sister 2 Comments:living and healthy Status:Active Unknown Family Member Name Dates Details Brother 1 Comments:lviing and diagnose d with parkinsons age mid 50s Status:Active Family Members In General Comments:has 3 children and Status:Active Father Comments:CABG, CVA- - in his early 70s Status:Active Mother Comments:HTN- living age 91- dementia Status:Active Sister 1 Comments:living and healthy Status:Active Sister 2 Comments:living and healthy Status:Active Unknown Family Member Name Dates Details Brother 1 Comments:lviing and diagnose d with parkinsons age mid 50s Status:Active Family Members In General Comments:has 3 children and Status:Active Father Comments:CABG, CVA- - in his early 70s Status:Active Mother Comments:HTN- living age 91- dementia Status:Active Sister 1 Comments:living and healthy Status:Active Sister 2 Comments:living and healthy Status:Active Unknown Family Member Name Dates Details Brother 1 Comments:lviing and diagnose d with parkinsons age mid 50s Status:Active Family Members In General Comments:has 3 children and Status:Active Father Comments:CABG, CVA- - in his early 70s Status:Active Mother Comments:HTN- living age 91- dementia Status:Active Sister 1 Comments:living and healthy Status:Active Sister 2 Comments:living and healthy Status:Active Unknown Family Member Name Dates Details Brother 1 Comments:lviing and diagnose d with parkinsons age mid 50s Status:Active Family Members In General Comments:has 3 children and Status:Active Father Comments:CABG, CVA- - in his early 70s Status:Active Mother Comments:HTN- living age 91- dementia Status:Active Sister 1 Comments:living and healthy Status:Active Sister 2 Comments:living and healthy Status:Active Unknown Family Member Name Dates Details Brother 1 Comments:lviing and diagnose d with parkinsons age mid 50s Status:Active Family Members In General Comments:has 3 children and Status:Active Father Comments:CABG, CVA- - in his early 70s Status:Active Mother Comments:HTN- living age 91- dementia Status:Active Sister 1 Comments:living and healthy Status:Active Sister 2 Comments:living and healthy Status:Active Unknown Family Member Name Dates Details Brother 1 Comments:lviing and diagnose d with parkinsons age mid 50s Status:Active Family Members In General Comments:has 3 children and Status:Active Father Comments:CABG, CVA- - in his early 70s Status:Active Mother Comments:HTN- living age 91- dementia Status:Active Sister 1 Comments:living and healthy Status:Active Sister 2 Comments:living and healthy Status:Active Unknown Family Member Name Dates Details Brother 1 Comments:lviing and diagnose d with parkinsons age mid 50s Status:Active Family Members In General Comments:has 3 children and Status:Active Father Comments:CABG, CVA- - in his early 70s Status:Active Mother Comments:HTN- living age 91- dementia Status:Active Sister 1 Comments:living and healthy Status:Active Sister 2 Comments:living and healthy Status:Active Unknown Family Member Name Dates Details Brother 1 Comments:lviing and diagnose d with parkinsons age mid 50s Status:Active Family Members In General Comments:has 3 children and Status:Active Father Comments:CABG, CVA- - in his early 70s Status:Active Mother Comments:HTN- living age 91- dementia Status:Active Sister 1 Comments:living and healthy Status:Active Sister 2 Comments:living and healthy Status:Active Unknown Family Member Name Dates Details Brother 1 Comments:lviing and diagnose d with parkinsons age mid 50s Status:Active Family Members In General Comments:has 3 children and Status:Active Father Comments:CABG, CVA- - in his early 70s Status:Active Mother Comments:HTN- living age 91- dementia Status:Active Sister 1 Comments:living and healthy Status:Active Sister 2 Comments:living and healthy Status:Active Unknown Family Member Name Dates Details Brother 1 Comments:lviing and diagnose d with parkinsons age mid 50s Status:Active Family Members In General Comments:has 3 children and Status:Active Father Comments:CABG, CVA- - in his early 70s Status:Active Mother Comments:HTN- living age 91- dementia Status:Active Sister 1 Comments:living and healthy Status:Active Sister 2 Comments:living and healthy Status:Active Unknown Family Member Name Dates Details Brother 1 Comments:lviing and diagnose d with parkinsons age mid 50s Status:Active Family Members In General Comments:has 3 children and Status:Active Father Comments:CABG, CVA- - in his early 70s Status:Active Mother Comments:HTN- living age 91- dementia Status:Active Sister 1 Comments:living and healthy Status:Active Sister 2 Comments:living and healthy Status:Active Unknown Family Member Name Dates Details Brother 1 Comments:lviing and diagnose d with parkinsons age mid 50s Status:Active Family Members In General Comments:has 3 children and Status:Active Father Comments:CABG, CVA- - in his early 70s Status:Active Mother Comments:HTN- living age 91- dementia Status:Active Sister 1 Comments:living and healthy Status:Active Sister 2 Comments:living and healthy Status:Active Relationship Condition Age at Onset Recorded Date/T anibal father Cardiac disease Unknown Cerebrovascular accident (CVA) Unknown Unknown Family Member Name Dates Details Brother 1 Comments:lviing and diagnose d with parkinsons age mid 50s Status:Active Family Members In General Comments:has 3 children and Status:Active Father Comments:CABG, CVA- - in his early 70s Status:Active Mother Comments:HTN- living age 91- dementia Status:Active Sister 1 Comments:living and healthy Status:Active Sister 2 Comments:living and healthy Status:Active Unknown Family Member Name Dates Details Brother 1 Comments:lviing and diagnose d with parkinsons age mid 50s Status:Active Family Members In General Comments:has 3 children and Status:Active Father Comments:CABG, CVA- - in his early 70s Status:Active Mother Comments:HTN- living age 91- dementia Status:Active Sister 1 Comments:living and healthy Status:Active Sister 2 Comments:living and healthy Status:Active Unknown Family Member Name Dates Details Brother 1 Comments:lviing and diagnose d with parkinsons age mid 50s Status:Active Family Members In General Comments:has 3 children and Status:Active Father Comments:CABG, CVA- - in his early 70s Status:Active Mother Comments:HTN- living age 91- dementia Status:Active Sister 1 Comments:living and healthy Status:Active Sister 2 Comments:living and healthy Status:Active Unknown Family Member Name Dates Details Brother 1 Comments:lviing and diagnose d with parkinsons age mid 50s Status:Active Family Members In General Comments:has 3 children and Status:Active Father Comments:CABG, CVA- - in his early 70s Status:Active Mother Comments:HTN- living age 91- dementia Status:Active Sister 1 Comments:living and healthy Status:Active Sister 2 Comments:living and healthy Status:Active Unknown Family Member Name Dates Details Brother 1 Comments:lviing and diagnose d with parkinsons age mid 50s Status:Active Family Members In General Comments:has 3 children and Status:Active Father Comments:CABG, CVA- - in his early 70s Status:Active Mother Comments:HTN- living age 91- dementia Status:Active Sister 1 Comments:living and healthy Status:Active Sister 2 Comments:living and healthy Status:Active Unknown Family Member Name Dates Details Brother 1 Comments:lviing and diagnose d with parkinsons age mid 50s Status:Active Family Members In General Comments:has 3 children and Status:Active Father Comments:CABG, CVA- - in his early 70s Status:Active Mother Comments:HTN- living age 91- dementia Status:Active Sister 1 Comments:living and healthy Status:Active Sister 2 Comments:living and healthy Status:Active Unknown Family Member Name Dates Details Brother 1 Comments:lviing and diagnose d with parkinsons age mid 50s Status:Active Family Members In General Comments:has 3 children and Status:Active Father Comments:CABG, CVA- - in his early 70s Status:Active Mother Comments:HTN- living age 91- dementia Status:Active Sister 1 Comments:living and healthy Status:Active Sister 2 Comments:living and healthy Status:Active Unknown Family Member Name Dates Details Brother 1 Comments:lviing and diagnose d with parkinsons age mid 50s Status:Active Family Members In General Comments:has 3 children and Status:Active Father Comments:CABG, CVA- - in his early 70s Status:Active Mother Comments:HTN- living age 91- dementia Status:Active Sister 1 Comments:living and healthy Status:Active Sister 2 Comments:living and healthy Status:Active Unknown Family Member Name Dates Details Brother 1 Comments:lviing and diagnose d with parkinsons age mid 50s Status:Active Family Members In General Comments:has 3 children and Status:Active Father Comments:CABG, CVA- - in his early 70s Status:Active Mother Comments:HTN- living age 91- dementia Status:Active Sister 1 Comments:living and healthy Status:Active Sister 2 Comments:living and healthy Status:Active Unknown Family Member Name Dates Details Brother 1 Comments:lviing and diagnose d with parkinsons age mid 50s Status:Active Family Members In General Comments:has 3 children and Status:Active Father Comments:CABG, CVA- - in his early 70s Status:Active Mother Comments:HTN- living age 91- dementia Status:Active Sister 1 Comments:living and healthy Status:Active Sister 2 Comments:living and healthy Status:Active Unknown Family Member Name Dates Details Brother 1 Comments:lviing and diagnose d with parkinsons age mid 50s Status:Active Family Members In General Comments:has 3 children and Status:Active Father Comments:CABG, CVA- - in his early 70s Status:Active Mother Comments:HTN- living age 91- dementia Status:Active Sister 1 Comments:living and healthy Status:Active Sister 2 Comments:living and healthy Status:Active Unknown Family Member Name Dates Details Brother 1 Comments:lviing and diagnose d with parkinsons age mid 50s Status:Active Family Members In General Comments:has 3 children and Status:Active Father Comments:CABG, CVA- - in his early 70s Status:Active Mother Comments:HTN- living age 91- dementia Status:Active Sister 1 Comments:living and healthy Status:Active Sister 2 Comments:living and healthy Status:Active Unknown Family Member Name Dates Details Brother 1 Comments:lviing and diagnose d with parkinsons age mid 50s Status:Active Family Members In General Comments:has 3 children and Status:Active Father Comments:CABG, CVA- - in his early 70s Status:Active Mother Comments:HTN- living age 91- dementia Status:Active Sister 1 Comments:living and healthy Status:Active Sister 2 Comments:living and healthy Status:Active Unknown Family Member Name Dates Details Brother 1 Comments:lviing and diagnose d with parkinsons age mid 50s Status:Active Family Members In General Comments:has 3 children and Status:Active Father Comments:CABG, CVA- - in his early 70s Status:Active Mother Comments:HTN- living age 91- dementia Status:Active Sister 1 Comments:living and healthy Status:Active Sister 2 Comments:living and healthy Status:Active Unknown Family Member Name Dates Details Brother 1 Comments:lviing and diagnose d with parkinsons age mid 50s Status:Active Family Members In General Comments:has 3 children and Status:Active Father Comments:CABG, CVA- - in his early 70s Status:Active Mother Comments:HTN- living age 91- dementia Status:Active Sister 1 Comments:living and healthy Status:Active Sister 2 Comments:living and healthy Status:Active Unknown Family Member Name Dates Details Brother 1 Comments:lviing and diagnose d with parkinsons age mid 50s Status:Active Family Members In General Comments:has 3 children and Status:Active Father Comments:CABG, CVA- - in his early 70s Status:Active Mother Comments:HTN- living age 91- dementia Status:Active Sister 1 Comments:living and healthy Status:Active Sister 2 Comments:living and healthy Status:Active Unknown Family Member Name Dates Details Brother 1 Comments:lviing and diagnose d with parkinsons age mid 50s Status:Active Family Members In General Comments:has 3 children and Status:Active Father Comments:CABG, CVA- - in his early 70s Status:Active Mother Comments:HTN- living age 91- dementia Status:Active Sister 1 Comments:living and healthy Status:Active Sister 2 Comments:living and healthy Status:Active Unknown Family Member Name Dates Details Brother 1 Comments:lviing and diagnose d with parkinsons age mid 50s Status:Active Family Members In General Comments:has 3 children and Status:Active Father Comments:CABG, CVA- - in his early 70s Status:Active Mother Comments:HTN- living age 91- dementia Status:Active Sister 1 Comments:living and healthy Status:Active Sister 2 Comments:living and healthy Status:Active Instructions Name Dates Details Urinary frequency : How to a ccess health information online Indication:Urinary frequency Urinary frequency : How to a ccess health information online - Detail Indication:Urinary frequency Urinary frequency : Patient Instructions Indication:Urinary frequency Nonsmoker : How to access he alth information online Indication:Nonsmoker Nonsmoker : How to access he alth information online - Detail Indication:Nonsmoker Nonsmoker : Patient Instruct ions Indication:Nonsmoker BMI 32.0-32.9,adult : How to access health information online Indication:BMI 32.0-32.9,adult BMI 32.0-32.9,adult : How to access health information online - Detail Indication:BMI 32.0-32.9,adult UTI (urinary tract infection ) : Patient Instructions Indication:UTI (urinary tract infection) Renal Insufficiency (Renamed from Impaired renal function) : DISCONTINUED - METABOLIC PANEL, COMPREHENSIVE (01303) Indication:Renal Insufficiency (Renamed from Impaired renal function) Fatty liver : DISCONTINUED - [id number] (45324) Indication:Fatty liver Fatty liver : DISCONTINUED - PTT (Activated Partial Thromboplastin Time) (30762) Indication:Fatty liver Fatty liver : DISCONTINUED - PT (PROTHROMBIN TIME) (11741) Indication:Fatty liver Hyperlipidemia : DISCONTINUE D - LIPID PANEL (41292) Indication:Hyperlipidemia Dysuria : How to access heal th information online Indication:Dysuria Dysuria : How to access heal th information online - Detail Indication:Dysuria Dysuria : Patient Instructio ns Indication:Dysuria UTI symptoms : How to access health information online Indication:UTI symptoms UTI symptoms : How to access health information online - Detail Indication:UTI symptoms UTI symptoms : Patient Instr uctions Indication:UTI symptoms Impaired Fasting Glucose : H ow to access health information online Indication:Impaired Fasting Glucose Impaired Fasting Glucose : H ow to access health information online - Detail Indication:Impaired Fasting Glucose Impaired Fasting Glucose : P atient Instructions Indication:Impaired Fasting Glucose Sorethroat : How to access h ealth information online Indication:Sorethroat Sorethroat : How to access h ealth information online - Detail Indication:Sorethroat Sorethroat : Patient Instruc tions Indication:Sorethroat Poison debi : How to access h ealth information online Indication:Poison debi Poison debi : How to access h ealth information online - Detail Indication:Poison debi Poison debi : Patient Instruc tions Indication:Poison debi Encounter for Medicare annua l wellness exam : Patient Instructions Indication:Encounter for Medicare annual wellness exam Vaginal yeast infection : Andry garcia Instructions Indication:Vaginal yeast infection Diverticulitis : Patient Ins tructions Indication:Diverticulitis Name Dates Details Urinary frequency : How to a ccess health information online Indication:Urinary frequency Urinary frequency : How to a ccess health information online - Detail Indication:Urinary frequency Urinary frequency : Patient Instructions Indication:Urinary frequency Nonsmoker : How to access he alth information online Indication:Nonsmoker Nonsmoker : How to access he alth information online - Detail Indication:Nonsmoker Nonsmoker : Patient Instruct ions Indication:Nonsmoker BMI 32.0-32.9,adult : How to access health information online Indication:BMI 32.0-32.9,adult BMI 32.0-32.9,adult : How to access health information online - Detail Indication:BMI 32.0-32.9,adult UTI (urinary tract infection ) : Patient Instructions Indication:UTI (urinary tract infection) Renal Insufficiency (Renamed from Impaired renal function) : DISCONTINUED - METABOLIC PANEL, COMPREHENSIVE (78758) Indication:Renal Insufficiency (Renamed from Impaired renal function) Fatty liver : DISCONTINUED - [id number] (52408) Indication:Fatty liver Fatty liver : DISCONTINUED - PTT (Activated Partial Thromboplastin Time) (81952) Indication:Fatty liver Fatty liver : DISCONTINUED - PT (PROTHROMBIN TIME) (16411) Indication:Fatty liver Hyperlipidemia : DISCONTINUE D - LIPID PANEL (37184) Indication:Hyperlipidemia Dysuria : How to access heal th information online Indication:Dysuria Dysuria : How to access heal th information online - Detail Indication:Dysuria Dysuria : Patient Instructio ns Indication:Dysuria UTI symptoms : How to access health information online Indication:UTI symptoms UTI symptoms : How to access health information online - Detail Indication:UTI symptoms UTI symptoms : Patient Instr uctions Indication:UTI symptoms Impaired Fasting Glucose : H ow to access health information online Indication:Impaired Fasting Glucose Impaired Fasting Glucose : H ow to access health information online - Detail Indication:Impaired Fasting Glucose Impaired Fasting Glucose : P atient Instructions Indication:Impaired Fasting Glucose Sorethroat : How to access h ealth information online Indication:Sorethroat Sorethroat : How to access h ealth information online - Detail Indication:Sorethroat Sorethroat : Patient Instruc tions Indication:Sorethroat Poison debi : How to access h ealth information online Indication:Poison debi Poison debi : How to access h ealth information online - Detail Indication:Poison debi Poison debi : Patient Instruc tions Indication:Poison debi Encounter for Medicare annua l wellness exam : Patient Instructions Indication:Encounter for Medicare annual wellness exam Vaginal yeast infection : Pa tient Instructions Indication:Vaginal yeast infection Diverticulitis : Patient Ins tructions Indication:Diverticulitis Name Dates Details Urinary frequency : How to a ccess health information online Indication:Urinary frequency Urinary frequency : How to a ccess health information online - Detail Indication:Urinary frequency Urinary frequency : Patient Instructions Indication:Urinary frequency Nonsmoker : How to access he alth information online Indication:Nonsmoker Nonsmoker : How to access he alth information online - Detail Indication:Nonsmoker Nonsmoker : Patient Instruct ions Indication:Nonsmoker BMI 32.0-32.9,adult : How to access health information online Indication:BMI 32.0-32.9,adult BMI 32.0-32.9,adult : How to access health information online - Detail Indication:BMI 32.0-32.9,adult UTI (urinary tract infection ) : Patient Instructions Indication:UTI (urinary tract infection) Renal Insufficiency (Renamed from Impaired renal function) : DISCONTINUED - METABOLIC PANEL, COMPREHENSIVE (51661) Indication:Renal Insufficiency (Renamed from Impaired renal function) Fatty liver : DISCONTINUED - [id number] ([id number]) Indication:Fatty liver Fatty liver : DISCONTINUED - PTT (Activated Partial Thromboplastin Time) ([id number]) Indication:Fatty liver Fatty liver : DISCONTINUED - PT (PROTHROMBIN TIME) ([id number]) Indication:Fatty liver Hyperlipidemia : DISCONTINUE D - LIPID PANEL ([id number]) Indication:Hyperlipidemia Dysuria : How to access heal th information online Indication:Dysuria Dysuria : How to access heal th information online - Detail Indication:Dysuria Dysuria : Patient Instructio ns Indication:Dysuria UTI symptoms : How to access health information online Indication:UTI symptoms UTI symptoms : How to access health information online - Detail Indication:UTI symptoms UTI symptoms : Patient Instr uctions Indication:UTI symptoms Impaired Fasting Glucose : H ow to access health information online Indication:Impaired Fasting Glucose Impaired Fasting Glucose : H ow to access health information online - Detail Indication:Impaired Fasting Glucose Impaired Fasting Glucose : P atient Instructions Indication:Impaired Fasting Glucose Sorethroat : How to access h ealth information online Indication:Sorethroat Sorethroat : How to access h ealth information online - Detail Indication:Sorethroat Sorethroat : Patient Instruc tions Indication:Sorethroat Poison debi : How to access h ealth information online Indication:Poison debi Poison debi : How to access h ealth information online - Detail Indication:Poison debi Poison debi : Patient Instruc tions Indication:Poison debi Encounter for Medicare annua l wellness exam : Patient Instructions Indication:Encounter for Medicare annual wellness exam Vaginal yeast infection : Pa tient Instructions Indication:Vaginal yeast infection Diverticulitis : Patient Ins tructions Indication:Diverticulitis Name Dates Details How to access health informa tion online Indication:Urinary frequency Start:02-Dec-2018 Instruction Type:Patient Education How to access health informa tion online - Detail Indication:Urinary frequency Start:02-Dec-2018 Instruction Type:Patient Education Patient Instructions Indication:Urinary frequency Start:02-Dec-2018 Instruction Type:Provider Instructions for Treatment How to access health informa tion online Indication:Nonsmoker Start:27-Jul-2018 Instruction Type:Patient Education How to access health informa tion online - Detail Indication:Nonsmoker Start:27-Jul-2018 Instruction Type:Patient Education Patient Instructions Indication:Nonsmoker Start:27-Jul-2018 Instruction Type:Provider Instructions for Treatment How to access health informa tion online Indication:BMI 32.0-32.9,adult Start:16-Oct-2017 Instruction Type:Patient Education How to access health informa tion online - Detail Indication:BMI 32.0-32.9,adult Start:16-Oct-2017 Instruction Type:Patient Education Patient Instructions Indication:UTI (urinary tract infection) Start:16-Oct-2017 Instruction Type:Provider Instructions for Treatment DISCONTINUED - METABOLIC ESPITIA EL, COMPREHENSIVE ([id number]) Indication:Renal Insufficiency (Renamed from Impaired renal function) Start:18-Jul-2017 Instruction Type:Patient Education DISCONTINUED - [id number] ([id number]) Indication:Fatty liver Start:18-Jul-2017 Instruction Type:Patient Education DISCONTINUED - PTT (Activate d Partial Thromboplastin Time) (40947) Indication:Fatty liver Start:18-Jul-2017 Instruction Type:Patient Education DISCONTINUED - PT (PROTHROMB IN TIME) ([id number]) Indication:Fatty liver Start:18-Jul-2017 Instruction Type:Patient Education DISCONTINUED - LIPID PANEL ( [id number]) Indication:Hyperlipidemia Start:18-Jul-2017 Instruction Type:Patient Education How to access health informa tion online Indication:Dysuria Start:18-Jul-2017 Instruction Type:Patient Education How to access health informa tion online - Detail Indication:Dysuria Start:18-Jul-2017 Instruction Type:Patient Education Patient Instructions Indication:Dysuria Start:18-Jul-2017 Instruction Type:Provider Instructions for Treatment How to access health informa tion online Indication:UTI symptoms Start:16-Dec-2016 Instruction Type:Patient Education How to access health informa tion online - Detail Indication:UTI symptoms Start:16-Dec-2016 Instruction Type:Patient Education Patient Instructions Indication:UTI symptoms Start:16-Dec-2016 Instruction Type:Provider Instructions for Treatment How to access health informa tion online Indication:UTI symptoms Start:23-Sep-2016 Instruction Type:Patient Education How to access health informa tion online - Detail Indication:UTI symptoms Start:23-Sep-2016 Instruction Type:Patient Education Patient Instructions Indication:UTI symptoms Start:23-Sep-2016 Instruction Type:Provider Instructions for Treatment How to access health informa tion online Indication:Impaired Fasting Glucose Start:06-Aug-2016 Instruction Type:Patient Education How to access health informa tion online - Detail Indication:Impaired Fasting Glucose Start:06-Aug-2016 Instruction Type:Patient Education Patient Instructions Indication:Impaired Fasting Glucose Start:06-Aug-2016 Instruction Type:Provider Instructions for Treatment How to access health informa tion online Indication:UTI symptoms Start:02-May-2016 Instruction Type:Patient Education How to access health informa tion online - Detail Indication:UTI symptoms Start:02-May-2016 Instruction Type:Patient Education Patient Instructions Indication:UTI symptoms Start:02-May-2016 Instruction Type:Provider Instructions for Treatment How to access health informa tion online Indication:UTI symptoms Start:19-Apr-2016 Instruction Type:Patient Education How to access health informa tion online - Detail Indication:UTI symptoms Start:19-Apr-2016 Instruction Type:Patient Education Patient Instructions Indication:UTI symptoms Start:19-Apr-2016 Instruction Type:Provider Instructions for Treatment How to access health informa tion online Indication:Sorethroat Start:14-Mar-2016 Instruction Type:Patient Education How to access health informa tion online - Detail Indication:Sorethroat Start:14-Mar-2016 Instruction Type:Patient Education Patient Instructions Indication:Sorethroat Start:14-Mar-2016 Instruction Type:Provider Instructions for Treatment How to access health informa tion online Indication:Impaired Fasting Glucose Start:11-Mar-2016 Instruction Type:Patient Education How to access health informa tion online - Detail Indication:Impaired Fasting Glucose Start:11-Mar-2016 Instruction Type:Patient Education Patient Instructions Indication:Impaired Fasting Glucose Start:11-Mar-2016 Instruction Type:Provider Instructions for Treatment How to access health informa tion online Indication:Impaired Fasting Glucose Start:09-Oct-2015 Instruction Type:Patient Education How to access health informa tion online - Detail Indication:Impaired Fasting Glucose Start:09-Oct-2015 Instruction Type:Patient Education Patient Instructions Indication:Impaired Fasting Glucose Start:09-Oct-2015 Instruction Type:Provider Instructions for Treatment Patient Instructions Indication:Impaired Fasting Glucose Start:21-Jun-2015 Instruction Type:Provider Instructions for Treatment How to access health informa tion online Indication:Poison debi Start:31-May-2015 Instruction Type:Patient Education How to access health informa tion online - Detail Indication:Poison debi Start:31-May-2015 Instruction Type:Patient Education Patient Instructions Indication:Poison debi Start:31-May-2015 Instruction Type:Provider Instructions for Treatment Patient Instructions Indication:Impaired Fasting Glucose Start:15-Feb-2015 Instruction Type:Provider Instructions for Treatment How to access health informa tion online Indication:Impaired Fasting Glucose Start:19-Oct-2014 Instruction Type:Patient Education How to access health informa tion online - Detail Indication:Impaired Fasting Glucose Start:19-Oct-2014 Instruction Type:Patient Education Patient Instructions Indication:Impaired Fasting Glucose Start:19-Oct-2014 Instruction Type:Provider Instructions for Treatment How to access health informa tion online Indication:Impaired Fasting Glucose Start:20-Jul-2014 Instruction Type:Patient Education How to access health informa tion online - Detail Indication:Impaired Fasting Glucose Start:20-Jul-2014 Instruction Type:Patient Education Patient Instructions Indication:Impaired Fasting Glucose Start:20-Jul-2014 Instruction Type:Provider Instructions for Treatment Patient Instructions Indication:Encounter for Medicare annual wellness exam Start:04-May-2014 Instruction Type:Provider Instructions for Treatment Patient Instructions Indication:Impaired Fasting Glucose Start:16-Mar-2014 Instruction Type:Provider Instructions for Treatment Patient Instructions Indication:Impaired Fasting Glucose Start:09-Nov-2013 Instruction Type:Provider Instructions for Treatment Patient Instructions Indication:Vaginal yeast infection Start:17-Aug-2013 Instruction Type:Provider Instructions for Treatment Patient Instructions Indication:Impaired Fasting Glucose Start:06-Aug-2013 Instruction Type:Provider Instructions for Treatment Patient Instructions Indication:Diverticulitis Start:30-Jun-2013 Instruction Type:Provider Instructions for Treatment Name Dates Details How to access health informa tion online Indication:Urinary frequency Start:02-Dec-2018 Instruction Type:Patient Education How to access health informa tion online - Detail Indication:Urinary frequency Start:02-Dec-2018 Instruction Type:Patient Education Patient Instructions Indication:Urinary frequency Start:02-Dec-2018 Instruction Type:Provider Instructions for Treatment How to access health informa tion online Indication:Nonsmoker Start:27-Jul-2018 Instruction Type:Patient Education How to access health informa tion online - Detail Indication:Nonsmoker Start:27-Jul-2018 Instruction Type:Patient Education Patient Instructions Indication:Nonsmoker Start:27-Jul-2018 Instruction Type:Provider Instructions for Treatment How to access health informa tion online Indication:BMI 32.0-32.9,adult Start:16-Oct-2017 Instruction Type:Patient Education How to access health informa tion online - Detail Indication:BMI 32.0-32.9,adult Start:16-Oct-2017 Instruction Type:Patient Education Patient Instructions Indication:UTI (urinary tract infection) Start:16-Oct-2017 Instruction Type:Provider Instructions for Treatment DISCONTINUED - METABOLIC ESPITIA EL, COMPREHENSIVE ([id number]) Indication:Renal Insufficiency (Renamed from Impaired renal function) Start:18-Jul-2017 Instruction Type:Patient Education DISCONTINUED - [id number] ([id number]) Indication:Fatty liver Start:18-Jul-2017 Instruction Type:Patient Education DISCONTINUED - PTT (Activate d Partial Thromboplastin Time) ([id number]) Indication:Fatty liver Start:18-Jul-2017 Instruction Type:Patient Education DISCONTINUED - PT (PROTHROMB IN TIME) ([id number]) Indication:Fatty liver Start:18-Jul-2017 Instruction Type:Patient Education DISCONTINUED - LIPID PANEL ( [id number]) Indication:Hyperlipidemia Start:18-Jul-2017 Instruction Type:Patient Education How to access health informa tion online Indication:Dysuria Start:18-Jul-2017 Instruction Type:Patient Education How to access health informa tion online - Detail Indication:Dysuria Start:18-Jul-2017 Instruction Type:Patient Education Patient Instructions Indication:Dysuria Start:18-Jul-2017 Instruction Type:Provider Instructions for Treatment How to access health informa tion online Indication:UTI symptoms Start:16-Dec-2016 Instruction Type:Patient Education How to access health informa tion online - Detail Indication:UTI symptoms Start:16-Dec-2016 Instruction Type:Patient Education Patient Instructions Indication:UTI symptoms Start:16-Dec-2016 Instruction Type:Provider Instructions for Treatment How to access health informa tion online Indication:UTI symptoms Start:23-Sep-2016 Instruction Type:Patient Education How to access health informa tion online - Detail Indication:UTI symptoms Start:23-Sep-2016 Instruction Type:Patient Education Patient Instructions Indication:UTI symptoms Start:23-Sep-2016 Instruction Type:Provider Instructions for Treatment How to access health informa tion online Indication:Impaired Fasting Glucose Start:06-Aug-2016 Instruction Type:Patient Education How to access health informa tion online - Detail Indication:Impaired Fasting Glucose Start:06-Aug-2016 Instruction Type:Patient Education Patient Instructions Indication:Impaired Fasting Glucose Start:06-Aug-2016 Instruction Type:Provider Instructions for Treatment How to access health informa tion online Indication:UTI symptoms Start:02-May-2016 Instruction Type:Patient Education How to access health informa tion online - Detail Indication:UTI symptoms Start:02-May-2016 Instruction Type:Patient Education Patient Instructions Indication:UTI symptoms Start:02-May-2016 Instruction Type:Provider Instructions for Treatment How to access health informa tion online Indication:UTI symptoms Start:19-Apr-2016 Instruction Type:Patient Education How to access health informa tion online - Detail Indication:UTI symptoms Start:19-Apr-2016 Instruction Type:Patient Education Patient Instructions Indication:UTI symptoms Start:19-Apr-2016 Instruction Type:Provider Instructions for Treatment How to access health informa tion online Indication:Sorethroat Start:14-Mar-2016 Instruction Type:Patient Education How to access health informa tion online - Detail Indication:Sorethroat Start:14-Mar-2016 Instruction Type:Patient Education Patient Instructions Indication:Sorethroat Start:14-Mar-2016 Instruction Type:Provider Instructions for Treatment How to access health informa tion online Indication:Impaired Fasting Glucose Start:11-Mar-2016 Instruction Type:Patient Education How to access health informa tion online - Detail Indication:Impaired Fasting Glucose Start:11-Mar-2016 Instruction Type:Patient Education Patient Instructions Indication:Impaired Fasting Glucose Start:11-Mar-2016 Instruction Type:Provider Instructions for Treatment How to access health informa tion online Indication:Impaired Fasting Glucose Start:09-Oct-2015 Instruction Type:Patient Education How to access health informa tion online - Detail Indication:Impaired Fasting Glucose Start:09-Oct-2015 Instruction Type:Patient Education Patient Instructions Indication:Impaired Fasting Glucose Start:09-Oct-2015 Instruction Type:Provider Instructions for Treatment Patient Instructions Indication:Impaired Fasting Glucose Start:21-Jun-2015 Instruction Type:Provider Instructions for Treatment How to access health informa tion online Indication:Poison debi Start:31-May-2015 Instruction Type:Patient Education How to access health informa tion online - Detail Indication:Poison debi Start:31-May-2015 Instruction Type:Patient Education Patient Instructions Indication:Poison debi Start:31-May-2015 Instruction Type:Provider Instructions for Treatment Patient Instructions Indication:Impaired Fasting Glucose Start:15-Feb-2015 Instruction Type:Provider Instructions for Treatment How to access health informa tion online Indication:Impaired Fasting Glucose Start:19-Oct-2014 Instruction Type:Patient Education How to access health informa tion online - Detail Indication:Impaired Fasting Glucose Start:19-Oct-2014 Instruction Type:Patient Education Patient Instructions Indication:Impaired Fasting Glucose Start:19-Oct-2014 Instruction Type:Provider Instructions for Treatment How to access health informa tion online Indication:Impaired Fasting Glucose Start:20-Jul-2014 Instruction Type:Patient Education How to access health informa tion online - Detail Indication:Impaired Fasting Glucose Start:20-Jul-2014 Instruction Type:Patient Education Patient Instructions Indication:Impaired Fasting Glucose Start:20-Jul-2014 Instruction Type:Provider Instructions for Treatment Patient Instructions Indication:Encounter for Medicare annual wellness exam Start:04-May-2014 Instruction Type:Provider Instructions for Treatment Patient Instructions Indication:Impaired Fasting Glucose Start:16-Mar-2014 Instruction Type:Provider Instructions for Treatment Patient Instructions Indication:Impaired Fasting Glucose Start:09-Nov-2013 Instruction Type:Provider Instructions for Treatment Patient Instructions Indication:Vaginal yeast infection Start:17-Aug-2013 Instruction Type:Provider Instructions for Treatment Patient Instructions Indication:Impaired Fasting Glucose Start:06-Aug-2013 Instruction Type:Provider Instructions for Treatment Patient Instructions Indication:Diverticulitis Start:30-Jun-2013 Instruction Type:Provider Instructions for Treatment Name Dates Details How to access health informa tion online Indication:Urinary frequency Start:14-Oct-2019 Instruction Type:Patient Education How to access health informa tion online - Detail Indication:Urinary frequency Start:14-Oct-2019 Instruction Type:Patient Education Patient Instructions Indication:Urinary frequency Start:14-Oct-2019 Instruction Type:Provider Instructions for Treatment How to access health informa tion online Indication:Urinary frequency Start:02-Dec-2018 Instruction Type:Patient Education How to access health informa tion online - Detail Indication:Urinary frequency Start:02-Dec-2018 Instruction Type:Patient Education Patient Instructions Indication:Urinary frequency Start:02-Dec-2018 Instruction Type:Provider Instructions for Treatment How to access health informa tion online Indication:Nonsmoker Start:27-Jul-2018 Instruction Type:Patient Education How to access health informa tion online - Detail Indication:Nonsmoker Start:27-Jul-2018 Instruction Type:Patient Education Patient Instructions Indication:Nonsmoker Start:27-Jul-2018 Instruction Type:Provider Instructions for Treatment How to access health informa tion online Indication:BMI 32.0-32.9,adult Start:16-Oct-2017 Instruction Type:Patient Education How to access health informa tion online - Detail Indication:BMI 32.0-32.9,adult Start:16-Oct-2017 Instruction Type:Patient Education Patient Instructions Indication:UTI (urinary tract infection) Start:16-Oct-2017 Instruction Type:Provider Instructions for Treatment DISCONTINUED - METABOLIC ESPITIA EL, COMPREHENSIVE ([id number]) Indication:Renal Insufficiency (Renamed from Impaired renal function) Start:18-Jul-2017 Instruction Type:Patient Education DISCONTINUED - [id number] ([id number]) Indication:Fatty liver Start:18-Jul-2017 Instruction Type:Patient Education DISCONTINUED - PTT (Activate d Partial Thromboplastin Time) ([id number]) Indication:Fatty liver Start:18-Jul-2017 Instruction Type:Patient Education DISCONTINUED - PT (PROTHROMB IN TIME) ([id number]) Indication:Fatty liver Start:18-Jul-2017 Instruction Type:Patient Education DISCONTINUED - LIPID PANEL ( [id number]) Indication:Hyperlipidemia Start:18-Jul-2017 Instruction Type:Patient Education How to access health informa tion online Indication:Dysuria Start:18-Jul-2017 Instruction Type:Patient Education How to access health informa tion online - Detail Indication:Dysuria Start:18-Jul-2017 Instruction Type:Patient Education Patient Instructions Indication:Dysuria Start:18-Jul-2017 Instruction Type:Provider Instructions for Treatment How to access health informa tion online Indication:UTI symptoms Start:16-Dec-2016 Instruction Type:Patient Education How to access health informa tion online - Detail Indication:UTI symptoms Start:16-Dec-2016 Instruction Type:Patient Education Patient Instructions Indication:UTI symptoms Start:16-Dec-2016 Instruction Type:Provider Instructions for Treatment How to access health informa tion online Indication:UTI symptoms Start:23-Sep-2016 Instruction Type:Patient Education How to access health informa tion online - Detail Indication:UTI symptoms Start:23-Sep-2016 Instruction Type:Patient Education Patient Instructions Indication:UTI symptoms Start:23-Sep-2016 Instruction Type:Provider Instructions for Treatment How to access health informa tion online Indication:Impaired Fasting Glucose Start:06-Aug-2016 Instruction Type:Patient Education How to access health informa tion online - Detail Indication:Impaired Fasting Glucose Start:06-Aug-2016 Instruction Type:Patient Education Patient Instructions Indication:Impaired Fasting Glucose Start:06-Aug-2016 Instruction Type:Provider Instructions for Treatment How to access health informa tion online Indication:UTI symptoms Start:02-May-2016 Instruction Type:Patient Education How to access health informa tion online - Detail Indication:UTI symptoms Start:02-May-2016 Instruction Type:Patient Education Patient Instructions Indication:UTI symptoms Start:02-May-2016 Instruction Type:Provider Instructions for Treatment How to access health informa tion online Indication:UTI symptoms Start:19-Apr-2016 Instruction Type:Patient Education How to access health informa tion online - Detail Indication:UTI symptoms Start:19-Apr-2016 Instruction Type:Patient Education Patient Instructions Indication:UTI symptoms Start:19-Apr-2016 Instruction Type:Provider Instructions for Treatment How to access health informa tion online Indication:Sorethroat Start:14-Mar-2016 Instruction Type:Patient Education How to access health informa tion online - Detail Indication:Sorethroat Start:14-Mar-2016 Instruction Type:Patient Education Patient Instructions Indication:Sorethroat Start:14-Mar-2016 Instruction Type:Provider Instructions for Treatment How to access health informa tion online Indication:Impaired Fasting Glucose Start:11-Mar-2016 Instruction Type:Patient Education How to access health informa tion online - Detail Indication:Impaired Fasting Glucose Start:11-Mar-2016 Instruction Type:Patient Education Patient Instructions Indication:Impaired Fasting Glucose Start:11-Mar-2016 Instruction Type:Provider Instructions for Treatment How to access health informa tion online Indication:Impaired Fasting Glucose Start:09-Oct-2015 Instruction Type:Patient Education How to access health informa tion online - Detail Indication:Impaired Fasting Glucose Start:09-Oct-2015 Instruction Type:Patient Education Patient Instructions Indication:Impaired Fasting Glucose Start:09-Oct-2015 Instruction Type:Provider Instructions for Treatment Patient Instructions Indication:Impaired Fasting Glucose Start:21-Jun-2015 Instruction Type:Provider Instructions for Treatment How to access health informa tion online Indication:Poison debi Start:31-May-2015 Instruction Type:Patient Education How to access health informa tion online - Detail Indication:Poison debi Start:31-May-2015 Instruction Type:Patient Education Patient Instructions Indication:Poison debi Start:31-May-2015 Instruction Type:Provider Instructions for Treatment Patient Instructions Indication:Impaired Fasting Glucose Start:15-Feb-2015 Instruction Type:Provider Instructions for Treatment How to access health informa tion online Indication:Impaired Fasting Glucose Start:19-Oct-2014 Instruction Type:Patient Education How to access health informa tion online - Detail Indication:Impaired Fasting Glucose Start:19-Oct-2014 Instruction Type:Patient Education Patient Instructions Indication:Impaired Fasting Glucose Start:19-Oct-2014 Instruction Type:Provider Instructions for Treatment How to access health informa tion online Indication:Impaired Fasting Glucose Start:20-Jul-2014 Instruction Type:Patient Education How to access health informa tion online - Detail Indication:Impaired Fasting Glucose Start:20-Jul-2014 Instruction Type:Patient Education Patient Instructions Indication:Impaired Fasting Glucose Start:20-Jul-2014 Instruction Type:Provider Instructions for Treatment Patient Instructions Indication:Encounter for Medicare annual wellness exam Start:04-May-2014 Instruction Type:Provider Instructions for Treatment Patient Instructions Indication:Impaired Fasting Glucose Start:16-Mar-2014 Instruction Type:Provider Instructions for Treatment Patient Instructions Indication:Impaired Fasting Glucose Start:09-Nov-2013 Instruction Type:Provider Instructions for Treatment Patient Instructions Indication:Vaginal yeast infection Start:17-Aug-2013 Instruction Type:Provider Instructions for Treatment Patient Instructions Indication:Impaired Fasting Glucose Start:06-Aug-2013 Instruction Type:Provider Instructions for Treatment Patient Instructions Indication:Diverticulitis Start:30-Jun-2013 Instruction Type:Provider Instructions for Treatment Name Dates Details How to access health informa tion online Indication:Urinary frequency Start:14-Oct-2019 Instruction Type:Patient Education How to access health informa tion online - Detail Indication:Urinary frequency Start:14-Oct-2019 Instruction Type:Patient Education Patient Instructions Indication:Urinary frequency Start:14-Oct-2019 Instruction Type:Provider Instructions for Treatment How to access health informa tion online Indication:Urinary frequency Start:02-Dec-2018 Instruction Type:Patient Education How to access health informa tion online - Detail Indication:Urinary frequency Start:02-Dec-2018 Instruction Type:Patient Education Patient Instructions Indication:Urinary frequency Start:02-Dec-2018 Instruction Type:Provider Instructions for Treatment How to access health informa tion online Indication:Nonsmoker Start:27-Jul-2018 Instruction Type:Patient Education How to access health informa tion online - Detail Indication:Nonsmoker Start:27-Jul-2018 Instruction Type:Patient Education Patient Instructions Indication:Nonsmoker Start:27-Jul-2018 Instruction Type:Provider Instructions for Treatment How to access health informa tion online Indication:BMI 32.0-32.9,adult Start:16-Oct-2017 Instruction Type:Patient Education How to access health informa tion online - Detail Indication:BMI 32.0-32.9,adult Start:16-Oct-2017 Instruction Type:Patient Education Patient Instructions Indication:UTI (urinary tract infection) Start:16-Oct-2017 Instruction Type:Provider Instructions for Treatment DISCONTINUED - METABOLIC ESPITIA EL, COMPREHENSIVE (72305) Indication:Renal Insufficiency (Renamed from Impaired renal function) Start:18-Jul-2017 Instruction Type:Patient Education DISCONTINUED - [id number] ([id number]) Indication:Fatty liver Start:18-Jul-2017 Instruction Type:Patient Education DISCONTINUED - PTT (Activate d Partial Thromboplastin Time) ([id number]) Indication:Fatty liver Start:18-Jul-2017 Instruction Type:Patient Education DISCONTINUED - PT (PROTHROMB IN TIME) ([id number]) Indication:Fatty liver Start:18-Jul-2017 Instruction Type:Patient Education DISCONTINUED - LIPID PANEL ( [id number]) Indication:Hyperlipidemia Start:18-Jul-2017 Instruction Type:Patient Education How to access health informa tion online Indication:Dysuria Start:18-Jul-2017 Instruction Type:Patient Education How to access health informa tion online - Detail Indication:Dysuria Start:18-Jul-2017 Instruction Type:Patient Education Patient Instructions Indication:Dysuria Start:18-Jul-2017 Instruction Type:Provider Instructions for Treatment How to access health informa tion online Indication:UTI symptoms Start:16-Dec-2016 Instruction Type:Patient Education How to access health informa tion online - Detail Indication:UTI symptoms Start:16-Dec-2016 Instruction Type:Patient Education Patient Instructions Indication:UTI symptoms Start:16-Dec-2016 Instruction Type:Provider Instructions for Treatment How to access health informa tion online Indication:UTI symptoms Start:23-Sep-2016 Instruction Type:Patient Education How to access health informa tion online - Detail Indication:UTI symptoms Start:23-Sep-2016 Instruction Type:Patient Education Patient Instructions Indication:UTI symptoms Start:23-Sep-2016 Instruction Type:Provider Instructions for Treatment How to access health informa tion online Indication:Impaired Fasting Glucose Start:06-Aug-2016 Instruction Type:Patient Education How to access health informa tion online - Detail Indication:Impaired Fasting Glucose Start:06-Aug-2016 Instruction Type:Patient Education Patient Instructions Indication:Impaired Fasting Glucose Start:06-Aug-2016 Instruction Type:Provider Instructions for Treatment How to access health informa tion online Indication:UTI symptoms Start:02-May-2016 Instruction Type:Patient Education How to access health informa tion online - Detail Indication:UTI symptoms Start:02-May-2016 Instruction Type:Patient Education Patient Instructions Indication:UTI symptoms Start:02-May-2016 Instruction Type:Provider Instructions for Treatment How to access health informa tion online Indication:UTI symptoms Start:19-Apr-2016 Instruction Type:Patient Education How to access health informa tion online - Detail Indication:UTI symptoms Start:19-Apr-2016 Instruction Type:Patient Education Patient Instructions Indication:UTI symptoms Start:19-Apr-2016 Instruction Type:Provider Instructions for Treatment How to access health informa tion online Indication:Sorethroat Start:14-Mar-2016 Instruction Type:Patient Education How to access health informa tion online - Detail Indication:Sorethroat Start:14-Mar-2016 Instruction Type:Patient Education Patient Instructions Indication:Sorethroat Start:14-Mar-2016 Instruction Type:Provider Instructions for Treatment How to access health informa tion online Indication:Impaired Fasting Glucose Start:11-Mar-2016 Instruction Type:Patient Education How to access health informa tion online - Detail Indication:Impaired Fasting Glucose Start:11-Mar-2016 Instruction Type:Patient Education Patient Instructions Indication:Impaired Fasting Glucose Start:11-Mar-2016 Instruction Type:Provider Instructions for Treatment How to access health informa tion online Indication:Impaired Fasting Glucose Start:09-Oct-2015 Instruction Type:Patient Education How to access health informa tion online - Detail Indication:Impaired Fasting Glucose Start:09-Oct-2015 Instruction Type:Patient Education Patient Instructions Indication:Impaired Fasting Glucose Start:09-Oct-2015 Instruction Type:Provider Instructions for Treatment Patient Instructions Indication:Impaired Fasting Glucose Start:21-Jun-2015 Instruction Type:Provider Instructions for Treatment How to access health informa tion online Indication:Poison debi Start:31-May-2015 Instruction Type:Patient Education How to access health informa tion online - Detail Indication:Poison debi Start:31-May-2015 Instruction Type:Patient Education Patient Instructions Indication:Poison debi Start:31-May-2015 Instruction Type:Provider Instructions for Treatment Patient Instructions Indication:Impaired Fasting Glucose Start:15-Feb-2015 Instruction Type:Provider Instructions for Treatment How to access health informa tion online Indication:Impaired Fasting Glucose Start:19-Oct-2014 Instruction Type:Patient Education How to access health informa tion online - Detail Indication:Impaired Fasting Glucose Start:19-Oct-2014 Instruction Type:Patient Education Patient Instructions Indication:Impaired Fasting Glucose Start:19-Oct-2014 Instruction Type:Provider Instructions for Treatment How to access health informa tion online Indication:Impaired Fasting Glucose Start:20-Jul-2014 Instruction Type:Patient Education How to access health informa tion online - Detail Indication:Impaired Fasting Glucose Start:20-Jul-2014 Instruction Type:Patient Education Patient Instructions Indication:Impaired Fasting Glucose Start:20-Jul-2014 Instruction Type:Provider Instructions for Treatment Patient Instructions Indication:Encounter for Medicare annual wellness exam Start:04-May-2014 Instruction Type:Provider Instructions for Treatment Patient Instructions Indication:Impaired Fasting Glucose Start:16-Mar-2014 Instruction Type:Provider Instructions for Treatment Patient Instructions Indication:Impaired Fasting Glucose Start:09-Nov-2013 Instruction Type:Provider Instructions for Treatment Patient Instructions Indication:Vaginal yeast infection Start:17-Aug-2013 Instruction Type:Provider Instructions for Treatment Patient Instructions Indication:Impaired Fasting Glucose Start:06-Aug-2013 Instruction Type:Provider Instructions for Treatment Patient Instructions Indication:Diverticulitis Start:30-Jun-2013 Instruction Type:Provider Instructions for Treatment Name Dates Details How to access health informa tion online Indication:Nonsmoker Start:21-Jun-2020 Instruction Type:Patient Education How to access health informa tion online - Detail Indication:Nonsmoker Start:21-Jun-2020 Instruction Type:Patient Education Patient Instructions Indication:BMI 31.0-31.9,adult Start:21-Jun-2020 Instruction Type:Provider Instructions for Treatment How to access health informa tion online Indication:Nonsmoker Start:01-Mar-2020 Instruction Type:Patient Education How to access health informa tion online - Detail Indication:Nonsmoker Start:01-Mar-2020 Instruction Type:Patient Education Patient Instructions Indication:Nonsmoker Start:01-Mar-2020 Instruction Type:Provider Instructions for Treatment How to access health informa tion online Indication:BMI 32.0-32.9,adult Start:28-Feb-2020 Instruction Type:Patient Education How to access health informa tion online - Detail Indication:BMI 32.0-32.9,adult Start:28-Feb-2020 Instruction Type:Patient Education Patient Instructions Indication:BMI 32.0-32.9,adult Start:28-Feb-2020 Instruction Type:Provider Instructions for Treatment How to access health informa tion online Indication:Urinary frequency Start:14-Oct-2019 Instruction Type:Patient Education How to access health informa tion online - Detail Indication:Urinary frequency Start:14-Oct-2019 Instruction Type:Patient Education Patient Instructions Indication:Urinary frequency Start:14-Oct-2019 Instruction Type:Provider Instructions for Treatment How to access health informa tion online Indication:Urinary frequency Start:02-Dec-2018 Instruction Type:Patient Education How to access health informa tion online - Detail Indication:Urinary frequency Start:02-Dec-2018 Instruction Type:Patient Education Patient Instructions Indication:Urinary frequency Start:02-Dec-2018 Instruction Type:Provider Instructions for Treatment How to access health informa tion online Indication:Nonsmoker Start:27-Jul-2018 Instruction Type:Patient Education How to access health informa tion online - Detail Indication:Nonsmoker Start:27-Jul-2018 Instruction Type:Patient Education Patient Instructions Indication:Nonsmoker Start:27-Jul-2018 Instruction Type:Provider Instructions for Treatment How to access health informa tion online Indication:BMI 32.0-32.9,adult Start:16-Oct-2017 Instruction Type:Patient Education How to access health informa tion online - Detail Indication:BMI 32.0-32.9,adult Start:16-Oct-2017 Instruction Type:Patient Education Patient Instructions Indication:UTI (urinary tract infection) Start:16-Oct-2017 Instruction Type:Provider Instructions for Treatment DISCONTINUED - METABOLIC ESPITIA EL, COMPREHENSIVE ([id number]) Indication:Renal Insufficiency (Renamed from Impaired renal function) Start:18-Jul-2017 Instruction Type:Patient Education DISCONTINUED - [id number] ([id number]) Indication:Fatty liver Start:18-Jul-2017 Instruction Type:Patient Education DISCONTINUED - PTT (Activate d Partial Thromboplastin Time) ([id number]) Indication:Fatty liver Start:18-Jul-2017 Instruction Type:Patient Education DISCONTINUED - PT (PROTHROMB IN TIME) ([id number]) Indication:Fatty liver Start:18-Jul-2017 Instruction Type:Patient Education DISCONTINUED - LIPID PANEL ( [id number]) Indication:Hyperlipidemia Start:18-Jul-2017 Instruction Type:Patient Education How to access health informa tion online Indication:Dysuria Start:18-Jul-2017 Instruction Type:Patient Education How to access health informa tion online - Detail Indication:Dysuria Start:18-Jul-2017 Instruction Type:Patient Education Patient Instructions Indication:Dysuria Start:18-Jul-2017 Instruction Type:Provider Instructions for Treatment How to access health informa tion online Indication:UTI symptoms Start:16-Dec-2016 Instruction Type:Patient Education How to access health informa tion online - Detail Indication:UTI symptoms Start:16-Dec-2016 Instruction Type:Patient Education Patient Instructions Indication:UTI symptoms Start:16-Dec-2016 Instruction Type:Provider Instructions for Treatment How to access health informa tion online Indication:UTI symptoms Start:23-Sep-2016 Instruction Type:Patient Education How to access health informa tion online - Detail Indication:UTI symptoms Start:23-Sep-2016 Instruction Type:Patient Education Patient Instructions Indication:UTI symptoms Start:23-Sep-2016 Instruction Type:Provider Instructions for Treatment How to access health informa tion online Indication:Impaired Fasting Glucose Start:06-Aug-2016 Instruction Type:Patient Education How to access health informa tion online - Detail Indication:Impaired Fasting Glucose Start:06-Aug-2016 Instruction Type:Patient Education Patient Instructions Indication:Impaired Fasting Glucose Start:06-Aug-2016 Instruction Type:Provider Instructions for Treatment How to access health informa tion online Indication:UTI symptoms Start:02-May-2016 Instruction Type:Patient Education How to access health informa tion online - Detail Indication:UTI symptoms Start:02-May-2016 Instruction Type:Patient Education Patient Instructions Indication:UTI symptoms Start:02-May-2016 Instruction Type:Provider Instructions for Treatment How to access health informa tion online Indication:UTI symptoms Start:19-Apr-2016 Instruction Type:Patient Education How to access health informa tion online - Detail Indication:UTI symptoms Start:19-Apr-2016 Instruction Type:Patient Education Patient Instructions Indication:UTI symptoms Start:19-Apr-2016 Instruction Type:Provider Instructions for Treatment How to access health informa tion online Indication:Sorethroat Start:14-Mar-2016 Instruction Type:Patient Education How to access health informa tion online - Detail Indication:Sorethroat Start:14-Mar-2016 Instruction Type:Patient Education Patient Instructions Indication:Sorethroat Start:14-Mar-2016 Instruction Type:Provider Instructions for Treatment How to access health informa tion online Indication:Impaired Fasting Glucose Start:11-Mar-2016 Instruction Type:Patient Education How to access health informa tion online - Detail Indication:Impaired Fasting Glucose Start:11-Mar-2016 Instruction Type:Patient Education Patient Instructions Indication:Impaired Fasting Glucose Start:11-Mar-2016 Instruction Type:Provider Instructions for Treatment How to access health informa tion online Indication:Impaired Fasting Glucose Start:09-Oct-2015 Instruction Type:Patient Education How to access health informa tion online - Detail Indication:Impaired Fasting Glucose Start:09-Oct-2015 Instruction Type:Patient Education Patient Instructions Indication:Impaired Fasting Glucose Start:09-Oct-2015 Instruction Type:Provider Instructions for Treatment Patient Instructions Indication:Impaired Fasting Glucose Start:21-Jun-2015 Instruction Type:Provider Instructions for Treatment How to access health informa tion online Indication:Poison debi Start:31-May-2015 Instruction Type:Patient Education How to access health informa tion online - Detail Indication:Poison debi Start:31-May-2015 Instruction Type:Patient Education Patient Instructions Indication:Poison debi Start:31-May-2015 Instruction Type:Provider Instructions for Treatment Patient Instructions Indication:Impaired Fasting Glucose Start:15-Feb-2015 Instruction Type:Provider Instructions for Treatment How to access health informa tion online Indication:Impaired Fasting Glucose Start:19-Oct-2014 Instruction Type:Patient Education How to access health informa tion online - Detail Indication:Impaired Fasting Glucose Start:19-Oct-2014 Instruction Type:Patient Education Patient Instructions Indication:Impaired Fasting Glucose Start:19-Oct-2014 Instruction Type:Provider Instructions for Treatment How to access health informa tion online Indication:Impaired Fasting Glucose Start:20-Jul-2014 Instruction Type:Patient Education How to access health informa tion online - Detail Indication:Impaired Fasting Glucose Start:20-Jul-2014 Instruction Type:Patient Education Patient Instructions Indication:Impaired Fasting Glucose Start:20-Jul-2014 Instruction Type:Provider Instructions for Treatment Patient Instructions Indication:Encounter for Medicare annual wellness exam Start:04-May-2014 Instruction Type:Provider Instructions for Treatment Patient Instructions Indication:Impaired Fasting Glucose Start:16-Mar-2014 Instruction Type:Provider Instructions for Treatment Patient Instructions Indication:Impaired Fasting Glucose Start:09-Nov-2013 Instruction Type:Provider Instructions for Treatment Patient Instructions Indication:Vaginal yeast infection Start:17-Aug-2013 Instruction Type:Provider Instructions for Treatment Patient Instructions Indication:Impaired Fasting Glucose Start:06-Aug-2013 Instruction Type:Provider Instructions for Treatment Patient Instructions Indication:Diverticulitis Start:30-Jun-2013 Instruction Type:Provider Instructions for Treatment Name Dates Details How to access health informa tion online Indication:Nonsmoker Start:21-Jun-2020 Instruction Type:Patient Education How to access health informa tion online - Detail Indication:Nonsmoker Start:21-Jun-2020 Instruction Type:Patient Education Patient Instructions Indication:BMI 31.0-31.9,adult Start:21-Jun-2020 Instruction Type:Provider Instructions for Treatment How to access health informa tion online Indication:Nonsmoker Start:01-Mar-2020 Instruction Type:Patient Education How to access health informa tion online - Detail Indication:Nonsmoker Start:01-Mar-2020 Instruction Type:Patient Education Patient Instructions Indication:Nonsmoker Start:01-Mar-2020 Instruction Type:Provider Instructions for Treatment How to access health informa tion online Indication:BMI 32.0-32.9,adult Start:28-Feb-2020 Instruction Type:Patient Education How to access health informa tion online - Detail Indication:BMI 32.0-32.9,adult Start:28-Feb-2020 Instruction Type:Patient Education Patient Instructions Indication:BMI 32.0-32.9,adult Start:28-Feb-2020 Instruction Type:Provider Instructions for Treatment How to access health informa tion online Indication:Urinary frequency Start:14-Oct-2019 Instruction Type:Patient Education How to access health informa tion online - Detail Indication:Urinary frequency Start:14-Oct-2019 Instruction Type:Patient Education Patient Instructions Indication:Urinary frequency Start:14-Oct-2019 Instruction Type:Provider Instructions for Treatment How to access health informa tion online Indication:Urinary frequency Start:02-Dec-2018 Instruction Type:Patient Education How to access health informa tion online - Detail Indication:Urinary frequency Start:02-Dec-2018 Instruction Type:Patient Education Patient Instructions Indication:Urinary frequency Start:02-Dec-2018 Instruction Type:Provider Instructions for Treatment How to access health informa tion online Indication:Nonsmoker Start:27-Jul-2018 Instruction Type:Patient Education How to access health informa tion online - Detail Indication:Nonsmoker Start:27-Jul-2018 Instruction Type:Patient Education Patient Instructions Indication:Nonsmoker Start:27-Jul-2018 Instruction Type:Provider Instructions for Treatment How to access health informa tion online Indication:BMI 32.0-32.9,adult Start:16-Oct-2017 Instruction Type:Patient Education How to access health informa tion online - Detail Indication:BMI 32.0-32.9,adult Start:16-Oct-2017 Instruction Type:Patient Education Patient Instructions Indication:UTI (urinary tract infection) Start:16-Oct-2017 Instruction Type:Provider Instructions for Treatment DISCONTINUED - METABOLIC ESPITIA EL, COMPREHENSIVE ([id number]) Indication:Renal Insufficiency (Renamed from Impaired renal function) Start:18-Jul-2017 Instruction Type:Patient Education DISCONTINUED - [id number] ([id number]) Indication:Fatty liver Start:18-Jul-2017 Instruction Type:Patient Education DISCONTINUED - PTT (Activate d Partial Thromboplastin Time) ([id number]) Indication:Fatty liver Start:18-Jul-2017 Instruction Type:Patient Education DISCONTINUED - PT (PROTHROMB IN TIME) ([id number]) Indication:Fatty liver Start:18-Jul-2017 Instruction Type:Patient Education DISCONTINUED - LIPID PANEL ( [id number]) Indication:Hyperlipidemia Start:18-Jul-2017 Instruction Type:Patient Education How to access health informa tion online Indication:Dysuria Start:18-Jul-2017 Instruction Type:Patient Education How to access health informa tion online - Detail Indication:Dysuria Start:18-Jul-2017 Instruction Type:Patient Education Patient Instructions Indication:Dysuria Start:18-Jul-2017 Instruction Type:Provider Instructions for Treatment How to access health informa tion online Indication:UTI symptoms Start:16-Dec-2016 Instruction Type:Patient Education How to access health informa tion online - Detail Indication:UTI symptoms Start:16-Dec-2016 Instruction Type:Patient Education Patient Instructions Indication:UTI symptoms Start:16-Dec-2016 Instruction Type:Provider Instructions for Treatment How to access health informa tion online Indication:UTI symptoms Start:23-Sep-2016 Instruction Type:Patient Education How to access health informa tion online - Detail Indication:UTI symptoms Start:23-Sep-2016 Instruction Type:Patient Education Patient Instructions Indication:UTI symptoms Start:23-Sep-2016 Instruction Type:Provider Instructions for Treatment How to access health informa tion online Indication:Impaired Fasting Glucose Start:06-Aug-2016 Instruction Type:Patient Education How to access health informa tion online - Detail Indication:Impaired Fasting Glucose Start:06-Aug-2016 Instruction Type:Patient Education Patient Instructions Indication:Impaired Fasting Glucose Start:06-Aug-2016 Instruction Type:Provider Instructions for Treatment How to access health informa tion online Indication:UTI symptoms Start:02-May-2016 Instruction Type:Patient Education How to access health informa tion online - Detail Indication:UTI symptoms Start:02-May-2016 Instruction Type:Patient Education Patient Instructions Indication:UTI symptoms Start:02-May-2016 Instruction Type:Provider Instructions for Treatment How to access health informa tion online Indication:UTI symptoms Start:19-Apr-2016 Instruction Type:Patient Education How to access health informa tion online - Detail Indication:UTI symptoms Start:19-Apr-2016 Instruction Type:Patient Education Patient Instructions Indication:UTI symptoms Start:19-Apr-2016 Instruction Type:Provider Instructions for Treatment How to access health informa tion online Indication:Sorethroat Start:14-Mar-2016 Instruction Type:Patient Education How to access health informa tion online - Detail Indication:Sorethroat Start:14-Mar-2016 Instruction Type:Patient Education Patient Instructions Indication:Sorethroat Start:14-Mar-2016 Instruction Type:Provider Instructions for Treatment How to access health informa tion online Indication:Impaired Fasting Glucose Start:11-Mar-2016 Instruction Type:Patient Education How to access health informa tion online - Detail Indication:Impaired Fasting Glucose Start:11-Mar-2016 Instruction Type:Patient Education Patient Instructions Indication:Impaired Fasting Glucose Start:11-Mar-2016 Instruction Type:Provider Instructions for Treatment How to access health informa tion online Indication:Impaired Fasting Glucose Start:09-Oct-2015 Instruction Type:Patient Education How to access health informa tion online - Detail Indication:Impaired Fasting Glucose Start:09-Oct-2015 Instruction Type:Patient Education Patient Instructions Indication:Impaired Fasting Glucose Start:09-Oct-2015 Instruction Type:Provider Instructions for Treatment Patient Instructions Indication:Impaired Fasting Glucose Start:21-Jun-2015 Instruction Type:Provider Instructions for Treatment How to access health informa tion online Indication:Poison debi Start:31-May-2015 Instruction Type:Patient Education How to access health informa tion online - Detail Indication:Poison debi Start:31-May-2015 Instruction Type:Patient Education Patient Instructions Indication:Poison debi Start:31-May-2015 Instruction Type:Provider Instructions for Treatment Patient Instructions Indication:Impaired Fasting Glucose Start:15-Feb-2015 Instruction Type:Provider Instructions for Treatment How to access health informa tion online Indication:Impaired Fasting Glucose Start:19-Oct-2014 Instruction Type:Patient Education How to access health informa tion online - Detail Indication:Impaired Fasting Glucose Start:19-Oct-2014 Instruction Type:Patient Education Patient Instructions Indication:Impaired Fasting Glucose Start:19-Oct-2014 Instruction Type:Provider Instructions for Treatment How to access health informa tion online Indication:Impaired Fasting Glucose Start:20-Jul-2014 Instruction Type:Patient Education How to access health informa tion online - Detail Indication:Impaired Fasting Glucose Start:20-Jul-2014 Instruction Type:Patient Education Patient Instructions Indication:Impaired Fasting Glucose Start:20-Jul-2014 Instruction Type:Provider Instructions for Treatment Patient Instructions Indication:Encounter for Medicare annual wellness exam Start:04-May-2014 Instruction Type:Provider Instructions for Treatment Patient Instructions Indication:Impaired Fasting Glucose Start:16-Mar-2014 Instruction Type:Provider Instructions for Treatment Patient Instructions Indication:Impaired Fasting Glucose Start:09-Nov-2013 Instruction Type:Provider Instructions for Treatment Patient Instructions Indication:Vaginal yeast infection Start:17-Aug-2013 Instruction Type:Provider Instructions for Treatment Patient Instructions Indication:Impaired Fasting Glucose Start:06-Aug-2013 Instruction Type:Provider Instructions for Treatment Patient Instructions Indication:Diverticulitis Start:30-Jun-2013 Instruction Type:Provider Instructions for Treatment Name Dates Details How to access health informa tion online Indication:Nonsmoker Start:18-Sep-2020 Instruction Type:Patient Education How to access health informa tion online - Detail Indication:Nonsmoker Start:18-Sep-2020 Instruction Type:Patient Education Patient Instructions Indication:Nonsmoker Start:18-Sep-2020 Instruction Type:Provider Instructions for Treatment How to access health informa tion online Indication:Nonsmoker Start:21-Jun-2020 Instruction Type:Patient Education How to access health informa tion online - Detail Indication:Nonsmoker Start:21-Jun-2020 Instruction Type:Patient Education Patient Instructions Indication:BMI 31.0-31.9,adult Start:21-Jun-2020 Instruction Type:Provider Instructions for Treatment How to access health informa tion online Indication:Nonsmoker Start:01-Mar-2020 Instruction Type:Patient Education How to access health informa tion online - Detail Indication:Nonsmoker Start:01-Mar-2020 Instruction Type:Patient Education Patient Instructions Indication:Nonsmoker Start:01-Mar-2020 Instruction Type:Provider Instructions for Treatment How to access health informa tion online Indication:BMI 32.0-32.9,adult Start:28-Feb-2020 Instruction Type:Patient Education How to access health informa tion online - Detail Indication:BMI 32.0-32.9,adult Start:28-Feb-2020 Instruction Type:Patient Education Patient Instructions Indication:BMI 32.0-32.9,adult Start:28-Feb-2020 Instruction Type:Provider Instructions for Treatment How to access health informa tion online Indication:Urinary frequency Start:14-Oct-2019 Instruction Type:Patient Education How to access health informa tion online - Detail Indication:Urinary frequency Start:14-Oct-2019 Instruction Type:Patient Education Patient Instructions Indication:Urinary frequency Start:14-Oct-2019 Instruction Type:Provider Instructions for Treatment How to access health informa tion online Indication:Urinary frequency Start:02-Dec-2018 Instruction Type:Patient Education How to access health informa tion online - Detail Indication:Urinary frequency Start:02-Dec-2018 Instruction Type:Patient Education Patient Instructions Indication:Urinary frequency Start:02-Dec-2018 Instruction Type:Provider Instructions for Treatment How to access health informa tion online Indication:Nonsmoker Start:27-Jul-2018 Instruction Type:Patient Education How to access health informa tion online - Detail Indication:Nonsmoker Start:27-Jul-2018 Instruction Type:Patient Education Patient Instructions Indication:Nonsmoker Start:27-Jul-2018 Instruction Type:Provider Instructions for Treatment How to access health informa tion online Indication:BMI 32.0-32.9,adult Start:16-Oct-2017 Instruction Type:Patient Education How to access health informa tion online - Detail Indication:BMI 32.0-32.9,adult Start:16-Oct-2017 Instruction Type:Patient Education Patient Instructions Indication:UTI (urinary tract infection) Start:16-Oct-2017 Instruction Type:Provider Instructions for Treatment DISCONTINUED - METABOLIC ESPITIA EL, COMPREHENSIVE ([id number]) Indication:Renal Insufficiency (Renamed from Impaired renal function) Start:18-Jul-2017 Instruction Type:Patient Education DISCONTINUED - [id number] ([id number]) Indication:Fatty liver Start:18-Jul-2017 Instruction Type:Patient Education DISCONTINUED - PTT (Activate d Partial Thromboplastin Time) ([id number]) Indication:Fatty liver Start:18-Jul-2017 Instruction Type:Patient Education DISCONTINUED - PT (PROTHROMB IN TIME) ([id number]) Indication:Fatty liver Start:18-Jul-2017 Instruction Type:Patient Education DISCONTINUED - LIPID PANEL ( [id number]) Indication:Hyperlipidemia Start:18-Jul-2017 Instruction Type:Patient Education How to access health informa tion online Indication:Dysuria Start:18-Jul-2017 Instruction Type:Patient Education How to access health informa tion online - Detail Indication:Dysuria Start:18-Jul-2017 Instruction Type:Patient Education Patient Instructions Indication:Dysuria Start:18-Jul-2017 Instruction Type:Provider Instructions for Treatment How to access health informa tion online Indication:UTI symptoms Start:16-Dec-2016 Instruction Type:Patient Education How to access health informa tion online - Detail Indication:UTI symptoms Start:16-Dec-2016 Instruction Type:Patient Education Patient Instructions Indication:UTI symptoms Start:16-Dec-2016 Instruction Type:Provider Instructions for Treatment How to access health informa tion online Indication:UTI symptoms Start:23-Sep-2016 Instruction Type:Patient Education How to access health informa tion online - Detail Indication:UTI symptoms Start:23-Sep-2016 Instruction Type:Patient Education Patient Instructions Indication:UTI symptoms Start:23-Sep-2016 Instruction Type:Provider Instructions for Treatment How to access health informa tion online Indication:Impaired Fasting Glucose Start:06-Aug-2016 Instruction Type:Patient Education How to access health informa tion online - Detail Indication:Impaired Fasting Glucose Start:06-Aug-2016 Instruction Type:Patient Education Patient Instructions Indication:Impaired Fasting Glucose Start:06-Aug-2016 Instruction Type:Provider Instructions for Treatment How to access health informa tion online Indication:UTI symptoms Start:02-May-2016 Instruction Type:Patient Education How to access health informa tion online - Detail Indication:UTI symptoms Start:02-May-2016 Instruction Type:Patient Education Patient Instructions Indication:UTI symptoms Start:02-May-2016 Instruction Type:Provider Instructions for Treatment How to access health informa tion online Indication:UTI symptoms Start:19-Apr-2016 Instruction Type:Patient Education How to access health informa tion online - Detail Indication:UTI symptoms Start:19-Apr-2016 Instruction Type:Patient Education Patient Instructions Indication:UTI symptoms Start:19-Apr-2016 Instruction Type:Provider Instructions for Treatment How to access health informa tion online Indication:Sorethroat Start:14-Mar-2016 Instruction Type:Patient Education How to access health informa tion online - Detail Indication:Sorethroat Start:14-Mar-2016 Instruction Type:Patient Education Patient Instructions Indication:Sorethroat Start:14-Mar-2016 Instruction Type:Provider Instructions for Treatment How to access health informa tion online Indication:Impaired Fasting Glucose Start:11-Mar-2016 Instruction Type:Patient Education How to access health informa tion online - Detail Indication:Impaired Fasting Glucose Start:11-Mar-2016 Instruction Type:Patient Education Patient Instructions Indication:Impaired Fasting Glucose Start:11-Mar-2016 Instruction Type:Provider Instructions for Treatment How to access health informa [place] online Indication:Impaired Fasting Glucose Start:09-Oct-2015 Instruction Type:Patient Education How to access health informa tion online - Detail Indication:Impaired Fasting Glucose Start:09-Oct-2015 Instruction Type:Patient Education Patient Instructions Indication:Impaired Fasting Glucose Start:09-Oct-2015 Instruction Type:Provider Instructions for Treatment Patient Instructions Indication:Impaired Fasting Glucose Start:21-Jun-2015 Instruction Type:Provider Instructions for Treatment How to access health informa tion online Indication:Poison debi Start:31-May-2015 Instruction Type:Patient Education How to access health informa tion online - Detail Indication:Poison debi Start:31-May-2015 Instruction Type:Patient Education Patient Instructions Indication:Poison debi Start:31-May-2015 Instruction Type:Provider Instructions for Treatment Patient Instructions Indication:Impaired Fasting Glucose Start:15-Feb-2015 Instruction Type:Provider Instructions for Treatment How to access health informa tion online Indication:Impaired Fasting Glucose Start:19-Oct-2014 Instruction Type:Patient Education How to access health informa tion online - Detail Indication:Impaired Fasting Glucose Start:19-Oct-2014 Instruction Type:Patient Education Patient Instructions Indication:Impaired Fasting Glucose Start:19-Oct-2014 Instruction Type:Provider Instructions for Treatment How to access health informa [place] online Indication:Impaired Fasting Glucose Start:20-Jul-2014 Instruction Type:Patient Education How to access health informa tion online - Detail Indication:Impaired Fasting Glucose Start:20-Jul-2014 Instruction Type:Patient Education Patient Instructions Indication:Impaired Fasting Glucose Start:20-Jul-2014 Instruction Type:Provider Instructions for Treatment Patient Instructions Indication:Encounter for Medicare annual wellness exam Start:04-May-2014 Instruction Type:Provider Instructions for Treatment Patient Instructions Indication:Impaired Fasting Glucose Start:16-Mar-2014 Instruction Type:Provider Instructions for Treatment Patient Instructions Indication:Impaired Fasting Glucose Start:09-Nov-2013 Instruction Type:Provider Instructions for Treatment Patient Instructions Indication:Vaginal yeast infection Start:17-Aug-2013 Instruction Type:Provider Instructions for Treatment Patient Instructions Indication:Impaired Fasting Glucose Start:06-Aug-2013 Instruction Type:Provider Instructions for Treatment Patient Instructions Indication:Diverticulitis Start:30-Jun-2013 Instruction Type:Provider Instructions for Treatment Name Dates Details How to access [employer] Indication:Nonsmoker Start:23-Oct-2020 Instruction Type:Patient Education How to access health informa tion online - Detail Indication:Nonsmoker Start:23-Oct-2020 Instruction Type:Patient Education Patient Instructions Indication:Nonsmoker Start:23-Oct-2020 Instruction Type:Provider Instructions for Treatment How to access health informa tion online Indication:Nonsmoker Start:18-Sep-2020 Instruction Type:Patient Education How to access health informa tion online - Detail Indication:Nonsmoker Start:18-Sep-2020 Instruction Type:Patient Education Patient Instructions Indication:Nonsmoker Start:18-Sep-2020 Instruction Type:Provider Instructions for Treatment How to access health informa tion online Indication:Nonsmoker Start:21-Jun-2020 Instruction Type:Patient Education How to access health informa tion online - Detail Indication:Nonsmoker Start:21-Jun-2020 Instruction Type:Patient Education Patient Instructions Indication:BMI 31.0-31.9,adult Start:21-Jun-2020 Instruction Type:Provider Instructions for Treatment How to access health informa tion online Indication:Nonsmoker Start:01-Mar-2020 Instruction Type:Patient Education How to access health informa tion online - Detail Indication:Nonsmoker Start:01-Mar-2020 Instruction Type:Patient Education Patient Instructions Indication:Nonsmoker Start:01-Mar-2020 Instruction Type:Provider Instructions for Treatment How to access health informa tion online Indication:BMI 32.0-32.9,adult Start:28-Feb-2020 Instruction Type:Patient Education How to access health informa tion online - Detail Indication:BMI 32.0-32.9,adult Start:28-Feb-2020 Instruction Type:Patient Education Patient Instructions Indication:BMI 32.0-32.9,adult Start:28-Feb-2020 Instruction Type:Provider Instructions for Treatment How to access health informa tion online Indication:Urinary frequency Start:14-Oct-2019 Instruction Type:Patient Education How to access health informa tion online - Detail Indication:Urinary frequency Start:14-Oct-2019 Instruction Type:Patient Education Patient Instructions Indication:Urinary frequency Start:14-Oct-2019 Instruction Type:Provider Instructions for Treatment How to access health informa tion online Indication:Urinary frequency Start:02-Dec-2018 Instruction Type:Patient Education How to access health informa tion online - Detail Indication:Urinary frequency Start:02-Dec-2018 Instruction Type:Patient Education Patient Instructions Indication:Urinary frequency Start:02-Dec-2018 Instruction Type:Provider Instructions for Treatment How to access health informa tion online Indication:Nonsmoker Start:27-Jul-2018 Instruction Type:Patient Education How to access health informa tion online - Detail Indication:Nonsmoker Start:27-Jul-2018 Instruction Type:Patient Education Patient Instructions Indication:Nonsmoker Start:27-Jul-2018 Instruction Type:Provider Instructions for Treatment How to access health informa tion online Indication:BMI 32.0-32.9,adult Start:16-Oct-2017 Instruction Type:Patient Education How to access health informa tion online - Detail Indication:BMI 32.0-32.9,adult Start:16-Oct-2017 Instruction Type:Patient Education Patient Instructions Indication:UTI (urinary tract infection) Start:16-Oct-2017 Instruction Type:Provider Instructions for Treatment DISCONTINUED - METABOLIC ESPITIA EL, COMPREHENSIVE ([id number]) Indication:Renal Insufficiency (Renamed from Impaired renal function) Start:18-Jul-2017 Instruction Type:Patient Education DISCONTINUED - [id number] ([id number]) Indication:Fatty liver Start:18-Jul-2017 Instruction Type:Patient Education DISCONTINUED - PTT (Activate d Partial Thromboplastin Time) ([id number]) Indication:Fatty liver Start:18-Jul-2017 Instruction Type:Patient Education DISCONTINUED - PT (PROTHROMB IN TIME) ([id number]) Indication:Fatty liver Start:18-Jul-2017 Instruction Type:Patient Education DISCONTINUED - LIPID PANEL ( [id number]) Indication:Hyperlipidemia Start:18-Jul-2017 Instruction Type:Patient Education How to access health informa tion online Indication:Dysuria Start:18-Jul-2017 Instruction Type:Patient Education How to access health informa tion online - Detail Indication:Dysuria Start:18-Jul-2017 Instruction Type:Patient Education Patient Instructions Indication:Dysuria Start:18-Jul-2017 Instruction Type:Provider Instructions for Treatment How to access health informa tion online Indication:UTI symptoms Start:16-Dec-2016 Instruction Type:Patient Education How to access health informa tion online - Detail Indication:UTI symptoms Start:16-Dec-2016 Instruction Type:Patient Education Patient Instructions Indication:UTI symptoms Start:16-Dec-2016 Instruction Type:Provider Instructions for Treatment How to access health informa tion online Indication:UTI symptoms Start:23-Sep-2016 Instruction Type:Patient Education How to access health informa tion online - Detail Indication:UTI symptoms Start:23-Sep-2016 Instruction Type:Patient Education Patient Instructions Indication:UTI symptoms Start:23-Sep-2016 Instruction Type:Provider Instructions for Treatment How to access health informa tion online Indication:Impaired Fasting Glucose Start:06-Aug-2016 Instruction Type:Patient Education How to access health informa tion online - Detail Indication:Impaired Fasting Glucose Start:06-Aug-2016 Instruction Type:Patient Education Patient Instructions Indication:Impaired Fasting Glucose Start:06-Aug-2016 Instruction Type:Provider Instructions for Treatment How to access health informa tion online Indication:UTI symptoms Start:02-May-2016 Instruction Type:Patient Education How to access health informa tion online - Detail Indication:UTI symptoms Start:02-May-2016 Instruction Type:Patient Education Patient Instructions Indication:UTI symptoms Start:02-May-2016 Instruction Type:Provider Instructions for Treatment How to access health informa tion online Indication:UTI symptoms Start:19-Apr-2016 Instruction Type:Patient Education How to access health informa tion online - Detail Indication:UTI symptoms Start:19-Apr-2016 Instruction Type:Patient Education Patient Instructions Indication:UTI symptoms Start:19-Apr-2016 Instruction Type:Provider Instructions for Treatment How to access health informa tion online Indication:Sorethroat Start:14-Mar-2016 Instruction Type:Patient Education How to access health informa tion online - Detail Indication:Sorethroat Start:14-Mar-2016 Instruction Type:Patient Education Patient Instructions Indication:Sorethroat Start:14-Mar-2016 Instruction Type:Provider Instructions for Treatment How to access health informa tion online Indication:Impaired Fasting Glucose Start:11-Mar-2016 Instruction Type:Patient Education How to access health informa tion online - Detail Indication:Impaired Fasting Glucose Start:11-Mar-2016 Instruction Type:Patient Education Patient Instructions Indication:Impaired Fasting Glucose Start:11-Mar-2016 Instruction Type:Provider Instructions for Treatment How to access health informa tion online Indication:Impaired Fasting Glucose Start:09-Oct-2015 Instruction Type:Patient Education How to access health informa tion online - Detail Indication:Impaired Fasting Glucose Start:09-Oct-2015 Instruction Type:Patient Education Patient Instructions Indication:Impaired Fasting Glucose Start:09-Oct-2015 Instruction Type:Provider Instructions for Treatment Patient Instructions Indication:Impaired Fasting Glucose Start:21-Jun-2015 Instruction Type:Provider Instructions for Treatment How to access health informa tion online Indication:Poison debi Start:31-May-2015 Instruction Type:Patient Education How to access health informa tion online - Detail Indication:Poison debi Start:31-May-2015 Instruction Type:Patient Education Patient Instructions Indication:Poison debi Start:31-May-2015 Instruction Type:Provider Instructions for Treatment Patient Instructions Indication:Impaired Fasting Glucose Start:15-Feb-2015 Instruction Type:Provider Instructions for Treatment How to access health informa tion online Indication:Impaired Fasting Glucose Start:19-Oct-2014 Instruction Type:Patient Education How to access health informa tion online - Detail Indication:Impaired Fasting Glucose Start:19-Oct-2014 Instruction Type:Patient Education Patient Instructions Indication:Impaired Fasting Glucose Start:19-Oct-2014 Instruction Type:Provider Instructions for Treatment How to access health informa tion online Indication:Impaired Fasting Glucose Start:20-Jul-2014 Instruction Type:Patient Education How to access health informa tion online - Detail Indication:Impaired Fasting Glucose Start:20-Jul-2014 Instruction Type:Patient Education Patient Instructions Indication:Impaired Fasting Glucose Start:20-Jul-2014 Instruction Type:Provider Instructions for Treatment Patient Instructions Indication:Encounter for Medicare annual wellness exam Start:04-May-2014 Instruction Type:Provider Instructions for Treatment Patient Instructions Indication:Impaired Fasting Glucose Start:16-Mar-2014 Instruction Type:Provider Instructions for Treatment Patient Instructions Indication:Impaired Fasting Glucose Start:09-Nov-2013 Instruction Type:Provider Instructions for Treatment Patient Instructions Indication:Vaginal yeast infection Start:17-Aug-2013 Instruction Type:Provider Instructions for Treatment Patient Instructions Indication:Impaired Fasting Glucose Start:06-Aug-2013 Instruction Type:Provider Instructions for Treatment Patient Instructions Indication:Diverticulitis Start:30-Jun-2013 Instruction Type:Provider Instructions for Treatment Name Dates Details Patient Instructions Indication:BMI 32.0-32.9,adult Start:03-Jan-2021 Instruction Type:Provider Instructions for Treatment How to Access Health Informa tion Online using Patient Portal and [employer] Indication:BMI 32.0-32.9,adult Start:03-Jan-2021 Instruction Type:Patient Education How to access health informa tion online Indication:Nonsmoker Start:23-Oct-2020 Instruction Type:Patient Education How to access health informa tion online - Detail Indication:Nonsmoker Start:23-Oct-2020 Instruction Type:Patient Education Patient Instructions Indication:Nonsmoker Start:23-Oct-2020 Instruction Type:Provider Instructions for Treatment How to access health informa tion online Indication:Nonsmoker Start:18-Sep-2020 Instruction Type:Patient Education How to access health informa tion online - Detail Indication:Nonsmoker Start:18-Sep-2020 Instruction Type:Patient Education Patient Instructions Indication:Nonsmoker Start:18-Sep-2020 Instruction Type:Provider Instructions for Treatment How to access health informa tion online Indication:Nonsmoker Start:21-Jun-2020 Instruction Type:Patient Education How to access health informa tion online - Detail Indication:Nonsmoker Start:21-Jun-2020 Instruction Type:Patient Education Patient Instructions Indication:BMI 31.0-31.9,adult Start:21-Jun-2020 Instruction Type:Provider Instructions for Treatment How to access health informa tion online Indication:Nonsmoker Start:01-Mar-2020 Instruction Type:Patient Education How to access health informa tion online - Detail Indication:Nonsmoker Start:01-Mar-2020 Instruction Type:Patient Education Patient Instructions Indication:Nonsmoker Start:01-Mar-2020 Instruction Type:Provider Instructions for Treatment How to access health informa tion online Indication:BMI 32.0-32.9,adult Start:28-Feb-2020 Instruction Type:Patient Education How to access health informa tion online - Detail Indication:BMI 32.0-32.9,adult Start:28-Feb-2020 Instruction Type:Patient Education Patient Instructions Indication:BMI 32.0-32.9,adult Start:28-Feb-2020 Instruction Type:Provider Instructions for Treatment How to access health informa tion online Indication:Urinary frequency Start:14-Oct-2019 Instruction Type:Patient Education How to access health informa tion online - Detail Indication:Urinary frequency Start:14-Oct-2019 Instruction Type:Patient Education Patient Instructions Indication:Urinary frequency Start:14-Oct-2019 Instruction Type:Provider Instructions for Treatment How to access health informa tion online Indication:Urinary frequency Start:02-Dec-2018 Instruction Type:Patient Education How to access health informa tion online - Detail Indication:Urinary frequency Start:02-Dec-2018 Instruction Type:Patient Education Patient Instructions Indication:Urinary frequency Start:02-Dec-2018 Instruction Type:Provider Instructions for Treatment How to access health informa tion online Indication:Nonsmoker Start:27-Jul-2018 Instruction Type:Patient Education How to access health informa tion online - Detail Indication:Nonsmoker Start:27-Jul-2018 Instruction Type:Patient Education Patient Instructions Indication:Nonsmoker Start:27-Jul-2018 Instruction Type:Provider Instructions for Treatment How to access health informa tion online Indication:BMI 32.0-32.9,adult Start:16-Oct-2017 Instruction Type:Patient Education How to access health informa tion online - Detail Indication:BMI 32.0-32.9,adult Start:16-Oct-2017 Instruction Type:Patient Education Patient Instructions Indication:UTI (urinary tract infection) Start:16-Oct-2017 Instruction Type:Provider Instructions for Treatment DISCONTINUED - METABOLIC ESPITIA EL, COMPREHENSIVE ([id number]) Indication:Renal Insufficiency (Renamed from Impaired renal function) Start:18-Jul-2017 Instruction Type:Patient Education DISCONTINUED - [id number] ([id number]) Indication:Fatty liver Start:18-Jul-2017 Instruction Type:Patient Education DISCONTINUED - PTT (Activate d Partial Thromboplastin Time) ([id number]) Indication:Fatty liver Start:18-Jul-2017 Instruction Type:Patient Education DISCONTINUED - PT (PROTHROMB IN TIME) ([id number]) Indication:Fatty liver Start:18-Jul-2017 Instruction Type:Patient Education DISCONTINUED - LIPID PANEL ( [id number]) Indication:Hyperlipidemia Start:18-Jul-2017 Instruction Type:Patient Education How to access health informa tion online Indication:Dysuria Start:18-Jul-2017 Instruction Type:Patient Education How to access health informa tion online - Detail Indication:Dysuria Start:18-Jul-2017 Instruction Type:Patient Education Patient Instructions Indication:Dysuria Start:18-Jul-2017 Instruction Type:Provider Instructions for Treatment How to access health informa tion online Indication:UTI symptoms Start:16-Dec-2016 Instruction Type:Patient Education How to access health informa tion online - Detail Indication:UTI symptoms Start:16-Dec-2016 Instruction Type:Patient Education Patient Instructions Indication:UTI symptoms Start:16-Dec-2016 Instruction Type:Provider Instructions for Treatment How to access health informa tion online Indication:UTI symptoms Start:23-Sep-2016 Instruction Type:Patient Education How to access health informa tion online - Detail Indication:UTI symptoms Start:23-Sep-2016 Instruction Type:Patient Education Patient Instructions Indication:UTI symptoms Start:23-Sep-2016 Instruction Type:Provider Instructions for Treatment How to access health informa tion online Indication:Impaired Fasting Glucose Start:06-Aug-2016 Instruction Type:Patient Education How to access health informa tion online - Detail Indication:Impaired Fasting Glucose Start:06-Aug-2016 Instruction Type:Patient Education Patient Instructions Indication:Impaired Fasting Glucose Start:06-Aug-2016 Instruction Type:Provider Instructions for Treatment How to access health informa tion online Indication:UTI symptoms Start:02-May-2016 Instruction Type:Patient Education How to access health informa tion online - Detail Indication:UTI symptoms Start:02-May-2016 Instruction Type:Patient Education Patient Instructions Indication:UTI symptoms Start:02-May-2016 Instruction Type:Provider Instructions for Treatment How to access health informa tion online Indication:UTI symptoms Start:19-Apr-2016 Instruction Type:Patient Education How to access health informa tion online - Detail Indication:UTI symptoms Start:19-Apr-2016 Instruction Type:Patient Education Patient Instructions Indication:UTI symptoms Start:19-Apr-2016 Instruction Type:Provider Instructions for Treatment How to access health informa tion online Indication:Sorethroat Start:14-Mar-2016 Instruction Type:Patient Education How to access health informa tion online - Detail Indication:Sorethroat Start:14-Mar-2016 Instruction Type:Patient Education Patient Instructions Indication:Sorethroat Start:14-Mar-2016 Instruction Type:Provider Instructions for Treatment How to access health informa tion online Indication:Impaired Fasting Glucose Start:11-Mar-2016 Instruction Type:Patient Education How to access health informa tion online - Detail Indication:Impaired Fasting Glucose Start:11-Mar-2016 Instruction Type:Patient Education Patient Instructions Indication:Impaired Fasting Glucose Start:11-Mar-2016 Instruction Type:Provider Instructions for Treatment How to access health informa tion online Indication:Impaired Fasting Glucose Start:09-Oct-2015 Instruction Type:Patient Education How to access health informa tion online - Detail Indication:Impaired Fasting Glucose Start:09-Oct-2015 Instruction Type:Patient Education Patient Instructions Indication:Impaired Fasting Glucose Start:09-Oct-2015 Instruction Type:Provider Instructions for Treatment Patient Instructions Indication:Impaired Fasting Glucose Start:21-Jun-2015 Instruction Type:Provider Instructions for Treatment How to access health informa tion online Indication:Poison debi Start:31-May-2015 Instruction Type:Patient Education How to access health informa tion online - Detail Indication:Poison debi Start:31-May-2015 Instruction Type:Patient Education Patient Instructions Indication:Poison debi Start:31-May-2015 Instruction Type:Provider Instructions for Treatment Patient Instructions Indication:Impaired Fasting Glucose Start:15-Feb-2015 Instruction Type:Provider Instructions for Treatment How to access health informa tion online Indication:Impaired Fasting Glucose Start:19-Oct-2014 Instruction Type:Patient Education How to access health informa tion online - Detail Indication:Impaired Fasting Glucose Start:19-Oct-2014 Instruction Type:Patient Education Patient Instructions Indication:Impaired Fasting Glucose Start:19-Oct-2014 Instruction Type:Provider Instructions for Treatment How to access health informa tion online Indication:Impaired Fasting Glucose Start:20-Jul-2014 Instruction Type:Patient Education How to access health informa tion online - Detail Indication:Impaired Fasting Glucose Start:20-Jul-2014 Instruction Type:Patient Education Patient Instructions Indication:Impaired Fasting Glucose Start:20-Jul-2014 Instruction Type:Provider Instructions for Treatment Patient Instructions Indication:Encounter for Medicare annual wellness exam Start:04-May-2014 Instruction Type:Provider Instructions for Treatment Patient Instructions Indication:Impaired Fasting Glucose Start:16-Mar-2014 Instruction Type:Provider Instructions for Treatment Patient Instructions Indication:Impaired Fasting Glucose Start:09-Nov-2013 Instruction Type:Provider Instructions for Treatment Patient Instructions Indication:Vaginal yeast infection Start:17-Aug-2013 Instruction Type:Provider Instructions for Treatment Patient Instructions Indication:Impaired Fasting Glucose Start:06-Aug-2013 Instruction Type:Provider Instructions for Treatment Patient Instructions Indication:Diverticulitis Start:30-Jun-2013 Instruction Type:Provider Instructions for Treatment Name Dates Details Patient Instructions Indication:BMI 32.0-32.9,adult Start:30-Jan-2021 Instruction Type:Provider Instructions for Treatment How to Access Health Informa tion Online using Patient Portal and [employer] Apps Indication:BMI 32.0-32.9,adult Start:30-Jan-2021 Instruction Type:Patient Education Patient Instructions Indication:BMI 32.0-32.9,adult Start:03-Jan-2021 Instruction Type:Provider Instructions for Treatment How to Access Health Informa tion Online using Patient Portal and [employer] Apps Indication:BMI 32.0-32.9,adult Start:03-Jan-2021 Instruction Type:Patient Education How to access health informa tion online Indication:Nonsmoker Start:23-Oct-2020 Instruction Type:Patient Education How to access health informa tion online - Detail Indication:Nonsmoker Start:23-Oct-2020 Instruction Type:Patient Education Patient Instructions Indication:Nonsmoker Start:23-Oct-2020 Instruction Type:Provider Instructions for Treatment How to access health informa tion online Indication:Nonsmoker Start:18-Sep-2020 Instruction Type:Patient Education How to access health informa tion online - Detail Indication:Nonsmoker Start:18-Sep-2020 Instruction Type:Patient Education Patient Instructions Indication:Nonsmoker Start:18-Sep-2020 Instruction Type:Provider Instructions for Treatment How to access health informa tion online Indication:Nonsmoker Start:21-Jun-2020 Instruction Type:Patient Education How to access health informa tion online - Detail Indication:Nonsmoker Start:21-Jun-2020 Instruction Type:Patient Education Patient Instructions Indication:BMI 31.0-31.9,adult Start:21-Jun-2020 Instruction Type:Provider Instructions for Treatment How to access health informa tion online Indication:Nonsmoker Start:01-Mar-2020 Instruction Type:Patient Education How to access health informa tion online - Detail Indication:Nonsmoker Start:01-Mar-2020 Instruction Type:Patient Education Patient Instructions Indication:Nonsmoker Start:01-Mar-2020 Instruction Type:Provider Instructions for Treatment How to access health informa tion online Indication:BMI 32.0-32.9,adult Start:28-Feb-2020 Instruction Type:Patient Education How to access health informa tion online - Detail Indication:BMI 32.0-32.9,adult Start:28-Feb-2020 Instruction Type:Patient Education Patient Instructions Indication:BMI 32.0-32.9,adult Start:28-Feb-2020 Instruction Type:Provider Instructions for Treatment How to access health informa tion online Indication:Urinary frequency Start:14-Oct-2019 Instruction Type:Patient Education How to access health informa tion online - Detail Indication:Urinary frequency Start:14-Oct-2019 Instruction Type:Patient Education Patient Instructions Indication:Urinary frequency Start:14-Oct-2019 Instruction Type:Provider Instructions for Treatment How to access health informa tion online Indication:Urinary frequency Start:02-Dec-2018 Instruction Type:Patient Education How to access health informa tion online - Detail Indication:Urinary frequency Start:02-Dec-2018 Instruction Type:Patient Education Patient Instructions Indication:Urinary frequency Start:02-Dec-2018 Instruction Type:Provider Instructions for Treatment How to access health informa tion online Indication:Nonsmoker Start:27-Jul-2018 Instruction Type:Patient Education How to access health informa tion online - Detail Indication:Nonsmoker Start:27-Jul-2018 Instruction Type:Patient Education Patient Instructions Indication:Nonsmoker Start:27-Jul-2018 Instruction Type:Provider Instructions for Treatment How to access health informa tion online Indication:BMI 32.0-32.9,adult Start:16-Oct-2017 Instruction Type:Patient Education How to access health informa tion online - Detail Indication:BMI 32.0-32.9,adult Start:16-Oct-2017 Instruction Type:Patient Education Patient Instructions Indication:UTI (urinary tract infection) Start:16-Oct-2017 Instruction Type:Provider Instructions for Treatment DISCONTINUED - METABOLIC ESPITIA EL, COMPREHENSIVE ([id number]) Indication:Renal Insufficiency (Renamed from Impaired renal function) Start:18-Jul-2017 Instruction Type:Patient Education DISCONTINUED - [id number] ([id number]) Indication:Fatty liver Start:18-Jul-2017 Instruction Type:Patient Education DISCONTINUED - PTT (Activate d Partial Thromboplastin Time) ([id number]) Indication:Fatty liver Start:18-Jul-2017 Instruction Type:Patient Education DISCONTINUED - PT (PROTHROMB IN TIME) ([id number]) Indication:Fatty liver Start:18-Jul-2017 Instruction Type:Patient Education DISCONTINUED - LIPID PANEL ( [id number]) Indication:Hyperlipidemia Start:18-Jul-2017 Instruction Type:Patient Education How to access health informa tion online Indication:Dysuria Start:18-Jul-2017 Instruction Type:Patient Education How to access health informa tion online - Detail Indication:Dysuria Start:18-Jul-2017 Instruction Type:Patient Education Patient Instructions Indication:Dysuria Start:18-Jul-2017 Instruction Type:Provider Instructions for Treatment How to access health informa tion online Indication:UTI symptoms Start:16-Dec-2016 Instruction Type:Patient Education How to access health informa tion online - Detail Indication:UTI symptoms Start:16-Dec-2016 Instruction Type:Patient Education Patient Instructions Indication:UTI symptoms Start:16-Dec-2016 Instruction Type:Provider Instructions for Treatment How to access health informa tion online Indication:UTI symptoms Start:23-Sep-2016 Instruction Type:Patient Education How to access health informa tion online - Detail Indication:UTI symptoms Start:23-Sep-2016 Instruction Type:Patient Education Patient Instructions Indication:UTI symptoms Start:23-Sep-2016 Instruction Type:Provider Instructions for Treatment How to access health informa tion online Indication:Impaired Fasting Glucose Start:06-Aug-2016 Instruction Type:Patient Education How to access health informa tion online - Detail Indication:Impaired Fasting Glucose Start:06-Aug-2016 Instruction Type:Patient Education Patient Instructions Indication:Impaired Fasting Glucose Start:06-Aug-2016 Instruction Type:Provider Instructions for Treatment How to access health informa tion online Indication:UTI symptoms Start:02-May-2016 Instruction Type:Patient Education How to access health informa tion online - Detail Indication:UTI symptoms Start:02-May-2016 Instruction Type:Patient Education Patient Instructions Indication:UTI symptoms Start:02-May-2016 Instruction Type:Provider Instructions for Treatment How to access health informa tion online Indication:UTI symptoms Start:19-Apr-2016 Instruction Type:Patient Education How to access health informa tion online - Detail Indication:UTI symptoms Start:19-Apr-2016 Instruction Type:Patient Education Patient Instructions Indication:UTI symptoms Start:19-Apr-2016 Instruction Type:Provider Instructions for Treatment How to access health informa tion online Indication:Sorethroat Start:14-Mar-2016 Instruction Type:Patient Education How to access health informa tion online - Detail Indication:Sorethroat Start:14-Mar-2016 Instruction Type:Patient Education Patient Instructions Indication:Sorethroat Start:14-Mar-2016 Instruction Type:Provider Instructions for Treatment How to access health informa tion online Indication:Impaired Fasting Glucose Start:11-Mar-2016 Instruction Type:Patient Education How to access health informa tion online - Detail Indication:Impaired Fasting Glucose Start:11-Mar-2016 Instruction Type:Patient Education Patient Instructions Indication:Impaired Fasting Glucose Start:11-Mar-2016 Instruction Type:Provider Instructions for Treatment How to access health informa tion online Indication:Impaired Fasting Glucose Start:09-Oct-2015 Instruction Type:Patient Education How to access health informa tion online - Detail Indication:Impaired Fasting Glucose Start:09-Oct-2015 Instruction Type:Patient Education Patient Instructions Indication:Impaired Fasting Glucose Start:09-Oct-2015 Instruction Type:Provider Instructions for Treatment Patient Instructions Indication:Impaired Fasting Glucose Start:21-Jun-2015 Instruction Type:Provider Instructions for Treatment How to access health informa tion online Indication:Poison debi Start:31-May-2015 Instruction Type:Patient Education How to access health informa tion online - Detail Indication:Poison debi Start:31-May-2015 Instruction Type:Patient Education Patient Instructions Indication:Poison debi Start:31-May-2015 Instruction Type:Provider Instructions for Treatment Patient Instructions Indication:Impaired Fasting Glucose Start:15-Feb-2015 Instruction Type:Provider Instructions for Treatment How to access health informa tion online Indication:Impaired Fasting Glucose Start:19-Oct-2014 Instruction Type:Patient Education How to access health informa tion online - Detail Indication:Impaired Fasting Glucose Start:19-Oct-2014 Instruction Type:Patient Education Patient Instructions Indication:Impaired Fasting Glucose Start:19-Oct-2014 Instruction Type:Provider Instructions for Treatment How to access health informa tion online Indication:Impaired Fasting Glucose Start:20-Jul-2014 Instruction Type:Patient Education How to access health informa tion online - Detail Indication:Impaired Fasting Glucose Start:20-Jul-2014 Instruction Type:Patient Education Patient Instructions Indication:Impaired Fasting Glucose Start:20-Jul-2014 Instruction Type:Provider Instructions for Treatment Patient Instructions Indication:Encounter for Medicare annual wellness exam Start:04-May-2014 Instruction Type:Provider Instructions for Treatment Patient Instructions Indication:Impaired Fasting Glucose Start:16-Mar-2014 Instruction Type:Provider Instructions for Treatment Patient Instructions Indication:Impaired Fasting Glucose Start:09-Nov-2013 Instruction Type:Provider Instructions for Treatment Patient Instructions Indication:Vaginal yeast infection Start:17-Aug-2013 Instruction Type:Provider Instructions for Treatment Patient Instructions Indication:Impaired Fasting Glucose Start:06-Aug-2013 Instruction Type:Provider Instructions for Treatment Patient Instructions Indication:Diverticulitis Start:30-Jun-2013 Instruction Type:Provider Instructions for Treatment Name Dates Details Patient Instructions Indication:BMI 32.0-32.9,adult Start:30-Jan-2021 Instruction Type:Provider Instructions for Treatment How to Access Health Informa tion Online using Patient Portal and [employer] Apps Indication:BMI 32.0-32.9,adult Start:30-Jan-2021 Instruction Type:Patient Education Patient Instructions Indication:BMI 32.0-32.9,adult Start:03-Jan-2021 Instruction Type:Provider Instructions for Treatment How to Access Health Informa tion Online using Patient Portal and [employer]rd [employer] Apps Indication:BMI 32.0-32.9,adult Start:03-Jan-2021 Instruction Type:Patient Education How to access health informa tion online Indication:Nonsmoker Start:23-Oct-2020 Instruction Type:Patient Education How to access health informa tion online - Detail Indication:Nonsmoker Start:23-Oct-2020 Instruction Type:Patient Education Patient Instructions Indication:Nonsmoker Start:23-Oct-2020 Instruction Type:Provider Instructions for Treatment How to access health informa tion online Indication:Nonsmoker Start:18-Sep-2020 Instruction Type:Patient Education How to access health informa tion online - Detail Indication:Nonsmoker Start:18-Sep-2020 Instruction Type:Patient Education Patient Instructions Indication:Nonsmoker Start:18-Sep-2020 Instruction Type:Provider Instructions for Treatment How to access health informa tion online Indication:Nonsmoker Start:21-Jun-2020 Instruction Type:Patient Education How to access health informa tion online - Detail Indication:Nonsmoker Start:21-Jun-2020 Instruction Type:Patient Education Patient Instructions Indication:BMI 31.0-31.9,adult Start:21-Jun-2020 Instruction Type:Provider Instructions for Treatment How to access health informa tion online Indication:Nonsmoker Start:01-Mar-2020 Instruction Type:Patient Education How to access health informa tion online - Detail Indication:Nonsmoker Start:01-Mar-2020 Instruction Type:Patient Education Patient Instructions Indication:Nonsmoker Start:01-Mar-2020 Instruction Type:Provider Instructions for Treatment How to access health informa tion online Indication:BMI 32.0-32.9,adult Start:28-Feb-2020 Instruction Type:Patient Education How to access health informa tion online - Detail Indication:BMI 32.0-32.9,adult Start:28-Feb-2020 Instruction Type:Patient Education Patient Instructions Indication:BMI 32.0-32.9,adult Start:28-Feb-2020 Instruction Type:Provider Instructions for Treatment How to access health informa tion online Indication:Urinary frequency Start:14-Oct-2019 Instruction Type:Patient Education How to access health informa tion online - Detail Indication:Urinary frequency Start:14-Oct-2019 Instruction Type:Patient Education Patient Instructions Indication:Urinary frequency Start:14-Oct-2019 Instruction Type:Provider Instructions for Treatment How to access health informa tion online Indication:Urinary frequency Start:02-Dec-2018 Instruction Type:Patient Education How to access health informa tion online - Detail Indication:Urinary frequency Start:02-Dec-2018 Instruction Type:Patient Education Patient Instructions Indication:Urinary frequency Start:02-Dec-2018 Instruction Type:Provider Instructions for Treatment How to access health informa tion online Indication:Nonsmoker Start:27-Jul-2018 Instruction Type:Patient Education How to access health informa tion online - Detail Indication:Nonsmoker Start:27-Jul-2018 Instruction Type:Patient Education Patient Instructions Indication:Nonsmoker Start:27-Jul-2018 Instruction Type:Provider Instructions for Treatment How to access health informa tion online Indication:BMI 32.0-32.9,adult Start:16-Oct-2017 Instruction Type:Patient Education How to access health informa tion online - Detail Indication:BMI 32.0-32.9,adult Start:16-Oct-2017 Instruction Type:Patient Education Patient Instructions Indication:UTI (urinary tract infection) Start:16-Oct-2017 Instruction Type:Provider Instructions for Treatment DISCONTINUED - METABOLIC ESPITIA EL, COMPREHENSIVE ([id number]) Indication:Renal Insufficiency (Renamed from Impaired renal function) Start:18-Jul-2017 Instruction Type:Patient Education DISCONTINUED - [id number] ([id number]) Indication:Fatty liver Start:18-Jul-2017 Instruction Type:Patient Education DISCONTINUED - PTT (Activate d Partial Thromboplastin Time) ([id number]) Indication:Fatty liver Start:18-Jul-2017 Instruction Type:Patient Education DISCONTINUED - PT (PROTHROMB IN TIME) ([id number]) Indication:Fatty liver Start:18-Jul-2017 Instruction Type:Patient Education DISCONTINUED - LIPID PANEL ( [id number]) Indication:Hyperlipidemia Start:18-Jul-2017 Instruction Type:Patient Education How to access health informa tion online Indication:Dysuria Start:18-Jul-2017 Instruction Type:Patient Education How to access health informa tion online - Detail Indication:Dysuria Start:18-Jul-2017 Instruction Type:Patient Education Patient Instructions Indication:Dysuria Start:18-Jul-2017 Instruction Type:Provider Instructions for Treatment How to access health informa tion online Indication:UTI symptoms Start:16-Dec-2016 Instruction Type:Patient Education How to access health informa tion online - Detail Indication:UTI symptoms Start:16-Dec-2016 Instruction Type:Patient Education Patient Instructions Indication:UTI symptoms Start:16-Dec-2016 Instruction Type:Provider Instructions for Treatment How to access health informa tion online Indication:UTI symptoms Start:23-Sep-2016 Instruction Type:Patient Education How to access health informa tion online - Detail Indication:UTI symptoms Start:23-Sep-2016 Instruction Type:Patient Education Patient Instructions Indication:UTI symptoms Start:23-Sep-2016 Instruction Type:Provider Instructions for Treatment How to access health informa tion online Indication:Impaired Fasting Glucose Start:06-Aug-2016 Instruction Type:Patient Education How to access health informa tion online - Detail Indication:Impaired Fasting Glucose Start:06-Aug-2016 Instruction Type:Patient Education Patient Instructions Indication:Impaired Fasting Glucose Start:06-Aug-2016 Instruction Type:Provider Instructions for Treatment How to access health informa tion online Indication:UTI symptoms Start:02-May-2016 Instruction Type:Patient Education How to access health informa tion online - Detail Indication:UTI symptoms Start:02-May-2016 Instruction Type:Patient Education Patient Instructions Indication:UTI symptoms Start:02-May-2016 Instruction Type:Provider Instructions for Treatment How to access health informa tion online Indication:UTI symptoms Start:19-Apr-2016 Instruction Type:Patient Education How to access health informa tion online - Detail Indication:UTI symptoms Start:19-Apr-2016 Instruction Type:Patient Education Patient Instructions Indication:UTI symptoms Start:19-Apr-2016 Instruction Type:Provider Instructions for Treatment How to access health informa tion online Indication:Sorethroat Start:14-Mar-2016 Instruction Type:Patient Education How to access health informa tion online - Detail Indication:Sorethroat Start:14-Mar-2016 Instruction Type:Patient Education Patient Instructions Indication:Sorethroat Start:14-Mar-2016 Instruction Type:Provider Instructions for Treatment How to access health informa tion online Indication:Impaired Fasting Glucose Start:11-Mar-2016 Instruction Type:Patient Education How to access health informa tion online - Detail Indication:Impaired Fasting Glucose Start:11-Mar-2016 Instruction Type:Patient Education Patient Instructions Indication:Impaired Fasting Glucose Start:11-Mar-2016 Instruction Type:Provider Instructions for Treatment How to access health informa tion online Indication:Impaired Fasting Glucose Start:09-Oct-2015 Instruction Type:Patient Education How to access health informa tion online - Detail Indication:Impaired Fasting Glucose Start:09-Oct-2015 Instruction Type:Patient Education Patient Instructions Indication:Impaired Fasting Glucose Start:09-Oct-2015 Instruction Type:Provider Instructions for Treatment Patient Instructions Indication:Impaired Fasting Glucose Start:21-Jun-2015 Instruction Type:Provider Instructions for Treatment How to access health informa tion online Indication:Poison debi Start:31-May-2015 Instruction Type:Patient Education How to access health informa tion online - Detail Indication:Poison debi Start:31-May-2015 Instruction Type:Patient Education Patient Instructions Indication:Poison debi Start:31-May-2015 Instruction Type:Provider Instructions for Treatment Patient Instructions Indication:Impaired Fasting Glucose Start:15-Feb-2015 Instruction Type:Provider Instructions for Treatment How to access health informa tion online Indication:Impaired Fasting Glucose Start:19-Oct-2014 Instruction Type:Patient Education How to access health informa tion online - Detail Indication:Impaired Fasting Glucose Start:19-Oct-2014 Instruction Type:Patient Education Patient Instructions Indication:Impaired Fasting Glucose Start:19-Oct-2014 Instruction Type:Provider Instructions for Treatment How to access health informa tion online Indication:Impaired Fasting Glucose Start:20-Jul-2014 Instruction Type:Patient Education How to access health informa tion online - Detail Indication:Impaired Fasting Glucose Start:20-Jul-2014 Instruction Type:Patient Education Patient Instructions Indication:Impaired Fasting Glucose Start:20-Jul-2014 Instruction Type:Provider Instructions for Treatment Patient Instructions Indication:Encounter for Medicare annual wellness exam Start:04-May-2014 Instruction Type:Provider Instructions for Treatment Patient Instructions Indication:Impaired Fasting Glucose Start:16-Mar-2014 Instruction Type:Provider Instructions for Treatment Patient Instructions Indication:Impaired Fasting Glucose Start:09-Nov-2013 Instruction Type:Provider Instructions for Treatment Patient Instructions Indication:Vaginal yeast infection Start:17-Aug-2013 Instruction Type:Provider Instructions for Treatment Patient Instructions Indication:Impaired Fasting Glucose Start:06-Aug-2013 Instruction Type:Provider Instructions for Treatment Patient Instructions Indication:Diverticulitis Start:30-Jun-2013 Instruction Type:Provider Instructions for Treatment Name Dates Details Patient Instructions Indication:Nonsmoker Start:19-Feb-2021 Instruction Type:Provider Instructions for Treatment How to Access Health Informa tion Online using Patient Portal and [employer]rd [employer] Apps Indication:Nonsmoker Start:19-Feb-2021 Instruction Type:Patient Education Patient Instructions Indication:BMI 32.0-32.9,adult Start:30-Jan-2021 Instruction Type:Provider Instructions for Treatment How to Access Health Informa tion Online using Patient Portal and [employer]rd [employer] Apps Indication:BMI 32.0-32.9,adult Start:30-Jan-2021 Instruction Type:Patient Education Patient Instructions Indication:BMI 32.0-32.9,adult Start:03-Jan-2021 Instruction Type:Provider Instructions for Treatment How to Access Health Informa tion Online using Patient Portal and [employer]rd [employer] Apps Indication:BMI 32.0-32.9,adult Start:03-Jan-2021 Instruction Type:Patient Education How to access health informa tion online Indication:Nonsmoker Start:23-Oct-2020 Instruction Type:Patient Education How to access health informa tion online - Detail Indication:Nonsmoker Start:23-Oct-2020 Instruction Type:Patient Education Patient Instructions Indication:Nonsmoker Start:23-Oct-2020 Instruction Type:Provider Instructions for Treatment How to access health informa tion online Indication:Nonsmoker Start:18-Sep-2020 Instruction Type:Patient Education How to access health informa tion online - Detail Indication:Nonsmoker Start:18-Sep-2020 Instruction Type:Patient Education Patient Instructions Indication:Nonsmoker Start:18-Sep-2020 Instruction Type:Provider Instructions for Treatment How to access health informa tion online Indication:Nonsmoker Start:21-Jun-2020 Instruction Type:Patient Education How to access health informa tion online - Detail Indication:Nonsmoker Start:21-Jun-2020 Instruction Type:Patient Education Patient Instructions Indication:BMI 31.0-31.9,adult Start:21-Jun-2020 Instruction Type:Provider Instructions for Treatment How to access health informa tion online Indication:Nonsmoker Start:01-Mar-2020 Instruction Type:Patient Education How to access health informa tion online - Detail Indication:Nonsmoker Start:01-Mar-2020 Instruction Type:Patient Education Patient Instructions Indication:Nonsmoker Start:01-Mar-2020 Instruction Type:Provider Instructions for Treatment How to access health informa tion online Indication:BMI 32.0-32.9,adult Start:28-Feb-2020 Instruction Type:Patient Education How to access health informa tion online - Detail Indication:BMI 32.0-32.9,adult Start:28-Feb-2020 Instruction Type:Patient Education Patient Instructions Indication:BMI 32.0-32.9,adult Start:28-Feb-2020 Instruction Type:Provider Instructions for Treatment How to access health informa tion online Indication:Urinary frequency Start:14-Oct-2019 Instruction Type:Patient Education How to access health informa tion online - Detail Indication:Urinary frequency Start:14-Oct-2019 Instruction Type:Patient Education Patient Instructions Indication:Urinary frequency Start:14-Oct-2019 Instruction Type:Provider Instructions for Treatment How to access health informa tion online Indication:Urinary frequency Start:02-Dec-2018 Instruction Type:Patient Education How to access health informa tion online - Detail Indication:Urinary frequency Start:02-Dec-2018 Instruction Type:Patient Education Patient Instructions Indication:Urinary frequency Start:02-Dec-2018 Instruction Type:Provider Instructions for Treatment How to access health informa tion online Indication:Nonsmoker Start:27-Jul-2018 Instruction Type:Patient Education How to access health informa tion online - Detail Indication:Nonsmoker Start:27-Jul-2018 Instruction Type:Patient Education Patient Instructions Indication:Nonsmoker Start:27-Jul-2018 Instruction Type:Provider Instructions for Treatment How to access health informa tion online Indication:BMI 32.0-32.9,adult Start:16-Oct-2017 Instruction Type:Patient Education How to access health informa tion online - Detail Indication:BMI 32.0-32.9,adult Start:16-Oct-2017 Instruction Type:Patient Education Patient Instructions Indication:UTI (urinary tract infection) Start:16-Oct-2017 Instruction Type:Provider Instructions for Treatment DISCONTINUED - METABOLIC ESPITIA EL, COMPREHENSIVE (83417) Indication:Renal Insufficiency (Renamed from Impaired renal function) Start:18-Jul-2017 Instruction Type:Patient Education DISCONTINUED - [id number] ([id number]) Indication:Fatty liver Start:18-Jul-2017 Instruction Type:Patient Education DISCONTINUED - PTT (Activate d Partial Thromboplastin Time) ([id number]) Indication:Fatty liver Start:18-Jul-2017 Instruction Type:Patient Education DISCONTINUED - PT (PROTHROMB IN TIME) ([id number]) Indication:Fatty liver Start:18-Jul-2017 Instruction Type:Patient Education DISCONTINUED - LIPID PANEL ( [id number]) Indication:Hyperlipidemia Start:18-Jul-2017 Instruction Type:Patient Education How to access health informa tion online Indication:Dysuria Start:18-Jul-2017 Instruction Type:Patient Education How to access health informa tion online - Detail Indication:Dysuria Start:18-Jul-2017 Instruction Type:Patient Education Patient Instructions Indication:Dysuria Start:18-Jul-2017 Instruction Type:Provider Instructions for Treatment How to access health informa tion online Indication:UTI symptoms Start:16-Dec-2016 Instruction Type:Patient Education How to access health informa tion online - Detail Indication:UTI symptoms Start:16-Dec-2016 Instruction Type:Patient Education Patient Instructions Indication:UTI symptoms Start:16-Dec-2016 Instruction Type:Provider Instructions for Treatment How to access health informa tion online Indication:UTI symptoms Start:23-Sep-2016 Instruction Type:Patient Education How to access health informa tion online - Detail Indication:UTI symptoms Start:23-Sep-2016 Instruction Type:Patient Education Patient Instructions Indication:UTI symptoms Start:23-Sep-2016 Instruction Type:Provider Instructions for Treatment How to access health informa tion online Indication:Impaired Fasting Glucose Start:06-Aug-2016 Instruction Type:Patient Education How to access health informa tion online - Detail Indication:Impaired Fasting Glucose Start:06-Aug-2016 Instruction Type:Patient Education Patient Instructions Indication:Impaired Fasting Glucose Start:06-Aug-2016 Instruction Type:Provider Instructions for Treatment How to access health informa tion online Indication:UTI symptoms Start:02-May-2016 Instruction Type:Patient Education How to access health informa tion online - Detail Indication:UTI symptoms Start:02-May-2016 Instruction Type:Patient Education Patient Instructions Indication:UTI symptoms Start:02-May-2016 Instruction Type:Provider Instructions for Treatment How to access health informa tion online Indication:UTI symptoms Start:19-Apr-2016 Instruction Type:Patient Education How to access health informa tion online - Detail Indication:UTI symptoms Start:19-Apr-2016 Instruction Type:Patient Education Patient Instructions Indication:UTI symptoms Start:19-Apr-2016 Instruction Type:Provider Instructions for Treatment How to access health informa tion online Indication:Sorethroat Start:14-Mar-2016 Instruction Type:Patient Education How to access health informa tion online - Detail Indication:Sorethroat Start:14-Mar-2016 Instruction Type:Patient Education Patient Instructions Indication:Sorethroat Start:14-Mar-2016 Instruction Type:Provider Instructions for Treatment How to access health informa tion online Indication:Impaired Fasting Glucose Start:11-Mar-2016 Instruction Type:Patient Education How to access health informa tion online - Detail Indication:Impaired Fasting Glucose Start:11-Mar-2016 Instruction Type:Patient Education Patient Instructions Indication:Impaired Fasting Glucose Start:11-Mar-2016 Instruction Type:Provider Instructions for Treatment How to access health informa tion online Indication:Impaired Fasting Glucose Start:09-Oct-2015 Instruction Type:Patient Education How to access health informa tion online - Detail Indication:Impaired Fasting Glucose Start:09-Oct-2015 Instruction Type:Patient Education Patient Instructions Indication:Impaired Fasting Glucose Start:09-Oct-2015 Instruction Type:Provider Instructions for Treatment Patient Instructions Indication:Impaired Fasting Glucose Start:21-Jun-2015 Instruction Type:Provider Instructions for Treatment How to access health informa tion online Indication:Poison debi Start:31-May-2015 Instruction Type:Patient Education How to access health informa tion online - Detail Indication:Poison debi Start:31-May-2015 Instruction Type:Patient Education Patient Instructions Indication:Poison edbi Start:31-May-2015 Instruction Type:Provider Instructions for Treatment Patient Instructions Indication:Impaired Fasting Glucose Start:15-Feb-2015 Instruction Type:Provider Instructions for Treatment How to access health informa tion online Indication:Impaired Fasting Glucose Start:19-Oct-2014 Instruction Type:Patient Education How to access health informa tion online - Detail Indication:Impaired Fasting Glucose Start:19-Oct-2014 Instruction Type:Patient Education Patient Instructions Indication:Impaired Fasting Glucose Start:19-Oct-2014 Instruction Type:Provider Instructions for Treatment How to access health informa tion online Indication:Impaired Fasting Glucose Start:20-Jul-2014 Instruction Type:Patient Education How to access health informa tion online - Detail Indication:Impaired Fasting Glucose Start:20-Jul-2014 Instruction Type:Patient Education Patient Instructions Indication:Impaired Fasting Glucose Start:20-Jul-2014 Instruction Type:Provider Instructions for Treatment Patient Instructions Indication:Encounter for Medicare annual wellness exam Start:04-May-2014 Instruction Type:Provider Instructions for Treatment Patient Instructions Indication:Impaired Fasting Glucose Start:16-Mar-2014 Instruction Type:Provider Instructions for Treatment Patient Instructions Indication:Impaired Fasting Glucose Start:09-Nov-2013 Instruction Type:Provider Instructions for Treatment Patient Instructions Indication:Vaginal yeast infection Start:17-Aug-2013 Instruction Type:Provider Instructions for Treatment Patient Instructions Indication:Impaired Fasting Glucose Start:06-Aug-2013 Instruction Type:Provider Instructions for Treatment Patient Instructions Indication:Diverticulitis Start:30-Jun-2013 Instruction Type:Provider Instructions for Treatment Name Dates Details How to access health informa tion online Indication:Nonsmoker Start:23-Oct-2020 Instruction Type:Patient Education How to access health informa tion online - Detail Indication:Nonsmoker Start:23-Oct-2020 Instruction Type:Patient Education Patient Instructions Indication:Nonsmoker Start:23-Oct-2020 Instruction Type:Provider Instructions for Treatment How to access health informa tion online Indication:Nonsmoker Start:18-Sep-2020 Instruction Type:Patient Education How to access health informa tion online - Detail Indication:Nonsmoker Start:18-Sep-2020 Instruction Type:Patient Education Patient Instructions Indication:Nonsmoker Start:18-Sep-2020 Instruction Type:Provider Instructions for Treatment How to access health informa tion online Indication:Nonsmoker Start:21-Jun-2020 Instruction Type:Patient Education How to access health informa tion online - Detail Indication:Nonsmoker Start:21-Jun-2020 Instruction Type:Patient Education Patient Instructions Indication:BMI 31.0-31.9,adult Start:21-Jun-2020 Instruction Type:Provider Instructions for Treatment How to access health informa tion online Indication:Nonsmoker Start:01-Mar-2020 Instruction Type:Patient Education How to access health informa tion online - Detail Indication:Nonsmoker Start:01-Mar-2020 Instruction Type:Patient Education Patient Instructions Indication:Nonsmoker Start:01-Mar-2020 Instruction Type:Provider Instructions for Treatment How to access health informa tion online Indication:BMI 32.0-32.9,adult Start:28-Feb-2020 Instruction Type:Patient Education How to access health informa tion online - Detail Indication:BMI 32.0-32.9,adult Start:28-Feb-2020 Instruction Type:Patient Education Patient Instructions Indication:BMI 32.0-32.9,adult Start:28-Feb-2020 Instruction Type:Provider Instructions for Treatment How to access health informa tion online Indication:Urinary frequency Start:14-Oct-2019 Instruction Type:Patient Education How to access health informa tion online - Detail Indication:Urinary frequency Start:14-Oct-2019 Instruction Type:Patient Education Patient Instructions Indication:Urinary frequency Start:14-Oct-2019 Instruction Type:Provider Instructions for Treatment How to access health informa tion online Indication:Urinary frequency Start:02-Dec-2018 Instruction Type:Patient Education How to access health informa tion online - Detail Indication:Urinary frequency Start:02-Dec-2018 Instruction Type:Patient Education Patient Instructions Indication:Urinary frequency Start:02-Dec-2018 Instruction Type:Provider Instructions for Treatment How to access health informa tion online Indication:Nonsmoker Start:27-Jul-2018 Instruction Type:Patient Education How to access health informa tion online - Detail Indication:Nonsmoker Start:27-Jul-2018 Instruction Type:Patient Education Patient Instructions Indication:Nonsmoker Start:27-Jul-2018 Instruction Type:Provider Instructions for Treatment How to access health informa tion online Indication:BMI 32.0-32.9,adult Start:16-Oct-2017 Instruction Type:Patient Education How to access health informa tion online - Detail Indication:BMI 32.0-32.9,adult Start:16-Oct-2017 Instruction Type:Patient Education Patient Instructions Indication:UTI (urinary tract infection) Start:16-Oct-2017 Instruction Type:Provider Instructions for Treatment DISCONTINUED - METABOLIC ESPITIA EL, COMPREHENSIVE ([id number]) Indication:Renal Insufficiency (Renamed from Impaired renal function) Start:18-Jul-2017 Instruction Type:Patient Education DISCONTINUED - [id number] ([id number]) Indication:Fatty liver Start:18-Jul-2017 Instruction Type:Patient Education DISCONTINUED - PTT (Activate d Partial Thromboplastin Time) ([id number]) Indication:Fatty liver Start:18-Jul-2017 Instruction Type:Patient Education DISCONTINUED - PT (PROTHROMB IN TIME) ([id number]) Indication:Fatty liver Start:18-Jul-2017 Instruction Type:Patient Education DISCONTINUED - LIPID PANEL ( [id number]) Indication:Hyperlipidemia Start:18-Jul-2017 Instruction Type:Patient Education How to access health informa tion online Indication:Dysuria Start:18-Jul-2017 Instruction Type:Patient Education How to access health informa tion online - Detail Indication:Dysuria Start:18-Jul-2017 Instruction Type:Patient Education Patient Instructions Indication:Dysuria Start:18-Jul-2017 Instruction Type:Provider Instructions for Treatment How to access health informa tion online Indication:UTI symptoms Start:16-Dec-2016 Instruction Type:Patient Education How to access health informa tion online - Detail Indication:UTI symptoms Start:16-Dec-2016 Instruction Type:Patient Education Patient Instructions Indication:UTI symptoms Start:16-Dec-2016 Instruction Type:Provider Instructions for Treatment How to access health informa tion online Indication:UTI symptoms Start:23-Sep-2016 Instruction Type:Patient Education How to access health informa tion online - Detail Indication:UTI symptoms Start:23-Sep-2016 Instruction Type:Patient Education Patient Instructions Indication:UTI symptoms Start:23-Sep-2016 Instruction Type:Provider Instructions for Treatment How to access health informa tion online Indication:Impaired Fasting Glucose Start:06-Aug-2016 Instruction Type:Patient Education How to access health informa tion online - Detail Indication:Impaired Fasting Glucose Start:06-Aug-2016 Instruction Type:Patient Education Patient Instructions Indication:Impaired Fasting Glucose Start:06-Aug-2016 Instruction Type:Provider Instructions for Treatment How to access health informa tion online Indication:UTI symptoms Start:02-May-2016 Instruction Type:Patient Education How to access health informa tion online - Detail Indication:UTI symptoms Start:02-May-2016 Instruction Type:Patient Education Patient Instructions Indication:UTI symptoms Start:02-May-2016 Instruction Type:Provider Instructions for Treatment How to access health informa tion online Indication:UTI symptoms Start:19-Apr-2016 Instruction Type:Patient Education How to access health informa tion online - Detail Indication:UTI symptoms Start:19-Apr-2016 Instruction Type:Patient Education Patient Instructions Indication:UTI symptoms Start:19-Apr-2016 Instruction Type:Provider Instructions for Treatment How to access health informa tion online Indication:Sorethroat Start:14-Mar-2016 Instruction Type:Patient Education How to access health informa tion online - Detail Indication:Sorethroat Start:14-Mar-2016 Instruction Type:Patient Education Patient Instructions Indication:Sorethroat Start:14-Mar-2016 Instruction Type:Provider Instructions for Treatment How to access health informa tion online Indication:Impaired Fasting Glucose Start:11-Mar-2016 Instruction Type:Patient Education How to access health informa tion online - Detail Indication:Impaired Fasting Glucose Start:11-Mar-2016 Instruction Type:Patient Education Patient Instructions Indication:Impaired Fasting Glucose Start:11-Mar-2016 Instruction Type:Provider Instructions for Treatment How to access health informa [place] online Indication:Impaired Fasting Glucose Start:09-Oct-2015 Instruction Type:Patient Education How to access health informa tion online - Detail Indication:Impaired Fasting Glucose Start:09-Oct-2015 Instruction Type:Patient Education Patient Instructions Indication:Impaired Fasting Glucose Start:09-Oct-2015 Instruction Type:Provider Instructions for Treatment Patient Instructions Indication:Impaired Fasting Glucose Start:21-Jun-2015 Instruction Type:Provider Instructions for Treatment How to access health informa tion online Indication:Poison debi Start:31-May-2015 Instruction Type:Patient Education How to access health informa tion online - Detail Indication:Poison debi Start:31-May-2015 Instruction Type:Patient Education Patient Instructions Indication:Poison debi Start:31-May-2015 Instruction Type:Provider Instructions for Treatment Patient Instructions Indication:Impaired Fasting Glucose Start:15-Feb-2015 Instruction Type:Provider Instructions for Treatment How to access health informa [place] online Indication:Impaired Fasting Glucose Start:19-Oct-2014 Instruction Type:Patient Education How to access health informa tion online - Detail Indication:Impaired Fasting Glucose Start:19-Oct-2014 Instruction Type:Patient Education Patient Instructions Indication:Impaired Fasting Glucose Start:19-Oct-2014 Instruction Type:Provider Instructions for Treatment How to access health informa tion online Indication:Impaired Fasting Glucose Start:20-Jul-2014 Instruction Type:Patient Education How to access health informa tion online - Detail Indication:Impaired Fasting Glucose Start:20-Jul-2014 Instruction Type:Patient Education Patient Instructions Indication:Impaired Fasting Glucose Start:20-Jul-2014 Instruction Type:Provider Instructions for Treatment Patient Instructions Indication:Encounter for Medicare annual wellness exam Start:04-May-2014 Instruction Type:Provider Instructions for Treatment Patient Instructions Indication:Impaired Fasting Glucose Start:16-Mar-2014 Instruction Type:Provider Instructions for Treatment Patient Instructions Indication:Impaired Fasting Glucose Start:09-Nov-2013 Instruction Type:Provider Instructions for Treatment Patient Instructions Indication:Vaginal yeast infection Start:17-Aug-2013 Instruction Type:Provider Instructions for Treatment Patient Instructions Indication:Impaired Fasting Glucose Start:06-Aug-2013 Instruction Type:Provider Instructions for Treatment Patient Instructions Indication:Diverticulitis Start:30-Jun-2013 Instruction Type:Provider Instructions for Treatment Chief Complaint and Reason for Visit Chief Complaint 3 MO PESSARY CHECK 3 MO pessary check dizziness Reason for Visit Encounter for pessar y maintenance Vaginal pessary in situ Cystocele and rectocele with incomplete uterovaginal prolapse Encounter for pessary maintenance Vaginal pessary in situ Chief Complaint 3 MO pessary check dizziness DIZZY,CHEST PAIN Reason for Visit Encounter for pessar y maintenance Vaginal pessary in situ UTI (urinary tract infection) Chief Complaint 3 MO pessary check dizziness DIZZY,CHEST PAIN uti Reason for Visit Encounter for pessar y maintenance Vaginal pessary in situ UTI (urinary tract infection) Chief Complaint 3 MO FU Reason for Visit Encounter for pessar y maintenance Cystocele and rectocele with incomplete uterovaginal prolapse Chief Complaint pessary check CHEST PAIN Reason for Visit Encounter for pessar y maintenance Vaginal pessary in situ Cystocele and rectocele with incomplete uterovaginal prolapse Chief Complaint pessary check CHEST PAIN DIZZINESS Reason for Visit Encounter for pessar y maintenance Vaginal pessary in situ Cystocele and rectocele with incomplete uterovaginal prolapse Chief Complaint pessary check CHEST PAIN DIZZINESS XRAY Reason for Visit Encounter for pessar y maintenance Vaginal pessary in situ Cystocele and rectocele with incomplete uterovaginal prolapse Chief Complaint pessary check CHEST PAIN DIZZINESS XRAY 3 MO F/U Pain abd pain Reason for Visit Encounter for pessar y maintenance Vaginal pessary in situ Cystocele and rectocele with incomplete uterovaginal prolapse Encounter for pessary maintenance Vaginal pessary in situ Cystocele and rectocele with incomplete uterovaginal prolapse Chief Complaint 3 MO F/U Pain abd pain DUE AROUND DATE LISTED PER ORDER 3 mo fu Reason for Visit Encounter for pessar y maintenance Vaginal pessary in situ Cystocele and rectocele with incomplete uterovaginal prolapse Encounter for pessary maintenance Vaginal pessary in situ Cystocele and rectocele with incomplete uterovaginal prolapse Chief Complaint Unspecified abdomina l pain 3 M FU 3 M FU [employer] [place] Reason for Visit Encounter for pessar y maintenance Vaginal pessary in situ Cystocele and rectocele with incomplete uterovaginal prolapse Encounter for pessary maintenance Vaginal pessary in situ Cystocele and rectocele with incomplete uterovaginal prolapse GERD (gastroesophageal reflux disease) Chief Complaint Admit Date 3 M PESSARY CK January 03, 2025 1 0:11am SCREENING January 10, 2025 10:34am LT BREAST ABN MAMM January 12, 2025 12:46pm BIRADS 4 January 18, 2025 8:20am Excision, Ultrasound left Breast Mass or Biopsy January 28, 2025 6:28am Excision, Ultrasound left Breast Mass or Biopsy January 28, 2025 8:00am BREAST BIOPSY DOS 01/28February 11, 2025 12:44pm PREOP February 18, 2025 11: 56am Breast,Left partial Lumpectomy,left Sent inel Node February 22, 2025 5:43am Breast,Left partial Lumpectomy,left Sent inel Node February 22, 2025 6:44am Reason for Visit Admit Date Encounter for pessary maintenance 2024 10:11am Vaginal pessary in situ January 03 10:11am Cystocele and rectocele with incomplete uterovaginal prolapse January 03, 2025 10:11am Breast lesion on mammography January 182024 8:20am Breast cancer, left breast February 11, 12:44pm Chief Complaint Admit Date 3 M PESSARY CK January 03, 2025 1 0:11am SCREENING January 10, 2025 10:34am LT BREAST ABN MAMM January 12, 2025 12:46pm BIRADS 4 January 18, 2025 8:20am Excision, Ultrasound left Breast Mass or Biopsy January 28, 2025 6:28am Excision, Ultrasound left Breast Mass or Biopsy January 28, 2025 8:00am BREAST BIOPSY DOS 01/28February 11, 2025 12:44pm PREOP February 18, 2025 11: 56am Breast,Left partial Lumpectomy,left Sent inel Node February 22, 2025 5:43am Breast,Left partial Lumpectomy,left Sent inel Node February 22, 2025 6:44am LUMPECTOMY DOS 02/22March 09, 2025 1:53 pm Amb Documentation March 15, 2025 11: 42am BREAST CA March 16, 2025 9:1 0am CONSULT - BREAST March 25, 2025 10: 13am . March 30, 2025 10: 00am 3 M PESSARY CK April 04, 2025 10:12a m htn April 04, 2025 12:28p m hypertension April 07, 2025 9:45am Reason for Visit Admit Date Encounter for pessary maintenance ua 2024 10:11am Vaginal pessary in situ January 03 10:11am Cystocele and rectocele with incomplete uterovaginal prolapse January 03, 2025 10:11am Breast lesion on mammography January 182024 8:20am Breast cancer, left breast February 11, 025 12:44pm Breast cancer, left breast March 09 1:53pm Breast cancer, left breast March 16, 025 9:10am Breast cancer, left breast March 25 025 10:13am Encounter for pessary maintenance March 10:12am Vaginal pessary in situ April 04, 2025 10 :12am Cystocele and rectocele with incomplete uterovaginal prolapse April 04, 2025 10:12am Hypertension April 04, 2025 10:12a m Chief Complaint Admit Date 3 M PESSARY CK January 03, 2025 1 0:11am SCREENING January 10, 2025 10:34am LT BREAST ABN MAMM January 12, 2025 12:46pm BIRADS 4 January 18, 2025 8:20am Excision, Ultrasound left Breast Mass or Biopsy January 28, 2025 6:28am Excision, Ultrasound left Breast Mass or Biopsy January 28, 2025 8:00am BREAST BIOPSY DOS 01/28February 11, 2025 12:44pm PREOP February 18, 2025 11: 56am Breast,Left partial Lumpectomy,left Sent inel Node February 22, 2025 5:43am Breast,Left partial Lumpectomy,left Sent inel Node February 22, 2025 6:44am LUMPECTOMY DOS 02/22March 09, 2025 1:53 pm Amb Documentation March 15, 2025 11: 42am BREAST CA March 16, 2025 9:1 0am CONSULT - BREAST March 25, 2025 10: 13am 3 M PESSARY CK April 04, 2025 10:12a m htn April 04, 2025 12:28p m hypertension April 07, 2025 9:45am . April 08, 2025 11:20a m anxiety April 11, 2025 4:01a m Chief Complaint Admit Date 3 M PESSARY CK January 03, 2025 1 0:11am SCREENING January 10, 2025 10:34am LT BREAST ABN MAMM January 12, 2025 12:46pm BIRADS 4 January 18, 2025 8:20am Excision, Ultrasound left Breast Mass or Biopsy January 28, 2025 6:28am Excision, Ultrasound left Breast Mass or Biopsy January 28, 2025 8:00am BREAST BIOPSY DOS 01/28February 11, 2025 12:44pm PREOP February 18, 2025 11: 56am Breast,Left partial Lumpectomy,left Sent inel Node February 22, 2025 5:43am Breast,Left partial Lumpectomy,left Sent inel Node February 22, 2025 6:44am LUMPECTOMY DOS 02/22March 09, 2025 1:53 pm Amb Documentation March 15, 2025 11: 42am BREAST CA March 16, 2025 9:1 0am CONSULT - BREAST March 25, 2025 10: 13am 3 M PESSARY CK April 04, 2025 10:12a m htn April 04, 2025 12:28p m hypertension April 07, 2025 9:45am anxiety April 11, 2025 4:01a m Amb Documentation April 20, 2025 9:17a m OTV April 20, 2025 9:41a m . April 20, 2025 10:00 am Chief Complaint Admit Date 3 M PESSARY CK January 03, 2025 1 0:11am SCREENING January 10, 2025 10:34am LT BREAST ABN MAMM January 12, 2025 12:46pm BIRADS 4 January 18, 2025 8:20am Excision, Ultrasound left Breast Mass or Biopsy January 28, 2025 6:28am Excision, Ultrasound left Breast Mass or Biopsy January 28, 2025 8:00am BREAST BIOPSY DOS 01/28February 11, 2025 12:44pm PREOP February 18, 2025 11: 56am Breast,Left partial Lumpectomy,left Sent inel Node February 22, 2025 5:43am Breast,Left partial Lumpectomy,left Sent inel Node February 22, 2025 6:44am LUMPECTOMY DOS 02/22March 09, 2025 1:53 pm Amb Documentation March 15, 2025 11: 42am BREAST CA March 16, 2025 9:1 0am CONSULT - BREAST March 25, 2025 10: 13am 3 M PESSARY CK April 04, 2025 10:12a m htn April 04, 2025 12:28p m hypertension April 07, 2025 9:45am anxiety April 11, 2025 4:01a m Amb Documentation April 20, 2025 9:17a m OTV April 20, 2025 9:41a m . April 20, 2025 10:00 am CHEMO ED April 21, 2025 9:43a m allergic reaction April 23, 2025 4:20a m REDRAW OF FOLATES--NO VRO April 29, 2025 4:21pm Reason for Visit Admit Date Encounter for pessary maintenance 2024 10:11am Vaginal pessary in situ January 03 10:11am Cystocele and rectocele with incomplete uterovaginal prolapse January 03, 2025 10:11am Breast lesion on mammography January 182024 8:20am Breast cancer, left breast February 11, 025 12:44pm Breast cancer, left breast March 09 1:53pm Breast cancer, left breast March 16, 025 9:10am Breast cancer, left breast March 25 025 10:13am Encounter for pessary maintenance March 10:12am Vaginal pessary in situ April 04, 2025 10 :12am Cystocele and rectocele with incomplete uterovaginal prolapse April 04, 2025 10:12am Hypertension April 04, 2025 10:12a m Breast cancer, left breast April 20 9:41am Breast cancer, left breast April 21 9:43am Encounter for education April 21, 2025 9 :43am Chief Complaint Admit Date Excision, Ultrasound left Breast Mass or Biopsy January 28, 2025 6:28am Excision, Ultrasound left Breast Mass or Biopsy January 28, 2025 8:00am BREAST BIOPSY DOS 01/28February 11, 2025 12:44pm PREOP February 18, 2025 11: 56am Breast,Left partial Lumpectomy,left Sent inel Node February 22, 2025 5:43am Breast,Left partial Lumpectomy,left Sent inel Node February 22, 2025 6:44am LUMPECTOMY DOS 02/22March 09, 2025 1:53 pm Amb Documentation March 15, 2025 11: 42am BREAST CA March 16, 2025 9:1 0am CONSULT - BREAST March 25, 2025 10: 13am 3 M PESSARY CK April 04, 2025 10:12a m htn April 04, 2025 12:28p m hypertension April 07, 2025 9:45am anxiety April 11, 2025 4:01a m Amb Documentation April 20, 2025 9:17a m OTV April 20, 2025 9:41a m . April 20, 2025 10:00 am CHEMO ED April 21, 2025 9:43a m allergic reaction April 23, 2025 4:20a m REDRAW OF FOLATES--NO VRO April 29, 2025 4:21pm CHEST PAIN May 23, 2025 12:3 4pm 1 MONTH F/U POST RT May 26, 2025 9:44 am Reason for Visit Admit Date Breast cancer, left breast February 11, 12:44pm Breast cancer, left breast March 09 1:53pm Breast cancer, left breast March 16, 2 025 9:10am Breast cancer, left breast March 25, 025 10:13am Encounter for pessary maintenance March 10:12am Vaginal pessary in situ April 04, 2025 10 :12am Cystocele and rectocele with incomplete uterovaginal prolapse April 04, 2025 10:12am Hypertension April 04, 2025 10:12a m Breast cancer, left breast April 20 9:41am Breast cancer, left breast April 21 9:43am Encounter for education April 21, 2025 9 :43am Reason for Visit Admit Date Breast cancer, left breast February 11, 2 025 12:44pm Breast cancer, left breast March 09 1:53pm Breast cancer, left breast March 16, 2 025 9:10am Breast cancer, left breast March 25, 025 10:13am Encounter for pessary maintenance March 5t h2024 10:12am Vaginal pessary in situ April 04, 2025 10 :12am Cystocele and rectocele with incomplete uterovaginal prolapse April 04, 2025 10:12am Hypertension April 04, 2025 10:12a m Breast cancer, left breast April 20 9:41am Breast cancer, left breast April 21 9:43am Encounter for education April 21, 2025 9 :43am Breast cancer, left breast May 26 9:44am Chief Complaint Admit Date LUMPECTOMY DOS 02/22March 09, 2025 1:53 pm Amb Documentation March 15, 2025 11: 42am BREAST CA March 16, 2025 9:1 0am CONSULT - BREAST March 25, 2025 10: 13am 3 M PESSARY CK April 04, 2025 10:12a m htn April 04, 2025 12:28p m hypertension April 07, 2025 9:45am anxiety April 11, 2025 4:01a m Amb Documentation April 20, 2025 9:17a m OTV April 20, 2025 9:41a m . April 20, 2025 10:00 am CHEMO ED April 21, 2025 9:43a m allergic reaction April 23, 2025 4:20a m REDRAW OF FOLATES--NO VRO April 29, 2025 4:21pm CHEST PAIN May 23, 2025 12:3 4pm 1 MONTH F/U POST RT May 26, 2025 9:44 am 3 M pessary check July 05, 2025 10: 07am Reason for Visit Admit Date Breast cancer, left breast March 09 1:53pm Breast cancer, left breast March 16, 2 025 9:10am Breast cancer, left breast March 25, 025 10:13am Encounter for pessary maintenance March 10:12am Vaginal pessary in situ April 04, 2025 10 :12am Cystocele and rectocele with incomplete uterovaginal prolapse April 04, 2025 10:12am Hypertension April 04, 2025 10:12a m Breast cancer, left breast April 20 9:41am Breast cancer, left breast April 21 9:43am Encounter for education April 21, 2025 9 :43am Breast cancer, left breast May 26 9:44am Chief Complaint Admit Date CONSULT - BREAST March 25, 2025 10: 13am 3 M PESSARY CK April 04, 2025 10:12a m htn April 04, 2025 12:28p m hypertension April 07, 2025 9:45am anxiety April 11, 2025 4:01a m Amb Documentation April 20, 2025 9:17a m OTV April 20, 2025 9:41a m CHEMO ED April 21, 2025 9:43a m allergic reaction April 23, 2025 4:20a m REDRAW OF FOLATES--NO VRO April 29, 2025 4:21pm CHEST PAIN May 23, 2025 12:3 4pm 1 MONTH F/U POST RT May 26, 2025 9:44 am 3 M pessary check July 05, 2025 10: 07am 3 MO - LABS - [facility] July 21, 2025 1 0:32am . July 21, 2025 10 :45am Reason for Visit Admit Date Breast cancer, left breast March 25, 2 025 10:13am Encounter for pessary maintenance March 10:12am Vaginal pessary in situ April 04, 2025 10 :12am Cystocele and rectocele with incomplete uterovaginal prolapse April 04, 2025 10:12am Hypertension April 04, 2025 10:12a m Breast cancer, left breast April 20 9:41am Breast cancer, left breast April 21 9:43am Encounter for education April 21, 2025 9 :43am Breast cancer, left breast May 26 9:44am Encounter for pessary maintenance July 05, 2025 10:07am Vaginal pessary in situ July 05, 2025 10:07am Cystocele and rectocele with incomplete uterovaginal prolapse July 05, 2025 10:07am Breast cancer, left breast July 21, 2025 10:32am Osteopenia July 21, 2025 10 :32am Chief Complaint Admit Date 3 M PESSARY CK April 04, 2025 10:12a m htn April 04, 2025 12:28p m hypertension April 07, 2025 9:45am anxiety April 11, 2025 4:01a m Amb Documentation April 20, 2025 9:17a m OTV April 20, 2025 9:41a m CHEMO ED April 21, 2025 9:43a m allergic reaction April 23, 2025 4:20a m REDRAW OF FOLATES--NO VRO April 29, 2025 4:21pm CHEST PAIN May 23, 2025 12:3 4pm 1 MONTH F/U POST RT May 26, 2025 9:44 am 3 M pessary check July 05, 2025 10: 07am 3 MO - LABS - [facility] July 21, 2025 1 0:32am . July 21, 2025 10 :45am Urinary tract infection July 26 10:06am Reason for Visit Admit Date Encounter for pessary maintenance March 10:12am Vaginal pessary in situ April 04, 2025 10 :12am Cystocele and rectocele with incomplete uterovaginal prolapse April 04, 2025 10:12am Hypertension April 04, 2025 10:12a m Breast cancer, left breast April 20 9:41am Breast cancer, left breast April 21 9:43am Encounter for education April 21, 2025 9 :43am Breast cancer, left breast May 26 9:44am Encounter for pessary maintenance July 05, 2025 10:07am Vaginal pessary in situ July 05, 2025 10:07am Cystocele and rectocele with incomplete uterovaginal prolapse July 05, 2025 10:07am Breast cancer, left breast July 21, 2025 10:32am Osteopenia July 21, 2025 10 :32am Urinary tract infection July 26 10:06am Chief Complaint Admit Date CHEST PAIN May 23, 2025 12:3 4pm 1 MONTH F/U POST RT May 26, 2025 9:44 am 3 M pessary check July 05, 2025 10: 07am 3 MO - LABS - [facility] July 21, 2025 1 0:32am . July 21, 2025 10 :45am Urinary tract infection July 26 10:06am Reason for Visit Admit Date Breast cancer, left breast May 26 9:44am Encounter for pessary maintenance July 05, 2025 10:07am Vaginal pessary in situ July 05, 2025 10:07am Cystocele and rectocele with incomplete uterovaginal prolapse July 05, 2025 10:07am Breast cancer, left breast July 21, 2025 10:32am Osteopenia July 21, 2025 10 :32am Stress incontinence July 26, 2025 10 :06am UTI (urinary tract infection) July 10:06am Vaginal atrophy July 26, 2025 10 :06am Cystocele and rectocele with incomplete uterovaginal prolapse July 26, 2025 10:06am Advance Directives No Advanced Directives Records Found Advance Directive Response Recorded Date/ Time Advance Directives Yes October 05, 2019 10:38am Living Will Yes February 28, 2022 2:11pm Power of Picture Engraver Yes February 28 2:11pm Advance Directive Response Recorded Date/ Time Name of Medical Power of Picture Engraver Dylan Arechiga February 28, 2022 2:11pm Name of Medical Power of Picture Engraver May 16, 2022 1:03am Advance Directives Yes October 05, 2019 10:38am Living Will Yes May 16, 2022 1:03am Power of Picture Engraver Yes May 16 1:03am Advance Directive Response Recorded Date/ Time Advance Directives Yes October 05, 2019 9:38am Living Will Yes May 16, 2022 12:03am Power of Picture Engraver Yes May 16 12:03am Advance Directive Response Recorded Date/ Time Name of Medical Power of Picture Engraver PRASANNA March 09, 2023 12:01am Advance Directives Yes October 05, 2019 10:38am Living Will Yes March 09, 2023 12:01am Power of Picture Engraver Yes March 09 12:01am Advance Directive Response Recorded Date/ Time Name of Medical Power of Picture Engraver PRASANNA March 09, 2023 12:01am Name of Medical Power of Picture Engraver DYLAN ARECHIGA - March 10, 2023 7:00pm Advance Directives Yes October 05, 2019 10:38am Living Will Yes March 10, 2023 7:00pm Power of Picture Engraver Yes March 10 7:00pm Advance Directive Response Recorded Date/ Time Name of Medical Power of Picture Engraver PRASANNA March 09, 2023 12:01am Name of Medical Power of Picture Engraver DYLAN ARECHIGA - March 10, 2023 7:00pm Name of Medical Power of Picture Engraver Fu May 21, 2023 11:29am Advance Directives Yes October 05, 2019 10:38am Living Will Yes May 21, 2023 11:29am Power of Picture Engraver Yes May 21 11:29am Advance Directive Response Recorded Date/ Time Name of Medical Power of Picture Engraver Fu May 21, 2023 11:29am Advance Directives Yes October 05, 2019 10:38am Living Will Yes May 21, 2023 11:29am Power of Picture Engraver Yes May 21 11:29am Advance Directive Response Recorded Date/ Time Advance Directives Yes October 05, 2019 9:38am Living Will Yes May 21, 2023 10:29am Power of Picture Engraver Yes May 21 10:29am Advance Directive Response Recorded Date/ Time Living Will Yes February 15, 2025 11:03am Do you have a Healthcare Power of Picture Engraver? Yes February 15, 2025 11:03am Name of Medical Power of Picture Engraver SON February 15, 2025 11:03am Living Will Yes January 20 3:36pm Do you have a Healthcare Power of Picture Engraver? Yes January 20, 2025 3:36pm Name of Medical Power of Picture Engraver PABLO January 20, 2025 3:36pm Advance Directives Yes October 05, 2019 10:38am Advance Directive Response Recorded Date/ Time Living Will Yes February 15, 2025 11:03am Do you have a Healthcare Power of Picture Engraver? Yes February 15, 2025 11:03am Name of Medical Power of Picture Engraver SON February 15, 2025 11:03am Do you have a Healthcare Power of Picture Engraver? Yes April 04, 2025 1:57pm Do you have a Healthcare Power of Picture Engraver? Yes April 07, 2025 10:33am Living Will Yes January 20 3:36pm Do you have a Healthcare Power of Picture Engraver? Yes January 20, 2025 3:36pm Name of Medical Power of Picture Engraver PABLO January 20, 2025 3:36pm Advance Directives Yes October 05, 2019 10:38am Advance Directive Response Recorded Date/ Time Living Will Yes February 15, 2025 11:03am Do you have a Healthcare Power of Picture Engraver? Yes February 15, 2025 11:03am Name of Medical Power of Picture Engraver SON February 15, 2025 11:03am Do you have a Healthcare Power of Picture Engraver? Yes April 04, 2025 1:57pm Do you have a Healthcare Power of Picture Engraver? Yes April 07, 2025 10:33am Do you have a Healthcare Power of Picture Engraver? No April 11, 2025 4:09am Living Will Yes January 20 3:36pm Do you have a Healthcare Power of Picture Engraver? Yes January 20, 2025 3:36pm Name of Medical Power of Picture Engraver PABLO January 20, 2025 3:36pm Advance Directives Yes October 05, 2019 10:38am Advance Directive Response Recorded Date/ Time Living Will Yes February 15, 2025 11:03am Do you have a Healthcare Power of Picture Engraver? Yes February 15, 2025 11:03am Name of Medical Power of Picture Engraver SON February 15, 2025 11:03am Do you have a Healthcare Power of Picture Engraver? Yes April 04, 2025 1:57pm Do you have a Healthcare Power of Picture Engraver? Yes April 07, 2025 10:33am Do you have a Healthcare Power of Picture Engraver? No April 11, 2025 4:09am Do you have a Healthcare Power of Picture Engraver? Yes April 23, 2025 4:29am Living Will Yes January 20 3:36pm Do you have a Healthcare Power of Picture Engraver? Yes January 20, 2025 3:36pm Name of Medical Power of Picture Engraver PABLO January 20, 2025 3:36pm Advance Directives Yes October 05, 2019 10:38am Advance Directive Response Recorded Date/ Time Do you have a Healthcare Power of Picture Engraver? Yes April 04, 2025 1:57pm Do you have a Healthcare Power of Picture Engraver? Yes April 07, 2025 10:33am Do you have a Healthcare Power of Picture Engraver? No April 11, 2025 4:09am Do you have a Healthcare Power of Picture Engraver? Yes April 23, 2025 4:29am Advance Directives Yes October 05, 2019 10:38am Advance Directive Response Recorded Date/ Time Advance Directives Yes October 05, 2019 10:38am Reason for Referral * dizzy No data available for this section No data available for this section No data available for this section Summary Purpose Additional Source Comments Goals (unrecognized section and content) Goals may be documented in a n alternate sectionGoals may be documented in an alternate sectionGoals may be documented in an alternate sectionGoals may be documented in an alternate sectionGoals may be documented in an alternate sectionGoals may be documented in an alternate sectionGoals may be documented in an alternate sectionGoals may be documented in an alternate sectionGoals may be documented in an alternate sectionGoals may be documented in an alternate sectionGoals may be documented in an alternate sectionGoals may be documented in an alternate sectionGoals may be documented in an alternate sectionGoals may be documented in an alternate sectionGoals may be documented in an alternate sectionGoals may be documented in an alternate sectionGoals may be documented in an alternate section No data available for this section No data available for this sectionGoals may be documented in an alternate section No data available for this section Care Teams (unrecognized sec tion and content) Team Status: Active Member Role Status Dates Belem Hagen HARNESS INSTALLER, HARNESS INSTALLER-C Family Provider Active Rayshawn Chaudhary , HARNESS INSTALLER-C Primary Care Provider Active Team Status: Inactive Member Role Status Dates Rayshawn Chaudhary , HARNESS INSTALLER-C Primary Care Provider, Referring Provider Active Rayna Baziz HARNESS INSTALLER, HARNESS INSTALLER-C Attending Provider Active Team Status: Inactive Member Role Status Dates Rayshawn Chaudhary , HARNESS INSTALLER-C Primary Care Provider Active Dr. Tristan Landis MD Emergency Provider Active Team Status: Inactive Member Role Status Dates Rayshawn Chaudhary , HARNESS INSTALLER-C Primary Care Provider Active Dr. Tod Warner DO Emergency Provider Active Team Status: Inactive Member Role Status Dates Rayshawn Chaudhary , HARNESS INSTALLER-C Primary Care Provider Active Dr. Luis Carlos Zuluaga MD Attending Provider Active Team Status: Inactive Member Role Status Dates Rayshawn Chaudhary , HARNESS INSTALLER-C Primary Care Provider Active Dr. Tristan Landis MD Attending Provider, Emergency Provider Active Team Status: Inactive Member Role Status Dates Rayshawn Chaudhary , HARNESS INSTALLER-C Primary Care Provider Active Dr. Tod Warner DO Attending Provider, Emergency Provider Active Team Status: Inactive Member Role Status Dates Rayshawn Chaudhary , HARNESS INSTALLER-C Primary Care Provi stephani, Attending Provider, Referring Provider Active Team Status: Active Member Role Status Dates Rayshawn Chaudhary , HARNESS INSTALLER-C Primary Care Provider Active Dr. Omayra Parham DO Attending Provider, Referring Provider Active Team Status: Inactive Member Role Status Dates Rayshawn Chaudhary , HARNESS INSTALLER-C Primary Care Provider Active Dr. Domenic Merrill DO Emergency Provider Active Team Status: Inactive Member Role Status Dates Rayshawn Chaudhary , HARNESS INSTALLER-C Primary Care Provider Active Dr. Omayra Parham DO Attending Provider, Referring Provider Active Team Status: Inactive Member Role Status Dates Rayshawn Chaudhary , HARNESS INSTALLER-C Primary Care Provider Active Dr. Dionna Carcamo DO Attending Provider, Referring P rovider Active Team Status: Inactive Member Role Status Dates Rayshawn Chaudhary , HARNESS INSTALLER-C Primary Care Provider Active Dr. Domenic Desirae , DO Attending Provider, Emergency P rovider Active Team Status: Active Member Role Status Dates Rayshawn Chaudhary HARNESS INSTALLER-C Primary Care Provider Active Team Status: Inactive Member Role Status Dates Rayshawn Chaudhary HARNESS INSTALLER-C Primary Care Provider Active Start: January 03, 2025 End: January 03, 2025 Rayshawn Chaudhary , HARNESS INSTALLER-C Referring Provider Active Start: January 03, 2025 End: January 03, 2025 Rayna Bazzi HARNESS INSTALLER, HARNESS INSTALLER-C Attending Provider Active Start: January 03, 2025 End: January 03, 2025 Team Status: Inactive Member Role Status Dates Rayshawn Chaudhary HARNESS INSTALLER-C Primary Care Provider Active Start: January 10, 2025 End: January 10, 2025 Rayna Bazzi HARNESS INSTALLER, HARNESS INSTALLER-C Attending Provider Active Start: January 10, 2025 End: January 10, 2025 Rayna Bazzi HARNESS INSTALLER, HARNESS INSTALLER-C Referring Provider Active Start: January 10, 2025 End: January 10, 2025 Team Status: Inactive Member Role Status Dates Rayshawn Chaudhary HARNESS INSTALLER-C Primary Care Provider Active Start: January 12, 2025 End: January 12, 2025 Rayna Bazzi HARNESS INSTALLER, [employer]ESS INSTALLER-C Attending Provider Active Start: January 12, 2025 End: January 12, 2025 Rayna Bazzi HARNESS INSTALLER, HARNESS INSTALLER-C Referring Provider Active Start: January 12, 2025 End: January 12, 2025 Team Status: Inactive Member Role Status Dates Rayshawn Chaudhary HARNESS INSTALLER-C Primary Care Provider Active Start: January 18, 2025 End: January 18, 2025 Rayshawn Chaudhary HARNESS INSTALLER-C Referring Provider Active Start: January 18, 2025 End: January 18, 2025 Dr. Branden Lance MD Attending Provider Active Start: January 18, 2025 End: January 18, 2025 Team Status: Inactive Member Role Status Dates Rayshawn Chaudhary HARNESS INSTALLER-C Primary Care Provider Active Start: January 28, 2025 End: January 28, 2025 Dr. Branden Lance MD Attending Provider Active Start: January 28, 2025 End: January 28, 2025 Dr. Branden Lance MD Referring Provider Active Start: January 28, 2025 End: January 28, 2025 Team Status: Active Member Role Status Dates Rayshawn Chaudhary HARNESS INSTALLER-C Primary Care Provider Active Start: January 28, 2025 Dr. Branden Lance MD Attending Provider Active Start: January 28, 2025 Dr. Branden Lance MD Referring Provider Active Start: January 28, 2025 Dr. Branden Lance MD Other Provider Active Start: January 28, 2025 Team Status: Inactive Member Role Status Dates Rayshawn Chaudhary NP-C Primary Care Provider Active Start: February 11, 2025 End: February 11, 2025 Rayshawn Chaudhary NP-C Referring Provider Active Start: February 11, 2025 End: February 11, 2025 Dr. Branden Lance MD Attending Provider Active Start: February 11, 2025 End: February 11, 2025 Team Status: Active Member Role Status Dates Rayshawn Chaudhary NP-C Primary Care Provider Active Start: February 18, 2025 End: February 18, 2025 Dr. Luis Carlos Zuluaga MD Attending Provider Active S tart: February 18, 2025 End: February 18, 2025 Dr. Branden Lance MD Referring Provider Active Start: February 18, 2025 End: February 18, 2025 Team Status: Inactive Member Role Status Dates Rayshawn Chaudhary NP-C Primary Care Provider Active Start: February 22, 2025 End: February 22, 2025 Dr. Branden Lance MD Attending Provider Active Start: February 22, 2025 End: February 22, 2025 Dr. Branden Lance MD Referring Provider Active Start: February 22, 2025 End: February 22, 2025 Team Status: Active Member Role Status Dates Rayshawn Chaudhary NP-C Primary Care Provider Active Start: February 22, 2025 Dr. Branden Lance MD Attending Provider Active Start: February 22, 2025 Dr. Branden Lance MD Referring Provider Active Start: February 22, 2025 Dr. Branden Lance MD Other Provider Active Start: February 22, 2025 Team Status: Inactive Member Role Status Dates Rayshawn Chaudhary NP-C Primary Care Provider Active Start: March 09, 2025 End: March 09, 2025 Rayshawn Chaudhary NP-C Referring Provider Active Start: March 09, 2025 End: March 09, 2025 Dr. Branden Lance MD Attending Provider Active Start: March 09, 2025 End: March 09, 2025 Team Status: Active Member Role Status Dates Rayshawn Chaudhary HARNESS INSTALLER-C Primary Care Provider Active Start: March 15, 2025 Demetra Lorenzo Attending Provider Active Start: March 15, 2025 Team Status: Inactive Member Role Status Dates Rayshawn Chaudhary , HARNESS INSTALLER-C Primary Care Provider Active Start: March 16, 2025 End: March 16, 2025 Dr. Ximena Stanley MD Attending Provider Active Start: March 16, 2025 End: March 16, 2025 Dr. Branden Lance MD Referring Provider Active Start: March 16, 2025 End: March 16, 2025 Team Status: Inactive Member Role Status Dates Rayshawn Chaudhary HARNESS INSTALLER-C Primary Care Provider Active Start: March 25, 2025 End: March 25, 2025 Rayshawn Chaudhary HARNESS INSTALLER-C Referring Provider Active Start: March 25, 2025 End: March 25, 2025 Dr. Mehul Borja DO Attending Provider Active Start: March 25, 2025 End: March 25, 2025 Team Status: Active Member Role Status Dates Rayshawn Chaudhary HARNESS INSTALLER-C Primary Care Provider Active Start: March 30, 2025 Dr. Ximena Stanley MD Attending Provider Active Start: March 30, 2025 Dr. Ximena Stanley MD Referring Provider Active Start: March 30, 2025 Team Status: Active Member Role Status Dates Rayshawn Chaudhary HARNESS INSTALLER-C Primary Care Provider Active Start: March 30, 2025 Dr. Mehul Borja DO Attending Provider Active Start: March 30, 2025 Team Status: Inactive Member Role Status Dates Rayshawn Chaudhary HARNESS INSTALLER-C Primary Care Provider Active Start: April 04, 2025 End: April 04, 2025 Rayshawn Chaudhary HARNESS INSTALLER-C Referring Provider Active Start: April 04, 2025 End: April 04, 2025 Rayna Bazzi NP, HARNESS INSTALLER-C Attending Provider Active Start: April 04, 2025 End: April 04, 2025 Team Status: Inactive Member Role Status Dates Rayshawn Chaudhary , HARNESS INSTALLER-C Primary Care Provider Active Start: April 04, 2025 End: April 04, 2025 Dr. Margoth Villalpando DO Emergency Provider Active Start: April 04, 2025 End: April 04, 2025 Team Status: Active Member Role Status Dates Rayshawn Chaudhary , HARNESS INSTALLER-C Primary Care Provider Active Start: April 05, 2025 Dr. Mehul Borja DO Attending Provider Active Start: April 05, 2025 Team Status: Inactive Member Role Status Dates Rayshawn Chaudhary HARNESS INSTALLER-C Primary Care Provider Active Start: April 07, 2025 End: April 07, 2025 Dr. Wesly Leiva DO Emergency Provider Active Start : April 07, 2025 End: April 07, 2025 Team Status: Inactive Member Role Status Dates Rayshawn Chaudhary HARNESS INSTALLER-C Primary Care Provider Active Start: April 04, 2025 End: April 04, 2025 Dr. Margoth Villalpando DO Attending Provider Active Start: April 04, 2025 End: April 04, 2025 Dr. Margoth Villalpando DO Emergency Provider Active Start: April 04, 2025 End: April 04, 2025 Team Status: Active Member Role Status Dates Rayshawn Chaudhary HARNESS INSTALLER-C Primary Care Provider Active Start: April 07, 2025 Dr. Mehul Borja DO Attending Provider Active Start: April 07, 2025 Team Status: Active Member Role Status Dates Rayshawn Chaudhary HARNESS INSTALLER-C Primary Care Provider Active Start: April 08, 2025 Dr. Ximena Stanley MD Attending Provider Active Start: April 08, 2025 Dr. Ximena Stanley MD Referring Provider Active Start: April 08, 2025 Team Status: Active Member Role Status Dates Rayshawn Chaudhary HARNESS INSTALLER-C Primary Care Provider Active Start: April 08, 2025 Dr. Mehul Borja DO Attending Provider Active Start: April 08, 2025 Team Status: Inactive Member Role Status Dates Rayshawn Chaudhary HARNESS INSTALLER-C Primary Care Provider Active Start: April 11, 2025 End: April 11, 2025 Dr. Manoj Mehta MD Emergency Provider Active S tart: April 11, 2025 End: April 11, 2025 Team Status: Inactive Member Role Status Dates Rayshawn Chaudhary HARNESS INSTALLER-C Primary Care Provider Active Start: April 07, 2025 End: April 07, 2025 Dr. Wesly Leiva DO Attending Provider Active Start : April 07, 2025 End: April 07, 2025 Dr. Wesly Leiva DO Emergency Provider Active Start : April 07, 2025 End: April 07, 2025 Team Status: Inactive Member Role Status Dates Rayshawn Chaudhary HARNESS INSTALLER-C Primary Care Provider Active Start: April 11, 2025 End: April 11, 2025 Dr. Manoj Mehta MD Attending Provider Active S tart: April 11, 2025 End: April 11, 2025 Dr. Manoj Mehta MD Emergency Provider Active S tart: April 11, 2025 End: April 11, 2025 Team Status: Active Member Role Status Dates Rayshawn Chaudhary HARNESS INSTALLER-C Primary Care Provider Active Start: April 11, 2025 Dr. Mehul Borja DO Attending Provider Active Start: April 11, 2025 Team Status: Active Member Role Status Dates Rayshawn Chaudhary HARNESS INSTALLER-C Primary Care Provider Active Start: April 20, 2025 Dr. Mehul Borja DO Attending Provider Active Start: April 20, 2025 Team Status: Inactive Member Role Status Dates Rayshawn Chaudhary HARNESS INSTALLER-C Primary Care Provider Active Start: April 20, 2025 End: April 20, 2025 Rayshawn Chaudhary HARNESS INSTALLER-C Referring Provider Active Start: April 20, 2025 End: April 20, 2025 Dr. Mehul Borja DO Attending Provider Active Start: April 20, 2025 End: April 20, 2025 Team Status: Active Member Role Status Dates Rayshawn Chaudhary , HARNESS INSTALLER-C Primary Care Provider Active Start: April 20, 2025 Dr. Ximena Stanley MD Attending Provider Active Start: April 20, 2025 Dr. Ximena Stanley MD Referring Provider Active Start: April 20, 2025 Team Status: Inactive Member Role Status Dates Rayshawn Chaudhary , HARNESS INSTALLER-C Primary Care Provider Active Start: April 21, 2025 End: April 21, 2025 Rayshawn Chaudhary , HARNESS INSTALLER-C Referring Provider Active Start: April 21, 2025 End: April 21, 2025 Frances Sevilla NP, HARNESS INSTALLER-C Attending Provider Active Start: April 21, 2025 End: April 21, 2025 Team Status: Inactive Member Role Status Dates Rayshawn Chaudhary , HARNESS INSTALLER-C Primary Care Provider Active Start: April 23, 2025 End: April 23, 2025 Dr. Shaun Noriega , Attending Provider Activ e Start: April 23, 2025 End: April 23, 2025 Dr. Shaun Noriega , DO Emergency Provider Activ e Start: April 23, 2025 End: April 23, 2025 Team Status: Inactive Member Role Status Dates Rayshawn Chaudhary , HARNESS INSTALLER-C Primary Care Provider Active Start: April 26, 2025 End: April 26, 2025 Rayshawn Chaudhary , HARNESS INSTALLER-C Attending Provider Active Start: April 26, 2025 End: April 26, 2025 Rayshawn Chaudhary , HARNESS INSTALLER-C Referring Provider Active Start: April 26, 2025 End: April 26, 2025 Team Status: Active Member Role Status Dates Rayshawn Chaudhary , HARNESS INSTALLER-C Primary Care Provider Active Start: April 29, 2025 Rayshawn Chaudhary , HARNESS INSTALLER-C Attending Provider Active Start: April 29, 2025 Rayshawn Chaudhary , HARNESS INSTALLER-C Referring Provider Active Start: April 29, 2025 Team Status: Active Member Role Status Dates Rayshawn Chaudhary , HARNESS INSTALLER-C Primary Care Provider Active Start: March 30, 2025 Dr. Mehul Borja DO Attending Provider Active Start: March 30, 2025 Dr. Mehul Borja DO Referring Provider Active Start: March 30, 2025 Team Status: Inactive Member Role Status Dates Rayshawn Chaudhary , HARNESS INSTALLER-C Primary Care Provider Active Start: April 29, 2025 End: April 29, 2025 Rayshawn Chaudhary , HARNESS INSTALLER-C Attending Provider Active Start: April 29, 2025 End: April 29, 2025 Rayshawn Chaudhary , HARNESS INSTALLER-C Referring Provider Active Start: April 29, 2025 End: April 29, 2025 Team Status: Active Member Role Status Dates Rayshawn Chaudhary , HARNESS INSTALLER-C Primary Care Provider Active Start: April 05, 2025 Dr. Mehul Borja DO Attending Provider Active Start: April 05, 2025 Dr. Mehul Borja DO Referring Provider Active Start: April 05, 2025 Team Status: Active Member Role Status Dates Rayshawn Chaudhary , HARNESS INSTALLER-C Primary Care Provider Active Start: April 07, 2025 Dr. Mehul Borja DO Attending Provider Active Start: April 07, 2025 Dr. Mehul Borja DO Referring Provider Active Start: April 07, 2025 Team Status: Active Member Role Status Dates Rayshawn Chaudhary , HARNESS INSTALLER-C Primary Care Provider Active Start: April 08, 2025 Dr. Mehul Borja DO Attending Provider Active Start: April 08, 2025 Dr. Mehul Borja DO Referring Provider Active Start: April 08, 2025 Team Status: Active Member Role Status Dates Rayshawn Chaudhary HARNESS INSTALLER-C Primary Care Provider Active Start: April 11, 2025 Dr. Mehul Borja DO Attending Provider Active Start: April 11, 2025 Dr. Mehul Borja DO Referring Provider Active Start: April 11, 2025 Team Status: Inactive Member Role Status Dates Rayshawn Chaudhary HARNESS INSTALLER-C Primary Care Provider Active Start: April 20, 2025 End: April 20, 2025 Dr. Mehul Borja DO Attending Provider Active Start: April 20, 2025 End: April 20, 2025 Dr. Mehul Borja DO Referring Provider Active Start: April 20, 2025 End: April 20, 2025 Team Status: Active Member Role Status Dates Rayshawn Chaudhary HARNESS INSTALLER-C Primary Care Provider Active Start: May 23, 2025 Rayshawn Chaudhary HARNESS INSTALLER-C Attending Provider Active Start: May 23, 2025 Rayshawn Chaudhary , HARNESS INSTALLER-C Referring Provider Active Start: May 23, 2025 Team Status: Active Member Role Status Dates Rayshawn Chaudhary HARNESS INSTALLER-C Primary Care Provider Active Start: May 23, 2025 Dr. Luis Carlos Zuluaga MD Attending Provider Active S tart: May 23, 2025 Team Status: Inactive Member Role Status Dates Rayshawn Chaudhary HARNESS INSTALLER-C Primary Care Provider Active Start: May 26, 2025 End: May 26, 2025 Rayshawn Chaudhary HARNESS INSTALLER-C Referring Provider Active Start: May 26, 2025 End: May 26, 2025 Dr. Mehul Borja DO Attending Provider Active Start: May 26, 2025 End: May 26, 2025 Team Status: Inactive Member Role Status Dates Rayshawn Chaudhary HARNESS INSTALLER-C Primary Care Provider Active Start: May 23, 2025 End: May 23, 2025 Rayshawn Chaudhary HARNESS INSTALLER-C Attending Provider Active Start: May 23, 2025 End: May 23, 2025 Rayshawn Chaudhary , HARNESS INSTALLER-C Referring Provider Active Start: May 23, 2025 End: May 23, 2025 Team Status: Active Member Role/Relationship Status Dates Rayshawn Chaudhary , HARNESS INSTALLER-C Primary Care Provider Active Team Status: Inactive Member Role/Relationship Status Dates Rayshawn Chaudhary , HARNESS INSTALLER-C Primary Care Provider Active Start: March 09, 2025 End: March 09, 2025 Rayshawn Maurice , HARNESS INSTALLER-C Referring Provider Active Start: March 09, 2025 End: March 09, 2025 Dr. Branden Lance MD Attending Provider Active Start: March 09, 2025 End: March 09, 2025 Team Status: Active Member Role/Relationship Status Dates Rayshawn Chaudhary , HARNESS INSTALLER-C Primary Care Provider Active Start: March 15, 2025 Sukhwindershakirarafael Lorenzo Attending Provider Active Start: March 15, 2025 Team Status: Inactive Member Role/Relationship Status Dates Rayshawn Chaudhary , HARNESS INSTALLER-C Primary Care Provider Active Start: March 16, 2025 End: March 16, 2025 Dr. Ximena Stanley MD Attending Provider Active Start: March 16, 2025 End: March 16, 2025 Dr. Branden Lance MD Referring Provider Active Start: March 16, 2025 End: March 16, 2025 Team Status: Inactive Member Role/Relationship Status Dates Rayshawn Chaudhary , HARNESS INSTALLER-C Primary Care Provider Active Start: March 25, 2025 End: March 25, 2025 Rayshawn Chaudhary HARNESS INSTALLER-C Referring Provider Active Start: March 25, 2025 End: March 25, 2025 Dr. Mehul Borja DO Attending Provider Active Start: March 25, 2025 End: March 25, 2025 Team Status: Active Member Role/Relationship Status Dates Rayshawn Chaudhary HARNESS INSTALLER-C Primary Care Provider Active Start: March 30, 2025 Dr. Mehul Borja DO Attending Provider Active Start: March 30, 2025 Dr. Mehul Borja DO Referring Provider Active Start: March 30, 2025 Team Status: Inactive Member Role/Relationship Status Dates Rayshawn Chaudhary , HARNESS INSTALLER-C Primary Care Provider Active Start: April 04, 2025 End: April 04, 2025 Rayshawn Chaudhary HARNESS INSTALLER-C Referring Provider Active Start: April 04, 2025 End: April 04, 2025 Rayna Bazzi NP, HARNESS INSTALLER-C Attending Provider Active Start: April 04, 2025 End: April 04, 2025 Team Status: Inactive Member Role/Relationship Status Dates Rayshawn Chaudhary , HARNESS INSTALLER-C Primary Care Provider Active Start: April 04, 2025 End: April 04, 2025 Dr. Margoth Villalpando DO Attending Provider Active Start: April 04, 2025 End: April 04, 2025 Dr. Margoth Villalpando DO Emergency Provider Active Start: April 04, 2025 End: April 04, 2025 Team Status: Active Member Role/Relationship Status Dates Rayshawn Chaudhary , HARNESS INSTALLER-C Primary Care Provider Active Start: April 05, 2025 Dr. Mehul Borja DO Attending Provider Active Start: April 05, 2025 Dr. Mehul Borja DO Referring Provider Active Start: April 05, 2025 Team Status: Inactive Member Role/Relationship Status Dates Rayshawn Chaudhary , HARNESS INSTALLER-C Primary Care Provider Active Start: April 07, 2025 End: April 07, 2025 Dr. Wesly Leiva DO Attending Provider Active Start : April 07, 2025 End: April 07, 2025 Dr. Wesly Leiva DO Emergency Provider Active Start : April 07, 2025 End: April 07, 2025 Team Status: Active Member Role/Relationship Status Dates Rayshawn Chaudhary , HARNESS INSTALLER-C Primary Care Provider Active Start: April 07, 2025 Dr. Mehul Borja DO Attending Provider Active Start: April 07, 2025 Dr. Mehul Borja DO Referring Provider Active Start: April 07, 2025 Team Status: Active Member Role/Relationship Status Dates Rayshawn Chaudhary , HARNESS INSTALLER-C Primary Care Provider Active Start: April 08, 2025 Dr. Mehul Borja DO Attending Provider Active Start: April 08, 2025 Dr. Mehul Borja DO Referring Provider Active Start: April 08, 2025 Team Status: Inactive Member Role/Relationship Status Dates Rayshawn Chaudhary , HARNESS INSTALLER-C Primary Care Provider Active Start: April 11, 2025 End: April 11, 2025 Dr. Manoj Mehta MD Attending Provider Active S tart: April 11, 2025 End: April 11, 2025 Dr. Manoj Mehta MD Emergency Provider Active S tart: April 11, 2025 End: April 11, 2025 Team Status: Active Member Role/Relationship Status Dates Rayshawn Chaudhary , HARNESS INSTALLER-C Primary Care Provider Active Start: April 11, 2025 Dr. Mehul Borja DO Attending Provider Active Start: April 11, 2025 Dr. Mehul Borja DO Referring Provider Active Start: April 11, 2025 Team Status: Active Member Role/Relationship Status Dates Rayshawn Chaudhary , HARNESS INSTALLER-C Primary Care Provider Active Start: April 20, 2025 Dr. Mehul Borja DO Attending Provider Active Start: April 20, 2025 Team Status: Inactive Member Role/Relationship Status Dates Rayshawn Chaudhary , HARNESS INSTALLER-C Primary Care Provider Active Start: April 20, 2025 End: April 20, 2025 Dr. Mehul Borja DO Attending Provider Active Start: April 20, 2025 End: April 20, 2025 Dr. Mehul Borja DO Referring Provider Active Start: April 20, 2025 End: April 20, 2025 Team Status: Active Member Role/Relationship Status Dates Rayshawn Chaudhary , HARNESS INSTALLER-C Primary Care Provider Active Start: April 20, 2025 Dr. Ximena Stanley MD Attending Provider Active Start: April 20, 2025 Dr. Ximena Stanley MD Referring Provider Active Start: April 20, 2025 Team Status: Inactive Member Role/Relationship Status Dates Rayshawn Chaudhary HARNESS INSTALLER-C Primary Care Provider Active Start: April 21, 2025 End: April 21, 2025 Rayshawn Chaudhary , HARNESS INSTALLER-C Referring Provider Active Start: April 21, 2025 End: April 21, 2025 Frances Sevilla NP, HARNESS INSTALLER-C Attending Provider Active Start: April 21, 2025 End: April 21, 2025 Team Status: Inactive Member Role/Relationship Status Dates Rayshawn Chaudhary , HARNESS INSTALLER-C Primary Care Provider Active Start: April 23, 2025 End: April 23, 2025 Dr. Shaun Noriega , Attending Provider Activ e Start: April 23, 2025 End: April 23, 2025 Dr. Shaun Noriega , Emergency Provider Activ e Start: April 23, 2025 End: April 23, 2025 Team Status: Inactive Member Role/Relationship Status Dates Rayshawn Chaudhary HARNESS INSTALLER-C Primary Care Provider Active Start: April 26, 2025 End: April 26, 2025 Rayshawn Chaudhary HARNESS INSTALLER-C Attending Provider Active Start: April 26, 2025 End: April 26, 2025 Rayshawn Chaudhary HARNESS INSTALLER-C Referring Provider Active Start: April 26, 2025 End: April 26, 2025 Team Status: Inactive Member Role/Relationship Status Dates Rayshawn Chaudhary , HARNESS INSTALLER-C Primary Care Provider Active Start: April 29, 2025 End: April 29, 2025 Rayshawn Chaudhary HARNESS INSTALLER-C Attending Provider Active Start: April 29, 2025 End: April 29, 2025 Rayshawn Chaudhary , HARNESS INSTALLER-C Referring Provider Active Start: April 29, 2025 End: April 29, 2025 Team Status: Inactive Member Role/Relationship Status Dates Rayshawn Chaudhary , HARNESS INSTALLER-C Primary Care Provider Active Start: May 23, 2025 End: May 23, 2025 Rayshawn Chaudhary , HARNESS INSTALLER-C Attending Provider Active Start: May 23, 2025 End: May 23, 2025 Rayshawn Chaudhary , HARNESS INSTALLER-C Referring Provider Active Start: May 23, 2025 End: May 23, 2025 Team Status: Active Member Role/Relationship Status Dates Rayshawn Chaudhary , HARNESS INSTALLER-C Primary Care Provider Active Start: May 23, 2025 Dr. Luis Carlos Zuluaga MD Attending Provider Active S tart: May 23, 2025 Team Status: Inactive Member Role/Relationship Status Dates Rayshawn Chaudhary , HARNESS INSTALLER-C Primary Care Provider Active Start: May 26, 2025 End: May 26, 2025 Rayshawn Chaudhary , HARNESS INSTALLER-C Referring Provider Active Start: May 26, 2025 End: May 26, 2025 Dr. Mehul Borja DO Attending Provider Active Start: May 26, 2025 End: May 26, 2025 Team Status: Inactive Member Role/Relationship Status Dates Rayshawn Chaudhary , HARNESS INSTALLER-C Primary Care Provider Active Start: May 31, 2025 Dr. Dia Villagran MD Attending Provider Active Start: May 31, 2025 Team Status: Inactive Member Role/Relationship Status Dates Rayshawn Chaudhary , HARNESS INSTALLER-C Primary Care Provider Active Start: July 05, 2025 End: July 05, 2025 Rayshawn Chaudhary , HARNESS INSTALLER-C Referring Provider Active Start: July 05, 2025 End: July 05, 2025 Rayna Bazzi NP, HARNESS INSTALLER-C Attending Provider Active Start: July 05, 2025 End: July 05, 2025 Team Status: Inactive Member Role/Relationship Status Dates Rayshawn Chaudhary , HARNESS INSTALLER-C Primary Care Provider Active Start: March 25, 2025 End: March 25, 2025 Rayshawn Chaudhary , HARNESS INSTALLER-C Referring Provider Active Start: March 25, 2025 End: March 25, 2025 Dr. Mehul Borja DO Attending Provider Active Start: March 25, 2025 End: March 25, 2025 Team Status: Active Member Role/Relationship Status Dates Rayshawn Chaudhary , HARNESS INSTALLER-C Primary Care Provider Active Start: March 30, 2025 Dr. Mehul Borja DO Attending Provider Active Start: March 30, 2025 Dr. Mehul Borja DO Referring Provider Active Start: March 30, 2025 Team Status: Inactive Member Role/Relationship Status Dates Rayshawn Maurice , HARNESS INSTALLER-C Primary Care Provider Active Start: April 04, 2025 End: April 04, 2025 Rayshawn Maurice , HARNESS INSTALLER-C Referring Provider Active Start: April 04, 2025 End: April 04, 2025 Rayna Jluis MCGRATH, HARNESS INSTALLER-C Attending Provider Active Start: April 04, 2025 End: April 04, 2025 Team Status: Inactive Member Role/Relationship Status Dates Rayshawnyuni Chaudhary , HARNESS INSTALLER-C Primary Care Provider Active Start: April 04, 2025 End: April 04, 2025 Dr. Margoth Villalpando DO Attending Provider Active Start: April 04, 2025 End: April 04, 2025 Dr. Margoth Villalpando DO Emergency Provider Active Start: April 04, 2025 End: April 04, 2025 Team Status: Active Member Role/Relationship Status Dates Rayshawn Chaudhary , HARNESS INSTALLER-C Primary Care Provider Active Start: April 05, 2025 Dr. Mehul Borja DO Attending Provider Active Start: April 05, 2025 Dr. Mehul Borja DO Referring Provider Active Start: April 05, 2025 Team Status: Inactive Member Role/Relationship Status Dates Rayshawn Maurice , HARNESS INSTALLER-C Primary Care Provider Active Start: April 07, 2025 End: April 07, 2025 Dr. Wesly Leiva DO Attending Provider Active Start : April 07, 2025 End: April 07, 2025 Dr. Wesly Leiva DO Emergency Provider Active Start : April 07, 2025 End: April 07, 2025 Team Status: Active Member Role/Relationship Status Dates Rayshawn Chaudhary , HARNESS INSTALLER-C Primary Care Provider Active Start: April 07, 2025 Dr. Mehul Borja DO Attending Provider Active Start: April 07, 2025 Dr. Mehul Borja DO Referring Provider Active Start: April 07, 2025 Team Status: Active Member Role/Relationship Status Dates Rayshawn Chaudhary , HARNESS INSTALLER-C Primary Care Provider Active Start: April 08, 2025 Dr. Mehul Borja DO Attending Provider Active Start: April 08, 2025 Dr. Mehul Borja DO Referring Provider Active Start: April 08, 2025 Team Status: Inactive Member Role/Relationship Status Dates Rayshawn Chaudhary , H[employer]ESS INSTALLER-C Primary Care Provider Active Start: April 11, 2025 End: April 11, 2025 Dr. Manoj Mehta MD Attending Provider Active S tart: April 11, 2025 End: April 11, 2025 Dr. Manoj Mehta MD Emergency Provider Active S tart: April 11, 2025 End: April 11, 2025 Team Status: Active Member Role/Relationship Status Dates Rayshawn Chaudhary , HARNESS INSTALLER-C Primary Care Provider Active Start: April 11, 2025 Dr. Mehul Borja DO Attending Provider Active Start: April 11, 2025 Dr. Mehul Borja DO Referring Provider Active Start: April 11, 2025 Team Status: Active Member Role/Relationship Status Dates Rayshawn Chaudhary HARNESS INSTALLER-C Primary Care Provider Active Start: April 20, 2025 Dr. Mehul Borja DO Attending Provider Active Start: April 20, 2025 Team Status: Inactive Member Role/Relationship Status Dates Rayshawn Chaudhary , HARNESS INSTALLER-C Primary Care Provider Active Start: April 20, 2025 End: April 20, 2025 Dr. Mehul Borja DO Attending Provider Active Start: April 20, 2025 End: April 20, 2025 Dr. Mehul Borja DO Referring Provider Active Start: April 20, 2025 End: April 20, 2025 Team Status: Inactive Member Role/Relationship Status Dates Rayshawn Chaudhary , HARNESS INSTALLER-C Primary Care Provider Active Start: April 21, 2025 End: April 21, 2025 Rayshawn Chaudhary HARNESS INSTALLER-C Referring Provider Active Start: April 21, 2025 End: April 21, 2025 Frances Sevilla NP, HARNESS INSTALLER-C Attending Provider Active Start: April 21, 2025 End: April 21, 2025 Team Status: Inactive Member Role/Relationship Status Dates Rayshawn Chaudhary , HARNESS INSTALLER-C Primary Care Provider Active Start: April 23, 2025 End: April 23, 2025 Dr. Shaun Noriega , Attending Provider Activ e Start: April 23, 2025 End: April 23, 2025 Dr. Shaun Noriega , DO Emergency Provider Activ e Start: April 23, 2025 End: April 23, 2025 Team Status: Inactive Member Role/Relationship Status Dates Rayshawn Chaudhary , HARNESS INSTALLER-C Primary Care Provider Active Start: April 26, 2025 End: April 26, 2025 Rayshawn Chaudhary , HARNESS INSTALLER-C Attending Provider Active Start: April 26, 2025 End: April 26, 2025 Rayshawn Chaudhary , HARNESS INSTALLER-C Referring Provider Active Start: April 26, 2025 End: April 26, 2025 Team Status: Inactive Member Role/Relationship Status Dates Rayshawn Chaudhary , HARNESS INSTALLER-C Primary Care Provider Active Start: April 29, 2025 End: April 29, 2025 Rayshawn Chaudhary , HARNESS INSTALLER-C Attending Provider Active Start: April 29, 2025 End: April 29, 2025 Rayshawn Chaudhary , HARNESS INSTALLER-C Referring Provider Active Start: April 29, 2025 End: April 29, 2025 Team Status: Inactive Member Role/Relationship Status Dates Rayshawnyuni Chaudhary , HARNESS INSTALLER-C Primary Care Provider Active Start: May 23, 2025 End: May 23, 2025 Rayshawn Chaudhary , HARNESS INSTALLER-C Attending Provider Active Start: May 23, 2025 End: May 23, 2025 Rayshawn Chaudhary , HARNESS INSTALLER-C Referring Provider Active Start: May 23, 2025 End: May 23, 2025 Team Status: Active Member Role/Relationship Status Dates Rayshawn Chaudhary , HARNESS INSTALLER-C Primary Care Provider Active Start: May 23, 2025 Dr. Luis Carlos Zuluaga MD Attending Provider Active S tart: May 23, 2025 Team Status: Inactive Member Role/Relationship Status Dates Rayshawnyuni Chaudhary , HARNESS INSTALLER-C Primary Care Provider Active Start: May 26, 2025 End: May 26, 2025 Rayshawn Chaudhary , HARNESS INSTALLER-C Referring Provider Active Start: May 26, 2025 End: May 26, 2025 Dr. Mehul Borja DO Attending Provider Active Start: May 26, 2025 End: May 26, 2025 Team Status: Inactive Member Role/Relationship Status Dates Rayshawn Chaudhary , HARNESS INSTALLER-C Primary Care Provider Active Start: May 31, 2025 Dr. Dia Villagran MD Attending Provider Active Start: May 31, 2025 Team Status: Inactive Member Role/Relationship Status Dates Rayshawnyuni Chaudhary , HARNESS INSTALLER-C Primary Care Provider Active Start: July 05, 2025 End: July 05, 2025 Rayshawn Chaudhary , HARNESS INSTALLER-C Referring Provider Active Start: July 05, 2025 End: July 05, 2025 Rayna Bazzi HARNESS INSTALLER, HARNESS INSTALLER-C Attending Provider Active Start: July 05, 2025 End: July 05, 2025 Team Status: Inactive Member Role/Relationship Status Dates Rayshawn Chaudhary , HARNESS INSTALLER-C Primary Care Provider Active Start: July 21, 2025 End: July 21, 2025 Rayshawn Chaudhary , HARNESS INSTALLER-C Referring Provider Active Start: July 21, 2025 End: July 21, 2025 Frances Sevilla HARNESS INSTALLER, HARNESS INSTALLER-C Attending Provider Active Start: July 21, 2025 End: July 21, 2025 Team Status: Active Member Role/Relationship Status Dates Rayshawn Chaudhary , HARNESS INSTALLER-C Primary Care Provider Active Start: July 21, 2025 Dr. Ximena Stanley MD Attending Provider Active Start: July 21, 2025 Dr. Ximena Stanley MD Referring Provider Active Start: July 21, 2025 Team Status: Active Member Role/Relationship Status Dates Rayshawn Chaudhary , HARNESS INSTALLER-C Primary Care Provider Active Start: March 30, 2025 Dr. Mehul Borja DO Attending Provider Active Start: March 30, 2025 Dr. Mehul Borja DO Referring Provider Active Start: March 30, 2025 Team Status: Inactive Member Role/Relationship Status Dates Rayshawn Chaudhary , HARNESS INSTALLER-C Primary Care Provider Active Start: April 04, 2025 End: April 04, 2025 Rayshawn Chaudhary , HARNESS INSTALLER-C Referring Provider Active Start: April 04, 2025 End: April 04, 2025 Rayna Bazzi HARNESS INSTALLER, HARNESS INSTALLER-C Attending Provider Active Start: April 04, 2025 End: April 04, 2025 Team Status: Inactive Member Role/Relationship Status Dates Rayshawn Chaudhary , HARNESS INSTALLER-C Primary Care Provider Active Start: April 04, 2025 End: April 04, 2025 Dr. Margoth Villalpando DO Attending Provider Active Start: April 04, 2025 End: April 04, 2025 Dr. Margoth Villalpando DO Emergency Provider Active Start: April 04, 2025 End: April 04, 2025 Team Status: Active Member Role/Relationship Status Dates Rayshawn Chaudhary , HARNESS INSTALLER-C Primary Care Provider Active Start: April 05, 2025 Dr. Mehul Borja DO Attending Provider Active Start: April 05, 2025 Dr. Mehul Borja DO Referring Provider Active Start: April 05, 2025 Team Status: Inactive Member Role/Relationship Status Dates Rayshawn Chaudhary , HARNESS INSTALLER-C Primary Care Provider Active Start: April 07, 2025 End: April 07, 2025 Dr. Wesly Leiva DO Attending Provider Active Start : April 07, 2025 End: April 07, 2025 Dr. Wesly Leiva DO Emergency Provider Active Start : April 07, 2025 End: April 07, 2025 Team Status: Active Member Role/Relationship Status Dates Rayshawn Chaudhary , HARNESS INSTALLER-C Primary Care Provider Active Start: April 07, 2025 Dr. Mehul Borja DO Attending Provider Active Start: April 07, 2025 Dr. Mehul Borja DO Referring Provider Active Start: April 07, 2025 Team Status: Active Member Role/Relationship Status Dates Rayshawn Chaudhary , HARNESS INSTALLER-C Primary Care Provider Active Start: April 08, 2025 Dr. Mehul Borja DO Attending Provider Active Start: April 08, 2025 Dr. Mehul Borja DO Referring Provider Active Start: April 08, 2025 Team Status: Inactive Member Role/Relationship Status Dates Rayshawn Chaudhary , HARNESS INSTALLER-C Primary Care Provider Active Start: April 11, 2025 End: April 11, 2025 Dr. Manoj Mehta MD Attending Provider Active S tart: April 11, 2025 End: April 11, 2025 Dr. Manoj Mehta MD Emergency Provider Active S tart: April 11, 2025 End: April 11, 2025 Team Status: Active Member Role/Relationship Status Dates Rayshawn Chaudhary , HARNESS INSTALLER-C Primary Care Provider Active Start: April 11, 2025 Dr. Mehul Borja DO Attending Provider Active Start: April 11, 2025 Dr. Mehul Borja DO Referring Provider Active Start: April 11, 2025 Team Status: Active Member Role/Relationship Status Dates Rayshawn Chaudhary , HARNESS INSTALLER-C Primary Care Provider Active Start: April 20, 2025 Dr. Mehul Borja DO Attending Provider Active Start: April 20, 2025 Team Status: Inactive Member Role/Relationship Status Dates Rayshawn Chaudhary , HARNESS INSTALLER-C Primary Care Provider Active Start: April 20, 2025 End: April 20, 2025 Dr. Mehul Borja DO Attending Provider Active Start: April 20, 2025 End: April 20, 2025 Dr. Mehul Huong , DO Referring Provider Active Start: April 20, 2025 End: April 20, 2025 Team Status: Inactive Member Role/Relationship Status Dates Rayshawn Chaudhary HARNESS INSTALLER-C Primary Care Provider Active Start: April 21, 2025 End: April 21, 2025 Rayshawn Chaudhary HARNESS INSTALLER-C Referring Provider Active Start: April 21, 2025 End: April 21, 2025 Frances Sevilla NP, HARNESS INSTALLER-C Attending Provider Active Start: April 21, 2025 End: April 21, 2025 Team Status: Inactive Member Role/Relationship Status Dates Rayshawn Chaudhary HARNESS INSTALLER-C Primary Care Provider Active Start: April 23, 2025 End: April 23, 2025 Dr. Shaun Noriega , Attending Provider Activ e Start: April 23, 2025 End: April 23, 2025 Dr. Shaun Noriega , DO Emergency Provider Activ e Start: April 23, 2025 End: April 23, 2025 Team Status: Inactive Member Role/Relationship Status Dates Rayshawn Chaudhary HARNESS INSTALLER-C Primary Care Provider Active Start: April 26, 2025 End: April 26, 2025 Rayshawn Chaudhary HARNESS INSTALLER-C Attending Provider Active Start: April 26, 2025 End: April 26, 2025 Rayshawn Chaudhary HARNESS INSTALLER-C Referring Provider Active Start: April 26, 2025 End: April 26, 2025 Team Status: Inactive Member Role/Relationship Status Dates Rayshawn Chaudhary HARNESS INSTALLER-C Primary Care Provider Active Start: April 29, 2025 End: April 29, 2025 Rayshawn Chaudhary HARNESS INSTALLER-C Attending Provider Active Start: April 29, 2025 End: April 29, 2025 Rayshawn Chaudhary HARNESS INSTALLER-C Referring Provider Active Start: April 29, 2025 End: April 29, 2025 Team Status: Inactive Member Role/Relationship Status Dates Rayshawn Chaudhary HARNESS INSTALLER-C Primary Care Provider Active Start: May 23, 2025 End: May 23, 2025 Rayshawn Chaudhary HARNESS INSTALLER-C Attending Provider Active Start: May 23, 2025 End: May 23, 2025 Rayshawn Chaudhary HARNESS INSTALLER-C Referring Provider Active Start: May 23, 2025 End: May 23, 2025 Team Status: Active Member Role/Relationship Status Dates Rayshawn Chaudhary , HARNESS INSTALLER-C Primary Care Provider Active Start: May 23, 2025 Dr. Luis Carlos Zuluaga MD Attending Provider Active S tart: May 23, 2025 Team Status: Inactive Member Role/Relationship Status Dates Rayshawn Maurice , HARNESS INSTALLER-C Primary Care Provider Active Start: May 26, 2025 End: May 26, 2025 Rayshawn Chaudhary , HARNESS INSTALLER-C Referring Provider Active Start: May 26, 2025 End: May 26, 2025 Dr. Mehul Borja DO Attending Provider Active Start: May 26, 2025 End: May 26, 2025 Team Status: Inactive Member Role/Relationship Status Dates Rayshawn Chaudhary , HARNESS INSTALLER-C Primary Care Provider Active Start: May 31, 2025 Dr. Dia Villagran MD Attending Provider Active Start: May 31, 2025 Team Status: Inactive Member Role/Relationship Status Dates Rayshawn Maurice , HARNESS INSTALLER-C Primary Care Provider Active Start: July 05, 2025 End: July 05, 2025 Rayshawn Chaudhary , HARNESS INSTALLER-C Referring Provider Active Start: July 05, 2025 End: July 05, 2025 Rayna Bazzi HARNESS INSTALLER, HARNESS INSTALLER-C Attending Provider Active Start: July 05, 2025 End: July 05, 2025 Team Status: Inactive Member Role/Relationship Status Dates Rayshawn Maurice , HARNESS INSTALLER-C Primary Care Provider Active Start: July 21, 2025 End: July 21, 2025 Rayshawn Chaudhary , HARNESS INSTALLER-C Referring Provider Active Start: July 21, 2025 End: July 21, 2025 Frances Sevilla HARNESS INSTALLER, HARNESS INSTALLER-C Attending Provider Active Start: July 21, 2025 End: July 21, 2025 Team Status: Active Member Role/Relationship Status Dates Rayshawnyuni Chaudhary , HARNESS INSTALLER-C Primary Care Provider Active Start: July 21, 2025 Dr. Ximena Stanley MD Attending Provider Active Start: July 21, 2025 Dr. Ximena Stanley MD Referring Provider Active Start: July 21, 2025 Team Status: Inactive Member Role/Relationship Status Dates Rayshawnyuni Chaudhary , HARNESS INSTALLER-C Primary Care Provider Active Start: July 26, 2025 End: July 26, 2025 Rayshawn Chaudhary , HARNESS INSTALLER-C Referring Provider Active Start: July 26, 2025 End: July 26, 2025 Dr. Dia Villagran MD Attending Provider Active Start: July 26, 2025 End: July 26, 2025 Team Status: Active Member Role/Relationship Status Dates Rayshawn Chaudhary HARNESS INSTALLER-C Primary care physician Active Team Status: Inactive Member Role/Relationship Status Dates Rayshawn Chaudhary HARNESS INSTALLER-C Primary care physician Active Start: May 23, 2025 End: May 23, 2025 Rayshawn Chaudhary , HARNESS INSTALLER-C Attending physician Active Start: May 23, 2025 End: May 23, 2025 Rayshawn Chaudhary HARNESS INSTALLER-C Referring Provider Active Start: May 23, 2025 End: May 23, 2025 Team Status: Active Member Role/Relationship Status Dates Rayshawn Chaudhary HARNESS INSTALLER-C Primary care physician Active Start: May 23, 2025 Dr. Luis Carlos Zuluaga MD Attending physician Active Start: May 23, 2025 Team Status: Inactive Member Role/Relationship Status Dates Rayshawn Chaudhary , HARNESS INSTALLER-C Primary care physician Active Start: May 26, 2025 End: May 26, 2025 Rayshawn Chaudhary HARNESS INSTALLER-C Referring Provider Active Start: May 26, 2025 End: May 26, 2025 Dr. Mehul Borja DO Attending physician Active Start: May 26, 2025 End: May 26, 2025 Team Status: Inactive Member Role/Relationship Status Dates Rayshawn Chaudhary HARNESS INSTALLER-C Primary care physician Active Start: May 31, 2025 Dr. Dia Villagran MD Attending physician Active Start: May 31, 2025 Team Status: Inactive Member Role/Relationship Status Dates Rayshawn Chaudhary HARNESS INSTALLER-C Primary care physician Active Start: July 05, 2025 End: July 05, 2025 Rayshawn Chaudhary HARNESS INSTALLER-C Referring Provider Active Start: July 05, 2025 End: July 05, 2025 Rayna Bazzi NP, HARNESS INSTALLER-C Attending physician Active Start: July 05, 2025 End: July 05, 2025 Team Status: Inactive Member Role/Relationship Status Dates Rayshawn Chaudhary HARNESS INSTALLER-C Primary care physician Active Start: July 21, 2025 End: July 21, 2025 Rayshawn Chaudhary , HARNESS INSTALLER-C Referring Provider Active Start: July 21, 2025 End: July 21, 2025 Frances Sevilla NP, HARNESS INSTALLER-C Attending physician Active Start: July 21, 2025 End: July 21, 2025 Team Status: Active Member Role/Relationship Status Dates NONA Dickerson Primary care physician Active Start: July 21, 2025 Dr. Ximena Stanley MD Attending physician Active Start: July 21, 2025 Dr. Ximena Stanley MD Referring Provider Active Start: July 21, 2025 Team Status: Inactive Member Role/Relationship Status Dates Rayshawn Chaudhary NP-C Primary care physician Active Start: July 26, 2025 End: July 26, 2025 NONA Dickerson Referring Provider Active Start: July 26, 2025 End: July 26, 2025 Dr. Dia Villagran MD Attending physician Active Start: July 26, 2025 End: July 26, 2025 Team Status: Inactive Member Role/Relationship Status Dates NONA Dickerson Primary care physician Active Start: August 11, 2025 End: August 11, 2025 NONA Dickerson Attending physician Active Start: August 11, 2025 End: August 11, 2025 NONA Dickerson Referring Provider Active Start: August 11, 2025 End: August 11, 2025 <item> Privacy Markings (unrecogniz ed section and content) Section Author: Usha Grullon PROHIBITION ON REDISCLOSURE OF CONFIDENTIAL INFORMATION This notice accompanies a disclosure of information concerning a client made to you with the consent of such client. INFORMATION SOURCE (unrecogn ized section and content) DATE CREATED AUTHOR [facility]/2023 [facility] DATE CREATED AUTHOR AUTHOR'S ORGANIZ ATION 03/17/2023 [facility] DATE CREATED AUTHOR AUTHOR'S ORGANIZ ATION 03/17/2025 [facility] DATE CREATED AUTHOR AUTHOR'S ORGANIZ ATION 10/03/2025 [facility] DATE CREATED AUTHOR AUTHOR'S ORGANIZ ATION 10/05/2025 [facility] FOR RECORDS PERTAINING TO PATIENTS WHO ARE OR HAVE BEEN ENROLLED IN A CHEMICAL DEPENDENCY/SUBSTANCEABUSE PROGRAM, SOME INFORMATION MAY BE OMITTED. This clinical summary was aggregated from multiple sources. Caution should be exercised in using it in the provision of clinical care. This summary normalizes information from multiple sources, and as a consequence, information in this document may materially change the coding, format and clinical context of patient data. In addition, data may be omitted in some cases. CLINICAL DECISIONS SHOULD BE BASED ON THE PRIMARY CLINICAL RECORDS. [facility]. provides no warranty or guarantee of the accuracy or completeness of information in this document.
--- NOTE | 2025-10-07 19:53 | EDS_ITS ---
HPI History of Present Illness Chief Complaint: Constipation Narrative Narrative: Chief complaint and HPI: 79-year-old female with past medical history of HTN, GERD, HLD presents for evaluation of constipation. Patient states she had a left knee replacement on 09/27. Has been taking narcotics, oxycodone every 4 hours. Taking senna twice a day. Patient states she has been constipated since her surgery. Last bowel movement was this afternoon but constipated. Endorses abdominal bloating without pain. Denies any fever, chills, shortness of breath, chest pain, nausea, vomiting, dysuria. Review of systems: See HPI Medications: As listed on the chart Allergies: As listed on the chart PFSH: Per chart Vital signs: As listed on the chart. Reviewed. Physical exam: Gen: A&O x3, NAD Head: Normocephalic, atraumatic Eyes: No sclera icterus, conjunctiva clear ENT: Moist mucous membranes CV: RRR, no murmurs Resp: Lungs CTA BL, no w/r/c GI: Abd soft, non-distended, non-tender, no r/r/g Musc: Moves all extremities Skin: Warm, dryt Psych: Cooperative, appropriate mood and affect PFSH PFSH Medical History Stress incontinence Vaginal atrophy UTI (urinary tract infection) Encounter for education Osteopenia Cancer Wears glasses Post-menopausal Arthritis Low iron Fatty liver History of hiatal hernia Non-smoker History of pain when walking History of echocardiogram History of stress test GERD (gastroesophageal reflux disease) Vertigo Hyperlipidemia Home Medications ?Medication ?Instructions ?Recorded ?Last Taken ?Type fenofibric acid (choline) 135 mg 135 mg PO DAILY 02/2804/03/25 History capsule,delayed release calcium 600 mg (as carbonate)-vit 1 tab PO DAILY 06/0504/04/25 History D3 10 mcg (400 unit) chewable tablet (Calcium 600 with Vitamin D3) meclizine 25 mg tablet 25 mg PO DAILY PRN vertigo 0 06/05/22 04/04/25 History pantoprazole 40 mg tablet,delayed 40 mg PO DAILY #14 t abs 03/09/23 04/04/25 Rx release Mccoy Revive 2 cap PO DAILY 10/18/24 05/03/25 History ascorbic acid (vitamin C) 500 mg 500 mg PO DAILY 01/2004/04/25 History tablet (C-500) boric acid 600 mg vaginal 600 mg vaginal WE 01/20/25 0 03/30/25 History suppository d-mannose 500 mg capsule 500 mg PO BID 01/20/2504/04 History vitamin E 268 mg (400 unit) capsule 268 mg PO DAILY 04/04/25 History alprazolam 0.5 mg tablet (Xanax) 0.5 mg PO DAILY anxie ty #20 tabs 04/07/25 Unknown Rx sertraline 50 mg tablet (Zoloft) 50 mg PO DAILY #30 ta bs 04/07/25 Unknown Rx anastrozole 1 mg tablet 1 mg PO DAILY #90 tabs 04/21 Unknown Rx hydralazine 25 mg tablet 25 mg PO TID PRN blood press ure 04/21/25 Unknown Hist ory amlodipine 5 mg tablet 5 mg PO DAILY 04/23/25 Unkno wn History methenamine hippurate 1 gram tablet 1 g PO BID 5 Unknown History nitrofurantoin 100 mg PO BID #14 caps 07/26 Unknown Rx monohydrate/macrocrystals 100 mg capsule (Macrobid) nitrofurantoin 100 mg PO BID #14 caps 07/28 Unknown Rx monohydrate/macrocrystals 100 mg capsule (Macrobid) nystatin 100,000 unit/gram topical 1 applic topical BI D #30 grams 07/29/25 Unknown Rx ointment Allergy/AdvReac Type Severity Reaction Status Date / Time sulfamethoxazole (From Allergy Mild Other Verified 10/07/25 16:56 Bactrim) trimethoprim (From Bactrim) Allergy Mild Other Verified 10/07/25 16:56 chlorhexidine (From Allergy Rash Verified 10/07/25 16:56 ChloraPrep Clear) potassium clavulanate (From Allergy Rash Verified 10/07/25 16:56 Augmentin) amoxicillin trihydrate (From AdvReac Rash Verified 10/07/25 16:56 Augmentin) Sulfa (Sulfonamide AdvReac Other Verified 10/07/25 16:56 Antibiotics) Family History Father Heart disease CVA (cerebral vascular accident) Surgical History Status post partial mastectomy of left breast History of breast lump/mass excision History of surgery on wrist History of surgery on wrist History of esophagogastroduodenoscopy (EGD) Hx of colonoscopy H/O tubal ligation Social History Smoking Status: Never smoker alcohol intake: current details: social substance use type: does not use caffeine: Yes frequency: 1-2 times per week seatbelt use: always do you feel safe at home: Yes additional social history: (Matias) EXAM Physical Exam Const Vital Signs: 10/07/25 16:55 10/07/25 18:47 10/07/25 20:00 Temperature 98.0 F Temperature Source Oral Pulse Rate 84 84 69 Respiratory Rate 17 18 16 Blood Pressure 151/72 H 148/80 H 168/64 H Blood Pressure Mean 98 102 98 Pulse Ox 92 98 97 Oxygen Delivery Method Room Air Room Air 10/07/25 22:00 10/07/25 22:43 Temperature 98.0 F Temperature Source Pulse Rate 77 72 Respiratory Rate 18 16 Blood Pressure 194/55 H 178/69 H Blood Pressure Mean 101 105 Pulse Ox 98 97 Oxygen Delivery Method Room Air MDM MDM MDM Narrative Medical decision making narrative: 79-year-old female with past medical history of HTN, GERD, HLD presents for evaluation of constipation. Patient states she had a left knee replacement on 09/27. Has been taking narcotics, oxycodone every 4 hours. Taking senna twice a day. Patient states she has been constipated since her surgery. Last bowel movement was this afternoon but constipated. Endorses abdominal bloating without pain. Differential diagnosis includes but is not limited to c onstipation, narcotic side effect, electrolyte abnormality, ileus, obstruction. NS bolus ordered. Laboratory workup ordered including CT abdomen pelvis. CBC without leukocytosis or anemia. CMP unremarkable except for hypoglycemia of 67. Will get bfope-xe-fejg glucose. Lipase unremarkable. CT abdomen pelvis shows no acute findings in the abdomen or pelvis. No significant constipation. Gold moreno does have a vaginal ring. She has left renal cyst. At this point in time, I suspect patient's constipation is secondary to her narcotic use. She is not full of stool and therefore I do not think she requires any enema. Recommend continuing her home bowel regimen. Recommend daily MiraLAX. Recommend limiting narcotic use as needed. Follow-up with PCP. Return precautions explained. She confirmed understand the plan. Patient able to discharge home. Afyzu-sh-hexo glucose was 103. Impression: 1. Constipation 2. Recent left knee replacement Lab Data Labs: Laboratory Results - last 24 hr 10/07/25 20:03 WBC 9.2 RBC 4.27 Hgb 12.0 Hct 36.8 L MCV 86.2 MCH 28.1 MCHC 32.6 RDW Std Deviation 51.5 H RDW Coeff of Kimi 16.3 H Plt Count 479 H MPV 9.2 Immature Gran % (Auto) 0.200 Neut % (Auto) 65.0 Lymph % (Auto) 23.3 [place] % (Auto) 9.8 Eos % (Auto) 1.2 Baso % (Auto) 0.5 Absolute Neuts (auto) 6.0 Absolute Lymphs (auto) 2.14 Nucleated RBC % 0 Sodium 137 Potassium 3.8 Chloride 100 Carbon Dioxide 25.1 Anion Gap 12 BUN 15 Creatinine 1.09 Estim Creat Clear Calc 40.17 L Est GFR (MDRD) Non-Af 52 L BUN/Creatinine Ratio 13.9 Glucose 67 L Calcium 9.0 Total Bilirubin 0.41 AST 17 ALT 13 Alkaline Phosphatase 36 Total Protein 5.6 L Albumin 3.6 Globulin 2.0 L Albumin/Globulin Ratio 1.8 Lipase 54 Radiography Diagnostic Testing: Clinical Impression(s) from Imaging Studies Abdomen/Pelvis CT 10/07/25 19:37 IMPRESSION: 1. No acute findings in the abdomen or pelvis. 2. Left renal cyst measures 6.4 cm. Reading [facility] Discharge Plan Triage Chief Complaint: Constipation ED Provider: Shaun Noriega Dx/Rx/DC Orders Clinical Impression: Constipation Instructions: Eating a High-Fiber Diet, ED Constipation (Adult) Prescriptions: No Action meclizine 25 mg tablet 25 mg PO DAILY PRN (Reason: vertigo) Calcium 600 with Vitamin D3 600 mg-10 mcg (400 unit) tablet,chewable 1 tab PO DAILY Mccoy Revive 2 cap PO DAILY hydralazine 25 mg tablet 25 mg PO TID PRN (Reason: blood pressure) anastrozole 1 mg tablet 1 mg PO DAILY Qty: 90 3RF methenamine hippurate 1 gram tablet 1 g PO BID nitrofurantoin monohyd/m-cryst [Macrobid] 100 mg capsule 100 mg PO BID Qty: 14 0RF Rx Instructions: must administer with a meal/food hold the methenamine while on antibiotics nitrofurantoin monohyd/m-cryst [Macrobid] 100 mg capsule 100 mg PO BID Qty: 14 0RF Rx Instructions: must administer with a meal/food fenofibric acid (choline) 135 mg capsule,delayed release(DR/EC) 135 mg PO DAILY Patient Comments: Take 1 Capsule by mouth daily pantoprazole 40 mg tablet,delayed release (DR/EC) 40 mg PO DAILY Qty: 14 0RF sertraline [Zoloft] 50 mg tablet 50 mg PO DAILY Qty: 30 0RF alprazolam [Xanax] 0.5 mg tablet 0.5 mg PO DAILY Qty: 20 0RF amlodipine 5 mg tablet 5 mg PO DAILY d-mannose 500 mg capsule 500 mg PO BID boric acid 600 mg suppository 600 mg vaginal WE vitamin E 268 mg (400 unit) capsule 268 mg PO DAILY ascorbic acid (vitamin C) [C-500] 500 mg tablet 500 mg PO DAILY nystatin 100,000 unit/gram ointment 1 applic topical BID Qty: 30 3RF Primary Care Provider: Kiana Chaudhary Referrals: Kiana Chaudhary NP-C [Primary Care Provider, Internal Medicine] - 3-5 Days Activity Restrictions/Additional Instructions: Follow-up with primary care physician. Return Print Language: Hebrew Disposition Disposition: Home, Self Care
[2025-10-07 20:00] VITALS: BP 168/64; PULSE 69; RESP 16; O2SAT 97
[2025-10-07] MEDS: 0.9% Normal Saline (1000mL) 1,000 ML 999 ML IV (20:04)
[2025-10-07 20:12] LABS: Hematocrit 36.8 % (37-47); Hemoglobin 12.0 g/dL (12.0-15.0); Immature Granulocytes Count 0.020 X10^3/uL (0.0-0.0); Mean Corp Hgb Conc 32.6 g/dL (32-36); Mean Corpuscular Volume 86.2 fL (81-99); Mean Platelet Vol. 9.2 fl (6.2-12.0); NRBC Flagged by Analyzer 0 % (0-5); Platelet Count 479 K/mm3 (150-450); RBC Distribution Width CV 16.3 % (11.6-14.6); RBC Distribution Width SD 51.5 fl (35.1-43.9); Red Blood Count 4.27 M/mm3 (4.2-5.4); White Blood Count 9.2 K/mm3 (4.4-11.0)
[2025-10-07 20:36] LABS: AST(SGOT) 17 U/L (<=31); Alanine Aminotransfer ALT/SGPT 13 U/L (<=34); Albumin, Serum 3.6 g/dL (3.4-4.8); Alkaline Phosphatase 36 U/L (35-104); Anion Gap 12 (5-15); BUN 15 mg/dL (4-19); BUN/Creat Ratio 13.9 RATIO (10-20); Calcium,Total 9.0 mg/dL (7.6-11.0); Carbon Dioxide 25.1 mmol/L (21.0-32.0); Chloride 100 mmol/L (98-108); Estimated Creatinine Clearance 40.17 ml/min (50-250); Globulin 2.0 g/dL (2.2-4.2); Glucose 67 mg/dL (70-99); Lipase 54 U/L (13-75); Potassium 3.8 mmol/L (3.3-5.1)
[2025-10-07 22:00] VITALS: BP 194/55; PULSE 77; RESP 18; O2SAT 98
[2025-10-07 22:43] VITALS: BP 178/69; PULSE 72; RESP 16; TEMP 36.7; O2SAT 97
== END 2025-10-07 22:58 | disposition home or self-care (01) ==
PROVIDERS: Emergency Provider Surgery; PCP Nurse Practitioner Family; Visit Provider Surgery
DX: K59.00 Constipation, unspecified (principal); I10 Essential (primary) hypertension; N28.1 Cyst of kidney, acquired; Z96.652 Presence of left artificial knee joint; E16.2 Hypoglycemia, unspecified; K21.9 Gastro-esophageal reflux disease without esophagitis; E78.5 Hyperlipidemia, unspecified
CPT/HCPCS: 74177; 80053; 82962; 83690; 85025; 96360; 99283; Q9967; A4216

== ENCOUNTER 2025-10-23 12:55 | Emergency (ER) | payer MEDICARE, SELFPAY ==
[2025-10-23 12:56] VITALS: BP 159/66; PULSE 83; RESP 17; TEMP 36.8; O2SAT 96; BMI 33.1
--- NOTE | 2025-10-23 13:33 | CT_ITS ---
PROCEDURE: ABDOMEN/PELVIS W IV CONT ONLY 10/23/2025 REASON FOR EXAM: ABDOMINAL PAIN/PRESSURE TECHNIQUE: Procedure Code: [id number] Modality: CT Procedure: ABDOMEN/PELVIS W IV CONT ONLY Coronal and Sagittal reconstruction series were provided. CONTRAST: Isovue 370 VOLUME: 100 mL One or more dose reduction techniques were used (e.g., Automated exposure control, adjustment of the mA and/or kV according to patient size, use of iterative reconstruction technique. RADIATION DOSE SUMMARY: CTDlvol: 17 mGy DLP: 880 mGycm COMPARISON: 10/07/2025 FINDINGS: Inspection of the lung bases demonstrates no dominant mass or consolidation. Normal appearance of the liver. Gallbladder contracted. Normal spleen. Normal adrenal glands. Normal pancreas. Prominent left renal cyst. No solid renal mass or hydronephrosis. The stomach is moderately distended, nonspecific without wall thickening. No dilatation of the large bowel or the small bowel. There has been prior pelvic floor surgery. There is no free-fluid or abscess. There is sigmoid diverticulosis with very subtle infiltration of the fat. This could be chronic or represent evidence of subtle diverticulitis. When compared to the prior study, the appearance is relatively similar. CT/Abdomen/Pelvis W IV Cont ONLY IMPRESSION: Similar appearance to 10/07/2025 of subtle infiltration of the fat around the s igmoid colon which exhibits diverticulosis. However, both scans are more prominent compared to 05/15/2023. Possible early diverticulitis is still possible. There is no abscess Reading Location[facility]
[2025-10-23 13:39] LABS: Hematocrit 37.2 % (37-47); Hemoglobin 12.0 g/dL (12.0-15.0); Immature Granulocytes Count 0.020 X10^3/uL (0.0-0.0); Mean Corp Hgb Conc 32.3 g/dL (32-36); Mean Corpuscular Volume 85.9 fL (81-99); Mean Platelet Vol. 9.4 fl (6.2-12.0); NRBC Flagged by Analyzer 0 % (0-5); Platelet Count 434 K/mm3 (150-450); RBC Distribution Width CV 15.4 % (11.6-14.6); RBC Distribution Width SD 47.9 fl (35.1-43.9); Red Blood Count 4.33 M/mm3 (4.2-5.4); White Blood Count 7.5 K/mm3 (4.4-11.0)
--- NOTE | 2025-10-23 13:43 | ED.VIS.GI ---
HPI HPI - GI History of Present Illness Chief Complaint: Abd Pain Narrative Narrative: 79-year-old female who denies significant past medical history except for known hiatal hernia presents with abdominal pain and pressure that she has had intermittently/on and off for the last month. Yesterday was present, but it intensified today. She denies any fevers or chills, no nausea or vomiting, no problems with bowel movements, no diarrhea. She states that it feels as if her guts are pressing up under her ribs. It is all across the center of her abdomen. She does relate history that once when she was on narcotic medications she had stool blockage and constipation issues. She has not had any prior abdominal surgeries. No exacerbating or alleviating factors. She states her hiatal hernia was diagnosed by Dr. 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 However, at that time it was not large enough for surgery. She is concerned that perhaps her hiatal hernia has gotten bigger, causing her pressure. [facility] Medical History Stress incontinence Vaginal atrophy UTI (urinary tract infection) Encounter for education Osteopenia Cancer Wears glasses Post-menopausal Arthritis Low iron Fatty liver History of hiatal hernia Non-smoker History of pain when walking History of echocardiogram History of stress test GERD (gastroesophageal reflux disease) Vertigo Hyperlipidemia Home Medications Medication Instructions Recorded Last Taken Type fenofibric acid (choline) 135 mg 135 mg PO DAILY 02/28/22 04/03/25 History capsule,delayed release calcium 600 mg (as carbonate)-vit 1 tab PO DAILY 06/05/22 04/04/25 History D3 10 mcg (400 unit) chewable tablet (Calcium 600 with Vitamin D3) meclizine 25 mg tablet 25 mg PO DAILY PRN vertigo 06/05/22 04/04/25 History pantoprazole 40 mg tablet,delayed 40 mg PO DAILY #14 tabs 03/09/23 04/04/25 Rx release Mccoy Revive 2 cap PO DAILY 10/18/24 04/03/25 History ascorbic acid (vitamin C) 500 mg 500 mg PO DAILY 01/20/25 04/04/25 History tablet (C-500) boric acid 600 mg vaginal 600 mg vaginal WE 01/20/25 03/30/25 History suppository d-mannose 500 mg capsule 500 mg PO BID 01/20/25 04/04/25 History vitamin E 268 mg (400 unit) capsule 268 mg PO DAILY 01/20/25 04/04/25 History alprazolam 0.5 mg tablet (Xanax) 0.5 mg PO DAILY anxiety #20 tabs 04/07/25 Unknown Rx sertraline 50 mg tablet (Zoloft) 50 mg PO DAILY #30 tabs 04/07/25 Unknown Rx anastrozole 1 mg tablet 1 mg PO DAILY #90 tabs 04/21/25 Unknown Rx hydralazine 25 mg tablet 25 mg PO TID PRN blood pressure 04/21/25 Unknown History amlodipine 5 mg tablet 5 mg PO DAILY 04/23/25 Unknown History methenamine hippurate 1 gram tablet 1 g PO BID 05/26/25 Unknown History nitrofurantoin 100 mg PO BID #14 caps 07/26/25 Unknown Rx monohydrate/macrocrystals 100 mg capsule (Macrobid) nitrofurantoin 100 mg PO BID #14 caps 07/28/25 Unknown Rx monohydrate/macrocrystals 100 mg capsule (Macrobid) nystatin 100,000 unit/gram topical 1 applic topical BID #30 grams 07/29/25 Unknown Rx ointment Allergy/AdvReac Type Severity Reaction Status Date / Time sulfamethoxazole (From Allergy Mild Other Verified 10/23/25 12:59 Bactrim) trimethoprim (From Bactrim) Allergy Mild Other Verified 10/23/25 12:59 chlorhexidine (From Allergy Rash Verified 10/23/25 12:59 ChloraPrep Clear) potassium clavulanate (From Allergy Rash Verified 10/23/25 12:59 Augmentin) amoxicillin trihydrate (From AdvReac Rash Verified 10/23/25 12:59 Augmentin) Sulfa (Sulfonamide AdvReac Other Verified 10/23/25 12:59 Antibiotics) Family History Father Heart disease CVA (cerebral vascular accident) Surgical History Status post partial mastectomy of left breast History of breast lump/mass excision History of surgery on wrist History of surgery on wrist History of esophagogastroduodenoscopy (EGD) Hx of colonoscopy H/O tubal ligation Social History Smoking Status: Never smoker alcohol intake: current details: social substance use type: does not use caffeine: Yes frequency: 1-2 times per week seatbelt use: always do you feel safe at home: Yes additional social history: (Matias) ROS ROS ED ROS Narrative Review of systems positive for abdominal pressure, and pressure underneath her rib cage. No fevers or chills, no nausea or vomiting, no problems with bowel movements, no exacerbating or alleviating factors. No chest pain. EXAM Physical Exam Narrative Exam Narrative: Afebrile. Vital signs noted. Nontoxic-appearing. Cardiovascular examination reveals regular rate and rhythm. Lungs are clear to auscultation bilaterally. The abdomen is soft with minimal tenderness to palpation more towards the epigastric and bilateral upper quadrant areas. Negative Goodman sign. No guarding or rebound. Positive bowel sounds. Neurological examination is nonfocal, nonlateralizing. Const Vital Signs: 10/23/25 12:56 Temperature 98.2 F Temperature Source Oral Pulse Rate 83 Respiratory Rate 17 Blood Pressure 159/66 H Blood Pressure Mean 97 Pulse Ox 96 Oxygen Delivery Method Room Air MDM MDM MDM Narrative Medical decision making narrative: The differential diagnosis includes but not limited to hiatal hernia pain versus pancreatitis versus bowel obstruction versus nonspecific abdominal pain. She may also have transverse colitis versus diverticulitis. Additionally she may have stool impaction as well. Comprehensive workup was pursued. CBC obtained and she has normal white count of 7.5 with hemoglobin normal at 12.0, platelet count 434. I reviewed her CMP and she has normal sodium and potassium, BUN of 20 with creatinine 1.12. Glucose elevated 152 but normal anion gap of 13. LFTs are grossly unremarkable. Lipase slightly elevated at 104. When compared to prior labs has been high as 84 and normal previously. I reviewed the radiology report of the CT of the abdomen pelvis and there is no acute process. They do comment on sigmoid colon infiltration of fat, but patient is not having lower abdominal pain, and it was seen on a previous CT in May. I do not feel that she is having a diverticulitis. I do not feel antibiotics are indicated. She was administered morphine and Zofran. While her exam remains unremarkable and her abdomen remains soft, she states that she is uncomfortable going home because her pain seems to be worsening and she feels a lot of pressure in the abdomen. I will discuss the patient with the hospitalist for possible observation for her epigastric abdominal pain and slightly elevated lipase. In discussion with Dr. Castro, it was not felt that the patient meets any criteria for observation. I rediscussed this with the patient. She was told to start a clear liquid diet and advance as tolerated. She was given a GI cocktail prior to discharge. Return instructions to the emergency department were reviewed. Disposition is discharged home in stable condition. History & Record Review Discussion w/independent historian: Patient Additional record(s) reviewed:: Prior labs (Lipase in 80s) Lab Data Attestation: I reviewed the patient's lab results. Labs: Laboratory Results - last 24 hr 10/23/25 13:10 WBC 7.5 RBC 4.33 Hgb 12.0 Hct 37.2 MCV 85.9 MCH 27.7 MCHC 32.3 RDW Std Deviation 47.9 H RDW Coeff of Kimi 15.4 H Plt Count 434 MPV 9.4 Immature Gran % (Auto) 0.300 Neut % (Auto) 65.8 Lymph % (Auto) 22.8 [place] % (Auto) 8.8 Eos % (Auto) 1.6 Baso % (Auto) 0.7 Absolute Neuts (auto) 4.9 Absolute Lymphs (auto) 1.71 Nucleated RBC % 0 Sodium 139 Potassium 3.7 Chloride 103 Carbon Dioxide 24.1 Anion Gap 13 BUN 20 H Creatinine 1.12 Estim Creat Clear Calc 39.55 L Est GFR (MDRD) Non-Af 50 L BUN/Creatinine Ratio 18.2 Glucose 152 H Calcium 9.5 Total Bilirubin 0.29 AST 21 ALT 14 Alkaline Phosphatase 43 Total Protein 7.1 Albumin 4.0 Globulin 3.1 Albumin/Globulin Ratio 1.3 Lipase 104 H Radiography Diagnostic Testing: Clinical Impression(s) from Imaging Studies Abdomen/Pelvis CT 10/23/25 13:33 IMPRESSION: Similar appearance to 10/07/2025 of subtle infiltration of the fat around the sigmoid colon which exhibits diverticulosis. However, both scans are more prominent compared to 05/15/2023. Possible early diverticulitis is still possible. There is no abscess Reading [facility] Discharge Plan Triage Chief Complaint: Abd Pain ED Provider: Reodica,Zeeshan Dx/Rx/DC Orders Clinical Impression: Epigastric pain, Elevated lipase Instructions: Lipase, ED Epigastric Pain Uncertain Cause Prescriptions: No Action meclizine 25 mg tablet 25 mg PO DAILY PRN (Reason: vertigo) Calcium 600 with Vitamin D3 600 mg-10 mcg (400 unit) tablet,chewable 1 tab PO DAILY Mccoy Revive 2 cap PO DAILY hydralazine 25 mg tablet 25 mg PO TID PRN (Reason: blood pressure) anastrozole 1 mg tablet 1 mg PO DAILY Qty: 90 3RF methenamine hippurate 1 gram tablet 1 g PO BID nitrofurantoin monohyd/m-cryst [Macrobid] 100 mg capsule 100 mg PO BID Qty: 14 0RF Rx Instructions: must administer with a meal/food hold the methenamine while on antibiotics nitrofurantoin monohyd/m-cryst [Macrobid] 100 mg capsule 100 mg PO BID Qty: 14 0RF Rx Instructions: must administer with a meal/food fenofibric acid (choline) 135 mg capsule,delayed release(DR/EC) 135 mg PO DAILY Patient Comments: Take 1 Capsule by mouth daily pantoprazole 40 mg tablet,delayed release (DR/EC) 40 mg PO DAILY Qty: 14 0RF sertraline [Zoloft] 50 mg tablet 50 mg PO DAILY Qty: 30 0RF alprazolam [Xanax] 0.5 mg tablet 0.5 mg PO DAILY Qty: 20 0RF amlodipine 5 mg tablet 5 mg PO DAILY d-mannose 500 mg capsule 500 mg PO BID boric acid 600 mg suppository 600 mg vaginal WE vitamin E 268 mg (400 unit) capsule 268 mg PO DAILY ascorbic acid (vitamin C) [C-500] 500 mg tablet 500 mg PO DAILY nystatin 100,000 unit/gram ointment 1 applic topical BID Qty: 30 3RF Primary Care Provider: Kiana Chaudhary Referrals: Kiana Chaudhary NP-C [Primary Care Provider, Internal Medicine] - 1 Day Activity Restrictions/Additional Instructions: Start a clear liquid diet, advance as tolerated. Return to the emergency department with fever, increased pain, any new or worsening symptoms. Print Language: French Disposition Disposition: Home, Self Care
--- OUTSIDE RECORDS SUMMARY | 2025-10-23 13:52 | XMS RPT_ITS | CCD ---
Author Organization [facility] CliniSyvt Care Team Providers Care Non Linear Editor Name Role Phone JyothimaliBelem cagle E Unavailable [...] A Unavailable Afshin Sanchez LPN Unavailable Unavailable Angel Luis Marroquin LPNcy Unavailable Unavailable Agnieszka Rae RN Unavailable Unavailable Slarb PHYSICIAN ASSISTANT, Citlali Unavailable Unavailable Unavailable Unavailable Dionna Carcamo Unavailable Samantha Goodman MA Unavailable Unavailable Ciesa TRANSIT VEHICLE INSPECTOR, TRANSIT VEHICLE INSPECTOR-C Belem Primary Care Provider Kema TRANSIT VEHICLE INSPECTOR, TRANSIT VEHICLE INSPECTOR-C Belem Referring Provider Jluis TRANSIT VEHICLE INSPECTOR, TRANSIT VEHICLE INSPECTOR-C Rayna Attending Provider Kema Belem Unavailable Fast DO, Idalia A Unavailable Cimalia Belem Unavailable Ciesa TRANSIT VEHICLE INSPECTOR, TRANSIT VEHICLE INSPECTOR-C [facility] Primary Care Provider Ciesa TRANSIT VEHICLE INSPECTOR, TRANSIT VEHICLE INSPECTOR-C [facility] Referring Provider [phone] Polk TRANSIT VEHICLE INSPECTOR, TRANSIT VEHICLE INSPECTOR-C Rayna Attending Provider [phone] Rayshawn Chaudhary CNP Unavailable Rayshawn Chaudhary CNP Unavailable [phone] Belem Hagen Unavailable Ciesa TRANSIT VEHICLE INSPECTOR, TRANSIT VEHICLE INSPECTOR-C [facility] Primary Care Provider Ciesa TRANSIT VEHICLE INSPECTOR, TRANSIT VEHICLE INSPECTOR-C Belem Referring Provider [phone] Jluis TRANSIT VEHICLE INSPECTOR, TRANSIT VEHICLE INSPECTOR-C Rayna Attending Provider [phone] Brinda BOX, Kayela Unavailable Unavailable Dione DO, Omayra Unavailable [phone] ALCIDES Chaudhary-C Rayshawn Primary Care Provider [phone] ALCIDES Chaudhary-C Rayshawn Referring Provider Polk TRANSIT VEHICLE INSPECTOR, TRANSIT VEHICLE INSPECTOR-C Rayna Attending Provider [phone] Rayshawn Chaudhary E Unavailable Bilderback Jamarcus Unavailable Unavailabl Jamarcus Fan Attending Unavailgalindo Chaudhary, Ms. Bruno E Primary Care Unavailabl e Rayshawn Chaudhary CNP Attending Unavailable Belem Hagen Referring Unavailable Rayshawn Chaudhary CNP Consulting Unavailable Dr. Luis Carlos Zuluaga Attending Provider Maurice GIBBS Rayshawn Unavailable Maurice GIBBS, Rayshawn Unavailable Boston DELEON MD, Katherine Carey Unavailable Dionna Carcamo Unavailable Fast DO, Idalia A Unavailable Slarb PHYSICIAN ASSISTANT, Citlali Unavailable Unavailable Daniel DUMONTN, Afshin Unavailable Unavailable Brinda BOX, Kayela Unavailable Unavailable Cara DUMONTN, Marry Unavailable Unavailable Butch RN, Agnieszka Soria Unavailable Unavailable Unavailable Unavailable Dr. Dylan Zhou Unavailable Dione DO, Omayra Unavailable [place] PHYSICIAN ASSISTANT, Dao Unavailable Unavailable Tip SENIOR BUSINESS ANALYST, Fiorella Unavailable Unavailable Maurice, TRANSIT VEHICLE INSPECTOR-C Rayshawn Primary Care Provider Maurice, TRANSIT VEHICLE INSPECTOR-C Rayshawn Referring Provider Jluis TRANSIT VEHICLE INSPECTOR, TRANSIT VEHICLE INSPECTOR-C Rayna Attending Provider Ray PHYSICIAN ASSISTANT, MAXIMILIAN Unavailable Unavailable Maurice, TRANSIT VEHICLE INSPECTOR-C Rayshawn Primary Care Provider Maurice, TRANSIT VEHICLE INSPECTOR-C Rayshawn Referring Provider Jluis TRANSIT VEHICLE INSPECTOR, TRANSIT VEHICLE INSPECTOR-C Rayna Attending Provider Maurice TRANSIT VEHICLE INSPECTOR-C, Rayshawn Primary Care Provider Maurice TRANSIT VEHICLE INSPECTOR-C, Rayshawn Referring Provider Jluis TRANSIT VEHICLE INSPECTOR-C, Rayna Attending Provider Jluis TRANSIT VEHICLE INSPECTOR-C, Rayna Referring Provider Casi GARZA, Dr. Otero Attending Provider [phone] Casi GARZA, Dr. Otero Referring Provider Casi GARZA, Dr. Otero Other Provider Zan GARZA, Dr. Aldridge Attending Provider Demetra Lorenzo Attending Provider Unavailable Dr. Ximena Stanley MD Attending Provider Dr. Mehul Borja DO Attending Provider Dr. Ximena Stanley MD Referring Provider Dr. Margoth Villalpando DO Emergency Provider [phone] Wesly Leiva DO Emergency Provider [phone] Dr. Margoth Villalpando DO Attending Provider Dr. Ximena Stanley MD Referring Provider Dr. Manoj Mehta MD Emergency Provider Dr. Wesly Leiva DO Attending Provider Tyson GARZA, Dr. Aranda Attending Provider Lizeth GARZA, Dr. Bueno Referring Provider Roel TRANSIT VEHICLE INSPECTOR-C, Frances Attending Provider [facility], Dr. Dunn Attending Provider [facility] , Dr. Dunn Emergency Provider Maurice TRANSIT VEHICLE INSPECTOR-C, Rayshawn Attending Provider Dr. Mehul Borja DO Referring Provider Maurice TRANSIT VEHICLE INSPECTOR-C, Rayshawn Primary Care Provider Casi GARZA, Dr. Otero Attending Provider Maurice TRANSIT VEHICLE INSPECTOR-C, Rayshawn Referring Provider Jluis TRANSIT VEHICLE INSPECTOR-C, Rayna Attending Provider Maurice TRANSIT VEHICLE INSPECTOR-C, Rayshawn Primary Care Provider Maurice TRANSIT VEHICLE INSPECTOR-C, Rayshawn Referring Provider Dr. Branden Lance MD Attending Provider Dr. Branden Lance MD Referring Provider [phone] Zan GARZA, Dr. Aldridge Attending Provider Sparkle GARZA, Dr. Alvares Attending Provider Maurice TRANSIT VEHICLE INSPECTOR-C, Rayshawn Primary Care Provider Maurice TRANSIT VEHICLE INSPECTOR-C, Rayshawn Referring Provider Sparkle GARZA, Dr. Alvares Attending Provider Dr. Ximena Stanley MD Attending Provider Dr. Ximena Stanley MD Referring Provider Maurice TRANSIT VEHICLE INSPECTOR-C, Rayshawn Primary Care Provider Dr. Mehul Borja DO Attending Provider Maurice TRANSIT VEHICLE INSPECTOR-C, Rayshawn Referring Provider MAURICE [employer]OE PARTS MOLDER-ELECTROMECHANICAL EQUIPMENT TESTER, RAYSHAWN Primary Care Physician Maurice TRANSIT VEHICLE INSPECTOR-C, Rayshawn Primary Care Physician Maurice TRANSIT VEHICLE INSPECTOR-C, Rayshawn Attending Physician Maurice TRANSIT VEHICLE INSPECTOR-C, Rayshawn Referring Provider Zan GARZA, Dr. Aldridge Attending Physician Huong MASON, Dr. Carver Attending Physician Sparkle GARZA, Dr. Alvares Attending Physician Jluis TRANSIT VEHICLE INSPECTOR-C, Rayna Attending Physician Roel TRANSIT VEHICLE INSPECTOR-C, Frances Attending Physician Lizeth GARZA, Dr. Bueno Attending Physician ORESTES GARZA, DR VERONICA Cagle Attending Unavailab le MAURICE [employer] MOLDER-ELECTROMECHANICAL EQUIPMENT TESTER, RAYSHAWN Primary Care Unavail able ORESTES GARZA, DR VERONICA Cagle Attending Unavailab le MAURICE [employer]S MOLDER-ELECTROMECHANICAL EQUIPMENT TESTER, RAYSHAWN Primary Care Unavail tyesha CARLISLE MD, DR VERONICA Cagle Admitting Unavailab sp CARLISLE MD, DR VERONICA Cagle Attending Unavailab le MAURICE [employer]S MOLDER-ELECTROMECHANICAL EQUIPMENT TESTER, RAYSHAWN Primary Care Unavail able ELBA ERNANDEZ-ELECTROMECHANICAL EQUIPMENT TESTER, BRITTANY Soria Consulting Michael Guzmanam, Rayshawn Primary Care Unavailable Demetra Lorenzo Attending Unavailable MauriceRayshawn Attending Unavailable Maurice, Rayshawn Referring Unavailable Maurice, Rayshawn Primary Care Unavailable Maurice, Rayshawn Primary Care Unavailable Ximena Stanley Attending Unavailable Branden Lance Referring Unavailable Mehul Borja Attending Unavailable Maurice, Rayshawn Primary Care Unavailable Mehul Borja Referring Unavailable Maurice, Rayshawn Primary Care Unavailable Margoth Villalpando Attending Unavailable Maurice, Rayshawn Primary Care Unavailable Akiko Henry Referring Unavailable Akiko Henry Attending Unavailable Maurice, Rayshawn Primary Care Unavailable Ximena Stanley Attending Unavailable Ximena Stanley Referring Unavailable Maurice, Rayshawn Primary Care Unavailable Branden Lance Referring Unavailable Branden Lance Attending Unavailable Maurice, Rayshawn Primary Care Unavailable Mehul Borja Referring Unavailable Mehul Borja Attending Unavailable Maurice, Rayshawn Primary Care Unavailable Huong, Mehul Referring Unavailable Huong, Mehul Attending Unavailable Maurice, Rayshawn Primary Care Unavailable Huong, Mehul Referring Unavailable Huong, Mehul Attending Unavailable Maurice, Rayshawn Primary Care Unavailable Huong, Mehul Referring Unavailable Huong, Mehul Attending Unavailable Shaun Noriega Attending Unavailabl e Maurice, Rayshawn Primary Care Unavailable Maurice, Rayshawn Primary Care Unavailable Leann, Shaun Attending Unavailabl e Maurice, Rayshawn Attending Unavailable Maurice, Rayshawn Referring Unavailable Maurice, Rayshawn Primary Care Unavailable Maurice, Rayshawn Attending Unavailable Maurice, Rayshawn Referring Unavailable Maurice, Rayshawn Primary Care Unavailable Maurice, Rayshawn Primary Care Unavailable Polk TRANSIT VEHICLE INSPECTOR, Rayna Referring Unavailable Jluis TRANSIT VEHICLE INSPECTOR, Rayna Attending Unavailable Maurice, Rayshawn Primary Care Unavailable Maurice, Rayshawn Referring Unavailable Polk TRANSIT VEHICLE INSPECTOR, Rayna Attending Unavailable Maurice, Rayshawn Primary Care Unavailable Maurice, Rayshawn Referring Unavailable Branden Lance Attending Unavailable Maurice, Rayshawn Primary Care Unavailable Maurice, Rayshawn Referring Unavailable Jluis TRANSIT VEHICLE INSPECTOR, Rayna Attending Unavailable Maurice, Rayshawn Primary Care Unavailable Maurice, Rayshawn Referring Unavailable CalabrBranden emanuel Attending Unavailable Maurice, Rayshawn Primary Care Unavailable Maurice, Rayshawn Referring Unavailable Maurice, Rayshawn Attending Unavailable Maurice, Rayshawn Primary Care Unavailable CalabrBranden emanuel Referring Unavailable CalabrBranden emanuel Attending Unavailable Maurice, Rayshawn Referring Unavailable Maurice, Rayshawn Primary Care Unavailable Mehul Borja Attending Unavailable Mauriec, Rayhsawn Primary Care Unavailable Manoj Mehta Attending Unavailable Maurice, Rayshawn Referring Unavailable Maurice, Rayshawn Primary Care Unavailable Roel TRANSIT VEHICLE INSPECTOR, Frances Attending Unavailable Maurice, Rayshawn Primary Care Unavailable Maurice, Rayshawn Referring Unavailable CalabrettaBranden Attending Unavailable Maurice, Rayshawn Primary Care Unavailable Maurice, Rayshawn Referring Unavailable Polk TRANSIT VEHICLE INSPECTOR, Rayna Attending Unavailable Maurice, Rayshawn Referring Unavailable HuongJamesone Attending Unavailable Maurice, Rayshawn Primary Care Unavailable Maurice, Rayshawn Referring Unavailable Jluis TRANSIT VEHICLE INSPECTOR, Rayna Attending Unavailable Maurice, Rayshawn Primary Care Unavailable Maurice, Rayshawn Referring Unavailable Roel TRANSIT VEHICLE INSPECTOR, Frances Attending Unavailable Maurice, Rayshawn Primary Care Unavailable Maurice, Rayshawn Referring Unavailable Wyneski, Dia Attending Unavailable Maurice, Rayshawn Primary Care Unavailable Maurice, Rayshawn Primary Care Unavailable Maurice, Rayshawn Referring Unavailable Jameson Borjae Attending Unavailable Maurice, Rayshawn Primary Care Unavailable Calabretta, Branden Consulting Unavailable Calabretta, Branden Referring Unavailable Calabretta, Branden Attending Unavailable Maurice, Rayshawn Primary Care Unavailable Calabretta, Branden Attending Unavailable Calabretta, Branden Consulting Unavailable Calabretta, Branden Referring Unavailable Maurice, Rayshawn Primary Care Unavailable Huong, Mehul Attending Unavailable Zan, Abercrombie Attending Unavailable Maurice, Rayshawn Primary Care Unavailable Maurice, Rayshawn Primary Care Unavailable Huong, Mehul Referring Unavailable Huong, Mehul Attending Unavailable Maurice, Rayshawn Primary Care Unavailable Zan, Abercrombie Attending Unavailable Calabretta, Branden Referring Unavailable Maurice, Rayshawn Primary Care Unavailable Wesly Leiva Attending Unavailable Maurice, Rayshawn Primary Care Unavailable Jluis TRANSIT VEHICLE INSPECTOR, Rayna Referring Unavailable Jluis TRANSIT VEHICLE INSPECTOR, Rayna Attending Unavailable Allergies Allergy Classification Reported Allergen(s) Allergy Type [...] Amoxicillin; Translations: [amoxicillin trihydrate] Drug Allergy 02-29-20 [facility] Comment on above: PT STATES IT WAS A M ILD ITCHINESS IN THE S NO BREATHING PROBLEMS (20 sources) Sulfamethoxazole Drug Allergy 02-29-20 Other [facility] (20 sources) Trimethoprim Drug Allergy 02-29-20 Other [facility] (20 sources) potassium clavulanate; Translations: [potassium clavulanate] Allergy to substance 02-29-20 [facility] (1 source) Amoxicillin / Clavulanate Drug Allergy Unknown [facility] (1 source) Sulfamethoxazole / Trimethoprim Drug Allergy Unknown [facility] (16 sources) Chlorhexidine Drug Allergy 05-21-20 [facility] (4 sources) Isopropyl Alcohol Drug Allergy 05-21-20 [facility] (3 sources) Sulfonamide; Translations: [sulfa drugs] Drug allergy [facility] (1 source) Chlorhexidine Drug Allergy 10-07-20 [facility] (1 source) Isopropyl Alcohol Drug Allergy 02-16-20 [facility] (1 source) Sulfamethoxazole Drug Allergy 10-07-20 [facility] (1 source) Sulfonamides (Antibiotic) Drug allergy (disorder) 10-07-20 [facility] (1 source) Trimethoprim Drug Allergy 10-07-20 [facility] Medications Current Medications Medication Drug Class(es) [...] Start: 01-20-2025 take 1 tablet by yosi th once daily Start: 12-17-2017 End: 07-13-2018 Ascorbic [...] daily Start: 01-20-2025 take 1 capsule by [facility] twice daily D-Mannose 500 mg capsule Active [...] Quantity: 30 {Tablet} Refills: 1 Ordered: 27-May-2022 Rayshawn Chaudhary CNP Start : 27-May-2022 Active Start: 03-11-2022 take 1 tablet by yosi th every eight hours as needed Meclizine HCl 25 MG Oral Tablet 1 (one) Tablet q 8 hr prn vertigo for 0 days Quantity: 30 {Tablet} Refills: 1 Ordered: 11-Mar-2022 Jyothimalimargarita Belem JyothiBelem doherty Start : 11-Mar-2022 Active [...] Refills: 0 Ordered: 06-Dec-2018 Belem Hagen CNP, CNP Belem Durant Start : 06-Dec-2018 End : 11-Dec-2018 Inactive Comments: with food Start: 07-18-2017 End: 07-25-2017 take 1 capsule by mouth twice daily Macrobid 100 MG Oral Capsule 1 (one) Capsule bid for 7 days Quantity: 14 {Capsule} Refills: 0 Ordered: 18-Jul-2017 Hieu GIBBS EkaterinaBhargav Hagen CNP Belem Durant Start : 18-Jul-2017 End : 25-Jul-2017 Inactive [...] 0 Refills: 0 Ordered: 13-Mar-2023 Deshawn Medrano Start: 09-Mar-2023 Generic Substitution Allowed Start: 03-09-2023 [...] 0 Refill(s), 10/05/25 10:18:00 AM EST, Pharmacy: [facility], Status post total left knee replacement, [...] therapy., # 12 tab(s), 0 Refill(s), Pharmacy: [facility], 155, cm, 09/27/25 12:41:00 EDT, Height, [...] NEEDED as needed for Pain 10 3 0 March 09, 2023 January 20, 2025 3:34pm [...] Comment on above: called to drug [facility] 11/13/22. clarithromycin 500 mg oral tablet [...] Other peripheral vertigo, unspecified ear oxyquinoline sulfate 0.92363 mg/mg / sodium dodecyl sulfate 0.0001 mg/mg [...] 1 {Gram} Refills: 6 Ordered: 07-Nov-2022 Dione MASON Omayra Start : 07-Nov-2022 Active Start: 10-09-2021 [...] (20 sources) Corticosteroid Start: 05-31-2015 End: 04-30-2016 Rjjwzngd-Iylo-Zgl3-C -Didier-Bosw (14 sources) Start: 04-23-2016 End: 12-11-2017 take 1 tablet by mouth once daily Ekruljha-Asjd-Qst1- C-Didier-Bosw Discontinued 1 TABLET PO DAILY April 23, 2016 12:19pm December 11, 2017 10:31am Start: 04-23-2016 End: 12-11-2017 take 1 tablet by mouth once daily Srjlnivf-Njlg-Lwl1-C-Didier-Bosw Discontin ued 1 TABLET PO DAILY April 22, 2016 11:00pm December 11, 2017 9:31am Start: 04-23-2016 End: 12-11-2017 take 1 tablet by mouth once daily Fpsndgwa-Kwpu-Wfh5-C-Didier-Bosw Discontin ued 1 TABLET PO DAILY April 23, 2016 12:00am December 11, 2017 10:31am Dclbdssp-Lfpj-Ran7-C-Didier-Navjot sw 1 EACH tablet (12 sources) Start: 04-23-2016 End: 12-11-2017 take 1 tablet by mouth once daily Gcdyczkr-Izic-Euo5-C-Didier-Bosw 1 EACH tablet Discontinued 1 {tbl} PO [...] day Quantity: 0 Refills: 0 Ordered: 13-Mar-2023 MarcelaDeshawn white Generic Substitution Allowed methenamine hippurate 1000 m [...] Quantity: 30 {Gram} Refills: 3 Ordered: 11-Dec-2021 Jyothimalimargarita Belem Jyothibessy Belem Start : 11-Dec-2021 Active Start: 01-30-2021 Triamcinolone Acetonide 0.5 % External Cream 1 (one) Application apply pea sized amount as directed for 0 days Quantity: 30 {Gram} Refills: 3 Ordered: 30-Jan-2021 Afshin Sanchez LPN Start : 30-Jan-2021 Active Start: 07-20-2020 End: 01-27-2024 Triamcinolone Acetonide 0.5 % cream Discontinued 1 NMA TOPICAL TWICE A DAY 15 7 2 July 20, 2020 12:00am January 27, 2024 11:36am peasized amount as instructed Problems Active Problems Problem Classification Problem Date Documented Date Episodic/Chronic Abdominal pain (20 sources) Upper abdominal pain; Translations: [Upper abdominal pain, unspecified] Onset: 023 03-09-2023 Episodic Allergic reactions (20 sources) Contact dermatitis due to poison debi; Translations: [Allergy to sulfonamides] Onset: 023 Resolve d: 06-21-2015 Episodic Comment on above: Serum reaction to Ba ctrim 04/19/16skin rash, fever and chills, chest pain, difficulty passing urine, weak and tired Anxiety disorders (20 sources) Acute stress disorder; Translations: [Acute stress reaction] 04-07-2025 Chronic Cancer of breast (20 sources) Malignant tumor of breast ; Translations: [Malignant neoplasm of unspecified site of left female breast] Onset: 025 02-11-2025 Chronic Comment on above: Invasive ductal [...] Vertigo; Translations: [Benign paroxysmal positional vertigo] Onset: 023 06-21-2020 Episodic Comment on above: ER visit on 06-13-20 with vertigo, got Iv fluid, stable thereafter ER visit on 06-13-20 with vertigo, got Iv fluid, stable thereafter, again vertigo Diabetes mellitus without complication (20 sources) Impaired fasting glucose; Translations: [Impaired fasting glycaemia] Resolve d: 023 12-02-2018 Episodic Comment on above: discussed level, sug gesting watch sugars and carbs improved Diseases of white blood cells (20 sources) Basophilia; 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 Disorders of lipid metabolism (20 sources) Hyperlipidemia; Translations: [Hypertriglyceridemia] Onset: 025 12-02-2018 Chronic Comment on above: needs refill, sent t [facility] Diverticulosis and diverticulitis (20 sources) Diverticulitis of gastrointestinal tract; Translations: [Diverticulitis] Resolve d: 015 06-21-2015 Chronic Esophageal disorders (20 sources) Gastroesophageal reflux disease; Translations: [Gastro-esophageal reflux disease without esophagitis] Onset: 025 06-13-2020 Chronic Comment on above: more pain under righ t scapula and will call PCP Essential hypertension (20 sources) Hypertensive disorder; Translations: [Essential (primary) hypertension] Onset: 04-14-2021 Chronic Fluid and electrolyte disorders (20 [...] q fri and pessary, now UTI symptoms goneSemali Bazzi and Dr. 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] Onset: Episodic Other aftercare (1 source) [facility] (current) use of aromatase inhibitors; Translations: [[facility] (current) use of aromatase inhibitors] Onset: Episodic Other aftercare (1 source) 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; Translations: [[facility] (current) use of antibiotics] Onset: Episodic Other aftercare (1 source) [facility] (current) use of anticoagulants; Translations: [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 Uriarte , Rayna Alarcontings has pessary, Takes 1/2 grm estrogen cream [...] BREAST LUMPECTO MY 01/2025 Residual codes; unclassified (1 source) Acquired absence of left breast and nipple; Translations: [Acquired absence of left breast and nipple] Onset: Episodic Residual codes; unclassified (2 sources) Estrogen receptor positive status [ER+]; Translations: [Estrogen receptor positive status [ER+]] Onset: Episodic Skin and subcutaneous tissue infections [...] sources) Conditions associated with dizziness or vertigo Deficiency and other anemia (2 sources) Iron deficiency anemia, unspecified; Translations: [Iron deficiency anemia, unspecified] Onset: 5 Episodic Diabetes mellitus without complication (4 sources) Prediabetes; [...] Test Name Value Interpretation Reference Range Facility Abdomen/Pelvis W IV Cont ONL Yon 10-07-2025 Abdomen/Pelvis W IV Cont ONLY Normal [facility] Bedside Glucoseon 10-07-2025 FINGERSTICK GLU 103 mg/dL Normal 74-106 [facility] Comment on above: Result Comment: EMERALD PAZ OF PATIENT CARE PER NURSING PROTOCOL Performed By: #### L 501.080 ####[facility] [id number] [place], [address] CBC W/Diff, Automatedon 11-0 -2024 Absolute Lymph 2.14 X10 3/uL Normal 0.83-4.51 [facility] Comment on above: Performed By: #### L 100.0100 ####[facility] [id number] [place], [address] Absolute Neut 6.0 X10 3/uL Normal 2.0-7.7 [facility] Comment on above: Performed By: #### L 100.0100 ####[facility] [id number] [place], [address] Basophils/100 WBC (Bld) 0.5 % Normal 0-1 [facility] Comment on above: Performed By: #### L 100.0100 ####[facility] [id number] [place], [address] Eosinophils/100 WBC (Bld) 1.2 % Normal 0-5 [facility] Comment on above: Performed By: #### L 100.0100 ####[facility] [id number] [place], [address] Erythrocyte distribution width (RBC) [Ratio] 16.3 % High 11.6-14.6 [facility] Comment on above: Performed By: #### L 100.0100 ####[facility] [id number] [place], [address] Hematocrit (Bld) [Volume fraction] 36.8 % Low 37-47 [facility] Comment on above: Performed By: #### L 100.0100 ####[facility] [id number] [place], [address] Hemoglobin (Bld) [Mass/Vol] 12.0 g/dL Normal 12.0-15.0 [facility] Comment on above: Performed By: #### L 100.0100 ####[facility] [address] [place], [address] IG% 0.200 Normal 0.0-0.9 [facility] Comment on above: Result Comment: IG% - Immature Granulocytes (promyelocytes, myelocytes andmetamyelocytes) > 1% indicates that a LEFT SHIFT is Present. Performed By: #### L 100.0100 ####[facility] [address] [place], [address] Lymphocytes/100 WBC (Bld) 23.3 % Normal 19-41 [facility] Comment on above: Performed By: #### L 100.0100 ####[facility] [address] [place], [address] MCH (RBC) [Entitic mass] 28.1 pg Normal 27.0-32.0 [facility] Comment on above: Performed By: #### L 100.0100 ####[facility] [address] [place], [address] MCHC (RBC) [Mass/Vol] 32.6 g/dL Normal 32-36 [facility] Comment on above: Performed By: #### L 100.0100 ####[facility] [address] [place], [address] MCV (RBC) [Entitic vol] 86.2 fL Normal 81-99 [facility] Comment on above: Performed By: #### L 100.0100 ####[facility] [address] [place], [address] Monocytes/100 WBC (Bld) 9.8 % Normal 0-10 [facility] Comment on above: Performed By: #### L 100.0100 ####[facility] [address] [place], [address] Neutrophils/100 WBC (Bld) 65.0 % Normal 47-70 [facility] Comment on above: Performed By: #### L 100.0100 ####[facility] [address] [place], [address] Nucleated RBC (Bld) [#/Vol] 0 10*3/uL Normal 0-5 [facility] Comment on above: Performed By: #### L 100.0100 ####[facility] [address] [place], [address] Platelet mean volume (Bld) [Entitic vol] 9.2 fL Normal 6.2-12.0 [facility] Comment on above: Performed By: #### L 100.0100 ####[facility] [address] [place], [address] Platelets (Bld) [#/Vol] 479 10*3/uL High 150-450 [facility] Comment on above: Performed By: #### L 100.0100 ####[facility] [address] [place], [address] RBC (Bld) [#/Vol] 4.27 10*6/uL Normal 4.2-5.4 [facility] Comment on above: Performed By: #### L 100.0100 ####[facility] [address] [place], [address] RDW SD 51.5 fl High 35.1-43.9 [facility] Comment on above: Performed By: #### L 100.0100 ####[facility] [address] [place], [address] WBC (Bld) [#/Vol] 9.2 10*3/uL Normal 4.4-11.0 [facility] Comment on above: Performed By: #### L 100.0100 ####[facility] [address] [place], [address] Comprehensive Metabolic Prof ilon 10-07-2025 Albumin [Mass/Vol] 3.6 g/dL Normal 3.4-4.8 [facility] Comment on above: Performed By: #### L 500.4050, L501.2450 ####[facility] [address] [place], [address] Albumin/Globulin [Mass ratio] 1.8 {ratio} Normal 0.9-2.4 [facility] Comment on above: Performed By: #### L 500.4050, L501.2450 ####[facility] [address] [place], [address] ALK PHOS 36 U/L Normal 35-104 [facility] Comment on above: Performed By: #### L 500.4050, L501.2450 ####[facility] [address] [place], [address] ALT [Catalytic activity/Vol] 13 U/L Normal <=34 [facility] Comment on above: Performed By: #### L 500.4050, L501.2450 ####[facility] [address] [place], [address] AST [Catalytic activity/Vol] 17 U/L Normal <=31 [facility] Comment on above: Performed By: #### L 500.4050, L501.2450 ####[facility] [address] [place], [address] Bilirubin [Mass/Vol] 0.41 mg/dL Normal 0.00-1.30 [facility] Comment on above: Performed By: #### L 500.4050, L501.2450 ####[facility] [address] [place], [address] BUN/CRE 13.9 RATIO Normal 10-20 [facility] Comment on above: Performed By: #### L 500.4050, L501.2450 ####[facility] [address] [place], [address] Calcium [Mass/Vol] 9.0 mg/dL Normal 7.6-11.0 [facility] Comment on above: Performed By: #### L 500.4050, L501.2450 ####[facility] [address] [place], [address] Chloride [Moles/Vol] 100 mmol/L Normal 98-108 [facility] Comment on above: Performed By: #### L 500.4050, L501.2450 ####[facility] [address] [place], [address] CO2 [Moles/Vol] 25.1 mmol/L Normal 21.0-32.0 [facility] Comment on above: Performed By: #### L 500.4050, L501.2450 ####[facility] [address] [place], [address] Creatinine [Mass/Vol] 1.09 mg/dL Normal 0.70-1.20 [facility] Comment on above: Performed By: #### L 500.4050, L501.2450 ####[facility] [address] [place], [address] ECRCL 40.17 ml/min Low 50-250 [facility] Comment on above: Performed By: #### L 500.4050, L501.2450 ####[facility] [address] [place], [address] GAP 12 Normal 5-15 [facility] Comment on above: Performed By: #### L 500.4050, L501.2450 ####[facility] [address] [place], [address] GFR/1.73 sq M.predicted among non-blacks MDRD (S/P/Bld) [Vol rate/Area] 52 mL/min/{1.73_m2} Low >60 [facility] Comment on above: Result Comment: mL/m in/1.73m2 CKD-EPI Creatinine Equation (2020) Performed By: #### L 500.4050, L501.2450 ####[facility] [address] [place], [address] Globulin (S) [Mass/Vol] 2.0 g/dL Low 2.2-4.2 [facility] Comment on above: Performed By: #### L 500.4050, L501.2450 ####[facility] [address] [place], [address] Glucose [Mass/Vol] 67 mg/dL Low 70-99 [facility] Comment on above: Performed By: #### L 500.4050, L501.2450 ####[facility] [address] [place], [address] Potassium [Moles/Vol] 3.8 mmol/L Normal 3.3-5.1 [facility] Comment on above: Performed By: #### L 500.4050, L501.2450 ####[facility] [address] [place], [address] Sodium [Moles/Vol] 137 mmol/L Normal 133-145 [facility] Comment on above: Performed By: #### L 500.4050, L501.2450 ####[facility] [address] [place], [address] T PROT 5.6 g/dL Low 5.9-8.4 [facility] Comment on above: Performed By: #### L 500.4050, L501.2450 ####[facility] [address] [place], [address] Urea nitrogen [Mass/Vol] 15 mg/dL Normal 4-19 [facility] Comment on above: Performed By: #### L 500.4050, L501.2450 ####[facility] [address] [place], [address] Emergency Department Summary on 10-07-2025 Emergency Department Summary Normal [facility] Lipaseon 10-07-2025 Lipase [Catalytic activity/Vol] 54 U/L Normal 13-75 [facility] Comment on above: Result Comment: Seda doe note:LIPASE revised reference range effective 23.New Lipase methodology. Expected to produce lower valuesthan the previous assay method.NEW Reference Range: 13 - 75 U/L Performed By: #### L 500.4050, L501.2450 ####[facility] [address] [place], [address] Inital Evaluation (1) - PTon 09-30-2025 Inital Evaluation (1) - PT Normal [facility] .Auto Diffon 09-28-2025 Basophil, Absolute 0.0 10 3/mcL Normal 0.0-0.3 [facility] Comment on above: Performed By: #### A EVELIN ABSGEL #### [address] [address] Basophils/100 WBC (Bld) 0.2 % Normal 0.0-2.5 [facility] Comment on above: Performed By: #### A EVELIN ABSGEL #### [address] [address] Eosinophil, Absolute 0.0 10 3/mcL Normal 0.0-0.7 [facility] Comment on above: Performed By: #### A EVELIN ABSGEL #### [address] [place], [place] [address] Eosinophils/100 WBC (Bld) 0.0 % Normal 0.0-6.0 [facility] Comment on above: Performed By: #### A EVELIN ABSGEL #### [address] [place], [place] [address] Lymphocyte, Absolute 1.2 10 3/mcL Normal 0.9-4.3 [facility] Comment on above: Performed By: #### A EVELIN ABSGEL #### [address] [address] Lymphocytes/100 WBC (Bld) 11.4 % Low 20.0-40.0 [facility] Comment on above: Performed By: #### A EVELIN ABSGEL #### [address] [place], [place] [address] Monocyte, Absolute 0.9 10 3/mcL Normal 0.1-1.4 [facility] Comment on above: Performed By: #### A EVELIN ABSGEL #### [address] [address] Monocytes/100 WBC (Bld) 8.3 % Normal 2.0-13.0 [facility] Comment on above: Performed By: #### A EVELIN ABSGEL #### [address] [address] Neutrophils/100 WBC (Bld) 80.1 % High 50.0-75.0 [facility] Comment on above: Performed By: #### A EVELIN ABSGEL #### [address] [address] .GFRon 09-28-2025 Estimated Glomerular Filtration Rate 56 ml/min/1.73sqm Normal [facility] Comment on above: Result Comment: Stages of [...] the eGFR results. Performed By: #### A EVELIN ABSGEL #### [address] [address] .NEUABSon 09-28-2025 Neutrophil, Absolute 8.4 10 3/mcL High 2.3-8.1 [facility] Comment on above: Performed By: #### A MORENA WATERS #### [address] [address] BMPon 09-28-2025 BUN/Creatinine Ratio 16 ratio Normal 7-27 [facility] Comment on above: Performed By: #### A MORENA WATERS #### [address] [address] Calcium [Mass/Vol] 8.4 mg/dL Normal 8.4-10.2 [facility] Comment on above: Performed By: #### A MORENA WATERS #### [address] [address] Chloride [Moles/Vol] 105 mmol/L Normal 98-107 [facility] Comment on above: Performed By: #### A MORENA WATERS #### [address] [address] CO2 [Moles/Vol] 29 mmol/L Normal 23-31 [facility] Comment on above: Performed By: #### A MORENA WATERS #### [address] [address] Creatinine [Mass/Vol] 1.03 mg/dL High 0.51-0.95 [facility] Comment on above: Performed By: #### A MORENA WATERS #### [address] [address] Electrolyte Balance 6.0 mEq/L Normal 4.0-15.0 [facility] Comment on above: Performed By: #### A MORENA WATERS #### [address] [address] Glucose [Mass/Vol] 131 mg/dL High 83-110 [facility] Comment on above: Performed By: #### A MORENA WATERS #### [address] [address] Potassium [Moles/Vol] 3.8 mmol/L Normal 3.5-5.1 [facility] Comment on above: Performed By: #### A MORENA WATERS #### [address] [address] Sodium [Moles/Vol] 140 mmol/L Normal 136-145 [facility] Comment on above: Performed By: #### A MORENA WATERS #### [address] [address] Urea nitrogen [Mass/Vol] 16 mg/dL Normal 7-18 [facility] Comment on above: Performed By: #### A MORENA WATERS #### [address] [address] CBCon 09-28-2025 Erythrocyte distribution width (RBC) [Ratio] 18.6 % High 11.5-15.5 [facility] Comment on above: Performed By: #### A MORENA WATERS #### [address] [address] Hematocrit (Bld) [Volume fraction] 33.9 % Low 34.0-46.0 [facility] Comment on above: Performed By: #### A MORENA WATERS #### [address] [address] Hgb 11.2 G/dL Low 12.0-16.0 [facility] Comment on above: Performed By: #### A MORENA WATERS #### [address] [address] MCH (RBC) [Entitic mass] 27.9 pg Normal 27.0-33.0 [facility] Comment on above: Performed By: #### A MORENA WATERS #### [address] [address] MCHC 33.0 G/dL Normal 32.0-36.0 [facility] Comment on above: Performed By: #### A MORENA WATERS #### [address] [address] MCV (RBC) [Entitic vol] 84.6 fL Normal 80.0-99.0 [facility] Comment on above: Performed By: #### A MORENA WATERS #### [address] [place], [place] [address] Platelet 309 10 3/mcL Normal 150-450 [facility] Comment on above: Performed By: #### A MORENA WATERS #### [address] [place], [place] [address] Platelet mean volume (Bld) [Entitic vol] 7.8 fL Normal 6.6-10.5 [facility] Comment on above: Performed By: #### MORENA CHOPRA #### [address] [address] RBC 4.01 10 6/mcL Low 4.10-5.30 [facility] Comment on above: Performed By: #### MORENA CHOPRA #### [address] [address] WBC 10.5 10 3/mcL Normal 4.5-10.8 [facility] Comment on above: Performed By: #### MORENA CHOPRA #### [address] [address] LABORATORYOrdered By: SYSTEM SYSTEM on 09-28-2025 Basophils [...] 09-27-2025 ABO/Rh Interp Positive Invalid Interpretation Code [facility] Comment on above: Performed By: #### A MORENA WATERS #### [address] [address] ABS (Gel)on 09-27-2025 ABSC Interp (Gel) Negative Normal [facility] Comment on above: Performed By: #### A MORENA WATERS #### [address] [address] LABORATORYOrdered By: Sakina Saldaña on 09-27-2025 ABO [...] 12:09:50 PM Ordering Provider: VERONICA CARLISLE RP [facility]iation Oncology Visiton 1 Radiation Oncology Visit [facility] CT KNEE W/O CONTRAST LEFTon 08-30-2025 CT [...] 08/30/2025 10:25:00 AM Ordering Provider: VERONICA CARLISLE RP Normal [facility] .Auto Diffon 08-29-2025 Basophil, Absolute 0.1 10 3/mcL Normal 0.0-0.3 [facility] Comment on above: Performed By: #### A BSGEL, ABOGEL, CBC, ADIFF, ANEU, BMP, ALB, GFR #### [address] [address] Basophils/100 WBC (Bld) 1.0 % Normal 0.0-2.5 [facility] Comment on above: Performed By: #### A BSGEL, ABOGEL, CBC, ADIFF, ANEU, BMP, ALB, GFR #### [address] [address] Eosinophil, Absolute 0.1 10 3/mcL Normal 0.0-0.7 [facility] Comment on above: Performed By: #### A BSGEL, ABOGEL, CBC, ADIFF, ANEU, BMP, ALB, GFR #### [address] [address] Eosinophils/100 WBC (Bld) 1.8 % Normal 0.0-6.0 [facility] Comment on above: Performed By: #### A BSGEL, ABOGEL, CBC, ADIFF, ANEU, BMP, ALB, GFR #### [address] [address] Lymphocyte, Absolute 1.8 10 3/mcL Normal 0.9-4.3 [facility] Comment on above: Performed By: #### A BSGEL, ABOGEL, CBC, ADIFF, ANEU, BMP, ALB, GFR #### [address] [address] Lymphocytes/100 WBC (Bld) 31.6 % Normal 20.0-40.0 [facility] Comment on above: Performed By: #### A BSGEL, ABOGEL, CBC, ADIFF, ANEU, BMP, ALB, GFR #### [address] [address] Monocyte, Absolute 0.4 10 3/mcL Normal 0.1-1.4 [facility] Comment on above: Performed By: #### A BSGEL, ABOGEL, CBC, ADIFF, ANEU, BMP, ALB, GFR #### [address] [address] Monocytes/100 WBC (Bld) 7.7 % Normal 2.0-13.0 [facility] Comment on above: Performed By: #### A BSGEL, ABOGEL, CBC, ADIFF, ANEU, BMP, ALB, GFR #### [address] [address] Neutrophils/100 WBC (Bld) 57.9 % Normal 50.0-75.0 [facility] Comment on above: Performed By: #### A BSGEL, ABOGEL, CBC, ADIFF, ANEU, BMP, ALB, GFR #### [address] [address] .GFRon 08-29-2025 Estimated Glomerular Filtration Rate 45 ml/min/1.73sqm Normal [facility] Comment on above: Result Comment: Stages of [...] CBC, ADIFF, ANEU, BMP, ALB, GFR #### [address] [place], [place] [address] .NEUABSon 08-29-2025 Neutrophil, Absolute 3.3 10 3/mcL Normal 2.3-8.1 [facility] Comment on above: Performed By: #### A BSGEL, ABOGEL, CBC, ADIFF, ANEU, BMP, ALB, GFR #### [address] [address] ABO/Rh (Gel)on 08-29-2025 ABO/Rh Interp Positive Invalid Interpretation Code [facility] Comment on above: Order Comment: SURG ASHISH 09/27 -AC Performed By: #### A BSGEL, ABOGEL, CBC, ADIFF, ANEU, BMP, ALB, GFR #### [address] [address] ABS (Gel)on 08-29-2025 ABSC Interp (Gel) Negative Normal [facility] Comment on above: Order Comment: SURG ASHISH 09/27 -AC Performed By: #### A BSGEL, ABOGEL, CBC, ADIFF, ANEU, BMP, ALB, GFR #### [address] [address] ALBon 08-29-2025 Albumin Level 3.5 G/dL Normal 3.4-4.8 [facility] Comment on above: Performed By: #### A BSGEL, ABOGEL, CBC, ADIFF, ANEU, BMP, ALB, GFR #### [address] [address] BMPon 08-29-2025 BUN/Creatinine Ratio 19 ratio Normal 7-27 [facility] Comment on above: Performed By: #### A BSGEL, ABOGEL, CBC, ADIFF, ANEU, BMP, ALB, GFR #### [address] [address] Calcium [Mass/Vol] 8.3 mg/dL Low 8.4-10.2 [facility] Comment on above: Performed By: #### A BSGEL, ABOGEL, CBC, ADIFF, ANEU, BMP, ALB, GFR #### [address] [address] Chloride [Moles/Vol] 105 mmol/L Normal 98-107 [facility] Comment on above: Performed By: #### A BSGEL, ABOGEL, CBC, ADIFF, ANEU, BMP, ALB, GFR #### [address] [address] CO2 [Moles/Vol] 27 mmol/L Normal 23-31 [facility] Comment on above: Performed By: #### A BSGEL, ABOGEL, CBC, ADIFF, ANEU, BMP, ALB, GFR #### [address] [address] Creatinine [Mass/Vol] 1.23 mg/dL High 0.51-0.95 [facility] Comment on above: Performed By: #### A BSGEL, ABOGEL, CBC, ADIFF, ANEU, BMP, ALB, GFR #### [address] [address] Electrolyte Balance 10.0 mEq/L Normal 4.0-15.0 [facility] Comment on above: Performed By: #### A BSGEL, ABOGEL, CBC, ADIFF, ANEU, BMP, ALB, GFR #### [address] [address] Glucose [Mass/Vol] 125 mg/dL High 83-110 [facility] Comment on above: Performed By: #### A BSGEL, ABOGEL, CBC, ADIFF, ANEU, BMP, ALB, GFR #### [address] [address] Potassium [Moles/Vol] 3.6 mmol/L Normal 3.5-5.1 [facility] Comment on above: Performed By: #### A BSGEL, ABOGEL, CBC, ADIFF, ANEU, BMP, ALB, GFR #### [address] [address] Sodium [Moles/Vol] 142 mmol/L Normal 136-145 [facility] Comment on above: Performed By: #### A BSGEL, ABOGEL, CBC, ADIFF, ANEU, BMP, ALB, GFR #### [address] [address] Urea nitrogen [Mass/Vol] 23 mg/dL High 7-18 [facility] Comment on above: Performed By: #### A BSGEL, ABOGEL, CBC, ADIFF, ANEU, BMP, ALB, GFR #### [address] [address] CBCon 08-29-2025 Erythrocyte distribution width (RBC) [Ratio] 16.9 % High 11.5-15.5 [facility] Comment on above: Order Comment: Pre-A dmission Testing Performed By: #### A BSGEL, ABOGEL, CBC, ADIFF, ANEU, BMP, ALB, GFR #### [address] [place] [address] Hematocrit (Bld) [Volume fraction] 36.6 % Normal 34.0-46.0 [facility] Comment on above: Order Comment: Pre-A dmission Testing Performed By: #### A BSGEL, ABOGEL, CBC, ADIFF, ANEU, BMP, ALB, GFR #### [address] [place] [address] Hgb 12.0 G/dL Normal 12.0-16.0 [facility] Comment on above: Order Comment: Pre-A dmission Testing Performed By: #### A BSGEL, ABOGEL, CBC, ADIFF, ANEU, BMP, ALB, GFR #### [address] [place] [address] MCH (RBC) [Entitic mass] 27.2 pg Normal 27.0-33.0 [facility] Comment on above: Order Comment: Pre-A dmission Testing Performed By: #### A BSGEL, ABOGEL, CBC, ADIFF, ANEU, BMP, ALB, GFR #### [place] [address] MCHC 32.7 G/dL Normal 32.0-36.0 [facility] Comment on above: Order Comment: Pre-A dmission Testing Performed By: #### A BSGEL, ABOGEL, CBC, ADIFF, ANEU, BMP, ALB, GFR #### [address] [place] [address] MCV (RBC) [Entitic vol] 83.2 fL Normal 80.0-99.0 [facility] Comment on above: Order Comment: Pre-A dmission Testing Performed By: #### A BSGEL, ABOGEL, CBC, ADIFF, ANEU, BMP, ALB, GFR #### [address] [address] Platelet 383 10 3/mcL Normal 150-450 [facility] Comment on above: Order Comment: Pre-A dmission Testing Performed By: #### A BSGEL, ABOGEL, CBC, ADIFF, ANEU, BMP, ALB, GFR #### [address] [place] [address] Platelet mean volume (Bld) [Entitic vol] 7.7 fL Normal 6.6-10.5 [facility] Comment on above: Order Comment: Pre-A dmission Testing Performed By: #### A BSGEL, ABOGEL, CBC, ADIFF, ANEU, BMP, ALB, GFR #### [place] [address] RBC 4.40 10 6/mcL Normal 4.10-5.30 [facility] Comment on above: Order Comment: Pre-A dmission Testing Performed By: #### A BSGEL, ABOGEL, CBC, ADIFF, ANEU, BMP, ALB, GFR #### [place] [address] WBC 5.7 10 3/mcL Normal 4.5-10.8 [facility] Comment on above: Order Comment: Pre-A dmission Testing Performed By: #### A BSGEL, ABOGEL, CBC, ADIFF, ANEU, BMP, ALB, GFR #### [address] [address] LABORATORYOrdered By: Hilaria Goff on 08-29-2025 ABO and Rh group Nom (Bld) Blood group A Rh(D) positive Invalid Interpretation Code AO BB Auto SS Blood group antibody screen Ql Negative ABSC (08/29/25 1:47 PM) Normal AO BB Auto SS LABORATORYOrdered By: Bycler SYSTEM on 08-29-2025 Albumin BCP dye [Mass/Vol] [...] Comment on above: Result Comment: [place] [id number] MRSA PCR Int See Below 2 *NA* [...] MRSA (PCR) Not detected Normal Not Detected [facility] Comment on above: Result Comment: [place] [id number] Performed By: #### A MORENA WATERS #### [address] [place], [place] [address] MRSA PCR Int See Below Normal [facility] Comment on above: Result Comment: Clinical Interpretation: [...] Performed By: #### A MORENA WATERS #### [address] [address] Anion gap in Serum or Plasma Ordered By: Rayshawn Chaudhary on 08-11-2025 Anion gap [Moles/Vol] 11 mmol/L 5-15 [facility] BUN/creatinine ratioOrdered By: Rayshawn Chaudhary on 08-11-2025 Urea nitrogen/Creatinine [Mass ratio] 15.3 mg/mg 10-20 [facility] Bilirubin Test strip Ql (U)O rdered By: Rayshawn Chaudhary on 08-11-2025 Bilirubin Ql (U) Negative Negative [facility] Bilirubin, totalOrdered By: Rayshawn Chaudhary on 08-11-2025 Bilirubin [Mass/Vol] 0.44 mg/dL 0.00-1.30 [facility] Calculated very low density lipoprotein (VLDL) cholesterol measurementOrdered By: Rayshawn Chaudhary on 08-11-2025 Calculated very low density lipoprotein (VLDL) cholesterol measurement 30 mg/dL 5-40 [facility] Carbon dioxide, total [Moles /volume] in Central venous bloodOrdered By: Rayshawn Chaudhary on 08-11-2025 CO2 [Moles/Vol] 26.5 mmol/L 21.0-32.0 [facility] Chloride assayOrdered By: Kaylynn Chaudhary on 08-11-2025 Chloride [Moles/Vol] 103 mmol/L 98-108 [facility] Comprehensive Metabolic Prof ilon 08-11-2025 Albumin/Globulin [Mass ratio] 1.4 {ratio} Normal 0.9-2.4 [facility] Comment on above: Performed By: #### L 501.9520, L500.4100, L400.2010, L500.4050, L502.0250, L501.9985 ####[facility] [address] [place], [address] ALK PHOS 44 U/L Normal 35-104 [facility] Comment on above: Performed By: #### L 501.9520, L500.4100, L4, L500.4050, L502.0250, L501.9985 ####[facility] [address] [place], [address] ALT [Catalytic activity/Vol] 13 U/L Normal <=34 [facility] Comment on above: Performed By: #### L 501.9520, L500.4100, L400.2010, L500.4050, L502.0250, L501.9985 ####[facility] [address] [place], [address] AST [Catalytic activity/Vol] 21 U/L Normal <=31 [facility] Comment on above: Performed By: #### L 501.9520, L500.4100, L400.2010, L500.4050, L502.0250, L501.9985 ####[facility] [address] [place], [address] Bilirubin [Mass/Vol] 0.44 mg/dL Normal 0.00-1.30 [facility] Comment on above: Performed By: #### L 501.9520, L500.4100, L400.2010, L500.4050, L502.0250, L501.9985 ####[facility] [address] [place], [address] Calcium [Mass/Vol] 9.5 mg/dL Normal 7.6-11.0 [facility] Comment on above: Performed By: #### L 501.9520, L500.4100, L400.2010, L500.4050, L502.0250, L501.9985 ####[facility] [address] [place], [address] Chloride [Moles/Vol] 103 mmol/L Normal 98-108 [facility] Comment on above: Performed By: #### L 501.9520, L500.4100, L400.2010, L500.4050, L502.0250, L501.9985 ####[facility] [address] [place], [address] CO2 [Moles/Vol] 26.5 mmol/L Normal 21.0-32.0 [facility] Comment on above: Performed By: #### L 501.9520, L500.4100, L400.2010, L500.4050, L502.0250, L501.9985 ####[facility] [address] [place], [address] GAP 11 Normal 5-15 [facility] Comment on above: Performed By: #### L 501.9520, L500.4100, L400.2010, L500.4050, L502.0250, L501.9985 ####[facility] [address] [place], [address] Globulin (S) [Mass/Vol] 3.1 g/dL Normal 2.2-4.2 [facility] Comment on above: Performed By: #### L 501.9520, L500.4100, L400.2010, L500.4050, L502.0250, L501.9985 ####[facility] [address] [place], [address] Potassium [Moles/Vol] 4.2 mmol/L Normal 3.3-5.1 [facility] Comment on above: Performed By: #### L 501.9520, L500.4100, L400.2010, L500.4050, L502.0250, L501.9985 ####[facility] [address] [place], [address] Sodium [Moles/Vol] 141 mmol/L Normal 133-145 [facility] Comment on above: Performed By: #### L 501.9520, L500.4100, L400.2010, L500.4050, L502.0250, L501.9985 ####[facility] [address] [place], [address] Albumin [Mass/Vol] 4.2 g/dL Normal 3.4-4.8 [facility] Comment on above: Performed By: #### L 501.9520, L500.4100, L400.2010, L500.4050, L502.0250, L501.9985 ####[facility] [address] [place], [address] BUN/CRE 15.3 RATIO Normal 10-20 [facility] Comment on above: Performed By: #### L 501.9520, L500.4100, L400.2010, L500.4050, L502.0250, L501.9985 ####[facility] [address] [place], [address] Creatinine [Mass/Vol] 1.27 mg/dL High 0.70-1.20 [facility] Comment on above: Performed By: #### L 501.9520, L500.4100, L400.2010, L500.4050, L502.0250, L501.9985 ####[facility] [address] [place], [address] GFR/1.73 sq M.predicted among non-blacks MDRD (S/P/Bld) [Vol rate/Area] 43 mL/min/{1.73_m2} Low >60 [facility] Comment on above: Result Comment: mL/m in/1.73m2 CKD-EPI Creatinine Equation (2020) Performed By: #### L 501.9520, L500.4100, L400.2010, L500.4050, L502.0250, L501.9985 ####[facility] [address] [place], [address] Glucose [Mass/Vol] 106 mg/dL High 70-99 [facility] Comment on above: Performed By: #### L 501.9520, L500.4100, L400.2010, L500.4050, L502.0250, L501.9985 ####[facility] [address] [place], [address] T PROT 7.4 g/dL Normal 5.9-8.4 [facility] Comment on above: Performed By: #### L 501.9520, L500.4100, L400.2010, L500.4050, L502.0250, L501.9985 ####[facility] [address] [place], [address] Urea nitrogen [Mass/Vol] 19 mg/dL Normal 4-19 [facility] Comment on above: Performed By: #### L 501.9520, L500.4100, L400.2010, L500.4050, L502.0250, L501.9985 ####[facility] [address] [place], [address] Glomerular filtration rate ( GFR) estimation/1.73 sq m using serum, plasma, or whole bOrdered By: Rayshawn Chaudhary on 08-11-2025 GFR/1.73 sq M.predicted among non-blacks MDRD (S/P/Bld) [Vol rate/Area] 43 mL/min/{1.73_m2} Low >60 [facility] Comment on above: mL/min/1.73m2 CKD-EP I Creatinine Equation (2020) Hemoglobin A1con 08-11-2025 HbA1c (Bld) [Mass fraction] 5.9 % High <=5.6 [facility] Comment on above: Result Comment: Norm al < 5.7 % Prediabetic 5.7 - 6.4 % Diabetic >or= 6.5 % Please note range changes. Performed By: #### L 501.9520, L500.4100, L400.2010, L500.4050, L502.0250, L501.9985 ####[facility] [address] [place], [place], [id number] Hemoglobin A1c percentageOrd ered By: Rayshawn Chaudhary on 08-11-2025 HbA1c (Bld) [Mass fraction] 5.9 % High <5.7 [facility] Comment on above: Normal < 5.7 % Predi abetic 5.7 - 6.4 % Diabetic >or= 6.5 % Please note range changes. Ketones Test strip Ql (U)Ord ered By: Rayshawn Chaudhary on 08-11-2025 Ketones Ql (U) Negative Negative [facility] LDL calc ser/plasOrdered By: Rayshawn Chaudhary on 08-11-2025 Cholesterol in LDL [Mass/Vol] 81 mg/dL [facility] Comment on above: Ozyknsexia=526-592 m g/dL & Higher Xize=156 mg/dL or greaterFriedwald Equation for LDL-C Laboratory - Chemistry and C hemistry - challengeOrdered By: Rayshawn Chaudhary on 08-11-2025 AST [Catalytic activity/Vol] 21 U/L <32 [facility] Lipid Profileon 08-11-2025 CHOL:HDL 2.95 Normal [facility] Comment on above: Performed By: #### L 501.9520, L500.4100, L400.2010, L500.4050, L502.0250, L501.9985 ####[facility] [address] [place], [address] Cholesterol [Mass/Vol] 168 mg/dL Normal <=200 [facility] Comment on above: Result Comment: Chol esterol level, Desirable <200 mg/dLBorderline high cholesterol 200-239 mg/dLHigh cholesterol >=240 mg/dLRecommendations of the NCEP Adult Treatment Panel for thefollowing risk-cutoff thresholds for the [place] [facility]. Performed By: #### L 501.9520, L500.4100, L4, L500.4050, L502.0250, L501.9985 ####[facility] [address] [place], [address] Cholesterol in HDL [Mass/Vol] 57 mg/dL Normal [facility] Comment on above: Result Comment: Tiffanie onal Cholesterol Education Program (NCEP) guidelines:<40 mg/dL: Low HDL-cholesterol (major risk factor for CHD)>= 60 mg/dL: High HDL-cholesterol (negative risk factor forCHD)HDL-cholesterol is affected by a number of factors, e.g.smoking, exercise, hormones, sex and age. Performed By: #### L 501.9520, L500.4100, L4, L500.4050, L502.0250, L501.9985 ####[facility] [address] [place], [address] Cholesterol in LDL [Mass/Vol] 81 mg/dL Normal [facility] Comment on above: Result Comment: Bord oknxol=263-713 mg/dL Higher Hbao=954 mg/dL or greaterFriedwald Equation for LDL-C Performed By: #### L 501.9520, L500.4100, L400.2010, L500.4050, L502.0250, L501.9985 ####[facility] [address] [place], [address] Cholesterol in VLDL [Mass/Vol] 30 mg/dL Normal 5-40 [facility] Comment on above: Performed By: #### L 501.9520, L500.4100, L4, L500.4050, L502.0250, L501.9985 ####[facility] [address] [place], [place], [address] Triglyceride [Mass/Vol] 149 mg/dL Normal [facility] Comment on above: Result Comment: The drugs N-Acetylcysteine and Metamizole may falselydepress this assay.Normal range: <150 mg/dLBorderline High: 150-199 mg/dLHigh: 200-499 mg/dLVery High: >500 mg/dL Performed By: #### L 501.9520, L500.4100, L4, L500.4050, L502.0250, L501.9985 ####[facility] [address] [place], [place], [address] Microalb:Creat Ratio,Random URon 08-11-2025 Creatinine [Mass/Vol] 100.00 mg/dL Normal 28.00- 217.0 0 [facility] Comment on above: Performed By: #### L 501.9520, L500.4100, L4, L500.4050, L502.0250, L501.9985 ####[facility] [address] [place], [place], [id number] MALB:CREAT UNABLE TO CALCULATE Normal <30 mg/g CRE [facility] Comment on above: Performed By: #### L 501.9520, L500.4100, L4, L500.4050, L502.0250, L501.9985 ####[facility] [address] [place], [place], [address] MICROALBUMIN,UR < 12.0 Normal <20 mg/L [facility] Comment on above: Performed By: #### L 501.9520, L500.4100, L4, L500.4050, L502.0250, L501.9985 ####[facility] [address] [place], [address] Microalbumin/creat ratio urO rdered By: Rayshawn Chaudhary on 08-11-2025 Urine microalbumin/creatinin e ratio measurement UNABLE TO CALCULATE mg/g CRE <30 [facility] Nitrite Test strip Ql (U)Ord ered By: Rayshawn Chaudhary on 08-11-2025 Nitrite Ql (U) Negative Negative [facility] Potassium measurement (mass/ volume)Ordered By: Rayshawn Chaudhary on 08-11-2025 Potassium (Unsp spec) [Mass/Vol] 4.2 mmol/L 3.3-5.1 [facility] Protein Test strip Ql (U)Ord ered By: Rayshawn Chaudhary on 08-11-2025 Protein Ql (U) 15 mg/dl High Negative [facility] Random urine creatinine be urement (mass/volume)Ordered By: Rayshawn Chaudhary on 08-11-2025 Creatinine Unsp time (U) [Mass/Vol] 100.00 mg/dL 28.00-217.0 0 [facility] Screening total cholesterol/ high density lipoprotein (HDL) cholesterol ratioOrdered By: Rayshawn Chaudhary on 08-11-2025 Cholesterol.total/Chol esterol in HDL [Mass ratio] 2.95 {ratio} [facility] Serum creatinine measurement (mass/volume)Ordered By: Rayshawn Chaudhary on 08-11-2025 Creatinine [Mass/Vol] 1.27 mg/dL High 0.70-1.20 [facility] Serum globulin measurementOr dered By: Rayshawn Chaudhary on 08-11-2025 Globulin (S) [Mass/Vol] 3.1 g/dL 2.2-4.2 [facility] Serum glucose measurement (m ass/volume)Ordered By: Rayshawn Chaudhary on 08-11-2025 Glucose [Mass/Vol] 106 mg/dL High 70-99 [facility] Serum or plasma alanine amezcua otransferase (ALT) measurementOrdered By: Rayshawn Chaudhary on 08-11-2025 ALT [Catalytic activity/Vol] 13 U/L <35 [facility] Serum or plasma albumin be urement (mass/volume)Ordered By: Rayshawn Chaudhary on 08-11-2025 Albumin [Mass/Vol] 4.2 g/dL 3.4-4.8 [facility] Serum or plasma albumin/glob ulin mass ratioOrdered By: Rayshawn Chaudhary on 08-11-2025 Albumin/Globulin [Mass ratio] 1.4 {ratio} 0.9-2.4 [facility] Serum or plasma alkaline leonardo sphatase measurementOrdered By: Rayshawn Chaudhary on 08-11-2025 ALP [Catalytic activity/Vol] 44 U/L 35-104 [facility] Serum or plasma calcium be urement (mass/volume)Ordered By: Rayshawn Chaudhary on 08-11-2025 Calcium [Mass/Vol] 9.5 mg/dL 7.6-11.0 [facility] Serum or plasma cholesterol in HDL measurement (mass/volume)Ordered By: Rayshawn Chaudhary on 08-11-2025 Cholesterol in HDL [Mass/Vol] 57 mg/dL >40 [facility] Comment on above: National Cholesterol Education Program (NCEP) guidelines:<40 mg/dL: Low HDL-cholesterol (major risk factor for CHD)>= 60 mg/dL: High HDL-cholesterol (negative risk factor for CHD)HDL-cholesterol is affected by a number of factors, e.g. smoking, exercise, hormones, sex and age. Serum or plasma cholesterol measurement (mass/volume)Ordered By: Rayshawn Chaudhary on 08-11-2025 Cholesterol [Mass/Vol] 168 mg/dL <201 [facility] Comment on above: Cholesterol level, D esirable <200 mg/dLBorderline high cholesterol 200-239 mg/dLHigh cholesterol >=240 mg/dLRecommendations of the NCEP Adult Treatment Panel for the following risk-cutoff thresholds for the [place] population. Serum or plasma urea nitroge n measurement (mass/volume)Ordered By: Rayshawn Chaudhary on 08-11-2025 Urea nitrogen [Mass/Vol] 19 mg/dL 4-19 [facility] Sodium levelOrdered By: Alba Chaudhary on 08-11-2025 Sodium [Moles/Vol] 141 mmol/L 133-145 [facility] TSH DL <= 0.005 mIU/L QnOrde red By: Rayshawn Maurice on 08-11-2025 TSH Qn 4.090 uIU/mL 0.300-4.200 [facility] Thyroid Stim Hormone (TSH)on 08-11-2025 TSH 4.090 uIU/mL Normal 0.300-4.200 [facility] Comment on above: Performed By: #### L 501.9520, L500.4100, L400.2010, L500.4050, L502.0250, L501.9985 ####[facility] [address] [place], [address] Total proteinOrdered By: Jacinto Chaudhary on 08-11-2025 Protein [Mass/Vol] 7.4 g/dL 5.9-8.4 [facility] Triglycerides measurementOrd ered By: Rayshawn Chaudhary on 08-11-2025 Triglyceride [Mass/Vol] 149 mg/dL <199 [facility] Comment on above: The drugs N-Acetylcy steine and Metamizole may falsely depress this assay. Normal range: <150 mg/dLBorderline High: 150-199 mg/dLHigh: 200-499 mg/dLVery High: >500 mg/dL Urinalysis, Routine (Dipstic k)on 08-11-2025 BILIRUBIN URINE Negative Normal Negative [facility] Comment on above: Order Comment: CLEAN CATCH Performed By: #### L 501.9520, L500.4100, L400.2010, L500.4050, L502.0250, L501.9985 ####[facility] [address], [address] Clarity (U) Clear Normal Clear [facility] Comment on above: Order Comment: CLEAN CATCH Performed By: #### L 501.9520, L500.4100, L400.2010, L500.4050, L502.0250, L501.9985 ####[facility] [address] [place], [address] Color (U) Yellow Normal Yellow [facility] Comment on above: Order Comment: CLEAN CATCH Performed By: #### L 501.9520, L500.4100, L400.2010, L500.4050, L502.0250, L501.9985 ####[facility] [address] [place], [address] GLUCOSE, UR Normal Normal Normal [facility] Comment on above: Order Comment: CLEAN CATCH Performed By: #### L 501.9520, L500.4100, L400.2010, L500.4050, L502.0250, L501.9985 ####[facility] [address] [place], [address] KETONE UR Negative Normal Negative [facility] Comment on above: Order Comment: CLEAN CATCH Performed By: #### L 501.9520, L500.4100, L400.2010, L500.4050, L502.0250, L501.9985 ####[facility] [address] [place], [address] LEUK ESTERASE 500 /ul Abnormal Negative [facility] Comment on above: Order Comment: CLEAN CATCH Performed By: #### L 501.9520, L500.4100, L400.2010, L500.4050, L502.0250, L501.9985 ####[facility] [address] [place], [address] Nitrite Ql (U) Negative Normal Negative [facility] Comment on above: Order Comment: CLEAN CATCH Performed By: #### L 501.9520, L500.4100, L400.2010, L500.4050, L502.0250, L501.9985 ####[facility] [address] [place], [address] OCCULT BLOOD-UR Negative Normal Negative [facility] Comment on above: Order Comment: CLEAN CATCH Performed By: #### L 501.9520, L500.4100, L400.2010, L500.4050, L502.0250, L501.9985 ####[facility] [address] [place], [address] pH UR 6.0 Normal 5.0 - 8.0 [facility] Comment on above: Order Comment: CLEAN CATCH Performed By: #### L 501.9520, L500.4100, L400.2011, L500.4050, L502.0250, L501.9985 ####[facility] [address] [place], [address] PROT DIPSTX 15 mg/dl Abnormal Negative [facility] Comment on above: Order Comment: CLEAN CATCH Performed By: #### L 501.9520, L500.4100, L400.2010, L500.4050, L502.0250, L501.9985 ####[facility] [address] [place], [address] SP.GR. DIPSTX 1.010 Normal 1.002-1.030 [facility] Comment on above: Order Comment: CLEAN CATCH Performed By: #### L 501.9520, L500.4100, L400.2010, L500.4050, L502.0250, L501.9985 ####[facility] [address] [place], [address] UROBILI Normal Normal Normal [facility] Comment on above: Order Comment: CLEAN CATCH Performed By: #### L 501.9520, L500.4100, L400.2010, L500.4050, L502.0250, L501.9985 ####[facility] [address] [place], [address] Urine albumin measurement wi detection limit of 20 mg/L or less (mass/volume)Ordered By: Rayshawn Chaudhary on 08-11-2025 Albumin DL <= 20 mg/L (U) [Mass/Vol] < 12.0 mg/L <20 mg/L [facility] Urine clarityOrdered By: Jacinto Chaudhary on 08-11-2025 Clarity (U) Clear Clear [facility] Urine color determinationOrd ered By: Rayshawn Chaudhary on 08-11-2025 Color (U) Yellow Yellow [facility] Urine glucose detectionOrder ed By: Rayshawn Chaudhary on 08-11-2025 Glucose Ql (U) Normal mg/dl Normal [facility] Urine leukocyte esterase det ection by dipstickOrdered By: Rayshawn Chaudhary on 08-11-2025 Leukocyte esterase Test strip Ql (U) 500 /ul High Negative [facility] Urine pHOrdered By: Rayshawn Chaudhary on 08-11-2025 pH (U) 6.0 [pH] 5.0 - 8.0 [facility] Urine specific gravity measu rementOrdered By: Rayshawn Chaudhary on 08-11-2025 Specific gravity (U) [Rel density] 1.010 1.002-1.030 [facility] Urine urobilinogen measureme ntOrdered By: Rayshawn Chaudhary on 08-11-2025 Urobilinogen Ql (U) Normal mg/dl Normal [facility] Laboratory - Chemistry and C hemistry - challengeOrdered By: Dia Villagran on 07-26-2025 Bilirubin Ql (U) Negative [facility] Glucose Ql (U) Negative [facility] Ketones Ql (U) Negative [facility] pH (U) 6 [pH] [facility] Specific gravity (U) [Rel density] 1.025 [facility] Urobilinogen (U) [Mass/Vol] Negative [facility] Laboratory - Hematology and Cell countsOrdered By: Dia Villagran on 07-26-2025 Hemoglobin Ql (U) Negative [facility] Laboratory - UrinalysisOrder ed By: Dia Villagran on 07-26-2025 Nitrite Ql (U) Negative [facility] Protein Ql (U) Trace [facility] MR/BMSDERICKon 07-26-2025 MR/BMS.JENNIE Normal [facility] No Panel InformationOrdered By: Dia Villagran on 07-26-2025 Urine Leukocytes Positive [facility] Urine Non-Hemolyzed Blood Negative [facility] Anion gap in Serum or Plasma Ordered By: Ximena Stanley on 07-21-2025 Anion gap [Moles/Vol] 12 mmol/L - [facility] BUN/creatinine ratioOrdered By: Marcrory Elizabethkristina on 07-21-2025 Urea nitrogen/Creatinine [Mass ratio] 15.2 mg/mg 09-19 [facility] Basic Metabolic Profile (BMP )on 07-21-2025 BUN/CRE 15.2 RATIO Normal - [facility] Comment on above: Performed By: #### L 500.2500 ####[facility] [address] [place], [address] Calcium [Mass/Vol] 9.4 mg/dL Normal 7.6-11.0 [facility] Comment on above: Performed By: #### L 500.2500 ####[facility] [address] [place], [address] Chloride [Moles/Vol] 103 mmol/L Normal 98-108 [facility] Comment on above: Performed By: #### L 500.2500 ####[facility] [address] [place], [address] CO2 [Moles/Vol] 23.6 mmol/L Normal 21.0-32.0 [facility] Comment on above: Performed By: #### L 500.2500 ####[facility] [address] [place], [address] Creatinine [Mass/Vol] 1.15 mg/dL Normal 0.70-1.20 [facility] Comment on above: Performed By: #### L 500.2500 ####[facility] [address] [place], [address] ECRCL 38.46 ml/min Low 50-250 [facility] Comment on above: Performed By: #### L 500.2500 ####[facility] [address] [place], [address] GAP 12 Normal - [facility] Comment on above: Performed By: #### L 500.2500 ####[facility] [address] [place], [address] GFR/1.73 sq M.predicted among non-blacks MDRD (S/P/Bld) [Vol rate/Area] 49 mL/min/{1.73_m2} Low >60 [facility] Comment on above: Result Comment: mL/m in/1.73m2 CKD-EPI Creatinine Equation (2020) Performed By: #### L 500.2500 ####[facility] [address] [place], [address] Glucose [Mass/Vol] 102 mg/dL High 70-99 [facility] Comment on above: Performed By: #### L 500.2500 ####[facility] [address] [place], [address] Potassium [Moles/Vol] 4.3 mmol/L Normal 3.3-5.1 [facility] Comment on above: Performed By: #### L 500.2500 ####[facility] [address] [place], [address] Sodium [Moles/Vol] 138 mmol/L Normal 133-145 [facility] Comment on above: Performed By: #### L 500.2500 ####[facility] [address] [place], [address] Urea nitrogen [Mass/Vol] 18 mg/dL Normal 4-19 [facility] Comment on above: Performed By: #### L 500.2500 ####[facility] [address] [place], [address] Carbon dioxide, total [Moles /volume] in Central venous bloodOrdered By: Ximena Stanley on 07-21-2025 CO2 [Moles/Vol] 23.6 mmol/L 21.0-32.0 [facility] Chloride assayOrdered By: Pina Stanley on 07-21-2025 Chloride [Moles/Vol] 103 mmol/L 98-108 [facility] Glomerular filtration rate ( GFR) estimation/1.73 sq m using serum, plasma, or whole bOrdered By: Ximena Stanley on 07-21-2025 GFR/1.73 sq M.predicted among non-blacks MDRD (S/P/Bld) [Vol rate/Area] 49 mL/min/{1.73_m2} Low >60 [facility] Comment on above: mL/min/1.73m2 CKD-EP I Creatinine Equation (2020) Oncology Visit Reporton 07-02 Oncology Visit Report Normal [facility] Potassium measurement (mass/ volume)Ordered By: Ximena Stanley on 07-21-2025 Potassium (Unsp spec) [Mass/Vol] 4.3 mmol/L 3.3-5.1 [facility] Serum creatinine measurement (mass/volume)Ordered By: Ximena Stanley on 07-21-2025 Creatinine [Mass/Vol] 1.15 mg/dL 0.70-1.20 [facility] Serum glucose measurement (m ass/volume)Ordered By: Ximena Stanley on 07-21-2025 Glucose [Mass/Vol] 102 mg/dL High 70-99 [facility] Serum or plasma calcium be urement (mass/volume)Ordered By: Ximena Stanley on 07-21-2025 Calcium [Mass/Vol] 9.4 mg/dL 7.6-11.0 [facility] Serum or plasma urea nitroge n measurement (mass/volume)Ordered By: Ximena Stanley on 07-21-2025 Urea nitrogen [Mass/Vol] 18 mg/dL 4-19 [facility] Sodium levelOrdered By: Marc Stanley on 07-21-2025 Sodium [Moles/Vol] 138 mmol/L 133-145 [facility] Maintenance [employer] Office Visit Reporton 07-05-2025 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 [employer]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 Office Visit Report Normal [facility] Radiation Oncology Visiton 0 05-26-2025 Radiation Oncology Visit Normal [facility] Stress Test Echo W/Contrasto n 05-23-2025 Stress Test Echo W/Contrast Normal [facility] Stress echocardiogram study reportOrdered By: Luis Carlos Zuluaga on 05-23-2025 Stress cardiac echo study report [facility] [address] [place] [address] Stress Test Echo W/Contrast MR#: [id number] Acct: [id number] Name: ALISTAIR ARECHIGA Rep #: [id number] : 1945 79 From: Luis Carlos Zuluaga MD Primary Care: EASTON DickersonC Status : REG CLI 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 [place], [place], [address] Ferritinon 04-26-2025 Ferritin [Mass/Vol] 15 ng/mL Low 22-378 [facility] Comment on above: Performed By: #### L 503.6550, L503.0106, L503.6030 ####[facility] [address] [place], [place], [address] Iron measurement (mass/mass) Ordered By: Rayshawn Chaudhary on 04-26-2025 Iron (Unsp spec) [Mass/Mass] 66 ug/dL 50-170 [facility] Iron+Iron Binding Capacityon 04-26-2025 TIBC 484 ug/dL High 250-450 [facility] Comment on above: Performed By: #### L 503.6550, L503.0106, L503.6030 ####[facility] [address] [place], [place], [address] No Panel InformationOrdered By: Rayshawn Chaudhary on 04-26-2025 Unsaturated Iron Binding Capacity 418 ug/dL 228-428 [facility] Serum or plasma ferritin mariana surement (mass/volume)Ordered By: Rayshawn Chaudhary on 04-26-2025 Ferritin [Mass/Vol] 15 ng/mL Low 22-378 [facility] Serum or plasma iron saturat ion measurement (mass fraction)Ordered By: Rayshawn Chaudhary on 04-26-2025 Iron saturation [Mass fraction] 13.6 % 13-59 [facility] Comment on above: Previous reported re sult: 14.0 %Edited by: TEMO on 04/26/25:1410 AMENDED REPORT 04/26/25 1410 IRON SATURATION previously reported as: 14.0 % Vitamin B12on 04-26-2025 Cobalamin (Vitamin B12) [Mass/Vol] 323 pg/mL Normal 180-914 [facility] Comment on above: Performed By: #### L 503.6550, L503.0106, L503.6030 ####[facility] [address] [place], [place], [address] Vitamin B12 ser/plasOrdered By: Rayshawn Chaudhary on 04-26-2025 Cobalamin (Vitamin B12) [Mass/Vol] 323 pg/mL 180-914 [facility] 12 Lead EKGon 04-23-2025 12 Lead EKG Normal [facility] Absolute lymphocyte countOrd ered By: Shaun Noriega on 04-23-2025 Lymphocytes Auto (Unsp spec) [#/Vol] 1.44 10*3/uL 0.83-4.51 [facility] Absolute neutrophil countOrd ered By: Shaun Noriega on 04-23-2025 Neutrophils (Bld) [#/Vol] 3.8 10*3/uL 2.0-7.7 [facility] Anion gap in Serum or Plasma Ordered By: Shaun Noriega on 04-23-2025 Anion gap [Moles/Vol] 12 mmol/L 5-15 [facility] Automated lymphocyte count a s percentage of total leukocytesOrdered By: Shaun Noriega on 04-23-2025 Lymphocytes/100 WBC Auto (Unsp spec) 24.3 % [facility] BUN/creatinine ratioOrdered By: [facility] on 04-23-2025 Urea nitrogen/Creatinine [Mass ratio] 17.4 mg/mg 09-19 [facility] Basic Metabolic Profile (BMP )on 04-23-2025 BUN/CRE 17.4 RATIO Normal 09-19 [facility] Comment on above: Performed By: #### L 500.2500, L501.4021 ####[facility] [address] [place], [address] Calcium [Mass/Vol] 9.6 mg/dL Normal 7.6-11.0 [facility] Comment on above: Performed By: #### L 500.2500, L501.4021 ####[facility] [address] [place], [address] Chloride [Moles/Vol] 103 mmol/L Normal 98-108 [facility] Comment on above: Performed By: #### L 500.2500, L501.4021 ####[facility] [address] [place], [address] CO2 [Moles/Vol] 24.3 mmol/L Normal 21.0-32.0 [facility] Comment on above: Performed By: #### L 500.2500, L501.4021 ####[facility] [address] [place], [address] Creatinine [Mass/Vol] 1.21 mg/dL High 0.70-1.20 [facility] Comment on above: Performed By: #### L 500.2500, L501.4021 ####[facility] [address] [place], [address] ECRCL 37.26 ml/min Low 50-250 [facility] Comment on above: Performed By: #### L 500.2500, L501.4021 ####[facility] [address] [place], [address] GAP 12 Normal 5-15 [facility] Comment on above: Performed By: #### L 500.2500, L501.4021 ####[facility] [address] [place], [address] GFR/1.73 sq M.predicted among non-blacks MDRD (S/P/Bld) [Vol rate/Area] 46 mL/min/{1.73_m2} Low >60 [facility] Comment on above: Result Comment: mL/m in/1.73m2 CKD-EPI Creatinine Equation (2020) Performed By: #### L 500.2500, L501.4021 ####[facility] [address] [place], [address] Glucose [Mass/Vol] 107 mg/dL High 70-99 [facility] Comment on above: Performed By: #### L 500.2500, L501.4021 ####[facility] [address] [place], [address] Potassium [Moles/Vol] 3.7 mmol/L Normal 3.3-5.1 [facility] Comment on above: Performed By: #### L 500.2500, L501.4021 ####[facility] [address] [place], [address] Sodium [Moles/Vol] 140 mmol/L Normal 133-145 [facility] Comment on above: Performed By: #### L 500.2500, L501.4021 ####[facility] [address] [place], [address] Urea nitrogen [Mass/Vol] 21 mg/dL High 4-19 [facility] Comment on above: Performed By: #### L 500.2500, L501.4021 ####[facility] [address] [place], [address] BUN Normal 4-19 [facility] Comment on above: Result Comment: MOVE D TO DIFFERENT ORDER Performed By: #### L 100.0100, L500.2500 ####[facility] [address] [place], [address] BUN/CRE Normal 10-20 [facility] Comment on above: Result Comment: MOVE D TO DIFFERENT ORDER Performed By: #### L 100.0100, L500.2500 ####[facility] [address] [place], [address] Calcium Normal 7.6-11.0 [facility] Comment on above: Result Comment: MOVE D TO DIFFERENT ORDER Performed By: #### L 100.0100, L500.2500 ####[facility] [address] [place], [address] CL Normal 98-108 [facility] Comment on above: Result Comment: MOVE D TO DIFFERENT ORDER Performed By: #### L 100.0100, L500.2500 ####[facility] [address] [place], [address] CO2 Normal 21.0-32.0 [facility] Comment on above: Result Comment: MOVE D TO DIFFERENT ORDER Performed By: #### L 100.0100, L500.2500 ####[facility] [address] [place], [address] CREAT,SERUM Normal 0.70-1.20 [facility] Comment on above: Result Comment: MOVE D TO DIFFERENT ORDER Performed By: #### L 100.0100, L500.2500 ####[facility] [address] [place], [address] eGFR Normal >60 [facility] Comment on above: Result Comment: MOVE D TO DIFFERENT ORDER Performed By: #### L 100.0100, L500.2500 ####[facility] [address] [place], [address] GAP Normal 5-15 [facility] Comment on above: Result Comment: MOVE D TO DIFFERENT ORDER Performed By: #### L 100.0100, L500.2500 ####[facility] [address] [place], [address] GLU Normal 70-99 [facility] Comment on above: Result Comment: MOVE D TO DIFFERENT ORDER Performed By: #### L 100.0100, L500.2500 ####[facility] [address] [place], [address] Potassium Normal 3.3-5.1 [facility] Comment on above: Result Comment: MOVE D TO DIFFERENT ORDER Performed By: #### L 100.0100, L500.2500 ####[facility] [address] [place], [address] Basic Metabolic Profile (BMP) Normal 133-145 [facility] Comment on above: Result Comment: MOVE D TO DIFFERENT ORDER Performed By: #### L 100.0100, L500.2500 ####[facility] [address] [place], [address] Basophil percentageOrdered B y: Shaun Noriega on 04-23-2025 Basophils/100 WBC (Bld) 1.0 % 0-1 [facility] Brain/Head without Contrasto n 04-23-2025 Brain/Head without Contrast Normal [facility] CBC W/Diff, Automatedon 04-01 Absolute Lymph 1.44 X10 3/uL Normal 0.83-4.51 [facility] Comment on above: Performed By: #### L 100.0100, L500.2500 ####[facility] [address] [place], [address] Absolute Neut 3.8 X10 3/uL Normal 2.0-7.7 [facility] Comment on above: Performed By: #### L 100.0100, L500.2500 ####[facility] [address] [place], [address] Basophils/100 WBC (Bld) 1.0 % Normal 0-1 [facility] Comment on above: Performed By: #### L 100.0100, L500.2500 ####[facility] [address] [place], [address] Eosinophils/100 WBC (Bld) 1.5 % Normal 0-5 [facility] Comment on above: Performed By: #### L 100.0100, L500.2500 ####[facility] [address] [place], [address] Erythrocyte distribution width (RBC) [Ratio] 15.4 % High 11.6-14.6 [facility] Comment on above: Performed By: #### L 100.0100, L500.2500 ####[facility] [address] [place], [address] Hematocrit (Bld) [Volume fraction] 36.7 % Low 37-47 [facility] Comment on above: Performed By: #### L 100.0100, L500.2500 ####[facility] [address] [place], [address] Hemoglobin (Bld) [Mass/Vol] 11.4 g/dL Low 12.0-15.0 [facility] Comment on above: Performed By: #### L 100.0100, L500.2500 ####[facility] [address] [place], [address] IG% 0.300 Normal 0.0-0.9 [facility] Comment on above: Result Comment: IG% - Immature Granulocytes (promyelocytes, myelocytes andmetamyelocytes) > 1% indicates that a LEFT SHIFT is Present. Performed By: #### L 100.0100, L500.2500 ####[facility] [address] [place], [address] Lymphocytes/100 WBC (Bld) 24.3 % Normal 19-41 [facility] Comment on above: Performed By: #### L 100.0100, L500.2500 ####[facility] [address] [place], [address] MCH (RBC) [Entitic mass] 25.3 pg Low 27.0-32.0 [facility] Comment on above: Performed By: #### L 100.0100, L500.2500 ####[facility] [address] [place], [address] MCHC (RBC) [Mass/Vol] 31.1 g/dL Low 32-36 [facility] Comment on above: Performed By: #### L 100.0100, L500.2500 ####[facility] [address] [place], [address] MCV (RBC) [Entitic vol] 81.6 fL Normal 81-99 [facility] Comment on above: Performed By: #### L 100.0100, L500.2500 ####[facility] [address] [place], [address] Monocytes/100 WBC (Bld) 9.1 % Normal 0-10 [facility] Comment on above: Performed By: #### L 100.0100, L500.2500 ####[facility] [address] [place], [address] Neutrophils/100 WBC (Bld) 63.8 % Normal 47-70 [facility] Comment on above: Performed By: #### L 100.0100, L500.2500 ####[facility] [address] [place], [address] Nucleated RBC (Bld) [#/Vol] 0 10*3/uL Normal 0-5 [facility] Comment on above: Performed By: #### L 100.0100, L500.2500 ####[facility] [address] [place], [address] Platelet mean volume (Bld) [Entitic vol] 9.1 fL Normal 6.2-12.0 [facility] Comment on above: Performed By: #### L 100.0100, L500.2500 ####[facility] [address] [place], [address] Platelets (Bld) [#/Vol] 375 10*3/uL Normal 150-450 [facility] Comment on above: Performed By: #### L 100.0100, L500.2500 ####[facility] [address] [place], [address] RBC (Bld) [#/Vol] 4.50 10*6/uL Normal 4.2-5.4 [facility] Comment on above: Performed By: #### L 100.0100, L500.2500 ####[facility] [address] [place], [address] RDW SD 45.6 fl High 35.1-43.9 [facility] Comment on above: Performed By: #### L 100.0100, L500.2500 ####[facility] [address] [place], [address] WBC (Bld) [#/Vol] 5.9 10*3/uL Normal 4.4-11.0 [facility] Comment on above: Performed By: #### L 100.0100, L500.2500 ####[facility] [address] [place], [address] Carbon dioxide, total [Moles /volume] in Central venous bloodOrdered By: Shaun Noriega on 04-23-2025 CO2 [Moles/Vol] 24.3 mmol/L 21.0-32.0 [facility] Chest PA and Lateralon 04-23 Chest PA and Lateral Normal [facility] Chloride assayOrdered By: Clint Noriega on 04-23-2025 Chloride [Moles/Vol] 103 mmol/L 98-108 [facility] Emergency Department Summary on 04-23-2025 Emergency Department Summary Normal [facility] Eosinophil percentageOrdered By: Shaun Noriega on 04-23-2025 Eosinophils/100 WBC (Bld) 1.5 % 0-5 [facility] Erythrocyte distribution wid th ratioOrdered By: Shaun Noriega on 04-23-2025 Erythrocyte distribution width (RBC) [Ratio] 15.4 % High 11.6-14.6 [facility] Erythrocyte distribution wid th standard deviationOrdered By: Shaun Singh on 04-23-2025 Erythrocyte distribution width (RBC) [Ratio] 45.6 fl High 35.1-43.9 [facility] Glomerular filtration rate ( GFR) estimation/1.73 sq m using serum, plasma, or whole bOrdered By: Shaun Noriega on 04-23-2025 GFR/1.73 sq M.predicted among non-blacks MDRD (S/P/Bld) [Vol rate/Area] 46 mL/min/{1.73_m2} Low >60 [facility] Comment on above: mL/min/1.73m2 CKD-EP I Creatinine Equation (2020) Hematocrit Auto (Bld) [Volum e fraction]Ordered By: Shaun Noriega on 04-23-2025 Hematocrit (Bld) [Volume fraction] 36.7 % Low 37-47 [facility] Hemoglobin measurementOrdere d By: Shaun Noriega on 04-23-2025 Hemoglobin (Bld) [Mass/Vol] 11.4 g/dL Low 12.0-15.0 [facility] Immature granulocytes/100 WB C Auto (Bld)Ordered By: Shaun Noriega on 04-23-2025 Immature granulocytes/100 WBC (Bld) 0.300 % 0.0-0.9 [facility] Comment on above: IG% - Immature Granu locytes (promyelocytes, myelocytes and metamyelocytes) > 1% indicates that a LEFT SHIFT is Present. L501.4021on 04-23-2025 Trop T High Sen 11 ng/L Normal <=14 [facility] Comment on above: Performed By: #### L 500.2500, L501.4021 ####[facility] [address] [place], [address] MCV (mean corpuscular volume ) determinationOrdered By: Shaun Noriega on 04-23-2025 MCV (RBC) [Entitic vol] 81.6 fL 81-99 [facility] Mean corpuscular hemoglobin (MCH) determinationOrdered By: Shaun Noriega on 04-23-2025 MCH (RBC) [Entitic mass] 25.3 pg Low 27.0-32.0 [facility] Mean corpuscular hemoglobin concentration (MCHC) determinationOrdered By: Shaun Noriega on 04-23-2025 MCHC (RBC) [Mass/Vol] 31.1 g/dL Low 32-36 [facility] Mean platelet volume determi nationOrdered By: Shaun Noriega on 04-23-2025 Platelet mean volume (Bld) [Entitic vol] 9.1 fL 6.2-12.0 [facility] Monocyte percentageOrdered B y: Shaun Noriega on 04-23-2025 Monocytes/100 WBC (Bld) 9.1 % 0-10 [facility] Neutrophil percentageOrdered By: Shaun Noriega on 04-23-2025 Neutrophils/100 WBC (Bld) 63.8 % 47-70 [facility] Nucleated red blood cell per centageOrdered By: Shaun Noriega on 04-23-2025 Nucleated RBC/100 WBC (Bld) [Ratio] 0 % 0-5 [facility] Platelet countOrdered By: Clint Noriega on 04-23-2025 Platelets (Bld) [#/Vol] 375 10*3/uL 150-450 [facility] Potassium measurement (mass/ volume)Ordered By: Shaun Noriega on 04-23-2025 Potassium (Unsp spec) [Mass/Vol] 3.7 mmol/L 3.3-5.1 [facility] RBC Auto (Bld) [#/Vol]Ordere d By: Shaun Noriega on 04-23-2025 RBC (Bld) [#/Vol] 4.50 10*6/uL 4.2-5.4 [facility] Serum creatinine measurement (mass/volume)Ordered By: Shaun Noriega on 04-23-2025 Creatinine [Mass/Vol] 1.21 mg/dL High 0.70-1.20 [facility] Serum glucose measurement (m ass/volume)Ordered By: Shaun Noriega on 04-23-2025 Glucose [Mass/Vol] 107 mg/dL High 70-99 [facility] Serum or plasma calcium be urement (mass/volume)Ordered By: Shaun Singh on 04-23-2025 Calcium [Mass/Vol] 9.6 mg/dL 7.6-11.0 [facility] Serum or plasma urea nitroge n measurement (mass/volume)Ordered By: Shaun Noriega on 04-23-2025 Urea nitrogen [Mass/Vol] 21 mg/dL High 4-19 [facility] Sodium levelOrdered By: Guero Noriega on 04-23-2025 Sodium [Moles/Vol] 140 mmol/L 133-145 [facility] Troponin T.cardiac [Mass/vol ume] in Serum or Plasma by High sensitivity methodOrdered By: Shaun Noriega on 04-23-2025 Troponin T.cardiac High sensitivity method [Mass/Vol] 11 ng/L <14 [facility] [facility] Comment on above: Delta: 10 on 5-1315 White blood cell (WBC) count Ordered By: Shaun Noriega on 04-23-2025 WBC (Bld) [#/Vol] 5.9 10*3/uL 4.4-11.0 [facility] Oncology Visit Reporton 05- Oncology Visit Report Normal [facility] Radiation Oncology Visiton 0 04-20-2025 Radiation Oncology Visit Normal [facility] Radiation Oncology Visit Normal [facility] Emergency Department Summary on 04-11-2025 Emergency Department Summary Normal [facility] Emergency Department Summary on 04-07-2025 Emergency Department Summary Normal [facility] 12 Lead EKGon 04-04-2025 12 Lead EKG Normal [facility] 12 Lead EKG Normal [facility] Absolute lymphocyte countOrd ered By: Margoth Villalpando on 04-04-2025 Lymphocytes Auto (Unsp spec) [#/Vol] 1.47 10*3/uL 0.83-4.51 [facility] Absolute neutrophil countOrd ered By: Margoth Villalpando on 04-04-2025 Neutrophils (Bld) [#/Vol] 4.4 10*3/uL 2.0-7.7 [facility] Anion gap in Serum or Plasma Ordered By: Margoth Villalpando on 04-04-2025 Anion gap [Moles/Vol] 12 mmol/L - [facility] Automated lymphocyte count a s percentage of total leukocytesOrdered By: Margoth Villalpando on 04-04-2025 Lymphocytes/100 WBC Auto (Unsp spec) 23.2 % - [facility] BUN/creatinine ratioOrdered By: Margoth Villalpando on 04-04-2025 Urea nitrogen/Creatinine [Mass ratio] 13.7 mg/mg 10- [facility] Basic Metabolic Profile (BMP )on 04-04-2025 BUN/CRE 13.7 RATIO Normal - [facility] Comment on above: Performed By: #### L 501.5200, L500.2500, L501.4021, L501.9520, L300.8000, L100.0100 ####[facility] [address] [place], [place], [id number] Calcium [Mass/Vol] 9.1 mg/dL Normal 7.6-11.0 [facility] Comment on above: Performed By: #### L 501.5200, L500.2500, L501.4021, L501.9520, L300.8000, L100.0100 ####[facility] [address] [place], [address] Chloride [Moles/Vol] 105 mmol/L Normal 98-108 [facility] Comment on above: Performed By: #### L 501.5200, L500.2500, L501.4021, L501.9520, L300.8000, L100.0100 ####[facility] [address] [place], [address] CO2 [Moles/Vol] 23.2 mmol/L Normal 21.0-32.0 [facility] Comment on above: Performed By: #### L 501.5200, L500.2500, L501.4021, L501.9520, L300.8000, L100.0100 ####[facility] [address] [place], [address] Creatinine [Mass/Vol] 1.22 mg/dL High 0.70-1.20 [facility] Comment on above: Performed By: #### L 501.5200, L500.2500, L501.4021, L501.9520, L300.8000, L100.0100 ####[facility] [address] [place], [address] ECRCL 36.60 ml/min Low 50-250 [facility] Comment on above: Performed By: #### L 501.5200, L500.2500, L501.4021, L501.9520, L300.8000, L100.0100 ####[facility] [address] [place], [address] GAP 12 Normal 5-15 [facility] Comment on above: Performed By: #### L 501.5200, L500.2500, L501.4021, L501.9520, L300.8000, L100.0100 ####[facility] [address] [place], [address] GFR/1.73 sq M.predicted among non-blacks MDRD (S/P/Bld) [Vol rate/Area] 45 mL/min/{1.73_m2} Low >60 [facility] Comment on above: Result Comment: mL/m in/1.73m2 CKD-EPI Creatinine Equation (2020) Performed By: #### L 501.5200, L500.2500, L501.4021, L501.9520, L300.8000, L100.0100 ####[facility] [address] [place], [address] Glucose [Mass/Vol] 130 mg/dL High 70-99 [facility] Comment on above: Performed By: #### L 501.5200, L500.2500, L501.4021, L501.9520, L300.8000, L100.0100 ####[facility] [address] [place], [address] Potassium [Moles/Vol] 3.7 mmol/L Normal 3.3-5.1 [facility] Comment on above: Performed By: #### L 501.5200, L500.2500, L501.4021, L501.9520, L300.8000, L100.0100 ####[facility] [address] [place], [address] Sodium [Moles/Vol] 140 mmol/L Normal 133-145 [facility] Comment on above: Performed By: #### L 501.5200, L500.2500, L501.4021, L501.9520, L300.8000, L100.0100 ####[facility] [address] [place], [address] Urea nitrogen [Mass/Vol] 17 mg/dL Normal 4-19 [facility] Comment on above: Performed By: #### L 501.5200, L500.2500, L501.4021, L501.9520, L300.8000, L100.0100 ####[facility] [address] [place], [address] Basophil percentageOrdered B y: Margoth Villalpando on 04-04-2025 Basophils/100 WBC (Bld) 0.8 % 0-1 [facility] CBC W/Diff, Automatedon -2024 Absolute Lymph 1.47 X10 3/uL Normal 0.83-4.51 [facility] Comment on above: Performed By: #### L 501.5200, L500.2500, L501.4021, L501.9520, L300.8000, L100.0100 ####[facility] [address] [place], [address] Absolute Neut 4.4 X10 3/uL Normal 2.0-7.7 [facility] Comment on above: Performed By: #### L 501.5200, L500.2500, L501.4021, L501.9520, L300.8000, L100.0100 ####[facility] [address] [place], [address] Basophils/100 WBC (Bld) 0.8 % Normal 0-1 [facility] Comment on above: Performed By: #### L 501.5200, L500.2500, L501.4021, L501.9520, L300.8000, L100.0100 ####[facility] [address] [place], [address] Eosinophils/100 WBC (Bld) 0.8 % Normal 0-5 [facility] Comment on above: Performed By: #### L 501.5200, L500.2500, L501.4021, L501.9520, L300.8000, L100.0100 ####[facility] [address] [place], [address] Erythrocyte distribution width (RBC) [Ratio] 16.4 % High 11.6-14.6 [facility] Comment on above: Performed By: #### L 501.5200, L500.2500, L501.4021, L501.9520, L300.8000, L100.0100 ####[facility] [address] [place], [address] Hematocrit (Bld) [Volume fraction] 34.8 % Low 37-47 [facility] Comment on above: Performed By: #### L 501.5200, L500.2500, L501.4021, L501.9520, L300.8000, L100.0100 ####[facility] [address] [place], [address] Hemoglobin (Bld) [Mass/Vol] 10.8 g/dL Low 12.0-15.0 [facility] Comment on above: Performed By: #### L 501.5200, L500.2500, L501.4021, L501.9520, L300.8000, L100.0100 ####[facility] [address] [place], [address] IG% 0.200 Normal 0.0-0.9 [facility] Comment on above: Result Comment: IG% - Immature Granulocytes (promyelocytes, myelocytes andmetamyelocytes) > 1% indicates that a LEFT SHIFT is Present. Performed By: #### L 501.5200, L500.2500, L501.4021, L501.9520, L300.8000, L100.0100 ####[facility] [address] [place], [address] Lymphocytes/100 WBC (Bld) 23.2 % Normal 19-41 [facility] Comment on above: Performed By: #### L 501.5200, L500.2500, L501.4021, L501.9520, L300.8000, L100.0100 ####[facility] [address] [place], [address] MCH (RBC) [Entitic mass] 25.1 pg Low 27.0-32.0 [facility] Comment on above: Performed By: #### L 501.5200, L500.2500, L501.4021, L501.9520, L300.8000, L100.0100 ####[facility] [address] [place], [address] MCHC (RBC) [Mass/Vol] 31.0 g/dL Low 32-36 [facility] Comment on above: Performed By: #### L 501.5200, L500.2500, L501.4021, L501.9520, L300.8000, L100.0100 ####[facility] [address] [place], [address] MCV (RBC) [Entitic vol] 80.9 fL Low 81-99 [facility] Comment on above: Performed By: #### L 501.5200, L500.2500, L501.4021, L501.9520, L300.8000, L100.0100 ####[facility] [address] [place], [address] Monocytes/100 WBC (Bld) 6.0 % Normal 0-10 [facility] Comment on above: Performed By: #### L 501.5200, L500.2500, L501.4021, L501.9520, L300.8000, L100.0100 ####[facility] [address] [place], [address] Neutrophils/100 WBC (Bld) 69.0 % Normal 47-70 [facility] Comment on above: Performed By: #### L 501.5200, L500.2500, L501.4021, L501.9520, L300.8000, L100.0100 ####[facility] [address] [place], [address] Nucleated RBC (Bld) [#/Vol] 0 10*3/uL Normal 0-5 [facility] Comment on above: Performed By: #### L 501.5200, L500.2500, L501.4021, L501.9520, L300.8000, L100.0100 ####[facility] [address] [place], [address] Platelet mean volume (Bld) [Entitic vol] 9.5 fL Normal 6.2-12.0 [facility] Comment on above: Performed By: #### L 501.5200, L500.2500, L501.4021, L501.9520, L300.8000, L100.0100 ####[facility] [address] [place], [address] Platelets (Bld) [#/Vol] 371 10*3/uL Normal 150-450 [facility] Comment on above: Performed By: #### L 501.5200, L500.2500, L501.4021, L501.9520, L300.8000, L100.0100 ####[facility] [address] [place], [address] RBC (Bld) [#/Vol] 4.30 10*6/uL Normal 4.2-5.4 [facility] Comment on above: Performed By: #### L 501.5200, L500.2500, L501.4021, L501.9520, L300.8000, L100.0100 ####[facility] [address] [place], [address] RDW SD 48.1 fl High 35.1-43.9 [facility] Comment on above: Performed By: #### L 501.5200, L500.2500, L501.4021, L501.9520, L300.8000, L100.0100 ####[facility] [address] [place], [address] WBC (Bld) [#/Vol] 6.3 10*3/uL Normal 4.4-11.0 [facility] Comment on above: Performed By: #### L 501.5200, L500.2500, L501.4021, L501.9520, L300.8000, L100.0100 ####[facility] [address] [place], [place], [id number] Carbon dioxide, total [Moles /volume] in Central venous bloodOrdered By: Margoth Villalpando on 04-04-2025 CO2 [Moles/Vol] 23.2 mmol/L 21.0-32.0 [facility] Chest PA and Lateralon 04-04 Chest PA and Lateral Normal [facility] Chloride assayOrdered By: Fransisco Villalpando on 04-04-2025 Chloride [Moles/Vol] 105 mmol/L 98-108 [facility] D-Dimer Quantitative (DVT/PE )on 04-04-2025 D-DIMER QUANT 0.53 FEU/ug/m Invalid Interpretation Code 0.27-0.49 [facility] Comment on above: Result Comment: D-Di kiran ELEVATED (>0.49): Additional studies and clinicalassessments are indicated to conclude diagnosis of:Deep Vein Thrombosis (DVT) or Pulmonary Embolism (PE)CRITICAL VALUE CALLED TO QUNHICTQBZXGUDY02/05/25 Amy2 Abby Littlejohn.RESULTS READ BACK BY SAME. Performed By: #### L 501.5200, L500.2500, L501.4021, L501.9520, L300.8000, L100.0100 ####[facility] [address] [place], [place], [id number] Emergency Department Summary on 04-04-2025 Emergency Department Summary Normal [facility] Eosinophil percentageOrdered By: Margoth Villalpando on 04-04-2025 Eosinophils/100 WBC (Bld) 0.8 % 0-5 [facility] Erythrocyte distribution wid th ratioOrdered By: Margoth Villalpando on 04-04-2025 Erythrocyte distribution width (RBC) [Ratio] 16.4 % High 11.6-14.6 [facility] Erythrocyte distribution wid th standard deviationOrdered By: Margoth Villalpando on 04-04-2025 Erythrocyte distribution width (RBC) [Ratio] 48.1 fl High 35.1-43.9 [facility] Glomerular filtration rate ( GFR) estimation/1.73 sq m using serum, plasma, or whole bOrdered By: Margoth Villalpando on 04-04-2025 GFR/1.73 sq M.predicted among non-blacks MDRD (S/P/Bld) [Vol rate/Area] 45 mL/min/{1.73_m2} Low >60 [facility] Comment on above: mL/min/1.73m2 CKD-EP I Creatinine Equation (2020) Hematocrit Auto (Bld) [Volum e fraction]Ordered By: Margoth Villalpando on 04-04-2025 Hematocrit (Bld) [Volume fraction] 34.8 % Low 37-47 [facility] Hemoglobin measurementOrdere d By: Margoth Villalpando on 04-04-2025 Hemoglobin (Bld) [Mass/Vol] 10.8 g/dL Low 12.0-15.0 [facility] Immature granulocytes/100 WB C Auto (Bld)Ordered By: Margoth Villalpando on 04-04-2025 Immature granulocytes/100 WBC (Bld) 0.200 % 0.0-0.9 [facility] Comment on above: IG% - Immature Granu locytes (promyelocytes, myelocytes and metamyelocytes) > 1% indicates that a LEFT SHIFT is Present. L499.0042on 04-04-2025 Trop T High Sen 11 ng/L Normal <=14 [facility] Comment on above: Performed By: #### L 499.0042 ####[facility] [address] [place], [place], [address] L499.0043on 04-04-2025 Trop T High Sen Normal <=14 [facility] Comment on above: Result Comment: Canc elled via OM: Order cancelled - Patient discharged Performed By: #### L 499.0043 ####[facility] [address] [place], [place], [address] L501.4021on 04-04-2025 Trop T High Sen 10 ng/L Normal <=14 [facility] Comment on above: Performed By: #### L 501.5200, L500.2500, L501.4021, L501.9520, L300.8000, L100.0100 ####[facility] [address] [place], [address] MCV (mean corpuscular volume ) determinationOrdered By: Margoth Villalpando on 04-04-2025 MCV (RBC) [Entitic vol] 80.9 fL Low 81-99 [facility] Magnesiumon 04-04-2025 Magnesium [Mass/Vol] 2.1 mg/dL Normal 1.5-2.2 [facility] Comment on above: Performed By: #### L 501.5200, L500.2500, L501.4021, L501.9520, L300.8000, L100.0100 ####[facility] [address] [place], [place], [id number] Magnesium measurement (mass/ volume)Ordered By: Margoth Villalpando on 04-04-2025 Magnesium (Unsp spec) [Mass/Vol] 2.1 mg/dL 1.5-2.2 [facility] Mean corpuscular hemoglobin (MCH) determinationOrdered By: Margoth Villalpando on 04-04-2025 MCH (RBC) [Entitic mass] 25.1 pg Low 27.0-32.0 [facility] Mean corpuscular hemoglobin concentration (MCHC) determinationOrdered By: Margoth Villalpando on 04-04-2025 MCHC (RBC) [Mass/Vol] 31.0 g/dL Low 32-36 [facility] Mean platelet volume determi nationOrdered By: Margoth Villalpando on 04-04-2025 Platelet mean volume (Bld) [Entitic vol] 9.5 fL 6.2-12.0 [facility] Monocyte percentageOrdered B y: Margoth Villalpando on 04-04-2025 Monocytes/100 WBC (Bld) 6.0 % 0-10 [facility] Neutrophil percentageOrdered By: Margoth Villalpando on 04-04-2025 Neutrophils/100 WBC (Bld) 69.0 % 47-70 [facility] Nucleated red blood cell per centageOrdered By: Margoth Villalpando on 04-04-2025 Nucleated RBC/100 WBC (Bld) [Ratio] 0 % 0-5 [facility] [employer] Visit Reporton 04-04-2025 Maintenance [employer] Visit Report Normal [facility] Platelet countOrdered By: Fransisco Villalpando on 04-04-2025 Platelets (Bld) [#/Vol] 371 10*3/uL 150-450 [facility] Potassium measurement (mass/ volume)Ordered By: Margoth Villalpando on 04-04-2025 Potassium (Unsp spec) [Mass/Vol] 3.7 mmol/L 3.3-5.1 [facility] RBC Auto (Bld) [#/Vol]Ordere d By: Margoth Villalpando on 04-04-2025 RBC (Bld) [#/Vol] 4.30 10*6/uL 4.2-5.4 [facility] Serum creatinine measurement (mass/volume)Ordered By: Margoth Villalpando on 04-04-2025 Creatinine [Mass/Vol] 1.22 mg/dL High 0.70-1.20 [facility] Serum glucose measurement (m ass/volume)Ordered By: Margoth Villalpando on 04-04-2025 Glucose [Mass/Vol] 130 mg/dL High 70-99 [facility] Serum or plasma calcium be urement (mass/volume)Ordered By: Margoth Villalpando on 04-04-2025 Calcium [Mass/Vol] 9.1 mg/dL 7.6-11.0 [facility] Serum or plasma urea nitroge n measurement (mass/volume)Ordered By: Margoth Villalpando on 04-04-2025 Urea nitrogen [Mass/Vol] 17 mg/dL 4-19 [facility] Sodium levelOrdered By: Juan Alberto Villalpando on 04-04-2025 Sodium [Moles/Vol] 140 mmol/L 133-145 [facility] TSH DL <= 0.005 mIU/L QnOrde red By: Margoth Villalpando on 04-04-2025 TSH Qn 3.490 uIU/mL 0.300-4.200 [facility] Thyroid Stim Hormone (TSH)on 04-04-2025 TSH 3.490 uIU/mL Normal 0.300-4.200 [facility] Comment on above: Performed By: #### L 501.5200, L500.2500, L501.4021, L501.9520, L300.8000, L100.0100 ####[facility] [address] [place], [address] Troponin T.cardiac [Mass/vol ume] in Serum or Plasma by High sensitivity methodOrdered By: Margoth Villalpando on 04-04-2025 Troponin T.cardiac High sensitivity method [Mass/Vol] 11 ng/L <14 [facility] Troponin T.cardiac High sensitivity method [Mass/Vol] 10 ng/L <14 [facility] White blood cell (WBC) count Ordered By: Margoth Villalpando on 04-04-2025 WBC (Bld) [#/Vol] 6.3 10*3/uL 4.4-11.0 [facility] Radiation Oncology Visiton 0 03-25-2025 Radiation Oncology Visit Normal [facility] Absolute lymphocyte countOrd ered By: Ximena Stanley on 03-16-2025 Lymphocytes Auto (Unsp spec) [#/Vol] 1.92 10*3/uL 0.83-4.51 [facility] Absolute neutrophil countOrd ered By: Ximena Stanley on 03-16-2025 Neutrophils (Bld) [#/Vol] 3.5 10*3/uL 2.0-7.7 [facility] Anion gap in Serum or Plasma Ordered By: Ximena Stanley on 03-16-2025 Anion gap [Moles/Vol] 9 mmol/L 5-15 [facility] Automated lymphocyte count a s percentage of total leukocytesOrdered By: Ximena Stanley on 03-16-2025 Lymphocytes/100 WBC Auto (Unsp spec) 31.4 % - [facility] BUN/creatinine ratioOrdered By: Ximena Stanley on 03-16-2025 Urea nitrogen/Creatinine [Mass ratio] 11.8 mg/mg 10-20 [facility] Basophil percentageOrdered B y: Ximena Stanley on 03-16-2025 Basophils/100 WBC (Bld) 0.8 % 0-1 [facility] Bilirubin, totalOrdered By: Ximena Stanley on 03-16-2025 Bilirubin [Mass/Vol] 0.36 mg/dL 0.00-1.30 [facility] CBC W/Diff, Automatedon 03-01 Absolute Lymph 1.92 X10 3/uL Normal 0.83-4.51 [facility] Comment on above: Performed By: #### L 100.0100, L500.4050 ####[facility] [address] [place], [address] Absolute Neut 3.5 X10 3/uL Normal 2.0-7.7 [facility] Comment on above: Performed By: #### L 100.0100, L500.4050 ####[facility] [address] [place], [address] Basophils/100 WBC (Bld) 0.8 % Normal 0-1 [facility] Comment on above: Performed By: #### L 100.0100, L500.4050 ####[facility] [address] [place], [address] Eosinophils/100 WBC (Bld) 1.3 % Normal 0-5 [facility] Comment on above: Performed By: #### L 100.0100, L500.4050 ####[facility] [address] [place], [address] Erythrocyte distribution width (RBC) [Ratio] 18.1 % High 11.6-14.6 [facility] Comment on above: Performed By: #### L 100.0100, L500.4050 ####[facility] [address] [place], [address] Hematocrit (Bld) [Volume fraction] 35.0 % Low 37-47 [facility] Comment on above: Performed By: #### L 100.0100, L500.4050 ####[facility] [address] [place], [address] Hemoglobin (Bld) [Mass/Vol] 11.0 g/dL Low 12.0-15.0 [facility] Comment on above: Performed By: #### L 100.0100, L500.4050 ####[facility] [address] [place], [address] IG% 0.200 Normal 0.0-0.9 [facility] Comment on above: Result Comment: IG% - Immature Granulocytes (promyelocytes, myelocytes andmetamyelocytes) > 1% indicates that a LEFT SHIFT is Present. Performed By: #### L 100.0100, L500.4050 ####[facility] [address] [place], [address] Lymphocytes/100 WBC (Bld) 31.4 % Normal 19-41 [facility] Comment on above: Performed By: #### L 100.0100, L500.4050 ####[facility] [address] [place], [address] MCH (RBC) [Entitic mass] 25.5 pg Low 27.0-32.0 [facility] Comment on above: Performed By: #### L 100.0100, L500.4050 ####[facility] [address] [place], [address] MCHC (RBC) [Mass/Vol] 31.4 g/dL Low 32-36 [facility] Comment on above: Performed By: #### L 100.0100, L500.4050 ####[facility] [address] [place], [address] MCV (RBC) [Entitic vol] 81.0 fL Normal 81-99 [facility] Comment on above: Performed By: #### L 100.0100, L500.4050 ####[facility] [address] [place], [address] Monocytes/100 WBC (Bld) 9.5 % Normal 0-10 [facility] Comment on above: Performed By: #### L 100.0100, L500.4050 ####[facility] [address] [place], [address] Neutrophils/100 WBC (Bld) 56.8 % Normal 47-70 [facility] Comment on above: Performed By: #### L 100.0100, L500.4050 ####[facility] [address] [place], [address] Nucleated RBC (Bld) [#/Vol] 0 10*3/uL Normal 0-5 [facility] Comment on above: Performed By: #### L 100.0100, L500.4050 ####[facility] [address] [place], [address] Platelet mean volume (Bld) [Entitic vol] 8.5 fL Normal 6.2-12.0 [facility] Comment on above: Performed By: #### L 100.0100, L500.4050 ####[facility] [address] [place], [address] Platelets (Bld) [#/Vol] 428 10*3/uL Normal 150-450 [facility] Comment on above: Performed By: #### L 100.0100, L500.4050 ####[facility] [address] [place], [address] RBC (Bld) [#/Vol] 4.32 10*6/uL Normal 4.2-5.4 [facility] Comment on above: Performed By: #### L 100.0100, L500.4050 ####[facility] [address] [place], [address] RDW SD 54.1 fl High 35.1-43.9 [facility] Comment on above: Performed By: #### L 100.0100, L500.4050 ####[facility] [address] [place], [address] WBC (Bld) [#/Vol] 6.1 10*3/uL Normal 4.4-11.0 [facility] Comment on above: Performed By: #### L 100.0100, L500.4050 ####[facility] [address] [place], [address] Carbon dioxide, total [Moles /volume] in Central venous bloodOrdered By: Ximena Stanley on 03-16-2025 CO2 [Moles/Vol] 25.4 mmol/L 21.0-32.0 [facility] Chloride assayOrdered By: Pina Stanley on 03-16-2025 Chloride [Moles/Vol] 105 mmol/L 98-108 [facility] Comprehensive Metabolic Prof ilon 03-16-2025 Albumin [Mass/Vol] 4.1 g/dL Normal 3.4-4.8 [facility] Comment on above: Performed By: #### L 100.0100, L500.4050 ####[facility] [address] [place], [address] Albumin/Globulin [Mass ratio] 1.4 {ratio} Normal 0.9-2.4 [facility] Comment on above: Performed By: #### L 100.0100, L500.4050 ####[facility] [address] [place], [address] ALK PHOS 31 U/L Low 35-104 [facility] Comment on above: Performed By: #### L 100.0100, L500.4050 ####[facility] [address] [place], [address] ALT [Catalytic activity/Vol] 15 U/L Normal <=34 [facility] Comment on above: Performed By: #### L 100.0100, L500.4050 ####[facility] [address] [place], [address] AST [Catalytic activity/Vol] 20 U/L Normal <=31 [facility] Comment on above: Performed By: #### L 100.0100, L500.4050 ####[facility] [address] [place], [address] Bilirubin [Mass/Vol] 0.36 mg/dL Normal 0.00-1.30 [facility] Comment on above: Performed By: #### L 100.0100, L500.4050 ####[facility] [address] [place], [address] BUN/CRE 11.8 RATIO Normal 10-20 [facility] Comment on above: Performed By: #### L 100.0100, L500.4050 ####[facility] [address] [place], [address] Calcium [Mass/Vol] 9.3 mg/dL Normal 7.6-11.0 [facility] Comment on above: Performed By: #### L 100.0100, L500.4050 ####[facility] [address] [place], [address] Chloride [Moles/Vol] 105 mmol/L Normal 98-108 [facility] Comment on above: Performed By: #### L 100.0100, L500.4050 ####[facility] [address] [place], [address] CO2 [Moles/Vol] 25.4 mmol/L Normal 21.0-32.0 [facility] Comment on above: Performed By: #### L 100.0100, L500.4050 ####[facility] [address] [place], [address] Creatinine [Mass/Vol] 1.30 mg/dL High 0.70-1.20 [facility] Comment on above: Performed By: #### L 100.0100, L500.4050 ####[facility] [address] [place], [address] GAP 9 Normal 5-15 [facility] Comment on above: Performed By: #### L 100.0100, L500.4050 ####[facility] [address] [place], [address] GFR/1.73 sq M.predicted among non-blacks MDRD (S/P/Bld) [Vol rate/Area] 42 mL/min/{1.73_m2} Low >60 [facility] Comment on above: Result Comment: mL/m in/1.73m2 CKD-EPI Creatinine Equation (2020) Performed By: #### L 100.0100, L500.4050 ####[facility] [address] [place], [address] Globulin (S) [Mass/Vol] 2.9 g/dL Normal 2.2-4.2 [facility] Comment on above: Performed By: #### L 100.0100, L500.4050 ####[facility] [address] [place], [address] Glucose [Mass/Vol] 117 mg/dL High 70-99 [facility] Comment on above: Performed By: #### L 100.0100, L500.4050 ####[facility] [address] [place], [address] Potassium [Moles/Vol] 4.4 mmol/L Normal 3.3-5.1 [facility] Comment on above: Performed By: #### L 100.0100, L500.4050 ####[facility] [address] [place], [address] Sodium [Moles/Vol] 140 mmol/L Normal 133-145 [facility] Comment on above: Performed By: #### L 100.0100, L500.4050 ####[facility] [address] [place], [address] T PROT 7.0 g/dL Normal 5.9-8.4 [facility] Comment on above: Performed By: #### L 100.0100, L500.4050 ####[facility] [address] [place], [address] Urea nitrogen [Mass/Vol] 15 mg/dL Normal 4-19 [facility] Comment on above: Performed By: #### L 100.0100, L500.4050 ####[facility] [address] [place], [address] Eosinophil percentageOrdered By: Ximena Stanley on 03-16-2025 Eosinophils/100 WBC (Bld) 1.3 % 0-5 [facility] Erythrocyte distribution wid th ratioOrdered By: Ximena Stanley on 03-16-2025 Erythrocyte distribution width (RBC) [Ratio] 18.1 % High 11.6-14.6 [facility] Erythrocyte distribution wid th standard deviationOrdered By: [facility] Stanley on 03-16-2025 Erythrocyte distribution width (RBC) [Ratio] 54.1 fl High 35.1-43.9 [facility] Glomerular filtration rate ( GFR) estimation/1.73 sq m using serum, plasma, or whole bOrdered By: Ximena Stanley on 03-16-2025 GFR/1.73 sq M.predicted among non-blacks MDRD (S/P/Bld) [Vol rate/Area] 42 mL/min/{1.73_m2} Low >60 [facility] Comment on above: mL/min/1.73m2 CKD-EP I Creatinine Equation (2020) Hematocrit Auto (Bld) [Volum e fraction]Ordered By: Ximena Stanley on 03-16-2025 Hematocrit (Bld) [Volume fraction] 35.0 % Low 37-47 [facility] Hemoglobin measurementOrdere d By: Ximena Stanley on 03-16-2025 Hemoglobin (Bld) [Mass/Vol] 11.0 g/dL Low 12.0-15.0 [facility] Immature granulocytes/100 WB C Auto (Bld)Ordered By: Ximena Stanley on 03-16-2025 Immature granulocytes/100 WBC (Bld) 0.200 % 0.0-0.9 [facility] Comment on above: IG% - Immature Granu locytes (promyelocytes, myelocytes and metamyelocytes) > 1% indicates that a LEFT SHIFT is Present. Laboratory - Chemistry and C hemistry - challengeOrdered By: Ximena Stanley on 03-16-2025 AST [Catalytic activity/Vol] 20 U/L <32 [facility] MCV (mean corpuscular volume ) determinationOrdered By: Ximena Stanley on 03-16-2025 MCV (RBC) [Entitic vol] 81.0 fL 81-99 [facility] Mean corpuscular hemoglobin (MCH) determinationOrdered By: Ximena Stanley on 03-16-2025 MCH (RBC) [Entitic mass] 25.5 pg Low 27.0-32.0 [facility] Mean corpuscular hemoglobin concentration (MCHC) determinationOrdered By: Ximena Stanley on 03-16-2025 MCHC (RBC) [Mass/Vol] 31.4 g/dL Low 32-36 [facility] Mean platelet volume determi nationOrdered By: Ximena Stanley on 03-16-2025 Platelet mean volume (Bld) [Entitic vol] 8.5 fL 6.2-12.0 [facility] Monocyte percentageOrdered B y: Ximena Stanley on 03-16-2025 Monocytes/100 WBC (Bld) 9.5 % 0-10 [facility] Neutrophil percentageOrdered By: Ximena Stanley on 03-16-2025 Neutrophils/100 WBC (Bld) 56.8 % 47-70 [facility] Nucleated red blood cell per centageOrdered By: Ximena Stanley on 03-16-2025 Nucleated RBC/100 WBC (Bld) [Ratio] 0 % 0-5 [facility] Oncology Visit Reporton 03-01 Oncology Visit Report Normal [facility] Platelet countOrdered By: Pina Stanley on 03-16-2025 Platelets (Bld) [#/Vol] 428 10*3/uL 150-450 [facility] Potassium measurement (mass/ volume)Ordered By: Ximena Stanley on 03-16-2025 Potassium (Unsp spec) [Mass/Vol] 4.4 mmol/L 3.3-5.1 [facility] RBC Auto (Bld) [#/Vol]Ordere d By: Ximena Stanley on 03-16-2025 RBC (Bld) [#/Vol] 4.32 10*6/uL 4.2-5.4 [facility] Serum creatinine measurement (mass/volume)Ordered By: Ximena Stanley on 03-16-2025 Creatinine [Mass/Vol] 1.30 mg/dL High 0.70-1.20 [facility] Serum globulin measurementOr dered By: Ximena Stanley on 03-16-2025 Globulin (S) [Mass/Vol] 2.9 g/dL 2.2-4.2 [facility] Serum glucose measurement (m ass/volume)Ordered By: Ximena Stanley on 03-16-2025 Glucose [Mass/Vol] 117 mg/dL High 70-99 [facility] Serum or plasma alanine amezcua otransferase (ALT) measurementOrdered By: Ximena Stanley on 03-16-2025 ALT [Catalytic activity/Vol] 15 U/L <35 [facility] Serum or plasma albumin be urement (mass/volume)Ordered By: Ximena Stanley on 03-16-2025 Albumin [Mass/Vol] 4.1 g/dL 3.4-4.8 [facility] Serum or plasma albumin/glob ulin mass ratioOrdered By: Ximena Stanley on 03-16-2025 Albumin/Globulin [Mass ratio] 1.4 {ratio} 0.9-2.4 [facility] Serum or plasma alkaline leonardo sphatase measurementOrdered By: Ximena Stanley on 03-16-2025 ALP [Catalytic activity/Vol] 31 U/L Low 35-104 [facility] Serum or plasma calcium be urement (mass/volume)Ordered By: Ximena Stanley on 03-16-2025 Calcium [Mass/Vol] 9.3 mg/dL 7.6-11.0 [facility] Serum or plasma urea nitroge n measurement (mass/volume)Ordered By: Ximena Johnsonkristina on 03-16-2025 Urea nitrogen [Mass/Vol] 15 mg/dL 4-19 [facility] Sodium levelOrdered By: Marc Stanley on 03-16-2025 Sodium [Moles/Vol] 140 mmol/L 133-145 [facility] Total proteinOrdered By: Saúl Johnsonkristina on 03-16-2025 Protein [Mass/Vol] 7.0 g/dL 5.9-8.4 [facility] White blood cell (WBC) count Ordered By: Ximena Lizeth on 03-16-2025 WBC (Bld) [#/Vol] 6.1 10*3/uL 4.4-11.0 [facility] SURG PATH REQUESTon 03-09-20 Case Report Normal [facility] Comment on above: Result Comment: Surg ical Pathology Report Case: [id number] Authorizing Provider: Breanna Thomson MD Collected: 03/09/2025 08:34 AM [facility]ing [facility] Received: 03/09/2025 08:18 AM [place] Pathologist: Kartik Franco MD, PhD Specimen: SURG PATH, Outside USS on C11, HER2 FISH; Left Breast Performed By: #### S URGP #### [facility] (DEFAULT) [address] [place] [address] Clinical History Normal [facility] Comment on above: Result Comment: Rece ived is a request from Breanna Thomson MD at [facility] for molecular testing received from [facility], [address] [place] [address], [place] [address]. Pre-Op Diagnosis: Breast cancer left breast. Performed By: #### S URGP #### [facility] (DEFAULT) [address] [place] [address] Gross Description Normal [facility] Comment on above: Result Comment: The following material(s) are received from [facility], [facility] [place] [address] with an identifying Surgical Pathology Report: 1 H&E slide(s), 1 non-H&E slide(s) which is the HER2 IHC slide, and 2 unstained slides(s) (C11, C11), labeled [id number] which is submitted to the [facility] for FISH testing: HER2, FISH. Materials will be returned upon completion. Grosser for this case was: Rita Farias Performed By: #### S URGP #### [facility] (DEFAULT) [address] [place] [address] Intraoperative Diagnosis [facility] Comment on above: Result Comment: For Immediate Release to [facility] Performed By: #### S URGP #### [facility] (DEFAULT) [address] [address] Microscopic Description Tissue was assessed by a molecular pathologist to select areas for analysis and to correlate immunostaining with histology. No morphologic assessment was requested. [facility] Comment on above: Performed By: #### S URGP #### [facility] (DEFAULT) [address] [place] [address] Pathologic Diagnosis [facility] Comment on above: Result Comment: Outs rhonda Slides: [id number] (02/22/25) C. Left breast, left partial mastectomy: HER2 FISH: Negative (see FISH report) at 1313 EDT Performed By: #### S URGP #### [facility] (DEFAULT) [address] [address] Professional Interpretation Performed at: [facility] Comment on above: Result Comment: [facility] [address] [facility] [place] [address] [place], [place] [address] Performed By: #### S URGP #### [facility] (DEFAULT) [address] [address] Surgery Visit Reporton 03-09 Surgery Visit Report Normal [facility] Discharge Instructionon 01-30 Discharge Instruction Normal [facility] Immunohistochemical Stainson 02-22-2025 Immunohistochemical Stains Normal [facility] Comment on above: Performed By: #### P IMND ####[facility] [address] [place], [address] Lymph Node Injection Onlyon 02-22-2025 Lymph Node Injection Only Normal [facility] MR/POSTOP.ANEon 02-22-2025 MR/POSTOP.ANE Normal [facility] MR/[id number] 02-22-2025 MR/POSTOPAN2 Normal [facility] Operative Reporton Operative Report Normal [facility] MR/PAT.ANEon 02-21-2025 MR/PAT.ANE Normal [facility] Electrocardiogram reportOrde red By: Luis Carlos Zuluaga on 02-19-2025 EKG study [facility] [address] [place] [address] 12 Lead EKG 02/18/25 1156 MR#: [id number] Acct: [id number] Name: ALISTAIR ARECHIGA Rep #:[id number] : 1945 79 From: Luis Carlos Zuluaga MD Attending Dr: Dr. Branden Lance MD Status: PRE SDC Ordering Dr: Cal Cassidy MD Date: [place]: [facility] [place] Sex: F C Admitted: Test Reason : PRE OP Blood Pressure : */* mmHG Vent. Rate : 67 BPM Atrial Rate : 67 BPM P-R Int : 154 ms QRS Dur : 84 ms QT Int : 398 ms P-R-T Axes : 45 7 79 degrees QTcB Int : 420 ms Normal sinus rhythm Nonspecific T wave abnormality Abnormal ECG Confirmed by LUIS CARLOS ZULUAGA MD ([id number]), health editor BRENDA CAMACHO ([id number]) on 02/19/2025 7:11:17 AM Referred By: Branden Lance Confirmed By: LUIS CARLOS ZULUAGA MD 02/19/25 0711 Date _ Luis Carlos Zuluaga MD CC: NONA Chaudhary; Dr. Branden Lance MD; Dr. Cal Cassidy MD ~ Signed [facility] Work Phone: 12 Lead EKGon 02-18-2025 12 Lead EKG Normal [facility] Surgery Visit Reporton 02-11 Surgery Visit Report Normal [facility] SURG PATH REQUESTon 02-08-20 Case Report Normal [facility] Comment on above: Result Comment: Surg ical Pathology Report Case: [id number] Authorizing Provider: Breanna Thomson MD Collected: 02/07/2025 10:05 AM Ordering Location: [facility] Received: 02/07/2025 09:54 AM [place] Pathologist: Kartik Franco MD, PhD Specimen: SURG PATH, Outside block [id number] (5); Left breast; HER2 FISH Performed By: #### S URGP #### [facility] (DEFAULT) [address] [place] [address] Clinical History Normal [facility] Comment on above: Result Comment: Rece ived is a request from Breanna Thomson MD at [facility],[address] [place] [address] for molecular testing on a paraffin block received from the same facility. Performed By: #### S URGP #### [facility] (DEFAULT) [address] [place] [address] Gross Description Normal [facility] Comment on above: Result Comment: The following material(s) are received from [facility], [address] [place] [address] with an identifying Surgical Pathology Report:1 paraffin block marked [id number] (5), which is submitted to the [facility] histology/IHC laboratory for recutting and additional staining for molecular testing: HER2, FISH. Materials will be returned upon completion. Grosser for this case was: Rita Farias Performed By: #### S URGP #### [facility] (DEFAULT) [address] [address] Intraoperative Diagnosis Normal [facility] Comment on above: Result Comment: For Immediate Release to Patient's [facility] Yes Performed By: #### S URGP #### [facility] (DEFAULT) [address] [place] [address] Microscopic Description [facility] Comment on above: Result Comment: Tiss ue was assessed by a molecular pathologist to select areas for analysis and to correlate immunostaining with histology. No morphologic assessment was requested. Performed By: #### S URGP #### [facility] (DEFAULT) [address] [place] [address] Pathologic Diagnosis [facility] Comment on above: Result Comment: Outs rhonda Block: [id number] (01/28/25) A. Left breast, mass, excisional biopsy: HER2 FISH: Negative for amplification (see FISH report) at 0943 EDT Performed By: #### S URGP #### [facility] (DEFAULT) [address] [place] [address] Professional Interpretation Performed at: [facility] Comment on above: Result Comment: Prof essional interpretation performed remotely at a secondary location, address on file. Performed By: #### S URGP #### [facility] (DEFAULT) [address] [place] [address] Discharge Instructionon 01-02 Discharge Instruction Normal [facility] MR/POSTOP.ANEon 01-28-2025 MR/POSTOP.ANE Normal [facility] MR/[id number] 01-28-2025 MR/POSTOPAN2 Normal [facility] Operative Reporton Operative Report Normal [facility] Surgery Specimen Level Ivone 01-28-2025 Surgery Specimen Level IV [facility] Comment on above: Performed By: #### P SUIV ####[facility] [address] [place], [place], [id number] MR/PAT.ANEon 01-20-2025 MR/PAT.ANE Normal [facility] Surgery Visit Reporton 01-18 Surgery Visit Report Normal [facility] Breast Limited Unilateralon 01-12-2025 Breast Limited Unilateral [facility] SCRN MAMM (CAD)W/MARIO BILATo n 01-10-2025 SCRN MAMM (CAD)W/MARIO BILAT Normal [facility] Maintenance [employer] Office Visit Reporton 01-03-2025 Maintenance [employer] Office Visit Report Normal [facility] Maintenance [employer] Office Visit Reporton 10-18-2024 Maintenance [employer] Office Visit Report Normal [facility] Absolute lymphocyte countOrd ered By: Rayshawn Chaudhary on 10-10-2023 Lymphocytes Auto (Unsp spec) [#/Vol] 1.59 10*3/uL 0.83-4.51 [facility] Basophil percentageOrdered B y: Rayshawn Chaudhary on 10-10-2023 Amylase [Catalytic activity/Vol] 40 U/L 25-115 [facility] Basophils/100 WBC (Bld) 1.8 % 0-1 [facility] Bilirubin [Mass/Vol] 0.40 mg/dL 0.20-1.00 [facility] Comment on above: For patients on eltr ombopag therapy, use of Dimension Coplay TBIL is not recommended. Chloride [Moles/Vol] 111 mmol/L 98-107 [facility] Cholesterol [Mass/Vol] 147 mg/dL <200 [facility] Comment on above: <200 mg/dL Desirable 200-240 mg/dL Borderline >240 mg/dL High Risk Eosinophils/100 WBC (Bld) 3.1 % 0-5 [facility] Glucose [Mass/Vol] 97 mg/dL 74-106 [facility] Neutrophils (Bld) [#/Vol] 2.3 10*3/uL 2.0-7.7 [facility] Neutrophils/100 WBC (Bld) 51.1 % 47-70 [facility] Potassium [Moles/Vol] 4.5 mmol/L 3.5-5.1 [facility] Protein [Mass/Vol] 7.3 g/dL 6.4-8.2 [facility] Sodium [Moles/Vol] 139 mmol/L 136-145 [facility] Triglyceride [Mass/Vol] 139 mg/dL <199 [facility] Comment on above: The drugs N-Acetylcy steine and Metamizole may falsely depress this assay.Serum Triglycerides Reference Interval Normal <150 mg/dL Borderline high 150 - 199 mg/dL High 200 - 499 mg/dL Very High > or = 500 mg/dL WBC (Bld) [#/Vol] 4.5 10*3/uL 4.4-11.0 [facility] Bilirubin Test strip Ql (U)O rdered By: Rayshawn Chaudhary on 10-10-2023 Bilirubin Ql (U) Negative Negative [facility] Blood erythrocytes count (nu mber/volume)Ordered By: Rayshawn Chaudhary on 10-10-2023 RBC (Bld) [#/Vol] 4.58 10*6/uL 4.2-5.4 [facility] Blood hemoglobin measurement (mass/volume)Ordered By: Rayshawn Chaudhary on 10-10-2023 Hemoglobin (Bld) [Mass/Vol] 12.6 g/dL 12.0-15.0 [facility] Blood lymphocytes/100 leukoc ytesOrdered By: Rayshawn Chaudhary on 10-10-2023 Lymphocytes/100 WBC (Bld) 35.0 % 19-41 [facility] Blood monocytes/100 leukocyt esOrdered By: Rayshawn Chaudhary on 10-10-2023 Monocytes/100 WBC (Bld) 8.8 % 0-10 [facility] Blood platelet mean volumeOr dered By: Rayshawn Chaudhary on 10-10-2023 Platelet mean volume (Bld) [Entitic vol] 9.2 fL 6.2-12.0 [facility] Determination of erythrocyte mean corpuscular volume (MCV)Ordered By: Rayshawn Chaudhary on 10-10-2023 MCV (RBC) [Entitic vol] 87.3 fL 81-99 [facility] Hematocrit Auto (Bld) [Volum e fraction]Ordered By: Rayshawn Chaudhary on 10-10-2023 Hematocrit (Bld) [Volume fraction] 40.0 % 37-47 [facility] Ketones Test strip Ql (U)Ord ered By: Rayshawn Chaudhary on 10-10-2023 Ketones Ql (U) Negative Negative [facility] Laboratory - Chemistry and C hemistry - challengeOrdered By: Rayshawn Chaudhary on 10-10-2023 ALP [Catalytic activity/Vol] 33 U/L 45-117 [facility] ALT [Catalytic activity/Vol] 24 U/L 13-56 [facility] CO2 [Moles/Vol] 26.0 mmol/L 21.0-32.0 [facility] Globulin (S) [Mass/Vol] 3.6 g/dL 2.2-4.2 [facility] Lipase [Catalytic activity/Vol] 61 U/L 13-75 [facility] Comment on above: Please note:LIPASE r evised reference range effective 23. New Lipase methodology. Expected to produce lower values than the previous assay method. NEW Reference Range: 13 - 75 U/L Urea nitrogen/Creatinine [Mass ratio] 18.0 mg/mg 10-20 [facility] Laboratory - Hematology and Cell countsOrdered By: Rayshawn Chaudhary on 10-10-2023 Erythrocyte distribution width (RBC) [Entitic vol] 43.2 fL 35.1-43.9 [facility] Erythrocyte distribution width (RBC) [Ratio] 13.5 % 11.6-14.6 [facility] Immature granulocytes/100 WBC (Bld) 0.200 % 0.0-0.9 [facility] Comment on above: IG% - Immature Granu locytes (promyelocytes, myelocytes and metamyelocytes) > 1% indicates that a LEFT SHIFT is Present. MCH (RBC) [Entitic mass] 27.5 pg 27.0-32.0 [facility] Nucleated RBC/100 WBC (Bld) [Ratio] 0 % 0-5 [facility] MCHC Auto (RBC) [Mass/Vol]Or dered By: Rayshawn Chaudhary on 10-10-2023 MCHC (RBC) [Mass/Vol] 31.5 g/dL 32-36 [facility] Nitrite Test strip Ql (U)Ord ered By: Rayshawn Chaudhary on 10-10-2023 Nitrite Ql (U) Negative Negative [facility] No Panel InformationOrdered By: Rayshawn Chaudhary on 10-10-2023 Estimated GFR (MDRD) Amer 52 mL/min >60 [facility] Comment on above: GFR Calc Estimated GFR (MDRD) Non-Af Amer 43 mL/min >60 [facility] Comment on above: Non- GFR Calc Thyroid Stimulating Hormone (TSH) 4.52 uIU/mL 0.358-3.74 [facility] Platelets bldOrdered By: Jacinto Chaudhary on 10-10-2023 Platelets (Bld) [#/Vol] 376 10*3/uL 150-450 [facility] Protein Test strip Ql (U)Ord ered By: Rayshawn Chaudhary on 10-10-2023 Protein Ql (U) Negative Negative [facility] Serum or plasma albumin be urement (mass/volume)Ordered By: Rayshawn Chaudhary on 10-10-2023 Albumin [Mass/Vol] 3.7 g/dL 3.2-5.0 [facility] Serum or plasma albumin/glob ulin mass ratioOrdered By: Rayshawn Chaudhary on 10-10-2023 Albumin/Globulin [Mass ratio] 1.0 {ratio} 0.9-2.4 [facility] Serum or plasma calcium be urement (mass/volume)Ordered By: Rayshawn Chaudhary on 10-10-2023 Calcium [Mass/Vol] 8.8 mg/dL 8.5-10.1 [facility] Serum or plasma cholesterol in HDL measurement (mass/volume)Ordered By: Rayshawn Chaudhary on 10-10-2023 Cholesterol in HDL [Mass/Vol] 57 mg/dL >40 [facility] Comment on above: The drugs N-Acetylcy steine and Metamizole may falsely depress this assay. Reference Range HDL <40 mg/dL Low HDL Cholesterol HDL >or= 60 mg/dL High HDL Cholesterol Serum or plasma cholesterol in VLDL measurement (mass/volume)Ordered By: Rayshawn Chaudhary on 10-10-2023 Cholesterol in VLDL [Mass/Vol] 28 mg/dL 5-40 [facility] Serum or plasma creatinine m easurement (mass/volume)Ordered By: Rayshawn Chaudhary on 10-10-2023 Creatinine [Mass/Vol] 1.28 mg/dL 0.55-1.02 [facility] Comment on above: The validity of the calculated GFR & GFRAA in patients over 70 years has not been determined. Clinical correlation is essential. Serum or plasma low density lipoprotein (LDL) cholesterol measurement (mass/volume)Ordered By: Rayshawn Chaudhary on 10-10-2023 Cholesterol in LDL [Mass/Vol] 62 mg/dL 0-130 [facility] Serum or plasma urea nitroge n measurement (mass/volume)Ordered By: Rayshawn Chaudhary on 10-10-2023 Urea nitrogen [Mass/Vol] 23 mg/dL 7-18 [facility] Thin prep Papanicolaou smear with manual screeningOrdered By: Rayshawn Chaudhary on 10-10-2023 Thin prep Papanicolaou smear with manual screening 26 U/L 15-37 [facility] Thin prep Papanicolaou smear with manual screening 2 5-15 [facility] Urine blood detectionOrdered By: Rayshawn Chaudhary on 10-10-2023 RBC Ql (U) Negative Negative [facility] Urine clarityOrdered By: Jacinto Chaudhary on 10-10-2023 Clarity (U) Sl. Cloudy Clear [facility] Urine color determinationOrd ered By: Rayshawn Chaudhary on 10-10-2023 Color (U) Yellow Yellow [facility] Urine glucose detectionOrder ed By: Rayshawn Chaudhary on 10-10-2023 Glucose Ql (U) Normal mg/dl Normal [facility] Urine leukocyte esterase det ection by dipstickOrdered By: Rayshawn Chaudhary on 10-10-2023 Leukocyte esterase Test strip Ql (U) 25 /ul Negative [facility] Urine pHOrdered By: Rayshawn Chaudhary on 10-10-2023 pH (U) 6.0 [pH] 5.0 - 8.0 [facility] Urine specific gravity measu rementOrdered By: Rayshawn Chaudhary on 10-10-2023 Specific gravity (U) [Rel density] 1.015 1.002-1.030 [facility] Urobilinogen Auto test strip Ql (U)Ordered By: Rayshawn Chaudhary on 10-10-2023 Urobilinogen Ql (U) Normal mg/dl Normal [facility] Basophil percentageOrdered B y: Dionna Carcamo on 07-16-2023 Basophil percentage 3.2 mg/dL 2.5-4.9 [facility] Chloride [Moles/Vol] 108 mmol/L 98-107 [facility] Glucose [Mass/Vol] 100 mg/dL 74-106 [facility] Comment on above: Fasting Glucose resu lt from 100 to 125 mg/dL suggests IMPAIRED HOMEOSTASIS per A.D.A. criteria. Potassium [Moles/Vol] 4.2 mmol/L 3.5-5.1 [facility] Sodium [Moles/Vol] 141 mmol/L 136-145 [facility] Laboratory - Chemistry and C hemistry - challengeOrdered By: Dionna Carcamo on 07-16-2023 CO2 [Moles/Vol] 29.0 mmol/L 21.0-32.0 [facility] Urea nitrogen/Creatinine [Mass ratio] 14.9 mg/mg 10-20 [facility] No Panel InformationOrdered By: Dionna Carcamo on 07-16-2023 Estimated GFR (MDRD) Amer 56 mL/min >60 [facility] Comment on above: GFR Calc Estimated GFR (MDRD) Non-Af Amer 46 mL/min >60 [facility] Comment on above: Non- GFR Calc Serum or plasma albumin be urement (mass/volume)Ordered By: Dionna Carcamo on 07-16-2023 Albumin [Mass/Vol] 3.5 g/dL 3.2-5.0 [facility] Serum or plasma calcium be urement (mass/volume)Ordered By: Dionna Carcamo on 07-16-2023 Calcium [Mass/Vol] 8.8 mg/dL 8.5-10.1 [facility] Serum or plasma creatinine m easurement (mass/volume)Ordered By: Dionna Carcamo on 07-16-2023 Creatinine [Mass/Vol] 1.21 mg/dL 0.55-1.02 [facility] Comment on above: The validity of the calculated GFR & GFRAA in patients over 70 years has not been determined. Clinical correlation is essential. Serum or plasma urea nitroge n measurement (mass/volume)Ordered By: Dionna Carcamo on 07-16-2023 Urea nitrogen [Mass/Vol] 18 mg/dL 7-18 [facility] Absolute lymphocyte countOrd ered By: Dr. Merrill on 05-21-2023 Lymphocytes Auto (Unsp spec) [#/Vol] 1.96 10*3/uL 0.83-4.51 [facility] Basophil percentageOrdered B y: Dr. Merrill on 05-21-2023 Basophils/100 WBC (Bld) 1.1 % 0-1 [facility] Bilirubin [Mass/Vol] 0.40 mg/dL 0.20-1.00 [facility] Comment on above: For patients on eltr ombopag therapy, use of Dimension Coplay TBIL is not recommended. Chloride [Moles/Vol] 109 mmol/L 98-107 [facility] Eosinophils/100 WBC (Bld) 1.8 % 0-5 [facility] Glucose [Mass/Vol] 97 mg/dL 74-106 [facility] Neutrophils (Bld) [#/Vol] 3.6 10*3/uL 2.0-7.7 [facility] Neutrophils/100 WBC (Bld) 57.4 % 47-70 [facility] Potassium [Moles/Vol] 4.0 mmol/L 3.5-5.1 [facility] Protein [Mass/Vol] 7.7 g/dL 6.4-8.2 [facility] Sodium [Moles/Vol] 141 mmol/L 136-145 [facility] WBC (Bld) [#/Vol] 6.2 10*3/uL 4.4-11.0 [facility] Basophil percentage 0-5 SEEN /hpf 0-5 [facility] Bilirubin Test strip Ql (U)O rdered By: Dr. Merrill on 05-21-2023 Bilirubin Ql (U) Negative Negative [facility] Blood erythrocytes count (nu mber/volume)Ordered By: Dr. Merrill on 05-21-2023 RBC (Bld) [#/Vol] 4.73 10*6/uL 4.2-5.4 [facility] Blood hemoglobin measurement (mass/volume)Ordered By: Dr. Merrill on 05-21-2023 Hemoglobin (Bld) [Mass/Vol] 13.2 g/dL 12.0-15.0 [facility] Blood lymphocytes/100 leukoc ytesOrdered By: Dr. Merrill on 05-21-2023 Lymphocytes/100 WBC (Bld) 31.6 % 19-41 [facility] Blood monocytes/100 leukocyt esOrdered By: Dr. Merrill on 05-21-2023 Monocytes/100 WBC (Bld) 7.9 % 0-10 [facility] Blood platelet mean volumeOr dered By: Dr. Merrill on 05-21-2023 Platelet mean volume (Bld) [Entitic vol] 9.0 fL 6.2-12.0 [facility] Determination of erythrocyte mean corpuscular volume (MCV)Ordered By: Dr. Merrill on 05-21-2023 MCV (RBC) [Entitic vol] 89.6 fL 81-99 [facility] Direct bilirubinOrdered By: Dr. Merrill on 05-21-2023 Bilirubin.direct [Mass/Vol] 0.16 mg/dL 0.00-0.30 [facility] Hematocrit Auto (Bld) [Volum e fraction]Ordered By: Dr. Merrill on 05-21-2023 Hematocrit (Bld) [Volume fraction] 42.4 % 37-47 [facility] Ketones Test strip Ql (U)Ord ered By: Dr. Merrill on 05-21-2023 Ketones Ql (U) Negative Negative [facility] Laboratory - Chemistry and C hemistry - challengeOrdered By: Dr. Merrill on 05-21-2023 ALP [Catalytic activity/Vol] 32 U/L 45-117 [facility] ALT [Catalytic activity/Vol] 27 U/L 13-56 [facility] CO2 [Moles/Vol] 26.0 mmol/L 21.0-32.0 [facility] Globulin (S) [Mass/Vol] 3.9 g/dL 2.2-4.2 [facility] Lipase [Catalytic activity/Vol] 83 U/L 13-75 [facility] Comment on above: Please note:LIPASE r evised reference range effective 23. New Lipase methodology. Expected to produce lower values than the previous assay method. NEW Reference Range: 13 - 75 U/L Urea nitrogen/Creatinine [Mass ratio] 13.8 mg/mg 10-20 [facility] Laboratory - Hematology and Cell countsOrdered By: Dr. Merrill on 05-21-2023 Erythrocyte distribution width (RBC) [Entitic vol] 48.1 fL 35.1-43.9 [facility] Erythrocyte distribution width (RBC) [Ratio] 14.6 % 11.6-14.6 [facility] Immature granulocytes/100 WBC (Bld) 0.200 % 0.0-0.9 [facility] Comment on above: IG% - Immature Granu locytes (promyelocytes, myelocytes and metamyelocytes) > 1% indicates that a LEFT SHIFT is Present. MCH (RBC) [Entitic mass] 27.9 pg 27.0-32.0 [facility] Nucleated RBC/100 WBC (Bld) [Ratio] 0 % 0-5 [facility] MCHC Auto (RBC) [Mass/Vol]Or dered By: Dr. Merrill on 05-21-2023 MCHC (RBC) [Mass/Vol] 31.1 g/dL 32-36 [facility] Mucus LM Ql (Urine sed)Order ed By: Dr. Merrill on 05-21-2023 Mucus Ql (Urine sed) 0 SEEN /hpf [facility] Nitrite Test strip Ql (U)Ord ered By: Dr. Merrill on 05-21-2023 Nitrite Ql (U) Negative Negative [facility] No Panel InformationOrdered By: Dr. Merrill on 05-21-2023 Estimated Creatinine Clearance Calc 27.78 ml/min [facility] Estimated GFR (MDRD) Amer 51 mL/min >60 [facility] Comment on above: GFR Calc Estimated GFR (MDRD) Non-Af Amer 42 mL/min >60 [facility] Comment on above: Non- GFR Calc Troponin I High Sensitivity 7 pg/mL 3.0-54.0 [facility] Comment on above: Please Note: New Lilian t Units and Gender Specific Reference Ranges. For more information see Policy Stat Procedure Coplay High Sensitivity Troponin (TNIH) and attachments. Platelets bldOrdered By: Dr. Merrill on 05-21-2023 Platelets (Bld) [#/Vol] 338 10*3/uL 150-450 [facility] Protein Test strip Ql (U)Ord ered By: Dr. Merrill on 05-21-2023 Protein Ql (U) Negative Negative [facility] Serum or plasma albumin be urement (mass/volume)Ordered By: Dr. Merrill on 05-21-2023 Albumin [Mass/Vol] 3.8 g/dL 3.2-5.0 [facility] Serum or plasma calcium be urement (mass/volume)Ordered By: Dr. Merrill on 05-21-2023 Calcium [Mass/Vol] 9.4 mg/dL 8.5-10.1 [facility] Serum or plasma creatinine m easurement (mass/volume)Ordered By: Dr. Merrill on 05-21-2023 Creatinine [Mass/Vol] 1.30 mg/dL 0.55-1.02 [facility] Comment on above: The validity of the calculated GFR & GFRAA in patients over 70 years has not been determined. Clinical correlation is essential. Serum or plasma urea nitroge n measurement (mass/volume)Ordered By: Dr. Merrill on 05-21-2023 Urea nitrogen [Mass/Vol] 18 mg/dL 7-18 [facility] Squamous epithelial cells de tection in urine sediment by light microscopyOrdered By: Dr. Merrill on 05-21-2023 Epithelial cells.squamous LM Ql (Urine sed) 0-5 SEEN /hpf 5-10 [facility] Thin prep Papanicolaou smear with manual screeningOrdered By: Dr. Merrill on 05-21-2023 Thin prep Papanicolaou smear with manual screening 20 U/L 15-37 [facility] Thin prep Papanicolaou smear with manual screening 6 5-15 [facility] Urine blood detectionOrdered By: Dr. Merrill on 05-21-2023 RBC Ql (U) Negative Negative [facility] RBC Ql (U) 0 SEEN /hpf 0-5 [facility] Urine clarityOrdered By: Dr. Merrill on 05-21-2023 Clarity (U) Sl. Cloudy Clear [facility] Urine color determinationOrd ered By: Dr. Merrill on 05-21-2023 Color (U) Yellow Yellow [facility] Urine glucose detectionOrder ed By: Dr. Merrill on 05-21-2023 Glucose Ql (U) Normal mg/dl Normal [facility] Urine leukocyte esterase det ection by dipstickOrdered By: Dr. Merrill on 05-21-2023 Leukocyte esterase Test strip Ql (U) 25 /ul Negative [facility] Urine pHOrdered By: Dr. Jose Alberto sanchez on 05-21-2023 pH (U) 6.0 [pH] 5.0 - 8.0 [facility] Urine sediment bacteria coun t by microscopy (number/high power field)Ordered By: Dr. Merrill on 05-21-2023 Bacteria LM.HPF (Urine sed) [#/Area] 0 /[HPF] None Seen [facility] Urine specific gravity measu rementOrdered By: Dr. Merrill on 05-21-2023 Specific gravity (U) [Rel density] 1.015 1.002-1.030 [facility] Urobilinogen Auto test strip Ql (U)Ordered By: Dr. Merrill on 05-21-2023 Urobilinogen Ql (U) Normal mg/dl Normal [facility] Absolute lymphocyte countOrd ered By: Dr. Parham on 05-15-2023 Lymphocytes Auto (Unsp spec) [#/Vol] 1.82 10*3/uL 0.83-4.51 [facility] Basophil percentageOrdered B y: Dr. Parham on 05-15-2023 Basophils/100 WBC (Bld) 0.8 % 0-1 [facility] Bilirubin [Mass/Vol] 0.40 mg/dL 0.20-1.00 [facility] Comment on above: For patients on eltr ombopag therapy, use of Dimension Coplay TBIL is not recommended. Chloride [Moles/Vol] 107 mmol/L 98-107 [facility] Eosinophils/100 WBC (Bld) 1.5 % 0-5 [facility] Glucose [Mass/Vol] 132 mg/dL 74-106 [facility] Comment on above: Fasting Glucose resu lt greater than or equal to 126 mg/dL suggests DIABETES MELLITUS per A.D.A. criteria. Neutrophils (Bld) [#/Vol] 3.7 10*3/uL 2.0-7.7 [facility] Neutrophils/100 WBC (Bld) 62.1 % 47-70 [facility] Potassium [Moles/Vol] 4.2 mmol/L 3.5-5.1 [facility] Comment on above: Moderate Hemolysis, Result may be falsely increased. Protein [Mass/Vol] 7.4 g/dL 6.4-8.2 [facility] Sodium [Moles/Vol] 138 mmol/L 136-145 [facility] WBC (Bld) [#/Vol] 6.0 10*3/uL 4.4-11.0 [facility] Blood erythrocytes count (nu mber/volume)Ordered By: Dr. Parham on 05-15-2023 RBC (Bld) [#/Vol] 4.24 10*6/uL 4.2-5.4 [facility] Blood hemoglobin measurement (mass/volume)Ordered By: Dr. Parham on 05-15-2023 Hemoglobin (Bld) [Mass/Vol] 12.2 g/dL 12.0-15.0 [facility] Blood lymphocytes/100 leukoc ytesOrdered By: Dr. Parham on 05-15-2023 Lymphocytes/100 WBC (Bld) 30.5 % 19-41 [facility] Blood monocytes/100 leukocyt esOrdered By: Dr. Parham on 05-15-2023 Monocytes/100 WBC (Bld) 4.9 % 0-10 [facility] Blood platelet mean volumeOr dered By: Dr. Parham on 05-15-2023 Platelet mean volume (Bld) [Entitic vol] 9.3 fL 6.2-12.0 [facility] Determination of erythrocyte mean corpuscular volume (MCV)Ordered By: Dr. Parham on 05-15-2023 MCV (RBC) [Entitic vol] 89.6 fL 81-99 [facility] Erythrocyte sedimentation ra teOrdered By: Dr. Parham on 05-15-2023 ESR (Bld) [Velocity] 6 mm/h 0-30 [facility] Hematocrit Auto (Bld) [Volum e fraction]Ordered By: Dr. Parham on 05-15-2023 Hematocrit (Bld) [Volume fraction] 38.0 % 37-47 [facility] Laboratory - Chemistry and C hemistry - challengeOrdered By: Dr. Parham on 05-15-2023 ALP [Catalytic activity/Vol] 33 U/L 45-117 [facility] ALT [Catalytic activity/Vol] 29 U/L 13-56 [facility] CO2 [Moles/Vol] 27.0 mmol/L 21.0-32.0 [facility] Globulin (S) [Mass/Vol] 3.9 g/dL 2.2-4.2 [facility] Urea nitrogen/Creatinine [Mass ratio] 10.4 mg/mg 10-20 [facility] Laboratory - Hematology and Cell countsOrdered By: Dr. Parham on 05-15-2023 Erythrocyte distribution width (RBC) [Entitic vol] 48.0 fL 35.1-43.9 [facility] Erythrocyte distribution width (RBC) [Ratio] 14.7 % 11.6-14.6 [facility] Immature granulocytes/100 WBC (Bld) 0.200 % 0.0-0.9 [facility] Comment on above: IG% - Immature Granu locytes (promyelocytes, myelocytes and metamyelocytes) > 1% indicates that a LEFT SHIFT is Present. MCH (RBC) [Entitic mass] 28.8 pg 27.0-32.0 [facility] Nucleated RBC/100 WBC (Bld) [Ratio] 0 % 0-5 [facility] MCHC Auto (RBC) [Mass/Vol]Or dered By: Dr. Parham on 05-15-2023 MCHC (RBC) [Mass/Vol] 32.1 g/dL 32-36 [facility] No Panel InformationOrdered By: Dr. Parham on 05-15-2023 Estimated GFR (MDRD) Amer 49 mL/min >60 [facility] Comment on above: GFR Calc Estimated GFR (MDRD) Non-Af Amer 41 mL/min >60 [facility] Comment on above: Non- GFR Calc Platelets bldOrdered By: Dr. Parham on 05-15-2023 Platelets (Bld) [#/Vol] 361 10*3/uL 150-450 [facility] Serum or plasma C reactive p rotein measurement (mass/volume)Ordered By: Dr. Parham on 05-15-2023 CRP [Mass/Vol] 4.14 mg/L 0.0-3.0 [facility] Comment on above: C-Reactive Protein ( CRP) provides useful information for thediagnosis, therapy and monitoring of inflammatory processesand associated diseases. For the evaluation of Relative Riskfor Cardiovascular Disease, a High Sensitivity CRP (HSCRP)should be ordered. Serum or plasma albumin be urement (mass/volume)Ordered By: Dr. Parham on 05-15-2023 Albumin [Mass/Vol] 3.5 g/dL 3.2-5.0 [facility] Serum or plasma albumin/glob ulin mass ratioOrdered By: Dr. Parham on 05-15-2023 Albumin/Globulin [Mass ratio] 0.9 {ratio} 0.9-2.4 [facility] [facility] Serum or plasma calcium be urement (mass/volume)Ordered By: Dr. Parham on 05-15-2023 Calcium [Mass/Vol] 9.1 mg/dL 8.5-10.1 [facility] Serum or plasma creatinine m easurement (mass/volume)Ordered By: Dr. Parham on 05-15-2023 Creatinine [Mass/Vol] 1.35 mg/dL 0.55-1.02 [facility] Comment on above: The validity of the calculated GFR & GFRAA in patients over 70 years has not been determined. Clinical correlation is essential. Serum or plasma urea nitroge n measurement (mass/volume)Ordered By: Dr. Parham on 05-15-2023 Urea nitrogen [Mass/Vol] 14 mg/dL 7-18 [facility] Thin prep Papanicolaou smear with manual screeningOrdered By: Dr. Parham on 05-15-2023 Thin prep Papanicolaou smear with manual screening 38 U/L 15-37 [facility] Comment on above: Moderate Hemolysis, Result may be falsely increased. Thin prep Papanicolaou smear with manual screening 4 5-15 [facility] Absolute lymphocyte countOrd ered By: Rayshawn Chaudhary on 03-17-2023 Lymphocytes Auto (Unsp spec) [#/Vol] 1.80 10*3/uL 0.83-4.51 [facility] Basophil percentageOrdered B y: Rayshawn Chaudhary on 03-17-2023 Amylase [Catalytic activity/Vol] 52 U/L 25-115 [facility] Basophils/100 WBC (Bld) 0.7 % 0-1 [facility] Bilirubin [Mass/Vol] 0.30 mg/dL 0.20-1.00 [facility] Comment on above: For patients on eltr ombopag therapy, use of Dimension Coplay TBIL is not recommended. Chloride [Moles/Vol] 108 mmol/L 98-107 [facility] Eosinophils/100 WBC (Bld) 1.9 % 0-5 [facility] Glucose [Mass/Vol] 95 mg/dL 74-106 [facility] Neutrophils (Bld) [#/Vol] 4.6 10*3/uL 2.0-7.7 [facility] Neutrophils/100 WBC (Bld) 65.2 % 47-70 [facility] Potassium [Moles/Vol] 3.9 mmol/L 3.5-5.1 [facility] Protein [Mass/Vol] 7.0 g/dL 6.4-8.2 [facility] Sodium [Moles/Vol] 142 mmol/L 136-145 [facility] WBC (Bld) [#/Vol] 7.0 10*3/uL 4.4-11.0 [facility] Blood erythrocytes count (nu mber/volume)Ordered By: Rayshawn Chaudhary on 03-17-2023 RBC (Bld) [#/Vol] 4.44 10*6/uL 4.2-5.4 [facility] Blood hemoglobin measurement (mass/volume)Ordered By: Rayshawn Chaudhary on 03-17-2023 Hemoglobin (Bld) [Mass/Vol] 12.4 g/dL 12.0-15.0 [facility] Blood lymphocytes/100 leukoc ytesOrdered By: Rayshawn Chaudhary on 03-17-2023 Lymphocytes/100 WBC (Bld) 25.8 % 19-41 [facility] Blood monocytes/100 leukocyt esOrdered By: Rayshawn Chaudhary on 03-17-2023 Monocytes/100 WBC (Bld) 6.3 % 0-10 [facility] Blood platelet mean volumeOr dered By: Rayshawn Chaudhary on 03-17-2023 Platelet mean volume (Bld) [Entitic vol] 10.8 fL 6.2-12.0 [facility] Determination of erythrocyte mean corpuscular volume (MCV)Ordered By: Rayshawn Chaudhary on 03-17-2023 MCV (RBC) [Entitic vol] 88.1 fL 81-99 [facility] Direct bilirubinOrdered By: Rayshawn Chaudhary on 03-17-2023 Bilirubin.direct [Mass/Vol] 0.15 mg/dL 0.00-0.30 [facility] Hematocrit Auto (Bld) [Volum e fraction]Ordered By: Rayshawn Chaudhary on 03-17-2023 Hematocrit (Bld) [Volume fraction] 39.1 % 37-47 [facility] Laboratory - Chemistry and C hemistry - challengeOrdered By: Rayshawn Chaudhary on 03-17-2023 ALP [Catalytic activity/Vol] 38 U/L 45-117 [facility] ALT [Catalytic activity/Vol] 28 U/L 13-56 [facility] CO2 [Moles/Vol] 31.0 mmol/L 21.0-32.0 [facility] Globulin (S) [Mass/Vol] 3.4 g/dL 2.2-4.2 [facility] Lipase [Catalytic activity/Vol] 97 U/L 13-75 [facility] Comment on above: Please note:LIPASE r evised reference range effective 23. New Lipase methodology. Expected to produce lower values than the previous assay method. NEW Reference Range: 13 - 75 U/L Urea nitrogen/Creatinine [Mass ratio] 15.1 mg/mg 10-20 [facility] Laboratory - Hematology and Cell countsOrdered By: Rayshawn Chaudhary on 03-17-2023 Erythrocyte distribution width (RBC) [Entitic vol] 46.6 fL 35.1-43.9 [facility] Erythrocyte distribution width (RBC) [Ratio] 14.6 % 11.6-14.6 [facility] Immature granulocytes/100 WBC (Bld) 0.100 % 0.0-0.9 [facility] Comment on above: IG% - Immature Granu locytes (promyelocytes, myelocytes and metamyelocytes) > 1% indicates that a LEFT SHIFT is Present. MCH (RBC) [Entitic mass] 27.9 pg 27.0-32.0 [facility] Nucleated RBC/100 WBC (Bld) [Ratio] 0 % 0-5 [facility] MCHC Auto (RBC) [Mass/Vol]Or dered By: Rayshawn Chaudhary on 03-17-2023 MCHC (RBC) [Mass/Vol] 31.7 g/dL 32-36 [facility] No Panel InformationOrdered By: Rayshawn Chaudhary on 03-17-2023 Estimated GFR (MDRD) Amer 45 mL/min >60 [facility] Comment on above: GFR Calc Estimated GFR (MDRD) Non-Af Amer 37 mL/min >60 [facility] Comment on above: Non- GFR Calc Platelets bldOrdered By: Jacinto Chaudhary on 03-17-2023 Platelets (Bld) [#/Vol] 354 10*3/uL 150-450 [facility] Serum or plasma albumin be urement (mass/volume)Ordered By: Rayshawn Chaudhary on 03-17-2023 Albumin [Mass/Vol] 3.6 g/dL 3.2-5.0 [facility] Serum or plasma albumin/glob ulin mass ratioOrdered By: Rayshawn Chaudhary on 03-17-2023 Albumin/Globulin [Mass ratio] 1.1 {ratio} 0.9-2.4 [facility] Serum or plasma calcium be urement (mass/volume)Ordered By: Rayshawn Chaudhary on 03-17-2023 Calcium [Mass/Vol] 9.6 mg/dL 8.5-10.1 [facility] Serum or plasma creatinine m easurement (mass/volume)Ordered By: Rayshawn Chaudhary on 03-17-2023 Creatinine [Mass/Vol] 1.46 mg/dL 0.55-1.02 [facility] Comment on above: The validity of the calculated GFR & GFRAA in patients over 70 years has not been determined. Clinical correlation is essential. Serum or plasma urea nitroge n measurement (mass/volume)Ordered By: Rayshawn Chaudhary on 03-17-2023 Urea nitrogen [Mass/Vol] 22 mg/dL 7-18 [facility] Thin prep Papanicolaou smear with manual screeningOrdered By: Rayshawn Chaudhary on 03-17-2023 Thin prep Papanicolaou smear with manual screening 20 U/L 15-37 [facility] Thin prep Papanicolaou smear with manual screening 3 5-15 [facility] BASIC METABOLIC PANELon 03-01 Anion gap [Moles/Vol] 10 mmol/L Normal 10 - 20 [facility] Comment on above: Performed By: #### B MP #### [facility] [address] [place] [address] Calcium [Mass/Vol] 9.5 mg/dL Normal 8.6 - 10.3 [facility] Comment on above: Performed By: #### B MP #### [address] [address] Chloride [Moles/Vol] 105 mmol/L Normal 98 - 107 [facility] Comment on above: Performed By: #### B MP #### [address] [address] Creatinine [Mass/Vol] 1.20 mg/dL High 0.50 - 1.05 [facility] Comment on above: Performed By: #### B MP #### [address] [address] GFR/1.73 sq M.predicted among non-blacks MDRD (S/P/Bld) [Vol rate/Area] 47 mL/min/{1.73_m2} Abnormal >90 [facility] Comment on above: Result Comment: CALC ULATIONS OF ESTIMATED GFR ARE PERFORMED USING THE 2020 CKD-EPI STUDY REFIT EQUATION WITHOUT THE RACE VARIABLE FOR THE IDMS-TRACEABLE CREATININE METHODS. https://jasn.asnjournals.org/content/early//ASN.62475 55104 Performed By: #### B MP #### [address] [address] Glucose [Mass/Vol] 120 mg/dL High 74 - 99 [facility] Comment on above: Performed By: #### B MP #### [address] [address] HCO3 (Bld) [Moles/Vol] 29 mmol/L Normal 21 - 32 [facility] Comment on above: Performed By: #### B MP #### [address] [address] Potassium [Moles/Vol] 3.7 mmol/L Normal 3.5 - 5.3 [facility] Comment on above: Performed By: #### B MP #### [address] [address] Sodium [Moles/Vol] 140 mmol/L Normal 136 - 145 [facility] Comment on above: Performed By: #### B MP #### [address] [address] Urea nitrogen [Mass/Vol] 18 mg/dL Normal 6 - 23 [facility] Comment on above: Performed By: #### B MP #### [address] [address] CBC AND DIFFERENTIALon 03-13 % AUTOMATED IMMATURE GRAN 0.3 % Normal 0.0 - 0.9 [facility] Comment on above: Result Comment: Meron ture Granulocyte Count (IG) includes promyelocytes, myelocytes and metamyelocytes but does not include bands. Percent differential counts (%) should be interpreted in the context of the absolute cell counts (cells/L). Performed By: #### C BCDF #### [place] [id number] Basophils (Bld) [#/Vol] 0.05 10*3/uL Normal 0.00 - 0.10 [facility] Comment on above: Performed By: #### C BCDF #### [place] [id number] Basophils/100 WBC (Bld) 0.7 % Normal 0.0 - 2.0 [facility] Comment on above: Performed By: #### C BCDF #### [address] [address] Eosinophils (Bld) [#/Vol] 0.08 10*3/uL Normal 0.00 - 0.40 [facility] Comment on above: Performed By: #### C BCDF #### [place] [id number] Eosinophils/100 WBC (Bld) 1.2 % Normal 0.0 - 6.0 [facility] Comment on above: Performed By: #### C BCDF #### [address] [address] Erythrocyte distribution width (RBC) [Ratio] 14.4 % Normal 11.5 - 14.5 [facility] Comment on above: Performed By: #### C BCDF #### [address] [address] Hematocrit (Bld) [Volume fraction] 36.8 % Normal 36.0 - 46.0 [facility] Comment on above: Performed By: #### C BCDF #### [address] [address] Hemoglobin (Bld) [Mass/Vol] 11.6 g/dL Low 12.0 - 16.0 [facility] Comment on above: Performed By: #### C BCDF #### [address] [address] Lymphocytes (Bld) [#/Vol] 1.44 10*3/uL Normal 0.80 - 3.00 [facility] Comment on above: Performed By: #### C BCDF #### [address] [address] Lymphocytes/100 WBC (Bld) 21.1 % Normal 13.0 - 44.0 [facility] Comment on above: Performed By: #### C BCDF #### [address] [address] MCHC (RBC) [Mass/Vol] 31.5 g/dL Low 32.0 - 36.0 [facility] Comment on above: Performed By: #### C BCDF #### [address] [address] MCV (RBC) [Entitic vol] 88 fL Normal 80 - 100 [facility] Comment on above: Performed By: #### C BCDF #### [address] [address] Monocytes (Bld) [#/Vol] 0.44 10*3/uL Normal 0.05 - 0.80 [facility] Comment on above: Performed By: #### C BCDF #### [address] [address] Monocytes/100 WBC (Bld) 6.5 % Normal 2.0 - 10.0 [facility] Comment on above: Performed By: #### C BCDF #### [address] [address] Neutrophils (Bld) [#/Vol] 4.79 10*3/uL Normal 1.60 - 5.50 [facility] Comment on above: Result Comment: Perc ent differential counts (%) should be interpreted in the context of the absolute cell counts (cells/L). Performed By: #### C BCDF #### [address] [address] Neutrophils/100 WBC (Bld) 70.2 % Normal 40.0 - 80.0 [facility] Comment on above: Performed By: #### C BCDF #### [address] [address] Platelets (Bld) [#/Vol] 374 10*3/uL Normal 150 - 450 [facility] Comment on above: Performed By: #### C BCDF #### [address] [address] RBC 4.20 x10E12/L Normal 4.00 - 5.20 [facility] Comment on above: Performed By: #### C BCDF #### [address] [address] WBC (Bld) [#/Vol] 6.8 10*3/uL Normal 4.4 - 11.3 [facility] Comment on above: Performed By: #### C BCDF #### [address] [address] CHEST 2 VIEW PA AND LATon CHEST 2 VIEW PA AND LAT Patient Name: ALISTAIR ARECHIGA STUDY: CHEST 2 VIEW PA AND LAT; 03/13/2023 3:00 pm INDICATION: dizzy, nausea . COMPARISON: None. ACCESSION NUMBER(S): [id number] ORDERING CLINICIAN: JAMARCUS HENLEY FINDINGS: Faint linear density in the left [...] base. Electronically signed by: RAYNA SOLITARIO MD Normal [facility] CT HEAD WO CONTRASTon 2022 CT HEAD WO CONTRAST Patient Name: ALISTAIR ARECHIGA STUDY: CT HEAD WO CONTRAST; 03/13/2023 2:35 pm INDICATION: dizzy, nausea . COMPARISON: None. ACCESSION NUMBER(S): [id number] ORDERING CLINICIAN: JAMARCUS HENLEY TECHNIQUE: Unenhanced CT images of the head [...] tab(s) orally once a day Drug Name: Quanah 5 mg-325 mg oral tablet Instructions: 1 [...] results: Troponin I, High Sensitivity Trending View [id number] 15:11:00 13-Mar-2023 14:03:00 Troponin I, High Sensitivity7 6 Urinalysis with Culture if Indicated 13-Mar-2023 14:14:00 ResultValue Color, Urine Yellow Reference Range: STRAW,YELLOW Appearance, Urine HAZY Specific Norco, Urine 1.010 pH, Urine 8.0 Protein, Urine [...] SIGNS: T PRBP SpO2O2(LPM) %FiO2 Method 13-Mar-2023 16:30:[id number]/87 98 room air, no respiratory support 13-Mar-2023 15:30:00-9166504/78 97 room air, no respiratory support 13-Mar-2023 14:10:00-64245/78 13-Mar-2023 13:20:00-36.97502904/7 6 96 room air, no respiratory support 13-Mar-2023 13:05:[id number]/7 6 96 room air, no respiratory support MDM MDM/ED COURSE: PMH: Reviewed PSH: Reviewed Social History: Reviewed. Allergies reviewed. HPI: This is a 77 year old female with history of vertigo, GERD, hypertension, thyroid disorder who presents to the ED today accompanied by her with complaints of dizziness, nausea. Patient states her symptoms started early in the morning on Friday. States she has been at [facility] twice for the symptoms. She initially had [...] TMs clear. (more content not included)... Normal [facility] Risk Screen - Adult Emergenc yon 03-13-2023 Risk Screen - Adult Emergency Preferred Language: Preferred Language: Preferred Language for Discussing Health Care (patient/designee)Engl natan Patient Preferred Pharmacy: Patient Preferred Pharmacy Statement: [...] Learning Preferencesverbal instruction Cultural Considerationsnone Developmental Considerationsnone Mormon Considerationsnone Other Learnersspouse Learning Assessment (Other Learner): Learning Assessment (Other Learner): Other learner availableyes... Learnerspouse Factors Influencing Readiness to Learnn/a Factors that Impact Ability to Learnnone Devices/Methods Used to Communicatenone Learning Preferencesverbal instruction Cultural Considerationsnone Developmental Considerationsnone Mormon Considerationsnone Pressure Injury/TB/Substance: Pressure Injury: Do you have a coughno Smoking Statusnever smoker Alcohol Useoccasionally Drug Usedenies Admission Risk Screen: Significant IndicatorsComplete CAGE: CAGE: Is this an injured patient at a Trauma Center ([facility]/[place]/[facility]/[place]): no Electronic Signatures: Willow Cleary (CARLYN) (Signed 13-Mar-2023 13:25) Authored: Preferred Language, Patient Preferred Pharmacy, Advanced Directives, Family Violence Adult, Learning Assessment (Patient), Learning Assessment (Other Learner), Pressure Injury/TB/Substance, Pressure Injury, CAGE Last Updated: 13-Mar-2023 13:25 by Willow Cleary (CARLYN) Normal [facility] TROPONIN I, HIGH SENSITIVITY on 03-13-2023 TROPONIN I, HIGH SENSITIVITY 7 ng/L Normal 0 - 13 [facility] Comment on above: Result Comment: . [...] performed using a different testing methodology at [facility] Direct result comparisons should only be made within the same method. Performed By: #### [facility] #### [place] [id number] TROPONIN I, HIGH SENSITIVITY 6 ng/L Normal 0 - 13 [facility] Comment on above: Result Comment: . [...] performed using a different testing methodology at [facility] other [facility]. Direct result comparisons should only be made within the same method. Performed By: #### [facility] #### [address] [address] Triage - EDon 03-13-2023 Triage - ED Chart Review: PRIMARY ASSESSMENT ABCD Normal Findings: airway open and patent, circulation normal and alert and oriented ARRIVAL INFORMATION Means of Arrival: wheelchair Mode of Arrival: private vehicle Arrival From: home Accompanied By: spouse/significant other Language: Spoken Language Preferred: Israeli Reading Language Preferred: Israeli Present on Arrival: Device Present on Arrival to ED: no CHIEF COMPLAINT ALISTAIR ARECHIGA is a Female patient with a chief complaint of dizziness (states she started with epigastric pain 4 days ago and was seen at [facility]. then went back the next day with [...] 13-Mar-2023 13:24 by Willow Cleary (RN) Normal [facility] URINALYSIS WITH CULTURE IF I NDICATEDon 03-13-2023 Appearance (U) HAZY Normal CLEAR [facility] Comment on above: Performed By: #### U ARFX #### [place] [address] Bilirubin Ql (U) Negative Normal NEGATIVE [facility] Comment on above: Performed By: #### U ARFX #### [place] [address] Color (U) Yellow Normal STRAW,YELLO W [facility] Comment on above: Performed By: #### U ARFX #### [address] [address] Glucose Ql (U) Negative Normal NEGATIVE [facility] Comment on above: Performed By: #### U ARFX #### [address] [address] Hemoglobin Ql (U) Negative Normal NEGATIVE [facility] Comment on above: Performed By: #### U ARFX #### [address] [address] Ketones Ql (U) Negative Normal NEGATIVE [facility] Comment on above: Performed By: #### U AR[facility] #### [address] [address] Leukocyte esterase Test strip Ql (U) Negative Normal NEGATIVE [facility] Comment on above: Performed By: #### U AR[facility] #### [address] [address] Nitrite Ql (U) Negative Normal NEGATIVE [facility] Comment on above: Performed By: #### U AR[facility] #### [address] [place] [address] pH (U) 8.0 [pH] Normal 5.0 - 8.0 [facility] Comment on above: Performed By: #### U ARFX #### [address] [address] Protein Ql (U) Negative Normal NEGATIVE [facility] Comment on above: Performed By: #### U ARFX #### [place] [id number] Specific gravity (U) [Rel density] 1.010 Normal 1.005 - 1.035 [facility] Comment on above: Performed By: #### U ARFX #### [place] [id number] Urobilinogen (U) [Mass/Vol] mg/dL Normal 0.0 - 1.9 [facility] Comment on above: Performed By: #### U ARFX #### [place] [id number] Absolute lymphocyte countOrd ered By: Dr. Landis on 03-09-2023 Lymphocytes Auto (Unsp spec) [#/Vol] 2.71 10*3/uL 0.83-4.51 [facility] Basophil percentageOrdered B y: Dr. Landis on 03-09-2023 Basophil percentage 0 SEEN /hpf 0-5 [facility] Basophils/100 WBC (Bld) 0.8 % 0-1 [facility] Bilirubin [Mass/Vol] 0.30 mg/dL 0.20-1.00 [facility] Comment on above: For patients on eltr ombopag therapy, use of Dimension Coplay TBIL is not recommended. Chloride [Moles/Vol] 109 mmol/L 98-107 [facility] Eosinophils/100 WBC (Bld) 2.6 % 0-5 [facility] Glucose [Mass/Vol] 106 mg/dL 74-106 [facility] Comment on above: Fasting Glucose resu lt from 100 to 125 mg/dL suggests IMPAIRED HOMEOSTASIS per A.D.A. criteria. Neutrophils (Bld) [#/Vol] 3.9 10*3/uL 2.0-7.7 [facility] Neutrophils/100 WBC (Bld) 51.7 % 47-70 [facility] Potassium [Moles/Vol] 3.8 mmol/L 3.5-5.1 [facility] Protein [Mass/Vol] 7.2 g/dL 6.4-8.2 [facility] Sodium [Moles/Vol] 142 mmol/L 136-145 [facility] WBC (Bld) [#/Vol] 7.4 10*3/uL 4.4-11.0 [facility] Bilirubin Test strip Ql (U)O rdered By: Dr. Landis on 03-09-2023 Bilirubin Ql (U) Negative Negative [facility] Blood erythrocytes count (nu mber/volume)Ordered By: Dr. Landis on 03-09-2023 RBC (Bld) [#/Vol] 4.34 10*6/uL 4.2-5.4 [facility] Blood hemoglobin measurement (mass/volume)Ordered By: Dr. Landis on 03-09-2023 Hemoglobin (Bld) [Mass/Vol] 12.4 g/dL 12.0-15.0 [facility] Blood lymphocytes/100 leukoc ytesOrdered By: Dr. Landis on 03-09-2023 Lymphocytes/100 WBC (Bld) 36.4 % 19-41 [facility] Blood monocytes/100 leukocyt esOrdered By: Dr. Landis on 03-09-2023 Monocytes/100 WBC (Bld) 8.1 % 0-10 [facility] Blood platelet mean volumeOr dered By: Dr. Landis on 03-09-2023 Platelet mean volume (Bld) [Entitic vol] 9.5 fL 6.2-12.0 [facility] Determination of erythrocyte mean corpuscular volume (MCV)Ordered By: Dr. Landis on 03-09-2023 MCV (RBC) [Entitic vol] 89.2 fL 81-99 [facility] Hematocrit Auto (Bld) [Volum e fraction]Ordered By: Dr. Landis on 03-09-2023 Hematocrit (Bld) [Volume fraction] 38.7 % 37-47 [facility] Ketones Test strip Ql (U)Ord ered By: Dr. Landis on 04-09-2023 Ketones Ql (U) Negative Negative [facility] Laboratory - Chemistry and C hemistry - challengeOrdered By: Dr. Landis on 03-09-2023 ALP [Catalytic activity/Vol] 37 U/L 45-117 [facility] ALT [Catalytic activity/Vol] 30 U/L 13-56 [facility] CO2 [Moles/Vol] 27.0 mmol/L 21.0-32.0 [facility] Globulin (S) [Mass/Vol] 3.7 g/dL 2.2-4.2 [facility] Lipase [Catalytic activity/Vol] 442 U/L 73-393 [facility] Urea nitrogen/Creatinine [Mass ratio] 15.6 mg/mg 10-20 [facility] Laboratory - Hematology and Cell countsOrdered By: Dr. Landis on 03-09-2023 Erythrocyte distribution width (RBC) [Entitic vol] 48.1 fL 35.1-43.9 [facility] Erythrocyte distribution width (RBC) [Ratio] 14.7 % 11.6-14.6 [facility] Immature granulocytes/100 WBC (Bld) 0.400 % 0.0-0.9 [facility] Comment on above: IG% - Immature Granu locytes (promyelocytes, myelocytes and metamyelocytes) > 1% indicates that a LEFT SHIFT is Present. MCH (RBC) [Entitic mass] 28.6 pg 27.0-32.0 [facility] Nucleated RBC/100 WBC (Bld) [Ratio] 0 % 0-5 [facility] MCHC Auto (RBC) [Mass/Vol]Or dered By: Dr. Landis on 03-09-2023 MCHC (RBC) [Mass/Vol] 32.0 g/dL 32-36 [facility] Mucus LM Ql (Urine sed)Order ed By: Dr. Landis on 03-09-2023 Mucus Ql (Urine sed) 0 SEEN /hpf [facility] Nitrite Test strip Ql (U)Ord ered By: Dr. Landis on 03-09-2023 Nitrite Ql (U) Negative Negative [facility] No Panel InformationOrdered By: Dr. Landis on 03-09-2023 Estimated Creatinine Clearance Calc 25.61 ml/min [facility] Estimated GFR (MDRD) Amer 47 mL/min >60 [facility] Comment on above: GFR Calc Estimated GFR (MDRD) Non-Af Amer 39 mL/min >60 [facility] Comment on above: Non- GFR Calc Troponin I High Sensitivity 9 pg/mL 3.0-54.0 [facility] Comment on above: Please Note: New Lilian t Units and Gender Specific Reference Ranges. For more information see Policy Stat Procedure [place] High Sensitivity Troponin (TNIH) and attachments. Platelets bldOrdered By: Dr. Landis on 03-09-2023 Platelets (Bld) [#/Vol] 384 10*3/uL 150-450 [facility] Protein Test strip Ql (U)Ord ered By: Dr. Landis on 03-09-2023 Protein Ql (U) Negative Negative [facility] Serum or plasma albumin be urement (mass/volume)Ordered By: Dr. Landis on 03-09-2023 Albumin [Mass/Vol] 3.5 g/dL 3.2-5.0 [facility] Serum or plasma albumin/glob ulin mass ratioOrdered By: Dr. Landis on 03-09-2023 Albumin/Globulin [Mass ratio] 0.9 {ratio} 0.9-2.4 [facility] Serum or plasma calcium be urement (mass/volume)Ordered By: Dr. Landis on 03-09-2023 Calcium [Mass/Vol] 9.4 mg/dL 8.5-10.1 [facility] Serum or plasma creatinine m easurement (mass/volume)Ordered By: Dr. Landis on 03-09-2023 Creatinine [Mass/Vol] 1.41 mg/dL 0.55-1.02 [facility] Comment on above: The validity of the calculated GFR & GFRAA in patients over 70 years has not been determined. Clinical correlation is essential. Serum or plasma urea nitroge n measurement (mass/volume)Ordered By: Dr. Landis on 03-09-2023 Urea nitrogen [Mass/Vol] 22 mg/dL 7-18 [facility] Squamous epithelial cells de tection in urine sediment by light microscopyOrdered By: Dr. Landis on 03-09-2023 Epithelial cells.squamous LM Ql (Urine sed) 0-5 SEEN /hpf 5-10 [facility] Thin prep Papanicolaou smear with manual screeningOrdered By: Dr. Landis on 03-09-2023 Thin prep Papanicolaou smear with manual screening 24 U/L 15-37 [facility] Thin prep Papanicolaou smear with manual screening 6 5-15 [facility] Urine blood detectionOrdered By: Dr. Landis on 03-09-2023 RBC Ql (U) Negative Negative [facility] RBC Ql (U) 0-5 SEEN /hpf 0-5 [facility] Urine clarityOrdered By: Dr. Landis on 03-09-2023 Clarity (U) Clear Clear [facility] Urine color determinationOrd ered By: Dr. Landis on 03-09-2023 Color (U) Yellow Yellow [facility] Urine glucose detectionOrder ed By: Dr. Landis on 03-09-2023 Glucose Ql (U) Normal mg/dl Normal [facility] Urine leukocyte esterase det ection by dipstickOrdered By: Dr. Landis on 03-09-2023 Leukocyte esterase Test strip Ql (U) 25 /ul Negative [facility] Urine pHOrdered By: Dr. Katie rubalcava on 03-09-2023 pH (U) 6.0 [pH] 5.0 - 8.0 [facility] Urine sediment bacteria coun t by microscopy (number/high power field)Ordered By: Dr. Landis on 03-09-2023 Bacteria LM.HPF (Urine sed) [#/Area] 1 /[HPF] None Seen [facility] Urine specific gravity measu rementOrdered By: Dr. Landis on 03-09-2023 Specific gravity (U) [Rel density] 1.020 1.002-1.030 [facility] Urobilinogen Auto test strip Ql (U)Ordered By: Dr. Landis on 03-09-2023 Urobilinogen Ql (U) Normal mg/dl Normal [facility] URINE JESÚS CULTURE-IDENTIFICA [place] ([id number])Ordered By: Half Sole Fitter on 12-24-2022 Bacteria identified Cx Nom (U) Final report Abnormal [facility]; [facility] Work Phone: Comment on above: PERFORMED BY: Survios [id number] [facility] [id number] Information: SRC: Bacteria identified Cx Nom (U) Escherichia coli Abnormal [facility]; [facility] Work Phone: Comment on above: Cefazolin <=4 ug/mLC efazolin with an HILARY <=16 predicts susceptibility to the oral agentscefaclor, cefdinir, cefpodoxime, cefprozil, cefuroxime, cephalexin,and loracarbef when used for therapy of uncomplicated urinary tractinfections due to E. coli, Klebsiella pneumoniae, and Proteusmirabilis.4,000 Colonies/mL PERFORMED BY: [employer] [place] [id number] Information: SRC: Bacteria identified Cx Nom (U) [...] SPiperacillin/Tazobactam STetracycline RTobramycin STrimethoprim/Sulfa S PERFORMED BY: [employer] [place] [id number] Information: SRC: Urinalysis, Office ([id number])Or dered By: Citlali Gonzalez on 12-24-2022 Bilirubin Ql (U) Negative Normal Comprehe [facility]; [facility] Work Phone: Glucose Test strip (U) [Mass/Vol] Negative Normal [facility]; [facility] Work Phone: Hemoglobin Ql (U) Negative Normal Compreh ensive [facility]; [facility] Work Phone: Ketones Ql (U) Negative Normal Comprehens [facility]; [facility] Work Phone: Leukocyte esterase Test strip Ql (U) Small Normal [facility]; [facility] Work Phone: Nitrite Ql (U) Negative Normal Comprehens [facility]; [facility] Work Phone: pH (U) 6.0 [pH] Normal [facility]; [facility] Work Phone: Protein Ql (U) Negative Normal Comprehens [facility]; [facility] Work Phone: Specific gravity (U) [Rel density] 1.015 1 Normal [facility]; [facility] Work Phone: Urobilinogen (24H U) [Mass/Time] Normal Normal [facility]; [facility] Work Phone: URINE JESÚS CULTURE-IDENTIFICA [place] ([id number])Ordered By: Half Sole Fitter on 11-07-2022 Bacteria identified Cx Nom (U) Final report Abnormal [facility]; [facility] Work Phone: Comment on above: PATIENT NOT FASTINGP ERFORMED BY: WINDY [facility]Car[facility] [id number] Information: SRC:UC Bacteria identified Cx Nom (U) Klebsiella pneumoniae Abnormal Com[facility]; [facility] Work Phone: Comment on above: Cefazolin <=4 ug/mLC efazolin with an HILARY <=16 predicts susceptibility to the oral agentscefaclor, cefdinir, cefpodoxime, cefprozil, cefuroxime, cephalexin,and loracarbef when used for therapy of uncomplicated urinary tractinfections due to E. coli, Klebsiella pneumoniae, and Proteusmirabilis.50,000-100,000 colony forming units per mL PATIENT NOT FASTINGP ERFORMED BY: [employer] [facility]Car[facility] [id number] Information: SRC: Bacteria identified Cx Nom (U) MUG Normal [...] S PATIENT NOT FASTINGP ERFORMED BY: WINDY [facility] [id number] [facility] [id number] Information: SRC: Urinalysis, Office ([phone])Or dered By: Sea Parry on 11-07-2022 Bilirubin [...] percentageon 2021 Basophil percentage 3.0 mg/dL 2.5-4.9 [facility] Work Phone: Chloride [Moles/Vol] 105 mmol/L 98-107 [facility] Work Phone: Glucose [Mass/Vol] 100 mg/dL 74-106 [facility] Work Phone: Comment on above: Fasting Glucose resu lt from 100 to 125 mg/dL suggests IMPAIRED HOMEOSTASIS per A.D.A. criteria. Potassium [Moles/Vol] 4.2 mmol/L 3.5-5.1 [facility] Work Phone: Sodium [Moles/Vol] 139 mmol/L 136-145 [facility] Work Phone: Laboratory - Chemistry and C hemistry - challengeon 10-31-2022 CO2 [Moles/Vol] 29.0 mmol/L 21.0-32.0 [facility] Work Phone: Urea nitrogen/Creatinine [Mass ratio] 13.8 mg/mg 10-20 [facility] Work Phone: No Panel Informationon 10-31 Estimated GFR (MDRD) Amer 55 mL/min >60 [facility] Work Phone: Comment on above: GFR Calc Estimated GFR (MDRD) Non-Af Amer 45 mL/min >60 [facility] Work Phone: Comment on above: Non- GFR Calc Serum or plasma albumin be urement (mass/volume)on 10-31-2022 Albumin [Mass/Vol] 3.5 g/dL 3.2-5.0 [facility] Work Phone: Serum or plasma calcium be urement (mass/volume)on 10-31-2022 Calcium [Mass/Vol] 9.0 mg/dL 8.5-10.1 [facility] Work Phone: Serum or plasma creatinine m easurement (mass/volume)on 10-31-2022 Creatinine [Mass/Vol] 1.23 mg/dL 0.55-1.02 [facility] Work Phone: Comment on above: The validity of the calculated GFR & GFRAA in patients over 70 years has not been determined. Clinical correlation is essential. Serum or plasma urea nitroge n measurement (mass/volume)on 10-31-2022 Urea nitrogen [Mass/Vol] 17 mg/dL 7-18 [facility] Work Phone: Basophil percentageon 2021 Basophil percentage 2.7 mg/dL 2.5-4.9 [facility] Work Phone: Chloride [Moles/Vol] 105 mmol/L 98-107 [facility] Work Phone: Glucose [Mass/Vol] 106 mg/dL 74-106 [facility] Work Phone: Comment on above: Fasting Glucose resu lt from 100 to 125 mg/dL suggests IMPAIRED HOMEOSTASIS per A.D.A. criteria. Potassium [Moles/Vol] 4.2 mmol/L 3.5-5.1 [facility] Work Phone: Sodium [Moles/Vol] 138 mmol/L 136-145 [facility] Work Phone: Laboratory - Chemistry and C hemistry - challengeon 10-08-2022 CO2 [Moles/Vol] 28.0 mmol/L 21.0-32.0 [facility] Work Phone: Urea nitrogen/Creatinine [Mass ratio] 13.6 mg/mg 10-20 [facility] Work Phone: No Panel Informationon 10-08 Estimated GFR (MDRD) Amer 57 mL/min >60 [facility] Work Phone: Comment on above: GFR Calc Estimated GFR (MDRD) Non-Af Amer 47 mL/min >60 [facility] Work Phone: Comment on above: Non- GFR Calc Serum or plasma albumin be urement (mass/volume)on 10-08-2022 Albumin [Mass/Vol] 3.4 g/dL 3.2-5.0 [facility] Work Phone: Serum or plasma calcium be urement (mass/volume)on 10-08-2022 Calcium [Mass/Vol] 8.7 mg/dL 8.5-10.1 [facility] Work Phone: Serum or plasma creatinine m easurement (mass/volume)on 10-08-2022 Creatinine [Mass/Vol] 1.18 mg/dL 0.55-1.02 [facility] Work Phone: Comment on above: The validity of the calculated GFR & GFRAA in patients over 70 years has not been determined. Clinical correlation is essential. Serum or plasma urea nitroge n measurement (mass/volume)on 10-08-2022 Urea nitrogen [Mass/Vol] 16 mg/dL 7-18 [facility] Work Phone: URINE JES[place] ([id number])Ordered By: Half Sole Fitter on 09-24-2022 Bacteria identified Cx Nom (U) Final report Abnormal [facility]; [facility] Work Phone: Comment on above: PATIENT NOT FASTINGP ERFORMED BY: WINDY [employer] River TechnologiesAt[facility] [id number] Information: SRC:UC Bacteria identified Cx Nom (U) [...] A). (CLSI) PATIENT NOT FASTINGP ERFORMED BY: &TV CommunicationsDublin [place] [id number] Information: SRC: Urinalysis, Office ([id number])Or dered By: Citlali Gonzalez on 09-24-2022 Bilirubin [...] density] 1.020 1 Normal [facility]; [facility] Work Phone: Urobilinogen (24H U) [Mass/Time] Normal Normal [facility]; [facility] Work Phone: Absolute lymphocyte counton 05-16-2022 Lymphocytes Auto (Unsp spec) [#/Vol] 1.93 10*3/uL 0.83-4.51 [facility] Work Phone: Basophil percentageon 2021 Basophil percentage 3.2 mg/dL 2.5-4.9 [place] [facility] Work Phone: Chloride [Moles/Vol] 112 mmol/L 98-[address] [facility] Work Phone: Glucose [Mass/Vol] 99 mg/dL 74-106 [place] [facility] Work Phone: Potassium [Moles/Vol] 4.6 mmol/L 3.5-5.1 [facility] Work Phone: Sodium [Moles/Vol] 144 mmol/L 136-145 [facility] Work Phone: Basophil percentage 0 SEEN /hpf 0-5 [facility] Work Phone: Basophils/100 WBC (Bld) 0.7 % 0-1 [facility] Work Phone: Chloride [Moles/Vol] 108 mmol/L 98-107 [facility] Work Phone: Eosinophils/100 WBC (Bld) 3.5 % 0-5 [facility] Work Phone: Glucose [Mass/Vol] 106 mg/dL 74-106 [facility] Work Phone: Comment on above: Fasting Glucose resu lt from 100 to 125 mg/dL suggests IMPAIRED HOMEOSTASIS per A.D.A. criteria. Neutrophils (Bld) [#/Vol] 3.1 10*3/uL 2.0-7.7 [facility] Work Phone: Neutrophils/100 WBC (Bld) 52.8 % 47-70 [facility] Work Phone: Potassium [Moles/Vol] 4.1 mmol/L 3.5-5.1 [facility] Work Phone: Comment on above: Moderate Hemolysis, Result may be falsely increased. Sodium [Moles/Vol] 142 mmol/L 136-145 [facility] Work Phone: WBC (Bld) [#/Vol] 6.0 10*3/uL 4.4-11.0 [facility] Work Phone: Bilirubin Test strip Ql (U)o n 05-16-2022 Bilirubin Ql (U) Negative Negative [facility] Work Phone: Blood erythrocytes count (nu mber/volume)on 05-16-2022 RBC (Bld) [#/Vol] 4.56 10*6/uL 4.2-5.4 [facility] Work Phone: Blood hemoglobin measurement (mass/volume)on 05-16-2022 Hemoglobin (Bld) [Mass/Vol] 12.7 g/dL 12.0-15.0 [facility] Work Phone: Blood lymphocytes/100 leukoc yteson 05-16-2022 Lymphocytes/100 WBC (Bld) 32.4 % 19-41 [facility] Work Phone: Blood monocytes/100 leukocyt eson 05-16-2022 Monocytes/100 WBC (Bld) 10.4 % 0-10 [facility] Work Phone: Blood platelet mean volumeon 05-16-2022 Platelet mean volume (Bld) [Entitic vol] 9.8 fL 6.2-12.0 [facility] Work Phone: Determination of erythrocyte mean corpuscular volume (MCV)on 05-16-2022 MCV (RBC) [Entitic vol] 87.3 fL 81-99 [facility] Work Phone: Hematocrit Auto (Bld) [Volum e fraction]on 05-16-2022 Hematocrit (Bld) [Volume fraction] 39.8 % 37-47 [facility] Work Phone: Ketones Test strip Ql (U)on 05-16-2022 Ketones Ql (U) Negative Negative [facility] Work Phone: Laboratory - Chemistry and C hemistry - challengeon 05-16-2022 CO2 [Moles/Vol] 30.0 mmol/L 21.0-32.0 [facility] Work Phone: Urea nitrogen/Creatinine [Mass ratio] 14.9 mg/mg 10-20 [facility] Work Phone: CO2 [Moles/Vol] 29.0 mmol/L 21.0-32.0 [facility] Work Phone: Magnesium [Mass/Vol] 2.2 mg/dL 1.6-2.6 [facility] Work Phone: Comment on above: Moderate Hemolysis, Result may be falsely increased. Urea nitrogen/Creatinine [Mass ratio] 14.2 mg/mg 10-20 [facility] Work Phone: Laboratory - Hematology and Cell countson 05-16-2022 Erythrocyte distribution width (RBC) [Entitic vol] 47.1 fL 35.1-43.9 [facility] Work Phone: Erythrocyte distribution width (RBC) [Ratio] 14.7 % 11.6-14.6 [facility] Work Phone: Immature granulocytes/100 WBC (Bld) 0.200 % 0.0-0.9 [facility] Work Phone: Comment on above: IG% - Immature Granu locytes (promyelocytes, myelocytes and metamyelocytes) > 1% indicates that a LEFT SHIFT is Present. MCH (RBC) [Entitic mass] 27.9 pg 27.0-32.0 [facility] Work Phone: Nucleated RBC/100 WBC (Bld) [Ratio] 0 % 0-5 [facility] Work Phone: MCHC Auto (RBC) [Mass/Vol]on 05-16-2022 MCHC (RBC) [Mass/Vol] 31.9 g/dL 32-36 [facility] Work Phone: Mucus LM Ql (Urine sed)on Mucus Ql (Urine sed) 0 SEEN /hpf [facility] Work Phone: Nitrite Test strip Ql (U)on 05-16-2022 Nitrite Ql (U) Negative Negative [facility] Work Phone: No Panel Informationon 05-16 Estimated GFR (MDRD) Amer 45 mL/min >60 [facility] Work Phone: Estimated GFR (MDRD) Non-Af Amer 37 mL/min >60 [facility] Work Phone: Estimated Creatinine Clearance Calc 24.78 ml/min [facility] Work Phone: Troponin I High Sensitivity 8 pg/mL 3.0-54.0 [facility] Work Phone: Comment on above: Please Note: New Lilian t Units and Gender Specific Reference Ranges. For more information see Policy Stat Procedure Coplay High Sensitivity Troponin (TNIH) and attachments. Estimated GFR (MDRD) Amer 40 mL/min >60 [facility] Work Phone: Comment on above: GFR Calc Estimated GFR (MDRD) Non-Af Amer 33 mL/min >60 [facility] Work Phone: Comment on above: Non- GFR Calc Platelets bldon 05-16-2022 Platelets (Bld) [#/Vol] 346 10*3/uL 150-450 [facility] Work Phone: Protein Test strip Ql (U)on 05-16-2022 Protein Ql (U) Negative Negative [facility] Work Phone: Serum or plasma albumin be urement (mass/volume)on 05-16-2022 Albumin [Mass/Vol] 3.5 g/dL 3.2-5.0 [facility] Work Phone: Serum or plasma calcium be urement (mass/volume)on 05-16-2022 Calcium [Mass/Vol] 8.7 mg/dL 8.5-10.1 [facility] Work Phone: Calcium [Mass/Vol] 8.7 mg/dL 8.5-10.1 [facility] Work Phone: Serum or plasma creatinine m easurement (mass/volume)on 05-16-2022 Creatinine [Mass/Vol] 1.48 mg/dL 0.55-1.02 [facility] Work Phone: Comment on above: The validity of the calculated GFR & GFRAA in patients over 70 years has not been determined. Clinical correlation is essential. Creatinine [Mass/Vol] 1.62 mg/dL 0.55-1.02 [facility] Work Phone: Comment on above: The validity of the calculated GFR & GFRAA in patients over 70 years has not been determined. Clinical correlation is essential. Serum or plasma urea nitroge n measurement (mass/volume)on 05-16-2022 Urea nitrogen [Mass/Vol] 22 mg/dL 7-18 [facility] Work Phone: Urea nitrogen [Mass/Vol] 23 mg/dL 18 [facility] Work Phone: Squamous epithelial cells de tection in urine sediment by light microscopyon 05-16-2022 Epithelial cells.squamous LM Ql (Urine sed) 0-5 SEEN /hpf 5-10 [facility] Work Phone: Thin prep Papanicolaou smear with manual screeningon 05-16-2022 Thin prep Papanicolaou smear with manual screening 5 5-15 [facility] Work Phone: Urine blood detectionon 05-01 RBC Ql (U) Negative Negative [facility] Work Phone: RBC Ql (U) 0 SEEN /hpf 0-5 [facility] Work Phone: Urine clarityon 05-16-2022 Clarity (U) Clear Clear [facility] Work Phone: Urine color determinationon 05-16-2022 Color (U) Yellow Yellow [facility] Work Phone: Urine glucose detectionon Glucose Ql (U) Normal mg/dl Normal [facility] Work Phone: Urine leukocyte esterase det ection by dipstickon 05-16-2022 Leukocyte esterase Test strip Ql (U) Negative Negative [facility] Work Phone: Urine pHon 05-16-2022 pH (U) 7.0 [pH] 5.0 - 8.0 [facility] Work Phone: Urine sediment bacteria coun t by microscopy (number/high power field)on 05-16-2022 Bacteria LM.HPF (Urine sed) [#/Area] RARE /hpf None Seen [facility] Work Phone: Urine specific gravity measu rementon 05-16-2022 Specific gravity (U) [Rel density] 1.010 1.002-1.030 [facility] Work Phone: Urobilinogen Auto test strip Ql (U)on 05-16-2022 Urobilinogen Ql (U) Normal mg/dl Normal [facility] Work Phone: Blood Glucose , Office ([phone])Ordered By: Marry Marroquin on 03-11-2022 Glucose Glucometer (BldC) [Moles/Vol] 109 1 Normal [facility]; [facility] Work Phone: HgA1C , Office ([phone])Ordere d By: Marry Marroquin on 03-11-2022 HbA1c (Bld) [Mass fraction] 5.7 % Normal 4.6 - 7.1 [facility]; [facility] Work Phone: Metabolic Panel, Comprehensi ve ([id number])Ordered By: Half Sole Fitter on 03-11-2022 Albumin [Mass/Vol] 3.9 g/dL Normal 3.7-4.7 [facility]; [facility] Work Phone: Comment on above: PATIENT NOT FASTINGP ERFORMED BY: WINDY [employer] Pharmaceuticalsrp [id number] [id number] Albumin/Globulin [Mass ratio] 1.4 {ratio} Normal 1.2-2.2 [facility]; [facility] Work Phone: Comment on above: PATIENT NOT FASTINGP ERFORMED BY: CB [facility] [id number] FlutterDublin [place] [id number] ALP [Catalytic activity/Vol] 29 U/L Abnormal 44-121 [facility]; [facility] Work Phone: Comment on above: PATIENT NOT FASTINGP ERFORMED BY: CB [facility] [id number] [address] RoadDublin [place] [id number] ALT [Catalytic activity/Vol] 20 U/L Normal 0-32 [facility]; [facility] Work Phone: Comment on above: PATIENT NOT FASTINGP ERFORMED BY: CB [facility] [id number] [address] RoadDublin [place] [id number] AST [Catalytic activity/Vol] 23 U/L Normal 0-40 [facility]; [facility] Work Phone: Comment on above: PATIENT NOT FASTINGP ERFORMED BY: WINDY [employer] [id number] [address] RoadDublin [place] [id number] Bilirubin [Mass/Vol] 0.4 mg/dL Normal 0.0-1.2 [facility] rehensive Internal Medicine; [facility] Work Phone: Comment on above: PATIENT NOT FASTINGP ERFORMED BY: CB [facility] [id number] [address] RoadDuin [place] [id number] Calcium [Mass/Vol] 9.7 mg/dL Normal 8.7-10.3 [facility]; [facility] Work Phone: Comment on above: PATIENT NOT FASTINGP ERFORMED BY: CB [facility] [id number] RoadDuin [place] [id number] Chloride [Moles/Vol] 106 mmol/L Normal 96-106 [facility] rehensive [facility]; [facility] Work Phone: Comment on above: PATIENT NOT FASTINGP ERFORMED BY: CB [facility] [id number]First[facility] [place] [id number] CO2 [Moles/Vol] 25 mmol/L Normal 20-29 [facility]; [facility] Work Phone: Comment on above: PATIENT NOT FASTINGP ERFORMED BY: CB [facility] [id number] RoadFirsthealth [facility] [place] [id number] Creatinine [Mass/Vol] 1.20 mg/dL Abnormal 0.57-1.00 [facility]; [facility] Work Phone: Comment on above: PATIENT NOT FASTINGP ERFORMED BY: CB [facility] [id number] [facility] [place] [id number] GFR/1.73 sq M.predicted among non-blacks MDRD (S/P/Bld) [Vol rate/Area] 47 mL/min/{1.73_m2} Abnormal Comprehensiv e Internal Medicine; [facility] Work Phone: Comment on above: PATIENT NOT FASTINGP ERFORMED BY: CB [facility] [id number]Dublin [place] [id number] Globulin (S) [Mass/Vol] 2.7 g/dL Normal 1.5-4.5 [facility]; [facility] Work Phone: Comment on above: PATIENT NOT FASTINGP ERFORMED BY: CB [facility] [id number]Dublin [place] [id number] Glucose [Mass/Vol] 88 mg/dL Normal 65-99 [facility]; [facility] Work Phone: Comment on above: PATIENT NOT FASTINGP ERFORMED BY: CB [facility] [id number]Dublin [place] [id number] Potassium [Moles/Vol] 4.5 mmol/L Normal 3.5-5.2 [facility]; [facility] Work Phone: Comment on above: PATIENT NOT FASTINGP ERFORMED BY: CB [facility] [id number]Dublin [place] [id number] Protein [Mass/Vol] 6.6 g/dL Normal 6.0-8.5 [facility] Internal Medicine; [facility] Work Phone: Comment on above: PATIENT NOT FASTINGP ERFORMED BY: CB [facility] [id number]Dublin [place] [id number] Sodium [Moles/Vol] 144 mmol/L Normal 134-144 [facility] Internal Medicine; [facility] Work Phone: Comment on above: PATIENT NOT FASTINGP ERFORMED BY: CB [facility] [id number]Dublin [place] [id number] Urea nitrogen [Mass/Vol] 18 mg/dL Normal 8-27 [facility]; [facility] Work Phone: Comment on above: PATIENT NOT FASTINGP ERFORMED BY: CB [facility] [id number]Dublin [place] [id number] Urea nitrogen/Creatinine [Mass ratio] 15 mg/mg Normal 12-28 [facility]; [facility] Work Phone: Comment on above: PATIENT NOT FASTINGP ERFORMED BY: [facility] [id number] Estrella PowersFirsthealth [facility] [place]christoph [place] [id number] Metabolic Panel, Comprehensive ([id number]) 47 mL/min/1.73 Abnormal Comprehens saira Internal Medicine; [facility] Work Phone: No Panel Informationon 03-04 Thyroid Stimulating Hormone (TSH) 2.92 uIU/mL 0.358-3.74 [facility] Work Phone: Absolute lymphocyte counton 02-28-2022 Lymphocytes Auto (Unsp spec) [#/Vol] 1.43 10*3/uL 0.83-4.51 [facility] Work Phone: Basophil percentageon 2021 Basophil percentage 0 SEEN /hpf 0-5 [facility] Work Phone: Basophils/100 WBC (Bld) 0.5 % 0-1 [facility] Work Phone: Chloride [Moles/Vol] 109 mmol/L 98-107 [facility] Work Phone: Eosinophils/100 WBC (Bld) 2.0 % 0-5 [facility] Work Phone: Glucose [Mass/Vol] 127 mg/dL 74-106 [facility] Work Phone: Comment on above: Fasting Glucose resu lt greater than or equal to 126 mg/dL suggests DIABETES MELLITUS per A.D.A. criteria. Neutrophils (Bld) [#/Vol] 3.8 10*3/uL 2.0-7.7 [facility] Work Phone: Neutrophils/100 WBC (Bld) 64.9 % 47-70 [facility] Work Phone: Potassium [Moles/Vol] 3.8 mmol/L 3.5-5.1 [facility] Work Phone: Sodium [Moles/Vol] 141 mmol/L 136-145 [facility] Work Phone: WBC (Bld) [#/Vol] 5.9 10*3/uL 4.4-11.0 [facility] Work Phone: Bilirubin Test strip Ql (U)o n 02-28-2022 Bilirubin Ql (U) Negative Negative [facility] Work Phone: Blood erythrocytes count (nu mber/volume)on 02-28-2022 RBC (Bld) [#/Vol] 4.76 10*6/uL 4.2-5.4 [facility] Work Phone: Blood hemoglobin measurement (mass/volume)on 02-28-2022 Hemoglobin (Bld) [Mass/Vol] 12.5 g/dL 12.0-15.0 [facility] Work Phone: Blood lymphocytes/100 leukoc yteson 02-28-2022 Lymphocytes/100 WBC (Bld) 24.3 % 19-41 [facility] Work Phone: Blood monocytes/100 leukocyt eson 02-28-2022 Monocytes/100 WBC (Bld) 8.0 % 0-10 [facility] Work Phone: Blood platelet mean volumeon 02-28-2022 Platelet mean volume (Bld) [Entitic vol] 9.3 fL 6.2-12.0 [facility] Work Phone: Determination of erythrocyte mean corpuscular volume (MCV)on 02-28-2022 MCV (RBC) [Entitic vol] 84.2 fL 81-99 [facility] Work Phone: Hematocrit Auto (Bld) [Volum e fraction]on 02-28-2022 Hematocrit (Bld) [Volume fraction] 40.1 % 37-47 [facility] Work Phone: Ketones Test strip Ql (U)on 02-28-2022 Ketones Ql (U) Negative Negative [facility] Work Phone: Laboratory - Chemistry and C hemistry - challengeon 02-28-2022 CO2 [Moles/Vol] 28.0 mmol/L 21.0-32.0 [facility] Work Phone: Urea nitrogen/Creatinine [Mass ratio] 18.1 mg/mg 10-20 [facility] Work Phone: Laboratory - Hematology and Cell countson 02-28-2022 Erythrocyte distribution width (RBC) [Entitic vol] 45.5 fL 35.1-43.9 [facility] Work Phone: Erythrocyte distribution width (RBC) [Ratio] 14.8 % 11.6-14.6 [facility] Work Phone: Immature granulocytes/100 WBC (Bld) 0.300 % 0.0-0.9 [facility] Work Phone: Comment on above: IG% - Immature Granu locytes (promyelocytes, myelocytes and metamyelocytes) > 1% indicates that a LEFT SHIFT is Present. MCH (RBC) [Entitic mass] 26.3 pg 27.0-32.0 [facility] Work Phone: Nucleated RBC/100 WBC (Bld) [Ratio] 0 % 0-5 [facility] Work Phone: MCHC Auto (RBC) [Mass/Vol]on 02-28-2022 MCHC (RBC) [Mass/Vol] 31.2 g/dL 32-36 [facility] Work Phone: Mucus LM Ql (Urine sed)on Mucus Ql (Urine sed) 0 SEEN /hpf [facility] Work Phone: Nitrite Test strip Ql (U)on 02-28-2022 Nitrite Ql (U) Negative Negative [facility] Work Phone: No Panel Informationon 02-28 Estimated Creatinine Clearance Calc 25.47 ml/min [facility] Work Phone: Estimated GFR (MDRD) Amer 46 mL/min >60 [facility] Work Phone: Comment on above: GFR Calc Estimated GFR (MDRD) Non-Af Amer 38 mL/min >60 [facility] Work Phone: Comment on above: Non- GFR Calc Troponin I High Sensitivity < 3 pg/mL 3.0-54.0 [facility] Work Phone: Comment on above: Please Note: New Lilian t Units and Gender Specific Reference Ranges. For more information see Policy Stat Procedure Coplay High Sensitivity Troponin (TNIH) and attachments. Platelets bldon 02-28-2022 Platelets (Bld) [#/Vol] 333 10*3/uL 150-450 [facility] Work Phone: Protein Test strip Ql (U)on 02-28-2022 Protein Ql (U) Negative Negative [facility] Work Phone: Serum or plasma calcium be urement (mass/volume)on 02-28-2022 Calcium [Mass/Vol] 8.7 mg/dL 8.5-10.1 [facility] Work Phone: Serum or plasma creatinine m easurement (mass/volume)on 02-28-2022 Creatinine [Mass/Vol] 1.44 mg/dL 0.55-1.02 [facility] Work Phone: Comment on above: The validity of the calculated GFR & GFRAA in patients over 70 years has not been determined. Clinical correlation is essential. Serum or plasma urea nitroge n measurement (mass/volume)on 02-28-2022 Urea nitrogen [Mass/Vol] 26 mg/dL 7-18 [facility] Work Phone: Squamous epithelial cells de tection in urine sediment by light microscopyon 02-28-2022 Epithelial cells.squamous LM Ql (Urine sed) 0 SEEN /hpf 5-10 [facility] Work Phone: Thin prep Papanicolaou smear with manual screeningon 02-28-2022 Thin prep Papanicolaou smear with manual screening 4 5-15 [facility] Work Phone: Urine blood detectionon 01-31 RBC Ql (U) Negative Negative [facility] Work Phone: RBC Ql (U) 0 SEEN /hpf 0-5 [facility] Work Phone: Urine clarityon 02-28-2022 Clarity (U) Clear Clear [facility] Work Phone: Urine color determinationon 02-28-2022 Color (U) Yellow Yellow [facility] Work Phone: Urine glucose detectionon Glucose Ql (U) Normal mg/dl Normal [facility] Work Phone: Urine leukocyte esterase det ection by dipstickon 02-28-2022 Leukocyte esterase Test strip Ql (U) Negative Negative [facility] Work Phone: Urine pHon 02-28-2022 pH (U) 6.5 [pH] 5.0 - 8.0 [facility] Work Phone: Urine sediment bacteria coun t by microscopy (number/high power field)on 02-28-2022 Bacteria LM.HPF (Urine sed) [#/Area] 0 /[HPF] None Seen [facility] Work Phone: Urine specific gravity measu rementon 02-28-2022 Specific gravity (U) [Rel density] 1.010 1.002-1.030 [facility] Work Phone: Urobilinogen Auto test strip Ql (U)on 02-28-2022 Urobilinogen Ql (U) Normal mg/dl Normal [facility] Work Phone: Culture, urineon 02-25-2022 Bacteria identified Cx Nom (U) Klebsiella pneumoniae sp pneum [facility] Work Phone: Laboratory - Chemistry and C hemistry - challengeon 02-25-2022 Bilirubin Ql (U) Negative [facility] Work Phone: Glucose Ql (U) Negative [facility] Work Phone: Ketones Ql (U) Trace (5) [facility] Work Phone: pH (U) 5.0 [pH] [facility] Work Phone: Specific gravity (U) [Rel density] 1.005 [facility] Work Phone: Urobilinogen (U) [Mass/Vol] Negative [facility] Work Phone: Laboratory - Hematology and Cell countson 02-25-2022 Hemoglobin Ql (U) Trace [facility] Work Phone: Laboratory - Specimen inform ationon 02-25-2022 Clarity (U) Clear [facility] Work Phone: Color (U) YELLOW [facility] Work Phone: Laboratory - Urinalysison Nitrite Ql (U) Negative [facility] Work Phone: Protein Ql (U) Negative [facility] Work Phone: No Panel Informationon 02-25 Urine Leukocytes Positive [facility] Work Phone: Urine Non-Hemolyzed Blood Trace [facility] Work Phone: Absolute lymphocyte counton 01-26-2022 Lymphocytes Auto (Unsp spec) [#/Vol] 1.63 10*3/uL 0.83-4.51 [facility] Work Phone: Basophil percentageon 2021 Basophils/100 WBC (Bld) 1.0 % 0-1 [facility] Work Phone: Cholesterol [Mass/Vol] 125 mg/dL <200 [facility] Work Phone: Comment on above: <200 mg/dL Desirable 200-240 mg/dL Borderline >240 mg/dL High Risk Eosinophils/100 WBC (Bld) 3.0 % 0-5 [facility] Work Phone: Neutrophils (Bld) [#/Vol] 2.7 10*3/uL 2.0-7.7 [facility] Work Phone: Neutrophils/100 WBC (Bld) 54.0 % 47-70 [facility] Work Phone: Triglyceride [Mass/Vol] 89 mg/dL <199 [facility] Work Phone: Comment on above: The drugs N-Acetylcy steine and Metamizole may falsely depress this assay.Serum Triglycerides Reference Interval Normal <150 mg/dL Borderline high 150 - 199 mg/dL High 200 - 499 mg/dL Very High > or = 500 mg/dL WBC (Bld) [#/Vol] 5.0 10*3/uL 4.4-11.0 [facility] Work Phone: Blood erythrocytes count (nu mber/volume)on 01-26-2022 RBC (Bld) [#/Vol] 4.71 10*6/uL 4.2-5.4 [facility] Work Phone: Blood hemoglobin measurement (mass/volume)on 01-26-2022 Hemoglobin (Bld) [Mass/Vol] 12.5 g/dL 12.0-15.0 [facility] Work Phone: Blood lymphocytes/100 leukoc yteson 01-26-2022 Lymphocytes/100 WBC (Bld) 32.9 % 19-41 [facility] Work Phone: Blood monocytes/100 leukocyt eson 01-26-2022 Monocytes/100 WBC (Bld) 8.9 % 0-10 [facility] Work Phone: Blood platelet mean volumeon 01-26-2022 Platelet mean volume (Bld) [Entitic vol] 9.3 fL 6.2-12.0 [facility] Work Phone: Determination of erythrocyte mean corpuscular volume (MCV)on 01-26-2022 MCV (RBC) [Entitic vol] 83.2 fL 81-99 [facility] Work Phone: Hematocrit Auto (Bld) [Volum e fraction]on 01-26-2022 Hematocrit (Bld) [Volume fraction] 39.2 % 37-47 [facility] Work Phone: Laboratory - Hematology and Cell countson 01-26-2022 Erythrocyte distribution width (RBC) [Entitic vol] 43.5 fL 35.1-43.9 [facility] Work Phone: Erythrocyte distribution width (RBC) [Ratio] 14.5 % 11.6-14.6 [facility] Work Phone: Immature granulocytes/100 WBC (Bld) 0.200 % 0.0-0.9 [facility] Work Phone: Comment on above: IG% - Immature Granu locytes (promyelocytes, myelocytes and metamyelocytes) > 1% indicates that a LEFT SHIFT is Present. MCH (RBC) [Entitic mass] 26.5 pg 27.0-32.0 [facility] Work Phone: Nucleated RBC/100 WBC (Bld) [Ratio] 0 % 0-5 [facility] Work Phone: MCHC Auto (RBC) [Mass/Vol]on 01-26-2022 MCHC (RBC) [Mass/Vol] 31.9 g/dL 32-36 [facility] Work Phone: No Panel Informationon 01-26 Thyroid Stimulating Hormone (TSH) 3.79 uIU/mL 0.358-3.74 [facility] Work Phone: Platelets bldon 01-26-2022 Platelets (Bld) [#/Vol] 314 10*3/uL 150-450 [facility] Work Phone: Serum or plasma cholesterol in HDL measurement (mass/volume)on 01-26-2022 Cholesterol in HDL [Mass/Vol] 64 mg/dL >40 [facility] Work Phone: Comment on above: The drugs N-Acetylcy steine and Metamizole may falsely depress this assay. Reference Range HDL <40 mg/dL Low HDL Cholesterol HDL >or= 60 mg/dL High HDL Cholesterol Serum or plasma cholesterol in VLDL measurement (mass/volume)on 01-26-2022 Cholesterol in VLDL [Mass/Vol] 18 mg/dL 5-40 [facility] Work Phone: Serum or plasma low density lipoprotein (LDL) cholesterol measurement (mass/volume)on 01-26-2022 Cholesterol in LDL [Mass/Vol] 43 mg/dL 0-130 [facility] Work Phone: No Panel Informationon 12-12 Parathyroid Hormone (Intact) 15.7 pg/mL 18.4-80.1 [facility] Work Phone: Vitamin D 25-Hydroxy 29.8 ng/mL [facility] Work Phone: Comment on above: Vitamin D 25(OH) Sta tus Range Deficiency <20 ng/mL (50nmol/L) Insufficiency 20 - 30 ng/mL (50 - 75 nmol/L) Sufficiency 30 - 100 ng/mL (75 - 250 nmol/L) Toxicity >100 ng/mL (>250 nmol/L) Absolute lymphocyte counton 12-03-2021 Lymphocytes Auto (Unsp spec) [#/Vol] 1.88 10*3/uL 0.83-4.51 [facility] Work Phone: Basophil percentageon 2021 Basophils/100 WBC (Bld) 1.2 % 0-1 [facility] Work Phone: Bilirubin [Mass/Vol] 0.40 mg/dL 0.20-1.00 [facility] Work Phone: Comment on above: For patients on eltr ombopag therapy, use of Dimension Coplay TBIL is not recommended. Chloride [Moles/Vol] 110 mmol/L 98-107 [facility] Work Phone: Cholesterol [Mass/Vol] 130 mg/dL <200 [facility] Work Phone: Comment on above: <200 mg/dL Desirable 200-240 mg/dL Borderline >240 mg/dL High Risk Eosinophils/100 WBC (Bld) 2.6 % 0-5 [facility] Work Phone: Glucose [Mass/Vol] 95 mg/dL 74-106 [facility] Work Phone: Comment on above: Please note revised GLUCOSE reference range effective 2018. Neutrophils (Bld) [#/Vol] 3.5 10*3/uL 2.0-7.7 [facility] Work Phone: Neutrophils/100 WBC (Bld) 57.4 % 47-70 [facility] Work Phone: Potassium [Moles/Vol] 4.2 mmol/L 3.5-5.1 [facility] Work Phone: Protein [Mass/Vol] 7.3 g/dL 6.4-8.2 [facility] Work Phone: Sodium [Moles/Vol] 140 mmol/L 136-145 [facility] Work Phone: Triglyceride [Mass/Vol] 72 mg/dL [facility] Work Phone: Comment on above: The drugs N-Acetylcy steine and Metamizole may falsely depress this assay.Serum Triglycerides Reference Interval Normal <150 mg/dL Borderline high 150 - 199 mg/dL High 200 - 499 mg/dL Very High > or = 500 mg/dL WBC (Bld) [#/Vol] 6.1 10*3/uL 4.4-11.0 [facility] Work Phone: Blood erythrocytes count (nu mber/volume)on 12-03-2021 RBC (Bld) [#/Vol] 4.82 10*6/uL 4.2-5.4 [facility] Work Phone: Blood hemoglobin measurement (mass/volume)on 12-03-2021 Hemoglobin (Bld) [Mass/Vol] 12.9 g/dL 12.0-15.0 [facility] Work Phone: Blood lymphocytes/100 leukoc yteson 12-03-2021 Lymphocytes/100 WBC (Bld) 31.0 % 19-41 [facility] Work Phone: Blood monocytes/100 leukocyt eson 12-03-2021 Monocytes/100 WBC (Bld) 7.6 % 0-10 [facility] Work Phone: Blood platelet mean volumeon 12-03-2021 Platelet mean volume (Bld) [Entitic vol] 9.1 fL 6.2-12.0 [facility] Work Phone: Determination of erythrocyte mean corpuscular volume (MCV)on 12-03-2021 MCV (RBC) [Entitic vol] 84.9 fL 81-99 [facility] Work Phone: Hematocrit Auto (Bld) [Volum e fraction]on 12-03-2021 Hematocrit (Bld) [Volume fraction] 40.9 % 37-47 [facility] Work Phone: Laboratory - Chemistry and C hemistry - challengeon 12-03-2021 ALP [Catalytic activity/Vol] 26 U/L 45-117 [facility] Work Phone: ALT [Catalytic activity/Vol] 27 U/L 13-56 [facility] Work Phone: CO2 [Moles/Vol] 25.0 mmol/L 21.0-32.0 [facility] Work Phone: Globulin (S) [Mass/Vol] 4.0 g/dL 2.2-4.2 [facility] Work Phone: Urea nitrogen/Creatinine [Mass ratio] 18.0 mg/mg 10-20 [facility] Work Phone: Laboratory - Hematology and Cell countson 12-03-2021 Erythrocyte distribution width (RBC) [Entitic vol] 46.5 fL 35.1-43.9 [facility] Work Phone: Erythrocyte distribution width (RBC) [Ratio] 14.9 % 11.6-14.6 [facility] Work Phone: Immature granulocytes/100 WBC (Bld) 0.200 % 0.0-0.9 [facility] Work Phone: Comment on above: IG% - Immature Granu locytes (promyelocytes, myelocytes and metamyelocytes) > 1% indicates that a LEFT SHIFT is Present. MCH (RBC) [Entitic mass] 26.8 pg 27.0-32.0 [facility] Work Phone: Nucleated RBC/100 WBC (Bld) [Ratio] 0 % 0-5 [facility] Work Phone: MCHC Auto (RBC) [Mass/Vol]on 12-03-2021 MCHC (RBC) [Mass/Vol] 31.5 g/dL 32-36 [facility] Work Phone: No Panel Informationon 12-03 Estimated GFR (MDRD) Amer 55 mL/min >60 [facility] Work Phone: Comment on above: GFR Calc Estimated GFR (MDRD) Non-Af Amer 46 mL/min >60 [facility] Work Phone: Comment on above: Non- GFR Calc Thyroid Stimulating Hormone (TSH) 6.34 uIU/mL 0.358-3.74 [facility] Work Phone: Platelets bldon 12-03-2021 Platelets (Bld) [#/Vol] 344 10*3/uL 150-450 [facility] Work Phone: Serum or plasma albumin be urement (mass/volume)on 12-03-2021 Albumin [Mass/Vol] 3.3 g/dL 3.2-5.0 [facility] Work Phone: Serum or plasma albumin/glob ulin mass ratioon 12-03-2021 Albumin/Globulin [Mass ratio] 0.8 {ratio} 0.9-2.4 [facility] Work Phone: Serum or plasma calcium be urement (mass/volume)on 12-03-2021 Calcium [Mass/Vol] 8.8 mg/dL 8.5-10.1 [facility] Work Phone: Serum or plasma cholesterol in HDL measurement (mass/volume)on 12-03-2021 Cholesterol in HDL [Mass/Vol] 78 mg/dL [facility] Work Phone: Comment on above: The drugs N-Acetylcy steine and Metamizole may falsely depress this assay. Reference Range HDL <40 mg/dL Low HDL Cholesterol HDL >or= 60 mg/dL High HDL Cholesterol Serum or plasma cholesterol in VLDL measurement (mass/volume)on 12-03-2021 Cholesterol in VLDL [Mass/Vol] 14 mg/dL 5-40 [facility] Work Phone: Serum or plasma creatinine m easurement (mass/volume)on 12-03-2021 Creatinine [Mass/Vol] 1.22 mg/dL 0.55-1.02 [facility] Work Phone: Comment on above: The validity of the calculated GFR & GFRAA in patients over 70 years has not been determined. Clinical correlation is essential. Serum or plasma low density lipoprotein (LDL) cholesterol measurement (mass/volume)on 12-03-2021 Cholesterol in LDL [Mass/Vol] 38 mg/dL 0-130 [facility] Work Phone: Serum or plasma urea nitroge n measurement (mass/volume)on 12-03-2021 Urea nitrogen [Mass/Vol] 22 mg/dL 7-18 [facility] Work Phone: Thin prep Papanicolaou smear with manual screeningon 12-03-2021 Thin prep Papanicolaou smear with manual screening 20 U/L 15-37 [facility] Work Phone: Thin prep Papanicolaou smear with manual screening 5 5-15 [facility] Work Phone: Blood Glucose , Office [phone])Ordered By: Samantha Goodman on 09-26-2021 Glucose Glucometer (BldC) [Moles/Vol] 84 1 Normal [facility] Work Phone: Blood Glucose , Office [phone])Ordered By: Afshin Sanchez on 06-08-2021 Glucose Glucometer (BldC) [Moles/Vol] 115 1 Normal [facility] Work Phone: HgA1C , Office [phone])Ordere d By: Afshin Sanchez on 06-08-2021 HbA1c (Bld) [Mass fraction] 5.6 % Normal 4.6 - 7.1 [facility] Work Phone: MICROALBUMINOrdered By: Syst em Research Associate Quality Control Qc on 06-08-2021 Albumin DL <= 20 mg/L (U) [Mass/Vol] 3.1 ug/mL Normal [facility] Medicine Work Phone: Comment on above: PATIENT NOT FASTINGP ERFORMED BY: [facility] Kntvbo1381 [facility] [id number] Albumin/Creatinine (U) [Mass ratio] 3 {mg/g_creat} Normal 0-29 [facility]; [facility] Work Phone: Comment on above: Normal: 0 - 29 Moder ately increased: 30 - 300 Severely increased: >300 PATIENT NOT FASTINGP ERFORMED BY: [facility] Owtmwx1340 [facility] [id number] Creatinine (U) [Mass/Vol] 121.1 mg/dL Normal [facility]; [facility] Work Phone: Comment on above: PATIENT NOT FASTINGP ERFORMED BY: [facility] Dkinyw1791 [facility] [id number] TSH (THYROID STIMULATING HOR HAYLIE) ([id number])Ordered By: Half Sole Fitter on 06-08-2021 TSH Qn 4.040 {uIU/mL} Normal 0.450-4.500 [facility] Internal Medicine; [facility] Work Phone: Comment on above: PATIENT NOT FASTINGP ERFORMED BY: [facility] Xtxyau8342 [facility] [id number] URINE JESÚS CULTURE-IDENTIFICA [place] ([id number])Ordered By: Half Sole Fitter on 01-30-2021 Bacteria identified Cx Nom (U) Final report Abnormal [facility]; [facility] Work Phone: Comment on above: PATIENT NOT FASTINGP ERFORMED BY: [facility] Iwouqr2854 [facility] [id number] Information: SRC:UC Bacteria identified Cx Nom (U) [...] A). (CLSI) PATIENT NOT FASTINGP ERFORMED BY: [facility] Opbcme8509 [facility] [id number] Information: SRC:CALE Urinalysis, Office ([id number])Or dered By: Afshin Sanchez on 01-30-2021 Bilirubin [...] Medicine Work Phone: URINE JESÚS CULTURE-IDENTIFICA [place] ([id number])Ordered By: Half Sole Fitter on 01-03-2021 Bacteria identified Cx Nom (U) Final report Abnormal [facility]; [facility] Work Phone: Comment on above: PERFORMED BY: charming charlie6370 [facility] RFCarolinas [facility] [id number] Information: SRC:UR Bacteria identified Cx Nom (U) Enterococcus faecalis Abnormal Comprehens saira Internal Medicine; [facility] Work Phone: Comment on above: 25,000-50,000 colony forming units per mLNote: this isolate is vancomycin-susceptible.This information is provided for epidemiologic purposes only:vancomycin is not among the antibiotics recommended for therapyof urinary tract infections caused by Enterococcus.For Enterococcus species, aminoglycosides (except for high-levelresistance screening), cephalosporins, clindamycin, andtrimethoprim-sulfamethoxazole are not effective clinically.(CLSI, [id number], 2016) PERFORMED BY: charming [email or web address] Guerr[facility] RFCarolinas [facility] [id number] Information: SRC:UR Other Antibiotic [Susc] MIHEAD Normal [facility]; [facility] Work Phone: Comment on above: S = Susceptible; I = Intermediate; R = Resistant P = Positive; N = Negative MICS are expressed in micrograms per mL Antibiotic RSLT#1 RSLT#2 RSLT#3 RSLT#4Ciprofloxacin RLevofloxacin RNitrofurantoin SPenicillin RTetracycline RVancomycin S PERFORMED BY: charming [email or web address] [facility] RFCarolinas [facility] [id number] Information: SRC:UR Urinalysis, Office ([id number])Or dered By: Marry Marroquin on 01-03-2021 Bilirubin [...] Medicine Work Phone: URINE JESÚS CULTURE-IDENTIFICA [place] (08064)Ordered By: Half Sole Fitter on 02-28-2020 Bacteria identified Cx Nom (U) Final report Normal [facility] Work Phone: Comment on above: PATIENT NOT FASTINGP ERFORMED BY: CB [facility] Yxvznu5416 [facility] [id number] Information: SRC:UC Bacteria identified Cx Nom (U) MUG Normal [facility] Work Phone: Comment on above: Mixed urogenital jese ra3,000 Colonies/mL PATIENT NOT FASTINGP ERFORMED BY: [facility] Wtrgar0008 [address] [place] [facility] RoadAt[facility] [id number] Information: SRC:CALE Urinalysis, Office (67431)Or dered By: Marry Marroquin on 02-28-2020 Bilirubin [...] Internal Medicine Work Phone: HgA1C , Office (05612)Ordere d By: Halley Bates on 10-14-2019 HbA1c (Bld) [Mass fraction] 5.6 % Normal 4.6 - 7.1 [facility] Work Phone: URINE JESÚS CULTURE-IDENTIFICA [place] (82255)Ordered By: Half Sole Fitter on 10-14-2019 Bacteria identified Cx Nom (U) Final report Normal [facility] Work Phone: Comment on above: PATIENT NOT FASTINGP ERFORMED BY: ChilltimeAt[facility] [id number] Information: SRC:UC Bacteria identified Cx Nom (U) MUG Normal [facility] Work Phone: Comment on above: Mixed urogenital jese ra10,000-25,000 colony forming units per mL PATIENT NOT FASTINGP ERFORMED BY: DailymotionCarolinas [facility] [id number] Information: SRC:UC Urinalysis, Office (32682)Or dered By: Citlali Gonzalez on 10-14-2019 Bilirubin [...] Medicine Work Phone: URINE JESÚS CULTURE-IDENTIFICA [place] (39592)Ordered By: Half Sole Fitter on 12-02-2018 Bacteria identified Cx Nom (U) [...] Proteusmirabilis. PATIENT NOT FASTINGP ERFORMED BY: WINDY [facility] Xxjczr6041 [facility] [id number] Information: SRC:UC Bacteria identified Cx Nom (U) Final report Abnormal [facility] Work Phone: Comment on above: PATIENT NOT FASTINGP ERFORMED BY: [facility] Zhehye2802 [facility] [place] [facility] [id number] Information: SRC:CALE Other Antibiotic susc MIHEAD Normal Com prehensive Internal Medicine Work Phone: Comment on above: S = Susceptible; I = Intermediate; R = Resistant P = Positive; N = Negative MICS are expressed in micrograms per mL Antibiotic RSLT#1 RSLT#2 RSLT#3 RSLT#4Amoxicillin/Clavulanic Acid SAmpicillin RCefepime SCeftriaxone SCefuroxime SCiprofloxacin SErtapenem SGentamicin SImipenem SLevofloxacin SMeropenem SNitrofurantoin SPiperacillin/Tazobactam STetracycline STobramycin STrimethoprim/Sulfa S PATIENT NOT FASTINGP ERFORMED BY: WINDY [facility] Huwpqi1753 [facility] [id number] Information: SRC:CALE Urinalysis, Office (81893)Or dered By: Kamla Valentino on 12-02-2018 Bilirubin [...] Normal Normal [facility] Work Phone: REIDZ-TUXACYYTWIP-DBNRH ([phone])Ordered By: Half Sole Fitter on 07-27-2018 AFP.tumor marker mass conc 2.8 ng/mL Normal 0.0-8.3 [facility] Work Phone: Comment on above: Cristofer ECLIA methodol ogy PATIENT WAS FASTINGP ERFORMED BY: [facility] [place]70 [facility]StackDe[facility] [id number] CBC, Platelets & Auto Diff ( [id number])Ordered By: Half Sole Fitter on 07-27-2018 Basophils #/vol (Bld) 0.0 {x10E3/uL} Normal 0.0-0.2 [facility] Work Phone: Comment on above: PATIENT WAS FASTINGP ERFORMED BY: DailymotionProspectWise [place] [id number] Basophils (Bld) [#/Vol] 0.0 10*3/uL Normal 0.0-0.2 [facility]; [facility] Work Phone: Comment on above: PATIENT WAS FASTINGP ERFORMED BY: [place] [id number] [facility] [id number] Basophils Auto #/vol (Bld) 0.0 {x10E3/uL} Normal 0.0-0.2 [facility] Work Phone: Basophils/100 WBC (Bld) 1 % Normal [facility] Work Phone: Comment on above: PATIENT WAS FASTINGP ERFORMED BY: [address] [id number] Basophils/100 WBC Auto (Bld) 1 % Normal [facility] Work Phone: Eosinophils #/vol (Bld) 0.2 {x10E3/uL} Normal 0.0-0.4 [facility] Work Phone: Comment on above: PATIENT WAS FASTINGP ERFORMED BY: [address] [id number] Eosinophils (Bld) [#/Vol] 0.2 10*3/uL Normal 0.0-0.4 [facility]; [facility] Work Phone: Comment on above: PATIENT WAS FASTINGP ERFORMED BY: [address] [id number] Eosinophils Auto #/vol (Bld) 0.2 {x10E3/uL} Normal 0.0-0.4 [facility] Work Phone: Eosinophils/100 WBC (Bld) 2 % Normal [facility] Work Phone: Comment on above: PATIENT WAS FASTINGP ERFORMED BY: [address] [id number] Eosinophils/100 WBC Auto (Bld) 2 % Normal [facility] Work Phone: Erythrocyte distribution width Auto Ratio (RBC) 14.1 % Normal 12.3-15.4 [facility] Work Phone: Erythrocyte distribution width Ratio (RBC) 14.1 % Normal 12.3-15.4 [facility] Work Phone: Comment on above: PATIENT WAS FASTINGP ERFORMED BY: [facility] Kqqzfj0748 [facility] [place] [id number] Hematocrit Auto Volume Fraction (Bld) 42.7 % Normal 34.0-46.6 [facility] Work Phone: Hematocrit Volume Fraction (Bld) 42.7 % Normal 34.0-46.6 [facility] Work Phone: Comment on above: PATIENT WAS FASTINGP ERFORMED BY: [facility]6370 [facility] [id number] Hemoglobin mass conc (Bld) 13.7 g/dL Normal 11.1-15.9 [facility] Work Phone: Comment on above: PATIENT WAS FASTINGP ERFORMED BY: [facility]6370 [facility] [id number] Immature granulocytes #/vol (Bld) 0.0 {x10E3/uL} Normal 0.0-0.1 [facility] Work Phone: Comment on above: PATIENT WAS FASTINGP ERFORMED BY: [facility] Fsawuc4770 [facility] [place] [facility] [place] [id number] Immature granulocytes (Bld) [#/Vol] 0.0 10*3/uL Normal 0.0-0.1 [facility]; [facility] Work Phone: Comment on above: PATIENT WAS FASTINGP ERFORMED BY: [facility] Yhegkx6782 [facility] [place] [id number] Immature granulocytes/100 WBC (Bld) 0 % Normal [facility] Work Phone: Comment on above: PATIENT WAS FASTINGP ERFORMED BY: [facility] Jrzbms7547 [facility] [place] [id number] Lymphocytes #/vol (Bld) 2.3 {x10E3/uL} Normal 0.7-3.1 [facility] Work Phone: Comment on above: PATIENT WAS FASTINGP ERFORMED BY: WINDY IainJeremías MenjivarFeamxo8868 [facility] [id number] Lymphocytes (Bld) [#/Vol] 2.3 10*3/uL Normal 0.7-3.1 [facility]; [facility] Work Phone: Comment on above: PATIENT WAS FASTINGP ERFORMED BY: WINDY [facility] Qbdszq[address] [id number] Lymphocytes Auto #/vol (Bld) 2.3 {x10E3/uL} Normal 0.7-3.1 [facility] Work Phone: Lymphocytes/100 WBC (Bld) 33 % Normal [facility] Work Phone: Comment on above: PATIENT WAS FASTINGP ERFORMED BY: WINDY Menjivar[address] [id number] Lymphocytes/100 WBC Auto (Bld) 33 % Normal [facility] Work Phone: MCH Auto Entitic mass (RBC) 27.9 pg Normal 26.6-33.0 [facility] Internal Medicine Work Phone: MCH Entitic mass (RBC) 27.9 pg Normal 26.6-33.0 [facility] Internal Medicine Work Phone: Comment on above: PATIENT WAS FASTINGP ERFORMED BY: WINDY Bernal Jwojsf7312 [facility] [id number] MCHC Auto mass conc (RBC) 32.1 g/dL Normal 31.5-35.7 [facility] Internal Medicine Work Phone: MCHC mass conc (RBC) 32.1 g/dL Normal 31.5-35.7 [facility] Internal Medicine Work Phone: Comment on above: PATIENT WAS FASTINGP ERFORMED BY: WINDY [facility]ÁngelPalisades Medical CenterYzysws1816 [facility] [id number] MCV Auto Entitic volume (RBC) 87 fL Normal 79-97 [facility] Work Phone: MCV Entitic volume (RBC) 87 fL Normal 79-97 [facility] Work Phone: Comment on above: PATIENT WAS FASTINGP ERFORMED BY: WINDY Gabe Fagan6370 [facility] [id number] Monocytes #/vol (Bld) 0.5 {x10E3/uL} Normal 0.1-0.9 [facility] Work Phone: Comment on above: PATIENT WAS FASTINGP ERFORMED BY: WINDY GeoffreyPalisades Medical CenterZchtjm2239 [facility] [id number] Monocytes (Bld) [#/Vol] 0.5 10*3/uL Normal 0.1-0.9 [facility]; [facility] Work Phone: Comment on above: PATIENT WAS FASTINGP ERFORMED BY: WINDY [facility]ainMer[facility] Hospital St. [facility] Cmwgmn7115 [facility] [id number] Monocytes Auto #/vol (Bld) 0.5 {x10E3/uL} Normal 0.1-0.9 [facility] Work Phone: Monocytes/100 WBC (Bld) 7 % Normal [facility] Work Phone: Comment on above: PATIENT WAS FASTINGP ERFORMED BY: WINDY Geoffreycorwin Ogbyyw4923 [facility] [id number] Monocytes/100 WBC Auto (Bld) 7 % Normal [facility] Work Phone: Neutrophils #/vol (Bld) 3.9 {x10E3/uL} Normal 1.4-7.0 [facility] Work Phone: Comment on above: PATIENT WAS FASTINGP ERFORMED BY: [facility]6370 [facility] [id number] Neutrophils (Bld) [#/Vol] 3.9 10*3/uL Normal 1.4-7.0 [facility]; [facility] Work Phone: Comment on above: PATIENT WAS FASTINGP ERFORMED BY: WINDY [facility] Afrhdk9400 [facility] [id number] Neutrophils Auto #/vol (Bld) 3.9 {x10E3/uL} Normal 1.4-7.0 [facility] Work Phone: Neutrophils/100 WBC (Bld) 57 % Normal [facility] Work Phone: Comment on above: PATIENT WAS FASTINGP ERFORMED BY: [facility] Xzplqd1524 [address] [place] [facility]First[facility] [place] [id number] Neutrophils/100 WBC Auto (Bld) 57 % Normal [facility] Work Phone: Platelets #/vol (Bld) 359 {x10E3/uL} Normal 150-379 [facility] Work Phone: Comment on above: PATIENT WAS FASTINGP ERFORMED BY: WINDY [facility] Drldzw3728 [facility] [id number] Platelets (Bld) [#/Vol] 359 10*3/uL Normal 150-379 [facility]; [facility] Work Phone: Comment on above: PATIENT WAS FASTINGP ERFORMED BY: [facility] Seivlt6362 [facility] [place] [facility] [id number] Platelets Auto #/vol (Bld) 359 {x10E3/uL} Normal 150-379 [facility] Work Phone: RBC #/vol (Bld) 4.91 {x10E6/uL} Normal 3.77-5.28 [facility] Internal Medicine Work Phone: Comment on above: PATIENT WAS FASTINGP ERFORMED BY: [facility] Lirhjo2304 [facility] [id number] RBC (Bld) [#/Vol] 4.91 10*6/uL Normal 3.77-5.28 [facility]; [facility] Work Phone: Comment on above: PATIENT WAS FASTINGP ERFORMED BY: [facility] Kawwpt3958 [facility] [id number] RBC Auto #/vol (Bld) 4.91 {x10E6/uL} Normal 3.77-5.28 [facility] Work Phone: WBC #/vol (Bld) 6.9 {x10E3/uL} Normal 3.4-10.8 Compr ehensive Internal Medicine Work Phone: Comment on above: PATIENT WAS FASTINGP ERFORMED BY: WINDY [facility] Tpeuhk6041 [address] Roadblin [place] [id number] WBC (Bld) [#/Vol] 6.9 10*3/uL Normal 3.4-10.8 Compre [facility] hospitalive [facility]; [facility] Work Phone: Comment on above: PATIENT WAS FASTINGP ERFORMED BY: WINDY [facility] Ltngke9954 [address] RoadDublin [place] [id number] WBC Auto #/vol (Bld) 6.9 {x10E3/uL} Normal 3.4-10.8 [facility] Work Phone: HGB A1C ([id number])Ordered By: S ystem Research Associate Quality Control Qc on 07-27-2018 Hemoglobin A1c/Hemoglobin.total mass fraction (Bld) 5.7 % Abnormal 4.8-5.6 Comprehensiv e Internal Medicine Work Phone: Comment on above: . Prediabetes: 5.7 - 6.4 Diabetes: >6.4 Glycemic control for adults with diabetes: <7.0 PATIENT WAS FASTINGP ERFORMED BY: WINDY [facility] Anxwqx2304 [facility] [place] [id number] LIPID PANEL ([id number])Ordered B y: Half Sole Fitter on 07-27-2018 Cholesterol in HDL mass conc 63 mg/dL Normal [facility] Work Phone: Comment on above: PATIENT WAS FASTINGP ERFORMED BY: WINDY [facility] Vhipzg8728 [address] [facility] GladwinDublin [place] [id number] Cholesterol in LDL mass conc 52 mg/dL Normal 0-99 [facility] Work Phone: Comment on above: PATIENT WAS FASTINGP ERFORMED BY: WINDY [facility] Akhbif9787 [address] RoadDublin [place] [id number] Cholesterol in LDL/Cholesterol in HDL mass ratio 0.8 {ratio} Normal 0.0-3.2 [facility] Work Phone: Comment on above: LDL/HDL Ratio Men Wo men 1/2 Avg.Risk 1.0 1.5 Avg.Risk 3.6 3.2 2X Avg.Risk 6.2 5.0 3X Avg.Risk 8.0 6.1 PATIENT WAS FASTINGP ERFORMED BY: WINDY LabJeremías Gmgblc0941 [address] RoadDublin [place] [id number] Cholesterol in VLDL mass conc 20 mg/dL Normal 5-40 [facility] Work Phone: Comment on above: PATIENT WAS FASTINGP ERFORMED BY: WINDY LabJeremías MenjivarPghvsf0332 [address] RoadDublin [place] [id number] Cholesterol mass conc 135 mg/dL Normal 100-199 Com prehensive Internal Medicine Work Phone: Comment on above: PATIENT WAS FASTINGP ERFORMED BY: WINDY LabJeremías MenjivarLgtmbj9643 [address] RoadDublin [place] [id number] Triglyceride mass conc 98 mg/dL Normal 0-[address] hospitalehens[facility] Internal Medicine Work Phone: Comment on above: PATIENT WAS FASTINGP ERFORMED BY: WINDY Bernal Gdcgcw7889 [address] RoadDublin [place] [id number] Metabolic Panel, Comprehensi ve ([id number])Ordered By: Half Sole Fitter on 07-27-2018 Albumin mass conc 4.4 g/dL Normal 3.5-4.8 Compreh ensive Internal Medicine Work Phone: Comment on above: PATIENT WAS FASTINGP ERFORMED BY: WINDY [facility] Dlnyao2314 [address] RoadDublin [place] [id number] Albumin/Globulin mass ratio 1.6 {ratio} Normal 1.2-2.2 [facility] Work Phone: Comment on above: PATIENT WAS FASTINGP ERFORMED BY: WINDY [facility] Bmcbtl8273 [address] RoadDublin [place] [id number] ALP [Catalytic activity/Vol] 33 U/L Abnormal 39-117 [facility]; [facility] Work Phone: Comment on above: PATIENT WAS FASTINGP ERFORMED BY: WINDY [facility] Ttxrvi0836 [address] RoadDublin [place] [id number] ALP enzyme act/vol 33 [iU]/L Abnormal 39-117 [facility] Internal Medicine Work Phone: Comment on above: PATIENT WAS FASTINGP ERFORMED BY: WINDY [facility] Xjyjkz2323 [address] RoadDublin [place] [id number] ALT [Catalytic activity/Vol] 20 U/L Normal 0-32 [facility]; [facility] Internal Medicine Work Phone: Comment on above: PATIENT WAS FASTINGP ERFORMED BY: CB [facility] Jpdpwj9228 [address] RoadDublin [place] [id number] ALT enzyme act/vol 20 [iU]/L Normal 0-32 [facility] Internal Medicine Work Phone: Comment on above: PATIENT WAS FASTINGP ERFORMED BY: WINDY [facility] Zsjest8404 [address] RoadDublin [place] [id number] AST [Catalytic activity/Vol] 20 U/L Normal 0-40 [facility] Internal Medicine; [facility] Internal Medicine Work Phone: Comment on above: PATIENT WAS FASTINGP ERFORMED BY: WINDY [facility] Vnpzvv9943 [address] RoadDublin [place] [id number] AST enzyme act/vol 20 [iU]/L Normal 0-40 [facility] Internal Medicine Work Phone: Comment on above: PATIENT WAS FASTINGP ERFORMED BY: [facility] Iulcor1215 [address] RoadDublin [place] [id number] Bilirubin mass conc 0.5 mg/dL Normal 0.0-1.2 [facility] Work Phone: Comment on above: PATIENT WAS FASTINGP ERFORMED BY: CB [facility] Oeyffy3231 [address] RoadDublin [place] [id number] Calcium mass conc 9.5 mg/dL Normal 8.7-10.3 [facility] Internal Medicine Work Phone: Comment on above: PATIENT WAS FASTINGP ERFORMED BY: CB [facility] Tkqwlm2827 [address] RoadDublin [place] [id number] Chloride molar conc 104 mmol/L Normal 96-106 [facility] Work Phone: Comment on above: PATIENT WAS FASTINGP ERFORMED BY: WINDY [facility] Nzmvvh7498 [address] [facility] [place] [id number] CO2 molar conc 22 mmol/L Normal 20-29 Comprehens saira Internal Medicine Work Phone: Comment on above: PATIENT WAS FASTINGP ERFORMED BY: WINDY [facility] Bfjyck6042 [address] [facility] [id number] Creatinine mass conc 1.13 mg/dL Abnormal 0.57-1.00 Comp rehensive Internal Medicine Work Phone: Comment on above: PATIENT WAS FASTINGP ERFORMED BY: WINDY [facility] Cuvrmp3490 [address] [facility] [id number] GFR/1.73 sq M predicted among blacks CKD-EPI vol rate/area (S/P/Bld) 57 mL/min/1.73 Abnormal [facility] Work Phone: Comment on above: PATIENT WAS FASTINGP ERFORMED BY: WINDY LabCocorwin MenjivarHgcbbn3857 [address] [facility] [id number] GFR/1.73 sq M predicted among non-blacks CKD-EPI vol rate/area (S/P/Bld) 49 mL/min/1.73 Abnormal Comprehensiv e Internal Medicine Work Phone: Comment on above: PATIENT WAS FASTINGP ERFORMED BY: WINDY LabCocorwin MenjivarWrvsto0150 [facility] [id number] Globulin Calculated mass conc (S) 2.8 g/dL Normal 1.5-4.5 [facility] Work Phone: Globulin mass conc (S) 2.8 g/dL Normal 1.5-4.5 [facility]erensive Internal Medicine Work Phone: Comment on above: PATIENT WAS FASTINGP ERFORMED BY: WINDY [facility] Bqsqpi7031 [address] [facility] [id number] Glucose mass conc 84 mg/dL Normal 65-99 Compreh ensive Internal Medicine Work Phone: Comment on above: PATIENT WAS FASTINGP ERFORMED BY: WINDY [facility] Vfnsqv8667 [facility] [id number] Potassium molar conc 4.8 mmol/L Normal 3.5-5.2 Comp rehensive Internal Medicine Work Phone: Comment on above: PATIENT WAS FASTINGP ERFORMED BY: [facility]6370 [facility] [id number] Protein mass conc 7.2 g/dL Normal 6.0-8.5 Compreh ensive Internal Medicine Work Phone: Comment on above: PATIENT WAS FASTINGP ERFORMED BY: [place] 1225770 [facility] [id number] Sodium molar conc 142 mmol/L Normal 134-144 Compreh ensive Internal Medicine Work Phone: Comment on above: PATIENT WAS FASTINGP ERFORMED BY: [facility]6370 [facility] [id number] Urea nitrogen mass conc 18 mg/dL Normal 8- [facility] Work Phone: Comment on above: PATIENT WAS FASTINGP ERFORMED BY: [place] 1225770 [facility] [id number] Urea nitrogen/Creatinine mass ratio 16 mg/mg Normal 12- [facility] Work Phone: Comment on above: PATIENT WAS FASTINGP ERFORMED BY: [place] 1225770 [facility] [id number] TSH (THYROID STIMULATING HOR HAYLIE) ([id number])Ordered By: Half Sole Fitter on 07-27-2018 Thyrotropin Qn 3.890 {uIU/mL} Normal 0.450-4.500 Compr ensive Internal Medicine Work Phone: Comment on above: PATIENT WAS FASTINGP ERFORMED BY: [facility]6370 [facility] [id number] URINE JESÚS CULTURE-IDENTIFICA [place] ([id number])Ordered By: Half Sole Fitter on 11-04-2017 Bacteria identified Cx Nom (U) Final report Abnormal [facility] Work Phone: Comment on above: copy to Dr. coleman; A courtesy copy of this report has been sent [phone].PATIENT NOT FASTINGPERFORMED BY: [employer] Gtdife4435 [address] FlutterAtrium Health [facility] [id number] Information: COPY TO [place] SRC: Bacteria identified Cx Nom (U) Klebsiella pneumoniae Abnormal Comprehens saira Internal Medicine Work Phone: Comment on above: Greater than 100,000 colony forming units per mL copy to Dr. coleman; A courtesy copy of this report has been sent [phone].PATIENT NOT FASTINGPERFORMED BY: [employer] Bwtlyv4677 [address] FlutterAt[facility] [id number] Information: COPY TO [place] SRC: Other Antibiotic susc MIHEAD Normal [facility] prehensive Internal Medicine Work Phone: Comment [...] copy of this report has been sent [phone].PATIENT NOT FASTINGPERFORMED BY: [employer] Zqddan2716 [facility] [id number] Information: COPY TO [place] SRC: URINE JESÚS CULTURE-JOHNY COL C OUNT ([id number])Ordered By: Half Sole Fitter on 10-16-2017 Bacteria identified Cx Nom (U) Final report Abnormal [facility] Work Phone: Comment on above: PATIENT NOT FASTINGP ERFORMED BY: [employer] Ribhgp6002 [facility] [id number] Information: SRC:UC Bacteria identified Cx Nom (U) Escherichia coli Abnormal [facility] Work Phone: Comment on above: 10,000-25,000 colony forming units per mL PATIENT NOT FASTINGP ERFORMED BY: [facility] Hxsxnm0416 [address] RoadFirsthealth [facility] [place] [id number] Information: SRC: Other Antibiotic susc MIHEAD Normal [facility] prehensive Internal Medicine Work Phone: Comment on above: S = Susceptible; I = Intermediate; R = Resistant P = Positive; N = Negative MICS are expressed in micrograms per mL Antibiotic RSLT#1 RSLT#2 RSLT#3 RSLT#4Amoxicillin/Clavulanic Acid SAmpicillin SCefepime SCeftriaxone SCefuroxime SCephalothin ICiprofloxacin SErtapenem SGentamicin SImipenem SLevofloxacin SNitrofurantoin SPiperacillin STetracycline STobramycin STrimethoprim/Sulfa S PATIENT NOT FASTINGP ERFORMED BY: [employer] Ibcavt3497 De La Rosa RoadAtrium Health [facility] [id number] Information: SRC:CALE Urinalysis, Office ([id number])Or dered By: Agnieszka Rae on 10-16-2017 Bilirubin [...] Medicine Work Phone: URINE JESÚS CULTURE-IDENTIFICA [place] ([id number])Ordered By: Half Sole Fitter on 07-18-2017 Bacteria identified Cx Nom (U) Final report Abnormal [facility] Work Phone: Comment on above: PATIENT NOT FASTINGP ERFORMED BY: WINDY Fagan6370 vzaarAtrium Health [facility] [id number] Information: SRC:UC Bacteria identified Cx Nom (U) PROTMP Abnormal [...] S PATIENT NOT FASTINGP ERFORMED BY: WINDY [employer] - Golden LinesJeremías Fagan6370 [facility] [id number] Information: SRC:CALE Urinalysis, Office ([id number])Or dered By: Agnieszka Rae on 07-18-2017 Bilirubin [...] Medicine Work Phone: Blood Glucose , Office ([phone])Ordered By: Citlali Gonzalez on 12-16-2016 Glucose Glucometer molar conc (BldC) 108 1 Normal [facility] Work Phone: HgA1C , Office ([phone])Ordere d By: Citlali Gonzalez on 12-16-2016 Hemoglobin A1c/Hemoglobin.total mass fraction (Bld) 5.7 % Normal 4.6 - 7.1 Comprehensiv e Internal Medicine Work Phone: Comment on above: 5.7 Urinalysis, Office ([id number])Or dered By: Agnieszka Rae on 12-16-2016 Bilirubin [...] Medicine Work Phone: Urine Culture,ComprehensiveO rdered By: Half Sole Fitter on 12-16-2016 Bacteria identified Cx Nom (U) Final report Abnormal [facility] Work Phone: Comment on above: PATIENT NOT FASTINGP ERFORMED BY: WINDY LabJeremías Izynnd4367 De [address] Rosa RoadPouring Poundsin [place] [id number] Information: SRC:CALE Bacteria identified Cx Nom (U) Citrobacter freundii Abnormal Comprehensi ve Internal Medicine Work Phone: Comment on above: 25,000-50,000 colony forming units per mL PATIENT NOT FASTINGP ERFORMED BY: WINDY LabCocorwin Wmefgm3670 [address] FlutterFirsthealth [facility] - [place] [id number] Information: SRC:CALE Other Antibiotic [facility]McL[facility] prehensive Internal Medicine Work Phone: Comment on above: S = Susceptible; I = Intermediate; R = Resistant P = Positive; N = Negative MICS are expressed in micrograms per mL Antibiotic RSLT#1 RSLT#2 RSLT#3 RSLT#4Amoxicillin/Clavulanic Acid RCefazolin RCefepime SCeftriaxone SCefuroxime RCephalothin RCiprofloxacin SErtapenem SGentamicin SImipenem SLevofloxacin SNitrofurantoin SPiperacillin STetracycline STobramycin STrimethoprim/Sulfa S PATIENT NOT FASTINGP ERFORMED BY: WINDY LabJeremías Xgxauq3062 De La Rosa RoadDublin [place] [id number] Information: SRC:CALE URINE JESÚS CULTURE-JOHNY COL C OUNT ([id number])Ordered By: Half Sole Fitter on 09-23-2016 Bacteria identified Cx Nom (U) Final report Abnormal [facility] Work Phone: Comment on above: PATIENT NOT FASTINGP ERFORMED BY: WINDY [facility] Rsasqv5746 [address] [facility] [id number] Information: SRC: Bacteria identified Cx Nom (U) Escherichia coli Abnormal [facility] Work Phone: Comment on above: Greater than 100,000 colony forming units per mL PATIENT NOT FASTINGP ERFORMED BY: [facility] Itudfc2046 [address] [facility] [id number] Information: SRC: Other Antibiotic susc MIHEAD Normal Com prehensive Internal Medicine Work Phone: Comment on above: S = Susceptible; I = Intermediate; R = Resistant P = Positive; N = Negative MICS are expressed in micrograms per mL Antibiotic RSLT#1 RSLT#2 RSLT#3 RSLT#4Amoxicillin/Clavulanic Acid SAmpicillin SCefepime SCeftriaxone SCefuroxime SCephalothin SCiprofloxacin SErtapenem SGentamicin SImipenem SLevofloxacin SNitrofurantoin SPiperacillin STetracycline STobramycin STrimethoprim/Sulfa S PATIENT NOT FASTINGP ERFORMED BY: [facility] Aippbu1465 [facility] [id number] Information: SRC: Urinalysis, Office ([id number])Or dered By: Lena Sandra on 09-23-2016 Bilirubin [...] Medicine Work Phone: CBC W/Diff, AutomatedOrdered By: Half Sole Fitter on 08-07-2016 Absolute Neut 3.1 {X10_3/uL} Normal 2.0-7.7 Compreh ensive Internal Medicine Work Phone: Comment on above: [facility] [address] [place], [address] Basophils/100 WBC (Bld) 1.1 % Abnormal 0-1 [facility] Work Phone: Comment on above: [facility] [address] [place], [address] Basophils/100 WBC Auto (Bld) 1.1 % Abnormal 0-1 [facility] Work Phone: Eosinophils/100 WBC (Bld) 2.6 % Normal 0-5 [facility] Work Phone: Comment on above: [facility] [address] [place], [address] Eosinophils/100 WBC Auto (Bld) 2.6 % Normal 0-5 [facility] Work Phone: Erythrocyte distribution width Auto Ratio (RBC) 13.7 % Normal 11.6-14.6 [facility] Work Phone: Erythrocyte distribution width Ratio (RBC) 13.7 % Normal 11.6-14.6 [facility] Work Phone: Comment on above: [facility] [address] [place], [address] Hematocrit Auto Volume Fraction (Bld) 44.2 % Normal 37-47 [facility] Work Phone: Hematocrit Volume Fraction (Bld) 44.2 % Normal 37-47 [facility] Work Phone: Comment on above: [facility] [address] [place], [address] Hemoglobin mass conc (Bld) 14.3 g/dL Normal 12.0-15.0 [facility] Work Phone: Comment on above: [facility] [address] [place], [address] IM GRAN % 0.200 % Normal 0.0-0.9 [facility] Work Phone: Comment on above: IG% - Immature Granu locytes (promyelocytes, myelocytes andmetamyelocytes) > 1% indicates that a LEFT SHIFT is Present. [facility] [address] [place], [address] Lymphocytes #/vol (Bld) 2.31 {X10_3/ul} Normal 0.83-4.51 [facility] Work Phone: Comment on above: [facility] [address] [place], [address] Lymphocytes/100 WBC (Bld) 37.9 % Normal 19-41 [facility] Work Phone: Comment on above: [facility] [address] [place], [address] Lymphocytes/100 WBC Auto (Bld) 37.9 % Normal 19-41 [facility] Work Phone: MCH Auto Entitic mass (RBC) 28.4 pg Normal 27.0-32.0 [facility] Work Phone: MCH Entitic mass (RBC) 28.4 pg Normal 27.0-32.[address] [facility] Work Phone: Comment on above: [facility] [address] [place], [address] MCHC Auto mass conc (RBC) 32.4 {g/gl} Normal 32-36 [facility] Work Phone: MCHC mass conc (RBC) 32.4 {g/gl} Normal 32-36 [facility] prehensive Internal Medicine Work Phone: Comment on above: [facility] [address] [place], [address] MCV Auto Entitic volume (RBC) 87.7 fL Normal 81-99 [facility] Work Phone: MCV Entitic volume (RBC) 87.7 fL Normal 81-99 [facility] Work Phone: Comment on above: [facility] [address] [place], [address] Monocytes/100 WBC (Bld) 7.0 % Normal 0-10 [facility] Work Phone: Comment on above: [facility] [address] [place], [address] Monocytes/100 WBC Auto (Bld) 7.0 % Normal 0-10 [facility] Work Phone: Neutrophils/100 WBC (Bld) 51.2 % Normal 47-70 [facility] Work Phone: Comment on above: [facility] [address] [place], [address] Neutrophils/100 WBC Auto (Bld) 51.2 % Normal 47-70 [facility] Work Phone: Platelet mean volume Auto Entitic volume (Bld) 9.5 fL Normal 6.2-12.0 [facility] Work Phone: Platelet mean volume Entitic volume (Bld) 9.5 fL Normal 6.2-12.0 Comprehensi ve Internal Medicine Work Phone: Comment on above: [facility] [address] [place], [address] Platelets #/vol (Bld) 348 10*3/uL Normal 150-[address] [facility] Work Phone: Comment on above: [facility] [address] [place], [address] Platelets Auto #/vol (Bld) 348 10*3/uL Normal 150-450 [facility] Work Phone: RBC #/vol (Bld) 5.04 {M/mm3} Normal 4.2-5.4 Compreh ensive Internal Medicine Work Phone: Comment on above: [facility] [address] [place], [address] RBC Auto #/vol (Bld) 5.04 {M/mm3} Normal 4.2-5.[address] [facility] Work Phone: RDW SD 43.7 fL Normal 35.1-43.9 [facility] Work Phone: Comment on above: [facility] [address] [place], [address] WBC #/vol (Bld) 6.1 10*3/uL Normal 4.4-11.0 Comprehe nsive Internal Medicine Work Phone: Comment on above: [facility] [address] [place], [address] WBC Auto #/vol (Bld) 6.1 10*3/uL Normal 4.4-11.0 [facility] prehensive Internal Medicine Work Phone: CBC W/Diff, Automated 0.200 % Normal 0.0-0.9 [facility] prehensive Internal Medicine Work Phone: Comment on above: IG% - Immature Granu locytes (promyelocytes, myelocytes andmetamyelocytes) > 1% indicates that a LEFT SHIFT is Present. CBC W/Diff, Automated 43.7 fL Normal 35.1-43.9 [facility] prehensive Internal Medicine Work Phone: CBC W/Diff, Automated 2.31 {X10_3/ul} Normal 0.83-4.51 [facility] Internal Medicine Work Phone: CBC W/Diff, Automated 3.1 {X10_3/uL} Normal 2.0-7.7 [facility] Work Phone: Comprehensive Metabolic Prof ilOrdered By: Half Sole Fitter on 08-07-2016 Comprehensive metabolic 2000 panel 7.6 g/dL Normal 6.4-8.2 Comprehensi ve Internal Medicine Work Phone: Comment on above: Has Patient had X-ra ys with Contrast this admission? [facility] [address] [place], [address] Comprehensive metabolic 2000 panel 14.1 {RATIO} Normal 10-20 Comprehensi ve Internal Medicine Work Phone: Comment on above: Has Patient had X-ra ys with Contrast this admission? [facility] [address] [place], [address] Comprehensive metabolic 2000 panel 0.60 mg/dL Normal 0.20-1.00 Comprehensi ve Internal Medicine Work Phone: Comment on above: Has Patient had X-ra ys with Contrast this admission? [facility] [address] [place], [place], [id number] Comprehensive metabolic 2000 panel 138 mmol/L Normal 136-145 Comprehensi ve Internal Medicine Work Phone: Comment on above: Has Patient had X-ra ys with Contrast this admission? [facility] [address] [place], [address] Comprehensive metabolic 2000 panel 50 mL/min Abnormal Comprehensi ve Internal Medicine Work Phone: Comment on above: GFR Calc Has Patient had X-ra ys with Contrast this admission? [facility] [address] [place], [place], [address] Comprehensive metabolic 2000 panel 8.7 mg/dL Normal 8.5-10.1 Comprehensi ve Internal Medicine Work Phone: Comment on above: Has Patient had X-ra ys with Contrast this admission? [facility] [address] [place], [address] Comprehensive metabolic 2000 panel 4.0 mmol/L Normal 3.5-5.1 Comprehensi ve Internal Medicine Work Phone: Comment on above: Has Patient had X-ra ys with Contrast this admission? [facility] [address] [place], [address] Comprehensive metabolic 2000 panel 32 U/L Normal 12-78 Comprehensi ve Internal Medicine Work Phone: Comment on above: Has Patient had X-ra ys with Contrast this admission? [facility] [address] [place], [address] Comprehensive metabolic 2000 panel 27.0 mmol/L Normal 21.0-32.0 Comprehensi ve Internal Medicine Work Phone: Comment on above: Has Patient had X-ra ys with Contrast this admission? [facility] [address] [place], [place], [address] Comprehensive metabolic 2000 panel 7 1 Normal 5-15 Comprehensi ve Internal Medicine Work Phone: Comment on above: Has Patient had X-ra ys with Contrast this admission? [facility] [address] [place], [place], [address] Comprehensive metabolic 2000 panel 41 mL/min Abnormal Comprehensi ve Internal Medicine Work Phone: Comment on above: Non- GFR Calc Has Patient had X-ra ys with Contrast this admission? [facility] [address] [place], [place], [address] Comprehensive metabolic 2000 panel 3.7 g/dL Abnormal 2.3-3.5 Comprehensi ve Internal Medicine Work Phone: Comment on above: Has Patient had X-ra ys with Contrast this admission? [facility] [address] [place], [place], [address] Comprehensive metabolic 2000 panel 1.1 {RATIO} Normal 0.9-2.4 Comprehensi ve Internal Medicine Work Phone: Comment on above: Has Patient had X-ra ys with Contrast this admission? [facility] [address] [place], [place], [address] Comprehensive metabolic 2000 panel 22 U/L Normal 15-37 Comprehensi ve Internal Medicine Work Phone: Comment on above: Has Patient had X-ra ys with Contrast this admission? [facility] [address] [place], [place], [address] Comprehensive metabolic 2000 panel 1.35 mg/dL Abnormal 0.55-1.20 Comprehensi ve Internal Medicine Work Phone: Comment on above: The validity of the calculated GFR AND GFRAA in patients over70 years has not been determined. Clinical correlation isessential. Has Patient had X-ra ys with Contrast this admission? [facility] [address] [place], [address] Comprehensive metabolic 2000 panel 19 mg/dL Abnormal 7-18 Comprehensi ve Internal Medicine Work Phone: Comment on above: Has Patient had X-ra ys with Contrast this admission? [facility] [address] [place], [place], [address] Comprehensive metabolic 2000 panel 36 U/L Abnormal 50-136 Comprehensi ve Internal Medicine Work Phone: Comment on above: Has Patient had X-ra ys with Contrast this admission? [facility] [address] [place], [place], [address] Comprehensive metabolic 2000 panel 3.9 g/dL Normal 3.4-5.0 Comprehensi ve Internal Medicine Work Phone: Comment on above: Has Patient had X-ra ys with Contrast this admission? [facility] [address] [place], [place], [address] Comprehensive metabolic 2000 panel 91 mg/dL Normal 70-110 Comprehensi ve Internal Medicine Work Phone: Comment on above: Has Patient had X-ra ys with Contrast this admission? [facility] [address] [place], [place], [address] Comprehensive metabolic 2000 panel 104 mmol/L Normal 98-107 Comprehensi ve Internal Medicine Work Phone: Comment on above: Has Patient had X-ra ys with Contrast this admission? [facility] [address] [place], [place], [address] Free [id number] By: Marcelino willis on 08-07-2016 T3 free mass conc 2.4 pg/mL Normal 2.18-3.98 Compreh ensive Internal Medicine Work Phone: Comment on above: Has Patient had X-ra ys with Contrast this admission? [facility] [address] [place], [place], [address] Lipid ProfileOrdered By: Johan tem Research Associate Quality Control Qc on 08-07-2016 Cholesterol in HDL mass conc 70 mg/dL Normal [facility] Work Phone: Comment on above: The drugs N-Acetylcy steine and Metamizole may falsely deressthis assay. Reference Range HDL <40 mg/dL Low HDL Cholesterol HDL >or= 60 mg/dL High HDL Cholesterol Has Patient had X-ra ys with Contrast this admission? [facility] [address] [place], [address] Cholesterol in LDL mass conc 55 mg/dL Normal 0-130 [facility] Work Phone: Comment on above: Has Patient had X-ra ys with Contrast this admission? [facility] [address] [place], [address] Cholesterol in VLDL mass conc 21 mg/dL Normal 5-40 [facility] Work Phone: Comment on above: Has Patient had X-ra ys with Contrast this admission? [facility] [address] [place], [place], [phone] Cholesterol mass conc 146 mg/dL Normal Com prehensive Internal Medicine Work Phone: Comment on above: <200 mg/dL Desirable 200-240 mg/dL Borderline >240 mg/dL High Risk Has Patient had X-ra ys with Contrast this admission? [facility] [address] [place], [place], [phone] Triglyceride mass conc 105 mg/dL Normal [facility] Work Phone: Comment on above: The drugs N-Acetylcy steine and Metamizole may falsely deressthis assay.Serum Triglycerides Reference Interval Normal <150 mg/dL Borderline high 150 - 199 mg/dL High 200 - 499 mg/dL Very High > or = 500 mg/dL Has Patient had X-ra ys with Contrast this admission? [facility] [address] [place], [place], [phone] Lipid Profile 21 mg/dL Normal 5-40 Comprehensi ve Internal Medicine Work Phone: MicroalbOrdered By: Marcelino fox on 08-07-2016 Creatinine mass conc 7.4 {mg/g_CRE} Normal [facility] Work Phone: Comment on above: [facility] [address] [place], [phone] Creatinine mass conc 122.00 mg/dL Normal Co mprehensive Internal Medicine Work Phone: Comment on above: [facility] [address] [place], [address] Microalb 122.00 mg/dL Normal Comprehensiv e Internal Medicine Work Phone: Microalb 9.0 mg/L Normal Comprehensive [facility] Work Phone: Comment on above: [facility] [address] [place], [phone] T4 Free DirectOrdered By: LumaCyte stem Research Associate Quality Control Qc on 08-07-2016 T4 free mass conc 0.90 ng/dL Normal 0.76-1.46 Compreh ensive Internal Medicine Work Phone: Comment on above: Has Patient had X-ra ys with Contrast this admission? [facility] [address] [place], [place], [address] Thyroid Stim Hormone (TSH)Or dered By: Half Sole Fitter on 08-07-2016 Thyrotropin Qn 5.63 {uIU/mL} Abnormal 0.358-3.74 Compreh ensive Internal Medicine Work Phone: Comment on above: Has Patient had X-ra ys with Contrast this admission? [facility] [address] [place], [place], [address] Vitamin D,25 HydroxyOrdered By: Half Sole Fitter on 08-07-2016 Vitamin D,25 Hydroxy 31.8 ng/mL Normal Comp rehensive Internal Medicine Work Phone: Comment on above: Vitamin D 25(OH) Sta tus Range Deficiency <20 ng/mL (50nmol/L) Insuffciency 20 - 30 ng/mL (50 - 75 nmol/L) Sufficiency 30 - 100 ng/mL (75 - 250 nmol/L) Toxicity >100 ng/mL (>250 nmol/L) [facility] [address] [place], [address] HgA1C , Office (71095)Ordere d By: Agnieszka Rae on 08-06-2016 Hemoglobin A1c/Hemoglobin.total mass fraction (Bld) 5.9 % Normal 4.6 - 7.1 Comprehensiv e Internal Medicine Work Phone: Urinalysis, Office ([phone])Or dered By: Mikhail Gutierrez on 08-06-2016 Bilirubin [...] [facility] Work Phone: Urinalysis, Office ([phone])on 08-06-2016 Bilirubin Ql (U) Negative Normal Comprehe [...] Phone: URINE JESÚS CULTURE-JOHNY COL C OUNT (25231)Ordered By: Half Sole Fitter on 05-02-2016 Bacteria identified Cx Nom (U) MUG Normal [facility] Work Phone: Comment on above: Mixed urogenital jese ra50,000-100,000 colony forming units per mL PATIENT NOT FASTINGP ERFORMED BY: DailymotionCarolinas [facility] [id number] Information: SRC:UR [id number] Bacteria identified Cx Nom (U) Final report Normal [facility] Work Phone: Comment on above: PATIENT NOT FASTINGP ERFORMED BY: LDK SolarDeaconess [facility] System [id number] Information: SRC:UR [id number] Urinalysis, Office ([id number])Or dered By: Citlali Gonzalez on 05-02-2016 Bilirubin [...] Phone: Basic Metabolic Profile (BMP )Ordered By: Half Sole Fitter on 04-23-2016 Basic metabolic 2000 panel 1.53 mg/dL Abnormal 0.55-1.20 [facility] Work Phone: Comment on above: The validity of the calculated GFR AND GFRAA in patients over70 years has not been determined. Clinical correlation isessential. Serial Specimen #1, #2 or #3? 1'TROP' Serial specimen #1, #2, #3, or #4: 1[facility] [address] [place], [place], [address] Basic metabolic 2000 panel 43 mL/min Abnormal Comprehensive [facility] Medicine Work Phone: Comment on above: GFR Calc Serial Specimen #1, #2 or #3? 1'TROP' Serial specimen #1, #2, #3, or #4: [address] [place] [address] [place], [address] Basic metabolic 2000 panel 137 mmol/L Normal 136-145 [facility] Work Phone: Comment on above: Serial Specimen #1, #2 or #3? 1'TROP' Serial specimen #1, #2, #3, or #4: [address] [place] [address] [place], [address] Basic metabolic 2000 panel 10.5 {RATIO} Normal 10-20 [facility] Work Phone: Comment on above: Serial Specimen #1, #2 or #3? 1'TROP' Serial specimen #1, #2, #3, or #4: [address] [place] [address] [place], [address] Basic metabolic 2000 panel 8.6 mg/dL Normal 8.5-10.1 [facility] Work Phone: Comment on above: Serial Specimen #1, #2 or #3? 1'TROP' Serial specimen #1, #2, #3, or #4: [address] [place] [address] [place], [address] Basic metabolic 2000 panel 3.9 mmol/L Normal 3.5-5.1 [facility] Work Phone: Comment on above: Serial Specimen #1, #2 or #3? 1'TROP' Serial specimen #1, #2, #3, or #4: [address] [place] [address] [place], [address] Basic metabolic 2000 panel 16 mg/dL Normal 7-18 [facility] Work Phone: Comment on above: Serial Specimen #1, #2 or #3? 1'TROP' Serial specimen #1, #2, #3, or #4: [address] [place] [address] [address] [address] [place], [place], [id number] Basic metabolic 2000 panel 103 mmol/L Normal 98-107 [facility] Work Phone: Comment on above: Serial Specimen #1, #2 or #3? 1'TROP' Serial specimen #1, #2, #3, or #4: [address] [place] [address] [place], [address] Basic metabolic 2000 panel 9 1 Normal 5-15 [facility] Work Phone: Comment on above: Serial Specimen #1, #2 or #3? 1'TROP' Serial specimen #1, #2, #3, or #4: [address] [place] [address] [place], [address] Basic metabolic 2000 panel 115 mg/dL Abnormal 70-110 [facility] Work Phone: Comment on above: Fasting Glucose resu lt from 110 to <126 mg/dLsuggests IMPAIRED HOMEOSTASIS per A.D.A. criteria. Serial Specimen #1, #2 or #3? 1'TROP' Serial specimen #1, #2, #3, or #4: [address] [place] [address] [place], [address] Basic metabolic 2000 panel 36 mL/min Abnormal [facility] Work Phone: Comment on above: Non- GFR Calc Serial Specimen #1, #2 or #3? 1'TROP' Serial specimen #1, #2, #3, or #4: [address] [place] [address] [place], [address] Basic metabolic 2000 panel 25.0 mmol/L Normal 21.0-32.0 [facility] Work Phone: Comment on above: Serial Specimen #1, #2 or #3? 1'TROP' Serial specimen #1, #2, #3, or #4: [address] [place] [address] [place], [place], [address] Basic metabolic 2000 panel 27.45 ml/min Normal [facility] Work Phone: Comment on above: Serial Specimen #1, #2 or #3? 1'TROP' Serial specimen #1, #2, #3, or #4: [address] [place] [address] [place], [place], [phone] CBC W/Diff, AutomatedOrdered By: Half Sole Fitter on 04-23-2016 Absolute Neut 3.8 {X10_3/uL} Normal 2.0-7.7 Compreh ensive Internal Medicine Work Phone: Comment on above: [facility] [address] [place], [address] Basophils/100 WBC (Bld) 0.2 % Normal 0-1 [facility] Work Phone: Comment on above: [facility] [address] [place], [address] Basophils/100 WBC Auto (Bld) 0.2 % Normal 0-1 [facility] Work Phone: Eosinophils/100 WBC (Bld) 1.9 % Normal 0-5 [facility] Work Phone: Comment on above: [facility] [address] [place], [address] Eosinophils/100 WBC Auto (Bld) 1.9 % Normal 0-5 [facility] Work Phone: Erythrocyte distribution width Auto Ratio (RBC) 13.7 % Normal 11.6-14.6 [facility] Work Phone: Erythrocyte distribution width Ratio (RBC) 13.7 % Normal 11.6-14.6 [facility] Work Phone: Comment on above: [facility] [address] [place], [place], [phone] Hematocrit Auto Volume Fraction (Bld) 39.5 % Normal 37-47 [facility] Work Phone: Hematocrit Volume Fraction (Bld) 39.5 % Normal 37-47 [facility] Work Phone: Comment on above: [facility] [address] [place], [address] Hemoglobin mass conc (Bld) 12.9 g/dL Normal 12.0-15.0 [facility] Work Phone: Comment on above: [place] [address] [place], [address] IM GRAN % 0.200 % Normal 0.0-0.9 [facility] Work Phone: Comment on above: IG% - Immature Granu locytes (promyelocytes, myelocytes andmetamyelocytes) > 1% indicates that a LEFT SHIFT is Present. [place] [address] [place], [place], [phone] Lymphocytes #/vol (Bld) 0.82 {X10_3/ul} Abnormal 0.83-4.51 [facility] Work Phone: Comment on above: [place] [address] [place], [address] Lymphocytes/100 WBC (Bld) 15.9 % Abnormal 19-41 [facility] Work Phone: Comment on above: [facility] [address] [place], [address] Lymphocytes/100 WBC Auto (Bld) 15.9 % Abnormal 19-41 [facility] Work Phone: MCH Auto Entitic mass (RBC) 28.4 pg Normal 27.0-32.0 [facility] Work Phone: MCH Entitic mass (RBC) 28.4 pg Normal 27.0-32.0 Co mprehensive [facility] Work Phone: Comment on above: [facility] [address] [place], [address] MCHC Auto mass conc (RBC) 32.7 {g/gl} Normal 32-36 [facility] Work Phone: MCHC mass conc (RBC) 32.7 {g/gl} Normal 32-36 [facility] prehensive Internal Medicine Work Phone: Comment on above: [facility] [address] [place], [address] MCV Auto Entitic volume (RBC) 86.8 fL Normal 81-99 [facility] Work Phone: MCV Entitic volume (RBC) 86.8 fL Normal 81-99 [facility] Work Phone: Comment on above: [facility] [address] [place], [address] Monocytes/100 WBC (Bld) 7.7 % Normal 0-10 [facility] Work Phone: Comment on above: [facility] [address] [place], [address] Monocytes/100 WBC Auto (Bld) 7.7 % Normal 0-10 [facility] Work Phone: Neutrophils/100 WBC (Bld) 74.1 % Abnormal 47-70 [facility] Work Phone: Comment on above: [facility] [address] [place], [address] Neutrophils/100 WBC Auto (Bld) 74.1 % Abnormal 47-70 [facility] Work Phone: Platelet mean volume Auto Entitic volume (Bld) 9.4 fL Normal 6.2-12.0 [facility] Work Phone: Platelet mean volume Entitic volume (Bld) 9.4 fL Normal 6.2-12.0 Comprehensi Internal Medicine Work Phone: Comment on above: [facility] [address] [place], [address] Platelets #/vol (Bld) 242 10*3/uL Normal 150-[address] [facility] Work Phone: Comment on above: [facility] [address] [place], [address] Platelets Auto #/vol (Bld) 242 10*3/uL Normal 150-450 [facility] Work Phone: RBC #/vol (Bld) 4.55 {M/mm3} Normal 4.2-5.4 Compreh ensive Internal Medicine Work Phone: Comment on above: [facility] [address] [place], [address] RBC Auto #/vol (Bld) 4.55 {M/mm3} Normal 4.2-5.[address] [facility] Work Phone: RDW SD 43.4 fL Normal 35.1-43.9 [facility] Work Phone: Comment on above: [facility] [address] [place], [address] WBC #/vol (Bld) 5.2 10*3/uL Normal 4.4-11.0 Comprehe nsive Internal Medicine Work Phone: Comment on above: [facility] [address] [place], [address] WBC Auto #/vol (Bld) 5.2 10*3/uL Normal 4.4-11.0 Com prehensive Internal Medicine Work Phone: CBC W/Diff, Automated 0.200 % Normal 0.0-0.9 [facility] prehensive Internal Medicine Work Phone: Comment on above: IG% - Immature Granu locytes (promyelocytes, myelocytes andmetamyelocytes) > 1% indicates that a LEFT SHIFT is Present. CBC W/Diff, Automated 3.8 {X10_3/uL} Normal 2.0-7.7 [facility] Internal Medicine Work Phone: CBC W/Diff, Automated 0.82 {X10_3/ul} Abnormal 0.83-4.51 [facility] Internal Medicine Work Phone: CBC W/Diff, Automated 43.4 fL Normal 35.1-43.9 [facility] Internal Medicine Work Phone: CK-MB Quantitative and Index Ordered By: Half Sole Fitter on 04-23-2016 CK.MB mass conc 1.8 ng/mL Normal 0.0-5.0 [facility] Internal Medicine Work Phone: Comment on above: CK-MB and RI Interpr etation MB Relative Index Non-AMI 5 5 > 4 Serial Specimen #1, #2 or #3? 1'TROP' Serial specimen #1, #2, #3, or #4: [address] [place] [address] [place], [address] CK-MB Quantitative and Index 1.8 ng/mL Normal 0.0-5.0 [facility] Internal Medicine Work Phone: Comment on above: CK-MB and RI Interpr etation MB Relative Index Non-AMI 5 5 > 4 CK-MB Quantitative and Index 135 U/L Normal 26-192 [facility] Internal Medicine Work Phone: Comment on above: Serial Specimen #1, #2 or #3? 1'TROP' Serial specimen #1, #2, #3, or #4: [address] [place] [address] [place], [address] CK-MB Quantitative and Index 1.3 % Normal 0.0-1.4 [facility] Internal Medicine Work Phone: Comment on above: RELATIVE INDEX >1.5% IS PRESUMPTIVELY POSITIVE Serial Specimen #1, #2 or #3? 1'TROP' Serial specimen #1, #2, #3, or #4: [address] [place] [address] [place], [place], [address] LipaseOrdered By: System Man ager on 04-23-2016 Lipase enzyme act/vol 192 U/L Normal 73-393 [facility] Work Phone: Comment on above: [facility] spital [address] [place], [place], [phone] Liver ProfileOrdered By: Johan tem Research Associate Quality Control Qc on 04-23-2016 Albumin mass conc 3.4 g/dL Normal 3.4-5.0 [facility] Work Phone: Comment on above: [facility] spital [address] [place], [place], [address] ALP enzyme act/vol 41 U/L Abnormal 50-136 [facility] Internal Medicine Work Phone: Comment on above: [facility] [address] [place], [place], [address] ALT enzyme act/vol 37 U/L Normal 12-78 [facility] Internal Medicine Work Phone: Comment on above: [facility] [address] [place], [address] AST enzyme act/vol 43 U/L Abnormal 15-37 [facility] Internal Medicine Work Phone: Comment on above: [facility] [address] [place], [place], [address] Bilirubin mass conc 0.40 mg/dL Normal 0.20-1.00 [facility] Work Phone: Comment on above: [facility] [address] [place], [place], [address] Bilirubin.direct mass conc 0.21 mg/dL Normal 0.00-0.30 [facility] Work Phone: Comment on above: [facility] [address] [place], [address] Globulin Calculated mass conc (S) 3.8 g/dL Abnormal 2.3-3.5 [facility] Work Phone: Globulin mass conc (S) 3.8 g/dL Abnormal 2.3-3.5 Co mprehensive [facility] Work Phone: Comment on above: [facility] [address] [place], [address] Protein mass conc 7.2 g/dL Normal 6.4-8.2 Compreh ensive Internal Medicine Work Phone: Comment on above: [facility] [address] [place], [address] Troponin-IOrdered By: Half Sole Fitter on 04-23-2016 Troponin I.cardiac mass conc ng/mL Normal [facility] Work Phone: Comment on above: TROPONIN-I EXPECTED VALUES <0.05 NEGATIVE 0.06 - 0.59 AT RISK OF IN > OR = 0.60 SUGGEST IN Serial Specimen #1, #2 or #3? 1'TROP' Serial specimen #1, #2, #3, or #4: 1[facility] [address] [place], [address] URINE JESÚS CULTURE-JOHNY COL C OUNT ([id number])Ordered By: Half Sole Fitter on 04-19-2016 Bacteria identified Cx Nom (U) Final report Normal [facility] Work Phone: Comment on above: PATIENT NOT FASTINGP ERFORMED BY: [employer] [facility] [id number] Information: SRC:UR [id number] Bacteria identified Cx Nom (U) MUG Normal [facility] Work Phone: Comment on above: Mixed urogenital jese ra25,000-50,000 colony forming units per mL PATIENT NOT FASTINGP ERFORMED BY: [employer] [facility] [id number] Information: SRC:UR [id number] Urinalysis, Office ([phone])Or dered By: Fiorella Whelan on 04-19-2016 Bilirubin [...] Medicine Work Phone: Rapid Strep Test, Office ([phone])Ordered By: Lena Sandra on 03-14-2016 S. pyogenes Ag EIA Ql (Throat) Negative Normal [facility]; [facility] Work Phone: S. pyogenes Ag IA Ql (Unsp spec) Negative Normal [facility] Work Phone: Throat Culture ([id number])Ordere d By: Half Sole Fitter on 03-14-2016 Bacteria identified Respiratory culture Nom (Unsp spec) Final report Normal [facility] Work Phone: Comment on above: PATIENT NOT FASTINGP ERFORMED BY: [employer] [id number] Information: SRC:THRT [id number] Bacteria identified Respiratory culture Nom (Unsp spec) RRF Normal [facility] Work Phone: Comment on above: Routine respiratory brendon PATIENT NOT FASTINGP ERFORMED BY: [employer] [id number] Information: SRC:LIYAHT [id number] HgA1C , Office ([phone])Ordere d By: Fiorella Whelan on 03-11-2016 Hemoglobin A1c/Hemoglobin.total mass fraction (Bld) 5.8 % Normal 4.6 - 7.1 Comprehensiv e Internal Medicine Work Phone: AFP, Tumor MarkerOrdered By: Half Sole Fitter on 03-04-2016 AFP.tumor marker mass conc 3.0 ng/mL Normal 0.0-8.3 [facility] Work Phone: Comment on above: Cristofer ECLIA methodol ogyPerformed at: [facility] [employer] [id number] Director: Dylan Alamo PhD, Phone: [phone]; ADDENDA: non-emergent and has apt friday Is Patient ? [facility] (refer to report for specific site)refer to report for address and phone number CBC W/Diff, AutomatedOrdered By: Half Sole Fitter on 03-04-2016 Absolute Neut 3.0 {X10_3/uL} Normal 2.0-7.7 Compreh ensive Internal Medicine Work Phone: Comment on above: [facility] [address] [place], [address] Basophils/100 WBC (Bld) 0.5 % Normal 0-1 [facility] Work Phone: Comment on above: [facility] [address] [place], [address] Basophils/100 WBC Auto (Bld) 0.5 % Normal 0-1 [facility] Work Phone: Eosinophils/100 WBC (Bld) 2.9 % Normal 0-5 [facility] Work Phone: Comment on above: [place] [address] [place], [address] Eosinophils/100 WBC Auto (Bld) 2.9 % Normal 0-5 [facility] Work Phone: Erythrocyte distribution width Auto Ratio (RBC) 14.0 % Normal 11.6-14.6 [facility] Work Phone: Erythrocyte distribution width Ratio (RBC) 14.0 % Normal 11.6-14.6 [facility] Work Phone: Comment on above: [place] [address] [place], [address] Hematocrit Auto Volume Fraction (Bld) 42.2 % Normal 37-47 [facility] Work Phone: Hematocrit Volume Fraction (Bld) 42.2 % Normal 37-47 [facility] Work Phone: Comment on above: [place] [address] [place], [address] Hemoglobin mass conc (Bld) 13.6 g/dL Normal 12.0-15.0 [facility] Work Phone: Comment on above: [place] [address] [place], [address] IM GRAN % 0.000 % Normal 0.0-0.9 [facility] Work Phone: Comment on above: IG% - Immature Granu locytes (promyelocytes, myelocytes andmetamyelocytes) > 1% indicates that a LEFT SHIFT is Present. [facility] [address] [place], [place], [address] Lymphocytes #/vol (Bld) 1.97 {X10_3/ul} Normal 0.83-4.51 [facility] Work Phone: Comment on above: [facility] [address] [place], [address] Lymphocytes/100 WBC (Bld) 35.2 % Normal 19-41 [facility] Work Phone: Comment on above: [facility] [address] [place], [address] Lymphocytes/100 WBC Auto (Bld) 35.2 % Normal 19-41 [facility] Work Phone: MCH Auto Entitic mass (RBC) 28.6 pg Normal 27.0-32.0 [facility] Work Phone: MCH Entitic mass (RBC) 28.6 pg Normal 27.0-32.0 [facility] Internal Medicine Work Phone: Comment on above: [facility] [address] [place], [address] MCHC Auto mass conc (RBC) 32.2 {g/gl} Normal 32-36 [facility] Work Phone: MCHC mass conc (RBC) 32.2 {g/gl} Normal 32-36 [facility] Internal Medicine Work Phone: Comment on above: [facility] [address] [place], [place], [id number] MCV Auto Entitic volume (RBC) 88.7 fL Normal 81-99 [facility] Work Phone: MCV Entitic volume (RBC) 88.7 fL Normal 81-99 [facility] Work Phone: Comment on above: [facility] [address] [place], [address] Monocytes/100 WBC (Bld) 7.9 % Normal 0-10 [facility] Work Phone: Comment on above: [facility] [address] [place], [address] Monocytes/100 WBC Auto (Bld) 7.9 % Normal 0-10 [facility] Work Phone: Neutrophils/100 WBC (Bld) 53.5 % Normal 47-70 [facility] Work Phone: Comment on above: [facility] [address] [place], [address] Neutrophils/100 WBC Auto (Bld) 53.5 % Normal 47-70 [facility] Work Phone: Platelet mean volume Auto Entitic volume (Bld) 9.4 fL Normal 6.2-12.0 [facility] Work Phone: Platelet mean volume Entitic volume (Bld) 9.4 fL Normal 6.2-12.0 Comprehensi ve Internal Medicine Work Phone: Comment on above: [facility] [address] [place], [address] Platelets #/vol (Bld) 366 10*3/uL Normal 150-450 Co mprehensive Internal Medicine Work Phone: Comment on above: [facility] [address] [place], [address] Platelets Auto #/vol (Bld) 366 10*3/uL Normal 150-450 [facility] Work Phone: RBC #/vol (Bld) 4.76 {M/mm3} Normal 4.2-5.4 Compreh ensive Internal Medicine Work Phone: Comment on above: [facility] [address] [place], [address] RBC Auto #/vol (Bld) 4.76 {M/mm3} Normal 4.2-5.4 Co mprehensive [facility] Medicine Work Phone: RDW SD 45.3 fL Abnormal 35.1-43.9 [facility] Work Phone: Comment on above: [facility] [address] [place], [place], [address] WBC #/vol (Bld) 5.6 10*3/uL Normal 4.4-11.0 Comprehe nsive Internal Medicine Work Phone: Comment on above: [facility] [address] [place], [address] WBC Auto #/vol (Bld) 5.6 10*3/uL Normal 4.4-11.0 [facility] prehensive Internal Medicine Work Phone: CBC W/Diff, Automated 3.0 {X10_3/uL} Normal 2.0-7.7 [facility] Work Phone: CBC W/Diff, Automated 1.97 {X10_3/ul} Normal 0.83-4.51 [facility] Work Phone: CBC W/Diff, Automated 45.3 fL Abnormal 35.1-43.9 [facility] prehensive Internal Medicine Work Phone: CBC W/Diff, Automated 0.000 % Normal 0.0-0.9 [facility] prehensive Internal Medicine Work Phone: Comment on above: IG% - Immature Granu locytes (promyelocytes, myelocytes andmetamyelocytes) > 1% indicates that a LEFT SHIFT is Present. Comprehensive Metabolic Prof ilOrdered By: Half Sole Fitter on 03-04-2016 Comprehensive metabolic 2000 panel 22 mg/dL Abnormal 7-18 Comprehensi ve Internal Medicine Work Phone: Comment on above: [facility] [address] [place], [place], [address] ; non-emergent till apt Comprehensive metabolic 2000 panel 95 mg/dL Normal 70-110 Comprehensi ve Internal Medicine Work Phone: Comment on above: [facility] [address] [place], [place], [id number] ; non-emergent till apt Comprehensive metabolic 2000 panel 53 mL/min Abnormal Comprehensi ve Internal Medicine Work Phone: Comment on above: GFR Calc [facility] [address] [place], [place], [address] ; non-emergent till apt Comprehensive metabolic 2000 panel 0.50 mg/dL Normal 0.20-1.00 Comprehensi ve Internal Medicine Work Phone: Comment on above: [facility] [address] [place], [place], [address] ; non-emergent till apt Comprehensive metabolic 2000 panel 44 mL/min Abnormal Comprehensi ve Internal Medicine Work Phone: Comment on above: Non- GFR Calc [facility] [address] [place], [place], [address] ; non-emergent till apt Comprehensive metabolic 2000 panel 1.0 {RATIO} Normal 0.9-2.4 Comprehensi ve Internal Medicine Work Phone: Comment on above: [facility] [address] [place], [place], [address] ; non-emergent till apt Comprehensive metabolic 2000 panel 17.1 {RATIO} Normal 10-20 Comprehensi ve Internal Medicine Work Phone: Comment on above: [facility] [address] [place], [place], [address] ; non-emergent till apt Comprehensive metabolic 2000 panel 1.29 mg/dL Abnormal 0.55-1.20 Comprehensi ve Internal Medicine Work Phone: Comment on above: The validity of the calculated GFR AND GFRAA in patients over70 years has not been determined. Clinical correlation isessential. [facility] [address] [place], [place], [address] ; non-emergent till apt Comprehensive metabolic 2000 panel 4.4 mmol/L Normal 3.5-5.1 Comprehensi ve Internal Medicine Work Phone: Comment on above: [facility] [address] [place], [place], [address] ; non-emergent till apt Comprehensive metabolic 2000 panel 8.9 mg/dL Normal 8.5-10.1 Comprehensi ve Internal Medicine Work Phone: Comment on above: [facility] [address] [place], [place], [address] ; non-emergent till apt Comprehensive metabolic 2000 panel 24 U/L Normal 15-37 Comprehensi ve Internal Medicine Work Phone: Comment on above: [facility] [address] [place], [place], [address] ; non-emergent till apt Comprehensive metabolic 2000 panel 109 mmol/L Abnormal 98-107 Comprehensi ve Internal Medicine Work Phone: Comment on above: [facility] [address] [place], [place], [address] ; non-emergent till apt Comprehensive metabolic 2000 panel 7.4 g/dL Normal 6.4-8.2 Comprehensi ve Internal Medicine Work Phone: Comment on above: [facility] [address] [place], [place], [address] ; non-emergent till apt Comprehensive metabolic 2000 panel 26.0 mmol/L Normal 21.0-32.0 Comprehensi ve Internal Medicine Work Phone: Comment on above: [facility] [address] [place], [place], [address] ; non-emergent till apt Comprehensive metabolic 2000 panel 3.7 g/dL Abnormal 2.3-3.5 Comprehensi ve Internal Medicine Work Phone: Comment on above: [facility] [address] [place], [place], [address] ; non-emergent till apt Comprehensive metabolic 2000 panel 8 1 Normal 5-15 Comprehensi ve Internal Medicine Work Phone: Comment on above: [facility] [address] [place], [place], [address] ; non-emergent till apt Comprehensive metabolic 2000 panel 143 mmol/L Normal 136-145 Comprehensi ve Internal Medicine Work Phone: Comment on above: [facility] [address] [place], [address] ; non-emergent till apt Comprehensive metabolic 2000 panel 30 U/L Normal 12-78 Comprehensi ve Internal Medicine Work Phone: Comment on above: [facility] [address] [place], [address] ; non-emergent till apt Comprehensive metabolic 2000 panel 32 U/L Abnormal 50-136 Comprehensi ve Internal Medicine Work Phone: Comment on above: [facility] [address] [place], [place], [address] ; non-emergent till apt Lipid ProfileOrdered By: Johan tem Research Associate Quality Control Qc on 03-04-2016 Cholesterol in HDL mass conc 71 mg/dL Normal [facility] Work Phone: Comment on above: Reference Range HDL <40 mg/dL Low HDL Cholesterol HDL >or= 60 mg/dL High HDL Cholesterol [facility] [address] [place], [address] Cholesterol in LDL mass conc 42 mg/dL Normal 0-130 [facility] Work Phone: Comment on above: [facility] [address] [place], [address] Cholesterol in VLDL mass conc 18 mg/dL Normal 5-40 [facility] Work Phone: Comment on above: [facility] [address] [place], [place], [id number] Cholesterol mass conc 131 mg/dL Normal Com prehensive Internal Medicine Work Phone: Comment on above: <200 mg/dL Desirable 200-240 mg/dL Borderline >240 mg/dL High Risk [facility] [address] [place], [place], [address] Triglyceride mass conc 89 mg/dL Normal Co mprehensive Internal Medicine Work Phone: Comment on above: Serum Triglycerides Reference Interval Normal <150 mg/dL Borderline high 150 - 199 mg/dL High 200 - 499 mg/dL Very High > or = 500 mg/dL [facility] [address] [place], [place], [address] Lipid Profile 18 mg/dL Normal 5-40 Comprehensi ve Internal Medicine Work Phone: URINE JESÚS CULTURE-JOHNY COL C OUNT ([id number])Ordered By: Half Sole Fitter on 11-03-2015 Bacteria identified Cx Nom (U) Final report Normal Comprehensive [facility] Work Phone: Comment on above: PATIENT NOT FASTINGP ERFORMED BY: [facility] [id number] Guerrilla RFCarolinas [facility] [id number] Information: SRC:URC [id number] Bacteria identified Cx Nom (U) MUG Normal [facility] Work Phone: Comment on above: Mixed urogenital jese ra50,000-100,000 colony forming units per mL PATIENT NOT FASTINGP ERFORMED BY: [employer] [facility] [id number] Guerrilla RFCarolinas [facility] [id number] Information: SRC:UR [id number] Urinalysis, Office ([phone])Or dered By: Mikhail Gutierrez on 11-03-2015 Bilirubin [...] [facility] Work Phone: Urinalysis, Office ([phone])on 11-03-2015 Bilirubin Ql (U) Negative Normal Comprehe [...] Internal Medicine Work Phone: HgA1C , Office ([phone])Ordere d By: Monet Holman on 10-09-2015 Hemoglobin A1c/Hemoglobin.total mass fraction (Bld) 5.9 % Normal 4.6 - 7.1 Comprehensiv e Internal Medicine Work Phone: CBC W/Diff, AutomatedOrdered By: Half Sole Fitter on 09-30-2015 Absolute Neut 3.0 {X10_3/uL} Normal 2.0-7.7 Compreh ensive Internal Medicine Work Phone: Comment on above: [facility] [address] [place], [address] Basophils/100 WBC (Bld) 0.7 % Normal 0-1 [facility] Work Phone: Comment on above: [facility] [address] [place], [address] Basophils/100 WBC Auto (Bld) 0.7 % Normal 0-1 [facility] Work Phone: Eosinophils/100 WBC (Bld) 3.1 % Normal 0-5 [facility] Work Phone: Comment on above: [facility] [address] [place], [address] Eosinophils/100 WBC Auto (Bld) 3.1 % Normal 0-5 [facility] Work Phone: Erythrocyte distribution width Auto Ratio (RBC) 13.8 % Normal 11.6-14.6 [facility] Work Phone: Erythrocyte distribution width Ratio (RBC) 13.8 % Normal 11.6-14.6 [facility] Work Phone: Comment on above: [facility] [address] [place], [address] Hematocrit Auto Volume Fraction (Bld) 38.2 % Normal 37-47 [facility] Work Phone: Hematocrit Volume Fraction (Bld) 38.2 % Normal 37-47 [facility] Work Phone: Comment on above: [facility] [address] [place], [address] Hemoglobin mass conc (Bld) 12.4 g/dL Normal 12.0-15.0 [facility] Work Phone: Comment on above: [facility] [address] [place], [address] IM GRAN % 0.000 % Normal 0.0-0.9 [facility] Work Phone: Comment on above: IG% - Immature Granu locytes (promyelocytes, myelocytes andmetamyelocytes) > 1% indicates that a LEFT SHIFT is Present. [facility] [address] [place], [place], [phone] Lymphocytes #/vol (Bld) 1.90 {X10_3/ul} Normal 0.83-4.51 [facility] Work Phone: Comment on above: [facility] [address] [place], [phone] Lymphocytes/100 WBC (Bld) 34.6 % Normal 19-41 [facility] Work Phone: Comment on above: [facility] [address] [place], [address] Lymphocytes/100 WBC Auto (Bld) 34.6 % Normal 19-41 [facility] Work Phone: MCH Auto Entitic mass (RBC) 28.8 pg Normal 27.0-32.0 [facility] Work Phone: MCH Entitic mass (RBC) 28.8 pg Normal 27.0-32.0 [facility] Internal Medicine Work Phone: Comment on above: [facility] [address] [place], [address] MCHC Auto mass conc (RBC) 32.5 {g/gl} Normal 32-36 [facility] Work Phone: MCHC mass conc (RBC) 32.5 {g/gl} Normal 32-36 [facility] Internal Medicine Work Phone: Comment on above: [facility] [address] [place], [place], [id number] MCV Auto Entitic volume (RBC) 88.8 fL Normal 81-99 [facility] Work Phone: MCV Entitic volume (RBC) 88.8 fL Normal 81-99 [facility] Work Phone: Comment on above: [facility] [address] [place], [address] Monocytes/100 WBC (Bld) 7.7 % Normal 0-10 [facility] Work Phone: Comment on above: [facility] [address] [place], [address] Monocytes/100 WBC Auto (Bld) 7.7 % Normal 0-10 [facility] Work Phone: Neutrophils/100 WBC (Bld) 53.9 % Normal 47-70 [facility] Work Phone: Comment on above: [facility] [address] [place], [address] Neutrophils/100 WBC Auto (Bld) 53.9 % Normal 47-70 [facility] Work Phone: Platelet mean volume Auto Entitic volume (Bld) 9.1 fL Normal 6.2-12.0 [facility] Work Phone: Platelet mean volume Entitic volume (Bld) 9.1 fL Normal 6.2-12.0 Comprehensi ve Internal Medicine Work Phone: Comment on above: [facility] [address] [place], [address] Platelets #/vol (Bld) 325 10*3/uL Normal 150-450 [facility] Internal Medicine Work Phone: Comment on above: [facility] [address] [place], [address] Platelets Auto #/vol (Bld) 325 10*3/uL Normal 150-450 [facility] Work Phone: RBC #/vol (Bld) 4.30 {M/mm3} Normal 4.2-5.4 Compreh ensive Internal Medicine Work Phone: Comment on above: [facility] [address] [place], [address] RBC Auto #/vol (Bld) 4.30 {M/mm3} Normal 4.2-5.4 [facility] Work Phone: RDW SD 44.0 fL Abnormal 35.1-43.9 [facility] Work Phone: Comment on above: [facility] [address] [place], [address] WBC #/vol (Bld) 5.5 10*3/uL Normal 4.4-11.0 Comprehe [facility] Internal Medicine Work Phone: Comment on above: [facility] [address] [place], [address] WBC Auto #/vol (Bld) 5.5 10*3/uL Normal 4.4-11.0 [facility] prehensive Internal Medicine Work Phone: CBC W/Diff, Automated 44.0 fL Abnormal 35.1-43.9 [facility]: CBC W/Diff, Automated 0.000 % Normal 0.0-0.9 [facility] Work Phone: Comment on above: IG% - Immature Granu locytes (promyelocytes, myelocytes andmetamyelocytes) > 1% indicates that a LEFT SHIFT is Present. CBC W/Diff, Automated 3.0 {X10_3/uL} Normal 2.0-7.7 [facility] Work Phone: CBC W/Diff, Automated 1.90 {X10_3/ul} Normal 0.83-4.51 [facility] Internal Medicine Work Phone: Comprehensive Metabolic Prof ilOrdered By: Half Sole Fitter on 09-30-2015 Comprehensive metabolic 2000 panel 27 U/L Normal 15-37 Comprehensi ve Internal Medicine Work Phone: Comment on above: [facility] [address] [place], [place], [phone] ; non-emergent till apt Comprehensive metabolic 2000 panel 32 U/L Abnormal 50-136 Comprehensi ve Internal Medicine Work Phone: Comment on above: [facility] [address] [place], [place], [address] ; non-emergent till apt Comprehensive metabolic 2000 panel 34 U/L Normal 12-78 Comprehensi ve Internal Medicine Work Phone: Comment on above: [facility] [address] [place], [place], [address] ; non-emergent till apt Comprehensive metabolic 2000 panel 0.40 mg/dL Normal 0.20-1.00 Comprehensi ve Internal Medicine Work Phone: Comment on above: [facility] [address] [place], [place], [phone] ; non-emergent till apt Comprehensive metabolic 2000 panel 141 mmol/L Normal 136-145 Comprehensi ve Internal Medicine Work Phone: Comment on above: [facility] [address] [place], [place], [phone] ; non-emergent till apt Comprehensive metabolic 2000 panel 4.1 mmol/L Normal 3.5-5.1 Comprehensi ve Internal Medicine Work Phone: Comment on above: [facility] [address] [place], [place], [phone] ; non-emergent till apt Comprehensive metabolic 2000 panel 108 mmol/L Abnormal 98-107 Comprehensi ve Internal Medicine Work Phone: Comment on above: [facility] [address] [place], [place], [address] ; non-emergent till apt Comprehensive metabolic 2000 panel 28.0 mmol/L Normal 21.0-32.0 Comprehensi ve Internal Medicine Work Phone: Comment on above: [facility] [address] [place], [place], [id number] ; non-emergent till apt Comprehensive metabolic 2000 panel 5 1 Normal 5-15 Comprehensi ve Internal Medicine Work Phone: Comment on above: [facility] [address] [place], [place], [address] ; non-emergent till apt Comprehensive metabolic 2000 panel 8.6 mg/dL Normal 8.5-10.1 Comprehensi ve Internal Medicine Work Phone: Comment on above: [facility] [address] [place], [place], [address] ; non-emergent till apt Comprehensive metabolic 2000 panel 17 mg/dL Normal 7-18 Comprehensi ve Internal Medicine Work Phone: Comment on above: [facility] [address] [place], [place], [phone] ; non-emergent till apt Comprehensive metabolic 2000 panel 1.20 mg/dL Normal 0.55-1.20 Comprehensi ve Internal Medicine Work Phone: Comment on above: The validity of the calculated GFR AND GFRAA in patients over70 years has not been determined. Clinical correlation isessential. [facility] [address] [place], [place], [address] ; non-emergent till apt Comprehensive metabolic 2000 panel 91 mg/dL Normal 70-110 Comprehensi ve Internal Medicine Work Phone: Comment on above: [facility] [address] [place], [place], [address] ; non-emergent till apt Comprehensive metabolic 2000 panel 47 mL/min Abnormal Comprehensi ve Internal Medicine Work Phone: Comment on above: Non- GFR Calc [facility] [address] [place], [place], [address] ; non-emergent till apt Comprehensive metabolic 2000 panel 57 mL/min Abnormal Comprehensi ve Internal Medicine Work Phone: Comment on above: GFR Calc [facility] [address] [place], [place], [address] ; non-emergent till apt Comprehensive metabolic 2000 panel 14.2 {RATIO} Normal 10-20 Comprehensi ve Internal Medicine Work Phone: Comment on above: [facility] [address] [place], [place], [address] ; non-emergent till apt Comprehensive metabolic 2000 panel 7.1 g/dL Normal 6.4-8.2 Comprehensi ve Internal Medicine Work Phone: Comment on above: [facility] [address] [place], [place], [phone] ; non-emergent till apt Comprehensive metabolic 2000 panel 3.6 g/dL Normal 3.4-5.0 Comprehensi ve Internal Medicine Work Phone: Comment on above: [facility] [address] [place], [place], [address] ; non-emergent till apt Comprehensive metabolic 2000 panel 3.5 g/dL Normal 2.3-3.5 Comprehensi ve Internal Medicine Work Phone: Comment on above: [facility] [address] [place], [place], [phone] ; non-emergent till apt Comprehensive metabolic 2000 panel 1.0 {RATIO} Normal 0.9-2.4 Comprehensi ve Internal Medicine Work Phone: Comment on above: [facility] [address] [place], [place], [phone] ; non-emergent till apt Lipid ProfileOrdered By: Johan tem Research Associate Quality Control Qc on 09-30-2015 Cholesterol in HDL mass conc 65 mg/dL Normal [facility] Work Phone: Comment on above: Reference Range HDL <40 mg/dL Low HDL Cholesterol HDL >or= 60 mg/dL High HDL Cholesterol [facility] [address] [place], [place], [id number] Cholesterol in LDL mass conc 54 mg/dL Normal 0-130 [facility] Work Phone: Comment on above: [facility] [address] [place], [place], [phone] Cholesterol in VLDL mass conc 20 mg/dL Normal 5-40 [facility] Work Phone: Comment on above: [facility] [address] [place], [place], [address] Cholesterol mass conc 139 mg/dL Normal Com prehensive Internal Medicine Work Phone: Comment on above: <200 mg/dL Desirable 200-240 mg/dL Borderline >240 mg/dL High Risk [facility] [address] [place], [address] Triglyceride mass conc 99 mg/dL Normal Co mprehensive Internal Medicine Work Phone: Comment on above: Serum Triglycerides Reference Interval Normal <150 mg/dL Borderline high 150 - 199 mg/dL High 200 - 499 mg/dL Very High > or = 500 mg/dL [facility] [address] [place], [address] Lipid Profile 20 mg/dL Normal 5-40 Comprehensi ve Internal Medicine Work Phone: HgA1C , Office ([phone])Ordere d By: Monet Holman on 06-21-2015 Hemoglobin A1c/Hemoglobin.total mass fraction (Bld) 6.1 % Normal 4.6 - 7.1 Comprehensiv e Internal Medicine Work Phone: AFP, Tumor MarkerOrdered By: Half Sole Fitter on 06-17-2015 AFP.tumor marker mass conc 2.6 ng/mL Normal 0.0-8.3 [facility] Work Phone: Comment on above: Cristofer ECLIA methodol ogyPerformed at: [facility] [address] [id number] Director: Russ Elias PhD, Phone: [phone]; ADDENDA: normal and had apt this week Is Patient ? NTest performed at:[facility] [address] [place] [address] Comprehensive Metabolic Prof ilOrdered By: Half Sole Fitter on 06-17-2015 Comprehensive metabolic 2000 panel 7.0 g/dL Normal 6.4-8.2 Comprehensi ve Internal Medicine Work Phone: Comment on above: Test performed at:[facility] [address] [place] [address] ; non-emergent till apt Comprehensive metabolic 2000 panel 37 U/L Normal 12-78 Comprehensi ve Internal Medicine Work Phone: Comment on above: Test performed at:[facility] [address] [place] [address] ; non-emergent till apt Comprehensive metabolic 2000 panel 0.50 mg/dL Normal 0.20-1.00 Comprehensi ve Internal Medicine Work Phone: Comment on above: Test performed at:[facility] [address] [place] [address] ; non-emergent till apt Comprehensive metabolic 2000 panel 94 mg/dL Normal 70-110 Comprehensi ve Internal Medicine Work Phone: Comment on above: Test performed at:[facility] [address] [place] [address] ; non-emergent till apt Comprehensive metabolic 2000 panel 18 mg/dL Normal 7-18 Comprehensi ve Internal Medicine Work Phone: Comment on above: Test performed at:[facility] [address] [place] [address] ; non-emergent till apt Comprehensive metabolic 2000 panel 143 mmol/L Normal 136-145 Comprehensi ve Internal Medicine Work Phone: Comment on above: Test performed at:[facility] [address] [place] [address] ; non-emergent till apt Comprehensive metabolic 2000 panel 1.4 mg/dL Abnormal 0.6-1.0 Comprehensi ve Internal Medicine Work Phone: Comment on above: Test performed at:[facility] [address] [place] [address] ; non-emergent till apt Comprehensive metabolic 2000 panel 4.1 mmol/L Normal 3.5-5.1 Comprehensi ve Internal Medicine Work Phone: Comment on above: Test performed at:[facility] [address] [place] [address] ; non-emergent till apt Comprehensive metabolic 2000 panel 40 mL/min Abnormal Comprehensi ve Internal Medicine Work Phone: Comment on above: Test performed at:[facility] [address] [place] [address] ; non-emergent till apt Comprehensive metabolic 2000 panel 107 mmol/L Normal 98-107 Comprehensi ve Internal Medicine Work Phone: Comment on above: Test performed at:[facility] [address] [place] [address] ; non-emergent till apt Comprehensive metabolic 2000 panel 8.9 mg/dL Normal 8.5-10.1 Comprehensi ve Internal Medicine Work Phone: Comment on above: Test performed at:[facility] [address] [place] [address] ; non-emergent till apt Comprehensive metabolic 2000 panel 25.0 mmol/L Normal 21.0-32.0 Comprehensi ve Internal Medicine Work Phone: Comment on above: Test performed at:[facility] [address] [place] [address] ; non-emergent till apt Comprehensive metabolic 2000 panel 11 1 Normal 5-15 Comprehensi ve Internal Medicine Work Phone: Comment on above: Test performed at:[facility] [address] [place] [address] ; non-emergent till apt Comprehensive metabolic 2000 panel 22 U/L Normal 15-37 Comprehensi ve Internal Medicine Work Phone: Comment on above: Test performed at:[facility] [address] [place] [address] ; non-emergent till apt Comprehensive metabolic 2000 panel 1.1 {RATIO} Normal 0.9-2.4 Comprehensi ve Internal Medicine Work Phone: Comment on above: Test performed at:[facility] [address] [place] [address] ; non-emergent till apt Comprehensive metabolic 2000 panel 27 U/L Abnormal 50-136 Comprehensi ve Internal Medicine Work Phone: Comment on above: Test performed at:[facility] [address] [place] [address] ; non-emergent till apt Comprehensive metabolic 2000 panel 3.4 g/dL Normal 2.7-4.2 Comprehensi ve Internal Medicine Work Phone: Comment on above: Test performed at:[facility] [address] [place] [address] ; non-emergent till apt Comprehensive metabolic 2000 panel 3.6 g/dL Normal 3.4-5.0 Comprehensi ve Internal Medicine Work Phone: Comment on above: Test performed at:[facility] [address] [place] [address] ; non-emergent till apt Comprehensive metabolic 2000 panel 48 mL/min Abnormal Comprehensi ve Internal Medicine Work Phone: Comment on above: Test performed at:[facility] [address] [place] [address] ; non-emergent till apt Comprehensive metabolic 2000 panel 12.9 {RATIO} Normal 10-20 Comprehensi ve Internal Medicine Work Phone: Comment on above: Test performed at:[facility] [address] [place] [address] ; non-emergent till apt Lipid ProfileOrdered By: Johan tem Research Associate Quality Control Qc on 06-17-2015 Cholesterol in HDL mass conc 58 mg/dL Normal Comprehensive [facility] Medicine Work Phone: Comment on above: Reference Range HDL <40 mg/dL Low HDL Cholesterol HDL >or= 60 mg/dL High HDL Cholesterol Test performed at:[facility] [address] [place] [address] Cholesterol in LDL mass conc 74 mg/dL Normal 0-130 Comprehensive [facility] Work Phone: Comment on above: Test performed at:[facility] [address] [place] [address] Cholesterol in VLDL mass conc 22 mg/dL Normal 5-40 Comprehensive Internal Medicine Work Phone: Comment on above: Test performed at:[facility] [address] [place] [address] Cholesterol mass conc 154 mg/dL Normal Com prehensive Internal Medicine Work Phone: Comment on above: <200 mg/dL Desirable 200-240 mg/dL Borderline >240 mg/dL High Risk Test performed at:[facility] [address] [place] [address] Triglyceride mass conc 111 mg/dL Normal 0-199 Co mprehensive Internal Medicine Work Phone: Comment on above: Serum Triglycerides Reference Interval Normal <150 mg/dL Borderline high 150 - 199 mg/dL High 200 - 499 mg/dL Very High > or = 500 mg/dL Test performed at:[facility] [address] [place] [address] Lipid Profile 22 mg/dL Normal 5-40 Comprehensi ve Internal Medicine Work Phone: MicroalbOrdered By: Marcelino fox on 06-17-2015 Creatinine mass conc 5.3 {mg/g_CRE} Normal Comprehensive [facility] Medicine Work Phone: Comment on above: Test performed at:[facility] [address] [place] [address] Creatinine mass conc 139.0 mg/dL Normal Com prehensive Internal Medicine Work Phone: Comment on above: Test performed at:[facility] [address] [place] [address] Microalb 7.4 mg/L Normal Comprehensive Internal Medicine Work Phone: Comment on above: Test performed at:[facility] [address] [place] [address] Microalb 139.0 mg/dL Normal Comprehensive [facility] Medicine Work Phone: HgA1C , Office ([phone])Ordere d By: Idalia Ellis on 02-15-2015 Hemoglobin A1c/Hemoglobin.total mass fraction (Bld) 5.9 % Normal 4.6 - 7.1 Comprehensiv e Internal Medicine Work Phone: Comprehensive Metabolic Prof ilOrdered By: Half Sole Fitter on 02-11-2015 Albumin mass conc 3.9 g/dL Normal 3.4-5.0 Compreh ensive Internal Medicine Work Phone: Comment on above: Test performed at:[facility] [address] [place] [address] Albumin/Globulin mass ratio 1.1 {RATIO} Normal 0.9-2.4 Comprehensive [facility] Medicine Work Phone: Comment on above: Test performed at:[facility] [address] [place] [address] ALT enzyme act/vol 36 U/L Normal 12-78 Compre [facility] Internal Medicine Work Phone: Comment on above: Test performed at:[facility] [address] [place] [address] AST enzyme act/vol 27 U/L Normal 15-37 Compre [facility] Internal Medicine Work Phone: Comment on above: Test performed at:[facility] [address] [place] [address](200 Bilirubin mass conc 0.50 mg/dL Normal 0.00-4.00 Compr ehensive Internal Medicine Work Phone: Comment on above: Test performed at:[facility] [address] [place] [address] Calcium mass conc 8.7 mg/dL Normal 8.5-10.1 Compreh ensive Internal Medicine Work Phone: Comment on above: Test performed at:[facility] [address] [place] [address] Chloride molar conc 107 mmol/L Normal 98-107 Compr ensive Internal Medicine Work Phone: Comment on above: Test performed at:[facility] [address] [place] [address] CO2 molar conc 30.0 mmol/L Normal 21.0-32.0 Comprehen [facility] Internal Medicine Work Phone: Comment on above: Test performed at:[facility] [address] [place] [address] Creatinine mass conc 1.3 mg/dL Abnormal 0.6-1.0 Comp [facility] Work Phone: Comment on above: Test performed at:[facility] [address] [place] [address] GFR/1.73 sq M predicted among non-blacks MDRD vol rate/area (S/P/Bld) 43 mL/min/{1.73_m2} Abnormal Comprehe ive Internal Medicine Work Phone: Comment on above: Test performed at:[facility] [address] [place] [address] Globulin Calculated mass conc (S) 3.6 g/dL Normal 2.7-4.2 [facility] Work Phone: Globulin mass conc (S) 3.6 g/dL Normal 2.7-4.2 [facility] Work Phone: Comment on above: Test performed at:[facility] [address] [place] [address] Glucose mass conc 94 mg/dL Normal 70-110 Compreh ensive Internal Medicine Work Phone: Comment on above: Test performed at:[facility] [address] [place], [place] [address] Potassium molar conc 4.2 mmol/L Normal 3.5-5.1 Comp rehensive Internal Medicine Work Phone: Comment on above: Test performed at:[facility] [address] [place] [address] Protein mass conc 7.5 g/dL Normal 6.4-8.2 Compreh ensive Internal Medicine Work Phone: Comment on above: Test performed at:[facility] [address] [place] [address] Sodium molar conc 141 mmol/L Normal 136-145 Compreh ensive Internal Medicine Work Phone: Comment on above: Test performed at:[facility] [address] [place] [address] Urea nitrogen mass conc 19 mg/dL Abnormal 7-18 [facility] Medicine Work Phone: Comment on above: Test performed at:[facility] [address] [place] [address] Comprehensive Metabolic Profil 33 U/L Abnormal 50-136 [facility] Medicine Work Phone: Comment on above: Test performed at:[facility] [address] [place] [address] Comprehensive Metabolic Profil 14.6 {RATIO} Normal 10-20 [facility] Work Phone: Comment on above: Test performed at:[facility] [address] [address] Comprehensive Metabolic Profil 52 mL/min Abnormal [facility] Medicine Work Phone: Comment on above: Test performed at:[facility] [address] [place], [place] [id number] Comprehensive Metabolic Profil 4 1 Abnormal 5-15 [facility] Medicine Work Phone: Comment on above: Test performed at:[facility] [address] [place] [address] Lipid ProfileOrdered By: Johan tem Research Associate Quality Control Qc on 02-11-2015 Cholesterol in HDL mass conc 66 mg/dL Normal [facility] Work Phone: Comment on above: Reference Range HDL <40 mg/dL Low HDL Cholesterol HDL >or= 60 mg/dL High HDL Cholesterol Test performed at:[facility] [address] [place] [address] Cholesterol in LDL mass conc 44 mg/dL Normal 0-130 [facility] Work Phone: Comment on above: Test performed at:[facility] [address] [place] [address] Cholesterol in VLDL mass conc 22 mg/dL Normal 5-40 [facility] Work Phone: Comment on above: Test performed at:[facility] [address] [place] [address] Cholesterol mass conc 132 mg/dL Normal Com prehensive Internal Medicine Work Phone: Comment on above: <200 mg/dL Desirable 200-240 mg/dL Borderline >240 mg/dL High Risk Test performed at:[facility] [address] [place] [address] Triglyceride mass conc 111 mg/dL Normal 0-[address] [facility] Work Phone: Comment on above: Serum Triglycerides Reference Interval Normal <150 mg/dL Borderline high 150 - 199 mg/dL High 200 - 499 mg/dL Very High > or = 500 mg/dL Test performed at:[facility] [address] [place] [address] Lipid Profile 22 mg/dL Normal 5-40 Comprehensi ve Internal Medicine Work Phone: HgA1C , Office ([phone])Ordere d By: Idalia Ellis on 10-19-2014 Hemoglobin A1c/Hemoglobin.total mass fraction (Bld) 5.8 % Normal 4.6 - 7.1 Comprehensiv e Internal Medicine Work Phone: AFPTOrdered By: System Manag er on 10-17-2014 AFPT 2.6 ng/mL Normal 0.0-8.3 [facility] Work Phone: Comment on above: Cristofer ECLIA methodol ogyPerformed at: [facility] [place] [id number] Director: Russ Elias PhD, Phone: [phone] Is Patient ? N CMPOrdered By: System EcoEridania r on 10-17-2014 Albumin mass conc 4.0 g/dL Normal 3.4-5.0 Compreh ensive Internal Medicine Work Phone: Albumin/Globulin mass ratio 1.1 {RATIO} Normal 0.9-2.4 [facility] Work Phone: ALP enzyme act/vol 36 U/L Abnormal 50-136 Compre hensive Internal Medicine Work Phone: ALT enzyme act/vol 39 U/L Normal 12-78 [facility]pre [facility] Work Phone: AST enzyme act/vol 23 U/L Normal 15-37 [facility]pre [facility] Work Phone: Bilirubin mass conc 0.50 mg/dL Normal 0.00-4.00 Compr ehensive Internal Medicine Work Phone: Calcium mass conc 9.0 mg/dL Normal 8.5-10.1 Compreh ensive Internal Medicine Work Phone: Chloride molar conc 107 mmol/L Normal 98-107 Compr ehensive Internal Medicine Work Phone: CO2 molar conc 27.0 mmol/L Normal 21.0-32.0 Comprehen [facility] Internal [facility] Work Phone: Creatinine mass conc [...] Medicine Work Phone: LIPIDOrdered By: System Emerald sunil on 10-17-2014 Cholesterol in HDL mass conc [...] [facility] Internal [facility] Work Phone: PTOrdered By: Half Sole Fitter on 10-17-2014 INR Coag RelTime (PPP) 1.0 [...] time (Bld) 27.6 s Normal 24.1-36.2 Comp [facility] Work Phone: AFPTOrdered By: System Manag er on 08-10-2014 AFPT 2.4 ng/mL Normal 0.0-8.3 [facility] Work Phone: Comment on above: Cristofer ECLIA methodol ogyPerformed at: - LabCo[address] [id number] Director: Russ Elias PhD, Phone: [phone] Is Patient ? N CMPOrdered By: System Manage r on 08-10-2014 Albumin mass conc 3.6 g/dL Normal 3.4-5.0 Compreh ensive Internal Medicine Work Phone: Albumin/Globulin mass ratio 1.1 {RATIO} Normal 0.9-2.4 [facility] Work Phone: ALP enzyme act/vol 33 U/L Abnormal 45-117 Compre [facility] Internal Medicine Work Phone: ALT enzyme act/vol 40 U/L Normal 12-78 Compre [facility] Internal Medicine Work Phone: AST enzyme act/vol 23 U/L Normal 15-37 Compre hensive Internal Medicine Work Phone: Bilirubin mass conc 0.30 mg/dL Normal 0.00-1.00 Compr ehensive Internal Medicine Work Phone: Calcium mass conc 8.6 mg/dL Normal 8.5-10.1 Compreh ensive Internal Medicine Work Phone: Chloride molar conc 107 mmol/L Normal 98-107 Compr ehensive Internal Medicine Work Phone: CO2 molar conc 25.0 mmol/L Normal 21.0-32.0 Comprehen sive Internal Medicine Work Phone: Creatinine mass conc 1.3 mg/dL Abnormal 0.6-1.0 Comp rehensive Internal Medicine [...] Work Phone: LIPIDOrdered By: Marcelino barber on 08-10-2014 Cholesterol in HDL mass conc [...] mass conc 128 mg/dL Normal 0-199 Co mprehensive Internal Medicine Work Phone: Comment on above: Serum Triglycerides Reference IntervalNormal <150 mg/dLBorderline high 150 - 199 mg/dLHigh 200 - 499 mg/dLVery High > or = 500 mg/dL LIPID 26 mg/dL Normal 5-40 [facility] Medicine Work Phone: PTOrdered By: Half Sole Fitter on 08-10-2014 INR Coag RelTime (PPP) 1.0 [...] time (Bld) 29.0 s Normal 24.1-36.2 Comp rehensive Internal Medicine Work Phone: HgA1C , Office ([phone])Ordere d By: Fiorella Palmerk on 07-20-2014 Hemoglobin A1c/Hemoglobin.total mass fraction (Bld) [...] ALP enzyme act/vol 34 U/L Abnormal 45-117 [facility] Internal Medicine Work Phone: Comment on above: will review at 8-20 appt ALT enzyme act/vol 44 U/L Normal 12-78 [facility] Internal Medicine Work Phone: Comment on above: will review at 8-20 appt AST enzyme act/vol 28 U/L Normal 15-37 [facility] Internal Medicine Work Phone: Comment on above: will review at 8-20 appt Bilirubin mass conc 0.50 mg/dL Normal 0.00-1.00 [facility] Work Phone: Comment on above: will review at 8-20 appt Calcium mass conc 9.1 mg/dL Normal 8.5-10.1 [facility] Work Phone: Comment on above: will review at 8-20 appt Chloride molar conc 107 mmol/L Normal 98-107 [facility] Work Phone: Comment on above: will review at 8-20 appt CO2 molar conc 26.0 mmol/L Normal 21.0-32.0 [facility] Internal Medicine Work Phone: Comment on above: will review at 8-20 appt Creatinine mass conc 1.4 mg/dL Abnormal 0.6-1.0 [facility] Internal Medicine Work Phone: Comment on [...] Submit new specimen if indicated. LIPIDOrdered By: Marcelino barber on 07-13-2014 Cholesterol in HDL mass [...] Internal Medicine Work Phone: HgA1C , Office ([phone])Ordere d By: Idalia Ellis on 03-16-2014 Hemoglobin A1c/Hemoglobin.total mass fraction (Bld) 5.6 % Normal 4.6 - 7.1 Comprehensiv e Internal Medicine Work Phone: URINE JESÚS CULTURE-JOHNY COL C OUNT ([id number])Ordered By: Half Sole Fitter on 03-16-2014 Bacteria identified Cx Nom (U) Final report Abnormal Comprehensive [facility] Medicine Work Phone: Comment on above: PATIENT NOT FASTINGP ERFORMED BY: CB [facility] [id number] [facility] [id number] Information: SRC:UR [id number] Bacteria identified Cx Nom (U) Hafnia alvei Abnormal [facility] Medicine Work Phone: Comment on above: Greater than 100,000 colony forming units per mL PATIENT NOT FASTINGP ERFORMED BY: CB [facility] [address] BitrockrCarolinas ContinueCARE [facility] [id number] Information: SRC:UR [id number] Other Antibiotic [facility] prehensive Internal Medicine Work Phone: Comment on above: S = Susceptibl e; I = Intermediate; R = Resistant P = Positive; N = Negative MICS are expressed in micrograms per mL Antibiotic RSLT#1 RSLT#2 RSLT#3 RSLT#4Amoxicillin/Clavulanic Acid RAmpicillin RCefazolin RCefepime SCeftriaxone SCefuroxime ICephalothin RCiprofloxacin SGentamicin SImipenem SNitrofurantoin STetracycline ITobramycin S PATIENT NOT FASTINGP ERFORMED BY: WINDY [facility] Ccaril[address] RoadDuCarolinas ContinueCARE Hospital at [facility] [id number] Information: SRC:UR [id number] Urinalysis, Office ([phone])Or dered By: Monet Holman on 03-16-2014 Bilirubin [...] on above: Cristofer ECLIA methodol ogyPerformed at: [facility] [address] [id number] Director: Zay Gomez MD, Phone: [phone] Is Patient ? N CBCDOrdered By: System Manag er on 03-11-2014 Erythrocyte distribution width Auto Ratio [...] mass (RBC) 28.0 pg Normal 27.0-32.[address] [facility] Work Phone: MCHC Auto mass conc (RBC) 32.8 {g/gl} Normal 32-36 [facility] Work Phone: MCHC mass conc (RBC) 32.8 {g/gl} Normal 32-36 [facility] prehensive Internal Medicine Work Phone: MCV Auto Entitic volume (RBC) 85.4 fL Normal 81-99 [facility] Internal Medicine Work Phone: MCV Entitic volume (RBC) 85.4 fL Normal 81-99 [facility] Internal Medicine Work Phone: Platelet mean volume Auto Entitic volume (Bld) 9.9 fL Normal 6.2-12.0 [facility] Work Phone: Platelet mean volume Entitic volume (Bld) 9.9 fL Normal 6.2-12.0 Comprehensi ve Internal Medicine Work Phone: Platelets #/vol (Bld) 329 10*3/uL Normal 150-450 Co [facility] Internal Medicine Work Phone: Platelets Auto #/vol (Bld) 329 10*3/uL Normal 150-450 [facility] Medicine Work Phone: RBC #/vol (Bld) 4.71 {M/mm3} Normal 4.2-5.4 Compreh ensive Internal Medicine Work Phone: RBC Auto #/vol (Bld) 4.71 {M/mm3} Normal 4.2-5.4 [facility] Internal [facility] Work Phone: WBC #/vol (Bld) [...] Comprehensive Internal Medicine Work Phone: PTOrdered By: Half Sole Fitter on 03-11-2014 INR Coag RelTime (PPP) 1.0 {INR} Normal Co mprehensive Internal Medicine Work Phone: Prothrombin time (PT) Coag time (PPP) 1.0 s Normal [facility] Work Phone: Prothrombin time (PT) Coag time (PPP) 12.7 s Normal 11.9-14.4 [facility] Work Phone: PT 12.7 s Normal 11.9-14.4 [facility] Internal Medicine Work Phone: PTTOrdered By: System Manage r on 03-11-2014 aPTT Coag time (Bld) 28.5 s Normal 24.1-36.2 [facility] Internal Medicine Work Phone: CMPOrdered By: System Manage r on 03-10-2014 Albumin mass conc 3.7 g/dL Normal 3.4-5.0 [facility] Internal Medicine Work Phone: Albumin/Globulin mass ratio 0.9 {RATIO} Normal 0.9-2.4 [facility] Internal Medicine Work Phone: ALP enzyme act/vol 65 U/L Normal 50-136 [facility] Internal Medicine Work Phone: ALT enzyme act/vol 32 U/L Normal 12-78 [facility] Internal Medicine Work Phone: AST enzyme act/vol 16 U/L Normal 15-37 [facility] Internal Medicine Work Phone: Bilirubin mass conc 0.50 mg/dL Normal 0.00-1.00 [facility] Work Phone: Calcium mass conc 8.9 mg/dL Normal 8.5-10.1 [facility] Internal Medicine Work Phone: Chloride molar conc 104 mmol/L Normal 98-107 [facility] Internal [facility] Work Phone: CO2 molar conc 29.0 mmol/L Normal 21.0-32.0 [facility] Work Phone: Creatinine mass conc 1.0 mg/dL Normal 0.6-1.0 [facility] Internal Medicine Work Phone: GFR/1.73 sq M predicted among non-blacks MDRD vol rate/area (S/P/Bld) 59 mL/min/{1.73_m2} Abnormal Comprehe [facility] Internal Medicine Work Phone: Globulin Calculated mass conc (S) 3.9 g/dL Normal 2.7-4.2 [facility] Internal Medicine Work Phone: Globulin mass conc [...] Comprehensive Internal Medicine Work Phone: LIPIDOrdered By: [facility] Emerald barber on 03-10-2014 Cholesterol in HDL mass [...] Phone: URINE JESÚS CULTURE-JOHNY COL C OUNT ([id number])Ordered By: Half Sole Fitter on 12-08-2013 Bacteria identified Cx Nom (U) [...] STrimethoprim/Sulfa S PATIENT NOT FASTINGP ERFORMED BY: Guerrilla RF [id number] LabsDeaconess Health System [id number] Information: SRC: URINE Bacteria identified Cx Nom (U) Final report Normal Comprehensive [facility] Medicine Work Phone: Comment on above: PATIENT NOT FASTINGP ERFORMED BY: Guerrilla RF [id number] [place] [id number] Information: SRC: URINE Urinalysis, Office ([phone])Or dered By: Mariely Delgado on 12-08-2013 Bilirubin [...] Internal Medicine Work Phone: HgA1C , Office ([phone])Ordere d By: Idalia Ellis on 11-09-2013 Hemoglobin A1c/Hemoglobin.total mass fraction (Bld) 5.5 % Normal 4.6 - 7.1 Comprehensiv e Internal Medicine Work Phone: CMPOrdered By: System Manage r on 11-01-2013 Albumin mass conc 3.6 g/dL Normal 3.4-5.0 Compreh ensive Internal Medicine Work Phone: Albumin/Globulin mass ratio 1.0 {RATIO} Normal 0.9-2.4 [facility] Work Phone: ALP enzyme act/vol 69 U/L Normal 50-136 Compre hensive Internal Medicine Work Phone: ALT enzyme act/vol 37 U/L Normal 12-78 Compre hensive Internal Medicine Work Phone: AST enzyme act/vol 27 U/L Normal 15-37 Compre hensive Internal Medicine [...] Phone: LIPIDOrdered By: System Emerald barber on 11-01-2013 Cholesterol in HDL mass [...] mass conc 186 mg/dL Normal 0-[address] [facility] Work Phone: Comment on above: Serum Triglycerides Reference IntervalNormal <150 mg/dLBorderline high 150 - 199 mg/dLHigh 200 - 499 mg/dLVery High > or = 500 mg/dL LIPID 37 mg/dL Normal 5-40 [facility] Work Phone: URINE JESÚS CULTURE-IDENTIFICA [place] ([id number])Ordered By: Half Sole Fitter on 08-17-2013 Bacteria identified Cx Nom (U) Klebsiella pneumoniae Normal Comprehens saira Internal Medicine Work Phone: Comment on above: Greater than 100,000 colony forming units per mL PATIENT NOT FASTINGP ERFORMED BY: [facility] [id number] [facility] [id number] Information: ADD [id number] Bacteria identified Cx Nom (U) Final report Normal [facility] Medicine Work Phone: Comment on above: PATIENT NOT FASTINGP ERFORMED BY: [facility] [id number] [facility] [id number] Information: ADD [id number] Other Antibiotic susc MIHEAD Normal Com prehensive Internal Medicine Work Phone: [...] PATIENT NOT FASTINGP ERFORMED BY: CB [facility] [id number] RoadDublin [place] [id number] Information: ADD [id number] Urinalysis, Office ([phone])Or dered By: Fiorella Whelan on 08-17-2013 Bilirubin [...] Internal Medicine Work Phone: HgA1C , Office ([phone])Ordere d By: Idalia Ellis on 08-06-2013 Hemoglobin A1c/Hemoglobin.total mass fraction (Bld) 5.7 % Normal 4.6 - 7.1 Comprehensiv e Internal Medicine Work Phone: AFPTOrdered By: Marcelino garza on 07-06-2013 AFPT 3.8 ng/mL Normal 0.0-8.3 [facility] Work Phone: Comment on above: Cristofer ECLIA methodol ogyPerformed at: [facility] [place] [id number] Director: Russ Elias PhD, Phone: [phone] CBCMDOrdered By: Marcleino barber on 07-06-2013 Erythrocyte distribution width Auto [...] mass (RBC) 28.1 pg Normal 27.0-32.0 Co [facility] Internal [facility] Work Phone: MCHC Auto mass conc (RBC) 33.4 g/dL Normal 32-36 [facility] Work Phone: MCHC mass conc (RBC) 33.4 g/dL Normal 32-36 Comp rehensive Internal Medicine Work Phone: MCV Auto Entitic volume (RBC) 84.2 fL Normal 81-99 [facility] Work Phone: MCV Entitic volume (RBC) 84.2 fL Normal 81-99 [facility] Internal Medicine Work Phone: Platelet mean volume Auto Entitic volume (Bld) 9.4 fL Normal 6.2-12.0 [facility] Internal Medicine Work Phone: Platelet mean volume Entitic volume (Bld) 9.4 fL Normal 6.2-12.0 Comprehensi Internal Medicine Work Phone: Platelets #/vol (Bld) 366 10*3/uL Normal 150-450 Co [facility] Internal Medicine Work Phone: Platelets Auto #/vol (Bld) 366 10*3/uL Normal 150-450 [facility] Internal Medicine Work Phone: RBC #/vol (Bld) 5.26 {M/mm3} Normal 4.2-5.4 Compreh ensive Internal Medicine Work Phone: RBC Auto #/vol (Bld) 5.26 {M/mm3} Normal 4.2-5.4 [facility] Internal Medicine Work Phone: WBC #/vol (Bld) [...] Work Phone: CHEST PA AND LATERALOrdered By: Half Sole Fitter on 07-06-2013 CHEST PA AND LATERAL See Note Normal Comp rehensive Internal Medicine Work Phone: Comment on above: PROCEDURE: X-RAY ZOEY REASON FOR EXAM: Female, 67 years old. [...] Hill M.D.July 06, 2013 at 8:54:05 AM [id number] Signed GP/GP If you are the referring physician and would like to consult with theradiologist who provided this interpretation, please contact Rodrigo Givens at [phone]. If this radiologist is unavailable, youwill be directed to another radiologist to assist. If you are a patient with a question regarding this report, pleasecontactyour referring physician directly. Professional Interpretation Provided By: Capitaine Train, Phone , These documents contain legally protected [...] destructionofthese documents. Dictated on 07/06/13 0854 by Liz GARZA,Faridehranscribed on 07/06/13 1204 by ITS IMPORTSign by Stew Hill MD on 07/06/13 1205 Sign by: Stew Hill MD CMPOrdered By: System Manage r on 07-06-2013 [...] Phone: LIPIDOrdered By: System Emerald barber on 07-06-2013 Cholesterol in HDL mass [...] [facility] Medicine Work Phone: PTOrdered By: Half Sole Fitter on 07-06-2013 INR Coag RelTime (PPP) 1.0 {INR} Normal Co mprehensive Internal Medicine Work Phone: Prothrombin time (PT) Coag time (PPP) 1.0 s Normal Comprehensive Internal Medicine Work Phone: Prothrombin time (PT) Coag time (PPP) 12.9 s Normal 11.9-14.4 [facility] Work Phone: PT 12.9 s Normal 11.9-14.4 [facility] Work Phone: PTTOrdered By: System Manage r on 07-06-2013 aPTT Coag time (Bld) 32.9 s Normal 24.1-36.2 Comp [facility] Internal [facility] Work Phone: LQDPAP [id number] By: Timbo ystem Research Associate Quality Control Qc on 01-27-2012 LQDPAP [id number] Comment Normal Comprehen [facility] Internal Medicine Work Phone: Comment [...] no HPV testing was performed. .Performed at: [address] [id number] Director: Tracey Weeks MD, Phone: [phone] NEGATIVE FOR INTRAEP ITHELIAL LESION AND MALIGNANCY.THIS SPECIMEN WAS RESCREENED PART OF OUR HYDRO PNEUMATIC TESTER PROGRAM.Satisfactory for evaluation. No endocervical component is identified.Maya Cordova, Relief Operator (ASCP)Christine Greenfield, Supervisory Relief Operator (ASCP)This liquid based ThinPrep(R) pap test was screened withthe use of an image guided system. NO INFORMATION GIVEN ON REQ LQDPAP [id number] . Normal Comprehen sive Internal Medicine Work Phone: Comment on above: NO INFORMATION GIVEN ON REQ Urinalysis, Office ([id number])Or dered By: Yajaira Mandel on 01-27-2012 Bilirubin [...] identified Cx Nom (U) Klebsiella pneumoniae sp [facility] Work Phone: Vital Signs Date Time Vital Sign Value Performing Clinician Facility 09-29-2025 08:15-0400 Body temperature 98.6 [degF] DR VERONICA CARLISLE MD [facility] 09-29-2025 08:15-0400 Diastolic Blood Pressure Non-Invasive 59 mm[Hg] DR VERONICA CARLISLE MD [facility] 09-29-2025 08:15-0400 Heart rate 82 /min DR VERONICA CARLISLE MD [facility] 09-29-2025 08:15-0400 Reason For Taking VItal Signs DR VERONICA CARLISLE MD [facility] 09-29-2025 08:15-0400 Respiratory rate 14 /min DR VERONICA CARLISLE MD [facility] 09-29-2025 08:15-0400 Systolic Blood Pressure Non-Invasive 148 mm[Hg] DR VERONICA CARLISLE MD [facility] 09-29-2025 03:00-0400 Body temperature 98.06 [degF] DR VERONICA CARLISLE MD [facility] 09-29-2025 03:00-0400 Diastolic Blood Pressure Non-Invasive 70 mm[Hg] DR VERONICA CARLISLE MD [facility] 09-29-2025 03:00-0400 Heart rate 77 /min DR VERONICA CARLISLE MD [facility] 09-29-2025 03:00-0400 Respiratory rate 18 /min DR VERONICA CARLISLE MD [facility] 09-29-2025 03:00-0400 Systolic Blood Pressure Non-Invasive 170 mm[Hg] DR VERONICA CARLISLE MD [facility] 09-28-2025 19:10-0400 Body temperature 97.88 [degF] DR VERONICA CARLISLE MD [facility] 09-28-2025 19:10-0400 Diastolic Blood Pressure Non-Invasive 69 mm[Hg] DR VERONICA CARLISLE MD [facility] 09-28-2025 19:10-0400 Heart rate 85 /min DR VERONICA CARLISLE MD [facility] 09-28-2025 19:10-0400 Reason For Taking VItal Signs DR VERONICA CARLISLE MD [facility] 09-28-2025 19:10-0400 Respiratory rate 18 /min DR VERONICA CARLISLE MD [facility] 09-28-2025 19:10-0400 Systolic Blood Pressure Non-Invasive 143 mm[Hg] DR VERONICA CARLISLE MD [facility] 09-28-2025 15:37-0400 Heart rate 76 /min DR VERONICA CARLISLE MD [facility] 09-28-2025 07:20-0400 Heart rate 62 /min DR VERONICA CARLISLE MD [facility] 09-28-2025 04:35-0400 Heart rate 71 /min DR VERONICA CARLISLE MD [facility] 09-28-2025 00:12-0400 Heart rate 77 /min DR VERONICA CARLISLE MD [facility] 09-27-2025 12:41-0400 Body height [address] VERONICA CARLISLE MD [facility] 09-27-2025 12:41-0400 Body weight 32.17 kg/m2 DR VERONICA CARLISLE MD [facility] 09-27-2025 12:41-0400 Body weight 77.[address] VERONICA CARLISLE MD [facility] 09-27-2025 12:15-0400 Body temperature 96.8 [degF] DR VERONICA CARLISLE MD [facility] 09-27-2025 11:32-0400 Body temperature 97.16 [degF] DR VERONICA CARLISLE MD [facility] 09-27-2025 11:20-0400 Respiratory Rate - Anes 10 br/min DR VERONICA CARLISLE MD [facility] 09-27-2025 11:15-0400 Body temperature 96.8 [degF] DR VERONICA CARLISLE MD [facility] 09-27-2025 11:15-0400 Respiratory Rate - Anes 10 br/min DR VERONICA CARLISLE MD [facility] 09-27-2025 11:10-0400 Respiratory Rate - Anes 11 br/min DR VERONICA CARLISLE MD [facility] 09-27-2025 10:45-0400 Body temperature 96.8 [degF] DR VERONICA CARLISLE MD [facility] 09-27-2025 07:43-0400 Body height [address] VERONICA CARLISLE MD [facility] 09-27-2025 07:43-0400 Body temperature 97.88 [degF] DR VERONICA CARLISLE MD [facility] 09-27-2025 07:43-0400 Body weight 77.[address] VERONICA CARLISLE MD [facility] 07-26-2025 10:30-0400 Body height 154.94 cm Rayshawn Chaudhary NP-C Work Phone: [facility] 07-26-2025 10:30-0400 Body mass index (BMI) [Ratio] 33 kg/m2 Rayshawn Chaudhary NP-C Work Phone: [facility] 07-26-2025 10:30-0400 Body weight 79.37 kg Rayshawn Chaudhary NP-C Work Phone: [facility] 07-26-2025 10:30-0400 Diastolic blood pressure 74 mm[Hg] Rayshawn Maurice TRANSIT VEHICLE INSPECTOR-C Work Phone: [facility] 07-26-2025 10:30-0400 Heart rate 70 /min Rayshawn Guzmanam TRANSIT VEHICLE INSPECTOR-C Work Phone: [facility] 07-26-2025 10:30-0400 Systolic blood pressure 150 mm[Hg] Rayshawn Maurice TRANSIT VEHICLE INSPECTOR-C Work Phone: [facility] 07-21-2025 13:10-0400 Diastolic blood pressure 70 mm[Hg] Rayshawn Maurice TRANSIT VEHICLE INSPECTOR-C Work Phone: [facility] 07-21-2025 13:10-0400 Heart rate 70 /min Rayshawn Maurice TRANSIT VEHICLE INSPECTOR-C Work Phone: [facility] 07-21-2025 13:10-0400 Systolic blood pressure 149 mm[Hg] Rayshawn Maurice TRANSIT VEHICLE INSPECTOR-C Work Phone: [facility] 07-21-2025 11:15-0400 Body height 154.94 cm Rayshawn Maurice TRANSIT VEHICLE INSPECTOR-C Work Phone: [facility] 07-21-2025 11:15-0400 Body mass index (BMI) [Ratio] 33 kg/m2 Rayshawn Maurice TRANSIT VEHICLE INSPECTOR-C Work Phone: [facility] 07-21-2025 11:15-0400 Body temperature 98.4 [degF] Rayshawn Maurice TRANSIT VEHICLE INSPECTOR-C Work Phone: [facility] 07-21-2025 11:15-0400 Body weight 79.37 kg Rayshawn Maurice TRANSIT VEHICLE INSPECTOR-C Work Phone: [facility] 07-21-2025 11:15-0400 Diastolic blood pressure 78 mm[Hg] Rayshawn Maurice TRANSIT VEHICLE INSPECTOR-C Work Phone: [facility] 07-21-2025 11:15-0400 Heart rate 73 /min Rayshawn Guzmanam TRANSIT VEHICLE INSPECTOR-C Work Phone: [facility] 07-21-2025 11:15-0400 Respiratory rate 18 /min Rayshawn Maurice TRANSIT VEHICLE INSPECTOR-C Work Phone: [facility] 07-21-2025 11:15-0400 SaO2% (BldA) [Mass fraction] 96 % Rayshawn Chaudhary TRANSIT VEHICLE INSPECTOR-C Work Phone: [facility] 07-21-2025 11:15-0400 Systolic blood pressure 136 mm[Hg] Rayshawn Chaudhary TRANSIT VEHICLE INSPECTOR-C Work Phone: [facility] 07-21-2025 10:44-0400 Body mass index (BMI) [Ratio] 32.5 kg/m2 Rayshawn Guzmanam TRANSIT VEHICLE INSPECTOR-C Work Phone: [facility] 07-05-2025 10:17-0400 Body height 154.94 cm Rayshawn Chaudhary TRANSIT VEHICLE INSPECTOR-C Work Phone: [facility] 07-05-2025 10:11-0400 Body mass index (BMI) [Ratio] 32.9 kg/m2 Rayshawn Chaudhary TRANSIT VEHICLE INSPECTOR-C Work Phone: [facility] 07-05-2025 10:11-0400 Body weight 79.03 kg Rayshawn Guzmanam TRANSIT VEHICLE INSPECTOR-C Work Phone: [facility] 07-05-2025 10:11-0400 Diastolic blood pressure 82 mm[Hg] Rayshawn Chaudhary TRANSIT VEHICLE INSPECTOR-C Work Phone: [facility] 07-05-2025 10:11-0400 Systolic blood pressure 140 mm[Hg] Rayshawn Chaudhary TRANSIT VEHICLE INSPECTOR-C Work Phone: [facility] 05-26-2025 10:04-0400 Body height 154.94 cm Rayshawn Guzmanam TRANSIT VEHICLE INSPECTOR-C Work Phone: [facility] 05-26-2025 10:04-0400 Body mass index (BMI) [Ratio] 32.8 kg/m2 Rayshawn Guzmanam TRANSIT VEHICLE INSPECTOR-C Work Phone: [facility] 05-26-2025 10:04-0400 Body temperature 97.7 [degF] Rayshawn Chaudhary TRANSIT VEHICLE INSPECTOR-C Work Phone: [facility] 05-26-2025 10:04-0400 Body weight 78.69 kg Rayshawn Maurice TRANSIT VEHICLE INSPECTOR-C Work Phone: [facility] 05-26-2025 10:04-0400 Diastolic blood pressure 74 mm[Hg] Rayshawn Maurice TRANSIT VEHICLE INSPECTOR-C Work Phone: [facility] 05-26-2025 10:04-0400 Heart rate 66 /min Rayshawn Maurice TRANSIT VEHICLE INSPECTOR-C Work Phone: [facility] 05-26-2025 10:04-0400 Respiratory rate 18 /min Rayshawn Maurice TRANSIT VEHICLE INSPECTOR-C Work Phone: [facility] 05-26-2025 10:04-0400 SaO2% (BldA) [Mass fraction] 97 % Rayshawn Maurice TRANSIT VEHICLE INSPECTOR-C Work Phone: [facility] 05-26-2025 10:04-0400 Systolic blood pressure 141 mm[Hg] Aryshawn Maurice TRANSIT VEHICLE INSPECTOR-C Work Phone: [facility] 04-23-2025 06:16-0400 Body temperature 98 [degF] Rayshawn Maurice TRANSIT VEHICLE INSPECTOR-C Work Phone: [facility] 04-23-2025 06:16-0400 Diastolic blood pressure 80 mm[Hg] Rayshawn Maurice TRANSIT VEHICLE INSPECTOR-C Work Phone: [facility] 04-23-2025 06:16-0400 Heart rate 71 /min Rayshawn Maurice TRANSIT VEHICLE INSPECTOR-C Work Phone: [facility] 04-23-2025 06:16-0400 Respiratory rate 12 /min Rayshawn Maurice TRANSIT VEHICLE INSPECTOR-C Work Phone: [facility] 04-23-2025 06:16-0400 SaO2% (BldA) [Mass fraction] 95 % Rayshawn Maurice TRANSIT VEHICLE INSPECTOR-C Work Phone: [facility] 04-23-2025 06:16-0400 Systolic blood pressure 175 mm[Hg] Rayshawn Maurice TRANSIT VEHICLE INSPECTOR-C Work Phone: [facility] 04-23-2025 04:21-0400 Body height 154.94 cm Rayshawn Maurice TRANSIT VEHICLE INSPECTOR-C Work Phone: [facility] 04-23-2025 04:21-0400 Body mass index (BMI) [Ratio] 34.2 kg/m2 Rayshawn Maurice TRANSIT VEHICLE INSPECTOR-C Work Phone: [facility] 04-23-2025 04:21-0400 Body weight 82.3 kg Rayshawn Maurice TRANSIT VEHICLE INSPECTOR-C Work Phone: [facility] 04-21-2025 10:06-0400 Body mass index (BMI) [Ratio] 33.3 kg/m2 Rayshawn Maurice TRANSIT VEHICLE INSPECTOR-C Work Phone: [facility] 04-21-2025 10:06-0400 Body temperature 98.3 [degF] Rayshawn Maurice TRANSIT VEHICLE INSPECTOR-C Work Phone: [facility] 04-21-2025 10:06-0400 Body weight 79.91 kg Rayshawn Maurice TRANSIT VEHICLE INSPECTOR-C Work Phone: [facility] 04-21-2025 10:06-0400 Diastolic blood pressure 73 mm[Hg] Rayshawn Maurice TRANSIT VEHICLE INSPECTOR-C Work Phone: [facility] 04-21-2025 10:06-0400 Heart rate 69 /min Rayshawn Maurice TRANSIT VEHICLE INSPECTOR-C Work Phone: [facility] 04-21-2025 10:06-0400 Respiratory rate 16 /min Rayshawn Maurice TRANSIT VEHICLE INSPECTOR-C Work Phone: [facility] 04-21-2025 10:06-0400 SaO2% (BldA) [Mass fraction] 99 % Rayshawn Maurice TRANSIT VEHICLE INSPECTOR-C Work Phone: [facility] 04-21-2025 10:06-0400 Systolic blood pressure 137 mm[Hg] Rayshawn Maurice TRANSIT VEHICLE INSPECTOR-C Work Phone: [facility] 04-20-2025 10:06-0400 Body height 154.94 cm Rayshawn Maurice TRANSIT VEHICLE INSPECTOR-C Work Phone: [facility] 04-20-2025 10:06-0400 Body mass index (BMI) [Ratio] 33.3 kg/m2 Rayshawn Maurice TRANSIT VEHICLE INSPECTOR-C Work Phone: [facility] 04-20-2025 10:06-0400 Body temperature 97.3 [degF] Rayshawn Maurice TRANSIT VEHICLE INSPECTOR-C Work Phone: [facility] 04-20-2025 10:06-0400 Body weight 79.91 kg Rayshawn Maurice TRANSIT VEHICLE INSPECTOR-C Work Phone: [facility] 04-20-2025 10:06-0400 Diastolic blood pressure 82 mm[Hg] Rayshawn Maurice TRANSIT VEHICLE INSPECTOR-C Work Phone: [facility] 04-20-2025 10:06-0400 Heart rate 69 /min Rayshawn Maurice TRANSIT VEHICLE INSPECTOR-C Work Phone: [facility] 04-20-2025 10:06-0400 Respiratory rate 18 /min Rayshawn Maurice TRANSIT VEHICLE INSPECTOR-C Work Phone: [facility] 04-20-2025 10:06-0400 SaO2% (BldA) [Mass fraction] 99 % Rayshawn Maurice TRANSIT VEHICLE INSPECTOR-C Work Phone: [facility] 04-20-2025 10:06-0400 Systolic blood pressure 134 mm[Hg] Rayshawn Maurice TRANSIT VEHICLE INSPECTOR-C Work Phone: [facility] 04-11-2025 06:03-0400 Heart rate 78 /min Rayshawn Maurice TRANSIT VEHICLE INSPECTOR-C Work Phone: [facility] 04-11-2025 06:03-0400 Respiratory rate 16 /min Rayshawn Maurice TRANSIT VEHICLE INSPECTOR-C Work Phone: [facility] 04-11-2025 06:03-0400 SaO2% (BldA) [Mass fraction] 97 % Rayshawn Maurice TRANSIT VEHICLE INSPECTOR-C Work Phone: [facility] 04-11-2025 04:42-0400 Body temperature 98.1 [degF] Rayshawn Maurice TRANSIT VEHICLE INSPECTOR-C Work Phone: [facility] 04-11-2025 04:42-0400 Diastolic blood pressure 64 mm[Hg] Rayshawn Maurice TRANSIT VEHICLE INSPECTOR-C Work Phone: [facility] 04-11-2025 04:42-0400 Systolic blood pressure 160 mm[Hg] Rayshawn Maurice TRANSIT VEHICLE INSPECTOR-C Work Phone: [facility] 04-11-2025 04:04-0400 Body height 154.94 cm Rayshawn Guzmanam TRANSIT VEHICLE INSPECTOR-C Work Phone: [facility] 04-11-2025 04:04-0400 Body mass index (BMI) [Ratio] 34.2 kg/m2 Rayshawn Maurice TRANSIT VEHICLE INSPECTOR-C Work Phone: [facility] 04-11-2025 04:04-0400 Body weight 82.2 kg Rayshawn Guzmanam TRANSIT VEHICLE INSPECTOR-C Work Phone: [facility] 04-07-2025 13:00-0400 Body temperature 98.7 [degF] Rayshawn Maurice TRANSIT VEHICLE INSPECTOR-C Work Phone: [facility] 04-07-2025 13:00-0400 Diastolic blood pressure 88 mm[Hg] Rayshawn Guzmanam TRANSIT VEHICLE INSPECTOR-C Work Phone: [facility] 04-07-2025 13:00-0400 Heart rate 78 /min Rayshawn Guzmanam TRANSIT VEHICLE INSPECTOR-C Work Phone: [facility] 04-07-2025 13:00-0400 Respiratory rate 16 /min Rayshawn Guzmanam TRANSIT VEHICLE INSPECTOR-C Work Phone: [facility] 04-07-2025 13:00-0400 SaO2% (BldA) [Mass fraction] 99 % Rayshawn Guzmanam TRANSIT VEHICLE INSPECTOR-C Work Phone: [facility] 04-07-2025 13:00-0400 Systolic blood pressure 171 mm[Hg] Rayshawn Guzmanam TRANSIT VEHICLE INSPECTOR-C Work Phone: [facility] 04-07-2025 09:46-0400 Body height 154.94 cm Rayshawn Maurice TRANSIT VEHICLE INSPECTOR-C Work Phone: [facility] 04-07-2025 09:46-0400 Body mass index (BMI) [Ratio] 33.8 kg/m2 Rayshawn Chaudhary TRANSIT VEHICLE INSPECTOR-C Work Phone: [facility] 04-07-2025 09:46-0400 Body weight 81.2 kg Rayshawn Chaudhary TRANSIT VEHICLE INSPECTOR-C Work Phone: [facility] 04-04-2025 17:00-0400 Body temperature 98.7 [degF] Rayshawn Guzmanam TRANSIT VEHICLE INSPECTOR-C Work Phone: [facility] 04-04-2025 17:00-0400 Diastolic blood pressure 78 mm[Hg] Rayshawn Chaudhary TRANSIT VEHICLE INSPECTOR-C Work Phone: [facility] 04-04-2025 17:00-0400 Heart rate 78 /min Rayshawn Chaudhary TRANSIT VEHICLE INSPECTOR-C Work Phone: [facility] 04-04-2025 17:00-0400 Respiratory rate 14 /min Rayshawn Guzmanam TRANSIT VEHICLE INSPECTOR-C Work Phone: [facility] 04-04-2025 17:00-0400 SaO2% (BldA) [Mass fraction] 99 % Rayshawn Chaudhary TRANSIT VEHICLE INSPECTOR-C Work Phone: [facility] 04-04-2025 17:00-0400 Systolic blood pressure 146 mm[Hg] Rayshawn Chaudhary TRANSIT VEHICLE INSPECTOR-C Work Phone: [facility] 04-04-2025 12:29-0400 Body mass index (BMI) [Ratio] 33.6 kg/m2 Rayshawn Guzmanam TRANSIT VEHICLE INSPECTOR-C Work Phone: [facility] 04-04-2025 12:29-0400 Body weight 80.8 kg Rayshawn Chaudhary TRANSIT VEHICLE INSPECTOR-C Work Phone: [facility] 04-04-2025 10:06-0400 Body mass index (BMI) [Ratio] 33.5 kg/m2 Rayshawn Guzmanam TRANSIT VEHICLE INSPECTOR-C Work Phone: [facility] 04-04-2025 10:06-0400 Body weight 80.51 kg Rayshawn Maurice TRANSIT VEHICLE INSPECTOR-C Work Phone: [facility] 04-04-2025 10:06-0400 Diastolic blood pressure 92 mm[Hg] Rayshawn Maurice TRANSIT VEHICLE INSPECTOR-C Work Phone: [facility] 04-04-2025 10:06-0400 Systolic blood pressure 144 mm[Hg] Rayshawn Maurice TRANSIT VEHICLE INSPECTOR-C Work Phone: [facility] 03-25-2025 10:37-0400 Body mass index (BMI) [Ratio] 33.6 kg/m2 Rayshawn Maurice TRANSIT VEHICLE INSPECTOR-C Work Phone: [facility] 03-25-2025 10:37-0400 Body temperature 96.7 [degF] Rayshawn Maurice TRANSIT VEHICLE INSPECTOR-C Work Phone: [facility] 03-25-2025 10:37-0400 Body weight 80.79 kg Rayshawn Maurice TRANSIT VEHICLE INSPECTOR-C Work Phone: [facility] 03-25-2025 10:37-0400 Diastolic blood pressure 87 mm[Hg] Rayshawn Maurice TRANSIT VEHICLE INSPECTOR-C Work Phone: [facility] 03-25-2025 10:37-0400 Heart rate 69 /min Rayshawn Maurice TRANSIT VEHICLE INSPECTOR-C Work Phone: [facility] 03-25-2025 10:37-0400 Respiratory rate 16 /min Rayshawn Maurice TRANSIT VEHICLE INSPECTOR-C Work Phone: [facility] 03-25-2025 10:37-0400 SaO2% (BldA) [Mass fraction] 96 % Rayshawn Maurice TRANSIT VEHICLE INSPECTOR-C Work Phone: [facility] 03-25-2025 10:37-0400 Systolic blood pressure 166 mm[Hg] Rayshawn Maurice TRANSIT VEHICLE INSPECTOR-C Work Phone: [facility] 03-16-2025 09:33-0400 Body mass index (BMI) [Ratio] 33.5 kg/m2 Rayshawn Maurice TRANSIT VEHICLE INSPECTOR-C Work Phone: [facility] 03-16-2025 09:33-0400 Body temperature 98.4 [degF] Rayshawn Maurice TRANSIT VEHICLE INSPECTOR-C Work Phone: [facility] 03-16-2025 09:33-0400 Body weight 80.39 kg Rayshawn Maurice TRANSIT VEHICLE INSPECTOR-C Work Phone: [facility] 03-16-2025 09:33-0400 Diastolic blood pressure 84 mm[Hg] Rayshawn Maurice TRANSIT VEHICLE INSPECTOR-C Work Phone: [facility] 03-16-2025 09:33-0400 Heart rate 74 /min Rayshawn Maurice TRANSIT VEHICLE INSPECTOR-C Work Phone: [facility] 03-16-2025 09:33-0400 Respiratory rate 16 /min Rayshawn Maurice TRANSIT VEHICLE INSPECTOR-C Work Phone: [facility] 03-16-2025 09:33-0400 SaO2% (BldA) [Mass fraction] 97 % Rayshawn Maurice TRANSIT VEHICLE INSPECTOR-C Work Phone: [facility] 03-16-2025 09:33-0400 Systolic blood pressure 142 mm[Hg] Rayshawn Maurice TRANSIT VEHICLE INSPECTOR-C Work Phone: [facility] 02-22-2025 14:45-0400 Body temperature 97.2 [degF] Rayshawn Maurice TRANSIT VEHICLE INSPECTOR-C Work Phone: [facility] 02-22-2025 14:45-0400 Diastolic blood pressure 79 mm[Hg] Rayshawn Maurice TRANSIT VEHICLE INSPECTOR-C Work Phone: [facility] 02-22-2025 14:45-0400 Heart rate 80 /min Rayshawn Maurice TRANSIT VEHICLE INSPECTOR-C Work Phone: [facility] 02-22-2025 14:45-0400 Respiratory rate 16 /min Rayshawn Maurice TRANSIT VEHICLE INSPECTOR-C Work Phone: [facility] 02-22-2025 14:45-0400 SaO2% (BldA) [Mass fraction] 96 % Rayshawn Maurice TRANSIT VEHICLE INSPECTOR-C Work Phone: [facility] 02-22-2025 14:45-0400 Systolic blood pressure 152 mm[Hg] Rayshawn Guzmanam TRANSIT VEHICLE INSPECTOR-C Work Phone: [facility] 02-22-2025 10:45-0400 Inhaled oxygen flow rate 2 L/min Rayshawn Guzmanam TRANSIT VEHICLE INSPECTOR-C Work Phone: [facility] 02-22-2025 06:27-0400 Body height 154.94 cm Rayshawn Guzmanam TRANSIT VEHICLE INSPECTOR-C Work Phone: [facility] 02-22-2025 06:27-0400 Body mass index (BMI) [Ratio] 33.3 kg/m2 Rayshawn Guzmanam TRANSIT VEHICLE INSPECTOR-C Work Phone: [facility] 02-22-2025 06:27-0400 Body weight 80 kg Rayshawn Guzmanam TRANSIT VEHICLE INSPECTOR-C Work Phone: [facility] 02-11-2025 12:56-0400 Diastolic blood pressure 96 mm[Hg] Rayshawn Guzmanam TRANSIT VEHICLE INSPECTOR-C Work Phone: [facility] 02-11-2025 12:56-0400 Heart rate 76 /min Rayshawn Guzmanam TRANSIT VEHICLE INSPECTOR-C Work Phone: [facility] 02-11-2025 12:56-0400 Respiratory rate 17 /min Rayshawn Guzmanam TRANSIT VEHICLE INSPECTOR-C Work Phone: [facility] 02-11-2025 12:56-0400 SaO2% (BldA) [Mass fraction] 97 % Rayshawn Guzmanam TRANSIT VEHICLE INSPECTOR-C Work Phone: [facility] 02-11-2025 12:56-0400 Systolic blood pressure 160 mm[Hg] Rayshawn Guzmanam TRANSIT VEHICLE INSPECTOR-C Work Phone: [facility] 01-28-2025 10:36-0500 Body temperature 96.8 [degF] Rayshawn Guzmanam TRANSIT VEHICLE INSPECTOR-C Work Phone: [facility] 01-28-2025 10:36-0500 Diastolic blood pressure 101 mm[Hg] Rayshawn Guzmanam TRANSIT VEHICLE INSPECTOR-C Work Phone: [facility] 01-28-2025 10:36-0500 Heart rate 82 /min Rayshawn Guzmanam TRANSIT VEHICLE INSPECTOR-C Work Phone: [facility] 01-28-2025 10:36-0500 Respiratory rate 16 /min Rayshawn Guzmanam TRANSIT VEHICLE INSPECTOR-C Work Phone: [facility] 01-28-2025 10:36-0500 SaO2% (BldA) [Mass fraction] 99 % Rayshawn Guzmanam TRANSIT VEHICLE INSPECTOR-C Work Phone: [facility] 01-28-2025 10:36-0500 Systolic blood pressure 164 mm[Hg] Rayshawn Guzmanam TRANSIT VEHICLE INSPECTOR-C Work Phone: [facility] 01-28-2025 09:57-0500 Inhaled oxygen flow rate 6 L/min Rayshawn Guzmanam TRANSIT VEHICLE INSPECTOR-C Work Phone: [facility] 01-28-2025 07:00-0500 Body mass index (BMI) [Ratio] 33.8 kg/m2 Rayshawn Maurice TRANSIT VEHICLE INSPECTOR-C Work Phone: [facility] 01-28-2025 07:00-0500 Body weight 81.2 kg Rayshawn Maurice TRANSIT VEHICLE INSPECTOR-C Work Phone: [facility] 01-18-2025 08:43-0500 Body mass index (BMI) [Ratio] 34 kg/m2 Rayshawn Maurice TRANSIT VEHICLE INSPECTOR-C Work Phone: [facility] 01-18-2025 08:43-0500 Body weight 81.64 kg Rayshawn Maurice TRANSIT VEHICLE INSPECTOR-C Work Phone: [facility] 01-18-2025 08:43-0500 Diastolic blood pressure 87 mm[Hg] Rayshawn Guzmanam TRANSIT VEHICLE INSPECTOR-C Work Phone: [facility] 01-18-2025 08:43-0500 Heart rate 73 /min Rayshawn Guzmanam TRANSIT VEHICLE INSPECTOR-C Work Phone: [facility] 01-18-2025 08:43-0500 Respiratory rate 17 /min Rayshawn Guzmanam TRANSIT VEHICLE INSPECTOR-C Work Phone: [facility] 01-18-2025 08:43-0500 SaO2% (BldA) [Mass fraction] 98 % Rayshawn Chaudhary TRANSIT VEHICLE INSPECTOR-C Work Phone: [facility] 01-18-2025 08:43-0500 Systolic blood pressure 172 mm[Hg] Rayshawn Guzmanam TRANSIT VEHICLE INSPECTOR-C Work Phone: [facility] 01-03-2025 10:17-0500 Body mass index (BMI) [Ratio] 34.2 kg/m2 Rayshawn Guzmanam TRANSIT VEHICLE INSPECTOR-C Work Phone: [facility] 01-03-2025 10:17-0500 Body weight 82.1 kg Rayshawn Guzmanam TRANSIT VEHICLE INSPECTOR-C Work Phone: [facility] 01-03-2025 10:17-0500 Diastolic blood pressure 84 mm[Hg] Rayshawn Guzmanam TRANSIT VEHICLE INSPECTOR-C Work Phone: [facility] 01-03-2025 10:17-0500 Systolic blood pressure 128 mm[Hg] Rayshawn Guzmanam TRANSIT VEHICLE INSPECTOR-C Work Phone: [facility] 01-29-2024 09:04-0500 Body height 154.94 cm TRANSIT VEHICLE INSPECTOR-C Rayshawn Maurice Work Phone: [facility] 01-27-2024 10:20-0500 Body mass index (BMI) [Ratio] 33.8 kg/m2 TRANSIT VEHICLE INSPECTOR-C Rayshawn Maurice Work Phone: [facility] 01-27-2024 10:20-0500 Body weight 81.24 kg TRANSIT VEHICLE INSPECTOR-C Rayshawn Maurice Work Phone: [facility] 01-27-2024 10:20-0500 Diastolic blood pressure 82 mm[Hg] TRANSIT VEHICLE INSPECTOR-C Rayshawn Maurice Work Phone: [facility] 01-27-2024 10:20-0500 Systolic blood pressure 130 mm[Hg] TRANSIT VEHICLE INSPECTOR-C Rayshawn Maurice Work Phone: [facility] 10-20-2023 08:56-0500 Body mass index (BMI) [Ratio] 34 kg/m2 TRANSIT VEHICLE INSPECTOR-C Rayshawn Chaudhary Work Phone: [facility] 10-20-2023 08:56-0500 Body weight 81.64 kg TRANSIT VEHICLE INSPECTOR-C Rayshawn Chaudhary Work Phone: [facility] 10-20-2023 08:56-0500 Diastolic blood pressure 82 mm[Hg] TRANSIT VEHICLE INSPECTOR-C Rayshawn Chaudhary Work Phone: [facility] 10-20-2023 08:56-0500 Systolic blood pressure 126 mm[Hg] TRANSIT VEHICLE INSPECTOR-C Rayshawn Chaudhary Work Phone: [facility] 10-03-2023 09:38-0400 Body height 156.21 cm Fiorella Saúlbrice [facility]; [facility] Work Phone: 10-03-2023 09:38-0400 Body mass index (BMI) [Ratio] 32.17 kg/m2 [facility] Work Phone: 10-03-2023 09:38-0400 Body surface area Derived from formula 1.79 m2 Fiorella Whelan [facility]; [facility] Work Phone: 10-03-2023 09:38-0400 Body temperature 97.5 [degF] Fiorella Whelan [facility]; [facility] Work Phone: 10-03-2023 09:38-0400 Body weight 78.5 kg Fiorella Whelan [facility]; [facility] Work Phone: 10-03-2023 09:38-0400 Diastolic blood pressure 72 mm[Hg] Fiorella Whelan [facility]; [facility] Work Phone: 10-03-2023 09:38-0400 Heart rate 73 /min Fiorella Whelan [facility]; [facility] Work Phone: 10-03-2023 09:38-0400 Respiratory rate 16 /min Fiorella Whelan [facility]; [facility] Work Phone: 10-03-2023 09:38-0400 SaO2% (BldA) [Mass fraction] 97 % Fiorella Whelan [facility]; [facility] Work Phone: 10-03-2023 09:38-0400 Systolic blood pressure 120 mm[Hg] Fiorella Whelan [facility]; [facility] Work Phone: 07-21-2023 12:58-0400 Body height 154.94 cm TRANSIT VEHICLE INSPECTOR-C Rayshawn Maurice Work Phone: [facility] 07-21-2023 12:53-0400 Body mass index (BMI) [Ratio] 33 kg/m2 TRANSIT VEHICLE INSPECTOR-C Rayshawn Maurice Work Phone: [facility] 07-21-2023 12:53-0400 Body weight 79.43 kg TRANSIT VEHICLE INSPECTOR-C Rayshawn Maurice Work Phone: [facility] 07-21-2023 12:53-0400 Diastolic blood pressure 84 mm[Hg] TRANSIT VEHICLE INSPECTOR-C Rayshawn Maurice Work Phone: [facility] 07-21-2023 12:53-0400 Systolic blood pressure 134 mm[Hg] TRANSIT VEHICLE INSPECTOR-C Rayshawn Maurice Work Phone: [facility] 05-21-2023 12:50-0400 Diastolic blood pressure 67 mm[Hg] TRANSIT VEHICLE INSPECTOR-C Rayshawn Maurice Work Phone: [facility] 05-21-2023 12:50-0400 Heart rate 68 /min TRANSIT VEHICLE INSPECTOR-C Rayshawn Maurice Work Phone: [facility] 05-21-2023 12:50-0400 Respiratory rate 16 /min TRANSIT VEHICLE INSPECTOR-C Rayshawn Maurice Work Phone: [facility] 05-21-2023 12:50-0400 SaO2% (BldA) [Mass fraction] 100 % TRANSIT VEHICLE INSPECTOR-C Rayshawn Maurice Work Phone: [facility] 05-21-2023 12:50-0400 Systolic blood pressure 139 mm[Hg] TRANSIT VEHICLE INSPECTOR-C Rayshawn Chaudhary Work Phone: [facility] 05-21-2023 10:49-0400 Body height 154.94 cm TRANSIT VEHICLE INSPECTOR-C Rayshawn Chaudhary Work Phone: [facility] 05-21-2023 10:49-0400 Body mass index (BMI) [Ratio] 32.5 kg/m2 TRANSIT VEHICLE INSPECTOR-C Rayshawn Chaudhary Work Phone: [facility] 05-21-2023 10:49-0400 Body temperature 97.3 [degF] TRANSIT VEHICLE INSPECTOR-C Rayshawn Chaudhary Work Phone: [facility] 05-21-2023 10:49-0400 Body weight 78.01 kg TRANSIT VEHICLE INSPECTOR-C Rayshawn Chaudhary Work Phone: [facility] 05-15-2023 09:46-0400 Body height 156.21 cm [facility]; [facility] Work Phone: 05-15-2023 09:46-0400 Body mass index (BMI) [Ratio] 32.17 kg/m2 [facility]; [facility] Work Phone: 05-15-2023 09:46-0400 Body surface area Derived from formula 1.79 m2 [facility]; [facility] Work Phone: 05-15-2023 09:46-0400 Body temperature 96.2 [degF] [facility]; [facility] Work Phone: 05-15-2023 09:46-0400 Body weight 78.5 kg [facility]; [facility] Work Phone: 05-15-2023 09:46-0400 Diastolic blood pressure 78 mm[Hg] [facility]; [facility] Work Phone: 05-15-2023 09:46-0400 Heart rate 68 /min [facility]; [facility] Work Phone: 05-15-2023 09:46-0400 Respiratory rate 18 /min [facility]; [facility] Work Phone: 05-15-2023 09:46-0400 SaO2% (BldA) [Mass fraction] 97 % [facility]; [facility] Work Phone: 05-15-2023 09:46-0400 Systolic blood pressure 134 mm[Hg] [facility]; [facility] Work Phone: 04-24-2023 11:24-0400 Body mass index (BMI) [Ratio] 33.2 kg/m2 NONA Chaudhary Work Phone: [facility] 04-24-2023 11:24-0400 Body weight 79.83 kg TRANSIT VEHICLE INSPECTORCandida Chaudhary Work Phone: [facility] 04-24-2023 11:24-0400 Diastolic blood pressure 85 mm[Hg] TRANSIT VEHICLE INSPECTORCandida Chaudhary Work Phone: [facility] 04-24-2023 11:24-0400 Systolic blood pressure 142 mm[Hg] TRANSIT VEHICLE INSPECTORCandida Bearyn Maurice Work Phone: [facility] 03-17-2023 13:27-0400 Body height 156.21 cm Citlali Gonzalez [facility]; [facility] Work Phone: 03-17-2023 13:27-0400 Body mass index (BMI) [Ratio] 32.17 kg/m2 Citlali Gonzalez [facility]; [facility] Work Phone: 03-17-2023 13:27-0400 Body surface area Derived from formula 1.79 m2 Citlali Gonzalez [facility]; [facility] Work Phone: 03-17-2023 13:27-0400 Body temperature 97.5 [degF] Citlali Slarb PHYSICIAN ASSISTANT [facility]; [facility] Work Phone: 03-17-2023 13:27-0400 Body weight 78.5 kg Citlali Slarb PHYSICIAN ASSISTANT [facility]; [facility] Work Phone: 03-17-2023 13:27-0400 Diastolic blood pressure 82 mm[Hg] Citlali Slarb PHYSICIAN ASSISTANT [facility]; [facility] Work Phone: 03-17-2023 13:27-0400 Heart rate 82 /min Citlali Slarb PHYSICIAN ASSISTANT [facility]; [facility] Work Phone: 03-17-2023 13:27-0400 Respiratory rate 16 /min Citlali Slarb PHYSICIAN ASSISTANT [facility]; [facility] Work Phone: 03-17-2023 13:27-0400 SaO2% (BldA) [Mass fraction] 97 % Citlali Slarb PHYSICIAN ASSISTANT [facility]; [facility] Work Phone: 03-17-2023 13:27-0400 Systolic blood pressure 126 mm[Hg] Citlali Slarb PHYSICIAN ASSISTANT [facility]; [facility] Work Phone: 03-10-2023 21:09-0400 Respiratory rate 18 /min TRANSIT VEHICLE INSPECTOR-C Rayshawn Chaudhary Work Phone: [facility] 03-10-2023 20:33-0400 Diastolic blood pressure 77 mm[Hg] TRANSIT VEHICLE INSPECTOR-C Rayshawn Chaudhary Work Phone: [facility] 03-10-2023 20:33-0400 Heart rate 64 /min TRANSIT VEHICLE INSPECTOR-C Rayshawn Chaudhary Work Phone: [facility] 03-10-2023 20:33-0400 SaO2% (BldA) [Mass fraction] 99 % TRANSIT VEHICLE INSPECTOR-C Rayshawn Chaudhary Work Phone: [facility] 03-10-2023 20:33-0400 Systolic blood pressure 187 mm[Hg] TRANSIT VEHICLE INSPECTOR-C Rayshawn Chaudhary Work Phone: [facility] 03-10-2023 18:59-0400 Body mass index (BMI) [Ratio] 34.2 kg/m2 TRANSIT VEHICLE INSPECTOR-C Rayshawn Maurice Work Phone: [facility] 03-10-2023 18:59-0400 Body weight 82.3 kg TRANSIT VEHICLE INSPECTOR-C Rayshawn Maurice Work Phone: [facility] 03-10-2023 17:15-0400 Body height 154.94 cm TRANSIT VEHICLE INSPECTOR-C Rayshawn Maurice Work Phone: [facility] 03-10-2023 17:15-0400 Body temperature 97.1 [degF] TRANSIT VEHICLE INSPECTOR-C Rayshawn Maurice Work Phone: [facility] 03-09-2023 03:08-0400 Diastolic blood pressure 68 mm[Hg] TRANSIT VEHICLE INSPECTOR-C Rayshawn Maurice Work Phone: [facility] 03-09-2023 03:08-0400 Heart rate 70 /min TRANSIT VEHICLE INSPECTOR-C Rayshawn Maurice Work Phone: [facility] 03-09-2023 03:08-0400 Respiratory rate 16 /min TRANSIT VEHICLE INSPECTOR-C Rayshawn Maurice Work Phone: [facility] 03-09-2023 03:08-0400 SaO2% (BldA) [Mass fraction] 98 % TRANSIT VEHICLE INSPECTOR-C Rayshawn Maurice Work Phone: [facility] 03-09-2023 03:08-0400 Systolic blood pressure 144 mm[Hg] TRANSIT VEHICLE INSPECTOR-C Rayshawn Maurice Work Phone: [facility] 03-08-2023 23:55-0400 Body height 154.94 cm TRANSIT VEHICLE INSPECTOR-C Rayshawn Maurice Work Phone: [facility] 03-08-2023 23:55-0400 Body mass index (BMI) [Ratio] 33.4 kg/m2 TRANSIT VEHICLE INSPECTOR-C Rayshawn Maurice Work Phone: [facility] 03-08-2023 23:55-0400 Body temperature 98.2 [degF] TRANSIT VEHICLE INSPECTOR-C Rayshawn Maurice Work Phone: [facility] 03-08-2023 23:55-0400 Body weight 80.2 kg TRANSIT VEHICLE INSPECTOR-C Rayshawn Chaudhary Work Phone: [facility] 01-23-2023 10:27-0500 Body mass index (BMI) [Ratio] 33.5 kg/m2 TRANSIT VEHICLE INSPECTOR-C Rayshawn Chaudhary Work Phone: [facility] 01-23-2023 10:27-0500 Body weight 80.45 kg TRANSIT VEHICLE INSPECTOR-C Rayshawn Chaudhary Work Phone: [facility] 01-23-2023 10:27-0500 Diastolic blood pressure 78 mm[Hg] TRANSIT VEHICLE INSPECTOR-C Rayshawn Chaudhary Work Phone: [facility] 01-23-2023 10:27-0500 Systolic blood pressure 134 mm[Hg] TRANSIT VEHICLE INSPECTOR-C Rayshawn Chaudhary Work Phone: [facility] 12-24-2022 09:42-0500 Body height 156.21 cm Citlali Slarb JL [facility]; [facility] Work Phone: 12-24-2022 09:42-0500 Body mass index (BMI) [Ratio] 32.17 kg/m2 Citlali Slarb PHYSICIAN ASSISTANT [facility]; [facility] Work Phone: 12-24-2022 09:42-0500 Body surface area Derived from formula 1.79 m2 Citlali Philrb PHYSICIAN ASSISTANT [facility]; [facility] Work Phone: 12-24-2022 09:42-0500 Body temperature 97.6 [degF] Citlali Slarb PHYSICIAN ASSISTANT [facility]; [facility] Work Phone: Comment on above: Method: Temporal 12-24-2022 09:42-0500 Body weight 78.5 kg Citlali Slarb PHYSICIAN ASSISTANT [facility]; [facility] Work Phone: 12-24-2022 09:42-0500 Diastolic blood pressure 82 mm[Hg] Citlali Slarb PHYSICIAN ASSISTANT [facility]; [facility] Work Phone: Comment on above: Patient Position: Sitting; Cuff Location : Left Arm; Cuff Size: Standard 12-24-2022 09:42-0500 Heart rate 52 /min Citlali Slarb PHYSICIAN ASSISTANT [facility]; [facility] Work Phone: Comment on above: Pattern: Regular 12-24-2022 09:42-0500 Respiratory rate 16 /min Citlali Slarb PHYSICIAN ASSISTANT [facility]; [facility] Work Phone: Comment on above: Pattern: Unlabored 12-24-2022 09:42-0500 SaO2% (BldA) [Mass fraction] 98 % Citlali Slarb PHYSICIAN ASSISTANT [facility]; [facility] Work Phone: Comment on above: Room air 12-24-2022 09:42-0500 Systolic blood pressure 132 mm[Hg] Citlali Slarb PHYSICIAN ASSISTANT [facility]; [facility] Work Phone: Comment on above: Patient Position: Sitting; Cuff Location : Left Arm; Cuff Size: Standard 09-24-2022 09:28-0400 Body height 156.21 cm Citlali Slarb PHYSICIAN ASSISTANT [facility]; [facility] Work Phone: 09-24-2022 09:28-0400 Body mass index (BMI) [Ratio] 32.17 kg/m2 Citlali Slarb PHYSICIAN ASSISTANT [facility]; [facility] Work Phone: 09-24-2022 09:28-0400 Body surface area Derived from formula 1.79 m2 Citlali Slarb PHYSICIAN ASSISTANT [facility]; [facility] Work Phone: 09-24-2022 09:28-0400 Body temperature 97.4 [degF] Citlali Slarb PHYSICIAN ASSISTANT [facility]; [facility] Work Phone: 09-24-2022 09:28-0400 Body weight 78.5 kg Citlali Slarb PHYSICIAN ASSISTANT [facility]; [facility] Work Phone: 09-24-2022 09:28-0400 Diastolic blood pressure 84 mm[Hg] Citlali Slarb PHYSICIAN ASSISTANT [facility]; [facility] Work Phone: Comment on above: Patient Position: Sitting; Cuff Location : Left Arm; Cuff Size: Standard 09-24-2022 09:28-0400 Heart rate 72 /min Citlali Slarb PHYSICIAN ASSISTANT [facility]; [facility] Work Phone: Comment on above: Pattern: Regular 09-24-2022 09:28-0400 Respiratory rate 17 /min Citlali Slarb PHYSICIAN ASSISTANT [facility]; [facility] Work Phone: Comment on above: Pattern: Unlabored 09-24-2022 09:28-0400 SaO2% (BldA) [Mass fraction] 97 % Citlali Slarb PHYSICIAN ASSISTANT [facility]; [facility] Work Phone: Comment on above: Room air 09-24-2022 09:28-0400 Systolic blood pressure 128 mm[Hg] Citlali Slarb PHYSICIAN ASSISTANT [facility]; [facility] Work Phone: Comment on above: Patient Position: Sitting; Cuff Location : Left Arm; Cuff Size: Standard 09-04-2022 09:23-0400 Body height 154.94 cm TRANSIT VEHICLE INSPECTOR-C Belem Hagen TRANSIT VEHICLE INSPECTOR Work Phone: [facility] Work Phone: 09-04-2022 09:22-0400 Body mass index (BMI) [Ratio] 33.6 kg/m2 TRANSIT VEHICLE INSPECTOR-C Belem Hagen TRANSIT VEHICLE INSPECTOR Work Phone: [facility] Work Phone: 09-04-2022 09:22-0400 Body weight 80.73 kg TRANSIT VEHICLE INSPECTOR-C Belem Jyothimalia TRANSIT VEHICLE INSPECTOR Work Phone: [facility] Work Phone: 09-04-2022 09:22-0400 Diastolic blood pressure 80 mm[Hg] TRANSIT VEHICLE INSPECTOR-C Belem Brownleea TRANSIT VEHICLE INSPECTOR Work Phone: [facility] Work Phone: 09-04-2022 09:22-0400 Systolic blood pressure 161 mm[Hg] TRANSIT VEHICLE INSPECTOR-C Belem Hagen TRANSIT VEHICLE INSPECTOR Work Phone: [facility] Work Phone: 05-16-2022 05:06-0400 Diastolic blood pressure 66 mm[Hg] TRANSIT VEHICLE INSPECTOR-C Belem Brownleea TRANSIT VEHICLE INSPECTOR Work Phone: [facility] Work Phone: 05-16-2022 05:06-0400 Heart rate 80 /min TRANSIT VEHICLE INSPECTOR-C Belem Brownleea TRANSIT VEHICLE INSPECTOR Work Phone: [facility] Work Phone: 05-16-2022 05:06-0400 Respiratory rate 16 /min TRANSIT VEHICLE INSPECTOR-C Belem Brownleea TRANSIT VEHICLE INSPECTOR Work Phone: [facility] Work Phone: 05-16-2022 05:06-0400 Systolic blood pressure 121 mm[Hg] TRANSIT VEHICLE INSPECTOR-C Belem Brownleea TRANSIT VEHICLE INSPECTOR Work Phone: [facility] Work Phone: 05-16-2022 04:00-0400 SaO2% (BldA) [Mass fraction] 99 % TRANSIT VEHICLE INSPECTOR-C Belem Hagen TRANSIT VEHICLE INSPECTOR Work Phone: [facility] Work Phone: 05-16-2022 01:03-0400 Body height 154.94 cm TRANSIT VEHICLE INSPECTOR-C Belem Hagen TRANSIT VEHICLE INSPECTOR Work Phone: [facility] Work Phone: 05-16-2022 01:03-0400 Body mass index (BMI) [Ratio] 32.5 kg/m2 TRANSIT VEHICLE INSPECTOR-C Belem Brownleea TRANSIT VEHICLE INSPECTOR Work Phone: [facility] Work Phone: 05-16-2022 01:03-0400 Body temperature 97.3 [degF] TRANSIT VEHICLE INSPECTOR-C Belem Brownleea TRANSIT VEHICLE INSPECTOR Work Phone: [facility] Work Phone: 05-16-2022 01:03-0400 Body weight 78.01 kg TRANSIT VEHICLE INSPECTOR-C Belem Brownleea TRANSIT VEHICLE INSPECTOR Work Phone: [facility] Work Phone: 03-11-2022 09:19-0400 Body height 156.21 cm Marry Marroquin JL [facility] Work Phone: 03-11-2022 09:19-0400 Body mass index (BMI) [Ratio] 32.17 kg/m2 Marry Marroquin LPN [facility] Work Phone: 03-11-2022 09:0400 Body surface area Derived from formula 1.79 m2 Marry Marroquin JL [facility] Work Phone: 03-11-2022 09:0400 Body temperature 97.1 [degF] Marry Marroquin JL [facility] Work Phone: 03-11-2022 09:-0400 Body weight 78.5 kg Marry Marroquin JL [facility] Work Phone: 03-11-2022 09:19-0400 Diastolic blood pressure 90 mm[Hg] Marry Marroquin JL [facility] Work Phone: Comment on above: Patient Position: Sitting; Cuff Location : Left Arm; Cuff Size: Standard 03-11-2022 09:19-0400 Heart rate 69 /min Marry Marroquin LPN [facility]; [...] 02-28-2022 15:57-0400 Diastolic blood pressure 91 mm[Hg] TRANSIT VEHICLE INSPECTOR-C Belem Brownleea TRANSIT VEHICLE INSPECTOR Work Phone: [facility] Work Phone: 02-28-2022 15:57-0400 Respiratory rate 18 /min TRANSIT VEHICLE INSPECTOR-C Belem Brownleea TRANSIT VEHICLE INSPECTOR Work Phone: [facility] Work Phone: 02-28-2022 15:57-0400 Systolic blood pressure 154 mm[Hg] TRANSIT VEHICLE INSPECTOR-C Belem Brownleea TRANSIT VEHICLE INSPECTOR Work Phone: [facility] Work Phone: 02-28-2022 15:23-0400 Heart rate 60 /min TRANSIT VEHICLE INSPECTOR-C Belem Brownleea TRANSIT VEHICLE INSPECTOR Work Phone: [facility] Work Phone: 02-28-2022 15:23-0400 SaO2% (BldA) [Mass fraction] 96 % TRANSIT VEHICLE INSPECTOR-C Belem Hagen TRANSIT VEHICLE INSPECTOR Work Phone: [facility] Work Phone: 02-28-2022 13:20-0400 Body height 154.94 cm TRANSIT VEHICLE INSPECTOR-C Belem Hagen TRANSIT VEHICLE INSPECTOR Work Phone: [facility] Work Phone: 02-28-2022 13:20-0400 Body mass index (BMI) [Ratio] 32.1 kg/m2 TRANSIT VEHICLE INSPECTOR-C Belem Brownleea TRANSIT VEHICLE INSPECTOR Work Phone: [facility] Work Phone: 02-28-2022 13:20-0400 Body temperature 97.3 [degF] TRANSIT VEHICLE INSPECTOR-C Belem Brownleea TRANSIT VEHICLE INSPECTOR Work Phone: [facility] Work Phone: 02-28-2022 13:20-0400 Body weight 77 kg TRANSIT VEHICLE INSPECTOR-C Belem Brownleea TRANSIT VEHICLE INSPECTOR Work Phone: [facility] Work Phone: 02-25-2022 09:52-0400 Body mass index (BMI) [Ratio] 33.2 kg/m2 TRANSIT VEHICLE INSPECTOR-C Belem Roeesa TRANSIT VEHICLE INSPECTOR Work Phone: [facility] Work Phone: 02-25-2022 09:52-0400 Body weight 79.83 kg TRANSIT VEHICLE INSPECTOR-C Belem Ciesa TRANSIT VEHICLE INSPECTOR Work Phone: [facility] Work Phone: 02-25-2022 09:52-0400 Diastolic blood pressure 86 mm[Hg] TRANSIT VEHICLE INSPECTOR-C Belem Ciesa TRANSIT VEHICLE INSPECTOR Work Phone: [facility] Work Phone: 02-25-2022 09:52-0400 Systolic blood pressure 128 mm[Hg] TRANSIT VEHICLE INSPECTOR-C Belem Ciesa TRANSIT VEHICLE INSPECTOR Work Phone: [facility] Work Phone: 02-25-2022 09:52-0400 Body mass index (BMI) [Ratio] 33.2 kg/m2 TRANSIT VEHICLE INSPECTOR-C Belem Jyothiesa TRANSIT VEHICLE INSPECTOR Work Phone: [facility] Work Phone: 02-25-2022 09:52-0400 Body weight 79.83 kg TRANSIT VEHICLE INSPECTOR-C Belem Brownleea TRANSIT VEHICLE INSPECTOR Work Phone: [facility] Work Phone: 02-25-2022 09:52-0400 Diastolic blood pressure 86 mm[Hg] TRANSIT VEHICLE INSPECTOR-C Belem Roeesa TRANSIT VEHICLE INSPECTOR Work Phone: [facility] Work Phone: 02-25-2022 09:52-0400 Systolic blood pressure 128 mm[Hg] TRANSIT VEHICLE INSPECTOR-C Belem Roeesa TRANSIT VEHICLE INSPECTOR Work Phone: [facility] Work Phone: 12-11-2021 09:48-0500 Body height 156.21 cm Marry Marroquin LPN [facility] Work Phone: Comment on above: virtual, none reported 12-11-2021 09:48-0500 Body mass index (BMI) [Ratio] 32.17 kg/m2 Marry Marroquin PHYSICIAN ASSISTANT [facility]; [facility] Work Phone: Comment on above: virtual, none reported 12-11-2021 09:48-0500 Body surface area Derived from formula 1.79 m2 Marry Marroquin PHYSICIAN ASSISTANT [facility] Work Phone: Comment on above: virtual, none reported 12-11-2021 09:48-0500 Body weight 78.5 kg Marry Marroquin [facility] Work Phone: Comment on above: virtual, none reported 11-19-2021 09:34-0500 Body mass index (BMI) [Ratio] 32.7 kg/m2 TRANSIT VEHICLE INSPECTOR-C Belem Brownleea TRANSIT VEHICLE INSPECTOR Work Phone: [facility] Work Phone: 11-19-2021 09:34-0500 Body weight 78.64 kg TRANSIT VEHICLE INSPECTOR-C Bleem Brownleea TRANSIT VEHICLE INSPECTOR Work Phone: [facility] Work Phone: 11-19-2021 09:34-0500 Diastolic blood pressure 80 mm[Hg] TRANSIT VEHICLE INSPECTOR-C Belem Brownleea TRANSIT VEHICLE INSPECTOR Work Phone: [facility] Work Phone: 11-19-2021 09:34-0500 Systolic blood pressure 146 mm[Hg] TRANSIT VEHICLE INSPECTOR-C Belem Brownleea TRANSIT VEHICLE INSPECTOR Work Phone: [facility] Work Phone: 09-26-2021 08:50-0400 Body height 156.21 [...] 01-30-2021 08:52-0500 Pulse Oximetry 99 % Belem Hagen [facility]; [facility] [...] Temporal 01-03-2021 08:39-0500 Body weight 80.29 kg Marryfransisco Marroquin JL [facility]; [facility] [...] 01-03-2021 08:39-0500 Pulse (Heart Rate) 83 /min Mar[facility]fransisco [facility]quin [facility]; [facility] Work Phone: Comment on above: Pattern: Regular 01-03-2021 08:39-0500 Pulse Oximetry 98 % Belem Hagen [facility] Medicine; [facility] Work Phone: Comment on above: Room air 01-03-2021 08:39-0500 Respiratory Rate 16 /min Marry Marroquin LPN [facility]; [facility] Work Phone: Comment on above: Pattern: Unlabored 01-03-2021 08:39-0500 SaO2% (BldA) [Mass fraction] 98 % Marry Marroquin LPN [facility]; [facility] Work Phone: Comment on above: Room air 10-23-2020 07:57-0500 BMI (Body Mass Index) 32.16 kg/m2 Belem Hagen [employer] E[employer] Work Phone: [facility] Work Phone: 10-23-2020 07:57-0500 Body Temperature 96.4 [degF] Belem Hagen [employer]OMECH[employer] EQUIPMENT TE[employer] Work Phone: [facility] Work Phone: 10-23-2020 07:57-0500 Body weight 78.48 kg Belem Hagen [employer]LECTROMECH[employer] EQUIPMENT TESTER Work Phone: [facility] Work Phone: 10-23-2020 07:57-0500 BSA (Body Surface Area) 1.79 m2 Bleem Hagen [employer]ROMECH[employer]ICAL EQUIPMENT TESTER Work Phone: [facility] Work Phone: 10-23-2020 07:57-0500 Height 156.21 cm Belem Hagen [employer]LECTROMECH[employer]ICAL EQUIPMENT TESTER Work Phone: [facility] Work Phone: 09-18-2020 13:23-0400 BMI (Body Mass Index) 32.16 kg/m2 Micki Rodriguez [facility] Work Phone: 09-18-2020 13:23-0400 Body Temperature 96.3 [degF] Micki Rodriguez [facility] Comprehens e Internal Medicine Work Phone: Comment on above: Method: Infrared 09-18-2020 13:23-0400 Body weight 78.48 kg Micki Rodriguez [facility] Work Phone: 09-18-2020 13:23-0400 BP Diastolic 80 mm[Hg] Micki Torresius [facility] Work Phone: Comment on above: Patient Position: Sitting; Cuff Location : Left Arm; Cuff Size: Standard 09-18-2020 13:23-0400 BP Systolic 138 mm[Hg] Micki Gravius [facility] Work Phone: Comment on above: Patient Position: Sitting; Cuff Location : Left Arm; Cuff Size: Standard 09-18-2020 13:23-0400 BSA (Body Surface Area) 1.79 m2 Micki Gravius [facility] Work Phone: 09-18-2020 13:23-0400 Height 156.21 cm Micki Rodriguez CMA [facility] Work Phone: 09-18-2020 13:23-0400 Pulse (Heart Rate) 85 /min Micki Rodriguez CMA [facility] Work Phone: Comment on above: Pattern: Regular 09-18-2020 13:23-0400 Pulse Oximetry 98 % Belem Hagen [facility] Work Phone: Comment on above: Room air 09-18-2020 13:23-0400 Respiratory Rate 16 /min Micki Rodriguez CMA [facility] Work Phone: Comment on above: Pattern: Unlabored 09-18-2020 13:23-0400 SaO2% (BldA) [Mass fraction] 98 % Micki Rodriguez [facility]; [facility] Work Phone: Comment on above: Room air 06-21-2020 08:20-0400 BMI (Body Mass Index) 31.97 kg/m2 Afshin Sanchez [facility] Internal Medicine Work Phone: 06-21-2020 08:20-0400 Body Temperature 97.1 [degF] Afshin Sanchez [facility] Internal Medicine Work Phone: Comment on above: Method: Infrared 06-21-2020 08:20-0400 Body weight 78.02 kg Afshin Sanchez [facility] Internal Medicine Work Phone: 06-21-2020 08:20-0400 BP Diastolic 80 mm[Hg] Afshin Sanchez [facility] Internal Medicine Work Phone: Comment on above: Patient Position: Sitting; Cuff Location : Left Arm; Cuff Size: Standard 06-21-2020 08:20-0400 BP Systolic 130 mm[Hg] Afshin Sanchez [facility] Internal Medicine Work Phone: Comment on above: Patient Position: Sitting; Cuff Location : Left Arm; Cuff Size: Standard 06-21-2020 08:20-0400 BSA (Body Surface Area) 1.78 m2 Afshin Sanchez [facility] Internal Medicine Work Phone: 06-21-2020 08:20-0400 Height 156.21 cm Afshin Sanchez PHYSICIAN ASSISTANT [facility] Work Phone: 06-21-2020 08:20-0400 Pulse (Heart Rate) 84 /min Afshin Sanchez LPN [facility] Work Phone: Comment on above: Pattern: Regular 06-21-2020 08:20-0400 Pulse Oximetry 97 % Belem Hagen [facility] Internal Medicine Work Phone: Comment on above: Room air 06-21-2020 08:20-0400 Respiratory Rate 16 /min Afshin Sanchez PHYSICIAN ASSISTANT [facility] Work Phone: Comment on above: Pattern: Unlabored 06-21-2020 08:20-0400 SaO2% (BldA) [Mass fraction] 97 % Afshin Sanchez [facility] Internal Medicine; [facility] Work Phone: Comment on above: Room air 03-01-2020 08:40-0400 BMI (Body Mass Index) 32.53 kg/m2 Afshin Sanchez [facility] Work Phone: Comment on above: pt will check temp and report when russ d 03-01-2020 08:40-0400 Body weight 79.38 kg Afshin Sanchez [facility] Work Phone: Comment on above: pt will check temp and report when russ d 03-01-2020 08:40-0400 BSA (Body Surface Area) 1.8 m2 Afshin Sanchez PHYSICIAN ASSISTANT [facility] Internal Medicine Work Phone: Comment on above: pt will check temp and report when russ d 03-01-2020 08:40-0400 Height 156.21 cm Afshin Sanchez [facility] Work Phone: Comment on above: pt will check temp and report when russ d 02-28-2020 09:55-0400 BMI (Body Mass Index) 32.53 kg/m2 Marry Marroquin [facility] Internal Medicine Work Phone: 02-28-2020 09:55-0400 Body Temperature 97.3 [degF] Marry Marroquin [facility] Work Phone: Comment on above: Method: Temporal 02-28-2020 09:55-0400 Body weight 79.38 kg Marry Marroquin PHYSICIAN ASSISTANT [facility] Work Phone: 02-28-2020 09:55-0400 BP Diastolic 80 mm[Hg] Marry Marroquin LPN [facility] Work Phone: Comment on above: Patient Position: Sitting; Cuff Location : Left Arm; Cuff Size: Standard 02-28-2020 09:55-0400 BP Systolic 128 mm[Hg] Marry Marroquin PHYSICIAN ASSISTANT [facility] Work Phone: Comment on above: Patient Position: Sitting; Cuff Location : Left Arm; Cuff Size: Standard 02-28-2020 09:55-0400 BSA (Body Surface Area) 1.8 m2 Marry Marroquin PHYSICIAN ASSISTANT [facility] Work Phone: 02-28-2020 09:55-0400 Height 156.21 cm Marry Marroquin JL [facility] Work Phone: 02-28-2020 09:55-0400 Pulse (Heart Rate) 67 /min [facility] Work Phone: Comment on above: Pattern: Regular 02-28-2020 09:55-0400 Pulse Oximetry 98 % Belem Hieu [facility] Internal Medicine Work Phone: Comment on above: Room air 02-28-2020 09:55-0400 Respiratory Rate 16 /min Marry Marroquin PHYSICIAN ASSISTANT [facility] Work Phone: Comment on above: Pattern: Unlabored 02-28-2020 09:55-0400 SaO2% (BldA) [Mass fraction] 98 % Marry Marroquin LPN [facility]; [facility] Work Phone: Comment on above: Room air 10-14-2019 08:55-0500 BMI (Body Mass Index) 31.88 kg/m2 Citlali Villarreallizet PARIKH [facility] Work Phone: 10-14-2019 08:55-0500 Body weight 77.79 kg Citlali Villarreallizet PHYSICIAN ASSISTANT [facility] Work Phone: 10-14-2019 08:55-0500 BP Diastolic 80 mm[Hg] Citlali Gonzalez PHYSICIAN ASSISTANT [facility] Work Phone: Comment on above: Patient Position: Sitting; Cuff Location : Left Arm; Cuff Size: Standard 10-14-2019 08:55-0500 BP Systolic 116 mm[Hg] Citlali Gonzalez PHYSICIAN ASSISTANT [facility] Work Phone: Comment on above: Patient Position: Sitting; Cuff Location : Left Arm; Cuff Size: Standard 10-14-2019 08:55-0500 BSA (Body Surface Area) 1.78 m2 Citlali Gonzalez PHYSICIAN ASSISTANT [facility] Work Phone: 10-14-2019 08:55-0500 Height 156.21 cm Citlali Gonzalez PHYSICIAN ASSISTANT [facility] Work Phone: 10-14-2019 08:55-0500 Pulse (Heart Rate) 94 /min Citlali Gonzalez LPN [facility] Work Phone: Comment on above: Pattern: Regular 10-14-2019 08:55-0500 Pulse Oximetry 99 % Belem Hagen [facility] Work Phone: Comment on above: Room air 10-14-2019 08:55-0500 Respiratory Rate 16 /min Citlali Gonzalez LPN [facility] Work Phone: Comment on above: Pattern: Unlabored 10-14-2019 08:55-0500 SaO2% (BldA) [Mass fraction] 99 % Citlali Gonzalez PHYSICIAN ASSISTANT [facility]; [facility] Work Phone: Comment on above: Room air 12-02-2018 09:07-0500 BMI (Body Mass Index) 31.88 kg/m2 Micki Rodriguez [facility] Work Phone: 12-02-2018 09:07-0500 Body Temperature 96.8 [degF] Micki Rodriguez SENIOR BUSINESS ANALYST Comprehens[facility] e [facility] Work Phone: Comment on above: Method: Temporal 12-02-2018 09:07-0500 Body weight 77.79 kg Micki Rodriguez [facility] Work Phone: 12-02-2018 09:07-0500 BP Diastolic 82 mm[Hg] Micki Rodriguez CMA [facility] Work Phone: Comment on above: Patient Position: Sitting; Cuff Location : Left Arm; Cuff Size: Standard 12-02-2018 09:07-0500 BP Systolic 126 mm[Hg] Micki Rodriguez CMA [facility] Internal Medicine Work Phone: Comment on above: Patient Position: Sitting; Cuff Location : Left Arm; Cuff Size: Standard 12-02-2018 09:07-0500 BSA (Body Surface Area) 1.78 m2 Micki Rodriguez [facility] Work Phone: 12-02-2018 09:07-0500 Height 156.21 cm Micki Rodriguez CMA [facility] Internal Medicine Work Phone: 12-02-2018 09:07-0500 Pulse (Heart Rate) 87 /min Micki Rodriguez CMA [facility] Work Phone: Comment on above: Pattern: Regular 12-02-2018 09:07-0500 Pulse Oximetry 97 % Belem Hagen [facility] Internal Medicine Work Phone: Comment on above: Room air 12-02-2018 09:07-0500 Respiratory Rate 16 /min Micki Rodriguez CMA [facility] Work Phone: Comment on above: Pattern: Unlabored 12-02-2018 09:07-0500 SaO2% (BldA) [Mass fraction] 97 % Micki Rodriguez [facility]; [facility] Work Phone: Comment on above: Room air 12-02-2018 09:07-0500 Weight 77.79 kg Belem Hagen [facility] Internal Medicine Work Phone: 07-27-2018 10:17-0400 BMI (Body Mass Index) 31.88 kg/m2 Kamla Valentino [facility] Internal Medicine Work Phone: 07-27-2018 10:17-0400 Body Temperature 97 [degF] Kamla Valentino [facility] Internal Medicine Work Phone: Comment on above: Method: Temporal 08-27-2018 10:170400 Body weight 77.79 kg Kamla Valentino [facility] Internal Medicine Work Phone: 07-27-2018 10:17-0400 BP Diastolic 90 mm[Hg] Kamla Valentino [facility] Internal Medicine Work Phone: Comment on above: Patient Position: Sitting; Cuff Location : Left Arm; Cuff Size: Standard 07-27-2018 10:17-0400 BP Systolic 162 mm[Hg] Kamla Valentino [facility] Internal Medicine Work Phone: Comment on above: Patient Position: Sitting; Cuff Location : Left Arm; Cuff Size: Standard 07-27-2018 10:170400 BSA (Body Surface Area) 1.78 m2 Kamla Valentino [facility] Internal Medicine Work Phone: 07-27-2018 10:17-0400 Height 156.21 cm Kamla Valentino [facility] Internal Medicine Work Phone: 07-27-2018 10:17-0400 Pulse (Heart Rate) 82 /min Kamla Valentino [facility] Internal Medicine Work Phone: Comment on above: Pattern: Regular 07-27-2018 10:17-0400 Pulse Oximetry 97 % Belem Hagen [facility] Internal Medicine Work Phone: Comment on above: Room air 07-27-2018 10:17-0400 Respiratory Rate 18 /min Kamla Valentino [facility] Internal Medicine Work Phone: Comment on above: Pattern: Unlabored 07-27-2018 10:17-0400 SaO2% (BldA) [Mass fraction] 97 % Kamla Valentino [facility] Internal [facility]; [facility] Work Phone: Comment on above: Room air 07-27-2018 10:170400 Weight 77.79 kg Belem Hagen [facility] Internal Medicine Work Phone: 10-16-2017 10:12-0500 BMI (Body Mass Index) 32.53 kg/m2 Agnieszka Rae RN [facility] Work Phone: 10-16-2017 10:12-0500 Body Temperature 97.2 [degF] Agnieszka Rae RN [facility] Work Phone: Comment on above: Method: Temporal 10-16-2017 10:12-0500 Body weight 79.38 kg Agnieszka Rae RN [...] Phone: 07-18-2017 08:49-0400 Body Temperature 97.9 [degF] Citlali Gonzalez LPN [facility] Work Phone: 07-18-2017 08:49-0400 Body weight 79.38 kg Citlali Gonzalez PHYSICIAN ASSISTANT [facility] Work Phone: 07-18-2017 08:49-0400 BP Diastolic 80 mm[Hg] Citlali Gonzalez PHYSICIAN ASSISTANT [facility] Work Phone: Comment on above: Patient Position: Sitting; Cuff Location : Left Arm; Cuff Size: Standard 07-18-2017 08:49-0400 BP Systolic 124 mm[Hg] Citlali Gonzalez PHYSICIAN ASSISTANT [facility] Work Phone: Comment on above: Patient Position: Sitting; Cuff Location : Left Arm; Cuff Size: Standard 07-18-2017 08:49-0400 BSA (Body Surface Area) 1.8 m2 Citlali Gonzalez PHYSICIAN ASSISTANT [facility] Work Phone: 07-18-2017 08:49-0400 Height 156.21 cm Citlali Gonzalez LPN [facility] Work Phone: 07-18-2017 08:49-0400 Pulse (Heart Rate) 72 /min Citlali Gonzalez LPN [facility] Work Phone: Comment on above: Pattern: Regular 07-18-2017 08:49-0400 Pulse Oximetry 98 % Belem Hagen [facility] Internal Medicine Work Phone: Comment on above: Room air 07-18-2017 08:49-0400 Respiratory Rate 17 /min Citlali Gonzalez LPN [facility] Work Phone: Comment on above: Pattern: Unlabored 07-18-2017 08:49-0400 SaO2% (BldA) [Mass fraction] 98 % Citlali Gonzalez PHYSICIAN ASSISTANT [facility]; [facility] Work Phone: Comment on above: Room air 07-18-2017 08:49-0400 Weight 79.38 kg Belem Hagen [facility] Medicine Work Phone: 12-16-2016 13:21-0500 BMI (Body Mass Index) 32.53 kg/m2 Citlali Gonzalez PHYSICIAN ASSISTANT [facility] Work Phone: 12-16-2016 13:21-0500 Body Temperature 97.2 [degF] Citlali Philrb PHYSICIAN ASSISTANT [facility] Work Phone: 12-16-2016 13:21-0500 Body weight 79.38 kg Citlali Villarrealrb PHYSICIAN ASSISTANT [facility] Work Phone: 12-16-2016 13:21-0500 BP Diastolic 82 mm[Hg] Citlali Philrb PHYSICIAN ASSISTANT [facility] Work Phone: Comment on above: Patient Position: Sitting; Cuff Location : Left Arm; Cuff Size: Standard 12-16-2016 13:21-0500 BP Systolic 126 mm[Hg] Citlali Philrb PHYSICIAN ASSISTANT [facility] Work Phone: Comment on above: Patient Position: Sitting; Cuff Location : Left Arm; Cuff Size: Standard 12-16-2016 13:21-0500 BSA (Body Surface Area) 1.8 m2 Citlali Villarrealrb PHYSICIAN ASSISTANT [facility] Work Phone: 12-16-2016 13:21-0500 Height 156.21 cm Citlali Slarb PHYSICIAN ASSISTANT [facility] Work Phone: 12-16-2016 13:21-0500 Pulse (Heart Rate) 81 /min Citlali Gonzalez PHYSICIAN ASSISTANT [facility] Work Phone: Comment on above: Pattern: Regular 12-16-2016 13:21-0500 Pulse Oximetry 99 % Belem Hagen [facility] Internal Medicine Work Phone: Comment on above: Room air 12-16-2016 13:21-0500 Respiratory Rate 16 /min Citlali Philrb PHYSICIAN ASSISTANT [facility] Work Phone: Comment on above: Pattern: Unlabored 12-16-2016 13:21-0500 SaO2% (BldA) [Mass fraction] 99 % Citlali Gonzalez PHYSICIAN ASSISTANT [facility]; [facility] Work Phone: Comment on above: Room air 12-16-2016 13:21-0500 Weight 79.38 kg Belem Hagen [facility] Internal Medicine Work Phone: 09-23-2016 09:51-0400 BMI (Body Mass Index) 31.79 kg/m2 Citlali Gonzalez PHYSICIAN ASSISTANT [facility] Work Phone: 09-23-2016 09:51-0400 Body Temperature 97.4 [degF] Citlali Gonzalez PHYSICIAN ASSISTANT [facility] Work Phone: 09-23-2016 09:51-0400 Body weight 77.57 kg Citlali Gonzalez PHYSICIAN ASSISTANT [facility] Work Phone: 09-23-2016 09:51-0400 BP Diastolic 82 mm[Hg] Citlali Villarreallizet PHYSICIAN ASSISTANT [facility] Work Phone: Comment on above: Patient Position: Sitting; Cuff Location : Left Arm; Cuff Size: Standard 09-23-2016 09:51-0400 BP Systolic 124 mm[Hg] Citlali Slalizet DUMONTN [facility] Work Phone: Comment on above: Patient Position: Sitting; Cuff Location : Left Arm; Cuff Size: Standard 09-23-2016 09:51-0400 BSA (Body Surface Area) 1.78 m2 Citlali Slalizet DUMONTN [facility] Work Phone: 09-23-2016 09:51-0400 Height 156.21 cm Citlali Gonzalez PHYSICIAN ASSISTANT [facility] Work Phone: 09-23-2016 09:51-0400 Pulse (Heart Rate) 58 /min Citlali Gonzalez PHYSICIAN ASSISTANT [facility] Work Phone: Comment on above: Pattern: Regular 09-23-2016 09:51-0400 Pulse Oximetry 98 % Belem Hagen [facility] Internal Medicine Work Phone: Comment on above: Room air 09-23-2016 09:51-0400 Respiratory Rate 18 /min Citlali Gonzalez PHYSICIAN ASSISTANT [facility] Work Phone: Comment on above: Pattern: Unlabored 09-23-2016 09:51-0400 SaO2% (BldA) [Mass fraction] 98 % Citlali Carlos DUMONTN [facility]; [facility] Work Phone: Comment on above: Room air 09-23-2016 09:51-0400 Weight 77.57 kg Belem Hagen [facility] Work Phone: 08-06-2016 09:23-0400 BMI [...] 08-06-2016 09:23-0400 Pulse Oximetry 97 % Belem Hagen [facility] [...] BMI (Body Mass Index) 31.83 kg/m2 Citlali Slarb PHYSICIAN ASSISTANT [facility] Work Phone: 05-02-2016 10:04-0400 Body Temperature 97 [degF] Citlali Slarb PHYSICIAN ASSISTANT [facility] Work Phone: 05-02-2016 [id number] Body weight 77.68 kg Citlali Slarb PHYSICIAN ASSISTANT [facility] Work Phone: 05-02-2016 10:04-0400 BP Diastolic 82 mm[Hg] Citlali Slarb PHYSICIAN ASSISTANT [facility] Work Phone: Comment on above: Patient Position: Sitting; Cuff Location : Left Arm; Cuff Size: Standard 05-02-2016 10:04-0400 BP Systolic 122 mm[Hg] Citlali Slarb PHYSICIAN ASSISTANT [facility] Work Phone: Comment on above: Patient Position: Sitting; Cuff Location : Left Arm; Cuff Size: Standard 05-02-2016 10:04-0400 BSA (Body Surface Area) 1.78 m2 Citlali Slarb PHYSICIAN ASSISTANT [facility] Work Phone: 05-02-2016 10:04-0400 Height 156.21 cm Citlali Slarb PHYSICIAN ASSISTANT [facility] Work Phone: 05-02-2016 10:04-0400 Pulse (Heart Rate) 70 /min Citlali Slarb PHYSICIAN ASSISTANT [facility] Work Phone: Comment on above: Pattern: Regular 05-02-2016 10:04-0400 Pulse Oximetry 97 % Belem Hagen [facility] Work Phone: Comment on above: Room air 05-02-2016 10:04-0400 Respiratory Rate 17 /min Citlali Slarb PHYSICIAN ASSISTANT [facility] Work Phone: Comment on above: Pattern: Unlabored 05-02-2016 10:04-0400 SaO2% (BldA) [Mass fraction] 97 % Citlali Slarb PHYSICIAN ASSISTANT [facility]; [facility] Work Phone: Comment on above: Room air 05-02-2016 [id number] Weight 77.68 kg Belem Hagen [facility] Work Phone: 04-19-2016 14:13-0400 BMI (Body Mass Index) 32.37 kg/m2 Citlali Slarb PHYSICIAN ASSISTANT [facility] Work Phone: 04-19-2016 14:13-0400 Body Temperature 97 [degF] Citlali Slarb PHYSICIAN ASSISTANT [facility] Work Phone: 04-19-2016 14:13-0400 Body weight 78.98 kg Citlali Slarb PHYSICIAN ASSISTANT [facility] Work Phone: 04-19-2016 14:13-0400 BP Diastolic 82 mm[Hg] Citlali Slarb PHYSICIAN ASSISTANT [facility] Work Phone: Comment on above: Patient Position: Sitting; Cuff Location : Left Arm; Cuff Size: Standard 04-19-2016 14:13-0400 BP Systolic 130 mm[Hg] Citlali Slarb PHYSICIAN ASSISTANT [facility] Work Phone: Comment on above: Patient Position: Sitting; Cuff Location : Left Arm; Cuff Size: Standard 04-19-2016 14:13-0400 BSA (Body Surface Area) 1.79 m2 Citlali Slarb PHYSICIAN ASSISTANT [facility] Work Phone: 04-19-2016 14:13-0400 Height 156.21 cm Citlali Slarb PHYSICIAN ASSISTANT [facility] Work Phone: 04-19-2016 14:13-0400 Pulse (Heart Rate) 86 /min Citlali Slarb PHYSICIAN ASSISTANT [facility] Work Phone: Comment on above: Pattern: Regular 04-19-2016 14:13-0400 Pulse Oximetry 98 % Belem Hagen [facility] Work Phone: Comment on above: Room air 04-19-2016 14:13-0400 Respiratory Rate 16 /min Citlali Gonzalez JL [facility] Work Phone: Comment on above: Pattern: Unlabored 04-19-2016 14:13-0400 SaO2% (BldA) [Mass fraction] 98 % Citlali Gonzalez JL [facility]; [facility] [...] 07:51-0400 Pulse (Heart Rate) 106 /min Halley Bates RN [facility] Work Phone: Comment on above: Pattern: Regular 03-14-2016 07:51-0400 Pulse Oximetry 97 % Belem Hagen [facility] Work Phone: Comment on above: Room air 03-14-2016 07:51-0400 Respiratory Rate 20 /min Halley Bates RN [facility] Work Phone: Comment on above: Pattern: Unlabored 03-14-2016 07:51-0400 SaO2% (BldA) [Mass fraction] 97 % Halley Bates RN [facility]; [facility] Work Phone: Comment on above: Room air 03-14-2016 07:51-0400 Weight 79.38 kg Belem Hagen [facility] Medicine Work Phone: 03-11-2016 09:36-0400 BMI (Body Mass Index) 32.53 kg/m2 Fiorella Whelan [facility] Work Phone: 03-11-2016 09:36-0400 Body Temperature 96.8 [degF] Fiorella Whelan [facility] Work Phone: Comment on above: Method: Oral 03-11-2016 09:36-0400 Body weight 79.38 kg Fiorella Whelan [facility] Work Phone: 03-11-2016 09:36-0400 BP Diastolic 80 mm[Hg] Fiorella Whelan [facility] Work Phone: Comment on above: Patient Position: Sitting; Cuff Location : Left Arm; Cuff Size: Standard 03-11-2016 09:36-0400 BP Systolic 130 mm[Hg] Fiorella Whelan [facility] Work Phone: Comment on above: Patient Position: Sitting; Cuff Location : Left Arm; Cuff Size: Standard 03-11-2016 09:36-0400 BSA (Body Surface Area) 1.8 m2 Fiorella Whelan [facility] Work Phone: 03-11-2016 09:36-0400 Height 156.21 cm Fiorella Whelan [facility] Work Phone: 03-11-2016 09:36-0400 Pulse (Heart Rate) 81 /min Fiorella Whelan SENIOR BUSINESS ANALYST [facility] Work Phone: Comment on above: Pattern: Regular 03-11-2016 09:36-0400 Respiratory Rate 16 /min Fiorella Whelan [facility] Work Phone: Comment on above: Pattern: Unlabored 03-11-2016 09:36-0400 Weight 79.38 kg Belem Hagen [facility] Work Phone: 11-03-2015 10:01-0500 BMI (Body Mass Index) 32.16 kg/m2 Citlali Slarb PHYSICIAN ASSISTANT [facility] Work Phone: 11-03-2015 10:01-0500 Body Temperature 97.1 [degF] Citlali Slarb PHYSICIAN ASSISTANT [facility] Work Phone: 11-03-2015 10:01-0500 Body weight 78.47 kg Citlali Slarb PHYSICIAN ASSISTANT [facility] Work Phone: 11-03-2015 10:01-0500 BP Diastolic 82 mm[Hg] Citlali Slarb PHYSICIAN ASSISTANT [facility] Work Phone: Comment on above: Patient Position: Sitting; Cuff Location : Left Arm; Cuff Size: Standard 11-03-2015 10:01-0500 BP Systolic 134 mm[Hg] Citlali Slarb PHYSICIAN ASSISTANT [facility] Work Phone: Comment on above: Patient Position: Sitting; Cuff Location : Left Arm; Cuff Size: Standard 11-03-2015 10:01-0500 BSA (Body Surface Area) 1.79 m2 Citlali Slarb PHYSICIAN ASSISTANT [facility] Work Phone: 11-03-2015 10:01-0500 Height 156.21 cm Citlali Slarb PHYSICIAN ASSISTANT [facility] Work Phone: 11-03-2015 10:01-0500 Pulse (Heart Rate) 80 /min Citlali Slarb PHYSICIAN ASSISTANT [facility] Work Phone: Comment on above: Pattern: Regular 11-03-2015 10:01-0500 Pulse Oximetry 98 % Belem Hagen [facility] Work Phone: Comment on above: Room air 11-03-2015 10:01-0500 Respiratory Rate 18 /min Citlali Gonzalez JL [facility] Work Phone: Comment on above: Pattern: Unlabored 11-03-2015 10:01-0500 SaO2% (BldA) [Mass fraction] 98 % Citlali Gonzalez LPN [facility]; [facility] Work Phone: Comment on above: Room air 11-03-2015 10:01-0500 Weight 78.47 kg Belem Hagen [facility] Work Phone: 10-09-2015 09:57-0500 BMI (Body Mass Index) 32.16 kg/m2 Monet Holman [facility] Work Phone: 10-09-2015 09:57-0500 Body Temperature 97.6 [degF] Monet Holman [facility] Work Phone: Comment on above: Method: Temporal 10-09-2015 09:57-0500 Body weight 78.47 kg Monet Holman [facility] Work Phone: 10-09-2015 09:57-0500 BP Diastolic 82 mm[Hg] Monet Holman [facility] Work Phone: Comment on above: Patient Position: Sitting; Cuff Location : Left Arm; Cuff Size: Large 10-09-2015 09:57-0500 BP Systolic 114 mm[Hg] Monet Holman [facility] Work Phone: Comment on above: Patient Position: Sitting; Cuff Location : Left Arm; Cuff Size: Large 10-09-2015 09:57-0500 BSA (Body Surface Area) 1.79 m2 Monet Holman [facility] Work Phone: 10-09-2015 09:57-0500 Height 156.21 cm Monet Holman [facility] Work Phone: 10-09-2015 09:57-0500 Pulse (Heart Rate) 76 /min [facility] Work Phone: Comment on above: Pattern: Regular 10-09-2015 09:57-0500 Pulse Oximetry 99 % Belem Hagen [facility] Work Phone: Comment on above: Room air 10-09-2015 09:57-0500 Respiratory Rate 16 /min Monet Holman [facility] Work Phone: Comment on above: Pattern: Unlabored 10-09-2015 09:57-0500 SaO2% (BldA) [Mass fraction] 99 % Monet Cameronalbertina [facility]; [facility] Work Phone: Comment on above: Room air 10-09-2015 09:57-0500 Weight 78.47 kg Belem Hagen [facility] Work Phone: 06-21-2015 09:46-0400 BMI (Body Mass Index) 32.16 kg/m2 Monet Santizoshon [facility] Work Phone: 06-21-2015 09:46-0400 Body Temperature 97.8 [degF] Monet Santizoshon [facility] Work Phone: Comment on above: Method: Temporal 06-21-2015 09:46-0400 Body weight 78.47 kg Monet Barnesalbertina [facility] Work Phone: 06-21-2015 09:46-0400 BP Diastolic 88 mm[Hg] Monet River [facility] Work Phone: Comment on above: Patient Position: Sitting; Cuff Location : Left Arm; Cuff Size: Large 06-21-2015 09:46-0400 BP Systolic 136 mm[Hg] Monet Flshon [facility] Work Phone: Comment on above: Patient Position: Sitting; Cuff Location : Left Arm; Cuff Size: Large 06-21-2015 09:46-0400 BSA (Body Surface Area) 1.79 m2 Monet Santizoshon [facility] Work Phone: 06-21-2015 09:46-0400 Height 156.21 cm Monet Holman [facility] Work Phone: 06-21-2015 09:46-0400 Pulse (Heart Rate) 72 /min Monet Holman [facility] Work Phone: Comment on above: Pattern: Regular 06-21-2015 09:46-0400 Respiratory Rate 16 /min Monet Holman [facility] Work Phone: Comment on above: Pattern: Unlabored 06-21-2015 09:46-0400 Weight 78.47 kg Belem Hagen [facility] Work Phone: 05-31-2015 09:23-0400 BMI (Body Mass Index) 32.53 kg/m2 [facility] Work Phone: 05-31-2015 09:23-0400 Body weight 79.38 kg [facility] Work Phone: 05-31-2015 09:23-0400 BP Diastolic 76 mm[Hg] [facility] Work Phone: Comment on above: Patient Position: Sitting; Cuff Location : Left Arm; Cuff Size: Standard 05-31-2015 09:23-0400 BP Systolic 132 mm[Hg] [facility] Work Phone: Comment on above: Patient Position: Sitting; Cuff Location : Left Arm; Cuff Size: Standard 05-31-2015 09:23-0400 BSA (Body Surface Area) 1.8 m2 [facility] Work Phone: 05-31-2015 09:23-0400 Height 156.21 cm [facility] Work Phone: 05-31-2015 09:23-0400 Pulse (Heart Rate) 74 /min [facility] Work Phone: Comment on above: Pattern: Regular 05-31-2015 09:23-0400 Pulse Oximetry 98 % Belem Hagen [facility] Work Phone: Comment on above: Room air 05-31-2015 09:23-0400 Respiratory Rate 18 /min [facility] Work Phone: Comment on above: Pattern: Unlabored 05-31-2015 09:23-0400 SaO2% (BldA) [Mass fraction] 98 % Bonnie Gray [facility]; [facility] Work Phone: Comment on above: Room air 05-31-2015 09:23-0400 Weight 79.38 kg Belem Hagen [facility] Work Phone: 02-15-2015 14:05-0400 BMI (Body Mass [...] 14:05-0400 Respiratory Rate 16 /min Fiorella Whelan CHARU [facility] Work Phone: Comment on above: Pattern: Unlabored recheck BP 136/82 02-15-2015 14:05-0400 Weight 82.56 kg Belem Hagen [facility] Work Phone: Comment on above: recheck BP 136/82 10-19-2014 08:49-0500 BMI (Body Mass Index) 34.97 kg/m2 Agnieszka Rae RN [facility] Work Phone: 10-19-2014 08:49-0500 Body Temperature 98.4 [degF] Agnieszka Rae RN [facility] Work Phone: Comment on above: Method: Temporal 10-19-2014 08:49-0500 Body weight 85.33 kg Agnieszka Rae RN [facility] Work Phone: 10-19-2014 08:49-0500 BP Diastolic 74 mm[Hg] Agnieszka Rae RN [facility] [...] 10-19-2014 08:49-0500 Pulse Oximetry 98 % Belem Hagen [facility] [...] 10-19-2014 08:49-0500 Weight 85.33 kg Belem Hagen [facility] Work Phone: 07-20-2014 08:29-0400 BMI (Body Mass Index) 34.97 kg/m2 Fiorella Whelan [facility] Work Phone: 07-20-2014 08:29-0400 Body Temperature 98.7 [degF] Fiorella Whelan [facility] Work Phone: Comment on above: Method: Oral 07-20-2014 08:29-0400 Body weight 85.33 kg Fiorella Whelan [facility] Work Phone: 07-20-2014 08:29-0400 [...] (Body Surface Area) 1.85 m2 Fiorella Whelan [facility] Work Phone: 07-20-2014 08:29-0400 Height 156.21 cm Fiorella Whelan [facility] Work Phone: 07-20-2014 08:29-0400 Pulse (Heart Rate) 77 /min Fiorella Whelan [facility] Work Phone: Comment on above: Pattern: Regular 07-20-2014 08:29-0400 Respiratory Rate 16 /min Fiorella Whelan CHARU [facility] Work Phone: Comment on above: Pattern: Unlabored 07-20-2014 08:29-0400 Weight 85.33 kg Belem Hagen [facility] Work Phone: 05-04-2014 08:19-0400 BMI (Body Mass Index) 35.5 kg/m2 Agnieszka Rae RN [facility] Work Phone: 05-04-2014 08:19-0400 Body weight 86.64 kg Agnieszka Rae RN [facility] Work Phone: 05-04-2014 08:19-0400 BSA (Body Surface Area) 1.86 m2 Agnieszka Rae RN [facility] Work Phone: 05-04-2014 08:19-0400 Height 156.21 cm Agnieszka Rae RN [facility] Work Phone: 05-04-2014 08:19-0400 Weight 86.64 kg Belem Hagen [facility] Work Phone: 03-16-2014 08:19-0400 BMI (Body Mass Index) 35.5 kg/m2 Monet Holman [facility] Work Phone: 03-16-2014 08:19-0400 Body Temperature 97.7 [degF] Monet Holman [facility] Work Phone: 03-16-2014 08:19-0400 Body weight 86.64 kg Monet Holman [facility] Work Phone: 03-16-2014 08:19-0400 BP Diastolic 80 mm[Hg] Monet Holman [facility] Work Phone: Comment on above: Patient Position: Sitting; Cuff Location : Left Arm; Cuff Size: Large 03-16-2014 08:19-0400 BP Systolic 156 mm[Hg] Monet Holman [facility] Work Phone: Comment on above: Patient Position: Sitting; Cuff Location : Left Arm; Cuff Size: Large 03-16-2014 08:19-0400 BSA (Body Surface Area) 1.86 m2 Monet Holman [facility] Work Phone: 03-16-2014 08:19-0400 Height 156.21 cm Monet Santizoshon [facility] Work Phone: 03-16-2014 08:19-0400 Pulse (Heart Rate) 76 /min Monet Santizoshon [facility] Work Phone: Comment on above: Pattern: Regular 03-16-2014 08:19-0400 Respiratory Rate 16 /min Monet Santizoshon [facility] Work Phone: Comment on above: Pattern: Unlabored 03-16-2014 08:19-0400 Weight 86.64 kg Belem Hagen [facility] Work Phone: 12-08-2013 08:44-0500 BMI (Body Mass Index) 35.13 kg/m2 Mariely Danny PARIKH [facility] Work Phone: 12-08-2013 08:44-0500 Body Temperature 97.4 [degF] Mariely Danny PARIKH [facility] Work Phone: Comment on above: Method: Oral 12-08-2013 08:44-0500 Body weight 85.73 kg Mariely Danny PARIKH [facility] Work Phone: 12-08-2013 08:44-0500 BP Diastolic 80 mm[Hg] Mariely Danny PARIKH [facility] Work Phone: Comment on above: Patient Position: Sitting; Cuff Location : Left Arm; Cuff Size: Standard 12-08-2013 08:44-0500 BP Systolic 124 mm[Hg] Mariely Danny PARIKH [facility] Work Phone: Comment on above: Patient Position: Sitting; Cuff Location : Left Arm; Cuff Size: Standard 12-08-2013 08:44-0500 BSA (Body Surface Area) 1.86 m2 Mariely Danny PARIKH [facility] Work Phone: 12-08-2013 08:44-0500 Height 156.21 cm Mariely Delgado JL [facility] Work Phone: 12-08-2013 08:44-0500 Pulse (Heart Rate) 86 /min Mariely Delgado PHYSICIAN ASSISTANT [facility] Work Phone: Comment on above: Pattern: Regular 12-08-2013 08:44-0500 Pulse Oximetry 98 % Belem Hagen [facility] Work Phone: Comment on above: Room air 12-08-2013 08:44-0500 Respiratory Rate 16 /min Mariely Delgado JL [facility] Work Phone: 12-08-2013 08:44-0500 SaO2% (BldA) [Mass fraction] 98 % Mariely Danny PARIKH [facility]; [facility] Work Phone: Comment on above: Room air 12-08-2013 08:44-0500 Weight 85.73 kg Belem Hagne [facility] Work Phone: 11-09-2013 08:14-0500 BMI (Body Mass Index) 35.13 kg/m2 Monet River [facility] Work Phone: 11-09-2013 08:14-0500 Body Temperature 98.3 [degF] Monet Holman [facility] Work Phone: 11-09-2013 08:14-0500 Body weight 85.73 kg Monet Holman [facility] Work Phone: 11-09-2013 08:14-0500 BP Diastolic 90 mm[Hg] Monet Holman [facility] Work Phone: Comment on above: Patient Position: Sitting; Cuff Location : Left Arm; Cuff Size: Large 11-09-2013 08:14-0500 BP Systolic 128 mm[Hg] Monet Holman [facility] Work Phone: Comment on above: Patient Position: Sitting; Cuff Location : Left Arm; Cuff Size: Large 11-09-2013 08:14-0500 BSA (Body Surface Area) 1.86 m2 Monet Holman [facility] Work Phone: 11-09-2013 08:14-0500 Height 156.21 cm Monet Holman [facility] Work Phone: 11-09-2013 08:14-0500 Pulse (Heart Rate) 82 /min Monet Holman [facility] Work Phone: Comment on above: Pattern: Regular 11-09-2013 08:14-0500 Respiratory Rate 16 /min Monet Holman [facility] Work Phone: Comment on above: Pattern: Unlabored 11-09-2013 08:14-0500 Weight 85.73 kg Belem Hagen [facility] Work Phone: 08-17-2013 09:20-0400 BMI (Body Mass Index) 35.32 kg/m2 Fiorella Whelan [facility] Work Phone: 08-17-2013 09:20-0400 Body weight 86.18 kg Fiorella Whelan [facility] Work Phone: 08-17-2013 09:20-0400 BP Diastolic 78 mm[Hg] Fiorella Whelan [facility] Work Phone: Comment on above: Patient Position: Sitting; Cuff Location : Left Arm; Cuff Size: Standard 08-17-2013 09:20-0400 BP Systolic 124 mm[Hg] Fiorella Whelan [facility] Work Phone: Comment on above: Patient Position: Sitting; Cuff Location : Left Arm; Cuff Size: Standard 08-17-2013 09:20-0400 BSA (Body Surface Area) 1.86 m2 Fiorella Whelan [facility] Work Phone: 08-17-2013 09:20-0400 Height 156.21 cm Fiorella Whelan [facility] Work Phone: 08-17-2013 09:20-0400 Pulse (Heart Rate) 78 /min Fiorella Whelan [facility] Work Phone: Comment on above: Pattern: Regular 08-17-2013 09:20-0400 Respiratory Rate 18 /min Fiorella Whelan [facility] Work Phone: Comment on above: Pattern: Unlabored 08-17-2013 09:20-0400 Weight 86.18 kg Belem Hagen [facility] Work Phone: 08-06-2013 12:57-0400 BP Diastolic 88 mm[Hg] Idalia A Fast DO Work Phone: [facility] Work Phone: Comment on above: Patient Position: Sitting 08-06-2013 12:57-0400 BP Systolic 140 mm[Hg] Idalia A Fast DO Work Phone: [facility] Work Phone: Comment on above: Patient Position: Sitting 08-06-2013 12:13-0400 BMI (Body Mass Index) 35.32 kg/m2 Monet Barnesalbertina [facility] Work Phone: 08-06-2013 12:13-0400 Body Temperature 96.7 [degF] Monet Holman [facility] Work Phone: 08-06-2013 12:13-0400 Body weight 86.18 kg Monet Holman [facility] Work Phone: 08-06-2013 12:13-0400 BP Diastolic 94 mm[Hg] Monet Santizoshon [facility] Work Phone: Comment on above: Patient Position: Sitting; Cuff Location : Left Arm; Cuff Size: Large 08-06-2013 12:13-0400 BP Systolic 162 mm[Hg] Monet Santizoshon [facility] Work Phone: Comment on above: Patient Position: Sitting; Cuff Location : Left Arm; Cuff Size: Large 08-06-2013 12:13-0400 BSA (Body Surface Area) 1.86 m2 Monet Santizoshon [facility] Work Phone: 08-06-2013 12:13-0400 Height 156.21 cm Monet Holman [facility] Work Phone: 08-06-2013 12:13-0400 Pulse (Heart Rate) 78 /min Monet Holman [facility] Work Phone: Comment on above: Pattern: Regular 08-06-2013 12:13-0400 Respiratory Rate 18 /min Monet Holman [facility] Work Phone: Comment on above: Pattern: Unlabored 08-06-2013 12:13-0400 Weight 86.18 kg Belem Hagen [facility] Work Phone: 06-30-2013 12:03-0400 BMI (Body Mass Index) 35.12 kg/m2 Monet Holman [facility] Work Phone: 06-30-2013 12:03-0400 Body Temperature 98.1 [degF] Monet Holman [facility] Work Phone: 06-30-2013 12:03-0400 Body weight 87.09 kg Monet Holman [facility] Work Phone: 06-30-2013 12:03-0400 BP Diastolic 84 mm[Hg] Monet Holman [facility] Work Phone: Comment on above: Patient Position: Sitting; Cuff Location : Left Arm; Cuff Size: Large 06-30-2013 12:03-0400 BP Systolic 146 mm[Hg] Monet Holman [facility] Work Phone: Comment on above: Patient Position: Sitting; Cuff Location : Left Arm; Cuff Size: Large 06-30-2013 12:03-0400 BSA (Body Surface Area) 1.88 m2 Monet Holman [facility] Work Phone: 06-30-2013 12:03-0400 Height 157.48 cm Monet Holman [facility] Work Phone: 06-30-2013 12:03-0400 Pulse (Heart Rate) 78 /min Monet Holman [facility] Work Phone: Comment on above: Pattern: Regular 06-30-2013 12:03-0400 Respiratory Rate 16 /min Monet Santizoshon [facility] Work Phone: Comment on above: Pattern: Unlabored 06-30-2013 12:03-0400 Weight 87.09 kg Belem Hagen [facility] Work Phone: 02-18-2012 11:05-0400 BMI (Body Mass Index) 34.67 kg/m2 Mariely Delgado JL [facility] Work Phone: 02-18-2012 11:05-0400 Body Temperature 97.7 [degF] Mariely Delgado JL [facility] Work Phone: Comment on above: Method: Oral 02-18-2012 11:05-0400 Body weight 85.99 kg Mariely Delgado JL [facility] Work Phone: 02-18-2012 11:05-0400 BP Diastolic 72 mm[Hg] Mariely Delgado JL [facility] Work Phone: Comment on above: Patient Position: Sitting; Cuff Location : Left Arm; Cuff Size: Standard 02-18-2012 11:05-0400 BP Systolic 122 mm[Hg] Mariely Delgado JL [facility] Work Phone: Comment on above: Patient Position: Sitting; Cuff Location : Left Arm; Cuff Size: Standard 02-18-2012 11:05-0400 BSA (Body Surface Area) 1.87 m2 Mariely Delgado JL [facility] Work Phone: 02-18-2012 11:05-0400 Height 157.48 cm Mariely Betancourtgreg PARIKH [facility] Work Phone: 02-18-2012 11:05-0400 Pulse (Heart Rate) 64 /min Mariely Delgado JL [facility] Work Phone: Comment on above: Pattern: Regular 02-18-2012 11:05-0400 Respiratory Rate 18 /min Mariely Betancourtgreg PARIKH [facility] Work Phone: [...] Date Encounter Type Care Provider Facility Start: 10-10-2025 [facility] Facility :[facility] Start: 10-07-2025 End: 10-07-2025 Emergency department patient visit Rayshawn Chaudhary Facility:[facility] Start: 09-27-2025 End: 09-29-[address] VERONICA CARLISLE MD Facility:[facility] Start: 09-27-2025 End: 09-29-[address] VERONICA CARLISLE MD [facility] Start: 09-26-2025 End: 09-26-2025 ambulatory Rayshawn Maurice Facility:[facility] Start: 08-29-2025 End: 08-29-[address] VERONICA CARLISLE MD Facility:[facility] Start: 08-29-2025 End: 08-29-[address] VERONICA CARLISLE MD [facility] Start: 08-29-2025 End: 08-29-[address] VERONICA CARLISLE MD [facility] Start: 08-29-2025 End: 08-29-[address] VERONICA CARLISLE MD Facility:[facility] Start: 08-11-2025 End: 08-11-2025 ambulatory Rayshawn Chaudhary [employer] Work Phone: -Laboratory Start: 08-11-2025 End: 08-11-2025 Patient encounter procedure Rayshawn Maurice [employer] VEHICLE INSPECTOR-C -Laboratory Work Phone: Start: 08-11-2025 End: 08-11-2025 ambulatory Rayshawnyuni Chaudhary Facility:[facility] Start: 07-26-2025 End: 07-26-[address] Dia Villagran MD -[facility] Work Phone: Start: 07-26-2025 End: 07-26-2025 ambulatory Rayshawn Chaudhary [employer]ANSIT VEHICLE INSPECTOR-C Work Phone: -[facility] Start: 07-21-[address] Eber Stanley MD -[facility] Start: 07-21-2025 End: 07-21-2025 Patient encounter procedure Francesmargarita Sevilla TRANSIT VEHICLE INSPECTOR-C -[facility] Work Phone: Start: 07-21-2025 End: 07-21-2025 ambulatory Rayshawn Chaudhary [employer]ANS[employer] VEHICLE INSPECTOR-C Work Phone: -[facility] Start: 07-05-2025 End: 07-05-2025 Patient encounter procedure Rayna Bazzi TRANSIT VEHICLE INSPECTOR-C -[facility] Work Phone: Start: 07-05-2025 End: 07-05-2025 ambulatory Rayshawn Chaudhary [employer]ANSIT VEHICLE INSPECTOR-C Work Phone: -[facility] Start: 05-31-2025 Non-patient / Non-visit Dr. Dia biggs MD -[facility] Work Phone: Start: 05-26-2025 End: 05-26-[address] Mehul Borja DO -[facility] Work Phone: Start: 05-26-2025 End: 05-26-2025 ambulatory Rayshawn Chaudhary [employer]ANS[employer] VEHICLE INSPECTOR-C Work Phone: [facility] Work Phone: Start: 05-23-2025 Non-patient / Non-visit Dr. Inga GARZA -[facility] Start: 05-23-2025 End: 05-23-2025 ambulatory Rayshawn Chaudhary [employer] VEHICLE INSPECTOR-C Work Phone: [facility] Work Phone: Start: 05-23-2025 End: 05-23-2025 Patient encounter procedure Rayshawn Chaudhary TRANSIT VEHICLE INSPECTOR-C -[facility] Work Phone: Start: 05-23-2025 End: 05-23-2025 ambulatory Rayshawn Chaudhary Facility:[facility] Start: 04-29-2025 End: 04-29-2025 ambulatory Rayshawn Chaudhary [employer]ANSIT VEHICLE INSPECTOR-C Work Phone: [facility] Work Phone: Start: 04-29-2025 End: 04-29-2025 Patient encounter procedure Rayshawn Chaudhary [employer]ANSIT VEHICLE INSPECTOR-C -Laboratory Work Phone: Start: 04-29-2025 End: 04-29-2025 ambulatory Rayshawn Maurice Facility:[facility] Start: 04-26-2025 End: 04-26-2025 ambulatory Rayshawn Chaudhary [employer] VE[employer]ICLE INSPECTOR-C Work Phone: [facility] Work Phone: Start: 04-26-2025 End: 04-26-2025 Patient encounter procedure Rayshawn Chaudhary [employer]ANSIT VEHICLE INSPECTOR-C -Laboratory Work Phone: Start: 04-26-2025 End: 04-26-2025 ambulatory Rayshawn Chaudhary Facility:[facility] Start: 04-23-2025 End: 04-23-2025 Emergency department patient visit Dr. Shaun Noriega DO -Emergency Department Work Phone: Start: 04-21-2025 End: 04-21-2025 Patient encounter procedure Frances Sevilla TRANSIT VEHICLE INSPECTOR-C -[facility] Work Phone: Start: 04-21-2025 End: 04-21-2025 ambulatory Rayshawn Maurice Facility:[facility] [place] Start: 04-20-[address] Eber Stanley MD -Radiation Oncology Start: 04-20-2025 End: 04-20-[address] Mehul Borja DO [facility] Work Phone: Start: 04-20-2025 Non-patient / Non-visit Dr. Mehul davis DO [facility] Work Phone: Start: 04-20-2025 End: 04-20-2025 ambulatory Rayshawn Maurice TRANSIT VEHICLE INSPECTOR-C Work Phone: [facility] Work Phone: Start: 04-11-2025 ambulatory Rayshawn Maurice Facility :[facility] Start: 04-11-2025 Non-patient / Non-visit Dr. Mehul davis DO [facility] Start: 04-11-2025 End: 04-11-2025 Emergency department patient visit Rayshawn Chaudhary TRANSIT VEHICLE INSPECTOR-C Work Phone: -Emergency Department Work Phone: Start: 04-08-2025 ambulatory Rayshawn Chaudhary Facility :[facility] Start: 04-08-2025 Non-patient / Non-visit Dr. Mehul davis DO [facility] Start: 04-08-[address] Eber Stanley MD -Radiation Oncology Start: 04-07-2025 ambulatory Rayshawn Chaudhary Facility :[facility] Start: 04-07-2025 Non-patient / [facility] Start: 04-07-2025 End: 04-07-2025 Emergency department patient visit Rayshawn Chaudhary TRANSIT VEHICLE INSPECTOR-C Work Phone: -Emergency Department Work Phone: Start: 04-05-2025 ambulatory Rayshawn Chaudhary Facility :[facility] Start: 04-05-2025 Non-patient / Non-visit Dr. Mehul davis DO [facility] Start: 04-04-2025 End: 04-04-2025 Emergency department patient visit Rayshawn Chaudhary TRANSIT VEHICLE INSPECTOR-C Work Phone: -Emergency Department Work Phone: Start: 04-04-2025 End: 04-04-2025 Patient encounter procedure Rayna Bazzi TRANSIT VEHICLE INSPECTOR-C -[facility] Work Phone: Start: 04-04-2025 End: 04-04-2025 ambulatory Rayshawn Chaudhary Facility:[facility] Start: 03-30-2025 ambulatory Rayshawn Maurice Facility :[facility] Start: 03-30-2025 Non-patient / Non-visit Dr. Mehul davis DO [facility] [place] [facility] [place] Start: 03-30-[address] Eber Stanley MD -Radiation Oncology Start: 03-25-2025 End: 03-25-[address] Mehul Borja DO [facility] Work Phone: Start: 03-25-2025 End: 03-25-2025 ambulatory Rayshawnyuni Chaudhary Facility:[facility] Start: 03-16-2025 End: 03-16-[address] Ximena Stanley MD -[facility] Work Phone: Start: 03-16-2025 End: 03-16-2025 ambulatory Rayshawn Maurice Facility:[facility] Start: 03-15-2025 Non-patient / Non-visit Demetra Harris [facility] Work Phone: Start: 03-15-2025 ambulatory Rayshawnyuni Chaudhary Facility :[facility] Start: 03-09-2025 End: 03-09-[address] Branden Lance MD -[facility] Work Phone: Start: 03-09-2025 End: 03-09-2025 ambulatory Rayshawnyuni Chaudhary Facility:[facility] Start: 02-22-2025 ambulatory Rayshawnyuni Chaudhary Facility :[facility] Start: 02-22-2025 Non-patient / Non-visit Dr. Rosa Lance MD -[facility] Start: 02-22-2025 End: 02-22-2025 Admission to same day surgery center Dr. Branden Lance MD -[facility] Start: 02-22-2025 End: 02-22-2025 ambulatory Rayshawn Chaudhary TRANSIT VEHICLE INSPECTOR-C Work Phone: [facility] Work Phone: Start: 02-18-2025 End: 02-18-2025 ambulatory Rayshawn Chaudhary Facility:[facility] Start: 02-18-2025 End: 02-18-2025 Non-patient / Non-visit Dr. Luis Carlos Zuluaga MD -[facility] Work Phone: Start: 02-11-2025 End: 02-11-[address] Branden Lance MD -[facility] Work Phone: Start: 02-11-2025 End: 02-11-2025 ambulatory Rayshawnyuni Chaudhary Facility:[facility] Start: 01-28-2025 Non-patient / Non-visit Dr. Rosa Lance MD -[facility] Start: 01-28-2025 End: 01-28-2025 Admission to same day surgery center Dr. Branden Lance MD -[facility] Start: 01-28-2025 End: 01-28-2025 ambulatory Rayshawn Chaudhary Facility:[facility] Start: 01-18-2025 End: 01-18-[address] Branden Lance MD -[facility] Work Phone: Start: 01-18-2025 End: 01-18-2025 ambulatory Rayshawn Chaudhary Facility:[facility] Start: 01-12-2025 End: 01-12-2025 Patient encounter procedure Rayna Jluis TRANSIT VEHICLE INSPECTOR-C -[facility] Work Phone: Start: 01-12-2025 End: 01-12-2025 ambulatory Rayshawn Chaudhary Facility:[facility] Start: 01-10-2025 End: 01-10-2025 Patient encounter procedure Rayna Polk TRANSIT VEHICLE INSPECTOR-C -[facility]patient [facility] Work Phone: Start: 01-10-2025 End: 01-10-2025 ambulatory Rayshawn Guzmanam Facility:[facility] Start: 01-03-2025 End: 01-03-2025 Patient encounter procedure Raynamary Lopezs TRANSIT VEHICLE INSPECTOR-C -[facility] Work Phone: Start: 01-03-2025 End: 01-03-2025 ambulatory Rayshawn Chaudhary Facility:[facility] Start: 10-18-2024 End: 10-18-2024 ambulatory Rayshawn Chaudhary Facility:[facility] Start: 01-29-2024 End: 01-29-2024 ambulatory TRANSIT VEHICLE INSPECTOR-C Rayshawn Guzmanam Work Phone: [facility] Work Phone: Start: 01-29-2024 End: 01-29-2024 Patient encounter procedure TRANSIT VEHICLE INSPECTOR-C Rayshawn Guzmanam Work Phone: [facility]-Outpatient Bone Densitometry Work Phone: Start: 01-27-2024 End: 01-27-2024 Patient encounter procedure TRANSIT VEHICLE INSPECTOR-C Rayshawn Maurice Work Phone: [facility] Emergency Department Work Phone: Start: 10-20-2023 End: 10-20-2023 Patient encounter procedure TRANSIT VEHICLE INSPECTOR-C Rayshawn Chaudhary Work Phone: [facility] Emergency Department Work Phone: Start: 10-10-2023 End: 10-10-2023 Patient encounter procedure TRANSIT VEHICLE INSPECTOR-C Rayshawn Chaudhary Work Phone: [facility]-Ultrasound, [facility] Work Phone: Start: 10-03-2023 End: 10-03-2023 Office outpatient visit 15 minutes Rayshawn Chaudhary ELECTROMECHANICAL EQUIPMENT TESTER Work Phone: [facility] Start: 07-21-2023 End: 07-21-2023 Patient encounter procedure TRANSIT VEHICLE INSPECTOR-C Rayshawn Chaudhary Work Phone: [facility] Emergency Department Work Phone: Start: 07-16-2023 End: 07-16-2023 ambulatory TRANSIT VEHICLE INSPECTOR-C Rayshawn Chaudhary Work Phone: [facility] Work Phone: Start: 07-16-2023 End: 07-16-2023 Patient encounter procedure TRANSIT VEHICLE INSPECTOR-C Rayshawn Chaudhary Work Phone: [facility]-Laboratory Work Phone: Start: 05-26-2023 End: 05-26-2023 Rayshawn Cahudhary ELECTROMECHANICAL EQUIPMENT TESTER Work Phone: [facility] Start: 05-23-2023 End: 05-23-2023 Rayshawn Chaudhary ELECTROMECHANICAL EQUIPMENT TESTER Work Phone: [facility] Start: 05-21-2023 End: 05-21-2023 Emergency department patient visit TRANSIT VEHICLE INSPECTOR-C Rayshawn Chaudhary Work Phone: [facility]-Emergency Department Start: 05-15-2023 End: 05-15-2023 ambulatory TRANSIT VEHICLE INSPECTOR-C Rayshawn Chaudhary Work Phone: [facility] Work Phone: Start: 05-15-2023 End: 05-15-2023 Patient encounter procedure TRANSIT VEHICLE INSPECTOR-Melissa Chaudhary Work Phone: [facility]-Cat Scan, [facility] Start: 05-15-2023 End: 05-15-2023 Office outpatient visit 15 minutes Rayshawn Chaudhary CNP Work Phone: [facility] Start: 04-24-2023 End: 04-24-2023 Patient encounter procedure TRANSIT VEHICLE INSPECTOR-C Rayshawn Chaudhary Work Phone: [facility] Start: 03-17-2023 End: 03-17-2023 ambulatory TRANSIT VEHICLE INSPECTOR-Melissa Chaudhary Work Phone: [facility] Work Phone: Start: 03-17-2023 End: 03-17-2023 Patient encounter procedure TRANSIT VEHICLE INSPECTOR-Melissa Chaudhary Work Phone: [facility]-Laboratory, Specimen Start: 03-17-2023 End: 03-17-2023 Patient encounter procedure TRANSIT VEHICLE INSPECTOR-Melissa Chaudhary Work Phone: [facility] Radiology Start: 03-17-2023 End: 03-17-2023 Office outpatient visit 15 minutes Rayshawn Chaudhary CNP Work Phone: [facility] Start: 03-17-2023 ambulatory Rayshawn Chaudhary CNP [facility] rehensive Internal Med Start: 03-13-2023 End: 03-13-2023 Emergency department patient visit Jamarcus Vizcarrazachary [facility] Emergency 12 Start: 03-10-2023 End: 03-10-2023 Emergency department patient visit TRANSIT VEHICLE INSPECTOR-Melissa Chaudhary Work Phone: [facility]-Emergency Department Start: 03-08-2023 End: 03-09-2023 Emergency department patient visit TRANSIT VEHICLE INSPECTOR-Melissa Chaudhary Work Phone: [facility]-Emergency Department Start: 01-23-2023 End: 01-23-2023 Patient encounter procedure TRANSIT VEHICLE INSPECTOR-Melissa Chaudhary Work Phone: [facility] Start: 12-24-2022 End: 12-24-2022 Office outpatient visit 15 minutes Rayshawn Maurice ELECTROMECHANICAL EQUIPMENT TESTER Work Phone: [facility] Start: 11-11-2022 End: 11-11-2022 Phone Encounter Rayshawn Maurice ELECTROMECHANICAL EQUIPMENT TESTER Work Phone: [facility] Start: 11-11-2022 End: 11-11-2022 Rayshawn Maurice ELECTROMECHANICAL EQUIPMENT TESTER Work Phone: [facility] Start: 11-07-2022 Review Rayshawn Chaudhary ELECTROMECHANICAL EQUIPMENT TESTER Work Phone: [facility] Start: 11-07-2022 End: 11-07-2022 Office outpatient visit 10 minutes Rayshawn Chaudhary ELECTROMECHANICAL EQUIPMENT TESTER Work Phone: [facility] Start: 10-31-2022 End: 10-31-2022 ambulatory TRANSIT VEHICLE INSPECTOR-C Belem Roemalia TRANSIT VEHICLE INSPECTOR Work Phone: [facility] Work Phone: Start: 10-31-2022 End: 10-31-2022 Patient encounter procedure TRANSIT VEHICLE INSPECTOR-C Belem Brownleea TRANSIT VEHICLE INSPECTOR Work Phone: [facility]-Laboratory Start: 10-08-2022 End: 10-08-2022 ambulatory TRANSIT VEHICLE INSPECTOR-C Belem Jyothiesa TRANSIT VEHICLE INSPECTOR Work Phone: [facility] Work Phone: Start: 10-08-2022 End: 10-08-2022 Patient encounter procedure TRANSIT VEHICLE INSPECTOR-C Belem Roeesa TRANSIT VEHICLE INSPECTOR Work Phone: [facility]-Laboratory Start: 09-24-2022 End: 09-24-2022 Office outpatient visit 15 minutes Rayshawn Maurice ELECTROMECHANICAL EQUIPMENT TESTER Work Phone: [facility] Start: 09-04-2022 End: 09-04-2022 Patient encounter procedure TRANSIT VEHICLE INSPECTOR-C Belem Brownleea TRANSIT VEHICLE INSPECTOR Work Phone: [facility] Start: 05-21-2022 End: 05-21-2022 Patient encounter procedure TRANSIT VEHICLE INSPECTOR-C Belem Hagen TRANSIT VEHICLE INSPECTOR Work Phone: [facility] Start: 05-16-2022 End: 05-16-2022 Patient encounter procedure TRANSIT VEHICLE INSPECTOR-C Belem Hagen TRANSIT VEHICLE INSPECTOR [facility] Start: 05-16-2022 End: 05-16-2022 Emergency department patient visit TRANSIT VEHICLE INSPECTOR-C Belem Hagen TRANSIT VEHICLE INSPECTOR Work Phone: [facility]-Emergency Department Start: 03-11-2022 End: 03-11-2022 Office outpatient visit 25 minutes Belem Hagen Work Phone: [facility] Start: 03-04-2022 End: 03-04-2022 Patient encounter procedure TRANSIT VEHICLE INSPECTOR-C Belem Hagen TRANSIT VEHICLE INSPECTOR [facility] Start: 02-28-2022 End: 02-28-2022 Emergency department patient visit TRANSIT VEHICLE INSPECTOR-C Belem Hagen TRANSIT VEHICLE INSPECTOR Work Phone: [facility]-Emergency Department Start: 02-26-2022 End: 02-26-2022 Patient encounter procedure TRANSIT VEHICLE INSPECTOR-C Belem Hagen TRANSIT VEHICLE INSPECTOR [facility] Start: 02-25-2022 End: 02-25-2022 Patient encounter procedure TRANSIT VEHICLE INSPECTOR-C Belem Hagen TRANSIT VEHICLE INSPECTOR Work Phone: [facility] Start: 01-27-2022 End: 01-27-2022 Patient encounter procedure Belem Hagen ELECTROMECHANICAL EQUIPMENT TESTER Work Phone: [facility] Start: 01-27-2022 End: 01-27-2022 Rayshawn Chaudhary ELECTROMECHANICAL EQUIPMENT TESTER Work Phone: [facility] Start: 01-26-2022 End: 01-26-2022 Patient encounter procedure TRANSIT VEHICLE INSPECTOR-C Belem Hagen TRANSIT VEHICLE INSPECTOR Work Phone: [facility]-Laboratory Start: 12-12-2021 End: 12-12-2021 Patient encounter procedure TRANSIT VEHICLE INSPECTOR-C Belem Hagen TRANSIT VEHICLE INSPECTOR Work Phone: [facility]-Laboratory, Phy Office 3rd Flr Start: 12-11-2021 End: 12-11-2021 Office outpatient visit 15 minutes Belem Roebessy ELECTROMECHANICAL EQUIPMENT TESTER Work Phone: [facility] Start: 12-03-2021 End: 12-03-2021 Patient encounter procedure TRANSIT VEHICLE INSPECTOR-C Belem Hagen TRANSIT VEHICLE INSPECTOR [facility] Start: 11-19-2021 End: 11-19-2021 Patient encounter procedure TRANSIT VEHICLE INSPECTOR-C Belem Hagen TRANSIT VEHICLE INSPECTOR Work Phone: [facility] Start: 09-26-2021 End: 09-26-2021 Office outpatient visit 25 minutes Belem Roemalimargarita ELECTROMECHANICAL EQUIPMENT TESTER Work Phone: [facility] Start: 06-08-2021 End: 06-08-2021 Office outpatient visit 25 minutes Belem Hagen ELECTROMECHANICAL EQUIPMENT TESTER Work Phone: [facility] Start: 02-19-2021 End: 02-19-2021 Office outpatient visit 25 minutes Belem Hagen [facility] Start: 01-30-2021 End: 01-30-2021 Office outpatient visit 10 minutes Belem Hagen [facility] Start: 01-03-2021 End: 01-03-2021 Office outpatient visit 10 minutes Belem Damon [facility] Start: 10-23-2020 Review Belem Holloway [facility] Start: 10-23-2020 End: 10-23-2020 Office outpatient visit 25 minutes Belem Hagen [facility] Start: 10-23-2020 Review Belem Holloway [facility] Start: 09-18-2020 End: 09-18-2020 Office outpatient visit 15 minutes Belem Hagen [facility] Start: 06-21-2020 End: 06-21-2020 Office outpatient visit 25 minutes Belem Damon [facility] Start: 03-01-2020 End: 03-01-2020 Office outpatient visit 5 minutes Belem Damon [facility] Start: 02-28-2020 End: 02-28-2020 Office outpatient visit 10 minutes Belem Damon [facility] Start: 10-14-2019 End: 10-14-2019 Office outpatient visit 15 minutes Belem Hagne [facility] Start: 10-14-2019 Review Belem Hagen [facility] Internal Medicine Start: 12-06-2018 End: 12-06-2018 Annotation/Addendum Belem Hagen [facility] Start: 12-06-2018 End: 12-06-2018 Rayshawn Chaudhary CNP Work Phone: [facility] Start: 12-02-2018 End: 12-02-2018 Office outpatient visit 15 minutes Belem Hagen [facility] Start: 07-28-2018 End: 07-28-2018 Annotation/Addendum Belem Hagen [facility] Start: 07-28-2018 End: 07-28-2018 Rayshawn Chaudhary CNP Work Phone: [facility] Start: 07-27-2018 End: 07-27-2018 Office outpatient visit 25 minutes Belem Hagen [facility] Start: 11-04-2017 End: 11-04-2017 Office outpatient visit 10 minutes Belem Hagen [facility] Start: 10-16-2017 End: 10-16-2017 Office outpatient visit 15 minutes Belem Hagen [facility] Start: 07-21-2017 End: 07-21-2017 Annotation/Addendum Belem Hagen [facility] Start: 07-21-2017 End: 07-21-2017 Rayshawn Chaudhary CNP Work Phone: [facility] Start: 07-18-2017 End: 07-18-2017 Office outpatient visit 15 minutes Belem Hagen [facility] Start: 12-17-2016 End: 12-17-2016 Annotation/Addendum Belem Hagen [facility] Start: 12-17-2016 End: 12-17-2016 Rayshawn Chaudhary CNP Work Phone: [facility] Start: 12-16-2016 End: 12-16-2016 Office outpatient visit 15 minutes Belem Hagen [facility] Start: 09-23-2016 End: 09-23-2016 Office outpatient visit 15 minutes Belem Hagen [facility] Start: 08-07-2016 End: 08-07-2016 Phone Encounter Belem Hagen [facility] Start: 08-07-2016 End: 08-07-2016 Rayshawn Chaudhary CNP Work Phone: [facility] Start: 08-06-2016 End: 08-06-2016 Patient encounter procedure Belem Hagen [facility] Start: 08-06-2016 End: 08-06-2016 Rayshawn Chaudhary CNP Work Phone: [facility] Start: 05-02-2016 End: 05-02-2016 Patient encounter procedure Belem Hagen [facility] Start: 05-02-2016 End: 05-02-2016 Rayshawn Chaudhary CNP Work Phone: [facility] Start: 04-30-2016 End: 04-30-2016 Phone Encounter Belem Hagen [facility] Start: 04-30-2016 End: 04-30-2016 Rayshawn Chaudhary CNP Work Phone: [facility] Start: 04-19-2016 End: 04-19-2016 Office outpatient visit 15 minutes Belem Kema [facility] Start: 03-14-2016 End: 03-14-2016 Office outpatient visit 15 minutes Belem Kemmargarita [facility] Start: 03-11-2016 End: 03-11-2016 Office outpatient visit 25 minutes Belem Brownleea [facility] Start: 11-03-2015 End: 11-03-2015 Office outpatient visit 10 minutes Belem Jyothiesa [facility] Start: 10-09-2015 End: 10-09-2015 Office outpatient visit 25 minutes Belem Jyothiesa [facility] Start: 06-21-2015 End: 06-21-2015 Office outpatient visit 15 minutes Belem Jyothiesa [facility] Start: 05-31-2015 End: 05-31-2015 Office outpatient visit 15 minutes Belem Jyothiesa [facility] Start: 02-15-2015 End: 02-16-2015 Office outpatient visit 25 minutes Belem Brownleea [facility] Start: 10-19-2014 End: 10-20-2014 Office outpatient visit 25 minutes Belem Jyothiesa [facility] Start: 09-12-2014 End: 09-12-2014 Phone Encounter Belem Hagen [facility] Start: 09-12-2014 End: 09-12-2014 Rayshawn Chaudhary CNP Work Phone: [facility] Start: 07-20-2014 End: 07-20-2014 Office outpatient visit 25 minutes Belem Jyothiesa [facility] Start: 05-04-2014 End: 05-04-2014 Patient encounter procedure Rayshawn Guzmanlee GIBBS Work Phone: [facility] Start: 05-04-2014 End: 05-04-2014 Phone Encounter Belem Hagen [facility] Start: 05-04-2014 End: 05-04-2014 Rayshawn Chaudhary CNP Work Phone: [facility] Start: 03-21-2014 End: 03-21-2014 Phone Encounter Belem Hagen [facility] Start: 03-21-2014 End: 03-21-2014 Rayshawn [...] 08-16-2013 End: 08-16-2013 Annotation/Addendum Belem Hagen [facility] Start: 08-16-2013 End: 08-16-2013 Rayshawn Chaudhary CNP Work Phone: [facility] Start: 08-06-2013 End: 08-08-2013 Patient encounter procedure Belem Hagen [facility] Start: 08-06-2013 End: 08-08-2013 Rayshawn Chaudahry CNP Work Phone: [facility] Start: 06-30-2013 End: 07-01-2013 Patient encounter procedure Belem Hagen [facility] Start: 06-30-2013 End: 07-01-2013 Rayshawn Chaudhary CNP Work Phone: [facility] Start: 02-18-2012 End: 02-18-2012 Patient encounter procedure Belem Hagen [facility] Start: 02-18-2012 End: 02-18-2012 Rayshawn Chaudhary [facility] Work Phone: [facility] Start: 01-27-2012 End: 01-27-2012 Office outpatient new 45 minutes Belem Hieu [facility] Patient encounter procedure Afshin Daniel PHYSICIAN ASSISTANT [facility]; [facility] Work Phone: Patient encounter procedure Afshin Daniel PHYSICIAN ASSISTANT [facility]; [facility] Work Phone: Patient encounter procedure Samantha Goodman CT [facility] Work Phone: Patient encounter procedure Marry Cara PHYSICIAN ASSISTANT [facility]; [facility] Work Phone: Patient encounter procedure Marry Marroquin PHYSICIAN ASSISTANT [facility]; [facility] Work Phone: Patient encounter procedure Citlali Slalizet [facility]; [facility] Work Phone: Patient encounter procedure Sea Parry [facility]; [facility] Work Phone: Patient encounter procedure Citlali Slarb [facility]; [facility] Work Phone: Patient encounter procedure Dao Bedoya [facility]; [facility] Work Phone: Patient encounter procedure Fiorella Manbrice [facility]; [facility] Work Phone: Procedures Date Procedure Procedure Detail Performing Clinician Start: 09-27-[address] VERONICA CARLISLE MD Comment on above: ROBOTIC ASSISTED LEFT TOTAL KNEE REPLACE MENT Start: 08-11-2025 Urnls dip stick/tablet reagent auto microscopy Rayshawn Chaudhary TRANSIT VEHICLE INSPECTOR-C Work Phone: Start: 07-21-2025 Estimated creatinine clearance Rayshawn Chaudhary TRANSIT VEHICLE INSPECTOR-C Work Phone: Start: 04-29-2025 Folic acid measurement Rayshawn Chaudhary TRANSIT VEHICLE INSPECTOR-C Work Phone: Start: 04-26-2025 Total iron binding capacity measurement Rayshawn Chaudhary TRANSIT VEHICLE INSPECTOR-C Work Phone: Start: 04-23-2025 X-ray of chest, PA and lateral views Rayshawn Chaudhary TRANSIT VEHICLE INSPECTOR-C Work Phone: Start: 04-23-2025 Estimated creatinine clearance Rayshawn Chaudhary TRANSIT VEHICLE INSPECTOR-C Work Phone: Start: 04-23-2025 CT of head without contrast Rayshawn Guzman am TRANSIT VEHICLE INSPECTOR-C Work Phone: Start: 04-04-2025 X-ray of chest, PA and lateral views Rayshawn Chaudhary TRANSIT VEHICLE INSPECTOR-C Work Phone: Start: 04-04-2025 D-dimer assay, quantitative Rayshawn Guzman am TRANSIT VEHICLE INSPECTOR-C Work Phone: Comment on above: D-Dimer ELEVATED (>0.49): Additional keegan dies and clinicalassessments are indicated to conclude diagnosis of:Deep Vein Thrombosis (DVT) or Pulmonary Embolism (PE)CRITICAL VALUE CALLED TO [id number]/05/25 1402 Abby Littlejohn.RESULTS READ BACK BY SAME. Start: 04-04-2025 Estimated creatinine clearance Rayshawn Chaudhary TRANSIT VEHICLE INSPECTOR-C Work Phone: Start: 02-22-2025 Lumpectomy of breast Rayshawn Chaudhary TRANSIT VEHICLE INSPECTOR-C Work Phone: Start: 02-22-2025 Radionuclide sentinel lymph node study Rayshawn Chaudhary TRANSIT VEHICLE INSPECTOR-C Work Phone: Start: 01-12-2025 Ultrasonography of breast Rayshawn Chaudhary TRANSIT VEHICLE INSPECTOR-C Work Phone: Start: 01-10-2025 Screening mammography Rayshawn Chaudhary TRANSIT VEHICLE INSPECTOR-C Work Phone: Start: 01-29-2024 Dual energy X-ray absorptiometry TRANSIT VEHICLE INSPECTOR-C Rayshawn Chaudhary Work Phone: Start: 10-10-2023 CT of abdomen TRANSIT VEHICLE INSPECTOR-C Rayshawn Chaudhary Work Phone: Start: 07-21-2023 End: 07-21-2023 Procedure Note: See Note; NOTES: [facility] Emergency Department [address] [place], [place] [address] OFFICE VISIT Date of Service: 07/21/23 MR#: [id number] Acct: [id number] Name: ALISTAIR ARECHIGA Rep #: [id number] : 1945 Provider: NONA ramirez Age/Sex: 77/F Location: [facility] Status: Signed Intake Vital Signs 04/24/23 11:28 05/21/23 10:49 07/21/23 12:53 07/21/23 12:58 Height 5 ft 1 in 5 ft 1 in 5 ft 1 in 5 ft 1 in Weight: 175 lb 2 oz BMI 33.0 BP 134/84 H Intake Visit Reasons: 3 mo fu Chief Complaint: 3mo f/u Herd Tester Required: No Is patient in pain?: No [...] home: Yes 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 [employer] 3 mo fu Details: ALISTAIR ARECHIGA is a 77 year old who presents for pessary maintenance; denies concerns History 3 Elective abortions Hx Para 3 Spontaneous abortions Hx # Term Pregnancies Ectopic pregnancies Hx # Pregnancies Multiple births # of living children Past Pregnancies Del. Date Name GA/Weeks Outcome Route Bth Weight Gen Labor Lgth Anesthesia Del [facility] Provider FOB Unknown 1967 Mikal Unknown 1969 [facility] Unknown 1970 Sil Muñiz ROS Const Constitutional: [...] mo 07/21/23 1309 <Electronically signed by Rayna Bazzi NP, NP-C> Date Rayna MCCORMACKC Cosigner Signature: Date (if applicable) CC: Rayshawn Chaudhary [facility] Work Phone: Start: 05-21-2023 Plain chest X-ray TRANSIT VEHICLE INSPECTOR-C Rayshawn Chaudhary Work Phone: Start: 05-21-2023 End: 05-21-2023 Procedure Note: See Note; NOTES: [facility] Imaging Services [address] [place] [address] Chest 1 View (Portable) MR#: [id number] Acct: [id number] Name: ALISTAIR ARECHIGA Rep #: [id number] : 1945 F 77 From: Patrick Kilgore MD PCP: EASTON DickersonC Status: REG ER Study: Chest 1 View (Portable) Date of Exam: 05/21/23 Exam# [id number] Ordering Dr: Domenic Merrill DO STUDY: X-RAY [...] Kilgore MD at 12:10 EDT , CC: TRANSIT VEHICLE INSPECTOR-C Rayshawn Chaudhary; Dr. Domenic Merrill DO [employer] Dispatcher: Signed Rayshawn Chaudhary CNP Work Phone: Start: 05-21-2023 End: 05-21-2023 Procedure Note: See Note; NOTES: [facility] Medical Records Department [address] [place] [address] Emergency Department Summary 05/21/23 MR#: [id number] Acct: [id number] Name: ALISTAIR ARECHIGA Rep #: [id number] : 1945 77 From: Domenic Merrill DO PCP: Rayshawn Chaudhary NP-C Status:REG ER Location: ED HPI History of Present Illness Chief Complaint: Abd Pain PFSH [facility] Medical History GERD (gastroesophageal reflux disease) Hyperlipidemia [...] BEEN PERSONALLY REVIEWED AND INTERPRETED BY MYSELF. [facility] Narrative: The patient was hemodynamically stable, afebrile, [...] severe anemia, no thrombocytopenia. BMP without significant Cadogan abnormalities, no anion gap to suggest endorgan [...] % (Auto) 57.4 Lymph % (Auto) 31.6 Bullock % (Auto) 7.9 Eos % (Auto) 1.8 [...] Sl. Cloudy Urine pH 6.0 Ur Specific Norco 1.015 Urine Protein Negative Urine Glucose (UA) [...] 12:10 EDT Reading Location ID and State: [facility] / [place] , Service support , I have personally [...] Staff - Active Staff] - Rayshawn Chaudhary NP-C [Primary Care Provider] - Activity Restrictions/Additional Instructions: [...] your Primary Care Provider. Call Doctors Registry ([phone]) or report to the closest Emergency Room. Call 911 if necessary. 05/21/23 1258 <Electronically signed by Domenic Merrill DO> Cosigner Signature (if applicable): CC: NONA Chaudhary Signed Rayshawn Chaudhary [facility] Work Phone: Start: 05-15-2023 Computed tomography of abdomen and pelvis with contrast NONA Chaudhary Work Phone: Start: 05-15-2023 End: 05-15-2023 Procedure Note: See Note; NOTES: [facility] Imaging Services [address] [place] [address] Abdomen/Pelvis WITH Contrast MR#: [id number] Acct: [id number] Name: ALISTAIR ARECHIGA Rep #: [id number] : 1945 F 77 From: John alarcon MD PCP: Rayshawn Chaudhary TRANSIT VEHICLE INSPECTOR-C Status: REG CLI Study: Abdomen/Pelvis WITH Contrast Date of Exam: Exam# [id number] Ordering Dr: Omayra Parham DO STUDY: CT [...] CC: NONA Chaudhary; Dr. Omayra Parham DO [employer] Dispatcher: Signed Omayra Parham DO Work Phone: Start: 04-24-2023 End: 04-24-2023 Procedure Note: See Note; NOTES: [facility] Women's Care [address] [place] [address] OFFICE VISIT Date of Service: 04/24/23 MR#: [id number] Acct: [id number] Name: ALISTAIR ARECHIGA Rep #: [id number] : 1945 Provider: NONA ramirez Age/Sex: 77/F Location: [facility] Status: Signed Intake Vital Signs 01/23/23 10:32 03/10/23 17:15 04/24/23 11:24 04/24/23 11:28 Height 5 ft 1 in 5 ft 1 in 5 ft 1 in 5 ft 1 in Weight: 176 lb BMI 33.2 BP 142/85 H Intake Visit Reasons: 3 MO F/U Herd Tester Required: No Is patient in pain?: No [...] ointment ea topical 04/24/23 [History Confirmed 04/24/23] PFSH Medical History GERD (gastroesophageal reflux disease) [...] social history: Vincent- Retired HPI 3 MO F/U Details: ALISTAIR ARECHIGA is [...] Bth Weight Gen Labor Lgth Anesthesia Del Locat Provider FOB Unknown 1967 Mikal Unknown 1969 [facility] [place] Unknown 1970 [place] ROS Const [...] 1154 <Electronically signed by Rayna Bazzi NP TRANSIT VEHICLE INSPECTOR-C> Date Rayna Bazzi NP TRANSIT VEHICLE INSPECTOR-C Cosigner Signature: Date (if applicable) CC: Rayshawn Chaudhary [facility] Work Phone: Start: 03-17-2023 Diagnostic radiography of abdomen TRANSIT VEHICLE INSPECTOR-C Rayshawn Maurice Work Phone: Start: 03-17-2023 End: 03-17-2023 Procedure Note: See Note; NOTES: [facility] Radiology [address] [address] Acute Abdomen Inc Chest MR#: [id number] Acct: [id number] Name: ALISTAIR ARECHIGA Rep #: [id number] : 1945 F 77 From: Jem Brice DO PCP: NONA Dickerson Status: DEP AMB Study: Acute Abdomen Inc Chest Date of Exam: 03/17/23 Exam# [id number] Ordering Dr: Rayshawn Chaudhary STUDY: X-RAY - [...] 16:19 EDT Reading Location ID and State: [address] [place] [address] Tel [phone], Service support , CC: NONA Chaudhary [employer] Dispatcher: Signed Rayshawn Chaudhary CNP Work Phone: Start: 03-13-2023 End: 03-13-2023 EKG impression Abdoulaye Nova Start: 03-10-2023 End: 03-10-2023 Emergency Department Summary Procedure Note: See Note; NOTES: [facility] Medical Records Department [address] [place] [address] Emergency Department Summary 03/10/23 MR#: [id number] Acct: [id number] Name: ALISTAIR ARECHIGA Rep #: [id number] : 1945 77 From: Tod Warner DO PCP: NONA Dickerson Status:DEP ER Location: ED HPI History of Present Illness Chief Complaint: Dizziness Narrative Narrative: 77-year-old female presenting for lightheadedness. She states it started about an hour and a half after taking the Quanah. She states the Quanah was initially intended for abdominal pain which [...] waiting room all of her symptoms resolved. [facility] Medical History GERD (gastroesophageal reflux disease) Hyperlipidemia [...] this all started after she took a Quanah earlier today for her back. She suspects this is what it is from. She has normal vital signs. She had blood work done just the other day as well as an ultrasound right upper quadrant and this was all negative. I do not believe she needs repeat imaging. I suspect this is likely due to the Quanah. I counseled the patient on this. She [...] Care Provider: Rayshawn Chaudhary Referrals: Rayshawn Chaudhary, NONA [Primary Care Provider] - Disposition Disposition: Home, Self Care Discharge Date/Time: 03/10/23 21:15 What to do if you have Problems For any increased pain, shortness of breath, bleeding, nausea or vomiting, chest pain, or any unexpected problems, contact your Primary Care Provider. Call Doctors Registry ([phone]) or report to the closest Emergency Room. Call 911 if necessary. 03/10/23 4242 <Electronically signed by Tod Warner DO> Cosigner Signature (if applicable): CC: NONA Chaudhary Signed Rayshawn Chaudhary [facility] Work Phone: Start: 03-09-2023 End: 03-09-2023 Emergency Department Summary Procedure Note: See Note; NOTES: [facility] Medical Records Department [address] [place] [address] Emergency Department Summary 03/09/23 MR#: [id number] Acct: [id number] Name: ALISTAIR ARECHIGA Rep #: [id number] : 1945 77 From: Tristan Landis MD PCP: Rayshawn Chaudhary NP-C Status:DEP ER Location: ED HPI HPI - [...] hip that she is in care for. [facility] Medical History GERD (gastroesophageal reflux disease) Hyperlipidemia [...] % (Auto) 51.7 Lymph % (Auto) 36.4 Bullock % (Auto) 8.1 Eos % (Auto) 2.6 [...] Nerissa Hay MD at 2:09 EDT , I reviewed the images and the [...] Care Provider: Rayshawn Chaudhary Referrals: Rayshawn Chaudhary, TRANSIT VEHICLE INSPECTOR-C [Primary Care Provider] - 3-5 Days if [...] your Primary Care Provider. Call Doctors Registry ([phone]) or report to the closest Emergency Room. Call 911 if necessary. 03/09/23 0559 <Electronically signed by Tristan Landis MD> Cosigner Signature (if applicable): CC: NONA Chaudhary Signed Rayshawn Chaudhary ELECTROMECHANICAL EQUIPMENT TESTER Work Phone: Start: 03-09-2023 End: 03-09-2023 Gallbladder Procedure Note: See Note; NOTES: [facility] Imaging Services [address] [address] Gallbladder MR#: [id number] Acct: [id number] Name: ALISTAIR ARECHIGA Rep #: [id number] : 1945 F 77 From: Nerissa Hay MD PCP: NONA Dickerson Status: REG ER Study: Gallbladder Date of Exam: 03/09/23 Exam# [id number] Ordering Dr: Tristan Landis MD STUDY: ABDOMINAL [...] 2:09 EDT Reading Location ID and State: [facility] / [place] Tel , Service support , CC: NONA Chaudhary; Dr. Tristan Landis MD [employer] Dispatcher: Signed Rayshawn Chaudhary [facility] Work Phone: Start: 03-09-2023 US scan of gallbladder NONA Chaudhary Work Phone: Start: 01-23-2023 End: 01-23-2023 Maintenance Pipefitter Office Visit Report Procedure Note: See Note; NOTES: [facility] [address] [place] [address] OFFICE VISIT Date of Service: 01/23/23 MR#: [id number] Acct: [id number] Name: SOFIAALISTAIR YAO Rep #: [id number] : 1945 Provider: NONA ramirez Age/Sex: 77/F Location: [facility] Status: Signed Intake Vital Signs 01/23/23 10:27 01/23/23 10:32 Height 5 ft 1 in 5 ft 1 in Weight: 177 lb 6 oz BMI 33.5 BP 134/78 H Intake Visit Reasons: pessary check Chief Complaint: Pessary check Herd Tester Required: No Is patient in pain?: No [...] 7 days #15 grams 07/20/20 [Rx Confirmed 01/23/23] levothyroxine 25 mcg tablet [...] menopausal: Yes Patient : No : No [facility] Medical History GERD (gastroesophageal reflux disease) Hyperlipidemia [...] home: Yes 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 [employer] pessary check Details: ALISTAIR ARECHIGA is a 77 year old who presents for pessary check. Denies concerns. History 3 Elective abortions Hx Para 3 Spontaneous abortions Hx # Term Pregnancies Ectopic pregnancies Hx # Pregnancies Multiple births # of living children Past Pregnancies Del. Date Name GA/Weeks Outcome Route Bth Weight Gen Labor Lgth Anesthesia Del [facility] Provider FOB Unknown 1967 Mikal Unknown 1969 [facility] Unknown 1970 [facility] Const Constitutional: Reports system reviewed and no [...] Signature: Date (if applicable) CC: Rayshawn Chaudhary ELECTROMECHANICAL EQUIPMENT TESTER Work Phone: Start: 09-04-2022 End: 09-04-2022 Maintenance Pipefitter Office Visit Report Procedure Note: See Note; NOTES: [facility] Women's [address] [place] [address] OFFICE VISIT Date of Service: 09/04/22 MR#: [id number] Acct: [id number] Name: ALISTAIR ARECHIGA Rep #: [id number] : 1945 Provider: NONA ramirez Age/Sex: 76/F Location: [facility] Status: Signed Intake Vital Signs 09/04/22 09:22 09/04/22 09:23 Height 5 ft 1 in 5 ft 1 in Weight: 178 lb BMI 33.6 BP 161/80 H Intake Visit Reasons: 3 MO FU Chief Complaint: Pessary check Herd Tester Required: No Is patient in pain?: No [...] home: Yes 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 [employer] 3 MO FU Details: ALISTAIR ARECHIGA is [...] Provider FOB Unknown 1967 Mikal Unknown 1969 [facility] Unknown 1970 Sil Muñiz ROS Const Constitutional: [...] months 09/04/22 0952 <Electronically signed by Rayna MCCORMACKC> Date Rayna MCCORMACKC Cosigner Signature: Date (if applicable) CC: Rayshawn Chaudhary [facility] Work Phone: Start: 06-05-2022 End: 06-05-2022 Maintenance Pipefitter Office Visit Report Comments: See Note; NOTES: [facility] Women[facility] [address] [place] [address] OFFICE VISIT Date of Service: 06/05/22 MR#: [id number] Acct: [id number] Name: ALISTAIR ARECHIGA Rep #: [id number] : 1945 Provider: NONA ramirez Age/Sex: 76/F Location: [facility] Status: Signed Intake Vital Signs 02/25/22 09:52 [...] home: Yes 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 [employer] 3 MO pessary check Details: ALISTAIR ARECHIGA [...] Weight Infant Gen Labor Lgth Anesthesia Del [facility] Provider FOB Unknown 1967 Mikal Unknown 1969 [facility] Unknown 1970 [facility] ROS Const Constitutional: Reports system reviewed [...] months 06/05/22 1027 <Electronically signed by Rayna CASTELLANO> Date Rayna Bazzi NP, NP-C Cosigner Signature: Date (if applicable) CC: Rayshawn Chaudhary [facility] Work Phone: Start: 05-21-2022 End: 05-21-2022 Kidney and Bladder Comments: See Note; NOTES: [facility] Imaging Services [address] [place] [address] Kidney and Bladder MR#: [id number] Acct: [id number] Name: ALISTAIR ARECHIGA Rep #: [id number] : 1945 F 76 From: Faizan Hodges MD PCP: NONA Perea Status: REG CLI Study: Kidney and Bladder Date of Exam: 05/21/22 Exam# [id number] Ordering Dr: Dia Villagran MD STUDY: RENAL [...] Hodges MD at 18:14 EDT , CC: NONA Hagen; Dr. Dia Villagran MD [employer] Dispatcher: Signed Belem Hagen Work Phone: Start: 05-21-2022 US urinary tract TRANSIT VEHICLE INSPECTOR-Melissa Hagen NP Work Phone: Start: 05-16-2022 End: 05-16-2022 Emergency Department Summary Comments: See Note; NOTES: [facility] Medical Records Department [address] [place] [address] Emergency Department Summary 05/16/22 MR#: [id number] Acct: [id number] Name: ALISTAIR ARECHIGA Rep #: [id number] : 1945 76 From: Dimitrios Islas DO [...] symptoms and therefore comes in for evaluation. [facility] Medical History GERD (gastroesophageal reflux disease) Hyperlipidemia [...] % (Auto) 52.8 Lymph % (Auto) 32.4 Bullock % (Auto) 10.4 H Eos % (Auto) [...] Clarity Clear Urine pH 7.0 Ur Specific Norco 1.010 Urine Protein Negative Urine Glucose (UA) [...] (Auto) Neut % (Auto) Lymph % (Auto) Bullock % (Auto) Eos % (Auto) Baso % (Auto) Absolute Neuts (auto) Absolute Lymphs (auto) Nucleated RBC % Sodium Potassium Chloride Carbon Dioxide Anion Gap BUN Creatinine Estim Creat Clear Calc Est GFR (MDRD) Af Amer Est GFR (MDRD) Non-Af BUN/Creatinine Ratio Glucose Calcium Magnesium Troponin I High Sens 8 Urine Color Urine Clarity Urine pH Ur Specific Norco Urine Protein Urine Glucose (UA) Urine Ketones Urine Occult Blood Urine Nitrite Urine Bilirubin Urine Urobilinogen Ur Leukocyte Esterase Urine RBC Urine WBC Ur Squamous Epith Cells Urine Bacteria Urine Mucus Radiography Diagnostic Testing: Clinical Impression(s) from Imaging Studies Brain CT 05/16/22 01:27 IMPRESSION: 1. Acute on chronic sinusitis. 2. No acute intracranial pathology. Electronically Signed: Dimitiros Jauregui MD at 2:48 EDT , Chest [...] Belem Hagen NP Referrals: Belem Hagen NP, TRANSIT VEHICLE INSPECTOR-C [Primary Care Provider] - Activity Restrictions/Additional Instructions: [...] your Primary Care Provider. Call Doctors Registry ([phone]) or report to the closest Emergency Room. Call 911 if necessary. 05/16/22 0650 <Electronically signed by Dimitrios Islas DO> Cosigner Signature (if applicable): CC: TRANSIT VEHICLE INSPECTOR-C Belem Hagen Signed Belem Hagen Work Phone: Start: 05-16-2022 End: 05-17-2022 12 Lead EKG Comments: See Note; NOTES: [facility] Cardiovascular Services [address] [place] [address] 12 Lead EKG 05/16/22 0159 MR#: [id number] Acct: [id number] Name: ALISTAIR ARECHIGA Rep #: [id number] : 1945 76 From: Juan M Reyna [...] Confirmed by LUZ MARIA GARZA, JUAN M ([id number]), health editor DESHAWN MICHAELS ([id number]) on 05/17/2022 9:14:48 AM Referred By: RANDOLPH Confirmed By:JUAN M REYNA MD 05/17/22913 Date Juan M Reyna MD CC: TRANSIT VEHICLE INSPECTOR-C Belem Hagen; Dimitrios Islas DO Signed Belem Hagen Work Phone: Start: 05-16-2022 End: 05-16-2022 Brain/Head without Contrast Comments: See Note; NOTES: [facility] Imaging Services [address] [place] [address] Brain/Head without Contrast MR#: [id number] Acct: [id number] Name: ALISTAIR ARECHIGA Rep #: [id number] : 1945 F 76 From: Dimitrios Jauregui MD PCP: NONA Perea Status: REG ER Study: Brain/Head without Contrast Date of Exam: 05/01 05/22 Exam# [id number] Ordering Dr: Dimitrios Islas DO EXAM: CT [...] reconstruction technique. This report was created using [employer] report ZOGO[employer]nis technology. COMPARISON: 06/13/2020 exam FINDINGS: BRAIN AND [...] Signed: Dimitrios Jauregui MD at 2:48 EDT Reading Location ID and State: [address] [place] [address] Tel , Service support , CC: NONA Hagen; Dimitrios Islas DO [employer] Dispatcher: Signed Belem Hagen Work Phone: Start: 05-16-2022 End: 05-16-2022 Chest 1 View (Portable) Comments: See Note; NOTES: [facility] Imaging Services [address] [address] Chest 1 View (Portable) MR#: [id number] Acct: [id number] Name: ALISTAIR ARECHIGA Rep #: [id number] : 1945 F 76 From: Dimitrios Jauregui MD PCP: NONA Perea Status: REG ER Study: Chest 1 View (Portable) Date of Exam: 05/16/22 Exam# [id number] Ordering Dr: Dimitrios Islas DO EXAM: XR CHEST, 1 VIEW CLINICAL INDICATION: chest pain TECHNIQUE: Frontal view of the chest. This report was created using [employer] report generation technology. COMPARISON: 04/14/2021 FINDINGS: LUNGS AND PLEURAL SPACES: Unremarkable. No consolidation or edema. No pneumothorax. No effusion. HEART: Unremarkable. Cardiac silhouette not enlarged. MEDIASTINUM: Central airways and mediastinal contour are unremarkable. BONES/JOINTS: Degenerative changes of the spine. Degenerative changes of acromioclavicular joints. SOFT TISSUES: Unremarkable. RAD/Chest 1 View (Portable) IMPRESSION: No acute disease. Electronically Signed: Dimitrios Jauregui MD at 2:45 EDT Reading Location ID and State: [facility] / [place] Tel , Service support , CC: TRANSIT VEHICLE INSPECTOR-C Belem Hagen; Dimitrios Islas DO [employer] Dispatcher: Signed Belem Hagen Work Phone: Start: 05-16-2022 CT of head without contrast TRANSIT VEHICLE INSPECTOR-C Belem doherty TRANSIT VEHICLE INSPECTOR Work Phone: Start: 05-16-2022 Plain chest X-ray TRANSIT VEHICLE INSPECTOR-C Belem Hagen TRANSIT VEHICLE INSPECTOR Work Phone: Start: 02-28-2022 End: 02-28-2022 Emergency Department Summary Comments: See Note; NOTES: [facility] Medical Records Department [address] [place] [address] Emergency Department Summary 02/28/22 MR#: [id number] Acct: [id number] Name: ALISTAIR ARECHIGA Rep #: [id number] : 1945 76 From: Monet Monaco MD PCP: NONA Perea Status:DEP ER Location: ED HPI <Dr. Monet Monaco MD - Last Filed: 02/28/22 16:02> History of Present Illness Chief Complaint: Dizziness <CRISTINE SIMS - Last Filed: 02/28/22 15:54> History of Present Illness Informant: patient Onset/Context/Timing Onset: Today (629) Context: Sudden Onset Narrative Narrative: Patient presents [...] Recent Illness/Hospitalization: Yes (Current treatment for UTI.) [facility] <Dr. Monet Monaco MD - Last Filed: 02/28/22 16:02> [facility] Medical History GERD (gastroesophageal reflux disease) Hyperlipidemia [...] normal Skin no rashes or lesions noted [facility] <Dr. Monet Monaco MD - Last Filed: 02/28/22 16:02> [facility] Lab Data Labs: Laboratory Results - last 24 hr 02/28/22 02/28/22 02/28/22 14:10 14:10 14:20 WBC 5.9 RBC 4.76 Hgb 12.5 Hct 40.1 MCV 84.2 MCH 26.3 L MCHC 31.2 L RDW Std Deviation 45.5 H RDW Coeff of Kimi 14.8 H Plt Count 333 MPV 9.3 Immature Gran % (Auto) 0.300 Neut % (Auto) 64.9 Lymph % (Auto) 24.3 Bullock % (Auto) 8.0 Eos % (Auto) 2.0 [...] Clarity Clear Urine pH 6.5 Ur Specific Norco 1.010 Urine Protein Negative Urine Glucose (UA) Normal Urine Ketones Negative Urine Occult Blood Negative Urine Nitrite Negative Urine Bilirubin Negative Urine Urobilinogen Normal Ur Leukocyte Esterase Negative Urine RBC 0 SEEN Urine WBC 0 SEEN Ur Squamous Epith Cells 0 SEEN Urine Bacteria 0 SEEN Urine Mucus 0 SEEN Treatment and Re-Evaluation Narrative: Patient seen and evaluated with TRANSIT VEHICLE INSPECTOR student. I personally interviewed and examined the [...] of her antibiotics. Return instructions provided. <CRISTINE JOSIANEANTHONY - Last Filed: 02/28/22 15:54> [facility] MDM Narrative Medical decision making narrative: CBC, BMP ordered. Will also obtain troponin and EKG and patient will be placed on soap tender. Urinalysis will also be collected. Lab Data [...] % (Auto) 64.9 Lymph % (Auto) 24.3 Bullock % (Auto) 8.0 Eos % (Auto) 2.0 [...] Clarity Clear Urine pH 6.5 Ur Specific Norco 1.010 Urine Protein Negative Urine Glucose (UA) [...] Belem Hagen NP Referrals: Belem Hagen NP, TRANSIT VEHICLE INSPECTOR-C [Primary Care Provider] - 1-2 Weeks Disposition Disposition: Home, Self Care Discharge Date/Time: 02/28/22 16:01 What to do if you have Problems For any increased pain, shortness of breath, bleeding, nausea or vomiting, chest pain, or any unexpected problems, contact your Primary Care Provider. Call Doctors Registry ([phone]) or report to the closest Emergency Room. Call 911 if necessary. 02/28/22 9153 <Electronically signed by Monet Monaco MD> Cosigner Signature (if applicable): CC: TRANSIT VEHICLE INSPECTOR-C Belem Hagen Signed Belem Hagen Work Phone: Start: 02-28-2022 End: 03-01-2022 12 Lead EKG Comments: See Note; NOTES: [facility] Cardiovascular Services [address] [place] [address] 12 Lead EKG 02/28/22 1403 MR#: [id number] Acct: [id number] Name: ALISTAIR ARECHIGA Rep #: [id number] : 1945 76 From: Luis Carlos Zuluaga [...] Normal sinus rhythm Normal ECG Confirmed by LUIS CARLOS ZULUAGA MD ([id number]), health editor DESHAWN MICHAELS ([id number]) on 03/01/2022 2:45:17 PM Referred By: NICHOLAS Confirmed By:LUIS CARLOS ZULUAGA MD 03/01/22 3984 Date Luis Carlos Zuluaga MD CC: NONA Hagen; Dr. Monet Monaco MD Signed Belem Hagen Work Phone: Start: 02-25-2022 Urine culture TRANSIT VEHICLE INSPECTOR-Melissa Hagen TRANSIT VEHICLE INSPECTOR Work Phone: Start: 02-25-2022 End: 02-25-2022 Maintenance Pipefitter Office Visit Report Comments: See Note; NOTES: [facility] [address] [place] [address] OFFICE VISIT Date of Service: 02/25/22 MR#: [id number] Acct: [id number] Name: ALISTAIR ARECHIGA Rep #: [id number] : 1945 Provider: NONA ramirez Age/Sex: 76/F Location: [facility] Status: Signed Intake Vital Signs 02/25/22 09:52 [...] Bth Weight [facility] Provider FOB Unknown 1966 Mikal Unknown 1969 [facility] Unknown 1970 [facility] HPI 3 MO pessary check Details: [...] Hopkins on 02/25/22 10:04 Off Ur Spec Norco 1.005 Last Edit by Leia Hopkisn on 02/25/22 10:04 Office Urine pH 5.0 [...] cystitis with hematuria Plan - Rayna Bazzi TRANSIT VEHICLE INSPECTOR, TRANSIT VEHICLE INSPECTOR-C: Reviewed S S infection UA positive, Rx macrobid and culture pending Mammogram offered and declines RTO 3 months Plan Details Other Medications: New: nitrofurantoin macrocrystal administer with food (meal or snack) 100 mg PO BID 7 days 14 caps 0RF Other Orders: Orders: Pessary Check Today POC Urinalysis Dip (Clinic) Today R30.9 Culture, Urine Today R30.9 02/25/22 1017 <Electronically signed by Rayna MCCORMACKC> Date Rayna CASTELLANO Cosigner Signature: Date (if applicable) CC: Belem Hagen Work Phone: Start: 11-19-2021 End: 11-19-2021 Maintenance Pipefitter Office Visit Report Comments: See Note; NOTES: [facility] [address] [place] [address] OFFICE VISIT Date of Service: 11/19/21 MR#: [id number] Acct: [id number] Name: ALISTAIR ARECHIGA Rep #: [id number] : 1945 Provider: NONA ramirez Age/Sex: 76/F Location: [facility] Status: Signed Intake Vital Signs 11/19/21 10:34 [...] Provider FOB Unknown 1966 Mikal Unknown 1969 [facility] Unknown 1970 [facility] ROS Const [...] Comment: #3 donut Plan - Rayna Bazzi NP, TRANSIT VEHICLE INSPECTOR-C: Reviewed S S infection and use of trimason and estradiol cream RTO 3 months 11/19/21 1047 <Electronically signed by Rayna Bazzi NP, NP-C> Date Rayna CASTELLANO Cosigner Signature: Date (if applicable) CC: Belem Hagen CNP Work Phone: Start: 08-20-2021 End: 08-20-2021 Maintenance Pipefitter Office Visit Report Comments: See Note; NOTES: [facility] [address] [place] [address] OFFICE VISIT Date of Service: 08/20/21 MR#: [id number] Acct: [id number] Name: SOFIAALISTAIR MAXIMILIAN Rep #: [id number] : 1945 Provider: NONA ramirez Age/Sex: 75/F [place] [facility] [place]: Signed Intake Vital Signs 08/20/21 09:49 08/20/21 09:50 08/20/21 09:53 Height 5 ft 1 in 5 ft 1 in Weight: 171 lb BMI 33.7 32.3 BP 132/78 H Intake Visit Reasons: 3 MO PESSARY CHECK Herd Tester Required: No Is patient in pain?: No [...] Provider FOB Unknown 1966 Mikal Unknown 1969 [facility] Unknown [facility] Const Constitutional: Reports system reviewed and [...] Today N81.2 Plan - Rayna Bazzi NP, TRANSIT VEHICLE INSPECTOR-C: Reviewed S S infection RTO 3 months 08/20/21 1007 <Electronically signed by Rayna Bazzi NP TRANSIT VEHICLE INSPECTOR-C> Date Rayna Bzazi NP TRANSIT VEHICLE INSPECTOR-C Cosigner Signature: Date (if applicable) CC: Belem Hagen ELECTROMECHANICAL EQUIPMENT TESTER Work Phone: Start: 06-12-2021 End: 06-12-2021 Kidney and Bladder Comments: See Note; NOTES: [facility] Imaging Services [address] [address] Kidney and Bladder MR#: [id number] Acct: [id number] Name: ALISTAIR ARECHIGA Rep #: [id number] : 1945 F 75 From: Jem Brice DO PCP: NONA Perea Status: REG CLI Study: Kidney and Bladder Date of Exam: 06/12/21 Exam# [id number] Ordering Dr: Belem Hagen NP STUDY: RENAL [...] Jem Brice DO at 23:02 EDT Tel [phone], Service support , CC: NONA Hagen [employer] Dispatcher: Signed Belem Hagen [facility] Work Phone: Start: 05-21-2021 End: 05-21-2021 Maintenance Pipefitter Office Visit Report Comments: See Note; NOTES: [facility] Emergency Department [address] [place], [place] [address] OFFICE VISIT Date of Service: 05/21/21 MR#: [id number] Acct: [id number] Name: ALISTAIR ARECHIGA Rep #: [id number] : 1945 Provider: NONA ramirez Age/Sex: 75/F [place] [facility] [place]: Signed Intake Vital Signs 05/21/21 09:20 [...] Provider FOB Unknown 1966 Mikal Unknown 1969 [facility] Unknown [address] [facility] ROS Const [...] Status: Chronic Plan - Rayna Bazzi NP, TRANSIT VEHICLE INSPECTOR-C: Reviewed S S infection Patient declines mammograms RTO 3 months 05/21/21 0942 <Electronically signed by Rayna Bazzi NP TRANSIT VEHICLE INSPECTOR-C> Date Rayna Bazzi NP, NP-C Cosigner Signature: Date (if applicable) CC: Belem Hagen CNP Work Phone: Start: 04-14-2021 End: 04-14-2021 Emergency Department Summary Comments: See Note; NOTES: [facility] Medical Records Department [address] [place] [address] Emergency Department Summary 04/14/21 MR#: [id number] Acct: [id number] Name: ALISTAIR ARECHIGA Rep #: [id number] : 1945 75 From: Monet Monaco MD PCP: Belem Hagen NP-C Status:DEP ER Location: ED HPI HPI - Fall History of Present Illness Chief Complaint: Fall Informant: patient Occured/Mechanism Occurred: Days Narrative: Patient presents after falling at the local [employer] store 2 days ago and striking her [...] other injury. She denies shortness of breath. [facility] Medical History GERD (gastroesophageal reflux disease) Hyperlipidemia [...] narrative: Patient was given a dose of Quanah for pain. Rib series with chest x-ray [...] She will be given a prescription for Quanah. Patient had significantly elevated blood pressure on [...] tablet 500 mg PO DAILY RF: 0 Trimo-Cooln Jelly 0.025-0.01 % gel VAGINAL RF: 0 triamcinolone acetonide 0.5 % cream 1 applic topical BID 7 Days Qty: 15 RF: 2 cranberry 500 mg capsule 500 mg PO BID RF: 0 Primary Care Provider: Belem Hagen NP Referrals: Belem Hagen NP, TRANSIT VEHICLE INSPECTOR-C [Primary Care Provider] - 1-2 Weeks Disposition Disposition: Home, self care What to do if you have Problems For any increased pain, shortness of breath, bleeding, nausea or vomiting, chest pain, or any unexpected problems, contact your Primary Care Provider. Call [facility] ([phone]) or report to the closest Emergency Room. Call 911 if necessary. 04/14/21 2603 <Electronically signed by Monet Monaco MD> Cosigner Signature (if applicable): CC: TRANSIT VEHICLE INSPECTOR-C Belem Hagen Signed Belem Hagen CNP Work Phone: Start: 04-14-2021 End: 04-14-2021 Ribs Uni Min 3V w/PA Chest Comments: See Note; NOTES: [facility] Imaging Services [address] [place] [address] Ribs Uni Min 3V w/PA Chest MR#: [id number] Acct: [id number] Name: ALISTAIR ARECHIGA Rep #: [id number] : 1945 F 75 From: Juni Arauz PCP: NONA Perea Status: REG ER Study: Ribs Uni Min 3V w/PA Chest Date of Exam: 04/14 Exam# [id number] Ordering Dr: Monet Monaco MD STUDY: X-RAY [...] EDT Tel , Service support , CC: TRANSIT VEHICLE INSPECTORCandida Hagen; Dr. Monet Monaco MD [employer] Dispatcher: Signed Belem Hagen CNP Work Phone: Start: 02-28-2021 End: 02-28-2021 Dexa Bone Density Study Comments: See Note; NOTES: [facility] Imaging Services [address] [place] [address] Dexa Bone Density Study MR#: [id number] Acct: [id number] Name: ALISTAIR ARECHIGA Rep #: [id number] : 1945 F 75 From: Stew lamb MD PCP: NONA Perea Status: REG CLI Study: Dexa Bone Density Study Date of Exam: 02/28/21 Exam# [id number] Ordering Dr: Belem Hagen NP STUDY: DUAL [...] , Service support , CC: NONA Hagen [employer] Dispatcher: Signed Belem Hagen ELECTROMECHANICAL EQUIPMENT TESTER Work Phone: Start: 02-15-2021 End: 02-15-2021 Maintenance Pipefitter Office Visit Report Comments: See Note; NOTES: [facility] [place] [address] [place] [address] OFFICE VISIT Date of Service: 02/15/21 MR#: [id number] Acct: [id number] Name: ALISTAIR ARECHIGA Rep #: [id number] : 1945 Provider: NONA ramirez Age/Sex: 75/F Location: [facility] Status: Signed Intake Vital Signs 02/15/21 Height 5 ft 2 in 02/15/21 Weight: 177 lb 02/15/21 BMI 32.3 02/15/21 BP 128/80 H Intake Visit Reasons: 3 MO PESSARY CHECK Herd Tester Required: No Accompanied by: self Allergies sulfamethoxazole [...] 02/15/21 @ 10:03 by Rayna Bazzi NP, NONA) Smoking Status: Never smoker alcohol intake: current [...] Provider FOB Unknown 1966 Mikal Unknown 1969 [facility] Unknown [facility] Const Constitutional: Reports system reviewed and [...] N81.2 02/15/21 1003 <Electronically signed by Rayna Bazzi NP TRANSIT VEHICLE INSPECTOR-C> Date Rayna Bazzi NP TRANSIT VEHICLE INSPECTOR-C Cosigner Signature: Date (if applicable) CC: Belem Roemalimargarita Start: 11-16-2020 End: 11-16-2020 Maintenance Pipefitter Office Visit Report Comments: See Note; NOTES: [facility] [address] [place], [place] [address] OFFICE VISIT Date of Service: 11/16/20 MR#: [id number] Acct: [id number] Name: ALISTAIR ARECHIGA Rep #: [id number] : 1945 Provider: NONA ramirez Age/Sex: 74/F [place] [facility] [place]: Signed Intake Vital Signs 11/16/20 Height 5 ft 2 in 11/16/20 Weight: 175 lb 8 oz 11/16/20 BMI 32.1 11/16/20 BP 138/80 H Intake Visit Reasons: 3 MO PESSARY CHECK Herd Tester Required: No Accompanied by: self Is patient [...] (Updated 11/16/20 @ 11:17 by Rayna Bazzi NP, TRANSIT VEHICLE INSPECTOR-C) Smoking Status: Never smoker alcohol intake: current [...] Provider FOB Unknown 1966 Mikal Unknown 1969 [facility] Unknown 1970 [facility] ROS Const Constitutional: [...] N81.2 11/16/20 1117 <Electronically signed by Rayna Bazzi NP TRANSIT VEHICLE INSPECTOR-C> Date Rayna Bazzi NP TRANSIT VEHICLE INSPECTOR-C Cosigner Signature: Date (if applicable) CC: Belem Hagen Start: 08-08-2020 End: 08-08-2020 Maintenance Pipefitter Office Visit Report Comments: See Note; NOTES: [facility] [address] [place] [address] OFFICE VISIT Date of Service: 08/08/20 MR#: [id number] Acct: [id number] Name: ALISTAIR ARECHIGA Rep #: [id number] : 1945 Provider: NONA ramirez Age/Sex: 74/F Location: [facility] Status: Signed Intake Vital Signs 08/08/20 BMI 31.8 08/08/20 Height 5 ft 2 in 08/08/20 Weight: 172 lb 4 oz 08/08/20 BP 136/82 H Intake Visit Reasons: culture and UA Herd Tester Required: No Accompanied by: self Allergies sulfamethoxazole [...] menopausal: Yes Patient : No : [facility] Medical History Hyperlipidemia (Acute) Surgical History H/O tubal ligation (Acute) Family History Father Heart disease CVA (cerebral vascular accident) Social History (Updated 08/08/20 @ 14:20 by Rayna Bazzi TRANSIT VEHICLE INSPECTOR, TRANSIT VEHICLE INSPECTOR-C) Smoking Status: Never smoker alcohol intake: current [...] Bth Weight Gen Labor Lgth Anesthesia Del [facility] Provider FOB Unknown 1966 Mikal Unknown 1969 [facility] Unknown 1970 [facility] ROS Const Constitutional: Reports system reviewed [...] Hopkins on 08/08/20 13:57 Off Ur Spec Norco 1.020 Last Edit by Leia Hopkins on [...] Z96.0 08/08/20 1420 <Electronically signed by Rayna Bazzi TRANSIT VEHICLE INSPECTOR TRANSIT VEHICLE INSPECTOR-C> Date Rayna Bazzi TRANSIT VEHICLE INSPECTOR TRANSIT VEHICLE INSPECTOR-C Cosigner Signature: Date (if applicable) CC: Belem Hagen Start: 07-20-2020 End: 07-20-2020 Maintenance Pipefitter Office Visit Report Comments: See Note; NOTES: [facility] [address] [place] [address] OFFICE VISIT Date of Service: 07/20/20 MR#: [id number] Acct: [id number] Name: ALISTAIR ARECHIGA Rep #: [id number] : 1945 Provider: NONA ramirez Age/Sex: 74/F Location: [facility] Status: Signed Intake Vital Signs 07/20/20 Height 5 ft 2 in 07/20/20 Weight: 174 lb 4 oz 07/20/20 BMI 31.8 07/20/20 BP 140/80 H Intake Visit Reasons: 3 mo Pessary check Herd Tester Required: No Accompanied by: Self Allergies sulfamethoxazole [...] Weight Infant Gen Labor Lgth Anesthesia Del [facility] Provider FO Unknown 1966 Mikal Unknown 1969 [facility] Unknown 1970 [facility] HPI 3 mo Pessary check: Details: [...] Hopkins on 07/20/20 09:43 Off Ur Spec Norco 1.020 Last Edit by Leia Hopkins on [...] Brain without Contrast Comments: See Note; NOTES: [facility] Imaging Services [address] [place] [address] Brain without Contrast MR#: [id number] Acct: [id number] Name: ALISTAIR ARECHIGA Rep #: [id number] : 1945 F 74 From: Faizan Hodges MD PCP: Belem Hagen TRANSIT VEHICLE INSPECTOR-C Status: REG ER Study: Brain without Contrast Date of Exam: 06/13/20 Exam# [id number] Ordering Dr: Abdoulaye Nova DO STUDY: MRI [...] CC: NONA Hagen; Dr. Abdoulaye Nova DO [employer] Dispatcher: Signed Belem Hagen Start: 06-13-2020 End: 06-23-2020 Emergency Department Summary Comments: See Note; NOTES: [facility] Medical Records Department [address] [place] [address] Emergency Department Summary 06/13/20 MR#: [id number] Acct: [id number] Name: ALISTAIR ARECHIGA Rep #: [id number] : 1945 74 From: Abdoulaye Nova DO [...] IT WAS A MILD ITCHINESS IN THE S NO BREATHING PROBLEMS Primary Care Physician: Belem Hagen, ALCIDES-C [Primary Care Provider] - 2 Days Review [...] your Primary Care Provider. Call [facility] ([phone]) or report to the closest Emergency Room. Call 911 if necessary. 06/23/20 1438 <Electronically signed by Abdoulaye Nova DO> Date Abdoulaye Nova DO 06/13/20 1714<Electronically signed by Ruslan Cabello DO> Cosigner Signature (If Indicated): Date Ruslan Cabello DO CC: NONA Hagen Start: 06-13-2020 End: 06-13-2020 CTA Head AND Neck W/ Contrast Comments: See Note; NOTES: [facility] Imaging Services [address] [place] [address] CTA Head AND Neck W/ Contrast MR#: [id number] Acct: [id number] Name: ALISTAIR ARECHIGA MAXIMILIAN Rep #: [id number] : 1945 F 74 From: Stew lamb MD PCP: NONA Perea Status: REG ER Study: CTA Head AND Neck W/ Contrast Date of Exam: Exam# [id number] Ordering Dr: Abdoulaye Nova DO STUDY: CTA [...] through the vertex following intravenous administration of [id number] 100ML. MIP images were reconstructed from the [...] There is no demonstrated aneurysm of the [place] of [place]. There is a 1.1 cm [...] CC: NONA Hagen; Dr. Abdoulaye Nova DO [employer] Dispatcher: Signed Belem Hagen Start: 06-13-2020 End: 06-15-2020 12 Lead EKG Comments: See Note; NOTES: [facility] Cardiovascular Services [address] [facility] [place] [address] 12 Lead EKG 06/13/20 0802 MR#: [id number] Acct: [id number] Name: ALISTAIR ARECHIGA Rep #: [id number] : 1945 74 From: Luis Carlos Zuluaga [...] Normal sinus rhythm Normal ECG Confirmed by LUIS CARLOS ZULUAGA MD ([id number]), health editor DESHAWN MICHAELS ([id number]) on 06/15/2020 9:38:17 AM Referred By: CL Confirmed By:LUIS CARLOS ZULUAGA MD 06/15/20 0938 Date Luis Carlos Zuluaga MD CC: NONA Hagen; Dr. Abdoulaye Nova DO Signed Belem Hagen Start: 06-13-2020 End: 06-13-2020 Chest 1 View (Portable) Comments: See Note; NOTES: [facility] Imaging Services [address] [place] [address] Chest 1 View (Portable) MR#: [id number] Acct: [id number] Name: ALISTAIR ARECHIGA Rep #: [id number] : 1945 F 74 From: Stew lamb MD PCP: NONA Perea Status: REG ER Study: Chest 1 View (Portable) Date of Exam: 06/13/20 Exam# [id number] Ordering Dr: Abdoulaye Nova DO STUDY: X-RAY [...] of left basilar atelectasis. Electronically Signed: Stew Hill, at 9:33 EDT , Service support , CC: NONA Hagen; Dr. Abdoulaye Nova DO [employer] Dispatcher: Signed Belem Hagen Start: 04-20-2020 End: 04-20-2020 Maintenance Pipefitter Office Visit Report Comments: See Note; NOTES: [facility] [address] [place], [place] [address] OFFICE VISIT Date of Service: 04/20/20 MR#: [id number] Acct: [id number] Name: ALISTAIR ARECHIGA Rep #: [id number] : 1945 Provider: ALCIDES reyes Age/Sex: 74/F [place] [facility] [place]: Signed Intake Vital Signs 04/20/20 Height 5 ft 2 in 04/20/20 Weight: 175 lb 04/20/20 BP 120/80 Intake Visit Reasons: 3 MO FU Herd Tester Required: No Is patient in pain?: No [...] Social History (Updated 04/20/20 @ 13:42 by NONA May) Smoking Status: Never smoker [...] Provider FOB Unknown 1966 Mikal Unknown 1969 [facility] Unknown [address] [facility] HPI 3 MO FU: Details: ALISTAIR ARECHIGA [...] Date (if applicable) CC: Belem Hagen Start: 01-10-2020 End: 01-10-2020 Maintenance Pipefitter Office Visit Report Comments: See Note; NOTES: [facility] [address] [place] [address] OFFICE VISIT Date of Service: 01/10/20 MR#: [id number] Acct: [id number] Name: ALISTAIR ARECHIGA Rep #: [id number] : 1945 Provider: ALCIDES Bazzi Age/Sex: 74/F Location: [facility] Status: Signed Intake Vital Signs01/10/20 Height 5 ft 2 in 01/10/20 Weight: 175 lb 01/10/20 BMI 32.0 01/10/20 BP 140/100 H 10/05/19 BMI 31.8 Intake Visit Reasons: 3 MO FU Chief Complaint: pessary check Herd Tester Required: No Is patient in pain?: No [...] social history: Vincent- Retired HPI 3 MO FU: Details: ALISTAIR ARECHIGA is a 74 year old who presents for pessary check. Denies concerns Pregancy History 3 Elective abortions Hx Para 3 Spontaneous abortions Past Pregnancies Del. DatName [place]/WeeksOutcome Route [facility] LocaProviderFOB e ht en ia tn ROS [...] CC: Belem Hagen Start: 07-06-2019 End: 07-06-2019 Maintenance Pipefitter Office Visit Report Comments: See Note; NOTES: [facility] Emergency Department [address] [place] [address] OFFICE VISIT Date of Service: 07/06/19 MR#: [id number] Acct: [id number] Name: ALISTAIR ARECHIGA Rep #: [id number] : 1945 Provider: ALCIDES Bazzi Age/Sex: 73/F [place] [facility] [place]: Signed Intake Vital Signs07/06/19 Body Mass Index (BMI) 32.5 07/06/19 Height 5 ft 2 in 07/06/19 Weight: 175 lb 6 oz 07/06/19 Body Mass Index (BMI) 32.1 07/06/19 Blood Pressure 120/80 Intake Visit Reasons: 3 mo fu Herd Tester Required: No Is patient in pain?: No [...] Social History (Updated 07/06/19 @ 09:49 by Rayna Bazzi, ALCIDES-C) Smoking Status: Never smoker alcohol intake: current details: social substance use type: does not use caffeine: Yes frequency: 1-2 times per week seatbelt use: always do you feel safe at home: Yes 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 HPI 3 mo fu: Details: ALISTAIR ARECHIGA is a 73 year old who presents for pessary check. Denies concerns. Pregancy History 3 Elective abortions Hx Para 3 Spontaneous abortions Past Pregnancies Del. DatName GA/WeeksOutcome Route [facility] LocaProviderFOB e ht en th ia tn [...] <Electronically signed by Rayna CASTELLANO> Date Rayna James Signature: Date (if applicable) CC: Belem Hagen Start: 04-06-2019 End: 04-06-2019 Maintenance Pipefitter Office Visit Report Comments: See Note; NOTES: [facility] [address] [place] [address]. [address] [place] [address] OFFICE VISIT Date of Service: 04/06/19 MR#: [id number] Acct: [id number] Name: ALISTAIR ARECHIGA Rep #: [id number] : 1945 Provider: ALCIDES Bazzi Age/Sex: 73/F Location: [facility] Status: Signed Intake Vital Signs04/06/19 Height 5 ft 2 in 04/06/19 Weight: 177 lb 04/06/19 Body Mass Index (BMI) 32.3 04/06/19 Blood Pressure 122/76 H Intake Visit Reasons: 3 month follow up Herd Tester Required: No Is patient in pain?: No [...] 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 HPI 3 month follow up : Details: ALISTAIR [...] CC: Belem Hagen Start: 01-05-2019 End: 01-05-2019 Maintenance Pipefitter Office Visit Report Comments: See Note; NOTES: [facility] [address] [place] [address] OFFICE VISIT Date of Service: 01/05/19 MR#: [id number] Acct: [id number] Name: ALISTAIR ARECHIGA Rep #: [id number] : 1945 Provider: ALCIDES Bazzi Age/Sex: 73/F Location[place] [facility] [place]: Signed Intake Vital Signs01/05/19 Height 5 ft 2 in 01/05/19 Weight: 178 lb 2 oz 01/05/19 Body Mass Index (BMI) 32.5 01/05/19 Blood Pressure 144/90 H Intake Visit Reasons: 3 MONTH FOLLOW UP Herd Tester Required: No Is patient in pain?: No [...] home: Yes 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 [facility] 3 MONTH FOLLOW UP : Details: ALISTAIR [...] CC: Belem Hagen Start: 10-05-2018 End: 10-05-2018 Maintenance Pipefitter Office Visit Report Comments: See Note; NOTES: [facility] [address] [place] [address]. [address] [place], [place] [address] OFFICE VISIT Date of Service: 10/05/18 MR#: [id number] Acct: [id number] Name: ALISTAIR ARECHIGA Rep #: [id number] : 1945 Provider: ALCIDES Bazzi Age/Sex: 72/F Location: [facility] Status: Signed Intake Vital Signs10/05/18 Height 5 ft 2 in 10/05/18 Weight: 177 lb 4 oz 10/05/18 Body Mass Index (BMI) 32.4 10/05/18 Blood Pressure 130/80 H Intake Visit Reasons: 3 month FU Herd Tester Required: No Is patient in pain?: No [...] home: Yes 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 [facility] 3 month FU: Details: ALISTAIR ARECHIGA is [...] N81.2 10/05/18 0920 <Electronically signed by Rayna MCCORMACKC> Date Rayna James Signature: Date (if applicable) CC: Belem Hagen Start: 08-06-2018 End: 08-10-2018 Dexa Bone Density Study Comments: See Note; NOTES: [facility] Imaging Services [address] [place] [address] Dexa Bone Density Study MR#: [id number] Acct: [id number] Name: ALISTAIR ARECHIGA Rep #: [id number] : 1945 F 72 From: Stew Hill MD PCP: Belem Hagen NP Status: REG CLI Study: Dexa Bone Density Study Date of Exam: 08/06/18 Exam# [id number] Ordering Dr: Belem Hagen STUDY: DUAL ENERGY [...] Stew Hill MD at 8:48 EDT Tel [phone], Service support , CC: Belem Hagen NP [employer] Dispatcher: Signed Belem Hagen Work Phone: Start: 04-13-2018 End: 04-13-2018 Maintenance Pipefitter Office Visit Report Comments: See Note; NOTES: [facility] [address] [place] [address] OFFICE VISIT Date of Service: 04/13/18 MR#: [id number] Acct: [id number] Name: ALISTAIR ARECHIGA Rep #: [id number] : 1945 Provider: ALCIDES Bazzi Age/Sex: 72/F Location[place] [facility] [place]: Signed Intake Vital Signs04/13/18 Height 5 ft 1 in 04/13/18 Weight: 173 lb 2 oz 04/13/18 Body Mass Index (BMI) 32.7 04/13/18 Blood Pressure 130/80 Intake Visit Reasons: pessary check Chief Complaint: Pessary Check Herd Tester Required: No Is patient in pain?: No [...] Yes 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 HPI pessary check: Details: ALISTAIR ARECHIGA is [...] Problems 1. Encounter for pessary maintenance Z46.89 Plan Reviewed S AND S infection RTO 3 months, prn with problems Coding Level of Care Code Off vis,est,level 3 Diagnoses Encounter for pessary maintenance Z46.89 04/13/18 1020 <Electronically signed by Rayna CASTELLANO> Date Rayna CASTELLANO Cosigner Signature: Date (if applicable) CC: Belem Hagen Start: 01-19-2018 End: 01-19-2018 Maintenance Pipefitter Office Visit Report Comments: See Note; NOTES: [facility] [address] [place], [place] [address] OFFICE VISIT Date of Service: 01/19/18 MR#: [id number] Acct: [id number] Name: ALISTAIR ARECHIGA Rep #: [id number] : 1945 Provider: ALCIDES Bazzi Age/Sex: 72/F [place] [facility]: Signed Intake Vital Signs01/19/18 Height 5 ft 1 in 01/19/18 Weight: 169 lb 4 oz 01/19/18 Body Mass Index (BMI) 31.9 01/19/18 Blood Pressure 138/73 Intake Visit Reasons: follow up Chief Complaint: Pessary Check Herd Tester Required: No Is patient in pain?: No [...] Fri nights, trimosan gel 1 derrick every Wed night Reviewed S AND S infection RTO 3 months, prn problems Coding Level of Care Code Off vis,est,level 3 Diagnoses Pessary maintenance Z46.89 01/19/18 1014 <Electronically signed by Rayna CASTELLANO> Date Rayna CASTELLANO Cosigner Signature: Date (if applicable) CC: Belem Jyothibessy Start: 12-17-2017 End: 12-17-2017 Maintenance Pipefitter Office Visit Report Comments: See Note; NOTES: [facility] [address] [place], [place] [address] OFFICE VISIT Date of Service: 12/17/17 MR#: [id number] Acct: [id number] Name: ALISTAIR ARECHIGA Rep #: [id number] : 1945 Provider: ALCIDES Bazzi Age/Sex: 72/F [place] [facility] [place]: Signed Intake Vital Signs12/17/17 Height 5 [...] CC: Belem Hagen Start: 12-17-2017 End: 12-17-2017 Maintenance Pipefitter Office Visit Report Comments: See Note; NOTES: [facility] [address] [place] [address] OFFICE VISIT Date of Service: 12/11/17 MR#: [id number] Acct: [id number] Name: ALISTAIR ARECHIGA Rep #: [id number] : 1945 Provider: ALCIDES Bazzi Age/Sex: 72/F Location: [facility] Status: Signed Intake Vital Signs12/11/17 Height 5 ft 1 in 12/11/17 Weight: 168 lb 6 oz 12/11/17 Body Mass Index (BMI) 31.8 12/11/17 Blood Pressure 145/71 Intake Visit Reasons: PROLAPSED BLADDER Chief Complaint: Prolapsed bladder Herd Tester Required: No Is patient in pain?: No [...] recurrent UTI and is seeing Cheri Cadet TRANSIT VEHICLE INSPECTOR. States prolapse has worsened over last 6 [...] uterovaginal prolapse N81.2 Additional Codes Pessary Insertion (03018) 12/17/17 0815 <Electronically signed by Rayna CASTELLANO> Date Rayna CASTELLANO Cosigner Signature: Date (if applicable) CC: Belem Hagen Start: 11-14-2017 End: 11-14-2017 Kidney and Bladder Comments: See Note; NOTES: [facility] Imaging Services [address] [place] [address] Kidney and Bladder MR#: [id number] Acct: [id number] Name: ALISTAIR ARECHIGA Rep #: [id number] : 1945 F 71 From: Veronica Isaac MD PCP: Belem Hagen NP Status: REG CLI Study: Kidney and Bladder Date of Exam: 11/14/17 Exam# [id number] Ordering Dr: Larry Coleman MD STUDY: RENAL [...] in the urinary bladder. Electronically Signed: Veronica Colinlucerotimbo, at 14:23 EST Tel , Service support , CC: Belem Hagen TRANSIT VEHICLE INSPECTOR; Larry Coleman MD Concrete Products Dispatcher: Signed Belem Hagen Start: 11-06-2016 End: 11-06-2016 Kidney and Bladder Comments: See Note; NOTES: [facility] Imaging Services [address] [place] [address] Verdana 4d Kidney and Bladder MR#: [id number] Acct: [id number] Name: ALISTAIR ARECHIGA Rep #: [id number] : 1945 F 70 From: Stew Hill MD PCP: Robby Mckenzie Status: REG CLI Study: Kidney and Bladder Date of Exam: 11/06/16 Exam# [id number] Ordering Dr: Robby Mckenzie STUDY: RENAL ULTRASOUND [...] Stew Hill MD at 15:26 EST Tel [phone], Service support [phone], CC: Robby Mckenzie [employer]crete Products Dispatcher: Signed Robby Mckenzie Work Phone: Start: 04-23-2016 End: 04-23-2016 Chest 1 View (Portable) Comments: See Note; NOTES: [facility] Imaging Services [address] [facility] [place] [address] Verdana 4d Chest 1 View (Portable) MR#: [id number] Acct: [id number] Name: ALISTAIR ARECHIGA Rep #: [id number] : 1945 F 70 From: Stew Hill MD PCP: Idalia Ellis DO Status: REG ER Study: Chest 1 View (Portable) Date of Exam: 04/23/16 Exam# [id number] Ordering Dr: Martinez Mehta MD STUDY: X-RAY [...] Stew Hill MD at 12:40 EDT Tel [phone], Service support [phone], RAD/Chest 1 View (Portable) IMPRESSION: No acute abnormality is seen. Electronically Signed: Stew Hill MD at 12:40 EDT Tel [phone], Service support [phone], CC: Idalia Ellis DO; Martinez Mehta MD [employer] Dispatcher: Signed Belem Hagen Start: 03-11-2016 End: 03-11-2016 Ecg routine ecg w/least 12 lds w/i&r [MEASUREMENTS ANALYSIS] Date of Test: 03/11/2016 10:15:53; Heart Rate: 70; ND Interval: 142; QRS: 98; QT Interval: 394; Corrected QT Interval (QTc): 411; P Wave [place]: 32; QRS Wave [place]: -11; T Wave [place]: 29; Blood Pressure: 130/80 [ECG DIAGNOSTIC STATEMENTS] [...] Ligation of fallopian tube M organ Daniel PHYSICIAN ASSISTANT Ligation of fallopian tube P deepthi Goodman MA Ligation of fallopian tube T racy Cara PHYSICIAN ASSISTANT Ligation of fallopian tube T racy Cara PHYSICIAN ASSISTANT Ligation of fallopian tube A ngela Slarb PHYSICIAN ASSISTANT Ligation of fallopian tube K tani Parry SENIOR BUSINESS ANALYST Ligation of fallopian tube A ngela Slarb PHYSICIAN ASSISTANT Ligation of fallopian tube A ngela Slarb PHYSICIAN ASSISTANT Ligation of fallopian tube D akota Elke PHYSICIAN ASSISTANT Ligation of fallopian tube C carlos Whelan SENIOR BUSINESS ANALYST Ligation of fallopian tube D R VERONICA CARLISLE MD Screening for osteoporosis [place] for osteoporosis (Renamed from Encounter for screening for osteoporosis) Belem Hagen Screening for osteoporosis [place] for osteoporosis (Renamed from Encounter for screening for osteoporosis) Belem Hagen ELECTROMECHANICAL EQUIPMENT TESTER Work Phone: Urine culture TRANSIT VEHICLE INSPECTOR-C Belem cagle TRANSIT VEHICLE INSPECTOR Work Phone: Plan of Treatment Date Care Activity Detail Author Start: 07-21-2025 [facility] Start: 04-23-2025 [facility] Start: 04-23-2025 [facility] Start: 04-11-2025 [facility] Start: 04-07-2025 [facility] Start: 04-04-2025 [facility] Start: 04-04-2025 [facility] Start: 03-16-2025 Patient referral [facility] Work Phone: Start: 03-09-2025 Patient referral [facility] Work Phone: Start: 02-22-2025 Bx/exc lymph node open deep axillary node BIOPSY/REMOVAL LYMPH NODES [facility] Start: 02-22-2025 Mastectomy partial PARTIAL MASTECTOMY [facility] Start: 02-22-2025 Patient discharge [facility] Start: 01-28-2025 Anes integ extremities ant trunk & perineum nos ANESTH SKIN EXT/PER/ATRUNK [facility] Start: 01-28-2025 Exc cyst/aberrant breast tissue open 1/> lesion REMOVAL OF BREAST LESION [facility] Start: 01-28-2025 Patient discharge [facility] Start: 10-03-2023 Procedure Education [facility]; [...] id isolate ea urine URINE JESÚS CULTURE-IDENTIFICATN (48242) [facility] Work Phone: Start: 12-24-2022 Procedure Education [facility]; [facility] Work Phone: Start: 11-07-2022 Culture bct isol&prsmptv id isolate ea urine URINE JESÚS CULTURE-IDENTIFICATN (78376) [facility]; [facility] Work Phone: Start: 11-07-2022 Procedure Education [facility] Work Phone: Start: 09-24-2022 Procedure Education [facility]; [facility] Work Phone: Start: 09-24-2022 Culture bct isol&prsmptv id isolate ea urine URINE JESÚS CULTURE-IDENTIFICATN (32539) [facility]; [facility] Work [...] Work Phone: Comment on above: Fax to [facility] for Jan 25 Start: 12-11-2021 Blood count complete auto&auto difrntl wbc [facility] Work Phone: Comment on above: Jan 25, 2022 Start: 12-11-2021 Assay of thyroid stimulating hormone tsh [facility]; [facility] Work Phone: Comment on above: Jan 25, 2022, Fax to [facility] Start: 12-05-2021 Blood count complete auto&auto [...] 05-21-2021 Free T4 [Mass/Vol] T4, FREE (THYROXINE) (32955) [facility]; [facility] Work Phone: Start: 05-21-2021 Assay of triiodothyronine t3 free [facility]; [facility] Work Phone: Start: 05-21-2021 Free T3 [Mass/Vol] T3, FREE (TRIDOTHYRONINE) (81790) [facility]; [facility] Work Phone: Start: 05-21-2021 Assay of thyroid stimulating hormone tsh [facility]; [facility] Work Phone: Start: 05-21-2021 TSH Qn TSH (THYROID STIMULATING HORMONE) (33109) [facility]; [facility] Work [...] id isolate ea urine URINE JESÚS CULTURE-IDENTIFICATN (06050) [facility]; [facility] Work [...] 10-23-2020 TSH Qn TSH (THYROID STIMULATING HORMONE) (47727) [facility] Work Phone: Comment on above: January 2021 Start: 10-23-2020 HbA1c (Bld) [Mass fraction] HGB A1C (59848) [facility] Work Phone: Comment on [...] id isolate ea urine URINE JESÚS CULTURE-IDENTIFICATN (89017) [facility] Work Phone: Start: 12-02-2018 [...] T4 free mass conc T4, FREE (THYROXINE) (09437) [facility] Work Phone: Start: 08-07-2016 Assay of triiodothyronine t3 free [facility]; [facility] Work Phone: Start: 08-07-2016 T3 free mass conc T3, FREE (TRIDOTHYRONINE) (40047) [facility] Work Phone: Start: 08-06-2016 [...] 08-06-2016 Thyrotropin Qn TSH (THYROID STIMULATING HORMONE) (07826) [facility] Work Phone: Start: 08-06-2016 [...] Glucose mass conc Blood Glucose , Office (49283) [facility] Work Phone: Start: 05-02-2016 [...] Hemoglobin A1c/Hemoglobin.total mass fraction (Bld) HGB A1C (13418) [facility] Work Phone: Start: 03-11-2016 [...] time (Bld) PTT (Activated Partial Thromboplastin Time) (04065) [facility] Work Phone: Start: 11-09-2013 Thromboplastin time partial plasma/whole blood [facility] Work Phone: Start: 11-09-2013 Prothrombin time [facility] Work Phone: Start: 11-09-2013 Prothrombin time (PT) Coag time (PPP) PT (Prothrobim Time) (47698) [facility] Work Phone: Start: 11-09-2013 [...] time (Bld) PTT (Activated Partial Thromboplastin Time) (61320) [facility] Work Phone: Start: 06-30-2013 Thromboplastin time partial plasma/whole blood [facility] Work Phone: Start: 06-30-2013 Prothrombin time [facility]; [facility] Work Phone: Start: 06-30-2013 Prothrombin time (PT) Coag time (PPP) PT (Prothrobim Time) (01636) [facility] Work Phone: Start: 06-30-2013 Lipid panel [facility] Work Phone: Start: 06-30-2013 Blood count manual cell count each [facility] Work Phone: Start: 06-30-2013 Comprehensive metabolic panel [facility] Work Phone: Start: 02-18-2012 Lipid panel [facility] Work Phone: Start: 01-27-2012 Cytp cerv/vag auto thin layer prep mnl screen [facility] Work Phone: Microscopic urinalysis [facility] Organism count, microscopic method [facility] Patient referral [facility] Work Phone: Urinalysis, blood, qualitative [facility] Urine microscopy: epithelial cells [facility] White blood cell count [facility] Work Phone: [facility] [...] Immunizations Immunization Date Immunization Notes Care Provider [facility] 12-10-2024 SARS-CoV-2 (COVID-19 ) [id number] DR VERONICA CARLISLE MD [facility] 10-24-2023 SARS-CoV-2 (COVID-19 ) mRNA-[id number] DR VERONICA CARLISLE MD [facility] 10-20-2021 SARS-CoV-2 (COVID-19 ) mRNA-[address] VERONICA CARLISLE MD [facility] 04-06-2021 SARS-CoV-2 (COVID-19 ) mRNA-[address] VERONICA CARLISLE MD [facility] 03-10-2021 SARS-CoV-2 (COVID-19 ) mRNA-[address] VERONICA CARLISLE MD [facility] Payers Date Payer Category Payer Self-pay [id number] 2023 Private Health Insurance [id number] 2014 Private Health Insurance [facility] [id number] 2011 Unknown [id number] 1945 Unknown [id number] 2.16.8 40.1.311929.3.579.2.1069 1945 Unknown [id number] 2.16.84 0.1.411925.3.579.2.716 1945 Unknown [id number] 2.16. 840.1.858264.3.579.2.627 1945 Unknown [id number] 2.16. 840.1.392779.3.579.2.627 1945 Unknown [id number] 2.16. 840.1.598377.3.579.2.627 Unknown Unknown [id number] 2.16.8 40.1.298226.3.579.2.462 Unknown [id number] 2.16.8 40.1.532263.3.579.2.462 Unknown [id number] 2.16.8 40.1.381913.3.579.2.462 Unknown [id number] 2.16.8 40.1.738921.3.579.2.462 Unknown [id number] 2.16.8 40.1.329633.3.579.2.462 Unknown [id number] 2.16.8 40.1.291652.3.579.2.462 Unknown [id number] 2.16.8 40.1.606385.3.579.2.462 Unknown [id number] 2.16.8 40.1.557890.3.579.2.462 Unknown [id number] 2.16.8 40.1.462377.3.579.2.462 Unknown [id number] 2.16.8 40.1.493660.3.579.2.462 Unknown [id number] 2.16.8 40.1.006864.3.579.2.462 Unknown [id number] 2.16.8 40.1.494215.3.579.2.462 Unknown [id number] 2.16.8 40.1.130677.3.579.2.462 Unknown [id number] 2.16.8 40.1.104653.3.579.2.462 Unknown [id number] 2.16.8 40.1.193446.3.579.2.462 Unknown [id number] 2.16.8 40.1.827905.3.579.2.462 Unknown [id number] 2.16.8 40.1.714648.3.579.2.462 Unknown [id number] 2.16.8 40.1.007442.3.579.2.462 Unknown [id number] 2.16.8 40.1.310655.3.579.2.462 Unknown [id number] 2.16.8 40.1.821694.3.579.2.462 Unknown [id number] 2.16.8 40.1.820391.3.579.2.462 Unknown [id number] 2.16.8 40.1.247703.3.579.2.462 Unknown [id number] 2.16.8 40.1.401069.3.579.2.462 Unknown [id number] 2.16.8 40.1.546380.3.579.2.462 Unknown [id number] 2.16.8 40.1.954593.3.579.2.462 Unknown [id number] 2.16.8 40.1.820665.3.579.2.462 Unknown [id number] 2.16.8 40.1.265092.3.579.2.462 Unknown [id number] 2.16.8 40.1.125159.3.579.2.462 Unknown [id number] 2.16.8 40.1.528699.3.579.2.462 Unknown [id number] 2.16.8 40.1.736460.3.579.2.462 Unknown [id number] 2.16.8 40.1.531146.3.579.2.462 Unknown [id number] 2.16.8 40.1.415773.3.579.2.462 Unknown [id number] 2.16.8 40.1.629858.3.579.2.462 Unknown [id number] 2.16.8 40.1.969498.3.579.2.462 Unknown [id number] 2.16.8 40.1.615556.3.579.2.462 Unknown [id number] 2.16.8 40.1.254808.3.579.2.462 Unknown [id number] 2.16.8 40.1.567929.3.579.2.462 Unknown [id number] 2.16.8 40.1.088910.3.579.2.462 Unknown [id number] 2.16.8 40.1.593980.3.579.2.462 Unknown [id number] 2.16.8 40.1.748398.3.579.2.462 Unknown [id number] 2.16.8 40.1.711490.3.579.2.462 Social History Date Type Detail Facility Start: 09-27-2025 Alcohol Use Never smoker [facility] Work Phone: Comment on above: occasional worked at [employer]- retired- now works with [employer] Tobacco use: Never smoker. [facility] Work Phone: Tobacco use: Tobacco use: [facility] Work Phone: Start: 02-28-2022 End: 01-27-2024 Tobacco smoking status NHIS Unknown if ever smoked [facility] Start: 06-13-2020 None [facility] Start: 06-13-2020 Spouse/ Signif icant Other [facility] Start: 04-14-2021 Non-smoker [facility] Start: 1945 Sex Assigned At Female [facility] Start: 02-15-2025 End: 08-29-2025 Tobacco smoking status NHIS Never smoked tobacco (finding) [facility] Start: 02-22-2025 End: 08-16-2025 Sex Female (finding) [facility] Sexual Orientation Geeta Tank davies [facility] Sex Female [facility] Social / personal history observable (observable entity) [facility] Start: 09-27-2025 End: 09-27-2025 Not applicable (qualifier value) [facility] NEGATED: Highlighted row Not [facility] Medical Equipment Procedure Code Equipment Code Equipment Origin al Text Equipment Identifier Dates Lumpectomy, breast, bilateral, after needle localization, with bilateral sentinel and Ligation clip, metallic ()[id number] FDA Start: 02-22-2025 Lumpectomy, breast, bilateral, after needle localization, with bilateral sentinel and Ligation clip, metallic ()[id number] FDA Start: 02-22-2025 Goals Date Patient Goal Desired Activity /State Functional Status Date Assessment Result Facility 09-29-2025 Functional Status Room check performed [facility] 09-29-2025 Functional Status Independent [facility] 09-29-2025 [facility] 09-29-2025 Functional Status [facility] 09-28-2025 Functional Status [facility] 09-28-2025 Functional Status [facility] 09-28-2025 [facility] 09-28-2025 Functional Status [facility] 09-28-2025 Functional Status left thigh high [facility] 09-28-2025 Functional Status [facility] 09-28-2025 [facility] 09-27-2025 [facility] Functional Status [facility] 09-27-2025 Functional Status Split level home [place] 09-27-2025 Functional Status None [facility] 09-27-2025 Functional Status ice on, tension pillow in place [facility] 09-27-2025 Functional Status Maintained [facility] Mental Status Date Assessment Result Facility 09-29-2025 Mental Status Oriented x 4 [facility] 09-29-2025 Mental Status [facility] 09-28-2025 Mental Status [facility] 09-28-2025 Mental Status [facility] 07-21-2025 Cognitive function Voice/Name [facility] Work Phone: 04-23-2025 Cognitive function Level Of Cons ciousness Awake;Alert;Appropriate;Follo Commands [facility] Work Phone: 04-11-2025 Cognitive function Level Of Cons ciousness Awake;Alert;Appropriate;Follo ws Commands [facility] Work Phone: 04-07-2025 Cognitive function Level Of Cons ciousness Awake;Alert;Appropriate [facility] Work Phone: 04-04-2025 Cognitive function Voice/Name [facility] Work Phone: 02-22-2025 Cognitive function Voice/Name;Touch/Shaki ng [facility] Work Phone: 01-28-2025 Cognitive function Voice/Name [facility] Work Phone: 03-10-2023 Cognitive function Voice/Name [facility] Work Phone: 03-09-2023 Cognitive function Voice/Name [facility] Work Phone: 05-16-2022 Cognitive function Level Of Cons ciousness Awake;Alert;Appropriate;Follo ws Commands [facility] Work Phone: 02-28-2022 Cognitive function Level Of Cons ciousness Awake;Alert [facility] Work Phone: Clinical Notes 03-09-2023 to 09-29-2025 [...] was admitted to the second floor at [facility]. The patient's pain was managed with the [...] physical therapy established. Patient will follow-up with [facility] per postop instructions. Allergies Augmentin Rash Bactrim Rash sulfa drugs Rash Procedures Robotic assisted left total knee arthroplasty Consults Consult to Anesthesia - Ordered -- 09/27/25 7:30:00 EDT, surgery pending, ADDUCTOR CANAL NERVE BLOCK TO BE PLACED IN PRE OP BY ANESTHESIA FOR POST OP PAIN CONTROL Consult to Physician - Ordered -- 09/27/25 12:31:00 EDT, BRITTANY ARREOLA APRN-ELECTROMECHANICAL EQUIPMENT TESTER, Routine, ok to see tomorrow, Constant order, Medical physician. Objective Vitals and Measurements T: 37.0 C (Oral) TMIN: 36.6 C (Oral) TMAX: 37.0 C (Oral) HR: 82 (Monitored) RR: 14 BP: 148/59 SpO2: 94% Weight Dosing Weight: 77.3 kg (09/27/25) Dosing Weight: 77.3 kg (09/27/25) Vital signs stable, afebrile SCD's and KELYL Hose in place bilaterally Patient is able [...] a day. Follow Up Follow Up with [facility] When:09/30/2025 10:00 AM EDT Where:[address] [place] [phone] Additional Information: This is your first physical therapy appointment. Follow-up as scheduled. Follow Up with AKIKO HENRY PA-C, Orthopedic When:10/11/2025 10:30 AM EST Where:[address], [address] [facility] [place] [address] [phone] Additional Information: This is your post-op appointment. [...] Discharge Disposition Stable Digitally Signed by KUNAL CONTRREAS PA-C on 09/29/2025 02:38 PM [facility] 09-29-2025 Note Discharge Instructions Thank you for allowing [facility] to assist you with your healthcare needs. The following is important discharge information regarding your hospital visit. Your Care Team Dr Russel Carlisle Your Diagnosis Breast CA Hypertension Mild renal insufficiency Osteoarthritis Status post total left knee replacement What to do next Follow Up Appointments Follow Up with [facility] When:09/30/2025 10:00 AM EDT Where:[address] [place] [phone] Additional Information: This is your first physical therapy appointment. Follow-up as scheduled. Follow Up with AKIKO HENRY PA-C, Orthopedic When:10/11/2025 10:30 AM EST Where:[address] [facility] [address] [facility] [place] [phone] Additional Information: This is your post-op appointment. [...] for as needed for pain Pickup at [facility] 09/29/25 New rivaroxaban (Xarelto 10 mg oral tablet) 1 tab(s) by mouth Once a day Status post total left knee replacement Breast CA Duration: 12 Days Take for 2 weeks postoperatively for DVT prophylaxis due to hormone therapy. Pickup at [facility] 09/29/29 0929AM Changed ALPRAZolam (ALPRAZolam 0.5 mg oral tablet) 1 tab(s) by mouth Once a day as needed for for anxiety NA Unchanged amLODIPine (amLODIPine 5 mg oral tablet) 1 tab(s) by mouth Once a day 09/29/25 0929AM Unchanged anastrozole (anastrozole 1 mg oral tablet) 1 tab(s) by mouth Every day 09/29/25 09 Unchanged ascorbic acid (Vitamin C 500 mg [...] mouth Once a day before a meal 09/29/25928AM Unchanged sertraline (Zoloft 50 mg oral tablet) 1 tab(s) by mouth Every day 09/29/25 09AM Unchanged vitamin E (vitamin E 45 mg oral capsule) 1 cap by mouth Once a day NA Pharmacy Information [facility]: [phone] [phone] Please take this list to your next doctor s visit. Bring all medications you take, including over the counter medications, herbals and other supplements with you to your doctor s visit. Patients and families are reminded to discard old lists and to update any records with all medication providers or retail pharmacies. Education Materials [facility] Post-operative Instructions PLEASE FOLLOW [facility] POST-OP INSTRUCTIONS GIVEN WATCH FOR SIGNS OF INFECTION: call the office ([phone]) if experencing any of the following: (Usually [...] on your follow up instructions. Form: 338A (29323) R: 04/06 Additional Information VACCINATE! IT SAVES LIVES! Members of the community who have not yet received the COVID-19 vaccine and would like to receive it can visit one of [facility] vaccine clinics. There are many vaccine clinic locations within the [facility]. For locations and available times, please visit https://gettheshot.coronavirus.o hio.gov/. It is important to note that some COVID mobile vaccine clinics are held outdoors and may be canceled in rainy or stormy conditions. To learn more about pediatric vaccinations (ages 5-11), we invite you to visit the [facility] webpage. https://www.[facility].org/p ages/1435-Mheiy-Zrgjeydkyhs-Freq bqrkai-Zhrzz-Owueewhsf.html To learn more about the COVID-19 vaccine, we invite you to visit the CDC website for a list of frequently asked questions.https://www.cdc.gov/co ronavirus/2019-ncov/vaccines/faq .html [facility] Patient Portal Access Instructions: Stay connected with your healthcare team and access your personal medical information anytime with the [facility] Patient Portal. Please follow the directions below to create your [facility] account: 1.Access the email account you provided upon registration to the hospital/physician office.2.Look for an invitation email from [facility].3.Open the email and access the invitation link: Accept Invitation to [facility].4.Fill in the required pepper to create your account. To access your account, visit [employer] or scan the Applika code above. Click the blue button labeled "Access Patient Portal" and then log in with the username [...] you will allow to register on the [facility] Patient Portal for access to your information. You can also access the [facility] Patient Portal on the [facility] derrick. Simply click on "Patient Portal" and then log into your account. If you would like to receive a full copy of your medical records, please contact the [facility] Medical Records Department by calling [phone], Friday through Friday between 8 a.m. and [...] Call your local pharmacy or go to http://bit.Etalia/5Q3Ez9w to find one close to you.3.Make use of household items: Use cat litter or old coffee grounds to dispose medications if other options are not available. Mix your drugs with these household products, seal them in an airtight container and throw it into the garbage. Call [facility]: [phone] to be sure your drugs can be [...] a CHART COPY. Signatures Patient Education Materials [address] [place] [address] Post-op Instruction 07/2017 (42218) Medication Leaflets My discharge plan and instructions have been reviewed and explained to me and ISOFIA JANET E understand my current condition and have read and understand these discharge instructions. I have received a written copy of the plan/instructions. If I have questions, I am aware that I should contact my doctor. Patient/Analytics Intern Signature: Date/Time: Relationship to Patient: Witness Name/Signature: Date/Time: [facility] 09-29-2025 Note Date of Service September 29, [...] concerns or questions. I have reviewed the [place] Automated Rx Reporting System (OARRS) report for [...] KUNAL CONTRERAS PA-C on 09/29/2025 02:23 PM [facility] 09-28-2025 Note Date of Service 09/28/2025 Reason for Consultation Medical management Referring Physician Dr. Carlisle History of Present Illness 79-year-old female with past medical history significant for breast cancer s/p left partial mastectomy, GERD, HLD, vertigo, LUCERO, hypertension, depression. Pt is being seen in consultation for medical management of the above. Patient presented to [facility] for elective left total knee arthroplasty by [...] by BRITTANY ARREOLA on 09/28/2025 01:08 PM [facility] 09-28-2025 Hospital Discharg e instructions Patient Education 09/28/2025 10:15:55 5 - [facility] Post-op Instruction 07/2017 (13021) [facility] Post-operative Instructions PLEASE FOLLOW [facility] POST-OP INSTRUCTIONS GIVEN WATCH FOR SIGNS OF INFECTION: call the office ([phone]) if experencing any of the following: (Usually [...] on your follow up instructions. Form: 338A (77533) R: 04/06 Follow Up Care 08/16/2025 10:05:01 With:[facility] [employer] Address: [address] [place] [address]. [place] [address] [phone] When:09/30/2025 10:00:00 Comments:This is your first physical therapy appointment. Follow-up as scheduled. With:AKIKO HENRY PA-C, Orthopedic Address: [address] [place] [address], [address] [facility] [place] [address]- [phone] When:10/11/2025 10:30:00 Comments:This is your post-op appointment. Follow-up as scheduled. [facility] 09-28-2025 Note Date of Service September [...] patient's medications to her primary pharmacy at [facility] in [facility]. Patient has the extra strength Tylenol and senna at home. She has outpatient physical therapy established in which she will be using [employer] transportation. She will follow-up per postoperative instructions. Discharge will be based on how her pain and how she does with physical therapy. Patient may require additional night stay. I have reviewed the [place] Automated Rx Reporting System (OARRS) report for [...] KUNAL CONTRERAS PA-C on 09/28/2025 10:15 AM [facility] 09-28-2025 Pastoral care Progress note Pastoral Care Note Entered On: 09/28/2025 9:30 EDT Performed On: 09/28/2025 9:25 EDT by Kunal Calzada Pastoral Care Spiritual Care Visit Initiated by : Die Technician Type of Pastoral Visit : Initial visit [...] Care Comments : patient has met this licensed clinical psychologist before through her ; pt is open [...] by Kunal Calzada on 09/28/2025 09:25 AM [facility] 09-27-2025 Note Exam Date Time Procedure Performing Provider Status 09/27/25 11:54 AM XR Knee 1 or 2 Views RADHA Campos MD; Auth (Verified) [id number] ORIGINAL EXAMINATION: TWO XRAY VIEWS OF THE [...] 09/27/2025 12:09:50 PM Ordering Provider: VERONICA CARLISLE [facility]10-28-2025 Anesthesiology Consult note Patient: ALISTAIR ARECHIGA Age: 79 years Sex: Female : 1945 Associated Diagnoses: None Author: RUSLAN PRIDE APRN-PEARL DIVER Assessment Postanesthesia assessment Vitals: Vital signs from [...] by RUSLAN PRIDE on 09/27/2025 11:27 AM [place] [address]-28-2025 Anesthesiology Consult note Patient: ALISTAIR ARECHIGA Age: [...] Signs (last 24 hrs) Last Charted Temp Elmyalpu77.6 DegC (SEP 27 07:43) Heart Rate Jidneemlv93 bpm (SEP 27 10:) JTZ835 mmHg (SEP 27 10:) DBP65 mmHg (SEP 27 10:) Measurements from flowsheet : Measurements 09/27/2025 7:43 EDT Height 155 cm Height in inches 61 inch(es) Admission Weight 77.3 kg Weight Lbs 170.1 lb [place] Body Weight 47.85 kg Admission Body Mass [...] Irl - Additive IRRIGATION CHG 0.05% IRRISEPT 12/CA [id number] SN - Irl - Additive BETADINE 09/27/2025 [...] Integrity Intact/Dry 09/27/2025 10:31 EDT SN - IN - Route of Administration Local 09/27/2025 10:31 [...] SN - CAt - Role Performed Physician Field Insurance Sales Manager SN - CAt - Role Performed PEARL DIVER SN - CAt - Role Performed Vp Home Health 1 SN - CAt - Role Performed Scrub 1 SN - CAt - Role Performed Seam Closer 1 SN - CAt - Role Performed Hide And Skin Colerer SN - CAt - Role Performed Hide And Skin Colerer 09/27/2025 10:27 EDT SN - CAt - [...] Weight 77.3 kg Weight Lbs 170.1 lb [place] Body Weight 47.85 kg Admission Body Mass [...] level maintained 09/27/2025 7:38 EDT Allergies Yes Lead Net Software Developer On Yes Consent Form Signed Yes Patient [...] Person #1 We May Share WAN HAAS [phone] Designated Person #1 Relationship Daughter Privacy Restrictions Requested None Status N/A Sensory Deficits None Sleep Apnea Snore Yes Sleep Apnea Tired Yes Sleep Apnea Obstruction No Sleep Apnea Pressure Yes Sleep Apnea BMI No Sleep Apnea Age Yes Sleep Apnea Neck No Sleep Apnea Gender No Sleep Apnea Score 4 Diagnosed With Sleep Apnea No Advanced Directives Yes Advance Directive Type [facility] Power of News Broadcaster for [facility] [place], [place] Declaration (Living Will) Advance Directive Location [...] Method Explanation, Printed materials Preferred Spoken Language Israeli Preferred Written Language Israeli Teaching Evaluation Verbalizes/Nonverbally indicates understanding Total Joint Book Given Yes Safety Brochure Information Reviewed Yes Wheeler Brennan Video Viewed No Patient's Current Physicians Patient's [...] Day Patient History . Assessment and Plan [place] Society of Anesthesiologists (ASA) physical status classification: Class III. Anesthetic Preoperative Plan Anesthetic technique: Spinal. Postoperative pain management: adductor. Informed consent: signed by patient. Digitally Signed by RUSLAN PRIDE on 09/27/2025 10:37 AM [facility]08-21-2025 Progress [facility] [address] [place] [address] OFFICE VISIT Date of Service: 07/21/25 1112 MR#: [id number] Acct: [id number] Name: SOFIAALISTAIRAINE Rep #: [id number] : 1945 From: Frances Medley ch TRANSIT VEHICLE INSPECTOR TRANSIT VEHICLE INSPECTOR-C Age/Sex: 79/F Location: [facility] Status: Signed HPI Subjective Date of Service [...] an addendum) Specimen in which ER/ND/HER2 performed: N45-8250 C pTNM: pT2 pN0 (see note in [...] months). Exercises performing LUE stretches at night. PFSH Medical History Encounter for education Osteopenia Cancer [...] Mccoy Revive 2 cap PO DAILY 10/18/24 0812/25 History ascorbic acid (vitamin C) 500 mg [...] the past year?: No 07/21/25 1151 h TRANSIT VEHICLE INSPECTOR TRANSIT VEHICLE INSPECTOR-C> Date _ Frances Sevilla TRANSIT VEHICLE INSPECTOR TRANSIT VEHICLE INSPECTOR-C Cosigner Signature: Date (if applicable) CC: ~ [facility] [id number] Progress note Author Frances Sevilla [facility] Note Date/Time July 21, 2025 11 :51am [facility] [place] [address] [place] [place] [address] OFFICE VISIT Date of Service: 07/21/25 1112 MR#: [id number] Acct: [id number] Name: ALISTAIR ARECHIGA Rep #: [id number] : 1945 From: Frances Medley ch TRANSIT VEHICLE INSPECTOR TRANSIT VEHICLE INSPECTOR-C Age/Sex: 79/F Location: [facility] Status: Signed HPI Subjective Date of Service [...] an addendum) Specimen in which ER/ND/HER2 performed: [id number] C pTNM: pT2 pN0 (see note in [...] months). Exercises performing LUE stretches at night. [facility] Medical History Encounter for education Osteopenia Cancer [...] No 07/21/25 1151 <Electronically signed by Frances khalil NP, NP-C> Date _ Frances Sevilla NP, NP-C Cosigner Signature: Date (if applicable) CC: ~ [facility] Work Phone: 1(330) 771-439606-26-2025 Evaluation note* Diagnosis Onset Date Resolution Status [...] incomplete uterovaginal prolapse chronic July 26 10:06am [facility] Work Phone: 1(865) 915-671705-12-2025 Discharge summary Author Manoj Mehta [facility] Note Date/Time April 11, 2025 4:35a m [facility] Medical Records Department [address] [place] [address] Emergency Department Summary 04/11/25 MR#: [id number] Acct: [id number] Name: ALISTAIR ARECHIGA Rep #:[id number] : 1945 79 From: Manoj Mehta MD PCP: Rayshawn Chaudhary NP-C Status:PRE E R Location: ED HPI History [...] release Mccoy Revive 2 cap PO DAILY 10/18/2403/25 History ascorbic acid (vitamin C) 500 mg [...] Care Provider: Rayshawn Chaudhary Referrals: Rayshawn Chaudhary, NONA [Primary Care Provider] - As Needed Activity [...] medications as needed and prescribed. Print Language: Israeli Disposition Disposition: Home, Self Care What to do if you have Problems For any increased pain, shortness of breath, bleeding, nausea or vomiting, chestpain, or any unexpected problems, contact your Primary Care Provider. Call [facility] ([phone]) or report to the closest Emergency Room. Call 911 if necessary. 04/11/25 3900 <Electronically signed by Manoj Mehta MD> Cosigner Signature (if applicable): CC: NONA Chaudhary ~ Signed [facility] Work Phone: 1(250) 863-200705-12-2025 Discharge summary [facility] Medical Records Department [address] [place] [address] Emergency Department Summary 04/11/25 MR#: [id number] Acct: [id number] Name: ALISTAIR ARECHIGA Rep #:[id number] : 1945 79 From: Manoj Mehta MD PCP: Rayshawn Chaudhary NP-C Status:PRE E R Location: ED HPI History [...] similar symptoms: Yes Recent Illness/Hospitalization: No PFSH [facility] Medical History Osteopenia Cancer Wears glasses Post-menopausal [...] release Mccoy Revive 2 cap PO DAILY 10/18/2403/25 History ascorbic acid (vitamin C) 500 mg [...] (400 unit) tablet,chewable 1 tab PO DAILY Cmcoy Revive 2 cap PO DAILY fenofibric acid [...] medications as needed and prescribed. Print Language: Israeli Disposition Disposition: Home, Self Care What to do if you have Problems For any increased pain, shortness of breath, bleeding, nausea or vomiting, chestpain, or any unexpected problems, contact your Primary Care Provider. Call [facility] ([phone]) or report tothe closest Emergency Room. Call 911 if necessary. 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 She has not discussed with [...] PCP office This note was generated with [employer] dictation software. It may contain incorrectwords, spelling, and punctuation that were not noted in checking the note beforesigning. Discharge Plan Triage Chief Complaint: Hypertension ED Provider: Wesly Leiva Dx/Rx/DC Orders Clinical Impression: Acute stress disorder, Breast cancer, left breast, Elevated blood pressure, situational Instructions: [place] to Managing Stress, Blood Pressure Check Steps [...] Care Provider: Rayshawn Chaudhary Referrals: Rayshawn Chaudhary, NONA [Primary Care Provider] - 1-2 Weeks Activity [...] follow-up with the office . Print Language: Israeli Disposition Disposition: Home, Self Care What to do if you have Problems For any increased pain, shortness of breath, bleeding, nausea or vomiting, chestpain, or any unexpected problems, contact your Primary Care Provider. Call [facility] ([phone]) or report tothe closest Emergency Room. Call 911 if necessary. 04/07/25 1252 Cosigner Signature (if applicable): CC: NONA Chaudhary ~ Signed [facility]05-05-2025 Evaluation note* Diagnosis Onset Date Resolution Status Admit Date Encounter for pessary maintenance acute April 04, 2025 10 :12am Vaginal pessary in situ acute M 2024 10:12am Cystocele and rectocele with incomplete [...] tract infection noneactive A ugust 2024 10:06am [facility] Work Phone: 1(999) 409-317004-25-2025 Evaluation note* Diagnosis Onset Date Resolution Status [...] Osteopenia chronic July 21, 2 025 10:32am [facility] Work Phone: 1(986) 634-256004-09-2025 Evaluation note* Diagnosis Onset Date Resolution Status [...] left breast acute May 26, 2025 9:44am [facility] Work Phone: 1(737) 773-108303-25-2025 Nuclear medicine Diagnostic study note [facility] Imaging Services [address] [facility] [place] [address] Lymph Node Injection Only MR#: [id number] Acct: [id number] Name: ALISTAIR ARECHIGA Rep #: [id number] : 1945 F 79 From: Bernard Conner MD PCP: NONA Dickerson Status: REG S DC Study:Lymph Node Injection Only Date of Exam: 02/22/25 Exam# [id number] Ordering Dr: Deshawn Craven PA-C EXAM: Left [...] Injection Only IMPRESSION: As above. Reading Location: [facility] CC: NONA Chaudhary; TATA Craven; Dr. Branden Lance MD ~ Concrete Products Dispatcher: Signed [facility]03-25-2025 Consult note Author Dia Campbell [facility] Note Date/Time February 22, 2025 9:5 0am [facility] Medical Records Department [address] [place] [address] Anesthesia Postop Eval I 02/22/25 0944 MR#: [id number] Acct: [id number] Name: ALISTAIR ARECHIGA Rep #:[id number] : 1945 79 From: Dia Campbell CRNA PCP: Rayshawn Chaudhary TRANSIT VEHICLE INSPECTOR-C Status:REG S DC Y Race: C Location: [place] [address] Anesthesia: Postop Eval I Current Vital Signs [...] CRNA Cosigner Signature: Date CC: ~ Signed [facility] Work Phone: 1(195) 434-630403-25-2025 Discharge summary Author Branden Lance [facility] Note Date/Time February 22, 2025 9:3 9am [facility] Medical Records Department [address] [place] [address] Instructions for Home/Discharge Instructions 02/22/25 0937 MR#: [id number] Acct: [id number] Name: ALISTAIR ARECHIGA Rep #:[id number] : 1945 79 From: Branden joseph MD PCP: Rayshawn Chaudhary TRANSIT VEHICLE INSPECTOR-C Status:REG S DC Discharge Instructions Diet Discharge [...] to schedule 2 week follow up appointment. [phone] Test Results: Test results from this visit will be discussed in further detail at your follow- up appointment, if applicable. Discharge Plan Admission Attending Provider: Branden Lance Primary Care Provider: Rayshawn Chaudhary Instructions Print Language: Israeli Discharge Orders/Prescriptions Prescriptions: New oxycodone 5 mg [...] PO DAILY Referrals / Follow Up: Rayshawn Chaudhary, ALCIDES-C [Primary Care Provider] - Disposition Disposition (needs filled in before D/C Order can be placed): Home, Self Care 02/22/25 0939<Electronically signed by Branden Lance MD>Branden Lance MD CC: TRANSIT VEHICLE INSPECTORSudeepC Rayshawn Chaudhary ~ Signed [facility] Work Phone: 1(945) 314-587003-25-2025 Consult note [facility] Medical Records Department [address] [place] [address] Anesthesia Postop Eval I 02/22/2544 MR#: [id number] Acct: [id number] Name: ALISTAIR ARECHIGA Rep #:[id number] : 1945 79 From: Dia Campbell CRNA PCP: NONA Dickerson Status:REG S DC Y Race: C Location: [place] [address] Anesthesia: Postop Eval I Current Vital Signs [...] CRNA Cosigner Signature: Date CC: ~ Signed [facility]03-25-2025 Discharge summary [facility] Medical Records Department [address] [place] [address] Instructions for Home/Discharge Instructions 02/22/25 0937 MR#: [id number] Acct: [id number] Name: ALISTAIR ARECHIGA MAXIMILIAN Rep #:[id number] : 1945 79 From: Branden joseph MD PCP: Rayshawn Maurice, TRANSIT VEHICLE INSPECTOR-C Status:REG S DC Discharge Instructions Diet Discharge [...] to schedule 2 week follow up appointment. [phone] Test Results: Test results from this visit will be discussed in further detail at your follow- up appointment, if applicable. Discharge Plan Admission Attending Provider: Branden Lance Primary Care Provider: Rayshawn Chaudhary Instructions Print Language: Israeli Discharge Orders/Prescriptions Prescriptions: New oxycodone 5 mg [...] PO DAILY Referrals / Follow Up: Rayshawn Chauhdary NP-C [Primary Care Provider] - Disposition Disposition (needs filled in before D/C Order can be placed): Home, Self Care 02/22/2539Branden Lance MD CC: NONA Chaudhary ~ Signed [facility]03-25-2025 Procedure note [facility] Medical Records Department [address] [place] [address] Operative Report 02/22/2531 MR#: [id number] Acct: [id number] Name: ALISTAIR ARECHIGA Rep #:[id number] : 1945 79 From: Branden joseph MD PCP: NONA Dickerson Status:REG S DC Location: [place] [address] Operative Report (Standard) Operative Information Date of Procedure: 02/22/25 Pre-Operative Diagnosis: Left breast cancer of the central region Post-Operative Diagnosis: Same Surgery/Procedure Performed: 1. Left partial mastectomy 2. Left sentinel lymph node biopsy 3. Injection of blue dye corporate associate: Yes Cement Gun Operator: Sera Simental Tasks completed by accountant assistant: Opening, Closing and Retracting Type of [...] NONA Chaudhary; Dr. Branden Lance MD~ Signed [facility]03-25-2025 Consult note Author Shaquille Mathis [facility] Note Date/Time February 22, 2025 7:1 0am [facility] Medical Records Department [address] [place] [address] Pre-Anesthesia Evaluation 02/22/25 0703 MR#: [id number] Acct: [id number] Name: ALISTAIR ARECHIGA Rep #:[id number] : 1945 79 From: Shaquille Mathis MD PCP: Rayshawn Maurice, TRANSIT VEHICLE INSPECTOR-C Status:REG S DC Y Race: C Location: [facility]06- ASA Classification* ASA Classification ASA Classification: 2 [...] 07:33 06/29/24 Sodium 141 mmol/L (136-145) 06/29/24 07:33 06/29/24 Magnesium 2.2 mg/dL (1.6-2.6) 05/16/22 01:22 05/16/22 [...] BLUE DYE Anesthesia History Anesthesia History - outbound sales consultant: Anesthesia History - outbound sales consultant Hx Hospitalization No 02/15/25 11:03 Any Problems [...] juice at 3:30 AM) PONV PONV - outbound sales consultant: PONV - outbound sales consultant Female Yes 02/15/25 11:03 HX of Motion [...] 02/22/25 06:27 Respiratory Assessment Respiratory Assessment - outbound sales consultant: Respiratory Tract Infection Hx - outbound sales consultant Hx Respiratory Tract Infection No 02/15/25 11:03 STOP Sleep Apnea STOP Sleep Apnea - outbound sales consultant: STOP Sleep Apnea - outbound sales consultant Hx Hypertension No 02/15/25 11:03 Hx Sleep [...] Tobacco Use History Tobacco Use History - outbound sales consultant: Tobacco Use History - outbound sales consultant Tobacco Use Non-smoker 04/14/21 19:48 Smoking Status Never smoker 02/15/25 11:03 Hx Tobacco Use No 02/15/25 11:03 Years Smoking Packs Smoked per Day Smoking Cessation Date was within the last 15 years Hx Smoking Cessation Date Hx Smoking Cessation Counseling Hematologic Medial History Hematologic Hx - outbound sales consultant: Hematologic Medical Hx - fur plucker Hx of Blood Transfusion No 02/15/25 11:03 [...] confused, unrespo /Reproduction History /Reproductive History - outbound sales consultant: /Reproductive Hx- outbound sales consultant Hx Now Gestational Age (in weeks): EDC: [...] MD Cosigner Signature: Date CC: ~ Signed [facility] Work Phone: 1(249) 966-242203-25-2025 History and physical note Author Branden Lance [facility] Hospital Note Date/Time February 22, 2025 6:4 4am [facility] Medical Records Department [address] [place] [address] History & Physical Exam 02/22/25 0644 MR#: [id number] Acct: [id number] Name: ALISTAIR ARECHIGA Rep #:[id number] : 1945 79 From: Branden joseph MD PCP: Rayshawn Chaudhary TRANSIT VEHICLE INSPECTOR-C Status:REG S DC Location: [place] [address]- History and Physical Date of Admission: 02/22/25 [...] willing to proceed. Branden Lance MD Pager: [facility] [address] [place] [address], [address] [place] [address] Office: I have examined the patient and the H&P has been reviewed. There are no clinical changes since date of exam. 02/22/25 0644 <Electronically signed by Branden Lance MD> Cosigner Signature (if applicable): CC: NONA Chaudhary; Dr. Branden Lance MD~ Signed [facility] Work Phone: 1(234) 452-798803-25-2025 Consult note [facility] Medical Records Department [address] [place] [address] Pre-Anesthesia Evaluation 02/22/25 0703 MR#: [id number] Acct: [id number] Name: ALISTAIR ARECHIGA Rep #:[id number] : 1945 79 From: Shaquille Mathis MD PCP: NONA Dickerson Status:REG S DC Y Race: C Location: [facility] ASA Classification* ASA Classification ASA Classification: 2 [...] 09:24 07/16/23 BUN 18 mg/dL (7-18) 06/29/24 07:33 06/29/24 Creatinine 1.35 mg/dL (0.55-1.02) H 06/29/24 07:33 Glucose 89 mg/dL (74-106) 06/29/24 07:06/29/24 TSH 3.87 uIU/mL (0.358-3.74) H 06/29/24 07:33 07/ COAG PT 13.5 SECONDS (11.7-14.9) 04/23/16 21:05 Pre-Assessment Diagnosis/Proposed Procedure Planned Operative Procedure(s): LEFT PARTIAL MASTECTOMY SLN BX BLUE DYE Anesthesia History Anesthesia History - outbound sales consultant: Anesthesia History - outbound sales consultant Hx Hospitalization No 02/15/25 11:03 Any Problems [...] juice at 3:30 AM) PONV PONV - outbound sales consultant: PONV - outbound sales consultant Female Yes 02/15/25 11:03 HX of Motion [...] 02/22/25 06:27 Respiratory Assessment Respiratory Assessment - outbound sales consultant: Respiratory Tract Infection Hx - outbound sales consultant Hx Respiratory Tract Infection No 02/15/25 11:03 STOP Sleep Apnea STOP Sleep Apnea - outbound sales consultant: STOP Sleep Apnea - outbound sales consultant Hx Hypertension No 02/15/25 11:03 Hx Sleep [...] Tobacco Use History Tobacco Use History - outbound sales consultant: Tobacco Use History - outbound sales consultant Tobacco Use Non-smoker 04/14/21 19:48 Smoking Status Never smoker 02/15/25 11:03 Hx Tobacco Use No 02/15/25 11:03 Years Smoking Packs Smoked per Day Smoking Cessation Date was within the last 15 years Hx Smoking Cessation Date Hx Smoking Cessation Counseling Hematologic Medial History Hematologic Hx - outbound sales consultant: Hematologic Medical Hx - fur plucker Hx of Blood Transfusion No 02/15/25 11:03 [...] confused, unrespo /Reproduction History /Reproductive History - outbound sales consultant: /Reproductive Hx- outbound sales consultant Hx Now Gestational Age (in weeks): EDC: [...] MD Cosigner Signature: Date CC: ~ Signed [facility]03-25-2025 History and physical note [facility] Medical Records Department [address] [place] [address] History & Physical Exam 02/22/25 0644 MR#: [id number] Acct: [id number] Name: ALISTAIR ARECHIGA Rep #:[id number] : 1945 79 From: Branden joseph MD PCP: Rayshawn Chaudhary TRANSIT VEHICLE INSPECTOR-C Status:REG S DC Location: [place] [address] History and Physical Date of Admission: 02/22/25 [...] willing to proceed. Branden Lance MD Pager: [facility] [address] [place] [address], [address] [place] [address] Office: I have examined the patient and the H&P has been reviewed. There are no clinical changes since date of exam. 02/22/25 0644 Cosigner Signature (if applicable): CC: NONA Chaudhary; Dr. Branden Lance MD~ Signed [facility]03-25-2025 [facility]03-14-2025 Evaluation note* Diagnosis Onset Date Resolution Status [...] for education acute M ay 2024 9:43am [facility] Work Phone: [phone]) [phone] Evaluation note* Diagnosis Onset Date Resolution Status [...] left breast acute May 26, 2025 9:44am [facility] Work Phone: 1(100) 299-326102-28-2025 [facility]02-03-2025 Evaluation note* Diagnosis Onset Date Resolution Status Admit Date Encounter for pessary maintenance acute January 03 10:11am Vaginal pessary in situ acute F ebruary 2024 10:11am 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 January 03 10:11am Breast lesion on mammography acute January 18, 2025 8:20am Breast cancer, left breast acute February 11, 2025 12:44pm [facility] Work Phone: 1(874) 727-882902-03-2025 Evaluation note* Diagnosis Onset Date Resolution Status [...] 10 :12am Hypertension chronic April 04 10:12am [facility] Work Phone: 1(636) 276-495902-03-2025 Evaluation note* Diagnosis Onset Date Resolution Status [...] for education acute M ay 2024 9:43am [facility] Work Phone: 1(519) 146-994406-21-[address] Merrill [facility] May 21, 2023 12:58pm Note Date/Time May 21, 2023 11:0 2am [facility] Medical Records Department [address] [place] [address] Emergency Department Summary 05/21/23 MR#: [id number] Acct: [id number] Name: ALISTAIR ARECHIGA Rep #:[id number] : 1945 77 From: Domenic Alarcon PCP: Rayshawn Chaudhary NP-C Status:REG E R Location: ED HPI History of Present Illness Chief Complaint: Abd Pain PFSH [facility] Medical History GERD (gastroesophageal reflux disease) Hyperlipidemia [...] reviewed, Vital signs reviewed Constitutional: please see [facility] HENT: MMM Eyes: Pupils equal round and [...] BEEN PERSONALLY REVIEWED AND INTERPRETED BY MYSELF. [facility] Narrative: The patient was hemodynamically stable, afebrile, [...] severe anemia, no thrombocytopenia. BMP without significant Cadogan abnormalities, no anion gap to suggest endorgan [...] % (Auto) 57.4 Lymph % (Auto) 31.6 Bullock % (Auto) 7.9 Eos % (Auto) 1.8 [...] Sl. Cloudy Urine pH 6.0 Ur Specific Norco 1.015 Urine Protein Negative Urine Glucose (UA) [...] 12:10 EDT Reading Location ID and State: [address] [place] [address] , Service support , I have personally [...] Staff - Active Staff] - Rayshawn Chaudhary, NONA [Primary Care Provider] - Activity Restrictions/Additional Instructions: [...] your Primary Care Provider. Call [facility] ([phone]) or report to the closest Emergency Room. Call 911 if necessary. 05/21/23 1258 <Electronically signed by Domenic Merrill DO> Cosigner Signature (if applicable): CC: NONA Chaudhary ~ Signed [facility] Work Phone: 1(670) 120-939804-09-2023 Hospital Discharge instructions Additional Instructions Try the full liquid diet for 2 to 3 days, then advance [facility] Work Phone: Discharge summary Author Wesly Leiva [facility] Note Date/Time April 07, 2025 12:52p m [facility] Medical Records Department [address] [place] [address] Emergency Department Summary 04/07/25 MR#: [id number] Acct: [id number] Name: ALISTAIR ARECHIGA Rep #:[id number] : 1945 79 From: Wesly Campbell PCP: Rayshawn Chaudhary TRANSIT VEHICLE INSPECTOR-C Status:REG E R Location: ED HPI History [...] or diarrhea. 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 She has not discussed with [...] PCP office This note was generated with [employer]over[employer] software. It may contain incorrectwords, spelling, and punctuation that were not noted in checking the note beforesigning. Discharge Plan Triage Chief Complaint: Hypertension ED Provider: Wesly Leiva Dx/Rx/DC Orders Clinical Impression: Acute stress disorder, Breast cancer, left breast, Elevated blood pressure, situational Instructions: [place] to Managing Stress, Blood Pressure Check Steps [...] follow-up with the office . Print Language: Israeli Disposition Disposition: Home, Self Care What to do if you have Problems For any increased pain, shortness of breath, bleeding, nausea or vomiting, chestpain, or any unexpected problems, contact your Primary Care Provider. Call [facility] ([phone]) or report to the closest Emergency Room. Call 911 if necessary. 04/07/25 1252 <Electronically signed by Wesly Campbell> Cosigner Signature (if applicable): CC: TRANSIT VEHICLE INSPECTORCandida Chaudhary ~ Signed [facility] Work Phone: Evaluation + Plan note Future Appointments [facility] Evaluation note* Diagnosis Onset Date Resolution Status Encounter for pessary maintenance acute Vaginal pessary in situ acut e 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 Encounter for pessary maintenance acute Vaginal pessary in situ acut e [facility] Work Phone: Evaluation note* Diagnosis Onset Date Resolution Status Encounter for pessary maintenance acute Vaginal pessary in situ acut e UTI (urinary tract infection) noneactive [facility] Work Phone: Evaluation note* Diagnosis Onset Date Resolution Status Encounter for pessary maintenance acute 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 [facility] Work Phone: Evaluation note* Diagnosis Onset Date Resolution Status Encounter for pessary maintenance acute Vaginal pessary in situ acut e 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 [facility] Work Phone: Evaluation note* Diagnosis Onset Date Resolution Status Encounter for pessary maintenance acute Vaginal pessary in situ acut e 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 Encounter for pessary maintenance acute Vaginal pessary in situ acut e 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 [facility] Work Phone: Evaluation note* Diagnosis Onset Date Resolution Status Encounter for pessary maintenance acute Vaginal pessary in situ acut e 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 Encounter for pessary maintenance acute Vaginal pessary in situ acut e 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 GERD (gastroesophageal reflux disease) chronic [facility] Work Phone: Hospital course Narrative No data available for this section [facility] Hospital Discharge instructions Additional Instructions Thank [...] care physician for further outpatient evaluation and management.[facility] Work Phone: Hospital Discharge instructions Additional Instructions [...] day. Keep your follow-up with the office .[facility] Work Phone: Hospital Discharge instructions Additional Instructions [...] Use your anxiety medications as needed and prescribed.[facility] Work Phone: Hospital Discharge instructions No data available for this section [facility] Instructions* Name Dates Details Patient Instructions Indication:Nonsmoker Start:19-Feb-2021 Instruction Type:Provider Instructions for Treatment How to Access Health Informa tion Online using Patient Portal and [employer]rd [employer] Apps Indication:Nonsmoker Start:19-Feb-2021 Instruction Type:Patient Education Patient Instructions Indication:BMI 32.0-32.9,adult Start:30-Jan-2021 Instruction Type:Provider Instructions for Treatment How to Access Health Informa tion Online using Patient Portal and [employer]rd [employer] Apps Indication:BMI 32.0-32.9,adult Start:30-Jan-2021 Instruction Type:Patient Education Patient Instructions Indication:BMI 32.0-32.9,adult Start:03-Jan-2021 Instruction Type:Provider Instructions for Treatment How to Access Health Informa tion Online using Patient Portal and [employer] Apps Indication:BMI 32.0-32.9,adult Start:03-Jan-2021 Instruction Type:Patient Education [...] Treatment DISCONTINUED - METABOLIC ESPITIA EL, COMPREHENSIVE (23032) Indication:Renal Insufficiency (Renamed from Impaired renal function) Start:18-Jul-2017 Instruction Type:Patient Education DISCONTINUED - [id number] (90717) Indication:Fatty liver Start:18-Jul-2017 Instruction Type:Patient Education DISCONTINUED - PTT (Activate d Partial Thromboplastin Time) (99689) Indication:Fatty liver Start:18-Jul-2017 Instruction Type:Patient Education DISCONTINUED - PT (PROTHROMB IN TIME) (43596) Indication:Fatty liver Start:18-Jul-2017 Instruction Type:Patient Education DISCONTINUED - LIPID PANEL ( 97597) Indication:Hyperlipidemia Start:18-Jul-2017 Instruction Type:Patient Education How to [...] tion Online using Patient Portal and [employer]rd [employer] Apps Indication:Impaired Fasting Glucose Start:08-Jun-2021 Instruction Type:Patient Education Patient Instructions Indication:Nonsmoker Start:19-Feb-2021 Instruction Type:Provider Instructions for Treatment How to Access Health Informa tion Online using Patient Portal and [employer]rd [employer] Apps Indication:Nonsmoker Start:19-Feb-2021 Instruction Type:Patient Education Patient Instructions Indication:BMI 32.0-32.9,adult Start:30-Jan-2021 Instruction Type:Provider Instructions for Treatment How to Access Health Informa tion Online using Patient Portal and [employer]rd [employer] Apps Indication:BMI 32.0-32.9,adult Start:30-Jan-2021 Instruction Type:Patient Education Patient Instructions Indication:BMI 32.0-32.9,adult Start:03-Jan-2021 Instruction Type:Provider Instructions for Treatment How to Access Health Informa tion Online using Patient Portal and [employer]rd [employer] Apps Indication:BMI 32.0-32.9,adult Start:03-Jan-2021 Instruction Type:Patient Education [...] Treatment DISCONTINUED - METABOLIC ESPITIA EL, COMPREHENSIVE (43293) Indication:Renal Insufficiency (Renamed from Impaired renal function) Start:18-Jul-2017 Instruction Type:Patient Education DISCONTINUED - [id number] (58406) Indication:Fatty liver Start:18-Jul-2017 Instruction Type:Patient Education DISCONTINUED - PTT (Activate d Partial Thromboplastin Time) (01599) Indication:Fatty liver Start:18-Jul-2017 Instruction Type:Patient Education DISCONTINUED - PT (PROTHROMB IN TIME) (51797) Indication:Fatty liver Start:18-Jul-2017 Instruction Type:Patient Education DISCONTINUED - LIPID PANEL ( 35312) Indication:Hyperlipidemia Start:18-Jul-2017 Instruction Type:Patient Education How to [...] Informa tion Online using Patient Portal and [employer] Apps Indication:Impaired Fasting Glucose Start:26-Sep-2021 Instruction Type:Patient Education Patient Instructions Indication:BMI 31.0-31.9,adult Start:08-Jun-2021 Instruction Type:Provider Instructions for Treatment How to Access Health Informa tion Online using Patient Portal and [employer] Apps Indication:Impaired Fasting Glucose Start:08-Jun-2021 Instruction Type:Patient Education Patient Instructions Indication:Nonsmoker Start:19-Feb-2021 Instruction Type:Provider Instructions for Treatment How to Access Health Informa tion Online using Patient Portal and [employer] Apps Indication:Nonsmoker Start:19-Feb-2021 Instruction Type:Patient Education Patient Instructions Indication:BMI 32.0-32.9,adult Start:30-Jan-2021 Instruction Type:Provider Instructions for Treatment How to Access Health Informa tion Online using Patient Portal and [employer] Apps Indication:BMI 32.0-32.9,adult Start:30-Jan-2021 Instruction Type:Patient Education Patient Instructions Indication:BMI 32.0-32.9,adult Start:03-Jan-2021 Instruction Type:Provider Instructions for Treatment How to Access Health Informa tion Online using Patient Portal and [employer] Apps Indication:BMI 32.0-32.9,adult Start:03-Jan-2021 Instruction Type:Patient Education [...] Treatment DISCONTINUED - METABOLIC ESPITIA EL, COMPREHENSIVE (46410) Indication:Renal Insufficiency (Renamed from Impaired renal function) Start:18-Jul-2017 Instruction Type:Patient Education DISCONTINUED - [id number] (27801) Indication:Fatty liver Start:18-Jul-2017 Instruction Type:Patient Education DISCONTINUED - PTT (Activate d Partial Thromboplastin Time) (64097) Indication:Fatty liver Start:18-Jul-2017 Instruction Type:Patient Education DISCONTINUED - PT (PROTHROMB IN TIME) (69446) Indication:Fatty liver Start:18-Jul-2017 Instruction Type:Patient Education DISCONTINUED - LIPID PANEL ( 50103) Indication:Hyperlipidemia Start:18-Jul-2017 Instruction Type:Patient Education How to [...] Informa tion Online using Patient Portal and [employer] Apps Indication:BMI 31.0-31.9,adult Start:11-Dec-2021 Instruction Type:Patient Education Patient Instructions Indication:Hyperlipidemia Start:26-Sep-2021 Instruction Type:Provider Instructions for Treatment How to Access Health Informa tion Online using Patient Portal and [employer] Apps Indication:Impaired Fasting Glucose Start:26-Sep-2021 Instruction Type:Patient Education Patient Instructions Indication:BMI 31.0-31.9,adult Start:08-Jun-2021 Instruction Type:Provider Instructions for Treatment How to Access Health Informa tion Online using Patient Portal and [employer] Apps Indication:Impaired Fasting Glucose Start:08-Jun-2021 Instruction Type:Patient Education Patient Instructions Indication:Nonsmoker Start:19-Feb-2021 Instruction Type:Provider Instructions for Treatment How to Access Health Informa tion Online using Patient Portal and [employer] Apps Indication:Nonsmoker Start:19-Feb-2021 Instruction Type:Patient Education Patient Instructions Indication:BMI 32.0-32.9,adult Start:30-Jan-2021 Instruction Type:Provider Instructions for Treatment How to Access Health Informa tion Online using Patient Portal and [employer] Apps Indication:BMI 32.0-32.9,adult Start:30-Jan-2021 Instruction Type:Patient Education Patient Instructions Indication:BMI 32.0-32.9,adult Start:03-Jan-2021 Instruction Type:Provider Instructions for Treatment How to Access Health Informa tion Online using Patient Portal and [employer] Apps Indication:BMI 32.0-32.9,adult Start:03-Jan-2021 Instruction Type:Patient Education [...] Treatment DISCONTINUED - METABOLIC ESPITIA EL, COMPREHENSIVE (66285) Indication:Renal Insufficiency (Renamed from Impaired renal function) Start:18-Jul-2017 Instruction Type:Patient Education DISCONTINUED - [id number] (70151) Indication:Fatty liver Start:18-Jul-2017 Instruction Type:Patient Education DISCONTINUED - PTT (Activate d Partial Thromboplastin Time) (10646) Indication:Fatty liver Start:18-Jul-2017 Instruction Type:Patient Education DISCONTINUED - PT (PROTHROMB IN TIME) (82891) Indication:Fatty liver Start:18-Jul-2017 Instruction Type:Patient Education DISCONTINUED - LIPID PANEL ( 87652) Indication:Hyperlipidemia Start:18-Jul-2017 Instruction Type:Patient Education How to [...] tion Online using Patient Portal and [employer] Apps Indication:BMI 31.0-31.9,adult Start:11-Dec-2021 Instruction Type:Patient Education Patient Instructions Indication:Hyperlipidemia Start:26-Sep-2021 Instruction Type:Provider Instructions for Treatment How to Access Health Informa tion Online using Patient Portal and [employer] Apps Indication:Impaired Fasting Glucose Start:26-Sep-2021 Instruction Type:Patient Education Patient Instructions Indication:BMI 31.0-31.9,adult Start:08-Jun-2021 Instruction Type:Provider Instructions for Treatment How to Access Health Informa tion Online using Patient Portal and [employer] Apps Indication:Impaired Fasting Glucose Start:08-Jun-2021 Instruction Type:Patient Education Patient Instructions Indication:Nonsmoker Start:19-Feb-2021 Instruction Type:Provider Instructions for Treatment How to Access Health Informa tion Online using Patient Portal and [employer] Apps Indication:Nonsmoker Start:19-Feb-2021 Instruction Type:Patient Education Patient Instructions Indication:BMI 32.0-32.9,adult Start:30-Jan-2021 Instruction Type:Provider Instructions for Treatment How to Access Health Informa tion Online using Patient Portal and [employer] Apps Indication:BMI 32.0-32.9,adult Start:30-Jan-2021 Instruction Type:Patient Education Patient Instructions Indication:BMI 32.0-32.9,adult Start:03-Jan-2021 Instruction Type:Provider Instructions for Treatment How to Access Health Informa tion Online using Patient Portal and [employer] Apps Indication:BMI 32.0-32.9,adult Start:03-Jan-2021 Instruction Type:Patient Education [...] Treatment DISCONTINUED - METABOLIC ESPITIA EL, COMPREHENSIVE (43927) Indication:Renal Insufficiency (Renamed from Impaired renal function) Start:18-Jul-2017 Instruction Type:Patient Education DISCONTINUED - [id number] (38762) Indication:Fatty liver Start:18-Jul-2017 Instruction Type:Patient Education DISCONTINUED - PTT (Activate d Partial Thromboplastin Time) (19628) Indication:Fatty liver Start:18-Jul-2017 Instruction Type:Patient Education DISCONTINUED - PT (PROTHROMB IN TIME) (44799) Indication:Fatty liver Start:18-Jul-2017 Instruction Type:Patient Education DISCONTINUED - LIPID PANEL ( 11430) Indication:Hyperlipidemia Start:18-Jul-2017 Instruction Type:Patient Education How to [...] Informa tion Online using Patient Portal and [employer] Apps Indication:BMI 31.0-31.9,adult Start:11-Dec-2021 Instruction Type:Patient Education Patient Instructions Indication:Hyperlipidemia Start:26-Sep-2021 Instruction Type:Provider Instructions for Treatment How to Access Health Informa tion Online using Patient Portal and [employer] Apps Indication:Impaired Fasting Glucose Start:26-Sep-2021 Instruction Type:Patient Education Patient Instructions Indication:BMI 31.0-31.9,adult Start:08-Jun-2021 Instruction Type:Provider Instructions for Treatment How to Access Health Informa tion Online using Patient Portal and [employer] Apps Indication:Impaired Fasting Glucose Start:08-Jun-2021 Instruction Type:Patient Education Patient Instructions Indication:Nonsmoker Start:19-Feb-2021 Instruction Type:Provider Instructions for Treatment How to Access Health Informa tion Online using Patient Portal and [employer] Apps Indication:Nonsmoker Start:19-Feb-2021 Instruction Type:Patient Education Patient Instructions Indication:BMI 32.0-32.9,adult Start:30-Jan-2021 Instruction Type:Provider Instructions for Treatment How to Access Health Informa tion Online using Patient Portal and [employer] Apps Indication:BMI 32.0-32.9,adult Start:30-Jan-2021 Instruction Type:Patient Education Patient Instructions Indication:BMI 32.0-32.9,adult Start:03-Jan-2021 Instruction Type:Provider Instructions for Treatment How to Access Health Informa tion Online using Patient Portal and [employer] Apps Indication:BMI 32.0-32.9,adult Start:03-Jan-2021 Instruction Type:Patient Education [...] Treatment DISCONTINUED - METABOLIC ESPITIA EL, COMPREHENSIVE (12985) Indication:Renal Insufficiency (Renamed from Impaired renal function) Start:18-Jul-2017 Instruction Type:Patient Education DISCONTINUED - [id number] (35903) Indication:Fatty liver Start:18-Jul-2017 Instruction Type:Patient Education DISCONTINUED - PTT (Activate d Partial Thromboplastin Time) (30529) Indication:Fatty liver Start:18-Jul-2017 Instruction Type:Patient Education DISCONTINUED - PT (PROTHROMB IN TIME) ([id number]) Indication:Fatty liver Start:18-Jul-2017 Instruction Type:Patient Education DISCONTINUED - LIPID PANEL ( [id number]) Indication:Hyperlipidemia Start:18-Jul-2017 Instruction Type:Patient Education How to [...] tion Online using Patient Portal and [employer] Indication:BMI 31.0-31.9,adult Start:11-Mar-2022 Instruction Type:Patient Education Patient Instructions Indication:BMI 31.0-31.9,adult Start:11-Dec-2021 Instruction Type:Provider Instructions for Treatment How to Access Health Informa tion Online using Patient Portal and [employer] Indication:BMI 31.0-31.9,adult Start:11-Dec-2021 Instruction Type:Patient Education Patient Instructions Indication:Hyperlipidemia Start:26-Sep-2021 Instruction Type:Provider Instructions for Treatment How to Access Health Informa tion Online using Patient Portal and [employer] Indication:Impaired Fasting Glucose Start:26-Sep-2021 Instruction Type:Patient Education Patient Instructions Indication:BMI 31.0-31.9,adult Start:08-Jun-2021 Instruction Type:Provider Instructions for Treatment How to Access Health Informa tion Online using Patient Portal and [employer] Apps Indication:Impaired Fasting Glucose Start:08-Jun-2021 Instruction Type:Patient Education Patient Instructions Indication:Nonsmoker Start:19-Feb-2021 Instruction Type:Provider Instructions for Treatment How to Access Health Informa tion Online using Patient Portal and [employer] Apps Indication:Nonsmoker Start:19-Feb-2021 Instruction Type:Patient Education Patient Instructions Indication:BMI 32.0-32.9,adult Start:30-Jan-2021 Instruction Type:Provider Instructions for Treatment How to Access Health Informa tion Online using Patient Portal and [employer] Indication:BMI 32.0-32.9,adult Start:30-Jan-2021 Instruction Type:Patient Education Patient Instructions Indication:BMI 32.0-32.9,adult Start:03-Jan-2021 Instruction Type:Provider Instructions for Treatment How to Access Health Informa tion Online using Patient Portal and [employer] Apps Indication:BMI 32.0-32.9,adult Start:03-Jan-2021 Instruction Type:Patient Education [...] Treatment DISCONTINUED - METABOLIC ESPITIA EL, COMPREHENSIVE ([id number]) Indication:Renal Insufficiency (Renamed from Impaired renal function) Start:18-Jul-2017 Instruction Type:Patient Education DISCONTINUED - [id number] ([id number]) Indication:Fatty liver Start:18-Jul-2017 Instruction Type:Patient Education DISCONTINUED - PTT (Activate d Partial Thromboplastin Time) ([id number]) Indication:Fatty liver Start:18-Jul-2017 Instruction Type:Patient Education DISCONTINUED - PT (PROTHROMB IN TIME) ([id number]) Indication:Fatty liver Start:18-Jul-2017 Instruction Type:Patient Education DISCONTINUED - LIPID PANEL ( [id number]) Indication:Hyperlipidemia Start:18-Jul-2017 Instruction Type:Patient Education How to [...] tion Online using Patient Portal and [employer] Apps Indication:BMI 31.0-31.9,adult Start:11-Mar-2022 Instruction Type:Patient Education Patient Instructions Indication:BMI 31.0-31.9,adult Start:11-Dec-2021 Instruction Type:Provider Instructions for Treatment How to Access Health Informa tion Online using Patient Portal and [employer] Apps Indication:BMI 31.0-31.9,adult Start:11-Dec-2021 Instruction Type:Patient Education Patient Instructions Indication:Hyperlipidemia Start:26-Sep-2021 Instruction Type:Provider Instructions for Treatment How to Access Health Informa tion Online using Patient Portal and [employer] Apps Indication:Impaired Fasting Glucose Start:26-Sep-2021 Instruction Type:Patient Education Patient Instructions Indication:BMI 31.0-31.9,adult Start:08-Jun-2021 Instruction Type:Provider Instructions for Treatment How to Access Health Informa tion Online using Patient Portal and [employer] Apps Indication:Impaired Fasting Glucose Start:08-Jun-2021 Instruction Type:Patient Education Patient Instructions Indication:Nonsmoker Start:19-Feb-2021 Instruction Type:Provider Instructions for Treatment How to Access Health Informa tion Online using Patient Portal and [employer] Apps Indication:Nonsmoker Start:19-Feb-2021 Instruction Type:Patient Education Patient Instructions Indication:BMI 32.0-32.9,adult Start:30-Jan-2021 Instruction Type:Provider Instructions for Treatment How to Access Health Informa tion Online using Patient Portal and [employer] Apps Indication:BMI 32.0-32.9,adult Start:30-Jan-2021 Instruction Type:Patient Education Patient Instructions Indication:BMI 32.0-32.9,adult Start:03-Jan-2021 Instruction Type:Provider Instructions for Treatment How to Access Health Informa tion Online using Patient Portal and [employer] Apps Indication:BMI 32.0-32.9,adult Start:03-Jan-2021 Instruction Type:Patient Education [...] Treatment DISCONTINUED - METABOLIC ESPITIA EL, COMPREHENSIVE ([id number]) Indication:Renal Insufficiency (Renamed from Impaired renal function) Start:18-Jul-2017 Instruction Type:Patient Education DISCONTINUED - [id number] ([id number]) Indication:Fatty liver Start:18-Jul-2017 Instruction Type:Patient Education DISCONTINUED - PTT (Activate d Partial Thromboplastin Time) ([id number]) Indication:Fatty liver Start:18-Jul-2017 Instruction Type:Patient Education DISCONTINUED - PT (PROTHROMB IN TIME) ([id number]) Indication:Fatty liver Start:18-Jul-2017 Instruction Type:Patient Education DISCONTINUED - LIPID PANEL ( [id number]) Indication:Hyperlipidemia Start:18-Jul-2017 Instruction Type:Patient Education How to [...] Informa tion Online using Patient Portal and [employer] Indication:BMI 31.0-31.9,adult Start:11-Mar-2022 Instruction Type:Patient Education Patient Instructions Indication:BMI 31.0-31.9,adult Start:11-Dec-2021 Instruction Type:Provider Instructions for Treatment How to Access Health Informa tion Online using Patient Portal and [employer] Indication:BMI 31.0-31.9,adult Start:11-Dec-2021 Instruction Type:Patient Education Patient Instructions Indication:Hyperlipidemia Start:26-Sep-2021 Instruction Type:Provider Instructions for Treatment How to Access Health Informa tion Online using Patient Portal and [employer] Indication:Impaired Fasting Glucose Start:26-Sep-2021 Instruction Type:Patient Education Patient Instructions Indication:BMI 31.0-31.9,adult Start:08-Jun-2021 Instruction Type:Provider Instructions for Treatment How to Access Health Informa tion Online using Patient Portal and [employer] Apps Indication:Impaired Fasting Glucose Start:08-Jun-2021 Instruction Type:Patient Education Patient Instructions Indication:Nonsmoker Start:19-Feb-2021 Instruction Type:Provider Instructions for Treatment How to Access Health Informa tion Online using Patient Portal and [employer] Apps Indication:Nonsmoker Start:19-Feb-2021 Instruction Type:Patient Education Patient Instructions Indication:BMI 32.0-32.9,adult Start:30-Jan-2021 Instruction Type:Provider Instructions for Treatment How to Access Health Informa tion Online using Patient Portal and [employer] Apps Indication:BMI 32.0-32.9,adult Start:30-Jan-2021 Instruction Type:Patient Education Patient Instructions Indication:BMI 32.0-32.9,adult Start:03-Jan-2021 Instruction Type:Provider Instructions for Treatment How to Access Health Informa tion Online using Patient Portal and [employer] Indication:BMI 32.0-32.9,adult Start:03-Jan-2021 Instruction Type:Patient Education [...] Treatment DISCONTINUED - METABOLIC ESPITIA EL, COMPREHENSIVE ([id number]) Indication:Renal Insufficiency (Renamed from Impaired renal function) Start:18-Jul-2017 Instruction Type:Patient Education DISCONTINUED - [id number] ([id number]) Indication:Fatty liver Start:18-Jul-2017 Instruction Type:Patient Education DISCONTINUED - PTT (Activate d Partial Thromboplastin Time) ([id number]) Indication:Fatty liver Start:18-Jul-2017 Instruction Type:Patient Education DISCONTINUED - PT (PROTHROMB IN TIME) ([id number]) Indication:Fatty liver Start:18-Jul-2017 Instruction Type:Patient Education DISCONTINUED - LIPID PANEL ( [id number]) Indication:Hyperlipidemia Start:18-Jul-2017 Instruction Type:Patient Education How to [...] Informa tion Online using Patient Portal and [employer] Apps Indication:BMI 31.0-31.9,adult Start:11-Mar-2022 Instruction Type:Patient Education Patient Instructions Indication:BMI 31.0-31.9,adult Start:11-Dec-2021 Instruction Type:Provider Instructions for Treatment How to Access Health Informa tion Online using Patient Portal and [employer] Apps Indication:BMI 31.0-31.9,adult Start:11-Dec-2021 Instruction Type:Patient Education Patient Instructions Indication:Hyperlipidemia Start:26-Sep-2021 Instruction Type:Provider Instructions for Treatment How to Access Health Informa tion Online using Patient Portal and [employer] Apps Indication:Impaired Fasting Glucose Start:26-Sep-2021 Instruction Type:Patient Education Patient Instructions Indication:BMI 31.0-31.9,adult Start:08-Jun-2021 Instruction Type:Provider Instructions for Treatment How to Access Health Informa tion Online using Patient Portal and [employer] Apps Indication:Impaired Fasting Glucose Start:08-Jun-2021 Instruction Type:Patient Education Patient Instructions Indication:Nonsmoker Start:19-Feb-2021 Instruction Type:Provider Instructions for Treatment How to Access Health Informa tion Online using Patient Portal and [employer] Apps Indication:Nonsmoker Start:19-Feb-2021 Instruction Type:Patient Education Patient Instructions Indication:BMI 32.0-32.9,adult Start:30-Jan-2021 Instruction Type:Provider Instructions for Treatment How to Access Health Informa tion Online using Patient Portal and [employer] Apps Indication:BMI 32.0-32.9,adult Start:30-Jan-2021 Instruction Type:Patient Education Patient Instructions Indication:BMI 32.0-32.9,adult Start:03-Jan-2021 Instruction Type:Provider Instructions for Treatment How to Access Health Informa tion Online using Patient Portal and [employer] Apps Indication:BMI 32.0-32.9,adult Start:03-Jan-2021 Instruction Type:Patient Education [...] Treatment DISCONTINUED - METABOLIC ESPITIA EL, COMPREHENSIVE ([id number]) Indication:Renal Insufficiency (Renamed from Impaired renal function) Start:18-Jul-2017 Instruction Type:Patient Education DISCONTINUED - [id number] ([id number]) Indication:Fatty liver Start:18-Jul-2017 Instruction Type:Patient Education DISCONTINUED - PTT (Activate d Partial Thromboplastin Time) ([id number]) Indication:Fatty liver Start:18-Jul-2017 Instruction Type:Patient Education DISCONTINUED - PT (PROTHROMB IN TIME) ([id number]) Indication:Fatty liver Start:18-Jul-2017 Instruction Type:Patient Education DISCONTINUED - LIPID PANEL ( [id number]) Indication:Hyperlipidemia Start:18-Jul-2017 Instruction Type:Patient Education How to [...] Informa tion Online using Patient Portal and [employer] Indication:UTI symptoms Start:24-Sep-2022 Instruction Type:Patient Education Patient Instructions Indication:BMI 31.0-31.9,adult Start:11-Mar-2022 Instruction Type:Provider Instructions for Treatment How to Access Health Informa tion Online using Patient Portal and [employer] Apps Indication:BMI 31.0-31.9,adult Start:11-Mar-2022 Instruction Type:Patient Education Patient Instructions Indication:BMI 31.0-31.9,adult Start:11-Dec-2021 Instruction Type:Provider Instructions for Treatment How to Access Health Informa tion Online using Patient Portal and [employer] Apps Indication:BMI 31.0-31.9,adult Start:11-Dec-2021 Instruction Type:Patient Education Patient Instructions Indication:Hyperlipidemia Start:26-Sep-2021 Instruction Type:Provider Instructions for Treatment How to Access Health Informa tion Online using Patient Portal and [employer] Apps Indication:Impaired Fasting Glucose Start:26-Sep-2021 Instruction Type:Patient Education Patient Instructions Indication:BMI 31.0-31.9,adult Start:08-Jun-2021 Instruction Type:Provider Instructions for Treatment How to Access Health Informa tion Online using Patient Portal and [employer] Apps Indication:Impaired Fasting Glucose Start:08-Jun-2021 Instruction Type:Patient Education Patient Instructions Indication:Nonsmoker Start:19-Feb-2021 Instruction Type:Provider Instructions for Treatment How to Access Health Informa tion Online using Patient Portal and [employer] Apps Indication:Nonsmoker Start:19-Feb-2021 Instruction Type:Patient Education Patient Instructions Indication:BMI 32.0-32.9,adult Start:30-Jan-2021 Instruction Type:Provider Instructions for Treatment How to Access Health Informa tion Online using Patient Portal and [employer] Apps Indication:BMI 32.0-32.9,adult Start:30-Jan-2021 Instruction Type:Patient Education Patient Instructions Indication:BMI 32.0-32.9,adult Start:03-Jan-2021 Instruction Type:Provider Instructions for Treatment How to Access Health Informa tion Online using Patient Portal and [employer] Indication:BMI 32.0-32.9,adult Start:03-Jan-2021 Instruction Type:Patient Education [...] Treatment DISCONTINUED - METABOLIC ESPITIA EL, COMPREHENSIVE ([id number]) Indication:Renal Insufficiency (Renamed from Impaired renal function) Start:18-Jul-2017 Instruction Type:Patient Education DISCONTINUED - [id number] ([id number]) Indication:Fatty liver Start:18-Jul-2017 Instruction Type:Patient Education DISCONTINUED - PTT (Activate d Partial Thromboplastin Time) ([id number]) Indication:Fatty liver Start:18-Jul-2017 Instruction Type:Patient Education DISCONTINUED - PT (PROTHROMB IN TIME) ([id number]) Indication:Fatty liver Start:18-Jul-2017 Instruction Type:Patient Education DISCONTINUED - LIPID PANEL ( [id number]) Indication:Hyperlipidemia Start:18-Jul-2017 Instruction Type:Patient Education How to [...] Informa tion Online using Patient Portal and [employer] Apps Indication:Nonsmoker Start:07-Nov-2022 Instruction Type:Patient Education Patient Instructions Indication:UTI symptoms Start:24-Sep-2022 Instruction Type:Provider Instructions for Treatment How to Access Health Informa tion Online using Patient Portal and [employer] Apps Indication:UTI symptoms Start:24-Sep-2022 Instruction Type:Patient Education Patient Instructions Indication:BMI 31.0-31.9,adult Start:11-Mar-2022 Instruction Type:Provider Instructions for Treatment How to Access Health Informa tion Online using Patient Portal and [employer] Apps Indication:BMI 31.0-31.9,adult Start:11-Mar-2022 Instruction Type:Patient Education Patient Instructions Indication:BMI 31.0-31.9,adult Start:11-Dec-2021 Instruction Type:Provider Instructions for Treatment How to Access Health Informa tion Online using Patient Portal and [employer] Apps Indication:BMI 31.0-31.9,adult Start:11-Dec-2021 Instruction Type:Patient Education Patient Instructions Indication:Hyperlipidemia Start:26-Sep-2021 Instruction Type:Provider Instructions for Treatment How to Access Health Informa tion Online using Patient Portal and [employer] Apps Indication:Impaired Fasting Glucose Start:26-Sep-2021 Instruction Type:Patient Education Patient Instructions Indication:BMI 31.0-31.9,adult Start:08-Jun-2021 Instruction Type:Provider Instructions for Treatment How to Access Health Informa tion Online using Patient Portal and [employer] Apps Indication:Impaired Fasting Glucose Start:08-Jun-2021 Instruction Type:Patient Education Patient Instructions Indication:Nonsmoker Start:19-Feb-2021 Instruction Type:Provider Instructions for Treatment How to Access Health Informa tion Online using Patient Portal and [employer] Apps Indication:Nonsmoker Start:19-Feb-2021 Instruction Type:Patient Education Patient Instructions Indication:BMI 32.0-32.9,adult Start:30-Jan-2021 Instruction Type:Provider Instructions for Treatment How to Access Health Informa tion Online using Patient Portal and [employer] Indication:BMI 32.0-32.9,adult Start:30-Jan-2021 Instruction Type:Patient Education Patient Instructions Indication:BMI 32.0-32.9,adult Start:03-Jan-2021 Instruction Type:Provider Instructions for Treatment How to Access Health Informa tion Online using Patient Portal and [employer] Apps Indication:BMI 32.0-32.9,adult Start:03-Jan-2021 Instruction Type:Patient Education [...] Treatment DISCONTINUED - METABOLIC ESPITIA EL, COMPREHENSIVE ([id number]) Indication:Renal Insufficiency (Renamed from Impaired renal function) Start:18-Jul-2017 Instruction Type:Patient Education DISCONTINUED - [id number] ([id number]) Indication:Fatty liver Start:18-Jul-2017 Instruction Type:Patient Education DISCONTINUED - PTT (Activate d Partial Thromboplastin Time) ([id number]) Indication:Fatty liver Start:18-Jul-2017 Instruction Type:Patient Education DISCONTINUED - PT (PROTHROMB IN TIME) ([id number]) Indication:Fatty liver Start:18-Jul-2017 Instruction Type:Patient Education DISCONTINUED - LIPID PANEL ( [id number]) Indication:Hyperlipidemia Start:18-Jul-2017 Instruction Type:Patient Education How to [...] Informa tion Online using Patient Portal and [employer] Apps Indication:Nonsmoker Start:07-Nov-2022 Instruction Type:Patient Education Patient Instructions Indication:UTI symptoms Start:24-Sep-2022 Instruction Type:Provider Instructions for Treatment How to Access Health Informa tion Online using Patient Portal and [employer] Apps Indication:UTI symptoms Start:24-Sep-2022 Instruction Type:Patient Education Patient Instructions Indication:BMI 31.0-31.9,adult Start:11-Mar-2022 Instruction Type:Provider Instructions for Treatment How to Access Health Informa tion Online using Patient Portal and [employer] Apps Indication:BMI 31.0-31.9,adult Start:11-Mar-2022 Instruction Type:Patient Education Patient Instructions Indication:BMI 31.0-31.9,adult Start:11-Dec-2021 Instruction Type:Provider Instructions for Treatment How to Access Health Informa tion Online using Patient Portal and [employer] Apps Indication:BMI 31.0-31.9,adult Start:11-Dec-2021 Instruction Type:Patient Education Patient Instructions Indication:Hyperlipidemia Start:26-Sep-2021 Instruction Type:Provider Instructions for Treatment How to Access Health Informa tion Online using Patient Portal and [employer] Apps Indication:Impaired Fasting Glucose Start:26-Sep-2021 Instruction Type:Patient Education Patient Instructions Indication:BMI 31.0-31.9,adult Start:08-Jun-2021 Instruction Type:Provider Instructions for Treatment How to Access Health Informa tion Online using Patient Portal and [employer] Apps Indication:Impaired Fasting Glucose Start:08-Jun-2021 Instruction Type:Patient Education Patient Instructions Indication:Nonsmoker Start:19-Feb-2021 Instruction Type:Provider Instructions for Treatment How to Access Health Informa tion Online using Patient Portal and [employer] Apps Indication:Nonsmoker Start:19-Feb-2021 Instruction Type:Patient Education Patient Instructions Indication:BMI 32.0-32.9,adult Start:30-Jan-2021 Instruction Type:Provider Instructions for Treatment How to Access Health Informa tion Online using Patient Portal and [employer] Indication:BMI 32.0-32.9,adult Start:30-Jan-2021 Instruction Type:Patient Education Patient Instructions Indication:BMI 32.0-32.9,adult Start:03-Jan-2021 Instruction Type:Provider Instructions for Treatment How to Access Health Informa tion Online using Patient Portal and [employer] Indication:BMI 32.0-32.9,adult Start:03-Jan-2021 Instruction Type:Patient Education [...] Treatment DISCONTINUED - METABOLIC ESPITIA EL, COMPREHENSIVE ([id number]) Indication:Renal Insufficiency (Renamed from Impaired renal function) Start:18-Jul-2017 Instruction Type:Patient Education DISCONTINUED - [id number] ([id number]) Indication:Fatty liver Start:18-Jul-2017 Instruction Type:Patient Education DISCONTINUED - PTT (Activate d Partial Thromboplastin Time) ([id number]) Indication:Fatty liver Start:18-Jul-2017 Instruction Type:Patient Education DISCONTINUED - PT (PROTHROMB IN TIME) ([id number]) Indication:Fatty liver Start:18-Jul-2017 Instruction Type:Patient Education DISCONTINUED - LIPID PANEL ( 87221) Indication:Hyperlipidemia Start:18-Jul-2017 Instruction Type:Patient Education How to [...] Informa tion Online using Patient Portal and [employer] Indication:Nonsmoker Start:07-Nov-2022 Instruction Type:Patient Education Patient Instructions Indication:UTI symptoms Start:24-Sep-2022 Instruction Type:Provider Instructions for Treatment How to Access Health Informa tion Online using Patient Portal and [employer] Apps Indication:UTI symptoms Start:24-Sep-2022 Instruction Type:Patient Education Patient Instructions Indication:BMI 31.0-31.9,adult Start:11-Mar-2022 Instruction Type:Provider Instructions for Treatment How to Access Health Informa tion Online using Patient Portal and [employer] Indication:BMI 31.0-31.9,adult Start:11-Mar-2022 Instruction Type:Patient Education Patient Instructions Indication:BMI 31.0-31.9,adult Start:11-Dec-2021 Instruction Type:Provider Instructions for Treatment How to Access Health Informa tion Online using Patient Portal and [employer] Indication:BMI 31.0-31.9,adult Start:11-Dec-2021 Instruction Type:Patient Education Patient Instructions Indication:Hyperlipidemia Start:26-Sep-2021 Instruction Type:Provider Instructions for Treatment How to Access Health Informa tion Online using Patient Portal and [employer] Apps Indication:Impaired Fasting Glucose Start:26-Sep-2021 Instruction Type:Patient Education Patient Instructions Indication:BMI 31.0-31.9,adult Start:08-Jun-2021 Instruction Type:Provider Instructions for Treatment How to Access Health Informa tion Online using Patient Portal and [employer] Apps Indication:Impaired Fasting Glucose Start:08-Jun-2021 Instruction Type:Patient Education Patient Instructions Indication:Nonsmoker Start:19-Feb-2021 Instruction Type:Provider Instructions for Treatment How to Access Health Informa tion Online using Patient Portal and [employer] Apps Indication:Nonsmoker Start:19-Feb-2021 Instruction Type:Patient Education Patient Instructions Indication:BMI 32.0-32.9,adult Start:30-Jan-2021 Instruction Type:Provider Instructions for Treatment How to Access Health Informa tion Online using Patient Portal and [employer] Indication:BMI 32.0-32.9,adult Start:30-Jan-2021 Instruction Type:Patient Education Patient Instructions Indication:BMI 32.0-32.9,adult Start:03-Jan-2021 Instruction Type:Provider Instructions for Treatment How to Access Health Informa tion Online using Patient Portal and [employer] Indication:BMI 32.0-32.9,adult Start:03-Jan-2021 Instruction Type:Patient Education [...] Treatment DISCONTINUED - METABOLIC ESPITIA EL, COMPREHENSIVE ([id number]) Indication:Renal Insufficiency (Renamed from Impaired renal function) Start:18-Jul-2017 Instruction Type:Patient Education DISCONTINUED - [id number] ([id number]) Indication:Fatty liver Start:18-Jul-2017 Instruction Type:Patient Education DISCONTINUED - PTT (Activate d Partial Thromboplastin Time) ([id number]) Indication:Fatty liver Start:18-Jul-2017 Instruction Type:Patient Education DISCONTINUED - PT (PROTHROMB IN TIME) (85654) Indication:Fatty liver Start:18-Jul-2017 Instruction Type:Patient Education DISCONTINUED - LIPID PANEL ( [id number]) Indication:Hyperlipidemia Start:18-Jul-2017 Instruction Type:Patient Education How to [...] for Treatment How to access health informa [employer] online Indication:Impaired Fasting Glucose Start:09-Oct-2015 Instruction Type:Patient [...] for Treatment How to access health informa [employer] online Indication:Impaired Fasting Glucose Start:19-Oct-2014 Instruction Type:Patient Education How to access health informa tion online - Detail Indication:Impaired Fasting Glucose Start:19-Oct-2014 Instruction Type:Patient Education Patient Instructions Indication:Impaired Fasting Glucose Start:19-Oct-2014 Instruction Type:Provider Instructions for Treatment How to access health informa [employer] online Indication:Impaired Fasting Glucose Start:20-Jul-2014 Instruction Type:Patient [...] tion Online using Patient Portal and [employer] Apps Indication:Nonsmoker Start:07-Nov-2022 Instruction Type:Patient Education Patient Instructions Indication:UTI symptoms Start:24-Sep-2022 Instruction Type:Provider Instructions for Treatment How to Access Health Informa tion Online using Patient Portal and [employer] Apps Indication:UTI symptoms Start:24-Sep-2022 Instruction Type:Patient Education Patient Instructions Indication:BMI 31.0-31.9,adult Start:11-Mar-2022 Instruction Type:Provider Instructions for Treatment How to Access Health Informa tion Online using Patient Portal and [employer] Apps Indication:BMI 31.0-31.9,adult Start:11-Mar-2022 Instruction Type:Patient Education Patient Instructions Indication:BMI 31.0-31.9,adult Start:11-Dec-2021 Instruction Type:Provider Instructions for Treatment How to Access Health Informa tion Online using Patient Portal and [employer] Indication:BMI 31.0-31.9,adult Start:11-Dec-2021 Instruction Type:Patient Education Patient Instructions Indication:Hyperlipidemia Start:26-Sep-2021 Instruction Type:Provider Instructions for Treatment How to Access Health Informa tion Online using Patient Portal and [employer] Apps Indication:Impaired Fasting Glucose Start:26-Sep-2021 Instruction Type:Patient Education Patient Instructions Indication:BMI 31.0-31.9,adult Start:08-Jun-2021 Instruction Type:Provider Instructions for Treatment How to Access Health Informa tion Online using Patient Portal and [employer] Apps Indication:Impaired Fasting Glucose Start:08-Jun-2021 Instruction Type:Patient Education Patient Instructions Indication:Nonsmoker Start:19-Feb-2021 Instruction Type:Provider Instructions for Treatment How to Access Health Informa tion Online using Patient Portal and [employer] Apps Indication:Nonsmoker Start:19-Feb-2021 Instruction Type:Patient Education Patient Instructions Indication:BMI 32.0-32.9,adult Start:30-Jan-2021 Instruction Type:Provider Instructions for Treatment How to Access Health Informa tion Online using Patient Portal and [employer] Apps Indication:BMI 32.0-32.9,adult Start:30-Jan-2021 Instruction Type:Patient Education Patient Instructions Indication:BMI 32.0-32.9,adult Start:03-Jan-2021 Instruction Type:Provider Instructions for Treatment How to Access Health Informa tion Online using Patient Portal and [employer] Apps Indication:BMI 32.0-32.9,adult Start:03-Jan-2021 Instruction Type:Patient Education [...] Treatment DISCONTINUED - METABOLIC ESPITIA EL, COMPREHENSIVE (59331) Indication:Renal Insufficiency (Renamed from Impaired renal function) Start:18-Jul-2017 Instruction Type:Patient Education DISCONTINUED - [id number] ([id number]) Indication:Fatty liver Start:18-Jul-2017 Instruction Type:Patient Education DISCONTINUED - PTT (Activate d Partial Thromboplastin Time) (94065) Indication:Fatty liver Start:18-Jul-2017 Instruction Type:Patient Education DISCONTINUED - PT (PROTHROMB IN TIME) (71137) Indication:Fatty liver Start:18-Jul-2017 Instruction Type:Patient Education DISCONTINUED - LIPID PANEL ( [id number]) Indication:Hyperlipidemia Start:18-Jul-2017 Instruction Type:Patient Education How to [...] for Treatment How to access health informa [employer] online Indication:Impaired Fasting Glucose Start:19-Oct-2014 Instruction Type:Patient [...] tion Online using Patient Portal and [employer] Apps Indication:UTI symptoms Start:24-Dec-2022 Instruction Type:Patient Education Patient Instructions Indication:Nonsmoker Start:07-Nov-2022 Instruction Type:Provider Instructions for Treatment How to Access Health Informa tion Online using Patient Portal and [employer] Apps Indication:Nonsmoker Start:07-Nov-2022 Instruction Type:Patient Education Patient Instructions Indication:UTI symptoms Start:24-Sep-2022 Instruction Type:Provider Instructions for Treatment How to Access Health Informa tion Online using Patient Portal and [employer] Apps Indication:UTI symptoms Start:24-Sep-2022 Instruction Type:Patient Education Patient Instructions Indication:BMI 31.0-31.9,adult Start:11-Mar-2022 Instruction Type:Provider Instructions for Treatment How to Access Health Informa tion Online using Patient Portal and [employer] Apps Indication:BMI 31.0-31.9,adult Start:11-Mar-2022 Instruction Type:Patient Education Patient Instructions Indication:BMI 31.0-31.9,adult Start:11-Dec-2021 Instruction Type:Provider Instructions for Treatment How to Access Health Informa tion Online using Patient Portal and [employer] Apps Indication:BMI 31.0-31.9,adult Start:11-Dec-2021 Instruction Type:Patient Education Patient Instructions Indication:Hyperlipidemia Start:26-Sep-2021 Instruction Type:Provider Instructions for Treatment How to Access Health Informa tion Online using Patient Portal and [employer] Apps Indication:Impaired Fasting Glucose Start:26-Sep-2021 Instruction Type:Patient Education Patient Instructions Indication:BMI 31.0-31.9,adult Start:08-Jun-2021 Instruction Type:Provider Instructions for Treatment How to Access Health Informa tion Online using Patient Portal and [employer] Apps Indication:Impaired Fasting Glucose Start:08-Jun-2021 Instruction Type:Patient Education Patient Instructions Indication:Nonsmoker Start:19-Feb-2021 Instruction Type:Provider Instructions for Treatment How to Access Health Informa tion Online using Patient Portal and [employer] Apps Indication:Nonsmoker Start:19-Feb-2021 Instruction Type:Patient Education Patient Instructions Indication:BMI 32.0-32.9,adult Start:30-Jan-2021 Instruction Type:Provider Instructions for Treatment How to Access Health Informa tion Online using Patient Portal and [employer] Apps Indication:BMI 32.0-32.9,adult Start:30-Jan-2021 Instruction Type:Patient Education Patient Instructions Indication:BMI 32.0-32.9,adult Start:03-Jan-2021 Instruction Type:Provider Instructions for Treatment How to Access Health Informa tion Online using Patient Portal and [employer] Apps Indication:BMI 32.0-32.9,adult Start:03-Jan-2021 Instruction Type:Patient Education [...] Treatment DISCONTINUED - METABOLIC ESPITIA EL, COMPREHENSIVE ([id number]) Indication:Renal Insufficiency (Renamed from Impaired renal function) Start:18-Jul-2017 Instruction Type:Patient Education DISCONTINUED - [id number] ([id number]) Indication:Fatty liver Start:18-Jul-2017 Instruction Type:Patient Education DISCONTINUED - PTT (Activate d Partial Thromboplastin Time) (40702) Indication:Fatty liver Start:18-Jul-2017 Instruction Type:Patient Education DISCONTINUED - PT (PROTHROMB IN TIME) ([id number]) Indication:Fatty liver Start:18-Jul-2017 Instruction Type:Patient Education DISCONTINUED - LIPID PANEL ( [id number]) Indication:Hyperlipidemia Start:18-Jul-2017 Instruction Type:Patient Education How to [...] tion Online using Patient Portal and [employer] Apps Indication:UTI symptoms Start:24-Dec-2022 Instruction Type:Patient Education Patient Instructions Indication:Nonsmoker Start:07-Nov-2022 Instruction Type:Provider Instructions for Treatment How to Access Health Informa tion Online using Patient Portal and [employer] Apps Indication:Nonsmoker Start:07-Nov-2022 Instruction Type:Patient Education Patient Instructions Indication:UTI symptoms Start:24-Sep-2022 Instruction Type:Provider Instructions for Treatment How to Access Health Informa tion Online using Patient Portal and [employer] Apps Indication:UTI symptoms Start:24-Sep-2022 Instruction Type:Patient Education Patient Instructions Indication:BMI 31.0-31.9,adult Start:11-Mar-2022 Instruction Type:Provider Instructions for Treatment How to Access Health Informa tion Online using Patient Portal and [employer] Indication:BMI 31.0-31.9,adult Start:11-Mar-2022 Instruction Type:Patient Education Patient Instructions Indication:BMI 31.0-31.9,adult Start:11-Dec-2021 Instruction Type:Provider Instructions for Treatment How to Access Health Informa tion Online using Patient Portal and [employer] Indication:BMI 31.0-31.9,adult Start:11-Dec-2021 Instruction Type:Patient Education Patient Instructions Indication:Hyperlipidemia Start:26-Sep-2021 Instruction Type:Provider Instructions for Treatment How to Access Health Informa tion Online using Patient Portal and [employer] Apps Indication:Impaired Fasting Glucose Start:26-Sep-2021 Instruction Type:Patient Education Patient Instructions Indication:BMI 31.0-31.9,adult Start:08-Jun-2021 Instruction Type:Provider Instructions for Treatment How to Access Health Informa tion Online using Patient Portal and [employer] Apps Indication:Impaired Fasting Glucose Start:08-Jun-2021 Instruction Type:Patient Education Patient Instructions Indication:Nonsmoker Start:19-Feb-2021 Instruction Type:Provider Instructions for Treatment How to Access Health Informa tion Online using Patient Portal and [employer] Apps Indication:Nonsmoker Start:19-Feb-2021 Instruction Type:Patient Education Patient Instructions Indication:BMI 32.0-32.9,adult Start:30-Jan-2021 Instruction Type:Provider Instructions for Treatment How to Access Health Informa tion Online using Patient Portal and [employer] Indication:BMI 32.0-32.9,adult Start:30-Jan-2021 Instruction Type:Patient Education Patient Instructions Indication:BMI 32.0-32.9,adult Start:03-Jan-2021 Instruction Type:Provider Instructions for Treatment How to Access Health Informa tion Online using Patient Portal and [employer] Indication:BMI 32.0-32.9,adult Start:03-Jan-2021 Instruction Type:Patient Education [...] Treatment DISCONTINUED - METABOLIC ESPITIA EL, COMPREHENSIVE ([id number]) Indication:Renal Insufficiency (Renamed from Impaired renal function) Start:18-Jul-2017 Instruction Type:Patient Education DISCONTINUED - [id number] ([id number]) Indication:Fatty liver Start:18-Jul-2017 Instruction Type:Patient Education DISCONTINUED - PTT (Activate d Partial Thromboplastin Time) ([id number]) Indication:Fatty liver Start:18-Jul-2017 Instruction Type:Patient Education DISCONTINUED - PT (PROTHROMB IN TIME) (04906) Indication:Fatty liver Start:18-Jul-2017 Instruction Type:Patient Education DISCONTINUED - LIPID PANEL ( [id number]) Indication:Hyperlipidemia Start:18-Jul-2017 Instruction Type:Patient Education How to [...] Informa tion Online using Patient Portal and [employer] Apps Indication:UTI symptoms Start:24-Dec-2022 Instruction Type:Patient Education Patient Instructions Indication:Nonsmoker Start:07-Nov-2022 Instruction Type:Provider Instructions for Treatment How to Access Health Informa tion Online using Patient Portal and [employer] Apps Indication:Nonsmoker Start:07-Nov-2022 Instruction Type:Patient Education Patient Instructions Indication:UTI symptoms Start:24-Sep-2022 Instruction Type:Provider Instructions for Treatment How to Access Health Informa tion Online using Patient Portal and [employer] Apps Indication:UTI symptoms Start:24-Sep-2022 Instruction Type:Patient Education Patient Instructions Indication:BMI 31.0-31.9,adult Start:11-Mar-2022 Instruction Type:Provider Instructions for Treatment How to Access Health Informa tion Online using Patient Portal and [employer] Apps Indication:BMI 31.0-31.9,adult Start:11-Mar-2022 Instruction Type:Patient Education Patient Instructions Indication:BMI 31.0-31.9,adult Start:11-Dec-2021 Instruction Type:Provider Instructions for Treatment How to Access Health Informa tion Online using Patient Portal and [employer] Apps Indication:BMI 31.0-31.9,adult Start:11-Dec-2021 Instruction Type:Patient Education Patient Instructions Indication:Hyperlipidemia Start:26-Sep-2021 Instruction Type:Provider Instructions for Treatment How to Access Health Informa tion Online using Patient Portal and [employer] Apps Indication:Impaired Fasting Glucose Start:26-Sep-2021 Instruction Type:Patient Education Patient Instructions Indication:BMI 31.0-31.9,adult Start:08-Jun-2021 Instruction Type:Provider Instructions for Treatment How to Access Health Informa tion Online using Patient Portal and [employer] Apps Indication:Impaired Fasting Glucose Start:08-Jun-2021 Instruction Type:Patient Education Patient Instructions Indication:Nonsmoker Start:19-Feb-2021 Instruction Type:Provider Instructions for Treatment How to Access Health Informa tion Online using Patient Portal and [employer] Apps Indication:Nonsmoker Start:19-Feb-2021 Instruction Type:Patient Education Patient Instructions Indication:BMI 32.0-32.9,adult Start:30-Jan-2021 Instruction Type:Provider Instructions for Treatment How to Access Health Informa tion Online using Patient Portal and [employer] Indication:BMI 32.0-32.9,adult Start:30-Jan-2021 Instruction Type:Patient Education Patient Instructions Indication:BMI 32.0-32.9,adult Start:03-Jan-2021 Instruction Type:Provider Instructions for Treatment How to Access Health Informa tion Online using Patient Portal and [employer] Indication:BMI 32.0-32.9,adult Start:03-Jan-2021 Instruction Type:Patient Education [...] Treatment DISCONTINUED - METABOLIC ESPITIA EL, COMPREHENSIVE ([id number]) Indication:Renal Insufficiency (Renamed from Impaired renal function) Start:18-Jul-2017 Instruction Type:Patient Education DISCONTINUED - [id number] (40320) Indication:Fatty liver Start:18-Jul-2017 Instruction Type:Patient Education DISCONTINUED - PTT (Activate d Partial Thromboplastin Time) (39699) Indication:Fatty liver Start:18-Jul-2017 Instruction Type:Patient Education DISCONTINUED - PT (PROTHROMB IN TIME) ([id number]) Indication:Fatty liver Start:18-Jul-2017 Instruction Type:Patient Education DISCONTINUED - LIPID PANEL ( [id number]) Indication:Hyperlipidemia Start:18-Jul-2017 Instruction Type:Patient Education How to [...] Informa tion Online using Patient Portal and [employer] Apps Indication:UTI symptoms Start:24-Dec-2022 Instruction Type:Patient Education Patient Instructions Indication:Nonsmoker Start:07-Nov-2022 Instruction Type:Provider Instructions for Treatment How to Access Health Informa tion Online using Patient Portal and [employer] Apps Indication:Nonsmoker Start:07-Nov-2022 Instruction Type:Patient Education Patient Instructions Indication:UTI symptoms Start:24-Sep-2022 Instruction Type:Provider Instructions for Treatment How to Access Health Informa tion Online using Patient Portal and [employer] Apps Indication:UTI symptoms Start:24-Sep-2022 Instruction Type:Patient Education Patient Instructions Indication:BMI 31.0-31.9,adult Start:11-Mar-2022 Instruction Type:Provider Instructions for Treatment How to Access Health Informa tion Online using Patient Portal and [employer] Apps Indication:BMI 31.0-31.9,adult Start:11-Mar-2022 Instruction Type:Patient Education Patient Instructions Indication:BMI 31.0-31.9,adult Start:11-Dec-2021 Instruction Type:Provider Instructions for Treatment How to Access Health Informa tion Online using Patient Portal and [employer] Apps Indication:BMI 31.0-31.9,adult Start:11-Dec-2021 Instruction Type:Patient Education Patient Instructions Indication:Hyperlipidemia Start:26-Sep-2021 Instruction Type:Provider Instructions for Treatment How to Access Health Informa tion Online using Patient Portal and [employer] Indication:Impaired Fasting Glucose Start:26-Sep-2021 Instruction Type:Patient Education Patient Instructions Indication:BMI 31.0-31.9,adult Start:08-Jun-2021 Instruction Type:Provider Instructions for Treatment How to Access Health Informa tion Online using Patient Portal and [employer] Indication:Impaired Fasting Glucose Start:08-Jun-2021 Instruction Type:Patient Education Patient Instructions Indication:Nonsmoker Start:19-Feb-2021 Instruction Type:Provider Instructions for Treatment How to Access Health Informa tion Online using Patient Portal and [employer] Indication:Nonsmoker Start:19-Feb-2021 Instruction Type:Patient Education Patient Instructions Indication:BMI 32.0-32.9,adult Start:30-Jan-2021 Instruction Type:Provider Instructions for Treatment How to Access Health Informa tion Online using Patient Portal and [employer] Indication:BMI 32.0-32.9,adult Start:30-Jan-2021 Instruction Type:Patient Education Patient Instructions Indication:BMI 32.0-32.9,adult Start:03-Jan-2021 Instruction Type:Provider Instructions for Treatment How to Access Health Informa tion Online using Patient Portal and [employer] Indication:BMI 32.0-32.9,adult Start:03-Jan-2021 Instruction Type:Patient Education [...] Treatment DISCONTINUED - METABOLIC ESPITIA EL, COMPREHENSIVE ([id number]) Indication:Renal Insufficiency (Renamed from Impaired renal function) Start:18-Jul-2017 Instruction Type:Patient Education DISCONTINUED - [id number] ([id number]) Indication:Fatty liver Start:18-Jul-2017 Instruction Type:Patient Education DISCONTINUED - PTT (Activate d Partial Thromboplastin Time) (37419) Indication:Fatty liver Start:18-Jul-2017 Instruction Type:Patient Education DISCONTINUED - PT (PROTHROMB IN TIME) ([id number]) Indication:Fatty liver Start:18-Jul-2017 Instruction Type:Patient Education DISCONTINUED - LIPID PANEL ( [id number]) Indication:Hyperlipidemia Start:18-Jul-2017 Instruction Type:Patient Education How to [...] Informa tion Online using Patient Portal and [employer] Apps Indication:Nonsmoker Start:17-Mar-2023 Instruction Type:Patient Education Patient Instructions Indication:UTI symptoms Start:24-Dec-2022 Instruction Type:Provider Instructions for Treatment How to Access Health Informa tion Online using Patient Portal and [employer] Apps Indication:UTI symptoms Start:24-Dec-2022 Instruction Type:Patient Education Patient Instructions Indication:Nonsmoker Start:07-Nov-2022 Instruction Type:Provider Instructions for Treatment How to Access Health Informa tion Online using Patient Portal and [employer] Apps Indication:Nonsmoker Start:07-Nov-2022 Instruction Type:Patient Education Patient Instructions Indication:UTI symptoms Start:24-Sep-2022 Instruction Type:Provider Instructions for Treatment How to Access Health Informa tion Online using Patient Portal and [employer] Apps Indication:UTI symptoms Start:24-Sep-2022 Instruction Type:Patient Education Patient Instructions Indication:BMI 31.0-31.9,adult Start:11-Mar-2022 Instruction Type:Provider Instructions for Treatment How to Access Health Informa tion Online using Patient Portal and [employer] Indication:BMI 31.0-31.9,adult Start:11-Mar-2022 Instruction Type:Patient Education Patient Instructions Indication:BMI 31.0-31.9,adult Start:11-Dec-2021 Instruction Type:Provider Instructions for Treatment How to Access Health Informa tion Online using Patient Portal and [employer] Indication:BMI 31.0-31.9,adult Start:11-Dec-2021 Instruction Type:Patient Education Patient Instructions Indication:Hyperlipidemia Start:26-Sep-2021 Instruction Type:Provider Instructions for Treatment How to Access Health Informa tion Online using Patient Portal and [employer] Apps Indication:Impaired Fasting Glucose Start:26-Sep-2021 Instruction Type:Patient Education Patient Instructions Indication:BMI 31.0-31.9,adult Start:08-Jun-2021 Instruction Type:Provider Instructions for Treatment How to Access Health Informa tion Online using Patient Portal and [employer] Indication:Impaired Fasting Glucose Start:08-Jun-2021 Instruction Type:Patient Education Patient Instructions Indication:Nonsmoker Start:19-Feb-2021 Instruction Type:Provider Instructions for Treatment How to Access Health Informa tion Online using Patient Portal and [employer] Indication:Nonsmoker Start:19-Feb-2021 Instruction Type:Patient Education Patient Instructions Indication:BMI 32.0-32.9,adult Start:30-Jan-2021 Instruction Type:Provider Instructions for Treatment How to Access Health Informa tion Online using Patient Portal and [employer] Indication:BMI 32.0-32.9,adult Start:30-Jan-2021 Instruction Type:Patient Education Patient Instructions Indication:BMI 32.0-32.9,adult Start:03-Jan-2021 Instruction Type:Provider Instructions for Treatment How to Access Health Informa tion Online using Patient Portal and [employer] Indication:BMI 32.0-32.9,adult Start:03-Jan-2021 Instruction Type:Patient Education [...] Treatment DISCONTINUED - METABOLIC ESPITIA EL, COMPREHENSIVE ([id number]) Indication:Renal Insufficiency (Renamed from Impaired renal function) Start:18-Jul-2017 Instruction Type:Patient Education DISCONTINUED - [id number] ([id number]) Indication:Fatty liver Start:18-Jul-2017 Instruction Type:Patient Education DISCONTINUED - PTT (Activate d Partial Thromboplastin Time) (15572) Indication:Fatty liver Start:18-Jul-2017 Instruction Type:Patient Education DISCONTINUED - PT (PROTHROMB IN TIME) ([id number]) Indication:Fatty liver Start:18-Jul-2017 Instruction Type:Patient Education DISCONTINUED - LIPID PANEL ( 36553) Indication:Hyperlipidemia Start:18-Jul-2017 Instruction Type:Patient Education How to [...] tion Online using Patient Portal and [employer] Indication:Nonsmoker Start:15-May-2023 Instruction Type:Patient Education Patient Instructions Indication:Nonsmoker Start:17-Mar-2023 Instruction Type:Provider Instructions for Treatment How to Access Health Informa tion Online using Patient Portal and [employer] Indication:Nonsmoker Start:17-Mar-2023 Instruction Type:Patient Education Patient Instructions Indication:UTI symptoms Start:24-Dec-2022 Instruction Type:Provider Instructions for Treatment How to Access Health Informa tion Online using Patient Portal and [employer] Indication:UTI symptoms Start:24-Dec-2022 Instruction Type:Patient Education Patient Instructions Indication:Nonsmoker Start:07-Nov-2022 Instruction Type:Provider Instructions for Treatment How to Access Health Informa tion Online using Patient Portal and [employer] Indication:Nonsmoker Start:07-Nov-2022 Instruction Type:Patient Education Patient Instructions Indication:UTI symptoms Start:24-Sep-2022 Instruction Type:Provider Instructions for Treatment How to Access Health Informa tion Online using Patient Portal and [employer] Indication:UTI symptoms Start:24-Sep-2022 Instruction Type:Patient Education Patient Instructions Indication:BMI 31.0-31.9,adult Start:11-Mar-2022 Instruction Type:Provider Instructions for Treatment How to Access Health Informa tion Online using Patient Portal and [employer] Indication:BMI 31.0-31.9,adult Start:11-Mar-2022 Instruction Type:Patient Education Patient Instructions Indication:BMI 31.0-31.9,adult Start:11-Dec-2021 Instruction Type:Provider Instructions for Treatment How to Access Health Informa tion Online using Patient Portal and [employer] Indication:BMI 31.0-31.9,adult Start:11-Dec-2021 Instruction Type:Patient Education Patient Instructions Indication:Hyperlipidemia Start:26-Sep-2021 Instruction Type:Provider Instructions for Treatment How to Access Health Informa tion Online using Patient Portal and [employer] Indication:Impaired Fasting Glucose Start:26-Sep-2021 Instruction Type:Patient Education Patient Instructions Indication:BMI 31.0-31.9,adult Start:08-Jun-2021 Instruction Type:Provider Instructions for Treatment How to Access Health Informa tion Online using Patient Portal and [employer] Indication:Impaired Fasting Glucose Start:08-Jun-2021 Instruction Type:Patient Education Patient Instructions Indication:Nonsmoker Start:19-Feb-2021 Instruction Type:Provider Instructions for Treatment How to Access Health Informa tion Online using Patient Portal and [employer] Apps Indication:Nonsmoker Start:19-Feb-2021 Instruction Type:Patient Education Patient Instructions Indication:BMI 32.0-32.9,adult Start:30-Jan-2021 Instruction Type:Provider Instructions for Treatment How to Access Health Informa tion Online using Patient Portal and [employer] Indication:BMI 32.0-32.9,adult Start:30-Jan-2021 Instruction Type:Patient Education Patient Instructions Indication:BMI 32.0-32.9,adult Start:03-Jan-2021 Instruction Type:Provider Instructions for Treatment How to Access Health Informa tion Online using Patient Portal and [employer] Indication:BMI 32.0-32.9,adult Start:03-Jan-2021 Instruction Type:Patient Education [...] Treatment DISCONTINUED - METABOLIC ESPITIA EL, COMPREHENSIVE (16653) Indication:Renal Insufficiency (Renamed from Impaired renal function) Start:18-Jul-2017 Instruction Type:Patient Education DISCONTINUED - [id number] (71661) Indication:Fatty liver Start:18-Jul-2017 Instruction Type:Patient Education DISCONTINUED - PTT (Activate d Partial Thromboplastin Time) (50442) Indication:Fatty liver Start:18-Jul-2017 Instruction Type:Patient Education DISCONTINUED - PT (PROTHROMB IN TIME) (81671) Indication:Fatty liver Start:18-Jul-2017 Instruction Type:Patient Education DISCONTINUED - LIPID PANEL ( 37381) Indication:Hyperlipidemia Start:18-Jul-2017 Instruction Type:Patient Education How to [...] for Treatment How to access health informa [employer] online Indication:Impaired Fasting Glucose Start:19-Oct-2014 Instruction Type:Patient [...] tion Online using Patient Portal and [employer] Apps Indication:Nonsmoker Start:15-May-2023 Instruction Type:Patient Education Patient Instructions Indication:Nonsmoker Start:17-Mar-2023 Instruction Type:Provider Instructions for Treatment How to Access Health Informa tion Online using Patient Portal and [employer] Apps Indication:Nonsmoker Start:17-Mar-2023 Instruction Type:Patient Education Patient Instructions Indication:UTI symptoms Start:24-Dec-2022 Instruction Type:Provider Instructions for Treatment How to Access Health Informa tion Online using Patient Portal and [employer] Apps Indication:UTI symptoms Start:24-Dec-2022 Instruction Type:Patient Education Patient Instructions Indication:Nonsmoker Start:07-Nov-2022 Instruction Type:Provider Instructions for Treatment How to Access Health Informa tion Online using Patient Portal and [employer] Apps Indication:Nonsmoker Start:07-Nov-2022 Instruction Type:Patient Education Patient Instructions Indication:UTI symptoms Start:24-Sep-2022 Instruction Type:Provider Instructions for Treatment How to Access Health Informa tion Online using Patient Portal and [employer] Apps Indication:UTI symptoms Start:24-Sep-2022 Instruction Type:Patient Education Patient Instructions Indication:BMI 31.0-31.9,adult Start:11-Mar-2022 Instruction Type:Provider Instructions for Treatment How to Access Health Informa tion Online using Patient Portal and [employer] Indication:BMI 31.0-31.9,adult Start:11-Mar-2022 Instruction Type:Patient Education Patient Instructions Indication:BMI 31.0-31.9,adult Start:11-Dec-2021 Instruction Type:Provider Instructions for Treatment How to Access Health Informa tion Online using Patient Portal and [employer] Indication:BMI 31.0-31.9,adult Start:11-Dec-2021 Instruction Type:Patient Education Patient Instructions Indication:Hyperlipidemia Start:26-Sep-2021 Instruction Type:Provider Instructions for Treatment How to Access Health Informa tion Online using Patient Portal and [employer] Indication:Impaired Fasting Glucose Start:26-Sep-2021 Instruction Type:Patient Education Patient Instructions Indication:BMI 31.0-31.9,adult Start:08-Jun-2021 Instruction Type:Provider Instructions for Treatment How to Access Health Informa tion Online using Patient Portal and [employer] Indication:Impaired Fasting Glucose Start:08-Jun-2021 Instruction Type:Patient Education Patient Instructions Indication:Nonsmoker Start:19-Feb-2021 Instruction Type:Provider Instructions for Treatment How to Access Health Informa tion Online using Patient Portal and [employer] Indication:Nonsmoker Start:19-Feb-2021 Instruction Type:Patient Education Patient Instructions Indication:BMI 32.0-32.9,adult Start:30-Jan-2021 Instruction Type:Provider Instructions for Treatment How to Access Health Informa tion Online using Patient Portal and [employer] Indication:BMI 32.0-32.9,adult Start:30-Jan-2021 Instruction Type:Patient Education Patient Instructions Indication:BMI 32.0-32.9,adult Start:03-Jan-2021 Instruction Type:Provider Instructions for Treatment How to Access Health Informa tion Online using Patient Portal and [employer] Indication:BMI 32.0-32.9,adult Start:03-Jan-2021 Instruction Type:Patient Education [...] Treatment DISCONTINUED - METABOLIC ESPITIA EL, COMPREHENSIVE (64922) Indication:Renal Insufficiency (Renamed from Impaired renal function) Start:18-Jul-2017 Instruction Type:Patient Education DISCONTINUED - [id number] (55193) Indication:Fatty liver Start:18-Jul-2017 Instruction Type:Patient Education DISCONTINUED - PTT (Activate d Partial Thromboplastin Time) (03083) Indication:Fatty liver Start:18-Jul-2017 Instruction Type:Patient Education DISCONTINUED - PT (PROTHROMB IN TIME) (81232) Indication:Fatty liver Start:18-Jul-2017 Instruction Type:Patient Education DISCONTINUED - LIPID PANEL ( 24573) Indication:Hyperlipidemia Start:18-Jul-2017 Instruction Type:Patient Education How to [...] tion Online using Patient Portal and [employer] Indication:Nonsmoker Start:15-May-2023 Instruction Type:Patient Education Patient Instructions Indication:Nonsmoker Start:17-Mar-2023 Instruction Type:Provider Instructions for Treatment How to Access Health Informa tion Online using Patient Portal and [employer] Apps Indication:Nonsmoker Start:17-Mar-2023 Instruction Type:Patient Education Patient Instructions Indication:UTI symptoms Start:24-Dec-2022 Instruction Type:Provider Instructions for Treatment How to Access Health Informa tion Online using Patient Portal and [employer] Indication:UTI symptoms Start:24-Dec-2022 Instruction Type:Patient Education Patient Instructions Indication:Nonsmoker Start:07-Nov-2022 Instruction Type:Provider Instructions for Treatment How to Access Health Informa tion Online using Patient Portal and [employer] Apps Indication:Nonsmoker Start:07-Nov-2022 Instruction Type:Patient Education Patient Instructions Indication:UTI symptoms Start:24-Sep-2022 Instruction Type:Provider Instructions for Treatment How to Access Health Informa tion Online using Patient Portal and [employer] Indication:UTI symptoms Start:24-Sep-2022 Instruction Type:Patient Education Patient Instructions Indication:BMI 31.0-31.9,adult Start:11-Mar-2022 Instruction Type:Provider Instructions for Treatment How to Access Health Informa tion Online using Patient Portal and [employer] Indication:BMI 31.0-31.9,adult Start:11-Mar-2022 Instruction Type:Patient Education Patient Instructions Indication:BMI 31.0-31.9,adult Start:11-Dec-2021 Instruction Type:Provider Instructions for Treatment How to Access Health Informa tion Online using Patient Portal and [employer] Indication:BMI 31.0-31.9,adult Start:11-Dec-2021 Instruction Type:Patient Education Patient Instructions Indication:Hyperlipidemia Start:26-Sep-2021 Instruction Type:Provider Instructions for Treatment How to Access Health Informa tion Online using Patient Portal and [employer] Indication:Impaired Fasting Glucose Start:26-Sep-2021 Instruction Type:Patient Education Patient Instructions Indication:BMI 31.0-31.9,adult Start:08-Jun-2021 Instruction Type:Provider Instructions for Treatment How to Access Health Informa tion Online using Patient Portal and [employer] Indication:Impaired Fasting Glucose Start:08-Jun-2021 Instruction Type:Patient Education Patient Instructions Indication:Nonsmoker Start:19-Feb-2021 Instruction Type:Provider Instructions for Treatment How to Access Health Informa tion Online using Patient Portal and [employer] Indication:Nonsmoker Start:19-Feb-2021 Instruction Type:Patient Education Patient Instructions Indication:BMI 32.0-32.9,adult Start:30-Jan-2021 Instruction Type:Provider Instructions for Treatment How to Access Health Informa tion Online using Patient Portal and [employer] Indication:BMI 32.0-32.9,adult Start:30-Jan-2021 Instruction Type:Patient Education Patient Instructions Indication:BMI 32.0-32.9,adult Start:03-Jan-2021 Instruction Type:Provider Instructions for Treatment How to Access Health Informa tion Online using Patient Portal and [employer] Indication:BMI 32.0-32.9,adult Start:03-Jan-2021 Instruction Type:Patient Education [...] Treatment DISCONTINUED - METABOLIC ESPITIA EL, COMPREHENSIVE (54307) Indication:Renal Insufficiency (Renamed from Impaired renal function) Start:18-Jul-2017 Instruction Type:Patient Education DISCONTINUED - [id number] (24523) Indication:Fatty liver Start:18-Jul-2017 Instruction Type:Patient Education DISCONTINUED - PTT (Activate d Partial Thromboplastin Time) (75301) Indication:Fatty liver Start:18-Jul-2017 Instruction Type:Patient Education DISCONTINUED - PT (PROTHROMB IN TIME) (43468) Indication:Fatty liver Start:18-Jul-2017 Instruction Type:Patient Education DISCONTINUED - LIPID PANEL ( 68805) Indication:Hyperlipidemia Start:18-Jul-2017 Instruction Type:Patient Education How to [...] tion Online using Patient Portal and [employer] Indication:BMI 32.0-32.9,adult Start:03-Oct-2023 Instruction Type:Patient Education Patient Instructions Indication:Nonsmoker Start:15-May-2023 Instruction Type:Provider Instructions for Treatment How to Access Health Informa tion Online using Patient Portal and [employer] Indication:Nonsmoker Start:15-May-2023 Instruction Type:Patient Education Patient Instructions Indication:Nonsmoker Start:17-Mar-2023 Instruction Type:Provider Instructions for Treatment How to Access Health Informa tion Online using Patient Portal and [employer] Indication:Nonsmoker Start:17-Mar-2023 Instruction Type:Patient Education Patient Instructions Indication:UTI symptoms Start:24-Dec-2022 Instruction Type:Provider Instructions for Treatment How to Access Health Informa tion Online using Patient Portal and [employer] Indication:UTI symptoms Start:24-Dec-2022 Instruction Type:Patient Education Patient Instructions Indication:Nonsmoker Start:07-Nov-2022 Instruction Type:Provider Instructions for Treatment How to Access Health Informa tion Online using Patient Portal and [employer] Indication:Nonsmoker Start:07-Nov-2022 Instruction Type:Patient Education Patient Instructions Indication:UTI symptoms Start:24-Sep-2022 Instruction Type:Provider Instructions for Treatment How to Access Health Informa tion Online using Patient Portal and [employer] Indication:UTI symptoms Start:24-Sep-2022 Instruction Type:Patient Education Patient Instructions Indication:BMI 31.0-31.9,adult Start:11-Mar-2022 Instruction Type:Provider Instructions for Treatment How to Access Health Informa tion Online using Patient Portal and [employer] Indication:BMI 31.0-31.9,adult Start:11-Mar-2022 Instruction Type:Patient Education Patient Instructions Indication:BMI 31.0-31.9,adult Start:11-Dec-2021 Instruction Type:Provider Instructions for Treatment How to Access Health Informa tion Online using Patient Portal and [employer] Indication:BMI 31.0-31.9,adult Start:11-Dec-2021 Instruction Type:Patient Education Patient Instructions Indication:Hyperlipidemia Start:26-Sep-2021 Instruction Type:Provider Instructions for Treatment How to Access Health Informa tion Online using Patient Portal and [employer] Indication:Impaired Fasting Glucose Start:26-Sep-2021 Instruction Type:Patient Education Patient Instructions Indication:BMI 31.0-31.9,adult Start:08-Jun-2021 Instruction Type:Provider Instructions for Treatment How to Access Health Informa tion Online using Patient Portal and [employer] Indication:Impaired Fasting Glucose Start:08-Jun-2021 Instruction Type:Patient Education Patient Instructions Indication:Nonsmoker Start:19-Feb-2021 Instruction Type:Provider Instructions for Treatment How to Access Health Informa tion Online using Patient Portal and [employer] Indication:Nonsmoker Start:19-Feb-2021 Instruction Type:Patient Education Patient Instructions Indication:BMI 32.0-32.9,adult Start:30-Jan-2021 Instruction Type:Provider Instructions for Treatment How to Access Health Informa tion Online using Patient Portal and [employer] Indication:BMI 32.0-32.9,adult Start:30-Jan-2021 Instruction Type:Patient Education Patient Instructions Indication:BMI 32.0-32.9,adult Start:03-Jan-2021 Instruction Type:Provider Instructions for Treatment How to Access Health Informa tion Online using Patient Portal and [employer] Indication:BMI 32.0-32.9,adult Start:03-Jan-2021 Instruction Type:Patient Education [...] Treatment DISCONTINUED - METABOLIC ESPITIA EL, COMPREHENSIVE (21454) Indication:Renal Insufficiency (Renamed from Impaired renal function) Start:18-Jul-2017 Instruction Type:Patient Education DISCONTINUED - [id number] (74742) Indication:Fatty liver Start:18-Jul-2017 Instruction Type:Patient Education DISCONTINUED - PTT (Activate d Partial Thromboplastin Time) (39432) Indication:Fatty liver Start:18-Jul-2017 Instruction Type:Patient Education DISCONTINUED - PT (PROTHROMB IN TIME) (27711) Indication:Fatty liver Start:18-Jul-2017 Instruction Type:Patient Education DISCONTINUED - LIPID PANEL ( 71157) Indication:Hyperlipidemia Start:18-Jul-2017 Instruction Type:Patient Education How to [...] for Treatment How to access health informa [employer] online Indication:Poison debi Start:31-May-2015 Instruction Type:Patient Education How to access health informa tion online - Detail Indication:Poison debi Start:31-May-2015 Instruction Type:Patient Education Patient Instructions Indication:Poison debi Start:31-May-2015 Instruction Type:Provider Instructions for Treatment Patient Instructions Indication:Impaired Fasting Glucose Start:15-Feb-2015 Instruction Type:Provider Instructions for Treatment How to access health informa [employer] online Indication:Impaired Fasting Glucose Start:19-Oct-2014 Instruction Type:Patient Education How to access health informa tion online - Detail Indication:Impaired Fasting Glucose Start:19-Oct-2014 Instruction Type:Patient Education Patient Instructions Indication:Impaired Fasting Glucose Start:19-Oct-2014 Instruction Type:Provider Instructions for Treatment How to access health informa [employer] online Indication:Impaired Fasting Glucose Start:20-Jul-2014 Instruction Type:Patient [...] note No data available for this section [facility] Reason for referral (narrative)No reason for referral [facility]: Family History No Family History [...] function) : DISCONTINUED - METABOLIC PANEL, COMPREHENSIVE (51438) Indication:Renal Insufficiency (Renamed from Impaired renal function) Fatty liver : DISCONTINUED - [id number] (70315) Indication:Fatty liver Fatty liver : DISCONTINUED - PTT (Activated Partial Thromboplastin Time) (28767) Indication:Fatty liver Fatty liver : DISCONTINUED - PT (PROTHROMBIN TIME) (03188) Indication:Fatty liver Hyperlipidemia : DISCONTINUE D - LIPID PANEL (87709) Indication:Hyperlipidemia Dysuria : How to access heal [...] wellness exam Vaginal yeast infection : Pa taylornt Instructions Indication:Vaginal yeast infection Diverticulitis : Patient [...] function) : DISCONTINUED - METABOLIC PANEL, COMPREHENSIVE (36227) Indication:Renal Insufficiency (Renamed from Impaired renal function) Fatty liver : DISCONTINUED - [id number] (83367) Indication:Fatty liver Fatty liver : DISCONTINUED - PTT (Activated Partial Thromboplastin Time) (07844) Indication:Fatty liver Fatty liver : DISCONTINUED - PT (PROTHROMBIN TIME) (00376) Indication:Fatty liver Hyperlipidemia : DISCONTINUE D - LIPID PANEL (95008) Indication:Hyperlipidemia Dysuria : How to access heal [...] function) : DISCONTINUED - METABOLIC PANEL, COMPREHENSIVE (24073) Indication:Renal Insufficiency (Renamed from Impaired renal function) Fatty liver : DISCONTINUED - [id number] (38396) Indication:Fatty liver Fatty liver : DISCONTINUED - PTT (Activated Partial Thromboplastin Time) (64598) Indication:Fatty liver Fatty liver : DISCONTINUED - PT (PROTHROMBIN TIME) (64720) Indication:Fatty liver Hyperlipidemia : DISCONTINUE D - LIPID PANEL (68774) Indication:Hyperlipidemia Dysuria : How to access heal [...] Treatment DISCONTINUED - METABOLIC ESPITIA EL, COMPREHENSIVE (12518) Indication:Renal Insufficiency (Renamed from Impaired renal function) Start:18-Jul-2017 Instruction Type:Patient Education DISCONTINUED - [id number] (21305) Indication:Fatty liver Start:18-Jul-2017 Instruction Type:Patient Education DISCONTINUED - PTT (Activate d Partial Thromboplastin Time) (20408) Indication:Fatty liver Start:18-Jul-2017 Instruction Type:Patient Education DISCONTINUED - PT (PROTHROMB IN TIME) (90739) Indication:Fatty liver Start:18-Jul-2017 Instruction Type:Patient Education DISCONTINUED - LIPID PANEL ( 01237) Indication:Hyperlipidemia Start:18-Jul-2017 Instruction Type:Patient Education How to [...] for Treatment How to access health informa [employer] online Indication:Poison debi Start:31-May-2015 Instruction Type:Patient Education [...] Treatment Name Dates Details How to access [employer] Indication:Urinary frequency Start:02-Dec-2018 Instruction Type:Patient Education How to access [employer] online - Detail Indication:Urinary frequency Start:02-Dec-2018 Instruction [...] Treatment DISCONTINUED - METABOLIC ESPITIA EL, COMPREHENSIVE (20577) Indication:Renal Insufficiency (Renamed from Impaired renal function) Start:18-Jul-2017 Instruction Type:Patient Education DISCONTINUED - [id number] (02292) Indication:Fatty liver Start:18-Jul-2017 Instruction Type:Patient Education DISCONTINUED - PTT (Activate d Partial Thromboplastin Time) (46908) Indication:Fatty liver Start:18-Jul-2017 Instruction Type:Patient Education DISCONTINUED - PT (PROTHROMB IN TIME) (98606) Indication:Fatty liver Start:18-Jul-2017 Instruction Type:Patient Education DISCONTINUED - LIPID PANEL ( 87632) Indication:Hyperlipidemia Start:18-Jul-2017 Instruction Type:Patient Education How to [...] Treatment DISCONTINUED - METABOLIC ESPITIA EL, COMPREHENSIVE (37384) Indication:Renal Insufficiency (Renamed from Impaired renal function) Start:18-Jul-2017 Instruction Type:Patient Education DISCONTINUED - [id number]-GRFLS (00959) Indication:Fatty liver Start:18-Jul-2017 Instruction Type:Patient Education DISCONTINUED - PTT (Activate d Partial Thromboplastin Time) (11741) Indication:Fatty liver Start:18-Jul-2017 Instruction Type:Patient Education DISCONTINUED - PT (PROTHROMB IN TIME) (11234) Indication:Fatty liver Start:18-Jul-2017 Instruction Type:Patient Education DISCONTINUED - LIPID PANEL ( 43738) Indication:Hyperlipidemia Start:18-Jul-2017 Instruction Type:Patient Education How to [...] Name Dates Details How to access health [place] [employer] online Indication:Urinary frequency Start:14-Oct-2019 Instruction Type:Patient Education How to access health informa tion online - Detail Indication:Urinary frequency Start:14-Oct-2019 Instruction Type:Patient Education Patient Instructions Indication:Urinary frequency Start:14-Oct-2019 Instruction Type:Provider Instructions for Treatment How to access health informa [employer] online Indication:Urinary frequency Start:02-Dec-2018 Instruction Type:Patient Education [...] Treatment DISCONTINUED - METABOLIC ESPITIA EL, COMPREHENSIVE (25161) Indication:Renal Insufficiency (Renamed from Impaired renal function) Start:18-Jul-2017 Instruction Type:Patient Education DISCONTINUED - [id number] (12168) Indication:Fatty liver Start:18-Jul-2017 Instruction Type:Patient Education DISCONTINUED - PTT (Activate d Partial Thromboplastin Time) (24909) Indication:Fatty liver Start:18-Jul-2017 Instruction Type:Patient Education DISCONTINUED - PT (PROTHROMB IN TIME) (33281) Indication:Fatty liver Start:18-Jul-2017 Instruction Type:Patient Education DISCONTINUED - LIPID PANEL ( 14391) Indication:Hyperlipidemia Start:18-Jul-2017 Instruction Type:Patient Education How to [...] Name Dates Details How to access health [place] tion online Indication:Nonsmoker Start:21-Jun-2020 Instruction Type:Patient Education How to access health informa [employer] online - Detail Indication:Nonsmoker Start:21-Jun-2020 Instruction Type:Patient [...] Treatment DISCONTINUED - METABOLIC ESPITIA EL, COMPREHENSIVE (66194) Indication:Renal Insufficiency (Renamed from Impaired renal function) Start:18-Jul-2017 Instruction Type:Patient Education DISCONTINUED - [id number] (04452) Indication:Fatty liver Start:18-Jul-2017 Instruction Type:Patient Education DISCONTINUED - PTT (Activate d Partial Thromboplastin Time) (26686) Indication:Fatty liver Start:18-Jul-2017 Instruction Type:Patient Education DISCONTINUED - PT (PROTHROMB IN TIME) (40550) Indication:Fatty liver Start:18-Jul-2017 Instruction Type:Patient Education DISCONTINUED - LIPID PANEL ( 64700) Indication:Hyperlipidemia Start:18-Jul-2017 Instruction Type:Patient Education How to [...] Treatment DISCONTINUED - METABOLIC ESPITIA EL, COMPREHENSIVE (27806) Indication:Renal Insufficiency (Renamed from Impaired renal function) Start:18-Jul-2017 Instruction Type:Patient Education DISCONTINUED - [id number] (35678) Indication:Fatty liver Start:18-Jul-2017 Instruction Type:Patient Education DISCONTINUED - PTT (Activate d Partial Thromboplastin Time) (48378) Indication:Fatty liver Start:18-Jul-2017 Instruction Type:Patient Education DISCONTINUED - PT (PROTHROMB IN TIME) (15126) Indication:Fatty liver Start:18-Jul-2017 Instruction Type:Patient Education DISCONTINUED - LIPID PANEL ( 55991) Indication:Hyperlipidemia Start:18-Jul-2017 Instruction Type:Patient Education How to [...] Treatment Name Dates Details How to access [employer] Indication:Nonsmoker Start:18-Sep-2020 Instruction Type:Patient Education How to [...] Treatment DISCONTINUED - METABOLIC ESPITIA EL, COMPREHENSIVE (44017) Indication:Renal Insufficiency (Renamed from Impaired renal function) Start:18-Jul-2017 Instruction Type:Patient Education DISCONTINUED - [id number] (77135) Indication:Fatty liver Start:18-Jul-2017 Instruction Type:Patient Education DISCONTINUED - PTT (Activate d Partial Thromboplastin Time) (71033) Indication:Fatty liver Start:18-Jul-2017 Instruction Type:Patient Education DISCONTINUED - PT (PROTHROMB IN TIME) (72865) Indication:Fatty liver Start:18-Jul-2017 Instruction Type:Patient Education DISCONTINUED - LIPID PANEL ( 32842) Indication:Hyperlipidemia Start:18-Jul-2017 Instruction Type:Patient Education How to [...] Treatment DISCONTINUED - METABOLIC ESPITIA EL, COMPREHENSIVE (00749) Indication:Renal Insufficiency (Renamed from Impaired renal function) Start:18-Jul-2017 Instruction Type:Patient Education DISCONTINUED - [id number] (96660) Indication:Fatty liver Start:18-Jul-2017 Instruction Type:Patient Education DISCONTINUED - PTT (Activate d Partial Thromboplastin Time) (45054) Indication:Fatty liver Start:18-Jul-2017 Instruction Type:Patient Education DISCONTINUED - PT (PROTHROMB IN TIME) (40928) Indication:Fatty liver Start:18-Jul-2017 Instruction Type:Patient Education DISCONTINUED - LIPID PANEL ( 29409) Indication:Hyperlipidemia Start:18-Jul-2017 Instruction Type:Patient Education How to [...] Informa tion Online using Patient Portal and [employer] Indication:BMI 32.0-32.9,adult Start:03-Jan-2021 Instruction Type:Patient Education [...] Treatment DISCONTINUED - METABOLIC ESPITIA EL, COMPREHENSIVE (22460) Indication:Renal Insufficiency (Renamed from Impaired renal function) Start:18-Jul-2017 Instruction Type:Patient Education DISCONTINUED - [id number] (61554) Indication:Fatty liver Start:18-Jul-2017 Instruction Type:Patient Education DISCONTINUED - PTT (Activate d Partial Thromboplastin Time) (71035) Indication:Fatty liver Start:18-Jul-2017 Instruction Type:Patient Education DISCONTINUED - PT (PROTHROMB IN TIME) (09593) Indication:Fatty liver Start:18-Jul-2017 Instruction Type:Patient Education DISCONTINUED - LIPID PANEL ( 16358) Indication:Hyperlipidemia Start:18-Jul-2017 Instruction Type:Patient Education How to [...] tion Online using Patient Portal and [employer] Apps Indication:BMI 32.0-32.9,adult Start:30-Jan-2021 Instruction Type:Patient Education Patient Instructions Indication:BMI 32.0-32.9,adult Start:03-Jan-2021 Instruction Type:Provider Instructions for Treatment How to Access Health Informa tion Online using Patient Portal and [employer] Apps Indication:BMI 32.0-32.9,adult Start:03-Jan-2021 Instruction Type:Patient Education [...] Treatment DISCONTINUED - METABOLIC ESPITIA EL, COMPREHENSIVE (87940) Indication:Renal Insufficiency (Renamed from Impaired renal function) Start:18-Jul-2017 Instruction Type:Patient Education DISCONTINUED - [id number] (17392) Indication:Fatty liver Start:18-Jul-2017 Instruction Type:Patient Education DISCONTINUED - PTT (Activate d Partial Thromboplastin Time) (17635) Indication:Fatty liver Start:18-Jul-2017 Instruction Type:Patient Education DISCONTINUED - PT (PROTHROMB IN TIME) (23597) Indication:Fatty liver Start:18-Jul-2017 Instruction Type:Patient Education DISCONTINUED - LIPID PANEL ( 18322) Indication:Hyperlipidemia Start:18-Jul-2017 Instruction Type:Patient Education How to [...] Informa tion Online using Patient Portal and [employer] Apps Indication:BMI 32.0-32.9,adult Start:30-Jan-2021 Instruction Type:Patient Education Patient Instructions Indication:BMI 32.0-32.9,adult Start:03-Jan-2021 Instruction Type:Provider Instructions for Treatment How to Access Health Informa tion Online using Patient Portal and [employer] Apps Indication:BMI 32.0-32.9,adult Start:03-Jan-2021 Instruction Type:Patient Education [...] Treatment DISCONTINUED - METABOLIC ESPITIA EL, COMPREHENSIVE (91243) Indication:Renal Insufficiency (Renamed from Impaired renal function) Start:18-Jul-2017 Instruction Type:Patient Education DISCONTINUED - [id number] (51390) Indication:Fatty liver Start:18-Jul-2017 Instruction Type:Patient Education DISCONTINUED - PTT (Activate d Partial Thromboplastin Time) (92072) Indication:Fatty liver Start:18-Jul-2017 Instruction Type:Patient Education DISCONTINUED - PT (PROTHROMB IN TIME) (68031) Indication:Fatty liver Start:18-Jul-2017 Instruction Type:Patient Education DISCONTINUED - LIPID PANEL ( 34930) Indication:Hyperlipidemia Start:18-Jul-2017 Instruction Type:Patient Education How to [...] tion Online using Patient Portal and [employer] Apps Indication:Nonsmoker Start:19-Feb-2021 Instruction Type:Patient Education Patient Instructions Indication:BMI 32.0-32.9,adult Start:30-Jan-2021 Instruction Type:Provider Instructions for Treatment How to Access Health Informa tion Online using Patient Portal and [employer] Apps Indication:BMI 32.0-32.9,adult Start:30-Jan-2021 Instruction Type:Patient Education Patient Instructions Indication:BMI 32.0-32.9,adult Start:03-Jan-2021 Instruction Type:Provider Instructions for Treatment How to Access Health Informa tion Online using Patient Portal and [employer] Apps Indication:BMI 32.0-32.9,adult Start:03-Jan-2021 Instruction Type:Patient Education [...] Treatment DISCONTINUED - METABOLIC ESPITIA EL, COMPREHENSIVE (46402) Indication:Renal Insufficiency (Renamed from Impaired renal function) Start:18-Jul-2017 Instruction Type:Patient Education DISCONTINUED - [id number] (21687) Indication:Fatty liver Start:18-Jul-2017 Instruction Type:Patient Education DISCONTINUED - PTT (Activate d Partial Thromboplastin Time) (35360) Indication:Fatty liver Start:18-Jul-2017 Instruction Type:Patient Education DISCONTINUED - PT (PROTHROMB IN TIME) (66332) Indication:Fatty liver Start:18-Jul-2017 Instruction Type:Patient Education DISCONTINUED - LIPID PANEL ( 01125) Indication:Hyperlipidemia Start:18-Jul-2017 Instruction Type:Patient Education How to [...] Treatment DISCONTINUED - METABOLIC ESPITIA EL, COMPREHENSIVE (53501) Indication:Renal Insufficiency (Renamed from Impaired renal function) Start:18-Jul-2017 Instruction Type:Patient Education DISCONTINUED - [id number] (48042) Indication:Fatty liver Start:18-Jul-2017 Instruction Type:Patient Education DISCONTINUED - PTT (Activate d Partial Thromboplastin Time) (33624) Indication:Fatty liver Start:18-Jul-2017 Instruction Type:Patient Education DISCONTINUED - PT (PROTHROMB IN TIME) (25138) Indication:Fatty liver Start:18-Jul-2017 Instruction Type:Patient Education DISCONTINUED - LIPID PANEL ( 06205) Indication:Hyperlipidemia Start:18-Jul-2017 Instruction Type:Patient Education How to [...] Visit Admit Date Encounter for pessary maintenance Februa 2024 10:11am Vaginal pessary in situ January 03 10:11am Cystocele and rectocele with incomplete uterovaginal prolapse January 03, 2025 10:11am Breast lesion on mammography January 182024 8:20am Breast cancer, left breast February 11, 2 025 12:44pm Chief Complaint Admit Date 3 M [...] 8:20am Breast cancer, left breast February 11, 2 025 12:44pm Breast cancer, left breast March 09 1:53pm Breast cancer, left breast March 16 2 025 9:10am Breast cancer, left breast [...] 8:20am Breast cancer, left breast February 11, 2 025 12:44pm Breast cancer, left breast March 09 1:53pm Breast cancer, left breast March 16 9:10am Breast cancer, left breast March 25 [...] Admit Date Breast cancer, left breast February 11 12:44pm Breast cancer, left breast March 09 1:53pm Breast cancer, left breast March 16, 2 025 9:10am Breast cancer, left breast March 25, 2 [...] Date Breast cancer, left breast February 11, 025 [...] Date Breast cancer, left breast March 25, 025 10:13am Encounter for pessary maintenance March h2024 10:12am Vaginal pessary in situ April [...] Yes February 28, 2022 2:11pm Power of News Broadcaster Yes February 28 2:11pm Advance Directive Response Recorded Date/ Time Name of Medical Power of News Broadcaster Dylan Arechiga February 28, 2022 2:11pm Name of Medical Power of News Broadcaster May 16, 2022 1:03am Advance Directives Yes October 05, 2019 10:38am Living Will Yes May 16, 2022 1:03am Power of News Broadcaster Yes May 16 1:03am Advance Directive Response Recorded Date/ Time Advance Directives Yes October 05, 2019 9:38am Living Will Yes May 16, 2022 12:03am Power of News Broadcaster Yes May 16 12:03am Advance Directive Response Recorded Date/ Time Name of Medical Power of News Broadcaster PRASANNA March 09, 2023 12:01am Advance Directives Yes October 05, 2019 10:38am Living Will Yes March 09, 2023 12:01am Power of News Broadcaster Yes March 09 12:01am Advance Directive Response Recorded Date/ Time Name of Medical Power of News Broadcaster PRASANNA March 09, 2023 12:01am Name of Medical Power of News Broadcaster DYLAN ARECHIGA - March 10, 2023 7:00pm Advance Directives Yes October 05, 2019 10:38am Living Will Yes March 10, 2023 7:00pm Power of News Broadcaster Yes March 10 7:00pm Advance Directive Response Recorded Date/ Time Name of Medical Power of News Broadcaster PRASANNA March 09, 2023 12:01am Name of Medical Power of News Broadcaster DYLAN ARECHIGA - March 10, 2023 7:00pm Name of Medical Power of News Broadcaster Tank May 21, 2023 11:29am Advance Directives Yes October 05, 2019 10:38am Living Will Yes May 21, 2023 11:29am Power of News Broadcaster Yes May 21 11:29am Advance Directive Response Recorded Date/ Time Name of Medical Power of News Broadcaster Tank May 21, 2023 11:29am Advance Directives Yes October 05, 2019 10:38am Living Will Yes May 21, 2023 11:29am Power of News Broadcaster Yes May 21 11:29am Advance Directive Response Recorded Date/ Time Advance Directives Yes October 05, 2019 9:38am Living Will Yes May 21, 2023 10:29am Power of News Broadcaster Yes May 21 10:29am Advance Directive Response Recorded Date/ Time Living Will Yes February 15, 2025 11:03am Do you have a Healthcare Power of News Broadcaster? Yes February 15, 2025 11:03am Name of Medical Power of News Broadcaster SON February 15, 2025 11:03am Living Will Yes January 20 3:36pm Do you have a Healthcare Power of News Broadcaster? Yes January 20, 2025 3:36pm Name of Medical Power of News Broadcaster PABLO January 20, 2025 3:36pm Advance Directives Yes October 05, 2019 10:38am Advance Directive Response Recorded Date/ Time Living Will Yes February 15, 2025 11:03am Do you have a Healthcare Power of News Broadcaster? Yes February 15, 2025 11:03am Name of Medical Power of News Broadcaster SON February 15, 2025 11:03am Do you have a Healthcare Power of News Broadcaster? Yes April 04, 2025 1:57pm Do you have a Healthcare Power of News Broadcaster? Yes April 07, 2025 10:33am Living Will Yes January 20 3:36pm Do you have a Healthcare Power of News Broadcaster? Yes January 20, 2025 3:36pm Name of Medical Power of News Broadcaster PABLO January 20, 2025 3:36pm Advance Directives Yes October 05, 2019 10:38am Advance Directive Response Recorded Date/ Time Living Will Yes February 15, 2025 11:03am Do you have a Healthcare Power of News Broadcaster? Yes February 15, 2025 11:03am Name of Medical Power of News Broadcaster SON February 15, 2025 11:03am Do you have a Healthcare Power of News Broadcaster? Yes April 04, 2025 1:57pm Do you have a Healthcare Power of News Broadcaster? Yes April 07, 2025 10:33am Do you have a Healthcare Power of News Broadcaster? No April 11, 2025 4:09am Living Will Yes January 20 3:36pm Do you have a Healthcare Power of News Broadcaster? Yes January 20, 2025 3:36pm Name of Medical Power of News Broadcaster PABLO January 20, 2025 3:36pm Advance Directives Yes October 05, 2019 10:38am Advance Directive Response Recorded Date/ Time Living Will Yes February 15, 2025 11:03am Do you have a Healthcare Power of News Broadcaster? Yes February 15, 2025 11:03am Name of Medical Power of News Broadcaster SON February 15, 2025 11:03am Do you have a Healthcare Power of News Broadcaster? Yes April 04, 2025 1:57pm Do you have a Healthcare Power of News Broadcaster? Yes April 07, 2025 10:33am Do you have a Healthcare Power of News Broadcaster? No April 11, 2025 4:09am Do you have a Healthcare Power of News Broadcaster? Yes April 23, 2025 4:29am Living Will Yes February 20th, 2 025 3:36pm Do you have a Healthcare Power of News Broadcaster? Yes January 20, 2025 3:36pm Name of Medical Power of News Broadcaster PABLO January 20, 2025 3:36pm Advance Directives Yes October 05, 2019 10:38am Advance Directive Response Recorded Date/ Time Do you have a Healthcare Power of News Broadcaster? Yes April 04, 2025 1:57pm Do you have a Healthcare Power of News Broadcaster? Yes April 07, 2025 10:33am Do you have a Healthcare Power of News Broadcaster? No April 11, 2025 4:09am Do you have a Healthcare Power of News Broadcaster? Yes April 23, 2025 4:29am Advance Directives [...] Active Member Role Status Dates Belem Hagen TRANSIT VEHICLE INSPECTOR, TRANSIT VEHICLE INSPECTOR-C Family Provider Active Rayshawn Chaudhary NP-C Primary Care Provider Active Team Status: Inactive Member Role Status Dates Rayshawn Chaudhary NP-C Primary Care Provider, Referring Provider Active Rayna Bazzi TRANSIT VEHICLE INSPECTOR, TRANSIT VEHICLE INSPECTOR-C Attending Provider Active Team Status: Inactive Member Role Status Dates Rayshawn Chaudhary NP-Melissa Primary Care Provider Active Dr. Tristan Landis MD Emergency Provider Active Team Status: Inactive Member Role Status Dates Rayshawn Chaudhary , TRANSIT VEHICLE INSPECTOR-C Primary Care Provider Active Dr. Tod Warner DO Emergency Provider Active Team Status: Inactive Member Role Status Dates Rayshawn Chaudhary , TRANSIT VEHICLE INSPECTOR-C Primary Care Provider Active Dr. Luis Carlos Zuluaga MD Attending Provider Active Team Status: Inactive Member Role Status Dates Rayshawn Chaudhary , TRANSIT VEHICLE INSPECTOR-C Primary Care Provider Active Dr. Tristan Landis MD Attending Provider, Emergency Provider Active Team Status: Inactive Member Role Status Dates Rayshawn Chaudhary , TRANSIT VEHICLE INSPECTOR-C Primary Care Provider Active Dr. Tod Warner DO Attending Provider, Emergency Provider Active Team Status: Inactive Member Role Status Dates Rayshawn Chaudhary , TRANSIT VEHICLE INSPECTOR-C Primary Care Provi stephani, Attending Provider, Referring Provider Active Team Status: Active Member Role Status Dates Rayshawn Chaudhary , TRANSIT VEHICLE INSPECTOR-C Primary Care Provider Active Dr. Omayra Parham DO Attending Provider, Referring Provider Active Team Status: Inactive Member Role Status Dates Rayshawn Chaudhary , TRANSIT VEHICLE INSPECTOR-C Primary Care Provider Active Dr. oDmenic Merrill DO Emergency Provider Active Team Status: Inactive Member Role Status Dates Rayshawn Chaudhary , TRANSIT VEHICLE INSPECTOR-C Primary Care Provider Active Dr. Omayra Parham DO Attending Provider, Referring Provider Active Team Status: Inactive Member Role Status Dates Rayshawn Chaudhary , TRANSIT VEHICLE INSPECTOR-C Primary Care Provider Active Dr. Dionna Carcamo DO Attending Provider, Referring P rovider Active Team Status: Inactive Member Role Status Dates Rayshawn Chaudhary , TRANSIT VEHICLE INSPECTOR-C Primary Care Provider Active Dr. Domenic Merrill DO Attending Provider, Emergency P rovider Active Team Status: Active Member Role Status Dates Rayshawn Chaudhary , TRANSIT VEHICLE INSPECTOR-C Primary Care Provider Active Team Status: Inactive Member Role Status Dates Rayshawn Chaudhary , TRANSIT VEHICLE INSPECTOR-C Primary Care Provider Active Start: January 03, 2025 End: January 03, 2025 Rayshawn Chaudhary , TRANSIT VEHICLE INSPECTOR-C Referring Provider Active Start: January 03, 2025 End: January 03, 2025 Rayna Bazzi TRANSIT VEHICLE INSPECTOR, TRANSIT VEHICLE INSPECTOR-C Attending Provider Active Start: January 03, 2025 End: January 03, 2025 Team Status: Inactive Member Role Status Dates Rayshawn Chaudhary , TRANSIT VEHICLE INSPECTOR-C Primary Care Provider Active Start: January 10, 2025 End: January 10, 2025 Rayna Bazzi TRANSIT VEHICLE INSPECTOR, TRANSIT VEHICLE INSPECTOR-C Attending Provider Active Start: January 10, 2025 End: January 10, 2025 Rayna Polk TRANSIT VEHICLE INSPECTOR, TRANSIT VEHICLE INSPECTOR-C Referring Provider Active Start: January 10, 2025 End: January 10, 2025 Team Status: Inactive Member Role Status Dates Rayshawn Chaudhary TRANSIT VEHICLE INSPECTOR-C Primary Care Provider Active Start: January 12, 2025 End: January 12, 2025 Rayna Bazzi TRANSIT VEHICLE INSPECTOR, TRANSIT VEHICLE INSPECTOR-C Attending Provider Active Start: January 12, 2025 End: January 12, 2025 Rayna Bazzi TRANSIT VEHICLE INSPECTOR, TRANSIT VEHICLE INSPECTOR-C Referring Provider Active Start: January 12, 2025 End: January 12, 2025 Team Status: Inactive Member Role Status Dates Rayshawn Chaudhary TRANSIT VEHICLE INSPECTOR-C Primary Care Provider Active Start: January 18, 2025 End: January 18, 2025 Rayshawn Chaudhary TRANSIT VEHICLE INSPECTOR-C Referring Provider Active Start: January 18, 2025 End: January 18, 2025 Dr. Branden Lance MD Attending Provider Active Start: January 18, 2025 End: January 18, 2025 Team Status: Inactive Member Role Status Dates Rayshawn Chaudhary NP-C Primary Care Provider Active Start: January 28, 2025 End: January 28, 2025 Dr. Branden Lance MD Attending Provider Active Start: January 28, 2025 End: January 28, 2025 Dr. Branden Lance MD Referring Provider Active Start: January 28, 2025 End: January 28, 2025 Team Status: Active Member Role Status Dates Rayshawn Chaudhary NP-C Primary Care Provider Active Start: January 28, [...] Active Member Role Status Dates Rayshawn Chaudhary TRANSIT VEHICLE INSPECTOR-C Primary Care Provider Active Start: February 18, 2025 End: February 18, 2025 Dr. Luis Carlos Zuluaga MD Attending Provider Active S tart: February 18, 2025 End: February 18, 2025 Dr. Branden Lance MD Referring Provider Active Start: February 18, 2025 End: February 18, 2025 Team Status: Inactive Member Role Status Dates Rayshawn Chaudhary TRANSIT VEHICLE INSPECTOR-C Primary Care Provider Active Start: February 22, 2025 End: February 22, 2025 Dr. Branden Lance MD Attending Provider Active Start: February 22, 2025 End: February 22, 2025 Dr. Branden Lance MD Referring Provider Active Start: February 22, 2025 End: February 22, 2025 Team Status: Active Member Role Status Dates Rayshawn Chaudhary TRANSIT VEHICLE INSPECTOR-C Primary Care Provider Active Start: February 22, 2025 Dr. Branden Lance MD Attending Provider Active Start: February 22, 2025 Dr. Branden Lance MD Referring Provider Active Start: February 22, 2025 Dr. Branden Lance MD Other Provider Active Start: February 22, 2025 Team Status: Inactive Member Role Status Dates Rayshawn Chaudhary TRANSIT VEHICLE INSPECTOR-C Primary Care Provider Active Start: March 09, 2025 End: March 09, 2025 Rayshawn Chaudhary TRANSIT VEHICLE INSPECTOR-C Referring Provider Active Start: March 09, 2025 End: March 09, 2025 Dr. Branden Lance MD Attending Provider Active Start: March 09, 2025 End: March 09, 2025 Team Status: Active Member Role Status Dates Rayshawn Chaudhary TRANSIT VEHICLE INSPECTOR-C Primary Care Provider Active Start: March 15, 2025 Demetra Lorenzo Attending Provider Active Start: March 15, 2025 Team Status: Inactive Member Role Status Dates Rayshawn Chaudhary TRANSIT VEHICLE INSPECTOR-C Primary Care Provider Active Start: March 16, 2025 End: March 16, 2025 Dr. Ximena Stanley MD Attending Provider Active Start: March 16, 2025 End: March 16, 2025 Dr. Branden Lance MD Referring Provider Active Start: March 16, 2025 End: March 16, 2025 Team Status: Inactive Member Role Status Dates Rayshawn Chaudhary TRANSIT VEHICLE INSPECTOR-C Primary Care Provider Active Start: March 25, 2025 End: March 25, 2025 Rayshawn Maurice , TRANSIT VEHICLE INSPECTOR-C Referring Provider Active Start: March 25, 2025 End: March 25, 2025 Dr. Mehul Borja DO Attending Provider Active Start: March 25, 2025 End: March 25, 2025 Team Status: Active Member Role Status Dates Rayshawn Chaudhary , TRANSIT VEHICLE INSPECTOR-C Primary Care Provider Active Start: March 30, 2025 Dr. Ximena Stanley MD Attending Provider Active Start: March 30, 2025 Dr. Ximena Stanley MD Referring Provider Active Start: March 30, 2025 Team Status: Active Member Role Status Dates Rayshawn Chaudhary , TRANSIT VEHICLE INSPECTOR-C Primary Care Provider Active Start: March 30, 2025 Dr. Mehul Borja DO Attending Provider Active Start: March 30, 2025 Team Status: Inactive Member Role Status Dates Rayshawn Chaudhary , TRANSIT VEHICLE INSPECTOR-C Primary Care Provider Active Start: April 04, 2025 End: April 04, 2025 Rayshawn Chaudhary , TRANSIT VEHICLE INSPECTOR-C Referring Provider Active Start: April 04, 2025 End: April 04, 2025 Rayna Bazzi NP, TRANSIT VEHICLE INSPECTOR-C Attending Provider Active Start: April 04, 2025 End: April 04, 2025 Team Status: Inactive Member Role Status Dates Rayshawn Chaudhary , TRANSIT VEHICLE INSPECTOR-C Primary Care Provider Active Start: April 04, 2025 End: April 04, 2025 Dr. Margoth Villalpando DO Emergency Provider Active Start: April 04, 2025 End: April 04, 2025 Team Status: Active Member Role Status Dates Rayshawn Chaudhary , TRANSIT VEHICLE INSPECTOR-C Primary Care Provider Active Start: April 05, 2025 Dr. Mehul Borja DO Attending Provider Active Start: April 05, 2025 Team Status: Inactive Member Role Status Dates Rayshawn Chaudhary , TRANSIT VEHICLE INSPECTOR-C Primary Care Provider Active Start: April 07, 2025 End: April 07, 2025 Dr. Wesly Leiva DO Emergency Provider Active Start : April 07, 2025 End: April 07, 2025 Team Status: Inactive Member Role Status Dates Rayshawn Chaudhary , TRANSIT VEHICLE INSPECTOR-C Primary Care Provider Active Start: April 04, 2025 End: April 04, 2025 Dr. Margoth Villalpando DO Attending Provider Active Start: April 04, 2025 End: April 04, 2025 Dr. Margoth Villalpando DO Emergency Provider Active Start: April 04, 2025 End: April 04, 2025 Team Status: Active Member Role Status Dates Rayshawn Chaudhary , TRANSIT VEHICLE INSPECTOR-C Primary Care Provider Active Start: April 07, 2025 Dr. Mehul Borja DO Attending Provider Active Start: April 07, 2025 Team Status: Active Member Role Status Dates Rayshawn Chaudhary , TRANSIT VEHICLE INSPECTOR-C Primary Care Provider Active Start: April 08, 2025 Dr. Ximena Stanley MD Attending Provider Active Start: April 08, 2025 Dr. Ximena Stanley MD Referring Provider Active Start: April 08, 2025 Team Status: Active Member Role Status Dates Rayshawn Chaudhary , TRANSIT VEHICLE INSPECTOR-C Primary Care Provider Active Start: April 08, 2025 Dr. Mehul Borja DO Attending Provider Active Start: April 08, 2025 Team Status: Inactive Member Role Status Dates Rayshawn Chaudhary TRANSIT VEHICLE INSPECTOR-C Primary Care Provider Active Start: April 11, 2025 End: April 11, 2025 Dr. Manoj Mehta MD Emergency Provider Active S tart: April 11, 2025 End: April 11, 2025 Team Status: Inactive Member Role Status Dates Rayshawn Chaudhary TRANSIT VEHICLE INSPECTOR-C Primary Care Provider Active Start: April 07, 2025 End: April 07, 2025 Dr. Wesly Leiva DO Attending Provider Active Start : April 07, 2025 End: April 07, 2025 Dr. Wesly Leiva DO Emergency Provider Active Start : April 07, 2025 End: April 07, 2025 Team Status: Inactive Member Role Status Dates Rayshawn Chaudhary , TRANSIT VEHICLE INSPECTOR-C Primary Care Provider Active Start: April 11, 2025 End: April 11, 2025 Dr. Manoj Mehta MD Attending Provider Active S tart: April 11, 2025 End: April 11, 2025 Dr. Manoj Mehta MD Emergency Provider Active S tart: April 11, 2025 End: April 11, 2025 Team Status: Active Member Role Status Dates Rayshawn Chaudhary TRANSIT VEHICLE INSPECTOR-C Primary Care Provider Active Start: April 11, 2025 Dr. Mehul Borja DO Attending Provider Active Start: April 11, 2025 Team Status: Active Member Role Status Dates Rayshawn Chaudhary , TRANSIT VEHICLE INSPECTOR-C Primary Care Provider Active Start: April 20, 2025 Dr. Mehul Borja DO Attending Provider Active Start: April 20, 2025 Team Status: Inactive Member Role Status Dates Rayshawn Chaudhary , TRANSIT VEHICLE INSPECTOR-C Primary Care Provider Active Start: April 20, 2025 End: April 20, 2025 Rayshawn Chaudhary TRANSIT VEHICLE INSPECTOR-C Referring Provider Active Start: April 20, 2025 End: April 20, 2025 Dr. Mehul Borja DO Attending Provider Active Start: April 20, 2025 End: April 20, 2025 Team Status: Active Member Role Status Dates Rayshawn Chaudhary , TRANSIT VEHICLE INSPECTOR-C Primary Care Provider Active Start: April 20, 2025 Dr. Ximena Stanley MD Attending Provider Active Start: April 20, 2025 Dr. Ximena Stanley MD Referring Provider Active Start: April 20, 2025 Team Status: Inactive Member Role Status Dates Rayshawn Chaudhary , TRANSIT VEHICLE INSPECTOR-C Primary Care Provider Active Start: April 21, 2025 End: April 21, 2025 Rayshawn Chaudhary TRANSIT VEHICLE INSPECTOR-C Referring Provider Active Start: April 21, 2025 End: April 21, 2025 Frances Sevilla NP, TRANSIT VEHICLE INSPECTOR-C Attending Provider Active Start: April 21, 2025 End: April 21, 2025 Team Status: Inactive Member Role Status Dates Rayshawn Chaudhary , TRANSIT VEHICLE INSPECTOR-C Primary Care Provider Active Start: April 23, 2025 End: April 23, 2025 Dr. Shaun Noriega DO Attending Provider Activ e Start: April 23, 2025 End: April 23, 2025 Dr. Shaun Noriega DO Emergency Provider Activ e Start: April 23, 2025 End: April 23, 2025 Team Status: Inactive Member Role Status Dates Rayshawn Chaudhary , TRANSIT VEHICLE INSPECTOR-C Primary Care Provider Active Start: April 26, 2025 End: April 26, 2025 Rayshawn Chaudhary TRANSIT VEHICLE INSPECTOR-C Attending Provider Active Start: April 26, 2025 End: April 26, 2025 Rayshawn Chaudhary TRANSIT VEHICLE INSPECTOR-C Referring Provider Active Start: April 26, 2025 End: April 26, 2025 Team Status: Active Member Role Status Dates Rayshawn Chaudhary TRANSIT VEHICLE INSPECTOR-C Primary Care Provider Active Start: April 29, 2025 Rayshawn Chaudhary TRANSIT VEHICLE INSPECTOR-C Attending Provider Active Start: April 29, 2025 Rayshawn Chaudhary , TRANSIT VEHICLE INSPECTOR-C Referring Provider Active Start: April 29, 2025 Team Status: Active Member Role Status Dates Rayshawn Chaudhary , TRANSIT VEHICLE INSPECTOR-C Primary Care Provider Active Start: March 30, 2025 Dr. Mehul Borja DO Attending Provider Active Start: March 30, 2025 Dr. Mehul Borja DO Referring Provider Active Start: March 30, 2025 Team Status: Inactive Member Role Status Dates Rayshawn Chaudhary , TRANSIT VEHICLE INSPECTOR-C Primary Care Provider Active Start: April 29, 2025 End: April 29, 2025 Rayshawn Chaudhary , TRANSIT VEHICLE INSPECTOR-C Attending Provider Active Start: April 29, 2025 End: April 29, 2025 Rayshawn Chaudhary , TRANSIT VEHICLE INSPECTOR-C Referring Provider Active Start: April 29, 2025 End: April 29, 2025 Team Status: Active Member Role Status Dates Rayshawn Chaudhary , TRANSIT VEHICLE INSPECTOR-C Primary Care Provider Active Start: April 05, 2025 Dr. Mehul Borja DO Attending Provider Active Start: April 05, 2025 Dr. Mehul Borja DO Referring Provider Active Start: April 05, 2025 Team Status: Active Member Role Status Dates Rayshawn Chaudhary , TRANSIT VEHICLE INSPECTOR-C Primary Care Provider Active Start: April 07, 2025 Dr. Mehul Borja DO Attending Provider Active Start: April 07, 2025 Dr. Mehul Borja DO Referring Provider Active Start: April 07, 2025 Team Status: Active Member Role Status Dates Rayshawn Chaudhary , TRANSIT VEHICLE INSPECTOR-C Primary Care Provider Active Start: April 08, 2025 Dr. Mehul Borja DO Attending Provider Active Start: April 08, 2025 Dr. Mehul Borja DO Referring Provider Active Start: April 08, 2025 Team Status: Active Member Role Status Dates Rayshawn Chaudhary , TRANSIT VEHICLE INSPECTOR-C Primary Care Provider Active Start: April 11, 2025 Dr. Mehul Borja DO Attending Provider Active Start: April 11, 2025 Dr. Mehul Borja DO Referring Provider Active Start: April 11, 2025 Team Status: Inactive Member Role Status Dates Rayshawn Chaudhary , TRANSIT VEHICLE INSPECTOR-C Primary Care Provider Active Start: April 20, 2025 End: April 20, 2025 Dr. Mehul Borja DO Attending Provider Active Start: April 20, 2025 End: April 20, 2025 Dr. Mehul Borja DO Referring Provider Active Start: April 20, 2025 End: April 20, 2025 Team Status: Active Member Role Status Dates Rayshawn Chaudhary , TRANSIT VEHICLE INSPECTOR-C Primary Care Provider Active Start: May 23, 2025 Rayshawn Chaudhary , TRANSIT VEHICLE INSPECTOR-C Attending Provider Active Start: May 23, 2025 Rayshawn Chaudhary , TRANSIT VEHICLE INSPECTOR-C Referring Provider Active Start: May 23, 2025 Team Status: Active Member Role Status Dates Rayshawn Chaudhary , TRANSIT VEHICLE INSPECTOR-C Primary Care Provider Active Start: May 23, 2025 Dr. Luis Carlos Zuluaga MD Attending Provider Active S tart: May 23, 2025 Team Status: Inactive Member Role Status Dates Rayshawnyuni Chaudhary , TRANSIT VEHICLE INSPECTOR-C Primary Care Provider Active Start: May 26, 2025 End: May 26, 2025 Rayshawn Chaudhary , TRANSIT VEHICLE INSPECTOR-C Referring Provider Active Start: May 26, 2025 End: May 26, 2025 Dr. Mehul Borja DO Attending Provider Active Start: May 26, 2025 End: May 26, 2025 Team Status: Inactive Member Role Status Dates Rayshawnyuni Chaudhary , TRANSIT VEHICLE INSPECTOR-C Primary Care Provider Active Start: May 23, 2025 End: May 23, 2025 Rayshawn Chaudhary , TRANSIT VEHICLE INSPECTOR-C Attending Provider Active Start: May 23, 2025 End: May 23, 2025 Rayshawn Chaudhary , TRANSIT VEHICLE INSPECTOR-C Referring Provider Active Start: May 23, 2025 End: May 23, 2025 Team Status: Active Member Role/Relationship Status Dates Rayshawnyuni Chaudhary , TRANSIT VEHICLE INSPECTOR-C Primary Care Provider Active Team Status: Inactive Member Role/Relationship Status Dates Rayshawnyuni Chaudhary , TRANSIT VEHICLE INSPECTOR-C Primary Care Provider Active Start: March 09, 2025 End: March 09, 2025 Rayshawn Chaudhary , TRANSIT VEHICLE INSPECTOR-C Referring Provider Active Start: March 09, 2025 End: March 09, 2025 Dr. Branden Lance MD Attending Provider Active Start: March 09, 2025 End: March 09, 2025 Team Status: Active Member Role/Relationship Status Dates Rayshawn Chaudhary , TRANSIT VEHICLE INSPECTOR-C Primary Care Provider Active Start: March 15, 2025 Demetra Lorenzo Attending Provider Active Start: March 15, 2025 Team Status: Inactive Member Role/Relationship Status Dates Rayshawnyuni Chaudhary , TRANSIT VEHICLE INSPECTOR-C Primary Care Provider Active Start: March 16, 2025 End: March 16, 2025 Dr. Ximena Stanley MD Attending Provider Active Start: March 16, 2025 End: March 16, 2025 Dr. Branden Lance MD Referring Provider Active Start: March 16, 2025 End: March 16, 2025 Team Status: Inactive Member Role/Relationship Status Dates Rayshawn Chaudhary , TRANSIT VEHICLE INSPECTOR-C Primary Care Provider Active Start: March 25, 2025 End: March 25, 2025 Rayshawn Chaudhary TRANSIT VEHICLE INSPECTOR-C Referring Provider Active Start: March 25, 2025 End: March 25, 2025 Dr. Mehul Borja DO Attending Provider Active Start: March 25, 2025 End: March 25, 2025 Team Status: Active Member Role/Relationship Status Dates Rayshawn Chaudhary , TRANSIT VEHICLE INSPECTOR-C Primary Care Provider Active Start: March 30, 2025 Dr. Mehul Borja DO Attending Provider Active Start: March 30, 2025 Dr. Mehul Borja DO Referring Provider Active Start: March 30, 2025 Team Status: Inactive Member Role/Relationship Status Dates Rayshawn Chaudhary , TRANSIT VEHICLE INSPECTOR-C Primary Care Provider Active Start: April 04, 2025 End: April 04, 2025 Rayshawn Chaudhary , TRANSIT VEHICLE INSPECTOR-C Referring Provider Active Start: April 04, 2025 End: April 04, 2025 Rayna Bazzi NP, TRANSIT VEHICLE INSPECTOR-C Attending Provider Active Start: April 04, 2025 End: April 04, 2025 Team Status: Inactive Member Role/Relationship Status Dates Rayshawn Chaudhary , TRANSIT VEHICLE INSPECTOR-C Primary Care Provider Active Start: April 04, 2025 End: April 04, 2025 Dr. Margoth Villalpando DO Attending Provider Active Start: April 04, 2025 End: April 04, 2025 Dr. Margoth Villalpando DO Emergency Provider Active Start: April 04, 2025 End: April 04, 2025 Team Status: Active Member Role/Relationship Status Dates Rayshawn Chaudhary , TRANSIT VEHICLE INSPECTOR-C Primary Care Provider Active Start: April 05, 2025 Dr. Mehul Borja DO Attending Provider Active Start: April 05, 2025 Dr. Mehul Borja DO Referring Provider Active Start: April 05, 2025 Team Status: Inactive Member Role/Relationship Status Dates Rayshawn Chaudhary , TRANSIT VEHICLE INSPECTOR-C Primary Care Provider Active Start: April 07, 2025 End: April 07, 2025 Dr. Wesly Leiva DO Attending Provider Active Start : April 07, 2025 End: April 07, 2025 Dr. Wesly Leiva DO Emergency Provider Active Start : April 07, 2025 End: April 07, 2025 Team Status: Active Member Role/Relationship Status Dates Rayshawn Chaudhary , TRANSIT VEHICLE INSPECTOR-C Primary Care Provider Active Start: April 07, 2025 Dr. Mehul Borja DO Attending Provider Active Start: April 07, 2025 Dr. Mehul Borja DO Referring Provider Active Start: April 07, 2025 Team Status: Active Member Role/Relationship Status Dates Rayshawn Chaudhary , TRANSIT VEHICLE INSPECTOR-C Primary Care Provider Active Start: April 08, 2025 Dr. Mehul Borja DO Attending Provider Active Start: April 08, 2025 Dr. Mehul Borja DO Referring Provider Active Start: April 08, 2025 Team Status: Inactive Member Role/Relationship Status Dates Rayshawn Chaudhary , TRANSIT VEHICLE INSPECTOR-C Primary Care Provider Active Start: April 11, 2025 End: April 11, 2025 Dr. Manoj Mehta MD Attending Provider Active S tart: April 11, 2025 End: April 11, 2025 Dr. Manoj Mehta MD Emergency Provider Active S tart: April 11, 2025 End: April 11, 2025 Team Status: Active Member Role/Relationship Status Dates Rayshawn Chaudhary , TRANSIT VEHICLE INSPECTOR-C Primary Care Provider Active Start: April 11, 2025 Dr. Mehul Borja DO Attending Provider Active Start: April 11, 2025 Dr. Mehul Borja DO Referring Provider Active Start: April 11, 2025 Team Status: Active Member Role/Relationship Status Dates Rayshawn Chaudhary , TRANSIT VEHICLE INSPECTOR-C Primary Care Provider Active Start: April 20, 2025 Dr. Mehul Borja DO Attending Provider Active Start: April 20, 2025 Team Status: Inactive Member Role/Relationship Status Dates Rayshawn Chaudhary , TRANSIT VEHICLE INSPECTOR-C Primary Care Provider Active Start: April 20, 2025 End: April 20, 2025 Dr. Mehul Borja DO Attending Provider Active Start: April 20, 2025 End: April 20, 2025 Dr. Mehul Borja DO Referring Provider Active Start: April 20, 2025 End: April 20, 2025 Team Status: Active Member Role/Relationship Status Dates Rayshawn Chaudhary , TRANSIT VEHICLE INSPECTOR-C Primary Care Provider Active Start: April 20, 2025 Dr. Ximena Stanley MD Attending Provider Active Start: April 20, 2025 Dr. Ximena Stanley MD Referring Provider Active Start: April 20, 2025 Team Status: Inactive Member Role/Relationship Status Dates Rayshawn Chaudhary , TRANSIT VEHICLE INSPECTOR-C Primary Care Provider Active Start: April 21, 2025 End: April 21, 2025 Rayshawn Chaudhary TRANSIT VEHICLE INSPECTOR-C Referring Provider Active Start: April 21, 2025 End: April 21, 2025 Frances Sevilla NP, TRANSIT VEHICLE INSPECTOR-C Attending Provider Active Start: April 21, 2025 End: April 21, 2025 Team Status: Inactive Member Role/Relationship Status Dates Rayshawn Chaudhary , TRANSIT VEHICLE INSPECTOR-C Primary Care Provider Active Start: April 23, 2025 End: April 23, 2025 Dr. Shaun Noriega , DO Attending Provider Activ e Start: April 23, 2025 End: April 23, 2025 Dr. Shaun Noriega , DO Emergency Provider Activ e Start: April 23, 2025 End: April 23, 2025 Team Status: Inactive Member Role/Relationship Status Dates Rayshawn Chaudhary TRANSIT VEHICLE INSPECTOR-C Primary Care Provider Active Start: April 26, 2025 End: April 26, 2025 Rayshawn Chaudhary TRANSIT VEHICLE INSPECTOR-C Attending Provider Active Start: April 26, 2025 End: April 26, 2025 Rayshawn Chaudhary , TRANSIT VEHICLE INSPECTOR-C Referring Provider Active Start: April 26, 2025 End: April 26, 2025 Team Status: Inactive Member Role/Relationship Status Dates Rayshawn Chaudhary TRANSIT VEHICLE INSPECTOR-C Primary Care Provider Active Start: April 29, 2025 End: April 29, 2025 Rayshawn Chaudhary TRANSIT VEHICLE INSPECTOR-C Attending Provider Active Start: April 29, 2025 End: April 29, 2025 Rayshawn Chaudhary TRANSIT VEHICLE INSPECTOR-C Referring Provider Active Start: April 29, 2025 End: April 29, 2025 Team Status: Inactive Member Role/Relationship Status Dates Rayshawn Chaudhary , TRANSIT VEHICLE INSPECTOR-C Primary Care Provider Active Start: May 23, 2025 End: May 23, 2025 Rayshawn Chaudhary TRANSIT VEHICLE INSPECTOR-C Attending Provider Active Start: May 23, 2025 End: May 23, 2025 Rayshawn Chaudhary TRANSIT VEHICLE INSPECTOR-C Referring Provider Active Start: May 23, 2025 End: May 23, 2025 Team Status: Active Member Role/Relationship Status Dates Rayshawn Chaudhary , TRANSIT VEHICLE INSPECTOR-C Primary Care Provider Active Start: May 23, 2025 Dr. Luis Carlos Zuluaga MD Attending Provider Active S tart: May 23, 2025 Team Status: Inactive Member Role/Relationship Status Dates Rayshawn Chaudhary , TRANSIT VEHICLE INSPECTOR-C Primary Care Provider Active Start: May 26, 2025 End: May 26, 2025 Rayshawn Chaudhary , TRANSIT VEHICLE INSPECTOR-C Referring Provider Active Start: May 26, 2025 End: May 26, 2025 Dr. Mehul Borja DO Attending Provider Active Start: May 26, 2025 End: May 26, 2025 Team Status: Inactive Member Role/Relationship Status Dates Rayshawn Chaudhary , TRANSIT VEHICLE INSPECTOR-C Primary Care Provider Active Start: May 31, 2025 Dr. Dia Villagran MD Attending Provider Active Start: May 31, 2025 Team Status: Inactive Member Role/Relationship Status Dates Rayshawn Chaudhary , TRANSIT VEHICLE INSPECTOR-C Primary Care Provider Active Start: July 05, 2025 End: July 05, 2025 Rayshawn Chaudhary , TRANSIT VEHICLE INSPECTOR-C Referring Provider Active Start: July 05, 2025 End: July 05, 2025 Rayna Bazzi TRANSIT VEHICLE INSPECTOR, TRANSIT VEHICLE INSPECTOR-C Attending Provider Active Start: July 05, 2025 End: July 05, 2025 Team Status: Inactive Member Role/Relationship Status Dates Rayshawn Chaudhary , TRANSIT VEHICLE INSPECTOR-C Primary Care Provider Active Start: March 25, 2025 End: March 25, 2025 Rayshawn Chaudhary , TRANSIT VEHICLE INSPECTOR-C Referring Provider Active Start: March 25, 2025 End: March 25, 2025 Dr. Mehul Borja DO Attending Provider Active Start: March 25, 2025 End: March 25, 2025 Team Status: Active Member Role/Relationship Status Dates Rayshawn Chaudhary , TRANSIT VEHICLE INSPECTOR-C Primary Care Provider Active Start: March 30, 2025 Dr. Mehul Borja DO Attending Provider Active Start: March 30, 2025 Dr. Mehul Borja DO Referring Provider Active Start: March 30, 2025 Team Status: Inactive Member Role/Relationship Status Dates Rayshawn Chaudhary , TRANSIT VEHICLE INSPECTOR-C Primary Care Provider Active Start: April 04, 2025 End: April 04, 2025 Rayshawn Chaudhary , TRANSIT VEHICLE INSPECTOR-C Referring Provider Active Start: April 04, 2025 End: April 04, 2025 Rayna Bazzi NP, TRANSIT VEHICLE INSPECTOR-C Attending Provider Active Start: April 04, 2025 End: April 04, 2025 Team Status: Inactive Member Role/Relationship Status Dates Rayshawn Chaudhary , TRANSIT VEHICLE INSPECTOR-C Primary Care Provider Active Start: April 04, 2025 End: April 04, 2025 Dr. Margoth Villalpando DO Attending Provider Active Start: April 04, 2025 End: April 04, 2025 Dr. Margoth Villalpando DO Emergency Provider Active Start: April 04, 2025 End: April 04, 2025 Team Status: Active Member Role/Relationship Status Dates Rayshawn Chaudhary , TRANSIT VEHICLE INSPECTOR-C Primary Care Provider Active Start: April 05, 2025 Dr. Mehul Borja DO Attending Provider Active Start: April 05, 2025 Dr. Mehul Borja DO Referring Provider Active Start: April 05, 2025 Team Status: Inactive Member Role/Relationship Status Dates Rayshawn Chaudhary , TRANSIT VEHICLE INSPECTOR-C Primary Care Provider Active Start: April 07, 2025 End: April 07, 2025 Dr. Wesly Leiva DO Attending Provider Active Start : April 07, 2025 End: April 07, 2025 Dr. Wesly Leiva DO Emergency Provider Active Start : April 07, 2025 End: April 07, 2025 Team Status: Active Member Role/Relationship Status Dates Rayshawn Chaudhary , TRANSIT VEHICLE INSPECTOR-C Primary Care Provider Active Start: April 07, 2025 Dr. Mehul Borja DO Attending Provider Active Start: April 07, 2025 Dr. Mehul Borja DO Referring Provider Active Start: April 07, 2025 Team Status: Active Member Role/Relationship Status Dates Rayshawn Chaudhary , TRANSIT VEHICLE INSPECTOR-C Primary Care Provider Active Start: April 08, 2025 Dr. Mehul Borja DO Attending Provider Active Start: April 08, 2025 Dr. Mehul Borja DO Referring Provider Active Start: April 08, 2025 Team Status: Inactive Member Role/Relationship Status Dates Rayshawn Chaudhary , TRANSIT VEHICLE INSPECTOR-C Primary Care Provider Active Start: April 11, 2025 End: April 11, 2025 Dr. Manoj Mehta MD Attending Provider Active S tart: April 11, 2025 End: April 11, 2025 Dr. Manoj Mehta MD Emergency Provider Active S tart: April 11, 2025 End: April 11, 2025 Team Status: Active Member Role/Relationship Status Dates Rayshawn Chaudhary , TRANSIT VEHICLE INSPECTOR-C Primary Care Provider Active Start: April 11, 2025 Dr. Mehul Borja DO Attending Provider Active Start: April 11, 2025 Dr. Mehul Borja DO Referring Provider Active Start: April 11, 2025 Team Status: Active Member Role/Relationship Status Dates Rayshawn Chaudhary , TRANSIT VEHICLE INSPECTOR-C Primary Care Provider Active Start: April 20, 2025 Dr. Mehul Borja , Attending Provider Active Start: April 20, 2025 Team Status: Inactive Member Role/Relationship Status Dates Rayshawn Chaudhary , TRANSIT VEHICLE INSPECTOR-C Primary Care Provider Active Start: April 20, 2025 End: April 20, 2025 Dr. Mehul Borja , Attending Provider Active Start: April 20, 2025 End: April 20, 2025 Dr. Mehul Borja , Referring Provider Active Start: April 20, 2025 End: April 20, 2025 Team Status: Inactive Member Role/Relationship Status Dates Rayshawn Chaudhary TRANSIT VEHICLE INSPECTOR-C Primary Care Provider Active Start: April 21, 2025 End: April 21, 2025 Rayshawn Chaudhary TRANSIT VEHICLE INSPECTOR-C Referring Provider Active Start: April 21, 2025 End: April 21, 2025 Frances Sevilla NP, TRANSIT VEHICLE INSPECTOR-C Attending Provider Active Start: April 21, 2025 End: April 21, 2025 Team Status: Inactive Member Role/Relationship Status Dates Rayshawn Chaudhary , TRANSIT VEHICLE INSPECTOR-C Primary Care Provider Active Start: April 23, 2025 End: April 23, 2025 Dr. Shaun Noriega , DO Attending Provider Activ e Start: April 23, 2025 End: April 23, 2025 Dr. Shaun Noriega , DO Emergency Provider Activ e Start: April 23, 2025 End: April 23, 2025 Team Status: Inactive Member Role/Relationship Status Dates Rayshawn Chaudhary TRANSIT VEHICLE INSPECTOR-C Primary Care Provider Active Start: April 26, 2025 End: April 26, 2025 Rayshawn Chaudhary TRANSIT VEHICLE INSPECTOR-C Attending Provider Active Start: April 26, 2025 End: April 26, 2025 Rayshawn Chaudhary , TRANSIT VEHICLE INSPECTOR-C Referring Provider Active Start: April 26, 2025 End: April 26, 2025 Team Status: Inactive Member Role/Relationship Status Dates Rayshawn Chaudhary , TRANSIT VEHICLE INSPECTOR-C Primary Care Provider Active Start: April 29, 2025 End: April 29, 2025 Rayshawn Chaudhary , TRANSIT VEHICLE INSPECTOR-C Attending Provider Active Start: April 29, 2025 End: April 29, 2025 Rayshawn Chaudhary , TRANSIT VEHICLE INSPECTOR-C Referring Provider Active Start: April 29, 2025 End: April 29, 2025 Team Status: Inactive Member Role/Relationship Status Dates Rayshawn Chaudhary , TRANSIT VEHICLE INSPECTOR-C Primary Care Provider Active Start: May 23, 2025 End: May 23, 2025 Rayshawn Chaudhary , TRANSIT VEHICLE INSPECTOR-C Attending Provider Active Start: May 23, 2025 End: May 23, 2025 Rayshawn Chaudhary , TRANSIT VEHICLE INSPECTOR-C Referring Provider Active Start: May 23, 2025 End: May 23, 2025 Team Status: Active Member Role/Relationship Status Dates Rayshawn Chaudhary , TRANSIT VEHICLE INSPECTOR-C Primary Care Provider Active Start: May 23, 2025 Dr. Luis Carlos Zuluaga MD Attending Provider Active S tart: May 23, 2025 Team Status: Inactive Member Role/Relationship Status Dates Rayshawnyuni Chaudhary , TRANSIT VEHICLE INSPECTOR-C Primary Care Provider Active Start: May 26, 2025 End: May 26, 2025 Rayshawn Chaudhary , TRANSIT VEHICLE INSPECTOR-C Referring Provider Active Start: May 26, 2025 End: May 26, 2025 Dr. Mehul Borja DO Attending Provider Active Start: May 26, 2025 End: May 26, 2025 Team Status: Inactive Member Role/Relationship Status Dates Rayshawn Chaudhary , TRANSIT VEHICLE INSPECTOR-C Primary Care Provider Active Start: May 31, 2025 Dr. Dia Villagran MD Attending Provider Active Start: May 31, 2025 Team Status: Inactive Member Role/Relationship Status Dates Rayshawn Maurice , TRANSIT VEHICLE INSPECTOR-C Primary Care Provider Active Start: July 05, 2025 End: July 05, 2025 Rayshawn Chaudhary , TRANSIT VEHICLE INSPECTOR-C Referring Provider Active Start: July 05, 2025 End: July 05, 2025 Rayna Bazzi TRANSIT VEHICLE INSPECTOR, TRANSIT VEHICLE INSPECTOR-C Attending Provider Active Start: July 05, 2025 End: July 05, 2025 Team Status: Inactive Member Role/Relationship Status Dates Rayshawnyuni Chaudhary , TRANSIT VEHICLE INSPECTOR-C Primary Care Provider Active Start: July 21, 2025 End: July 21, 2025 Rayshawn Chaudhary , TRANSIT VEHICLE INSPECTOR-C Referring Provider Active Start: July 21, 2025 End: July 21, 2025 Frances Sevilla TRANSIT VEHICLE INSPECTOR, TRANSIT VEHICLE INSPECTOR-C Attending Provider Active Start: July 21, 2025 End: July 21, 2025 Team Status: Active Member Role/Relationship Status Dates Rayshawn Chaudhary , TRANSIT VEHICLE INSPECTOR-C Primary Care Provider Active Start: July 21, 2025 Dr. Ximena Stanley MD Attending Provider Active Start: July 21, 2025 Dr. Ximena Stanley MD Referring Provider Active Start: July 21, 2025 Team Status: Active Member Role/Relationship Status Dates Rayshawn Chaudhary , TRANSIT VEHICLE INSPECTOR-C Primary Care Provider Active Start: March 30, 2025 Dr. Mehul Borja DO Attending Provider Active Start: March 30, 2025 Dr. Mehul Borja DO Referring Provider Active Start: March 30, 2025 Team Status: Inactive Member Role/Relationship Status Dates Rayshawn Chaudhary , TRANSIT VEHICLE INSPECTOR-C Primary Care Provider Active Start: April 04, 2025 End: April 04, 2025 Rayshawn Chaudhary , TRANSIT VEHICLE INSPECTOR-C Referring Provider Active Start: April 04, 2025 End: April 04, 2025 Rayna Bazzi NP, TRANSIT VEHICLE INSPECTOR-C Attending Provider Active Start: April 04, 2025 End: April 04, 2025 Team Status: Inactive Member Role/Relationship Status Dates Rayshawn Chaudhary , TRANSIT VEHICLE INSPECTOR-C Primary Care Provider Active Start: April 04, 2025 End: April 04, 2025 Dr. Margoth Villalpando DO Attending Provider Active Start: April 04, 2025 End: April 04, 2025 Dr. Margoth Villalpando DO Emergency Provider Active Start: April 04, 2025 End: April 04, 2025 Team Status: Active Member Role/Relationship Status Dates Rayshawn Chaudhary , TRANSIT VEHICLE INSPECTOR-C Primary Care Provider Active Start: April 05, 2025 Dr. Mehul Borja DO Attending Provider Active Start: April 05, 2025 Dr. Mehul Borja DO Referring Provider Active Start: April 05, 2025 Team Status: Inactive Member Role/Relationship Status Dates Rayshawn Chaudhary , TRANSIT VEHICLE INSPECTOR-C Primary Care Provider Active Start: April 07, 2025 End: April 07, 2025 Dr. Wesly Leiva DO Attending Provider Active Start : April 07, 2025 End: April 07, 2025 Dr. Wesly Leiva DO Emergency Provider Active Start : April 07, 2025 End: April 07, 2025 Team Status: Active Member Role/Relationship Status Dates Rayshawn Chaudhary , TRANSIT VEHICLE INSPECTOR-C Primary Care Provider Active Start: April 07, 2025 Dr. Mehul Borja DO Attending Provider Active Start: April 07, 2025 Dr. Mehul Borja DO Referring Provider Active Start: April 07, 2025 Team Status: Active Member Role/Relationship Status Dates Rayshawn Chaudhary , TRANSIT VEHICLE INSPECTOR-C Primary Care Provider Active Start: April 08, 2025 Dr. Mehul Borja DO Attending Provider Active Start: April 08, 2025 Dr. Mehul Borja DO Referring Provider Active Start: April 08, 2025 Team Status: Inactive Member Role/Relationship Status Dates Rayshawn Chaudhary , TRANSIT VEHICLE INSPECTOR-C Primary Care Provider Active Start: April 11, 2025 End: April 11, 2025 Dr. Manoj Mehta MD Attending Provider Active S tart: April 11, 2025 End: April 11, 2025 Dr. Manoj Mehta MD Emergency Provider Active S tart: April 11, 2025 End: April 11, 2025 Team Status: Active Member Role/Relationship Status Dates Rayshawn Chaudhary , TRANSIT VEHICLE INSPECTOR-C Primary Care Provider Active Start: April 11, 2025 Dr. Mehul Borja DO Attending Provider Active Start: April 11, 2025 Dr. Mehul Borja DO Referring Provider Active Start: April 11, 2025 Team Status: Active Member Role/Relationship Status Dates Rayshawn Chaudhary , TRANSIT VEHICLE INSPECTOR-C Primary Care Provider Active Start: April 20, 2025 Dr. Mehul Borja DO Attending Provider Active Start: April 20, 2025 Team Status: Inactive Member Role/Relationship Status Dates Rayshawn Chaudhary , TRANSIT VEHICLE INSPECTOR-C Primary Care Provider Active Start: April 20, 2025 End: April 20, 2025 Dr. Mehul Borja DO Attending Provider Active Start: April 20, 2025 End: April 20, 2025 Dr. Mehul Borja DO Referring Provider Active Start: April 20, 2025 End: April 20, 2025 Team Status: Inactive Member Role/Relationship Status Dates Rayshawn Chaudhary , TRANSIT VEHICLE INSPECTOR-C Primary Care Provider Active Start: April 21, 2025 End: April 21, 2025 Rayshawn Chaudhary , TRANSIT VEHICLE INSPECTOR-C Referring Provider Active Start: April 21, 2025 End: April 21, 2025 Frances Sevilla NP, TRANSIT VEHICLE INSPECTOR-C Attending Provider Active Start: April 21, 2025 End: April 21, 2025 Team Status: Inactive Member Role/Relationship Status Dates Rayshawn Chaudhary , TRANSIT VEHICLE INSPECTOR-C Primary Care Provider Active Start: April 23, 2025 End: April 23, 2025 Dr. Shaun Noriega DO Attending Provider Activ e Start: April 23, 2025 End: April 23, 2025 Dr. Shaun Noriega DO Emergency Provider Activ e Start: April 23, 2025 End: April 23, 2025 Team Status: Inactive Member Role/Relationship Status Dates Rayshawn Chaudhary , TRANSIT VEHICLE INSPECTOR-C Primary Care Provider Active Start: April 26, 2025 End: April 26, 2025 Rayshawn Chaudhary , TRANSIT VEHICLE INSPECTOR-C Attending Provider Active Start: April 26, 2025 End: April 26, 2025 Rayshawn Chaudhary , TRANSIT VEHICLE INSPECTOR-C Referring Provider Active Start: April 26, 2025 End: April 26, 2025 Team Status: Inactive Member Role/Relationship Status Dates Rayshawnyuni Chaudhary , TRANSIT VEHICLE INSPECTOR-C Primary Care Provider Active Start: April 29, 2025 End: April 29, 2025 Rayshawn Chaudhary , TRANSIT VEHICLE INSPECTOR-C Attending Provider Active Start: April 29, 2025 End: April 29, 2025 Rayshawn Chaudhary , TRANSIT VEHICLE INSPECTOR-C Referring Provider Active Start: April 29, 2025 End: April 29, 2025 Team Status: Inactive Member Role/Relationship Status Dates Rayshawnyuni Chaudhary , TRANSIT VEHICLE INSPECTOR-C Primary Care Provider Active Start: May 23, 2025 End: May 23, 2025 Rayshawn Chaudhary , TRANSIT VEHICLE INSPECTOR-C Attending Provider Active Start: May 23, 2025 End: May 23, 2025 Rayshawn Chaudhary , TRANSIT VEHICLE INSPECTOR-C Referring Provider Active Start: May 23, 2025 End: May 23, 2025 Team Status: Active Member Role/Relationship Status Dates Rayshawn Chaudhary , TRANSIT VEHICLE INSPECTOR-C Primary Care Provider Active Start: May 23, 2025 Dr. Luis Carlos Zuluaga MD Attending Provider Active S tart: May 23, 2025 Team Status: Inactive Member Role/Relationship Status Dates Rayshawn Chaudhary , TRANSIT VEHICLE INSPECTOR-C Primary Care Provider Active Start: May 26, 2025 End: May 26, 2025 Rayshawn Chaudhary , TRANSIT VEHICLE INSPECTOR-C Referring Provider Active Start: May 26, 2025 End: May 26, 2025 Dr. Mehul Borja DO Attending Provider Active Start: May 26, 2025 End: May 26, 2025 Team Status: Inactive Member Role/Relationship Status Dates Rayshawn Chaudhary , TRANSIT VEHICLE INSPECTOR-C Primary Care Provider Active Start: May 31, 2025 Dr. Dia Villagran MD Attending Provider Active Start: May 31, 2025 Team Status: Inactive Member Role/Relationship Status Dates Rayshawn Chaudhary , TRANSIT VEHICLE INSPECTOR-C Primary Care Provider Active Start: July 05, 2025 End: July 05, 2025 Rayshawn Chaudhary , TRANSIT VEHICLE INSPECTOR-C Referring Provider Active Start: July 05, 2025 End: July 05, 2025 Rayna Bazzi TRANSIT VEHICLE INSPECTOR, TRANSIT VEHICLE INSPECTOR-C Attending Provider Active Start: July 05, 2025 End: July 05, 2025 Team Status: Inactive Member Role/Relationship Status Dates Rayshawn Chaudhary , TRANSIT VEHICLE INSPECTOR-C Primary Care Provider Active Start: July 21, 2025 End: July 21, 2025 Rayshawn Chaudhary , TRANSIT VEHICLE INSPECTOR-C Referring Provider Active Start: July 21, 2025 End: July 21, 2025 Franecs Sevilla TRANSIT VEHICLE INSPECTOR, TRANSIT VEHICLE INSPECTOR-C Attending Provider Active Start: July 21, 2025 End: July 21, 2025 Team Status: Active Member Role/Relationship Status Dates Rayshawn Chaudhary , TRANSIT VEHICLE INSPECTOR-C Primary Care Provider Active Start: July 21, 2025 Dr. Ximena Stanley MD Attending Provider Active Start: July 21, 2025 Dr. Ximena Stanley MD Referring Provider Active Start: July 21, 2025 Team Status: Inactive Member Role/Relationship Status Dates Rayshawn Chaudhary , TRANSIT VEHICLE INSPECTOR-C Primary Care Provider Active Start: July 26, 2025 End: July 26, 2025 Rayshawn Chaudhary , TRANSIT VEHICLE INSPECTOR-C Referring Provider Active Start: July 26, 2025 End: July 26, 2025 Dr. Dia Villagran MD Attending Provider Active Start: July 26, 2025 End: July 26, 2025 Team Status: Active Member Role/Relationship Status Dates Rayshawn Chaudhary , TRANSIT VEHICLE INSPECTOR-C Primary care physician Active Team Status: Inactive Member Role/Relationship Status Dates Rayshawn Chaudhary , TRANSIT VEHICLE INSPECTOR-C Primary care physician Active Start: May 23, 2025 End: May 23, 2025 Rayshawn Chaudhary TRANSIT VEHICLE INSPECTOR-C Attending physician Active Start: May 23, 2025 End: May 23, 2025 Rayshawn Chaudhary , TRANSIT VEHICLE INSPECTOR-C Referring Provider Active Start: May 23, 2025 End: May 23, 2025 Team Status: Active Member Role/Relationship Status Dates Rayshawn Chaudhary , TRANSIT VEHICLE INSPECTOR-C Primary care physician Active Start: May 23, 2025 Dr. Luis aCrlos Zuluaga MD Attending physician Active Start: May 23, 2025 Team Status: Inactive Member Role/Relationship Status Dates Rayshawn Chaudhary , TRANSIT VEHICLE INSPECTOR-C Primary care physician Active Start: May 26, 2025 End: May 26, 2025 Rayshawn Chaudhary , TRANSIT VEHICLE INSPECTOR-C Referring Provider Active Start: May 26, 2025 End: May 26, 2025 Dr. Mehul Borja DO Attending physician Active Start: May 26, 2025 End: May 26, 2025 Team Status: Inactive Member Role/Relationship Status Dates Rayshawn Chaudhary , TRANSIT VEHICLE INSPECTOR-C Primary care physician Active Start: May 31, 2025 Dr. Dia Villagran MD Attending physician Active Start: May 31, 2025 Team Status: Inactive Member Role/Relationship Status Dates Rayshawn Chaudhary , TRANSIT VEHICLE INSPECTOR-C Primary care physician Active Start: July 05, 2025 End: July 05, 2025 Rayshawn Chaudhary , TRANSIT VEHICLE INSPECTOR-C Referring Provider Active Start: July 05, 2025 End: July 05, 2025 Rayna Bazzi NP, TRANSIT VEHICLE INSPECTOR-C Attending physician Active Start: July 05, 2025 End: July 05, 2025 Team Status: Inactive Member Role/Relationship Status Dates Rayshawn Chaudhary , TRANSIT VEHICLE INSPECTOR-C Primary care physician Active Start: July 21, 2025 End: July 21, 2025 Rayshawn Chaudhary , TRANSIT VEHICLE INSPECTOR-C Referring Provider Active Start: July 21, 2025 End: July 21, 2025 Frances Sevilla TRANSIT VEHICLE INSPECTOR, TRANSIT VEHICLE INSPECTOR-C Attending physician Active Start: July 21, 2025 End: July 21, 2025 Team Status: Active Member Role/Relationship Status Dates Rayshawn Chaudhary , TRANSIT VEHICLE INSPECTOR-C Primary care physician Active Start: July 21, 2025 Dr. Ximean Stanley MD Attending physician Active Start: July 21, 2025 Dr. Ximena Stanley MD Referring Provider Active Start: July 21, 2025 Team Status: Inactive Member Role/Relationship Status Dates Rasyhawn Chaudhary , TRANSIT VEHICLE INSPECTOR-C Primary care physician Active Start: July 26, 2025 End: July 26, 2025 Rayshawn Chaudhary , TRANSIT VEHICLE INSPECTOR-C Referring Provider Active Start: July 26, 2025 [...] section and content) DATE CREATED AUTHOR 03/15/2023 [facility] DATE CREATED AUTHOR AUTHOR'S ORGANIZ ATION 03/17/2023 [facility] DATE CREATED AUTHOR AUTHOR'S ORGANIZ ATION 03/17/2025 [facility] DATE CREATED AUTHOR AUTHOR'S ORGANIZ ATION 10/05/2025 [facility] DATE CREATED AUTHOR AUTHOR'S ORGANIZ ATION 10/11/2025 [facility] FOR RECORDS PERTAINING TO PATIENTS WHO ARE [...] BE BASED ON THE PRIMARY CLINICAL RECORDS. [facility]. provides no warranty or guarantee of the accuracy or completeness of information in this document.
[2025-10-23 14:02] LABS: AST(SGOT) 21 U/L (<=31); Alanine Aminotransfer ALT/SGPT 14 U/L (<=34); Albumin, Serum 4.0 g/dL (3.4-4.8); Alkaline Phosphatase 43 U/L (35-104); Anion Gap 13 (5-15); BUN 20 mg/dL (4-19); BUN/Creat Ratio 18.2 RATIO (10-20); Calcium,Total 9.5 mg/dL (7.6-11.0); Carbon Dioxide 24.1 mmol/L (21.0-32.0); Chloride 103 mmol/L (98-108); Estimated Creatinine Clearance 39.55 ml/min (50-250); Globulin 3.1 g/dL (2.2-4.2); Glucose 152 mg/dL (70-99); Lipase 104 U/L (13-75); Potassium 3.7 mmol/L (3.3-5.1)
--- NOTE | 2025-10-23 14:13 | CM.ED ---
Social Work Date of referral: 10/23/25 Reason for referral: No Advanced Care Directives (ACD's) on file. Referred by: Social Work Identification Patient provided consent to social work visit. [place] Worker requested a copy of ADV's which patient agreed to bring in. Monet Canales, LOTTERY SALES CLERK, BORE MINER OPERATOR
[2025-10-23 14:55] VITALS: BP 144/60; PULSE 97; RESP 16; O2SAT 97
[2025-10-23] MEDS: Lidocaine 2% Viscous15 ML UDC 15 ML PO (15:32)
[2025-10-23 16:11] VITALS: BP 156/78; PULSE 84; RESP 16; TEMP 36.7; O2SAT 100
== END 2025-10-23 16:13 | disposition home or self-care (01) ==
PROVIDERS: Emergency Provider Emergency Medicine; PCP Nurse Practitioner Family; Visit Provider Emergency Medicine
DX: R10.13 Epigastric pain (principal); R74.8 Abnormal levels of other serum enzymes; K21.9 Gastro-esophageal reflux disease without esophagitis; E78.5 Hyperlipidemia, unspecified; M85.80 Other specified disorders of bone density and structure, unspecified site; Z79.899 Other long term (current) drug therapy
CPT/HCPCS: 74177; 80053; 83690; 85025; 96374; 96375; 99285; Q9967; A4216; J2405

== ENCOUNTER → 2025-11-03 | Outpatient (CLI) | payer MEDICARE, SELFPAY ==
[2025-11-03 17:04] LABS: Hematocrit 41.3 % (37-47); Hemoglobin 12.7 g/dL (12.0-15.0); Immature Granulocytes Count 0.010 X10^3/uL (0.0-0.0); Mean Corp Hgb Conc 30.8 g/dL (32-36); Mean Corpuscular Volume 89.4 fL (81-99); Mean Platelet Vol. 9.8 fl (6.2-12.0); NRBC Flagged by Analyzer 0 % (0-5); Platelet Count 417 K/mm3 (150-450); RBC Distribution Width CV 15.5 % (11.6-14.6); RBC Distribution Width SD 50.3 fl (35.1-43.9); Red Blood Count 4.62 M/mm3 (4.2-5.4); White Blood Count 9.2 K/mm3 (4.4-11.0)
[2025-11-03 17:27] LABS: AST(SGOT) 19 U/L (<=31); Alanine Aminotransfer ALT/SGPT 9 U/L (<=34); Albumin, Serum 4.2 g/dL (3.4-4.8); Alkaline Phosphatase 37 U/L (35-104); Amylase 51 U/L (28-100); Anion Gap 12 (5-15); BUN 19 mg/dL (4-19); BUN/Creat Ratio 15.0 RATIO (10-20); Calcium,Total 9.8 mg/dL (7.6-11.0); Carbon Dioxide 24.8 mmol/L (21.0-32.0); Chloride 102 mmol/L (98-108); Globulin 3.1 g/dL (2.2-4.2); Glucose 108 mg/dL (70-99); Lipase 74 U/L (13-75); Potassium 4.2 mmol/L (3.3-5.1)
== END | disposition home or self-care (01) ==
LOC: VSLAB 14:06
PROVIDERS: PCP Nurse Practitioner Family
DX: R10.9 Unspecified abdominal pain (principal)
CPT/HCPCS: 36415; 80053; 82150; 83690; 85025

== ENCOUNTER → 2025-11-10 | Outpatient (CLI) | payer MEDICARE, SELFPAY ==
--- NOTE | 2025-11-10 09:19 | US_ITS ---
PROCEDURE: ABDOMEN LIMITED 11/10/2025 REASON FOR EXAM: RUQ PAIN TECHNIQUE: Procedure Code: USABDL Modality: US Procedure: ABDOMEN LIMITED COMPARISON: None FINDINGS: Liver: Grossly normal size and echotexture. Gallbladder: No stones, sludge, wall thickening or tenderness. Common bile duct: Slightly dilated measuring 6.8 mm. . Pancreas: Normal Other: Visualized portions of the right kidney are unremarkable. No right upper quadrant ascites. US/Abdomen Limited IMPRESSION: NORMAL RIGHT UPPER QUADRANT ULTRASOUND. Reading Location: [place] [id number]
== END | disposition home or self-care (01) ==
LOC: US 09:17
PROVIDERS: PCP Nurse Practitioner Family
DX: R10.11 Right upper quadrant pain (principal)
CPT/HCPCS: 76705

== ENCOUNTER → 2025-11-29 | Outpatient (CLI) | payer MEDICARE, SELFPAY ==
--- NOTE | 2025-11-29 08:37 | NM_ITS ---
PROCEDURE: BONE SCAN WHOLE BODY 11/29/2025 REASON FOR EXAM: R SIDE RIB POSTERIOR STERNAL PAIN H/O BREAST CA TECHNIQUE: Procedure Code: NMBO Modality: NM Procedure: BONE SCAN WHOLE BODY Whole-body bone scan with anterior and posterior imaging. RADIOPHARMACEUTICAL: 28 mCi Technetium-99m MDP IV COMPARISON: PA and lateral chest x-ray of 04/23/2025. FINDINGS: Degenerative changes are seen throughout the spine, thoracic levoscoliosis is again noted. Significant increased uptake is seen asymmetrically in the left knee; recommend clinical and historical correlation.. Plain film correlation may be obtained if clinically indicated. A focus of increased uptake is seen in the mid left tibia; recommend plain film correlation if this is not a known process. Increased uptake in the lateral right midfoot is seen. Although this may represent degenerative changes, cannot exclude traumatic process; recommend clinical and historical correlation. Plain film correlation may be obtained if clinically appropriate. Bilateral acromioclavicular joint degenerative changes are noted. No focus significant increased uptake is seen of the sternum. No rib focus of abnormal uptake is noted. NM/Bone Scan Whole Body IMPRESSION: 1. No significant abnormal uptake is seen in the clinically concerning right ri bs and sternum. 2. No specific findings are seen to suggest the presence of osseous metastatic disease. 3. Additional findings as described and discussed above. Reading Location: [place] [id number]
== END | disposition home or self-care (01) ==
LOC: NM 08:37
PROVIDERS: PCP Nurse Practitioner Family; Referring Provider Nurse Practitioner Family; Visit Provider Nurse Practitioner Family
DX: R07.89 Other chest pain (principal); Z85.3 Personal history of malignant neoplasm of breast
CPT/HCPCS: 78306; A9503